=== PATIENT | male | born 1975 | race Caucasian/White ===

== ENCOUNTER → 2020-07-16 09:26 | Outpatient (BNVA) | payer MEDICAID, SELFPAY | PROVIDERS: PCP Internal Medicine; Visit Provider Physician Assistant | DX: K62.5 Hemorrhage of anus and rectum (principal); K59.09 Other constipation; B19.20 Unspecified viral hepatitis C without hepatic coma | CPT/HCPCS: 99212 ==

== ENCOUNTER 2020-07-17 11:42 | Outpatient (REF) | payer MEDICAID, SELFPAY ==
--- NOTE | ~2020-07-17 | XR_ITS ---
EXAMINATION: XR ABDOMEN KUB CLINICAL INDICATION: Abdominal distention COMPARISON: None TECHNIQUE: AP view of the abdomen. FINDINGS: There is stool throughout the colon suggestive of severe constipation. There are no dilated loops of bowel to suggest obstruction. There is no evidence of free air. No calcifications are seen. Bony structures are unremarkable. XR/XR KUB IMPRESSION: Severe constipation.
[2020-07-17 14:05] LABS: MANUAL DIFF FLAG NO
[2020-07-17 14:09] LABS: Basophils Absolute Auto 0.1 X10*3/uL (0.0-0.2); Basophils Percent Auto 0.7 % (0-2); Eosinophils Absolute Auto 0.2 X10*3/uL (0.0-0.4); Eosinophils Percent Auto 2.7 % (0-4); Hematocrit 46.2 % (42-52); Hemoglobin 15.5 g/dl (14.0-18.0); Imm Gran Abs Auto 0.04 X10*3/uL (0.00-0.03); Imm Gran Pct Auto 0.5 % (0.0-0.4); Lymphocytes Absolute Auto 2.4 X10*3/uL (1.2-4.9); Mean Corpuscular HGB Conc 33.5 g/dl (31.0-36.0); Mean Corpuscular Hemoglobin 28.8 pg (27.0-33.0); Mean Corpuscular Volume 85.7 fL (80-98); Mean Platelet Volume 10.1 fL (9.4-12.4); Monocytes Absolute Auto 0.7 X10*3/uL (0.1-1.2); Monocytes Percent Auto 8.8 % (2-11); Neutrophils Absolute Auto 4.8 X10*3/uL (2.0-8.3); Neutrophils Percent Auto 58.3 % (45-73); Platelet Count 276 X10*3/uL (160-400); Red Blood Count 5.39 X10*6/uL (4.60-5.80); Red Cell Distribution Width 13.7 % (11.0-16.0); White Blood Count 8.2 X10*3/uL (4.8-10.8)
[2020-07-17 14:42] LABS: Alanine Aminotransferase 43 U/L (0-40); Albumin Level 4.1 g/dL (3.5-5.0); Alkaline Phosphatase 88 U/L (39-117); Anion Gap 15 (12-20); Aspartate Amino Transferase 35 U/L (5-37); Blood Urea Nitrogen 21 mg/dL (9-16); Calcium 8.8 mg/dL (8.4-10.2); Carbon Dioxide 23 mmol/L (22-29); Chloride 106 mmol/L (96-108); Estimated Glomerular Filt Rate > 60; Glucose Random 81 mg/dL (60-115); Potassium 4.7 mmol/L (3.3-5.1); Sodium 139 mmol/L (135-145); Total Protein 7.9 g/dL (6.5-8.0)
[2020-07-17 15:04] LABS: Thyroid Stimulating Hormone 0.83 uIU/mL (0.32-4.0)
[2020-07-19 08:06] LABS: HCV Log PCR 6.45 Log IU/mL (NOT DETECTED); HepC Viral Load 2800000 IU/mL (NOT DETECTED)
[2020-07-21 21:36] LABS: Hepatitis C Genotype 1a
== END 2020-07-17 11:43 | disposition home or self-care (01) ==
LOC: HO.XRAY 11:42
PROVIDERS: PCP Internal Medicine; Visit Provider Physician Assistant
DX: R10.11 Right upper quadrant pain (principal); R74.01 Elevation of levels of liver transaminase levels; B19.20 Unspecified viral hepatitis C without hepatic coma; K59.09 Other constipation; R14.0 Abdominal distension (gaseous)
CPT/HCPCS: 36415; 74018; 80053; 84443; 85025; 86704; 86706; 86709; 86803; 87340; 87522; 87902

== ENCOUNTER → 2020-08-13 10:52 | Outpatient (BNVA) | payer MEDICAID, SELFPAY | PROVIDERS: PCP Internal Medicine; Visit Provider Physician Assistant | DX: K59.09 Other constipation (principal); B19.20 Unspecified viral hepatitis C without hepatic coma | CPT/HCPCS: 99212 ==

== ENCOUNTER → 2020-09-11 08:39 | Outpatient (BNVA) | payer MEDICAID, SELFPAY | PROVIDERS: PCP Internal Medicine; Referring Provider Internal Medicine; Visit Provider Physician Assistant | DX: B19.20 Unspecified viral hepatitis C without hepatic coma (principal); I10 Essential (primary) hypertension; H53.9 Unspecified visual disturbance | CPT/HCPCS: 99212 ==

== ENCOUNTER 2020-09-11 09:26 | Emergency (ER) | payer MEDICAID, SELFPAY ==
--- NOTE | ~2020-09-11 | CT_ITS ---
EXAMINATION: CT HEAD WITHOUT CONTRAST CLINICAL INFORMATION: Headache with hypertension x1 week COMPARISON: None TECHNIQUE: Contiguous axial imaging was performed from the skull base to vertex without intravenous administration of contrast. This CT examination was performed using dose optimization techniques as appropriate, variously including the following: *Automated exposure control *Adjustment of mA and/or kV according to patient size (this includes techniques or standardized protocols for targeted exams where dose is matched to indication/reason for exam; i.e. extremities or head) *Use of iterative reconstruction technique DLP: Shotty to 6 mGy-cm FINDINGS: There is no evidence of acute intracranial hemorrhage or territorial infarction. No abnormal mass effect or midline shift is seen. Jackson to white matter differentiation is well preserved. No extra-axial fluid collections are identified. The lateral ventricles are symmetrical in size when mildly enlarged. The jackson to white matter differentiation is maintained normal. The osseous structures and soft tissues are normal. The mastoid air cells and visualized portions of the paranasal sinuses are well aerated. CT/CT head/brain wo con IMPRESSION: No acute intracranial process seen.
--- NOTE | ~2020-09-11 | XR_ITS ---
EXAMINATION: XR CHEST CLINICAL INFORMATION: Headache and hypertension COMPARISON: Previous chest x-ray most recent May 2018 TECHNIQUE: Frontal view of the chest was obtained. FINDINGS: The cardiac and mediastinal contours are normal. The lungs are clear. There is no pleural effusion or pneumothorax. Bony structures are normal. XR/XR chest 1V IMPRESSION: Unremarkable examination.
[2020-09-11 09:43] VITALS: BP 158/115; PULSE 77; RESP 16; TEMP 36.9; O2SAT 96; BMI 27.3
[2020-09-11 10:41] VITALS: BP 162/109; PULSE 69; RESP 19; TEMP 36.6; O2SAT 95
--- NOTE | 2020-09-11 10:52 | PC.NURSE ---
Pt alert, oriented, neuros intact, reports heading x1 wk, Sent to ed by GI doctor for elevated BP. Current BP 162/109. Patient resting quietly awaiting ED provider.
[2020-09-11 11:24] LABS: MANUAL DIFF FLAG NO
[2020-09-11 11:25] LABS: Basophils Absolute Auto 0.1 X10*3/uL (0.0-0.2); Basophils Percent Auto 0.9 % (0-2); Eosinophils Absolute Auto 0.3 X10*3/uL (0.0-0.4); Eosinophils Percent Auto 4.7 % (0-4); Hematocrit 47.6 % (42-52); Imm Gran Abs Auto 0.03 X10*3/uL (0.00-0.03); Imm Gran Pct Auto 0.4 % (0.0-0.4); Lymphocytes Percent Auto 28.2 % (20-40); Mean Corpuscular HGB Conc 33.6 g/dl (31.0-36.0); Mean Corpuscular Hemoglobin 29.5 pg (27.0-33.0); Mean Corpuscular Volume 87.7 fL (80-98); Mean Platelet Volume 10.2 fL (9.4-12.4); Monocytes Absolute Auto 0.6 X10*3/uL (0.1-1.2); Monocytes Percent Auto 8.6 % (2-11); Neutrophils Percent Auto 57.2 % (45-73); Platelet Count 243 X10*3/uL (160-400); Red Blood Count 5.43 X10*6/uL (4.60-5.80); Red Cell Distribution Width 15.3 % (11.0-16.0)
[2020-09-11] MEDS: Butalb/Acetamin/Caff 50/325/40 TABLET 2 TAB PO (11:52)
[2020-09-11 11:53] LABS: Anion Gap 13 (12-20); Blood Urea Nitrogen 14 mg/dL (9-16); Calcium 9.4 mg/dL (8.4-10.2); Carbon Dioxide 27 mmol/L (22-29); Chloride 106 mmol/L (96-108); Estimated Glomerular Filt Rate > 60; Glucose Random 84 mg/dL (60-115); Potassium 4.2 mmol/L (3.3-5.1); Sodium 142 mmol/L (135-145)
--- NOTE | 2020-09-11 11:54 | ECG_ITS ---
Test Reason : GENERAL MEDICINE Blood Pressure : / mmHG Vent. Rate : 058 BPM Atrial Rate : 058 BPM P-R Int : 176 ms QRS Dur : 096 ms QT Int : 426 ms P-R-T Axes : 041 015 028 degrees QTc Int : 418 ms Sinus bradycardia Minimal voltage criteria for LVH, may be normal variant Borderline ECG When compared with ECG of 08-AUG-2019 10:40, No significant change was found Referred By: Ani Osei Electronically Signed By:FERNANDA JUSTICE MD
[2020-09-11 12:09] VITALS: BP 178/104; PULSE 73
[2020-09-11] MEDS: lisinopriL 5 MG TABLET PO (12:09)
[2020-09-11 12:51] VITALS: BP 166/99; PULSE 64; RESP 20; O2SAT 97
[2020-09-11 13:22] VITALS: BP 159/95; PULSE 60; RESP 18; O2SAT 98
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
== END 2020-09-11 14:55 | disposition home or self-care (01) ==
PROVIDERS: Emergency Provider Emergency Medicine Emergency Medical Services; PCP Internal Medicine
DX: R51.9 Headache, unspecified (principal); F33.1 Major depressive disorder, recurrent, moderate; I10 Essential (primary) hypertension; H53.8 Other visual disturbances; Z79.899 Other long term (current) drug therapy; Z87.891 Personal history of nicotine dependence
CPT/HCPCS: 36415; 70450; 71045; 80048; 85025; 93005; 99284; 99285

== ENCOUNTER 2020-09-17 13:00 | Emergency (ER) | payer MEDICAID, SELFPAY ==
--- NOTE | ~2020-09-17 | XR_ITS ---
EXAMINATION: XR CHEST CLINICAL INFORMATION: Chest pain COMPARISON: Chest 09/11/2020 TECHNIQUE: Frontal view of the chest was obtained. FINDINGS: The lungs are well-expanded with platelike atelectasis left CP angle. Heart size and pulmonary vascularity is normal. No gross bony abnormality seen. XR/XR chest 1V IMPRESSION: Platelike atelectasis left CP angle. Otherwise unremarkable chest exam.
[2020-09-17 13:22] VITALS: BP 153/108; PULSE 74; RESP 16; TEMP 36.6; O2SAT 97; BMI 26.4
[2020-09-17 13:26] VITALS: BP 153/107; PULSE 68
--- NOTE | 2020-09-17 13:42 | ECG_ITS ---
Test Reason : CHEST PAIN Blood Pressure : / mmHG Vent. Rate : 067 BPM Atrial Rate : 067 BPM P-R Int : 162 ms QRS Dur : 096 ms QT Int : 404 ms P-R-T Axes : 040 013 020 degrees QTc Int : 426 ms Normal sinus rhythm Minimal voltage criteria for LVH, may be normal variant Borderline ECG When compared with ECG of 11-SEP-2020 12:35, No significant change was found Referred By: Noemí Lovett Electronically Signed By:FERMÍN SANTACRUZ
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
[2020-09-17 14:31] VITALS: BP 171/122; PULSE 75
[2020-09-17] MEDS: lisinopriL 20 MG TABLET PO (14:31)
[2020-09-17] MEDS: Ketorolac Tromethamine 60 MG/2 ML VIAL IM (14:32)
[2020-09-17 14:33] LABS: Imm Gran Abs Auto 0.03 X10*3/uL (0.00-0.03); Imm Gran Pct Auto 0.4 % (0.0-0.4); MANUAL DIFF FLAG SCAN; PLT CLUMP 1; Red Blood Count 5.62 X10*6/uL (4.60-5.80); SCAN SMEAR FLAG 1
[2020-09-17 14:35] LABS: Basophils Absolute Auto 0.1 X10*3/uL (0.0-0.2); Eosinophils Absolute Auto 0.2 X10*3/uL (0.0-0.4); Eosinophils Percent Auto 2.2 % (0-4); Hematocrit 49.8 % (42-52); Hemoglobin 16.5 g/dl (14.0-18.0); Lymphocytes Absolute Auto 2.2 X10*3/uL (1.2-4.9); Mean Corpuscular HGB Conc 33.1 g/dl (31.0-36.0); Mean Corpuscular Hemoglobin 29.4 pg (27.0-33.0); Mean Corpuscular Volume 88.6 fL (80-98); Monocytes Absolute Auto 0.6 X10*3/uL (0.1-1.2); Monocytes Percent Auto 7.1 % (2-11); Neutrophils Absolute Auto 5.3 X10*3/uL (2.0-8.3); Neutrophils Percent Auto 63.3 % (45-73); Red Cell Distribution Width 15.2 % (11.0-16.0); White Blood Count 8.3 X10*3/uL (4.8-10.8)
[2020-09-17 14:52] LABS: Anion Gap 16 (12-20); Blood Urea Nitrogen 12 mg/dL (9-16); Calcium 10.1 mg/dL (8.4-10.2); Carbon Dioxide 22 mmol/L (22-29); Chloride 106 mmol/L (96-108); Estimated Glomerular Filt Rate > 60; Glucose Random 84 mg/dL (60-115); Potassium 4.1 mmol/L (3.3-5.1); Sodium 140 mmol/L (135-145)
[2020-09-17 14:57] LABS: SLIDE REVIEW VERIFIED; Troponin-I High Sensitivity 8.6 ng/L (<3.5-35.0)
[2020-09-17 15:55] VITALS: BP 177/112; PULSE 79
[2020-09-17] MEDS: Metoprolol Succinate ER 100 MG TAB.ER.24H PO (15:55)
[2020-09-17 16:09] VITALS: BP 156/99; PULSE 70; RESP 16; O2SAT 96
== END 2020-09-17 16:49 | disposition home or self-care (01) ==
PROVIDERS: Nurse Practitioner Family; Emergency Provider Emergency Medicine; PCP Internal Medicine
DX: I10 Essential (primary) hypertension (principal); R07.9 Chest pain, unspecified; R51.9 Headache, unspecified; B19.20 Unspecified viral hepatitis C without hepatic coma; Z79.899 Other long term (current) drug therapy
CPT/HCPCS: 36415; 71045; 80048; 84484; 85025; 93005; 96372; 96374; 99284; J1885

== ENCOUNTER 2020-09-30 09:39 | Outpatient (REF) | payer MEDICAID, SELFPAY ==
--- NOTE | ~2020-09-30 | US_ITS ---
EXAMINATION: US ABDOMEN LIMITED WITH LIVER ELASTOGRAPHY CLINICAL INFORMATION: Unspecified hepatitis C without hepatic coma, B19.20. COMPARISON: Ultrasound abdomen 11/23/2011. TECHNIQUE: Real-time imaging of the abdominal viscera. Noninvasive ultrasound liver fibrosis assessment is performed using Marci ElastPQ point quantification shear wave elastography (pSWE) with a C5-2 MHz transducer. Multiple elastography samples are obtained. FINDINGS: PANCREAS: The pancreas is obscured by overlying gas. LIVER: The liver demonstrates normal size, contour and echogenicity. No focal lesion or intrahepatic biliary duct dilatation. The right lobe measures 16.1 cm in length. The left lobe measures 10.2 cm in length. Portal flow is hepatopedal. Shear wave liver elastography median stiffness is 1.17 m/s (reference: Normal median stiffness is 1.3 m/s or less). IQR/median stiffness to assess sampling precision is 0.06 (reference: Good quality data set is IQR/median stiffness of 0.15 or less). GALLBLADDER: Normal. The gallbladder is physiologically distended without evidence of stones, sludge, polyps, wall thickening or pericholecystic fluid. COMMON BILE DUCT: Normal in caliber measuring 0.4 cm in diameter. RIGHT KIDNEY: No hydronephrosis. There is an echogenic nonobstructive 0.4 cm calculus without caliectasis. No additional lesions are seen. The kidney measures 10.8 cm in maximum dimension. LEFT KIDNEY: There is no hydronephrosis. There is normal left renal cortex thickness. Kidney measures 11.3 cm in length. No echogenic stones, cysts or hydronephrosis is seen. SPLEEN: Spleen measures 10.7 cm in length and appears unremarkable. FREE FLUID: None. US/US abdomen [place] w elastography IMPRESSION: Normal hepatic echogenicity without focal lesion. Nonobstructive echogenic stone upper pole right kidney. Pancreas is not seen well. LIVER ELASTOGRAPHY: Median stiffness measures 1.17 cm and is normal. REFERENCE: Society of Radiologists in Ultrasound Liver Stiffness Thresholds (2020): LIVER STIFFNESS THRESHOLDS: *Liver Stiffness equal or less than 1.3 m/s: High probability of being normal. *Liver Stiffness less than 1.7 m/s: In the absence of other known clinical signs, rules out compensated advanced chronic liver disease. *Liver Stiffness 1.7-2.1 m/s: Suggestive of compensated advanced chronic liver disease but need further test for confirmation. *Liver Stiffness over 2.1 m/s: Rules in compensated advanced chronic liver disease. *Liver Stiffness over 2.4 m/s: Suggestive of clinically significant portal hypertension. QUALITY OF DATA SET: *IQR/Median value equal or less than 0.15 implies a quality data set. *IQR/Median value over 0.15 implies a poor quality data set. SIGNIFICANT CHANGE FROM PRIOR EXAM: Significant change if liver stiffness measurement is 10% or greater from prior exam. OTHER CONSIDERATIONS: The stage of liver fibrosis may be overestimated in the setting of acute hepatitis, liver inflammation, elevated liver function tests, hepatic vascular congestion, obstructive cholestasis, non-fasting state, and infiltrative diseases such as amyloidosis and lymphoma. In some patients with NAFLD, the liver stiffness thresholds for compensated advanced chronic liver disease may be lower. In causes other than viral hepatitis and NAFLD, liver stiffness thresholds are not well established.
== END 2020-09-30 09:40 | disposition home or self-care (01) ==
LOC: HO.US 09:39
PROVIDERS: Visit Provider Physician Assistant
DX: B19.20 Unspecified viral hepatitis C without hepatic coma (principal)
CPT/HCPCS: 76705; 76981

== ENCOUNTER → 2020-10-21 08:58 | Outpatient (BNVA) | payer MEDICAID, SELFPAY | PROVIDERS: PCP Internal Medicine; Referring Provider Internal Medicine; Visit Provider Physician Assistant | DX: B19.20 Unspecified viral hepatitis C without hepatic coma (principal); K21.9 Gastro-esophageal reflux disease without esophagitis | CPT/HCPCS: 99212 ==

== ENCOUNTER 2020-10-22 10:52 | Outpatient (REF) | payer MEDICAID, SELFPAY ==
[2020-10-23 08:23] LABS: HBS Num1 81.99 mIU/mL (0-7.99); HBc Num1 0.76 S/CO (0.00-0.79); HBsAGNum1 0.29 S/CO (0.00-0.99); Hepatitis A Antibody IgM 0.62 Index (0-0.79); Hepatitis B Core Antibody Nonreactive (Nonreactive); Hepatitis B Surface Antigen Negative (Negative); ~Hepatitis A Antibody IgM Nonreactive (Nonreactive); ~Hepatitis B Surface Antibody REACTIVE (Nonreactive)
[2020-10-23 08:44] LABS: ~HepC Num1 16.92 S/CO (0.00-0.79); ~Hepatitis C Antibody Reactive (Nonreactive)
[2020-10-25 11:31] LABS: HCV Log PCR 6.55 Log IU/mL (NOT DETECTED); HepC Viral Load 3520000 IU/mL (NOT DETECTED)
[2020-10-30 19:28] LABS: FIB-ALT 53 U/L (9-46); FIB-Alpha-2-Macroglobulin 310 mg/dL (106-279); FIB-Apolipoprotein A1 140 mg/dL (94-176); FIB-GGT 45 U/L (3-95); FIB-Haptoglobin 131 mg/dL (43-212); FIB-Total Bilirubin 0.4 mg/dL (0.2-1.2); Liver Fibrosis Stage F1-F2; Nec Inflam Act Grade A1; Nec Inflam Act Score 0.34
== END 2020-10-22 10:53 | disposition home or self-care (01) ==
LOC: HO.LAB 10:52
PROVIDERS: PCP Internal Medicine; Visit Provider Physician Assistant
DX: Z01.84 Encounter for antibody response examination (principal); Z11.59 Encounter for screening for other viral diseases; B19.20 Unspecified viral hepatitis C without hepatic coma; R79.89 Other specified abnormal findings of blood chemistry
CPT/HCPCS: 36415; 81596; 86704; 86706; 86709; 86803; 87340; 87522

== ENCOUNTER 2020-12-03 09:20 | Emergency (ER) | payer MEDICAID, SELFPAY ==
--- NOTE | ~2020-12-03 | US_ITS ---
EXAMINATION: US SCROTUM CLINICAL INFORMATION: Bilateral scrotal pain. COMPARISON: CT scan of same day TECHNIQUE: A sonogram of the scrotum was performed assessing stoner-scale appearance and color Doppler flow. Spectral Doppler analysis of the arterial and venous flow were performed in the testes bilaterally. FINDINGS: RIGHT: Right testicle measures 5.4 x 3.0 x 2.7 cm, volume 2.3 mL. No focal testicular parenchymal lesions are visualized. Spectral Doppler analysis of the arterial and venous flow is normal in the right testis. Right epididymal head is normal in size. No right hydrocele or varicocele is seen. Right epididymal Doppler flow is mildly increased. LEFT: Left testicle measures 5.1 x 2.9 x 3.0 cm, volume 24 mL. No focal testicular parenchymal lesions are visualized. Spectral Doppler analysis of the arterial and venous flow is normal in the left testis. Left epididymal head is normal in size. No left hydrocele or varicocele is seen. Left epididymal Doppler flow is mildly increased US/US scrotum doppler IMPRESSION: Normal testicles bilaterally. Mildly increased vascularity within the epididymal tails bilaterally suggestive of acute epididymitis.
--- NOTE | ~2020-12-03 | CT_ITS ---
EXAMINATION: CT ABDOMEN AND PELVIS WITHOUT CONTRAST CLINICAL INFORMATION: Left flank/abdominal pain. COMPARISON: None TECHNIQUE: Multidetector volumetric imaging was performed from the superior aspect of the liver through the pubic symphysis. Sagittal and coronal reformatted images were obtained on the technologist's workstation. This CT examination was performed using dose optimization techniques as appropriate, variously including the following: *Automated exposure control *Adjustment of mA and/or kV according to patient size (this includes techniques or standardized protocols for targeted exams where dose is matched to indication/reason for exam; i.e. extremities or head) *Use of iterative reconstruction technique DLP: 657 mGy-cm FINDINGS: LUNG BASES: There is a left basilar and lingular atelectasis and/or scarring. LIVER, GALLBLADDER, AND BILIARY TREE: The liver is normal in size, shape, and attenuation. No focal hepatic lesion or biliary ductal dilatation is present. The gallbladder is unremarkable with no evidence of radiopaque gallstones, gallbladder wall thickening, or obvious pericholecystic inflammatory changes. PANCREAS: Unremarkable. SPLEEN: Unremarkable. ADRENAL GLANDS: Unremarkable. KIDNEYS AND URETERS: The kidneys are normal in size, shape, and attenuation. There is a 7 mm nonobstructive radiopaque calculi mid pole calyx right kidney. In addition there are 2 mm radiopaque calculi upper pole, 6 mm mid pole and 2 mm lower pole right kidney calculi without caliectasis. There is nonobstructive 4 mm radiopaque calculi upper, 4 mm lower pole left renal calculi without caliectasis or hydronephrosis. There is no ureteral dilatation. BLADDER: Unremarkable. GASTROINTESTINAL TRACT: There are scattered diverticuli in the sigmoid colon with a residual oral contrast. Scattered stool is seen in the right colon without distention. The small bowel loops are normal caliber. Appendix is not visualized. No inflammatory process seen in the abdomen. There is no free air or free fluid. ABDOMINAL WALL: A small amount of hernia containing fat is present LYMPH NODES: There are small precaval 8 mm and 1 cm lymph nodes on axial image 23/3 and axial image 26/3. The IVC is significantly narrowed in the infrahepatic segment.. VASCULAR: Unremarkable. PELVIC VISCERA: The prostate gland is normal size. The periprostatic gland planes are preserved. No abnormal lymph nodes seen. OSSEOUS STRUCTURES: There are degenerative disc changes with vacuum disc phenomenon and spondylosis L5-S1 disc level. No lytic process. CT/CT abdomen pelvis wo con IMPRESSION: Nonobstructive bilateral radiopaque renal calculi no hydronephrosis. Scattered sigmoid diverticulosis without diverticulitis. Small precaval infrahepatic segment lymph nodes of unknown etiology. Degenerative disc changes with spondylosis L5-S1 disc level.
--- NOTE | ~2020-12-03 | US_ITS ---
EXAMINATION: US SCROTUM CLINICAL INFORMATION: Bilateral scrotal pain. COMPARISON: CT scan of same day TECHNIQUE: A sonogram of the scrotum was performed assessing stoner-scale appearance and color Doppler flow. Spectral Doppler analysis of the arterial and venous flow were performed in the testes bilaterally. FINDINGS: RIGHT: Right testicle measures 5.4 x 3.0 x 2.7 cm, volume 2.3 mL. No focal testicular parenchymal lesions are visualized. Spectral Doppler analysis of the arterial and venous flow is normal in the right testis. Right epididymal head is normal in size. No right hydrocele or varicocele is seen. Right epididymal Doppler flow is mildly increased. LEFT: Left testicle measures 5.1 x 2.9 x 3.0 cm, volume 24 mL. No focal testicular parenchymal lesions are visualized. Spectral Doppler analysis of the arterial and venous flow is normal in the left testis. Left epididymal head is normal in size. No left hydrocele or varicocele is seen. Left epididymal Doppler flow is mildly increased US/US scrotum IMPRESSION: Normal testicles bilaterally. Mildly increased vascularity within the epididymal tails bilaterally suggestive of acute epididymitis.
[2020-12-03 10:56] VITALS: BP 148/104; PULSE 70; RESP 16; TEMP 37.1; O2SAT 95; BMI 27.1
[2020-12-03 11:33] LABS: MANUAL DIFF FLAG NO
[2020-12-03 11:38] LABS: Basophils Absolute Auto 0.1 X10*3/uL (0.0-0.2); Basophils Percent Auto 0.8 % (0-2); Eosinophils Absolute Auto 0.2 X10*3/uL (0.0-0.4); Eosinophils Percent Auto 2.9 % (0-4); Hematocrit 42.8 % (42-52); Hemoglobin 14.3 g/dl (14.0-18.0); Imm Gran Abs Auto 0.02 X10*3/uL (0.00-0.03); Imm Gran Pct Auto 0.3 % (0.0-0.4); Lymphocytes Absolute Auto 1.8 X10*3/uL (1.2-4.9); Lymphocytes Percent Auto 27.4 % (20-40); Mean Corpuscular HGB Conc 33.4 g/dl (31.0-36.0); Mean Corpuscular Hemoglobin 29.7 pg (27.0-33.0); Mean Platelet Volume 9.5 fL (9.4-12.4); Monocytes Absolute Auto 0.5 X10*3/uL (0.1-1.2); Monocytes Percent Auto 7.1 % (2-11); Neutrophils Percent Auto 61.5 % (45-73); Platelet Count 275 X10*3/uL (160-400); Red Blood Count 4.81 X10*6/uL (4.60-5.80); Red Cell Distribution Width 14.4 % (11.0-16.0); White Blood Count 6.5 X10*3/uL (4.8-10.8)
[2020-12-03 12:04] LABS: Alanine Aminotransferase 49 U/L (0-40); Albumin Level 4.3 g/dL (3.5-5.0); Alkaline Phosphatase 73 U/L (39-117); Anion Gap 12 (12-20); Aspartate Amino Transferase 40 U/L (5-37); Bilirubin Total 0.7 mg/dL (0.0-1.0); Blood Urea Nitrogen 19 mg/dL (9-16); Calcium 9.4 mg/dL (8.4-10.2); Carbon Dioxide 23 mmol/L (22-29); Chloride 109 mmol/L (96-108); Estimated Glomerular Filt Rate > 60; Glucose Random 89 mg/dL (60-115); Potassium 4.1 mmol/L (3.3-5.1); Sodium 140 mmol/L (135-145); Total Protein 7.8 g/dL (6.5-8.0)
[2020-12-03] MEDS: Ketorolac Tromethamine 15 MG/ML VIAL 30 MG IM (12:30)
[2020-12-03] MEDS: Morphine Sulfate 4 MG/ML CARTRIDGE IM (12:30)
[2020-12-03] MEDS: Ondansetron ODT 4 MG TAB.RAPDIS TRANSLINGU (12:30)
--- NOTE | 2020-12-03 12:37 | PC.NURSE ---
patient medicated for 10/10 lt abd/back pain per order, urine obtained, will continue to monitor.
[2020-12-03 12:48] LABS: Glucose Urine UA NEG (NEG); Leukocyte Esterase Urine NEG (NEG); Nitrite Urine NEG (NEG); Specific Gravity - Urine <= 1.005 (1.005-1.025); Urine Blood NEG (NEG); Urine Ketones NEG (NEG); Urine Protein NEG (NEG-TRACE)
[2020-12-03 12:50] LABS: Appearance Urine CLEAR; Color Urine YELLOW
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
[2020-12-03 13:15] LABS: Amphetamine Screen Urine Not Detected (Not Detect); Barbiturates, Urine Not Detected (Not Detect); Benzodiazepines Screen Urine Not Detected (Not Detect); Cannabinoid Screen Urine Not Detected (Not Detect); Cocaine Screen Urine Not Detected (Not Detect); Opiate Screen Urine Not Detected (Not Detect); Phencyclidine Screen Urine Not Detected (Not Detect)
--- NOTE | 2020-12-03 13:15 | ED.ABDPAIN ---
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 Tobacco Use of substances other than those prescribed or required for medical reasons: No Advance Directives: Yes Advance Directives Information Provided: Yes Advance Directives on File: No Current occupational status: disabled <DEANA Barnes - Last Filed: 12/03/20 17:19>
[2020-12-03 13:20] VITALS: BP 151/101; PULSE 59; RESP 16; TEMP 36.8; O2SAT 97
[2020-12-03 16:46] VITALS: BP 154/97; PULSE 72; RESP 16; TEMP 36.8; O2SAT 96
[2020-12-03] MEDS: cefTRIAXone sodium 500 MG, Lidocaine HCl 1 % MPF 1 ML IM (17:27)
[2020-12-04 10:16] LABS: CT PCR NOT DETECTED (Not Detect.); NG PCR NOT DETECTED (Not Detect.)
== END 2020-12-03 17:43 | disposition home or self-care (01) ==
PROVIDERS: Physician Assistant Medical; Emergency Provider Emergency Medicine Emergency Medical Services; PCP Internal Medicine
DX: R10.9 Unspecified abdominal pain (principal); N20.0 Calculus of kidney; K57.30 Diverticulosis of large intestine without perforation or abscess without bleeding; N45.1 Epididymitis; R93.5 Abnormal findings on diagnostic imaging of other abdominal regions, including retroperitoneum; F41.9 Anxiety disorder, unspecified; Z79.899 Other long term (current) drug therapy
CPT/HCPCS: 36415; 74176; 76870; 80053; 80307; 81003; 82248; 85025; 87491; 87591; 93975; 96372; 99284; J0696; J1885; J2270

== ENCOUNTER 2020-12-17 13:56 | Emergency (ER) | payer MEDICAID, SELFPAY ==
--- NOTE | ~2020-12-17 | US_ITS ---
EXAMINATION: US SCROTUM US SCROTUM DOPPLER CLINICAL INFORMATION: Testicular pain. Rule out epididymitis. Testicular pain, rule out torsion. COMPARISON: 12/03/2020 TECHNIQUE: A sonogram of the scrotum was performed assessing stoner-scale appearance and color Doppler flow. Spectral Doppler analysis of the arterial and venous flow were performed in the testes bilaterally. FINDINGS: RIGHT: Right testicle measures 5.3 x 2.3 x 3.5 cm, volume 22 mL. No focal testicular parenchymal lesions are visualized. Spectral Doppler analysis of the arterial and venous flow is normal in the right testis. Right epididymal head is normal in size. Trace right hydrocele. No varicocele is seen. Right epididymal Doppler flow is normal. LEFT: Left testicle measures 5.0 x 2.6 x 3.2 cm, volume 22 mL. No focal testicular parenchymal lesions are visualized. Spectral Doppler analysis of the arterial and venous flow is normal in the left testis. Left epididymal head is normal in size. Trace left hydrocele. No varicocele is seen. Left epididymal Doppler flow is normal. US/US scrotum IMPRESSION: Trace bilateral hydroceles. No findings to suggest epididymitis or testicular torsion.
--- NOTE | ~2020-12-17 | US_ITS ---
EXAMINATION: US SCROTUM US SCROTUM DOPPLER CLINICAL INFORMATION: Testicular pain. Rule out epididymitis. Testicular pain, rule out torsion. COMPARISON: 12/03/2020 TECHNIQUE: A sonogram of the scrotum was performed assessing stoner-scale appearance and color Doppler flow. Spectral Doppler analysis of the arterial and venous flow were performed in the testes bilaterally. FINDINGS: RIGHT: Right testicle measures 5.3 x 2.3 x 3.5 cm, volume 22 mL. No focal testicular parenchymal lesions are visualized. Spectral Doppler analysis of the arterial and venous flow is normal in the right testis. Right epididymal head is normal in size. Trace right hydrocele. No varicocele is seen. Right epididymal Doppler flow is normal. LEFT: Left testicle measures 5.0 x 2.6 x 3.2 cm, volume 22 mL. No focal testicular parenchymal lesions are visualized. Spectral Doppler analysis of the arterial and venous flow is normal in the left testis. Left epididymal head is normal in size. Trace left hydrocele. No varicocele is seen. Left epididymal Doppler flow is normal. US/US scrotum doppler IMPRESSION: Trace bilateral hydroceles. No findings to suggest epididymitis or testicular torsion.
[2020-12-17 14:11] VITALS: BP 136/84; PULSE 64; RESP 16; TEMP 36.8; O2SAT 98; BMI 27.1
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
[2020-12-17 16:22] LABS: Glucose Urine UA NEG (NEG); Leukocyte Esterase Urine NEG (NEG); Nitrite Urine NEG (NEG); Specific Gravity - Urine >= 1.030 (1.005-1.025); UACC Culture Trigger NO; Urine Blood TRACE (NEG); Urine Ketones NEG (NEG); Urine Protein NEG (NEG-TRACE)
[2020-12-17 16:23] LABS: Appearance Urine CLEAR; Color Urine YELLOW
[2020-12-17 16:31] LABS: Bacteria Urine 1+ /LPF; WBC Urine 0 /HPF (0-4)
[2020-12-17] MEDS: Ibuprofen 600 MG TABLET PO (18:06)
[2020-12-18 10:33] LABS: CT PCR NOT DETECTED (Not Detect.); NG PCR NOT DETECTED (Not Detect.)
== END 2020-12-17 18:13 | disposition home or self-care (01) ==
PROVIDERS: Physician Assistant Medical; Emergency Provider Emergency Medicine; PCP Internal Medicine
DX: N50.811 Right testicular pain (principal); N43.3 Hydrocele, unspecified; I10 Essential (primary) hypertension; F41.9 Anxiety disorder, unspecified; B19.20 Unspecified viral hepatitis C without hepatic coma; Z79.899 Other long term (current) drug therapy
CPT/HCPCS: 76870; 81001; 87491; 87591; 93975; 99284

== ENCOUNTER → 2020-12-24 07:35 | Outpatient (BNVA) | payer MEDICAID, SELFPAY | PROVIDERS: PCP Internal Medicine; Visit Provider Physician Assistant ==

== ENCOUNTER 2021-01-01 17:35 | Inpatient (IN) | payer MEDICAID, SELFPAY ==
--- NOTE | ~2021-01-01 | CT_ITS ---
EXAMINATION: CT GI BLEED ABDOMEN/PELVIS WITHOUT AND WITH CONTRAST CLINICAL INFORMATION: Blood in stool. Abdominal pain. COMPARISON: Most recent CT abdomen/pelvis dated 12/03/2020. TECHNIQUE: Contiguous axial CT images of the abdomen and pelvis were obtained before and after the administration of 85 mL Omnipaque 350 IV contrast. Sagittal and coronal reformats were provided and reviewed. This CT examination was performed using dose optimization techniques as appropriate, variously including the following: *Automated exposure control. *Adjustment of mA and/or kV according to patient size (this includes techniques or standardized protocols for targeted exams where dose is matched to indication/reason for exam; i.e. extremities or head). *Use of iterative reconstruction technique. DOSE: 1190 mGy-cm FINDINGS: LUNG BASES: Mild bibasilar atelectasis. LIVER, GALLBLADDER, AND BILIARY TREE: The liver is normal in size, shape, and attenuation. No focal hepatic lesion or biliary ductal dilatation is present. The gallbladder is unremarkable with no evidence of radiopaque gallstones, gallbladder wall thickening, or obvious pericholecystic inflammatory changes. PANCREAS: Unremarkable. SPLEEN: Unremarkable. ADRENAL GLANDS: Unremarkable. KIDNEYS AND URETERS: The kidneys are normal in size, shape, and attenuation. Redemonstration of multiple bilateral renal stones measuring up to 0.7 cm and 1153 Hounsfield units on the right as well as 0.3 cm on the left. No ureteral stone. No hydronephrosis or hydroureter. No perinephric stranding. BLADDER: Unremarkable. GASTROINTESTINAL TRACT: Circumferential wall thickening with associated fat stranding throughout the descending colon, consistent with acute colitis. Mild associated wall enhancement. Hyperdensity within the lumen of the colon in this region on postcontrast images, which could represent wall enhancement versus minimal intraluminal hemorrhage. No evidence of perforation or abscess formation. No small or large bowel obstruction. PERITONEAL CAVITY: No intra-abdominal free air or free fluid. No intra-abdominal mass or organized fluid collection/abscess formation. ABDOMINAL WALL: No significant hernia is appreciated. LYMPH NODES: Redemonstration of multiple periportal lymph nodes, not significantly changed. No new or increasing lymphadenopathy. VASCULAR: No abdominal aortic dilatation or dissection. Unremarkable IVC. Retroaortic left renal vein. PELVIC VISCERA: The prostate and seminal vesicles are unremarkable. OSSEOUS STRUCTURES: Unremarkable. CT/CT gi bleed abd pel wo/w con IMPRESSION: 1. Circumferential wall thickening of the descending colon with associated inflammatory change, consistent with acute colitis. Findings could be related to an infectious or inflammatory etiology. An ischemic process is thought less likely. Hyperdensity on postcontrast imaging associated with the lumen in this region, which may be related to post contrast-enhancement. Intraluminal bladder blood products could also be considered. No evidence of perforation or abscess formation. 2. Multiple bilateral renal stones appear similar when compared to the prior examination. No ureteral stone. No hydronephrosis or hydroureter. 3. Redemonstration of prominent periportal lymph nodes, unchanged. No new or increasing lymphadenopathy.
[2021-01-01 18:03] VITALS: BP 141/89; PULSE 75; RESP 18; TEMP 37; O2SAT 97; BMI 22.2
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
[2021-01-01 20:23] VITALS: BP 127/87; PULSE 62; RESP 16; TEMP 37; O2SAT 96
--- NOTE | 2021-01-01 20:53 | ECG_ITS ---
Test Reason : GI BLEED Blood Pressure : / mmHG Vent. Rate : 071 BPM Atrial Rate : 071 BPM P-R Int : 166 ms QRS Dur : 098 ms QT Int : 394 ms P-R-T Axes : 046 029 015 degrees QTc Int : 428 ms Normal sinus rhythm Minimal voltage criteria for LVH, may be normal variant Borderline ECG When compared with ECG of 17-SEP-2020 13:58, No significant change was found Referred By: Marla Valladares Electronically Signed By:DAVID NELSON
[2021-01-01 21:06] LABS: MANUAL DIFF FLAG NO
[2021-01-01 21:08] LABS: Basophils Absolute Auto 0.1 X10*3/uL (0.0-0.2); Basophils Percent Auto 0.6 % (0-2); Eosinophils Absolute Auto 0.2 X10*3/uL (0.0-0.4); Eosinophils Percent Auto 2.2 % (0-4); Hematocrit 43.4 % (42-52); Hemoglobin 14.3 g/dl (14.0-18.0); Imm Gran Abs Auto 0.02 X10*3/uL (0.00-0.03); Imm Gran Pct Auto 0.3 % (0.0-0.4); Lymphocytes Absolute Auto 2.2 X10*3/uL (1.2-4.9); Lymphocytes Percent Auto 28.6 % (20-40); Mean Corpuscular HGB Conc 32.9 g/dl (31.0-36.0); Mean Corpuscular Hemoglobin 29.9 pg (27.0-33.0); Mean Corpuscular Volume 90.8 fL (80-98); Mean Platelet Volume 9.7 fL (9.4-12.4); Monocytes Absolute Auto 0.7 X10*3/uL (0.1-1.2); Monocytes Percent Auto 8.6 % (2-11); Neutrophils Absolute Auto 4.7 X10*3/uL (2.0-8.3); Neutrophils Percent Auto 59.7 % (45-73); Platelet Count 244 X10*3/uL (160-400); Red Blood Count 4.78 X10*6/uL (4.60-5.80); Red Cell Distribution Width 13.6 % (11.0-16.0); White Blood Count 7.8 X10*3/uL (4.8-10.8)
[2021-01-01] MEDS: 0.9 % Sodium Chloride 1,000 ML 999 ML IVCONT (21:08)
[2021-01-01 21:14] LABS: INTERNATIONAL NORM RATIO 1.1 (0.9-1.1); Prothrombin Time 12.9 SEC (9.9-13.0)
[2021-01-01 21:25] LABS: Alanine Aminotransferase 46 U/L (0-40); Albumin Level 4.4 g/dL (3.5-5.0); Alkaline Phosphatase 84 U/L (39-117); Anion Gap 14 (12-20); Aspartate Amino Transferase 36 U/L (5-37); Bilirubin Direct 0.4 mg/dL (0.0-0.5); Bilirubin Total 0.9 mg/dL (0.0-1.0); Blood Urea Nitrogen 20 mg/dL (9-16); Calcium 9.5 mg/dL (8.4-10.2); Carbon Dioxide 26 mmol/L (22-29); Chloride 104 mmol/L (96-108); Creatinine Clr Calc Pharmacy 82.7; Estimated Glomerular Filt Rate > 60; Glucose Random 93 mg/dL (60-115); Lipase 15 U/L (8-78); Potassium 4.2 mmol/L (3.3-5.1); Sodium 140 mmol/L (135-145); Total Protein 7.7 g/dL (6.5-8.0)
[2021-01-01 21:29] LABS: Troponin-I High Sensitivity < 3.5 ng/L (<3.5-35.0)
[2021-01-01] MEDS: iohexoL 350 MG/ML 100 ML INFUS..BTL IV (21:50)
[2021-01-01 22:20] VITALS: BP 132/83; PULSE 63; RESP 16; TEMP 37.4; O2SAT 96
[2021-01-02] VITALS (13 sets, daily range): BP systolic 87–151; BP diastolic 52–104; PULSE 60–84; RESP 15–18; TEMP 36.4–36.8; O2SAT 93–98
[2021-01-02] MEDS: cefTRIAXone sodium 1 GM in 0.9 % Sodium Chloride 50 ML IV ×2 (00:11→23:07)
[2021-01-02] MEDS: metroNIDAZOLE/NS 500 MG/100 ML PIGGYBACK 100 MG IV ×4 (00:11→23:40)
[2021-01-02] MEDS: ondansetron HCL 4 MG/2 ML VIAL IVPUSH ×3 (00:11→13:08)
[2021-01-02 00:12] LABS: COVID-19 Test Negative (Negative); IDNOW Serial# 9DD0AD1C
[2021-01-02 01:08] LABS: Lactic Acid 1.2 mmol/L (0.5-2.0)
[2021-01-02] MEDS: Morphine Sulfate 4 MG/ML CARTRIDGE IVPUSH ×5 (01:13→21:26)
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
[2021-01-02] MEDS: Pantoprazole Sodium 40 MG/10 ML VIAL IVPUSH ×2 (05:59→17:05)
[2021-01-02 07:23] LABS: Basophils Absolute Auto 0.1 X10*3/uL (0.0-0.2); Basophils Percent Auto 0.8 % (0-2); MANUAL DIFF FLAG SCAN; Mean Platelet Volume 10.5 fL (9.4-12.4); PLT CLUMP 1; Red Cell Distribution Width 13.3 % (11.0-16.0); SCAN SMEAR FLAG 1
[2021-01-02 07:24] LABS: Eosinophils Absolute Auto 0.2 X10*3/uL (0.0-0.4); Eosinophils Percent Auto 2.3 % (0-4); Hematocrit 44.1 % (42-52); Hemoglobin 14.7 g/dl (14.0-18.0); Imm Gran Abs Auto 0.04 X10*3/uL (0.00-0.03); Imm Gran Pct Auto 0.5 % (0.0-0.4); Lymphocytes Absolute Auto 1.6 X10*3/uL (1.2-4.9); Lymphocytes Percent Auto 20.4 % (20-40); Mean Corpuscular HGB Conc 33.3 g/dl (31.0-36.0); Mean Corpuscular Hemoglobin 30.1 pg (27.0-33.0); Mean Corpuscular Volume 90.4 fL (80-98); Monocytes Absolute Auto 0.7 X10*3/uL (0.1-1.2); Monocytes Percent Auto 9.2 % (2-11); Neutrophils Absolute Auto 5.2 X10*3/uL (2.0-8.3); Neutrophils Percent Auto 66.8 % (45-73); Platelet Count 174 X10*3/uL (160-400); Red Blood Count 4.88 X10*6/uL (4.60-5.80); White Blood Count 7.8 X10*3/uL (4.8-10.8)
[2021-01-02 07:44] LABS: SLIDE REVIEW VERIFIED
[2021-01-02 07:56] LABS: Anion Gap 16 (12-20); Blood Urea Nitrogen 18 mg/dL (9-16); Carbon Dioxide 20 mmol/L (22-29); Chloride 107 mmol/L (96-108); Creatinine Clr Calc Pharmacy 98.3; Estimated Glomerular Filt Rate > 60; Glucose Random 91 mg/dL (60-115); Potassium 4.7 mmol/L (3.3-5.1); Sodium 138 mmol/L (135-145)
[2021-01-02 08:08] LABS: Calcium 8.8 mg/dL (8.4-10.2)
--- NOTE | 2021-01-02 08:47 | PHA.MEDREC ---
Pharmacy Consult ? Medication Reconciliation Pharmacy has completed the medication reconciliation. Patient unsure of the medication he takes. I was able to contact the nursing company that helps the patient with his medication. They did not have record of Amitiza (lubiprostone) however the medication was recently picked up from [facility] on 12/20/2020. Stacey aPtterson, VincentD
[2021-01-02] MEDS: buPROPion HCl XL 150 MG TAB.ER.24H 450 MG PO (11:00)
[2021-01-02] MEDS: hydroCHLOROthiazide 25 MG TABLET 50 MG PO (11:53)
[2021-01-02] MEDS: lisinopriL 40 MG TABLET PO (11:54)
[2021-01-02] MEDS: amLODIPine Besylate 5 MG TABLET PO (11:54)
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
--- NOTE | 2021-01-02 12:00 | PC.NURSE ---
pharmacy called for naltrexone
[2021-01-02] MEDS: Lactated Ringers 1,000 ML 100 ML IVCONT ×2 (13:15→17:01)
--- NOTE | 2021-01-02 13:18 | PC.NURSE ---
report given to chester PAUL
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
--- NOTE | 2021-01-02 14:12 | P.BOP_ITS ---
Brief Operative Note Date of Service: 01/02/21 Pre-op diagnosis: LLQ pain, diarrhea, rectal bleeding, abnormal CT scan of the colon Post-op diagnosis: other (Left sided colitis, diverticulosis, non-bleeding hemorrhoids) Procedure: FLEXIBLE SIGMOIDOSCOPY PROCEDURE NOTE Consent: Indications for the procedure and potential complications of bleeding, perforation, reaction to medications and missed diagnosis were discussed with the patient and informed consent was obtained. Instrument: Olympus PCF H 190 L variable stiffness pediatric colonoscope Monitoring: Vital signs and clinical assessment, intermittent blood pressure monitoring, continuous EKG monitoring, Pulse oximetry and Carbon Dioxide monitoring were done throughout the procedure. Procedure: The patient was placed in the left lateral decubitis position and pre-procedure medications were administered. After a digital rectal examination of the ano-rectum, the video colonoscope was inserted into the rectum and advanced through the colon to the cecum. The colonoscope was slowly withdrawn in a retrograde panoramic fashion and the colon mucosa was carefully examined including a retroflexed view of the rectum. Findings and interventions are described below. Procedure Difficulty: Without difficulty Findings: Transverse Colon: Normal mucosa in distal TC Descending Colon: Edema, erythema with scattered ulcers in the descending and sigmoid colon from 30 to 55 cms - biopsies were obtained. Sigmoid Colon: Edema, erythema with scattered ulcers in the descending and sigmoid colon from 30 to 55 cms - biopsies were obtained. Moderate diverticulosis Rectum: Normal Ano-rectum: Small non-bleeding internal hemorrhoids Colon preparation: [Excellent] [Good] [Fair] [poor] Impression and Post Procedure Diagnosis: Colonoscopy Findings: Edema, erythema with scattered ulcers in the descending and sigmoid colon from 30 to 55 cms - biopsies were obtained. No active bleeding noted. No polyps were detected Moderate diverticulosis seen in the sigmoid colon Small non-bleeding hemorrhoids on retroflexed exam. Plan: Start on a liquid diet and advance diet as tolerated. Continue IV antibiotics. Pt has an appt in GI clinic on 01/15/21 with DEANA Gay. Full colonoscopy in 4-6 months. Above findings were reviewed with the patient. Surgeon: Santosh Winkler MD Anesthesia: MAC (Fabiola Livingston CRNA) Was an Social Services Technician used for this Procedure?: No Social Services Technician: Vivienne Soriano Estimated blood loss (mL): 0 Pathology: other (A. Left colon ) Condition: stable Disposition: PACU
[2021-01-02] MEDS: Sodium Phosphate,Mono-Dibasic 133 ML ENEMA PR (14:15)
--- NOTE | 2021-01-02 14:50 | P.OP_ITS ---
Operative Note Operative Note Date of Service: 01/02/21 Narrative: Pre-op diagnosis:?LLQ pain, diarrhea, rectal bleeding, abnormal CT scan of the colon Post-op diagnosis:?other (Left sided colitis, diverticulosis, non-bleeding hemorrhoids) Procedure:? FLEXIBLE SIGMOIDOSCOPY TILL DISTAL TRANSVERSE COLON WITH BIOPSIES Consent: Indications for the procedure and potential complications of bleeding, perforation, reaction to medications and missed diagnosis were discussed with the patient and informed consent was obtained. Instrument: Olympus PCF H 190 L variable stiffness pediatric colonoscope Monitoring: Vital signs and clinical assessment, intermittent blood pressure monitoring, continuous EKG monitoring, Pulse oximetry and Carbon Dioxide monitoring were done throughout the procedure. Procedure: The patient was placed in the left lateral decubitis position and pre-procedure medications were administered. After a digital rectal examination of the ano-rectum, the video colonoscope was inserted into the rectum and advanced through the colon to the cecum. The colonoscope was slowly withdrawn in a retrograde panoramic fashion and the colon mucosa was carefully examined including a retroflexed view of the rectum. Findings and interventions are described below. Procedure Difficulty: Without difficulty Findings: Transverse Colon:? Normal mucosa in distal TC Descending Colon:? Edema, erythema with scattered ulcers in the descending and sigmoid colon from 30 to 55 cms - biopsies were obtained. Sigmoid Colon:? Edema, erythema with scattered ulcers in the descending and sigmoid colon from 30 to 55 cms - biopsies were obtained. Moderate diverticulosis Rectum:? Normal Ano-rectum:? Small non-bleeding internal hemorrhoids Colon preparation: [Excellent] [Good] [Fair] [poor] Impression and Post Procedure Diagnosis: Colonoscopy Findings: Edema, erythema with scattered ulcers in the descending and sigmoid colon from 30 to 55 cms (likely infectious versus ischemic colitis) - biopsies were obtained.? No active bleeding noted. No polyps were detected Moderate diverticulosis seen in the sigmoid colon Small non-bleeding hemorrhoids on retroflexed exam. Plan: Start on a liquid diet and advance diet as tolerated. Continue IV antibiotics. Pt has an appt in GI clinic on 01/15/21 with DEANA Gay. Full colonoscopy in 4-6 months. Above findings were reviewed with the patient. Surgeon:?Santosh Winkler MD Anesthesia:?MAC (Fabiola Livingston CRNA) Was an Systems Protection Technician used for this Procedure?:?Yes Systems Protection Technician:?Vivienne Soriano Estimated blood loss (mL):?0 Pathology:?A. left colon biopsies, R/O ischemic colitis Condition:?stable Disposition:?PACU
[2021-01-02] MEDS: Morphine Sulfate 2 MG/ML CARTRIDGE IVPUSH (15:02)
--- NOTE | 2021-01-02 15:59 | PM.EVENT ---
Event Note Date of Service: 01/02/21 Event Note: Patient came with the diarrhea and probable lower GI bleed. Still has left lower quadrant pain. Denies any nausea vomiting Denies any new complaint of chest pain or shortness of breath or fever or chills or nausea or vomiting Denies any cough Denies any weakness or numbness. Physical exam: Cvs: rrr, [id number] , no murmur res: clear to auscultation ,no rhonchii or wheezing abd: no rebound or guarding ,left lower quadrent pain, bs present. ext pulses present , no cyanosis neuro: axo3 , nonfocal. Assessment and plan: Abdominal pain slightly better than before ? Colitis Colonoscopy shows-erythema, scattered ulcer in sigmoid colon, biopsies obtained ,no active bleeding Moderate diverticulosis Small nonbleeding hemorrhoids Continue IV antibiotic including ceftriaxone and Flagyl Stool studies clear liquid diet
[2021-01-02] MEDS: 0.9 % Sodium Chloride Flush 3 ML SYRINGE IVFLUSH (17:01)
[2021-01-02] MEDS: traZODone HCL 50 MG TABLET PO (20:57)
[2021-01-02] MEDS: Melatonin 3 MG TABLET 6 MG PO (20:57)
[2021-01-02] MEDS: Mirtazapine 7.5 MG TABLET PO (20:57)
[2021-01-02] MEDS: QUEtiapine Fumarate 200 MG TABLET PO (20:57)
[2021-01-03] VITALS (7 sets, daily range): BP systolic 100–135; BP diastolic 50–84; PULSE 56–84; RESP 16–20; TEMP 36.1–37; O2SAT 93–97
[2021-01-03] MEDS: Lactated Ringers 1,000 ML 100 ML IVCONT ×2 (03:49→13:57)
[2021-01-03] MEDS: Morphine Sulfate 4 MG/ML CARTRIDGE IVPUSH ×4 (03:56→21:32)
[2021-01-03 05:46] LABS: Hematocrit 39.1 % (42-52); Hemoglobin 13.1 g/dl (14.0-18.0); Mean Corpuscular HGB Conc 33.5 g/dl (31.0-36.0); Mean Corpuscular Hemoglobin 29.9 pg (27.0-33.0); Mean Corpuscular Volume 89.3 fL (80-98); Mean Platelet Volume 9.9 fL (9.4-12.4); Platelet Count 221 X10*3/uL (160-400); Red Blood Count 4.38 X10*6/uL (4.60-5.80); Red Cell Distribution Width 13.1 % (11.0-16.0); White Blood Count 5.1 X10*3/uL (4.8-10.8)
[2021-01-03] MEDS: metroNIDAZOLE/NS 500 MG/100 ML PIGGYBACK 100 MG IV ×2 (06:18→13:57)
[2021-01-03] MEDS: Pantoprazole Sodium 40 MG/10 ML VIAL IVPUSH ×2 (06:18→16:37)
[2021-01-03 06:20] LABS: Anion Gap 12 (12-20); Blood Urea Nitrogen 12 mg/dL (9-16); Calcium 8.8 mg/dL (8.4-10.2); Carbon Dioxide 28 mmol/L (22-29); Chloride 105 mmol/L (96-108); Creatinine Clr Calc Pharmacy 98.3; Estimated Glomerular Filt Rate > 60; Glucose Random 93 mg/dL (60-115); Potassium 3.8 mmol/L (3.3-5.1); Sodium 141 mmol/L (135-145)
[2021-01-03] MEDS: lisinopriL 40 MG TABLET PO (09:06)
[2021-01-03] MEDS: Tamsulosin HCL 0.4 MG CAPSULE PO (09:06)
[2021-01-03] MEDS: Naltrexone HCl 50 MG TABLET PO (09:06)
[2021-01-03] MEDS: amLODIPine Besylate 10 MG TABLET PO (09:06)
[2021-01-03] MEDS: buPROPion HCl XL 150 MG TAB.ER.24H 450 MG PO (09:06)
--- NOTE | 2021-01-03 09:37 | MHC.CM.PN ---
PATIENT LIVES WITH ROOMMATES IN A SOBER LIVING ENVIRONMENT. HE USES NO DME OR VNA SERVICES. HE IS STUDYING [facility], AND WILL NEED A NOTE FROM [facility] [place] OUTLINING THE DATES OF ADMISSION. NO HCP HE IS AWARE THAT CASE MANAGEMENT CAN ASSIST WITH COMPLETION OF DOCUMENT AT ANYTIME DURING HIS STAY FAMILY AND FRIENDS PROVIDE TRANSPORTATION, OR HE WILL OFTEN USE [facility] CASE MANAGEMENT FOLLOWING FOR DC PLANS.
--- NOTE | 2021-01-03 13:43 | HO.POSTANES ---
Post Anesthesia Evaluation Post Anesthesia Evaluation Vital Signs: Vital Signs Temp Pulse Resp BP Pulse Ox 01/03/21 11:34 97.5 F 58 18 110/62 97 01/03/21 07:33 96.9 F 66 18 114/74 93 01/03/21 04:00 97.2 F 56 16 100/50 L 94 Anesthesia: Monitored Mental Status: Awake Pain Control: Satisfactory Nausea/Vomiting: None Hydration: Adequate Anesthesia-Related Issues: No Anes. Related Issues
--- NOTE | 2021-01-03 14:54 | MHC.CM.PN ---
PER HOSPITALIST ROUNDS, PLAN IS FOR PATIENT TO RETURN TO HOME WITH NO SERVICES BY Wednesday01/05/21
--- NOTE | 2021-01-03 17:32 | P.PNIM_ITS ---
Subjective Subjective Date of Service: 01/03/21 Interval History: Follow-up for colitis Review of Systems Still has abdominal pain and nausea Denies any new complaint of chest pain or shortness of breath or fever or chills or vomiting Denies any cough Denies any weakness or numbness. Physical Exam Vital Signs: Vital Signs: Last Vital Signs Temp 98.1 F 01/03/21 15:39 Pulse 80 01/03/21 15:39 Resp 19 01/03/21 15:39 BP 135/84 01/03/21 15:39 Pulse Ox 96 01/03/21 15:39 Body Mass Index 22.2 Appearance: Alert.? Oriented X3. Still in moderate distress.? Eyes: Pupils equal, round and reactive to light.? Sclera nonicteric.? ENT: Pharynx normal.? Moist mucous membranes. Neck: Normal inspection.? Neck supple. CVS: Normal heart rate and rhythm.? Pulses normal. Respiratory: No respiratory distress.? Breath sounds normal. Abdomen: Soft and diffusely tender.? Gross hematochezia with bowel movement. Skin: Skin warm and dry.? Normal skin color.? Normal skin turgor. Extremities: No lower extremity edema.? Gait well balanced well coordinated. Neuro: No motor deficit.? No sensory deficit.? Cranial nerves 2-12 intact.? Objective Data Active Medications Acetaminophen (Acetaminophen 325 Mg Tablet) 650 mg PO Q6H PRN PRN Reason: Pain, Mild (Pain Scale 1-3) Amlodipine Besylate (Amlodipine Besylate 10 Mg Tablet) 10 mg PO DAILY [facility]; Protocol Last Admin: 01/03/21 09:06 Dose: 10 mg Documented by: PRINCE Bupropion HCl (Bupropion Hcl Xl 150 Mg Tab.Er.24h) 450 mg PO DAILY [facility] Last Admin: 01/03/21 09:06 Dose: 450 mg Documented by: PRINCE Hydrochlorothiazide (Hydrochlorothiazide 25 Mg Tablet) 50 mg PO DAILY [facility] Last Admin: 01/02/21 11:53 Dose: 50 mg Documented by: SHAINA Ceftriaxone Sodium 1 gm/ (Sodium Chloride) 50 mls @ 100 mls/hr IV Q24H [facility] Last Infusion: 01/02/21 23:44 Dose: 100 mls/hr Documented by: WHITNEY Metronidazole (Flagyl) 500 mg in 100 mls @ 100 mls/hr IV Q8H [facility] Last Infusion: 01/03/21 15:02 Dose: 0 mls/hr Documented by: PRINCE Lactated Ringer's (Lr) 1,000 mls @ 100 mls/hr IVCONT .Q10H [facility] Last Infusion: 01/03/21 15:02 Dose: 100 mls/hr Documented by: PRINCE Lactated Ringer's (Lr) 1,000 mls @ 50 mls/hr IVCONT .Q20H [facility] Last Admin: 01/03/21 07:34 Dose: Not Given Documented by: PRINCE Non-Admin Reason: Duplicate Order Promethazine HCl 12.5 mg/ (Sodium Chloride) 50.5 mls @ 202 mls/hr IV ONCE PRN PRN Reason: Nausea and Vomiting Lisinopril (Lisinopril 40 Mg Tablet) 40 mg PO DAILY [facility]; Protocol Last Admin: 01/03/21 09:06 Dose: 40 mg Documented by: PRINCE Melatonin (Melatonin 3 Mg Tablet) 6 mg PO BEDTIME [facility] Last Admin: 01/02/21 20:57 Dose: 6 mg Documented by: WHITNEY Mirtazapine (Mirtazapine 7.5 Mg Tablet) 7.5 mg PO BEDTIME [facility] Last Admin: 01/02/21 20:57 Dose: 7.5 mg Documented by: WHITNEY Morphine Sulfate (Morphine Sulfate 4 Mg/Ml Cartridge) 4 mg IVPUSH Q4H PRN; Protocol PRN Reason: Pain, Severe (Pain Scale 7-10) Last Admin: 01/03/21 16:43 Dose: 4 mg Documented by: PRINCE Naltrexone HCl (Naltrexone Hcl 50 Mg Tablet) 50 mg PO DAILY [facility] Last Admin: 01/03/21 09:06 Dose: 50 mg Documented by: PRINCE Ondansetron HCl (Ondansetron Hcl 4 Mg/2 Ml Vial) 4 mg IVPUSH Q8H PRN PRN Reason: Nausea and Vomiting Last Admin: 01/02/21 13:08 Dose: 4 mg Documented by: BIANCA Ondansetron HCl (Ondansetron Hcl 4 Mg/2 Ml Vial) 4 mg IVPUSH ONCE PRN PRN Reason: Nausea and Vomiting Pantoprazole Sodium (Pantoprazole Sodium 40 Mg/10 Ml Vial) 40 mg IVPUSH BID@0630,6212 [facility] Last Admin: 01/03/21 16:37 Dose: 40 mg Documented by: PRINCE Quetiapine Fumarate (Quetiapine Fumarate 200 Mg Tablet) 200 mg PO BEDTIME [facility] Last Admin: 01/02/21 20:57 Dose: 200 mg Documented by: WHITNEY Sodium Biphosphate/Sodium Phosphate (Sodium Phosphate,[place]-Dibasic 133 Ml Enema) 133 ml [place] ONCE PRN PRN Reason: flexible sig prep Last Admin: 01/02/21 14:15 Dose: 133 ml Documented by: TROY Comments: PRE PROCEDURE ORDER VIA DR. GRACIA Sodium Chloride (0.9 % Sodium Chloride Flush 3 Ml Syringe) 3 ml IVFLUSH QSHIFT [facility] Last Admin: 01/03/21 13:58 Dose: Not Given Documented by: PRINCE Non-Admin Reason: IV Running Tamsulosin HCl (Tamsulosin Hcl 0.4 Mg Capsule) 0.4 mg PO DAILY [facility] Last Admin: 01/03/21 09:06 Dose: 0.4 mg Documented by: PRINCE Trazodone HCl (Trazodone Hcl 50 Mg Tablet) 50 mg PO BEDTIME [facility] Last Admin: 01/02/21 20:57 Dose: 50 mg Documented by: WHITNEY Labs CBC & Chem 7: 01/03/21 05:17 01/03/21 05:17 Labs: Laboratory Results - last 24 hr 01/03/21 01/03/21 05:17 05:17 MCV 89.3 MCH 29.9 MCHC 33.5 RDW 13.1 Plt Count 221 D MPV 9.9 Absolute Nucleated RBC 0.000 Nucleated RBC % (auto) 0.0 Anion Gap 12 Estim Creat Clear Calc 98.3 Estimated GFR > 60 Random Glucose 93 Calcium 8.8 Microbiology Microbiology Results: Microbiology 01/01/21 23:52 Blood Culture - Preliminary Blood - Venous No growth after 24 hours. 01/01/21 23:52 Blood Culture - Preliminary Blood - Venous No growth after 24 hours. Assessment and Plan (1) HTN (hypertension): Status: Acute (2) Colitis: Status: Acute (3) Bright red rectal bleeding: Status: Acute Assessment and Plan: 45-year-old male with past medical history of hepatitis-C, as well as hypertension presents to the hospital with bright red blood per rectum as well as diarrhea 1.Colitis/ bright red blood per rectum- most likely secondary to inflammatory versus infectious colitis - CT abdomen showing colitis Stool studies needs to be sent once stool available Colonoscopy shows-erythema, scattered ulcer in sigmoid colon, biopsies obtained ,no active bleeding Moderate diverticulosis Small nonbleeding hemorrhoids - start on IV antibiotic-ceftriaxone and metronidazole, pain control with morphine full liquid diet GI follow-up. 2. colitis: Seems slowly improving still has some stool with blood - most likely infectious - has no history of inflammatory bowel disease - LDH negative - will start him on IV antibiotic Stool studies including C diff need to be sent. 3. HTN-stable - continue home amlodipine, lisinopril 4. mood disorder continue home medications Quality Stroke Does the patient have a stroke diagnosis?: No VTE Prior VTE?: No VTE Risk Level:: Medical - moderate - high VTE Device Contraindication: N/A - Device Ordered VTE Drug Contraindication: Treatment Not Indicated
[2021-01-03] MEDS: 0.9 % Sodium Chloride Flush 3 ML SYRINGE IVFLUSH (21:31)
[2021-01-03] MEDS: Mirtazapine 7.5 MG TABLET PO (21:31)
[2021-01-03] MEDS: QUEtiapine Fumarate 200 MG TABLET PO (21:31)
[2021-01-03] MEDS: traZODone HCL 50 MG TABLET PO (21:31)
[2021-01-03] MEDS: Melatonin 3 MG TABLET 6 MG PO (21:31)
[2021-01-04] MEDS: cefTRIAXone sodium 1 GM in 0.9 % Sodium Chloride 50 ML IV ×2 (00:17→22:23)
[2021-01-04] MEDS: metroNIDAZOLE/NS 500 MG/100 ML PIGGYBACK 100 MG IV ×4 (00:54→23:03)
[2021-01-04 04:00] VITALS: BP 118/67; PULSE 68; RESP 20; TEMP 37; O2SAT 96
[2021-01-04] MEDS: Pantoprazole Sodium 40 MG/10 ML VIAL IVPUSH (06:27)
[2021-01-04] MEDS: Lactated Ringers 1,000 ML 100 ML IVCONT ×2 (06:27→14:29)
[2021-01-04] MEDS: 0.9 % Sodium Chloride Flush 3 ML SYRINGE IVFLUSH ×2 (07:56→16:35)
[2021-01-04] MEDS: Morphine Sulfate 4 MG/ML CARTRIDGE IVPUSH ×3 (07:56→16:45)
[2021-01-04] MEDS: Tamsulosin HCL 0.4 MG CAPSULE PO (07:59)
[2021-01-04] MEDS: amLODIPine Besylate 10 MG TABLET PO (07:59)
[2021-01-04] MEDS: buPROPion HCl XL 150 MG TAB.ER.24H 450 MG PO (07:59)
[2021-01-04 08:07] VITALS: BP 133/60; PULSE 62; RESP 18; TEMP 36.5; O2SAT 94
[2021-01-04] MEDS: Mesalamine 400 MG CAP.DRTAB. 800 MG PO ×3 (11:29→20:28)
[2021-01-04] MEDS: Omeprazole 20 MG CAPSULE.DR PO (11:29)
--- NOTE | 2021-01-04 12:56 | HO.PM.IMPN ---
Subjective Subjective Date of Service: 01/04/21 Interval History: colitis Review of Systems patient still has abdominal pain but seems to be somewhat better than yesterday. Still have nausea, no vomiting though. Denies any new complaint of chest pain or shortness of breath or fever or chills Denies any cough Denies any weakness or numbness. Physical Exam Vital Signs: Vital Signs: Last Vital Signs Temp 97.7 F 01/04/21 08:07 Pulse 62 01/04/21 08:07 Resp 18 01/04/21 08:07 BP 133/60 01/04/21 08:07 Pulse Ox 94 01/04/21 08:07 Body Mass Index 22.2 Appearance: Alert.? Oriented X3.? Still in moderate? distress.? Eyes: Pupils equal, round and reactive to light.? Sclera nonicteric.? ENT: Pharynx normal.? Moist mucous membranes. Neck: Normal inspection.? Neck supple. CVS: Normal heart rate and rhythm.? Pulses normal. Respiratory: No respiratory distress.? Breath sounds normal. Abdomen: Soft and diffusely tender-more on left lower abd ( but seems improving than yesterday), bs present ,soft. No rebound or guarding Skin: Skin warm and dry.? Normal skin color.? Normal skin turgor. Extremities: No lower extremity edema.? Gait well balanced well coordinated. Neuro: No motor deficit.? No sensory deficit.? Cranial nerves 2-12 intact. Objective Data Active Medications Acetaminophen (Acetaminophen 325 Mg Tablet) 650 mg PO Q6H PRN PRN Reason: Pain, Mild (Pain Scale 1-3) Amlodipine Besylate (Amlodipine Besylate 10 Mg Tablet) 10 mg PO DAILY [facility]; Protocol Last Admin: 01/04/21 07:59 Dose: 10 mg Documented by: LORE Bupropion HCl (Bupropion Hcl Xl 150 Mg Tab.Er.24h) 450 mg PO DAILY [facility] Last Admin: 01/04/21 07:59 Dose: 450 mg Documented by: LORE Hydrochlorothiazide (Hydrochlorothiazide 25 Mg Tablet) 50 mg PO DAILY [facility] Last Admin: 01/02/21 11:53 Dose: 50 mg Documented by: SHAINA Ceftriaxone Sodium 1 gm/ (Sodium Chloride) 50 mls @ 100 mls/hr IV Q24H [facility] Last Infusion: 01/04/21 01:07 Dose: 0 mls/hr Documented by: ARINA Metronidazole (Flagyl) 500 mg in 100 mls @ 100 mls/hr IV Q8H [facility] Last Infusion: 01/04/21 07:33 Dose: 0 mls/hr Documented by: ARINA Lactated Ringer's (Lr) 1,000 mls @ 100 mls/hr IVCONT .Q10H [facility] Last Admin: 01/04/21 06:27 Dose: 100 mls/hr Documented by: ARINA Lactated Ringer's (Lr) 1,000 mls @ 50 mls/hr IVCONT .Q20H [facility] Last Admin: 01/04/21 06:30 Dose: Not Given Documented by: ARINA Non-Admin Reason: IV Running Promethazine HCl 12.5 mg/ (Sodium Chloride) 50.5 mls @ 202 mls/hr IV ONCE PRN PRN Reason: Nausea and Vomiting Lisinopril (Lisinopril 40 Mg Tablet) 40 mg PO DAILY [facility]; Protocol Last Admin: 01/03/21 09:06 Dose: 40 mg Documented by: PRINCE Melatonin (Melatonin 3 Mg Tablet) 6 mg PO BEDTIME [facility] Last Admin: 01/03/21 21:31 Dose: 6 mg Documented by: ARINA Mesalamine (Mesalamine 400 Mg Cap.Drtab.) 800 mg PO TID [facility] Last Admin: 01/04/21 11:29 Dose: 800 mg Documented by: LORE Mirtazapine (Mirtazapine 7.5 Mg Tablet) 7.5 mg PO BEDTIME [facility] Last Admin: 01/03/21 21:31 Dose: 7.5 mg Documented by: ARINA Morphine Sulfate (Morphine Sulfate 4 Mg/Ml Cartridge) 4 mg IVPUSH Q3H PRN; Protocol PRN Reason: Pain, Severe (Pain Scale 7-10) Naltrexone HCl (Naltrexone Hcl 50 Mg Tablet) 50 mg PO DAILY [facility] Last Admin: 01/04/21 07:59 Dose: Not Given Documented by: LORE Non-Admin Reason: Patient Refused Omeprazole (Omeprazole 20 Mg Capsule.Dr) 20 mg PO DAILY@0630 [facility] Last Admin: 01/04/21 11:29 Dose: 20 mg Documented by: LORE Ondansetron HCl (Ondansetron Hcl 4 Mg/2 Ml Vial) 4 mg IVPUSH Q8H PRN PRN Reason: Nausea and Vomiting Last Admin: 01/02/21 13:08 Dose: 4 mg Documented by: BIANCA Ondansetron HCl (Ondansetron Hcl 4 Mg/2 Ml Vial) 4 mg IVPUSH ONCE PRN PRN Reason: Nausea and Vomiting Quetiapine Fumarate (Quetiapine Fumarate 200 Mg Tablet) 200 mg PO BEDTIME [facility] Last Admin: 01/03/21 21:31 Dose: 200 mg Documented by: ARINA Sodium Biphosphate/Sodium Phosphate (Sodium Phosphate,[place]-Dibasic 133 Ml Enema) 133 ml NM ONCE PRN PRN Reason: flexible sig prep Last Admin: 01/02/21 14:15 Dose: 133 ml Documented by: TROY Comments: PRE PROCEDURE ORDER VIA DR. GRACIA Sodium Chloride (0.9 % Sodium Chloride Flush 3 Ml Syringe) 3 ml IVFLUSH QSHIFT [facility] Last Admin: 01/04/21 07:56 Dose: 3 ml Documented by: LORE Tamsulosin HCl (Tamsulosin Hcl 0.4 Mg Capsule) 0.4 mg PO DAILY [facility] Last Admin: 01/04/21 07:59 Dose: 0.4 mg Documented by: LORE Trazodone HCl (Trazodone Hcl 50 Mg Tablet) 50 mg PO BEDTIME [facility] Last Admin: 01/03/21 21:31 Dose: 50 mg Documented by: ARINA Labs CBC & Chem 7: 01/03/21 05:17 01/03/21 05:17 Microbiology Microbiology Results: Microbiology 01/01/21 23:52 Blood Culture - Preliminary Blood - Venous No growth after 48 hours. 01/01/21 23:52 Blood Culture - Preliminary Blood - Venous No growth after 48 hours. Assessment and Plan (1) HTN (hypertension): Status: Acute (2) Colitis: Status: Acute Assessment and Plan: 45-year-old male with past medical history of hepatitis-C, as well as hypertension presents to the hospital with bright red blood per rectum as well as diarrhea 1.Colitis/ bright red blood per rectum- most likely secondary to inflammatory versus infectious colitis - CT abdomen showing colitis Stool studies needs to be sent once stool available Colonoscopy shows-erythema, scattered ulcer in sigmoid colon, biopsies obtained ,no active bleeding Moderate diverticulosis Small nonbleeding hemorrhoids still very little pain improvement , but no more bloody diarrhea, has nausea but no vomiting on IV antibiotic and iv fluids-ceftriaxone and metronidazole day3 , adjusted pain control with iv morphine frequency q3hr prn full liquid diet GI follow-up-d/w Dr alfaro -added mesalmine 2. colitis: Seems slowly improving still has some stool with blood - most likely infectious - has no history of inflammatory bowel disease - LDH negative - will start him on IV antibiotic Stool studies including C diff need to be sent. 3. HTN-stable - continue home amlodipine, lisinopril 4. mood disorder continue home medications above management discussed with the patient in detail and including antibiotics, mesalamine, pain management, htn control- total time spent plan coordination 60 minutes Quality Stroke Does the patient have a stroke diagnosis?: No VTE Prior VTE?: No VTE Risk Level:: Medical - moderate - high VTE Device Contraindication: N/A - Device Ordered VTE Drug Contraindication: Treatment Not Indicated
--- NOTE | 2021-01-04 13:03 | PC.NURSE ---
Pt had pain after eating only ice cream after advancement of diet. aware. Instructed pt to eat clears with small amounts of full liquids if tollerated.
[2021-01-04 15:29] VITALS: BP 130/73; PULSE 70; RESP 19; TEMP 37.3; O2SAT 95
[2021-01-04] MEDS: Lactated Ringers 1,000 ML 50 ML IVCONT (16:52)
[2021-01-04 17:08] VITALS: BP 132/81; PULSE 75; RESP 20
--- NOTE | 2021-01-04 17:19 | PC.NURSE ---
P patient refused sequentials I Dr. Dawn notified E encouraged ambulation
[2021-01-04 19:20] VITALS: BP 157/95; PULSE 74; RESP 19; TEMP 36.2; O2SAT 95
[2021-01-04] MEDS: Melatonin 3 MG TABLET 6 MG PO (20:28)
[2021-01-04] MEDS: Mirtazapine 7.5 MG TABLET PO (20:28)
[2021-01-04] MEDS: QUEtiapine Fumarate 200 MG TABLET PO (20:28)
[2021-01-04] MEDS: traZODone HCL 50 MG TABLET PO (20:28)
[2021-01-04 23:41] VITALS: BP 102/59; PULSE 74; RESP 18; TEMP 36.9; O2SAT 95
[2021-01-05 06:19] VITALS: BP 123/75; PULSE 61; RESP 18
[2021-01-05] MEDS: Morphine Sulfate 4 MG/ML CARTRIDGE IVPUSH ×3 (06:26→14:59)
[2021-01-05] MEDS: Omeprazole 20 MG CAPSULE.DR PO (06:27)
[2021-01-05] MEDS: metroNIDAZOLE/NS 500 MG/100 ML PIGGYBACK 100 MG IV ×3 (06:28→23:11)
[2021-01-05 07:56] VITALS: BP 126/58; PULSE 68; RESP 18; TEMP 36.1; O2SAT 96
[2021-01-05] MEDS: amLODIPine Besylate 10 MG TABLET PO (08:27)
[2021-01-05] MEDS: Tamsulosin HCL 0.4 MG CAPSULE PO (08:27)
[2021-01-05] MEDS: hydroCHLOROthiazide 25 MG TABLET 50 MG PO (08:28)
[2021-01-05] MEDS: Naltrexone HCl 50 MG TABLET PO (08:28)
[2021-01-05] MEDS: Mesalamine 400 MG CAP.DRTAB. 800 MG PO ×3 (08:28→21:17)
[2021-01-05] MEDS: buPROPion HCl XL 150 MG TAB.ER.24H 450 MG PO (08:28)
--- NOTE | 2021-01-05 10:04 | HO.PM.IMPN ---
Subjective Subjective Date of Service: 01/05/21 Interval History: abd pain Review of Systems Abdominal pain seems improving slowly but still has significant pain Denies any diarrhea or nausea or vomiting. Today will give trial of food to see how he tolerates. Denies any new complaint of chest pain or shortness of breathn or fever or chills Denies any cough Denies any weakness or numbness. Physical Exam Vital Signs: Vital Signs: Last Vital Signs Temp 96.9 F 01/05/21 07:56 Pulse 68 01/05/21 07:56 Resp 18 01/05/21 07:56 BP 126/58 L 01/05/21 07:56 Pulse Ox 96 01/05/21 07:56 Body Mass Index 22.2 Appearance: Seems somewhat better,? Abdominal pain improving? Eyes: Pupils equal, round and reactive to light.? Sclera nonicteric.? CVS: Normal heart rate and rhythm.? Pulses normal. Respiratory: No respiratory distress.? Breath sounds normal. Abdomen: Soft and diffusely tender-more on left lower abd-which is slowly improving bs present ,soft.? No rebound or guarding Skin: Skin warm and dry.? Normal skin color.? Normal skin turgor. Extremities: No lower extremity edema.? Gait well balanced well coordinated. Neuro: No motor deficit.? No sensory deficit.? Cranial nerves 2-12 intact. Objective Data Active Medications Acetaminophen (Acetaminophen 325 Mg Tablet) 650 mg PO Q6H PRN PRN Reason: Pain, Mild (Pain Scale 1-3) Amlodipine Besylate (Amlodipine Besylate 10 Mg Tablet) 10 mg PO DAILY [facility]; Protocol Last Admin: 01/05/21 08:27 Dose: 10 mg Documented by: RYLIE Bupropion HCl (Bupropion Hcl Xl 150 Mg Tab.Er.24h) 450 mg PO DAILY [facility] Last Admin: 01/05/21 08:28 Dose: 450 mg Documented by: RYLIE Hydrochlorothiazide (Hydrochlorothiazide 25 Mg Tablet) 50 mg PO DAILY [facility] Last Admin: 01/05/21 08:28 Dose: 50 mg Documented by: RYLIE Ceftriaxone Sodium 1 gm/ (Sodium Chloride) 50 mls @ 100 mls/hr IV Q24H [facility] Last Infusion: 01/04/21 23:01 Dose: 0 mls/hr Documented by: HANSA Metronidazole (Flagyl) 500 mg in 100 mls @ 100 mls/hr IV Q8H [facility] Last Infusion: 01/05/21 07:28 Dose: 0 mls/hr Documented by: RYLIE Lactated Ringer's (Lr) 1,000 mls @ 50 mls/hr IVCONT .Q20H [facility] Last Admin: 01/04/21 16:52 Dose: 50 mls/hr Documented by: HANSA Promethazine HCl 12.5 mg/ (Sodium Chloride) 50.5 mls @ 202 mls/hr IV ONCE PRN PRN Reason: Nausea and Vomiting Lisinopril (Lisinopril 40 Mg Tablet) 40 mg PO DAILY [facility]; Protocol Last Admin: 01/03/21 09:06 Dose: 40 mg Documented by: PRINCE Melatonin (Melatonin 3 Mg Tablet) 6 mg PO BEDTIME [facility] Last Admin: 01/04/21 20:28 Dose: 6 mg Documented by: HANSA Mesalamine (Mesalamine 400 Mg Cap.Drtab.) 800 mg PO TID [facility] Last Admin: 01/05/21 08:28 Dose: 800 mg Documented by: RYLIE Mirtazapine (Mirtazapine 7.5 Mg Tablet) 7.5 mg PO BEDTIME [facility] Last Admin: 01/04/21 20:28 Dose: 7.5 mg Documented by: HANSA Morphine Sulfate (Morphine Sulfate 4 Mg/Ml Cartridge) 4 mg IVPUSH Q3H PRN; Protocol PRN Reason: Pain, Severe (Pain Scale 7-10) Last Admin: 01/05/21 06:26 Dose: 4 mg Documented by: FORTINO Naltrexone HCl (Naltrexone Hcl 50 Mg Tablet) 50 mg PO DAILY [facility] Last Admin: 01/05/21 08:28 Dose: 50 mg Documented by: RYLIE Omeprazole (Omeprazole 20 Mg Capsule.Dr) 20 mg PO DAILY@0630 [facility] Last Admin: 01/05/21 06:27 Dose: 20 mg Documented by: FORTINO Ondansetron HCl (Ondansetron Hcl 4 Mg/2 Ml Vial) 4 mg IVPUSH Q8H PRN PRN Reason: Nausea and Vomiting Last Admin: 01/02/21 13:08 Dose: 4 mg Documented by: BIANCA Ondansetron HCl (Ondansetron Hcl 4 Mg/2 Ml Vial) 4 mg IVPUSH ONCE PRN PRN Reason: Nausea and Vomiting Quetiapine Fumarate (Quetiapine Fumarate 200 Mg Tablet) 200 mg PO BEDTIME [facility] Last Admin: 01/04/21 20:28 Dose: 200 mg Documented by: HANSA Sodium Biphosphate/Sodium Phosphate (Sodium Phosphate,[place]-Dibasic 133 Ml Enema) 133 ml LA ONCE PRN PRN Reason: flexible sig prep Last Admin: 01/02/21 14:15 Dose: 133 ml Documented by: TROY Comments: PRE PROCEDURE ORDER VIA DR. GRACIA Sodium Chloride (0.9 % Sodium Chloride Flush 3 Ml Syringe) 3 ml IVFLUSH QSHIFT [facility] Last Admin: 01/05/21 08:24 Dose: Not Given Documented by: RYLIE Non-Admin Reason: IV Running Tamsulosin HCl (Tamsulosin Hcl 0.4 Mg Capsule) 0.4 mg PO DAILY [facility] Last Admin: 01/05/21 08:27 Dose: 0.4 mg Documented by: RYLIE Trazodone HCl (Trazodone Hcl 50 Mg Tablet) 50 mg PO BEDTIME [facility] Last Admin: 01/04/21 20:28 Dose: 50 mg Documented by: HANSA Labs CBC & Chem 7: 01/03/21 05:17 01/03/21 05:17 Assessment and Plan (1) Colitis: Status: Acute Assessment and Plan: 45-year-old male with past medical history of hepatitis-C, as well as hypertension presents to the hospital with bright red blood per rectum as well as diarrhea 1.Colitis/ bright red blood per rectum- most likely secondary to inflammatory versus infectious colitis - CT abdomen showing colitis abd pain seems improving Colonoscopy shows-erythema, scattered ulcer in sigmoid colon, biopsies obtained ,no active bleeding Moderate diverticulosis Small nonbleeding hemorrhoids abd pain imrpoving , still has moderate discomfort ,? but no more bloody diarrhea, has nausea but no vomiting ?on IV antibiotic and iv fluids-ceftriaxone and metronidazole day4 , adjusted pain control with iv morphine frequency q3hr prn full liquid diet GI follow-up-d/w Dr alfaro -added mesalmine d/w Gi -trial of diet if patient improves further and tolerate diet -will plan discharge in am. 2. colitis: Seems slowly improving still has some stool with blood - most likely infectious - has no history of inflammatory bowel disease - LDH negative - will start him on IV antibiotic Stool studies including C diff need to be sent. 3. HTN-stable - continue home amlodipine, lisinopril 4. mood disorder continue home medications Quality Stroke Does the patient have a stroke diagnosis?: No VTE Prior VTE?: No VTE Risk Level:: Medical - moderate - high VTE Device Contraindication: N/A - Device Ordered VTE Drug Contraindication: Treatment Not Indicated
[2021-01-05 11:42] VITALS: BP 132/78; PULSE 73; RESP 18; TEMP 36.5; O2SAT 94
[2021-01-05] MEDS: 0.9 % Sodium Chloride Flush 3 ML SYRINGE IVFLUSH ×2 (14:53→21:18)
[2021-01-05 15:40] VITALS: BP 120/80; PULSE 70; RESP 15; TEMP 37.2; O2SAT 95
[2021-01-05 19:55] VITALS: BP 138/88; PULSE 84; RESP 18; TEMP 37.2; O2SAT 94
[2021-01-05] MEDS: traZODone HCL 50 MG TABLET PO (21:17)
[2021-01-05] MEDS: QUEtiapine Fumarate 200 MG TABLET PO (21:18)
[2021-01-05] MEDS: Mirtazapine 7.5 MG TABLET PO (21:18)
[2021-01-05] MEDS: Melatonin 3 MG TABLET 6 MG PO (21:18)
[2021-01-05] MEDS: cefTRIAXone sodium 1 GM in 0.9 % Sodium Chloride 50 ML IV (22:43)
[2021-01-06] MEDS: metroNIDAZOLE/NS 500 MG/100 ML PIGGYBACK 100 MG IV ×3 (06:32→23:07)
[2021-01-06] MEDS: Omeprazole 20 MG CAPSULE.DR PO (06:32)
[2021-01-06] MEDS: hydroCHLOROthiazide 25 MG TABLET 50 MG PO (07:14)
[2021-01-06] MEDS: 0.9 % Sodium Chloride Flush 3 ML SYRINGE IVFLUSH ×2 (07:14→14:57)
[2021-01-06] MEDS: Mesalamine 400 MG CAP.DRTAB. 800 MG PO ×3 (07:15→21:16)
[2021-01-06] MEDS: amLODIPine Besylate 10 MG TABLET PO (07:15)
[2021-01-06] MEDS: buPROPion HCl XL 150 MG TAB.ER.24H 450 MG PO (07:15)
[2021-01-06] MEDS: Tamsulosin HCL 0.4 MG CAPSULE PO (07:15)
--- NOTE | 2021-01-06 07:16 | PC.NURSE ---
01/05/212029 pt medicated with morphine 4mg iv for 8/10 abd pain.my computer was not working and kicked me out after scanned med but did not save yet.pharmacy notified in am and usure how to back track documentation.supervisor contact and service clerks called and gave me instructions but still unable to document.
[2021-01-06 07:34] VITALS: BP 122/85; PULSE 83; RESP 18; TEMP 36; O2SAT 95
[2021-01-06] MEDS: Docusate Sodium 100 MG CAPSULE PO ×2 (08:06→21:16)
[2021-01-06] MEDS: oxyCODONE HCl Immed Release 5 MG TABLET PO (08:06)
[2021-01-06] MEDS: polyethylene glycoL 3350 17 GM POWD.PACK PO (09:38)
[2021-01-06] MEDS: Morphine Sulfate 2 MG/ML CARTRIDGE IVPUSH ×3 (09:38→21:21)
[2021-01-06 11:54] VITALS: BP 111/74; PULSE 83; RESP 18; TEMP 36; O2SAT 94
--- NOTE | 2021-01-06 13:00 | HO.PM.IMPN ---
Subjective Subjective Date of Service: 01/06/21 Interval History: colitis Review of Systems Patient still has abdominal pain more prominently on the left lower side, he says get aggravated with little liquid food even. Denies any new complaint of chest pain or shortness of breath or fever or chills . Denies any cough Denies any weakness or numbness. Physical Exam Vital Signs: Vital Signs: Last Vital Signs Temp 96.8 F 01/06/21 11:54 Pulse 83 01/06/21 11:54 Resp 18 01/06/21 11:54 BP 111/74 01/06/21 11:54 Pulse Ox 94 01/06/21 11:54 Body Mass Index 22.2 Physical exam:ppearance:? Abdominal pain similar , unable to tolerate p.o. well. Denies any new complaint of chest pain or shortness of breath or abdominal pain or fever or chills or nausea or vomiting Denies any cough Denies any weakness or numbness. CVS: Normal heart rate and rhythm.? Pulses normal. Respiratory: No respiratory distress.? Breath sounds normal. 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 No rebound or guarding Skin: Skin warm and dry.? Normal skin color.? Normal skin turgor. Extremities: No lower extremity edema.? Gait well balanced well coordinated. Neuro: No motor deficit.? No sensory deficit.? Cranial nerves 2-12 intact. Objective Data Active Medications Acetaminophen (Acetaminophen 325 Mg Tablet) 650 mg PO Q6H PRN PRN Reason: Pain, Mild (Pain Scale 1-3) Amlodipine Besylate (Amlodipine Besylate 10 Mg Tablet) 10 mg PO DAILY [facility]; Protocol Last Admin: 01/06/21 07:15 Dose: 10 mg Documented by: GRETEL Bupropion HCl (Bupropion Hcl Xl 150 Mg Tab.Er.24h) 450 mg PO DAILY [facility] Last Admin: 01/06/21 07:15 Dose: 450 mg Documented by: GRETEL Docusate Sodium (Docusate Sodium 100 Mg Capsule) 100 mg PO BEDTIME [facility] Last Admin: 01/05/21 21:19 Dose: Not Given Documented by: JUAN MANUELRISM Non-Admin Reason: Patient Refused Hydrochlorothiazide (Hydrochlorothiazide 25 Mg Tablet) 50 mg PO DAILY [facility] Last Admin: 01/06/21 07:14 Dose: 50 mg Documented by: GRETEL Ceftriaxone Sodium 1 gm/ (Sodium Chloride) 50 mls @ 100 mls/hr IV Q24H [facility] Last Infusion: 01/05/21 23:17 Dose: 0 mls/hr Documented by: ADITHYA Metronidazole (Flagyl) 500 mg in 100 mls @ 100 mls/hr IV Q8H [facility] Last Infusion: 01/06/21 07:57 Dose: 100 mls/hr Documented by: GRETEL Promethazine HCl 12.5 mg/ (Sodium Chloride) 50.5 mls @ 202 mls/hr IV ONCE PRN PRN Reason: Nausea and Vomiting Lisinopril (Lisinopril 40 Mg Tablet) 40 mg PO DAILY [facility]; Protocol Last Admin: 01/03/21 09:06 Dose: 40 mg Documented by: PRINCE Melatonin (Melatonin 3 Mg Tablet) 6 mg PO BEDTIME [facility] Last Admin: 01/05/21 21:18 Dose: 6 mg Documented by: ADITHYA Mesalamine (Mesalamine 400 Mg Cap.Drtab.) 800 mg PO TID [facility] Last Admin: 01/06/21 07:15 Dose: 800 mg Documented by: GRETEL Mirtazapine (Mirtazapine 7.5 Mg Tablet) 7.5 mg PO BEDTIME [facility] Last Admin: 01/05/21 21:18 Dose: 7.5 mg Documented by: ADITHYA Morphine Sulfate (Morphine Sulfate 2 Mg/Ml Cartridge) 2 mg IVPUSH Q3H PRN; Protocol PRN Reason: Pain, Mild (Pain Scale 1-3) Naltrexone HCl (Naltrexone Hcl 50 Mg Tablet) 50 mg PO DAILY [facility] Last Admin: 01/06/21 07:15 Dose: Not Given Documented by: GRETEL Non-Admin Reason: Patient Refused Omeprazole (Omeprazole 20 Mg Capsule.) 20 mg PO DAILY@0630 [facility] Last Admin: 01/06/21 06:32 Dose: 20 mg Documented by: ADITHYA Ondansetron HCl (Ondansetron Hcl 4 Mg/2 Ml Vial) 4 mg IVPUSH Q8H PRN PRN Reason: Nausea and Vomiting Last Admin: 01/02/21 13:08 Dose: 4 mg Documented by: BIANCA Ondansetron HCl (Ondansetron Hcl 4 Mg/2 Ml Vial) 4 mg IVPUSH ONCE PRN PRN Reason: Nausea and Vomiting Oxycodone HCl (Oxycodone Hcl Immed Release 5 Mg Tablet) 5 mg PO Q6H PRN PRN Reason: Pain, Mild (Pain Scale 1-3) Last Admin: 01/06/21 08:06 Dose: 5 mg Documented by: GRETEL Quetiapine Fumarate (Quetiapine Fumarate 200 Mg Tablet) 200 mg PO BEDTIME [facility] Last Admin: 01/05/21 21:18 Dose: 200 mg Documented by: ADITHYA Sodium Biphosphate/Sodium Phosphate (Sodium Phosphate,[place]-Dibasic 133 Ml Enema) 133 ml AL ONCE PRN PRN Reason: flexible sig prep Last Admin: 01/02/21 14:15 Dose: 133 ml Documented by: TROY Comments: PRE PROCEDURE ORDER VIA DR. GRACIA Sodium Chloride (0.9 % Sodium Chloride Flush 3 Ml Syringe) [facility] Last Admin: 01/06/21 07:14 Dose: 3 ml Documented by: GRETEL Tamsulosin HCl (Tamsulosin Hcl 0.4 Mg Capsule) 0.4 mg PO DAILY [facility] Last Admin: 01/06/21 07:15 Dose: 0.4 mg Documented by: GRETEL Trazodone HCl (Trazodone Hcl 50 Mg Tablet) 50 mg PO BEDTIME [facility] Last Admin: 01/05/21 21:17 Dose: 50 mg Documented by: ADITHYA Labs CBC & Chem 7: 01/03/21 05:17 01/03/21 05:17 Assessment and Plan (1) Colitis: Status: Acute Assessment and Plan: 45-year-old male with past medical history of hepatitis-C, as well as hypertension presents to the hospital with bright red blood per rectum as well as diarrhea 1.Colitis/ bright red blood per rectum- most likely secondary to inflammatory versus infectious colitis - CT abdomen showing colitis abd pain seems improving Colonoscopy shows-erythema, scattered ulcer in sigmoid colon, biopsies obtained-show possible ischemic colitis Moderate diverticulosis Small nonbleeding hemorrhoids abd pain simialr , still has moderate discomfort ,? but no more bloody diarrhea ?on IV antibiotic and iv fluids-ceftriaxone and metronidazole day5, pain control with iv morphine switched to clear liquids ? unable to tolerate yet GI follow-up-d/w Dr alfaro -added mesalmine may need come off antibiotics and mesalamine -? pathology seems ischemic colitis-Gi will follow up 2. colitis: Seems slowly improving still has some stool with blood - most likely infectious - has no history of inflammatory bowel disease - LDH negative - will start him on IV antibiotic Stool studies including C diff need to be sent. 3. HTN-stable - continue home amlodipine, lisinopril 4. mood disorder continue home medications Quality Stroke Does the patient have a stroke diagnosis?: No VTE Prior VTE?: No VTE Risk Level:: Medical - moderate - high VTE Device Contraindication: N/A - Device Ordered VTE Drug Contraindication: Treatment Not Indicated
[2021-01-06 15:38] VITALS: BP 116/88; PULSE 91; RESP 20; TEMP 36.9; O2SAT 95
[2021-01-06 19:21] VITALS: BP 133/94; PULSE 83; RESP 18; TEMP 36.6; O2SAT 95
[2021-01-06] MEDS: traZODone HCL 50 MG TABLET PO (21:16)
[2021-01-06] MEDS: QUEtiapine Fumarate 200 MG TABLET PO (21:16)
[2021-01-06] MEDS: Melatonin 3 MG TABLET 6 MG PO (21:16)
[2021-01-06] MEDS: Mirtazapine 7.5 MG TABLET PO (21:16)
[2021-01-06] MEDS: cefTRIAXone sodium 1 GM in 0.9 % Sodium Chloride 50 ML IV (22:28)
[2021-01-06 23:36] VITALS: BP 96/65; PULSE 70; RESP 16; TEMP 36.4; O2SAT 95
[2021-01-07] MEDS: 0.9 % Sodium Chloride Flush 3 ML SYRINGE IVFLUSH ×2 (00:19→08:27)
[2021-01-07 06:03] LABS: Hemoglobin 15.8 g/dl (14.0-18.0); Mean Corpuscular HGB Conc 33.6 g/dl (31.0-36.0); Mean Corpuscular Hemoglobin 29.9 pg (27.0-33.0); Mean Platelet Volume 9.6 fL (9.4-12.4); Platelet Count 309 X10*3/uL (160-400); Red Blood Count 5.28 X10*6/uL (4.60-5.80); Red Cell Distribution Width 12.9 % (11.0-16.0); White Blood Count 6.3 X10*3/uL (4.8-10.8)
[2021-01-07 06:35] LABS: Anion Gap 11 (12-20); Blood Urea Nitrogen 14 mg/dL (9-16); Calcium 10.1 mg/dL (8.4-10.2); Carbon Dioxide 34 mmol/L (22-29); Chloride 99 mmol/L (96-108); Creatinine Clr Calc Pharmacy 64.9; Estimated Glomerular Filt Rate 53; Glucose Random 88 mg/dL (60-115); Potassium 4.2 mmol/L (3.3-5.1); Sodium 140 mmol/L (135-145)
[2021-01-07] MEDS: Omeprazole 20 MG CAPSULE.DR PO (06:47)
[2021-01-07] MEDS: metroNIDAZOLE/NS 500 MG/100 ML PIGGYBACK 100 MG IV ×2 (06:47→15:28)
[2021-01-07 08:00] VITALS: BP 100/69; PULSE 84; RESP 18; TEMP 36.5; O2SAT 94
[2021-01-07] MEDS: Mesalamine 400 MG CAP.DRTAB. 800 MG PO ×3 (08:26→20:26)
[2021-01-07] MEDS: Naltrexone HCl 50 MG TABLET PO (08:26)
[2021-01-07] MEDS: buPROPion HCl XL 150 MG TAB.ER.24H 450 MG PO (08:26)
[2021-01-07] MEDS: Tamsulosin HCL 0.4 MG CAPSULE PO (08:27)
[2021-01-07 08:31] VITALS: BP 113/83; PULSE 74
[2021-01-07] MEDS: amLODIPine Besylate 10 MG TABLET PO (08:31)
[2021-01-07 08:38] VITALS: BP 118/83; PULSE 74; RESP 16; TEMP 36.8; O2SAT 93
[2021-01-07 11:37] VITALS: BP 111/77; PULSE 87; RESP 18; TEMP 36.4; O2SAT 93
--- NOTE | 2021-01-07 11:54 | P.PNIM_ITS ---
Subjective Subjective Date of Service: 01/07/21 Interval History: Seen in f/u for what looks like ischemic colitis pain is much better, no blood in stool Review of Systems no fever abdominal pain is better Physical Exam Vital Signs: Vital Signs: Last Vital Signs Temp 97.6 F 01/07/21 11:37 Pulse 87 01/07/21 11:37 Resp 18 01/07/21 11:37 BP 111/77 01/07/21 11:37 Pulse Ox 93 01/07/21 11:37 Body Mass Index 22.2 General: AO X 3, no acute distress Resp: CTA bilateral CVS: S1,S2,RRR GI: +BS, moderate mid abd tenderness, no guarding, no rebound, no distention Skin: No rash Neuro: motor grossly intact Psych: appropriate affect Objective Data Active Medications Acetaminophen (Acetaminophen 325 Mg Tablet) 650 mg PO Q6H PRN PRN Reason: Pain, Mild (Pain Scale 1-3) Amlodipine Besylate (Amlodipine Besylate 10 Mg Tablet) 10 mg PO DAILY [facility]; Protocol Last Admin: 01/07/21 08:31 Dose: 10 mg Documented by: DERRELL Bupropion HCl (Bupropion Hcl Xl 150 Mg Tab.Er.24h) 450 mg PO DAILY [facility] Last Admin: 01/07/21 08:26 Dose: 450 mg Documented by: DERRELL Docusate Sodium (Docusate Sodium 100 Mg Capsule) 100 mg PO BEDTIME [facility] Last Admin: 01/06/21 21:16 Dose: 100 mg Documented by: NICO Hydrochlorothiazide (Hydrochlorothiazide 25 Mg Tablet) 50 mg PO DAILY [facility] Last Admin: 01/06/21 07:14 Dose: 50 mg Documented by: GRETEL Ceftriaxone Sodium 1 gm/ (Sodium Chloride) 50 mls @ 100 mls/hr IV Q24H [facility] Last Infusion: 01/06/21 23:09 Dose: 0 mls/hr Documented by: NICO Metronidazole (Flagyl) 500 mg in 100 mls @ 100 mls/hr IV Q8H [facility] Last Infusion: 01/07/21 08:27 Dose: 0 mls/hr Documented by: DERRELL Promethazine HCl 12.5 mg/ (Sodium Chloride) 50.5 mls @ 202 mls/hr IV ONCE PRN PRN Reason: Nausea and Vomiting Sodium Chloride (Ns) 1,000 mls @ 150 mls/hr IVCONT .Q6H40M [facility] Stop: 01/08/21 01:19 Lisinopril (Lisinopril 40 Mg Tablet) 40 mg PO DAILY [facility]; Protocol Last Admin: 01/03/21 09:06 Dose: 40 mg Documented by: PRINCE Melatonin (Melatonin 3 Mg Tablet) 6 mg PO BEDTIME [facility] Last Admin: 01/06/21 21:16 Dose: 6 mg Documented by: NICO Mesalamine (Mesalamine 400 Mg Cap.Drtab.) 800 mg PO TID [facility] Last Admin: 01/07/21 08:26 Dose: 800 mg Documented by: DERRELL Mirtazapine (Mirtazapine 7.5 Mg Tablet) 7.5 mg PO BEDTIME [facility] Last Admin: 01/06/21 21:16 Dose: 7.5 mg Documented by: NICO Morphine Sulfate (Morphine Sulfate 2 Mg/Ml Cartridge) 2 mg IVPUSH Q3H PRN; Protocol PRN Reason: Pain, Mild (Pain Scale 1-3) Last Admin: 01/06/21 21:21 Dose: 2 mg Documented by: NICO Naltrexone HCl (Naltrexone Hcl 50 Mg Tablet) 50 mg PO DAILY [facility] Last Admin: 01/07/21 08:26 Dose: 50 mg Documented by: DERRELL Omeprazole (Omeprazole 20 Mg Capsule.Dr) 20 mg PO DAILY@0630 [facility] Last Admin: 01/07/21 06:47 Dose: 20 mg Documented by: SHORTY Ondansetron HCl (Ondansetron Hcl 4 Mg/2 Ml Vial) 4 mg IVPUSH Q8H PRN PRN Reason: Nausea and Vomiting Last Admin: 01/02/21 13:08 Dose: 4 mg Documented by: BIANCA Ondansetron HCl (Ondansetron Hcl 4 Mg/2 Ml Vial) 4 mg IVPUSH ONCE PRN PRN Reason: Nausea and Vomiting Oxycodone HCl (Oxycodone Hcl Immed Release 5 Mg Tablet) 5 mg PO Q6H PRN PRN Reason: Pain, Mild (Pain Scale 1-3) Last Admin: 01/06/21 08:06 Dose: 5 mg Documented by: GRETEL Quetiapine Fumarate (Quetiapine Fumarate 200 Mg Tablet) 200 mg PO BEDTIME [facility] Last Admin: 01/06/21 21:16 Dose: 200 mg Documented by: NICO Sodium Biphosphate/Sodium Phosphate (Sodium Phosphate,[place]-Dibasic 133 Ml Enema) 133 ml NV ONCE PRN PRN Reason: flexible sig prep Last Admin: 01/02/21 14:15 Dose: 133 ml Documented by: TROY Comments: PRE PROCEDURE ORDER VIA DR. GRACIA Sodium Chloride (0.9 % Sodium Chloride Flush 3 Ml Syringe) 3 ml IVFLUSH QSHIFT [facility] Last Admin: 01/07/21 08:27 Dose: 3 ml Documented by: DERRELL Tamsulosin HCl (Tamsulosin Hcl 0.4 Mg Capsule) 0.4 mg PO DAILY [facility] Last Admin: 01/07/21 08:27 Dose: 0.4 mg Documented by: DERRELL Trazodone HCl (Trazodone Hcl 50 Mg Tablet) 50 mg PO BEDTIME [facility] Last Admin: 01/06/21 21:16 Dose: 50 mg Documented by: NICO Labs CBC & Chem 7: 01/07/21 05:23 01/07/21 05:23 Labs: Laboratory Results - last 24 hr 01/01/21 01/02/21 01/03/21 21:00 07:13 05:17 MCV MCH MCHC RDW Plt Count MPV Absolute Nucleated RBC Nucleated RBC % (auto) Anion Gap Creatinine 1.13 0.95 0.95 Estim Creat Clear Calc Estimated GFR Random Glucose Calcium 01/07/21 01/07/21 05:23 05:23 MCV 89.0 MCH 29.9 MCHC 33.6 RDW 12.9 Plt Count 309 D MPV 9.6 Absolute Nucleated RBC 0.000 Nucleated RBC % (auto) 0.0 Anion Gap 11 L Creatinine 1.44 H Estim Creat Clear Calc 64.9 Estimated GFR 53 Random Glucose 88 Calcium 10.1 D Microbiology Microbiology Results: Microbiology 01/01/21 23:52 Blood Culture - Final Blood - Venous No growth after 5 days. 01/01/21 23:52 Blood Culture - Final Blood - Venous No growth after 5 days. Assessment and Plan (1) Colitis: Status: Acute Assessment and Plan: 45-year-old male with past medical history of hepatitis-C, as well as hypertension presents to the hospital with bright red blood per rectum as well. He now has BERNARD BERNARD --likely pre renal vs renal hypOperfusion from low BP, hydrate and repeat tomorrow. 1.Colitis associated with bright red blood per rectum- most likely secondary to inflammatory versus infectious colitis -Improving. -No more blood in stool -Colonoscopy 01/[address] Gracia shows-erythema, scattered ulcer in sigmoid colon, biopsies obtained-show possible ischemic colitis Moderate diverticulosis, Small nonbleeding hemorrhoids abd pain simialr , still has moderate discomfort ,? but no more bloody diarrhea Ceftriaxone and metronidazole day 6--probably sufficient -Advance to low residue diet -change to PO Abx if tolerate diet. -Stop Mesalamine -Pathology report: Active colitis with ischemic changes; negative for features of chronicity, granuloma formation, dysplasia, and carcinoma: Not sure how to interpret this, will discuss with gI 3. HTN-stable - continue home amlodipine, lisinopril 4. mood disorder continue home medications Quality Stroke Does the patient have a stroke diagnosis?: No VTE Prior VTE?: No VTE Risk Level:: Medical - moderate - high VTE Device Contraindication: N/A - Device Ordered VTE Drug Contraindication: Treatment Not Indicated
[2021-01-07] MEDS: 0.9 % Sodium Chloride 1,000 ML 150 ML IVCONT (12:25)
[2021-01-07] MEDS: Morphine Sulfate 2 MG/ML CARTRIDGE IVPUSH (14:06)
[2021-01-07 15:43] VITALS: BP 123/83; PULSE 88; RESP 18; TEMP 36.3; O2SAT 94
[2021-01-07 19:49] VITALS: BP 138/83; PULSE 85; RESP 17; TEMP 36.4; O2SAT 93
[2021-01-07] MEDS: Melatonin 3 MG TABLET 6 MG PO (20:24)
[2021-01-07] MEDS: Docusate Sodium 100 MG CAPSULE PO (20:24)
[2021-01-07] MEDS: QUEtiapine Fumarate 200 MG TABLET PO (20:26)
[2021-01-07] MEDS: Mirtazapine 7.5 MG TABLET PO (20:26)
[2021-01-07] MEDS: traZODone HCL 50 MG TABLET PO (20:26)
[2021-01-08] VITALS: BP 97/73; PULSE 77; RESP 16; TEMP 36.4; O2SAT 94
[2021-01-08] MEDS: cefTRIAXone sodium 1 GM in 0.9 % Sodium Chloride 50 ML IV (00:24)
[2021-01-08] MEDS: Morphine Sulfate 2 MG/ML CARTRIDGE IVPUSH (00:26)
[2021-01-08] MEDS: metroNIDAZOLE/NS 500 MG/100 ML PIGGYBACK 100 MG IV ×2 (00:28→06:49)
[2021-01-08 03:10] VITALS: BP 99/59; PULSE 76; RESP 17; TEMP 36.8; O2SAT 94
[2021-01-08 06:36] LABS: Anion Gap 12 (12-20); Carbon Dioxide 26 mmol/L (22-29); Chloride 104 mmol/L (96-108); Creatinine Clr Calc Pharmacy 88.1; Estimated Glomerular Filt Rate > 60; Glucose Random 94 mg/dL (60-115); Sodium 138 mmol/L (135-145)
[2021-01-08] MEDS: Omeprazole 20 MG CAPSULE.DR PO (06:49)
[2021-01-08 06:51] LABS: Blood Urea Nitrogen 23 mg/dL (9-16); Calcium 8.9 mg/dL (8.4-10.2)
[2021-01-08] MEDS: Mesalamine 400 MG CAP.DRTAB. 800 MG PO (07:52)
[2021-01-08] MEDS: oxyCODONE HCl Immed Release 5 MG TABLET PO ×2 (07:52→12:29)
[2021-01-08] MEDS: buPROPion HCl XL 150 MG TAB.ER.24H 450 MG PO (07:52)
[2021-01-08] MEDS: Tamsulosin HCL 0.4 MG CAPSULE PO (07:53)
[2021-01-08] MEDS: amLODIPine Besylate 10 MG TABLET PO (07:53)
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
--- NOTE | 2021-01-08 08:47 | PM.PNNEP ---
Subjective Subjective Date of Service: 01/08/21 Interval history: Seen in f/u for what looks like ischemic colitis pain is much better, no blood in stool Physical Exam Vital Signs: Vital Signs: Last Vital Signs Temp 98.2 F 01/08/21 03:10 Pulse 76 01/08/21 03:10 Resp 17 01/08/21 03:10 BP 99/59 L 01/08/21 03:10 Pulse Ox 94 01/08/21 03:10 Body Mass Index 22.2 Const: Other: feels better Eyes: Other: no jaundice Resp: Auscultation: clear to auscultation bilaterally Cardio: Rate: regular rate Rhythm: regular rhythm GI: Other: abdomen soft, less tender to palpation, no rebound, midline scar Extrem: Other: no edema Objective Data Labs CBC & Chem 7: 01/07/21 05:23 01/08/21 05:59 Labs: Laboratory Results - last 24 hr 01/08/21 05:59 Sodium 138 Potassium 4.0 Chloride 104 Carbon Dioxide 26 Anion Gap 12 BUN 23 H D Creatinine 1.06 Estim Creat Clear Calc 88.1 Estimated GFR > 60 Random Glucose 94 Calcium 8.9 D Microbiology Microbiology Results: Microbiology 01/01/21 23:52 Blood - Venous Blood Culture - Final No growth after 5 days. 01/01/21 23:52 Blood - Venous Blood Culture - Final No growth after 5 days. Procedures Date of Service Date of Service: 01/08/21 Assessment & Plan Assessment and plan (1) Acute kidney injury: Status: Acute Assessment and Plan: Prerenal BERNARD resolved. Appears euvolemic. Will sign off, call if further renal help needed Time Spent With Patient Time: Total time spent is greater than 50% in coordination of care (as documented) at patient's floor/unit and/or counseling patient: Progress Note: Quality Stroke Does the patient have a stroke diagnosis?: No
--- NOTE | 2021-01-08 09:13 | P.DS_ITS ---
DS: Providers Provider Date of Service: 01/08/21 Date of admission: 01/02/21 00:51 Primary care physician: Clotilde Nguyen MD Consults: 01/02/21 05:04 Consult to Gastroenterology Routine Consulting Provider: Richard Huff Reason for consultation: colitis Has provider been notified: No 01/07/21 10:04 Consult to Nephrology Routine Consulting Provider: Franklin Tinajero Reason for consultation: bernard DS: Diagnosis Discharge Diagnosis (1) Acute kidney injury: Status: Acute DS: Summary Hospital Course Hospital Course: Admission HPI by Dr. Bellamy Chief Complaint: GI bleed This is a 45-year-old male with past medical history of HTN, hepatitis-C, intermittent rectal bleed, documented in his chart, depression anxiety, auditory hallucination, presents to the hospital with complaints of multiple episodes of bloody diarrhea.? Patient reports that his symptoms started yesterday, associated with diffuse abdominal pain, no nausea or vomiting, no fever or chills.? He has had multiple bloody bowel movements today and 1 episode while in the ED.? Patient denies any headache, change in vision, no chest pain, no shortness of breath, no palpitations.? No urinary symptoms and no lower extremity edema. Arrival to the ED? patient is hemodynamically stable with no significant abnormal vitals Labs are unremarkable common COVID-19 negative, Abdomen pelvic CT shows circumferential wall thickening of the descending colon with associated inflammatory change, consistent with acute colitis.? Findings could be related to an infectious or inflammatory etiology.? Ischemic process is thought less likely.? No evidence of perforation or abscess. He has multiple bilateral renal stones but I am not change, and redemonstrated periportal lymph nodes which are not changed.? No new increase lymphadenopathy Patient will be admitted for further management Hospital course: patient was admitted for presumed infiection vs imflamatory colitis asssociated with rectal bleeding as such was treated with IV A antibiitocs (Ceftiraone and Flagyl). He had colonoscopy on 01/[address] Winkler?with findings of-erythema, scattered ulcer in sigmoid colon, biopsies obtained-show possible ischemic colitis Moderate diverticulosis, Small nonbleeding hemorrhoids. He completed 7 days of antibiotics, has no fever, last WBC is normal, has no further rectal bleeding, was started on Mesalamine but stopped it is beleived that he likely suffered ischemic from hypotension as blood pressure have been on lower side and he is on hefty dose of Lisinopril 40 mg daily, chorlthalidone 50 daily and Norvasc 5. Lisinopril and Chrolthalidone are being disocntinued. Of note he also developped BERNARD on 01/07 Creatinine 1.44 and corrected the next day after IVF to 1.06. Diet has been advanced and he is tolerating regular diet. He is comfortable with plan to go home and to follow up with Dr. Winkler (GI) and PCP.. To stop taking Lisinopril and Chlorthalidone. Time Spent with Patient Time attestation: Total time spent providing and/or coordinating discharge services: Discharge coordination time: Greater than 30 minutes Quality: Stroke Does the patient have a stroke diagnosis?: No Physical Exam Vital Signs: Vital Signs: Last Vital Signs Temp 98.2 F 01/08/21 03:10 Pulse 76 01/08/21 03:10 Resp 17 01/08/21 03:10 BP 99/59 L 01/08/21 03:10 Pulse Ox 94 01/08/21 03:10 Body Mass Index 22.2 General: AO X 3, no acute distress Resp: CTA bilateral CVS: S1,S2,RRR GI: +BS, minimal tenderness, no distention, no guarding. Skin: No rash Neuro: motor grossly intact Psych: appropriate affect DS: Data Data Completed and Pending Completed studies during hospitalization [Text1]: Pending at discharge 01/02/21 14:37 Surgical [PTH] Routine Labs on day of discharge: Laboratory Results - last 24 hr 01/08/21 05:59 Sodium 138 Potassium 4.0 Chloride 104 Carbon Dioxide 26 Anion Gap 12 BUN 23 H D Creatinine 1.06 Estim Creat Clear Calc 88.1 Estimated GFR > 60 Random Glucose 94 Calcium 8.9 D Discharge Plan Discharge Anticipated Discharge Date/Time: 01/08/21 09:07 Patient Disposition: Home, Self-Care Discharge Diagnosis: rectal bleeding, colitis Referrals: Clotilde Baca MD [Primary Care Provider] - 1 Week Discharge Medications: Continued acetaminophen [Tylenol Extra Strength] 500 mg tablet 1,000 mg PO QID PRN (Reason: fever or pain) Qty: 14 RF: 0 trazodone 50 mg tablet 50 mg PO BEDTIME RF: 0 naltrexone 50 mg tablet 50 mg PO DAILY RF: 0 quetiapine 200 mg tablet 200 mg PO BEDTIME RF: 0 amlodipine 5 mg tablet 5 mg PO DAILY@1200 RF: 0 tamsulosin 0.4 mg capsule 0.4 mg PO DAILY RF: 0 mirtazapine 7.5 mg tablet 7.5 mg PO BEDTIME RF: 0 lubiprostone [Amitiza] 24 mcg capsule 1 cap PO DAILY RF: 0 quetiapine 50 mg tablet 50 mg PO BID RF: 0 polyethylene glycol 3350 [Miralax] 17 gram Powder In Packet 17 g PO DAILY RF: 0 nicotine (polacrilex) 2 mg Gum 2 mg BUCCAL Q1H RF: 0 ondansetron HCl [Zofran] 4 mg Tablet 4 mg PO Q8H PRN (Reason: Nausea) RF: 0 sennosides-docusate sodium [Senna-S] 8.6-50 mg Tablet 1 tab-cap PO BID RF: 0 docusate sodium [Colace] 100 mg Capsule 100 mg PO BID RF: 0 ammonium lactate 12 % Cream 1 appl TOPICAL BID RF: 0 oxycodone 5 mg Tablet 5 mg PO BID PRN (Reason: Pain) RF: 0 lactulose 10 gram/15 mL Solution 10 g PO DAILY RF: 0 bupropion HCl [Wellbutrin XL] 300 mg tablet extended release 24 hr 450 mg PO QAM RF: 0 Discontinued lisinopril 40 mg tablet 40 mg PO DAILY Qty: 20 RF: 0 chlorthalidone 50 mg tablet 50 mg PO DAILY RF: 0 ibuprofen 600 mg tablet 600 mg PO Q6H PRN (Reason: pain) Qty: 20 RF: 0 Discharge Orders: Discharge Order (Routine); Ordered 01/08/21 Ordered By: Hayden Marie Diet: advance to usual diet Activity on Discharge: As tolerated Stand Alone Forms: Patient Portal Discharge page Care Plan Goals: prevent rehospitalization and further work up into colitis Health Concerns: ischemic colitis Plan of Treatment: Follow up with Dr. Winkler in 1 week, follow up with your PCP Assessment: As above
--- NOTE | 2021-01-08 10:00 | MHC.CM.PN ---
PATIENT IS DISCHARGED HOME - SELF CARE. RN AWARE OF PLAN.
== END 2021-01-08 13:21 | disposition home or self-care (01) | DRG 245 ==
LOC: HO.ED 23:16 → HO.EDOVER 01-02 00:55 → HO.S3 01-02 15:15
PROVIDERS: Internal Medicine; Internal Medicine Gastroenterology; Nurse Practitioner Family; Admitting Provider Internal Medicine; Emergency Provider Internal Medicine; PCP Internal Medicine; Visit Provider Internal Medicine
PROC: 0DJD8ZZ Inspection of Lower Intestinal Tract, Via Natural or Artificial Opening Endoscopic (ICD-10-PCS; CPT 45330; principal; 2021-01-02 14:10)
DX: K51.911 Ulcerative colitis, unspecified with rectal bleeding (principal); N17.9 Acute kidney failure, unspecified; K57.31 Diverticulosis of large intestine without perforation or abscess with bleeding; K64.8 Other hemorrhoids; F41.9 Anxiety disorder, unspecified; F39 Unspecified mood [affective] disorder; K52.9 Noninfective gastroenteritis and colitis, unspecified; I10 Essential (primary) hypertension; K21.9 Gastro-esophageal reflux disease without esophagitis; K59.09 Other constipation; Z20.822 Contact with and (suspected) exposure to COVID-19; Z87.891 Personal history of nicotine dependence; Z79.891 Long term (current) use of opiate analgesic; Z79.899 Other long term (current) drug therapy
CPT/HCPCS: 36415; 74178; 80048; 80076; 83605; 83690; 84484; 85025; 85027; 85610; 87040; 87635; 88305; 93005; 96361; 96365; 96375; 99285; 99291; J0696; J2270; J2370; J2405; Q9967

== ENCOUNTER → 2021-01-15 10:43 | Outpatient (BNVA) | payer MEDICAID, SELFPAY | PROVIDERS: PCP Internal Medicine; Visit Provider Physician Assistant ==

== ENCOUNTER 2021-06-17 12:32 | Outpatient (REF) | payer MEDICAID, SELFPAY ==
[2021-06-18 08:14] LABS: Hepatitis B Surface Antigen Negative (Negative)
[2021-06-18 08:52] LABS: HBS Num1 69.36 mIU/mL (0-7.99); HBc Num1 0.68 S/CO (0.00-0.79); Hepatitis B Core Antibody Nonreactive (Nonreactive); ~Hepatitis B Surface Antibody REACTIVE (Nonreactive)
[2021-06-21 14:19] LABS: FIB-ALT 50 U/L (9-46); FIB-Alpha-2-Macroglobulin 363 mg/dL (106-279); FIB-Apolipoprotein A1 147 mg/dL (94-176); FIB-GGT 43 U/L (3-95); FIB-Haptoglobin 70 mg/dL (43-212); FIB-Total Bilirubin 0.6 mg/dL (0.2-1.2); Liver Fibrosis Score 0.62; Liver Fibrosis Stage F3; Nec Inflam Act Grade A1-A2
[2021-06-22 15:17] LABS: HCV Log PCR 6.85 Log IU/mL (NOT DETECTED); HepC Viral Load 7150000 IU/mL (NOT DETECTED)
== END 2021-06-17 12:33 | disposition home or self-care (01) ==
LOC: HO.LAB 12:32
PROVIDERS: PCP Internal Medicine; Visit Provider Physician Assistant
DX: B19.20 Unspecified viral hepatitis C without hepatic coma (principal); R74.01 Elevation of levels of liver transaminase levels
CPT/HCPCS: 36415; 81596; 86704; 86706; 87340; 87522

== ENCOUNTER 2021-08-04 00:39 | Inpatient (IN) | payer MEDICAID, OTHER, SELFPAY ==
--- NOTE | 2021-08-04 | ECG_ITS ---
Test Reason : MEDICAL CLEARANCE Blood Pressure : / mmHG Vent. Rate : 055 BPM Atrial Rate : 055 BPM P-R Int : 146 ms QRS Dur : 094 ms QT Int : 442 ms P-R-T Axes : -10 008 015 degrees QTc Int : 422 ms Sinus bradycardia Minimal voltage criteria for LVH, may be normal variant ( R in aVL ) Borderline ECG When compared with ECG of 01-JAN-2021 21:06, Nonspecific T wave abnormality now evident in Anterior leads Referred By: Melissa Kraus Electronically Signed By:Alvaro Schulte
[2021-08-04 00:48] VITALS: BP 155/98; PULSE 96; RESP 16; TEMP 36.6; O2SAT 95; BMI 26.4
[2021-08-04 01:22] VITALS: BP 140/87; PULSE 92; RESP 16; TEMP 37.1; O2SAT 93
[2021-08-04 01:23] LABS: Appearance Urine HAZY; Color Urine YELLOW; Glucose Urine UA NEG (NEG); Leukocyte Esterase Urine NEG (NEG); Nitrite Urine NEG (NEG); PH 5.5 (5.0-8.0); Specific Gravity - Urine >= 1.030 (1.005-1.025); Urine Blood 2+ (NEG); Urine Ketones 15 MG/DL (NEG); Urine Protein 1+ MG/DL (NEG-TRACE)
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
[2021-08-04 01:36] LABS: Bacteria Urine 2+ /LPF; Mucus Urine 2+ /LPF; Squamous Epithelial Cell Urine 2+ /LPF
[2021-08-04 01:37] LABS: Amphetamine Screen Urine Not Detected (Not Detect); Barbiturates, Urine Not Detected (Not Detect); Benzodiazepines Screen Urine Not Detected (Not Detect); Cannabinoid Screen Urine Not Detected (Not Detect); Cocaine Screen Urine POSITIVE (Not Detect); Fentanyl, urine POSITIVE (Not Detect); Opiate Screen Urine POSITIVE (Not Detect); Phencyclidine Screen Urine POSITIVE (Not Detect)
[2021-08-04 01:38] LABS: Calcium Oxalate Crystals Urine 2+ /LPF
[2021-08-04 01:42] LABS: COVID-19 Test Negative (Negative)
[2021-08-04 01:58] LABS: MANUAL DIFF FLAG NO
[2021-08-04 01:59] LABS: Basophils Absolute Auto 0.1 X10*3/uL (0.0-0.2); Basophils Percent Auto 0.4 % (0-2); Hemoglobin 15.8 g/dl (14.0-18.0); Imm Gran Abs Auto 0.05 X10*3/uL (0.00-0.03); Imm Gran Pct Auto 0.4 % (0.0-0.4); Lymphocytes Absolute Auto 1.1 X10*3/uL (1.2-4.9); Lymphocytes Percent Auto 8.3 % (20-40); Mean Corpuscular HGB Conc 32.9 g/dl (31.0-36.0); Mean Corpuscular Hemoglobin 29.7 pg (27.0-33.0); Mean Corpuscular Volume 90.2 fL (80.0-98.0); Mean Platelet Volume 9.9 fL (9.4-12.4); Monocytes Absolute Auto 0.8 X10*3/uL (0.1-1.2); Monocytes Percent Auto 6.3 % (2-11); Neutrophils Absolute Auto 10.9 x10*3/uL (2.0-8.3); Neutrophils Percent Auto 84.6 % (45-73); Platelet Count 283 X10*3/uL (160-400); Red Blood Count 5.32 X10*6/uL (4.60-5.80); Red Cell Distribution Width 14.2 % (11.0-16.0); White Blood Count 12.8 X10*3/uL (4.8-10.8)
[2021-08-04 02:15] LABS: Ethanol < 10 mg/dL
[2021-08-04 02:35] LABS: Alanine Aminotransferase 41 U/L (0-40); Albumin Level 4.8 g/dL (3.5-5.0); Alkaline Phosphatase 73 U/L (39-117); Anion Gap 18 (12-20); Aspartate Amino Transferase 61 U/L (5-37); Bilirubin Direct 0.4 mg/dL (0.0-0.5); Blood Urea Nitrogen 38 mg/dL (9-16); Calcium 10.6 mg/dL (8.4-10.2); Carbon Dioxide 27 mmol/L (22-29); Chloride 100 mmol/L (96-108); Creatinine Clr Calc Pharmacy 42.3; Estimated Glomerular Filt Rate 31; Glucose Random 107 mg/dL (60-115); Sodium 140 mmol/L (135-145); Total Protein 8.5 g/dL (6.5-8.0)
--- NOTE | 2021-08-04 05:34 | PC.NURSE ---
Patient is currently in bed watching TV, patient was earlier tearful and reported CAH voices telling him hurt self, provider notified/no new order at this time, BHN referral completed/confirmed pending evaluation in the morning, med rec completed/pending providers' approval, VSS, will continue to monitor.
--- NOTE | 2021-08-04 06:11 | PC.NURSE ---
patient appears to remain asleep at present respirations are even and unlabored patient appears in no distress
[2021-08-04] MEDS: Ibuprofen 600 MG TABLET PO (09:42)
[2021-08-04] MEDS: QUEtiapine Fumarate 50 MG TABLET PO ×2 (09:43→20:40)
--- NOTE | 2021-08-04 11:29 | PC.NURSE ---
2 nurses came over in an attempt to start IV line and patient is becoming disinterested in allowing us to start IV line
--- NOTE | 2021-08-04 13:38 | PC.NURSE ---
This nurse attempted to start an iv for hydration for this patient. Patient refused stating that he was already poked 3 times and did not want poked again. This rn notified PA regarding pt refusal. PA stated to recheck labs later after encouraging fluids. This nurse offered fluids to patient. Barron lu is drinking fluids at bedside. BARRON aware.
[2021-08-04 16:33] LABS: Alanine Aminotransferase 39 U/L (0-40); Albumin Level 4.5 g/dL (3.5-5.0); Alkaline Phosphatase 86 U/L (39-117); Anion Gap 15 (12-20); Aspartate Amino Transferase 69 U/L (5-37); Bilirubin Total 0.7 mg/dL (0.0-1.0); Blood Urea Nitrogen 34 mg/dL (9-16); Calcium 9.9 mg/dL (8.4-10.2); Carbon Dioxide 27 mmol/L (22-29); Chloride 99 mmol/L (96-108); Creatinine Clr Calc Pharmacy 63.3; Estimated Glomerular Filt Rate 49; Glucose Random 74 mg/dL (60-115); Potassium 3.9 mmol/L (3.3-5.1); Sodium 137 mmol/L (135-145); Total Protein 8.1 g/dL (6.5-8.0)
[2021-08-04 16:39] VITALS: BP 101/60; PULSE 54; RESP 15; TEMP 36.6; O2SAT 97
--- NOTE | 2021-08-04 20:08 | PC.NURSE ---
pt states he is hearing voices again and states the seroquel 50 mg po in the am and it helped. provider made aware.
--- NOTE | 2021-08-04 20:26 | PC.NURSE ---
pt is being seen by n at this time.
[2021-08-05 01:00] VITALS: BP 115/79; PULSE 72; RESP 16; O2SAT 97
--- NOTE | 2021-08-05 07:12 | PC.NURSE ---
patient appears to remain asleep at present respirations are even and unlabored patient appears in no distress
[2021-08-05] MEDS: buPROPion HCl XL 300 MG TAB.ER.24H PO (10:50)
[2021-08-05] MEDS: amLODIPine Besylate 5 MG TABLET PO (10:50)
[2021-08-05] MEDS: hydrOXYzine HCL 50 MG TABLET PO ×2 (10:50→22:04)
[2021-08-05] MEDS: Acetaminophen 325 MG TABLET 650 MG PO (12:02)
[2021-08-05] MEDS: QUEtiapine Fumarate 50 MG TABLET PO (13:30)
[2021-08-05 17:05] VITALS: BP 128/76; PULSE 62; RESP 17; TEMP 36.7; O2SAT 98
[2021-08-05] MEDS: Tamsulosin HCL 0.4 MG CAPSULE PO (18:06)
[2021-08-05] MEDS: Mirtazapine 7.5 MG TABLET PO (22:05)
[2021-08-05] MEDS: traZODone HCL 50 MG TABLET PO (22:05)
[2021-08-05] MEDS: QUEtiapine Fumarate 200 MG TABLET PO (22:05)
[2021-08-06 00:39] VITALS: BP 119/73; PULSE 86; RESP 17; TEMP 36.7; O2SAT 94
--- NOTE | 2021-08-06 07:42 | PC.NURSE ---
patient appears to remain asleep presently respirations are even and unlabored patient appears in no distress
[2021-08-06] MEDS: amLODIPine Besylate 5 MG TABLET PO (09:58)
[2021-08-06] MEDS: hydrOXYzine HCL 50 MG TABLET PO ×2 (09:58→20:50)
[2021-08-06] MEDS: buPROPion HCl XL 300 MG TAB.ER.24H PO (09:58)
[2021-08-06] MEDS: QUEtiapine Fumarate 50 MG TABLET PO (11:34)
[2021-08-06] MEDS: Milk of Magnesia 30 ML ORAL.SUSP PO (12:22)
[2021-08-06 17:30] VITALS: BP 118/77; PULSE 67; RESP 18; TEMP 37.1; O2SAT 96
[2021-08-06] MEDS: Tamsulosin HCL 0.4 MG CAPSULE PO (18:01)
[2021-08-06] MEDS: Mirtazapine 7.5 MG TABLET PO (20:50)
[2021-08-06] MEDS: QUEtiapine Fumarate 200 MG TABLET PO (20:50)
[2021-08-06] MEDS: traZODone HCL 50 MG TABLET PO (20:50)
[2021-08-06 23:46] VITALS: BP 131/75; PULSE 86; RESP 16; TEMP 37.1; O2SAT 93
--- NOTE | 2021-08-07 07:36 | PC.NURSE ---
report received from Jamie KYLE. Pt has been sleeping since this RN arrival.
[2021-08-07] MEDS: hydrOXYzine HCL 50 MG TABLET PO ×3 (09:16→21:23)
[2021-08-07] MEDS: amLODIPine Besylate 5 MG TABLET PO (09:16)
[2021-08-07] MEDS: buPROPion HCl XL 300 MG TAB.ER.24H PO (09:16)
[2021-08-07 10:49] VITALS: BP 123/74; PULSE 64; TEMP 37; O2SAT 95
--- NOTE | 2021-08-07 10:51 | PC.NURSE ---
Pt has been sleeping on and off. takes meds w/o difficulty. calm. coherent, denies SI during interaction with RN. is aware of placement on M3.
[2021-08-07 10:52] LABS: COVID-19 Test Negative (Negative); IDNOW Serial# 08D9AD1C
[2021-08-07] MEDS: Lactulose 20 GM/30 ML SOLUTION 30 GM PO (12:04)
--- NOTE | 2021-08-07 14:37 | PC.NURSE ---
RNto RN with Riana on M3.
--- NOTE | 2021-08-07 14:37 | PC.NURSE ---
Pt medicated with seroquel at his request for . States it's a male voice taunting patient, telling him he's a looser, that he relapsed because his mother . Denies SI.
[2021-08-07] MEDS: QUEtiapine Fumarate 50 MG TABLET PO ×2 (14:44→19:25)
--- NOTE | 2021-08-07 14:58 | PC.NURSE ---
Pt proudly reports that he had a large BM.
[2021-08-07 17:03] VITALS: BP 121/78; PULSE 99; RESP 18; TEMP 36.6; O2SAT 96
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
[2021-08-07] MEDS: Tamsulosin HCL 0.4 MG CAPSULE PO (18:11)
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
[2021-08-07 21:15] VITALS: BP 124/75; PULSE 75; RESP 17; TEMP 36.6; O2SAT 95
[2021-08-07] MEDS: QUEtiapine Fumarate 200 MG TABLET PO (21:22)
[2021-08-07] MEDS: Mirtazapine 7.5 MG TABLET PO (21:22)
[2021-08-07] MEDS: traZODone HCL 50 MG TABLET PO (21:22)
[2021-08-08 09:11] LABS: Estimated Average Glucose 105 mg/dL; Hemoglobin A1c % 5.3 %
[2021-08-08 09:39] LABS: Free T4 (Free Thyroxine) 0.96 ng/dL (0.71-1.85); Thyroid Stimulating Hormone 0.53 uIU/mL (0.32-4.0)
[2021-08-08 09:57] LABS: Alanine Aminotransferase 29 U/L (0-40); Albumin Level 3.6 g/dL (3.5-5.0); Alkaline Phosphatase 70 U/L (39-117); Anion Gap 14 (12-20); Aspartate Amino Transferase 27 U/L (5-37); Bilirubin Direct < 0.2 mg/dL (0.0-0.5); Bilirubin Total 0.4 mg/dL (0.0-1.0); Blood Urea Nitrogen 11 mg/dL (9-16); Calcium 9.3 mg/dL (8.4-10.2); Carbon Dioxide 26 mmol/L (22-29); Chloride 105 mmol/L (96-108); Cholesterol 153 mg/dL; Creatinine Clr Calc Pharmacy 121.7; Estimated Glomerular Filt Rate > 60; Folate 5.4 ng/mL (> or = 4.0); Glucose Fasting 92 mg/dL (60-99); HDL Cholesterol 38 mg/dL; LDL Cholesterol Calculated 91 mg/dl; Potassium 4.7 mmol/L (3.3-5.1); Sodium 138 mmol/L (135-145); Total Protein 6.8 g/dL (6.5-8.0); Triglycerides 123 mg/dL; Vitamin B12 423 pg/mL (200-900)
[2021-08-08 10:16] VITALS: BP 126/83; PULSE 73; RESP 17; TEMP 36.3; O2SAT 96
[2021-08-08] MEDS: amLODIPine Besylate 5 MG TABLET PO (10:21)
[2021-08-08] MEDS: hydrOXYzine HCL 50 MG TABLET PO ×3 (10:21→21:18)
[2021-08-08] MEDS: buPROPion HCl XL 300 MG TAB.ER.24H PO (10:21)
[2021-08-08] MEDS: QUEtiapine Fumarate 50 MG TABLET PO (10:48)
[2021-08-08] MEDS: Acetaminophen 325 MG TABLET 650 MG PO ×2 (12:03→21:18)
[2021-08-08] MEDS: QUEtiapine Fumarate 100 MG TABLET PO ×2 (13:02→17:04)
--- NOTE | 2021-08-08 15:42 | P.PNPSI_ITS ---
Subjective Subjective Date of Service: 08/08/21 Reason For Visit: AH/SI Interim History: c/o dep/anx/AH. DFA, MNA. wants meds for all of the abiove. agreeable to increase remeron to 30 mg at HS, seroquel to 300 mg at HS, seroquel PRNs to 100 mg each. per staff, CAH to kill self. +SI. date of mother's passing keeps changing. Hep C +. Mental Status Exam Mental Status Exam Narrative: appropriately dressed and groomed in street clothes. head down, poor eye contact. no PMA/PMR. cooperative. speech nml amount rate loudness, but flattened tone. thoughts linear and logical. affect constricted. mood depressed and anxious. +SI. no HI/AVH expressed. Diagnostics Vital Signs (24Hr): Vital Signs - 24 hr 08/07/21 17:03 08/07/21 21:15 08/08/21 10:16 Temperature 97.9 F 97.9 F 97.4 F Pulse Rate 99 75 73 Respiratory Rate 18 17 17 Blood Pressure 121/78 124/75 126/83 Pulse Oximetry 96 95 96 BMI result Body Mass Index 26.4 Labs Results: 08/04/21 01:54 08/08/21 08:21 Labs: Laboratory Results - last 48 hr 08/07/21 08/08/21 08/08/21 10:29 08:21 08:21 Sodium 138 Potassium 4.7 D Chloride 105 Carbon Dioxide 26 Anion Gap 14 BUN 11 D Creatinine 0.79 Estim Creat Clear Calc 121.7 Estimated GFR > 60 Fasting Glucose 92 Estimat Average Glucose 105 Hemoglobin A1c % 5.3 Calcium 9.3 D Total Bilirubin 0.4 Direct Bilirubin < 0.2 AST 27 D ALT 29 Alkaline Phosphatase 70 Total Protein 6.8 Albumin 3.6 Triglycerides 123 Cholesterol 153 LDL Cholesterol, Calc 91 HDL Cholesterol 38 Vitamin B12 Folate TSH 0.53 Free T4 0.96 COVID-19 ([facility]) Negative COVID-19 Clin Com See Note 08/08/21 08:21 Sodium Potassium Chloride Carbon Dioxide Anion Gap BUN Creatinine Estim Creat Clear Calc Estimated GFR Fasting Glucose Estimat Average Glucose Hemoglobin A1c % Calcium Total Bilirubin Direct Bilirubin AST ALT Alkaline Phosphatase Total Protein Albumin Triglycerides Cholesterol LDL Cholesterol, Calc HDL Cholesterol Vitamin B12 423 Folate 5.4 TSH Free T4 COVID-19 ([facility]) COVID-19 Clin Com Medications Medications Current Medications Acetaminophen (Acetaminophen 325 Mg Tablet) 650 mg PO Q6H PRN PRN Reason: Headache/Pain Mild Scale (1-3) Last Admin: 08/08/21 12:03 Dose: 650 mg Documented by: Al Hydroxide/Mg Hydroxide (Magnesium Hydrox/Alum Hydrox 30 Ml Oral.Susp) 30 ml PO Q6H PRN PRN Reason: Heartburn/Nausea Amlodipine Besylate (Amlodipine Besylate 5 Mg Tablet) 5 mg PO DAILY [facility]; Protocol Last Admin: 08/08/21 10:21 Dose: 5 mg Documented by: Bupropion HCl (Bupropion Hcl Xl 300 Mg Tab.Er.24h) 300 mg PO DAILY [facility] Last Admin: 08/08/21 10:21 Dose: 300 mg Documented by: Hydroxyzine HCl (Hydroxyzine Hcl 50 Mg Tablet) 50 mg PO BID [facility] Last Admin: 08/08/21 10:21 Dose: 50 mg Documented by: Hydroxyzine HCl (Hydroxyzine Hcl 50 Mg Tablet) 50 mg PO BID PRN PRN Reason: Anxiety Last Admin: 08/07/21 19:25 Dose: 50 mg Documented by: Magnesium Hydroxide (Milk Of Magnesia 30 Ml Oral.Susp) 30 ml PO DAILY PRN PRN Reason: Constipation Mirtazapine (Mirtazapine 30 Mg Tablet) 30 mg PO BEDTIME [facility] Nicotine Polacrilex (Nicotine Polacrilex 2 Mg Gum) 4 mg BUCCAL Q2H PRN PRN Reason: Nicotine Cravings Pt Own Med ( Glecaprevir- Pibrentasvir [ Mavyret] 100-40 Mg Tablet) 3 tab PO DAILY [facility] Last Admin: 08/08/21 10:19 Dose: 3 tab Documented by: Quetiapine Fumarate (Quetiapine Fumarate 100 Mg Tablet) 100 mg PO Q4H PRN PRN Reason: Anxiety/agitation Last Admin: 08/08/21 13:02 Dose: 100 mg Documented by: Quetiapine Fumarate (Quetiapine Fumarate 300 Mg Tablet) 300 mg PO BEDTIME [facility] Tamsulosin HCl (Tamsulosin Hcl 0.4 Mg Capsule) 0.4 mg PO DAILY@1730 [facility] Last Admin: 08/07/21 18:11 Dose: 0.4 mg Documented by: Trazodone HCl (Trazodone Hcl 50 Mg Tablet) 50 mg PO BEDTIME [facility] Last Admin: 08/07/21 21:22 Dose: 50 mg Documented by: Trazodone HCl (Trazodone Hcl 100 Mg Tablet) 100 mg PO BEDTIME PRN PRN Reason: Insomnia Allergies Allergies Allergy/AdvReac Type Severity Reaction Status Date / Time No Known Allergies Allergy Verified 01/15/21 10:44 [No Known Allergies*] Assessment & Plan Assessment & Plan (1) Depression: Status: Acute Code(s): F32.9 - Major depressive disorder, single episode, unspecified (2) Anxiety: Status: Acute Code(s): F41.9 - Anxiety disorder, unspecified (3) Auditory hallucinations: Status: Acute Code(s): R44.0 - Auditory hallucinations (4) Suicidal ideation: Status: Acute Code(s): R45.851 - Suicidal ideations Plan increase remeron to 30 mg QHS for sleep and depression and weight loss. increase seroquel to 300 mg QHS for sleep, anxiety, AH, weight loss. increase seroquel PRNs to 100 mg each for AH, anxiety. I spent ___35___ minutes with the patient and/or on the patient floor today, greater than?50% of which was spent counseling/coordinating care. Reason for contiued inpatient stay Substantial Risk for: harm to self, inability to function and rapid decompensation
[2021-08-08] MEDS: Tamsulosin HCL 0.4 MG CAPSULE PO (17:04)
[2021-08-08 20:55] VITALS: BP 124/77; PULSE 81; RESP 18; TEMP 36.6; O2SAT 94
[2021-08-08] MEDS: traZODone HCL 100 MG TABLET PO (21:17)
[2021-08-08] MEDS: QUEtiapine Fumarate 300 MG TABLET PO (21:17)
[2021-08-08] MEDS: Mirtazapine 30 MG TABLET PO (21:18)
[2021-08-08] MEDS: traZODone HCL 50 MG TABLET PO (21:18)
[2021-08-09 08:30] VITALS: BP 126/83; PULSE 86; RESP 16; TEMP 36.7; O2SAT 93
[2021-08-09] MEDS: hydrOXYzine HCL 50 MG TABLET PO ×3 (09:15→21:38)
[2021-08-09] MEDS: QUEtiapine Fumarate 100 MG TABLET PO ×2 (09:15→12:20)
[2021-08-09] MEDS: amLODIPine Besylate 5 MG TABLET PO (09:15)
[2021-08-09] MEDS: buPROPion HCl XL 300 MG TAB.ER.24H PO (09:15)
--- NOTE | 2021-08-09 09:50 | HO.PSYCHPN ---
Subjective Subjective Date of Service: 08/09/21 Reason For Visit: AH/SI Subjective Notes: Conditional Voluntary Healthcare Proxy: No Guardianship: No Medical Problems Affecting Mental Status: No Interim History: Patient was seen and discussed in rounds today. Records and plans were reviewed. He continues to be isolative, having some suicidal ideations but safe on the unit with no plans. No auditory or visual hallucinations. No complaints or side effects. No changes were made today Medication Compliance: Yes Attending Groups: Intermittent Review of Systems Review of Systems Yes all other systems are reviewed and are negative Mental Status Exam Mental Status Exam Narrative: In today's visit he is alert, oriented and pleasant. Speech is normal. Little eye contact. Affect is appropriate and constricted. No auditory or visual hallucinations. Some vague suicidal ideations with no plans. Cognitively he has slow thought processes. And their goal directed. Judgment is intact Diagnostics Vital Signs (24Hr): Vital Signs - 24 hr 08/08/21 10:16 08/08/21 20:55 Temperature 97.4 F 97.9 F Pulse Rate 73 81 Respiratory Rate 17 18 Blood Pressure 126/83 124/77 Pulse Oximetry 96 94 BMI result Body Mass Index 26.4 Labs Results: 08/04/21 01:54 08/08/21 08:21 Labs: Laboratory Results - last 48 hr 08/07/21 08/08/21 08/08/21 10:29 08:21 08:21 Sodium 138 Potassium 4.7 D Chloride 105 Carbon Dioxide 26 Anion Gap 14 BUN 11 D Creatinine 0.79 Estim Creat Clear Calc 121.7 Estimated GFR > 60 Fasting Glucose 92 Estimat Average Glucose 105 Hemoglobin A1c % 5.3 Calcium 9.3 D Total Bilirubin 0.4 Direct Bilirubin < 0.2 AST 27 D ALT 29 Alkaline Phosphatase 70 Total Protein 6.8 Albumin 3.6 Triglycerides 123 Cholesterol 153 LDL Cholesterol, Calc 91 HDL Cholesterol 38 Vitamin B12 Folate TSH 0.53 Free T4 0.96 COVID-19 ([facility]) Negative COVID-19 Clin Com See Note 08/08/21 08:21 Sodium Potassium Chloride Carbon Dioxide Anion Gap BUN Creatinine Estim Creat Clear Calc Estimated GFR Fasting Glucose Estimat Average Glucose Hemoglobin A1c % Calcium Total Bilirubin Direct Bilirubin AST ALT Alkaline Phosphatase Total Protein Albumin Triglycerides Cholesterol LDL Cholesterol, Calc HDL Cholesterol Vitamin B12 423 Folate 5.4 TSH Free T4 COVID-19 ([facility]) COVID-19 Clin Com Medications Medications Current Medications Acetaminophen (Acetaminophen 325 Mg Tablet) 650 mg PO Q6H PRN PRN Reason: Headache/Pain Mild Scale (1-3) Last Admin: 08/08/21 21:18 Dose: 650 mg Documented by: Al Hydroxide/Mg Hydroxide (Magnesium Hydrox/Alum Hydrox 30 Ml Oral.Susp) 30 ml PO Q6H PRN PRN Reason: Heartburn/Nausea Amlodipine Besylate (Amlodipine Besylate 5 Mg Tablet) 5 mg PO DAILY [facility]; Protocol Last Admin: 08/09/21 09:15 Dose: 5 mg Documented by: Bupropion HCl (Bupropion Hcl Xl 300 Mg Tab.Er.24h) 300 mg PO DAILY [facility] Last Admin: 08/09/21 09:15 Dose: 300 mg Documented by: Hydroxyzine HCl (Hydroxyzine Hcl 50 Mg Tablet) 50 mg PO BID [facility] Last Admin: 08/09/21 09:15 Dose: 50 mg Documented by: Hydroxyzine HCl (Hydroxyzine Hcl 50 Mg Tablet) 50 mg PO BID PRN PRN Reason: Anxiety Last Admin: 08/08/21 17:04 Dose: 50 mg Documented by: Magnesium Hydroxide (Milk Of Magnesia 30 Ml Oral.Susp) 30 ml PO DAILY PRN PRN Reason: Constipation Mirtazapine (Mirtazapine 30 Mg Tablet) 30 mg PO BEDTIME [facility] Last Admin: 08/08/21 21:18 Dose: 30 mg Documented by: Nicotine Polacrilex (Nicotine Polacrilex 2 Mg Gum) 4 mg BUCCAL Q2H PRN PRN Reason: Nicotine Cravings Pt Own Med ( Glecaprevir- Pibrentasvir [ Mavyret] 100-40 Mg Tablet) 3 tab PO DAILY [facility] Last Admin: 08/09/21 09:15 Dose: 3 tab Documented by: Quetiapine Fumarate (Quetiapine Fumarate 100 Mg Tablet) 100 mg PO Q4H PRN PRN Reason: Anxiety/agitation Last Admin: 08/09/21 09:15 Dose: 100 mg Documented by: Quetiapine Fumarate (Quetiapine Fumarate 300 Mg Tablet) 300 mg PO BEDTIME [facility] Last Admin: 08/08/21 21:17 Dose: 300 mg Documented by: Tamsulosin HCl (Tamsulosin Hcl 0.4 Mg Capsule) 0.4 mg PO DAILY@1730 [facility] Last Admin: 08/08/21 17:04 Dose: 0.4 mg Documented by: Trazodone HCl (Trazodone Hcl 50 Mg Tablet) 50 mg PO BEDTIME [facility] Last Admin: 08/08/21 21:18 Dose: 50 mg Documented by: Trazodone HCl (Trazodone Hcl 100 Mg Tablet) 100 mg PO BEDTIME PRN PRN Reason: Insomnia Last Admin: 08/08/21 21:17 Dose: 100 mg Documented by: Allergies Allergies Allergy/AdvReac Type Severity Reaction Status Date / Time No Known Allergies Allergy Verified 01/15/21 10:44 [No Known Allergies*] Assessment & Plan Assessment & Plan (1) Post traumatic stress disorder (PTSD): Status: Acute Code(s): F43.10 - Post-traumatic stress disorder, unspecified (2) MDD (major depressive disorder), recurrent, severe, with psychosis: Status: Acute Code(s): F33.3 - Major depressive disorder, recurrent, severe with psychotic symptoms (3) Opioid use disorder, moderate, in sustained remission: Status: Acute Code(s): F11.21 - Opioid dependence, in remission Plan Brian is a 46 y.o. male who carries a dx of PTSD, opioid use disorder. He presented to [facility] on 08/04/21 due to depression and SI. He had been sober x 2 years from opiates, however his mother a month ago and he relapsed. Utox is positive for fentanyl, opiates, PCP, and cocaine. He overdosed on heroin in attempt to kill himself. Endorses AH, hearing command AH telling him he should kill himself. Plan: 08/07: increase trazodone to 100 mg QHS for sleep. Add vistaril 50 mg BID PRN for agitation, anxiety. Pt recently restarted medications, will monitor for benefit. 08/09: Continue current regimen and plans with no changes today I spent minutes with the patient and/or on the patient floor today, greater than?50% of which was spent counseling/coordinating care. Reason for contiued inpatient stay Substantial Risk for: harm to self and med/psych decompensation
[2021-08-09] MEDS: chlorproMAZINE HCl 100 MG TABLET PO (13:10)
[2021-08-09] MEDS: cloNIDine HCL 0.1 MG TABLET PO (14:53)
[2021-08-09] MEDS: Tamsulosin HCL 0.4 MG CAPSULE PO (17:29)
[2021-08-09 18:00] VITALS: BP 129/74; PULSE 73; RESP 16; TEMP 37.7; O2SAT 96
[2021-08-09] MEDS: QUEtiapine Fumarate 300 MG TABLET PO (21:37)
[2021-08-09] MEDS: Mirtazapine 30 MG TABLET PO (21:37)
[2021-08-09] MEDS: traZODone HCL 50 MG TABLET PO (21:38)
[2021-08-09] MEDS: traZODone HCL 100 MG TABLET PO (21:42)
[2021-08-10 09:25] VITALS: BP 137/86; PULSE 62; RESP 16; TEMP 37.1; O2SAT 98
[2021-08-10] MEDS: amLODIPine Besylate 5 MG TABLET PO (10:06)
[2021-08-10] MEDS: hydrOXYzine HCL 50 MG TABLET PO ×3 (10:06→21:37)
[2021-08-10] MEDS: buPROPion HCl XL 300 MG TAB.ER.24H PO (10:06)
[2021-08-10] MEDS: chlorproMAZINE HCl 25 MG TABLET 50 MG PO (10:12)
--- NOTE | 2021-08-10 10:32 | HO.PSYCHPN ---
Subjective Subjective Date of Service: 08/10/21 Reason For Visit: AH/SI Subjective Notes: Conditional Voluntary Interim History: Patient was seen and discussed in rounds today. He had a very difficult morning yesterday because of extreme auditory hallucinations, holding his head with discomfort. The Seroquel was ineffective so I ordered Thorazine p.r.n. which was quite helpful and clonidine p.r.n. for anxiety. He states that the voices are much less and he is more comfortable. He has not been sleeping and I will raise the trazodone to 200 mg q.h.s.. No other complaints or changes. No SI. Review of Systems Review of Systems Hallucinations Yes all other systems are reviewed and are negative Diagnostics Vital Signs (24Hr): Vital Signs - 24 hr 08/09/21 18:00 Temperature 99.8 F Pulse Rate 73 Respiratory Rate 16 Blood Pressure 129/74 Pulse Oximetry 96 BMI result Body Mass Index 26.4 Labs Results: 08/04/21 01:54 08/08/21 08:21 Medications Medications Current Medications Acetaminophen (Acetaminophen 325 Mg Tablet) 650 mg PO Q6H PRN PRN Reason: Headache/Pain Mild Scale (1-3) Last Admin: 08/08/21 21:18 Dose: 650 mg Documented by: Al Hydroxide/Mg Hydroxide (Magnesium Hydrox/Alum Hydrox 30 Ml Oral.Susp) 30 ml PO Q6H PRN PRN Reason: Heartburn/Nausea Amlodipine Besylate (Amlodipine Besylate 5 Mg Tablet) 5 mg PO DAILY [facility]; Protocol Last Admin: 08/10/21 10:06 Dose: 5 mg Documented by: Bupropion HCl (Bupropion Hcl Xl 300 Mg Tab.Er.24h) 300 mg PO DAILY [facility] Last Admin: 08/10/21 10:06 Dose: 300 mg Documented by: Chlorpromazine HCl (Chlorpromazine Hcl 25 Mg Tablet) 50 mg PO Q4H PRN PRN Reason: Psychosis Last Admin: 08/10/21 10:12 Dose: 50 mg Documented by: Clonidine HCl (Clonidine Hcl 0.1 Mg Tablet) 0.1 mg PO BID PRN; Protocol PRN Reason: Anxiety Last Admin: 08/09/21 14:53 Dose: 0.1 mg Documented by: Hydroxyzine HCl (Hydroxyzine Hcl 50 Mg Tablet) 50 mg PO BID [facility] Last Admin: 08/10/21 10:06 Dose: 50 mg Documented by: Hydroxyzine HCl (Hydroxyzine Hcl 50 Mg Tablet) 50 mg PO BID PRN PRN Reason: Anxiety Last Admin: 08/09/21 12:23 Dose: 50 mg Documented by: Magnesium Hydroxide (Milk Of Magnesia 30 Ml Oral.Susp) 30 ml PO DAILY PRN PRN Reason: Constipation Mirtazapine (Mirtazapine 30 Mg Tablet) 30 mg PO BEDTIME [facility] Last Admin: 08/09/21 21:37 Dose: 30 mg Documented by: Nicotine Polacrilex (Nicotine Polacrilex 2 Mg Gum) 4 mg BUCCAL Q2H PRN PRN Reason: Nicotine Cravings Pt Own Med ( Glecaprevir- Pibrentasvir [ Mavyret] 100-40 Mg Tablet) 3 tab PO DAILY [facility] Last Admin: 08/10/21 10:06 Dose: 3 tab Documented by: Quetiapine Fumarate (Quetiapine Fumarate 100 Mg Tablet) 100 mg PO Q4H PRN PRN Reason: Anxiety/agitation Last Admin: 08/09/21 12:20 Dose: 100 mg Documented by: Quetiapine Fumarate (Quetiapine Fumarate 300 Mg Tablet) 300 mg PO BEDTIME [facility] Last Admin: 08/09/21 21:37 Dose: 300 mg Documented by: Tamsulosin HCl (Tamsulosin Hcl 0.4 Mg Capsule) 0.4 mg PO DAILY@1730 [facility] Last Admin: 08/09/21 17:29 Dose: 0.4 mg Documented by: Trazodone HCl (Trazodone Hcl 50 Mg Tablet) 50 mg PO BEDTIME [facility] Last Admin: 08/09/21 21:38 Dose: 50 mg Documented by: Trazodone HCl (Trazodone Hcl 100 Mg Tablet) 100 mg PO BEDTIME PRN PRN Reason: Insomnia Last Admin: 08/09/21 21:42 Dose: 100 mg Documented by: Allergies Allergies Allergy/AdvReac Type Severity Reaction Status Date / Time No Known Allergies Allergy Verified 01/15/21 10:44 [No Known Allergies*] Assessment & Plan Assessment & Plan (1) Post traumatic stress disorder (PTSD): Status: Acute Code(s): F43.10 - Post-traumatic stress disorder, unspecified (2) MDD (major depressive disorder), recurrent, severe, with psychosis: Status: Acute Code(s): F33.3 - Major depressive disorder, recurrent, severe with psychotic symptoms (3) Opioid use disorder, moderate, in sustained remission: Status: Acute Code(s): F11.21 - Opioid dependence, in remission Plan Brian is a 46 y.o. male who carries a dx of PTSD, opioid use disorder. He presented to [facility] ED on 08/04/21 due to depression and SI. He had been sober x 2 years from opiates, however his mother a month ago and he relapsed. Utox is positive for fentanyl, opiates, PCP, and cocaine. He overdosed on heroin in attempt to kill himself. Endorses AH, hearing command AH telling him he should kill himself. Plan: 08/07: increase trazodone to 100 mg QHS for sleep. Add vistaril 50 mg BID PRN for agitation, anxiety. Pt recently restarted medications, will monitor for benefit. 08/09: Continue current regimen and plans with no changes today 08/10: Continue current regimen and plans with increase of trazodone to 200 mg q.h.s. I spent minutes with the patient and/or on the patient floor today, greater than?50% of which was spent counseling/coordinating care. Patient educated on: medication risk/benefits Reason for contiued inpatient stay Substantial Risk for: harm to self and med/psych decompensation
[2021-08-10] MEDS: cloNIDine HCL 0.1 MG TABLET PO ×2 (11:02→18:40)
[2021-08-10] MEDS: QUEtiapine Fumarate 100 MG TABLET PO (11:02)
[2021-08-10] MEDS: chlorproMAZINE HCl 100 MG TABLET PO ×2 (11:50→18:39)
[2021-08-10] MEDS: Tamsulosin HCL 0.4 MG CAPSULE PO (18:39)
[2021-08-10 18:40] VITALS: BP 111/73; PULSE 73; RESP 18; O2SAT 94
[2021-08-10 21:35] VITALS: BP 104/62; PULSE 68; RESP 18; TEMP 36.6; O2SAT 96
[2021-08-10] MEDS: traZODone HCL 100 MG TABLET 200 MG PO (21:37)
[2021-08-10] MEDS: Mirtazapine 30 MG TABLET PO (21:37)
[2021-08-10] MEDS: traZODone HCL 50 MG TABLET PO (21:37)
[2021-08-10] MEDS: QUEtiapine Fumarate 300 MG TABLET PO (21:37)
[2021-08-11 09:40] VITALS: BP 136/78; PULSE 99; RESP 16; TEMP 37; O2SAT 94
[2021-08-11] MEDS: cloNIDine HCL 0.1 MG TABLET PO ×2 (09:40→15:41)
[2021-08-11] MEDS: chlorproMAZINE HCl 100 MG TABLET PO ×3 (09:40→20:50)
[2021-08-11] MEDS: amLODIPine Besylate 5 MG TABLET PO (09:41)
[2021-08-11] MEDS: hydrOXYzine HCL 50 MG TABLET PO ×3 (09:41→20:51)
[2021-08-11] MEDS: Milk of Magnesia 30 ML ORAL.SUSP PO (09:45)
[2021-08-11] MEDS: Acetaminophen 325 MG TABLET 650 MG PO (10:12)
--- NOTE | 2021-08-11 16:38 | HO.PSYCHPN ---
Subjective Subjective Date of Service: 08/11/21 Reason For Visit: AH/SI Interim History: Patient reports that he remains depressed and suicidal. He says that right now on the unit he does not have a plan but if he were to leave today he knows he will hurt himself. Patient shares that he has auditory hallucinations to harm himself and voices that say bad things about myself. Patient shares that his mother suddenly about a month ago; his grief is extra painful since the last time he talked to her before she he made a biting comment. Regarding medications patient says he remains anxious as well as depressed. He said they took off his Wellbutrin worried it was worsening auditory hallucinations and so he hopes that a new medication will be started for depression. He does not think Wellbutrin was that helpful anyway. Thorazine was added for help with AH as a p.r.n. which he says helps a little bit. Senior [employer]oples[employer] Developer reviewed medications; he is recently undergone numerous transitions so will leave medication regimen as is for now and defer to primary team Mental Status Exam Mental Status Exam Narrative: Pt is alert and oriented; behavior is cooperative and calm; patient is not in distress; dressed in casual attire; scruffy facial hair but adequate hygiene; mood is described as depressed and affect congruent, downcast; eye contact appropriate; Speech is a little soft and slowed but normal prosody; psychomotor retardation present; thought process is organized and goal directed; Thought content is grief, guilt and of his mother; also on treatment and dealing with AH; otherwise pertinent to relevant topics; +SI; no HI. AH that say bad things about him. Patients insight and judgment are impaired. Diagnostics Vital Signs (24Hr): Vital Signs - 24 hr 08/10/21 18:40 08/10/21 21:35 08/11/21 09:40 Temperature 97.9 F 98.6 F Pulse Rate 73 68 99 Respiratory Rate 18 18 16 Blood Pressure 111/73 104/62 136/78 Pulse Oximetry 94 96 94 BMI result Body Mass Index 26.4 Labs Results: 08/04/21 01:54 08/08/21 08:21 Medications Medications Current Medications Acetaminophen (Acetaminophen 325 Mg Tablet) 650 mg PO Q6H PRN PRN Reason: Headache/Pain Mild Scale (1-3) Last Admin: 08/11/21 10:12 Dose: 650 mg Documented by: Al Hydroxide/Mg Hydroxide (Magnesium Hydrox/Alum Hydrox 30 Ml Oral.Susp) 30 ml PO Q6H PRN PRN Reason: Heartburn/Nausea Amlodipine Besylate (Amlodipine Besylate 5 Mg Tablet) 5 mg PO DAILY [facility]; Protocol Last Admin: 08/11/21 09:41 Dose: 5 mg Documented by: Chlorpromazine HCl (Chlorpromazine Hcl 100 Mg Tablet) 100 mg PO Q4H PRN PRN Reason: Psychosis Last Admin: 08/11/21 15:41 Dose: 100 mg Documented by: Clonidine HCl (Clonidine Hcl 0.1 Mg Tablet) 0.1 mg PO BID PRN; Protocol PRN Reason: Anxiety Last Admin: 08/11/21 15:41 Dose: 0.1 mg Documented by: Hydroxyzine HCl (Hydroxyzine Hcl 50 Mg Tablet) 50 mg PO BID COUNT INCLUDES [facility] Last Admin: 08/11/21 09:41 Dose: 50 mg Documented by: Hydroxyzine HCl (Hydroxyzine Hcl 50 Mg Tablet) 50 mg PO BID PRN PRN Reason: Anxiety Last Admin: 08/11/21 11:44 Dose: 50 mg Documented by: Magnesium Hydroxide (Milk Of Magnesia 30 Ml Oral.Susp) 30 ml PO DAILY PRN PRN Reason: Constipation Last Admin: 08/11/21 09:45 Dose: 30 ml Documented by: Mirtazapine (Mirtazapine 30 Mg Tablet) 30 mg PO BEDTIME [facility] Last Admin: 08/10/21 21:37 Dose: 30 mg Documented by: Nicotine Polacrilex (Nicotine Polacrilex 2 Mg Gum) 4 mg BUCCAL Q2H PRN PRN Reason: Nicotine Cravings Pt Own Med ( Glecaprevir- Pibrentasvir [ Mavyret] 100-40 Mg Tablet) 3 tab PO DAILY [facility] Last Admin: 08/11/21 09:41 Dose: 3 tab Documented by: Quetiapine Fumarate (Quetiapine Fumarate 300 Mg Tablet) 300 mg PO BEDTIME COUNT [facility]CLUD[facility] Last Admin: 08/10/21 21:37 Dose: 300 mg Documented by: Tamsulosin HCl (Tamsulosin Hcl 0.4 Mg Capsule) 0.4 mg PO DAILY@1730 [facility] Last Admin: 08/10/21 18:39 Dose: 0.4 mg Documented by: Trazodone HCl (Trazodone Hcl 50 Mg Tablet) 50 mg PO BEDTIME [facility] Last Admin: 08/10/21 21:37 Dose: 50 mg Documented by: Trazodone HCl (Trazodone Hcl 100 Mg Tablet) 200 mg PO BEDTIME PRN PRN Reason: Insomnia Last Admin: 08/10/21 21:37 Dose: 200 mg Documented by: Allergies Allergies Allergy/AdvReac Type Severity Reaction Status Date / Time No Known Allergies Allergy Verified 01/15/21 10:44 [No Known Allergies*] Assessment & Plan Assessment & Plan (1) Post traumatic stress disorder (PTSD): Status: Acute Code(s): F43.10 - Post-traumatic stress disorder, unspecified (2) MDD (major depressive disorder), recurrent, severe, with psychosis: Status: Acute Code(s): F33.3 - Major depressive disorder, recurrent, severe with psychotic symptoms (3) Opioid use disorder, moderate, in sustained remission: Status: Acute Code(s): F11.21 - Opioid dependence, in remission Plan Brian is a 46 y.o. male who carries a dx of PTSD, opioid use disorder. He presented to [facility] on 08/04/21 due to depression and SI. He had been sober x 2 years from opiates, however his mother a month ago and he relapsed. Utox is positive for fentanyl, opiates, PCP, and cocaine. He overdosed on heroin in attempt to kill himself. Endorses AH, hearing command AH telling him he should kill himself. Plan: 08/07: increase trazodone to 100 mg QHS for sleep. Add vistaril 50 mg BID PRN for agitation, anxiety. Pt recently restarted medications, will monitor for benefit. 08/09: Continue current regimen and plans with no changes today 08/10: Continue current regimen and plans with increase of trazodone to 200 mg q.h.s. 08/11 continue current regimen for now I spent minutes with the patient and/or on the patient floor today, greater than?50% of which was spent counseling/coordinating care. Patient educated on: diagnosis and medication risk/benefits Informed Consent: understands Reason for contiued inpatient stay Substantial Risk for: harm to self and rapid decompensation
[2021-08-11 18:00] VITALS: BP 124/70; PULSE 69; RESP 16; TEMP 36.7; O2SAT 97
[2021-08-11] MEDS: Tamsulosin HCL 0.4 MG CAPSULE PO (18:35)
[2021-08-11] MEDS: Mirtazapine 30 MG TABLET PO (20:50)
[2021-08-11] MEDS: traZODone HCL 100 MG TABLET 200 MG PO (20:50)
[2021-08-11] MEDS: QUEtiapine Fumarate 300 MG TABLET PO (20:51)
[2021-08-11] MEDS: traZODone HCL 50 MG TABLET PO (20:51)
[2021-08-12 08:49] VITALS: BP 121/76; PULSE 69; TEMP 36.5; O2SAT 96
[2021-08-12] MEDS: hydrOXYzine HCL 50 MG TABLET PO ×2 (10:18→20:36)
[2021-08-12] MEDS: amLODIPine Besylate 5 MG TABLET PO (10:18)
[2021-08-12] MEDS: buPROPion HCl XL 300 MG TAB.ER.24H PO (12:42)
[2021-08-12] MEDS: Tamsulosin HCL 0.4 MG CAPSULE PO (17:15)
[2021-08-12 18:00] VITALS: BP 121/72; PULSE 67; RESP 16; TEMP 36.4; O2SAT 95
--- NOTE | 2021-08-12 18:45 | P.PNPSI_ITS ---
Subjective Subjective Date of Service: 08/12/21 Reason For Visit: AH/SI Interim History: pt found in bed. states no improvement. endorses SI and AH. agreeable to restart wellbutrin, DC thorazine, return to seroquel 100 mg PRN, and start clonidine 0.2 mg QHS for nightmares/insomnia. per staff, depressed. praying to . CAH to harm self. isolative. improved appetite and sleep. Mental Status Exam Mental Status Exam Narrative: appropriately dressed and groomed in street clothes. fair eye contact. no PMA/PMR. cooperative. speech nml amount rate loudness, but flattened tone. thoughts linear and logical. affect constricted. mood depressed and anxious. +SI. no HI/AVH expressed. Diagnostics Vital Signs (24Hr): Vital Signs - 24 hr 08/12/21 08:49 Temperature 97.7 F Pulse Rate 69 Blood Pressure 121/76 Pulse Oximetry 96 BMI result Body Mass Index 26.4 Labs Results: 08/04/21 01:54 08/08/21 08:21 Medications Medications Current Medications Acetaminophen (Acetaminophen 325 Mg Tablet) 650 mg PO Q6H PRN PRN Reason: Headache/Pain Mild Scale (1-3) Last Admin: 08/11/21 10:12 Dose: 650 mg Documented by: Al Hydroxide/Mg Hydroxide (Magnesium Hydrox/Alum Hydrox 30 Ml Oral.Susp) 30 ml PO Q6H PRN PRN Reason: Heartburn/Nausea Amlodipine Besylate (Amlodipine Besylate 5 Mg Tablet) 5 mg PO DAILY [facility]; Keri col Last Admin: 08/12/21 10:18 Dose: 5 mg Documented by: Bupropion HCl (Bupropion Hcl Xl 300 Mg Tab.Er.24h) 300 mg PO DAILY [facility] Last Admin: 08/12/21 12:42 Dose: 300 mg Documented by: Clonidine HCl (Clonidine Hcl 0.1 Mg Tablet) 0.1 mg PO BID PRN; Protocol PRN Reason: Anxiety Last Admin: 08/11/21 15:41 Dose: 0.1 mg Documented by: Clonidine HCl (Clonidine Hcl 0.2 Mg Tablet) 0.2 mg PO BEDTIME [facility]; Protocol Hydroxyzine HCl (Hydroxyzine Hcl 50 Mg Tablet) 50 mg PO BID [facility] Last Admin: 08/12/21 10:18 Dose: 50 mg Documented by: Hydroxyzine HCl (Hydroxyzine Hcl 50 Mg Tablet) 50 mg PO BID PRN PRN Reason: Anxiety Last Admin: 08/11/21 11:44 Dose: 50 mg Documented by: Magnesium Hydroxide (Milk Of Magnesia 30 Ml Oral.Susp) 30 ml PO DAILY PRN PRN Reason: Constipation Last Admin: 08/11/21 09:45 Dose: 30 ml Documented by: Mirtazapine (Mirtazapine 30 Mg Tablet) 30 mg PO BEDTIME [facility] Last Admin: 08/11/21 20:50 Dose: 30 mg Documented by: Nicotine Polacrilex (Nicotine Polacrilex 2 Mg Gum) 4 mg BUCCAL Q2H PRN PRN Reason: Nicotine Cravings Pt Own Med ( Glecaprevir- Pibrentasvir [ Mavyret] 100-40 Mg Tablet) 3 tab PO DAILY [facility] Last Admin: 08/12/21 10:18 Dose: 3 tab Documented by: Quetiapine Fumarate (Quetiapine Fumarate 300 Mg Tablet) 300 mg PO BEDTIME [facility] Last Admin: 08/11/21 20:51 Dose: 300 mg Documented by: Quetiapine Fumarate (Quetiapine Fumarate 100 Mg Tablet) 100 mg PO Q4H PRN PRN Reason: AH Tamsulosin HCl (Tamsulosin Hcl 0.4 Mg Capsule) 0.4 mg PO DAILY@1730 [facility] Last Admin: 08/12/21 17:15 Dose: 0.4 mg Documented by: Trazodone HCl (Trazodone Hcl 50 Mg Tablet) 50 mg PO BEDTIME [facility] Last Admin: 08/11/21 20:51 Dose: 50 mg Documented by: Trazodone HCl (Trazodone Hcl 100 Mg Tablet) 200 mg PO BEDTIME PRN PRN Reason: Insomnia Last Admin: 08/11/21 20:50 Dose: 200 mg Documented by: Allergies Allergies Allergy/AdvReac Type Severity Reaction Status Date / Time No Known Allergies Allergy Verified 01/15/21 10:44 [No Known Allergies*] Assessment & Plan Assessment & Plan (1) Post traumatic stress disorder (PTSD): Status: Acute Code(s): F43.10 - Post-traumatic stress disorder, unspecified (2) MDD (major depressive disorder), recurrent, severe, with psychosis: Status: Acute Code(s): F33.3 - Major depressive disorder, recurrent, severe with psychotic symptoms (3) Opioid use disorder, moderate, in sustained remission: Status: Acute Code(s): F11.21 - Opioid dependence, in remission Plan Brian is a 46 y.o. male who carries a dx of PTSD, opioid use disorder. He presented to [facility] on 08/04/21 due to depression and SI. He had been sober x 2 years from opiates, however his mother a month ago and he relapsed. Utox is positive for fentanyl, opiates, PCP, and cocaine. He overdosed on heroin in attempt to kill himself. Endorses AH, hearing command AH telling him he should kill himself. Plan: 08/07: increase trazodone to 100 mg QHS for sleep. Add vistaril 50 mg BID PRN for agitation, anxiety. Pt recently restarted medications, will monitor for benefit. 08/09: Continue current regimen and plans with no changes today 08/10: Continue current regimen and plans with increase of trazodone to 200 mg q.h.s. 08/11 continue current regimen for now 08/12: restart wellbutrin, DC thorazine, restart seroquel 100 PRN, add clonidine 0.2 mg at HS. I spent __25____ minutes with the patient and/or on the patient floor today, greater than?50% of which was spent counseling/coordinating care. Reason for contiued inpatient stay Substantial Risk for: harm to self
[2021-08-12] MEDS: QUEtiapine Fumarate 100 MG TABLET PO (19:18)
[2021-08-12 20:30] VITALS: BP 100/59; PULSE 69; RESP 18; TEMP 36.6; O2SAT 96
[2021-08-12] MEDS: cloNIDine HCL 0.2 MG TABLET PO (20:36)
[2021-08-12] MEDS: Mirtazapine 30 MG TABLET PO (20:36)
[2021-08-12] MEDS: traZODone HCL 50 MG TABLET PO (20:36)
[2021-08-12] MEDS: QUEtiapine Fumarate 300 MG TABLET PO (20:36)
[2021-08-12] MEDS: Milk of Magnesia 30 ML ORAL.SUSP PO (20:37)
[2021-08-13 09:41] VITALS: BP 130/73; PULSE 80; RESP 17; TEMP 35.7; O2SAT 96
[2021-08-13] MEDS: buPROPion HCl XL 300 MG TAB.ER.24H PO (09:42)
[2021-08-13] MEDS: hydrOXYzine HCL 50 MG TABLET PO ×2 (09:42→21:22)
[2021-08-13] MEDS: amLODIPine Besylate 5 MG TABLET PO (09:42)
[2021-08-13] MEDS: Magnesium Citrate 300 ML SOLUTION PO (12:31)
--- NOTE | 2021-08-13 16:21 | P.PNPSI_ITS ---
Subjective Subjective Date of Service: 08/13/21 Reason For Visit: AH/SI Interim History: pt reporting no change in how he is doing. remains with SI, CAH to kill himself. constipated; PRN ordered. asks to DC seroquel and use thorazine, saying it worked better for him. so done. will reassess tomorrow. per staff, CAH continue. increased anx/dep. sleeping better, though, and with good appetite. Mental Status Exam Mental Status Exam Narrative: appropriately dressed and groomed in street clothes. fair eye contact. no PMA/PMR. cooperative. speech nml amount rate loudness, but flattened tone. thoughts linear and logical. affect constricted. mood depressed and anxious. +SI, +CAH. no HI/VH expressed. Diagnostics Vital Signs (24Hr): Vital Signs - 24 hr 08/12/21 18:00 08/12/21 20:30 08/13/21 09:41 Temperature 97.6 F 97.9 F 96.3 F L Pulse Rate 67 69 80 Respiratory Rate 16 18 17 Blood Pressure 121/72 100/59 L 130/73 Pulse Oximetry 95 96 96 BMI result Body Mass Index 26.4 Labs Results: 08/04/21 01:54 08/08/21 08:21 Medications Medications Current Medications Acetaminophen (Acetaminophen 325 Mg Tablet) 650 mg PO Q6H PRN PRN Reason: Headache/Pain Mild Scale (1-3) Last Admin: 08/11/21 10:12 Dose: 650 mg Documented by: Al Hydroxide/Mg Hydroxide (Magnesium Hydrox/Alum Hydrox 30 Ml Oral.Susp) 30 ml PO Q6H PRN PRN Reason: Heartburn/Nausea Amlodipine Besylate (Amlodipine Besylate 5 Mg Tablet) 5 mg PO DAILY [facility]; Protocol Last Admin: 08/13/21 09:42 Dose: 5 mg Documented by: Bupropion HCl (Bupropion Hcl Xl 300 Mg Tab.Er.24h) 300 mg PO DAILY [facility] Last Admin: 08/13/21 09:42 Dose: 300 mg Documented by: Chlorpromazine HCl (Chlorpromazine Hcl 100 Mg Tablet) 200 mg PO BEDTIME [facility] Chlorpromazine HCl (Chlorpromazine Hcl 100 Mg Tablet) 100 mg PO Q4H PRN PRN Reason: Clonidine HCl (Clonidine Hcl 0.1 Mg Tablet) 0.1 mg PO BID PRN; Protocol PRN Reason: Anxiety Last Admin: 08/11/21 15:41 Dose: 0.1 mg Documented by: Clonidine HCl (Clonidine Hcl 0.2 Mg Tablet) 0.2 mg PO BEDTIME [facility]; Protocol Last Admin: 08/12/21 20:36 Dose: 0.2 mg Documented by: Hydroxyzine HCl (Hydroxyzine Hcl 50 Mg Tablet) 50 mg PO BID [facility] Last Admin: 08/13/21 09:42 Dose: 50 mg Documented by: Hydroxyzine HCl (Hydroxyzine Hcl 50 Mg Tablet) 50 mg PO BID PRN PRN Reason: Anxiety Last Admin: 08/11/21 11:44 Dose: 50 mg Documented by: Magnesium Citrate (Magnesium Citrate 300 Ml Solution) 300 ml PO DAILY PRN PRN Reason: constipation Last Admin: 08/13/21 12:31 Dose: 300 ml Documented by: Magnesium Hydroxide (Milk Of Magnesia 30 Ml Oral.Susp) 30 ml PO DAILY PRN PRN Reason: Constipation Last Admin: 08/12/21 20:37 Dose: 30 ml Documented by: Mirtazapine (Mirtazapine 30 Mg Tablet) 30 mg PO BEDTIME [facility] Last Admin: 08/12/21 20:36 Dose: 30 mg Documented by: Nicotine Polacrilex (Nicotine Polacrilex 2 Mg Gum) 4 mg BUCCAL Q2H PRN PRN Reason: Nicotine Cravings Pt Own Med ( Glecaprevir- Pibrentasvir [ Mavyret] 100-40 Mg Tablet) 3 tab PO DAILY [facility] Last Admin: 08/13/21 09:42 Dose: 3 tab Documented by: Tamsulosin HCl (Tamsulosin Hcl 0.4 Mg Capsule) 0.4 mg PO DAILY@1730 [facility] Last Admin: 08/12/21 17:15 Dose: 0.4 mg Documented by: Trazodone HCl (Trazodone Hcl 50 Mg Tablet) 50 mg PO BEDTIME [facility] Last Admin: 08/12/21 20:36 Dose: 50 mg Documented by: Trazodone HCl (Trazodone Hcl 100 Mg Tablet) 200 mg PO BEDTIME PRN PRN Reason: Insomnia Last Admin: 08/11/21 20:50 Dose: 200 mg Documented by: Allergies Allergies Allergy/AdvReac Type Severity Reaction Status Date / Time No Known Allergies Allergy Verified 01/15/21 10:44 [No Known Allergies*] Assessment & Plan Assessment & Plan (1) Post traumatic stress disorder (PTSD): Status: Acute Code(s): F43.10 - Post-traumatic stress disorder, unspecified (2) MDD (major depressive disorder), recurrent, severe, with psychosis: Status: Acute Code(s): F33.3 - Major depressive disorder, recurrent, severe with psychotic symptoms (3) Opioid use disorder, moderate, in sustained remission: Status: Acute Code(s): F11.21 - Opioid dependence, in remission Plan Brian is a 46 y.o. male who carries a dx of PTSD, opioid use disorder. He presen rosy to [facility] on 08/04/21 due to depression and SI. He had been sober x 2 years from opiates, however his mother a month ago and he relapsed. Utox is positive for fentanyl, opiates, PCP, and cocaine. He overdosed on heroin in attempt to kill himself. Endorses AH, hearing command AH telling him he should kill himself. Plan: 08/07: increase trazodone to 100 mg QHS for sleep. Add vistaril 50 mg BID PRN for agitation, anxiety. Pt recently restarted medications, will monitor for benefit. 08/09: Continue current regimen and plans with no changes today 08/10: Continue current regimen and plans with increase of trazodone to 200 mg q.h.s. 08/11 continue current regimen for now 08/12: restarted wellbutrin, DC thorazine, restarted seroquel 100 PRN, added clonidine 0.2 mg at HS. 08/13: slept better last night. asked to DC seroquel in favor of thorazine, which was done. considering ECT in the event meds don't work out. he reports h/o two prior trials of ECT which were effective. I spent ___20___ minutes with the patient and/or on the patient floor today, greater than?50% of which was spent counseling/coordinating care. Reason for contiued inpatient stay Substantial Risk for: harm to self
[2021-08-13] MEDS: Tamsulosin HCL 0.4 MG CAPSULE PO (16:30)
[2021-08-13] MEDS: chlorproMAZINE HCl 100 MG TABLET PO (16:30)
[2021-08-13] MEDS: cloNIDine HCL 0.1 MG TABLET PO (16:30)
[2021-08-13 20:26] VITALS: BP 127/78; PULSE 100; RESP 17; TEMP 36.7; O2SAT 95
[2021-08-13] MEDS: traZODone HCL 50 MG TABLET PO (21:21)
[2021-08-13] MEDS: Mirtazapine 30 MG TABLET PO (21:21)
[2021-08-13] MEDS: cloNIDine HCL 0.2 MG TABLET PO (21:22)
[2021-08-13] MEDS: chlorproMAZINE HCl 100 MG TABLET 200 MG PO (21:23)
[2021-08-14 09:14] VITALS: BP 125/79; PULSE 73; RESP 16; TEMP 36.6; O2SAT 97
[2021-08-14] MEDS: amLODIPine Besylate 5 MG TABLET PO (10:00)
[2021-08-14] MEDS: hydrOXYzine HCL 50 MG TABLET PO ×2 (10:00→21:14)
[2021-08-14] MEDS: buPROPion HCl XL 300 MG TAB.ER.24H PO (10:00)
[2021-08-14] MEDS: chlorproMAZINE HCl 100 MG TABLET PO ×2 (10:12→18:45)
[2021-08-14] MEDS: cloNIDine HCL 0.1 MG TABLET PO ×2 (11:36→18:50)
--- NOTE | 2021-08-14 14:57 | HO.PSYCHPN ---
Subjective Subjective Date of Service: 08/14/21 Reason For Visit: AH/SI Interim History: pt found seated in the common area. more visible today. states he brushed his teeth and came out of his room. trying to feel better by activating himself - behavioral activation therapy theory reviewed with pt. pt states he wants to be there for his kids, that they are his most protective factor. coping strategies reviewed, including evoking his children when he begins to have SI. pt thanks for suggestions. no med changes made today. per staff, anx/dep 02/02. no HI. CAH to kill himself by overdosing. mag citrate worked yesterday. preoccupied with mother's . Mental Status Exam Mental Status Exam Narrative: appropriately dressed and groomed in street clothes. fair eye contact. general PMR. cooperative. speech nml amount, decr rate and loudness, flattened tone. thoughts linear and logical. affect constricted. mood depressed. +SI, +CAH. no HI/VH expressed. Diagnostics Vital Signs (24Hr): Vital Signs - 24 hr 08/13/21 20:26 08/14/21 09:14 Temperature 98.1 F 97.9 F Pulse Rate 100 73 Respiratory Rate 17 16 Blood Pressure 127/78 125/79 Pulse Oximetry 95 97 BMI result Body Mass Index 26.4 Labs Results: 08/04/21 01:54 08/08/21 08:21 Medications Medications Current Medications Acetaminophen (Acetaminophen 325 Mg Tablet) 650 mg PO Q6H PRN PRN Reason: Headache/Pain Mild Scale (1-3) Last Admin: 08/11/21 10:12 Dose: 650 mg Documented by: Al Hydroxide/Mg Hydroxide (Magnesium Hydrox/Alum Hydrox 30 Ml Oral.Susp) 30 ml PO Q6H PRN PRN Reason: Heartburn/Nausea Amlodipine Besylate (Amlodipine Besylate 5 Mg Tablet) 5 mg PO DAILY [facility]; Protocol Last Admin: 08/14/21 10:00 Dose: 5 mg Documented by: Bupropion HCl (Bupropion Hcl Xl 300 Mg Tab.Er.24h) 300 mg PO DAILY [facility] Last Admin: 08/14/21 10:00 Dose: 300 mg Documented by: Chlorpromazine HCl (Chlorpromazine Hcl 100 Mg Tablet) 200 mg PO BEDTIME [facility] Last Admin: 08/13/21 21:23 Dose: 200 mg Documented by: Chlorpromazine HCl (Chlorpromazine Hcl 100 Mg Tablet) 100 mg PO Q4H PRN PRN Reason: AH Last Admin: 08/14/21 10:12 Dose: 100 mg Documented by: Clonidine HCl (Clonidine Hcl 0.1 Mg Tablet) 0.1 mg PO BID PRN; Protocol PRN Reason: Anxiety Last Admin: 08/14/21 11:36 Dose: 0.1 mg Documented by: Clonidine HCl (Clonidine Hcl 0.2 Mg Tablet) 0.2 mg PO BEDTIME [facility]; Protocol Last Admin: 08/13/21 21:22 Dose: 0.2 mg Documented by: Hydroxyzine HCl (Hydroxyzine Hcl 50 Mg Tablet) 50 mg PO BID [facility] Last Admin: 08/14/21 10:00 Dose: 50 mg Documented by: Hydroxyzine HCl (Hydroxyzine Hcl 50 Mg Tablet) 50 mg PO BID PRN PRN Reason: Anxiety Last Admin: 08/11/21 11:44 Dose: 50 mg Documented by: Magnesium Citrate (Magnesium Citrate 300 Ml Solution) 300 ml PO DAILY PRN PRN Reason: constipation Last Admin: 08/13/21 12:31 Dose: 300 ml Documented by: Magnesium Hydroxide (Milk Of Magnesia 30 Ml Oral.Susp) 30 ml PO DAILY PRN PRN Reason: Constipation Last Admin: 08/12/21 20:37 Dose: 30 ml Documented by: Mirtazapine (Mirtazapine 30 Mg Tablet) 30 mg PO BEDTIME [facility] Last Admin: 08/13/21 21:21 Dose: 30 mg Documented by: Nicotine Polacrilex (Nicotine Polacrilex 2 Mg Gum) 4 mg BUCCAL Q2H PRN PRN Reason: Nicotine Cravings Pt Own Med ( Glecaprevir- Pibrentasvir [ Mavyret] 100-40 Mg Tablet) 3 tab PO DAILY [facility] Last Admin: 08/14/21 10:00 Dose: 3 tab Documented by: Tamsulosin HCl (Tamsulosin Hcl 0.4 Mg Capsule) 0.4 mg PO DAILY@1730 [facility] Last Admin: 08/13/21 16:30 Dose: 0.4 mg Documented by: Trazodone HCl (Trazodone Hcl 50 Mg Tablet) 50 mg PO BEDTIME [facility] Last Admin: 08/13/21 21:21 Dose: 50 mg Documented by: Trazodone HCl (Trazodone Hcl 100 Mg Tablet) 200 mg PO BEDTIME PRN PRN Reason: Insomnia Last Admin: 08/11/21 20:50 Dose: 200 mg Documented by: Allergies Allergies Allergy/AdvReac Type Severity Reaction Status Date / Time No Known Allergies Allergy Verified 01/15/21 10:44 [No Known Allergies*] Assessment & Plan Assessment & Plan (1) Post traumatic stress disorder (PTSD): Status: Acute Code(s): F43.10 - Post-traumatic stress disorder, unspecified (2) MDD (major depressive disorder), recurrent, severe, with psychosis: Status: Acute Code(s): F33.3 - Major depressive disorder, recurrent, severe with psychotic symptoms (3) Opioid use disorder, moderate, in sustained remission: Status: Acute Code(s): F11.21 - Opioid dependence, in remission Plan Brian is a 46 y.o. male who carries a dx of PTSD, opioid use disorder. He presented to [facility] on 08/04/21 due to depression and SI. He had been sober x 2 years from opiates, however his mother a month ago and he relapsed. Utox is positive for fentanyl, opiates, PCP, and cocaine. He overdosed on heroin in attempt to kill himself. Endorses , hearing command telling him he should kill himself. Plan: 08/07: increase trazodone to 100 mg QHS for sleep. Add vistaril 50 mg BID PRN for agitation, anxiety. Pt recently restarted medications, will monitor for benefit. 08/09: Continue current regimen and plans with no changes today 08/10: Continue current regimen and plans with increase of trazodone to 200 mg q.h.s. 08/11 continue current regimen for now 08/12: restarted wellbutrin, DC thorazine, restarted seroquel 100 PRN, added clonidine 0.2 mg at HS. 08/13: slept better last night. asked to DC seroquel in favor of thorazine, which was done. considering ECT in the event meds don't work out. he reports h/o two prior trials of ECT which were effective. I spent ___20___ minutes with the patient and/or on the patient floor today, greater than?50% of which was spent counseling/coordinating care. Patient educated on: therapeutic strategies Reason for contiued inpatient stay Substantial Risk for: harm to self, inability to function and rapid decompensation
[2021-08-14] MEDS: Tamsulosin HCL 0.4 MG CAPSULE PO (16:23)
[2021-08-14 21:12] VITALS: BP 101/55; PULSE 76; RESP 16; TEMP 36.6; O2SAT 96
[2021-08-14] MEDS: traZODone HCL 50 MG TABLET PO (21:14)
[2021-08-14] MEDS: Mirtazapine 30 MG TABLET PO (21:14)
[2021-08-14] MEDS: cloNIDine HCL 0.2 MG TABLET PO (21:14)
[2021-08-14] MEDS: chlorproMAZINE HCl 100 MG TABLET 200 MG PO (21:14)
[2021-08-15 09:08] VITALS: BP 126/38; PULSE 70; RESP 17; TEMP 36.3; O2SAT 96
[2021-08-15] MEDS: buPROPion HCl XL 300 MG TAB.ER.24H PO (10:01)
[2021-08-15] MEDS: amLODIPine Besylate 5 MG TABLET PO (10:01)
[2021-08-15] MEDS: hydrOXYzine HCL 50 MG TABLET PO ×2 (10:01→20:43)
[2021-08-15] MEDS: chlorproMAZINE HCl 100 MG TABLET PO ×2 (10:08→15:24)
--- NOTE | 2021-08-15 15:20 | P.PNPSI_ITS ---
Subjective Subjective Date of Service: 08/15/21 Reason For Visit: AH/SI Interim History: pt seen up and about in the milieu. agreeable to interview, reports he is feeling a bit better. decreased AH yesterday. worse again this morning but responded better to medications. hoping for discharge some time next week. trying his best to perform behavioral activation. c/o insomnia and nightmares, agreeable to increase clonidine at HS to 0.3 mg. per staff, dep/anx 8. passive SI. +CAH to kill self. no change in symptoms since admission. eating OK, slept through the night. Mental Status Exam Mental Status Exam Narrative: appropriately dressed and groomed in street clothes. good eye contact. general PMR. cooperative. speech nml amount, decr rate and loudness, flattened tone. thoughts linear and logical. affect constricted. mood a little better. . +CAH. no SI/HI/VH expressed. Diagnostics Vital Signs (24Hr): Vital Signs - 24 hr 08/14/21 21:12 08/15/21 09:08 Temperature 97.9 F 97.4 F Pulse Rate 76 70 Respiratory Rate 16 17 Blood Pressure 101/55 L 126/38 L Pulse Oximetry 96 96 BMI result Body Mass Index 26.4 Labs Results: 08/04/21 01:54 08/08/21 08:21 Medications Medications Current Medications Acetaminophen (Acetaminophen 325 Mg Tablet) 650 mg PO Q6H PRN PRN Reason: Headache/Pain Mild Scale (1-3) Last Admin: 08/11/21 10:12 Dose: 650 mg Documented by: Al Hydroxide/Mg Hydroxide (Magnesium Hydrox/Alum Hydrox 30 Ml Oral.Susp) 30 ml PO Q6H PRN PRN Reason: Heartburn/Nausea Amlodipine Besylate (Amlodipine Besylate 5 Mg Tablet) 5 mg PO DAILY [facility]; Protocol Last Admin: 08/15/21 10:01 Dose: 5 mg Documented by: Bupropion HCl (Bupropion Hcl Xl 300 Mg Tab.Er.24h) 300 mg PO DAILY [facility] Last Admin: 08/15/21 10:01 Dose: 300 mg Documented by: Chlorpromazine HCl (Chlorpromazine Hcl 100 Mg Tablet) 200 mg PO BEDTIME [facility] Last Admin: 08/14/21 21:14 Dose: 200 mg Documented by: Chlorpromazine HCl (Chlorpromazine Hcl 100 Mg Tablet) 100 mg PO Q4H PRN PRN Reason: AH Last Admin: 08/15/21 10:08 Dose: 100 mg Documented by: Clonidine HCl (Clonidine Hcl 0.1 Mg Tablet) 0.1 mg PO BID PRN; Protocol PRN Reason: Anxiety Last Admin: 08/14/21 18:50 Dose: 0.1 mg Documented by: Clonidine HCl (Clonidine Hcl 0.1 Mg Tablet) 0.3 mg PO BEDTIME [facility]; Protocol Hydroxyzine HCl (Hydroxyzine Hcl 50 Mg Tablet) 50 mg PO BID [facility] Last Admin: 08/15/21 10:01 Dose: 50 mg Documented by: Hydroxyzine HCl (Hydroxyzine Hcl 50 Mg Tablet) 50 mg PO BID PRN PRN Reason: Anxiety Last Admin: 08/11/21 11:44 Dose: 50 mg Documented by: Magnesium Citrate (Magnesium Citrate 300 Ml Solution) 300 ml PO DAILY PRN PRN Reason: constipation Last Admin: 08/13/21 12:31 Dose: 300 ml Documented by: Magnesium Hydroxide (Milk Of Magnesia 30 Ml Oral.Susp) 30 ml PO DAILY PRN PRN Reason: Constipation Last Admin: 08/12/21 20:37 Dose: 30 ml Documented by: Mirtazapine (Mirtazapine 30 Mg Tablet) 30 mg PO BEDTIME [facility] Last Admin: 08/14/21 21:14 Dose: 30 mg Documented by: Nicotine Polacrilex (Nicotine Polacrilex 2 Mg Gum) 4 mg BUCCAL Q2H PRN PRN Reason: Nicotine Cravings Pt Own Med ( Glecaprevir- Pibrentasvir [ Mavyret] 100-40 Mg Tablet) 3 tab PO DAILY [facility] Last Admin: 08/15/21 10:01 Dose: 3 tab Documented by: Tamsulosin HCl (Tamsulosin Hcl 0.4 Mg Capsule) 0.4 mg PO DAILY@1730 [facility] Last Admin: 08/14/21 16:23 Dose: 0.4 mg Documented by: Trazodone HCl (Trazodone Hcl 50 Mg Tablet) 50 mg PO BEDTIME [facility] Last Admin: 08/14/21 21:14 Dose: 50 mg Documented by: Trazodone HCl (Trazodone Hcl 100 Mg Tablet) 200 mg PO BEDTIME PRN PRN Reason: Insomnia Last Admin: 08/11/21 20:50 Dose: 200 mg Documented by: Allergies Allergies Allergy/AdvReac Type Severity Reaction Status Date / Time No Known Allergies Allergy Verified 01/15/21 10:44 [No Known Allergies*] Assessment & Plan Assessment & Plan (1) Post traumatic stress disorder (PTSD): Status: Acute Code(s): F43.10 - Post-traumatic stress disorder, unspecified (2) MDD (major depressive disorder), recurrent, severe, with psychosis: Status: Acute Code(s): F33.3 - Major depressive disorder, recurrent, severe with psychotic symptoms (3) Opioid use disorder, moderate, in sustained remission: Status: Acute Code(s): F11.21 - Opioid dependence, in remission Plan Brian is a 46 y.o. male who carries a dx of PTSD, opioid use disorder. He pre sented to [facility] on 08/04/21 due to depression and SI. He had been sober x 2 years from opiates, however his mother a month ago and he relapsed. Utox is positive for fentanyl, opiates, PCP, and cocaine. He overdosed on heroin in attempt to kill himself. Endorses , hearing command telling him he should kill himself. Plan: 08/07: increase trazodone to 100 mg QHS for sleep. Add vistaril 50 mg BID PRN for agitation, anxiety. Pt recently restarted medications, will monitor for benefit. 08/09: Continue current regimen and plans with no changes today 08/10: Continue current regimen and plans with increase of trazodone to 200 mg q.h.s. 08/11 continue current regimen for now 08/12: restarted wellbutrin, DC thorazine, restarted seroquel 100 PRN, added clonidine 0.2 mg at HS. 08/13: slept better last night. asked to DC seroquel in favor of thorazine, which was done. considering ECT in the event meds don't work out. he reports h/o two prior trials of ECT which were effective. 08/15: clonidine 0.2 mg at HS increased to 0.3 mg. mood slightly improved, as have been AH. I spent __25____ minutes with the patient and/or on the patient floor today, greater than?50% of which was spent counseling/coordinating care. Reason for contiued inpatient stay Substantial Risk for: harm to self, inability to function and rapid decompensation
[2021-08-15] MEDS: chlorproMAZINE HCl 100 MG TABLET 200 MG PO (20:43)
[2021-08-15] MEDS: traZODone HCL 50 MG TABLET PO (20:43)
[2021-08-15] MEDS: Mirtazapine 30 MG TABLET PO (20:43)
[2021-08-15 20:45] VITALS: BP 95/52; PULSE 72; RESP 16; TEMP 36.6; O2SAT 95
[2021-08-15] MEDS: Magnesium Hydrox/Alum Hydrox 30 ML ORAL.SUSP PO (21:53)
[2021-08-16 08:50] VITALS: BP 127/83; PULSE 78; RESP 17; TEMP 36.9; O2SAT 97
[2021-08-16] MEDS: amLODIPine Besylate 5 MG TABLET PO (08:59)
[2021-08-16] MEDS: chlorproMAZINE HCl 100 MG TABLET PO ×2 (08:59→14:47)
[2021-08-16] MEDS: hydrOXYzine HCL 50 MG TABLET PO ×3 (08:59→21:00)
[2021-08-16] MEDS: buPROPion HCl XL 300 MG TAB.ER.24H PO (08:59)
--- NOTE | 2021-08-16 16:42 | HO.PSYCHPN ---
Subjective Subjective Date of Service: 08/16/21 Reason For Visit: AH/SI Subjective Notes: Conditional Voluntary Interim History: 08/15:pt seen up and about in the milieu. agreeable to interview, reports he is feeling a bit better. decreased AH yesterday. worse again this morning but responded better to medications. hoping for discharge some time next week. trying his best to perform behavioral activation. c/o insomnia and nightmares, agreeable to increase clonidine at HS to 0.3 mg. per staff, dep/anx 8. passive SI. +CAH to kill self. no change in symptoms since admission. eating OK, slept through the night. 08/16: Mood better. Pt known to TW from previous admissions. Ct meds. CAH + but better able to cope. 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 good eye contact. general PMR. cooperative. speech nml amount, decr rate and loudness, flattened tone. thoughts linear and logical. affect constricted. mood a little better. . +CAH. no SI/HI/VH expressed. Diagnostics Vital Signs (24Hr): Vital Signs - 24 hr 08/15/21 20:45 08/16/21 08:50 Temperature 97.8 F 98.5 F Pulse Rate 72 78 Respiratory Rate 16 17 Blood Pressure 95/52 L 127/83 Pulse Oximetry 95 97 BMI result Body Mass Index 26.4 Labs Results: 08/04/21 01:54 08/08/21 08:21 Medications Medications Current Medications Acetaminophen (Acetaminophen 325 Mg Tablet) 650 mg PO Q6H PRN PRN Reason: Headache/Pain Mild Scale (1-3) Last Admin: 08/11/21 10:12 Dose: 650 mg Documented by: Al Hydroxide/Mg Hydroxide (Magnesium Hydrox/Alum Hydrox 30 Ml Oral.Susp) 30 ml PO Q6H PRN PRN Reason: Heartburn/Nausea Last Admin: 08/15/21 21:53 Dose: 30 ml Documented by: Amlodipine Besylate (Amlodipine Besylate 5 Mg Tablet) 5 mg PO DAILY [facility]; Protocol Last Admin: 08/16/21 08:59 Dose: 5 mg Documented by: Bupropion HCl (Bupropion Hcl Xl 300 Mg Tab.Er.24h) 300 mg PO DAILY [facility] Last Admin: 08/16/21 08:59 Dose: 300 mg Documented by: Chlorpromazine HCl (Chlorpromazine Hcl 100 Mg Tablet) 200 mg PO BEDTIME [facility] Last Admin: 08/15/21 20:43 Dose: 200 mg Documented by: Chlorpromazine HCl (Chlorpromazine Hcl 100 Mg Tablet) 100 mg PO Q4H PRN PRN Reason: AH Last Admin: 08/16/21 14:47 Dose: 100 mg Documented by: Clonidine HCl (Clonidine Hcl 0.1 Mg Tablet) 0.1 mg PO BID PRN; Protocol PRN Reason: Anxiety Last Admin: 08/14/21 18:50 Dose: 0.1 mg Documented by: Clonidine HCl (Clonidine Hcl 0.1 Mg Tablet) 0.3 mg PO BEDTIME [facility]; Protocol Last Admin: 08/15/21 21:03 Dose: Not Given Documented by: Hydroxyzine HCl (Hydroxyzine Hcl 50 Mg Tablet) 50 mg PO BID [facility] Last Admin: 08/16/21 08:59 Dose: 50 mg Documented by: Hydroxyzine HCl (Hydroxyzine Hcl 50 Mg Tablet) 50 mg PO BID PRN PRN Reason: Anxiety Last Admin: 08/16/21 11:20 Dose: 50 mg Documented by: Magnesium Citrate (Magnesium Citrate 300 Ml Solution) 300 ml PO DAILY PRN PRN Reason: constipation Last Admin: 08/13/21 12:31 Dose: 300 ml Documented by: Magnesium Hydroxide (Milk Of Magnesia 30 Ml Oral.Susp) 30 ml PO DAILY PRN PRN Reason: Constipation Last Admin: 08/12/21 20:37 Dose: 30 ml Documented by: Mirtazapine (Mirtazapine 30 Mg Tablet) 30 mg PO BEDTIME [facility] Last Admin: 08/15/21 20:43 Dose: 30 mg Documented by: Nicotine Polacrilex (Nicotine Polacrilex 2 Mg Gum) 4 mg BUCCAL Q2H PRN PRN Reason: Nicotine Cravings Pt Own Med ( Glecaprevir- Pibrentasvir [ Mavyret] 100-40 Mg Tablet) 3 tab PO DAILY [facility] Last Admin: 08/16/21 08:59 Dose: 3 tab Documented by: Tamsulosin HCl (Tamsulosin Hcl 0.4 Mg Capsule) 0.4 mg PO DAILY@1730 [facility] Last Admin: 08/15/21 18:42 Dose: Not Given Documented by: Trazodone HCl (Trazodone Hcl 50 Mg Tablet) 50 mg PO BEDTIME [facility] Last Admin: 08/15/21 20:43 Dose: 50 mg Documented by: Trazodone HCl (Trazodone Hcl 100 Mg Tablet) 200 mg PO BEDTIME PRN PRN Reason: Insomnia Last Admin: 08/11/21 20:50 Dose: 200 mg Documented by: Allergies Allergies Allergy/AdvReac Type Severity Reaction Status Date / Time No Known Allergies Allergy Verified 01/15/21 10:44 [No Known Allergies*] Assessment & Plan Assessment & Plan (1) Post traumatic stress disorder (PTSD): Status: Acute Code(s): F43.10 - Post-traumatic stress disorder, unspecified (2) MDD (major depressive disorder), recurrent, severe, with psychosis: Status: Acute Code(s): F33.3 - Major depressive disorder, recurrent, severe with psychotic symptoms (3) Opioid use disorder, moderate, in sustained remission: Status: Acute Code(s): F11.21 - Opioid dependence, in remission Plan Brian is a 46 y.o. male who carries a dx of PTSD, opioid use disorder. He presented to [facility] on 08/04/21 due to depression and SI. He had been sober x 2 years from opiates, however his mother a month ago and he relapsed. Utox is positive for fentanyl, opiates, PCP, and cocaine. He overdosed on heroin in attempt to kill himself. Endorses AH, hearing command AH telling him he should kill himself. Plan: 08/07: increase trazodone to 100 mg QHS for sleep. Add vistaril 50 mg BID PRN for agitation, anxiety. Pt recently restarted medications, will monitor for benefit. 08/09: Continue current regimen and plans with no changes today 08/10: Continue current regimen and plans with increase of trazodone to 200 mg q.h.s. 08/11 continue current regimen for now 08/12: restarted wellbutrin, DC thorazine, restarted seroquel 100 PRN, added clonidine 0.2 mg at HS. 08/13: slept better last night. asked to DC seroquel in favor of thorazine, which was done. considering ECT in the event meds don't work out. he reports h/o two prior trials of ECT which were effective. 08/15: clonidine 0.2 mg at HS increased to 0.3 mg. mood slightly improved, as have been AH. 08/16: Ct Rx plan I spent minutes with the patient and/or on the patient floor today, greater than?50% of which was spent counseling/coordinating care. Reason for contiued inpatient stay Substantial Risk for: harm to self
[2021-08-16 20:55] VITALS: BP 106/57; PULSE 81; RESP 16; TEMP 36.6; O2SAT 96
[2021-08-16] MEDS: cloNIDine HCL 0.1 MG TABLET 0.3 MG PO (21:00)
[2021-08-16] MEDS: Mirtazapine 30 MG TABLET PO (21:00)
[2021-08-16] MEDS: chlorproMAZINE HCl 100 MG TABLET 200 MG PO (21:00)
[2021-08-16] MEDS: traZODone HCL 50 MG TABLET PO (21:00)
[2021-08-17] MEDS: chlorproMAZINE HCl 100 MG TABLET PO ×3 (09:45→21:48)
[2021-08-17] MEDS: hydrOXYzine HCL 50 MG TABLET PO ×4 (09:45→21:48)
[2021-08-17] MEDS: buPROPion HCl XL 300 MG TAB.ER.24H PO (09:45)
[2021-08-17] MEDS: cloNIDine HCL 0.1 MG TABLET PO (09:45)
[2021-08-17] MEDS: Acetaminophen 325 MG TABLET 650 MG PO (09:45)
[2021-08-17 09:47] VITALS: BP 109/65; PULSE 114; RESP 17; TEMP 36.8; O2SAT 97
--- NOTE | 2021-08-17 10:49 | P.PNPSI_ITS ---
Subjective Subjective Date of Service: 08/17/21 Reason For Visit: AH/SI Interim History: 08/15:pt seen up and about in the milieu. agreeable to interview, reports he is feeling a bit better. decreased AH yesterday. worse again this morning but responded better to medications. hoping for discharge some time next week. trying his best to perform behavioral activation. c/o insomnia and nightmares, agreeable to increase clonidine at HS to 0.3 mg. per staff, dep/anx 8. passive SI. +CAH to kill self. no change in symptoms since admission. eating OK, slept through the night. 08/16: Mood better. Pt known to TW from previous admissions. Ct meds. CAH + but better able to cope. 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 Wants to return to Trazodone. Increase in AH. He will try Trazodone. CAH w SI but feels safe here Review of Systems Review of Systems Hallucinations Yes all other systems are reviewed and are negative Mental Status Exam Mental Status Exam Narrative: appropriately dressed and groomed in street clothes. good eye contact. general PMR. cooperative. speech nml amount, decr rate and loudness, flattened tone. thoughts linear and logical. affect constricted. mood a little better. . +CAH. no SI/HI/VH expressed. Diagnostics Vital Signs (24Hr): Vital Signs - 24 hr 08/16/21 20:55 08/17/21 09:47 Temperature 97.9 F 98.3 F Pulse Rate 81 114 H Respiratory Rate 16 17 Blood Pressure 106/57 L 109/65 Pulse Oximetry 96 97 BMI result Body Mass Index 26.4 Labs Results: 08/04/21 01:54 08/08/21 08:21 Medications Medications Current Medications Acetaminophen (Acetaminophen 325 Mg Tablet) 650 mg PO Q6H PRN PRN Reason: Headache/Pain Mild Scale (1-3) Last Admin: 08/17/21 09:45 Dose: 650 mg Documented by: Al Hydroxide/Mg Hydroxide (Magnesium Hydrox/Alum Hydrox 30 Ml Oral.Susp) 30 ml PO Q6H PRN PRN Reason: Heartburn/Nausea Last Admin: 08/15/21 21:53 Dose: 30 ml Documented by: Amlodipine Besylate (Amlodipine Besylate 5 Mg Tablet) 5 mg PO DAILY [facility]; Prot ocol Last Admin: 08/17/21 09:47 Dose: Not Given Documented by: Bupropion HCl (Bupropion Hcl Xl 300 Mg Tab.Er.24h) 300 mg PO DAILY [facility] Last Admin: 08/17/21 09:45 Dose: 300 mg Documented by: Chlorpromazine HCl (Chlorpromazine Hcl 100 Mg Tablet) 200 mg PO BEDTIME [facility] Last Admin: 08/16/21 21:00 Dose: 200 mg Documented by: Chlorpromazine HCl (Chlorpromazine Hcl 100 Mg Tablet) 100 mg PO Q4H PRN PRN Reason: AH Last Admin: 08/17/21 09:45 Dose: 100 mg Documented by: Clonidine HCl (Clonidine Hcl 0.1 Mg Tablet) 0.1 mg PO BID PRN; Protocol PRN Reason: Anxiety Last Admin: 08/17/21 09:45 Dose: 0.1 mg Documented by: Clonidine HCl (Clonidine Hcl 0.1 Mg Tablet) 0.3 mg PO BEDTIME [facility]; Protocol Last Admin: 08/16/21 21:00 Dose: 0.3 mg Documented by: Hydroxyzine HCl (Hydroxyzine Hcl 50 Mg Tablet) 50 mg PO BID [facility] Last Admin: 08/17/21 09:45 Dose: 50 mg Documented by: Hydroxyzine HCl (Hydroxyzine Hcl 50 Mg Tablet) 50 mg PO BID PRN PRN Reason: Anxiety Last Admin: 08/16/21 11:20 Dose: 50 mg Documented by: Magnesium Citrate (Magnesium Citrate 300 Ml Solution) 300 ml PO DAILY PRN PRN Reason: constipation Last Admin: 08/13/21 12:31 Dose: 300 ml Documented by: Magnesium Hydroxide (Milk Of Magnesia 30 Ml Oral.Susp) 30 ml PO DAILY PRN PRN Reason: Constipation Last Admin: 08/12/21 20:37 Dose: 30 ml Documented by: Mirtazapine (Mirtazapine 30 Mg Tablet) 30 mg PO BEDTIME [facility] Last Admin: 08/16/21 21:00 Dose: 30 mg Documented by: Nicotine Polacrilex (Nicotine Polacrilex 2 Mg Gum) 4 mg BUCCAL Q2H PRN PRN Reason: Nicotine Cravings Pt Own Med ( Glecaprevir- Pibrentasvir [ Mavyret] 100-40 Mg Tablet) 3 tab PO DAILY [facility] Last Admin: 08/16/21 08:59 Dose: 3 tab Documented by: Tamsulosin HCl (Tamsulosin Hcl 0.4 Mg Capsule) 0.4 mg PO DAILY@1730 [facility] Last Admin: 08/16/21 19:06 Dose: Not Given Documented by: Trazodone HCl (Trazodone Hcl 50 Mg Tablet) 50 mg PO BEDTIME [facility] Last Admin: 08/16/21 21:00 Dose: 50 mg Documented by: Trazodone HCl (Trazodone Hcl 100 Mg Tablet) 200 mg PO BEDTIME PRN PRN Reason: Insomnia Last Admin: 08/11/21 20:50 Dose: 200 mg Documented by: Allergies Allergies Allergy/AdvReac Type Severity Reaction Status Date / Time No Known Allergies Allergy Verified 01/15/21 10:44 [No Known Allergies*] Assessment & Plan Assessment & Plan (1) Post traumatic stress disorder (PTSD): Status: Acute Code(s): F43.10 - Post-traumatic stress disorder, unspecified (2) MDD (major depressive disorder), recurrent, severe, with psychosis: Status: Acute Code(s): F33.3 - Major depressive disorder, recurrent, severe with psychotic symptoms (3) Opioid use disorder, moderate, in sustained remission: Status: Acute Code(s): F11.21 - Opioid dependence, in remission Plan Brian is a 46 y.o. male who carries a dx of PTSD, opioid use disorder. He presented to [facility] on 08/04/21 due to depression and SI. He had been sober x 2 years from opiates, however his mother a month ago and he relapsed. Utox is positive for fentanyl, opiates, PCP, and cocaine. He overdosed on heroin in attempt to kill himself. Endorses AH, hearing command AH telling him he should kill himself. Plan: 08/07: increase trazodone to 100 mg QHS for sleep. Add vistaril 50 mg BID PRN for agitation, anxiety. Pt recently restarted medications, will monitor for benefit. 08/09: Continue current regimen and plans with no changes today 08/10: Continue current regimen and plans with increase of trazodone to 200 mg q.h.s. 08/11 continue current regimen for now 08/12: restarted wellbutrin, DC thorazine, restarted seroquel 100 PRN, added clonidine 0.2 mg at HS. 08/13: slept better last night. asked to DC seroquel in favor of thorazine, which was done. considering ECT in the event meds don't work out. he reports h/o two prior trials of ECT which were effective. 08/15: clonidine 0.2 mg at HS increased to 0.3 mg. mood slightly improved, as have been AH. 08/16: Ct Rx plan 08/17: Ct Rx plan. Review hypnotics use. I spent minutes with the patient and/or on the patient floor today, greater than?50% of which was spent counseling/coordinating care. Reason for contiued inpatient stay Substantial Risk for: harm to self
[2021-08-17 18:00] VITALS: BP 111/65; PULSE 97; RESP 18; TEMP 36.6; O2SAT 98
[2021-08-17] MEDS: cloNIDine HCL 0.1 MG TABLET 0.3 MG PO (21:47)
[2021-08-17] MEDS: traZODone HCL 100 MG TABLET 200 MG PO (21:48)
[2021-08-17] MEDS: Mirtazapine 30 MG TABLET PO (21:48)
[2021-08-17] MEDS: chlorproMAZINE HCl 100 MG TABLET 200 MG PO (21:48)
[2021-08-17] MEDS: traZODone HCL 50 MG TABLET PO (21:48)
[2021-08-18 10:10] VITALS: BP 121/76; PULSE 85; RESP 16; TEMP 36.4; O2SAT 97
[2021-08-18] MEDS: amLODIPine Besylate 5 MG TABLET PO (10:12)
[2021-08-18] MEDS: hydrOXYzine HCL 50 MG TABLET PO ×3 (10:12→21:46)
[2021-08-18] MEDS: buPROPion HCl XL 300 MG TAB.ER.24H PO (10:13)
[2021-08-18] MEDS: chlorproMAZINE HCl 100 MG TABLET PO ×2 (11:46→21:46)
--- NOTE | 2021-08-18 15:45 | P.PNPSI_ITS ---
Subjective Subjective Date of Service: 08/18/21 Reason For Visit: AH/SI Interim History: pt reports he is starting to feel better. thinking maybe DC or wednesday. depressed, continues to have CAH but they are not as strong. per staff, grumpy. sleeping a lot during the day. eating well, isolative. anx/dep. med-compliant. appears to sleep through the night. Mental Status Exam Mental Status Exam Narrative: appropriately dressed and groomed in street clothes. good eye contact. general PMR. cooperative. speech nml amount, decr rate and loudness, flattened tone. thoughts linear and logical. affect full range. mood starting to get better but still depressed. +CAH. no SI/HI/VH expressed. Diagnostics Vital Signs (24Hr): Vital Signs - 24 hr 08/17/21 18:00 08/18/21 10:10 Temperature 97.9 F 97.6 F Pulse Rate 97 85 Respiratory Rate 18 16 Blood Pressure 111/65 121/76 Pulse Oximetry 98 97 BMI result Body Mass Index 26.4 Labs Results: 08/04/21 01:54 08/08/21 08:21 Medications Medications Current Medications Acetaminophen (Acetaminophen 325 Mg Tablet) 650 mg PO Q6H PRN PRN Reason: Headache/Pain Mild Scale (1-3) Last Admin: 08/17/21 09:45 Dose: 650 mg Documented by: Al Hydroxide/Mg Hydroxide (Magnesium Hydrox/Alum Hydrox 30 Ml Oral.Susp) 30 ml PO Q6H PRN PRN Reason: Heartburn/Nausea Last Admin: 08/15/21 21:53 Dose: 30 ml Documented by: Amlodipine Besylate (Amlodipine Besylate 5 Mg Tablet) 5 mg PO DAILY [facility]; Protocol Last Admin: 08/18/21 10:12 Dose: 5 mg Documented by: Bupropion HCl (Bupropion Hcl Xl 300 Mg Tab.Er.24h) 300 mg PO DAILY [facility] Last Admin: 08/18/21 10:13 Dose: 300 mg Documented by: Chlorpromazine HCl (Chlorpromazine Hcl 100 Mg Tablet) 200 mg PO BEDTIME [facility] Last Admin: 08/17/21 21:48 Dose: 200 mg Documented by: Chlorpromazine HCl (Chlorpromazine Hcl 100 Mg Tablet) 100 mg PO Q4H PRN PRN Reason: AH Last Admin: 08/18/21 11:46 Dose: 100 mg Documented by: Clonidine HCl (Clonidine Hcl 0.1 Mg Tablet) 0.1 mg PO BID PRN; Protocol PRN Reason: Anxiety Last Admin: 08/17/21 09:45 Dose: 0.1 mg Documented by: Clonidine HCl (Clonidine Hcl 0.1 Mg Tablet) 0.3 mg PO BEDTIME [facility]; Protocol Last Admin: 08/17/21 21:47 Dose: 0.3 mg Documented by: Hydroxyzine HCl (Hydroxyzine Hcl 50 Mg Tablet) 50 mg PO BID [facility] Last Admin: 08/18/21 10:12 Dose: 50 mg Documented by: Hydroxyzine HCl (Hydroxyzine Hcl 50 Mg Tablet) 50 mg PO BID PRN PRN Reason: Anxiety Last Admin: 08/17/21 21:48 Dose: 50 mg Documented by: Magnesium Citrate (Magnesium Citrate 300 Ml Solution) 300 ml PO DAILY PRN PRN Reason: constipation Last Admin: 08/13/21 12:31 Dose: 300 ml Documented by: Magnesium Hydroxide (Milk Of Magnesia 30 Ml Oral.Susp) 30 ml PO DAILY PRN PRN Reason: Constipation Last Admin: 08/12/21 20:37 Dose: 30 ml Documented by: Mirtazapine (Mirtazapine 30 Mg Tablet) 30 mg PO BEDTIME [facility] Last Admin: 08/17/21 21:48 Dose: 30 mg Documented by: Nicotine Polacrilex (Nicotine Polacrilex 2 Mg Gum) 4 mg BUCCAL Q2H PRN PRN Reason: Nicotine Cravings Pt Own Med ( Glecaprevir- Pibrentasvir [ Mavyret] 100-40 Mg Tablet) 3 tab PO DAILY [facility] Last Admin: 08/18/21 10:28 Dose: 3 tab Documented by: Tamsulosin HCl (Tamsulosin Hcl 0.4 Mg Capsule) 0.4 mg PO DAILY@1730 [facility] Last Admin: 08/17/21 17:26 Dose: Not Given Documented by: Trazodone HCl (Trazodone Hcl 50 Mg Tablet) 50 mg PO BEDTIME [facility] Last Admin: 08/17/21 21:48 Dose: 50 mg Documented by: Trazodone HCl (Trazodone Hcl 100 Mg Tablet) 200 mg PO BEDTIME [facility] Last Admin: 08/17/21 21:48 Dose: 200 mg Documented by: Allergies Allergies Allergy/AdvReac Type Severity Reaction Status Date / Time No Known Allergies Allergy Verified 01/15/21 10:44 [No Known Allergies*] Assessment & Plan Assessment & Plan (1) Post traumatic stress disorder (PTSD): Status: Acute Code(s): F43.10 - Post-traumatic stress disorder, unspecified (2) MDD (major depressive disorder), recurrent, severe, with psychosis: Status: Acute Code(s): F33.3 - Major depressive disorder, recurrent, severe with psychotic symptoms (3) Opioid use disorder, moderate, in sustained remission: Status: Acute Code(s): F11.21 - Opioid dependence, in remission Plan Brian is a 46 y.o. male who carries a dx of PTSD, opioid use disorder. He presented to [facility] on 08/04/21 due to depression and SI. He had been sober x 2 years from opiates, however his mother a month ago and he relapsed. Utox is positive for fentanyl, opiates, PCP, and cocaine. He overdosed on heroin in attempt to kill himself. Endorses , hearing command telling him he should kill himself. Plan: 08/07: increase trazodone to 100 mg QHS for sleep. Add vistaril 50 mg BID PRN for agitation, anxiety. Pt recently restarted medications, will monitor for benefit. 08/09: Continue current regimen and plans with no changes today 08/10: Continue current regimen and plans with increase of trazodone to 200 mg q.h.s. 08/11 continue current regimen for now 08/12: restarted wellbutrin, DC thorazine, restarted seroquel 100 PRN, added clonidine 0.2 mg at HS. 08/13: slept better last night. asked to DC seroquel in favor of thorazine, which was done. considering ECT in the event meds don't work out. he reports h/o two prior trials of ECT which were effective. 08/15: clonidine 0.2 mg at HS increased to 0.3 mg. mood slightly improved, as have been AH. 08/16: Ct Rx plan 08/17: Ct Rx plan. Review hypnotics use. 08/18: continues to improve. full range of affect today. I spent ___25___ minutes with the patient and/or on the patient floor today, greater than?50% of which was spent counseling/coordinating care. Reason for contiued inpatient stay Substantial Risk for: harm to self, inability to function and rapid decompensation
[2021-08-18] MEDS: Tamsulosin HCL 0.4 MG CAPSULE PO (16:33)
[2021-08-18] MEDS: cloNIDine HCL 0.1 MG TABLET PO (16:33)
[2021-08-18 18:00] VITALS: BP 128/80; PULSE 82; RESP 16; TEMP 36.4; O2SAT 98
[2021-08-18] MEDS: Mirtazapine 30 MG TABLET PO (21:44)
[2021-08-18] MEDS: cloNIDine HCL 0.1 MG TABLET 0.3 MG PO (21:44)
[2021-08-18] MEDS: Acetaminophen 325 MG TABLET 650 MG PO (21:45)
[2021-08-18] MEDS: chlorproMAZINE HCl 100 MG TABLET 200 MG PO (21:45)
[2021-08-18] MEDS: traZODone HCL 100 MG TABLET 200 MG PO (21:45)
[2021-08-18] MEDS: traZODone HCL 50 MG TABLET PO (21:46)
[2021-08-19 09:50] VITALS: BP 116/74; PULSE 95; RESP 16; TEMP 36.6; O2SAT 96
[2021-08-19] MEDS: buPROPion HCl XL 300 MG TAB.ER.24H PO (10:03)
[2021-08-19] MEDS: amLODIPine Besylate 5 MG TABLET PO (10:03)
[2021-08-19] MEDS: hydrOXYzine HCL 50 MG TABLET PO ×2 (10:04→20:46)
[2021-08-19] MEDS: cloNIDine HCL 0.1 MG TABLET PO (12:56)
[2021-08-19] MEDS: chlorproMAZINE HCl 100 MG TABLET PO (12:56)
--- NOTE | 2021-08-19 14:16 | HO.PSYCHPN ---
Subjective Subjective Date of Service: 08/19/21 Reason For Visit: AH/SI Interim History: pt as per yesterday. calm, cooperative, future-oriented. sleeping well. MD educated re behavioral activitation. per staff, not attending groups. minimal time in milieu. moderate anxiety. boredom. + CAH. feeling safe, however. looking forward to returning to work. slept well, eating. had thorazine PRN. Mental Status Exam Mental Status Exam Narrative: appropriately dressed and groomed in street clothes. fair eye contact. general PMR. cooperative. speech nml amount, decr rate and loudness, flattened tone. thoughts linear and logical. affect constricted. mood a little better. +CAH. no SI/HI/VH expressed. Diagnostics Vital Signs (24Hr): Vital Signs - 24 hr 08/18/21 18:00 08/19/21 09:50 Temperature 97.6 F 97.8 F Pulse Rate 82 95 Respiratory Rate 16 16 Blood Pressure 128/80 116/74 Pulse Oximetry 98 96 BMI result Body Mass Index 26.4 Labs Results: 08/04/21 01:54 08/08/21 08:21 Medications Medications Current Medications Acetaminophen (Acetaminophen 325 Mg Tablet) 650 mg PO Q6H PRN PRN Reason: Headache/Pain Mild Scale (1-3) Last Admin: 08/18/21 21:45 Dose: 650 mg Documented by: Al Hydroxide/Mg Hydroxide (Magnesium Hydrox/Alum Hydrox 30 Ml Oral.Susp) 30 ml PO Q6H PRN PRN Reason: Heartburn/Nausea Last Admin: 08/15/21 21:53 Dose: 30 ml Documented by: Amlodipine Besylate (Amlodipine Besylate 5 Mg Tablet) 5 mg PO DAILY [facility]; Protocol Last Admin: 08/19/21 10:03 Dose: 5 mg Documented by: Bupropion HCl (Bupropion Hcl Xl 300 Mg Tab.Er.24h) 300 mg PO DAILY [facility] Last Admin: 08/19/21 10:03 Dose: 300 mg Documented by: Chlorpromazine HCl (Chlorpromazine Hcl 100 Mg Tablet) 200 mg PO BEDTIME [facility] Last Admin: 08/18/21 21:45 Dose: 200 mg Documented by: Chlorpromazine HCl (Chlorpromazine Hcl 100 Mg Tablet) 100 mg PO Q4H PRN PRN Reason: AH Last Admin: 08/19/21 12:56 Dose: 100 mg Documented by: Clonidine HCl (Clonidine Hcl 0.1 Mg Tablet) 0.1 mg PO BID PRN; Protocol PRN Reason: Anxiety Last Admin: 08/19/21 12:56 Dose: 0.1 mg Documented by: Clonidine HCl (Clonidine Hcl 0.1 Mg Tablet) 0.3 mg PO BEDTIME [facility]; Protocol Last Admin: 08/18/21 21:44 Dose: 0.3 mg Documented by: Hydroxyzine HCl (Hydroxyzine Hcl 50 Mg Tablet) 50 mg PO BID [facility] Last Admin: 08/19/21 10:04 Dose: 50 mg Documented by: Hydroxyzine HCl (Hydroxyzine Hcl 50 Mg Tablet) 50 mg PO BID PRN PRN Reason: Anxiety Last Admin: 08/18/21 21:46 Dose: 50 mg Documented by: Magnesium Citrate (Magnesium Citrate 300 Ml Solution) 300 ml PO DAILY PRN PRN Reason: constipation Last Admin: 08/13/21 12:31 Dose: 300 ml Documented by: Magnesium Hydroxide (Milk Of Magnesia 30 Ml Oral.Susp) 30 ml PO DAILY PRN PRN Reason: Constipation Last Admin: 08/12/21 20:37 Dose: 30 ml Documented by: Mirtazapine (Mirtazapine 30 Mg Tablet) 30 mg PO BEDTIME [facility] Last Admin: 08/18/21 21:44 Dose: 30 mg Documented by: Nicotine Polacrilex (Nicotine Polacrilex 2 Mg Gum) 4 mg BUCCAL Q2H PRN PRN Reason: Nicotine Cravings Pt Own Med ( Glecaprevir- Pibrentasvir [ Mavyret] 100-40 Mg Tablet) 3 tab PO DAILY [facility] Last Admin: 08/19/21 10:02 Dose: 3 tab Documented by: Tamsulosin HCl (Tamsulosin Hcl 0.4 Mg Capsule) 0.4 mg PO DAILY@1730 [facility] Last Admin: 08/18/21 16:33 Dose: 0.4 mg Documented by: Trazodone HCl (Trazodone Hcl 50 Mg Tablet) 50 mg PO BEDTIME [facility] Last Admin: 08/18/21 21:46 Dose: 50 mg Documented by: Trazodone HCl (Trazodone Hcl 100 Mg Tablet) 200 mg PO BEDTIME [facility] Last Admin: 08/18/21 21:45 Dose: 200 mg Documented by: Allergies Allergies Allergy/AdvReac Type Severity Reaction Status Date / Time No Known Allergies Allergy Verified 01/15/21 10:44 [No Known Allergies*] Assessment & Plan Assessment & Plan (1) Post traumatic stress disorder (PTSD): Status: Acute Code(s): F43.10 - Post-traumatic stress disorder, unspecified (2) MDD (major depressive disorder), recurrent, severe, with psychosis: Status: Acute Code(s): F33.3 - Major depressive disorder, recurrent, severe with psychotic symptoms (3) Opioid use disorder, moderate, in sustained remission: Status: Acute Code(s): F11.21 - Opioid dependence, in remission Plan Brian is a 46 y.o. male who carries a dx of PTSD, opioid use disorder. He presented to [facility] ED on 08/04/21 due to depression and SI. He had been sober x 2 years from opiates, however his mother a month ago and he relapsed. Utox is positive for fentanyl, opiates, PCP, and cocaine. He overdosed on heroin in attempt to kill himself. Endorses AH, hearing command telling him he should kill himself. Plan: 08/07: increase trazodone to 100 mg QHS for sleep. Add vistaril 50 mg BID PRN for agitation, anxiety. Pt recently restarted medications, will monitor for benefit. 08/09: Continue current regimen and plans with no changes today 08/10: Continue current regimen and plans with increase of trazodone to 200 mg q.h.s. 08/11 continue current regimen for now 08/12: restarted wellbutrin, DC thorazine, restarted seroquel 100 PRN, added clonidine 0.2 mg at HS. 08/13: slept better last night. asked to DC seroquel in favor of thorazine, which was done. considering ECT in the event meds don't work out. he reports h/o two prior trials of ECT which were effective. 08/15: clonidine 0.2 mg at HS increased to 0.3 mg. mood slightly improved, as have been AH. 08/16: Ct Rx plan 08/17: Ct Rx plan. Review hypnotics use. 08/18: continues to improve. full range of affect today. I spent ___20___ minutes with the patient and/or on the patient floor today, greater than?50% of which was spent counseling/coordinating care. Patient educated on: therapeutic strategies Reason for contiued inpatient stay Substantial Risk for: harm to self
[2021-08-19] MEDS: cloNIDine HCL 0.1 MG TABLET 0.3 MG PO (20:44)
[2021-08-19 20:45] VITALS: BP 135/74; PULSE 64; RESP 16; TEMP 36.8; O2SAT 95
[2021-08-19] MEDS: traZODone HCL 50 MG TABLET PO (20:45)
[2021-08-19] MEDS: chlorproMAZINE HCl 100 MG TABLET 200 MG PO (20:45)
[2021-08-19] MEDS: Mirtazapine 30 MG TABLET PO (20:46)
[2021-08-19] MEDS: traZODone HCL 100 MG TABLET 200 MG PO (20:46)
[2021-08-20] MEDS: hydrOXYzine HCL 50 MG TABLET PO ×2 (09:57→20:39)
[2021-08-20] MEDS: buPROPion HCl XL 300 MG TAB.ER.24H PO (09:57)
[2021-08-20 10:53] VITALS: BP 134/86; PULSE 71; RESP 17; TEMP 36.3; O2SAT 98
[2021-08-20] MEDS: cloNIDine HCL 0.1 MG TABLET PO (10:55)
[2021-08-20] MEDS: Milk of Magnesia 30 ML ORAL.SUSP PO (11:15)
--- NOTE | 2021-08-20 14:08 | P.PNPSI_ITS ---
Subjective Subjective Date of Service: 08/20/21 Reason For Visit: AH/SI Interim History: pt found in milieu. no substantial change in presentation. feeling ready for discharge. sad news - he was informed that a resident of the sober house at which he had been staying yesterday, someone he had known for 2 years. he states he is doing OK with it. future-oriented, more affectively expressive. per staff, not attending groups. low anx/dep. no SI. eating and sleeping well. discharge wednesday. Mental Status Exam Mental Status Exam Narrative: appropriately dressed and groomed in street clothes. good eye contact. less PMR. cooperative. speech nml amount, rate and loudness; flattened tone. thoughts linear and logical. affect flexible. mood improved. no SI/HI/AVH expressed. Diagnostics Vital Signs (24Hr): Vital Signs - 24 hr 08/19/21 20:45 08/20/21 10:53 Temperature 98.3 F 97.4 F Pulse Rate 64 71 Respiratory Rate 16 17 Blood Pressure 135/74 134/86 Pulse Oximetry 95 98 BMI result Body Mass Index 26.4 Labs Results: 08/04/21 01:54 08/08/21 08:21 Medications Medications Current Medications Acetaminophen (Acetaminophen 325 Mg Tablet) 650 mg PO Q6H PRN PRN Reason: Headache/Pain Mild Scale (1-3) Last Admin: 08/18/21 21:45 Dose: 650 mg Documented by: Al Hydroxide/Mg Hydroxide (Magnesium Hydrox/Alum Hydrox 30 Ml Oral.Susp) 30 ml PO Q6H PRN PRN Reason: Heartburn/Nausea Last Admin: 08/15/21 21:53 Dose: 30 ml Documented by: Amlodipine Besylate (Amlodipine Besylate 5 Mg Tablet) 5 mg PO DAILY [facility]; Protocol Last Admin: 08/20/21 10:06 Dose: Not Given Documented by: Bupropion HCl (Bupropion Hcl Xl 300 Mg Tab.Er.24h) 300 mg PO DAILY [facility] Last Admin: 08/20/21 09:57 Dose: 300 mg Documented by: Chlorpromazine HCl (Chlorpromazine Hcl 100 Mg Tablet) 200 mg PO BEDTIME [facility] Last Admin: 08/19/21 20:45 Dose: 200 mg Documented by: Chlorpromazine HCl (Chlorpromazine Hcl 100 Mg Tablet) 100 mg PO Q4H PRN PRN Reason: AH Last Admin: 08/19/21 12:56 Dose: 100 mg Documented by: Clonidine HCl (Clonidine Hcl 0.1 Mg Tablet) 0.1 mg PO BID PRN; Protocol PRN Reason: Anxiety Last Admin: 08/20/21 10:55 Dose: 0.1 mg Documented by: Clonidine HCl (Clonidine Hcl 0.1 Mg Tablet) 0.3 mg PO BEDTIME [facility]; Protocol Last Admin: 08/19/21 20:44 Dose: 0.3 mg Documented by: Hydroxyzine HCl (Hydroxyzine Hcl 50 Mg Tablet) 50 mg PO BID [facility] Last Admin: 08/20/21 09:57 Dose: 50 mg Documented by: Hydroxyzine HCl (Hydroxyzine Hcl 50 Mg Tablet) 50 mg PO BID PRN PRN Reason: Anxiety Last Admin: 08/18/21 21:46 Dose: 50 mg Documented by: Magnesium Citrate (Magnesium Citrate 300 Ml Solution) 300 ml PO DAILY PRN PRN Reason: constipation Last Admin: 08/13/21 12:31 Dose: 300 ml Documented by: Magnesium Hydroxide (Milk Of Magnesia 30 Ml Oral.Susp) 30 ml PO DAILY PRN PRN Reason: Constipation Last Admin: 08/20/21 11:15 Dose: 30 ml Documented by: Mirtazapine (Mirtazapine 30 Mg Tablet) 30 mg PO BEDTIME [facility] Last Admin: 08/19/21 20:46 Dose: 30 mg Documented by: Nicotine Polacrilex (Nicotine Polacrilex 2 Mg Gum) 4 mg BUCCAL Q2H PRN PRN Reason: Nicotine Cravings Pt Own Med ( Glecaprevir- Pibrentasvir [ Mavyret] 100-40 Mg Tablet) 3 tab PO DAILY [facility] Last Admin: 08/20/21 09:56 Dose: 3 tab Documented by: Tamsulosin HCl (Tamsulosin Hcl 0.4 Mg Capsule) 0.4 mg PO DAILY@1730 [facility] Last Admin: 08/19/21 18:42 Dose: Not Given Documented by: Trazodone HCl (Trazodone Hcl 50 Mg Tablet) 50 mg PO BEDTIME [facility] Last Admin: 08/19/21 20:45 Dose: 50 mg Documented by: Trazodone HCl (Trazodone Hcl 100 Mg Tablet) 200 mg PO BEDTIME [facility] Last Admin: 08/19/21 20:46 Dose: 200 mg Documented by: Allergies Allergies Allergy/AdvReac Type Severity Reaction Status Date / Time No Known Allergies Allergy Verified 01/15/21 10:44 [No Known Allergies*] Assessment & Plan Assessment & Plan (1) Post traumatic stress disorder (PTSD): Status: Acute Code(s): F43.10 - Post-traumatic stress disorder, unspecified (2) MDD (major depressive disorder), recurrent, severe, with psychosis: Status: Acute Code(s): F33.3 - Major depressive disorder, recurrent, severe with psychotic symptoms (3) Opioid use disorder, moderate, in sustained remission: Status: Acute Code(s): F11.21 - Opioid dependence, in remission Plan Brian is a 46 y.o. male who carries a dx of PTSD, opioid use disorder. He presented to [facility] ED on 08/04/21 due to depression and SI. He had been sober x 2 years from opiates, however his mother a month ago and he relapsed. Utox is positive for fentanyl, opiates, PCP, and cocaine. He overdosed on heroin in attempt to kill himself. Endorses , hearing command telling him he should kill himself. Plan: 08/07: increase trazodone to 100 mg QHS for sleep. Add vistaril 50 mg BID PRN for agitation, anxiety. Pt recently restarted medications, will monitor for benefit. 08/09: Continue current regimen and plans with no changes today 08/10: Continue current regimen and plans with increase of trazodone to 200 mg q.h.s. 08/11 continue current regimen for now 08/12: restarted wellbutrin, DC thorazine, restarted seroquel 100 PRN, added clonidine 0.2 mg at HS. 08/13: slept better last night. asked to DC seroquel in favor of thorazine, which was done. considering ECT in the event meds don't work out. he reports h/o two prior trials of ECT which were effective. 08/15: clonidine 0.2 mg at HS increased to 0.3 mg. mood slightly improved, as have been AH. 08/16: Ct Rx plan 08/17: Ct Rx plan. Review hypnotics use. 08/18: continues to improve. full range of affect today. I spent ___25___ minutes with the patient and/or on the patient floor today, greater than?50% of which was spent counseling/coordinating care. Reason for contiued inpatient stay Substantial Risk for: harm to self, inability to function and rapid decompensation
[2021-08-20] MEDS: chlorproMAZINE HCl 100 MG TABLET 200 MG PO (20:37)
[2021-08-20] MEDS: Mirtazapine 30 MG TABLET PO (20:38)
[2021-08-20] MEDS: traZODone HCL 100 MG TABLET 200 MG PO (20:38)
[2021-08-20] MEDS: cloNIDine HCL 0.1 MG TABLET 0.3 MG PO (20:39)
[2021-08-20 20:40] VITALS: BP 101/62; PULSE 67; RESP 18; TEMP 36.6; O2SAT 95
[2021-08-20] MEDS: traZODone HCL 50 MG TABLET PO (20:40)
[2021-08-21] MEDS: buPROPion HCl XL 300 MG TAB.ER.24H PO (09:29)
[2021-08-21] MEDS: hydrOXYzine HCL 50 MG TABLET PO ×2 (09:29→20:58)
[2021-08-21] MEDS: amLODIPine Besylate 5 MG TABLET PO (09:29)
[2021-08-21 09:30] VITALS: BP 101/68; PULSE 79; RESP 17; TEMP 36.6; O2SAT 97
[2021-08-21] MEDS: Milk of Magnesia 30 ML ORAL.SUSP PO (10:06)
[2021-08-21] MEDS: cloNIDine HCL 0.1 MG TABLET PO (13:58)
--- NOTE | 2021-08-21 14:29 | P.PNPSI_ITS ---
Subjective Subjective Date of Service: 08/21/21 Reason For Visit: AH/SI Interim History: in milieu, pleasant. states he is feeling better, more flexible affect. sleeping well. no complaints or concerns. per staff, med-compliant, spent much of day processing the loss of a friend from the sober house. Mental Status Exam Mental Status Exam Narrative: appropriately dressed and groomed in street clothes. good eye contact. less PMR. cooperative. speech nml amount, rate and loudness; flattened tone. thoughts linear and logical. affect flexible and full range. mood improved. no SI/HI/AVH expressed. Diagnostics Vital Signs (24Hr): Vital Signs - 24 hr 08/20/21 20:40 08/21/21 09:30 Temperature 97.8 F 97.9 F Pulse Rate 67 79 Respiratory Rate 18 17 Blood Pressure 101/62 101/68 Pulse Oximetry 95 97 BMI result Body Mass Index 26.4 Labs Results: 08/04/21 01:54 08/08/21 08:21 Medications Medications Current Medications Acetaminophen (Acetaminophen 325 Mg Tablet) 650 mg PO Q6H PRN PRN Reason: Headache/Pain Mild Scale (1-3) Last Admin: 08/18/21 21:45 Dose: 650 mg Documented by: Al Hydroxide/Mg Hydroxide (Magnesium Hydrox/Alum Hydrox 30 Ml Oral.Susp) 30 ml PO Q6H PRN PRN Reason: Heartburn/Nausea Last Admin: 08/15/21 21:53 Dose: 30 ml Documented by: Amlodipine Besylate (Amlodipine Besylate 5 Mg Tablet) 5 mg PO DAILY [facility]; Protocol Last Admin: 08/21/21 09:29 Dose: 5 mg Documented by: Bupropion HCl (Bupropion Hcl Xl 300 Mg Tab.Er.24h) 300 mg PO DAILY [facility] Last Admin: 08/21/21 09:29 Dose: 300 mg Documented by: Chlorpromazine HCl (Chlorpromazine Hcl 100 Mg Tablet) 200 mg PO BEDTIME [facility] Last Admin: 08/20/21 20:37 Dose: 200 mg Documented by: Chlorpromazine HCl (Chlorpromazine Hcl 100 Mg Tablet) 100 mg PO Q4H PRN PRN Reason: AH Last Admin: 08/19/21 12:56 Dose: 100 mg Documented by: Clonidine HCl (Clonidine Hcl 0.1 Mg Tablet) 0.1 mg PO BID PRN; Protocol PRN Reason: Anxiety Last Admin: 08/21/21 13:58 Dose: 0.1 mg Documented by: Clonidine HCl (Clonidine Hcl 0.1 Mg Tablet) 0.3 mg PO BEDTIME [facility]; Protocol Last Admin: 08/20/21 20:39 Dose: 0.3 mg Documented by: Hydroxyzine HCl (Hydroxyzine Hcl 50 Mg Tablet) 50 mg PO BID [facility] Last Admin: 08/21/21 09:29 Dose: 50 mg Documented by: Hydroxyzine HCl (Hydroxyzine Hcl 50 Mg Tablet) 50 mg PO BID PRN PRN Reason: Anxiety Last Admin: 08/18/21 21:46 Dose: 50 mg Documented by: Magnesium Citrate (Magnesium Citrate 300 Ml Solution) 300 ml PO DAILY PRN PRN Reason: constipation Last Admin: 08/13/21 12:31 Dose: 300 ml Documented by: Magnesium Hydroxide (Milk Of Magnesia 30 Ml Oral.Susp) 30 ml PO DAILY PRN PRN Reason: Constipation Last Admin: 08/21/21 10:06 Dose: 30 ml Documented by: Mirtazapine (Mirtazapine 30 Mg Tablet) 30 mg PO BEDTIME [facility] Last Admin: 08/20/21 20:38 Dose: 30 mg Documented by: Nicotine Polacrilex (Nicotine Polacrilex 2 Mg Gum) 4 mg BUCCAL Q2H PRN PRN Reason: Nicotine Cravings Pt Own Med ( Glecaprevir- Pibrentasvir [ Mavyret] 100-40 Mg Tablet) 3 tab PO DAILY [facility] Last Admin: 08/21/21 09:30 Dose: 3 tab Documented by: Tamsulosin HCl (Tamsulosin Hcl 0.4 Mg Capsule) 0.4 mg PO DAILY@1730 [facility] Last Admin: 08/20/21 18:59 Dose: Not Given Documented by: Trazodone HCl (Trazodone Hcl 50 Mg Tablet) 50 mg PO BEDTIME [facility] Last Admin: 08/20/21 20:40 Dose: 50 mg Documented by: Trazodone HCl (Trazodone Hcl 100 Mg Tablet) 200 mg PO BEDTIME [facility] Last Admin: 08/20/21 20:38 Dose: 200 mg Documented by: Allergies Allergies Allergy/AdvReac Type Severity Reaction Status Date / Time No Known Allergies Allergy Verified 01/15/21 10:44 [No Known Allergies*] Assessment & Plan Assessment & Plan (1) Post traumatic stress disorder (PTSD): Status: Acute Code(s): F43.10 - Post-traumatic stress disorder, unspecified (2) MDD (major depressive disorder), recurrent, severe, with psychosis: Status: Acute Code(s): F33.3 - Major depressive disorder, recurrent, severe with psychotic symptoms (3) Opioid use disorder, moderate, in sustained remission: Status: Acute Code(s): F11.21 - Opioid dependence, in remission Plan Brian is a 46 y.o. male who carries a dx of PTSD, opioid use disorder. He presented to [facility] ED on 08/04/21 due to depression and SI. He had been sober x 2 years from opiates, however his mother a month ago and he relapsed. Utox is positive for fentanyl, opiates, PCP, and cocaine. He overdosed on heroin in attempt to kill himself. Endorses AH, hearing command AH telling him he should kill himself. Plan: 08/07: increase trazodone to 100 mg QHS for sleep. Add vistaril 50 mg BID PRN for agitation, anxiety. Pt recently restarted medications, will monitor for benefit. 08/09: Continue current regimen and plans with no changes today 08/10: Continue current regimen and plans with increase of trazodone to 200 mg q.h.s. 08/11 continue current regimen for now 08/12: restarted wellbutrin, DC thorazine, restarted seroquel 100 PRN, added clonidine 0.2 mg at HS. 08/13: slept better last night. asked to DC seroquel in favor of thorazine, which was done. considering ECT in the event meds don't work out. he reports h/o two prior trials of ECT which were effective. 08/15: clonidine 0.2 mg at HS increased to 0.3 mg. mood slightly improved, as have been AH. 08/16: Ct Rx plan 08/17: Ct Rx plan. Review hypnotics use. 08/18: continues to improve. full range of affect today. 08/21: stable, discharge tomorrow. I spent ___20___ minutes with the patient and/or on the patient floor today, greater than?50% of which was spent counseling/coordinating care. Reason for contiued inpatient stay Substantial Risk for: stable for discharge
[2021-08-21 20:55] VITALS: BP 163/87; PULSE 61; RESP 18; TEMP 36.6; O2SAT 96
[2021-08-21] MEDS: chlorproMAZINE HCl 100 MG TABLET 200 MG PO (20:57)
[2021-08-21] MEDS: Mirtazapine 30 MG TABLET PO (20:58)
[2021-08-21] MEDS: cloNIDine HCL 0.1 MG TABLET 0.3 MG PO (20:58)
[2021-08-21] MEDS: traZODone HCL 100 MG TABLET 200 MG PO (20:58)
[2021-08-21] MEDS: traZODone HCL 50 MG TABLET PO (20:58)
[2021-08-21 21:02] VITALS: BP 119/74; PULSE 61
[2021-08-22 08:56] VITALS: BP 114/74; PULSE 73; TEMP 36.6; O2SAT 96
[2021-08-22] MEDS: hydrOXYzine HCL 50 MG TABLET PO (09:37)
[2021-08-22] MEDS: buPROPion HCl XL 300 MG TAB.ER.24H PO (09:37)
[2021-08-22] MEDS: amLODIPine Besylate 5 MG TABLET PO (09:37)
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
== END 2021-08-22 13:05 | disposition home or self-care (01) | DRG 751 ==
LOC: HO.ED 08-07 10:01 → HO.PADLT16 08-07 14:55
PROVIDERS: Physician Assistant; Admitting Provider Psychiatry & Neurology Psychiatry; Emergency Provider Emergency Medicine; PCP Internal Medicine; Visit Provider Psychiatry & Neurology Psychiatry
DX: F33.3 Major depressive disorder, recurrent, severe with psychotic symptoms (principal); R45.851 Suicidal ideations; F43.10 Post-traumatic stress disorder, unspecified; I10 Essential (primary) hypertension; K21.9 Gastro-esophageal reflux disease without esophagitis; F11.20 Opioid dependence, uncomplicated; Z20.822 Contact with and (suspected) exposure to COVID-19; Z62.810 Personal history of physical and sexual abuse in childhood; Z87.891 Personal history of nicotine dependence; Z79.899 Other long term (current) drug therapy
CPT/HCPCS: 36415; 80048; 80053; 80061; 80076; 80307; 81001; 82077; 82607; 82746; 83036; 84439; 84443; 85025; 87635; 93005; 96360; 96361; 99285

== ENCOUNTER 2022-02-11 11:30 | Emergency (ER) | payer MEDICAID, SELFPAY ==
--- NOTE | ~2022-02-11 | CT_ITS ---
EXAMINATION: CT ABDOMEN AND PELVIS WITHOUT CONTRAST CLINICAL INFORMATION: Flank pain, history of kidney stones. COMPARISON: CT scan of the abdomen and pelvis dated 01/01/2021. TECHNIQUE: Multidetector volumetric imaging was performed from the superior aspect of the liver through the pubic symphysis. Sagittal and coronal reformatted images were obtained on the technologist's workstation. Lack of intravenous and oral contrast limits visceral evaluation. This CT examination was performed using dose optimization techniques as appropriate, variously including the following: *Automated exposure control *Adjustment of mA and/or kV according to patient size (this includes techniques or standardized protocols for targeted exams where dose is matched to indication/reason for exam; i.e. extremities or head) *Use of iterative reconstruction technique DLP: 508 mGy-cm FINDINGS: LUNG BASES: Mild bibasilar linear atelectasis/scarring. No pleural or pericardial effusions. LIVER, GALLBLADDER, AND BILIARY TREE: Unremarkable. PANCREAS: Unremarkable. SPLEEN: Unremarkable. ADRENAL GLANDS: Unremarkable. KIDNEYS AND URETERS: Nonobstructing intrarenal calculi are seen bilaterally. A 0.6 cm calculus is seen in the interpolar right kidney (image 59, series 7). No hydroureteronephrosis. BLADDER: Unremarkable. GASTROINTESTINAL TRACT: The stomach, small bowel and appendix are unremarkable. The colon shows mild diverticulosis in the sigmoid colon without surrounding abnormality. Interval improvement in mural thickening in the descending colon. ABDOMINAL WALL: Post surgical changes. No abnormality. LYMPH NODES: No lymphadenopathy. VASCULAR: Unremarkable. PELVIC VISCERA: Unremarkable. OSSEOUS STRUCTURES: L5-S1 severe degenerative disc disease. No suspicious abnormality. CT/CT abdomen pelvis wo IV con IMPRESSION: 1. Nonobstructing intrarenal calculi bilaterally. No hydroureteronephrosis. 2. Mild sigmoid diverticulosis without evidence for acute diverticulitis. Interval improvement in previously seen descending colitis.
--- NOTE | ~2022-02-11 | US_ITS ---
EXAMINATION: US SCROTUM CLINICAL INFORMATION: Right testicular. COMPARISON: None TECHNIQUE: A sonogram of the scrotum was performed assessing stoner-scale appearance and color Doppler flow. Spectral Doppler analysis of the arterial and venous flow were performed in the testes bilaterally. FINDINGS: RIGHT: Right testicle measures 5.2 x 2.6 x 3.2 cm, volume 22.2 mL. No focal testicular parenchymal lesions are visualized. Spectral Doppler analysis of the arterial and venous flow is normal in the right testis. Right epididymal head is normal in size. No right hydrocele or varicocele is seen. Right epididymal Doppler flow is normal. There is a question of a small hernia seen in the right inguinal canal. LEFT: Left testicle measures 5.1 x 2.1 x 3.4 cm, volume 19.6 mL. No focal testicular parenchymal lesions are visualized. Spectral Doppler analysis of the arterial and venous flow is normal in the left testis. Left epididymal head is normal in size. No left hydrocele or varicocele is seen. Left epididymal Doppler flow is normal. US/US scrotum IMPRESSION: Normal-appearing testes. No evidence of testicular torsion. Question of a small right inguinal hernia.
[2022-02-11 15:11] VITALS: BP 125/94; PULSE 63; RESP 18; TEMP 36.6; O2SAT 95; BMI 25.7
[2022-02-11 15:53] LABS: MANUAL DIFF FLAG NO
[2022-02-11 15:55] LABS: Basophils Absolute Auto 0.1 X10*3/uL (0.0-0.2); Basophils Percent Auto 0.9 % (0-2); Eosinophils Absolute Auto 0.2 X10*3/uL (0.0-0.4); Eosinophils Percent Auto 2.9 % (0-4); Hematocrit 47.8 % (42.0-52.0); Hemoglobin 16.4 g/dl (14.0-18.0); Imm Gran Abs Auto 0.02 X10*3/uL (0.00-0.03); Imm Gran Pct Auto 0.3 % (0.0-0.4); Lymphocytes Absolute Auto 2.6 X10*3/uL (1.2-4.9); Lymphocytes Percent Auto 37.4 % (20-40); Mean Corpuscular HGB Conc 34.3 g/dl (31.0-36.0); Mean Corpuscular Volume 84.6 fL (80.0-98.0); Mean Platelet Volume 8.9 fL (9.4-12.4); Monocytes Absolute Auto 0.6 X10*3/uL (0.1-1.2); Monocytes Percent Auto 8.6 % (2-11); Neutrophils Absolute Auto 3.5 x10*3/uL (2.0-8.3); Neutrophils Percent Auto 49.9 % (45-73); Platelet Count 289 X10*3/uL (160-400); Red Blood Count 5.65 X10*6/uL (4.60-5.80); Red Cell Distribution Width 13.2 % (11.0-16.0); White Blood Count 6.9 X10*3/uL (4.8-10.8)
[2022-02-11 19:16] LABS: Appearance Urine Clear; Color Urine Yellow; Glucose Urine UA Negative (Negative); Leukocyte Esterase Urine Negative (Negative); Nitrite Urine Negative (Negative); PH 5.5 (5.0-9.0); Specific Gravity - Urine 1.025 (1.005-1.025); Urine Blood Negative (Negative); Urine Ketones Negative (Negative); Urine Protein Negative (Neg-Trace)
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
[2022-02-11] MEDS: Ketorolac Tromethamine 60 MG/2 ML VIAL IM (22:22)
[2022-02-11 22:24] LABS: Anion Gap 14 (12-20); Blood Urea Nitrogen 20 mg/dL (9-16); Calcium 9.4 mg/dL (8.4-10.2); Carbon Dioxide 25 mmol/L (22-29); Chloride 106 mmol/L (96-108); Creatinine Clr Calc Pharmacy 105.7; Estimated Glomerular Filt Rate > 60; Glucose Random 114 mg/dL (60-115); Potassium 3.9 mmol/L (3.3-5.1); Sodium 141 mmol/L (135-145)
--- NOTE | 2022-02-11 22:25 | PC.NURSE ---
pt a&ox3, pt reporting 10/10 groin/testicular pain, medicated per provider order, u/s at bedside.
[2022-02-11 23:18] VITALS: BP 111/74; PULSE 68; RESP 16; TEMP 36.6; O2SAT 95
[2022-02-12 02:01] LABS: CT PCR NOT DETECTED (Not Detect.); NG PCR NOT DETECTED (Not Detect.)
== END 2022-02-12 00:48 | disposition home or self-care (01) ==
PROVIDERS: Nurse Practitioner Family; Emergency Provider Emergency Medicine; PCP Internal Medicine
DX: N20.0 Calculus of kidney (principal); K40.90 Unilateral inguinal hernia, without obstruction or gangrene, not specified as recurrent; N50.811 Right testicular pain; M54.16 Radiculopathy, lumbar region; I10 Essential (primary) hypertension; Z87.891 Personal history of nicotine dependence; Z79.899 Other long term (current) drug therapy
CPT/HCPCS: 36415; 74176; 76870; 80048; 81003; 85025; 87491; 87591; 96372; 99284; J1885

== ENCOUNTER 2022-05-15 12:25 | Inpatient (IN) | payer OTHER, MEDICAID, SELFPAY ==
--- NOTE | ~2022-05-15 | XR_ITS ---
EXAMINATION: XR ABDOMEN COMPLETE CLINICAL INDICATION: Reason for Exam assess stool volume COMPARISON: KUB 07/17/2020 TECHNIQUE: AP view of the abdomen. FINDINGS: Lines or devices: Right-sided nephroureteral stent overlying the expected region of the right kidney and bladder. Nonobstructive bowel gas pattern. Mild colonic stool burden. No extraluminal subdiaphragmatic air. No abnormal calcifications. XR/XR KUB IMPRESSION: * Nonobstructive bowel gas pattern. Mild colonic stool burden.
--- NOTE | ~2022-05-15 | FL_ITS ---
EXAMINATION: XR FLUOROSCOPY WITH IMAGES CLINICAL INFORMATION: Right-sided stone COMPARISON: CT abdomen pelvis on 05/15/2022 TECHNIQUE: Fluoroscopy Supervised By: Dr. Pastor. Fluoroscopy Time: 39.8 seconds. Cumulative Dose: 10.22 mGy. Images: 4. FINDINGS: Fluoroscopy performed during right-sided retrograde ureteroscopy and ureteral stent placement. FL/FL guidance in OR IMPRESSION: Fluoroscopy provided for the operating room. Please see operative report for additional information.
--- NOTE | ~2022-05-15 | CT_ITS ---
EXAMINATION: CT ABDOMEN AND PELVIS WITHOUT CONTRAST CLINICAL INFORMATION: Right flank pain COMPARISON: 02/11/2022 TECHNIQUE: Multidetector volumetric imaging was performed from the lung bases through the pubic symphysis. Sagittal and coronal reformatted images were obtained on the technologist workstation. This CT examination was performed using dose optimization techniques as appropriate, variously including the following: *Automated exposure control *Adjustment of mA and/or kV according to patient size (this includes techniques or standardized protocols for targeted exams where dose is matched to indication/reason for exam; i.e. extremities or head) *Use of iterative reconstruction technique FINDINGS: The lack of intravenous contrast limits evaluation of the solid visceral organs including the liver, spleen, pancreas, and kidneys. LUNG BASES: Minimal atelectasis at the left lung base. Heart size upper limits of normal. No coronary artery calcification. No pericardial effusion. LIVER, GALLBLADDER, AND BILIARY TREE: Limited non-contrast evaluation is normal. No gross focal hepatic lesion. Normal liver size and contour. No gross biliary ductal dilation. The gallbladder is unremarkable with no evidence of radiopaque gallstones, gallbladder wall thickening, or obvious pericholecystic inflammatory changes. PANCREAS: Limited non-contrast evaluation is normal. No austin-pancreatic fluid. SPLEEN: Limited non-contrast evaluation is normal. ADRENAL GLANDS: Normal; no adrenal mass. KIDNEYS AND URETERS: Bilateral renal calculi or present at most 1-3 mm. There is mild asymmetric right hydroureter with the dilated ureter followed to a 5 mm calculus in the right pelvis, image 69/87. No hydronephrosis. GASTROINTESTINAL TRACT: Stomach and small bowel are nondilated. Normal appendix. ABDOMINAL WALL: No hernia seen. LYMPH NODES: No pathologically enlarged lymph nodes in the abdomen or pelvis. VASCULAR: Normal caliber abdominal aorta. BLADDER: Unremarkable. PELVIC VISCERA: Unremarkable. OSSEOUS STRUCTURES: Degenerative disc disease greatest at L5-S1. No acute or suspicious osseous abnormality. CT/CT abdomen pelvis wo IV con IMPRESSION: 5 mm right distal ureteral calculus results in mild asymmetric right hydroureter but no hydronephrosis. Additional tiny nonobstructing bilateral renal calculi are present.
[2022-05-15 12:35] VITALS: BP 158/102; BP 185/107; PULSE 70; PULSE 86; RESP 18; TEMP 36.8; O2SAT 96; BMI 24.4
[2022-05-15 14:52] LABS: Basophils Absolute Auto 0.1 X10*3/uL (0.0-0.2); Basophils Percent Auto 1.1 % (0-2); Eosinophils Absolute Auto 0.2 X10*3/uL (0.0-0.4); Eosinophils Percent Auto 2.1 % (0-4); Hematocrit 43.4 % (42.0-52.0); Hemoglobin 14.5 g/dl (14.0-18.0); Imm Gran Abs Auto 0.03 X10*3/uL (0.00-0.03); Imm Gran Pct Auto 0.4 % (0.0-0.4); Lymphocytes Absolute Auto 2.1 X10*3/uL (1.2-4.9); Lymphocytes Percent Auto 29.6 % (20-40); MANUAL DIFF FLAG SCAN; Mean Corpuscular HGB Conc 33.4 g/dl (31.0-36.0); Mean Corpuscular Hemoglobin 29.4 pg (27.0-33.0); Monocytes Absolute Auto 0.5 X10*3/uL (0.1-1.2); Monocytes Percent Auto 6.9 % (2-11); Neutrophils Absolute Auto 4.3 x10*3/uL (2.0-8.3); Neutrophils Percent Auto 59.9 % (45-73); PLT CLUMP 1; Red Blood Count 4.93 X10*6/uL (4.60-5.80); SCAN SMEAR FLAG 1
[2022-05-15 15:02] LABS: Alanine Aminotransferase 10 U/L (0-40); Albumin Level 4.7 g/dL (3.5-5.0); Alkaline Phosphatase 69 U/L (39-117); Anion Gap 12 (12-20); Aspartate Amino Transferase 17 U/L (5-37); Bilirubin Direct 0.3 mg/dL (0.0-0.5); Bilirubin Total 0.9 mg/dL (0.0-1.0); Blood Urea Nitrogen 13 mg/dL (9-16); Calcium 9.7 mg/dL (8.4-10.2); Carbon Dioxide 26 mmol/L (22-29); Chloride 108 mmol/L (96-108); Creatinine Clr Calc Pharmacy 105.7; Estimated Glomerular Filt Rate > 60; Glucose Random 90 mg/dL (60-115); Lipase 15 U/L (8-78); Sodium 142 mmol/L (135-145); Total Protein 7.9 g/dL (6.5-8.0)
--- NOTE | 2022-05-15 15:19 | ED.ABDPAIN ---
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 Bupropion HCl 300 mg 05/16/22 09:00 05/25/22 09:32 Bupropion Hcl Xl 300 Mg Tab.Er.24h PO 300 mg DAILY NEIDA Administration Clonidine HCl 0.3 mg 05/16/22 21:00 05/24/22 20:59 Clonidine Hcl 0.1 Mg Tablet PO Not Given BEDTIME NEIDA Protocol Hydroxyzine HCl 100 mg 05/15/22 23:07 05/21/22 20:38 Hydroxyzine Hcl 50 Mg Tablet PO 100 mg BID PRN Administration anxiety Hydroxyzine HCl 25 mg 05/16/22 14:56 05/22/22 01:43 Hydroxyzine Hcl 25 Mg Tablet PO 25 mg Q6H PRN Administration Anxiety Ketorolac Tromethamine 30 mg 05/21/22 23:48 05/21/22 23:55 Ketorolac Tromethamine 30 Mg/Ml Vial IM 30 mg Q6H PRN Administration pain 4-6 Lorazepam 1 mg 05/22/22 12:18 05/25/22 17:52 Lorazepam 1 Mg Tablet PO 1 mg Q4H PRN Administration AH/anxiety Multivitamins/Vitamin C 1 tab 05/18/22 12:10 05/25/22 09:31 Multivitamin Tablet PO 1 tab DAILY NEIDA Administration Nicotine 21 mg 05/16/22 09:00 05/25/22 10:27 Nicotine 21 Mg Patch.Td24 TRANSDERMA 21 mg DAILY NEIDA Administration Ondansetron HCl 8 mg 05/17/22 14:22 05/21/22 08:29 Ondansetron Odt 4 Mg Tab.Rapdis TRANSLINGU 8 mg Q6H PRN Administration nausea Oxybutynin Chloride 5 mg 05/22/22 15:00 05/25/22 14:46 Oxybutynin Chloride Er 5 Mg Tab.Er.24 PO 5 mg TID NEIDA Administration Oxycodone HCl 10 mg 05/22/22 11:54 05/25/22 17:53 Oxycodone Hcl Immed Release 5 Mg Tablet PO 10 mg Q4H PRN Administration Pain, Mild (Pain Scale 7-10) Polyethylene Glycol 17 gm 05/17/22 15:43 05/25/22 09:33 Polyethylene Glycol 3350 17 Gm Powd.Pack PO Not Given BID NEIDA Quetiapine Fumarate 100 mg 05/22/22 21:00 05/24/22 20:57 Quetiapine Fumarate 100 Mg Tablet PO 100 mg BEDTIME NEIDA Administration Quetiapine Fumarate 50 mg 05/22/22 12:19 05/25/22 17:52 Quetiapine Fumarate 50 Mg Tablet PO 50 mg Q4H PRN Administration anxiety/restlessness Tamsulosin HCl 0.4 mg 05/17/22 09:00 05/25/22 09:32 Tamsulosin Hcl 0.4 Mg Capsule PO 0.4 mg DAILY NEIDA Administration Thiamine HCl 100 mg 05/16/22 09:00 05/25/22 09:32 Thiamine Hcl 100 Mg Tablet PO 100 mg DAILY NEIDA Administration Trazodone HCl 200 mg 05/16/22 21:00 05/24/22 20:56 Trazodone Hcl 100 Mg Tablet PO 200 mg BEDTIME NEIDA Administration Discontinued Medications Generic Name Dose Route Start Last Admin Trade Name Freq PRN Reason Stop Dose Admin Hydrocodone Bitart/Acetaminophen 1 tab 05/15/22 17:30 05/15/22 17:41 Hydrocodone Bit/Acetam 5/325 Tablet PO 05/15/22 17:31 1 tab ONCE ONE Administration Buspirone HCl 5 mg 05/17/22 09:00 05/18/22 11:35 Buspirone Hcl 5 Mg Tablet PO 5 mg BID NEIDA Administration Cefazolin Sodium/Dextrose 2 gm in 50 mls @ 100 mls/hr 05/19/22 13:20 05/19/22 19:45 Ancef IV 05/19/22 13:49 Not Given PREOP ONE Ketorolac Tromethamine 30 mg 05/15/22 15:20 05/15/22 15:22 Ketorolac Tromethamine 30 Mg/Ml Vial IVPUSH 05/15/22 15:21 30 mg ONCE ONE Administration Ketorolac Tromethamine 30 mg 05/16/22 19:16 05/20/22 04:39 Ketorolac Tromethamine 30 Mg/Ml Vial IM 05/21/22 19:15 30 mg Q6H PRN Administration Pain, Moderate (Pain Scale 4-6 Morphine Sulfate 4 mg 05/15/22 20:12 05/15/22 20:25 Morphine Sulfate 4 Mg/Ml Cartridge IVPUSH 05/15/22 20:13 4 mg ONCE ONE Administration Protocol Naproxen 500 mg 05/15/22 23:09 05/16/22 12:15 Naproxen 500 Mg Tablet PO 500 mg Q12H PRN Administration Pain, Mild (Pain Scale 1-3) Ondansetron HCl 4 mg 05/15/22 20:12 05/15/22 20:25 Ondansetron Hcl 4 Mg/2 Ml Vial IVPUSH 05/15/22 20:13 4 mg ONCE ONE Administration Ondansetron HCl 4 mg 05/16/22 19:40 05/17/22 09:13 Ondansetron Odt 4 Mg Tab.Rapdis TRANSLINGU 4 mg Q6H PRN Administration nausea Oxybutynin Chloride 5 mg 05/20/22 11:03 05/22/22 10:44 Oxybutynin Chloride Er 5 Mg Tab.Er.24 PO 5 mg TID PRN Administration ureteral spasm Oxybutynin Chloride 5 mg 05/20/22 11:04 05/20/22 13:28 Oxybutynin Chloride Er 5 Mg Tab.Er.24 PO 05/20/22 11:05 5 mg ONCE ONE Administration Oxycodone HCl 5 mg 05/16/22 01:22 05/16/22 13:10 Oxycodone Hcl Immed Release 5 Mg Tablet PO 5 mg Q6H PRN Administration Pain, Moderate (Pain Scale 4-6 Oxycodone HCl 5 mg 05/16/22 15:57 05/16/22 16:59 Oxycodone Hcl Immed Release 5 Mg Tablet PO 5 mg Q4H PRN Administration Pain, Moderate (Pain Scale 4-6 Oxycodone HCl 7.5 mg 05/16/22 18:48 05/21/22 18:10 Oxycodone Hcl Immed Release 5 Mg Tablet PO 7.5 mg Q4H PRN Administration Pain, Moderate (Pain Scale 4-6 Oxycodone HCl 7.5 mg 05/21/22 21:03 05/22/22 10:45 Oxycodone Hcl Immed Release 5 Mg Tablet PO 7.5 mg Q4H PRN Administration Pain, Mild (Pain Scale 7-10) Polyethylene Glycol 17 gm 05/16/22 10:55 05/16/22 11:01 Polyethylene Glycol 3350 17 Gm Powd.Pack PO 05/16/22 10:56 17 gm ONCE ONE Administration Prednisone 40 mg 05/15/22 17:45 05/15/22 17:41 Prednisone 20 Mg Tablet PO 05/15/22 17:46 40 mg ONCE ONE Administration Quetiapine Fumarate 25 mg 05/16/22 14:59 05/22/22 10:44 Quetiapine Fumarate 25 Mg Tablet PO 25 mg Q4H PRN Administration anxiety/restlessness Quetiapine Fumarate 50 mg 05/18/22 21:00 05/21/22 20:36 Quetiapine Fumarate 50 Mg Tablet PO 50 mg BEDTIME NEIDA Administration Quetiapine Fumarate 50 mg 05/18/22 12:07 05/21/22 20:36 Quetiapine Fumarate 50 Mg Tablet PO 50 mg BEDTIME PRN Administration Insomnia Tamsulosin HCl 0.4 mg 05/15/22 17:20 05/15/22 17:41 Tamsulosin Hcl 0.4 Mg Capsule PO 05/15/22 17:21 0.4 mg ONCE ONE Administration Tamsulosin HCl 0.4 mg 05/15/22 22:15 05/21/22 08:48 Tamsulosin Hcl 0.4 Mg Capsule PO 05/22/22 23:55 0.4 mg ONCE NEIDA Administration Tamsulosin HCl 0.4 mg 05/16/22 11:45 05/16/22 12:15 Tamsulosin Hcl 0.4 Mg Capsule PO 05/16/22 11:46 0.4 mg ONCE ONE Administration Trazodone HCl 50 mg 05/15/22 23:07 05/16/22 20:14 Trazodone Hcl 50 Mg Tablet PO 50 mg BEDTIME PRN Administration insomnia Trazodone HCl 50 mg 05/16/22 14:56 05/16/22 22:08 Trazodone Hcl 50 Mg Tablet PO 50 mg BEDTIME PRN Administration Insomnia <DEANA Garza - Last Filed: 05/15/22 17:38> Medications Administered Generic Name Dose Route Start Last Admin Trade Name Herman PRN Reason Stop Dose Admin Acetaminophen 650 mg 05/16/22 14:56 05/23/22 23:00 Acetaminophen 325 Mg Tablet PO 650 mg Q6H PRN Administration Headache/Pain Mild Scale (1-3) Amlodipine Besylate 10 mg 05/16/22 09:00 05/25/22 09:31 Amlodipine Besylate 10 Mg Tablet PO 10 mg DAILY NEIDA Administration Protocol Bisacodyl 10 mg 05/21/22 11:49 05/24/22 14:06 Bisacodyl 10 Mg Supp.Rect TN 10 mg DAILY PRN Administration Constipation Bupropion HCl 300 mg 05/16/22 09:00 05/25/22 09:32 Bupropion Hcl Xl 300 Mg Tab.Er.24h PO 300 mg DAILY NEIDA Administration Clonidine HCl 0.3 mg 05/16/22 21:00 05/24/22 20:59 Clonidine Hcl 0.1 Mg Tablet PO Not Given BEDTIME NEIDA Protocol Hydroxyzine HCl 100 mg 05/15/22 23:07 05/21/22 20:38 Hydroxyzine Hcl 50 Mg Tablet PO 100 mg BID PRN Administration anxiety Hydroxyzine HCl 25 mg 05/16/22 14:56 05/22/22 01:43 Hydroxyzine Hcl 25 Mg Tablet PO 25 mg Q6H PRN Administration Anxiety Ketorolac Tromethamine 30 mg 05/21/22 23:48 05/21/22 23:55 Ketorolac Tromethamine 30 Mg/Ml Vial IM 30 mg Q6H PRN Administration pain 4-6 Lorazepam 1 mg 05/22/22 12:18 05/25/22 17:52 Lorazepam 1 Mg Tablet PO 1 mg Q4H PRN Administration AH/anxiety Multivitamins/Vitamin C 1 tab 05/18/22 12:10 05/25/22 09:31 Multivitamin Tablet PO 1 tab DAILY NEIDA Administration Nicotine 21 mg 05/16/22 09:00 05/25/22 10:27 Nicotine 21 Mg Patch.Td24 TRANSDERMA 21 mg DAILY NEIDA Administration Ondansetron HCl 8 mg 05/17/22 14:22 05/21/22 08:29 Ondansetron Odt 4 Mg Tab.Rapdis TRANSLINGU 8 mg Q6H PRN Administration nausea Oxybutynin Chloride 5 mg 05/22/22 15:00 05/25/22 14:46 Oxybutynin Chloride Er 5 Mg Tab.Er.24 PO 5 mg TID NEIDA Administration Oxycodone HCl 10 mg 05/22/22 11:54 05/25/22 17:53 Oxycodone Hcl Immed Release 5 Mg Tablet PO 10 mg Q4H PRN Administration Pain, Mild (Pain Scale 7-10) Polyethylene Glycol 17 gm 05/17/22 15:43 05/25/22 09:33 Polyethylene Glycol 3350 17 Gm Powd.Pack PO Not Given BID NEIDA Quetiapine Fumarate 100 mg 05/22/22 21:00 05/24/22 20:57 Quetiapine Fumarate 100 Mg Tablet PO 100 mg BEDTIME NEIDA Administration Quetiapine Fumarate 50 mg 05/22/22 12:19 05/25/22 17:52 Quetiapine Fumarate 50 Mg Tablet PO 50 mg Q4H PRN Administration anxiety/restlessness Tamsulosin HCl 0.4 mg 05/17/22 09:00 05/25/22 09:32 Tamsulosin Hcl 0.4 Mg Capsule PO 0.4 mg DAILY NEIDA Administration Thiamine HCl 100 mg 05/16/22 09:00 05/25/22 09:32 Thiamine Hcl 100 Mg Tablet PO 100 mg DAILY NEIDA Administration Trazodone HCl 200 mg 05/16/22 21:00 05/24/22 20:56 Trazodone Hcl 100 Mg Tablet PO 200 mg BEDTIME NEIDA Administration Discontinued Medications Generic Name Dose Route Start Last Admin Trade Name Freq PRN Reason Stop Dose Admin Hydrocodone Bitart/Acetaminophen 1 tab 05/15/22 17:30 05/15/22 17:41 Hydrocodone Bit/Acetam 5/325 Tablet PO 05/15/22 17:31 1 tab ONCE ONE Administration Buspirone HCl 5 mg 05/17/22 09:00 05/18/22 11:35 Buspirone Hcl 5 Mg Tablet PO 5 mg BID NEIDA Administration Cefazolin Sodium/Dextrose 2 gm in 50 mls @ 100 mls/hr 05/19/22 13:20 05/19/22 19:45 Ancef IV 05/19/22 13:49 Not Given PREOP ONE Ketorolac Tromethamine 30 mg 05/15/22 15:20 05/15/22 15:22 Ketorolac Tromethamine 30 Mg/Ml Vial IVPUSH 05/15/22 15:21 30 mg ONCE ONE Administration Ketorolac Tromethamine 30 mg 05/16/22 19:16 05/20/22 04:39 Ketorolac Tromethamine 30 Mg/Ml Vial IM 05/21/22 19:15 30 mg Q6H PRN Administration Pain, Moderate (Pain Scale 4-6 Morphine Sulfate 4 mg 05/15/22 20:12 05/15/22 20:25 Morphine Sulfate 4 Mg/Ml Cartridge IVPUSH 05/15/22 20:13 4 mg ONCE ONE Administration Protocol Naproxen 500 mg 05/15/22 23:09 05/16/22 12:15 Naproxen 500 Mg Tablet PO 500 mg Q12H PRN Administration Pain, Mild (Pain Scale 1-3) Ondansetron HCl 4 mg 05/15/22 20:12 05/15/22 20:25 Ondansetron Hcl 4 Mg/2 Ml Vial IVPUSH 05/15/22 20:13 4 mg ONCE ONE Administration Ondansetron HCl 4 mg 05/16/22 19:40 05/17/22 09:13 Ondansetron Odt 4 Mg Tab.Rapdis TRANSLINGU 4 mg Q6H PRN Administration nausea Oxybutynin Chloride 5 mg 05/20/22 11:03 05/22/22 10:44 Oxybutynin Chloride Er 5 Mg Tab.Er.24 PO 5 mg TID PRN Administration ureteral spasm Oxybutynin Chloride 5 mg 05/20/22 11:04 05/20/22 13:28 Oxybutynin Chloride Er 5 Mg Tab.Er.24 PO 05/20/22 11:05 5 mg ONCE ONE Administration Oxycodone HCl 5 mg 05/16/22 01:22 05/16/22 13:10 Oxycodone Hcl Immed Release 5 Mg Tablet PO 5 mg Q6H PRN Administration Pain, Moderate (Pain Scale 4-6 Oxycodone HCl 5 mg 05/16/22 15:57 05/16/22 16:59 Oxycodone Hcl Immed Release 5 Mg Tablet PO 5 mg Q4H PRN Administration Pain, Moderate (Pain Scale 4-6 Oxycodone HCl 7.5 mg 05/16/22 18:48 05/21/22 18:10 Oxycodone Hcl Immed Release 5 Mg Tablet PO 7.5 mg Q4H PRN Administration Pain, Moderate (Pain Scale 4-6 Oxycodone HCl 7.5 mg 05/21/22 21:03 05/22/22 10:45 Oxycodone Hcl Immed Release 5 Mg Tablet PO 7.5 mg Q4H PRN Administration Pain, Mild (Pain Scale 7-10) Polyethylene Glycol 17 gm 05/16/22 10:55 05/16/22 11:01 Polyethylene Glycol 3350 17 Gm Powd.Pack PO 05/16/22 10:56 17 gm ONCE ONE Administration Prednisone 40 mg 05/15/22 17:45 05/15/22 17:41 Prednisone 20 Mg Tablet PO 05/15/22 17:46 40 mg ONCE ONE Administration Quetiapine Fumarate 25 mg 05/16/22 14:59 05/22/22 10:44 Quetiapine Fumarate 25 Mg Tablet PO 25 mg Q4H PRN Administration anxiety/restlessness Quetiapine Fumarate 50 mg 05/18/22 21:00 05/21/22 20:36 Quetiapine Fumarate 50 Mg Tablet PO 50 mg BEDTIME NEIDA Administration Quetiapine Fumarate 50 mg 05/18/22 12:07 05/21/22 20:36 Quetiapine Fumarate 50 Mg Tablet PO 50 mg BEDTIME PRN Administration Insomnia Tamsulosin HCl 0.4 mg 05/15/22 17:20 05/15/22 17:41 Tamsulosin Hcl 0.4 Mg Capsule PO 05/15/22 17:21 0.4 mg ONCE ONE Administration Tamsulosin HCl 0.4 mg 05/15/22 22:15 05/21/22 08:48 Tamsulosin Hcl 0.4 Mg Capsule PO 05/22/22 23:55 0.4 mg ONCE NEIDA Administration Tamsulosin HCl 0.4 mg 05/16/22 11:45 05/16/22 12:15 Tamsulosin Hcl 0.4 Mg Capsule PO 05/16/22 11:46 0.4 mg ONCE ONE Administration Trazodone HCl 50 mg 05/15/22 23:07 05/16/22 20:14 Trazodone Hcl 50 Mg Tablet PO 50 mg BEDTIME PRN Administration insomnia Trazodone HCl 50 mg 05/16/22 14:56 05/16/22 22:08 Trazodone Hcl 50 Mg Tablet PO 50 mg BEDTIME PRN Administration Insomnia <Yg Domingo MD - Last Filed: 05/16/22 07:14> Medications Administered Generic Name Dose Route Start Last Admin Trade Name Freq PRN Reason Stop Dose Admin Acetaminophen 650 mg 05/16/22 14:56 05/23/22 23:00 Acetaminophen 325 Mg Tablet PO 650 mg Q6H PRN Administration Headache/Pain Mild Scale (1-3) Amlodipine Besylate 10 mg 05/16/22 09:00 05/25/22 09:31 Amlodipine Besylate 10 Mg Tablet PO 10 mg DAILY NEIDA Administration Protocol Bisacodyl 10 mg 05/21/22 11:49 05/24/22 14:06 Bisacodyl 10 Mg Supp.Rect TN 10 mg DAILY PRN Administration Constipation Bupropion HCl 300 mg 05/16/22 09:00 05/25/22 09:32 Bupropion Hcl Xl 300 Mg Tab.Er.24h PO 300 mg DAILY NEIDA Administration Clonidine HCl 0.3 mg 05/16/22 21:00 05/24/22 20:59 Clonidine Hcl 0.1 Mg Tablet PO Not Given BEDTIME NEIDA Protocol Hydroxyzine HCl 100 mg 05/15/22 23:07 05/21/22 20:38 Hydroxyzine Hcl 50 Mg Tablet PO 100 mg BID PRN Administration anxiety Hydroxyzine HCl 25 mg 05/16/22 14:56 05/22/22 01:43 Hydroxyzine Hcl 25 Mg Tablet PO 25 mg Q6H PRN Administration Anxiety Ketorolac Tromethamine 30 mg 05/21/22 23:48 05/21/22 23:55 Ketorolac Tromethamine 30 Mg/Ml Vial IM 30 mg Q6H PRN Administration pain 4-6 Lorazepam 1 mg 05/22/22 12:18 05/25/22 17:52 Lorazepam 1 Mg Tablet PO 1 mg Q4H PRN Administration AH/anxiety Multivitamins/Vitamin C 1 tab 05/18/22 12:10 05/25/22 09:31 Multivitamin Tablet PO 1 tab DAILY NEIDA Administration Nicotine 21 mg 05/16/22 09:00 05/25/22 10:27 Nicotine 21 Mg Patch.Td24 TRANSDERMA 21 mg DAILY NEIDA Administration Ondansetron HCl 8 mg 05/17/22 14:22 05/21/22 08:29 Ondansetron Odt 4 Mg Tab.Rapdis TRANSLINGU 8 mg Q6H PRN Administration nausea Oxybutynin Chloride 5 mg 05/22/22 15:00 05/25/22 14:46 Oxybutynin Chloride Er 5 Mg Tab.Er.24 PO 5 mg TID NEIDA Administration Oxycodone HCl 10 mg 05/22/22 11:54 05/25/22 17:53 Oxycodone Hcl Immed Release 5 Mg Tablet PO 10 mg Q4H PRN Administration Pain, Mild (Pain Scale 7-10) Polyethylene Glycol 17 gm 05/17/22 15:43 05/25/22 09:33 Polyethylene Glycol 3350 17 Gm Powd.Pack PO Not Given BID NEIDA Quetiapine Fumarate 100 mg 05/22/22 21:00 05/24/22 20:57 Quetiapine Fumarate 100 Mg Tablet PO 100 mg BEDTIME NEIDA Administration Quetiapine Fumarate 50 mg 05/22/22 12:19 05/25/22 17:52 Quetiapine Fumarate 50 Mg Tablet PO 50 mg Q4H PRN Administration anxiety/restlessness Tamsulosin HCl 0.4 mg 05/17/22 09:00 05/25/22 09:32 Tamsulosin Hcl 0.4 Mg Capsule PO 0.4 mg DAILY NEIDA Administration Thiamine HCl 100 mg 05/16/22 09:00 05/25/22 09:32 Thiamine Hcl 100 Mg Tablet PO 100 mg DAILY NEIDA Administration Trazodone HCl 200 mg 05/16/22 21:00 05/24/22 20:56 Trazodone Hcl 100 Mg Tablet PO 200 mg BEDTIME NEIDA Administration Discontinued Medications Generic Name Dose Route Start Last Admin Trade Name Freq PRN Reason Stop Dose Admin Hydrocodone Bitart/Acetaminophen 1 tab 05/15/22 17:30 05/15/22 17:41 Hydrocodone Bit/Acetam 5/325 Tablet PO 05/15/22 17:31 1 tab ONCE ONE Administration Buspirone HCl 5 mg 05/17/22 09:00 05/18/22 11:35 Buspirone Hcl 5 Mg Tablet PO 5 mg BID NEIDA Administration Cefazolin Sodium/Dextrose 2 gm in 50 mls @ 100 mls/hr 05/19/22 13:20 05/19/22 19:45 Ancef IV 05/19/22 13:49 Not Given PREOP ONE Ketorolac Tromethamine 30 mg 05/15/22 15:20 05/15/22 15:22 Ketorolac Tromethamine 30 Mg/Ml Vial IVPUSH 05/15/22 15:21 30 mg ONCE ONE Administration Ketorolac Tromethamine 30 mg 05/16/22 19:16 05/20/22 04:39 Ketorolac Tromethamine 30 Mg/Ml Vial IM 05/21/22 19:15 30 mg Q6H PRN Administration Pain, Moderate (Pain Scale 4-6 Morphine Sulfate 4 mg 05/15/22 20:12 05/15/22 20:25 Morphine Sulfate 4 Mg/Ml Cartridge IVPUSH 05/15/22 20:13 4 mg ONCE ONE Administration Protocol Naproxen 500 mg 05/15/22 23:09 05/16/22 12:15 Naproxen 500 Mg Tablet PO 500 mg Q12H PRN Administration Pain, Mild (Pain Scale 1-3) Ondansetron HCl 4 mg 05/15/22 20:12 05/15/22 20:25 Ondansetron Hcl 4 Mg/2 Ml Vial IVPUSH 05/15/22 20:13 4 mg ONCE ONE Administration Ondansetron HCl 4 mg 05/16/22 19:40 05/17/22 09:13 Ondansetron Odt 4 Mg Tab.Rapdis TRANSLINGU 4 mg Q6H PRN Administration nausea Oxybutynin Chloride 5 mg 05/20/22 11:03 05/22/22 10:44 Oxybutynin Chloride Er 5 Mg Tab.Er.24 PO 5 mg TID PRN Administration ureteral spasm Oxybutynin Chloride 5 mg 05/20/22 11:04 05/20/22 13:28 Oxybutynin Chloride Er 5 Mg Tab.Er.24 PO 05/20/22 11:05 5 mg ONCE ONE Administration Oxycodone HCl 5 mg 05/16/22 01:22 05/16/22 13:10 Oxycodone Hcl Immed Release 5 Mg Tablet PO 5 mg Q6H PRN Administration Pain, Moderate (Pain Scale 4-6 Oxycodone HCl 5 mg 05/16/22 15:57 05/16/22 16:59 Oxycodone Hcl Immed Release 5 Mg Tablet PO 5 mg Q4H PRN Administration Pain, Moderate (Pain Scale 4-6 Oxycodone HCl 7.5 mg 05/16/22 18:48 05/21/22 18:10 Oxycodone Hcl Immed Release 5 Mg Tablet PO 7.5 mg Q4H PRN Administration Pain, Moderate (Pain Scale 4-6 Oxycodone HCl 7.5 mg 05/21/22 21:03 05/22/22 10:45 Oxycodone Hcl Immed Release 5 Mg Tablet PO 7.5 mg Q4H PRN Administration Pain, Mild (Pain Scale 7-10) Polyethylene Glycol 17 gm 05/16/22 10:55 05/16/22 11:01 Polyethylene Glycol 3350 17 Gm Powd.Pack PO 05/16/22 10:56 17 gm ONCE ONE Administration Prednisone 40 mg 05/15/22 17:45 05/15/22 17:41 Prednisone 20 Mg Tablet PO 05/15/22 17:46 40 mg ONCE ONE Administration Quetiapine Fumarate 25 mg 05/16/22 14:59 05/22/22 10:44 Quetiapine Fumarate 25 Mg Tablet PO 25 mg Q4H PRN Administration anxiety/restlessness Quetiapine Fumarate 50 mg 05/18/22 21:00 05/21/22 20:36 Quetiapine Fumarate 50 Mg Tablet PO 50 mg BEDTIME NEIDA Administration Quetiapine Fumarate 50 mg 05/18/22 12:07 05/21/22 20:36 Quetiapine Fumarate 50 Mg Tablet PO 50 mg BEDTIME PRN Administration Insomnia Tamsulosin HCl 0.4 mg 05/15/22 17:20 05/15/22 17:41 Tamsulosin Hcl 0.4 Mg Capsule PO 05/15/22 17:21 0.4 mg ONCE ONE Administration Tamsulosin HCl 0.4 mg 05/15/22 22:15 05/21/22 08:48 Tamsulosin Hcl 0.4 Mg Capsule PO 05/22/22 23:55 0.4 mg ONCE NEIDA Administration Tamsulosin HCl 0.4 mg 05/16/22 11:45 05/16/22 12:15 Tamsulosin Hcl 0.4 Mg Capsule PO 05/16/22 11:46 0.4 mg ONCE ONE Administration Trazodone HCl 50 mg 05/15/22 23:07 05/16/22 20:14 Trazodone Hcl 50 Mg Tablet PO 50 mg BEDTIME PRN Administration insomnia Trazodone HCl 50 mg 05/16/22 14:56 05/16/22 22:08 Trazodone Hcl 50 Mg Tablet PO 50 mg BEDTIME PRN Administration Insomnia <Drake Lazcano MD - Last Filed: 05/25/22 18:43> Discharge Plan Discharge Clinical Impression: Right ureteral stone, Depression <DEANA Garza - Last Filed: 05/15/22 17:38> Patient Disposition: Still a Patient <DEANA Garza - Last Filed: 05/15/22 17:38> Interventions: Admission Worksheet (ED) Last Done: 05/16/22 15:18 <DEANA Garza - Last Filed: 05/15/22 17:38> Discharge Date/Time: 05/16/22 15:19 <DEANA Garza - Last Filed: 05/15/22 17:38>
[2022-05-15] MEDS: Ketorolac Tromethamine 30 MG/ML VIAL IVPUSH (15:22)
[2022-05-15 15:35] LABS: Platelet Count 236 X10*3/uL (160-400); White Blood Count 7.1 X10*3/uL (4.8-10.8)
[2022-05-15 15:36] LABS: SLIDE REVIEW VERIFIED
[2022-05-15 15:45] LABS: Appearance Urine Cloudy; Color Urine Dark Yellow; Glucose Urine UA Negative (Negative); Leukocyte Esterase Urine Trace (Negative); Nitrite Urine Negative (Negative); Specific Gravity - Urine 1.025 (1.005-1.025); UMIC TRIGGER UACC YES; Urine Blood Large (3+) (Negative); Urine Ketones 15 mg/dL (Negative); Urine Protein 100 (2+) mg/dL (Neg-Trace)
[2022-05-15 15:48] LABS: Bacteria Urine None Seen (None Seen); Hyaline Casts Urine 0-2 /LPF (0-2); RBC Urine >20 /HPF (0-2); Squamous Epithelial Cell Urine 0-2 /HPF (0-2); WBC Urine 0-5 /HPF (0-5)
[2022-05-15] MEDS: predniSONE 20 MG TABLET 40 MG PO (17:41)
[2022-05-15] MEDS: HYDROcodone Bit/Acetam 5/325 TABLET 1 TAB PO (17:41)
[2022-05-15] MEDS: Tamsulosin HCL 0.4 MG CAPSULE PO (17:41)
[2022-05-15 18:08] LABS: Amphetamine Screen Urine Not Detected (Not Detect); Barbiturates, Urine Not Detected (Not Detect); Benzodiazepines Screen Urine Not Detected (Not Detect); Cannabinoid Screen Urine POSITIVE (Not Detect); Cocaine Screen Urine Not Detected (Not Detect); Fentanyl, urine POSITIVE (Not Detect); Opiate Screen Urine Not Detected (Not Detect); Phencyclidine Screen Urine Not Detected (Not Detect)
[2022-05-15 18:11] LABS: COVID-19 Test Negative (Negative); IDNOW Serial# 16C4AD1C
[2022-05-15 18:33] LABS: Ethanol < 10 mg/dL
[2022-05-15 19:49] VITALS: BP 147/90; PULSE 55; O2SAT 95
[2022-05-15 20:25] VITALS: RESP 16
[2022-05-15] MEDS: Morphine Sulfate 4 MG/ML CARTRIDGE IVPUSH (20:25)
[2022-05-15] MEDS: ondansetron HCL 4 MG/2 ML VIAL IVPUSH (20:25)
--- NOTE | 2022-05-15 20:40 | PC.NURSE ---
This magnetic tape typewriter operator assumed care of this PT at 1900. PT A&Ox4, reports 10/10 R flank pain radiating to the RLQ area with nausea. Provider notified. Meds given as documented. PT changed over done with technical lead. PT denies SI/ HI, calm and cooperative.
[2022-05-15] MEDS: traZODone HCL 50 MG TABLET PO (23:32)
[2022-05-15] MEDS: hydrOXYzine HCL 50 MG TABLET 100 MG PO (23:32)
[2022-05-15] MEDS: NaPROXEN 500 MG TABLET PO (23:32)
[2022-05-16] MEDS: oxyCODONE HCl Immed Release 5 MG TABLET PO ×4 (01:34→16:59)
--- NOTE | 2022-05-16 05:49 | PC.NURSE ---
Patient slept intermittently, currently sleeping, patient reports pain secondary to kidney stone, Oxycodone 5 mg administered at 0134 with + effect, medication compliant, disposition per care team is section 12 inpatient bed search, behavior non concerning, VSS, will continue to monitor.
[2022-05-16 06:23] VITALS: BP 114/66; PULSE 58; RESP 10; TEMP 36.3; O2SAT 96
[2022-05-16] MEDS: amLODIPine Besylate 10 MG TABLET PO (09:39)
[2022-05-16] MEDS: Nicotine 21 MG PATCH.TD24 TRANSDERMA (09:39)
[2022-05-16] MEDS: buPROPion HCl XL 300 MG TAB.ER.24H PO (09:39)
[2022-05-16] MEDS: Thiamine HCL 100 MG TABLET PO (09:39)
[2022-05-16 09:50] VITALS: BP 146/81; PULSE 55; RESP 16; TEMP 36.8; O2SAT 96
--- NOTE | 2022-05-16 10:24 | PC.NURSE ---
Pt medicated per mar with oxy, pt appears to be more comfortable at this time, no longer walking hunched over. States the med has been helpful, pain down from 10 to 8. Plan for admit today to [facility].
[2022-05-16] MEDS: polyethylene glycoL 3350 17 GM POWD.PACK PO (11:01)
[2022-05-16] MEDS: NaPROXEN 500 MG TABLET PO (12:15)
[2022-05-16] MEDS: Tamsulosin HCL 0.4 MG CAPSULE PO (12:15)
--- NOTE | 2022-05-16 13:12 | PC.NURSE ---
Pt medicated with PRN pain med. Pt provided with multiple cartons of juice and encouraged to increase his PO fluid intake to help flush the stone through. Pt verbalized understanding.
[2022-05-16 15:29] VITALS: BP 147/83; PULSE 57; RESP 18; TEMP 36.6; O2SAT 96
[2022-05-16 15:30] VITALS: BMI 23.6
--- NOTE | 2022-05-16 16:30 | PC.NURSE ---
Brian was admitted to M3 at 1515 from [facility] on CV for treatment of depression with suicidal ideation. He signed a three day notice upon arrival stating, I have to move out of my apartment this week. I can't live there and sleep in the same bed my just in Precipitants of admission include of his 05/06/22 and deaths of his mother and son also within the past year. Patient states he feels 'like the grim reaper , is very depressed and has SI with no plan. Although he has had CAH in the past he denies them at present. Brian is alert, fully oriented, pleasant and cooperative with admission assessment. Mood is depressed. Affect is sad and anxious. Thought Process linear and organized. He denies Ideation, plan or intent to harm self or others at present Appetite is poor. He has lost > 20 lbs in the last 4 weeks. Ensure orderd with each meal. Sleep is poor. Focus is notably good. Brian has had substance issues in the past with heroin but denies use x the last 3 years. I recovered with the help of vivitrol He has been using marijuana to help with sleep. Medical Issues?include current acute (3) bilateral non obstructive renal calculi. Patient reports 10/10 pain on current pain mgmt regimen. Dr Aranda informed Pt's only physical complaint is 10/10 right flank pain radiating to back and groin prsumably from the renal calculi. Brian is placed on q 15 minute Safety Checks
[2022-05-16] MEDS: Acetaminophen 325 MG TABLET 650 MG PO (17:00)
[2022-05-16] MEDS: Ketorolac Tromethamine 30 MG/ML VIAL IM (19:42)
--- NOTE | 2022-05-16 19:46 | P.EN_ITS ---
Event Note Date of Service: 05/16/22 Event Note: This is a 47-year-old male with but in history of mood disorder, essential hypertension, opiate use disorder who presented to the emergency department for evaluation of worsening depression and intermittent right-sided flank pain. Patient states he does have a history of kidney stone in the pain feels similar to it. It radiates down to his right groin. Patient was admitted to psych for worsening depression and hospitalist team contracted foot evaluation of right flank pain. Patient states he is able to tolerate po intake and is without any episodes of emesis. Does have mild intermittent nausea. No CVA tenderness on abdominal examination. No guarding, no rigidity, no rebound tenderness. Patient is hemodynamically stable. Reviewed patient's CT scan on admission, 5 mm stone without hydronephrosis. Dr. Headley chart-reviewed the patient and increased o xycodone dosage and consulted Urology, prior to my evaluation. Agree with both. Initiating ketorolac p.r.n. and Zofran p.r.n.. Maintain adequte po intake. Also on flomax. Time Spent With Patient Time: Total time managing care of this patient today ____ minutes.
[2022-05-16 19:48] VITALS: BP 147/80; PULSE 80; RESP 16; TEMP 37.1; O2SAT 97
[2022-05-16] MEDS: traZODone HCL 100 MG TABLET 200 MG PO (20:02)
[2022-05-16] MEDS: hydrOXYzine HCL 50 MG TABLET 100 MG PO (20:02)
[2022-05-16] MEDS: cloNIDine HCL 0.1 MG TABLET 0.3 MG PO (20:03)
[2022-05-16] MEDS: oxyCODONE HCl Immed Release 5 MG TABLET 7.5 MG PO (20:03)
[2022-05-16] MEDS: traZODone HCL 50 MG TABLET PO ×2 (20:14→22:08)
[2022-05-16] MEDS: QUEtiapine Fumarate 25 MG TABLET PO (22:08)
[2022-05-16] MEDS: Ondansetron ODT 4 MG TAB.RAPDIS TRANSLINGU (22:08)
[2022-05-17] MEDS: oxyCODONE HCl Immed Release 5 MG TABLET 7.5 MG PO ×6 (00:07→23:19)
[2022-05-17] MEDS: Ondansetron ODT 4 MG TAB.RAPDIS TRANSLINGU ×2 (03:41→09:13)
[2022-05-17] MEDS: QUEtiapine Fumarate 25 MG TABLET PO (05:30)
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
[2022-05-17 08:38] LABS: MANUAL DIFF FLAG NO
[2022-05-17 08:41] LABS: Basophils Absolute Auto 0.1 X10*3/uL (0.0-0.2); Eosinophils Absolute Auto 0.1 X10*3/uL (0.0-0.4); Hematocrit 39.7 % (42.0-52.0); Hemoglobin 13.2 g/dl (14.0-18.0); Imm Gran Abs Auto 0.01 X10*3/uL (0.00-0.03); Imm Gran Pct Auto 0.1 % (0.0-0.4); Lymphocytes Absolute Auto 3.8 X10*3/uL (1.2-4.9); Lymphocytes Percent Auto 54.9 % (20-40); Mean Corpuscular HGB Conc 33.2 g/dl (31.0-36.0); Mean Corpuscular Hemoglobin 29.5 pg (27.0-33.0); Mean Corpuscular Volume 88.8 fL (80.0-98.0); Mean Platelet Volume 10.6 fL (9.4-12.4); Monocytes Absolute Auto 0.5 X10*3/uL (0.1-1.2); Monocytes Percent Auto 7.8 % (2-11); Neutrophils Absolute Auto 2.4 x10*3/uL (2.0-8.3); Neutrophils Percent Auto 34.2 % (45-73); Platelet Count 234 X10*3/uL (160-400); Red Blood Count 4.47 X10*6/uL (4.60-5.80); Red Cell Distribution Width 15.3 % (11.0-16.0); White Blood Count 6.9 X10*3/uL (4.8-10.8)
[2022-05-17 09:00] VITALS: BP 106/63; PULSE 52; RESP 16; TEMP 36.6; O2SAT 97
[2022-05-17] MEDS: busPIRone HCl 5 MG TABLET PO ×2 (09:13→21:30)
[2022-05-17] MEDS: Thiamine HCL 100 MG TABLET PO (09:14)
[2022-05-17 09:37] LABS: Alanine Aminotransferase 9 U/L (0-40); Alkaline Phosphatase 54 U/L (39-117); Anion Gap 13 (12-20); Aspartate Amino Transferase 16 U/L (5-37); Bilirubin Total 0.5 mg/dL (0.0-1.0); Blood Urea Nitrogen 21 mg/dL (9-16); Calcium 9.3 mg/dL (8.4-10.2); Carbon Dioxide 27 mmol/L (22-29); Chloride 105 mmol/L (96-108); Cholesterol 162 mg/dL; Estimated Glomerular Filt Rate 58; Glucose Fasting 90 mg/dL (60-99); HDL Cholesterol 32 mg/dL; LDL Cholesterol Calculated 108 mg/dl; Potassium 5.1 mmol/L (3.3-5.1); Sodium 140 mmol/L (135-145); Thyroid Stimulating Hormone 1.35 uIU/mL (0.32-4.0); Total Protein 6.7 g/dL (6.5-8.0); Triglycerides 114 mg/dL
[2022-05-17] MEDS: buPROPion HCl XL 300 MG TAB.ER.24H PO (09:42)
[2022-05-17] MEDS: Tamsulosin HCL 0.4 MG CAPSULE PO (09:43)
[2022-05-17] MEDS: Nicotine 21 MG PATCH.TD24 TRANSDERMA (09:44)
[2022-05-17] MEDS: Ketorolac Tromethamine 30 MG/ML VIAL IM ×2 (10:49→19:45)
[2022-05-17 12:57] VITALS: BP 88/52; PULSE 55; O2SAT 96
[2022-05-17] MEDS: polyethylene glycoL 3350 17 GM POWD.PACK PO (15:51)
[2022-05-17 21:20] VITALS: BP 113/66; PULSE 52; RESP 16; TEMP 36.6; O2SAT 96
[2022-05-17] MEDS: traZODone HCL 100 MG TABLET 200 MG PO (21:30)
[2022-05-17] MEDS: cloNIDine HCL 0.1 MG TABLET 0.3 MG PO (21:31)
--- NOTE | 2022-05-17 21:33 | PC.NURSE ---
Patient's BP was 113/66 with a HR of 52, Dr. Aranda told this nurse to give pt only 0.1 mg clonidine instead of scheduled 0.3mg clonidine.
[2022-05-17] MEDS: Acetaminophen 325 MG TABLET 650 MG PO (23:18)
[2022-05-17] MEDS: hydrOXYzine HCL 50 MG TABLET 100 MG PO (23:18)
[2022-05-18] MEDS: oxyCODONE HCl Immed Release 5 MG TABLET 7.5 MG PO ×4 (03:38→20:24)
[2022-05-18] MEDS: QUEtiapine Fumarate 25 MG TABLET PO (03:39)
[2022-05-18] MEDS: Acetaminophen 325 MG TABLET 650 MG PO ×2 (05:43→20:24)
[2022-05-18 11:00] VITALS: BP 128/76; PULSE 53; TEMP 36.7; O2SAT 95
[2022-05-18] MEDS: Tamsulosin HCL 0.4 MG CAPSULE PO (11:34)
[2022-05-18] MEDS: buPROPion HCl XL 300 MG TAB.ER.24H PO (11:34)
[2022-05-18] MEDS: busPIRone HCl 5 MG TABLET PO (11:35)
[2022-05-18] MEDS: Thiamine HCL 100 MG TABLET PO (11:35)
[2022-05-18] MEDS: Nicotine 21 MG PATCH.TD24 TRANSDERMA (11:36)
[2022-05-18] MEDS: polyethylene glycoL 3350 17 GM POWD.PACK PO (11:37)
[2022-05-18] MEDS: Ketorolac Tromethamine 30 MG/ML VIAL IM (12:15)
[2022-05-18] MEDS: Multivitamin TABLET 1 TAB PO (12:26)
--- NOTE | 2022-05-18 14:00 | PC.NURSE ---
Spoke with Jovan from Urology, she stated if pt does not pass stone by tonight he will have surgery in the AM. Orders placed for pt to be NPO after midnight, pt is aware. RN placed hat in pt's bathroom to use for urination & to determine if stones are in urine.
[2022-05-18] MEDS: Ondansetron ODT 4 MG TAB.RAPDIS 8 MG TRANSLINGU (16:05)
--- NOTE | 2022-05-18 17:07 | HO.PSYCHPN ---
Subjective Subjective Date of Service: 05/18/22 Reason For Visit: depression Interim History: pt limping appearing to be in pain. states he presented for kidney stones but screened positive for depression. he lo0st his a couple weeks ago. son last summer. states he has had zero appetite the pas 1.5 months or so, ever since his became symptomatic from her cancer. c/o insomnia as well, seroquel 50 started at HS. urology consulted, plan is currently for surgery tomorrow to address kidney stone definitively. per staff, anx/dep 10. denies SI/HI/AVH however. taking oxycodone PRN kidney stone pain. Mental Status Exam Mental Status Exam Narrative: pt is alert, oriented and pleasant. Normal speech. Moderate eye contact. Affect is appropriate and subdued, tearful when discussing his . Moderate anxiety present. No signs of psychosis. no SI/HI/AVH expressed. Cognitively is intact. Judgment is intact Diagnostics Vital Signs (24Hr): Vital Signs - 24 hr 05/17/22 21:20 05/18/22 11:00 Temperature 97.9 F 98.1 F Pulse Rate 52 53 Respiratory Rate 16 Blood Pressure 113/66 128/76 Pulse Oximetry 96 95 Oxygen Delivery Method Room Air BMI result Body Mass Index 23.6 Labs 05/17/22 07:53 05/17/22 07:53 Labs: Laboratory Results - last 48 hr 05/17/22 05/17/22 07:53 07:53 WBC 6.9 RBC 4.47 L Hgb 13.2 L Hct 39.7 L MCV 88.8 MCH 29.5 MCHC 33.2 RDW 15.3 Plt Count 234 MPV 10.6 Immature Gran % (Auto) 0.1 Neut % (Auto) 34.2 L Lymph % (Auto) 54.9 H [place] % (Auto) 7.8 Eos % (Auto) 2.0 Baso % (Auto) 1.0 Lymph # (Auto) 3.8 [place] # (Auto) 0.5 Eos # (Auto) 0.1 Baso # (Auto) 0.1 Abs Immat Gran (auto) 0.01 Absolute Neuts (auto) 2.4 Absolute Nucleated RBC 0.000 Nucleated RBC % (auto) 0.0 Sodium 140 Potassium 5.1 D Chloride 105 Carbon Dioxide 27 Anion Gap 13 BUN 21 H Creatinine 1.32 Estim Creat Clear Calc 72.0 Estimated GFR 58 Fasting Glucose 90 Calcium 9.3 Total Bilirubin 0.5 AST 16 ALT 9 Alkaline Phosphatase 54 Total Protein 6.7 Albumin 4.0 Triglycerides 114 Cholesterol 162 LDL Cholesterol, Calc 108 HDL Cholesterol 32 TSH 1.35 Imaging Radiology Impressions: ITS Impressions Abdomen/Pelvis CT 05/15/22 16:23 IMPRESSION: 5 mm right distal ureteral calculus results in mild asymmetric right hydroureter but no hydronephrosis. Additional tiny nonobstructing bilateral renal calculi are present. Medications Medications Current Medications Acetaminophen (Acetaminophen 325 Mg Tablet) 650 mg PO Q6H PRN PRN Reason: Headache/Pain Mild Scale (1-3) Last Admin: 05/18/22 05:43 Dose: 650 mg Al Hydroxide/Mg Hydroxide (Magnesium Hydrox/Alum Hydrox 30 Ml Oral.Susp) 30 ml PO Q6H PRN PRN Reason: Heartburn/Nausea Amlodipine Besylate (Amlodipine Besylate 10 Mg Tablet) 10 mg PO DAILY [facility]; Protocol Last Admin: 05/18/22 11:32 Dose: Not Given Bupropion HCl (Bupropion Hcl Xl 300 Mg Tab.Er.24h) 300 mg PO DAILY [facility] Last Admin: 05/18/22 11:34 Dose: 300 mg Clonidine HCl (Clonidine Hcl 0.1 Mg Tablet) 0.1 mg PO BID PRN; Protocol PRN Reason: Anxiety Clonidine HCl (Clonidine Hcl 0.1 Mg Tablet) 0.3 mg PO BEDTIME [facility]; Protocol Last Admin: 05/17/22 21:31 Dose: 0.1 mg Hydroxyzine HCl (Hydroxyzine Hcl 50 Mg Tablet) 100 mg PO BID PRN PRN Reason: anxiety Last Admin: 05/17/22 23:18 Dose: 100 mg Hydroxyzine HCl (Hydroxyzine Hcl 25 Mg Tablet) 25 mg PO Q6H PRN PRN Reason: Anxiety Ketorolac Tromethamine (Ketorolac Tromethamine 30 Mg/Ml Vial) 30 mg IM Q6H PRN PRN Reason: Pain, Moderate (Pain Scale 4-6 Stop: 05/21/22 19:15 Last Admin: 05/18/22 12:15 Dose: 30 mg Magnesium Hydroxide (Milk Of Magnesia 30 Ml Oral.Susp) 30 ml PO DAILY PRN PRN Reason: Constipation Multivitamins/Vitamin C (Multivitamin Tablet) 1 tab PO DAILY [facility] Last Admin: 05/18/22 12:26 Dose: 1 tab Nicotine (Nicotine 21 Mg Patch.Td24) 21 mg TRANSDERMA DAILY [facility] Last Admin: 05/18/22 11:36 Dose: 21 mg Ondansetron HCl (Ondansetron Odt 4 Mg Tab.Rapdis) 8 mg TRANSLINGU Q6H PRN PRN Reason: nausea Last Admin: 05/18/22 16:05 Dose: 8 mg Oxycodone HCl (Oxycodone Hcl Immed Release 5 Mg Tablet) 7.5 mg PO Q4H PRN PRN Reason: Pain, Moderate (Pain Scale 4-6 Last Admin: 05/18/22 14:47 Dose: 7.5 mg Polyethylene Glycol (Polyethylene Glycol 3350 17 Gm Powd.Pack) 17 gm PO BID [facility] Last Admin: 05/18/22 11:37 Dose: 17 gm Prednisone (Prednisone 20 Mg Tablet) 20 mg PO ONCE [facility] Stop: 05/20/22 23:55 Quetiapine Fumarate (Quetiapine Fumarate 25 Mg Tablet) 25 mg PO Q4H PRN PRN Reason: anxiety/restlessness Last Admin: 05/18/22 03:39 Dose: 25 mg Quetiapine Fumarate (Quetiapine Fumarate 50 Mg Tablet) 50 mg PO BEDTIME NEIDA Quetiapine Fumarate (Quetiapine Fumarate 50 Mg Tablet) 50 mg PO BEDTIME PRN PRN Reason: Insomnia Tamsulosin HCl (Tamsulosin Hcl 0.4 Mg Capsule) 0.4 mg PO ONCE [facility] Stop: 05/22/22 23:55 Tamsulosin HCl (Tamsulosin Hcl 0.4 Mg Capsule) 0.4 mg PO DAILY [facility] Last Admin: 05/18/22 11:34 Dose: 0.4 mg Thiamine HCl (Thiamine Hcl 100 Mg Tablet) 100 mg PO DAILY [facility] Last Admin: 05/18/22 11:35 Dose: 100 mg Trazodone HCl (Trazodone Hcl 100 Mg Tablet) 200 mg PO BEDTIME [facility] Last Admin: 05/17/22 21:30 Dose: 200 mg Allergies Allergies Allergy/AdvReac Type Severity Reaction Status Date / Time No Known Allergies Allergy Verified 05/15/22 12:41 [No Known Allergies*] Assessment & Plan Assessment & Plan (1) Major depression, recurrent: Status: Acute Code(s): F33.9 - Major depressive disorder, recurrent, unspecified Plan 05/17: Brian was admitted for safety and stabilization. He meets criteria for inpatient level of care. Current medications including Wellbutrin, Seroquel and hydroxyzine were continued. I added BuSpar 5 mg b.i.d. to be increased over the next several days. Side effects with regards to dizziness discussed. Outpatient referrals to be made. He will meet with his treatment team on 05/18/202205/18: buspar DCed, seroquel 50 at HS added. pt will take seroquel 25 PRNs during the day for anxiety. urological procedure tomorrow to address renal calculus; NPO after MN tonight. Patient educated on: diagnosis and medication risk/benefits Reason for contiued inpatient stay Substantial Risk for: harm to self and rapid decompensation Time Spent With Patient Time: Total time managing care of this patient today __35__ minutes.
[2022-05-18 20:20] VITALS: BP 117/67; PULSE 54; RESP 16; TEMP 36.6; O2SAT 96
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
[2022-05-18] MEDS: cloNIDine HCL 0.1 MG TABLET 0.3 MG PO (21:44)
[2022-05-18] MEDS: traZODone HCL 100 MG TABLET 200 MG PO (21:44)
[2022-05-18] MEDS: QUEtiapine Fumarate 50 MG TABLET PO (21:44)
[2022-05-18] MEDS: hydrOXYzine HCL 50 MG TABLET 100 MG PO (21:46)
[2022-05-19] MEDS: oxyCODONE HCl Immed Release 5 MG TABLET 7.5 MG PO ×4 (00:43→22:01)
[2022-05-19] MEDS: Acetaminophen 325 MG TABLET 650 MG PO ×2 (04:48→22:03)
[2022-05-19 08:35] VITALS: BP 130/72; PULSE 74; RESP 18; TEMP 36.4; O2SAT 97
[2022-05-19] MEDS: amLODIPine Besylate 10 MG TABLET PO (09:41)
--- NOTE | 2022-05-19 12:47 | PC.NURSE ---
this RN @ 12:30 went to pickup pt, informed that pt was already picked up by security & nurse.
--- NOTE | 2022-05-19 13:20 | MHC.SHP ---
Pre-Procedural Eval Section A Date of Service: 05/19/22 Section B Chief Complaint: right uretera stone Allergies: Allergies Allergy/AdvReac Type Severity Reaction Status Date / Time No Known Allergies Allergy Verified 05/19/22 12:53 [No Known Allergies*] Plan Diagnosis/Plan: Unchanged I have reviewed the history and physical and performed a pertinent physical examination on my patient. No changes have occurred unless specified. Plan for Cystoscopy, right ureteroscopy, possible laser lithotripsy, possible ureteral stent. Risks discussed included but not limited to, possible need to repeat procedure if stone is not completely fragmented, Irritative voiding symptoms, bladder spasms, urgency, blood in urine. Time Spent With Patient Time: Total time managing care of this patient today ____ minutes.
--- NOTE | 2022-05-19 15:17 | P.PNPSI_ITS ---
Subjective Subjective Date of Service: 05/19/22 Reason For Visit: right uretera stone Interim History: calm, cooperative. limping in pain. tearful, somewhat labile. procedure today discussed, pt reports he has been NPO since MN. agree to see how he feels post- procedure and make a plan accordingly in the next day or two. per staff, 3-day up tomorrow; rescinded 3-day notice. denies SI/HI. c/o pain. surgery 1 p.m. Mental Status Exam Mental Status Exam Narrative: pt is alert, oriented and pleasant. Normal speech. Moderate eye contact. Affect is appropriate and subdued, tearful when discussing his . Moderate anxiety and depression present. No signs of psychosis. no SI/HI/AVH expressed. Cognitively is intact. Judgment is intact Diagnostics Vital Signs (24Hr): Vital Signs - 24 hr 05/18/22 20:20 05/19/22 08:35 Temperature 97.9 F 97.6 F Pulse Rate 54 74 Respiratory Rate 16 18 Blood Pressure 117/67 130/72 Pulse Oximetry 96 97 Oxygen Delivery Method Room Air Room Air BMI result Body Mass Index 23.6 Labs 05/17/22 07:53 05/17/22 07:53 Imaging Radiology Impressions: ITS Impressions Abdomen/Pelvis CT 05/15/22 16:23 IMPRESSION: 5 mm right distal ureteral calculus results in mild asymmetric right hydroureter but no hydronephrosis. Additional tiny nonobstructing bilateral renal calculi are present. Medications Medications Current Medications Acetaminophen (Acetaminophen 325 Mg Tablet) 650 mg PO Q6H PRN PRN Reason: Headache/Pain Mild Scale (1-3) Last Admin: 05/19/22 04:48 Dose: 650 mg Al Hydroxide/Mg Hydroxide (Magnesium Hydrox/Alum Hydrox 30 Ml Oral.Susp) 30 ml PO Q6H PRN PRN Reason: Heartburn/Nausea Amlodipine Besylate (Amlodipine Besylate 10 Mg Tablet) 10 mg PO DAILY [facility]; Protocol Last Admin: 05/19/22 09:41 Dose: 10 mg Bupropion HCl (Bupropion Hcl Xl 300 Mg Tab.Er.24h) 300 mg PO DAILY [facility] Last Admin: 05/19/22 14:30 Dose: Not Given Clonidine HCl (Clonidine Hcl 0.1 Mg Tablet) 0.1 mg PO BID PRN; Protocol PRN Reason: Anxiety Clonidine HCl (Clonidine Hcl 0.1 Mg Tablet) 0.3 mg PO BEDTIME [facility]; Protocol Last Admin: 05/18/22 21:44 Dose: 0.3 mg Hydroxyzine HCl (Hydroxyzine Hcl 50 Mg Tablet) 100 mg PO BID PRN PRN Reason: anxiety Last Admin: 05/18/22 21:46 Dose: 100 mg Hydroxyzine HCl (Hydroxyzine Hcl 25 Mg Tablet) 25 mg PO Q6H PRN PRN Reason: Anxiety Ketorolac Tromethamine (Ketorolac Tromethamine 30 Mg/Ml Vial) 30 mg IM Q6H PRN PRN Reason: Pain, Moderate (Pain Scale 4-6 Stop: 05/21/22 19:15 Last Admin: 05/18/22 12:15 Dose: 30 mg Magnesium Hydroxide (Milk Of Magnesia 30 Ml Oral.Susp) 30 ml PO DAILY PRN PRN Reason: Constipation Multivitamins/Vitamin C (Multivitamin Tablet) 1 tab PO DAILY [facility] Last Admin: 05/19/22 14:31 Dose: Not Given Nicotine (Nicotine 21 Mg Patch.Td24) 21 mg TRANSDERMA DAILY [facility] Last Admin: 05/19/22 14:31 Dose: Not Given Ondansetron HCl (Ondansetron Odt 4 Mg Tab.Rapdis) 8 mg TRANSLINGU Q6H PRN PRN Reason: nausea Last Admin: 05/18/22 16:05 Dose: 8 mg Oxycodone HCl (Oxycodone Hcl Immed Release 5 Mg Tablet) 7.5 mg PO Q4H PRN PRN Reason: Pain, Moderate (Pain Scale 4-6 Last Admin: 05/19/22 09:42 Dose: 7.5 mg Polyethylene Glycol (Polyethylene Glycol 3350 17 Gm Powd.Pack) 17 gm PO BID [facility] Last Admin: 05/19/22 14:32 Dose: Not Given Prednisone (Prednisone 20 Mg Tablet) 20 mg PO ONCE [facility] Stop: 05/20/22 23:55 Quetiapine Fumarate (Quetiapine Fumarate 25 Mg Tablet) 25 mg PO Q4H PRN PRN Reason: anxiety/restlessness Last Admin: 05/18/22 03:39 Dose: 25 mg Quetiapine Fumarate (Quetiapine Fumarate 50 Mg Tablet) 50 mg PO BEDTIME [facility] Last Admin: 05/18/22 21:44 Dose: 50 mg Quetiapine Fumarate (Quetiapine Fumarate 50 Mg Tablet) 50 mg PO BEDTIME PRN PRN Reason: Insomnia Tamsulosin HCl (Tamsulosin Hcl 0.4 Mg Capsule) 0.4 mg PO ONCE [facility] Stop: 05/22/22 23:55 Tamsulosin HCl (Tamsulosin Hcl 0.4 Mg Capsule) 0.4 mg PO DAILY [facility] Last Admin: 05/19/22 14:32 Dose: Not Given Thiamine HCl (Thiamine Hcl 100 Mg Tablet) 100 mg PO DAILY [facility] Last Admin: 05/19/22 14:33 Dose: Not Given Trazodone HCl (Trazodone Hcl 100 Mg Tablet) 200 mg PO BEDTIME [facility] Last Admin: 05/18/22 21:44 Dose: 200 mg Allergies Allergies Allergy/AdvReac Type Severity Reaction Status Date / Time No Known Allergies Allergy Verified 05/19/22 12:53 [No Known Allergies*] Assessment & Plan Assessment & Plan (1) Right ureteral stone: Status: Acute Code(s): N20.1 - Calculus of ureter Assessment and Plan: per 05/18 urology note: Imaging reviewed BUN-21 CREAT- 1.32 Continue Flomax Continue PRN oxycodone for pain Discussed importance of increasing/maintaining adequate PO intake Discussed with nursing to strain urine and or have patient utilize urinal to further assess if stone has passed If patient continues with pain and has not been noted to pass stone plan for OR tomorrow for Cystoscopy, ureteroscopy, retrograde, basketing and possible stent placement on the right side with Dr. Murcia. Case discussed. NPO after midnight. (2) Flank pain: Status: Acute Code(s): R10.9 - Unspecified abdominal pain (3) Major depression, recurrent: Status: Acute Code(s): F33.9 - Major depressive disorder, recurrent, unspecified Plan 05/17:? Brian was admitted for safety and stabilization.? He meets criteria for inpatient level of care.? Current medications including Wellbutrin, Seroquel and hydroxyzine were continued.? I added BuSpar 5 mg b.i.d. to be increased over the next several days.? Side effects with regards to dizziness discussed.? Outpatient referrals to be made.? He will meet with his treatment team on 05/18/202205/18:? buspar DCed, seroquel 50 at HS added.? pt will take seroquel 25 PRNs during the day for anxiety.? urological procedure tomorrow to address renal calculus; NPO after MN tonight. 05/19: no changes to medications regimen. procedure 1 pm for definitive Tx of kidney stone. Reason for contiued inpatient stay Substantial Risk for: harm to self, inability to function and rapid decompensation Time Spent With Patient Time: Total time managing care of this patient today __25__ minutes.
--- NOTE | 2022-05-19 17:32 | PC.NURSE ---
Pt transferred back to M3 from PACU (renal calculi was lasered and a stent was placed). Per [employer] ASSISTANT, bloody urine is normal. If pt experiences increased bleeding, clots, or inability to urinate, RN will need to reach out to MD. PACU extension is [phone].
--- NOTE | 2022-05-19 18:17 | PC.NURSE ---
Patient visible in milieu, alert, oriented. Napped upon return from PACU. Reports pain as #10, states he was medicated following procedure. VSS, 139/77, 53,97.9,94RA 18RR. Reports blood tinged urine upon voiding. Reports very small clots noticed. Informed to save next urine for nurse to view, patient reported understanding. Reports eating 1/2 grilled cheese and drank juice for dinner.
[2022-05-19] MEDS: QUEtiapine Fumarate 50 MG TABLET PO ×2 (22:05→23:24)
[2022-05-19 22:09] VITALS: BP 137/70; PULSE 50; TEMP 36.7; O2SAT 93
[2022-05-19] MEDS: hydrOXYzine HCL 50 MG TABLET 100 MG PO (23:23)
[2022-05-20] MEDS: oxyCODONE HCl Immed Release 5 MG TABLET 7.5 MG PO ×5 (02:01→22:06)
[2022-05-20] MEDS: Ketorolac Tromethamine 30 MG/ML VIAL IM (04:39)
[2022-05-20] MEDS: Acetaminophen 325 MG TABLET 650 MG PO (04:39)
[2022-05-20] MEDS: Nicotine 21 MG PATCH.TD24 TRANSDERMA (09:13)
[2022-05-20 09:20] VITALS: BP 126/83; PULSE 52; RESP 18; TEMP 36.3; O2SAT 95
[2022-05-20] MEDS: buPROPion HCl XL 300 MG TAB.ER.24H PO (10:22)
[2022-05-20] MEDS: amLODIPine Besylate 10 MG TABLET PO (10:23)
[2022-05-20] MEDS: Multivitamin TABLET 1 TAB PO (10:23)
[2022-05-20] MEDS: Tamsulosin HCL 0.4 MG CAPSULE PO (10:23)
[2022-05-20] MEDS: Thiamine HCL 100 MG TABLET PO (10:23)
--- NOTE | 2022-05-20 14:37 | HO.PSYCHPN ---
Subjective Subjective Date of Service: 05/20/22 Reason For Visit: right uretera stone Interim History: pt seen in his room as well as up and about the unit. still favoring his side, limping, appearing in pain. c/o pain, hematuria. reports anx/dep, no appetite. per staff, completed lithotripsy yesterday. pleasant after procedure. up several times overnight 2/2 pain. c/o dysuria, hematuria, passing a clot. per discussion with urology PA, pt will have pain and hematuria as long as the stent remains in place. he will need to return in one week to have the stent removed. PA recommended ditropan for spasm for now. Mental Status Exam Mental Status Exam Narrative: pt is alert, oriented and pleasant. Normal speech. Moderate eye contact. Affect is appropriate and subdued. Moderate anxiety and depression present. No signs of psychosis. no SI/HI/AVH expressed. Cognitively is intact. Judgment is intact Diagnostics Vital Signs (24Hr): Vital Signs - 24 hr 05/19/22 22:09 05/20/22 09:20 Temperature 98.1 F 97.3 F Pulse Rate 50 52 Respiratory Rate 18 Blood Pressure 137/70 126/83 Pulse Oximetry 93 95 Oxygen Delivery Method Room Air Room Air BMI result Body Mass Index 23.6 Labs 05/17/22 07:53 05/17/22 07:53 Imaging Radiology Impressions: ITS Impressions Abdomen/Pelvis CT 05/15/22 16:23 IMPRESSION: 5 mm right distal ureteral calculus results in mild asymmetric right hydroureter but no hydronephrosis. Additional tiny nonobstructing bilateral renal calculi are present. Guidance Fluoroscopy 05/19/22 14:52 IMPRESSION: Fluoroscopy provided for the operating room. Please see operative report for additional information. Medications Medications Current Medications Acetaminophen (Acetaminophen 325 Mg Tablet) 650 mg PO Q6H PRN PRN Reason: Headache/Pain Mild Scale (1-3) Last Admin: 05/20/22 04:39 Dose: 650 mg Al Hydroxide/Mg Hydroxide (Magnesium Hydrox/Alum Hydrox 30 Ml Oral.Susp) 30 ml PO Q6H PRN PRN Reason: Heartburn/Nausea Amlodipine Besylate (Amlodipine Besylate 10 Mg Tablet) 10 mg PO DAILY [facility]; Protocol Last Admin: 05/20/22 10:23 Dose: 10 mg Bupropion HCl (Bupropion Hcl Xl 300 Mg Tab.Er.24h) 300 mg PO DAILY [facility] Last Admin: 05/20/22 10:22 Dose: 300 mg Clonidine HCl (Clonidine Hcl 0.1 Mg Tablet) 0.1 mg PO BID PRN; Protocol PRN Reason: Anxiety Clonidine HCl (Clonidine Hcl 0.1 Mg Tablet) 0.3 mg PO BEDTIME [facility]; Protocol Last Admin: 05/19/22 22:06 Dose: Not Given Hydroxyzine HCl (Hydroxyzine Hcl 50 Mg Tablet) 100 mg PO BID PRN PRN Reason: anxiety Last Admin: 05/19/22 23:23 Dose: 100 mg Hydroxyzine HCl (Hydroxyzine Hcl 25 Mg Tablet) 25 mg PO Q6H PRN PRN Reason: Anxiety Ketorolac Tromethamine (Ketorolac Tromethamine 30 Mg/Ml Vial) 30 mg IM Q6H PRN PRN Reason: Pain, Moderate (Pain Scale 4-6 Stop: 05/21/22 19:15 Last Admin: 05/20/22 04:39 Dose: 30 mg Magnesium Hydroxide (Milk Of Magnesia 30 Ml Oral.Susp) 30 ml PO DAILY PRN PRN Reason: Constipation Multivitamins/Vitamin C (Multivitamin Tablet) 1 tab PO DAILY [facility] Last Admin: 05/20/22 10:23 Dose: 1 tab Nicotine (Nicotine 21 Mg Patch.Td24) 21 mg TRANSDERMA DAILY [facility] Last Admin: 05/20/22 09:13 Dose: 21 mg Ondansetron HCl (Ondansetron Odt 4 Mg Tab.Rapdis) 8 mg TRANSLINGU Q6H PRN PRN Reason: nausea Last Admin: 05/18/22 16:05 Dose: 8 mg Oxybutynin Chloride (Oxybutynin Chloride Er 5 Mg Tab.Er.24) 5 mg PO TID PRN PRN Reason: ureteral spasm Oxycodone HCl (Oxycodone Hcl Immed Release 5 Mg Tablet) 7.5 mg PO Q4H PRN PRN Reason: Pain, Moderate (Pain Scale 4-6 Last Admin: 05/20/22 13:28 Dose: 7.5 mg Polyethylene Glycol (Polyethylene Glycol 3350 17 Gm Powd.Pack) 17 gm PO BID [facility] Last Admin: 05/20/22 10:23 Dose: Not Given Prednisone (Prednisone 20 Mg Tablet) 20 mg PO ONCE [facility] Stop: 05/20/22 23:55 Quetiapine Fumarate (Quetiapine Fumarate 25 Mg Tablet) 25 mg PO Q4H PRN PRN Reason: anxiety/restlessness Last Admin: 05/18/22 03:39 Dose: 25 mg Quetiapine Fumarate (Quetiapine Fumarate 50 Mg Tablet) 50 mg PO BEDTIME [facility] Last Admin: 05/19/22 22:05 Dose: 50 mg Quetiapine Fumarate (Quetiapine Fumarate 50 Mg Tablet) 50 mg PO BEDTIME PRN PRN Reason: Insomnia Last Admin: 05/19/22 23:24 Dose: 50 mg Tamsulosin HCl (Tamsulosin Hcl 0.4 Mg Capsule) 0.4 mg PO ONCE [facility] Stop: 05/22/22 23:55 Tamsulosin HCl (Tamsulosin Hcl 0.4 Mg Capsule) 0.4 mg PO DAILY [facility] Last Admin: 05/20/22 10:23 Dose: 0.4 mg Thiamine HCl (Thiamine Hcl 100 Mg Tablet) 100 mg PO DAILY [facility] Last Admin: 05/20/22 10:23 Dose: 100 mg Trazodone HCl (Trazodone Hcl 100 Mg Tablet) 200 mg PO BEDTIME [facility] Last Admin: 05/19/22 22:03 Dose: Not Given Allergies Allergies Allergy/AdvReac Type Severity Reaction Status Date / Time No Known Allergies Allergy Verified 05/19/22 12:53 [No Known Allergies*] Assessment & Plan Assessment & Plan (1) Right ureteral stone: Status: Acute Code(s): N20.1 - Calculus of ureter Assessment and Plan: per 05/18 urology note: Imaging reviewed BUN-21 CREAT- 1.32 Continue Flomax Continue PRN oxycodone for pain Discussed importance of increasing/maintaining adequate PO intake Discussed with nursing to strain urine and or have patient utilize urinal to further assess if stone has passed If patient continues with pain and has not been noted to pass stone plan for OR tomorrow for Cystoscopy, ureteroscopy, retrograde, basketing and possible stent placement on the right side with Dr. Murcia. Case discussed. NPO after midnight. (2) Flank pain: Status: Acute Code(s): R10.9 - Unspecified abdominal pain (3) Major depression, recurrent: Status: Acute Code(s): F33.9 - Major depressive disorder, recurrent, unspecified Plan 05/17:? Brian was admitted for safety and stabilization.? He meets criteria for inpatient level of care.? Current medications including Wellbutrin, Seroquel and hydroxyzine were continued.? I added BuSpar 5 mg b.i.d. to be increased over the next several days.? Side effects with regards to dizziness discussed.? Outpatient referrals to be made.? He will meet with his treatment team on 05/18/202205/18:? buspar DCed, seroquel 50 at HS added.? pt will take seroquel 25 PRNs during the day for anxiety.? urological procedure tomorrow to address renal calculus; NPO after MN tonight. 05/19: no changes to medications regimen. procedure 1 pm for definitive Tx of kidney stone. 05/20: ureter stented and stone passed, apparently. remains in pain with dys- and hematuria. per urology PA will need to have stent removed in a week and can expect pain and bleeding until then; they are making an appointment for him. observe for today without making any changes. pt reports his depression and anxiety have not changed since admission. Patient educated on: medical condition Reason for contiued inpatient stay Substantial Risk for: harm to self, inability to function and rapid decompensation Time Spent With Patient Time: Total time managing care of this patient today _25___ minutes.
[2022-05-20] MEDS: cloNIDine HCL 0.1 MG TABLET 0.3 MG PO (20:46)
[2022-05-20 20:47] VITALS: BP 120/75; PULSE 81; RESP 18; TEMP 36.4; O2SAT 93
[2022-05-20] MEDS: QUEtiapine Fumarate 50 MG TABLET PO (20:47)
[2022-05-20] MEDS: traZODone HCL 100 MG TABLET 200 MG PO (20:47)
[2022-05-21] MEDS: Acetaminophen 325 MG TABLET 650 MG PO ×2 (02:14→20:36)
[2022-05-21] MEDS: oxyCODONE HCl Immed Release 5 MG TABLET 7.5 MG PO ×5 (02:14→21:33)
[2022-05-21 07:00] VITALS: BMI 23.5
[2022-05-21 08:25] VITALS: BP 110/70; PULSE 58; RESP 20; TEMP 36.4; O2SAT 96
[2022-05-21] MEDS: Ondansetron ODT 4 MG TAB.RAPDIS 8 MG TRANSLINGU (08:29)
[2022-05-21] MEDS: polyethylene glycoL 3350 17 GM POWD.PACK PO ×2 (08:47→20:35)
[2022-05-21] MEDS: buPROPion HCl XL 300 MG TAB.ER.24H PO (08:47)
[2022-05-21] MEDS: Tamsulosin HCL 0.4 MG CAPSULE PO (08:48)
[2022-05-21] MEDS: Nicotine 21 MG PATCH.TD24 TRANSDERMA (08:49)
--- NOTE | 2022-05-21 09:39 | PC.NURSE ---
On arrival, affect depressed, patient reports he is 'grumpy' because he continues to be in 10/10 right groin/flank pain. Patient also reported nausea, no BM x1 week. Voided approx 100 cc in urinal dark red, no clots. Amlodipine held secondary to p<60. Patient reports he feels the anxiety/depression are not being addressed. Dr. Abdul aware. Offered seroquel, patient declined at this time, stating that he would request it when he felt able to tolerate.
[2022-05-21] MEDS: QUEtiapine Fumarate 25 MG TABLET PO ×2 (11:06→18:11)
--- NOTE | 2022-05-21 14:54 | HO.PSYCHPN ---
Subjective Subjective Date of Service: 05/21/22 Reason For Visit: right uretera stone Interim History: calm and cooperative, but appearing a bit angry and demoralized. upset at his perception his mental health is being unaddressed at the moment. summarizes interaction with urology PA - he can expect pain and blood until stent removed next week. discuss mental health regimen, he c/o AH start. agrees to increase seroquel at HS to 100 mg and to use seroquel 25 mg PRNs throughout the day. per staff, increase anx/dep. no SI/HI/AVH. anx/dep 02/02. pain 02/02. up x2 overnight. slept ok. stent removal for 05/27/22 at 2:45. Mental Status Exam Mental Status Exam Narrative: pt is alert, oriented and pleasant. Normal speech. Moderate eye contact. Affect is appropriate and subdued. Moderate anxiety and depression present. No signs of psychosis. no SI/HI/AVH expressed. Cognitively is intact. Judgment is intact Diagnostics Vital Signs (24Hr): Vital Signs - 24 hr 05/20/22 20:47 05/21/22 08:25 Temperature 97.5 F 97.6 F Pulse Rate 81 58 Respiratory Rate 18 20 Blood Pressure 120/75 110/70 Pulse Oximetry 93 96 Oxygen Delivery Method Room Air Room Air BMI result Body Mass Index 23.5 Labs 05/17/22 07:53 05/17/22 07:53 Imaging Radiology Impressions: ITS Impressions Abdomen/Pelvis CT 05/15/22 16:23 IMPRESSION: 5 mm right distal ureteral calculus results in mild asymmetric right hydroureter but no hydronephrosis. Additional tiny nonobstructing bilateral renal calculi are present. Guidance Fluoroscopy 05/19/22 14:52 IMPRESSION: Fluoroscopy provided for the operating room. Please see operative report for additional information. Medications Medications Current Medications Acetaminophen (Acetaminophen 325 Mg Tablet) 650 mg PO Q6H PRN PRN Reason: Headache/Pain Mild Scale (1-3) Last Admin: 05/21/22 02:14 Dose: 650 mg Al Hydroxide/Mg Hydroxide (Magnesium Hydrox/Alum Hydrox 30 Ml Oral.Susp) 30 ml PO Q6H PRN PRN Reason: Heartburn/Nausea Amlodipine Besylate (Amlodipine Besylate 10 Mg Tablet) 10 mg PO DAILY [facility]; Protocol Last Admin: 05/21/22 09:34 Dose: Not Given Bisacodyl (Bisacodyl 10 Mg Supp.Rect) 10 mg NC DAILY PRN PRN Reason: Constipation Bupropion HCl (Bupropion Hcl Xl 300 Mg Tab.Er.24h) 300 mg PO DAILY [facility] [place] Last Admin: 05/21/22 08:47 Dose: 300 mg Clonidine HCl (Clonidine Hcl 0.1 Mg Tablet) 0.1 mg PO BID PRN; Protocol PRN Reason: Anxiety Clonidine HCl (Clonidine Hcl 0.1 Mg Tablet) 0.3 mg PO BEDTIME [facility] [place]; Protocol Last Admin: 05/20/22 20:46 Dose: 0.3 mg Hydroxyzine HCl (Hydroxyzine Hcl 50 Mg Tablet) 100 mg PO BID PRN PRN Reason: anxiety Last Admin: 05/19/22 23:23 Dose: 100 mg Hydroxyzine HCl (Hydroxyzine Hcl 25 Mg Tablet) 25 mg PO Q6H PRN PRN Reason: Anxiety Ketorolac Tromethamine (Ketorolac Tromethamine 30 Mg/Ml Vial) 30 mg IM Q6H PRN PRN Reason: Pain, Moderate (Pain Scale 4-6 Stop: 05/21/22 19:15 Last Admin: 05/20/22 04:39 Dose: 30 mg Magnesium Hydroxide (Milk Of Magnesia 30 Ml Oral.Susp) 30 ml PO DAILY PRN PRN Reason: Constipation Multivitamins/Vitamin C (Multivitamin Tablet) 1 tab PO DAILY [facility] [place] Last Admin: 05/21/22 09:34 Dose: Not Given Nicotine (Nicotine 21 Mg Patch.Td24) 21 mg TRANSDERMA DAILY [facility] [place] Last Admin: 05/21/22 08:49 Dose: 21 mg Ondansetron HCl (Ondansetron Odt 4 Mg Tab.Rapdis) 8 mg TRANSLINGU Q6H PRN PRN Reason: nausea Last Admin: 05/21/22 08:29 Dose: 8 mg Oxybutynin Chloride (Oxybutynin Chloride Er 5 Mg Tab.Er.24) 5 mg PO TID PRN PRN Reason: ureteral spasm Last Admin: 05/21/22 08:47 Dose: 5 mg Oxycodone HCl (Oxycodone Hcl Immed Release 5 Mg Tablet) 7.5 mg PO Q4H PRN PRN Reason: Pain, Moderate (Pain Scale 4-6 Last Admin: 01/26/23 11:36 Dose: 7.5 mg Polyethylene Glycol (Polyethylene Glycol 3350 17 Gm Powd.Pack) 17 gm PO BID [facility] [place] Last Admin: 05/21/22 08:47 Dose: 17 gm Quetiapine Fumarate (Quetiapine Fumarate 25 Mg Tablet) 25 mg PO Q4H PRN PRN Reason: anxiety/restlessness Last Admin: 05/21/22 11:06 Dose: 25 mg Quetiapine Fumarate (Quetiapine Fumarate 50 Mg Tablet) 50 mg PO BEDTIME [facility] [place] Last Admin: 05/20/22 20:47 Dose: 50 mg Quetiapine Fumarate (Quetiapine Fumarate 50 Mg Tablet) 50 mg PO BEDTIME PRN PRN Reason: Insomnia Last Admin: 05/19/22 23:24 Dose: 50 mg Tamsulosin HCl (Tamsulosin Hcl 0.4 Mg Capsule) 0.4 mg PO ONCE [facility] [place] Stop: 05/22/22 23:55 Last Admin: 05/21/22 08:48 Dose: 0.4 mg Tamsulosin HCl (Tamsulosin Hcl 0.4 Mg Capsule) 0.4 mg PO DAILY [facility] Last Admin: 05/21/22 09:35 Dose: Not Given Thiamine HCl (Thiamine Hcl 100 Mg Tablet) 100 mg PO DAILY [facility] Last Admin: 05/21/22 09:35 Dose: Not Given Trazodone HCl (Trazodone Hcl 100 Mg Tablet) 200 mg PO BEDTIME [facility] Last Admin: 05/20/22 20:47 Dose: 200 mg Allergies Allergies Allergy/AdvReac Type Severity Reaction Status Date / Time No Known Allergies Allergy Verified 05/19/22 12:53 [No Known Allergies*] Assessment & Plan Assessment & Plan (1) Right ureteral stone: Status: Acute Code(s): N20.1 - Calculus of ureter Assessment and Plan: per 05/18 urology note: Imaging reviewed BUN-21 CREAT- 1.32 Continue Flomax Continue PRN oxycodone for pain Discussed importance of increasing/maintaining adequate PO intake Discussed with nursing to strain urine and or have patient utilize urinal to further assess if stone has passed If patient continues with pain and has not been noted to pass stone plan for OR tomorrow for Cystoscopy, ureteroscopy, retrograde, basketing and possible stent placement on the right side with Dr. Murcia. Case discussed. NPO after midnight. (2) Flank pain: Status: Acute Code(s): R10.9 - Unspecified abdominal pain (3) Major depression, recurrent: Status: Acute Code(s): F33.9 - Major depressive disorder, recurrent, unspecified Plan 05/17:? Brian was admitted for safety and stabilization.? He meets criteria for inpatient level of care.? Current medications including Wellbutrin, Seroquel and hydroxyzine were continued.? I added BuSpar 5 mg b.i.d. to be increased over the next several days.? Side effects with regards to dizziness discussed.? Outpatient referrals to be made.? He will meet with his treatment team on 05/18/202205/18:? buspar DCed, seroquel 50 at HS added.? pt will take seroquel 25 PRNs during the day for anxiety.? urological procedure tomorrow to address renal calculus; NPO after MN tonight. 05/19: no changes to medications regimen. procedure 1 pm for definitive Tx of kidney stone. 05/20: ureter stented and stone passed, apparently. remains in pain with dys- and hematuria. per urology PA will need to have stent removed in a week and can expect pain and bleeding until then; they are making an appointment for him. observe for today without making any changes. pt reports his depression and anxiety have not changed since admission. 05/21: c/o ongoing depression without relief, anxiety. now starting. agrees to increase HS seroquel to 100 mg, make use of seroquel 25 mg PRNs. stent removal scheduled for 05/27 at 2:45. ongoing pain and bleeding expected to continue through removal of stent. Patient educated on: diagnosis, medication risk/benefits and medical condition Reason for contiued inpatient stay Substantial Risk for: harm to self, inability to function and rapid decompensation Time Spent With Patient Time: Total time managing care of this patient today __25__ minutes.
[2022-05-21 20:22] VITALS: BP 112/62; PULSE 53; RESP 18; TEMP 36.7; O2SAT 94
[2022-05-21] MEDS: QUEtiapine Fumarate 50 MG TABLET PO ×2 (20:36)
[2022-05-21] MEDS: cloNIDine HCL 0.1 MG TABLET 0.3 MG PO (20:37)
[2022-05-21] MEDS: bisacodyL 10 MG SUPP.RECT PR (20:38)
[2022-05-21] MEDS: hydrOXYzine HCL 50 MG TABLET 100 MG PO (20:38)
[2022-05-21] MEDS: traZODone HCL 100 MG TABLET 200 MG PO (20:38)
[2022-05-21] MEDS: Ketorolac Tromethamine 30 MG/ML VIAL IM (23:55)
[2022-05-22] MEDS: oxyCODONE HCl Immed Release 5 MG TABLET 7.5 MG PO ×3 (01:43→10:45)
[2022-05-22] MEDS: hydrOXYzine HCL 25 MG TABLET PO (01:43)
[2022-05-22] MEDS: QUEtiapine Fumarate 25 MG TABLET PO ×2 (01:43→10:44)
[2022-05-22 08:25] VITALS: BP 102/58; PULSE 56; RESP 18; TEMP 36.7; O2SAT 97
[2022-05-22] MEDS: buPROPion HCl XL 300 MG TAB.ER.24H PO (08:28)
[2022-05-22] MEDS: Multivitamin TABLET 1 TAB PO (08:28)
[2022-05-22] MEDS: Thiamine HCL 100 MG TABLET PO (08:28)
[2022-05-22] MEDS: Tamsulosin HCL 0.4 MG CAPSULE PO (08:29)
[2022-05-22] MEDS: Nicotine 21 MG PATCH.TD24 TRANSDERMA (08:29)
[2022-05-22] MEDS: polyethylene glycoL 3350 17 GM POWD.PACK PO ×2 (08:30→20:40)
[2022-05-22] MEDS: LORazepam 1 MG TABLET PO (12:39)
--- NOTE | 2022-05-22 14:59 | P.PNPSI_ITS ---
Subjective Subjective Date of Service: 05/22/22 Reason For Visit: right uretera stone Interim History: initially refusing to speak with MD, accusing MD of not adjusting his medications for depression and anxiety. later apologetic, saying he is just in pain, both physical and mental, and so has been acting not himself. states he has been having worsened AH and ongoing thoughts of SI. MD discusses changes which have been made, such as increasing oxycodone dosing, scheduling ditropan, increasing seroquel at HS and PRN. pt in agreement, will try this regimen for the weekend. per staff, having difficulty concentrating. bloody urination. eating poorly. constipated. pain 10/10. up all NOC aside from 1 hour. +SI, plan to overdose. Mental Status Exam Mental Status Exam Narrative: pt is alert, oriented. Normal speech. Moderate eye contact. Affect is appropriate and subdued. Moderate anxiety and depression present. No signs of psychosis. +SI with plan to overdose. no HI/AVH expressed. Cognitively is intact. Judgment is intact Diagnostics Vital Signs (24Hr): Vital Signs - 24 hr 05/21/22 20:22 05/22/22 08:25 Temperature 98.0 F 98.0 F Pulse Rate 53 56 Respiratory Rate 18 18 Blood Pressure 112/62 102/58 L Pulse Oximetry 94 97 Oxygen Delivery Method Room Air Room Air BMI result Body Mass Index 23.5 Labs 05/17/22 07:53 05/17/22 07:53 Imaging Radiology Impressions: ITS Impressions Abdomen/Pelvis CT 05/15/22 16:23 IMPRESSION: 5 mm right distal ureteral calculus results in mild asymmetric right hydroureter but no hydronephrosis. Additional tiny nonobstructing bilateral renal calculi are present. Guidance Fluoroscopy 05/19/22 14:52 IMPRESSION: Fluoroscopy provided for the operating room. Please see operative report for additional information. Medications Medications Current Medications Acetaminophen (Acetaminophen 325 Mg Tablet) 650 mg PO Q6H PRN PRN Reason: Headache/Pain Mild Scale (1-3) Last Admin: 05/21/22 20:36 Dose: 650 mg Al Hydroxide/Mg Hydroxide (Magnesium Hydrox/Alum Hydrox 30 Ml Oral.Susp) 30 ml PO Q6H PRN PRN Reason: Heartburn/Nausea Amlodipine Besylate (Amlodipine Besylate 10 Mg Tablet) 10 mg PO DAILY [facility]; Protocol Last Admin: 05/22/22 08:30 Dose: Not Given Bisacodyl (Bisacodyl 10 Mg Supp.Rect) 10 mg [place] DAILY PRN PRN Reason: Constipation Last Admin: 05/21/22 20:38 Dose: 10 mg Bupropion HCl (Bupropion Hcl Xl 300 Mg Tab.Er.24h) 300 mg PO DAILY [facility] Last Admin: 05/22/22 08:28 Dose: 300 mg Clonidine HCl (Clonidine Hcl 0.1 Mg Tablet) 0.1 mg PO BID PRN; Protocol PRN Reason: Anxiety Clonidine HCl (Clonidine Hcl 0.1 Mg Tablet) 0.3 mg PO BEDTIME [facility]; Protocol Last Admin: 05/21/22 20:37 Dose: 0.3 mg Hydroxyzine HCl (Hydroxyzine Hcl 50 Mg Tablet) 100 mg PO BID PRN PRN Reason: anxiety Last Admin: 05/21/22 20:38 Dose: 100 mg Hydroxyzine HCl (Hydroxyzine Hcl 25 Mg Tablet) 25 mg PO Q6H PRN PRN Reason: Anxiety Last Admin: 05/22/22 01:43 Dose: 25 mg Ketorolac Tromethamine (Ketorolac Tromethamine 30 Mg/Ml Vial) 30 mg IM Q6H PRN PRN Reason: pain 4-6 Last Admin: 05/21/22 23:55 Dose: 30 mg Lorazepam (Lorazepam 1 Mg Tablet) 1 mg PO Q4H PRN PRN Reason: AH/anxiety Last Admin: 05/22/22 12:39 Dose: 1 mg Magnesium Hydroxide (Milk Of Magnesia 30 Ml Oral.Susp) 30 ml PO DAILY PRN PRN Reason: Constipation Multivitamins/Vitamin C (Multivitamin Tablet) 1 tab PO DAILY [facility] Last Admin: 05/22/22 08:28 Dose: 1 tab Nicotine (Nicotine 21 Mg Patch.Td24) 21 mg TRANSDERMA DAILY [facility] Last Admin: 05/22/22 08:29 Dose: 21 mg Ondansetron HCl (Ondansetron Odt 4 Mg Tab.Rapdis) 8 mg TRANSLINGU Q6H PRN PRN Reason: nausea Last Admin: 05/21/22 08:29 Dose: 8 mg Oxybutynin Chloride (Oxybutynin Chloride Er 5 Mg Tab.Er.24) 5 mg PO TID [facility] Oxycodone HCl (Oxycodone Hcl Immed Release 5 Mg Tablet) 10 mg PO Q4H PRN PRN Reason: Pain, Mild (Pain Scale 7-10) Polyethylene Glycol (Polyethylene Glycol 3350 17 Gm Powd.Pack) 17 gm PO BID [facility] Last Admin: 05/22/22 08:30 Dose: 17 gm Quetiapine Fumarate (Quetiapine Fumarate 100 Mg Tablet) 100 mg PO BEDTIME [facility] Quetiapine Fumarate (Quetiapine Fumarate 100 Mg Tablet) 100 mg PO BEDTIME PRN PRN Reason: Insomnia Quetiapine Fumarate (Quetiapine Fumarate 50 Mg Tablet) 50 mg PO Q4H PRN PRN Reason: anxiety/restlessness Tamsulosin HCl (Tamsulosin Hcl 0.4 Mg Capsule) 0.4 mg PO ONCE [facility] Stop: 05/22/22 23:55 Last Admin: 05/21/22 08:48 Dose: 0.4 mg Tamsulosin HCl (Tamsulosin Hcl 0.4 Mg Capsule) 0.4 mg PO DAILY [facility] Last Admin: 05/22/22 08:29 Dose: 0.4 mg Thiamine HCl (Thiamine Hcl 100 Mg Tablet) 100 mg PO DAILY [facility] Last Admin: 05/22/22 08:28 Dose: 100 mg Trazodone HCl (Trazodone Hcl 100 Mg Tablet) 200 mg PO BEDTIME [facility] Last Admin: 05/21/22 20:38 Dose: 200 mg Allergies Allergies Allergy/AdvReac Type Severity Reaction Status Date / Time No Known Allergies Allergy Verified 05/19/22 12:53 [No Known Allergies*] Assessment & Plan Assessment & Plan (1) Right ureteral stone: Status: Acute Code(s): N20.1 - Calculus of ureter Assessment and Plan: per 05/18 urology note: Imaging reviewed BUN-21 CREAT- 1.32 Continue Flomax Continue PRN oxycodone for pain Discussed importance of increasing/maintaining adequate PO intake Discussed with nursing to strain urine and or have patient utilize urinal to further assess if stone has passed If patient continues with pain and has not been noted to pass stone plan for OR tomorrow for Cystoscopy, ureteroscopy, retrograde, basketing and possible stent placement on the right side with Dr. Murcia. Case discussed. NPO after midnight. (2) Flank pain: Status: Acute Code(s): R10.9 - Unspecified abdominal pain (3) Major depression, recurrent: Status: Acute Code(s): F33.9 - Major depressive disorder, recurrent, unspecified Plan 05/17:? Brian was admitted for safety and stabilization.? He meets criteria for inpatient level of care.? Current medications including Wellbutrin, Seroquel and hydroxyzine were continued.? I added BuSpar 5 mg b.i.d. to be increased over the next several days.? Side effects with regards to dizziness discussed.? Outpatien t referrals to be made.? He will meet with his treatment team on 05/18/202205/18:? buspar DCed, seroquel 50 at HS added.? pt will take seroquel 25 PRNs during the day for anxiety.? urological procedure tomorrow to address renal calculus; NPO after MN tonight. 05/19: no changes to medications regimen. procedure 1 pm for definitive Tx of kidney stone. 05/20: ureter stented and stone passed, apparently. remains in pain with dys- and hematuria. per urology PA will need to have stent removed in a week and can expect pain and bleeding until then; they are making an appointment for him. observe for today without making any changes. pt reports his depression and anxiety have not changed since admission. 05/21: c/o ongoing depression without relief, anxiety. now AH starting. agrees to increase HS seroquel to 100 mg, make use of seroquel 25 mg PRNs. stent removal scheduled for 05/27 at 2:45. ongoing pain and bleeding expected to continue through removal of stent. 05/22: more irritable. +SI. weary. increased oxycodone dosing from 7.5 mg to 10 mg each. scheduled oxybutynin 5 TID. increased seroquel PRNs to 50 mg each. increased HS seroquel to 100 mg MR x 1. Reason for contiued inpatient stay Substantial Risk for: harm to self, inability to function and rapid decompensation Time Spent With Patient Time: Total time managing care of this patient today __35__ minutes.
[2022-05-22] MEDS: oxyCODONE HCl Immed Release 5 MG TABLET 10 MG PO ×2 (15:44→20:42)
[2022-05-22] MEDS: QUEtiapine Fumarate 50 MG TABLET PO (15:46)
--- NOTE | 2022-05-22 18:21 | PC.NURSE ---
Patient appears more relaxed, reports some reduction in pain, though continued somewhat milder AH.
[2022-05-22] MEDS: traZODone HCL 100 MG TABLET 200 MG PO (20:41)
[2022-05-22] MEDS: QUEtiapine Fumarate 100 MG TABLET PO (20:43)
[2022-05-22 20:45] VITALS: BP 99/59; PULSE 73; RESP 16; TEMP 36.7; O2SAT 95
[2022-05-23] MEDS: oxyCODONE HCl Immed Release 5 MG TABLET 10 MG PO ×5 (04:23→23:00)
[2022-05-23] MEDS: Acetaminophen 325 MG TABLET 650 MG PO ×2 (04:23→23:00)
[2022-05-23] MEDS: LORazepam 1 MG TABLET PO (04:24)
[2022-05-23 09:42] VITALS: BP 133/77; PULSE 97; RESP 18; TEMP 36.5; O2SAT 97
[2022-05-23] MEDS: Thiamine HCL 100 MG TABLET PO (09:47)
[2022-05-23] MEDS: amLODIPine Besylate 10 MG TABLET PO (09:47)
[2022-05-23] MEDS: Tamsulosin HCL 0.4 MG CAPSULE PO (09:47)
[2022-05-23] MEDS: Multivitamin TABLET 1 TAB PO (09:47)
[2022-05-23] MEDS: buPROPion HCl XL 300 MG TAB.ER.24H PO (09:47)
[2022-05-23] MEDS: Nicotine 21 MG PATCH.TD24 TRANSDERMA (09:48)
--- NOTE | 2022-05-23 13:00 | P.PNPSI_ITS ---
Subjective Subjective Date of Service: 05/23/22 Reason For Visit: right uretera stone Interim History: Patient seen and discussed. Reports he is still anxious and depressed. He understands that med changes are recent and that they may need some time to exert effect. He reports he still has some abdominal and flank pain but it's improving. He says he still has hematuria but it's less than before and is able to void. He was encouraged to stay well hydrated and he smiles and points to the pitcher of water next to his bed indicating he has been doing just that. He reports ongoing AH and SI but says he wouldn't hurt himself on the unit. Review of Systems Review of Systems Flank pain from kidney stones Yes all other systems are reviewed and are negative Constitutional: Reports as per HPI Eyes: Reports no additional eye complaints Cardiovascular: Reports no additional cardiovascular complaints Respiratory: Reports no additional respiratory complaints Gastrointestinal: Reports as per HPI Genitourinary: Reports as per HPI Musculoskeletal: Reports no additional musculoskeletal complaints Reports system reviewed and no additional complaints, except as documented Psychiatric: Reports as per HPI Endocrine: Reports no additional endocrine complaints Mental Status Exam Mental Status Exam Narrative: pt is alert, oriented. Normal speech. Moderate eye contact. Affect is appropriate and subdued. Moderate anxiety and depression present. No signs of psychosis. +SI with plan to overdose. no HI/AVH expressed. Cognitively is intact. Judgment is intact Diagnostics Vital Signs (24Hr): Vital Signs - 24 hr 05/23/22 09:42 Temperature 97.7 F Pulse Rate 97 Respiratory Rate 18 Blood Pressure 133/77 Pulse Oximetry 97 Oxygen Delivery Method Room Air BMI result Body Mass Index 23.5 Labs 05/17/22 07:53 05/17/22 07:53 Imaging Radiology Impressions: ITS Impressions Abdomen/Pelvis CT 05/15/22 16:23 IMPRESSION: 5 mm right distal ureteral calculus results in mild asymmetric right hydroureter but no hydronephrosis. Additional tiny nonobstructing bilateral renal calculi are present. Guidance Fluoroscopy 05/19/22 14:52 IMPRESSION: Fluoroscopy provided for the operating room. Please see operative report for additional information. Medications Medications Current Medications Acetaminophen (Acetaminophen 325 Mg Tablet) 650 mg PO Q6H PRN PRN Reason: Headache/Pain Mild Scale (1-3) Last Admin: 05/23/22 04:23 Dose: 650 mg Al Hydroxide/Mg Hydroxide (Magnesium Hydrox/Alum Hydrox 30 Ml Oral.Susp) 30 ml PO Q6H PRN PRN Reason: Heartburn/Nausea Amlodipine Besylate (Amlodipine Besylate 10 Mg Tablet) 10 mg PO DAILY [facility]; Protocol Last Admin: 05/23/22 09:47 Dose: 10 mg Bisacodyl (Bisacodyl 10 Mg Supp.Rect) 10 mg [place] DAILY PRN PRN Reason: Constipation Last Admin: 05/21/22 20:38 Dose: 10 mg Bupropion HCl (Bupropion Hcl Xl 300 Mg Tab.Er.24h) 300 mg PO DAILY [facility] Last Admin: 05/23/22 09:47 Dose: 300 mg Clonidine HCl (Clonidine Hcl 0.1 Mg Tablet) 0.1 mg PO BID PRN; Protocol PRN Reason: Anxiety Clonidine HCl (Clonidine Hcl 0.1 Mg Tablet) 0.3 mg PO BEDTIME [facility]; Protocol Last Admin: 05/22/22 20:57 Dose: Not Given Hydroxyzine HCl (Hydroxyzine Hcl 50 Mg Tablet) 100 mg PO BID PRN PRN Reason: anxiety Last Admin: 05/21/22 20:38 Dose: 100 mg Hydroxyzine HCl (Hydroxyzine Hcl 25 Mg Tablet) 25 mg PO Q6H PRN PRN Reason: Anxiety Last Admin: 05/22/22 01:43 Dose: 25 mg Ketorolac Tromethamine (Ketorolac Tromethamine 30 Mg/Ml Vial) 30 mg IM Q6H PRN PRN Reason: pain 4-6 Last Admin: 05/21/22 23:55 Dose: 30 mg Lorazepam (Lorazepam 1 Mg Tablet) 1 mg PO Q4H PRN PRN Reason: AH/anxiety Last Admin: 05/23/22 04:24 Dose: 1 mg Magnesium Hydroxide (Milk Of Magnesia 30 Ml Oral.Susp) 30 ml PO DAILY PRN PRN Reason: Constipation Multivitamins/Vitamin C (Multivitamin Tablet) 1 tab PO DAILY [facility] Last Admin: 05/23/22 09:47 Dose: 1 tab Nicotine (Nicotine 21 Mg Patch.Td24) 21 mg TRANSDERMA DAILY [facility] Last Admin: 05/23/22 09:48 Dose: 21 mg Ondansetron HCl (Ondansetron Odt 4 Mg Tab.Rapdis) 8 mg TRANSLINGU Q6H PRN PRN Reason: nausea Last Admin: 05/21/22 08:29 Dose: 8 mg Oxybutynin Chloride (Oxybutynin Chloride Er 5 Mg Tab.Er.24) 5 mg PO TID [facility] Last Admin: 05/23/22 14:29 Dose: 5 mg Oxycodone HCl (Oxycodone Hcl Immed Release 5 Mg Tablet) 10 mg PO Q4H PRN PRN Reason: Pain, Mild (Pain Scale 7-10) Last Admin: 05/23/22 18:52 Dose: 10 mg Polyethylene Glycol (Polyethylene Glycol 3350 17 Gm Powd.Pack) 17 gm PO BID [facility] Last Admin: 05/23/22 10:01 Dose: Not Given Quetiapine Fumarate (Quetiapine Fumarate 100 Mg Tablet) 100 mg PO BEDTIME [facility] Last Admin: 05/22/22 20:43 Dose: 100 mg Quetiapine Fumarate (Quetiapine Fumarate 100 Mg Tablet) 100 mg PO BEDTIME PRN PRN Reason: Insomnia Quetiapine Fumarate (Quetiapine Fumarate 50 Mg Tablet) 50 mg PO Q4H PRN PRN Reason: anxiety/restlessness Last Admin: 05/22/22 15:46 Dose: 50 mg Tamsulosin HCl (Tamsulosin Hcl 0.4 Mg Capsule) 0.4 mg PO DAILY [facility] Last Admin: 05/23/22 09:47 Dose: 0.4 mg Thiamine HCl (Thiamine Hcl 100 Mg Tablet) 100 mg PO DAILY [facility] Last Admin: 05/23/22 09:47 Dose: 100 mg Trazodone HCl (Trazodone Hcl 100 Mg Tablet) 200 mg PO BEDTIME [facility] Last Admin: 05/22/22 20:41 Dose: 200 mg Allergies Allergies Allergy/AdvReac Type Severity Reaction Status Date / Time No Known Allergies Allergy Verified 05/19/22 12:53 [No Known Allergies*] Assessment & Plan Assessment & Plan (1) Right ureteral stone: Status: Acute Code(s): N20.1 - Calculus of ureter Assessment and Plan: per 05/18 urology note: Imaging reviewed BUN-21 CREAT- 1.32 Continue Flomax Continue PRN oxycodone for pain Discussed importance of increasing/maintaining adequate PO intake Discussed with nursing to strain urine and or have patient utilize urinal to further assess if stone has passed If patient continues with pain and has not been noted to pass stone plan for OR tomorrow for Cystoscopy, ureteroscopy, retrograde, basketing and possible stent placement on the right side with Dr. Murcia. Case discussed. NPO after midnight. (2) Flank pain: Status: Acute Code(s): R10.9 - Unspecified abdominal pain (3) Major depression, recurrent: Status: Acute Code(s): F33.9 - Major depressive disorder, recurrent, unspecified Plan 05/17:? Brian was admitted for safety and stabilization.? He meets criteria for inpatient level of care.? Current medications including Wellbutrin, Seroquel and hydroxyzine were continued.? I added BuSpar 5 mg b.i.d. to be increased over the next several days.? Side effects with regards to dizziness discussed.? Outpatient referrals to be made.? He will meet with his treatment team on 05/18/202205/18:? buspar DCed, seroquel 50 at HS added.? pt will take seroquel 25 PRNs during the day for anxiety.? urological procedure tomorrow to address renal calculus; NPO after MN tonight. 05/19: no changes to medications regimen. procedure 1 pm for definitive Tx of kidney stone. 05/20: ureter stented and stone passed, apparently. remains in pain with dys- and hematuria. per urology PA will need to have stent removed in a week and can expect pain and bleeding until then; they are making an appointment for him. observe for today without making any changes. pt reports his depression and anxiety have not changed since admission. 05/21: c/o ongoing depression without relief, anxiety. now AH starting. agrees to increase HS seroquel to 100 mg, make use of seroquel 25 mg PRNs. stent removal scheduled for 05/27 at 2:45. ongoing pain and bleeding expected to continue through removal of stent. 05/22: more irritable. +SI. weary. increased oxycodone dosing from 7.5 mg to 10 mg each. scheduled oxybutynin 5 TID. increased seroquel PRNs to 50 mg each. increased HS seroquel to 100 mg MR x 1. 05/23: Continue current treatment plan. Reason for contiued inpatient stay Substantial Risk for: harm to self Time Spent With Patient Time: Total time managing care of this patient today ____ minutes.
[2022-05-23 22:47] VITALS: BP 111/69; PULSE 58; RESP 16; TEMP 36.6; O2SAT 94
[2022-05-23] MEDS: QUEtiapine Fumarate 100 MG TABLET PO (22:59)
[2022-05-23] MEDS: traZODone HCL 100 MG TABLET 200 MG PO (22:59)
[2022-05-23] MEDS: cloNIDine HCL 0.1 MG TABLET 0.3 MG PO (22:59)
[2022-05-24] MEDS: LORazepam 1 MG TABLET PO ×2 (03:06→17:53)
[2022-05-24] MEDS: oxyCODONE HCl Immed Release 5 MG TABLET 10 MG PO ×4 (03:06→17:53)
--- NOTE | 2022-05-24 05:00 | PC.NURSE ---
Brian reports the blood in his urine has reduced over the past 2 days and there is only a small amount. Continues to report pain 8-9/10 and is utilizing prn medications. Patient continues to report SI, with no plan and AH (intermittently).
[2022-05-24 09:05] VITALS: BP 105/53; PULSE 52; RESP 18; TEMP 36.2; O2SAT 95
[2022-05-24] MEDS: Tamsulosin HCL 0.4 MG CAPSULE PO (09:17)
[2022-05-24] MEDS: Thiamine HCL 100 MG TABLET PO (09:18)
[2022-05-24] MEDS: buPROPion HCl XL 300 MG TAB.ER.24H PO (09:18)
[2022-05-24] MEDS: amLODIPine Besylate 10 MG TABLET PO (09:18)
[2022-05-24] MEDS: Multivitamin TABLET 1 TAB PO (09:19)
--- NOTE | 2022-05-24 11:30 | HO.PSYCHPN ---
Subjective Subjective Date of Service: 05/24/22 Reason For Visit: right uretera stone Interim History: Patient seen and discussed. Reports he is still anxious and depressed.He sarcastically says I am fantastic. He is referring to still being in pain from the lithotripsy.He has been able to void, no increase in pain, no fevers. He says he still has hematuria but it's less than before and is able to void. He reports some AH and SI but says he wouldn't hurt himself on the unit. Review of Systems Review of Systems Flank pain from kidney stones Yes all other systems are reviewed and are negative Constitutional: Reports as per HPI Eyes: Reports no additional eye complaints Cardiovascular: Reports no additional cardiovascular complaints Respiratory: Reports no additional respiratory complaints Gastrointestinal: Reports as per HPI Genitourinary: Reports as per HPI Musculoskeletal: Reports no additional musculoskeletal complaints Reports system reviewed and no additional complaints, except as documented Psychiatric: Reports as per HPI Endocrine: Reports no additional endocrine complaints Mental Status Exam Mental Status Exam Narrative: pt is alert, oriented. Normal speech. Moderate eye contact. Affect is appropriate and subdued. Moderate anxiety and depression present. No signs of psychosis. +SI with plan to overdose. no HI/AVH expressed. Cognitively is intact. Judgment is intact Diagnostics Vital Signs (24Hr): Vital Signs - 24 hr 05/23/22 22:47 05/24/22 09:05 05/24/22 18:00 Temperature 98 F 97.2 F 97.7 F Pulse Rate 58 52 52 Respiratory Rate 16 18 18 Blood Pressure 111/69 105/53 L 107/74 Pulse Oximetry 94 95 93 Oxygen Delivery Method Room Air Room Air Room Air BMI result Body Mass Index 23.5 Labs 05/17/22 07:53 05/17/22 07:53 Imaging Radiology Impressions: ITS Impressions Abdomen/Pelvis CT 05/15/22 16:23 IMPRESSION: 5 mm right distal ureteral calculus results in mild asymmetric right hydroureter but no hydronephrosis. Additional tiny nonobstructing bilateral renal calculi are present. Guidance Fluoroscopy 05/19/22 14:52 IMPRESSION: Fluoroscopy provided for the operating room. Please see operative report for additional information. Medications Medications Current Medications Acetaminophen (Acetaminophen 325 Mg Tablet) 650 mg PO Q6H PRN PRN Reason: Headache/Pain Mild Scale (1-3) Last Admin: 05/23/22 23:00 Dose: 650 mg Al Hydroxide/Mg Hydroxide (Magnesium Hydrox/Alum Hydrox 30 Ml Oral.Susp) 30 ml PO Q6H PRN PRN Reason: Heartburn/Nausea Amlodipine Besylate (Amlodipine Besylate 10 Mg Tablet) 10 mg PO DAILY [facility]; Protocol Last Admin: 05/24/22 09:18 Dose: 10 mg Bisacodyl (Bisacodyl 10 Mg Supp.Rect) 10 mg [place] DAILY PRN PRN Reason: Constipation Last Admin: 05/24/22 14:06 Dose: 10 mg Bupropion HCl (Bupropion Hcl Xl 300 Mg Tab.Er.24h) 300 mg PO DAILY [facility] Last Admin: 05/24/22 09:18 Dose: 300 mg Clonidine HCl (Clonidine Hcl 0.1 Mg Tablet) 0.1 mg PO BID PRN; Protocol PRN Reason: Anxiety Clonidine HCl (Clonidine Hcl 0.1 Mg Tablet) 0.3 mg PO BEDTIME [facility]; Protocol Last Admin: 05/24/22 20:59 Dose: Not Given Hydroxyzine HCl (Hydroxyzine Hcl 50 Mg Tablet) 100 mg PO BID PRN PRN Reason: anxiety Last Admin: 05/21/22 20:38 Dose: 100 mg Hydroxyzine HCl (Hydroxyzine Hcl 25 Mg Tablet) 25 mg PO Q6H PRN PRN Reason: Anxiety Last Admin: 05/22/22 01:43 Dose: 25 mg Ketorolac Tromethamine (Ketorolac Tromethamine 30 Mg/Ml Vial) 30 mg IM Q6H PRN PRN Reason: pain 4-6 Last Admin: 05/21/22 23:55 Dose: 30 mg Lorazepam (Lorazepam 1 Mg Tablet) 1 mg PO Q4H PRN PRN Reason: AH/anxiety Last Admin: 05/24/22 17:53 Dose: 1 mg Magnesium Hydroxide (Milk Of Magnesia 30 Ml Oral.Susp) 30 ml PO DAILY PRN PRN Reason: Constipation Multivitamins/Vitamin C (Multivitamin Tablet) 1 tab PO DAILY [facility] Last Admin: 05/24/22 09:19 Dose: 1 tab Nicotine (Nicotine 21 Mg Patch.Td24) 21 mg TRANSDERMA DAILY [facility] Last Admin: 05/24/22 11:05 Dose: Not Given Ondansetron HCl (Ondansetron Odt 4 Mg Tab.Rapdis) 8 mg TRANSLINGU Q6H PRN PRN Reason: nausea Last Admin: 05/21/22 08:29 Dose: 8 mg Oxybutynin Chloride (Oxybutynin Chloride Er 5 Mg Tab.Er.24) 5 mg PO TID [facility] Last Admin: 05/24/22 14:04 Dose: 5 mg Oxycodone HCl (Oxycodone Hcl Immed Release 5 Mg Tablet) 10 mg PO Q4H PRN PRN Reason: Pain, Mild (Pain Scale 7-10) Last Admin: 05/24/22 17:53 Dose: 10 mg Polyethylene Glycol (Polyethylene Glycol 3350 17 Gm Powd.Pack) 17 gm PO BID [facility] Last Admin: 05/24/22 20:59 Dose: Not Given Quetiapine Fumarate (Quetiapine Fumarate 100 Mg Tablet) 100 mg PO BEDTIME [facility] Last Admin: 05/24/22 20:57 Dose: 100 mg Quetiapine Fumarate (Quetiapine Fumarate 100 Mg Tablet) 100 mg PO BEDTIME PRN PRN Reason: Insomnia Quetiapine Fumarate (Quetiapine Fumarate 50 Mg Tablet) 50 mg PO Q4H PRN PRN Reason: anxiety/restlessness Last Admin: 05/24/22 17:53 Dose: 50 mg Tamsulosin HCl (Tamsulosin Hcl 0.4 Mg Capsule) 0.4 mg PO DAILY [facility] Last Admin: 05/24/22 09:17 Dose: 0.4 mg Thiamine HCl (Thiamine Hcl 100 Mg Tablet) 100 mg PO DAILY [facility] Last Admin: 05/24/22 09:18 Dose: 100 mg Trazodone HCl (Trazodone Hcl 100 Mg Tablet) 200 mg PO BEDTIME [facility] Last Admin: 05/24/22 20:56 Dose: 200 mg Allergies Allergies Allergy/AdvReac Type Severity Reaction Status Date / Time No Known Allergies Allergy Verified 05/19/22 12:53 [No Known Allergies*] Assessment & Plan Assessment & Plan (1) Right ureteral stone: Status: Acute Code(s): N20.1 - Calculus of ureter Assessment and Plan: per 05/18 urology note: Imaging reviewed BUN-21 CREAT- 1.32 Continue Flomax Continue PRN oxycodone for pain Discussed importance of increasing/maintaining adequate PO intake Discussed with nursing to strain urine and or have patient utilize urinal to further assess if stone has passed If patient continues with pain and has not been noted to pass stone plan for OR tomorrow for Cystoscopy, ureteroscopy, retrograde, basketing and possible stent placement on the right side with Dr. Murcia. Case discussed. NPO after midnight. (2) Flank pain: Status: Acute Code(s): R10.9 - Unspecified abdominal pain (3) Major depression, recurrent: Status: Acute Code(s): F33.9 - Major depressive disorder, recurrent, unspecified Plan 05/17:? Brian was admitted for safety and stabilization.? He meets criteria for inpatient level of care.? Current medications including Wellbutrin, Seroquel and hydroxyzine were continued.? I added BuSpar 5 mg b.i.d. to be increased over the next several days.? Side effects with regards to dizziness discussed.? Outpatient referrals to be made.? He will meet with his treatment team on 05/18/202205/18:? buspar DCed, seroquel 50 at HS added.? pt will take seroquel 25 PRNs during the day for anxiety.? urological procedure tomorrow to address renal calculus; NPO after MN tonight. 05/19: no changes to medications regimen. procedure 1 pm for definitive Tx of kidney stone. 05/20: ureter stented and stone passed, apparently. remains in pain with dys- and hematuria. per urology PA will need to have stent removed in a week and can expect pain and bleeding until then; they are making an appointment for him. observe for today without making any changes. pt reports his depression and anxiety have not changed since admission. 05/21: c/o ongoing depression without relief, anxiety. now AH starting. agrees to increase HS seroquel to 100 mg, make use of seroquel 25 mg PRNs. stent removal scheduled for 05/27 at 2:45. ongoing pain and bleeding expected to continue through removal of stent. 05/22: more irritable. +SI. weary. increased oxycodone dosing from 7.5 mg to 10 mg each. scheduled oxybutynin 5 TID. increased seroquel PRNs to 50 mg each. increased HS seroquel to 100 mg MR x 1. 05/23: Continue current treatment plan. 05/24: Continue current treatment plan. Reason for contiued inpatient stay Substantial Risk for: harm to self and rapid decompensation Time Spent With Patient Time: Total time managing care of this patient today ____ minutes.
[2022-05-24] MEDS: bisacodyL 10 MG SUPP.RECT PR (14:06)
[2022-05-24] MEDS: QUEtiapine Fumarate 50 MG TABLET PO (17:53)
[2022-05-24 18:00] VITALS: BP 107/74; PULSE 52; RESP 18; TEMP 36.5; O2SAT 93
[2022-05-24] MEDS: traZODone HCL 100 MG TABLET 200 MG PO (20:56)
[2022-05-24] MEDS: QUEtiapine Fumarate 100 MG TABLET PO (20:57)
[2022-05-25 09:20] VITALS: BP 115/76; PULSE 63; RESP 18; TEMP 36.7; O2SAT 97
[2022-05-25] MEDS: oxyCODONE HCl Immed Release 5 MG TABLET 10 MG PO ×3 (09:30→22:29)
[2022-05-25] MEDS: Multivitamin TABLET 1 TAB PO (09:31)
[2022-05-25] MEDS: amLODIPine Besylate 10 MG TABLET PO (09:31)
[2022-05-25] MEDS: buPROPion HCl XL 300 MG TAB.ER.24H PO (09:32)
[2022-05-25] MEDS: Thiamine HCL 100 MG TABLET PO (09:32)
[2022-05-25] MEDS: Tamsulosin HCL 0.4 MG CAPSULE PO (09:32)
[2022-05-25] MEDS: Nicotine 21 MG PATCH.TD24 TRANSDERMA (10:27)
--- NOTE | 2022-05-25 14:55 | HO.PSYCHPN ---
Subjective Subjective Date of Service: 05/25/22 Reason For Visit: right uretera stone Interim History: calm, cooperative. c/o pain, but improved from last week. tearful and labile regarding the loss of his . speaks to his [id number] daily. c/o constipation, asking for dulcolax. reports SI with craving to overdose on heroin. states he gets a fat check tomorrow, and it is at the forefront of his thinking (buying heroin to overdose). AH also continue, but he feels he is able to manage them a bit better than before - they are less powerful. per staff, dep 8, anx 8. +AH. constipated. in pain, improved. appears to sleep at NOC. Mental Status Exam Mental Status Exam Narrative: pt is alert, oriented. Normal speech. Moderate eye contact. Affect is appropriate and subdued, periods of lability with crying. anxiety and depression present. No signs of psychosis. +SI with plan to overdose. no HI/AVH expressed. Cognitively is intact. Judgment is intact Diagnostics Vital Signs (24Hr): Vital Signs - 24 hr 05/24/22 18:00 05/25/22 09:20 Temperature 97.7 F 98.0 F Pulse Rate 52 63 Respiratory Rate 18 18 Blood Pressure 107/74 115/76 Pulse Oximetry 93 97 Oxygen Delivery Method Room Air Room Air BMI result Body Mass Index 23.5 Labs 05/17/22 07:53 05/17/22 07:53 Imaging Radiology Impressions: ITS Impressions Abdomen/Pelvis CT 05/15/22 16:23 IMPRESSION: 5 mm right distal ureteral calculus results in mild asymmetric right hydroureter but no hydronephrosis. Additional tiny nonobstructing bilateral renal calculi are present. Guidance Fluoroscopy 05/19/22 14:52 IMPRESSION: Fluoroscopy provided for the operating room. Please see operative report for additional information. Medications Medications Current Medications Acetaminophen (Acetaminophen 325 Mg Tablet) 650 mg PO Q6H PRN PRN Reason: Headache/Pain Mild Scale (1-3) Last Admin: 05/23/22 23:00 Dose: 650 mg Al Hydroxide/Mg Hydroxide (Magnesium Hydrox/Alum Hydrox 30 Ml Oral.Susp) 30 ml PO Q6H PRN PRN Reason: Heartburn/Nausea Amlodipine Besylate (Amlodipine Besylate 10 Mg Tablet) 10 mg PO DAILY [facility]; Protocol Last Admin: 05/25/22 09:31 Dose: 10 mg Bisacodyl (Bisacodyl 10 Mg Supp.Rect) 10 mg [place] DAILY PRN PRN Reason: Constipation Last Admin: 05/24/22 14:06 Dose: 10 mg Bupropion HCl (Bupropion Hcl Xl 300 Mg Tab.Er.24h) 300 mg PO DAILY [facility] Last Admin: 05/25/22 09:32 Dose: 300 mg Clonidine HCl (Clonidine Hcl 0.1 Mg Tablet) 0.1 mg PO BID PRN; Protocol PRN Reason: Anxiety Clonidine HCl (Clonidine Hcl 0.1 Mg Tablet) 0.3 mg PO BEDTIME [facility]; Protocol Last Admin: 05/24/22 20:59 Dose: Not Given Hydroxyzine HCl (Hydroxyzine Hcl 50 Mg Tablet) 100 mg PO BID PRN PRN Reason: anxiety Last Admin: 05/21/22 20:38 Dose: 100 mg Hydroxyzine HCl (Hydroxyzine Hcl 25 Mg Tablet) 25 mg PO Q6H PRN PRN Reason: Anxiety Last Admin: 05/22/22 01:43 Dose: 25 mg Ketorolac Tromethamine (Ketorolac Tromethamine 30 Mg/Ml Vial) 30 mg IM Q6H PRN PRN Reason: pain 4-6 Last Admin: 05/21/22 23:55 Dose: 30 mg Lorazepam (Lorazepam 1 Mg Tablet) 1 mg PO Q4H PRN PRN Reason: AH/anxiety Last Admin: 05/24/22 17:53 Dose: 1 mg Magnesium Hydroxide (Milk Of Magnesia 30 Ml Oral.Susp) 30 ml PO DAILY PRN PRN Reason: Constipation Multivitamins/Vitamin C (Multivitamin Tablet) 1 tab PO DAILY [facility] Last Admin: 05/25/22 09:31 Dose: 1 tab Nicotine (Nicotine 21 Mg Patch.Td24) 21 mg TRANSDERMA DAILY [facility] Last Admin: 05/25/22 10:27 Dose: 21 mg Ondansetron HCl (Ondansetron Odt 4 Mg Tab.Rapdis) 8 mg TRANSLINGU Q6H PRN PRN Reason: nausea Last Admin: 05/21/22 08:29 Dose: 8 mg Oxybutynin Chloride (Oxybutynin Chloride Er 5 Mg Tab.Er.24) 5 mg PO TID [facility] Last Admin: 05/25/22 14:46 Dose: 5 mg Oxycodone HCl (Oxycodone Hcl Immed Release 5 Mg Tablet) 10 mg PO Q4H PRN PRN Reason: Pain, Mild (Pain Scale 7-10) Last Admin: 05/25/22 09:30 Dose: 10 mg Polyethylene Glycol (Polyethylene Glycol 3350 17 Gm Powd.Pack) 17 gm PO BID [facility] Last Admin: 05/25/22 09:33 Dose: Not Given Quetiapine Fumarate (Quetiapine Fumarate 100 Mg Tablet) 100 mg PO BEDTIME [facility] Last Admin: 05/24/22 20:57 Dose: 100 mg Quetiapine Fumarate (Quetiapine Fumarate 100 Mg Tablet) 100 mg PO BEDTIME PRN PRN Reason: Insomnia Quetiapine Fumarate (Quetiapine Fumarate 50 Mg Tablet) 50 mg PO Q4H PRN PRN Reason: anxiety/restlessness Last Admin: 05/24/22 17:53 Dose: 50 mg Tamsulosin HCl (Tamsulosin Hcl 0.4 Mg Capsule) 0.4 mg PO DAILY [facility] Last Admin: 05/25/22 09:32 Dose: 0.4 mg Thiamine HCl (Thiamine Hcl 100 Mg Tablet) 100 mg PO DAILY [facility] Last Admin: 05/25/22 09:32 Dose: 100 mg Trazodone HCl (Trazodone Hcl 100 Mg Tablet) 200 mg PO BEDTIME [facility] Last Admin: 05/24/22 20:56 Dose: 200 mg Allergies Allergies Allergy/AdvReac Type Severity Reaction Status Date / Time No Known Allergies Allergy Verified 05/19/22 12:53 [No Known Allergies*] Assessment & Plan Assessment & Plan (1) Right ureteral stone: Status: Acute Code(s): N20.1 - Calculus of ureter Assessment and Plan: per 05/18 urology note: Imaging reviewed BUN-21 CREAT- 1.32 Continue Flomax Continue PRN oxycodone for pain Discussed importance of increasing/maintaining adequate PO intake Discussed with nursing to strain urine and or have patient utilize urinal to further assess if stone has passed If patient continues with pain and has not been noted to pass stone plan for OR tomorrow for Cystoscopy, ureteroscopy, retrograde, basketing and possible stent placement on the right side with Dr. Murcia. Case discussed. NPO after midnight. (2) Flank pain: Status: Acute Code(s): R10.9 - Unspecified abdominal pain (3) Major depression, recurrent: Status: Acute Code(s): F33.9 - Major depressive disorder, recurrent, unspecified Plan 05/17:? Brian was admitted for safety and stabilization.? He meets criteria for inpatient level of care.? Current medications including Wellbutrin, Seroquel and hydroxyzine were continued.? I added BuSpar 5 mg b.i.d. to be increased over the next several days.? Side effects with regards to dizziness discussed.? Outpatient referrals to be made.? He will meet with his treatment team on 05/18/202205/18:? buspar DCed, seroquel 50 at HS added.? pt will take seroquel 25 PRNs during the day for anxiety.? urological procedure tomorrow to address renal calculus; NPO after MN tonight. 05/19: no changes to medications regimen. procedure 1 pm for definitive Tx of kidney stone. 05/20: ureter stented and stone passed, apparently. remains in pain with dys- and hematuria. per urology PA will need to have stent removed in a week and can expect pain and bleeding until then; they are making an appointment for him. observe for today without making any changes. pt reports his depression and anxiety have not changed since admission. 05/21: c/o ongoing depression without relief, anxiety. now AH starting. agrees to increase HS seroquel to 100 mg, make use of seroquel 25 mg PRNs. stent removal scheduled for 05/27 at 2:45. ongoing pain and bleeding expected to continue through removal of stent. 05/22: more irritable. +SI. weary. increased oxycodone dosing from 7.5 mg to 10 mg each. scheduled oxybutynin 5 TID. increased seroquel PRNs to 50 mg each. increased HS seroquel to 100 mg MR x 1. 05/23: Continue current treatment plan. 05/24: Continue current treatment plan. 05/25: continue current mgmt. add laxatives as pt requests/tolerates. stent revision weds. Reason for contiued inpatient stay Substantial Risk for: harm to self, inability to function and rapid decompensation Time Spent With Patient Time: Total time managing care of this patient today __25__ minutes.
[2022-05-25] MEDS: LORazepam 1 MG TABLET PO (17:52)
[2022-05-25] MEDS: QUEtiapine Fumarate 50 MG TABLET PO (17:52)
[2022-05-25 22:14] VITALS: BP 126/78; PULSE 90; RESP 20; TEMP 36.8; O2SAT 93
[2022-05-25] MEDS: traZODone HCL 100 MG TABLET 200 MG PO (22:29)
[2022-05-25] MEDS: QUEtiapine Fumarate 100 MG TABLET PO (22:29)
[2022-05-25] MEDS: cloNIDine HCL 0.1 MG TABLET 0.3 MG PO (22:29)
[2022-05-26 10:38] VITALS: RESP 16
--- NOTE | 2022-05-26 10:42 | PC.NURSE ---
Patient resting in room, declined vital signs, medications, meal x2. Unwilling to engage in conversation saying I'm alright' several times. Patient placed on 5 minute checks, Dr. Abdul aware.
[2022-05-26 12:25] VITALS: BP 115/85; PULSE 93; RESP 18; TEMP 36.6; O2SAT 95
[2022-05-26] MEDS: Nicotine 21 MG PATCH.TD24 TRANSDERMA (12:32)
[2022-05-26] MEDS: polyethylene glycoL 3350 17 GM POWD.PACK PO (12:32)
[2022-05-26] MEDS: oxyCODONE HCl Immed Release 5 MG TABLET 10 MG PO ×2 (12:34→18:56)
[2022-05-26] MEDS: LORazepam 1 MG TABLET PO (12:34)
[2022-05-26] MEDS: Tamsulosin HCL 0.4 MG CAPSULE PO (12:35)
[2022-05-26] MEDS: buPROPion HCl XL 300 MG TAB.ER.24H PO (12:36)
[2022-05-26] MEDS: amLODIPine Besylate 10 MG TABLET PO (12:36)
[2022-05-26] MEDS: Thiamine HCL 100 MG TABLET PO (12:37)
[2022-05-26] MEDS: Multivitamin TABLET 1 TAB PO (12:37)
--- NOTE | 2022-05-26 12:47 | PC.NURSE ---
Patient out of room, requesting AM medications due to anxiety and pain. Reviewed w/ Dr. Abdul- patient may receive AM medications now.
--- NOTE | 2022-05-26 14:42 | P.PNPSI_ITS ---
Subjective Subjective Date of Service: 05/26/22 Reason For Visit: right uretera stone Interim History: pt seen in his room, sleeping but rousable. groans, says he wants to sleep, declines interview. per staff, pain has improved from an 11 last week to a 10 this week. safe on unit. anx/dep 9. refused oxybutynin last NOC. appears more depressed than prior. refused bfast, meds, VS this morning. Mental Status Exam Mental Status Exam Narrative: under covers, declines to rouse himself for interview. linear and logical i nbrief interaction. Diagnostics Vital Signs (24Hr): Vital Signs - 24 hr 05/25/22 22:14 05/26/22 10:38 05/26/22 12:25 Temperature 98.3 F 97.8 F Pulse Rate 90 93 Respiratory Rate 20 16 18 Blood Pressure 126/78 115/85 Pulse Oximetry 93 95 Oxygen Delivery Method Room Air Room Air BMI result Body Mass Index 23.5 Labs 05/17/22 07:53 05/17/22 07:53 Imaging Radiology Impressions: ITS Impressions Abdomen/Pelvis CT 05/15/22 16:23 IMPRESSION: 5 mm right distal ureteral calculus results in mild asymmetric right hydroureter but no hydronephrosis. Additional tiny nonobstructing bilateral renal calculi are present. Guidance Fluoroscopy 05/19/22 14:52 IMPRESSION: Fluoroscopy provided for the operating room. Please see operative report for additional information. Medications Medications Current Medications Acetaminophen (Acetaminophen 325 Mg Tablet) 650 mg PO Q6H PRN PRN Reason: Headache/Pain Mild Scale (1-3) Last Admin: 05/23/22 23:00 Dose: 650 mg Al Hydroxide/Mg Hydroxide (Magnesium Hydrox/Alum Hydrox 30 Ml Oral.Susp) 30 ml PO Q6H PRN PRN Reason: Heartburn/Nausea Amlodipine Besylate (Amlodipine Besylate 10 Mg Tablet) 10 mg PO DAILY [facility]; Protocol Last Admin: 05/26/22 12:36 Dose: 10 mg Bisacodyl (Bisacodyl 10 Mg Supp.Rect) 10 mg [place] DAILY PRN PRN Reason: Constipation Last Admin: 05/24/22 14:06 Dose: 10 mg Bupropion HCl (Bupropion Hcl Xl 300 Mg Tab.Er.24h) 300 mg PO DAILY [facility] Last Admin: 05/26/22 12:36 Dose: 300 mg Clonidine HCl (Clonidine Hcl 0.1 Mg Tablet) 0.1 mg PO BID PRN; Protocol PRN Reason: Anxiety Clonidine HCl (Clonidine Hcl 0.1 Mg Tablet) 0.3 mg PO BEDTIME [facility]; Protocol Last Admin: 05/25/22 22:29 Dose: 0.3 mg Hydroxyzine HCl (Hydroxyzine Hcl 50 Mg Tablet) 100 mg PO BID PRN PRN Reason: anxiety Last Admin: 05/21/22 20:38 Dose: 100 mg Hydroxyzine HCl (Hydroxyzine Hcl 25 Mg Tablet) 25 mg PO Q6H PRN PRN Reason: Anxiety Last Admin: 05/22/22 01:43 Dose: 25 mg Ketorolac Tromethamine (Ketorolac Tromethamine 30 Mg/Ml Vial) 30 mg IM Q6H PRN PRN Reason: pain 4-6 Last Admin: 05/21/22 23:55 Dose: 30 mg Lorazepam (Lorazepam 1 Mg Tablet) 1 mg PO Q4H PRN PRN Reason: AH/anxiety Last Admin: 05/26/22 12:34 Dose: 1 mg Magnesium Hydroxide (Milk Of Magnesia 30 Ml Oral.Susp) 30 ml PO DAILY PRN PRN Reason: Constipation Multivitamins/Vitamin C (Multivitamin Tablet) 1 tab PO DAILY [facility] Last Admin: 05/26/22 12:37 Dose: 1 tab Nicotine (Nicotine 21 Mg Patch.Td24) 21 mg TRANSDERMA DAILY [facility] Last Admin: 05/26/22 12:32 Dose: 21 mg Ondansetron HCl (Ondansetron Odt 4 Mg Tab.Rapdis) 8 mg TRANSLINGU Q6H PRN PRN Reason: nausea Last Admin: 05/21/22 08:29 Dose: 8 mg Oxybutynin Chloride (Oxybutynin Chloride Er 5 Mg Tab.Er.24) 5 mg PO TID [facility] Last Admin: 05/26/22 12:35 Dose: 5 mg Oxycodone HCl (Oxycodone Hcl Immed Release 5 Mg Tablet) 10 mg PO Q4H PRN PRN Reason: Pain, Mild (Pain Scale 7-10) Last Admin: 05/26/22 12:34 Dose: 10 mg Polyethylene Glycol (Polyethylene Glycol 3350 17 Gm Powd.Pack) 17 gm PO BID [facility] Last Admin: 01/31/23 12:32 Dose: 17 gm Quetiapine Fumarate (Quetiapine Fumarate 100 Mg Tablet) 100 mg PO BEDTIME [facility] Last Admin: 05/25/22 22:29 Dose: 100 mg Quetiapine Fumarate (Quetiapine Fumarate 100 Mg Tablet) 100 mg PO BEDTIME PRN PRN Reason: Insomnia Quetiapine Fumarate (Quetiapine Fumarate 50 Mg Tablet) 50 mg PO Q4H PRN PRN Reason: anxiety/restlessness Last Admin: 05/25/22 17:52 Dose: 50 mg Tamsulosin HCl (Tamsulosin Hcl 0.4 Mg Capsule) 0.4 mg PO DAILY [facility] Last Admin: 05/26/22 12:35 Dose: 0.4 mg Thiamine HCl (Thiamine Hcl 100 Mg Tablet) 100 mg PO DAILY [facility] Last Admin: 05/26/22 12:37 Dose: 100 mg Trazodone HCl (Trazodone Hcl 100 Mg Tablet) 200 mg PO BEDTIME [facility] Last Admin: 05/25/22 22:29 Dose: 200 mg Allergies Allergies Allergy/AdvReac Type Severity Reaction Status Date / Time No Known Allergies Allergy Verified 05/19/22 12:53 [No Known Allergies*] Assessment & Plan Assessment & Plan (1) Right ureteral stone: Status: Acute Code(s): N20.1 - Calculus of ureter Assessment and Plan: per 05/18 urology note: Imaging reviewed BUN-21 CREAT- 1.32 Continue Flomax Continue PRN oxycodone for pain Discussed importance of increasing/maintaining adequate PO intake Discussed with nursing to strain urine and or have patient utilize urinal to further assess if stone has passed If patient continues with pain and has not been noted to pass stone plan for OR tomorrow for Cystoscopy, ureteroscopy, retrograde, basketing and possible stent placement on the right side with Dr. Murcia. Case discussed. NPO after midnight. (2) Flank pain: Status: Acute Code(s): R10.9 - Unspecified abdominal pain (3) Major depression, recurrent: Status: Acute Code(s): F33.9 - Major depressive disorder, recurrent, unspecified Plan 05/17:? Brian was admitted for safety and stabilization.? He meets criteria for inpatient level of care.? Current medications including Wellbutrin, Seroquel and hydroxyzine were continued.? I added BuSpar 5 mg b.i.d. to be increased over the next several days.? Side effects with regards to dizziness discussed.? Outpatient referrals to be made.? He will meet with his treatment team on 05/18/202205/18:? sofia Mai, seroquel 50 at HS added.? pt will take seroquel 25 PRNs during the day for anxiety.? urological procedure tomorrow to address renal calculus; NPO after MN tonight. 05/19: no changes to medications regimen. procedure 1 pm for definitive Tx of kidney stone. 05/20: ureter stented and stone passed, apparently. remains in pain with dys- and hematuria. per urology PA will need to have stent removed in a week and can expect pain and bleeding until then; they are making an appointment for him. observe for today without making any changes. pt reports his depression and anxiety have not changed since admission. 05/21: c/o ongoing depression without relief, anxiety. now AH starting. agrees to increase HS seroquel to 100 mg, make use of seroquel 25 mg PRNs. stent removal scheduled for 05/27 at 2:45. ongoing pain and bleeding expected to continue through removal of stent. 05/22: more irritable. +SI. weary. increased oxycodone dosing from 7.5 mg to 10 mg each. scheduled oxybutynin 5 TID. increased seroquel PRNs to 50 mg each. increased HS seroquel to 100 mg MR x 1. 05/23: Continue current treatment plan. 05/24: Continue current treatment plan. 05/25: continue current mgmt. add laxatives as pt requests/tolerates. stent revision wed. 05/26: NPO past MN tonight for procedure tomorrow afternoon. declines interview, appears more depressed and withdrawn per staff. Reason for contiued inpatient stay Substantial Risk for: harm to self, inability to function and rapid decompensation Time Spent With Patient Time: Total time managing care of this patient today _20___ minutes.
[2022-05-26] MEDS: bisacodyL 10 MG SUPP.RECT PR (18:57)
[2022-05-26 20:15] VITALS: BP 117/76; PULSE 75; RESP 16; TEMP 36.1; O2SAT 97
[2022-05-26] MEDS: traZODone HCL 100 MG TABLET 200 MG PO (21:09)
[2022-05-26] MEDS: cloNIDine HCL 0.1 MG TABLET 0.3 MG PO (21:09)
[2022-05-26] MEDS: QUEtiapine Fumarate 100 MG TABLET PO (21:10)
[2022-05-27 06:00] VITALS: BP 121/82; PULSE 61; RESP 16; TEMP 36.8; O2SAT 97
[2022-05-27] MEDS: Acetaminophen 325 MG TABLET 650 MG PO (09:25)
[2022-05-27] MEDS: oxyCODONE HCl Immed Release 5 MG TABLET 10 MG PO ×4 (09:25→22:25)
[2022-05-27] MEDS: amLODIPine Besylate 10 MG TABLET PO (09:26)
[2022-05-27] MEDS: buPROPion HCl XL 300 MG TAB.ER.24H PO (09:26)
[2022-05-27] MEDS: Multivitamin TABLET 1 TAB PO (09:26)
[2022-05-27] MEDS: Tamsulosin HCL 0.4 MG CAPSULE PO (09:26)
[2022-05-27] MEDS: Thiamine HCL 100 MG TABLET PO (09:26)
--- NOTE | 2022-05-27 14:16 | P.PNPSI_ITS ---
Subjective Subjective Date of Service: 05/27/22 Reason For Visit: right uretera stone Interim History: calm, cooperative. soft speech, subdued. anxious about procedure today. c/o ongoing constipation, but also reports he has not been eating much to speak of. states he has been having gas. talked to sponsor yesterday and was able to reframe, feeling much less troubled about his addiction, not craving anymore. does say he continues to have SI and AH a little bit. per staff, pleasant. depressed, in pain. denies SI/HI/AVH. eating, sleeping OK. c/o constipation. Mental Status Exam Mental Status Exam Narrative: pt is alert, oriented. Normal speech. Moderate eye contact. Affect is appropriate and subdued, periods of lability with crying. anxiety and depression present. No signs of psychosis. +SI and +AH a little bit. no HI/VH expressed. Cognitively is intact. Judgment is intact Diagnostics Vital Signs (24Hr): Vital Signs - 24 hr 05/26/22 20:15 05/27/22 06:00 Temperature 96.9 F 98.2 F Pulse Rate 75 61 Respiratory Rate 16 16 Blood Pressure 117/76 121/82 Pulse Oximetry 97 97 Oxygen Delivery Method Room Air Room Air BMI result Body Mass Index 23.5 Labs 05/17/22 07:53 05/17/22 07:53 Imaging Radiology Impressions: ITS Impressions Abdomen/Pelvis CT 05/15/22 16:23 IMPRESSION: 5 mm right distal ureteral calculus results in mild asymmetric right hydroureter but no hydronephrosis. Additional tiny nonobstructing bilateral renal calculi are present. Guidance Fluoroscopy 05/19/22 14:52 IMPRESSION: Fluoroscopy provided for the operating room. Please see operative report for additional information. Medications Medications Current Medications Acetaminophen (Acetaminophen 325 Mg Tablet) 650 mg PO Q6H PRN PRN Reason: Headache/Pain Mild Scale (1-3) Last Admin: 05/27/22 09:25 Dose: 650 mg Al Hydroxide/Mg Hydroxide (Magnesium Hydrox/Alum Hydrox 30 Ml Oral.Susp) 30 ml PO Q6H PRN PRN Reason: Heartburn/Nausea Amlodipine Besylate (Amlodipine Besylate 10 Mg Tablet) 10 mg PO DAILY [facility]; Protocol Last Admin: 05/27/22 09:26 Dose: 10 mg Bisacodyl (Bisacodyl 10 Mg Supp.Rect) 10 mg [place] DAILY PRN PRN Reason: Constipation Last Admin: 05/26/22 18:57 Dose: 10 mg Bupropion HCl (Bupropion Hcl Xl 300 Mg Tab.Er.24h) 300 mg PO DAILY [facility] Last Admin: 05/27/22 09:26 Dose: 300 mg Clonidine HCl (Clonidine Hcl 0.1 Mg Tablet) 0.1 mg PO BID PRN; Protocol PRN Reason: Anxiety Clonidine HCl (Clonidine Hcl 0.1 Mg Tablet) 0.3 mg PO BEDTIME [facility] [place]; Protocol Last Admin: 05/26/22 21:09 Dose: 0.3 mg Hydroxyzine HCl (Hydroxyzine Hcl 50 Mg Tablet) 100 mg PO BID PRN PRN Reason: anxiety Last Admin: 05/21/22 20:38 Dose: 100 mg Hydroxyzine HCl (Hydroxyzine Hcl 25 Mg Tablet) 25 mg PO Q6H PRN PRN Reason: Anxiety Last Admin: 05/22/22 01:43 Dose: 25 mg Magnesium Hydroxide (Milk Of Magnesia 30 Ml Oral.Susp) 30 ml PO DAILY PRN PRN Reason: Constipation Multivitamins/Vitamin C (Multivitamin Tablet) 1 tab PO DAILY [facility] [place] Last Admin: 05/27/22 09:26 Dose: 1 tab Nicotine (Nicotine 21 Mg Patch.Td24) 21 mg TRANSDERMA DAILY [facility] [place] Last Admin: 05/27/22 09:26 Dose: Not Given Ondansetron HCl (Ondansetron Odt 4 Mg Tab.Rapdis) 8 mg TRANSLINGU Q6H PRN PRN Reason: nausea Last Admin: 05/21/22 08:29 Dose: 8 mg Oxybutynin Chloride (Oxybutynin Chloride Er 5 Mg Tab.Er.24) 5 mg PO TID [facility] [place] Last Admin: 05/27/22 09:25 Dose: 5 mg Oxycodone HCl (Oxycodone Hcl Immed Release 5 Mg Tablet) 10 mg PO Q4H PRN PRN Reason: Pain, Mild (Pain Scale 7-10) Last Admin: 05/27/22 09:25 Dose: 10 mg Polyethylene Glycol (Polyethylene Glycol 3350 17 Gm Powd.Pack) 17 gm PO BID [facility] [place] Last Admin: 05/27/22 09:26 Dose: Not Given Quetiapine Fumarate (Quetiapine Fumarate 100 Mg Tablet) 100 mg PO BEDTIME [facility] [place] Last Admin: 05/26/22 21:10 Dose: 100 mg Quetiapine Fumarate (Quetiapine Fumarate 100 Mg Tablet) 100 mg PO BEDTIME PRN PRN Reason: Insomnia Quetiapine Fumarate (Quetiapine Fumarate 50 Mg Tablet) 50 mg PO Q4H PRN PRN Reason: anxiety/restlessness Last Admin: 05/25/22 17:52 Dose: 50 mg Tamsulosin HCl (Tamsulosin Hcl 0.4 Mg Capsule) 0.4 mg PO DAILY [facility] [place] Last Admin: 05/27/22 09:26 Dose: 0.4 mg Thiamine HCl (Thiamine Hcl 100 Mg Tablet) 100 mg PO DAILY [facility] [place] Last Admin: 05/27/22 09:26 Dose: 100 mg Trazodone HCl (Trazodone Hcl 100 Mg Tablet) 200 mg PO BEDTIME [facility] [place] Last Admin: 05/26/22 21:09 Dose: 200 mg Allergies Allergies Allergy/AdvReac Type Severity Reaction Status Date / Time No Known Allergies Allergy Verified 05/19/22 12:53 [No Known Allergies*] Assessment & Plan Assessment & Plan (1) Right ureteral stone: Status: Acute Code(s): N20.1 - Calculus of ureter Assessment and Plan: per 05/18 urology note: Imaging reviewed BUN-21 CREAT- 1.32 Continue Flomax Continue PRN oxycodone for pain Discussed importance of increasing/maintaining adequate PO intake Discussed with nursing to strain urine and or have patient utilize urinal to further assess if stone has passed If patient continues with pain and has not been noted to pass stone plan for OR tomorrow for Cystoscopy, ureteroscopy, retrograde, basketing and possible stent placement on the right side with Dr. Murcia. Case discussed. NPO after midnight. (2) Flank pain: Status: Acute Code(s): R10.9 - Unspecified abdominal pain (3) Major depression, recurrent: Status: Acute Code(s): F33.9 - Major depressive disorder, recurrent, unspecified Plan 05/17:? Brian was admitted for safety and stabilization.? He meets criteria for inpatient level of care.? Current medications including Wellbutrin, Seroquel and hydroxyzine were continued.? I added BuSpar 5 mg b.i.d. to be increased over the next several days.? Side effects with regards to dizziness discussed.? Outpat ient referrals to be made.? He will meet with his treatment team on 05/18/202205/18:? buspar DCed, seroquel 50 at HS added.? pt will take seroquel 25 PRNs during the day for anxiety.? urological procedure tomorrow to address renal calculus; NPO after MN tonight. 05/19: no changes to medications regimen. procedure 1 pm for definitive Tx of kidney stone. 05/20: ureter stented and stone passed, apparently. remains in pain with dys- and hematuria. per urology PA will need to have stent removed in a week and can expect pain and bleeding until then; they are making an appointment for him. observe for today without making any changes. pt reports his depression and anxiety have not changed since admission. 05/21: c/o ongoing depression without relief, anxiety. now AH starting. agrees to increase HS seroquel to 100 mg, make use of seroquel 25 mg PRNs. stent removal scheduled for 05/27 at 2:45. ongoing pain and bleeding expected to continue through removal of stent. 05/22: more irritable. +SI. weary. increased oxycodone dosing from 7.5 mg to 10 mg each. scheduled oxybutynin 5 TID. increased seroquel PRNs to 50 mg each. increased HS seroquel to 100 mg MR x 1. 05/23: Continue current treatment plan. 05/24: Continue current treatment plan. 05/25: continue current mgmt. add laxatives as pt requests/tolerates. stent revision weds. 05/26: NPO past MN tonight for procedure tomorrow afternoon. declines interview, appears more depressed and withdrawn per staff. 05/27: anxious re stent removal today. spoke with sponsor and reframed addiction, no longer craving. SI and AH a little bit. Reason for contiued inpatient stay Substantial Risk for: harm to self, inability to function and rapid decompensation Time Spent With Patient Time: Total time managing care of this patient today _25___ minutes.
[2022-05-27 20:55] VITALS: BP 122/77; PULSE 80; RESP 16; TEMP 36.8; O2SAT 96
[2022-05-27] MEDS: polyethylene glycoL 3350 17 GM POWD.PACK PO (21:06)
[2022-05-27] MEDS: cloNIDine HCL 0.1 MG TABLET 0.3 MG PO (21:06)
[2022-05-27] MEDS: traZODone HCL 100 MG TABLET 200 MG PO (21:07)
[2022-05-27] MEDS: QUEtiapine Fumarate 100 MG TABLET PO (21:08)
[2022-05-28] MEDS: oxyCODONE HCl Immed Release 5 MG TABLET 10 MG PO ×4 (06:44→20:35)
[2022-05-28 09:00] VITALS: BP 127/84; PULSE 84; RESP 16; TEMP 36.4; O2SAT 97
[2022-05-28] MEDS: hydrOXYzine HCL 50 MG TABLET 100 MG PO (09:27)
[2022-05-28 11:00] VITALS: BP 126/83; PULSE 83; RESP 16; TEMP 36.8; O2SAT 98
[2022-05-28] MEDS: Nicotine 21 MG PATCH.TD24 TRANSDERMA (11:00)
[2022-05-28] MEDS: amLODIPine Besylate 10 MG TABLET PO (11:13)
[2022-05-28] MEDS: polyethylene glycoL 3350 17 GM POWD.PACK PO (11:14)
[2022-05-28] MEDS: Tamsulosin HCL 0.4 MG CAPSULE PO (11:14)
[2022-05-28] MEDS: Thiamine HCL 100 MG TABLET PO (11:14)
[2022-05-28] MEDS: Multivitamin TABLET 1 TAB PO (11:14)
[2022-05-28] MEDS: buPROPion HCl XL 300 MG TAB.ER.24H PO (11:14)
--- NOTE | 2022-05-28 14:55 | P.PNPSI_ITS ---
Subjective Subjective Date of Service: 05/28/22 Reason For Visit: right uretera stone Interim History: due to scheduling snafu, pt did not have his stents removed yesterday. he has been rescheduled for tomorrow, to be NPO after midnight. despite this setback, he appears better today than earlier in the week. c/o ongoing pain and anxiety, but affect is a bit brighter and more flexible. sleeping better. no appetite, however, and not passing stool, only flatus. will check KUB. per staff, isolative, withdrawn. poor PO intake. safe. pleasant eves, slept poorly. anx/dep 3/10. Mental Status Exam Mental Status Exam Narrative: pt is alert, oriented. Normal speech. Moderate eye contact. Affect is appropriate and subdued, non-labile, normo-intense. anxiety present. No signs of psychosis. no SI/HI/AVH expressed. Cognitively is intact. Judgment is intact Diagnostics Vital Signs (24Hr): Vital Signs - 24 hr 05/27/22 20:55 05/28/22 09:00 05/28/22 11:00 Temperature 98.3 F 97.6 F 98.2 F Pulse Rate 80 84 83 Respiratory Rate 16 16 16 Blood Pressure 122/77 127/84 126/83 Pulse Oximetry 96 97 98 Oxygen Delivery Method Room Air Room Air Room Air BMI result Body Mass Index 23.5 Labs 05/17/22 07:53 05/17/22 07:53 Imaging Radiology Impressions: ITS Impressions Abdomen/Pelvis CT 05/15/22 16:23 IMPRESSION: 5 mm right distal ureteral calculus results in mild asymmetric right hydroureter but no hydronephrosis. Additional tiny nonobstructing bilateral renal calculi are present. Guidance Fluoroscopy 05/19/22 14:52 IMPRESSION: Fluoroscopy provided for the operating room. Please see operative report for additional information. Medications Medications Current Medications Acetaminophen (Acetaminophen 325 Mg Tablet) 650 mg PO Q6H PRN PRN Reason: Headache/Pain Mild Scale (1-3) Last Admin: 05/27/22 09:25 Dose: 650 mg Al Hydroxide/Mg Hydroxide (Magnesium Hydrox/Alum Hydrox 30 Ml Oral.Susp) 30 ml PO Q6H PRN PRN Reason: Heartburn/Nausea Amlodipine Besylate (Amlodipine Besylate 10 Mg Tablet) 10 mg PO DAILY [facility]; Protocol Last Admin: 05/28/22 11:13 Dose: 10 mg Bisacodyl (Bisacodyl 10 Mg Supp.Rect) 10 mg [place] DAILY PRN PRN Reason: Constipation Last Admin: 05/26/22 18:57 Dose: 10 mg Bupropion HCl (Bupropion Hcl Xl 300 Mg Tab.Er.24h) 300 mg PO DAILY [facility] Last Admin: 05/28/22 11:14 Dose: 300 mg Clonidine HCl (Clonidine Hcl 0.1 Mg Tablet) 0.1 mg PO BID PRN; Protocol PRN Reason: Anxiety Clonidine HCl (Clonidine Hcl 0.1 Mg Tablet) 0.3 mg PO BEDTIME [facility]; Protocol Last Admin: 05/27/22 21:06 Dose: 0.3 mg Hydroxyzine HCl (Hydroxyzine Hcl 50 Mg Tablet) 100 mg PO BID PRN PRN Reason: anxiety Last Admin: 05/28/22 09:27 Dose: 100 mg Hydroxyzine HCl (Hydroxyzine Hcl 25 Mg Tablet) 25 mg PO Q6H PRN PRN Reason: Anxiety Last Admin: 05/22/22 01:43 Dose: 25 mg Magnesium Hydroxide (Milk Of Magnesia 30 Ml Oral.Susp) 30 ml PO DAILY PRN PRN Reason: Constipation Multivitamins/Vitamin C (Multivitamin Tablet) 1 tab PO DAILY [facility] Last Admin: 05/28/22 11:14 Dose: 1 tab Nicotine (Nicotine 21 Mg Patch.Td24) 21 mg TRANSDERMA DAILY [facility] Last Admin: 05/28/22 11:18 Dose: Not Given Ondansetron HCl (Ondansetron Odt 4 Mg Tab.Rapdis) 8 mg TRANSLINGU Q6H PRN PRN Reason: nausea Last Admin: 05/21/22 08:29 Dose: 8 mg Oxybutynin Chloride (Oxybutynin Chloride Er 5 Mg Tab.Er.24) 5 mg PO TID [facility] Last Admin: 05/28/22 11:14 Dose: 5 mg Oxycodone HCl (Oxycodone Hcl Immed Release 5 Mg Tablet) 10 mg PO Q4H PRN PRN Reason: Pain, Mild (Pain Scale 7-10) Last Admin: 05/28/22 11:13 Dose: 10 mg Polyethylene Glycol (Polyethylene Glycol 3350 17 Gm Powd.Pack) 17 gm PO BID [facility] Last Admin: 05/28/22 11:14 Dose: 17 gm Quetiapine Fumarate (Quetiapine Fumarate 100 Mg Tablet) 100 mg PO BEDTIME [facility] Last Admin: 05/27/22 21:08 Dose: 100 mg Quetiapine Fumarate (Quetiapine Fumarate 100 Mg Tablet) 100 mg PO BEDTIME PRN PRN Reason: Insomnia Quetiapine Fumarate (Quetiapine Fumarate 50 Mg Tablet) 50 mg PO Q4H PRN PRN Reason: anxiety/restlessness Last Admin: 05/25/22 17:52 Dose: 50 mg Tamsulosin HCl (Tamsulosin Hcl 0.4 Mg Capsule) 0.4 mg PO DAILY [facility] Last Admin: 05/28/22 11:14 Dose: 0.4 mg Thiamine HCl (Thiamine Hcl 100 Mg Tablet) 100 mg PO DAILY [facility] Last Admin: 05/28/22 11:14 Dose: 100 mg Trazodone HCl (Trazodone Hcl 100 Mg Tablet) 200 mg PO BEDTIME [facility] Last Admin: 05/27/22 21:07 Dose: 200 mg Allergies Allergies Allergy/AdvReac Type Severity Reaction Status Date / Time No Known Allergies Allergy Verified 05/28/22 10:13 [No Known Allergies*] Assessment & Plan Assessment & Plan (1) Right ureteral stone: Status: Acute Code(s): N20.1 - Calculus of ureter Assessment and Plan: per 05/18 urology note: Imaging reviewed BUN-21 CREAT- 1.32 Continue Flomax Continue PRN oxycodone for pain Discussed importance of increasing/maintaining adequate PO intake Discussed with nursing to strain urine and or have patient utilize urinal to further assess if stone has passed If patient continues with pain and has not been noted to pass stone plan for OR tomorrow for Cystoscopy, ureteroscopy, retrograde, basketing and possible stent placement on the right side with Dr. Murcia. Case discussed. NPO after midnight. (2) Flank pain: Status: Acute Code(s): R10.9 - Unspecified abdominal pain (3) Major depression, recurrent: Status: Acute Code(s): F33.9 - Major depressive disorder, recurrent, unspecified Plan 05/17:? Brian was admitted for safety and stabilization.? He meets criteria for inpatient level of care.? Current medications including Wellbutrin, Seroquel and hydroxyzine were continued.? I added BuSpar 5 mg b.i.d. to be increased over the next several days.? Side effects with regards to dizziness discussed.? Outpatient referrals to be made.? He will meet with his treatment team on 05/18/202205/18:? busfarhad Gallegosd, seroquel 50 at HS added.? pt will take seroquel 25 PRNs during the day for anxiety.? urological procedure tomorrow to address renal calculus; NPO after MN tonight. 05/19: no changes to medications regimen. procedure 1 pm for definitive Tx of kidney stone. 05/20: ureter stented and stone passed, apparently. remains in pain with dys- and hematuria. per urology PA will need to have stent removed in a week and can expect pain and bleeding until then; they are making an appointment for him. observe for today without making any changes. pt reports his depression and anxiety have not changed since admission. 05/21: c/o ongoing depression without relief, anxiety. now AH starting. agrees to increase HS seroquel to 100 mg, make use of seroquel 25 mg PRNs. stent removal scheduled for 05/27 at 2:45. ongoing pain and bleeding expected to continue through removal of stent. 05/22: more irritable. +SI. weary. increased oxycodone dosing from 7.5 mg to 10 mg each. scheduled oxybutynin 5 TID. increased seroquel PRNs to 50 mg each. increased HS seroquel to 100 mg MR x 1. 05/23: Continue current treatment plan. 05/24: Continue current treatment plan. 05/25: continue current mgmt. add laxatives as pt requests/tolerates. stent revision weds. 05/26: NPO past MN tonight for procedure tomorrow afternoon. declines interview, appears more depressed and withdrawn per staff. 05/27: anxious re stent removal today. spoke with sponsor and reframed addiction, no longer craving. SI and AH a little bit. 05/28: procedure rescheduled for tomorrow in OR. more flexible and slightly brighter affect. Reason for contiued inpatient stay Substantial Risk for: harm to self, inability to function and rapid decompensation Time Spent With Patient Time: Total time managing care of this patient today __25__ minutes.
[2022-05-28] MEDS: QUEtiapine Fumarate 50 MG TABLET PO (16:16)
[2022-05-28 19:24] VITALS: BP 136/88; PULSE 84; RESP 20; TEMP 37; O2SAT 95
[2022-05-28 20:27] VITALS: BP 121/78; PULSE 74; TEMP 36.7; O2SAT 95
[2022-05-28] MEDS: QUEtiapine Fumarate 100 MG TABLET PO ×2 (20:35→22:24)
[2022-05-28] MEDS: cloNIDine HCL 0.1 MG TABLET 0.3 MG PO (20:35)
[2022-05-28] MEDS: traZODone HCL 100 MG TABLET 200 MG PO (20:35)
[2022-05-28] MEDS: Acetaminophen 325 MG TABLET 650 MG PO (22:23)
[2022-05-29] MEDS: oxyCODONE HCl Immed Release 5 MG TABLET 10 MG PO ×3 (06:33→20:07)
--- NOTE | 2022-05-29 06:38 | PC.NURSE ---
NPO--has remained NPO for procedure with the exception OF 15 CC of water when administered pain medication @ [id number]
[2022-05-29 08:00] VITALS: BP 92/54; PULSE 50; TEMP 36.2; O2SAT 97
[2022-05-29] MEDS: Tamsulosin HCL 0.4 MG CAPSULE PO (09:09)
[2022-05-29] MEDS: buPROPion HCl XL 300 MG TAB.ER.24H PO (09:10)
[2022-05-29] MEDS: Thiamine HCL 100 MG TABLET PO (09:11)
[2022-05-29] MEDS: Multivitamin TABLET 1 TAB PO (09:11)
[2022-05-29 10:25] VITALS: BP 108/67; PULSE 60; RESP 18; TEMP 36.6; O2SAT 98
[2022-05-29 13:40] VITALS: BP 109/67; PULSE 60; RESP 18; TEMP 36.5; O2SAT 98
[2022-05-29] MEDS: Nicotine 21 MG PATCH.TD24 TRANSDERMA (14:05)
--- NOTE | 2022-05-29 14:06 | PC.NURSE ---
Received Pt from PACU alert and oriented x4. Pt in wheelchair back to M-3. VSS He rates his pain 8/10, pain med given n PACU prior to transfer to our floor. Pt given hat to urinate in , will notify staff once voided.
--- NOTE | 2022-05-29 15:17 | HO.PSYCHPN ---
Subjective Subjective Date of Service: 05/29/22 Reason For Visit: right uretera stone Interim History: pt seen both in the morning and in the afternoon. in morning appeared hopeful of getting stent out today. just feeling in pain and anxious about the procedure. seen in the afternoon, post-procedure, states the pain has started to come down already, a bit. will check in tomorrow for next steps. per staff, surgery today at noon. pleasant. mod anx/dep. no SI/HI/AVH. not attending groups. safe. poor sleep 2/2 pain. appears to sleep per staff observation, however. Mental Status Exam Mental Status Exam Narrative: pt is alert, oriented. Normal speech. Moderate eye contact. Affect is appropriate and subdued, non-labile, normo-intense. anxiety present. No signs of psychosis. no SI/HI/AVH expressed. Cognitively is intact. Judgment is intact Diagnostics Vital Signs (24Hr): Vital Signs - 24 hr 05/28/22 19:24 05/28/22 20:27 05/29/22 08:00 Temperature 98.6 F 98.1 F 97.2 F Pulse Rate 84 74 50 Respiratory Rate 20 Blood Pressure 136/88 121/78 92/54 L Pulse Oximetry 95 95 97 Oxygen Delivery Method Room Air Room Air Room Air 05/29/22 10:25 05/29/22 13:40 Temperature 97.8 F 97.7 F Pulse Rate 60 60 Respiratory Rate 18 18 Blood Pressure 108/67 109/67 Pulse Oximetry 98 98 Oxygen Delivery Method Room Air Room Air BMI result Body Mass Index 23.5 Labs 05/17/22 07:53 05/17/22 07:53 Imaging Radiology Impressions: ITS Impressions Abdomen/Pelvis CT 05/15/22 16:23 IMPRESSION: 5 mm right distal ureteral calculus results in mild asymmetric right hydroureter but no hydronephrosis. Additional tiny nonobstructing bilateral renal calculi are present. Guidance Fluoroscopy 05/19/22 14:52 IMPRESSION: Fluoroscopy provided for the operating room. Please see operative report for additional information. KUB X-Ray 05/28/22 13:03 IMPRESSION: * Nonobstructive bowel gas pattern. Mild colonic stool burden. Medications Medications Current Medications Acetaminophen (Acetaminophen 325 Mg Tablet) 650 mg PO Q6H PRN PRN Reason: Headache/Pain Mild Scale (1-3) Last Admin: 05/28/22 22:23 Dose: 650 mg Al Hydroxide/Mg Hydroxide (Magnesium Hydrox/Alum Hydrox 30 Ml Oral.Susp) 30 ml PO Q6H PRN PRN Reason: Heartburn/Nausea Amlodipine Besylate (Amlodipine Besylate 10 Mg Tablet) 10 mg PO DAILY [facility]; Protocol Last Admin: 05/29/22 09:18 Dose: Not Given Bisacodyl (Bisacodyl 10 Mg Supp.Rect) 10 mg [place] DAILY PRN PRN Reason: Constipation Last Admin: 05/26/22 18:57 Dose: 10 mg Bupropion HCl (Bupropion Hcl Xl 300 Mg Tab.Er.24h) 300 mg PO DAILY [facility] Last Admin: 05/29/22 09:10 Dose: 300 mg Clonidine HCl (Clonidine Hcl 0.1 Mg Tablet) 0.1 mg PO BID PRN; Protocol PRN Reason: Anxiety Clonidine HCl (Clonidine Hcl 0.1 Mg Tablet) 0.3 mg PO BEDTIME [facility]; Protocol Last Admin: 05/28/22 20:35 Dose: 0.3 mg Hydroxyzine HCl (Hydroxyzine Hcl 50 Mg Tablet) 100 mg PO BID PRN PRN Reason: anxiety Last Admin: 05/28/22 09:27 Dose: 100 mg Hydroxyzine HCl (Hydroxyzine Hcl 25 Mg Tablet) 25 mg PO Q6H PRN PRN Reason: Anxiety Last Admin: 05/22/22 01:43 Dose: 25 mg Magnesium Hydroxide (Milk Of Magnesia 30 Ml Oral.Susp) 30 ml PO DAILY PRN PRN Reason: Constipation Multivitamins/Vitamin C (Multivitamin Tablet) 1 tab PO DAILY [facility] Last Admin: 05/29/22 09:11 Dose: 1 tab Nicotine (Nicotine 21 Mg Patch.Td24) 21 mg TRANSDERMA DAILY [facility] Last Admin: 05/29/22 14:05 Dose: 21 mg Ondansetron HCl (Ondansetron Odt 4 Mg Tab.Rapdis) 8 mg TRANSLINGU Q6H PRN PRN Reason: nausea Last Admin: 05/21/22 08:29 Dose: 8 mg Oxybutynin Chloride (Oxybutynin Chloride Er 5 Mg Tab.Er.24) 5 mg PO TID [facility] Last Admin: 05/29/22 14:32 Dose: 5 mg Oxycodone HCl (Oxycodone Hcl Immed Release 5 Mg Tablet) 10 mg PO Q4H PRN PRN Reason: Pain, Mild (Pain Scale 7-10) Last Admin: 05/29/22 06:33 Dose: 10 mg Polyethylene Glycol (Polyethylene Glycol 3350 17 Gm Powd.Pack) 17 gm PO BID [facility] Last Admin: 05/29/22 10:06 Dose: Not Given Quetiapine Fumarate (Quetiapine Fumarate 100 Mg Tablet) 100 mg PO BEDTIME [facility] Last Admin: 05/28/22 20:35 Dose: 100 mg Quetiapine Fumarate (Quetiapine Fumarate 100 Mg Tablet) 100 mg PO BEDTIME PRN PRN Reason: Insomnia Last Admin: 05/28/22 22:24 Dose: 100 mg Quetiapine Fumarate (Quetiapine Fumarate 50 Mg Tablet) 50 mg PO Q4H PRN PRN Reason: anxiety/restlessness Last Admin: 05/28/22 16:16 Dose: 50 mg Tamsulosin HCl (Tamsulosin Hcl 0.4 Mg Capsule) 0.4 mg PO DAILY [facility] Last Admin: 05/29/22 09:09 Dose: 0.4 mg Thiamine HCl (Thiamine Hcl 100 Mg Tablet) 100 mg PO DAILY [facility] Last Admin: 05/29/22 09:11 Dose: 100 mg Trazodone HCl (Trazodone Hcl 100 Mg Tablet) 200 mg PO BEDTIME [facility] Last Admin: 05/28/22 20:35 Dose: 200 mg Allergies Allergies Allergy/AdvReac Type Severity Reaction Status Date / Time haloperidol [From Haldol] AdvReac see note Verified 05/29/22 11:52 Assessment & Plan Assessment & Plan (1) Right ureteral stone: Status: Acute Code(s): N20.1 - Calculus of ureter Assessment and Plan: per 05/18 urology note: Imaging reviewed BUN-21 CREAT- 1.32 Continue Flomax Continue PRN oxycodone for pain Discussed importance of increasing/maintaining adequate PO intake Discussed with nursing to strain urine and or have patient utilize urinal to further assess if stone has passed If patient continues with pain and has not been noted to pass stone plan for OR tomorrow for Cystoscopy, ureteroscopy, retrograde, basketing and possible stent placement on the right side with Dr. Murcia. Case discussed. NPO after midnight. (2) Flank pain: Status: Acute Code(s): R10.9 - Unspecified abdominal pain (3) Major depression, recurrent: Status: Acute Code(s): F33.9 - Major depressive disorder, recurrent, unspecified Plan 05/17:? Brian was admitted for safety and stabilization.? He meets criteria for inpatient level of care.? Current medications including Wellbutrin, Seroquel and hydroxyzine were continued.? I added BuSpar 5 mg b.i.d. to be increased over the next several days.? Side effects with regards to dizziness discussed.? Outpatient referrals to be made.? He will meet with his treatment team on 05/18/202205/18:? buspar DCed, seroquel 50 at HS added.? pt will take seroquel 25 PRNs during the day for anxiety.? urological procedure tomorrow to address renal calculus; NPO after MN tonight. 05/19: no changes to medications regimen. procedure 1 pm for definitive Tx of kidney stone. 05/20: ureter stented and stone passed, apparently. remains in pain with dys- and hematuria. per urology PA will need to have stent removed in a week and can expect pain and bleeding until then; they are making an appointment for him. observe for today without making any changes. pt reports his depression and anxiety have not changed since admission. 05/21: c/o ongoing depression without relief, anxiety. now AH starting. agrees to increase HS seroquel to 100 mg, make use of seroquel 25 mg PRNs. stent removal scheduled for 05/27 at 2:45. ongoing pain and bleeding expected to continue through removal of stent. 05/22: more irritable. +SI. weary. increased oxycodone dosing from 7.5 mg to 10 mg each. scheduled oxybutynin 5 TID. increased seroquel PRNs to 50 mg each. increased HS seroquel to 100 mg MR x 1. 05/23: Continue current treatment plan. 05/24: Continue current treatment plan. 05/25: continue current mgmt. add laxatives as pt requests/tolerates. stent revision weds. 05/26: NPO past MN tonight for procedure tomorrow afternoon. declines interview, appears more depressed and withdrawn per staff. 05/27: anxious re stent removal today. spoke with sponsor and reframed addiction, no longer craving. SI and AH a little bit. 2/2: procedure rescheduled for tomorrow in OR. more flexible and slightly brighter affect. 2/3: procedure completed, pain beginning to subside. will check in again tomorrow re psych med changes. Reason for contiued inpatient stay Substantial Risk for: harm to self, inability to function and rapid decompensation Time Spent With Patient Time: Total time managing care of this patient today __25__ minutes.
--- NOTE | 2022-05-29 16:18 | PC.NURSE ---
Pt voided 100cc dark yellow urine , and what appeared to be 3 dark calcifications. Pt retrieved them out of urine hat and placed them in toilet paper i want to keep them
[2022-05-29 22:23] VITALS: BP 135/83; PULSE 70; RESP 18; TEMP 37; O2SAT 97
[2022-05-29] MEDS: polyethylene glycoL 3350 17 GM POWD.PACK PO (22:25)
[2022-05-29] MEDS: cloNIDine HCL 0.1 MG TABLET 0.3 MG PO (22:26)
[2022-05-29] MEDS: QUEtiapine Fumarate 100 MG TABLET PO ×2 (22:26)
[2022-05-29] MEDS: traZODone HCL 100 MG TABLET 200 MG PO (22:26)
[2022-05-29] MEDS: hydrOXYzine HCL 50 MG TABLET 100 MG PO (22:28)
[2022-05-30] MEDS: oxyCODONE HCl Immed Release 5 MG TABLET 10 MG PO ×2 (03:10→09:25)
[2022-05-30 06:00] VITALS: BP 136/79; PULSE 61; RESP 16; TEMP 36.8; O2SAT 97
[2022-05-30] MEDS: Tamsulosin HCL 0.4 MG CAPSULE PO (09:25)
[2022-05-30] MEDS: Multivitamin TABLET 1 TAB PO (09:25)
[2022-05-30] MEDS: Thiamine HCL 100 MG TABLET PO (09:25)
[2022-05-30] MEDS: Acetaminophen 325 MG TABLET 650 MG PO (09:25)
[2022-05-30] MEDS: buPROPion HCl XL 300 MG TAB.ER.24H PO (09:25)
[2022-05-30] MEDS: amLODIPine Besylate 10 MG TABLET PO (09:25)
[2022-05-30] MEDS: Nicotine 21 MG PATCH.TD24 TRANSDERMA (09:25)
[2022-05-30] MEDS: polyethylene glycoL 3350 17 GM POWD.PACK PO (09:26)
--- NOTE | 2022-05-30 13:52 | HO.PSYCHPN ---
Subjective Subjective Date of Service: 05/30/22 Reason For Visit: right uretera stone Interim History: sleeping midday, rousable to voice. calm, cooperative. reports having passed several stones since the stent was removed. pain continues but lessened slightly. burning with urination. agreeable to decrease oxycodone PRNs from 10 mg each to 7.5 mg each. agreeable to discharge wednesday. mood still anxious and depressed, but beter than it had been. denies SI. Mental Status Exam Mental Status Exam Narrative: pt is alert, oriented. Normal speech. Moderate eye contact. Affect is appropriate and subdued, non-labile, normo-intense. anxiety and depression present. No signs of psychosis. no SI. no HI/AVH expressed. Cognitively is intact. Judgment is intact Diagnostics Vital Signs (24Hr): Vital Signs - 24 hr 05/29/22 22:23 05/30/22 06:00 Temperature 98.6 F 98.2 F Pulse Rate 70 61 Respiratory Rate 18 16 Blood Pressure 135/83 136/79 Pulse Oximetry 97 97 Oxygen Delivery Method Room Air Room Air BMI result Body Mass Index 23.5 Labs 05/17/22 07:53 05/17/22 07:53 Imaging Radiology Impressions: ITS Impressions Abdomen/Pelvis CT 05/15/22 16:23 IMPRESSION: 5 mm right distal ureteral calculus results in mild asymmetric right hydroureter but no hydronephrosis. Additional tiny nonobstructing bilateral renal calculi are present. Guidance Fluoroscopy 05/19/22 14:52 IMPRESSION: Fluoroscopy provided for the operating room. Please see operative report for additional information. KUB X-Ray 05/28/22 13:03 IMPRESSION: * Nonobstructive bowel gas pattern. Mild colonic stool burden. Medications Medications Current Medications Acetaminophen (Acetaminophen 325 Mg Tablet) 975 mg PO QID [facility] Al Hydroxide/Mg Hydroxide (Magnesium Hydrox/Alum Hydrox 30 Ml Oral.Susp) 30 ml PO Q6H PRN PRN Reason: Heartburn/Nausea Amlodipine Besylate (Amlodipine Besylate 10 Mg Tablet) 10 mg PO DAILY [facility]; Protocol Last Admin: 05/30/22 09:25 Dose: 10 mg Bisacodyl (Bisacodyl 10 Mg Supp.Rect) 10 mg [place] DAILY PRN PRN Reason: Constipation Last Admin: 05/26/22 18:57 Dose: 10 mg Bupropion HCl (Bupropion Hcl Xl 300 Mg Tab.Er.24h) 300 mg PO DAILY [facility] Last Admin: 05/30/22 09:25 Dose: 300 mg Clonidine HCl (Clonidine Hcl 0.1 Mg Tablet) 0.1 mg PO BID PRN; Protocol PRN Reason: Anxiety Clonidine HCl (Clonidine Hcl 0.1 Mg Tablet) 0.3 mg PO BEDTIME [facility]; Protocol Last Admin: 05/29/22 22:26 Dose: 0.3 mg Hydroxyzine HCl (Hydroxyzine Hcl 50 Mg Tablet) 100 mg PO BID PRN PRN Reason: anxiety Last Admin: 05/29/22 22:28 Dose: 100 mg Hydroxyzine HCl (Hydroxyzine Hcl 25 Mg Tablet) 25 mg PO Q6H PRN PRN Reason: Anxiety Last Admin: 05/22/22 01:43 Dose: 25 mg Magnesium Hydroxide (Milk Of Magnesia 30 Ml Oral.Susp) 30 ml PO DAILY PRN PRN Reason: Constipation Multivitamins/Vitamin C (Multivitamin Tablet) 1 tab PO DAILY [facility] Last Admin: 05/30/22 09:25 Dose: 1 tab Nicotine (Nicotine 21 Mg Patch.Td24) 21 mg TRANSDERMA DAILY [facility] Last Admin: 05/30/22 09:25 Dose: 21 mg Ondansetron HCl (Ondansetron Odt 4 Mg Tab.Rapdis) 8 mg TRANSLINGU Q6H PRN PRN Reason: nausea Last Admin: 05/21/22 08:29 Dose: 8 mg Oxybutynin Chloride (Oxybutynin Chloride Er 5 Mg Tab.Er.24) 5 mg PO TID [facility] Last Admin: 05/30/22 09:26 Dose: 5 mg Oxycodone HCl (Oxycodone Hcl Immed Release 5 Mg Tablet) 7.5 mg PO Q4H PRN PRN Reason: Pain, Mild (Pain Scale 7-10) Polyethylene Glycol (Polyethylene Glycol 3350 17 Gm Powd.Pack) 17 gm PO BID [facility] Last Admin: 05/30/22 09:26 Dose: 17 gm Quetiapine Fumarate (Quetiapine Fumarate 100 Mg Tablet) 100 mg PO BEDTIME [facility] Last Admin: 05/29/22 22:26 Dose: 100 mg Quetiapine Fumarate (Quetiapine Fumarate 100 Mg Tablet) 100 mg PO BEDTIME PRN PRN Reason: Insomnia Last Admin: 05/29/22 22:26 Dose: 100 mg Quetiapine Fumarate (Quetiapine Fumarate 50 Mg Tablet) 50 mg PO Q4H PRN PRN Reason: anxiety/restlessness Last Admin: 05/28/22 16:16 Dose: 50 mg Tamsulosin HCl (Tamsulosin Hcl 0.4 Mg Capsule) 0.4 mg PO DAILY [facility] Last Admin: 05/30/22 09:25 Dose: 0.4 mg Thiamine HCl (Thiamine Hcl 100 Mg Tablet) 100 mg PO DAILY [facility] Last Admin: 05/30/22 09:25 Dose: 100 mg Trazodone HCl (Trazodone Hcl 100 Mg Tablet) 200 mg PO BEDTIME [facility] Last Admin: 05/29/22 22:26 Dose: 200 mg Allergies Allergies Allergy/AdvReac Type Severity Reaction Status Date / Time haloperidol [From Haldol] AdvReac see note Verified 05/29/22 11:52 Assessment & Plan Assessment & Plan (1) Right ureteral stone: Status: Acute Code(s): N20.1 - Calculus of ureter Assessment and Plan: per 05/18 urology note: Imaging reviewed BUN-21 CREAT- 1.32 Continue Flomax Continue PRN oxycodone for pain Discussed importance of increasing/maintaining adequate PO intake Discussed with nursing to strain urine and or have patient utilize urinal to further assess if stone has passed If patient continues with pain and has not been noted to pass stone plan for OR tomorrow for Cystoscopy, ureteroscopy, retrograde, basketing and possible stent placement on the right side with Dr. Murcia. Case discussed. NPO after midnight. (2) Flank pain: Status: Acute Code(s): R10.9 - Unspecified abdominal pain (3) Major depression, recurrent: Status: Acute Code(s): F33.9 - Major depressive disorder, recurrent, unspecified Plan 05/17:? Brian was admitted for safety and stabilization.? He meets criteria for inpatient level of care.? Current medications including Wellbutrin, Seroquel and hydroxyzine were continued.? I added BuSpar 5 mg b.i.d. to be increased over the next several days.? Side effects with regards to dizziness discussed.? Outpatient referrals to be made.? He will meet with his treatment team on 05/18/202205/18:? buspar DCed, seroquel 50 at HS added.? pt will take seroquel 25 PRNs during the day for anxiety.? urological procedure tomorrow to address renal calculus; NPO after MN tonight. 05/19: no changes to medications regimen. procedure 1 pm for definitive Tx of kidney stone. 05/20: ureter stented and stone passed, apparently. remains in pain with dys- and hematuria. per urology PA will need to have stent removed in a week and can expect pain and bleeding until then; they are making an appointment for him. observe for today without making any changes. pt reports his depression and anxiety have not changed since admission. 05/21: c/o ongoing depression without relief, anxiety. now AH starting. agrees to increase HS seroquel to 100 mg, make use of seroquel 25 mg PRNs. stent removal scheduled for 05/27 at 2:45. ongoing pain and bleeding expected to continue through removal of stent. 05/22: more irritable. +SI. weary. increased oxycodone dosing from 7.5 mg to 10 mg each. scheduled oxybutynin 5 TID. increased seroquel PRNs to 50 mg each. increased HS seroquel to 100 mg MR x 1. 05/23: Continue current treatment plan. 05/24: Continue current treatment plan. 05/25: continue current mgmt. add laxatives as pt requests/tolerates. stent revision wed. 05/26: NPO past MN tonight for procedure tomorrow afternoon. declines interview, appears more depressed and withdrawn per staff. 05/27: anxious re stent removal today. spoke with sponsor and reframed addiction, no longer craving. SI and AH a little bit. 05/28: procedure rescheduled for tomorrow in OR. more flexible and slightly brighter affect. 2: procedure completed, pain beginning to subside. will check in again tomorrow re psych med changes. 05/30: no change in pain from yesterday. decrease oxycodone PRNs to 7.5 mg each. schedule tylenol 975 QID for now. planning for wednesday discharge. Reason for contiued inpatient stay Substantial Risk for: harm to self, inability to function and rapid decompensation Time Spent With Patient Time: Total time managing care of this patient today ____ minutes.
[2022-05-30] MEDS: Acetaminophen 325 MG TABLET 975 MG PO ×3 (14:09→22:55)
[2022-05-30] MEDS: oxyCODONE HCl Immed Release 5 MG TABLET 7.5 MG PO ×3 (14:09→22:55)
[2022-05-30] MEDS: QUEtiapine Fumarate 50 MG TABLET PO (18:14)
[2022-05-30] MEDS: hydrOXYzine HCL 25 MG TABLET PO (18:14)
[2022-05-30 22:40] VITALS: BP 116/66; PULSE 56; RESP 16; TEMP 36.4; O2SAT 97
[2022-05-30] MEDS: hydrOXYzine HCL 50 MG TABLET 100 MG PO (22:53)
[2022-05-30] MEDS: traZODone HCL 100 MG TABLET 200 MG PO (22:54)
[2022-05-30] MEDS: QUEtiapine Fumarate 100 MG TABLET PO (22:54)
[2022-05-31 06:00] VITALS: BP 128/78; PULSE 63; RESP 16; TEMP 36.6; O2SAT 98
[2022-05-31] MEDS: oxyCODONE HCl Immed Release 5 MG TABLET 7.5 MG PO (10:46)
[2022-05-31] MEDS: Tamsulosin HCL 0.4 MG CAPSULE PO (10:47)
[2022-05-31] MEDS: amLODIPine Besylate 10 MG TABLET PO (10:47)
[2022-05-31] MEDS: Thiamine HCL 100 MG TABLET PO (10:48)
[2022-05-31] MEDS: Multivitamin TABLET 1 TAB PO (10:49)
[2022-05-31] MEDS: buPROPion HCl XL 300 MG TAB.ER.24H PO (10:49)
[2022-05-31] MEDS: Nicotine 21 MG PATCH.TD24 TRANSDERMA (10:50)
[2022-05-31] MEDS: oxyCODONE HCl Immed Release 5 MG TABLET PO ×2 (14:13→20:31)
[2022-05-31] MEDS: QUEtiapine Fumarate 50 MG TABLET PO (14:13)
[2022-05-31] MEDS: Acetaminophen 325 MG TABLET 975 MG PO ×2 (14:13→20:31)
[2022-05-31] MEDS: hydrOXYzine HCL 25 MG TABLET PO (14:13)
--- NOTE | 2022-05-31 16:09 | HO.PSYCHPN ---
Subjective Subjective Date of Service: 05/31/22 Reason For Visit: right uretera stone Interim History: tells MD he has been lying to MD. states if he is discharged from hospital he will go to [facility] for admission as he is not feeling safe. he has been thinking a lot about getting heroin and intentionally overdosing. not craving, but to kill himself. experiencing lots of anxiety and depression. he does report starting to sleep a bit better. ruminating on , becomes labile and tearful, near wailing again today when broaching the matter. eating very little losing lots of weight. 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 he is interested in ECT once again due to his dire circumstance. asking for increase in seroquel at for sleep and anxiety, also during day. instructed to complete [facility] for [facility] to access ECT records. per staff, no SI/HI/AVH. occasional AH. eating better today. clonidine held last NOC due to bradycardia. slept from midnight on. Mental Status Exam Mental Status Exam Narrative: pt is alert, oriented. Normal speech. Moderate eye contact. Affect is appropriate, labile, hyper-intense. anxiety and depression present. No signs of psychosis. +SI. no HI/AVH expressed. Cognitively is intact. Judgment is intact Diagnostics Vital Signs (24Hr): Vital Signs - 24 hr 05/30/22 22:40 05/31/22 06:00 Temperature 97.6 F 97.8 F Pulse Rate 56 63 Respiratory Rate 16 16 Blood Pressure 116/66 128/78 Pulse Oximetry 97 98 Oxygen Delivery Method Room Air Room Air BMI result Body Mass Index 23.5 Labs 05/17/22 07:53 05/17/22 07:53 Imaging Radiology Impressions: ITS Impressions Abdomen/Pelvis CT 05/15/22 16:23 IMPRESSION: 5 mm right distal ureteral calculus results in mild asymmetric right hydroureter but no hydronephrosis. Additional tiny nonobstructing bilateral renal calculi are present. Guidance Fluoroscopy 05/19/22 14:52 IMPRESSION: Fluoroscopy provided for the operating room. Please see operative report for additional information. KUB X-Ray 05/28/22 13:03 IMPRESSION: * Nonobstructive bowel gas pattern. Mild colonic stool burden. Medications Medications Current Medications Acetaminophen (Acetaminophen 325 Mg Tablet) 975 mg PO QID [facility] Last Admin: 05/31/22 14:13 Dose: 975 mg Al Hydroxide/Mg Hydroxide (Magnesium Hydrox/Alum Hydrox 30 Ml Oral.Susp) 30 ml PO Q6H PRN PRN Reason: Heartburn/Nausea Amlodipine Besylate (Amlodipine Besylate 10 Mg Tablet) 10 mg PO DAILY [facility]; Protocol Last Admin: 05/31/22 10:47 Dose: 10 mg Bisacodyl (Bisacodyl 10 Mg Supp.Rect) 10 mg NC DAILY PRN PRN Reason: Constipation Last Admin: 05/26/22 18:57 Dose: 10 mg Bupropion HCl (Bupropion Hcl Xl 150 Mg Tab.Er.24h) 450 mg PO DAILY [facility] Clonidine HCl (Clonidine Hcl 0.1 Mg Tablet) 0.1 mg PO BID PRN; Protocol PRN Reason: Anxiety Clonidine HCl (Clonidine Hcl 0.1 Mg Tablet) 0.3 mg PO BEDTIME [facility]; Protocol Last Admin: 05/30/22 22:56 Dose: Not Given Hydroxyzine HCl (Hydroxyzine Hcl 50 Mg Tablet) 100 mg PO BID PRN PRN Reason: anxiety Last Admin: 05/30/22 22:53 Dose: 100 mg Hydroxyzine HCl (Hydroxyzine Hcl 25 Mg Tablet) 25 mg PO Q6H PRN PRN Reason: Anxiety Last Admin: 05/31/22 14:13 Dose: 25 mg Magnesium Hydroxide (Milk Of Magnesia 30 Ml Oral.Susp) 30 ml PO DAILY PRN PRN Reason: Constipation Multivitamins/Vitamin C (Multivitamin Tablet) 1 tab PO DAILY [facility] Last Admin: 05/31/22 10:49 Dose: 1 tab Nicotine (Nicotine 21 Mg Patch.Td24) 21 mg TRANSDERMA DAILY [facility] Last Admin: 05/31/22 10:50 Dose: 21 mg Ondansetron HCl (Ondansetron Odt 4 Mg Tab.Rapdis) 8 mg TRANSLINGU Q6H PRN PRN Reason: nausea Last Admin: 05/21/22 08:29 Dose: 8 mg Oxybutynin Chloride (Oxybutynin Chloride Er 5 Mg Tab.Er.24) 5 mg PO TID PRN PRN Reason: ureter spasm Oxycodone HCl (Oxycodone Hcl Immed Release 5 Mg Tablet) 5 mg PO Q4H PRN PRN Reason: Pain, Mild (Pain Scale 7-10) Last Admin: 05/31/22 14:13 Dose: 5 mg Polyethylene Glycol (Polyethylene Glycol 3350 17 Gm Powd.Pack) 17 gm PO BID [facility] Last Admin: 05/31/22 10:49 Dose: Not Given Quetiapine Fumarate (Quetiapine Fumarate 100 Mg Tablet) 100 mg PO BEDTIME PRN PRN Reason: Insomnia Last Admin: 05/29/22 22:26 Dose: 100 mg Quetiapine Fumarate (Quetiapine Fumarate 50 Mg Tablet) 50 mg PO Q4H PRN PRN Reason: anxiety/restlessness Last Admin: 05/31/22 14:13 Dose: 50 mg Quetiapine Fumarate (Quetiapine Fumarate 100 Mg Tablet) 100 mg PO BID [facility] Tamsulosin HCl (Tamsulosin Hcl 0.4 Mg Capsule) 0.4 mg PO DAILY [facility] Last Admin: 05/31/22 10:47 Dose: 0.4 mg Thiamine HCl (Thiamine Hcl 100 Mg Tablet) 100 mg PO DAILY [facility] Last Admin: 05/31/22 10:48 Dose: 100 mg Trazodone HCl (Trazodone Hcl 100 Mg Tablet) 200 mg PO BEDTIME [facility] Last Admin: 05/30/22 22:54 Dose: 200 mg Allergies Allergies Allergy/AdvReac Type Severity Reaction Status Date / Time haloperidol [From Haldol] AdvReac see note Verified 05/29/22 11:52 Assessment & Plan Assessment & Plan (1) Right ureteral stone: Status: Acute Code(s): N20.1 - Calculus of ureter Assessment and Plan: per 05/18 urology note: Imaging reviewed BUN-21 CREAT- 1.32 Continue Flomax Continue PRN oxycodone for pain Discussed importance of increasing/maintaining adequate PO intake Discussed with nursing to strain urine and or have patient utilize urinal to further assess if stone has passed If patient continues with pain and has not been noted to pass stone plan for OR tomorrow for Cystoscopy, ureteroscopy, retrograde, basketing and possible stent placement on the right side with Dr. Murcia. Case discussed. NPO after midnight. (2) Flank pain: Status: Acute Code(s): R10.9 - Unspecified abdominal pain (3) Major depression, recurrent: Status: Acute Code(s): F33.9 - Major depressive disorder, recurrent, unspecified Plan 05/17:? Brian was admitted for safety and stabilization.? He meets criteria for inpatient level of care.? Current medications including Wellbutrin, Seroquel and hydroxyzine were continued.? I added BuSpar 5 mg b.i.d. to be increased over the next several days.? Side effects with regards to dizziness discussed.? Outpatient referrals to be made.? He will meet with his treatment team on 05/18/202205/18:? buspar DCed, seroquel 50 at HS added.? pt will take seroquel 25 PRNs during the day for anxiety.? urological procedure tomorrow to address renal calculus; NPO after MN tonight. 05/19: no changes to medications regimen. procedure 1 pm for definitive Tx of kidney stone. 05/20: ureter stented and stone passed, apparently. remains in pain with dys- and hematuria. per urology PA will need to have stent removed in a week and can expect pain and bleeding until then; they are making an appointment for him. observe for today without making any changes. pt reports his depression and anxiety have not changed since admission. 05/21: c/o ongoing depression without relief, anxiety. now AH starting. agrees to increase HS seroquel to 100 mg, make use of seroquel 25 mg PRNs. stent removal scheduled for 05/27 at 2:45. ongoing pain and bleeding expected to continue through removal of stent. 05/22: more irritable. +SI. weary. increased oxycodone dosing from 7.5 mg to 10 mg each. scheduled oxybutynin 5 TID. increased seroquel PRNs to 50 mg each. increased HS seroquel to 100 mg MR x 1. 05/23: Continue current treatment plan. 05/24: Continue current treatment plan. 05/25: continue current mgmt. add laxatives as pt requests/tolerates. stent revision weds. 05/26: NPO past MN tonight for procedure tomorrow afternoon. declines interview, appears more depressed and withdrawn per staff. 05/27: anxious re stent removal today. spoke with sponsor and reframed addiction, no longer craving. SI and AH a little bit. 05/28: procedure rescheduled for tomorrow in OR. more flexible and slightly brighter affect. 05/29: procedure completed, pain beginning to subside. will check in again tomorrow re psych med changes. 05/30: no change in pain from yesterday. decrease oxycodone PRNs to 7.5 mg each. schedule tylenol 975 QID for now. planning for wednesday discharge. 05/31: decrease oxy PRNs from 7.5 each to 5 each. increase seroquel dosing to 100 BID. instructed to make use of seroquel PRNs during day. interested in ECT, may be suitable due to weight loss and severity of risk for suicide due to number and chronicity of interpersonal losses. had been planning for wednesday discharge, but pt appearing increasingly unstable. Reason for contiued inpatient stay Substantial Risk for: harm to self, inability to function and rapid decompensation Time Spent With Patient Time: Total time managing care of this patient today ____ minutes.
[2022-05-31] MEDS: traZODone HCL 100 MG TABLET 200 MG PO (20:31)
[2022-05-31] MEDS: cloNIDine HCL 0.1 MG TABLET 0.3 MG PO (20:31)
[2022-05-31] MEDS: QUEtiapine Fumarate 100 MG TABLET PO (20:31)
[2022-05-31 20:44] VITALS: BP 122/79; PULSE 66; RESP 16; TEMP 36.9; O2SAT 98
--- NOTE | 2022-06-01 | ECG_ITS ---
Test Reason : ECT CLEARENCE Blood Pressure : / mmHG Vent. Rate : 054 BPM Atrial Rate : 054 BPM P-R Int : 178 ms QRS Dur : 098 ms QT Int : 430 ms P-R-T Axes : 029 -04 006 degrees QTc Int : 407 ms Sinus bradycardia Moderate voltage criteria for LVH, may be normal variant ( R in aVL , Alpine product ) Early repolarization Borderline ECG When compared with ECG of 04-AUG-2021 13:48, No significant change was found Referred By: Pablo Abdul Electronically Signed By:FERNANDA JUSTICE MD
[2022-06-01 08:40] VITALS: BP 108/70; PULSE 56; RESP 18; TEMP 36.6; O2SAT 98
[2022-06-01] MEDS: Thiamine HCL 100 MG TABLET PO (08:54)
[2022-06-01] MEDS: oxyCODONE HCl Immed Release 5 MG TABLET PO ×2 (08:54→12:55)
[2022-06-01] MEDS: Tamsulosin HCL 0.4 MG CAPSULE PO (08:54)
[2022-06-01] MEDS: buPROPion HCl XL 150 MG TAB.ER.24H 450 MG PO (08:56)
[2022-06-01] MEDS: Multivitamin TABLET 1 TAB PO (08:57)
[2022-06-01] MEDS: Acetaminophen 325 MG TABLET 975 MG PO ×3 (08:57→20:39)
[2022-06-01] MEDS: QUEtiapine Fumarate 100 MG TABLET PO ×2 (08:57→16:22)
[2022-06-01] MEDS: Nicotine 21 MG PATCH.TD24 TRANSDERMA (08:58)
[2022-06-01] MEDS: hydrOXYzine HCL 25 MG TABLET PO (12:49)
[2022-06-01] MEDS: polyethylene glycoL 3350 17 GM POWD.PACK PO (12:51)
--- NOTE | 2022-06-01 14:43 | P.PNPSI_ITS ---
Subjective Subjective Date of Service: 06/01/22 Reason For Visit: right uretera stone Interim History: calm, cooperative. asking for an update. informed we will not discharge, will negotiate with insurance provider as needed. informs pt will let bill know about ECT request today as well. pain improving, wants to DC opioids, yes says NSAIDs still inadequate. agrees to tramadol for near term. also c/o ongoing AH and insomnia, agrees to further increases in seroquel dosing at HS and throughout the day. PRNs streamlined to just seroquel; atarax and clonidine DCed. oxybutynin also DCed. reports no change in mood status. per staff, excessive daytime sleepiness. eating poorly. losing weight. some pain still. crying while talking about AH from his girl. isolative, napping. records requested from [facility]. Mental Status Exam Mental Status Exam Narrative: pt is alert, oriented. Normal speech. Moderate eye contact. Affect is appropriate, non-labile, normo-intense. anxiety and depression. No signs of psychosis. +SI, AH. no HI/VH expressed. Cognitively is intact. Judgment is intact Diagnostics Vital Signs (24Hr): Vital Signs - 24 hr 05/31/22 20:44 06/01/22 08:40 Temperature 98.4 F 97.8 F Pulse Rate 66 56 Respiratory Rate 16 18 Blood Pressure 122/79 108/70 Pulse Oximetry 98 98 Oxygen Delivery Method Room Air Room Air BMI result Body Mass Index 23.5 Labs 05/17/22 07:53 05/17/22 07:53 Imaging Radiology Impressions: ITS Impressions Abdomen/Pelvis CT 05/15/22 16:23 IMPRESSION: 5 mm right distal ureteral calculus results in mild asymmetric right hydroureter but no hydronephrosis. Additional tiny nonobstructing bilateral renal calculi are present. Guidance Fluoroscopy 05/19/22 14:52 IMPRESSION: Fluoroscopy provided for the operating room. Please see operative report for additional information. KUB X-Ray 05/28/22 13:03 IMPRESSION: * Nonobstructive bowel gas pattern. Mild colonic stool burden. Medications Medications Current Medications Acetaminophen (Acetaminophen 325 Mg Tablet) 975 mg PO QID NEIDA Last Admin: 06/01/22 12:50 Dose: 975 mg Al Hydroxide/Mg Hydroxide (Magnesium Hydrox/Alum Hydrox 30 Ml Oral.Susp) 30 ml PO Q6H PRN PRN Reason: Heartburn/Nausea Amlodipine Besylate (Amlodipine Besylate 10 Mg Tablet) 10 mg PO DAILY [facility]; Protocol Last Admin: 06/01/22 08:59 Dose: Not Given Bisacodyl (Bisacodyl 10 Mg Supp.Rect) 10 mg NV DAILY PRN PRN Reason: Constipation Last Admin: 05/26/22 18:57 Dose: 10 mg Bupropion HCl (Bupropion Hcl Xl 150 Mg Tab.Er.24h) 450 mg PO DAILY [facility] Last Admin: 06/01/22 08:56 Dose: 450 mg Clonidine HCl (Clonidine Hcl 0.1 Mg Tablet) 0.3 mg PO BEDTIME [facility]; Protocol Last Admin: 05/31/22 20:31 Dose: 0.3 mg Magnesium Hydroxide (Milk Of Magnesia 30 Ml Oral.Susp) 30 ml PO DAILY PRN PRN Reason: Constipation Multivitamins/Vitamin C (Multivitamin Tablet) 1 tab PO DAILY [facility] Last Admin: 06/01/22 08:57 Dose: 1 tab Nicotine (Nicotine 21 Mg Patch.Td24) 21 mg TRANSDERMA DAILY [facility] Last Admin: 06/01/22 08:58 Dose: 21 mg Ondansetron HCl (Ondansetron Odt 4 Mg Tab.Rapdis) 8 mg TRANSLINGU Q6H PRN PRN Reason: nausea Last Admin: 05/21/22 08:29 Dose: 8 mg Polyethylene Glycol (Polyethylene Glycol 3350 17 Gm Powd.Pack) 17 gm PO BID [facility] Last Admin: 06/01/22 12:51 Dose: 17 gm Quetiapine Fumarate (Quetiapine Fumarate 100 Mg Tablet) 100 mg PO BEDTIME PRN PRN Reason: Insomnia Last Admin: 05/29/22 22:26 Dose: 100 mg Quetiapine Fumarate (Quetiapine Fumarate 100 Mg Tablet) 100 mg PO Q4H PRN PRN Reason: anxiety/restlessness Quetiapine Fumarate (Quetiapine Fumarate 100 Mg Tablet) 100 mg PO DAILY [facility] Quetiapine Fumarate (Quetiapine Fumarate 200 Mg Tablet) 200 mg PO BEDTIME [facility] Tamsulosin HCl (Tamsulosin Hcl 0.4 Mg Capsule) 0.4 mg PO DAILY [facility] Last Admin: 06/01/22 08:54 Dose: 0.4 mg Thiamine HCl (Thiamine Hcl 100 Mg Tablet) 100 mg PO DAILY [facility] Last Admin: 06/01/22 08:54 Dose: 100 mg Tramadol HCl (Tramadol Hcl 50 Mg Tablet) 50 mg PO Q4H PRN PRN Reason: moderate to severe pain Trazodone HCl (Trazodone Hcl 100 Mg Tablet) 200 mg PO BEDTIME NEIDA Last Admin: 05/31/22 20:31 Dose: 200 mg Allergies Allergies Allergy/AdvReac Type Severity Reaction Status Date / Time haloperidol [From Haldol] AdvReac see note Verified 05/29/22 11:52 Assessment & Plan Assessment & Plan (1) Right ureteral stone: Status: Acute Code(s): N20.1 - Calculus of ureter Assessment and Plan: per 05/18 urology note: Imaging reviewed BUN-21 CREAT- 1.32 Continue Flomax Continue PRN oxycodone for pain Discussed importance of increasing/maintaining adequate PO intake Discussed with nursing to strain urine and or have patient utilize urinal to further assess if stone has passed If patient continues with pain and has not been noted to pass stone plan for OR tomorrow for Cystoscopy, ureteroscopy, retrograde, basketing and possible stent placement on the right side with Dr. Murcia. Case discussed. NPO after midnight. (2) Flank pain: Status: Acute Code(s): R10.9 - Unspecified abdominal pain (3) Major depression, recurrent: Status: Acute Code(s): F33.9 - Major depressive disorder, recurrent, unspecified Plan 05/17:? Brian was admitted for safety and stabilization.? He meets criteria for inpatient level of care.? Current medications including Wellbutrin, Seroquel and hydroxyzine were continued.? I added BuSpar 5 mg b.i.d. to be increased over the next several days.? Side effects with regards to dizziness discussed.? Outpatient referrals to be made.? He will meet with his treatment team on 05/18/202205/18:? buspar DCed, seroquel 50 at HS added.? pt will take seroquel 25 PRNs during the day for anxiety.? urological procedure tomorrow to address renal calculus; NPO after MN tonight. 05/19: no changes to medications regimen. procedure 1 pm for definitive Tx of kidney stone. 05/20: ureter stented and stone passed, apparently. remains in pain with dys- and hematuria. per urology PA will need to have stent removed in a week and can expect pain and bleeding until then; they are making an appointment for him. observe for today without making any changes. pt reports his depression and anxiety have not changed since admission. 05/21: c/o ongoing depression without relief, anxiety. now AH starting. agrees to increase HS seroquel to 100 mg, make use of seroquel 25 mg PRNs. stent removal scheduled for 05/27 at 2:45. ongoing pain and bleeding expected to continue through removal of stent. 05/22: more irritable. +SI. weary. increased oxycodone dosing from 7.5 mg to 10 mg each. scheduled oxybutynin 5 TID. increased seroquel PRNs to 50 mg each. increased HS seroquel to 100 mg MR x 1. 05/23: Continue current treatment plan. 05/24: Continue current treatment plan. 05/25: continue current mgmt. add laxatives as pt requests/tolerates. stent revision . 05/26: NPO past MN tonight for procedure tomorrow afternoon. declines interview, appears more depressed and withdrawn per staff. 05/27: anxious re stent removal today. spoke with sponsor and reframed addiction, no longer craving. SI and AH a little bit. 05/28: procedure rescheduled for tomorrow in OR. more flexible and slightly brighter affect. 2: procedure completed, pain beginning to subside. will check in again tomorrow re psych med changes. 05/30: no change in pain from yesterday. decrease oxycodone PRNs to 7.5 mg each. schedule tylenol 975 QID for now. planning for wednesday discharge. 05/31: decrease oxy PRNs from 7.5 each to 5 each. increase seroquel dosing to 100 BID. instructed to make use of seroquel PRNs during day. interested in ECT, may be suitable due to weight loss and severity of risk for suicide due to number and chronicity of interpersonal losses. had been planning for wednesday discharge, but pt appearing increasingly unstable. 06/01: increase seroquel scheduled and PRN. DC oxycodone, start tramadol for pain. DC PRNs for anxiety aside from seroquel. c/o depression and anxiety with ongoing SI and AH. Reason for contiued inpatient stay Substantial Risk for: harm to self, inability to function and rapid decompensation Time Spent With Patient Time: Total time managing care of this patient today __25__ minutes.
[2022-06-01] MEDS: traMADoL HCL 50 MG TABLET PO ×2 (16:22→20:39)
--- NOTE | 2022-06-01 17:46 | PM.EVENT ---
Event Note Date of Service: 06/01/22 Event Note: Patient with history of nephrolithiasis, opiate use disorder, hypertension, hepatitis-C, history of IV drug abuse admitted to Psychiatry for management of depression with consult placed to Medicine for ECT evaluation. The patient has no history of cardiovascular disease or congestive heart failure. He is able to a center flight of stairs and walk for prolonged distance without any shortness of breath or chest pain. He has had ECT in the past without adverse effect. At this time, I find no medical contraindication to pace in undergoing ECT. Time Spent With Patient Time: Total time managing care of this patient today ____ minutes.
[2022-06-01 20:30] VITALS: BP 126/76; PULSE 60; RESP 16; TEMP 36.6; O2SAT 98
[2022-06-01] MEDS: cloNIDine HCL 0.1 MG TABLET 0.3 MG PO (20:38)
[2022-06-01] MEDS: QUEtiapine Fumarate 200 MG TABLET PO (20:39)
[2022-06-01] MEDS: traZODone HCL 100 MG TABLET 200 MG PO (20:39)
[2022-06-02 09:26] VITALS: BP 119/72; PULSE 50; RESP 18; TEMP 36.6; O2SAT 97
[2022-06-02] MEDS: Thiamine HCL 100 MG TABLET PO (09:28)
[2022-06-02] MEDS: QUEtiapine Fumarate 100 MG TABLET PO ×3 (09:28→18:19)
[2022-06-02] MEDS: buPROPion HCl XL 150 MG TAB.ER.24H 450 MG PO (09:28)
[2022-06-02] MEDS: Tamsulosin HCL 0.4 MG CAPSULE PO (09:29)
[2022-06-02] MEDS: Nicotine 21 MG PATCH.TD24 TRANSDERMA (09:29)
[2022-06-02] MEDS: amLODIPine Besylate 10 MG TABLET PO (09:29)
[2022-06-02] MEDS: Acetaminophen 325 MG TABLET 975 MG PO ×2 (09:29→20:50)
[2022-06-02] MEDS: Multivitamin TABLET 1 TAB PO (09:30)
[2022-06-02] MEDS: traMADoL HCL 50 MG TABLET PO ×2 (09:30→18:19)
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
--- NOTE | 2022-06-02 19:10 | ECG_ITS ---
Test Reason : check rhythm Blood Pressure : / mmHG Vent. Rate : 067 BPM Atrial Rate : 067 BPM P-R Int : 178 ms QRS Dur : 098 ms QT Int : 394 ms P-R-T Axes : 051 005 022 degrees QTc Int : 416 ms Normal sinus rhythm Possible Left atrial enlargement Minimal voltage criteria for LVH, may be normal variant ( Sotero product ) Borderline ECG When compared with ECG of 01-JUN-2022 15:48, No significant change was found Referred By: Pablo Abdul Electronically Signed By:FERNANDA JUSTICE MD
--- NOTE | 2022-06-02 19:27 | P.PNPSI_ITS ---
Subjective Subjective Date of Service: 06/02/22 Reason For Visit: right uretera stone Interim History: calm, cooperative. no change in mood state. feels tramadol is working well and wants to continue at present dosing. feeling weak, not eating. per staff, c/o pain. happy with tramadol. dep/anx/AH. safe. eves isolative. taking meds and meals. slept overnight. ECT tomorrow. Mental Status Exam Mental Status Exam Narrative: pt is alert, oriented. Normal speech. Moderate eye contact. Affect is appropriate, non-labile, normo-intense. anxiety and depression. No signs of psychosis. +SI, AH. no HI/VH expressed. Cognitively is intact. Judgment is intact Diagnostics Vital Signs (24Hr): Vital Signs - 24 hr 06/01/22 20:30 06/02/22 09:26 Temperature 97.8 F 97.8 F Pulse Rate 60 50 Respiratory Rate 16 18 Blood Pressure 126/76 119/72 Pulse Oximetry 98 97 Oxygen Delivery Method Room Air Room Air BMI result Body Mass Index 23.5 Labs 05/17/22 07:53 05/17/22 07:53 Imaging Radiology Impressions: ITS Impressions Abdomen/Pelvis CT 05/15/22 16:23 IMPRESSION: 5 mm right distal ureteral calculus results in mild asymmetric right hydroureter but no hydronephrosis. Additional tiny nonobstructing bilateral renal calculi are present. Guidance Fluoroscopy 05/19/22 14:52 IMPRESSION: Fluoroscopy provided for the operating room. Please see operative report for additional information. KUB X-Ray 05/28/22 13:03 IMPRESSION: * Nonobstructive bowel gas pattern. Mild colonic stool burden. Medications Medications Current Medications Acetaminophen (Acetaminophen 325 Mg Tablet) 975 mg PO QID [facility] Last Admin: 06/02/22 17:28 Dose: Not Given Al Hydroxide/Mg Hydroxide (Magnesium Hydrox/Alum Hydrox 30 Ml Oral.Susp) 30 ml PO Q6H PRN PRN Reason: Heartburn/Nausea Amlodipine Besylate (Amlodipine Besylate 10 Mg Tablet) 10 mg PO DAILY [facility]; Protocol Last Admin: 06/02/22 09:29 Dose: 10 mg Bisacodyl (Bisacodyl 10 Mg Supp.Rect) 10 mg [place] DAILY PRN PRN Reason: Constipation Last Admin: 05/26/22 18:57 Dose: 10 mg Bupropion HCl (Bupropion Hcl Xl 150 Mg Tab.Er.24h) 450 mg PO DAILY [facility] Last Admin: 06/02/22 09:28 Dose: 450 mg Clonidine HCl (Clonidine Hcl 0.1 Mg Tablet) 0.3 mg PO BEDTIME [facility]; Protocol Last Admin: 06/01/22 20:38 Dose: 0.3 mg Magnesium Hydroxide (Milk Of Magnesia 30 Ml Oral.Susp) 30 ml PO DAILY PRN PRN Reason: Constipation Multivitamins/Vitamin C (Multivitamin Tablet) 1 tab PO DAILY [facility] Last Admin: 06/02/22 09:30 Dose: 1 tab Nicotine (Nicotine 21 Mg Patch.Td24) 21 mg TRANSDERMA DAILY [facility] Last Admin: 06/02/22 09:29 Dose: 21 mg Ondansetron HCl (Ondansetron Odt 4 Mg Tab.Rapdis) 8 mg TRANSLINGU Q6H PRN PRN Reason: nausea Last Admin: 05/21/22 08:29 Dose: 8 mg Polyethylene Glycol (Polyethylene Glycol 3350 17 Gm Powd.Pack) 17 gm PO BID [facility] Last Admin: 06/02/22 09:33 Dose: Not Given Quetiapine Fumarate (Quetiapine Fumarate 100 Mg Tablet) 100 mg PO BEDTIME PRN PRN Reason: Insomnia Last Admin: 05/29/22 22:26 Dose: 100 mg Quetiapine Fumarate (Quetiapine Fumarate 100 Mg Tablet) 100 mg PO Q4H PRN PRN Reason: anxiety/restlessness Last Admin: 06/02/22 18:19 Dose: 100 mg Quetiapine Fumarate (Quetiapine Fumarate 100 Mg Tablet) 100 mg PO DAILY [facility] Last Admin: 06/02/22 09:28 Dose: 100 mg Quetiapine Fumarate (Quetiapine Fumarate 200 Mg Tablet) 200 mg PO BEDTIME [facility] Last Admin: 06/01/22 20:39 Dose: 200 mg Tamsulosin HCl (Tamsulosin Hcl 0.4 Mg Capsule) 0.4 mg PO DAILY [facility] Last Admin: 06/02/22 09:29 Dose: 0.4 mg Thiamine HCl (Thiamine Hcl 100 Mg Tablet) 100 mg PO DAILY [facility] Last Admin: 06/02/22 09:28 Dose: 100 mg Tramadol HCl (Tramadol Hcl 50 Mg Tablet) 50 mg PO Q4H PRN PRN Reason: moderate to severe pain Last Admin: 06/02/22 18:19 Dose: 50 mg Trazodone HCl (Trazodone Hcl 100 Mg Tablet) 200 mg PO BEDTIME [facility] Last Admin: 06/01/22 20:39 Dose: 200 mg Allergies Allergies Allergy/AdvReac Type Severity Reaction Status Date / Time haloperidol [From Haldol] AdvReac see note Verified 05/29/22 11:52 Assessment & Plan Assessment & Plan (1) Right ureteral stone: Status: Acute Code(s): N20.1 - Calculus of ureter Assessment and Plan: per 05/18 urology note: Imaging reviewed BUN-21 CREAT- 1.32 Continue Flomax Continue PRN oxycodone for pain Discussed importance of increasing/maintaining adequate PO intake Discussed with nursing to strain urine and or have patient utilize urinal to further assess if stone has passed If patient continues with pain and has not been noted to pass stone plan for OR tomorrow for Cystoscopy, ureteroscopy, retrograde, basketing and possible stent placement on the right side with Dr. Murcia. Case discussed. NPO after midnight. (2) Flank pain: Status: Acute Code(s): R10.9 - Unspecified abdominal pain (3) Major depression, recurrent: Status: Acute Code(s): F33.9 - Major depressive disorder, recurrent, unspecified Plan 05/17:? Brian was admitted for safety and stabilization.? He meets criteria for inpatient level of care.? Current medications including Wellbutrin, Seroquel and hydroxyzine were continued.? I added BuSpar 5 mg b.i.d. to be increased over the next several days.? Side effects with regards to dizziness discussed.? Outpatient referrals to be made.? He will meet with his treatment team on 05/18/202205/18:? buspar DCed, seroquel 50 at HS added.? pt will take seroquel 25 PRNs during the day for anxiety.? urological procedure tomorrow to address renal calculus; NPO after MN tonight. 05/19: no changes to medications regimen. procedure 1 pm for definitive Tx of kidney stone. 05/20: ureter stented and stone passed, apparently. remains in pain with dys- and hematuria. per urology PA will need to have stent removed in a week and can expect pain and bleeding until then; they are making an appointment for him. observe for today without making any changes. pt reports his depression and anxiety have not changed since admission. 05/21: c/o ongoing depression without relief, anxiety. now AH starting. agrees to increase HS seroquel to 100 mg, make use of seroquel 25 mg PRNs. stent removal scheduled for 05/27 at 2:45. ongoing pain and bleeding expected to continue through removal of stent. 05/22: more irritable. +SI. weary. increased oxycodone dosing from 7.5 mg to 10 mg each. scheduled oxybutynin 5 TID. increased seroquel PRNs to 50 mg each. increased HS seroquel to 100 mg MR x 1. 05/23: Continue current treatment plan. 05/24: Continue current treatment plan. 05/25: continue current mgmt. add laxatives as pt requests/tolerates. stent revision . 05/26: NPO past MN tonight for procedure tomorrow afternoon. declines interview, appears more depressed and withdrawn per staff. 05/27: anxious re stent removal today. spoke with sponsor and reframed addiction, no longer craving. SI and AH a little bit. 05/28: procedure rescheduled for tomorrow in OR. more flexible and slightly zaria ghter affect. 05/29: procedure completed, pain beginning to subside. will check in again tomorrow re psych med changes. 05/30: no change in pain from yesterday. decrease oxycodone PRNs to 7.5 mg each. schedule tylenol 975 QID for now. planning for wednesday discharge. 05/31: decrease oxy PRNs from 7.5 each to 5 each. increase seroquel dosing to 100 BID. instructed to make use of seroquel PRNs during day. interested in ECT, may be suitable due to weight loss and severity of risk for suicide due to number and chronicity of interpersonal losses. had been planning for wednesday discharge, but pt appearing increasingly unstable. 06/01: increase seroquel scheduled and PRN. DC oxycodone, start tramadol for pain. DC PRNs for anxiety aside from seroquel. c/o depression and anxiety with ongoing SI and AH. 06/02: stable presentation. seen by Christina and scheduled for ECT for tomorrow. Reason for contiued inpatient stay Substantial Risk for: harm to self, inability to function and rapid decompensation Time Spent With Patient Time: Total time managing care of this patient today __20__ minutes.
[2022-06-02 19:55] VITALS: BP 127/70; PULSE 81; RESP 18; TEMP 37; O2SAT 96
[2022-06-02] MEDS: QUEtiapine Fumarate 200 MG TABLET PO (20:50)
[2022-06-02] MEDS: cloNIDine HCL 0.1 MG TABLET 0.3 MG PO (20:50)
[2022-06-02] MEDS: traZODone HCL 100 MG TABLET 200 MG PO (20:50)
[2022-06-03] VITALS (9 sets, daily range): BP systolic 98–160; BP diastolic 59–93; PULSE 49–80; RESP 16–20; TEMP 36.4–36.8; O2SAT 95–97
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
--- NOTE | 2022-06-03 07:29 | P.HPSUR_ITS ---
Pre-Procedural Eval Section A Date of Service: 06/03/22 Changes since office visit: Yes New Medical Problems, Yes Changes in Medication and Yes Patient answered all questions; No Cold of Flu in the past 2 weeks The History & Physical has been completed within 30 days and I have reviewed it .: Yes Section B Chief Complaint: right uretera stone severe depression Details of Present Illness: recurrent psychotic depression Relevant Social History: Other (specify) (past opiate marijuana ) Present Medications: see Short Stay Collaborative assessment Medical History: Significant History (renal stones htn) History of Previous Operations: No relevant previous surgery (ect) Allergies: Allergies Allergy/AdvReac Type Severity Reaction Status Date / Time haloperidol [From Haldol] AdvReac see note Verified 05/29/22 11:52 Review of Systems Sugical H&P ROS: Negative: Cardiovascular, Respiratory and Neurological and Yes, Specify: Psychiatric (depression hallucinations ) and Genitourinary (back ? stone pain) Exam Surgical H&P Exam: Normal: Heart (no murmur ), Normal: Lungs (clear) and Normal: Neurological Plan Diagnosis/Plan: Unchanged I have reviewed the history and physical and performed a pertinent physical examination on my patient. No changes have occurred unless specified. Time Spent With Patient Time: Total time managing care of this patient today ____ minutes.
--- NOTE | 2022-06-03 08:04 | HO.ECTPROC ---
ECT Procedure Note Diagnosis/Treatment Date of Service: 06/03/22 Diagnosis: Major Depressive Disorder Current Treatment Number: 1 Treatment: Series Interval Clinical Notes: Patient depressed anxious withdrawn. Somewhat nervous about getting ECT given he had adverse effect at [facility] with anesthesia but prior to that treatment had done well both at [facility] and here with ECT . Patient wishing to go forward feels it has been quite helpful in the past last ECT course here was in 2019 that was reviewed PACU staff and anesthesia feels the patient needs and access if he is going to have ongoing treatment Time: Total time managing care of this patient today ____ minutes. ECT Settings Device: THYMATRON DGx Electrode Placement: Right Unilateral Program/Pulse Width: 0.50 Energy Percent: 100 Seizure Duration By EEG (in seconds): 49 Medications Administration General Anesthetic: Etomidate (18) Muscle Relaxant: Succinylcholine (100) Ancillary Medications Analgesics: Torodol - Pre ECT (15) Anti-emetics: Zofran - Pre ECT Cardiovascular Medications: Glycopyrrolate (.2 post for bradycardia) Miscillaneous Medications: Midazolam (2 mg) Airway Management Airway Management: Bag Mask Ventilation Treatment Recommendations Notes: Consider giving Robinul pretreatment etomidate did cause some burning has had Brevital the past Midline ordered Pt Tolerated Procedure w/o Issue: Yes
[2022-06-03] MEDS: traMADoL HCL 50 MG TABLET PO ×2 (10:03→16:09)
[2022-06-03] MEDS: Nicotine 21 MG PATCH.TD24 TRANSDERMA (10:14)
[2022-06-03] MEDS: buPROPion HCl XL 150 MG TAB.ER.24H 450 MG PO (10:17)
[2022-06-03] MEDS: Acetaminophen 325 MG TABLET 975 MG PO ×3 (10:17→18:49)
[2022-06-03] MEDS: QUEtiapine Fumarate 100 MG TABLET PO ×2 (10:18→15:07)
[2022-06-03] MEDS: Multivitamin TABLET 1 TAB PO (10:18)
[2022-06-03] MEDS: Thiamine HCL 100 MG TABLET PO (10:18)
[2022-06-03] MEDS: Tamsulosin HCL 0.4 MG CAPSULE PO (10:18)
[2022-06-03] MEDS: amLODIPine Besylate 10 MG TABLET PO (10:18)
--- NOTE | 2022-06-03 10:24 | PC.NURSE ---
Pt toleratd ECT this am without any difficulties. When offered am medications pt refused Miralax. Patient educated on the medication and the importance. Pt refused stating he had a bowel movement yesterday and some loose stool.
--- NOTE | 2022-06-03 16:28 | HO.PSYCHPN ---
Subjective Subjective Date of Service: 06/03/22 Reason For Visit: right uretera stone severe depression Interim History: calm, restin post-ECT. states he is tired. no change in mood right now. pain continues to improve, but tramadol is not adequate still, does not want to reduce dosing. no complaints or requests. per staff, some pain. dep/anx 9. pleasant, polite. poor sleep. med-compliant. +AH. no SI/HI. slept well, but restlessly. had ECT today. Mental Status Exam Mental Status Exam Narrative: pt is alert, oriented. Normal speech. Moderate eye contact. Affect is appropriate, non-labile, normo-intense. anxiety and depression. No signs of psychosis. no SI/HI/AVH expressed. Cognitively is intact. Judgment is intact Diagnostics Vital Signs (24Hr): Vital Signs - 24 hr 06/02/22 19:55 06/03/22 06:00 06/03/22 06:28 Temperature 98.6 F 97.7 F 97.9 F Pulse Rate 81 80 49 L Respiratory Rate 18 16 18 Blood Pressure 127/70 98/59 L 120/78 Pulse Oximetry 96 97 97 Oxygen Delivery Method Room Air Room Air Oxygen Flow Rate 06/03/22 07:59 06/03/22 08:04 06/03/22 08:09 Temperature 98.2 F Pulse Rate 68 74 74 Respiratory Rate 16 16 16 Blood Pressure 160/93 H 124/86 128/86 Pulse Oximetry 97 97 96 Oxygen Delivery Method Nasal Cannula Room Air Room Air Oxygen Flow Rate 2 06/03/22 08:14 06/03/22 08:29 06/03/22 09:43 Temperature 97.5 F 97.8 F Pulse Rate 72 74 72 Respiratory Rate 16 16 20 Blood Pressure 131/91 H 150/86 H 120/85 Pulse Oximetry 95 96 Oxygen Delivery Method Room Air Room Air Oxygen Flow Rate BMI result Body Mass Index 23.5 Labs 05/17/22 07:53 05/17/22 07:53 Imaging Radiology Impressions: ITS Impressions Abdomen/Pelvis CT 05/15/22 16:23 IMPRESSION: 5 mm right distal ureteral calculus results in mild asymmetric right hydroureter but no hydronephrosis. Additional tiny nonobstructing bilateral renal calculi are present. Guidance Fluoroscopy 05/19/22 14:52 IMPRESSION: Fluoroscopy provided for the operating room. Please see operative report for additional information. KUB X-Ray 05/28/22 13:03 IMPRESSION: * Nonobstructive bowel gas pattern. Mild colonic stool burden. Medications Medications Current Medications Acetaminophen (Acetaminophen 325 Mg Tablet) 975 mg PO QID [facility] Last Admin: 06/03/22 13:51 Dose: 975 mg Al Hydroxide/Mg Hydroxide (Magnesium Hydrox/Alum Hydrox 30 Ml Oral.Susp) 30 ml PO Q6H PRN PRN Reason: Heartburn/Nausea Amlodipine Besylate (Amlodipine Besylate 10 Mg Tablet) 10 mg PO DAILY [facility]; Protocol Last Admin: 06/03/22 10:18 Dose: 10 mg Bisacodyl (Bisacodyl 10 Mg Supp.Rect) 10 mg IA DAILY PRN PRN Reason: Constipation Last Admin: 05/26/22 18:57 Dose: 10 mg Bupropion HCl (Bupropion Hcl Xl 150 Mg Tab.Er.24h) 450 mg PO DAILY [facility] Last Admin: 06/03/22 10:17 Dose: 450 mg Clonidine HCl (Clonidine Hcl 0.1 Mg Tablet) 0.3 mg PO BEDTIME [facility]; Protocol Last Admin: 06/02/22 20:50 Dose: 0.3 mg Magnesium Hydroxide (Milk Of Magnesia 30 Ml Oral.Susp) 30 ml PO DAILY PRN PRN Reason: Constipation Multivitamins/Vitamin C (Multivitamin Tablet) 1 tab PO DAILY [facility] Last Admin: 06/03/22 10:18 Dose: 1 tab Nicotine (Nicotine 21 Mg Patch.Td24) 21 mg TRANSDERMA DAILY [facility] Last Admin: 06/03/22 10:14 Dose: 21 mg Ondansetron HCl (Ondansetron Odt 4 Mg Tab.Rapdis) 8 mg TRANSLINGU Q6H PRN PRN Reason: nausea Last Admin: 05/21/22 08:29 Dose: 8 mg Polyethylene Glycol (Polyethylene Glycol 3350 17 Gm Powd.Pack) 17 gm PO BID [facility] Last Admin: 06/02/22 20:52 Dose: Not Given Quetiapine Fumarate (Quetiapine Fumarate 100 Mg Tablet) 100 mg PO BEDTIME PRN PRN Reason: Insomnia Last Admin: 05/29/22 22:26 Dose: 100 mg Quetiapine Fumarate (Quetiapine Fumarate 100 Mg Tablet) 100 mg PO Q4H PRN PRN Reason: anxiety/restlessness Last Admin: 06/03/22 15:07 Dose: 100 mg Quetiapine Fumarate (Quetiapine Fumarate 200 Mg Tablet) 200 mg PO BEDTIME [facility] Last Admin: 06/02/22 20:50 Dose: 200 mg Quetiapine Fumarate (Quetiapine Fumarate 100 Mg Tablet) 100 mg PO DAILY [facility] Last Admin: 06/03/22 10:18 Dose: 100 mg Tamsulosin HCl (Tamsulosin Hcl 0.4 Mg Capsule) 0.4 mg PO DAILY [facility] Last Admin: 06/03/22 10:18 Dose: 0.4 mg Thiamine HCl (Thiamine Hcl 100 Mg Tablet) 100 mg PO DAILY [facility] Last Admin: 06/03/22 10:18 Dose: 100 mg Tramadol HCl (Tramadol Hcl 50 Mg Tablet) 50 mg PO Q4H PRN PRN Reason: moderate to severe pain Last Admin: 06/03/22 16:09 Dose: 50 mg Trazodone HCl (Trazodone Hcl 100 Mg Tablet) 200 mg PO BEDTIME [facility] Last Admin: 06/02/22 20:50 Dose: 200 mg Allergies Allergies Allergy/AdvReac Type Severity Reaction Status Date / Time haloperidol [From Haldol] AdvReac see note Verified 05/29/22 11:52 Assessment & Plan Assessment & Plan (1) MDD (major depressive disorder), recurrent, severe, with psychosis: Status: Acute Code(s): F33.3 - Major depressive disorder, recurrent, severe with psychotic symptoms Assessment and Plan: per bill note: Patient has a history of treatment resistant depression with psychosis. Multiple psychosocial stressors limited resources. Patient did benefit on 2-3 occasions at [facility] with a course of ECT under similar circumstances. He did have a central line at [facility] when he last had ECT because of difficulty with IV access this will need to be looked at. Patient able to give informed consent wishes to proceed with ECT aware of risks benefits potential side effect (2) Post traumatic stress disorder (PTSD): Status: Acute Code(s): F43.10 - Post-traumatic stress disorder, unspecified (3) Right ureteral stone: Status: Acute Code(s): N20.1 - Calculus of ureter (4) Hypertension: Status: Acute Code(s): I10 - Essential (primary) hypertension Plan Plan 05/17:? Brian was admitted for safety and stabilization.? He meets criteria for inpatient level of care.? Current medications including Wellbutrin, Seroquel and hydroxyzine were continued.? I added BuSpar 5 mg b.i.d. to be increased over the next several days.? Side effects with regards to dizziness discussed.? Outpatient referrals to be made.? He will meet with his treatment team on 05/18/202205/18:? buspar DCed, seroquel 50 at HS added.? pt will take seroquel 25 PRNs during the day for anxiety.? urological procedure tomorrow to address renal calculus; NPO after MN tonight. 05/19:? no changes to medications regimen.? procedure 1 pm for definitive Tx of kidney stone. 05/20:? ureter stented and stone passed, apparently.? remains in pain with dys- and hematuria.? per urology PA will need to have stent removed in a week and can expect pain and bleeding until then; they are making an appointment for him.? observe for today without making any changes.? pt reports his depression and anxiety have not changed since admission. 05/21:? c/o ongoing depression without relief, anxiety.? now AH starting.? agrees to increase HS seroquel to 100 mg, make use of seroquel 25 mg PRNs.? stent removal scheduled for 05/27 at 2:45.? ongoing pain and bleeding expected to continue through removal of stent. 05/22:? more irritable.? +SI.? weary. ? increased oxycodone dosing from 7.5 mg to 10 mg each.? scheduled oxybutynin 5 TID.? increased seroquel PRNs to 50 mg each.? increased HS seroquel to 100 mg MR x 1. 05/23: Continue current treatment plan. 05/24: Continue current treatment plan.? 05/25: continue current mgmt.? add laxatives as pt requests/tolerates.? stent revision weds. 05/26: NPO past MN tonight for procedure tomorrow afternoon.? declines interview, appears more depressed and withdrawn per staff. 05/27: anxious re stent removal today.? spoke with sponsor and reframed addiction, no longer craving.? SI and AH a little bit. 05/28: procedure rescheduled for tomorrow in [place].? more flexible and slightly brighter affect. 05/29: procedure completed, pain beginning to subside.? will check in again tomorrow re psych med changes. 05/30: no change in pain from yesterday.? decrease oxycodone PRNs to 7.5 mg each.? schedule tylenol 975 QID for now.? planning for wednesday discharge. 05/31: decrease oxy PRNs from 7.5 each to 5 each.? increase seroquel dosing to 100 BID.? instructed to make use of seroquel PRNs during day.? interested in ECT, may be suitable due to weight loss and severity of risk for suicide due to number and chronicity of interpersonal losses.? had been planning for wednesday discharge, but pt appearing increasingly unstable. 06/01: increase seroquel scheduled and PRN.? DC oxycodone, start tramadol for pain.? DC PRNs for anxiety aside from seroquel.? c/o depression and anxiety with ongoing SI and AH. 06/02: stable presentation.? seen by Bill and scheduled for ECT for tomorrow. 06/03: ECT #1 completed. no other developments. continue current mgmt. Reason for contiued inpatient stay Substantial Risk for: harm to self, inability to function and rapid decompensation Time Spent With Patient Time: Total time managing care of this patient today __20__ minutes.
[2022-06-03] MEDS: cloNIDine HCL 0.1 MG TABLET 0.3 MG PO (20:36)
[2022-06-03] MEDS: traZODone HCL 100 MG TABLET 200 MG PO (20:36)
[2022-06-03] MEDS: QUEtiapine Fumarate 200 MG TABLET PO (20:43)
[2022-06-04 07:00] VITALS: BMI 22.8
[2022-06-04] MEDS: Nicotine 21 MG PATCH.TD24 TRANSDERMA (09:32)
[2022-06-04] MEDS: Acetaminophen 325 MG TABLET 975 MG PO ×3 (09:33→21:53)
[2022-06-04] MEDS: buPROPion HCl XL 150 MG TAB.ER.24H 450 MG PO (09:33)
[2022-06-04] MEDS: amLODIPine Besylate 10 MG TABLET PO (09:34)
[2022-06-04] MEDS: Thiamine HCL 100 MG TABLET PO (09:34)
[2022-06-04] MEDS: Multivitamin TABLET 1 TAB PO (09:34)
[2022-06-04] MEDS: QUEtiapine Fumarate 100 MG TABLET PO ×2 (09:34→21:59)
[2022-06-04] MEDS: Tamsulosin HCL 0.4 MG CAPSULE PO (09:34)
[2022-06-04 09:40] VITALS: BP 113/70; PULSE 56; RESP 16; TEMP 37; O2SAT 98
--- NOTE | 2022-06-04 12:29 | HO.MIDLINE ---
Midline Insertion MIDLINE INSERTION Diagnosis: IV access Indication: ECT Treatments Pertinent Labs: reviewed Technique: Using sterile technique including cap and mask, glove and drape, the right arm was prepped and draped in the usual sterile fashion of full barrier technique with [facility]. Using ultrasound guidance, right brachial vein access was obtained by this RN in second attempt. A 20 guage 8 cm Non-PASV midline was positioned. The procedure was performed in S272. Ultrasound was used to document vein patency and for needle entry. A formal ultrasound picture was recorded. [employer]ist has released the line for use and it is currently dressed with a StatLock, Tegaderm, and CHG disc. Verification has been performed for blood return and line patency. Arm Circumference: 28 cm Equipment: Bard 20 guage 8 cm Non-PASV Midline Catheter Type: 20 guage 8 cm Non- PASV Midline Lot #: [id number]
--- NOTE | 2022-06-04 12:58 | HO.PSYCHPN ---
Subjective Subjective Date of Service: 06/04/22 Reason For Visit: right uretera stone severe depression Interim History: calm, cooperative. found in his room sleeping in bed. easily rousable. states he remains depressed and anxious. discuss expectations for ECT, that he will continue to face severe psychosocial stressors even after the ECT is complete. discuss using tramadol only on ECT days for post-ECT PAGE, with which pt is in agreement. some pain continues fro urinary tract, but it is improving day by day. per staff, slept well. ate lunch. increased anx/dep. visible, pleasant. no groups. poor PO intake. some AH. passive SI. getting midline today, ECT tomorrow. Mental Status Exam Mental Status Exam Narrative: pt is alert, oriented. Normal speech. Moderate eye contact. Affect is appropriate, non-labile, normo-intense. anxiety and depression. No signs of psychosis. no SI/HI/VH expressed. some AH. Cognitively is intact. Judgment is intact Diagnostics Vital Signs (24Hr): Vital Signs - 24 hr 06/03/22 20:22 06/04/22 09:40 Temperature 97.9 F 98.6 F Pulse Rate 72 56 Respiratory Rate 16 16 Blood Pressure 109/61 113/70 Pulse Oximetry 95 98 Oxygen Delivery Method Room Air Room Air BMI result Body Mass Index 23.5 Labs 05/17/22 07:53 05/17/22 07:53 Imaging Radiology Impressions: ITS Impressions Abdomen/Pelvis CT 05/15/22 16:23 IMPRESSION: 5 mm right distal ureteral calculus results in mild asymmetric right hydroureter but no hydronephrosis. Additional tiny nonobstructing bilateral renal calculi are present. Guidance Fluoroscopy 05/19/22 14:52 IMPRESSION: Fluoroscopy provided for the operating room. Please see operative report for additional information. KUB X-Ray 05/28/22 13:03 IMPRESSION: * Nonobstructive bowel gas pattern. Mild colonic stool burden. Medications Medications Current Medications Acetaminophen (Acetaminophen 325 Mg Tablet) 975 mg PO TID [facility] Last Admin: 06/04/22 09:33 Dose: 975 mg Al Hydroxide/Mg Hydroxide (Magnesium Hydrox/Alum Hydrox 30 Ml Oral.Susp) 30 ml PO Q6H PRN PRN Reason: Heartburn/Nausea Amlodipine Besylate (Amlodipine Besylate 10 Mg Tablet) 10 mg PO DAILY [facility]; Protocol Last Admin: 06/04/22 09:34 Dose: 10 mg Bisacodyl (Bisacodyl 10 Mg Supp.Rect) 10 mg NC DAILY PRN PRN Reason: Constipation Last Admin: 05/26/22 18:57 Dose: 10 mg Bupropion HCl (Bupropion Hcl Xl 150 Mg Tab.Er.24h) 450 mg PO DAILY [facility] Last Admin: 06/04/22 09:33 Dose: 450 mg Clonidine HCl (Clonidine Hcl 0.1 Mg Tablet) 0.3 mg PO BEDTIME [facility]; Protocol Last Admin: 06/03/22 20:36 Dose: 0.3 mg Magnesium Hydroxide (Milk Of Magnesia 30 Ml Oral.Susp) 30 ml PO DAILY PRN PRN Reason: Constipation Multivitamins/Vitamin C (Multivitamin Tablet) 1 tab PO DAILY [facility] Last Admin: 06/04/22 09:34 Dose: 1 tab Nicotine (Nicotine 21 Mg Patch.Td24) 21 mg TRANSDERMA DAILY [facility] Last Admin: 06/04/22 09:32 Dose: 21 mg Ondansetron HCl (Ondansetron Odt 4 Mg Tab.Rapdis) 8 mg TRANSLINGU Q6H PRN PRN Reason: nausea Last Admin: 05/21/22 08:29 Dose: 8 mg Polyethylene Glycol (Polyethylene Glycol 3350 17 Gm Powd.Pack) 17 gm PO BID [facility] Last Admin: 06/04/22 09:35 Dose: Not Given Quetiapine Fumarate (Quetiapine Fumarate 100 Mg Tablet) 100 mg PO BEDTIME PRN PRN Reason: Insomnia Last Admin: 05/29/22 22:26 Dose: 100 mg Quetiapine Fumarate (Quetiapine Fumarate 100 Mg Tablet) 100 mg PO Q4H PRN PRN Reason: anxiety/restlessness Last Admin: 06/03/22 15:07 Dose: 100 mg Quetiapine Fumarate (Quetiapine Fumarate 200 Mg Tablet) 200 mg PO BEDTIME [facility] Last Admin: 06/03/22 20:43 Dose: 200 mg Quetiapine Fumarate (Quetiapine Fumarate 100 Mg Tablet) 100 mg PO DAILY [facility] Last Admin: 06/04/22 09:34 Dose: 100 mg Tamsulosin HCl (Tamsulosin Hcl 0.4 Mg Capsule) 0.4 mg PO DAILY [facility] Last Admin: 06/04/22 09:34 Dose: 0.4 mg Thiamine HCl (Thiamine Hcl 100 Mg Tablet) 100 mg PO DAILY [facility] Last Admin: 06/04/22 09:34 Dose: 100 mg Tramadol HCl (Tramadol Hcl 50 Mg Tablet) 50 mg PO Q4H PRN PRN Reason: moderate to severe pain Last Admin: 06/03/22 16:09 Dose: 50 mg Trazodone HCl (Trazodone Hcl 100 Mg Tablet) 200 mg PO BEDTIME [facility] Last Admin: 06/03/22 20:36 Dose: 200 mg Allergies Allergies Allergy/AdvReac Type Severity Reaction Status Date / Time haloperidol [From Haldol] AdvReac see note Verified 05/29/22 11:52 Assessment & Plan Assessment & Plan (1) MDD (major depressive disorder), recurrent, severe, with psychosis: Status: Acute Code(s): F33.3 - Major depressive disorder, recurrent, severe with psychotic symptoms Assessment and Plan: per bill note: Patient has a history of treatment resistant depression with psychosis. Multiple psychosocial stressors limited resources. Patient did benefit on 2-3 occasions at [facility] with a course of ECT under similar circumstances. He did have a central line at [facility] when he last had ECT because of difficulty with IV access this will need to be looked at. Patient able to give informed consent wishes to proceed with ECT aware of risks benefits potential side effect (2) Post traumatic stress disorder (PTSD): Status: Acute Code(s): F43.10 - Post-traumatic stress disorder, unspecified (3) Right ureteral stone: Status: Acute Code(s): N20.1 - Calculus of ureter (4) Hypertension: Status: Acute Code(s): I10 - Essential (primary) hypertension Plan Plan 05/17:? Brian was admitted for safety and stabilization.? He meets criteria for inpatient level of care.? Current medications including Wellbutrin, Seroquel and hydroxyzine were continued.? I added BuSpar 5 mg b.i.d. to be increased over the next several days.? Side effects with regards to dizziness discussed.? Outpatient referrals to be made.? He will meet with his treatment team on 05/18/202205/18:? buspar DCed, seroquel 50 at HS added.? pt will take seroquel 25 PRNs during the day for anxiety.? urological procedure tomorrow to address renal calculus; NPO after MN tonight. 05/19:? no changes to medications regimen.? procedure 1 pm for definitive Tx of kidney stone. 05/20:? ureter stented and stone passed, apparently.? remains in pain with dys- and hematuria.? per urology PA will need to have stent removed in a week and can expect pain and bleeding until then; they are making an appointment for him.? observe for today without making any changes.? pt reports his depression and anxiety have not changed since admission. 05/21:? c/o ongoing depression without relief, anxiety.? now AH starting.? agrees to increase HS seroquel to 100 mg, make use of seroquel 25 mg PRNs.? stent removal scheduled for 05/27 at 2:45.? ongoing pain and bleeding expected to continue through removal of stent. 05/22:? more irritable.? +SI.? weary. ? increased oxycodone dosing from 7.5 mg to 10 mg each.? scheduled oxybutynin 5 TID.? increased seroquel PRNs to 50 mg each.? increased HS seroquel to 100 mg MR x 1. 05/23: Continue current treatment plan. 05/24: Continue current treatment plan.? 05/25: continue current mgmt.? add laxatives as pt requests/tolerates.? stent revision . 05/26: NPO past MN tonight for procedure tomorrow afternoon.? declines interview, appears more depressed and withdrawn per staff. 05/27: anxious re stent removal today.? spoke with sponsor and reframed addiction, no longer craving.? SI and AH a little bit. 05/28: procedure rescheduled for tomorrow in [place].? more flexible and slightly brighter affect. 05/29: procedure completed, pain beginning to subside.? will check in again tomorrow re psych med changes. 05/30: no change in pain from yesterday.? decrease oxycodone PRNs to 7.5 mg each.? schedule tylenol 975 QID for now.? planning for wednesday discharge. 05/31: decrease oxy PRNs from 7.5 each to 5 each.? increase seroquel dosing to 100 BID.? instructed to make use of seroquel PRNs during day.? interested in ECT, may be suitable due to weight loss and severity of risk for suicide due to number and chronicity of interpersonal losses.? had been planning for wednesday discharge, but pt appearing increasingly unstable. 06/01: increase seroquel scheduled and PRN.? DC oxycodone, start tramadol for pain.? DC PRNs for anxiety aside from seroquel.? c/o depression and anxiety with ongoing SI and AH. 06/02: stable presentation.? seen by Bill and scheduled for ECT for tomorrow. 06/03: ECT #1 completed. no other developments. continue current mgmt. 06/04: stably depressed and anxious. passive SI, some AH. ECT scheduled for tomorrow. Reason for contiued inpatient stay Substantial Risk for: harm to self, inability to function and rapid decompensation Time Spent With Patient Time: Total time managing care of this patient today _25___ minutes.
[2022-06-04 21:40] VITALS: BP 122/72; PULSE 78; RESP 18; TEMP 36.2; O2SAT 95
[2022-06-04] MEDS: QUEtiapine Fumarate 200 MG TABLET PO (21:52)
[2022-06-04] MEDS: traZODone HCL 100 MG TABLET 200 MG PO (21:52)
[2022-06-04] MEDS: cloNIDine HCL 0.1 MG TABLET 0.3 MG PO (21:52)
[2022-06-04] MEDS: 0.9 % Sodium Chloride Flush 10 ML SYRINGE 5 ML IVFLUSH (22:56)
[2022-06-05] VITALS (11 sets, daily range): BP systolic 109–149; BP diastolic 67–97; PULSE 47–86; RESP 14–21; TEMP 36.2–37; O2SAT 93–100
[2022-06-05] MEDS: 0.9 % Sodium Chloride Flush 10 ML SYRINGE 5 ML IVFLUSH ×3 (05:48→22:14)
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
--- NOTE | 2022-06-05 07:45 | MHC.SHP ---
Pre-Procedural Eval Section A Date of Service: 06/05/22 The patient is an INPATIENT: Yes Changes since office visit: Yes Patient answered all questions; No Cold of Flu in the past 2 weeks, No New Medical Problems and No Changes in Medication The History & Physical has been completed within 30 days and I have reviewed it.: Yes Section B Chief Complaint: right uretera stone severe depression Allergies: Allergies Allergy/AdvReac Type Severity Reaction Status Date / Time haloperidol [From Haldol] AdvReac see note Verified 05/29/22 11:52 Plan I have reviewed the history and physical and performed a pertinent physical examination on my patient. No changes have occurred unless specified. Time Spent With Patient Time: Total time managing care of this patient today ____ minutes.
--- NOTE | 2022-06-05 08:12 | HO.ECTPROC ---
ECT Procedure Note Diagnosis/Treatment Date of Service: 06/05/22 Diagnosis: Major Depressive Disorder Previous ECT Date: 06/03/22 Current Treatment Number: 2 Treatment: Series Interval Clinical Notes: Midline has been placed for access for patient remains depressed denies active self-harm Time: Total time managing care of this patient today ____ minutes. ECT Settings Device: THYMATRON DGx Electrode Placement: Right Unilateral Program/Pulse Width: 0.50 Energy Percent: 100 Seizure Duration By EEG (in seconds): 54 Medications Administration General Anesthetic: Etomidate (18) Muscle Relaxant: Succinylcholine (100) Ancillary Medications Analgesics: Torodol - Pre ECT Anti-emetics: Zofran - Pre ECT Cardiovascular Medications: Glycopyrrolate (0.2) Miscillaneous Medications: Midazolam (2 mg post) Airway Management Airway Management: Bag Mask Ventilation Treatment Recommendations No Changes Recommended: No change Pt Tolerated Procedure w/o Issue: Yes
[2022-06-05] MEDS: Nicotine 21 MG PATCH.TD24 TRANSDERMA (09:11)
[2022-06-05] MEDS: Acetaminophen 325 MG TABLET 975 MG PO (09:11)
[2022-06-05] MEDS: Multivitamin TABLET 1 TAB PO (09:12)
[2022-06-05] MEDS: QUEtiapine Fumarate 100 MG TABLET PO ×2 (09:12→19:36)
[2022-06-05] MEDS: amLODIPine Besylate 10 MG TABLET PO (09:12)
[2022-06-05] MEDS: buPROPion HCl XL 150 MG TAB.ER.24H 450 MG PO (09:12)
[2022-06-05] MEDS: Thiamine HCL 100 MG TABLET PO (09:12)
[2022-06-05] MEDS: Tamsulosin HCL 0.4 MG CAPSULE PO (09:12)
[2022-06-05] MEDS: traMADoL HCL 50 MG TABLET PO (11:09)
--- NOTE | 2022-06-05 19:49 | HO.PSYCHPN ---
Subjective Subjective Date of Service: 06/05/22 Reason For Visit: right uretera stone severe depression Subjective Notes: Conditional Voluntary Healthcare Proxy: No Interim History: See ECT note patient remains anxious dysphoric future oriented still hopeful regarding ECT has been helpful in the past Medication Compliance: Yes Attending Groups: Intermittent Mental Status Exam Mental Status Exam Patient Appearance: Appropriate Patient Orientation: Person, Place, Time and Situation Level of Consciousness: Awake and Appropriate Patient Behavior: Appropriate Mood Description: Depressed and Blunted Affect Description: Appropriate and Constricted Patient Cognition Impaired: No Ability to Follow Directions: Good Speech Pattern: Clear Memory Description: Intact Hallucinations: None Delusions: Not Present Thought Process: Intact and Goal Oriented Thought Content: positive for Goal Oriented, positive for Preoccupation, negative for Suicidal Ideation or negative for Homicidal Ideation Depressive Symptoms: Increased Anxiety, Increased Irritability, Hopelessness, Increased Fatigue, Loss of Energy and Difficulty Concentrating Judgement: Good Diagnostics Vital Signs (24Hr): Vital Signs - 24 hr 06/06/22 21:45 06/07/22 08:44 Temperature 97.9 F 98.5 F Pulse Rate 75 62 Respiratory Rate 16 18 Blood Pressure 113/74 111/66 Pulse Oximetry 96 91 L Oxygen Delivery Method Room Air Room Air BMI result Body Mass Index 22.8 Labs 05/17/22 07:53 05/17/22 07:53 Imaging Radiology Impressions: ITS Impressions Abdomen/Pelvis CT 05/15/22 16:23 IMPRESSION: 5 mm right distal ureteral calculus results in mild asymmetric right hydroureter but no hydronephrosis. Additional tiny nonobstructing bilateral renal calculi are present. Guidance Fluoroscopy 05/19/22 14:52 IMPRESSION: Fluoroscopy provided for the operating room. Please see operative report for additional information. KUB X-Ray 05/28/22 13:03 IMPRESSION: * Nonobstructive bowel gas pattern. Mild colonic stool burden. Medications Medications Current Medications Acetaminophen (Acetaminophen 325 Mg Tablet) 650 mg PO Q6H PRN PRN Reason: moderate pain Al Hydroxide/Mg Hydroxide (Magnesium Hydrox/Alum Hydrox 30 Ml Oral.Susp) 30 ml PO Q6H PRN PRN Reason: Heartburn/Nausea Amlodipine Besylate (Amlodipine Besylate 10 Mg Tablet) 10 mg PO DAILY [facility]; Protocol Last Admin: 06/07/22 09:51 Dose: 10 mg Bisacodyl (Bisacodyl 10 Mg Supp.Rect) 10 mg [place] DAILY PRN PRN Reason: Constipation Last Admin: 05/26/22 18:57 Dose: 10 mg Bupropion HCl (Bupropion Hcl Xl 150 Mg Tab.Er.24h) 450 mg PO DAILY [facility] Last Admin: 06/07/22 09:51 Dose: 450 mg Clonidine HCl (Clonidine Hcl 0.1 Mg Tablet) 0.3 mg PO BEDTIME [facility]; Protocol Last Admin: 06/06/22 21:48 Dose: 0.3 mg Ibuprofen (Ibuprofen 600 Mg Tablet) 600 mg PO Q6H PRN PRN Reason: moderate pain Last Admin: 06/07/22 11:30 Dose: 600 mg Magnesium Hydroxide (Milk Of Magnesia 30 Ml Oral.Susp) 30 ml PO DAILY PRN PRN Reason: Constipation Last Admin: 06/07/22 09:54 Dose: 30 ml Multivitamins/Vitamin C (Multivitamin Tablet) 1 tab PO DAILY [facility] Last Admin: 06/07/22 09:51 Dose: 1 tab Nicotine (Nicotine 21 Mg Patch.Td24) 21 mg TRANSDERMA DAILY [facility] Last Admin: 06/07/22 09:51 Dose: 21 mg Ondansetron HCl (Ondansetron Odt 4 Mg Tab.Rapdis) 8 mg TRANSLINGU Q6H PRN PRN Reason: nausea Last Admin: 05/21/22 08:29 Dose: 8 mg Polyethylene Glycol (Polyethylene Glycol 3350 17 Gm Powd.Pack) 17 gm PO BID [facility] Last Admin: 06/07/22 09:57 Dose: Not Given Quetiapine Fumarate (Quetiapine Fumarate 100 Mg Tablet) 100 mg PO BEDTIME PRN PRN Reason: Insomnia Last Admin: 06/04/22 21:59 Dose: 100 mg Quetiapine Fumarate (Quetiapine Fumarate 100 Mg Tablet) 100 mg PO Q4H PRN PRN Reason: anxiety/restlessness Last Admin: 06/05/22 19:36 Dose: 100 mg Quetiapine Fumarate (Quetiapine Fumarate 200 Mg Tablet) 200 mg PO BEDTIME [facility] Last Admin: 06/06/22 21:48 Dose: 200 mg Quetiapine Fumarate (Quetiapine Fumarate 100 Mg Tablet) 100 mg PO DAILY [facility] Last Admin: 06/07/22 09:51 Dose: 100 mg Sodium Chloride (0.9 % Sodium Chloride Flush 10 Ml Syringe) 5 ml IVFLUSH Q8H [facility] Last Admin: 06/07/22 15:04 Dose: 5 ml Tamsulosin HCl (Tamsulosin Hcl 0.4 Mg Capsule) 0.4 mg PO DAILY [facility] Last Admin: 06/07/22 09:51 Dose: 0.4 mg Thiamine HCl (Thiamine Hcl 100 Mg Tablet) 100 mg PO DAILY [facility] Last Admin: 06/07/22 09:51 Dose: 100 mg Tramadol HCl (Tramadol Hcl 50 Mg Tablet) 50 mg PO Q4H PRN PRN Reason: moderate to severe pain Last Admin: 06/05/22 11:09 Dose: 50 mg Trazodone HCl (Trazodone Hcl 100 Mg Tablet) 200 mg PO BEDTIME [facility] Last Admin: 06/06/22 21:48 Dose: 200 mg Allergies Allergies Allergy/AdvReac Type Severity Reaction Status Date / Time haloperidol [From Haldol] AdvReac see note Verified 05/29/22 11:52 Assessment & Plan Assessment & Plan (1) MDD (major depressive disorder), recurrent, severe, with psychosis: Status: Acute Code(s): F33.3 - Major depressive disorder, recurrent, severe with psychotic symptoms Assessment and Plan: per bill note: Patient has a history of treatment resistant depression with psychosis. Multiple psychosocial stressors limited resources. Patient did benefit on 2-3 occasions at [facility] with a course of ECT under similar circumstances. He did have a central line at [facility] when he last had ECT because of difficulty with IV access this will need to be looked at. Patient able to give informed consent wishes to proceed with ECT aware of risks benefits potential side effect (2) Post traumatic stress disorder (PTSD): Status: Acute Code(s): F43.10 - Post-traumatic stress disorder, unspecified (3) Right ureteral stone: Status: Acute Code(s): N20.1 - Calculus of ureter (4) Hypertension: Status: Acute Code(s): I10 - Essential (primary) hypertension Plan Plan 05/17:? Brian was admitted for safety and stabilization.? He meets criteria for inpatient level of care.? Current medications including Wellbutrin, Seroquel and hydroxyzine were continued.? I added BuSpar 5 mg b.i.d. to be increased over the next several days.? Side effects with regards to dizziness discussed.? Outpatient referrals to be made.? He will meet with his treatment team on 05/18/202205/18:? buspar DCed, seroquel 50 at HS added.? pt will take seroquel 25 PRNs during the day for anxiety.? urological procedure tomorrow to address renal calculus; NPO after MN tonight. 05/19:? no changes to medications regimen.? procedure 1 pm for definitive Tx of kidney stone. 05/20:? ureter stented and stone passed, apparently.? remains in pain with dys- and hematuria.? per urology PA will need to have stent removed in a week and can expect pain and bleeding until then; they are making an appointment for him.? observe for today without making any changes.? pt reports his depression and anxiety have not changed since admission. 05/21:? c/o ongoing depression without relief, anxiety.? now AH starting.? agrees to increase HS seroquel to 100 mg, make use of seroquel 25 mg PRNs.? stent removal scheduled for 05/27 at 2:45.? ongoing pain and bleeding expected to continue through removal of stent. 05/22:? more irritable.? +SI.? weary. ? increased oxycodone dosing from 7.5 mg to 10 mg each.? scheduled oxybutynin 5 TID.? increased seroquel PRNs to 50 mg each.? increased HS seroquel to 100 mg MR x 1. 05/23: Continue current treatment plan. 05/24: Continue current treatment plan.? 05/25: continue current mgmt.? add laxatives as pt requests/tolerates.? stent revision . 05/26: NPO past MN tonight for procedure tomorrow afternoon.? declines interview, appears more depressed and withdrawn per staff. 05/27: anxious re stent removal today.? spoke with sponsor and reframed addiction, no longer craving.? SI and AH a little bit. 05/28: procedure rescheduled for tomorrow in [place].? more flexible and slightly brighter affect. 05/29: procedure completed, pain beginning to subside.? will check in again tomorrow re psych med changes. 05/30: no change in pain from yesterday.? decrease oxycodone PRNs to 7.5 mg each.? schedule tylenol 975 QID for now.? planning for wednesday discharge. 05/31: decrease oxy PRNs from 7.5 each to 5 each.? increase seroquel dosing to 100 BID.? instructed to make use of seroquel PRNs during day.? interested in ECT, may be suitable due to weight loss and severity of risk for suicide due to number and chronicity of interpersonal losses.? had been planning for wednesday discharge, but pt appearing increasingly unstable. 06/01: increase seroquel scheduled and PRN.? DC oxycodone, start tramadol for pain.? DC PRNs for anxiety aside from seroquel.? c/o depression and anxiety with ongoing SI and AH. 06/02: stable presentation.? seen by Bill and scheduled for ECT for tomorrow. 06/03: ECT #1 completed. no other developments. continue current mgmt. 06/04: stably depressed and anxious. passive SI, some AH. ECT scheduled for tomorrow. 06/05/2022 Continue ECT no side effects noted beyond headache at present Patient educated on: medication risk/benefits and ECT Reason for contiued inpatient stay Substantial Risk for: harm to self and rapid decompensation Time Spent With Patient Time: Total time managing care of this patient today ____ minutes.
[2022-06-05] MEDS: traZODone HCL 100 MG TABLET 200 MG PO (22:12)
[2022-06-05] MEDS: QUEtiapine Fumarate 200 MG TABLET PO (22:12)
[2022-06-05] MEDS: cloNIDine HCL 0.1 MG TABLET 0.3 MG PO (22:12)
[2022-06-06] MEDS: 0.9 % Sodium Chloride Flush 10 ML SYRINGE 5 ML IVFLUSH ×3 (06:32→21:48)
[2022-06-06 08:58] VITALS: BP 114/75; PULSE 56; RESP 16; TEMP 36.8; O2SAT 97
[2022-06-06] MEDS: buPROPion HCl XL 150 MG TAB.ER.24H 450 MG PO (10:46)
[2022-06-06] MEDS: amLODIPine Besylate 10 MG TABLET PO (10:46)
[2022-06-06] MEDS: Acetaminophen 325 MG TABLET 975 MG PO (10:47)
[2022-06-06] MEDS: QUEtiapine Fumarate 100 MG TABLET PO (10:47)
[2022-06-06] MEDS: Tamsulosin HCL 0.4 MG CAPSULE PO (10:47)
[2022-06-06] MEDS: Multivitamin TABLET 1 TAB PO (10:47)
[2022-06-06] MEDS: Nicotine 21 MG PATCH.TD24 TRANSDERMA (10:47)
[2022-06-06] MEDS: Thiamine HCL 100 MG TABLET PO (10:47)
--- NOTE | 2022-06-06 12:59 | HO.PSYCHPN ---
Subjective Subjective Date of Service: 06/06/22 Reason For Visit: right uretera stone severe depression Interim History: calm, cooperative. found in his room sleeping in bed. easily engaged. states he is still depressed and anxious. some pain continues fro urinary tract, but it is improving. slept well. ate lunch. visible, pleasant. no groups. poor PO intake. some AH. passive SI. Medication Compliance: Yes Side effects from medications: No Attending Groups: No Review of Systems Acute medical concerns: No Medical Review of Systems: unchanged Review of Systems Review of Systems Flank pain from kidney stones midline port for ECT Yes all other systems are reviewed and are negative Constitutional: Reports as per HPI Eyes: Reports no additional eye complaints Cardiovascular: Reports no additional cardiovascular complaints Respiratory: Reports no additional respiratory complaints Gastrointestinal: Reports as per HPI Genitourinary: Reports as per HPI Musculoskeletal: Reports no additional musculoskeletal complaints Reports system reviewed and no additional complaints, except as documented Psychiatric: Reports as per HPI Endocrine: Reports no additional endocrine complaints Mental Status Exam Mental Status Exam Narrative: pt is alert, oriented. Normal speech. Moderate eye contact. Affect is appropriate, non-labile, normo-intense. anxiety and depression. No signs of psychosis. no SI/HI/VH expressed. some AH. Cognitively is intact. Judgment is intact Patient Appearance: Fatigued and Disheveled Patient Orientation: Person, Place, Time and Situation Level of Consciousness: Awake Patient Behavior: Appropriate Mood Description: Depressed, Anxious and Blunted Affect Description: Depressed, Anxious and Apprehensive Patient Cognition Impaired: No Ability to Follow Directions: Good Speech Pattern: Clear Memory Description: Intact Diagnostics Vital Signs (24Hr): Vital Signs - 24 hr 06/05/22 21:10 06/06/22 08:58 Temperature 98.6 F 98.3 F Pulse Rate 78 56 Respiratory Rate 16 16 Blood Pressure 120/74 114/75 Pulse Oximetry 95 97 Oxygen Delivery Method Room Air Room Air BMI result Body Mass Index 22.8 Labs 05/17/22 07:53 05/17/22 07:53 Imaging Radiology Impressions: ITS Impressions Abdomen/Pelvis CT 05/15/22 16:23 IMPRESSION: 5 mm right distal ureteral calculus results in mild asymmetric right hydroureter but no hydronephrosis. Additional tiny nonobstructing bilateral renal calculi are present. Guidance Fluoroscopy 05/19/22 14:52 IMPRESSION: Fluoroscopy provided for the operating room. Please see operative report for additional information. KUB X-Ray 05/28/22 13:03 IMPRESSION: * Nonobstructive bowel gas pattern. Mild colonic stool burden. Medications Medications Current Medications Acetaminophen (Acetaminophen 325 Mg Tablet) 975 mg PO TID [facility] Last Admin: 06/06/22 10:47 Dose: 975 mg Al Hydroxide/Mg Hydroxide (Magnesium Hydrox/Alum Hydrox 30 Ml Oral.Susp) 30 ml PO Q6H PRN PRN Reason: Heartburn/Nausea Amlodipine Besylate (Amlodipine Besylate 10 Mg Tablet) 10 mg PO DAILY [facility]; Protocol Last Admin: 06/06/22 10:46 Dose: 10 mg Bisacodyl (Bisacodyl 10 Mg Supp.Rect) 10 mg [place] DAILY PRN PRN Reason: Constipation Last Admin: 05/26/22 18:57 Dose: 10 mg Bupropion HCl (Bupropion Hcl Xl 150 Mg Tab.Er.24h) 450 mg PO DAILY [facility] Last Admin: 06/06/22 10:46 Dose: 450 mg Clonidine HCl (Clonidine Hcl 0.1 Mg Tablet) 0.3 mg PO BEDTIME [facility]; Protocol Last Admin: 06/05/22 22:12 Dose: 0.3 mg Lactated Ringer's (Lr) 1,000 mls @ 50 mls/hr IVCONT .Q20H [facility] Last Admin: 06/06/22 04:10 Dose: Not Given Ibuprofen (Ibuprofen 600 Mg Tablet) 600 mg PO Q6H PRN PRN Reason: moderate pain Magnesium Hydroxide (Milk Of Magnesia 30 Ml Oral.Susp) 30 ml PO DAILY PRN PRN Reason: Constipation Multivitamins/Vitamin C (Multivitamin Tablet) 1 tab PO DAILY [facility] Last Admin: 06/06/22 10:47 Dose: 1 tab Nicotine (Nicotine 21 Mg Patch.Td24) 21 mg TRANSDERMA DAILY [facility] Last Admin: 06/06/22 10:47 Dose: 21 mg Ondansetron HCl (Ondansetron Odt 4 Mg Tab.Rapdis) 8 mg TRANSLINGU Q6H PRN PRN Reason: nausea Last Admin: 05/21/22 08:29 Dose: 8 mg Polyethylene Glycol (Polyethylene Glycol 3350 17 Gm Powd.Pack) 17 gm PO BID [facility] Last Admin: 06/06/22 10:48 Dose: Not Given Quetiapine Fumarate (Quetiapine Fumarate 100 Mg Tablet) 100 mg PO BEDTIME PRN PRN Reason: Insomnia Last Admin: 06/04/22 21:59 Dose: 100 mg Quetiapine Fumarate (Quetiapine Fumarate 100 Mg Tablet) 100 mg PO Q4H PRN PRN Reason: anxiety/restlessness Last Admin: 06/05/22 19:36 Dose: 100 mg Quetiapine Fumarate (Quetiapine Fumarate 200 Mg Tablet) 200 mg PO BEDTIME [facility] Last Admin: 06/05/22 22:12 Dose: 200 mg Quetiapine Fumarate (Quetiapine Fumarate 100 Mg Tablet) 100 mg PO DAILY [facility] Last Admin: 06/06/22 10:47 Dose: 100 mg Sodium Chloride (0.9 % Sodium Chloride Flush 10 Ml Syringe) 5 ml IVFLUSH Q8H [facility] Last Admin: 06/06/22 06:32 Dose: 5 ml Tamsulosin HCl (Tamsulosin Hcl 0.4 Mg Capsule) 0.4 mg PO DAILY [facility] Last Admin: 06/06/22 10:47 Dose: 0.4 mg Thiamine HCl (Thiamine Hcl 100 Mg Tablet) 100 mg PO DAILY [facility] Last Admin: 06/06/22 10:47 Dose: 100 mg Tramadol HCl (Tramadol Hcl 50 Mg Tablet) 50 mg PO Q4H PRN PRN Reason: moderate to severe pain Last Admin: 06/05/22 11:09 Dose: 50 mg Trazodone HCl (Trazodone Hcl 100 Mg Tablet) 200 mg PO BEDTIME [facility] Last Admin: 06/05/22 22:12 Dose: 200 mg Allergies Allergies Allergy/AdvReac Type Severity Reaction Status Date / Time haloperidol [From Haldol] AdvReac see note Verified 05/29/22 11:52 Assessment & Plan Assessment & Plan (1) MDD (major depressive disorder), recurrent, severe, with psychosis: Status: Acute Code(s): F33.3 - Major depressive disorder, recurrent, severe with psychotic symptoms Assessment and Plan: per bill note: Patient has a history of treatment resistant depression with psychosis. Multiple psychosocial stressors limited resources. Patient did benefit on 2-3 occasions at [facility] with a course of ECT under similar circumstances. He did have a central line at [facility] when he last had ECT because of difficulty with IV access this will need to be looked at. Patient able to give informed consent wishes to proceed with ECT aware of risks benefits potential side effect (2) Post traumatic stress disorder (PTSD): Status: Acute Code(s): F43.10 - Post-traumatic stress disorder, unspecified (3) Right ureteral stone: Status: Acute Code(s): N20.1 - Calculus of ureter (4) Hypertension: Status: Acute Code(s): I10 - Essential (primary) hypertension Plan Plan 05/17:? Brian was admitted for safety and stabilization.? He meets criteria for inpatient level of care.? Current medications including Wellbutrin, Seroquel and hydroxyzine were continued.? I added BuSpar 5 mg b.i.d. to be increased over the next several days.? Side effects with regards to dizziness discussed.? Outpatient referrals to be made.? He will meet with his treatment team on 05/18/202205/18:? buspar DCed, seroquel 50 at HS added.? pt will take seroquel 25 PRNs during the day for anxiety.? urological procedure tomorrow to address renal calculus; NPO after MN tonight. 05/19:? no changes to medications regimen.? procedure 1 pm for definitive Tx of kidney stone. 05/20:? ureter stented and stone passed, apparently.? remains in pain with dys- and hematuria.? per urology PA will need to have stent removed in a week and can expect pain and bleeding until then; they are making an appointment for him.? observe for today without making any changes.? pt reports his depression and anxiety have not changed since admission. 05/21:? c/o ongoing depression without relief, anxiety.? now AH starting.? agrees to increase HS seroquel to 100 mg, make use of seroquel 25 mg PRNs.? stent removal scheduled for 05/27 at 2:45.? ongoing pain and bleeding expected to continue through removal of stent. 05/22:? more irritable.? +SI.? weary. ? increased oxycodone dosing from 7.5 mg to 10 mg each.? scheduled oxybutynin 5 TID.? increased seroquel PRNs to 50 mg each.? increased HS seroquel to 100 mg MR x 1. 05/23: Continue current treatment plan. 05/24: Continue current treatment plan.? 05/25: continue current mgmt.? add laxatives as pt requests/tolerates.? stent revision . 05/26: NPO past MN tonight for procedure tomorrow afternoon.? declines interview, appears more depressed and withdrawn per staff. 05/27: anxious re stent removal today.? spoke with sponsor and reframed addiction, no longer craving.? SI and AH a little bit. 05/28: procedure rescheduled for tomorrow in [place].? more flexible and slightly brighter affect. 05/29: procedure completed, pain beginning to subside.? will check in again tomorrow re psych med changes. 05/30: no change in pain from yesterday.? decrease oxycodone PRNs to 7.5 mg each.? schedule tylenol 975 QID for now.? planning for wednesday discharge. 05/31: decrease oxy PRNs from 7.5 each to 5 each.? increase seroquel dosing to 100 BID.? instructed to make use of seroquel PRNs during day.? interested in ECT, may be suitable due to weight loss and severity of risk for suicide due to number and chronicity of interpersonal losses.? had been planning for wednesday discharge, but pt appearing increasingly unstable. 06/01: increase seroquel scheduled and PRN.? DC oxycodone, start tramadol for pain.? DC PRNs for anxiety aside from seroquel.? c/o depression and anxiety with ongoing SI and AH. 06/02: stable presentation.? seen by Bill and scheduled for ECT for tomorrow. 06/03: ECT #1 completed. no other developments. continue current mgmt. 06/04: stably depressed and anxious. passive SI, some AH. ECT scheduled for tomorrow. 06/06 continue current treatment plan; tylenol dose lowered to 625 mg q 6 hrs prn due to less pain Reason for contiued inpatient stay Substantial Risk for: harm to self, inability to function, rapid decompensation and med/psych decompensation Time Spent With Patient Time: Total time managing care of this patient today ____ minutes.
--- NOTE | 2022-06-06 14:33 | PC.NURSE ---
Patients Mid-Line flushed with 5ml of NS as ordered. Line flushed without any resistance or signs of infiltration. Pt denies discomfort. Dsg is intact, no drainage, redness or signs of infection at the site. Dressing to be changed on 06/07 as ordered.
[2022-06-06 21:45] VITALS: BP 113/74; PULSE 75; RESP 16; TEMP 36.6; O2SAT 96
[2022-06-06] MEDS: QUEtiapine Fumarate 200 MG TABLET PO (21:48)
[2022-06-06] MEDS: traZODone HCL 100 MG TABLET 200 MG PO (21:48)
[2022-06-06] MEDS: cloNIDine HCL 0.1 MG TABLET 0.3 MG PO (21:48)
[2022-06-07] MEDS: 0.9 % Sodium Chloride Flush 10 ML SYRINGE 5 ML IVFLUSH ×3 (06:00→21:15)
[2022-06-07 08:44] VITALS: BP 111/66; PULSE 62; RESP 18; TEMP 36.9; O2SAT 91
[2022-06-07] MEDS: Tamsulosin HCL 0.4 MG CAPSULE PO (09:51)
[2022-06-07] MEDS: Thiamine HCL 100 MG TABLET PO (09:51)
[2022-06-07] MEDS: Nicotine 21 MG PATCH.TD24 TRANSDERMA (09:51)
[2022-06-07] MEDS: amLODIPine Besylate 10 MG TABLET PO (09:51)
[2022-06-07] MEDS: QUEtiapine Fumarate 100 MG TABLET PO ×2 (09:51→20:34)
[2022-06-07] MEDS: buPROPion HCl XL 150 MG TAB.ER.24H 450 MG PO (09:51)
[2022-06-07] MEDS: Multivitamin TABLET 1 TAB PO (09:51)
[2022-06-07] MEDS: Milk of Magnesia 30 ML ORAL.SUSP PO (09:54)
--- NOTE | 2022-06-07 10:14 | P.PNPSI_ITS ---
Subjective Subjective Date of Service: 06/07/22 Reason For Visit: right uretera stone severe depression Subjective Notes: Conditional Voluntary Interim History: calm, cooperative. found in his room sleeping in bed. easily engaged. states he is still depressed and anxious but feels the ECT might be helping a little. denies pain today. slept well. ate lunch. visible, pleasant. no groups. some AH. passive SI. Medication Compliance: Yes Side effects from medications: No Attending Groups: No Review of Systems Acute medical concerns: No Review of Systems Review of Systems Flank pain from kidney stones midline port for ECT Yes all other systems are reviewed and are negative Constitutional: Reports as per HPI Eyes: Reports no additional eye complaints Cardiovascular: Reports no additional cardiovascular complaints Respiratory: Reports no additional respiratory complaints Gastrointestinal: Reports as per HPI Genitourinary: Reports as per HPI Musculoskeletal: Reports no additional musculoskeletal complaints Reports system reviewed and no additional complaints, except as documented Psychiatric: Reports as per HPI Endocrine: Reports no additional endocrine complaints Mental Status Exam Mental Status Exam Narrative: pt is alert, oriented. Normal speech. Moderate eye contact. Affect is appropriate, non-labile, anxiety and depression. No signs of psychosis. no SI/HI/VH expressed. some AH. Cognitively is intact. Judgment is intact Patient Appearance: Fatigued and Disheveled Patient Orientation: Person, Place, Time and Situation Level of Consciousness: Awake Patient Behavior: Appropriate Mood Description: Depressed, Anxious and Blunted Affect Description: Depressed, Anxious and Apprehensive Patient Cognition Impaired: No Ability to Follow Directions: Good Speech Pattern: Clear Memory Description: Intact Diagnostics Vital Signs (24Hr): Vital Signs - 24 hr 06/06/22 21:45 06/07/22 08:44 Temperature 97.9 F 98.5 F Pulse Rate 75 62 Respiratory Rate 16 18 Blood Pressure 113/74 111/66 Pulse Oximetry 96 91 L Oxygen Delivery Method Room Air Room Air BMI result Body Mass Index 22.8 Labs 05/17/22 07:53 05/17/22 07:53 Imaging Radiology Impressions: ITS Impressions Abdomen/Pelvis CT 05/15/22 16:23 IMPRESSION: 5 mm right distal ureteral calculus results in mild asymmetric right hydroureter but no hydronephrosis. Additional tiny nonobstructing bilateral renal calculi are present. Guidance Fluoroscopy 05/19/22 14:52 IMPRESSION: Fluoroscopy provided for the operating room. Please see operative report for additional information. KUB X-Ray 05/28/22 13:03 IMPRESSION: * Nonobstructive bowel gas pattern. Mild colonic stool burden. Medications Medications Current Medications Acetaminophen (Acetaminophen 325 Mg Tablet) 650 mg PO Q6H PRN PRN Reason: moderate pain Al Hydroxide/Mg Hydroxide (Magnesium Hydrox/Alum Hydrox 30 Ml Oral.Susp) 30 ml PO Q6H PRN PRN Reason: Heartburn/Nausea Amlodipine Besylate (Amlodipine Besylate 10 Mg Tablet) 10 mg PO DAILY [facility]; Protocol Last Admin: 06/07/22 09:51 Dose: 10 mg Bisacodyl (Bisacodyl 10 Mg Supp.Rect) 10 mg [place] DAILY PRN PRN Reason: Constipation Last Admin: 05/26/22 18:57 Dose: 10 mg Bupropion HCl (Bupropion Hcl Xl 150 Mg Tab.Er.24h) 450 mg PO DAILY [facility] Last Admin: 06/07/22 09:51 Dose: 450 mg Clonidine HCl (Clonidine Hcl 0.1 Mg Tablet) 0.3 mg PO BEDTIME [facility]; Protocol Last Admin: 06/06/22 21:48 Dose: 0.3 mg Ibuprofen (Ibuprofen 600 Mg Tablet) 600 mg PO Q6H PRN PRN Reason: moderate pain Magnesium Hydroxide (Milk Of Magnesia 30 Ml Oral.Susp) 30 ml PO DAILY PRN PRN Reason: Constipation Last Admin: 06/07/22 09:54 Dose: 30 ml Multivitamins/Vitamin C (Multivitamin Tablet) 1 tab PO DAILY [facility] Last Admin: 06/07/22 09:51 Dose: 1 tab Nicotine (Nicotine 21 Mg Patch.Td24) 21 mg TRANSDERMA DAILY [facility] Last Admin: 06/07/22 09:51 Dose: 21 mg Ondansetron HCl (Ondansetron Odt 4 Mg Tab.Rapdis) 8 mg TRANSLINGU Q6H PRN PRN Reason: nausea Last Admin: 05/21/22 08:29 Dose: 8 mg Polyethylene Glycol (Polyethylene Glycol 3350 17 Gm Powd.Pack) 17 gm PO BID [facility] Last Admin: 06/07/22 09:57 Dose: Not Given Quetiapine Fumarate (Quetiapine Fumarate 100 Mg Tablet) 100 mg PO BEDTIME PRN PRN Reason: Insomnia Last Admin: 06/04/22 21:59 Dose: 100 mg Quetiapine Fumarate (Quetiapine Fumarate 100 Mg Tablet) 100 mg PO Q4H PRN PRN Reason: anxiety/restlessness Last Admin: 06/05/22 19:36 Dose: 100 mg Quetiapine Fumarate (Quetiapine Fumarate 200 Mg Tablet) 200 mg PO BEDTIME [facility] Last Admin: 06/06/22 21:48 Dose: 200 mg Quetiapine Fumarate (Quetiapine Fumarate 100 Mg Tablet) 100 mg PO DAILY [facility] Last Admin: 06/07/22 09:51 Dose: 100 mg Sodium Chloride (0.9 % Sodium Chloride Flush 10 Ml Syringe) 5 ml IVFLUSH Q8H [facility] Last Admin: 06/07/22 06:00 Dose: 5 ml Tamsulosin HCl (Tamsulosin Hcl 0.4 Mg Capsule) 0.4 mg PO DAILY [facility] Last Admin: 06/07/22 09:51 Dose: 0.4 mg Thiamine HCl (Thiamine Hcl 100 Mg Tablet) 100 mg PO DAILY [facility] Last Admin: 06/07/22 09:51 Dose: 100 mg Tramadol HCl (Tramadol Hcl 50 Mg Tablet) 50 mg PO Q4H PRN PRN Reason: moderate to severe pain Last Admin: 06/05/22 11:09 Dose: 50 mg Trazodone HCl (Trazodone Hcl 100 Mg Tablet) 200 mg PO BEDTIME [facility] Last Admin: 06/06/22 21:48 Dose: 200 mg Allergies Allergies Allergy/AdvReac Type Severity Reaction Status Date / Time haloperidol [From Haldol] AdvReac see note Verified 05/29/22 11:52 Assessment & Plan Assessment & Plan (1) MDD (major depressive disorder), recurrent, severe, with psychosis: Status: Acute Code(s): F33.3 - Major depressive disorder, recurrent, severe with psychotic symptoms Assessment and Plan: per bill note: Patient has a history of treatment resistant depression with psychosis. Multiple psychosocial stressors limited resources. Patient did benefit on 2-3 occasions at [facility] with a course of ECT under similar circumstances. He did have a central line at [facility] when he last had ECT because of difficulty with IV access this will need to be looked at. Patient able to give informed consent wishes to proceed with ECT aware of risks benefits potential side effect (2) Post traumatic stress disorder (PTSD): Status: Acute Code(s): F43.10 - Post-traumatic stress disorder, unspecified (3) Right ureteral stone: Status: Acute Code(s): N20.1 - Calculus of ureter (4) Hypertension: Status: Acute Code(s): I10 - Essential (primary) hypertension Plan Plan 05/17:? Brian was admitted for safety and stabilization.? He meets criteria for inpatient level of care.? Current medications including Wellbutrin, Seroquel and hydroxyzine were continued.? I added BuSpar 5 mg b.i.d. to be increased over the next several days.? Side effects with regards to dizziness discussed.? Outpatient referrals to be made.? He will meet with his treatment team on 05/18/202205/18:? buspar DCed, seroquel 50 at HS added.? pt will take seroquel 25 PRNs during the day for anxiety.? urological procedure tomorrow to address renal calculus; NPO after MN tonight. 05/19:? no changes to medications regimen.? procedure 1 pm for definitive Tx of kidney stone. 05/20:? ureter stented and stone passed, apparently.? remains in pain with dys- and hematuria.? per urology PA will need to have stent removed in a week and can expect pain and bleeding until then; they are making an appointment for him.? observe for today without making any changes.? pt reports his depression and anxiety have not changed since admission. 05/21:? c/o ongoing depression without relief, anxiety.? now AH starting.? agrees to increase HS seroquel to 100 mg, make use of seroquel 25 mg PRNs.? stent removal scheduled for 05/27 at 2:45.? ongoing pain and bleeding expected to continue through removal of stent. 05/22:? more irritable.? +SI.? weary. ? increased oxycodone dosing from 7.5 mg to 10 mg each.? scheduled oxybutynin 5 TID.? increased seroquel PRNs to 50 mg each.? increased HS seroquel to 100 mg MR x 1. 05/23: Continue current treatment plan. 05/24: Continue current treatment plan.? 05/25: continue current mgmt.? add laxatives as pt requests/tolerates.? stent revision weds. 05/26: NPO past MN tonight for procedure tomorrow afternoon.? declines interview, appears more depressed and withdrawn per staff. 05/27: anxious re stent removal today.? spoke with sponsor and reframed addiction, no longer craving.? SI and AH a little bit. 05/28: procedure rescheduled for tomorrow in [place].? more flexible and slightly brighter affect. 05/29: procedure completed, pain beginning to subside.? will check in again tomorrow re psych med changes. 05/30: no change in pain from yesterday.? decrease oxycodone PRNs to 7.5 mg each.? schedule tylenol 975 QID for now.? planning for wednesday discharge. 05/31: decrease oxy PRNs from 7.5 each to 5 each.? increase seroquel dosing to 100 BID.? instructed to make use of seroquel PRNs during day.? interested in ECT, may be suitable due to weight loss and severity of risk for suicide due to number and chronicity of interpersonal losses.? had been planning for wednesday discharge, but pt appearing increasingly unstable. 06/01: increase seroquel scheduled and PRN.? DC oxycodone, start tramadol for pain.? DC PRNs for anxiety aside from seroquel.? c/o depression and anxiety with ongoing SI and AH. 06/02: stable presentation.? seen by Bill and scheduled for ECT for tomorrow. 06/03: ECT #1 completed. no other developments. continue current mgmt. 06/04: stably depressed and anxious. passive SI, some AH. ECT scheduled for tomorrow. 06/06 continue current treatment plan; tylenol dose lowered to 625 mg q 6 hrs prn due to less pain 06/07/ continue current treatment plan Reason for contiued inpatient stay Substantial Risk for: harm to self, inability to function and med/psych decompensation Time Spent With Patient Time: Total time managing care of this patient today ____ minutes.
[2022-06-07] MEDS: Ibuprofen 600 MG TABLET PO (11:30)
[2022-06-07 20:30] VITALS: BP 127/77; PULSE 112; RESP 18; TEMP 36.6; O2SAT 97
[2022-06-07] MEDS: traZODone HCL 100 MG TABLET 200 MG PO (20:34)
[2022-06-07] MEDS: cloNIDine HCL 0.1 MG TABLET 0.3 MG PO (20:34)
[2022-06-07] MEDS: QUEtiapine Fumarate 200 MG TABLET PO (20:34)
[2022-06-08] VITALS (12 sets, daily range): BP systolic 100–135; BP diastolic 57–88; PULSE 56–85; RESP 13–18; TEMP 36.1–36.9; O2SAT 94–98
[2022-06-08] MEDS: 0.9 % Sodium Chloride Flush 10 ML SYRINGE 5 ML IVFLUSH ×3 (05:47→22:45)
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
--- NOTE | 2022-06-08 07:02 | MHC.SHP ---
Pre-Procedural Eval Section A Date of Service: 06/08/22 The patient is an INPATIENT: Yes Changes since office visit: No Cold of Flu in the past 2 weeks, No New Medical Problems, No Changes in Medication and No Patient answered all questions The History & Physical has been completed within 30 days and I have reviewed it.: Yes Section B Chief Complaint: right uretera stone severe depression Allergies: Allergies Allergy/AdvReac Type Severity Reaction Status Date / Time haloperidol [From Haldol] AdvReac see note Verified 05/29/22 11:52 Plan I have reviewed the history and physical and performed a pertinent physical examination on my patient. No changes have occurred unless specified. Time Spent With Patient Time: Total time managing care of this patient today ____ minutes.
--- NOTE | 2022-06-08 07:21 | HO.ECTPROC ---
ECT Procedure Note Diagnosis/Treatment Date of Service: 06/08/22 Diagnosis: Major Depressive Disorder Previous ECT Date: 06/05/22 Current Treatment Number: 3 Treatment: Series Interval Clinical Notes: The patient reports improvement of dysphoria, still symptomatic but feeling much better. No headaches with the previous ECT. Time: Total time managing care of this patient today _30___ minutes. ECT Settings Device: THYMATRON DGx Electrode Placement: Right Unilateral Program/Pulse Width: 0.50 Energy Percent: 100 Seizure Duration By EEG (in seconds): 50 By Motor Observation (in seconds): 35 Medications Administration General Anesthetic: Etomidate (18) Muscle Relaxant: Succinylcholine (100) Ancillary Medications Analgesics: Torodol - Pre ECT Anti-emetics: Zofran - Pre ECT Cardiovascular Medications: Glycopyrrolate Miscillaneous Medications: Propofol and Midazolam Airway Management Airway Management: Bag Mask Ventilation Treatment Recommendations No Changes Recommended: No change Pt Tolerated Procedure w/o Issue: Yes
[2022-06-08] MEDS: buPROPion HCl XL 150 MG TAB.ER.24H 450 MG PO (09:26)
[2022-06-08] MEDS: Multivitamin TABLET 1 TAB PO (09:27)
[2022-06-08] MEDS: Thiamine HCL 100 MG TABLET PO (09:28)
[2022-06-08] MEDS: Tamsulosin HCL 0.4 MG CAPSULE PO (09:28)
[2022-06-08] MEDS: QUEtiapine Fumarate 100 MG TABLET PO ×3 (09:28→23:16)
[2022-06-08] MEDS: traMADoL HCL 50 MG TABLET PO ×2 (09:29→15:20)
[2022-06-08] MEDS: Nicotine 21 MG PATCH.TD24 TRANSDERMA (09:29)
--- NOTE | 2022-06-08 14:01 | PC.NURSE ---
Patient is visible on unit, conversing w/ peer. Patient, on assessment, reports that he has a headache 10/10, some mild dizziness, and memory loss. Dr Vasquez notified, patient encouraged to drink fluids. Patient declined acetaminophen, requested Tramadol but order no longer valid. Dr. Vasquez aware..
--- NOTE | 2022-06-08 15:14 | HO.PSYCHPN ---
Subjective Subjective Date of Service: 06/08/22 Reason For Visit: right uretera stone severe depression Subjective Notes: Conditional Voluntary Healthcare Proxy: No Interim History: See ECT note patient remains anxious dysphoric future oriented still hopeful regarding ECT has been helpful in the past ruminating hopeless helpless at times Intermittantly agitated c/o Harrell post ect has had number 3 today Medication Compliance: Yes Attending Groups: Intermittent Mental Status Exam Mental Status Exam Patient Appearance: Appropriate Patient Orientation: Person, Place, Time and Situation Level of Consciousness: Awake and Appropriate Patient Behavior: Appropriate Mood Description: Depressed, Blunted and Apprehensive Affect Description: Appropriate and Constricted Patient Cognition Impaired: No Ability to Follow Directions: Good Speech Pattern: Clear Memory Description: Recent Impaired Hallucinations: None and Auditory Delusions: Not Present Thought Process: Intact and Goal Oriented Thought Content: positive for Goal Oriented, positive for Preoccupation, negative for Suicidal Ideation or negative for Homicidal Ideation Depressive Symptoms: Increased Anxiety, Increased Irritability, Hopelessness, Increased Fatigue, Loss of Energy and Difficulty Concentrating Judgement: Good Diagnostics Vital Signs (24Hr): Vital Signs - 24 hr 06/08/22 05:49 06/07/22 20:30 06/08/22 05:50 Temperature 97.6 F 97.9 F 97.6 F Pulse Rate 58 112 H 58 Respiratory Rate 16 18 16 Blood Pressure 104/66 127/77 104/66 Pulse Oximetry 97 97 97 Oxygen Delivery Method Room Air Room Air Oxygen Flow Rate 06/08/22 06:35 06/08/22 07:43 06/08/22 07:48 Temperature 97 F 98.4 F Pulse Rate 56 72 77 Respiratory Rate 16 16 13 Blood Pressure 124/77 133/88 126/83 Pulse Oximetry 98 97 97 Oxygen Delivery Method Room Air Nasal Cannula Nasal Cannula Oxygen Flow Rate 2 2 06/08/22 07:53 06/08/22 07:58 06/08/22 08:13 Temperature Pulse Rate 85 81 74 Respiratory Rate 14 14 16 Blood Pressure 104/57 L 114/79 121/81 Pulse Oximetry 95 94 94 Oxygen Delivery Method Room Air Room Air Room Air Oxygen Flow Rate 06/08/22 08:28 06/08/22 08:00 06/08/22 08:00 Temperature 97.8 F 97.6 F 97.6 F Pulse Rate 72 81 81 Respiratory Rate 18 18 18 Blood Pressure 116/79 100/70 100/70 Pulse Oximetry 94 97 97 Oxygen Delivery Method Room Air Room Air Oxygen Flow Rate 06/08/22 13:53 Temperature 97.9 F Pulse Rate 65 Respiratory Rate 18 Blood Pressure 135/78 Pulse Oximetry 95 Oxygen Delivery Method Room Air Oxygen Flow Rate BMI result Body Mass Index 22.8 Labs 05/17/22 07:53 05/17/22 07:53 Imaging Radiology Impressions: ITS Impressions Abdomen/Pelvis CT 05/15/22 16:23 IMPRESSION: 5 mm right distal ureteral calculus results in mild asymmetric right hydroureter but no hydronephrosis. Additional tiny nonobstructing bilateral renal calculi are present. Guidance Fluoroscopy 05/19/22 14:52 IMPRESSION: Fluoroscopy provided for the operating room. Please see operative report for additional information. KUB X-Ray 05/28/22 13:03 IMPRESSION: * Nonobstructive bowel gas pattern. Mild colonic stool burden. Medications Medications Current Medications Acetaminophen (Acetaminophen 325 Mg Tablet) 650 mg PO Q6H PRN PRN Reason: moderate pain Al Hydroxide/Mg Hydroxide (Magnesium Hydrox/Alum Hydrox 30 Ml Oral.Susp) 30 ml PO Q6H PRN PRN Reason: Heartburn/Nausea Amlodipine Besylate (Amlodipine Besylate 10 Mg Tablet) 10 mg PO DAILY [facility]; Protocol Last Admin: 06/08/22 09:30 Dose: Not Given Bisacodyl (Bisacodyl 10 Mg Supp.Rect) 10 mg [place] DAILY PRN PRN Reason: Constipation Last Admin: 05/26/22 18:57 Dose: 10 mg Bupropion HCl (Bupropion Hcl Xl 150 Mg Tab.Er.24h) 450 mg PO DAILY [facility] Last Admin: 06/08/22 09:26 Dose: 450 mg Clonidine HCl (Clonidine Hcl 0.1 Mg Tablet) 0.3 mg PO BEDTIME [facility]; Protocol Last Admin: 06/07/22 20:34 Dose: 0.3 mg Ibuprofen (Ibuprofen 600 Mg Tablet) 600 mg PO Q6H PRN PRN Reason: moderate pain Last Admin: 06/07/22 11:30 Dose: 600 mg Magnesium Hydroxide (Milk Of Magnesia 30 Ml Oral.Susp) 30 ml PO DAILY PRN PRN Reason: Constipation Last Admin: 06/07/22 09:54 Dose: 30 ml Multivitamins/Vitamin C (Multivitamin Tablet) 1 tab PO DAILY [facility] Last Admin: 06/08/22 09:27 Dose: 1 tab Nicotine (Nicotine 21 Mg Patch.Td24) 21 mg TRANSDERMA DAILY [facility] Last Admin: 06/08/22 09:29 Dose: 21 mg Ondansetron HCl (Ondansetron Odt 4 Mg Tab.Rapdis) 8 mg TRANSLINGU Q6H PRN PRN Reason: nausea Last Admin: 05/21/22 08:29 Dose: 8 mg Polyethylene Glycol (Polyethylene Glycol 3350 17 Gm Powd.Pack) 17 gm PO BID [facility] Last Admin: 06/08/22 09:32 Dose: Not Given Quetiapine Fumarate (Quetiapine Fumarate 100 Mg Tablet) 100 mg PO BEDTIME PRN PRN Reason: Insomnia Last Admin: 06/07/22 20:34 Dose: 100 mg Quetiapine Fumarate (Quetiapine Fumarate 100 Mg Tablet) 100 mg PO Q4H PRN PRN Reason: anxiety/restlessness Last Admin: 06/05/22 19:36 Dose: 100 mg Quetiapine Fumarate (Quetiapine Fumarate 200 Mg Tablet) 200 mg PO BEDTIME [facility] Last Admin: 06/07/22 20:34 Dose: 200 mg Quetiapine Fumarate (Quetiapine Fumarate 100 Mg Tablet) 100 mg PO DAILY [facility] Last Admin: 06/08/22 09:28 Dose: 100 mg Sodium Chloride (0.9 % Sodium Chloride Flush 10 Ml Syringe) 5 ml IVFLUSH Q8H [facility] Last Admin: 06/08/22 13:59 Dose: 5 ml Tamsulosin HCl (Tamsulosin Hcl 0.4 Mg Capsule) 0.4 mg PO DAILY [facility] Last Admin: 06/08/22 09:28 Dose: 0.4 mg Thiamine HCl (Thiamine Hcl 100 Mg Tablet) 100 mg PO DAILY [facility] Last Admin: 06/08/22 09:28 Dose: 100 mg Trazodone HCl (Trazodone Hcl 100 Mg Tablet) 200 mg PO BEDTIME [facility] Last Admin: 06/07/22 20:34 Dose: 200 mg Allergies Allergies Allergy/AdvReac Type Severity Reaction Status Date / Time haloperidol [From Haldol] AdvReac see note Verified 05/29/22 11:52 Assessment & Plan Assessment & Plan (1) MDD (major depressive disorder), recurrent, severe, with psychosis: Status: Acute Code(s): F33.3 - Major depressive disorder, recurrent, severe with psychotic symptoms Assessment and Plan: per christina note: Patient has a history of treatment resistant depression with psychosis. Multiple psychosocial stressors limited resources. Patient did benefit on 2-3 occasions at [facility] with a course of ECT under similar circumstances. He did have a central line at [facility] when he last had ECT because of difficulty with IV access this will need to be looked at. Patient able to give informed consent wishes to proceed with ECT aware of risks benefits potential side effect (2) Post traumatic stress disorder (PTSD): Status: Acute Code(s): F43.10 - Post-traumatic stress disorder, unspecified (3) Right ureteral stone: Status: Acute Code(s): N20.1 - Calculus of ureter (4) Hypertension: Status: Acute Code(s): I10 - Essential (primary) hypertension Plan Plan 05/17:? Brian was admitted for safety and stabilization.? He meets criteria for inpatient level of care.? Current medications including Wellbutrin, Seroquel and hydroxyzine were continued.? I added BuSpar 5 mg b.i.d. to be increased over the next several days.? Side effects with regards to dizziness discussed.? Outpatient referrals to be made.? He will meet with his treatment team on 05/18/202205/18:? buspar DCed, seroquel 50 at HS added.? pt will take seroquel 25 PRNs during the day for anxiety.? urological procedure tomorrow to address renal calculus; NPO after MN tonight. 05/19:? no changes to medications regimen.? procedure 1 pm for definitive Tx of kidney stone. 05/20:? ureter stented and stone passed, apparently.? remains in pain with dys- and hematuria.? per urology PA will need to have stent removed in a week and can expect pain and bleeding until then; they are making an appointment for him.? observe for today without making any changes.? pt reports his depression and anxiety have not changed since admission. 05/21:? c/o ongoing depression without relief, anxiety.? now AH starting.? agrees to increase HS seroquel to 100 mg, make use of seroquel 25 mg PRNs.? stent removal scheduled for 05/27 at 2:45.? ongoing pain and bleeding expected to continue through removal of stent. 05/22:? more irritable.? +SI.? weary. ? increased oxycodone dosing from 7.5 mg to 10 mg each.? scheduled oxybutynin 5 TID.? increased seroquel PRNs to 50 mg each.? increased HS seroquel to 100 mg MR x 1. 05/23: Continue current treatment plan. 05/24: Continue current treatment plan.? 05/25: continue current mgmt.? add laxatives as pt requests/tolerates.? stent revision . 05/26: NPO past MN tonight for procedure tomorrow afternoon.? declines interview, appears more depressed and withdrawn per staff. 05/27: anxious re stent removal today.? spoke with sponsor and reframed addiction, no longer craving.? SI and AH a little bit. 05/28: procedure rescheduled for tomorrow in [place].? more flexible and slightly brighter affect. 05/29: procedure completed, pain beginning to subside.? will check in again tomorrow re psych med changes. 05/30: no change in pain from yesterday.? decrease oxycodone PRNs to 7.5 mg each.? schedule tylenol 975 QID for now.? planning for wednesday discharge. 05/31: decrease oxy PRNs from 7.5 each to 5 each.? increase seroquel dosing to 100 BID.? instructed to make use of seroquel PRNs during day.? interested in ECT, may be suitable due to weight loss and severity of risk for suicide due to number and chronicity of interpersonal losses.? had been planning for wednesday discharge, but pt appearing increasingly unstable. 06/01: increase seroquel scheduled and PRN.? DC oxycodone, start tramadol for pain.? DC PRNs for anxiety aside from seroquel.? c/o depression and anxiety with ongoing SI and AH. 06/02: stable presentation.? seen by Christina and scheduled for ECT for tomorrow. 06/03: ECT #1 completed. no other developments. continue current mgmt. 06/04: stably depressed and anxious. passive SI, some AH. ECT scheduled for tomorrow. 06/05/2022 Continue ECT no side effects noted beyond headache at present 06/08/21 Cont ect series seyanet has no way to cont outpt ect cont agitated depressed ? some improvement usually minimum 5-6 tx cont d/c planning Patient educated on: ECT and therapeutic strategies Reason for contiued inpatient stay Substantial Risk for: harm to self and rapid decompensation Time Spent With Patient Time: Total time managing care of this patient today _20___ minutes.
[2022-06-08] MEDS: Ibuprofen 600 MG TABLET PO (19:16)
[2022-06-08] MEDS: QUEtiapine Fumarate 200 MG TABLET PO (23:16)
[2022-06-08] MEDS: traZODone HCL 100 MG TABLET 200 MG PO (23:16)
[2022-06-08] MEDS: cloNIDine HCL 0.1 MG TABLET 0.3 MG PO (23:16)
[2022-06-09 10:12] VITALS: BP 91/64; PULSE 72; RESP 18; TEMP 36.8; O2SAT 96
[2022-06-09] MEDS: Tamsulosin HCL 0.4 MG CAPSULE PO (10:14)
[2022-06-09] MEDS: buPROPion HCl XL 150 MG TAB.ER.24H 450 MG PO (10:14)
[2022-06-09] MEDS: Thiamine HCL 100 MG TABLET PO (10:14)
[2022-06-09] MEDS: QUEtiapine Fumarate 100 MG TABLET PO (10:14)
[2022-06-09] MEDS: Multivitamin TABLET 1 TAB PO (10:15)
[2022-06-09] MEDS: Nicotine 21 MG PATCH.TD24 TRANSDERMA (10:15)
[2022-06-09] MEDS: 0.9 % Sodium Chloride Flush 10 ML SYRINGE 5 ML IVFLUSH ×3 (10:25→22:51)
--- NOTE | 2022-06-09 18:29 | PC.NURSE ---
Patient had midline dressing changed today. Sterile field was maintained during procedure. No signs/ symptoms of infection. Patient tolerated dressing changed well.
--- NOTE | 2022-06-09 21:29 | P.PNPSI_ITS ---
Subjective Subjective Date of Service: 06/09/22 Reason For Visit: severe depression Subjective Notes: Conditional Voluntary Healthcare Proxy: No Guardianship: No Medical Problems Affecting Mental Status: No Interim History: pt with anxiety rumination less depressed some st memory difficulty Medication Compliance: Yes Mental Status Exam Mental Status Exam Patient Appearance: Appropriate Patient Orientation: Person, Place, Time and Situation Level of Consciousness: Awake and Appropriate Patient Behavior: Appropriate Mood Description: Depressed, Blunted and Apprehensive Affect Description: Appropriate and Constricted Patient Cognition Impaired: No Ability to Follow Directions: Good Speech Pattern: Clear Memory Description: Recent Impaired Hallucinations: None and Auditory Delusions: Not Present Thought Process: Intact and Goal Oriented Thought Content: positive for Goal Oriented, positive for Preoccupation, negative for Suicidal Ideation or negative for Homicidal Ideation Depressive Symptoms: Increased Anxiety, Increased Irritability, Hopelessness, Increased Fatigue, Loss of Energy and Difficulty Concentrating Judgement: Good Diagnostics Vital Signs (24Hr): Vital Signs - 24 hr 06/08/22 23:07 06/09/22 10:12 Temperature 98.2 F 98.3 F Pulse Rate 77 72 Respiratory Rate 18 18 Blood Pressure 119/81 91/64 Pulse Oximetry 95 96 Oxygen Delivery Method Room Air Room Air BMI result Body Mass Index 22.8 Labs 05/17/22 07:53 05/17/22 07:53 Imaging Radiology Impressions: ITS Impressions Abdomen/Pelvis CT 05/15/22 16:23 IMPRESSION: 5 mm right distal ureteral calculus results in mild asymmetric right hydroureter but no hydronephrosis. Additional tiny nonobstructing bilateral renal calculi are present. Guidance Fluoroscopy 05/19/22 14:52 IMPRESSION: Fluoroscopy provided for the operating room. Please see operative report for additional information. KUB X-Ray 05/28/22 13:03 IMPRESSION: * Nonobstructive bowel gas pattern. Mild colonic stool burden. Medications Medications Current Medications Acetaminophen (Acetaminophen 325 Mg Tablet) 650 mg PO Q6H PRN PRN Reason: moderate pain Al Hydroxide/Mg Hydroxide (Magnesium Hydrox/Alum Hydrox 30 Ml Oral.Susp) 30 ml PO Q6H PRN PRN Reason: Heartburn/Nausea Amlodipine Besylate (Amlodipine Besylate 10 Mg Tablet) 10 mg PO DAILY [facility]; Protocol Last Admin: 06/09/22 10:17 Dose: Not Given Bisacodyl (Bisacodyl 10 Mg Supp.Rect) 10 mg ID DAILY PRN PRN Reason: Constipation Last Admin: 05/26/22 18:57 Dose: 10 mg Bupropion HCl (Bupropion Hcl Xl 150 Mg Tab.Er.24h) 450 mg PO DAILY [facility] Last Admin: 06/09/22 10:14 Dose: 450 mg Clonidine HCl (Clonidine Hcl 0.1 Mg Tablet) 0.3 mg PO BEDTIME [facility]; Protocol Last Admin: 06/08/22 23:16 Dose: 0.3 mg Ibuprofen (Ibuprofen 600 Mg Tablet) 600 mg PO Q6H PRN PRN Reason: moderate pain Last Admin: 06/08/22 19:16 Dose: 600 mg Magnesium Hydroxide (Milk Of Magnesia 30 Ml Oral.Susp) 30 ml PO DAILY PRN PRN Reason: Constipation Last Admin: 06/07/22 09:54 Dose: 30 ml Multivitamins/Vitamin C (Multivitamin Tablet) 1 tab PO DAILY [facility] Last Admin: 06/09/22 10:15 Dose: 1 tab Nicotine (Nicotine 21 Mg Patch.Td24) 21 mg TRANSDERMA DAILY [facility] Last Admin: 06/09/22 10:15 Dose: 21 mg Ondansetron HCl (Ondansetron Odt 4 Mg Tab.Rapdis) 8 mg TRANSLINGU Q6H PRN PRN Reason: nausea Last Admin: 05/21/22 08:29 Dose: 8 mg Polyethylene Glycol (Polyethylene Glycol 3350 17 Gm Powd.Pack) 17 gm PO BID [facility] Last Admin: 06/09/22 10:17 Dose: Not Given Quetiapine Fumarate (Quetiapine Fumarate 100 Mg Tablet) 100 mg PO BEDTIME PRN PRN Reason: Insomnia Last Admin: 06/08/22 23:16 Dose: 100 mg Quetiapine Fumarate (Quetiapine Fumarate 100 Mg Tablet) 100 mg PO Q4H PRN PRN Reason: anxiety/restlessness Last Admin: 06/08/22 15:21 Dose: 100 mg Quetiapine Fumarate (Quetiapine Fumarate 200 Mg Tablet) 200 mg PO BEDTIME [facility] Last Admin: 06/08/22 23:16 Dose: 200 mg Quetiapine Fumarate (Quetiapine Fumarate 100 Mg Tablet) 100 mg PO DAILY [facility] Last Admin: 06/09/22 10:14 Dose: 100 mg Sodium Chloride (0.9 % Sodium Chloride Flush 10 Ml Syringe) 5 ml IVFLUSH Q8H [facility] Last Admin: 06/09/22 17:44 Dose: 5 ml Tamsulosin HCl (Tamsulosin Hcl 0.4 Mg Capsule) 0.4 mg PO DAILY [facility] Last Admin: 06/09/22 10:14 Dose: 0.4 mg Thiamine HCl (Thiamine Hcl 100 Mg Tablet) 100 mg PO DAILY [facility] Last Admin: 06/09/22 10:14 Dose: 100 mg Trazodone HCl (Trazodone Hcl 100 Mg Tablet) 200 mg PO BEDTIME [facility] Last Admin: 06/08/22 23:16 Dose: 200 mg Allergies Allergies Allergy/AdvReac Type Severity Reaction Status Date / Time haloperidol [From Haldol] AdvReac see note Verified 05/29/22 11:52 Assessment & Plan Assessment & Plan (1) MDD (major depressive disorder), recurrent, severe, with psychosis: Status: Acute Code(s): F33.3 - Major depressive disorder, recurrent, severe with psychotic symptoms Assessment and Plan: per bill note: Patient has a history of treatment resistant depression with psychosis. Multiple psychosocial stressors limited resources. Patient did benefit on 2-3 occasions at [facility] with a course of ECT under similar circumstances. He did have a central line at [facility] when he last had ECT because of difficulty with IV access this will need to be looked at. Patient able to give informed consent wishes to proceed with ECT aware of risks benefits potential side effect (2) Post traumatic stress disorder (PTSD): Status: Acute Code(s): F43.10 - Post-traumatic stress disorder, unspecified (3) Right ureteral stone: Status: Acute Code(s): N20.1 - Calculus of ureter (4) Hypertension: Status: Acute Code(s): I10 - Essential (primary) hypertension Plan Plan 05/17:? Brian was admitted for safety and stabilization.? He meets criteria for inpatient level of care.? Current medications including Wellbutrin, Seroquel and hydroxyzine were continued.? I added BuSpar 5 mg b.i.d. to be increased over the next several days.? Side effects with regards to dizziness discussed.? Outpatient referrals to be made.? He will meet with his treatment team on 05/18/202205/18:? buspar DCed, seroquel 50 at HS added.? pt will take seroquel 25 PRNs d uring the day for anxiety.? urological procedure tomorrow to address renal calculus; NPO after MN tonight. 05/19:? no changes to medications regimen.? procedure 1 pm for definitive Tx of kidney stone. 05/20:? ureter stented and stone passed, apparently.? remains in pain with dys- and hematuria.? per urology PA will need to have stent removed in a week and can expect pain and bleeding until then; they are making an appointment for him.? observe for today without making any changes.? pt reports his depression and anxiety have not changed since admission. 05/21:? c/o ongoing depression without relief, anxiety.? now AH starting.? agrees to increase HS seroquel to 100 mg, make use of seroquel 25 mg PRNs.? stent removal scheduled for 05/27 at 2:45.? ongoing pain and bleeding expected to continue through removal of stent. 05/22:? more irritable.? +SI.? weary. ? increased oxycodone dosing from 7.5 mg to 10 mg each.? scheduled oxybutynin 5 TID.? increased seroquel PRNs to 50 mg each.? increased HS seroquel to 100 mg MR x 1. 05/23: Continue current treatment plan. 05/24: Continue current treatment plan.? 05/25: continue current mgmt.? add laxatives as pt requests/tolerates.? stent revision weds. 05/26: NPO past MN tonight for procedure tomorrow afternoon.? declines interview, appears more depressed and withdrawn per staff. 05/27: anxious re stent removal today.? spoke with sponsor and reframed addiction, no longer craving.? SI and AH a little bit. 05/28: procedure rescheduled for tomorrow in OR.? more flexible and slightly brighter affect. 05/29: procedure completed, pain beginning to subside.? will check in again tomorrow re psych med changes. 05/30: no change in pain from yesterday.? decrease oxycodone PRNs to 7.5 mg each.? schedule tylenol 975 QID for now.? planning for wednesday discharge. 05/31: decrease oxy PRNs from 7.5 each to 5 each.? increase seroquel dosing to 100 BID.? instructed to make use of seroquel PRNs during day.? interested in ECT, may be suitable due to weight loss and severity of risk for suicide due to number and chronicity of interpersonal losses.? had been planning for wednesday discharge, but pt appearing increasingly unstable. 06/01: increase seroquel scheduled and PRN.? DC oxycodone, start tramadol for pain.? DC PRNs for anxiety aside from seroquel.? c/o depression and anxiety with ongoing SI and AH. 06/02: stable presentation.? seen by Bill and scheduled for ECT for tomorrow. 06/03: ECT #1 completed. no other developments. continue current mgmt. 06/04: stably depressed and anxious. passive SI, some AH. ECT scheduled for tomorrow. 06/05/2022 Continue ECT no side effects noted beyond headache at present 06/08/21 Cont ect series seoquel has no way to cont outpt ect cont agitated depressed ? some improvement usually minimum 5-6 tx cont d/c planning 06/09/22 Pcont ect will not be able to do outpt ect Patient educated on: medication risk/benefits and ECT Reason for contiued inpatient stay Substantial Risk for: harm to self and rapid decompensation Time Spent With Patient Time: Total time managing care of this patient today 30____ minutes.
[2022-06-09 21:36] VITALS: BP 122/81; PULSE 76; RESP 18; TEMP 36.7; O2SAT 93
[2022-06-09] MEDS: traZODone HCL 100 MG TABLET 200 MG PO (21:36)
[2022-06-09] MEDS: QUEtiapine Fumarate 200 MG TABLET PO (21:37)
[2022-06-09] MEDS: cloNIDine HCL 0.1 MG TABLET 0.3 MG PO (21:37)
[2022-06-10] VITALS (10 sets, daily range): BP systolic 116–165; BP diastolic 60–104; PULSE 54–92; RESP 13–18; TEMP 35.8–36.7; O2SAT 94–97
[2022-06-10] MEDS: 0.9 % Sodium Chloride Flush 10 ML SYRINGE 5 ML IVFLUSH ×3 (05:49→22:00)
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
--- NOTE | 2022-06-10 07:10 | MHC.SHP ---
Pre-Procedural Eval Section A Date of Service: 06/10/22 The patient is an INPATIENT: Yes Changes since office visit: Yes Patient answered all questions; No Cold of Flu in the past 2 weeks, No New Medical Problems and No Changes in Medication The History & Physical has been completed within 30 days and I have reviewed it.: Yes Section B Chief Complaint: right uretera stone severe depression Allergies: Allergies Allergy/AdvReac Type Severity Reaction Status Date / Time haloperidol [From Haldol] AdvReac see note Verified 05/29/22 11:52 Plan I have reviewed the history and physical and performed a pertinent physical examination on my patient. No changes have occurred unless specified. Time Spent With Patient Time: Total time managing care of this patient today ____ minutes.
--- NOTE | 2022-06-10 07:32 | HO.ECTPROC ---
ECT Procedure Note Diagnosis/Treatment Date of Service: 06/10/22 Diagnosis: Major Depressive Disorder Previous ECT Date: 06/08/22 Current Treatment Number: 4 Treatment: Series Interval Clinical Notes: The patient reports improvement of dysphoria, has anxiety regarding procedure minimal st memory difficulty Time: Total time managing care of this patient today ____ minutes. ECT Settings Device: THYMATRON DGx Electrode Placement: Right Unilateral Program/Pulse Width: 0.50 Energy Percent: 100 Seizure Duration By EEG (in seconds): 50 By Motor Observation (in seconds): 31 Medications Administration General Anesthetic: Etomidate (18) Muscle Relaxant: Succinylcholine (100) Ancillary Medications Analgesics: Torodol - Pre ECT Anti-emetics: Zofran - Pre ECT Cardiovascular Medications: Glycopyrrolate Miscillaneous Medications: Midazolam Airway Management Airway Management: Bag Mask Ventilation Treatment Recommendations No Changes Recommended: No change Notes: ultram 50 mg immediately post tx Pt Tolerated Procedure w/o Issue: Yes
--- NOTE | 2022-06-10 07:45 | HO.PSYCHPN ---
Subjective Subjective Date of Service: 06/10/22 Reason For Visit: severe depression Subjective Notes: Conditional Voluntary Interim History: pt feeling better no self harm does not like ect side effects Medication Compliance: Yes Mental Status Exam Mental Status Exam Patient Appearance: Appropriate Patient Orientation: Person, Place, Time and Situation Level of Consciousness: Awake and Appropriate Patient Behavior: Appropriate Mood Description: Depressed, Blunted and Apprehensive Affect Description: Appropriate and Constricted Patient Cognition Impaired: No Ability to Follow Directions: Good Speech Pattern: Clear Memory Description: Recent Impaired Hallucinations: None and Auditory Delusions: Not Present Thought Process: Intact and Goal Oriented Thought Content: positive for Goal Oriented, positive for Preoccupation, negative for Suicidal Ideation or negative for Homicidal Ideation Depressive Symptoms: Increased Anxiety, Increased Irritability, Hopelessness, Increased Fatigue, Loss of Energy and Difficulty Concentrating Judgement: Good Diagnostics Vital Signs (24Hr): Vital Signs - 24 hr 06/09/22 10:12 06/09/22 21:36 06/10/22 05:52 Temperature 98.3 F 98.0 F 97.9 F Pulse Rate 72 76 63 Respiratory Rate 18 18 16 Blood Pressure 91/64 122/81 116/60 Pulse Oximetry 96 93 97 Oxygen Delivery Method Room Air Room Air Oxygen Flow Rate 06/10/22 05:52 06/10/22 06:21 06/10/22 07:39 Temperature 97.9 F 96.5 F L 97.9 F Pulse Rate 63 54 82 Respiratory Rate 16 16 14 Blood Pressure 116/60 126/86 162/97 H Pulse Oximetry 97 97 95 Oxygen Delivery Method Room Air Room Air Nasal Cannula Oxygen Flow Rate 2 BMI result Body Mass Index 22.8 Labs 05/17/22 07:53 05/17/22 07:53 Imaging Radiology Impressions: ITS Impressions Abdomen/Pelvis CT 05/15/22 16:23 IMPRESSION: 5 mm right distal ureteral calculus results in mild asymmetric right hydroureter but no hydronephrosis. Additional tiny nonobstructing bilateral renal calculi are present. Guidance Fluoroscopy 05/19/22 14:52 IMPRESSION: Fluoroscopy provided for the operating room. Please see operative report for additional information. KUB X-Ray 05/28/22 13:03 IMPRESSION: * Nonobstructive bowel gas pattern. Mild colonic stool burden. Medications Medications Current Medications Acetaminophen (Acetaminophen 325 Mg Tablet) 650 mg PO Q6H PRN PRN Reason: moderate pain Al Hydroxide/Mg Hydroxide (Magnesium Hydrox/Alum Hydrox 30 Ml Oral.Susp) 30 ml PO Q6H PRN PRN Reason: Heartburn/Nausea Amlodipine Besylate (Amlodipine Besylate 10 Mg Tablet) 10 mg PO DAILY [facility]; Protocol Last Admin: 06/09/22 10:17 Dose: Not Given Bisacodyl (Bisacodyl 10 Mg Supp.Rect) 10 mg [place] DAILY PRN PRN Reason: Constipation Last Admin: 05/26/22 18:57 Dose: 10 mg Bupropion HCl (Bupropion Hcl Xl 150 Mg Tab.Er.24h) 450 mg PO DAILY [facility] Last Admin: 06/09/22 10:14 Dose: 450 mg Clonidine HCl (Clonidine Hcl 0.1 Mg Tablet) 0.3 mg PO BEDTIME [facility]; Protocol Last Admin: 06/09/22 21:37 Dose: 0.3 mg Lactated Ringer's (Lr) 1,000 mls @ 50 mls/hr IVCONT .Q20H [facility] Ibuprofen (Ibuprofen 600 Mg Tablet) 600 mg PO Q6H PRN PRN Reason: moderate pain Last Admin: 06/08/22 19:16 Dose: 600 mg Magnesium Hydroxide (Milk Of Magnesia 30 Ml Oral.Susp) 30 ml PO DAILY PRN PRN Reason: Constipation Last Admin: 06/07/22 09:54 Dose: 30 ml Multivitamins/Vitamin C (Multivitamin Tablet) 1 tab PO DAILY [facility] Last Admin: 06/09/22 10:15 Dose: 1 tab Nicotine (Nicotine 21 Mg Patch.Td24) 21 mg TRANSDERMA DAILY [facility] Last Admin: 06/09/22 10:15 Dose: 21 mg Ondansetron HCl (Ondansetron Odt 4 Mg Tab.Rapdis) 8 mg TRANSLINGU Q6H PRN PRN Reason: nausea Last Admin: 05/21/22 08:29 Dose: 8 mg Polyethylene Glycol (Polyethylene Glycol 3350 17 Gm Powd.Pack) 17 gm PO BID [facility] Last Admin: 06/09/22 22:12 Dose: Not Given Quetiapine Fumarate (Quetiapine Fumarate 100 Mg Tablet) 100 mg PO BEDTIME PRN PRN Reason: Insomnia Last Admin: 06/08/22 23:16 Dose: 100 mg Quetiapine Fumarate (Quetiapine Fumarate 100 Mg Tablet) 100 mg PO Q4H PRN PRN Reason: anxiety/restlessness Last Admin: 06/08/22 15:21 Dose: 100 mg Quetiapine Fumarate (Quetiapine Fumarate 200 Mg Tablet) 200 mg PO BEDTIME [facility] Last Admin: 06/09/22 21:37 Dose: 200 mg Quetiapine Fumarate (Quetiapine Fumarate 100 Mg Tablet) 100 mg PO DAILY [facility] Last Admin: 06/09/22 10:14 Dose: 100 mg Quetiapine Fumarate (Quetiapine Fumarate 25 Mg Tablet) 25 mg PO ONCE ONE Stop: 06/10/22 07:39 Sodium Chloride (0.9 % Sodium Chloride Flush 10 Ml Syringe) 5 ml IVFLUSH Q8H [facility] Last Admin: 06/10/22 05:49 Dose: 5 ml Tamsulosin HCl (Tamsulosin Hcl 0.4 Mg Capsule) 0.4 mg PO DAILY [facility] Last Admin: 06/09/22 10:14 Dose: 0.4 mg Thiamine HCl (Thiamine Hcl 100 Mg Tablet) 100 mg PO DAILY [facility] Last Admin: 06/09/22 10:14 Dose: 100 mg Tramadol HCl (Tramadol Hcl 50 Mg Tablet) 50 mg PO ONCE ONE Stop: 06/10/22 07:35 Trazodone HCl (Trazodone Hcl 100 Mg Tablet) 200 mg PO BEDTIME [facility] Last Admin: 06/09/22 21:36 Dose: 200 mg Allergies Allergies Allergy/AdvReac Type Severity Reaction Status Date / Time haloperidol [From Haldol] AdvReac see note Verified 05/29/22 11:52 Assessment & Plan Assessment & Plan (1) MDD (major depressive disorder), recurrent, severe, with psychosis: Status: Acute Code(s): F33.3 - Major depressive disorder, recurrent, severe with psychotic symptoms Assessment and Plan: per bill note: Patient has a history of treatment resistant depression with psychosis. Multiple psychosocial stressors limited resources. Patient did benefit on 2-3 occasions at [facility] with a course of ECT under similar circumstances. He did have a central line at [facility] when he last had ECT because of difficulty with IV access this will need to be looked at. Patient able to give informed consent wishes to proceed with ECT aware of risks benefits potential side effect (2) Post traumatic stress disorder (PTSD): Status: Acute Code(s): F43.10 - Post-traumatic stress disorder, unspecified (3) Right ureteral stone: Status: Acute Code(s): N20.1 - Calculus of ureter (4) Hypertension: Status: Acute Code(s): I10 - Essential (primary) hypertension Plan Plan 05/17:? Brian was admitted for safety and stabilization.? He meets criteria for inpatient level of care.? Current medications including Wellbutrin, Seroquel and hydroxyzine were continued.? I added BuSpar 5 mg b.i.d. to be increased over the next several days.? Side effects with regards to dizziness discussed.? Outpatient referrals to be made.? He will meet with his treatment team on 05/18/202205/18:? buspar DCed, seroquel 50 at HS added.? pt will take seroquel 25 PRNs during the day for anxiety.? urological procedure tomorrow to address renal calculus; NPO after MN tonight. 05/19:? no changes to medications regimen.? procedure 1 pm for definitive Tx of kidney stone. 05/20:? ureter stented and stone passed, apparently.? remains in pain with dys- and hematuria.? per urology PA will need to have stent removed in a week and can expect pain and bleeding until then; they are making an appointment for him.? observe for today without making any changes.? pt reports his depression and anxiety have not changed since admission. 05/21:? c/o ongoing depression without relief, anxiety.? now AH starting.? agrees to increase HS seroquel to 100 mg, make use of seroquel 25 mg PRNs.? stent removal scheduled for 05/27 at 2:45.? ongoing pain and bleeding expected to continue through removal of stent. 05/22:? more irritable.? +SI.? weary. ? increased oxycodone dosing from 7.5 mg to 10 mg each.? scheduled oxybutynin 5 TID.? increased seroquel PRNs to 50 mg each.? increased HS seroquel to 100 mg MR x 1. 05/23: Continue current treatment plan. 05/24: Continue current treatment plan.? 05/25: continue current mgmt.? add laxatives as pt requests/tolerates.? stent revision weds. 05/26: NPO past MN tonight for procedure tomorrow afternoon.? declines interview, appears more depressed and withdrawn per staff. 05/27: anxious re stent removal today.? spoke with sponsor and reframed addiction, no longer craving.? SI and AH a little bit. 05/28: procedure rescheduled for tomorrow in [place].? more flexible and slightly brighter affect. 05/29: procedure completed, pain beginning to subside.? will check in again tomorrow re psych med changes. 05/30: no change in pain from yesterday.? decrease oxycodone PRNs to 7.5 mg each.? schedule tylenol 975 QID for now.? planning for wednesday discharge. 05/31: decrease oxy PRNs from 7.5 each to 5 each.? increase seroquel dosing to 100 BID.? instructed to make use of seroquel PRNs during day.? interested in ECT, may be suitable due to weight loss and severity of risk for suicide due to number and chronicity of interpersonal losses.? had been planning for wednesday discharge, but pt appearing increasingly unstable. 06/01: increase seroquel scheduled and PRN.? DC oxycodone, start tramadol for pain.? DC PRNs for anxiety aside from seroquel.? c/o depression and anxiety with ongoing SI and AH. 06/02: stable presentation.? seen by Bill and scheduled for ECT for tomorrow. 06/03: ECT #1 completed. no other developments. continue current mgmt. 06/04: stably depressed and anxious. passive SI, some AH. ECT scheduled for tomorrow. 06/05/2022 Continue ECT no side effects noted beyond headache at present 06/08/21 Cont ect series bird has no way to cont outpt ect cont agitated depressed ? some improvement usually minimum 5-6 tx cont d/c planning 06/09/22 Pcont ect will not be able to do outpt ect 06/10/22 Cont ect transition to outpt tx Reason for contiued inpatient stay Substantial Risk for: inability to function and rapid decompensation Time Spent With Patient Time: Total time managing care of this patient today ____ minutes.
[2022-06-10] MEDS: traMADoL HCL 50 MG TABLET PO ×2 (07:52→11:45)
[2022-06-10] MEDS: Nicotine 21 MG PATCH.TD24 TRANSDERMA (09:15)
[2022-06-10] MEDS: buPROPion HCl XL 150 MG TAB.ER.24H 450 MG PO (09:16)
[2022-06-10] MEDS: Tamsulosin HCL 0.4 MG CAPSULE PO (09:17)
[2022-06-10] MEDS: Multivitamin TABLET 1 TAB PO (09:17)
[2022-06-10] MEDS: Ibuprofen 600 MG TABLET PO (09:17)
[2022-06-10] MEDS: Thiamine HCL 100 MG TABLET PO (09:17)
[2022-06-10] MEDS: QUEtiapine Fumarate 100 MG TABLET PO (09:18)
[2022-06-10] MEDS: amLODIPine Besylate 10 MG TABLET PO (09:18)
[2022-06-10] MEDS: QUEtiapine Fumarate 200 MG TABLET PO (21:59)
[2022-06-10] MEDS: cloNIDine HCL 0.1 MG TABLET 0.3 MG PO (21:59)
[2022-06-10] MEDS: traZODone HCL 100 MG TABLET 200 MG PO (21:59)
--- NOTE | 2022-06-10 22:23 | PC.NURSE ---
Patient reported that he would like to cancel ECT on Wednesday and would like discharge on Wednesday.
--- NOTE | 2022-06-11 06:17 | PC.NURSE ---
Brian refused to allow the nurse to flush his IV site. Patient stated nope, not now, I want to sleep. Nurse will leave task open so that it can be done once the patient is awake.
[2022-06-11 08:00] VITALS: BP 119/69; PULSE 64; RESP 16; TEMP 36.7; O2SAT 96
[2022-06-11] MEDS: Nicotine 21 MG PATCH.TD24 TRANSDERMA (09:35)
[2022-06-11] MEDS: polyethylene glycoL 3350 17 GM POWD.PACK PO (09:36)
[2022-06-11] MEDS: QUEtiapine Fumarate 100 MG TABLET PO ×3 (09:36→21:52)
[2022-06-11] MEDS: amLODIPine Besylate 10 MG TABLET PO (09:36)
[2022-06-11] MEDS: Tamsulosin HCL 0.4 MG CAPSULE PO (09:36)
[2022-06-11] MEDS: buPROPion HCl XL 150 MG TAB.ER.24H 450 MG PO (09:36)
[2022-06-11] MEDS: Multivitamin TABLET 1 TAB PO (09:36)
[2022-06-11] MEDS: Thiamine HCL 100 MG TABLET PO (09:36)
[2022-06-11 13:31] VITALS: BMI 22.4
--- NOTE | 2022-06-11 16:32 | PC.NURSE ---
Pt had Mid-Line removed by Nursing [employer] Teacher Jemima Muñiz Line removed without any resistance, line intact. Pt tolerated procedure without any difficulty. Site has no signs of infection. Pressure applied with a non-permeable gauze applied to site with a 2x2 gauze secured with an opsite bandage. No bleeding noted when reassessed 10 minutes following.
[2022-06-11] MEDS: Acetaminophen 325 MG TABLET 650 MG PO (18:00)
--- NOTE | 2022-06-11 21:42 | P.PNPSI_ITS ---
Subjective Subjective Date of Service: 06/11/22 Reason For Visit: severe depression Subjective Notes: Conditional Voluntary Healthcare Proxy: No Guardianship: No Interim History: pt does not wish to continue ect c/o side effects no si discussed tms tx outpt as option Medication Compliance: Yes Mental Status Exam Mental Status Exam Patient Appearance: Appropriate Patient Orientation: Person, Place, Time and Situation Level of Consciousness: Awake and Appropriate Patient Behavior: Appropriate Mood Description: Depressed, Blunted and Apprehensive Affect Description: Appropriate and Constricted Patient Cognition Impaired: No Ability to Follow Directions: Good Speech Pattern: Clear Memory Description: Recent Impaired Hallucinations: None Delusions: Not Present Thought Process: Intact and Goal Oriented Thought Content: positive for Goal Oriented, positive for Preoccupation, negative for Suicidal Ideation or negative for Homicidal Ideation Depressive Symptoms: Increased Anxiety, Increased Fatigue, Loss of Energy and Difficulty Concentrating Judgement: Good Diagnostics Vital Signs (24Hr): Vital Signs - 24 hr 06/10/22 21:50 06/11/22 08:00 Temperature 98.1 F 98.1 F Pulse Rate 92 64 Respiratory Rate 16 16 Blood Pressure 119/75 119/69 Pulse Oximetry 94 96 Oxygen Delivery Method Room Air Room Air BMI result Body Mass Index 22.4 Labs 05/17/22 07:53 05/17/22 07:53 Imaging Radiology Impressions: ITS Impressions Abdomen/Pelvis CT 05/15/22 16:23 IMPRESSION: 5 mm right distal ureteral calculus results in mild asymmetric right hydroureter but no hydronephrosis. Additional tiny nonobstructing bilateral renal calculi are present. Guidance Fluoroscopy 05/19/22 14:52 IMPRESSION: Fluoroscopy provided for the operating room. Please see operative report for additional information. KUB X-Ray 05/28/22 13:03 IMPRESSION: * Nonobstructive bowel gas pattern. Mild colonic stool burden. Medications Medications Current Medications Acetaminophen (Acetaminophen 325 Mg Tablet) 650 mg PO Q6H PRN PRN Reason: moderate pain Last Admin: 06/11/22 18:00 Dose: 650 mg Al Hydroxide/Mg Hydroxide (Magnesium Hydrox/Alum Hydrox 30 Ml Oral.Susp) 30 ml PO Q6H PRN PRN Reason: Heartburn/Nausea Amlodipine Besylate (Amlodipine Besylate 10 Mg Tablet) 10 mg PO DAILY [facility]; Protocol Last Admin: 06/11/22 09:36 Dose: 10 mg Bisacodyl (Bisacodyl 10 Mg Supp.Rect) 10 mg [place] DAILY PRN PRN Reason: Constipation Last Admin: 05/26/22 18:57 Dose: 10 mg Bupropion HCl (Bupropion Hcl Xl 150 Mg Tab.Er.24h) 450 mg PO DAILY [facility] Last Admin: 06/11/22 09:36 Dose: 450 mg Clonidine HCl (Clonidine Hcl 0.1 Mg Tablet) 0.3 mg PO BEDTIME [facility]; Protocol Last Admin: 06/10/22 21:59 Dose: 0.3 mg Ibuprofen (Ibuprofen 600 Mg Tablet) 600 mg PO Q6H PRN PRN Reason: moderate pain Last Admin: 06/10/22 09:17 Dose: 600 mg Magnesium Hydroxide (Milk Of Magnesia 30 Ml Oral.Susp) 30 ml PO DAILY PRN PRN Reason: Constipation Last Admin: 06/07/22 09:54 Dose: 30 ml Multivitamins/Vitamin C (Multivitamin Tablet) 1 tab PO DAILY [facility] Last Admin: 06/11/22 09:36 Dose: 1 tab Nicotine (Nicotine 21 Mg Patch.Td24) 21 mg TRANSDERMA DAILY [facility] Last Admin: 06/11/22 09:35 Dose: 21 mg Ondansetron HCl (Ondansetron Odt 4 Mg Tab.Rapdis) 8 mg TRANSLINGU Q6H PRN PRN Reason: nausea Last Admin: 05/21/22 08:29 Dose: 8 mg Polyethylene Glycol (Polyethylene Glycol 3350 17 Gm Powd.Pack) 17 gm PO BID [facility] Last Admin: 06/11/22 09:36 Dose: 17 gm Quetiapine Fumarate (Quetiapine Fumarate 100 Mg Tablet) 100 mg PO BEDTIME PRN PRN Reason: Insomnia Last Admin: 06/08/22 23:16 Dose: 100 mg Quetiapine Fumarate (Quetiapine Fumarate 100 Mg Tablet) 100 mg PO Q4H PRN PRN Reason: anxiety/restlessness Last Admin: 06/11/22 18:01 Dose: 100 mg Quetiapine Fumarate (Quetiapine Fumarate 200 Mg Tablet) 200 mg PO BEDTIME [facility] Last Admin: 06/10/22 21:59 Dose: 200 mg Quetiapine Fumarate (Quetiapine Fumarate 100 Mg Tablet) 100 mg PO DAILY [facility] Last Admin: 06/11/22 09:36 Dose: 100 mg Tamsulosin HCl (Tamsulosin Hcl 0.4 Mg Capsule) 0.4 mg PO DAILY [facility] Last Admin: 06/11/22 09:36 Dose: 0.4 mg Thiamine HCl (Thiamine Hcl 100 Mg Tablet) 100 mg PO DAILY [facility] Last Admin: 06/11/22 09:36 Dose: 100 mg Trazodone HCl (Trazodone Hcl 100 Mg Tablet) 200 mg PO BEDTIME [facility] Last Admin: 06/10/22 21:59 Dose: 200 mg Allergies Allergies Allergy/AdvReac Type Severity Reaction Status Date / Time haloperidol [From Haldol] AdvReac see note Verified 05/29/22 11:52 Assessment & Plan Assessment & Plan (1) MDD (major depressive disorder), recurrent, severe, with psychosis: Status: Acute Code(s): F33.3 - Major depressive disorder, recurrent, severe with psychotic symptoms Assessment and Plan: per bill note: Patient has a history of treatment resistant depression with psychosis. Multiple psychosocial stressors limited resources. Patient did benefit on 2-3 occasions at [facility] with a course of ECT under similar circumstances. He did have a central line at [facility] when he last had ECT because of difficulty with IV access this will need to be looked at. Patient able to give informed consent wishes to proceed with ECT aware of risks benefits potential side effect (2) Post traumatic stress disorder (PTSD): Status: Acute Code(s): F43.10 - Post-traumatic stress disorder, unspecified (3) Right ureteral stone: Status: Acute Code(s): N20.1 - Calculus of ureter (4) Hypertension: Status: Acute Code(s): I10 - Essential (primary) hypertension Plan Plan 05/17:? Brian was admitted for safety and stabilization.? He meets criteria for inpatient level of care.? Current medications including Wellbutrin, Seroquel and hydroxyzine were continued.? I added BuSpar 5 mg b.i.d. to be increased over the next several days.? Side effects with regards to dizziness discussed.? Outpatient referrals to be made.? He will meet with his treatment team on 05/18/202205/18:? buspar DCed, seroquel 50 at HS added.? pt will take seroquel 25 PRNs during the day for anxiety.? urological procedure tomorrow to address renal calculus; NPO after MN tonight. 05/19:? no changes to medications regimen.? procedure 1 pm for definitive Tx of kidney stone. 05/20:? ureter stented and stone passed, apparently.? remains in pain with dys- and hematuria.? per urology PA will need to have stent removed in a week and can expect pain and bleeding until then; they are making an appointment for him.? observe for today without making any changes.? pt reports his depression and anxiety have not changed since admission. 05/21:? c/o ongoing depression without relief, anxiety.? now AH starting.? agrees to increase HS seroquel to 100 mg, make use of seroquel 25 mg PRNs.? stent removal scheduled for 05/27 at 2:45.? ongoing pain and bleeding expected to continue through removal of stent. 05/22:? more irritable.? +SI.? weary. ? increased oxycodone dosing from 7.5 mg to 10 mg each.? scheduled oxybutynin 5 TID.? increased seroquel PRNs to 50 mg each.? increased HS seroquel to 100 mg MR x 1. 05/23: Continue current treatment plan. 05/24: Continue current treatment plan.? 05/25: continue current mgmt.? add laxatives as pt requests/tolerates.? stent revision weds. 05/26: NPO past MN tonight for procedure tomorrow afternoon.? declines interview, appears more depressed and withdrawn per staff. 05/27: anxious re stent removal today.? spoke with sponsor and reframed addiction, no longer craving.? SI and AH a little bit. 05/28: procedure rescheduled for tomorrow in [place].? more flexible and slightly brighter affect. 05/29: procedure completed, pain beginning to subside.? will check in again tomorrow re psych med changes. 05/30: no change in pain from yesterday.? decrease oxycodone PRNs to 7.5 mg each.? schedule tylenol 975 QID for now.? planning for wednesday discharge. 05/31: decrease oxy PRNs from 7.5 each to 5 each.? increase seroquel dosing to 100 BID.? instructed to make use of seroquel PRNs during day.? interested in ECT, may be suitable due to weight loss and severity of risk for suicide due to number and chronicity of interpersonal losses.? had been planning for wednesday discharge, but pt appearing increasingly unstable. 06/01: increase seroquel scheduled and PRN.? DC oxycodone, start tramadol for pain.? DC PRNs for anxiety aside from seroquel.? c/o depression and anxiety with ongoing SI and AH. 06/02: stable presentation.? seen by Bill and scheduled for ECT for tomorrow. 06/03: ECT #1 completed. no other developments. continue current mgmt. 06/04: stably depressed and anxious. passive SI, some AH. ECT scheduled for tomorrow. 06/05/2022 Continue ECT no side effects noted beyond headache at present 06/08/21 Cont ect series seoquel has no way to cont outpt ect cont agitated depressed ? some improvement usually minimum 5-6 tx cont d/c planning 06/09/22 Pcont ect will not be able to do outpt ect 06/10/22 Cont ect transition to outpt tx 06/11/22 Pt states safe for d/c does not wish to cont ect discussed option of tms Reason for contiued inpatient stay Substantial Risk for: rapid decompensation Time Spent With Patient Time: Total time managing care of this patient today ____ minutes.
[2022-06-11] MEDS: cloNIDine HCL 0.1 MG TABLET 0.3 MG PO (21:52)
[2022-06-11] MEDS: traZODone HCL 100 MG TABLET 200 MG PO (21:52)
[2022-06-11] MEDS: QUEtiapine Fumarate 200 MG TABLET PO (21:53)
[2022-06-11 21:55] VITALS: BP 135/80; PULSE 101; TEMP 36.6; O2SAT 95
[2022-06-12] MEDS: buPROPion HCl XL 150 MG TAB.ER.24H 450 MG PO (09:05)
[2022-06-12] MEDS: Nicotine 21 MG PATCH.TD24 TRANSDERMA (09:05)
[2022-06-12] MEDS: amLODIPine Besylate 10 MG TABLET PO (09:06)
[2022-06-12] MEDS: Multivitamin TABLET 1 TAB PO (09:06)
[2022-06-12] MEDS: QUEtiapine Fumarate 100 MG TABLET PO ×2 (09:07→12:24)
[2022-06-12] MEDS: Thiamine HCL 100 MG TABLET PO (09:07)
[2022-06-12] MEDS: Tamsulosin HCL 0.4 MG CAPSULE PO (09:07)
[2022-06-12 09:12] VITALS: BP 132/80; PULSE 91; RESP 18; TEMP 36.9; O2SAT 96
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
== END 2022-06-12 13:15 | disposition home or self-care (01) | DRG 751 ==
LOC: HO.ED 20:57 → HO.PADLT16 05-16 14:58
PROVIDERS: Physician Assistant; Psychiatry & Neurology Psychiatry; Admitting Provider Psychiatry & Neurology Psychiatry; Emergency Provider Emergency Medicine; PCP Internal Medicine; Visit Provider Psychiatry & Neurology Psychiatry
PROC: GZB4ZZZ Other Electroconvulsive Therapy (ICD-10-PCS; CPT 90870; principal; 2022-06-03 07:30)
PROC: (CPT 90870; principal; 2022-06-08 07:30)
DX: F33.3 Major depressive disorder, recurrent, severe with psychotic symptoms (principal); N20.1 Calculus of ureter; F11.11 Opioid abuse, in remission; F17.210 Nicotine dependence, cigarettes, uncomplicated; Z71.6 Tobacco abuse counseling; F43.10 Post-traumatic stress disorder, unspecified; I10 Essential (primary) hypertension; F14.11 Cocaine abuse, in remission; Z20.822 Contact with and (suspected) exposure to COVID-19; Z88.8 Allergy status to other drugs, medicaments and biological substances; Z79.899 Other long term (current) drug therapy
CPT/HCPCS: 36410; 36415; 74018; 74176; 80053; 80061; 80307; 81001; 82077; 82248; 83690; 84443; 85025; 87635; 90870; 92950; 93005; 99285; C1894; J0330; J0690; J1885; J2250; J2270; J2405; J3010; Q9967; S9485

== ENCOUNTER → 2022-05-19 12:39 | Outpatient (BNVA) | payer OTHER, MEDICAID, SELFPAY | PROVIDERS: PCP Internal Medicine; Visit Provider Nurse Practitioner Family | DX: Z13.89 Encounter for screening for other disorder (principal) ==

== ENCOUNTER → 2022-05-19 15:48 | Day surgery (SDC) | payer MEDICAID, SELFPAY ==
[2022-05-19 13:39] VITALS: BMI 24.8
[2022-05-19 13:45] VITALS: BP 106/46; PULSE 47; RESP 18; TEMP 36.7; O2SAT 95
[2022-05-19 15:09] VITALS: BP 140/81; PULSE 54; RESP 20; TEMP 36.3; O2SAT 95
[2022-05-19 15:15] VITALS: BP 136/72; PULSE 48; RESP 16; O2SAT 97
--- NOTE | 2022-05-19 15:18 | P.OP_ITS ---
Operative Note Operative Note Date of Service: 05/19/22 Narrative: PreOperative Diagnosis:?? right ureteral stone Post Operative Diagnosis:??right ureteral stone Procedure: - cystoscopy, right retrograde, ureteroscopy laser lithotripsy stent insertion, 6 Mexican by multi-length cm Surgeon:?Dr Mauricio Pastor Anesthesia:? General Indications for procedure: 47 y/o with right flank pain, CT abd/pelvis, 5 mm right distal stone with hydroureter Findings: Approximately 5 x 6 mm, stone, hydroureter, right Procedure: After informed consent was verified the patient was brought to the operating placed on the OR table in supine position.? General Anesthesia was administered per protocol.? The patient was placed in lithotomy position, prepped and draped in the usual sterile fashion.? Safety pause time-out and side of surgery confirmed.? Antibiotics confirmed. 2% lidocaine jelly 10 mL was pas sed transurethrally. A 22 Mexican cystoscope was inserted transurethrally, the bulbous urethra was within normal limits. The prostatic urethra was nonobstructive. The bladder was visualized.? Both ureteric orifices were in normal position. An open-ended ureteral catheter was passed into the right ureteral orifice and a retrograde examination was performed. There was a filling defect in the ureter and dilatation of the proximal ureter and renal pelvis and calices. A guidewire was passed through the ureteral catheter into the kidney. The balloon dilator size 15 fr was passed over the guide -wire the balloon was inflated to 6 mmHg and the intramural ureter was dilated for 45 seconds. The balloon was deflated and removed. After removing the balloon dilator a 2nd guidewire was then passed into the kidney to use as a safety. The cystoscope was removed, leaving both guidewires in place. One guidewire was used as the safety and was attached to the draping. The semi rigid ureteroscope was passed over one of the guidewires to the level of the stone in the ureter. One guidewire was then removed. Laser lithotripsy of the stone was done using the 365 fiber with a settings 0.8 joules by 6 hertz. There was good fragmentation of the stone. The 0 degree basket was passed through the ureteroscope, stone fragments were removed to send for analysis. The ureteroscope was removed. The cystoscope was passed over the safety guidewire. A? 6 Mexican by multi-length cm stent was placed into the ureter and renal pelvis under a combination of fluoroscopy and direct visualization. The bladder was emptied.? The rigid cystoscope was removed. ? The patient tolerated the procedure well and was brought to the recovery room in stable condition. Complications: None Drains: Ureteral stent as dictated above
[2022-05-19 15:20] VITALS: BP 123/84; PULSE 48; RESP 16; O2SAT 98
[2022-05-19 15:25] VITALS: BP 139/75; PULSE 50; RESP 16; O2SAT 97
[2022-05-19] MEDS: oxyCODONE HCl Immed Release 5 MG TABLET 10 MG PO (15:35)
[2022-05-19] MEDS: Acetaminophen 325 MG TABLET 650 MG PO (15:35)
[2022-05-19 15:40] VITALS: BP 146/96; PULSE 45; RESP 16; TEMP 36.5; O2SAT 98
[2022-05-25 20:53] LABS: Stone Source URETERAL STONE
== END ==
PROVIDERS: PCP Internal Medicine; Visit Provider Urology
PROC: (CPT 52356; principal; 2022-05-19 13:50)
DX: N20.1 Calculus of ureter (principal); N13.4 Hydroureter; Z87.442 Personal history of urinary calculi; F32.A Depression, unspecified; K21.9 Gastro-esophageal reflux disease without esophagitis; F41.1 Generalized anxiety disorder; I10 Essential (primary) hypertension; Z79.899 Other long term (current) drug therapy; F17.210 Nicotine dependence, cigarettes, uncomplicated; F12.90 Cannabis use, unspecified, uncomplicated
CPT/HCPCS: 52356; 82365; 88300; C1726; C1758; C1769; C2617

== ENCOUNTER → 2022-05-28 10:00 | Outpatient (BNVA) | payer MEDICAID, SELFPAY | PROVIDERS: PCP Internal Medicine; Visit Provider Urology | DX: N20.1 Calculus of ureter (principal) | CPT/HCPCS: 99212 ==

== ENCOUNTER → 2022-05-29 10:59 | Day surgery (SDC) | payer MEDICAID, SELFPAY ==
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
[2022-05-29 11:13] VITALS: BP 117/77; PULSE 47; RESP 18; TEMP 36.6; O2SAT 97
[2022-05-29 11:14] VITALS: BMI 23.7
[2022-05-29] MEDS: Lactated Ringers 1,000 ML 50 ML IVCONT (11:37)
--- NOTE | 2022-05-29 12:37 | MHC.SHP ---
Pre-Procedural Eval Section A Date of Service: 05/29/22 The patient is an INPATIENT: Yes Changes since office visit: No Cold of Flu in the past 2 weeks, No New Medical Problems, No Changes in Medication and No Patient answered all questions The History & Physical has been completed within 30 days and I have reviewed it.: Yes Section B Chief Complaint: Calculus of kidney Details of Present Illness: here for removal of right sided stent Relevant Family History (Specify if Yes): No Relevant Social History: None Present Medications: see Short Stay Collaborative assessment Medical History: Significant History History of Previous Operations: No relevant previous surgery Allergies: Allergies Allergy/AdvReac Type Severity Reaction Status Date / Time haloperidol [From Haldol] AdvReac see note Verified 05/29/22 11:52 Review of Systems Sugical H&P ROS: Negative: Constitution, Cardiovascular, Respiratory, Neurological, Psychiatric, Hem-Onc, Allergic/Immunologic, Gastrointestinal, Genitourinary, Musculoskeletal, Integumentary, Endocrine and Eyes/Ears/Nose/Throat Exam Surgical H&P Exam: Normal: HEENT, Normal: Heart, Normal: Lungs, Normal: Extremities, Normal: Abdomen, Normal: Skin and Normal: Neurological Plan Diagnosis/Plan: Unchanged (cysto with right stent removal) I have reviewed the history and physical and performed a pertinent physical examination on my patient. No changes have occurred unless specified. Time Spent With Patient Time: Total time managing care of this patient today ____ minutes.
[2022-05-29 12:58] VITALS: BP 100/67; PULSE 63; RESP 16; TEMP 36.3; O2SAT 94
--- NOTE | 2022-05-29 12:58 | P.OP_ITS ---
Operative Note Operative Note Date of Service: 05/29/22 Narrative: PreOperative Diagnosis: right indwelling stent Post Operative Diagnosis: above Procedure: cysto stent removal Surgeon: Dr Guille Asif Anesthesia: sedation Procedure: After informed consent was verified the patient was brought to the operating room and placed in a supine position. Anesthesia was administered per protocol. The patient was placed in modified dorsal lithotomy position and prepped and draped in a sterile fashion. A safety pause time-out was performed. Laterality of procedure and antibiotics were confirmed, appropriate imaging was available A 22 Persian cystoscope was introduced per urethra. No abnormality was noted of urethra or bladder. Both ureteric orifices were seen in a normal position. stent emerging from right Greasped and removed The patient tolerated the procedure well and was transferred in a stable condition to the recovery area. Pathology: Drains:
[2022-05-29 13:13] VITALS: BP 107/72; PULSE 64; RESP 16; TEMP 36.3; O2SAT 97
[2022-05-29] MEDS: oxyCODONE HCl Immed Release 5 MG TABLET PO (13:17)
[2022-05-29 13:26] VITALS: BP 107/72; PULSE 64; RESP 16; TEMP 36.3; O2SAT 97
== END ==
PROVIDERS: PCP Internal Medicine; Visit Provider Urology
PROC: (CPT 52310; principal; 2022-05-29 12:00)
DX: Z46.6 Encounter for fitting and adjustment of urinary device (principal); N20.0 Calculus of kidney; I10 Essential (primary) hypertension; Z79.899 Other long term (current) drug therapy; Z88.8 Allergy status to other drugs, medicaments and biological substances; F17.210 Nicotine dependence, cigarettes, uncomplicated; F12.90 Cannabis use, unspecified, uncomplicated
CPT/HCPCS: 52310

== ENCOUNTER 2022-07-20 12:31 | Emergency (ER) | payer OTHER, SELFPAY ==
--- NOTE | ~2022-07-20 | CT_ITS ---
EXAMINATION: CT ABDOMEN AND PELVIS WITHOUT CONTRAST CLINICAL INFORMATION: Left-sided flank pain. COMPARISON: Multiple prior studies. Most recent KUB 05/28/2022, CT abdomen pelvis 05/15/2022 TECHNIQUE: Multidetector volumetric imaging was performed from the superior aspect of the liver through the pubic symphysis. Sagittal and coronal reformatted images were obtained on the technologist's workstation. This CT examination was performed using dose optimization techniques as appropriate, variously including the following: *Automated exposure control *Adjustment of mA and/or kV according to patient size (this includes techniques or standardized protocols for targeted exams where dose is matched to indication/reason for exam; i.e. extremities or head) *Use of iterative reconstruction technique DLP: 462 mGy-cm FINDINGS: LUNG BASES: The visualized lung bases are unremarkable. LIVER, GALLBLADDER, AND BILIARY TREE: The liver is normal in size, shape, and attenuation. No focal hepatic lesion or biliary ductal dilatation is present. The gallbladder is unremarkable with no evidence of radiopaque gallstones, gallbladder wall thickening, or obvious pericholecystic inflammatory changes. PANCREAS: Unremarkable. SPLEEN: Unremarkable. ADRENAL GLANDS: Unremarkable. KIDNEYS AND URETERS: Numerous small, 4 mm and less in size, bilateral renal kidney stones. The overall size and number of the kidney stones is similar to the CAT scan of 05/15/2022. There is no hydronephrosis. There are no ureteral calculi. Kidneys are normal in size and contour. No edema in the perinephric space. BLADDER: Unremarkable. GASTROINTESTINAL TRACT: The small and large bowel are unremarkable. The appendix is unremarkable. ABDOMINAL WALL: No significant hernia is appreciated. LYMPH NODES: Normal. VASCULAR: Unremarkable. PELVIC VISCERA: Unremarkable. OSSEOUS STRUCTURES: Degenerative disc height narrowing with small endplate spurs at L5-S1 CT/CT abdomen pelvis wo IV con IMPRESSION: Numerous small bilateral renal stones. No ureteral calculi or hydronephrosis. Fleischner guidelines were followed.
[2022-07-20 12:36] VITALS: BP 142/88; PULSE 88; O2SAT 98
[2022-07-20 12:38] VITALS: BP 135/72; PULSE 70; RESP 16; TEMP 36.8; O2SAT 96; BMI 24.0
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
[2022-07-20 13:24] LABS: MANUAL DIFF FLAG NO
[2022-07-20 13:27] LABS: Basophils Absolute Auto 0.1 X10*3/uL (0.0-0.2); Basophils Percent Auto 0.9 % (0-2); Eosinophils Absolute Auto 0.1 X10*3/uL (0.0-0.4); Eosinophils Percent Auto 0.9 % (0-4); Hematocrit 43.3 % (42.0-52.0); Hemoglobin 14.6 g/dl (14.0-18.0); Imm Gran Abs Auto 0.02 X10*3/uL (0.00-0.03); Imm Gran Pct Auto 0.3 % (0.0-0.4); Lymphocytes Absolute Auto 1.4 X10*3/uL (1.2-4.9); Lymphocytes Percent Auto 21.2 % (20-40); Mean Corpuscular HGB Conc 33.7 g/dl (31.0-36.0); Mean Corpuscular Hemoglobin 30.2 pg (27.0-33.0); Mean Corpuscular Volume 89.6 fL (80.0-98.0); Mean Platelet Volume 9.7 fL (9.4-12.4); Monocytes Absolute Auto 0.4 X10*3/uL (0.1-1.2); Monocytes Percent Auto 6.8 % (2-11); Neutrophils Absolute Auto 4.4 x10*3/uL (2.0-8.3); Neutrophils Percent Auto 69.9 % (45-73); Platelet Count 284 X10*3/uL (160-400); Red Blood Count 4.83 X10*6/uL (4.60-5.80); Red Cell Distribution Width 15.2 % (11.0-16.0); White Blood Count 6.4 X10*3/uL (4.8-10.8)
[2022-07-20 13:45] LABS: Alanine Aminotransferase 11 U/L (0-40); Albumin Level 4.1 g/dL (3.5-5.0); Alkaline Phosphatase 60 U/L (39-117); Anion Gap 9 (12-20); Aspartate Amino Transferase 16 U/L (5-37); Bilirubin Direct 0.2 mg/dL (0.0-0.5); Bilirubin Total 0.9 mg/dL (0.0-1.0); Blood Urea Nitrogen 13 mg/dL (9-16); Calcium 9.4 mg/dL (8.4-10.2); Carbon Dioxide 27 mmol/L (22-29); Chloride 107 mmol/L (96-108); Creatinine Clr Calc Pharmacy 117.4; Estimated Glomerular Filt Rate > 60; Glucose Random 100 mg/dL (60-115); Magnesium 2.1 mg/dL (1.6-2.6); Potassium 4.1 mmol/L (3.3-5.1); Sodium 139 mmol/L (135-145); Total Protein 6.7 g/dL (6.5-8.0)
[2022-07-20 15:16] VITALS: BP 138/96; PULSE 67; RESP 16; TEMP 36.1; O2SAT 97
--- NOTE | 2022-07-20 15:17 | PC.NURSE ---
PT STATES INCREASED RIGHT FLANK PAIN R/T KIDNEY STONE HE IS ALSO SPEAKING ABOUT HIS DEPRESSION AND HOSPITALIZATIONS FOR IT
[2022-07-20 16:01] LABS: Appearance Urine Clear; Color Urine Yellow; Glucose Urine UA Negative (Negative); Leukocyte Esterase Urine Negative (Negative); Nitrite Urine Negative (Negative); PH 8.5 (5.0-9.0); Specific Gravity - Urine 1.015 (1.005-1.025); Urine Blood Negative (Negative); Urine Ketones Trace mg/dL (Negative); Urine Protein Negative (Neg-Trace)
[2022-07-20 16:48] LABS: Amphetamine Screen Urine Not Detected (Not Detect); Barbiturates, Urine Not Detected (Not Detect); Benzodiazepines Screen Urine Not Detected (Not Detect); Cannabinoid Screen Urine POSITIVE (Not Detect); Cocaine Screen Urine Not Detected (Not Detect); Fentanyl, urine POSITIVE (Not Detect); Opiate Screen Urine Not Detected (Not Detect); Phencyclidine Screen Urine Not Detected (Not Detect)
[2022-07-20 17:02] VITALS: BP 138/93; PULSE 61; RESP 18; TEMP 36.7; O2SAT 96
--- NOTE | 2022-07-20 17:23 | PC.NURSE ---
PT AWAITING CARE TEAM CONSULT FOR DEPRESSION, HE CONTINUES TO REPORT FLANK AND GROIN PAIN
[2022-07-20 18:00] LABS: Ethanol < 10 mg/dL
[2022-07-20 21:13] VITALS: BP 136/76; PULSE 61; RESP 18; TEMP 36.6; O2SAT 95
--- NOTE | 2022-07-20 22:49 | PC.NURSE ---
Pt not at the bedside. Pt eloped.
== END 2022-07-20 22:51 | disposition left against medical advice (07) ==
PROVIDERS: Physician Assistant; Emergency Provider Student in an Organized Health Care Education/Training Program
DX: N23 Unspecified renal colic (principal); F33.1 Major depressive disorder, recurrent, moderate; R11.0 Nausea; F11.90 Opioid use, unspecified, uncomplicated; F12.90 Cannabis use, unspecified, uncomplicated; F17.210 Nicotine dependence, cigarettes, uncomplicated; Z71.6 Tobacco abuse counseling; Z79.899 Other long term (current) drug therapy
CPT/HCPCS: 36415; 74176; 80048; 80076; 80307; 81003; 82077; 83735; 85025; 99284; S9485

== ENCOUNTER 2022-08-09 20:25 | Inpatient (IN) | payer OTHER, MEDICAID, SELFPAY ==
--- NOTE | ~2022-08-09 | XR_ITS ---
EXAMINATION: XR CHEST CLINICAL INFORMATION: Chest pain. COMPARISON: Chest x-ray 09/17/2020 TECHNIQUE: 2 views of the chest were obtained. FINDINGS: No significant abnormality is noted involving the heart, lungs, mediastinum, bony thorax or soft tissues. XR/XR chest 2V IMPRESSION: Unremarkable examination.
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
--- NOTE | ~2022-08-09 | XR_ITS ---
EXAMINATION: XR CHEST CLINICAL INFORMATION: Line placement COMPARISON: 08/09/2022 TECHNIQUE: Frontal view of the chest was obtained. FINDINGS: Right IJ central line tip lies in the region of the cavoatrial junction. Lung volumes are symmetric. No focal consolidation is seen. No evidence of pneumothorax, pleural effusion, or pulmonary edema. The cardiomediastinal contour is unremarkable. No acute osseous findings are seen. XR/XR chest 1V IMPRESSION: Right IJ central line tip in the region of the cavoatrial junction.
--- NOTE | ~2022-08-09 | CT_ITS ---
EXAMINATION: CT ABDOMEN AND PELVIS WITHOUT CONTRAST CLINICAL INFORMATION: Abdominal pain with diarrhea COMPARISON: CT abdomen pelvis 08/10/2022 TECHNIQUE: Multidetector volumetric imaging was performed from the superior aspect of the liver through the pubic symphysis. Sagittal and coronal reformatted images were obtained on the technologist's workstation. This CT examination was performed using dose optimization techniques as appropriate, variously including the following: *Automated exposure control *Adjustment of mA and/or kV according to patient size (this includes techniques or standardized protocols for targeted exams where dose is matched to indication/reason for exam; i.e. extremities or head) *Use of iterative reconstruction technique DLP: 502 mGy-cm FINDINGS: LUNG BASES: New small bilateral pleural effusions. Bibasilar airspace opacities new from prior favoring atelectasis with superimposed aspiration or infection difficult to exclude. Partially imaged central venous catheter terminates in the right atrium. ABDOMINAL AND PELVIC WALL: Partially imaged asymmetric right gynecomastia, recommend correlation with clinical exam. Tiny fat-containing umbilical hernia. LIVER AND BILIARY TREE: Unremarkable. GALLBLADDER: Unremarkable. PANCREAS: Unremarkable. SPLEEN: Unremarkable. ADRENAL GLANDS: Unremarkable. KIDNEYS AND URETERS: Bilateral nonobstructing renal stones measuring up to 3 mm in the left upper pole. GASTROINTESTINAL TRACT: Circumferential thickening of the distal esophagus recommend correlation with symptoms of reflux or esophagitis. Colonic wall thickening and extending from the transverse colon to the sigmoid colon with infiltration of the pericolonic fat and trace fluid similar to possibly minimally progressed from prior with wall thickening and perienteric fat stranding involving the distal ileum possibly slightly improved from prior. Fluid is noted throughout the colon compatible with a diarrheal state. VASCULAR: Retroaortic left renal vein. LYMPH NODES/PERITONEUM: No lymphadenopathy. FREE FLUID: None. BLADDER: Ortiz catheter decompresses the bladder with air within the bladder which may be related to Ortiz catheter placement. PELVIC VISCERA: Unremarkable. OSSEOUS STRUCTURES: Degenerative disc disease at L5-S1. CT/CT abdomen pelvis wo IV con IMPRESSION: 1. Colonic wall thickening and extending from the transverse colon to the sigmoid colon with infiltration of the pericolonic fat and trace fluid similar to possibly minimally progressed from prior with wall thickening and perienteric fat stranding involving the distal ileum possibly slightly improved from prior. Constellation of findings is suggestive of an enterocolitis, which may be infectious or inflammatory. Fluid is noted throughout the colon compatible with a diarrheal state. 2. New small bilateral pleural effusions. Bibasilar airspace opacities new from prior favoring atelectasis with superimposed aspiration or infection difficult to exclude. 3. Circumferential thickening of the distal esophagus recommend correlation with symptoms of reflux or esophagitis. 4. Bilateral nonobstructing renal stones measuring up to 3 mm in the left upper pole. 5. Partially imaged asymmetric right gynecomastia, recommend correlation with clinical exam.
[2022-08-09 20:38] VITALS: BP 171/103; BP 181/77; PULSE 75; PULSE 76; RESP 16; TEMP 36.6; O2SAT 94; O2SAT 99; BMI 17.7
--- NOTE | 2022-08-09 21:30 | ECG_ITS ---
Test Reason : pain Blood Pressure : / mmHG Vent. Rate : 073 BPM Atrial Rate : 073 BPM P-R Int : 144 ms QRS Dur : 092 ms QT Int : 384 ms P-R-T Axes : 018 -17 032 degrees QTc Int : 423 ms Normal sinus rhythm Minimal voltage criteria for LVH, may be normal variant ( Sotero product ) Borderline ECG When compared with ECG of 02-JUN-2022 19:14, No significant change was found Referred By: Elmer Chaparro Electronically Signed By:FERMÍN SANTACRUZ
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
--- NOTE | 2022-08-09 22:42 | PC.NURSE ---
Went in to put in IV and draw labs. Asked patient what happened to him. he told me, I went on a binge for 4 days [place]. He hadn't eaten or drunk anything for 4 days when he gets out of here he is going to kill himself. Elmer Chaparro and charge notified. Patient changed and personal items are locked up. Will be moved to ed 17H.
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
[2022-08-10] VITALS (25 sets, daily range): BP systolic 125–178; BP diastolic 60–101; PULSE 74–94; RESP 16–24; TEMP 36.5–37.3; O2SAT 92–98; BMI 24.9
--- NOTE | 2022-08-10 | MHC.EDTECH ---
0000 rounding done ,vitals sign taken ,rn aware of pt high bp ,blood drawn and sent to lab .
--- NOTE | 2022-08-10 00:05 | PC.NURSE ---
Pt difficult blood draw, multiple attempts done for IV access, provider Sean Lemus at bedside attempting an ultrasound guided IV. Lab work obtained and sent to lab.
--- NOTE | 2022-08-10 00:15 | PC.NURSE ---
Pt calm and cooperative, A&Ox4. Reports all over body pain. Provider Dr. Horta at bedside with ultrasound. 20g EJ placed to left side, Pt tolerated well. Fluids given as documented.
[2022-08-10 00:22] LABS: Hematocrit 43.5 % (42.0-52.0); Hemoglobin 15.9 g/dl (14.0-18.0); Mean Corpuscular HGB Conc 36.6 g/dl (31.0-36.0); Mean Corpuscular Hemoglobin 29.4 pg (27.0-33.0); Mean Corpuscular Volume 80.6 fL (80.0-98.0); Mean Platelet Volume 10.3 fL (9.4-12.4); Platelet Count 276 X10*3/uL (160-400); Red Cell Distribution Width 13.6 % (11.0-16.0); WBC ABN SCTR FOR CBC 1; White Blood Count 27.7 X10*3/uL (4.8-10.8)
[2022-08-10 00:28] LABS: INTERNATIONAL NORM RATIO 1.2 (0.9-1.1)
[2022-08-10 00:31] LABS: Partial Thromboplastin Time 25.7 SEC (26.0-36.4)
[2022-08-10 00:37] LABS: Troponin-I High Sensitivity 21.8 ng/L (<3.5-35.0)
[2022-08-10] MEDS: 0.9 % Sodium Chloride 1,000 ML 999 ML IV (00:40)
[2022-08-10 00:41] LABS: Band Neutrophils Percent 9 % (3-5); Lymphocytes Absolute Manual 1.1 X10*3/uL (1.2-4.9); Lymphocytes Percent Manual 4 % (20-40); Monocytes Absolute Manual 1.9 X10*3/uL (0.1-1.2); Monocytes Percent Manual 7 % (2-11); Neutrophils Absolute Manual 24.7 X10*3/uL (2.0-8.3); Neutrophils Percent Manual 80 % (45-73)
[2022-08-10 00:43] LABS: Dohle Bodies PRESENT; Platelet Estimate NORMAL (NORMAL); Platelet Morphology Comment NORMAL; RBC Morphology NORMAL; Toxic Granulation PRESENT; Toxic Vacuolation PRESENT
[2022-08-10 01:06] LABS: Alanine Aminotransferase 85 U/L (0-40); Albumin Level 3.4 g/dL (3.5-5.0); Alkaline Phosphatase 104 U/L (39-117); Anion Gap 39 (12-20); Aspartate Amino Transferase 83 U/L (5-37); Calcium 7.2 mg/dL (8.4-10.2); Carbon Dioxide 19 mmol/L (22-29); Chloride 76 mmol/L (96-108); Creatinine Clr Calc Pharmacy 6.1; Estimated Glomerular Filt Rate 5; Ethanol < 10 mg/dL; Glucose Random 104 mg/dL (60-115); Lipase 167 U/L (8-78); Potassium 6.2 mmol/L (3.3-5.1); Sodium 128 mmol/L (135-145); Total Protein 6.6 g/dL (6.5-8.0)
[2022-08-10 01:10] LABS: Blood Urea Nitrogen 214 mg/dL (9-16)
[2022-08-10 01:21] LABS: Salicylate < 5.0 mg/dL (15-30)
[2022-08-10 01:22] LABS: Acetaminophen LAB < 17 mcg/mL (<30)
[2022-08-10 01:24] LABS: Lactic Acid 0.9 mmol/L (0.5-2.0)
[2022-08-10] MEDS: Dextrose 10 % 250 ML 750 ML IV ×2 (01:33→05:30)
[2022-08-10] MEDS: Insulin Regular, Human 100 UNIT/ML 3 ML VIAL IVPUSH (01:37)
[2022-08-10] MEDS: Sodium Zirconium Cyclosilicate 10 GM POWD.PACK PO (01:39)
[2022-08-10 01:44] LABS: Glucose, Whole Blood 130 mg/dL (60-115)
[2022-08-10] MEDS: cefTRIAXone sodium 1 GM in 0.9 % Sodium Chloride 50 ML IV (01:48)
[2022-08-10] MEDS: Calcium Chloride 1 GM/10 ML SYRINGE 2 GM IVPUSH (01:59)
[2022-08-10 02:04] LABS: COVID-19 Test Negative (Negative); IDNOW Serial# BCCEAD1C
[2022-08-10 02:10] LABS: ABG Base Excess -1.6 mmol/L; ABG HCO3 21 mmol/L (22-26); ABG pCO2 31 mmHg (32-45); ABG pH 7.43 (7.35-7.45); ABG pO2 68 mmHg (83-108)
--- OUTSIDE RECORDS SUMMARY | 2022-08-10 02:13 | XMS_ITS | Continuity of Care Document ---
Author Name Unknown Organization [facility] ter Address [address] [place] [phone]- Care Team Providers Care Merchandising Coordinator Name Role Phone Alexy Nguyen MD, Clotilde Lopez Primary Care Physici an [place] [facility] [place] - 04/20/[address] [address]- Discharge Disposition: A-D/C Walkout Attending Physician: Not on Staff, Attending MD Admitting Physician: Not on Staff, Admitting MD Referring Physician: Not on Staff, Referring MD Allergies, Adverse Reactions, Alerts Substance Reaction Severity Status NKA Active Immunizations Not Given Vaccine Date Status Refusal Reason pneumococcal 23-valent vaccine 05/01/20 Not Given Patient Refuses pneumococcal 23-valent vaccine 10/04/19 Not Given Patient Refuses influenza virus vaccine, inactivated 05/01/20 Not Given Patient Refuses Medications ammonium lactate 12% topical cream See Instructions, apply to affected area ( feet ) twice daily after applying Clotrimazole cream, # 140 Gm, 1 Refills, Maintenance, 03/12/20 9:26:00 EST, Cream, [id number], partial fill upon patient request, apply to affected area ( feet ) twic... Start Date: 03/12/20 Status: Ordered buPROPion 450 mg/24 hours (XL) oral tablet, extended release 1 tablet = 450 mg, By Mouth, Daily, for mood/anxiety, # 30 tablet, 0 Refills, Maintenance, 218:10:00 EST, ER Tablet, [id number], Partial fill upon patient request, 180, cm, 05/14/20 23:58:00 EST, Height, 86.4, kg, 05/01/20 16:21:00 EST,... Start Date: 05/15/20 Status: Ordered hydrOXYzine hydrochloride 50 mg oral tablet See Instructions, take 1 tablet up to 2 times daily as needed for anxiety, # 60 tablet, 0 Refills, Maintenance, 05/15/20 8:10:00 EST, Tablet, [facility]/pharmacy #[id number], Partial fill upon patient request, 180, cm, 05/14/20 23:58:00 EST, Height, 86.4, kg, ... Start Date: 05/15/20 Status: Ordered lisinopril 20 mg oral tablet 20 mg, 1, tablet, By Mouth, Daily, # 30 tablet, Refills 0, Tot. Refills 0, Maintenance, 09/16/20 11:18:00 EDT, Route to Pharmacy Electronically, [facility]/pharmacy #[id number], Partial fill upon patient request if the prescription is for a schedule II opioid drug... Start Date: 09/16/20 Status: Ordered melatonin 3 mg oral tablet 2 tablet = 6 mg, By Mouth, Daily at bedtime, for sleep, # 60 tablet, 1 Refills, Maintenance, 05/15/20 8:11:00 EST, Tablet, [facility]/pharmacy #[id number], Partial fill upon patient request, 180, cm, 05/14/20 23:58:00 EST, Height, 86.4, kg, 05/01/20 16:21:00 EST,... Start Date: 05/15/20 Status: Ordered morphine 15 mg oral tablet, immediate release 1 tablet = 15 mg, By Mouth, Every 4 hours, PRN for pain, # 12 tablet, 0 Refills, Acute 04/28/21 13:08:00 EST, 04/17/21 13:07:00 EST, Tablet, [facility]/pharmacy #[id number], Partial fill upon patient request if the prescription is for a schedule II opioid drug., 1... Start Date: 04/17/21 Stop Date: 04/28/21 Status: Ordered naltrexone 50 mg oral tablet 1 tablet = 50 mg, By Mouth, Daily, for opiate dependence, # 30 tablet, 1 Refills, Maintenance, 03/12/20 9:34:00 EST, Tablet, [facility]/pharmacy #[id number], 180, cm, 03/12/20 9:29:00 EST, Height, 84.2, kg, 03/12/20 9:29:00 EST, Dry Weight Start Date: 03/12/20 Status: Ordered prazosin 1 mg oral capsule 3 mg, 3, capsule, By Mouth, Daily in AM, Total daily dose of 7 mg, 3 mg in AM and 4 mg in PM, # 90 capsule, Refills 0, Tot. Refills 0, Maintenance, 05/15/20 8:11:00 EST, Route to Pharmacy Electronically, [facility]/pharmacy #[id number], Partial fill upon patient r... Start Date: 05/15/20 Stop Date: 06/14/20 Status: Ordered prazosin 2 mg oral capsule 2 capsule = 4 mg, By Mouth, Daily at bedtime, take 2 capsule (=4 mg ) daily at bedtime for nightmares, # 60 capsule, 1 Refills, Maintenance, 03/12/20 9:29:00 EST, Capsule, [facility]/pharmacy #[id number], Partialfill upon patient request, 180, cm, 03/12/20 9:29:0... Start Date: 03/12/20 Status: Ordered prazosin 2 mg oral capsule 1 capsule = 2 mg, By Mouth, Daily at bedtime, # 30 capsule, 0 Refills, Maintenance, 05/16/20 9:14:00 EST, Capsule, [facility]/pharmacy #[id number], Total daily dose of 7 mg with 3 mg AM dose, 180, cm, 05/15/20 9:33:00 EST, Height, 86.4, kg, 05/01/20 16:21:00 EST,... Start Date: 05/16/20 Stop Date: 06/15/20 Status: Ordered selenium sulfide 2.25% topical shampoo See Instructions, Topically Every 72 hours, # 180 mL, 0 Refills, Maintenance, 05/15/20 8:17:00 EST,Shampoo, [facility]/pharmacy #[id number], Partial fill upon patient request if the prescription is for a schedule II opioid drug., Topically Every 72 hours, 180, cm... Start Date: 05/15/20 Status: Ordered SEROquel 200 mg oral tablet 500 mg, 2.5, tablet, By Mouth, Daily at bedtime, # 75 tablet, Refills 0, Tot. Refills 0, Maintenance, 05/15/20 8:13:00 EST, Route to Pharmacy Electronically, [facility]/pharmacy #[id number], Partial fill upon patient request if the prescription is for a schedule I... Start Date: 05/15/20 Stop Date: 06/14/20 Status: Ordered SEROquel 25 mg oral tablet 50 mg, 2, tablet, By Mouth, 2 times a day, PRN, severe anxiety, insomnia, # 120 tablet, Refills 0, Tot. Refills 0, Maintenance, Other, 05/15/20 8:13:00 EST, Route to Pharmacy Electronically, [id number], Partial fill upon patient request if the... Start Date: 05/15/20 Stop Date: 06/14/20 Status: Ordered tamsulosin 0.4 mg oral capsule 0.4 mg, 1, capsule, By Mouth, Daily, # 14 capsule, Refills 0, Tot. Refills 0, Maintenance, 12/21/2117:04:00 EDT, Route to Pharmacy Electronically, [id number], Partial fill upon patient request if the prescription is for a schedule II opioid d... Start Date: 12/21/20 Status: Ordered tamsulosin 0.4 mg oral capsule 0.4 mg, 1, capsule, By Mouth, Daily, # 30 capsule, Refills 0, Tot. Refills 0, Maintenance, 11/26/2114:31:00 EDT, Route to Pharmacy Electronically, [id number], Partial fill upon patient request if the prescription is for a schedule II opioid d... Start Date: 11/26/20 Status: Ordered tamsulosin 0.4 mg oral capsule 0.4 mg, 1, capsule, By Mouth, Daily, # 7 capsule, Refills 0, Tot. Refills 0, Maintenance, 04/17/21 12:54:00 EST, Route to Pharmacy Electronically, [id number], Partial fill upon patient request if the prescription is for a schedule II opioid dr... Start Date: 04/17/21 Status: Ordered tamsulosin 0.4 mg oral capsule 0.4 mg, 1, capsule, By Mouth, Daily, # 7 capsule, Refills 0, Tot. Refills 0, Maintenance, 04/17/21 13:07:00 EST, Route to Pharmacy Electronically, [id number], Partial fill upon patient request if the prescription is for a schedule II opioid dr... Start Date: 04/17/21 Status: Ordered traZODone 100 mg oral tablet 200 mg, 2, tablet, By Mouth, Daily at bedtime, # 60 tablet, Refills 0, Tot. Refills 0, Maintenance,05/15/20 8:15:00 EST, Route to Pharmacy Electronically, [facility]/pharmacy #[id number], Partial fill upon patient request if the prescription is for a schedule II... Start Date: 05/15/20 Stop Date: 06/14/20 Status: Ordered Zofran 4 mg oral tablet 1 tablet = 4 mg, By Mouth, Every 8 hours, PRN as needed for nausea/vomiting, # 12 tablet, 0 Refills, Maintenance, 12/21/20 18:04:00 EDT, Tablet, [facility]/pharmacy #[id number], Partial fill upon patient request if the prescription is for a schedule II opioid drug... Start Date: 12/21/20 Status: Ordered Zofran 4 mg oral tablet 1 tablet = 4 mg, By Mouth, Every 8 hours, PRN as needed for nausea/vomiting, # 10 tablet, 0 Refills, Maintenance, 11/26/20 15:31:00 EDT, Tablet, [facility]/pharmacy #[id number], Partial fill upon patient request if the prescription is for a schedule II opioid drug... Start Date: 11/26/20 Status: Ordered Vital Signs Most recent to oldest [Reference Range]: 1 Oxygen Saturation [94-100 %] 97 % (04/20/21 3:27 PM) Pulse Rate [55-90 bpm] 82 bpm (04/20/21 3:27 PM) Mode of Delivery (Oxygen) Room air (04/20/21 3:27 PM) Social History Social History Type Response Smoking Status Former smoker, quit more than 30 days ago; Other: Reports no current use. Previously reported 1/2 to 1 ppd.; entered on: 04/30/20 Sex
--- OUTSIDE RECORDS SUMMARY | 2022-08-10 02:13 | XMS_ITS | Continuity of Care Document ---
Author Name Unknown Organization [facility] ter Address [address] [place] [address]- Care Team Providers Care Associate Professor Of Communication Name Role Phone Not on Staff, PCP Primary Care Physician Unavail able Encounter [facility] [place] Date(s): 09/26/21 - 09/26/[address] [address]- Encounter Diagnosis Heroin overdose(Final) - 09/26/21 Discharge Disposition: A-D/C AMA Attending Physician: David Muñiz MD Admitting Physician: Dvaid Muñiz MD Referring Physician: Not on Staff, Referring MD Allergies, Adverse Reactions, Alerts No Known Allergies Immunizations Not Given Vaccine Date Status Refusal Reason influenza virus vaccine, inactivated 07/06/21 Not Given Patient Refuses influenza virus vaccine, inactivated 05/01/20 Not Given Patient Refuses pneumococcal 23-valent vaccine 05/01/20 Not Given Patient Refuses pneumococcal 23-valent vaccine 10/04/19 Not Given Patient Refuses Medications amLODIPine 5 mg oral tablet 5 mg, 1, tablet, By Mouth, Daily, # 30 tablet, Refills 0, Tot. Refills 0, Maintenance, 07/10/21 8:57:00 EDT, Route to Pharmacy Electronically, [facility]/pharmacy #[id number], Partial fill upon patient request ifthe prescription is for a schedule II opioid drug.,... Start Date: 07/10/21 Status: Ordered buPROPion 450 mg/24 hours (XL) oral tablet, extended release 1 tablet = 450 mg, By Mouth, Daily, for mood/anxiety, # 30 tablet, 0 Refills, Maintenance, 228:56:00 EDT, ER Tablet, [id number], Partial fill upon patient request, 180, cm, 07/09/21 19:52:00 EDT, Height, 79.5, kg, 07/04/21 19:32:00 EST,... Start Date: 07/10/21 Status: Ordered hydrOXYzine hydrochloride 50 mg oral tablet See Instructions, take 1 tablet up to 2 times daily as needed for anxiety, # 60 tablet, 0 Refills, Maintenance, 07/10/21 8:58:00 EDT, Tablet, [id number], Partial fill upon patient request, 180, cm, 07/09/21 19:52:00 EDT, Height, 79.5, kg, 06/24... Start Date: 07/10/21 Status: Ordered Remeron 15 mg oral tablet 0.5 tablet = 7.5 mg, By Mouth, Daily at bedtime, # 15 tablet, 0 Refills, Maintenance, 07/10/21 10:44:00 EDT, Tablet, [id number], Partial fill upon patient request if the prescription is for aschedule II opioid drug., 180, cm, 07/10/21 10:37:0... Start Date: 07/10/21 Status: Ordered SEROquel 200 mg oral tablet 200 mg, 1, tablet, By Mouth, Daily at bedtime, # 30 tablet, Refills 0, Tot. Refills 0, Maintenance,07/10/21 8:57:00 EDT, Route to Pharmacy Electronically, [id number], Partial fill upon patient request if the prescription is for a schedule II... Start Date: 07/10/21 Status: Ordered tamsulosin 0.4 mg oral capsule 0.4 mg, 1, capsule, By Mouth, Daily, # 30 capsule, Refills 0, Tot. Refills 0, Maintenance, :57:00 EDT, Route to Pharmacy Electronically, [id number], Partial fill upon patient request if the prescription is for a schedule II opioid dr... Start Date: 07/10/21 Status: Ordered traZODone 50 mg oral tablet 50 mg, 1, tablet, By Mouth, Daily at bedtime, # 30 tablet, Refills 0, Tot. Refills 0, Maintenance, 07/10/21 9:01:00 EDT, Route to Pharmacy Electronically, [id number], Partial fill upon patient request if the prescription is for a schedule II o... Start Date: 07/10/21 Status: Ordered Vital Signs Most recent to oldest [Reference Range]: 1 Oxygen Saturation [94-100 %] 95 % (09/26/21 10:12 PM) Pulse Rate [55-90 bpm] 92 bpm *H* (09/26/21 10:12 PM) Blood Pressure [90-138/55-84 mm Hg] 120/ 82mm Hg (09/26/21 10:12 PM) Respiratory Rate [16-30 br/min] 16 br/mi n (09/26/21 10:12 PM) Temperature [96.8-100.4 DegF] 98.2 DegF (09/26/21 10:12 PM) Mode of Delivery (Oxygen) Room air (09/26/21 10:12 PM) Blood pressure sites Arm, left (09/26/21 10:12 PM) Temperature Route Oral (09/26/21 10:12 PM) Social History Social History Type Response Smoking Status Former smoker, quit more than 30 days ago; Other: Reports no current use. Previously reported 1/2 to 1 ppd.; entered on: 04/30/20 Sex
--- OUTSIDE RECORDS SUMMARY | 2022-08-10 02:13 | XMS_ITS | Continuity of Care Document ---
Author Name Unknown Organization [facility] ter Address [address] [place] [address]- Care Team Providers Care Socket Puller Name Role Phone Alexy Nguyen MD, Clotilde Lopez Primary Care Physici an [place] [facility] [place] - 10/07/[address] [address]- Encounter Diagnosis Suicidal ideology, toxic ingestion(Final) - 10/06/21 Discharge Disposition: Discharge to Hospice Med. Facility (Resp Attending Physician: Jacquie Baltazar MD Admitting Physician: Jacquie Baltazar MD Referring Physician: Not on Staff, Referring [...] amLODIPine 5 mg oral tablet 5 mg, Tablet, By Mouth, 10/07/21 9:00:00 EDT Start Date: 10/07/21 Stop Date: 10/07/21 Status: Completed amLODIPine 5 mg oral tablet 5 mg, 1, tablet, By Mouth, Daily, # 30 tablet, Refills 0, Tot. Refills 0, Maintenance, 07/10/21 8:57:00 EDT, Route to Pharmacy Electronically, [facility]/pharmacy #[id number], Partial fill upon patient request ifthe prescription is for a schedule II opioid drug.,... Start Date: 07/10/21 Status: Ordered buPROPion 450 mg/24 hours (XL) oral tablet, extended release 1 tablet = 450 mg, By Mouth, Daily, for mood/anxiety, # 30 tablet, 0 Refills, Maintenance, 03/17/228:56:00 EDT, ER Tablet, [facility]/pharmacy #[id number], Partial fill upon patient request, 180, [...] 0 Refills, Maintenance, 07/10/21 10:44:00 EDT, Tablet, [facility]/pharmacy #[id number], Partial fill upon patient request if the prescription is for aschedule II opioid drug., 180, cm, 07/10/21 10:37:0... Start Date: 07/10/21 Status: Ordered SEROquel 200 mg oral tablet 200 mg, 1, tablet, By Mouth, Daily at bedtime, # 30 tablet, Refills 0, Tot. Refills 0, Maintenance,07/10/21 8:57:00 EDT, Route to Pharmacy Electronically, [facility]/pharmacy #[id number], Partial fill upon patient request if the prescription is for a schedule II... Start Date: 07/10/21 Status: Ordered tamsulosin 0.4 mg oral capsule 0.4 mg, 1, capsule, By Mouth, Daily, # 30 capsule, Refills 0, Tot. Refills 0, Maintenance, :57:00 EDT, Route to Pharmacy Electronically, [facility]/pharmacy #[id number], Partial fill upon patient request if the prescription is for a schedule II opioid dr... Start Date: 07/10/21 Status: Ordered traZODone 50 mg oral tablet 50 mg, 1, tablet, By Mouth, Daily at bedtime, # 30 tablet, Refills 0, Tot. Refills 0, Maintenance, 07/10/21 9:01:00 EDT, Route to Pharmacy Electronically, [facility]/pharmacy #[id number], Partial fill upon patient request if the prescription is for a schedule II o... Start Date: 07/10/21 Status: Ordered Problem List Condition Effective Dates Status Health Status Inform ant BPH without obstruction/lowe r urinary tract symptoms(Confirmed) Active Hypertension(Confirmed) Active Major depression(Confirmed) Active Polysubstance abuse(Confirmed) Active Hepatitis C(Confirmed) Active Vital Signs Most recent to oldest [Reference Range]: 1 2 3 Oxygen Saturation [94-100 %] 99 % (10/07/21 9:19 AM) 99 % (10/07/21 5:29 AM) 99 % (10/06/21 9:23 PM) Pulse Rate [55-90 bpm] 83 bpm (10/07/21 9:19 AM) 63 bpm (10/07/21 5:29 AM) 65 bpm (10/06/21 9:23 PM) Blood Pressure [90-138/55-84 mm Hg] 124/88mm Hg (10/07/21 9:19 AM) 116/82mm Hg (10/07/21 5:29 AM) 123/81mm Hg (10/06/21 9:23 PM) Respiratory Rate [16-30 br/min] 16 br/min (10/07/21 9:19 AM) 18 br/min (10/07/21 5:29 AM) 18 br/min (10/06/21 9:23 PM) Temperature [96.8-100.4 DegF] 98.2 DegF (10/07/21 5:29 AM) 98.3 DegF (10/06/21 9:23 PM) 98.0 DegF (10/06/21 1:21 PM) Mode of Delivery (Oxygen) Room air (10/07/21 9:19 AM) Room air (10/07/21 5:29 AM) Room air (10/06/21 9:23 PM) Blood pressure sites Arm, right (10/07/21 9:19 AM) Arm, left (10/07/21 5:29 AM) Leg, right (10/06/21 9:23 PM) Temperature Route Oral (10/07/21 5:29 AM) Oral (10/06/21 9:23 PM) Oral (10/06/21 1:21 PM) Social History Social History Type Response Smoking Status Former smoker, quit more than 30 days ago; Other: Reports no current use. Previously reported 1/2 to 1 ppd.; entered on: 04/30/20 Sex
--- OUTSIDE RECORDS SUMMARY | 2022-08-10 02:13 | XMS_ITS | Continuity of Care Document ---
Author Name Unknown Organization [facility] ter Address [address] [place] [phone]- Care Team Providers Care Institute Director Name Role Phone Alexy Nguyen MD, Clotilde Lopez Primary Care Physici an Encounter [facility] [place] Date(s): 12/21/20 - 12/21/[address] [address]- Encounter Diagnosis Flank pain(Final) - 12/21/20 Discharge Disposition: A-D/C Home Attending Physician: Valentin Donato MD Admitting Physician: Valentin Donato MD Referring Physician: Not on Staff, Referring [...] 0 Refills, Maintenance, 05/15/20 8:10:00 EST, Tablet, [facility]/pharmacy #[id number], Partial fill upon patient request, 180, cm, 05/14/20 23:58:00 EST, Height, 86.4, kg, ... Start Date: 05/15/20 Status: Ordered lisinopril 20 mg oral tablet 20 mg, 1, tablet, By Mouth, Daily, # 30 tablet, Refills 0, Tot. Refills 0, Maintenance, 09/16/20 11:18:00 EDT, Route to Pharmacy Electronically, [facility]/pharmacy #[id number], Partial fill upon patient request if the prescription is for a schedule II opioid drug... Start Date: 09/16/20 Status: Ordered melatonin 3 mg oral tablet 2 tablet = 6 mg, By Mouth, Daily at bedtime, for sleep, # 60 tablet, 1 Refills, Maintenance, 05/15/20 8:11:00 EST, Tablet, [facility]/pharmacy #[id number], Partial fill upon patient request, 180, cm, 05/14/20 23:58:00 EST, Height, 86.4, kg, 05/01/20 16:21:00 EST,... Start Date: 05/15/20 Status: Ordered naltrexone 50 mg oral tablet 1 tablet = 50 mg, By Mouth, Daily, for opiate dependence, # 30 tablet, 1 Refills, Maintenance, 03/12/20 9:34:00 EST, Tablet, [facility]/pharmacy #[id number], 180, cm, 03/12/20 9:29:00 EST, Height, 84.2, kg, 03/12/20 9:29:00 EST, Dry Weight Start Date: 03/12/20 Status: Ordered OxyCODONE IR Tablet 5 mg, Tablet, By Mouth, Once, STAT, 12/21/20 16:33:00 EDT, Stop date 12/21/20 16:33:00 EDT Start Date: 12/21/20 Stop Date: 12/21/20 Status: Completed prazosin 1 mg oral capsule 3 mg, 3, capsule, By Mouth, Daily in AM, Total daily dose of 7 mg, 3 mg in AM and 4 mg in PM, # 90 capsule, Refills 0, Tot. Refills 0, Maintenance, 05/15/20 8:11:00 EST, Route to Pharmacy Electronically, [facility]/pharmacy #[id number], Partial fill upon patient r... Start Date: 05/15/20 Stop Date: 06/14/20 Status: Ordered prazosin 2 mg oral capsule 2 capsule = 4 mg, By Mouth, Daily at bedtime, take 2 capsule (=4 mg ) daily at bedtime for nightmares, # 60 capsule, 1 Refills, Maintenance, 03/12/20 9:29:00 EST, Capsule, [facility]/pharmacy #[id number], Partialfill upon patient request, 180, cm, 03/12/20 9:29:0... Start Date: 03/12/20 Status: Ordered prazosin 2 mg oral capsule 1 capsule = 2 mg, By Mouth, Daily at bedtime, # 30 capsule, 0 Refills, Maintenance, 05/16/20 9:14:00 EST, Capsule, [facility]/pharmacy #[id number], Total daily dose of 7 mg with 3 mg AM dose, 180, cm, 05/15/20 9:33:00 EST, Height, 86.4, kg, 05/01/20 16:21:00 EST,... Start Date: 05/16/20 Stop Date: 06/15/20 Status: Ordered selenium sulfide 2.25% topical shampoo See Instructions, Topically Every 72 hours, # 180 mL, 0 Refills, Maintenance, 05/15/20 8:17:00 EST,Shampoo, [facility]/pharmacy #[id number], Partial fill upon patient request if the prescription is for a schedule II opioid drug., Topically Every 72 hours, 180, cm... Start Date: 05/15/20 Status: Ordered SEROquel 200 mg oral tablet 500 mg, 2.5, tablet, By Mouth, Daily at bedtime, # 75 tablet, Refills 0, Tot. Refills 0, Maintenance, 05/15/20 8:13:00 EST, Route to Pharmacy Electronically, [facility]/pharmacy #[id number], Partial fill upon patient request [...] opioid d... Start Date: 11/26/20 Status: Ordered traZODone 100 mg oral tablet 200 mg, 2, tablet, By Mouth, Daily at bedtime, # 60 tablet, Refills 0, Tot. Refills 0, Maintenance,05/15/20 8:15:00 EST, Route to Pharmacy Electronically, [id number], Partial fill upon patient request if the prescription is for a schedule II... Start Date: 05/15/20 Stop Date: 06/14/20 Status: Ordered Zofran 4 mg oral tablet 1 tablet = 4 mg, By Mouth, Every 8 hours, PRN as needed for nausea/vomiting, # 12 tablet, 0 Refills, Maintenance, 12/21/20 18:04:00 EDT, Tablet, [id number], Partial fill upon patient request if the prescription is for a schedule II opioid drug... Start Date: 12/21/20 Status: Ordered Zofran 4 mg oral tablet 1 tablet = 4 mg, By Mouth, Every 8 hours, PRN as needed for nausea/vomiting, # 10 tablet, 0 Refills, Maintenance, 11/26/20 15:31:00 EDT, Tablet, [id number], Partial fill upon patient request if the prescription is for a schedule II opioid drug... Start Date: 11/26/20 Status: Ordered Vital Signs Most recent to oldest [Reference Range]: 1 2 3 Oxygen Saturation [94-100 %] 98 % (12/21/20 7:01 PM) 98 % (12/21/20 11:31 AM) Pulse Rate [55-90 bpm] 84 bpm (12/21/20 7:01 PM) 66 bpm (12/21/20 11:31 AM) Blood Pressure [90-138/55-84 mm Hg] 138/78mm Hg (12/21/20 7:01 PM) 135/94mm Hg (12/21/20 11:31 AM) Respiratory Rate [16-30 br/min] 16 br/min (12/21/20 7:01 PM) 16 br/min (12/21/20 5:56 PM) 16 br/min (12/21/20 4:56 PM) Temperature [96.8-100.4 DegF] 98.5 DegF (12/21/20 7:01 PM) 98.2 DegF (12/21/20 11:31 AM) Mode of Delivery (Oxygen) Room air (12/21/20 7:01 PM) Room air (12/21/20 11:31 AM) Blood pressure sites Arm, right (12/21/20 11:31 AM) Temperature Route Oral (12/21/20 7:01 PM) Oral (12/21/20 11:31 AM) Social History Social History Type Response Smoking Status Former smoker, quit more than 30 days ago; Other: Reports no current use. Previously reported 1/2 to 1 ppd.; entered on: 04/30/20 Sex
--- OUTSIDE RECORDS SUMMARY | 2022-08-10 02:13 | XMS_ITS | Continuity of Care Document ---
Author Name Unknown Organization [facility] ter Address [address] [place] [id number]- Care Team Providers Care Adult Specialist Name Role Phone Alexy Nguyen MD, Clotilde Lopez Primary Care Physici an [place] [facility] [place] Date(s): 04/10/21 - 04/10/[address] [address]- Encounter Diagnosis Hydrocele in adult(Final) - 04/10/21 Discharge Disposition: A-D/C Home Attending Physician: Zuri Smith MD Admitting Physician: Zuri Smith MD Referring Physician: Not on Staff, Referring [...] 0 Refills, Maintenance, 05/15/20 8:10:00 EST, Tablet, [facility]/pharmacy #[id number], Partial fill upon patient request, 180, cm, 05/14/20 23:58:00 EST, Height, 86.4, kg, ... Start Date: 05/15/20 Status: Ordered lisinopril 20 mg oral tablet 20 mg, 1, tablet, By Mouth, Daily, # 30 tablet, Refills 0, Tot. Refills 0, Maintenance, 09/16/20 11:18:00 EDT, Route to Pharmacy Electronically, [facility]/pharmacy #[id number], Partial fill upon patient request if the prescription is for a schedule II opioid drug... Start Date: 09/16/20 Status: Ordered melatonin 3 mg oral tablet 2 tablet = 6 mg, By Mouth, Daily at bedtime, for sleep, # 60 tablet, 1 Refills, Maintenance, 05/15/20 8:11:00 EST, Tablet, [facility]/pharmacy #[id number], Partial fill upon patient request, 180, cm, 05/14/20 23:58:00 EST, Height, 86.4, kg, 05/01/20 16:21:00 EST,... Start Date: 05/15/20 Status: Ordered naltrexone 50 mg oral tablet 1 tablet = 50 mg, By Mouth, Daily, for opiate dependence, # 30 tablet, 1 Refills, Maintenance, 03/12/20 9:34:00 EST, Tablet, [facility]/pharmacy #[id number], 180, cm, 03/12/20 9:29:00 EST, [...] 05/15/20 8:11:00 EST, Route to Pharmacy Electronically, [facility]/pharmacy #[id number], Partial fill upon patient r... Start Date: 05/15/20 Stop Date: 06/14/20 Status: Ordered prazosin 2 mg oral capsule 2 capsule = 4 mg, By Mouth, Daily at bedtime, take 2 capsule (=4 mg ) daily at bedtime for nightmares, # 60 capsule, 1 Refills, Maintenance, 03/12/20 9:29:00 EST, Capsule, [facility]/pharmacy #[id number], Partialfill upon patient request, 180, cm, 03/12/20 9:29:0... Start Date: 03/12/20 Status: Ordered prazosin 2 mg oral capsule 1 capsule = 2 mg, By Mouth, Daily at bedtime, # 30 capsule, 0 Refills, Maintenance, 05/16/20 9:14:00 EST, Capsule, [facility]/pharmacy #[id number], Total daily dose of 7 mg with 3 mg AM dose, 180, cm, 05/15/20 9:33:00 EST, Height, 86.4, kg, 05/01/20 16:21:00 EST,... Start Date: 05/16/20 Stop Date: 06/15/20 Status: Ordered selenium sulfide 2.25% topical shampoo See Instructions, Topically Every 72 hours, # 180 mL, 0 Refills, Maintenance, 05/15/20 8:17:00 EST,Shampoo, [facility]/pharmacy #[id number], Partial fill upon patient request if the prescription is for a schedule II opioid drug., Topically Every 72 hours, 180, cm... Start Date: 05/15/20 Status: Ordered SEROquel 200 mg oral tablet 500 mg, 2.5, tablet, By Mouth, Daily at bedtime, # 75 tablet, Refills 0, Tot. Refills 0, Maintenance, 05/15/20 8:13:00 EST, Route to Pharmacy Electronically, [facility]/pharmacy #[id number], Partial fill upon patient request [...] Refills, Maintenance, 11/26/20 15:31:00 EDT, Tablet, [facility]/pharmacy #[id number], Partial fill upon patient request if the prescription is for a schedule II opioid drug... Start Date: 11/26/20 Status: Ordered Vital Signs Most recent to oldest [Reference Range]: 1 2 Oxygen Saturation [94-100 %] 98 % (04/10/21 7:32 PM) 97 % (04/10/21 3:45 PM) Pulse Rate [55-90 bpm] 68 bpm (04/10/21 7:32 PM) 75 bpm (04/10/21 3:45 PM) Blood Pressure [90-138/55-84 mm Hg] 148/ 96mm Hg *H* (04/10/21 7:32 PM) 140/105mm Hg *H* (04/10/21 3:45 PM) Respiratory Rate [16-30 br/min] 18 br/mi n (04/10/21 7:32 PM) 18 br/min (04/10/21 3:45 PM) Temperature [96.8-100.4 DegF] 97.9 DegF (04/10/21 7:32 PM) 98.3 DegF (04/10/21 3:45 PM) Mode of Delivery (Oxygen) Room air (04/10/21 7:32 PM) Room air (04/10/21 3:45 PM) Blood pressure sites Arm, left (04/10/21 7:32 PM) Arm, right (04/10/21 3:45 PM) Temperature Route Oral (04/10/21 7:32 PM) Oral (04/10/21 3:45 PM) Social History Social History Type Response Smoking Status Former smoker, quit more than 30 days ago; Other: Reports no current use. Previously reported 1/2 to 1 ppd.; entered on: 04/30/20 Sex
--- OUTSIDE RECORDS SUMMARY | 2022-08-10 02:13 | XMS_ITS | Continuity of Care Document ---
Author Name Unknown Organization [facility] ter Address [address] [place] [id number]- Care Team Providers Care Die Filer Name Role Phone Alexy Nguyen MD, Clotilde Lopez Primary Care Physici an [place] [facility] [place] - 04/17/[address] [address]- Encounter Diagnosis Renal colic on right side(Final) - 04/17/21 Discharge Disposition: A-D/C Home Attending Physician: Nadege Swan MD Admitting Physician: Nadege Swan MD Referring Physician: Not on Staff, Referring [...] 0 Refills, Maintenance, 05/15/20 8:10:00 EST, Tablet, [facility]/pharmacy #[id number], Partial fill upon patient request, 180, cm, 05/14/20 23:58:00 EST, Height, 86.4, kg, ... Start Date: 05/15/20 Status: Ordered lisinopril 20 mg oral tablet 20 mg, 1, tablet, By Mouth, Daily, # 30 tablet, Refills 0, Tot. Refills 0, Maintenance, 09/16/20 11:18:00 EDT, Route to Pharmacy Electronically, [facility]/pharmacy #[id number], Partial fill upon patient request if the prescription is for a schedule II opioid drug... Start Date: 09/16/20 Status: Ordered melatonin 3 mg oral tablet 2 tablet = 6 mg, By Mouth, Daily at bedtime, for sleep, # 60 tablet, 1 Refills, Maintenance, 05/15/20 8:11:00 EST, Tablet, [facility]/pharmacy #[id number], Partial fill upon patient request, 180, cm, 05/14/20 23:58:00 EST, Height, 86.4, kg, 05/01/20 16:21:00 EST,... Start Date: 05/15/20 Status: Ordered morphine 15 mg oral tablet, immediate release 1 tablet = 15 mg, By Mouth, Every 4 hours, PRN for pain, # 12 tablet, 0 Refills, Acute 04/28/21 13:08:00 EST, 04/17/21 13:07:00 EST, Tablet, [facility]/pharmacy #[id number], Partial fill upon patient request if the prescription is for a schedule II opioid drug., 1... Start Date: 04/17/21 Stop Date: 04/28/21 Status: Ordered MorPHINE Inj 2 mg, Injection, IV Push Slowly, Every 5 minutes for 6 doses/times, PRN for Pain , Moderate, and SBP greater than 100, Routine, 04/17/21 11:03:00 EST, Stop date Limited # of times Start Date: 04/17/21 Stop Date: 04/17/21 Status: Discontinued naltrexone 50 mg oral tablet 1 tablet = 50 mg, By Mouth, Daily, for opiate dependence, # 30 tablet, 1 Refills, Maintenance, 03/12/20 9:34:00 EST, Tablet, [facility]/pharmacy #[id number], 180, cm, 03/12/20 9:29:00 EST, [...] 05/15/20 8:11:00 EST, Route to Pharmacy Electronically, [facility]/pharmacy #[id number], Partial fill upon patient r... Start Date: 05/15/20 Stop Date: 06/14/20 Status: Ordered prazosin 2 mg oral capsule 2 capsule = 4 mg, By Mouth, Daily at bedtime, take 2 capsule (=4 mg ) daily at bedtime for nightmares, # 60 capsule, 1 Refills, Maintenance, 03/12/20 9:29:00 EST, Capsule, [facility]/pharmacy #[id number], Partialfill upon patient request, 180, cm, 03/12/20 9:29:0... Start Date: 03/12/20 Status: Ordered prazosin 2 mg oral capsule 1 capsule = 2 mg, By Mouth, Daily at bedtime, # 30 capsule, 0 Refills, Maintenance, 05/16/20 9:14:00 EST, Capsule, [facility]/pharmacy #[id number], Total daily dose of 7 mg with 3 mg AM dose, 180, cm, 05/15/20 9:33:00 EST, Height, 86.4, kg, 05/01/20 16:21:00 EST,... Start Date: 05/16/20 Stop Date: 06/15/20 Status: Ordered selenium sulfide 2.25% topical shampoo See Instructions, Topically Every 72 hours, # 180 mL, 0 Refills, Maintenance, 05/15/20 8:17:00 EST,Shampoo, [facility]/pharmacy #[id number], Partial fill upon patient request [...] 04/17/21 13:07:00 EST, Route to Pharmacy Electronically, [facility]/pharmacy #[id number], Partial fill upon patient request [...] 3 Oxygen Saturation [94-100 %] 98 % (04/17/21 12:27 PM) 93 % *L* (04/17/21 10:29 AM) 97 % (04/17/21 9:36 AM) Pulse Rate [55-90 bpm] 68 bpm (04/17/21 12:27 PM) 65 bpm (04/17/21 10:29 AM) 64 bpm (04/17/21 9:36 AM) Blood Pressure [90-138/55-84 mm Hg] 158/96mm Hg *H* (04/17/21 12:27 PM) 178/97mm Hg *H* (04/17/21 10:29 AM) 167/114mm Hg *H* (04/17/21 9:36 AM) Respiratory Rate [16-30 br/min] 18 br/min (04/17/21 1:07 PM) 18 br/min (04/17/21 12:27 PM) 18 br/min (04/17/21 12:18 PM) Temperature [96.8-100.4 DegF] 98.2 DegF (04/17/21 9:19 AM) Mode of Delivery (Oxygen) Room air (04/17/21 12:27 PM) Room air (04/17/21 9:36 AM) Room air (04/17/21 9:19 AM) Blood pressure sites Arm, right (04/17/21 12:27 PM) Arm, left (04/17/21 9:36 AM) Arm, right (04/17/21 9:19 AM) Temperature Route Oral (04/17/21 9:36 AM) Oral (04/17/21 9:19 AM) Social History Social History Type Response Smoking Status Former smoker, quit more than 30 days ago; Other: Reports no current use. Previously reported 1/2 to 1 ppd.; entered on: 04/30/20 Sex
--- OUTSIDE RECORDS SUMMARY | 2022-08-10 02:13 | XMS_ITS | Continuity of Care Document ---
Author Name Unknown Organization [facility] ter Address [address] [place] [id number]- Care Team Providers Care [employer] Name Role Phone Alexy Nguyen MD, Clotilde Lopez Primary Care Physici an Encounter [facility] [place] Date(s): 01/01/21 - 01/01/[address] [address]- Discharge Disposition: A-D/C Walkout Attending Physician: Not [...] 0 Refills, Maintenance, 05/15/20 8:10:00 EST, Tablet, [facility]/pharmacy #[id number], Partial fill upon patient request, 180, cm, 05/14/20 23:58:00 EST, Height, 86.4, kg, ... Start Date: 05/15/20 Status: Ordered lisinopril 20 mg oral tablet 20 mg, 1, tablet, By Mouth, Daily, # 30 tablet, Refills 0, Tot. Refills 0, Maintenance, 09/16/20 11:18:00 EDT, Route to Pharmacy Electronically, [facility]/pharmacy #[id number], Partial fill upon patient request if the prescription is for a schedule II opioid drug... Start Date: 09/16/20 Status: Ordered melatonin 3 mg oral tablet 2 tablet = 6 mg, By Mouth, Daily at bedtime, for sleep, # 60 tablet, 1 Refills, Maintenance, 05/15/20 8:11:00 EST, Tablet, [facility]/pharmacy #[id number], Partial fill upon patient request, 180, cm, 05/14/20 23:58:00 EST, Height, 86.4, kg, 05/01/20 16:21:00 EST,... Start Date: 05/15/20 Status: Ordered naltrexone 50 mg oral tablet 1 tablet = 50 mg, By Mouth, Daily, for opiate dependence, # 30 tablet, 1 Refills, Maintenance, 03/12/20 9:34:00 EST, Tablet, [facility]/pharmacy #[id number], 180, cm, 03/12/20 9:29:00 EST, Height, [...] 05/15/20 8:11:00 EST, Route to Pharmacy Electronically, [facility]/pharmacy #[id number], Partial fill upon patient r... Start Date: 05/15/20 Stop Date: 06/14/20 Status: Ordered prazosin 2 mg oral capsule 2 capsule = 4 mg, By Mouth, Daily at bedtime, take 2 capsule (=4 mg ) daily at bedtime for nightmares, # 60 capsule, 1 Refills, Maintenance, 03/12/20 9:29:00 EST, Capsule, [facility]/pharmacy #[id number], Partialfill upon patient request, 180, cm, 03/12/20 9:29:0... Start Date: 03/12/20 Status: Ordered prazosin 2 mg oral capsule 1 capsule = 2 mg, By Mouth, Daily at bedtime, # 30 capsule, 0 Refills, Maintenance, 05/16/20 9:14:00 EST, Capsule, [facility]/pharmacy #[id number], Total daily dose of 7 mg with 3 mg AM dose, 180, cm, 05/15/20 9:33:00 EST, Height, 86.4, kg, 05/01/20 16:21:00 EST,... Start Date: 05/16/20 Stop Date: 06/15/20 Status: Ordered selenium sulfide 2.25% topical shampoo See Instructions, Topically Every 72 hours, # 180 mL, 0 Refills, Maintenance, 05/15/20 8:17:00 EST,Shampoo, [facility]/pharmacy #[id number], Partial fill upon patient request if the prescription is for a schedule II opioid drug., Topically Every 72 hours, 180, cm... Start Date: 05/15/20 Status: Ordered SEROquel 200 mg oral tablet 500 mg, 2.5, tablet, By Mouth, Daily at bedtime, # 75 tablet, Refills 0, Tot. Refills 0, Maintenance, 05/15/20 8:13:00 EST, Route to Pharmacy Electronically, [facility]/pharmacy #[id number], Partial fill upon patient request if the prescription is for a schedule I... Start Date: 05/15/20 Stop Date: 06/14/20 Status: Ordered SEROquel 25 mg oral tablet 50 mg, 2, tablet, By Mouth, 2 times a day, PRN, severe anxiety, insomnia, # 120 tablet, Refills 0, Tot. Refills 0, Maintenance, Other, 05/15/20 8:13:00 EST, Route to Pharmacy Electronically, [facility]/pharmacy #[id number], Partial fill upon patient request if [...] Range]: 1 2 Oxygen Saturation [94-100 %] 100 % (01/01/21 12:37 PM) 98 % (01/01/21 11:49 AM) Pulse Rate [55-90 bpm] 75 bpm (01/01/21 12:37 PM) 92 bpm *H* (01/01/21 11:49 AM) Blood Pressure [90-138/55-84 mm Hg] 110/ 76mm Hg (01/01/21 12:37 PM) Respiratory Rate [16-30 br/min] 18 br/mi n (01/01/21 12:37 PM) Temperature [96.8-100.4 DegF] 98.8 DegF (01/01/21 12:37 PM) Mode of Delivery (Oxygen) Room air (01/01/21 12:37 PM) Room air (01/01/21 11:49 AM) Temperature Route Oral (01/01/21 12:37 PM) Social History Social History Type Response Smoking Status Former smoker, quit more than 30 days ago; Other: Reports no current use. Previously reported 1/2 to 1 ppd.; entered on: 04/30/20 Sex
--- OUTSIDE RECORDS SUMMARY | 2022-08-10 02:13 | XMS_ITS | Continuity of Care Document ---
Author Name Unknown Organization [facility] ter Address [address] [place] [id number]- Care Team Providers Care Quarter Lining Smoother Name Role Phone Not on Staff, PCP Primary Care Physician Unavail able Encounter [facility] Date(s): 07/21/22 - 07/21/[address] [address]- Encounter Diagnosis Depression(Final) - 07/21/22 Discharge Disposition: Transfer to [facility] Facility Attending Physician: Elmer Kemp MD Admitting Physician: Elmer Kemp MD Referring Physician: Not on Staff, Referring MD Allergies, Adverse Reactions, Alerts Substance Reaction Severity Status Haldol 1 stiffness Unknown Active 1pt reports this is not an allergy and never was Immunizations Not Given Vaccine Date Status Refusal Reason influenza virus vaccine, inactivated 07/06/21 Not Given Patient Refuses influenza virus vaccine, inactivated 05/01/20 Not Given Patient Refuses pneumococcal 23-valent vaccine 05/01/20 Not Given Patient Refuses pneumococcal 23-valent vaccine 10/04/19 Not Given Patient Refuses Medications acetaminophen 325 mg oral tablet 975 mg, 3, tablet, By Mouth, Every 6 hours, PRN, # 360 tablet, Refills 1, Tot. Refills 1, Maintenance, Pain , Mild, 01/16/22 15:54:00 EDT, Route to Pharmacy Electronically, [facility]/pharmacy #[id number], Partial fill upon patient request if the prescription is f... Start Date: 01/16/22 Status: Ordered Ambien 5 mg oral tablet 2 tablet = 10 mg, By Mouth, Daily at bedtime, # 60 tablet, 1 Refills, Maintenance, 01/16/22 15:59:00 EDT, Tablet, [facility]/pharmacy #[id number], Partial fill upon patient request if the prescription is for a schedule II opioid drug., 178.5, cm, 01/16/22 11:40:00... Start Date: 01/16/22 Status: Ordered amLODIPine 10 mg oral tablet 1 tablet = 10 mg, By Mouth, Daily, # 30 tablet, 1 Refills, Maintenance, 01/16/22 15:54:00 EDT, Tablet, [facility]/pharmacy #[id number], Partial fill upon patient request if the prescription is for a schedule II opioid drug., 178.5, cm, 01/16/22 11:40:00 EDT, Heigh... Start Date: 01/16/22 Status: Ordered baclofen 10 mg oral tablet 10 mg, 1, tablet, By Mouth, 3 times a day, # 90 tablet, Refills 1, Tot. Refills 1, Maintenance, 01/16/22 15:55:00 EDT, Route to Pharmacy Electronically, [id number], Partial fill upon patient request if the prescription is for a schedule II opi... Start Date: 01/16/22 Status: Ordered bisacodyl 5 mg oral delayed release tablet = 10 mg, By Mouth, Daily, # 30 tablet, 1 Refills, Maintenance, 01/16/22 15:55:00 EDT, EC Tablet, [id number], Partial fill upon patient request if the prescription is for a schedule II opioid drug., 178.5, cm, 01/16/22 11:40:00 EDT, Height, 79.... Start Date: 01/16/22 Status: Ordered buPROPion 300 mg/24 hours (XL) oral tablet, extended release 1 tablet = 300 mg, By Mouth, Daily in AM, # 30 tablet, 1 Refills, Maintenance, 01/16/22 15:55:00 EDT, XL Tablet, [id number], Partial fill upon patient request if the prescription is for a schedule II opioid drug., 178.5, cm, 01/16/22 11:40:00... Start Date: 01/16/22 Status: Ordered busPIRone 10 mg oral tablet 20 mg, 2, tablet, By Mouth, 2 times a day, # 120 tablet, Refills 1, Tot. Refills 1, Maintenance, 01/16/22 15:55:00 EDT, Route to Pharmacy Electronically, [id number], Partial fill upon patientrequest if the prescription is for a schedule II op... Start Date: 01/16/22 Status: Ordered diclofenac 1% topical gel = 2 Gm, Topically, 4 times a day, PRN Pain , Mild, # 240 Gm, 1 Refills, Maintenance, 01/16/22 15:55:00 EDT, Gel, [facility]/pharmacy #[id number], Partial fill upon patient request if the prescription is for a schedule II opioid drug., 178.5, cm, 01/16/22 11:40:00... Start Date: 01/16/22 Status: Ordered famotidine 20 mg oral tablet 20 mg, 1, tablet, By Mouth, Daily at bedtime, # 30 tablet, Refills 1, Tot. Refills 1, Maintenance, 01/16/22 15:56:00 EDT, Route to Pharmacy Electronically, [facility]/pharmacy #[id number], Partial fill upon patient request if the prescription is for a schedule II... Start Date: 01/16/22 Status: Ordered hydrOXYzine pamoate 100 mg oral capsule = 100 mg, By Mouth, 2 times a day, PRN Anxiety, # 60 tablet, 1 Refills, Maintenance, 01/16/22 15:56:00 EDT, Capsule, [facility]/pharmacy #[id number], Partial fill upon patient request if the prescription is for aschedule II opioid drug., 178.5, cm, 01/16/22 11:40... Start Date: 01/16/22 Status: Ordered ibuprofen 600 mg oral tablet 600 mg, 1, tablet, By Mouth, 3 times a day, PRN, # 90 tablet, Refills 1, Tot. Refills 1, Maintenance, Pain , Mild, 01/16/22 15:56:00 EDT, Route to Pharmacy Electronically, [facility]/pharmacy #[id number], Partialfill upon patient request if the prescription is fo... Start Date: 01/16/22 Status: Ordered lidocaine 5% topical film 1 applicator, Topically, Daily, PRN Pain , Mild, # 30 patch, 1 Refills, Maintenance, 01/16/22 15:56:00 EDT, Patch, [facility]/pharmacy #[id number], Partial fill upon patient request if the prescription is for a schedule II opioid drug., 1 applicator Topically Rashmi... Start Date: 01/16/22 Status: Ordered methylphenidate 54 mg oral tablet, extended release 1 tablet = 54 mg, By Mouth, Daily in AM, # 30 tablet, 0 Refills, Maintenance, 01/16/22 15:57:00 EDT, ER Tablet, [facility]/pharmacy #[id number], Partial fill upon patient request if the prescription is for a schedule II opioid drug., 178.5, cm, 01/16/22 11:40:00 E... Start Date: 01/16/22 Status: Ordered mirtazapine 15 mg oral tablet 3 tablet = 45 mg, By Mouth, Daily at bedtime, # 90 tablet, 1 Refills, Maintenance, 01/16/22 15:57:00 EDT, Tablet, [facility]/pharmacy #[id number], Partial fill upon patient request if the prescription is for a schedule II opioid drug., 178.5, cm, 01/16/22 11:40:00... Start Date: 01/16/22 Status: Ordered naltrexone 50 mg oral tablet 1 tablet = 50 mg, By Mouth, Daily in AM, # 30 tablet, 1 Refills, Maintenance, 01/16/22 15:57:00 EDT, Tablet, [facility]/pharmacy #[id number], Partial fill upon patient request if the prescription is for a schedule II opioid drug., 178.5, cm, 01/16/22 11:40:00 EDT,... Start Date: 01/16/22 Status: Ordered nicotine 2 mg oral transmucosal gum = 2 mg, Chew, Every 3 hours, PRN Other, cigarette craving, # 160 each, 1 Refills, Maintenance, 01/16/22 15:57:00 EDT, Gum, [facility]/pharmacy #[id number], Partial fill upon patient request if the prescription isfor a schedule II opioid drug., 178.5, cm, 01/16/22... Start Date: 01/16/22 Status: Ordered Nicotine 7 mg/24 hour patch 1 patch, Topically, Daily, # 30 patch, 1 Refills, Maintenance, 01/16/22 15:57:00 EDT, Patch, [facility]/pharmacy #[id number], Partial fill upon patient request if the prescription is for a schedule II opioid drug., 1 patch Topically Daily, 178.5 cm, 01/16/22 11:4... Start Date: 01/16/22 Status: Ordered oxyCODONE 5 mg oral tablet 2.5 mg, Tablet, By Mouth, Every 6 hours, PRN for Pain , Moderate, Routine, 07/21/22 18:21:00 EDT Start Date: 07/21/22 Stop Date: 07/28/22 Status: Ordered prazosin 1 mg oral capsule 3 mg, 3, capsule, By Mouth, Daily at bedtime, # 90 capsule, Refills 1, Tot. Refills 1, Maintenance,01/16/22 15:58:00 EDT, Route to Pharmacy Electronically, [id number], Partial fill upon patient request if the prescription is for a schedule II... Start Date: 01/16/22 Status: Ordered selenium sulfide 2.25% topical shampoo See Instructions, Topically Every 72 hours, # 180 mL, 1 Refills, Maintenance, 01/16/22 15:59:00 EDT, Shampoo, [id number], Partial fill upon patient request if the prescription is for a schedule II opioid drug., Topically Every 72 hours, 178.5,... Start Date: 01/16/22 Status: Ordered Senna 8.6 mg oral tablet 17.2 mg, 2, tablet, By Mouth, 2 times a day, # 120 tablet, Refills 1, Tot. Refills 1, Maintenance, 01/16/22 15:59:00 EDT, Route to Pharmacy Electronically, [id number] Tablet, Partial fill upon patient request if the prescription is for a sched... Start Date: 01/16/22 Status: Ordered SEROquel 200 mg oral tablet 200 mg, 1, tablet, By Mouth, 2 times a day, PRN, # 60 tablet, Refills 1, Tot. Refills 1, Maintenance, Anxiety, 01/16/22 15:58:00 EDT, Route to Pharmacy Electronically, [id number], Partial fill upon patient request if the prescription is for a... Start Date: 01/16/22 Status: Ordered tamsulosin 0.4 mg oral capsule 0.4 mg, 1, capsule, By Mouth, Daily, # 30 capsule, Refills 1, Tot. Refills 1, Maintenance, 01/16/2215:59:00 EDT, Route to Pharmacy Electronically, [id number], Partial fill upon patient request if the prescription is for a schedule II opioid d... Start Date: 01/16/22 Status: Ordered thiamine 100 mg oral tablet 100 mg, 1, tablet, By Mouth, Daily, # 30 tablet, Refills 1, Tot. Refills 1, Maintenance, 01/16/22 15:59:00 EDT, Route to Pharmacy Electronically, [facility]/pharmacy #[id number], Partial fill upon patient requestif the prescription is for a schedule II opioid cecilia... Start Date: 01/16/22 Status: Ordered traZODone 50 mg oral tablet 100 mg, 2, tablet, By Mouth, Daily at bedtime, # 60 tablet, Refills 1, Tot. Refills 1, Maintenance,01/16/22 15:59:00 EDT, Route to Pharmacy Electronically, [facility]/pharmacy #[id number], Partial fill upon patient request if the prescription is for a schedule II... Start Date: 01/16/22 Status: Ordered Problem List Condition Confirmation Course Effective Dates Status H ealth Status Informant BPH without obstruction/lower urinary tract symptoms Confirmed Active Hypertension Confirmed Active Major depression Confirmed Active Polysubstance abuse Confirmed Active Major depressive disorder, recurrent episode, severe, with psychotic behavior Confirmed Active Hepatitis C Confirmed Active Results Radiology Reports * Exam Date Time Procedure Performing Provider Status 07/21/22 4:[address] Abd/Pelvis W/ IV Contrast Only Anila Cantu; Simba (Verified) Notes: (CT Abd/Pelvis W/ IV Contrast Only) Reason For Exam: RLQ abdominal pain;Other: RESULT: CT Abd/Pelvis W/ IV Contrast Only CT Abd/Pelvis W/ IV Contrast Only INDICATION: RLQ abdominal pain; Clinical Question(s): Appendicitis TECHNIQUE: Spiral CT through the abdomen and pelvis with IV contrast formatted in 3 planes. 75 cc of Omnipaque 300 was administered intravenously. This study was performed without oral contrast. Weight-based protocol using automatic tube modulation was used to optimize exposure parameters. CTDIvol Body: 13.30 mGy, DLP Body: 727 mGy*cm. COMPARISON: 01/02/2022 FINDINGS: Char Conveyor Tender Cellar View Findings, Lines and Tubes: None. Visualized Chest: Lung bases are clear. No pleural effusion. The heart is normal in size. No pericardial effusion. Diaphragm: Normal. Liver: Normal. Gallbladder: No CT evidence of gallbladder pathology. Bile ducts: No biliary ductal dilation. Spleen: Normal. Pancreas: Normal. Adrenal glands: Normal. Kidneys and ureters: Small bilateral nonobstructing renal calculi. No hydronephrosis. No suspiciousmass. No ureteral calculi. Bladder: Normal. Reproductive organs: Unremarkable. Stomach, small bowel, and large bowel: There is mild colonic diverticulosis without evidence of acute diverticulitis. Appendix: Normal. Peritoneum and retroperitoneum: No ascites or pneumoperitoneum. No omental or mesenteric lesions. Lymph nodes: No enlarged lymph nodes. Blood vessels: Normal. No aneurysm. No evidence of venous thrombosis. Abdominal and pelvic wall: Unremarkable. Bones: No acute abnormality. Disc space narrowing at L5-S1. Mild right hip osteoarthritis. IMPRESSION: 1. No evidence of acute appendicitis or other acute abnormality. 2. Small nonobstructing bilateral renal calculi. 3. Mild colonic diverticulosis. No evidence of acute diverticulitis. WSN: [id number] Ordering Physician: Alexandrea Almonte Dictated By: Alejandro George MD Dictated Date/Time: 07/21/22 4:58 pm Reviewed By: Alejandro George MD Signed By: Alejandro George MD Signed Date/Time: 07/21/22 4:58 pm Transcribed By: JOSHUA Transcribed Date/Time: 07/21/22 4:55 pm Vital Signs Most recent to oldest [Reference Range]: 1 2 3 Oxygen Saturation [94-100 %] 98 % (07/21/22 10:22 PM) 97 % (07/21/22 6:47 PM) 99 % (07/21/22 4:53 PM) Pulse Rate [55-90 bpm] 60 bpm (07/21/22 10:22 PM) 65 bpm (07/21/22 6:47 PM) 69 bpm (07/21/22 4:53 PM) Blood Pressure [90-138/55-84 mm Hg] 149/97mm Hg *H* (07/21/22 10:22 PM) 148/91mm Hg *H* (07/21/22 6:47 PM) 162/99mm Hg *H* (07/21/22 4:53 PM) Respiratory Rate [16-30 br/min] 18 br/min (07/21/22 10:22 PM) 20 br/min (07/21/22 10:08 PM) 15 br/min *L* (07/21/22 6:47 PM) Temperature [96.8-100.4 DegF] 98.5 DegF (07/21/22 10:22 PM) 98.6 DegF (07/21/22 1:32 PM) Mode of Delivery (Oxygen) Room air (07/21/22 10:22 PM) Room air (07/21/22 6:47 PM) Room air (07/21/22 4:53 PM) Temperature Route Oral (07/21/22 10:22 PM) Oral (07/21/22 1:32 PM) Social History Social History Type Response Smoking Status 10 or more cigarette s (1/2 pack or more)/day in last 30 days; Interested in cessation: Yes; Patient wants NRT during admission Yes entered on: 10/28/[address] Abdomen and Pelvis W contrast IV * [facility] , CIS S: TRANSCRIBE Ariel GALVEZ, Alejandro S: VERIFY Event Display: Result: Authored Date: [id number] CT Abd/Pelvis W/ IV Contrast Only INDICATION: RLQ abdominal pain; Clinical Question(s): Appendicitis TECHNIQUE: Spiral CT through the abdomen and pelvis with IV contrast formatted in 3 planes. 75 cc of Omnipaque 300 was administered intravenously. This study was performed without oral contrast. Weight-based protocol using automatic tube modulation was used to optimize exposure parameters. CTDIvol Body: 13.30 mGy, DLP Body: 727 mGy*cm. COMPARISON: 01/02/2022 FINDINGS: Char Conveyor Tender Cellar View Findings, Lines and Tubes: None. Visualized Chest: Lung bases are clear. No pleural effusion. The heart is normal in size. No pericardial effusion. Diaphragm: Normal. Liver: Normal. Gallbladder: No CT evidence of gallbladder pathology. Bile ducts: No biliary ductal dilation. Spleen: Normal. Pancreas: Normal. Adrenal glands: Normal. Kidneys and ureters: Small bilateral nonobstructing renal calculi. No hydronephrosis. No suspiciousmass. No ureteral calculi. Bladder: Normal. Reproductive organs: Unremarkable. Stomach, small bowel, and large bowel: There is mild colonic diverticulosis without evidence of acute diverticulitis. Appendix: Normal. Peritoneum and retroperitoneum: No ascites or pneumoperitoneum. No omental or mesenteric lesions. Lymph nodes: No enlarged lymph nodes. Blood vessels: Normal. No aneurysm. No evidence of venous thrombosis. Abdominal and pelvic wall: Unremarkable. Bones: No acute abnormality. Disc space narrowing at L5-S1. Mild right hip osteoarthritis. IMPRESSION: 1. No evidence of acute appendicitis or other acute abnormality. 2. Small nonobstructing bilateral renal calculi. 3. Mild colonic diverticulosis. No evidence of acute diverticulitis. WSN: [id number] Ordering Physician: Alexandrea Almonte Dictated By: Alejandro George MD Dictated Date/Time: 07/21/22 4:58 pm Reviewed By: Alejandro George MD Signed By: Alejandro Goerge MD Signed Date/Time: 07/21/22 4:58 pm Transcribed By: JOSHUA Transcribed Date/Time: 07/21/22 4:55 pm Patient Care team information Care Team Personnel Name: Marques Mullen RN Position: [facility] RN Member Role: Primary Care Nurse Name: Sylvia Culver RN Position: [facility] RN Supv Member Role: Primary Care Nurse Name: Elie Garner Position: [facility] RN Supv Member Role: Primary Care Nurse Name: Maria Esther Fair RN Position: [facility] SN RN Member Role: Primary Care Nurse Name: Deonte Morfin RN Position: [facility] RN Member Role: Primary Care Nurse Name: Carline Quintana RN Position: [facility] RN Member Role: Primary Care Nurse Name: Marilyn Manuel RN Position: [facility] RN Member Role: Primary Care Nurse Name: Jyoti Doss RN Position: [facility] RN Member Role: Primary Care Nurse Name: Nadege Boykin RN Position: [facility] RN Member Role: Primary Care Nurse Name: Sara Gonzalez RN Position: [facility] RN Member Role: Primary Care Nurse Name: Edgardo Nolasco RN Position: [facility] RN Member Role: Primary Care Nurse Name: Katina Francisco RN Position: [facility] SN RN Member Role: Primary Care Nurse Name: Ana Traore RN Position: [facility] RN Member Role: Primary Care Nurse Name: Brandy Bronson RN Position: [facility] RN Member Role: Primary Care Nurse Name: Cornelia Marquez RN Position: [facility] RN Member Role: Primary Care Nurse Name: Raleigh Jackson RN Position: [facility] RN Member Role: Primary Care Nurse Name: Suzie Mullins RN Position: [facility] RN Member Role: Primary Care Nurse Name: Radha Beverly RN Position: [facility] ED RN W/OE and Tasks Member Role: Primary Care Nurse Name: Not on Staff, PCP Position: [facility] Physician (General Medicine) Member Role: PCP Name: Maria Esther Quintero RN Position: [facility] RN Member Role: Primary Care Nurse Name: Kathie Bennett RN Position: [facility] RN Member Role: Primary Care Nurse Name: Ani Malhotra RN Position: [facility] RN Member Role: Primary Care Nurse Name: Мария Pascual RN Position: [facility] Hospital [place] Floor Service Worker Member Role: Primary Care Nurse Name: Yandel Beatty RN Position: [facility] RN Member Role: Primary Care Nurse Name: Falguni Allen RN Position: [facility] RN Supv Member Role: Primary Care Nurse Name: Kusum Villa RN Position: [facility] SN RN Member Role: Primary Care Nurse Name: Sharif Umana RN Position: [facility] ED RN W/OE and Tasks Member Role: Primary Care Nurse Name: Zena Awan RN Position: [facility] RN Member Role: Primary Care Nurse Name: Elvira Mendoza RN Position: [facility] RN Member Role: Primary Care Nurse Name: Elmer Kemp MD Position: [facility] Resident Member Role: Admitting Physician Address: Address: [address] [place] [address] Name: Mary Peña Position: [facility] ED [facility] Member Role: Transporter Radiology Name: Whit Christian MD Position: [facility] Resident Member Role: ED Resident Address: Address: [address] [place] [address] Name: Adrián Quintero Position: [facility] ED RN W/OE and Tasks Member Role: Patient Care Provider Care Team Related Persons Name: PARISH ALEMAN Address: [place] [address]
[2022-08-10] MEDS: Sodium Bicarbonate 8.4% 150 MEQ in Dextrose 5 % 850 ML 100 MEQ IV (02:21)
[2022-08-10] MEDS: Lidocaine HCl 2 % Urojet 10 ML JEL.PF.APP TOPICAL (02:29)
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
[2022-08-10 02:56] LABS: Appearance Urine Cloudy; Color Urine Yellow; Glucose Urine UA 250 mg/dL (Negative); Leukocyte Esterase Urine Trace (Negative); Nitrite Urine Negative (Negative); Specific Gravity - Urine 1.015 (1.005-1.025); UMIC TRIGGER UACC YES; Urine Blood Small (1+) (Negative); Urine Ketones Negative (Negative); Urine Protein 100 (2+) mg/dL (Neg-Trace)
[2022-08-10 02:59] LABS: ABG Refer to POC result
--- NOTE | 2022-08-10 03:01 | PC.NURSE ---
16F, temp sensing Ortiz cath placed, 150mL of dark yellow urine draining. Pt tolerated well.
[2022-08-10 03:05] LABS: Bacteria Urine None Seen (None Seen); Epith (RTE) Cast Present; Hyaline Casts Urine 0-2 /LPF (0-2); Other Crystals Urine Present; Squamous Epithelial Cell Urine 0-2 /HPF (0-2); WBC Urine 0-5 /HPF (0-5)
[2022-08-10 03:07] LABS: Amphetamine Screen Urine Not Detected (Not Detect); Barbiturates, Urine Not Detected (Not Detect); Benzodiazepines Screen Urine Not Detected (Not Detect); Cannabinoid Screen Urine Not Detected (Not Detect); Cocaine Screen Urine POSITIVE (Not Detect); Fentanyl, urine POSITIVE (Not Detect); Opiate Screen Urine POSITIVE (Not Detect); Phencyclidine Screen Urine Not Detected (Not Detect)
--- NOTE | 2022-08-10 03:13 | PC.NURSE ---
Pt brought to room 254, bedside report given to Candy KYLE. Pt able to ambulate to bed.
[2022-08-10] MEDS: Dextrose 5 % and 0.45 % NaCl 1,000 ML 125 ML IVCONT ×2 (04:05→07:12)
--- NOTE | 2022-08-10 04:07 | W.PM.CCHP ---
Procedures Date of Service Date of Service: 08/10/22 Central Line Placement Right IJ: Central Line Comments: Verbal consent from the patient was obtained after explaining risks and benefits of the procedures, patient agreed. A quick time-out was made for clarification and proper patient identification, patient was positioned, landmarks were identified, US used to locate a? large compressible IJ.? The right neck was widely prepped and draped in a full sterile fashion.? Ultrasound was used to locate again the right IJ, the vein was cannulated on the 1st pass with an 18 gauge thin needle, dark nonpulsatile blood return was obtained.? The wire was threaded, a small incision was made at its base and dilator inserted.? A triple-lumen 16 cm central venous catheter was advanced into the vein up to the hub without problems, wired was removed. Ports had? good blood return and flushed x3.? The catheter was secured with 3 sutures at 3 sites, a Biopatch and dry sterile dressing were applied. Post procedure chest x-ray showed the line to be in good position without pneumothorax.? No bleeding or complications noted.
[2022-08-10 04:25] LABS: VBG HCO3 23 mmol/L (22-26); VBG pCO2 33 mmHg; VBG pH 7.45 (7.32-7.43); VBG pO2 59 mmHg
[2022-08-10 04:32] LABS: Hematocrit 37.9 % (42.0-52.0); Mean Corpuscular Volume 80.5 fL (80.0-98.0); Mean Platelet Volume 10.6 fL (9.4-12.4); Platelet Count 273 X10*3/uL (160-400); Red Blood Count 4.71 X10*6/uL (4.60-5.80); Red Cell Distribution Width 13.3 % (11.0-16.0); WBC ABN SCTR FOR CBC 1
[2022-08-10] MEDS: hydrALAZINE HCl 20 MG/ML VIAL 5 MG IVPUSH (04:32)
[2022-08-10] MEDS: Piperacillin Sodium/Tazobactam 2.25 GM in 0.9 % Sodium Chloride 50 ML IV ×4 (04:32→20:41)
[2022-08-10 04:41] LABS: Hemoglobin 12.7 g/dl (14.0-18.0); Mean Corpuscular HGB Conc 33.6 g/dl (31.0-36.0); White Blood Count 28.5 X10*3/uL (4.8-10.8)
[2022-08-10 04:55] LABS: Band Neutrophils Percent 11 % (3-5); Lymphocytes Absolute Manual 0.9 X10*3/uL (1.2-4.9); Lymphocytes Percent Manual 3 % (20-40); Monocytes Absolute Manual 4.6 X10*3/uL (0.1-1.2); Monocytes Percent Manual 16 % (2-11); Neutrophils Absolute Manual 23.1 X10*3/uL (2.0-8.3); Neutrophils Percent Manual 70 % (45-73)
[2022-08-10 04:57] LABS: Dohle Bodies PRESENT; Platelet Estimate NORMAL (NORMAL); Platelet Morphology Comment NORMAL; RBC Morphology NORMAL; Toxic Granulation PRESENT
[2022-08-10 04:59] LABS: Alanine Aminotransferase 75 U/L (0-40); Alkaline Phosphatase 96 U/L (39-117); Anion Gap 33 (12-20); Aspartate Amino Transferase 77 U/L (5-37); C Reactive Protein 25.65 mg/dL (< or = 0.50); Calcium 8.8 mg/dL (8.4-10.2); Carbon Dioxide 24 mmol/L (22-29); Chloride 78 mmol/L (96-108); Creatinine Clr Calc Pharmacy 6.3; Estimated Glomerular Filt Rate 5; Glucose Random 87 mg/dL (60-115); Lipase 167 U/L (8-78); Magnesium 2.7 mg/dL (1.6-2.6); Phosphorus 7.7 mg/dL (2.7-4.5); Potassium 5.5 mmol/L (3.3-5.1); Sodium 129 mmol/L (135-145); Total Protein 5.7 g/dL (6.5-8.0)
[2022-08-10 05:12] LABS: Blood Urea Nitrogen 207 mg/dL (9-16)
[2022-08-10] MEDS: Insulin Regular, Human 100 UNIT/ML 3 ML VIAL 10 UNIT IVPUSH (05:31)
[2022-08-10] MEDS: Pantoprazole Sodium 40 MG/10 ML VIAL IVPUSH (06:03)
[2022-08-10] MEDS: Albuterol Sulfate (0.083%) 2.5 MG/3 ML VIAL.NEB 10 MG INHALE (06:21)
--- NOTE | 2022-08-10 07:00 | CA_ITS ---
Transthoracic Echocardiogram Patient (Last, First, Middle): Brian Lu, Gender: Male Date of : 1975 Age: 47 Procedure Date: 08/10/2022 Procedure Type: Transthoracic Echocardiogram Location: ICU Height: 175.26 cm Weight: 54.43 kg BSA: 1.66 m2 Heart Rate: bpm BP: 151 / 81 mmHg Telephone Operator: Referring MD: Jacobo LEBLANC Symptoms: wbc IVDA ? jagdish francisco Study Quality: Good ECG Rhythm: Sinus Conclusions: - The left ventricular systolic function is hyperdynamic. The visually estimated ejection fraction is >70%. - No obvious valvular pathology seen on this study. - Mild pulmonary hypertension is present. Findings Left Ventricle Normal left ventricular cavity size. There is mildly increased left ventricular wall thickness. The left ventricular systolic function is hyperdynamic. The visually estimated ejection fraction is >70%. There is no evidence of regional wall motion abnormalities. Diastolic function is normal for age. Right Ventricle Normal right ventricular cavity size and systolic function. Atria Both atria are normal in size. Possibly central line catheter noted in right atrium. Aortic Valve There is a normal trileaflet aortic valve. There is no aortic valve stenosis. There is no aortic valve regurgitation. Mitral Valve The mitral valve appears normal. There is trace mitral valve regurgitation. There is no mitral valve stenosis. Pulmonic Valve The pulmonic valve is likely normal. Tricuspid Valve There is trace tricuspid valve regurgitation. Mild pulmonary hypertension is present. Great Vessels The asc aorta is normal in size. Venous The inferior vena cava is normal in size and collapses greater than 50% with inspiration. Pericardium/Pleural There is no evidence of pericardial effusion. Prior Study Comparison No significant change compared to prior study dated: 11/22/2018. Recommendations, Care & Conclusions No obvious valvular pathology seen on this study. Measurements 2D Linear Measurements IVSd: 1.30 0.6-0.9/0.6-1.0 cm LVIDd: 4.63 3.9-5.3/4.2-5.9 cm LVIDd Index: 2.79 2.4-3.2/2.2-3.1 cm/m2 LVIDs: 2.67 2.0-3.6 cm LVPWd: 1.30 0.7-1.1 cm Ao Root: 3.50 2.1-3.5 cm LA Diam: 3.90 2.7-3.8/3.0-4.0 cm LAIDs Index: 2.35 1.5-2.3 cm/m2 LV Mass: 289.83 67-162/88-224 g LV Mass Index: 174.59 43-95/49-115 g/m2 LVOT Diam: 2.40 3.0+(-)1.3 cm 2D Systolic Function EF 4C: 64.00 >55% EF 2C: 81.90 >55% EF BiP: 74.70 >55% Mitral Valve MV Pk E: 0.66 MV PK A: 0.87 MV Decel Time: 291.00 E/A: 0.80 E'Lateral: 6.42 E'Medial: 7.07 E/E' Med: 9.30 E/E' Lat: 10.20 PHT: 85.00 MVA PHT: 2.59 Decel [place]: 2.25 Aortic Valve AoV Pk Cristiano: 2.32 AoV Mn Cristiano: 1.59 AoV VTI: 0.38 AoV Pk Grad: 22.00 Aov Mn Grad: 12.00 BRITTON Cont.VTI: 3.00 LVOT LVOT Pk Cristiano: 1.45 LVOT Mn Cristiano: 0.86 LVOT VTI: 0.25 LVOT Pk Grad: 8.00 LVOT Mn Grad: 4.00 LVOT Diam: 2.40 LVOT Area: 4.52 Diastolic Function MV Pk E: 0.66 MV Pk A: 0.87 E/A: 0.80 E'Medial: 7.07 E/E' Med: 9.30 E' Laterial: 6.42 E/E' Lat: 10.20 Right Ventricle TAPSE (mm): 27.00 TVS' Cristiano: 24.00 Tricuspid Valve TR Pk Cristiano: 2.93 TR Pk Grad: 34.00 RA Press: 3.00 RVSP: 38.00 Great Vessels Aorta Ao Root-2D: 3.50 2.0-3.7 cm Ao Asc: 3.20 2.1-3.4 cm Pulmonary Valve PV Pk Cristiano: 1.74 Peak PV Grad: 12.00 Updated in Other Vendor System with Status of Final Umair Redding MD electronically signed on 08/10/2022 11:47:22 AM with status of Final
[2022-08-10] MEDS: vancomycin HCL 1,000 MG in 0.9 % Sodium Chloride 250 ML 270 MG IV (07:13)
[2022-08-10 08:01] LABS: Potassium Urine Random 56.1 mmol/L
[2022-08-10 08:21] LABS: Osmolality, Serum 335 mosm/kg (281-305)
[2022-08-10] MEDS: Lactated Ringers 1,000 ML 100 ML IVCONT ×3 (08:42→23:40)
[2022-08-10] MEDS: amLODIPine Besylate 10 MG TABLET PO (08:42)
[2022-08-10] MEDS: Heparin Sodium,Porcine 5,000 UNIT/ML VIAL 5000 UNIT SUBCUT ×2 (08:42→20:42)
--- NOTE | 2022-08-10 09:05 | PC.NURSE ---
Pt awake, alert, eating breakfast. Medication administered per EMAR. Patient reporting 8/10 generalized pain. Patient refusing commercial account officer stating just leave me alone . Pt educated on importance of physical and subjective assessment. Patient not responding at this time. MD aware.
[2022-08-10 09:09] LABS: Acetone NONE DETECTED (NONE DETECTED); Analysis performed on: WHOLE BLOOD; Ethyl Alcohol g/dL (%) NONE DETECTED g/dL(%) (NONE DETECTED); Ethyl Alcohol mg/dL NONE DETECTED (NONE DETECTED); Isopropanol NONE DETECTED (NONE DETECTED)
[2022-08-10] MEDS: Nicotine 14 MG PATCH.TD24 TRANSDERMA (10:18)
[2022-08-10 10:23] LABS: Ethylene Glycol NONE DETECTED (NONE DETECTED)
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
[2022-08-10] MEDS: fentaNYL citrate/PF 100 MCG/2 ML VIAL 50 MCG IVPUSH ×4 (12:36→21:49)
[2022-08-10] MEDS: ondansetron HCL 4 MG/2 ML VIAL IVPUSH ×2 (12:37→21:49)
[2022-08-10 14:29] LABS: Anion Gap 28 (12-20); Calcium 7.2 mg/dL (8.4-10.2); Carbon Dioxide 21 mmol/L (22-29); Chloride 83 mmol/L (96-108); Creatinine Clr Calc Pharmacy 8.5; Estimated Glomerular Filt Rate 5; Glucose Random 130 mg/dL (60-115); Potassium 5.1 mmol/L (3.3-5.1); Sodium 127 mmol/L (135-145)
[2022-08-10 14:40] LABS: Blood Urea Nitrogen 201 mg/dL (9-16)
[2022-08-10] MEDS: Midazolam HCl/PF 2 MG/2 ML VIAL 1 MG IVPUSH ×2 (16:16→20:42)
[2022-08-10 21:37] LABS: Anion Gap 28 (12-20); Calcium 7.2 mg/dL (8.4-10.2); Carbon Dioxide 19 mmol/L (22-29); Chloride 85 mmol/L (96-108); Creatinine Clr Calc Pharmacy 8.6; Estimated Glomerular Filt Rate 5; Glucose Random 115 mg/dL (60-115); Potassium 5.1 mmol/L (3.3-5.1); Sodium 127 mmol/L (135-145)
[2022-08-10 21:59] LABS: Blood Urea Nitrogen 201 mg/dL (9-16)
[2022-08-11] VITALS (14 sets, daily range): BP systolic 128–164; BP diastolic 69–93; PULSE 70–89; RESP 18–21; TEMP 36.3–37.3; O2SAT 94–98; BMI 25.7
[2022-08-11] MEDS: fentaNYL citrate/PF 100 MCG/2 ML VIAL 50 MCG IVPUSH (01:14)
[2022-08-11] MEDS: Piperacillin Sodium/Tazobactam 2.25 GM in 0.9 % Sodium Chloride 50 ML IV ×4 (02:25→22:55)
[2022-08-11] MEDS: Midazolam HCl/PF 2 MG/2 ML VIAL 1 MG IVPUSH (02:27)
[2022-08-11 05:05] LABS: VBG Base Excess 0.4 mmol/L; VBG HCO3 23 mmol/L (22-26); VBG pCO2 34 mmHg; VBG pH 7.44 (7.32-7.43); VBG pO2 56 mmHg
[2022-08-11 05:08] LABS: Venous Blood Gas Refer to POC result
[2022-08-11 05:19] LABS: Hematocrit 35.6 % (42.0-52.0); Hemoglobin 13.2 g/dl (14.0-18.0); Mean Corpuscular HGB Conc 37.1 g/dl (31.0-36.0); Mean Corpuscular Hemoglobin 29.9 pg (27.0-33.0); Mean Corpuscular Volume 80.7 fL (80.0-98.0); Platelet Count 241 X10*3/uL (160-400); Red Blood Count 4.41 X10*6/uL (4.60-5.80); Red Cell Distribution Width 13.5 % (11.0-16.0); WBC ABN SCTR FOR CBC 1
[2022-08-11 05:20] LABS: White Blood Count 29.2 X10*3/uL (4.8-10.8)
[2022-08-11 05:26] LABS: Venous Blood Gas Refer to POC result
[2022-08-11 05:52] LABS: Alanine Aminotransferase 63 U/L (0-40); Albumin Level 2.6 g/dL (3.5-5.0); Alkaline Phosphatase 90 U/L (39-117); Anion Gap 26 (12-20); Aspartate Amino Transferase 58 U/L (5-37); Bilirubin Total 0.8 mg/dL (0.0-1.0); Calcium 7.3 mg/dL (8.4-10.2); Carbon Dioxide 23 mmol/L (22-29); Chloride 85 mmol/L (96-108); Glucose Random 108 mg/dL (60-115); Magnesium 2.4 mg/dL (1.6-2.6); Phosphorus 6.3 mg/dL (2.7-4.5); Sodium 129 mmol/L (135-145)
[2022-08-11] MEDS: Pantoprazole Sodium 40 MG/10 ML VIAL IVPUSH (05:56)
[2022-08-11 06:04] LABS: Blood Urea Nitrogen 194 mg/dL (9-16); Creatinine Clr Calc Pharmacy 8.4; Estimated Glomerular Filt Rate 5
[2022-08-11 06:09] LABS: Band Neutrophils Percent 4 % (3-5); Lymphocytes Absolute Manual 0.9 X10*3/uL (1.2-4.9); Lymphocytes Percent Manual 3 % (20-40); Monocytes Absolute Manual 0.6 X10*3/uL (0.1-1.2); Monocytes Percent Manual 2 % (2-11); Neutrophils Absolute Manual 27.7 X10*3/uL (2.0-8.3); Neutrophils Percent Manual 91 % (45-73)
[2022-08-11 06:10] LABS: Platelet Estimate NORMAL (NORMAL); Platelet Morphology Comment NORMAL; RBC Morphology NORMAL; Toxic Granulation PRESENT
--- NOTE | 2022-08-11 07:52 | PHA.MEDREC ---
Pharmacy Consult ? Medication Reconciliation Pharmacy has completed the medication reconciliation.
[2022-08-11] MEDS: Heparin Sodium,Porcine 5,000 UNIT/ML VIAL 5000 UNIT SUBCUT ×2 (08:45→20:31)
[2022-08-11] MEDS: Albumin Human 25 % 100 ML IV ×2 (08:45→09:49)
[2022-08-11] MEDS: amLODIPine Besylate 10 MG TABLET PO ×2 (08:46→20:30)
[2022-08-11] MEDS: Nicotine 14 MG PATCH.TD24 TRANSDERMA (08:46)
[2022-08-11] MEDS: Lactated Ringers 1,000 ML 100 ML IVCONT (09:50)
--- NOTE | 2022-08-11 10:41 | MHC.CM.PN ---
This senior medical writer attempted to meet with patient for CM assessment. He was partially cooperative with interview. Verified PCP is [facility]. Verified primary contact. When asked where patient is living he did not answer question. He did state during assessment that he @ one time lived with a significant other before she in April. Patient made statement- I just want to kill my self . 1:1 sitter @ bedside. CM will continue to follow patient for d/c planning purposes.
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
[2022-08-11] MEDS: Morphine Sulfate 2 MG/ML CARTRIDGE IVPUSH ×3 (12:39→20:28)
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
[2022-08-11 13:59] LABS: Vancomycin Random 14.5 mcg/mL (15-20)
--- NOTE | 2022-08-11 16:46 | HO.ADDICT_ITS ---
History of Present Illness Date of Service: 08/11/2022 Chief Complaint: BERNARD, Rhabdo Reason for Consult: opioid use ? withdrawal HPI Narrative: Patient is a 47 year old male currently medically admitted with acute renal failure. UDS + for opiates and fentanyl. Patient seen in room 478. 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 Eyes closed during most of interview--stating several times that he wants to take his life. Initially reporting that he had been in recovery for 3 years until April 2022 when his , then later stating he used substances for the first time in years last week. Reports using up to 10 bags of heroin daily--mainly [place] due to difficulty with IV access. Requesting methadone--states suboxone makes him nauseous. He reports being on methadone when he lived in [place]. Patient has numerous scratches on his head, arms and face. He states he went under a bridge to and this is how he got them. When asked if he was experiencing any withdrawal sx, he replied that he was unsure because his entire body hurts. Denies nausea, chills, restlessness. Chart reviewed, lengthy psychiatric admission here at [facility] from April to May 2022. Past Psychiatric History: -Hx of crisis evals since 2016, last seen on 07/04 due to SI, depression. Dispo was for IPLOC at [facility]. Hx of CCS 09/2020. -Hx of presenting with command AH to end his life and SI. In 03/2020 he was found by crisis in the basement with a rope and multiple knives that he intended to end his life with. Dispo was I[facility] at [facility]. -Hx of [facility], [facility], and [facility] admissions. -Hx of residential services through [facility]. Hx of VNA services from [facility]. Review of Systems Constitutional: Reports as per HPI, Reports fatigue, Reports malaise and Reports weakness Reports weakness Endocrine: Reports fatigue Diagnostics Vital Signs (24Hr): Vital Signs - 24 hr 08/10/22 17:00 08/10/22 18:00 08/10/22 19:00 Temperature Pulse Rate 80 77 75 Respiratory Rate 20 19 19 Blood Pressure 125/66 155/92 H 160/91 H Pulse Oximetry 94 95 97 Oxygen Delivery Method Room Air Room Air Room Air 08/10/22 20:00 08/10/22 21:00 08/10/22 22:00 Temperature 97.9 F 98.8 F 98.8 F Pulse Rate 74 87 79 Respiratory Rate 19 21 H 20 Blood Pressure 157/89 H 147/95 H 145/89 H Pulse Oximetry 96 97 94 Oxygen Delivery Method Room Air Room Air Room Air 08/10/22 23:00 08/11/22 00:00 08/11/22 01:00 Temperature 98.8 F 99.0 F 99.1 F Pulse Rate 79 87 89 Respiratory Rate 20 19 19 Blood Pressure 151/88 H 150/88 H 137/77 Pulse Oximetry 92 97 96 Oxygen Delivery Method Room Air Room Air Room Air 08/11/22 02:00 08/11/22 03:00 08/11/22 04:00 Temperature 98.6 F 98.3 F Pulse Rate 76 75 76 Respiratory Rate 18 21 H 20 Blood Pressure 149/89 H 135/70 142/80 H Pulse Oximetry 96 97 95 Oxygen Delivery Method Room Air Room Air Room Air 08/11/22 05:00 08/11/22 06:00 08/11/22 07:00 Temperature 98.6 F Pulse Rate 76 85 77 Respiratory Rate 20 20 18 Blood Pressure 128/69 132/75 141/93 H Pulse Oximetry 94 96 94 Oxygen Delivery Method Room Air Room Air Room Air 08/11/22 08:00 08/11/22 09:00 08/11/22 10:00 Temperature 98.2 F 98.1 F 98.1 F Pulse Rate 89 70 73 Respiratory Rate 19 18 19 Blood Pressure 150/88 H 147/86 H 140/79 H Pulse Oximetry 96 96 96 Oxygen Delivery Method Room Air Room Air Room Air 08/11/22 11:36 08/11/22 15:19 Temperature 97.4 F 98.0 F Pulse Rate 75 77 Respiratory Rate 20 20 Blood Pressure 145/70 H 149/80 H Pulse Oximetry 98 96 Oxygen Delivery Method Room Air Room Air BMI result Body Mass Index 25.7 Labs 08/11/22 04:57 08/11/22 04:57 Labs: Laboratory Results - last 48 hr 08/10/22 08/10/22 08/10/22 00:08 00:08 00:08 WBC RBC Hgb Hct MCV MCH MCHC RDW Plt Count MPV Immature Gran % (Auto) Neut % (Auto) Lymph % (Auto) Baxter % (Auto) Eos % (Auto) Baso % (Auto) Lymph # (Auto) Baxter # (Auto) Eos # (Auto) Baso # (Auto) Abs Immat Gran (auto) Absolute Neuts (auto) Absolute Nucleated RBC Nucleated RBC % (auto) Neutrophils % (Manual) Band Neutrophils % Lymphocytes % (Manual) Monocytes % (Manual) Abs Neuts (Manual) Lymphocytes # (Manual) Monocytes # (Manual) Toxic Granulation Toxic Vacuolation Dohle Bodies Platelet Estimate Plt Morphology Comment RBC Morphology PT INR APTT O2 Saturation ABG pH at Pt Temp ABG pCO2 at Pt Temp ABG pO2 at Pt Temp ABG HCO3 ABG Base Excess (Actual) VBG pH VBG pCO2 VBG pO2 VBG HCO3 VBG O2 Saturation VBG Base Excess Sodium 128 L Potassium 6.2 H* D Chloride 76 L D Carbon Dioxide 19 L Anion Gap 39 H BUN 214 H Creatinine 11.17 H* Estim Creat Clear Calc 6.1 Estimated GFR 5 POC Glucose Random Glucose 104 Osmolality Lactic Acid Calcium 7.2 L D Phosphorus Magnesium Total Bilirubin 1.0 AST 83 H ALT 85 H Alkaline Phosphatase 104 Total Creatine Kinase 2542 H Troponin I High Sens 21.8 C-Reactive Protein Total Protein 6.6 Albumin 3.4 L Lipase 167 H Urine Color Urine Appearance Urine pH Ur Specific [place] Urine Protein Urine Glucose (UA) Urine Ketones Urine Blood Urine Nitrite Ur Leukocyte Esterase Urine RBC Urine WBC Ur Squamous Epith Cells Other Crystals Urine Bacteria Epithelial Casts Hyaline Casts Ur Random Sodium Ur Random Potassium Ur Random Chloride Random Vancomycin Salicylates < 5.0 L Urine Opiates Screen Urine Fentanyl Screen Acetaminophen < 17 Ur Barbiturates Screen Ur Phencyclidine Scrn Ur Amphetamines Screen U Benzodiazepines Scrn Urine Cocaine Screen U Marijuana (THC) Screen Ethylene Glycol Volat Analys Perform On Ethyl Alcohol < 10 Cancelled Ethyl Alcohol mg/dL Ethyl Alcohol g/dL Isopropyl Alc, Quant Acetone Level COVID-19 ([place]) COVID-19 Clin Com 08/10/22 08/10/22 08/10/22 00:14 00:14 01:08 WBC 27.7 H RBC 5.40 Hgb 15.9 Hct 43.5 MCV 80.6 MCH 29.4 MCHC 36.6 H RDW 13.6 Plt Count 276 MPV 10.3 Immature Gran % (Auto) Cancelled Neut % (Auto) Cancelled Lymph % (Auto) Cancelled Baxter % (Auto) Cancelled Eos % (Auto) Cancelled Baso % (Auto) Cancelled Lymph # (Auto) Cancelled Baxter # (Auto) Cancelled Eos # (Auto) Cancelled Baso # (Auto) Cancelled Abs Immat Gran (auto) Cancelled Absolute Neuts (auto) Cancelled Absolute Nucleated RBC 0.000 Nucleated RBC % (auto) 0.0 Neutrophils % (Manual) 80 H Band Neutrophils % 9 H Lymphocytes % (Manual) 4 L Monocytes % (Manual) 7 Abs Neuts (Manual) 24.7 H Lymphocytes # (Manual) 1.1 L Monocytes # (Manual) 1.9 H Toxic Granulation PRESENT Toxic Vacuolation PRESENT Dohle Bodies PRESENT Platelet Estimate NORMAL Plt Morphology Comment NORMAL RBC Morphology NORMAL PT 14.0 H INR 1.2 H APTT 25.7 L O2 Saturation ABG pH at Pt Temp ABG pCO2 at Pt Temp ABG pO2 at Pt Temp ABG HCO3 ABG Base Excess (Actual) VBG pH VBG pCO2 VBG pO2 VBG HCO3 VBG O2 Saturation VBG Base Excess Sodium Potassium Chloride Carbon Dioxide Anion Gap BUN Creatinine Estim Creat Clear Calc Estimated GFR POC Glucose Random Glucose Osmolality Lactic Acid 0.9 Calcium Phosphorus Magnesium Total Bilirubin AST ALT Alkaline Phosphatase Total Creatine Kinase Troponin I High Sens C-Reactive Protein Total Protein Albumin Lipase Urine Color Urine Appearance Urine pH Ur Specific [place] Urine Protein Urine Glucose (UA) Urine Ketones Urine Blood Urine Nitrite Ur Leukocyte Esterase Urine RBC Urine WBC Ur Squamous Epith Cells Other Crystals Urine Bacteria Epithelial Casts Hyaline Casts Ur Random Sodium Ur Random Potassium Ur Random Chloride Random Vancomycin Salicylates Urine Opiates Screen Urine Fentanyl Screen Acetaminophen Ur Barbiturates Screen Ur Phencyclidine Scrn Ur Amphetamines Screen U Benzodiazepines Scrn Urine Cocaine Screen U Marijuana (THC) Screen Ethylene Glycol Volat Analys Perform On Ethyl Alcohol Ethyl Alcohol mg/dL Ethyl Alcohol g/dL Isopropyl Alc, Quant Acetone Level COVID-19 ([place]) COVID-19 Clin Com 08/10/22 08/10/22 08/10/22 01:33 01:36 02:02 WBC RBC Hgb Hct MCV MCH MCHC RDW Plt Count MPV Immature Gran % (Auto) Neut % (Auto) Lymph % (Auto) [place] % (Auto) Eos % (Auto) Baso % (Auto) Lymph # (Auto) Baxter # (Auto) Eos # (Auto) Baso # (Auto) Abs Immat Gran (auto) Absolute Neuts (auto) Absolute Nucleated RBC Nucleated RBC % (auto) Neutrophils % (Manual) Band Neutrophils % Lymphocytes % (Manual) Monocytes % (Manual) Abs Neuts (Manual) Lymphocytes # (Manual) Monocytes # (Manual) Toxic Granulation Toxic Vacuolation Dohle Bodies Platelet Estimate Plt Morphology Comment RBC Morphology PT INR APTT O2 Saturation 89.0 ABG pH at Pt Temp 7.43 ABG pCO2 at Pt Temp 31 L ABG pO2 at Pt Temp 68 L ABG HCO3 21 L ABG Base Excess (Actual) -1.6 VBG pH VBG pCO2 VBG pO2 VBG HCO3 VBG O2 Saturation VBG Base Excess Sodium Potassium Chloride Carbon Dioxide Anion Gap BUN Creatinine Estim Creat Clear Calc Estimated GFR POC Glucose 130 H Random Glucose Osmolality Lactic Acid Calcium Phosphorus Magnesium Total Bilirubin AST ALT Alkaline Phosphatase Total Creatine Kinase Troponin I High Sens C-Reactive Protein Total Protein Albumin Lipase Urine Color Urine Appearance Urine pH Ur Specific [place] Urine Protein Urine Glucose (UA) Urine Ketones Urine Blood Urine Nitrite Ur Leukocyte Esterase Urine RBC Urine WBC Ur Squamous Epith Cells Other Crystals Urine Bacteria Epithelial Casts Hyaline Casts Ur Random Sodium Ur Random Potassium Ur Random Chloride Random Vancomycin Salicylates Urine Opiates Screen Urine Fentanyl Screen Acetaminophen Ur Barbiturates Screen Ur Phencyclidine Scrn Ur Amphetamines Screen U Benzodiazepines Scrn Urine Cocaine Screen U Marijuana (THC) Screen Ethylene Glycol Volat Analys Perform On Ethyl Alcohol Ethyl Alcohol mg/dL Ethyl Alcohol g/dL Isopropyl Alc, Quant Acetone Level COVID-19 ([place]) Negative COVID-19 Clin Com See Note 08/10/22 08/10/22 08/10/22 02:48 02:48 04:08 WBC RBC Hgb Hct MCV MCH MCHC RDW Plt Count MPV Immature Gran % (Auto) Neut % (Auto) Lymph % (Auto) [place] % (Auto) Eos % (Auto) Baso % (Auto) Lymph # (Auto) Baxter # (Auto) Eos # (Auto) Baso # (Auto) Abs Immat Gran (auto) Absolute Neuts (auto) Absolute Nucleated RBC Nucleated RBC % (auto) Neutrophils % (Manual) Band Neutrophils % Lymphocytes % (Manual) Monocytes % (Manual) Abs Neuts (Manual) Lymphocytes # (Manual) Monocytes # (Manual) Toxic Granulation Toxic Vacuolation Dohle Bodies Platelet Estimate Plt Morphology Comment RBC Morphology PT INR APTT O2 Saturation ABG pH at Pt Temp ABG pCO2 at Pt Temp ABG pO2 at Pt Temp ABG HCO3 ABG Base Excess (Actual) VBG pH VBG pCO2 VBG pO2 VBG HCO3 VBG O2 Saturation VBG Base Excess Sodium Potassium Chloride Carbon Dioxide Anion Gap BUN Creatinine Estim Creat Clear Calc Estimated GFR POC Glucose Random Glucose Osmolality Lactic Acid Calcium Phosphorus Magnesium Total Bilirubin AST ALT Alkaline Phosphatase Total Creatine Kinase Troponin I High Sens C-Reactive Protein Total Protein Albumin Lipase Urine Color Yellow Urine Appearance Cloudy Urine pH 5.0 Ur Specific [place] 1.015 Urine Protein 100 (2+) H Urine Glucose (UA) 250 H Urine Ketones Negative Urine Blood Small (1+) H Urine Nitrite Negative Ur Leukocyte Esterase Trace H Urine RBC 3-5 H Urine WBC 0-5 Ur Squamous Epith Cells 0-2 Other Crystals Present Urine Bacteria None Seen Epithelial Casts Present Hyaline Casts 0-2 Ur Random Sodium Ur Random Potassium Ur Random Chloride Random Vancomycin Salicylates Urine Opiates Screen POSITIVE H Urine Fentanyl Screen POSITIVE H Acetaminophen Ur Barbiturates Screen Not Detected Ur Phencyclidine Scrn Not Detected Ur Amphetamines Screen Not Detected U Benzodiazepines Scrn Not Detected Urine Cocaine Screen POSITIVE H U Marijuana (THC) Screen Not Detected Ethylene Glycol Volat Analys Perform On WHOLE BLOOD Ethyl Alcohol Ethyl Alcohol mg/dL NONE DETECTED Ethyl Alcohol g/dL NONE DETECTED Isopropyl Alc, Quant NONE DETECTED Acetone Level NONE DETECTED COVID-19 ([place]) COVID-19 Clin Com 08/10/22 08/10/22 08/10/22 04:08 04:08 04:08 WBC 28.5 H RBC 4.71 Hgb 12.7 L D Hct 37.9 L MCV 80.5 MCH 27.0 MCHC 33.6 RDW 13.3 Plt Count 273 MPV 10.6 Immature Gran % (Auto) Cancelled Neut % (Auto) Cancelled Lymph % (Auto) Cancelled [place] % (Auto) Cancelled Eos % (Auto) Cancelled Baso % (Auto) Cancelled Lymph # (Auto) Cancelled Baxter # (Auto) Cancelled Eos # (Auto) Cancelled Baso # (Auto) Cancelled Abs Immat Gran (auto) Cancelled Absolute Neuts (auto) Cancelled Absolute Nucleated RBC 0.000 Nucleated RBC % (auto) 0.0 Neutrophils % (Manual) 70 Band Neutrophils % 11 H Lymphocytes % (Manual) 3 L Monocytes % (Manual) 16 H Abs Neuts (Manual) 23.1 H Lymphocytes # (Manual) 0.9 L Monocytes # (Manual) 4.6 H Toxic Granulation PRESENT Toxic Vacuolation Dohle Bodies PRESENT Platelet Estimate NORMAL Plt Morphology Comment NORMAL RBC Morphology NORMAL PT INR APTT O2 Saturation ABG pH at Pt Temp ABG pCO2 at Pt Temp ABG pO2 at Pt Temp ABG HCO3 ABG Base Excess (Actual) VBG pH VBG pCO2 VBG pO2 VBG HCO3 VBG O2 Saturation VBG Base Excess Sodium 129 L Potassium 5.5 H Chloride 78 L Carbon Dioxide 24 Anion Gap 33 H BUN 207 H Creatinine 10.91 H* Estim Creat Clear Calc 6.3 Estimated GFR 5 POC Glucose Random Glucose 87 Osmolality Lactic Acid Calcium 8.8 D Phosphorus 7.7 H Magnesium 2.7 H Total Bilirubin 1.0 AST 77 H ALT 75 H Alkaline Phosphatase 96 Total Creatine Kinase 2194 H Troponin I High Sens C-Reactive Protein 25.65 H Total Protein 5.7 L Albumin 3.0 L Lipase 167 H Urine Color Urine Appearance Urine pH Ur Specific [place] Urine Protein Urine Glucose (UA) Urine Ketones Urine Blood Urine Nitrite Ur Leukocyte Esterase Urine RBC Urine WBC Ur Squamous Epith Cells Other Crystals Urine Bacteria Epithelial Casts Hyaline Casts Ur Random Sodium Ur Random Potassium Ur Random Chloride Random Vancomycin Salicylates Urine Opiates Screen Urine Fentanyl Screen Acetaminophen Ur Barbiturates Screen Ur Phencyclidine Scrn Ur Amphetamines Screen U Benzodiazepines Scrn Urine Cocaine Screen U Marijuana (THC) Screen Ethylene Glycol NONE DETECTED Volat Analys Perform On Ethyl Alcohol Ethyl Alcohol mg/dL Ethyl Alcohol g/dL Isopropyl Alc, Quant Acetone Level COVID-19 ([place]) COVID-19 Clin Com 08/10/22 08/10/22 08/10/22 04:08 04:17 07:20 WBC RBC Hgb Hct MCV MCH MCHC RDW Plt Count MPV Immature Gran % (Auto) Neut % (Auto) Lymph % (Auto) [place] % (Auto) Eos % (Auto) Baso % (Auto) Lymph # (Auto) [place] # (Auto) Eos # (Auto) Baso # (Auto) Abs Immat Gran (auto) Absolute Neuts (auto) Absolute Nucleated RBC Nucleated RBC % (auto) Neutrophils % (Manual) Band Neutrophils % Lymphocytes % (Manual) Monocytes % (Manual) Abs Neuts (Manual) Lymphocytes # (Manual) Monocytes # (Manual) Toxic Granulation Toxic Vacuolation Dohle Bodies Platelet Estimate Plt Morphology Comment RBC Morphology PT INR APTT O2 Saturation ABG pH at Pt Temp ABG pCO2 at Pt Temp ABG pO2 at Pt Temp ABG HCO3 ABG Base Excess (Actual) VBG pH 7.45 H VBG pCO2 33 VBG pO2 59 VBG HCO3 23 VBG O2 Saturation 84.0 VBG Base Excess 0.0 Sodium Potassium Chloride Carbon Dioxide Anion Gap BUN Creatinine Estim Creat Clear Calc Estimated GFR POC Glucose Random Glucose Osmolality Lactic Acid Calcium Phosphorus Cancelled Magnesium Cancelled Total Bilirubin AST ALT Alkaline Phosphatase Total Creatine Kinase Cancelled Troponin I High Sens C-Reactive Protein Total Protein Albumin Lipase Cancelled Urine Color Urine Appearance Urine pH Ur Specific [place] Urine Protein Urine Glucose (UA) Urine Ketones Urine Blood Urine Nitrite Ur Leukocyte Esterase Urine RBC Urine WBC Ur Squamous Epith Cells Other Crystals Urine Bacteria Epithelial Casts Hyaline Casts Ur Random Sodium 25.0 Ur Random Potassium Ur Random Chloride Random Vancomycin Salicylates Urine Opiates Screen Urine Fentanyl Screen Acetaminophen Ur Barbiturates Screen Ur Phencyclidine Scrn Ur Amphetamines Screen U Benzodiazepines Scrn Urine Cocaine Screen U Marijuana (THC) Screen Ethylene Glycol Volat Analys Perform On Ethyl Alcohol Ethyl Alcohol mg/dL Ethyl Alcohol g/dL Isopropyl Alc, Quant Acetone Level COVID-19 ([place]) COVID-19 Clin Com 08/10/22 08/10/22 08/10/22 07:20 07:20 07:30 WBC RBC Hgb Hct MCV MCH MCHC RDW Plt Count MPV Immature Gran % (Auto) Neut % (Auto) Lymph % (Auto) [place] % (Auto) Eos % (Auto) Baso % (Auto) Lymph # (Auto) [place] # (Auto) Eos # (Auto) Baso # (Auto) Abs Immat Gran (auto) Absolute Neuts (auto) Absolute Nucleated RBC Nucleated RBC % (auto) Neutrophils % (Manual) Band Neutrophils % Lymphocytes % (Manual) Monocytes % (Manual) Abs Neuts (Manual) Lymphocytes # (Manual) Monocytes # (Manual) Toxic Granulation Toxic Vacuolation Dohle Bodies Platelet Estimate Plt Morphology Comment RBC Morphology PT INR APTT O2 Saturation ABG pH at Pt Temp ABG pCO2 at Pt Temp ABG pO2 at Pt Temp ABG HCO3 ABG Base Excess (Actual) VBG pH VBG pCO2 VBG pO2 VBG HCO3 VBG O2 Saturation VBG Base Excess Sodium Potassium Chloride Carbon Dioxide Anion Gap BUN Creatinine Estim Creat Clear Calc Estimated GFR POC Glucose Random Glucose Osmolality 335 H Lactic Acid Calcium Phosphorus Magnesium Total Bilirubin AST ALT Alkaline Phosphatase Total Creatine Kinase Troponin I High Sens C-Reactive Protein Total Protein Albumin Lipase Urine Color Urine Appearance Urine pH Ur Specific [place] Urine Protein Urine Glucose (UA) Urine Ketones Urine Blood Urine Nitrite Ur Leukocyte Esterase Urine RBC Urine WBC Ur Squamous Epith Cells Other Crystals Urine Bacteria Epithelial Casts Hyaline Casts Ur Random Sodium Ur Random Potassium 56.1 Ur Random Chloride 21.0 Random Vancomycin Salicylates Urine Opiates Screen Urine Fentanyl Screen Acetaminophen Ur Barbiturates Screen Ur Phencyclidine Scrn Ur Amphetamines Screen U Benzodiazepines Scrn Urine Cocaine Screen U Marijuana (THC) Screen Ethylene Glycol Volat Analys Perform On Ethyl Alcohol Ethyl Alcohol mg/dL Ethyl Alcohol g/dL Isopropyl Alc, Quant Acetone Level COVID-19 ([place]) COVID-19 Clin Com 08/10/22 08/10/22 08/11/22 13:56 20:53 04:57 WBC 29.2 H RBC 4.41 L Hgb 13.2 L Hct 35.6 L MCV 80.7 MCH 29.9 MCHC 37.1 H RDW 13.5 Plt Count 241 MPV 10.0 Immature Gran % (Auto) Cancelled Neut % (Auto) Cancelled Lymph % (Auto) Cancelled [place] % (Auto) Cancelled Eos % (Auto) Cancelled Baso % (Auto) Cancelled Lymph # (Auto) Cancelled [place] # (Auto) Cancelled Eos # (Auto) Cancelled Baso # (Auto) Cancelled Abs Immat Gran (auto) Cancelled Absolute Neuts (auto) Cancelled Absolute Nucleated RBC 0.000 Nucleated RBC % (auto) 0.0 Neutrophils % (Manual) 91 H Band Neutrophils % 4 Lymphocytes % (Manual) 3 L Monocytes % (Manual) 2 Abs Neuts (Manual) 27.7 H Lymphocytes # (Manual) 0.9 L Monocytes # (Manual) 0.6 Toxic Granulation PRESENT Toxic Vacuolation Dohle Bodies Platelet Estimate NORMAL Plt Morphology Comment NORMAL RBC Morphology NORMAL PT INR APTT O2 Saturation ABG pH at Pt Temp ABG pCO2 at Pt Temp ABG pO2 at Pt Temp ABG HCO3 ABG Base Excess (Actual) VBG pH VBG pCO2 VBG pO2 VBG HCO3 VBG O2 Saturation VBG Base Excess Sodium 127 L 127 L Potassium 5.1 5.1 Chloride 83 L 85 L Carbon Dioxide 21 L 19 L Anion Gap 28 H 28 H BUN 201 H 201 H Creatinine 10.45 H* 10.36 H* Estim Creat Clear Calc 8.5 8.6 Estimated GFR 5 5 POC Glucose Random Glucose 130 H 115 Osmolality Lactic Acid Calcium 7.2 L D 7.2 L Phosphorus Magnesium Total Bilirubin AST ALT Alkaline Phosphatase Total Creatine Kinase Troponin I High Sens C-Reactive Protein Total Protein Albumin Lipase Urine Color Urine Appearance Urine pH Ur Specific [place] Urine Protein Urine Glucose (UA) Urine Ketones Urine Blood Urine Nitrite Ur Leukocyte Esterase Urine RBC Urine WBC Ur Squamous Epith Cells Other Crystals Urine Bacteria Epithelial Casts Hyaline Casts Ur Random Sodium Ur Random Potassium Ur Random Chloride Random Vancomycin Salicylates Urine Opiates Screen Urine Fentanyl Screen Acetaminophen Ur Barbiturates Screen Ur Phencyclidine Scrn Ur Amphetamines Screen U Benzodiazepines Scrn Urine Cocaine Screen U Marijuana (THC) Screen Ethylene Glycol Volat Analys Perform On Ethyl Alcohol Ethyl Alcohol mg/dL Ethyl Alcohol g/dL Isopropyl Alc, Quant Acetone Level COVID-19 ([place]) COVID-19 Clin Com 08/11/22 08/11/22 08/11/22 04:57 04:57 13:26 WBC RBC Hgb Hct MCV MCH MCHC RDW Plt Count MPV Immature Gran % (Auto) Neut % (Auto) Lymph % (Auto) [place] % (Auto) Eos % (Auto) Baso % (Auto) Lymph # (Auto) [place] # (Auto) Eos # (Auto) Baso # (Auto) Abs Immat Gran (auto) Absolute Neuts (auto) Absolute Nucleated RBC Nucleated RBC % (auto) Neutrophils % (Manual) Band Neutrophils % Lymphocytes % (Manual) Monocytes % (Manual) Abs Neuts (Manual) Lymphocytes # (Manual) Monocytes # (Manual) Toxic Granulation Toxic Vacuolation Dohle Bodies Platelet Estimate Plt Morphology Comment RBC Morphology PT INR APTT O2 Saturation ABG pH at Pt Temp ABG pCO2 at Pt Temp ABG pO2 at Pt Temp ABG HCO3 ABG Base Excess (Actual) VBG pH 7.44 H VBG pCO2 34 VBG pO2 56 VBG HCO3 23 VBG O2 Saturation 81.0 VBG Base Excess 0.4 Sodium 129 L Potassium 5.0 Chloride 85 L Carbon Dioxide 23 Anion Gap 26 H BUN 194 H Creatinine 10.61 H* Estim Creat Clear Calc 8.4 Estimated GFR 5 POC Glucose Random Glucose 108 Osmolality Lactic Acid Calcium 7.3 L Phosphorus 6.3 H Magnesium 2.4 Total Bilirubin 0.8 AST 58 H ALT 63 H Alkaline Phosphatase 90 Total Creatine Kinase Troponin I High Sens C-Reactive Protein Total Protein 5.0 L Albumin 2.6 L Lipase Urine Color Urine Appearance Urine pH Ur Specific [place] Urine Protein Urine Glucose (UA) Urine Ketones Urine Blood Urine Nitrite Ur Leukocyte Esterase Urine RBC Urine WBC Ur Squamous Epith Cells Other Crystals Urine Bacteria Epithelial Casts Hyaline Casts Ur Random Sodium Ur Random Potassium Ur Random Chloride Random Vancomycin 14.5 L Salicylates Urine Opiates Screen Urine Fentanyl Screen Acetaminophen Ur Barbiturates Screen Ur Phencyclidine Scrn Ur Amphetamines Screen U Benzodiazepines Scrn Urine Cocaine Screen U Marijuana (THC) Screen Ethylene Glycol Volat Analys Perform On Ethyl Alcohol Ethyl Alcohol mg/dL Ethyl Alcohol g/dL Isopropyl Alc, Quant Acetone Level COVID-19 ([place]) COVID-19 Clin Com Imaging Radiology Impressions: ITS Impressions Chest X-Ray 08/09/22 22:07 IMPRESSION: Unremarkable examination. Cervical Spine CT 08/09/22 23:40 IMPRESSION: 1. No acute findings identified in the head, facial bones, or cervical spine. 2. Multiple dental caries and periapical lucencies. Face CT 08/09/22 23:40 IMPRESSION: 1. No acute findings identified in the head, facial bones, or cervical spine. 2. Multiple dental caries and periapical lucencies. Head CT 08/09/22 23:40 IMPRESSION: 1. No acute findings identified in the head, facial bones, or cervical spine. 2. Multiple dental caries and periapical lucencies. Abdomen/Pelvis CT 08/10/22 01:32 IMPRESSION: 1. Thick-walled segment of distal small bowel in the right lower quadrant, as well as wall thickening of the descending colon. Appearance may reflect a combination of infectious/inflammatory enteritis and colitis, though in the setting of reported trauma mural hematoma and associated mesenteric injury would be difficult to exclude. 2. Trace free fluid in the pelvis such as a simple fluid appearance. 3. Bilateral renal calculi without hydronephrosis. 4. Partially visualized density in the left inguinal canal may reflect fluid versus retractile testicle. Chest X-Ray 08/10/22 04:05 IMPRESSION: Right IJ central line tip in the region of the cavoatrial junction. Mental Status Exam Mental Status Exam Patient Appearance: Unkempt Level of Consciousness: Awake Patient Behavior: Cooperative and Passive Mood Description: Anxious Affect Description: Flat Medications Medications Current Medications Amlodipine Besylate (Amlodipine Besylate 10 Mg Tablet) 10 mg PO DAILY [facility]; Protocol Last Admin: 08/11/22 08:46 Dose: 10 mg Heparin Sodium (Porcine) (Heparin Sodium,Porcine 5,000 Unit/Ml Vial) 5,000 unit SUBCUT Q12H [facility] Last Admin: 08/11/22 08:45 Dose: 5,000 unit Lactated Ringer's (Lr) 1,000 mls @ 100 mls/hr IVCONT .Q10H [facility] Last Admin: 08/11/22 09:50 Dose: 100 mls/hr Piperacillin Sod/Tazobactam (Sod 2.25 gm/ Sodium Chloride) 50 mls @ 100 mls/hr IV Q6H [facility] Last Infusion: 08/11/22 09:49 Dose: Infused Vancomycin HCl 500 mg/ Sodium (Chloride) 110 mls @ 110 mls/hr IV Q48H [facility] Midazolam HCl (Midazolam Hcl/Pf 2 Mg/2 Ml Vial) 1 mg IVPUSH Q3H PRN PRN Reason: anxiety Last Admin: 08/11/22 02:27 Dose: 1 mg Morphine Sulfate (Morphine Sulfate 2 Mg/Ml Cartridge) 2 mg IVPUSH Q4H PRN; Protocol PRN Reason: Pain, Severe (Pain Scale 7-10) Last Admin: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
[2022-08-11] MEDS: QUEtiapine Fumarate 200 MG TABLET PO (20:29)
[2022-08-11] MEDS: Thiamine HCL 100 MG TABLET PO (20:29)
[2022-08-11] MEDS: traZODone HCL 50 MG TABLET 150 MG PO (20:29)
[2022-08-12] VITALS (7 sets, daily range): BP systolic 116–151; BP diastolic 56–85; PULSE 87–108; RESP 14–22; TEMP 36.1–38.2; O2SAT 94–97
[2022-08-12] MEDS: Lactated Ringers 1,000 ML 100 ML IVCONT
[2022-08-12] MEDS: Piperacillin Sodium/Tazobactam 2.25 GM in 0.9 % Sodium Chloride 50 ML IV ×3 (05:03→17:42)
[2022-08-12] MEDS: Pantoprazole Sodium 40 MG/10 ML VIAL IVPUSH (05:43)
[2022-08-12] MEDS: Heparin Sodium,Porcine 5,000 UNIT/ML VIAL 5000 UNIT SUBCUT ×2 (08:52→20:29)
[2022-08-12] MEDS: Nicotine 14 MG PATCH.TD24 TRANSDERMA (08:53)
[2022-08-12] MEDS: buPROPion HCL 100 MG TABLET PO (08:53)
[2022-08-12] MEDS: Thiamine HCL 100 MG TABLET PO (08:53)
[2022-08-12] MEDS: Multivitamin TABLET 1 TAB PO (08:53)
[2022-08-12] MEDS: amLODIPine Besylate 10 MG TABLET PO (08:53)
[2022-08-12] MEDS: 0.9 % Sodium Chloride 1,000 ML 100 ML IVCONT ×2 (08:54→20:39)
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
[2022-08-12 09:20] LABS: MANUAL DIFF FLAG NO
[2022-08-12 09:27] LABS: Basophils Absolute Auto 0.1 X10*3/uL (0.0-0.2); Basophils Percent Auto 0.6 % (0-2); Eosinophils Percent Auto 0.2 % (0-4); Hematocrit 32.2 % (42.0-52.0); Hemoglobin 11.9 g/dl (14.0-18.0); Imm Gran Abs Auto 0.82 X10*3/uL (0.00-0.03); Imm Gran Pct Auto 3.9 % (0.0-0.4); Lymphocytes Absolute Auto 0.5 X10*3/uL (1.2-4.9); Lymphocytes Percent Auto 2.4 % (20-40); Mean Corpuscular Hemoglobin 29.9 pg (27.0-33.0); Mean Corpuscular Volume 80.9 fL (80.0-98.0); Mean Platelet Volume 9.4 fL (9.4-12.4); Monocytes Absolute Auto 0.7 X10*3/uL (0.1-1.2); Monocytes Percent Auto 3.5 % (2-11); Neutrophils Absolute Auto 18.7 x10*3/uL (2.0-8.3); Neutrophils Percent Auto 89.4 % (45-73); Platelet Count 217 X10*3/uL (160-400); Red Blood Count 3.98 X10*6/uL (4.60-5.80); Red Cell Distribution Width 13.4 % (11.0-16.0)
[2022-08-12 09:43] LABS: Alanine Aminotransferase 48 U/L (0-40); Albumin Level 2.9 g/dL (3.5-5.0); Alkaline Phosphatase 73 U/L (39-117); Anion Gap 23 (12-20); Aspartate Amino Transferase 37 U/L (5-37); Bilirubin Direct 0.4 mg/dL (0.0-0.5); Calcium 7.1 mg/dL (8.4-10.2); Carbon Dioxide 22 mmol/L (22-29); Chloride 92 mmol/L (96-108); Creatinine Clr Calc Pharmacy 8.3; Estimated Glomerular Filt Rate 5; Glucose Random 132 mg/dL (60-115); Magnesium 2.2 mg/dL (1.6-2.6); Phosphorus 5.1 mg/dL (2.7-4.5); Potassium 4.4 mmol/L (3.3-5.1); Sodium 133 mmol/L (135-145); Total Protein 5.1 g/dL (6.5-8.0)
[2022-08-12 10:17] LABS: Blood Urea Nitrogen 192 mg/dL (9-16)
--- NOTE | 2022-08-12 11:48 | MHC.RECOVRN ---
Attempted to meet with pt to assess withdrawal. Pt sleeping comfortably. Sitter reports pt has been c/o pain and has not eaten, only able to drink marlene johnny. Clotilde Pan APRN, aware.
--- NOTE | 2022-08-12 13:18 | HO.PM.IMPN ---
Subjective Subjective Date of Service: 08/13/22 Interval History: Seen and evaluated Complaining of generalized weakness and overall pain Cr trending down still having low grade fevers No other overnight events Review of Systems Review of Systems: Yes all other systems are reviewed and are negative Physical Exam Vital Signs: Vital Signs: Last Vital Signs Temp 99.0 F 08/12/22 11:41 Pulse 100 08/12/22 11:41 Resp 18 08/12/22 11:41 BP 119/70 08/12/22 11:41 Pulse Ox 96 08/12/22 11:41 O2 Del Method Room Air 08/12/22 11:41 BMI result Body Mass Index 25.7 Const: Other: Constitutional : Awake, not in distress Neck : Normal inspection, Supple Cardiovascular : RRR, no JVP, no lower extremity edema Respiratory : good bilateral air entry, no crackles, wheezes or rhonchi Gastrointestinal: soft, lax, Normal bowel sounds, Non tender Skin : Warm, Dry, multiple skin abrasions and scratch markings Neurological : Alert & oriented x3, No focal deficit Objective Data Active Medications Acetaminophen (Acetaminophen 325 Mg Tablet) 975 mg PO Q6H PRN PRN Reason: Fever Amlodipine Besylate (Amlodipine Besylate 10 Mg Tablet) 10 mg PO DAILY [facility]; Protocol Last Admin: 08/12/22 08:53 Dose: 10 mg Documented By: LEWIS Bupropion HCl (Bupropion Hcl 100 Mg Tablet) 100 mg PO BID [facility] Last Admin: 08/12/22 08:53 Dose: 100 mg Documented By: LEWIS Heparin Sodium (Porcine) (Heparin Sodium,Porcine 5,000 Unit/Ml Vial) 5,000 unit SUBCUT Q12H [facility] Last Admin: 08/12/22 08:52 Dose: 5,000 unit Documented By: LEWIS Hydroxyzine HCl (Hydroxyzine Hcl 50 Mg Tablet) 50 mg PO Q6H PRN PRN Reason: anxiety Piperacillin Sod/Tazobactam (Sod 2.25 gm/ Sodium Chloride) 50 mls @ 100 mls/hr IV Q6H [facility] Last Infusion: 08/12/22 12:47 Dose: 0 mls/hr Documented By: LEWIS Sodium Chloride (Ns) 1,000 mls @ 100 mls/hr IVCONT .Q10H [facility] Last Admin: 08/12/22 08:54 Dose: 100 mls/hr Documented By: LEWIS Daptomycin 635 mg/ Sodium (Chloride) 62.7 mls @ 100 mls/hr IV Q48H [facility] Methadone HCl (Methadone Hcl 20 Mg/2 Ml Oral.Conc) 10 mg PO Q4H PRN PRN Reason: Opiate Withdrawal Midazolam HCl (Midazolam Hcl/Pf 2 Mg/2 Ml Vial) 1 mg IVPUSH Q3H PRN PRN Reason: anxiety Last Admin: 08/11/22 02:27 Dose: 1 mg Documented By: ROJAS Morphine Sulfate (Morphine Sulfate 2 Mg/Ml Cartridge) 2 mg IVPUSH Q4H PRN; Protocol PRN Reason: Pain, Severe (Pain Scale 7-10) Last Admin: 08/11/22 20:28 Dose: 2 mg Documented By: NANDO Multivitamins/Vitamin C (Multivitamin Tablet) 1 tab PO DAILY [facility] Last Admin: 08/12/22 08:53 Dose: 1 tab Documented By: LEWIS Nicotine (Nicotine 14 Mg Patch.Td24) 14 mg TRANSDERMA DAILY [facility] Last Admin: 08/12/22 08:53 Dose: 14 mg Documented By: LEWIS Omeprazole (Omeprazole 40 Mg Capsule.Dr) 40 mg PO DAILY@0630 [facility] Ondansetron HCl (Ondansetron Hcl 4 Mg/2 Ml Vial) 4 mg IVPUSH Q4H PRN PRN Reason: Nausea Last Admin: 08/10/22 21:49 Dose: 4 mg Documented By: MARIA ALEJANDRA Quetiapine Fumarate (Quetiapine Fumarate 200 Mg Tablet) 200 mg PO BEDTIME [facility] Last Admin: 08/11/22 20:29 Dose: 200 mg Documented By: NANDO Thiamine HCl (Thiamine Hcl 100 Mg Tablet) 100 mg PO DAILY [facility] Last Admin: 08/12/22 08:53 Dose: 100 mg Documented By: LEWIS Trazodone HCl (Trazodone Hcl 50 Mg Tablet) 150 mg PO BEDTIME [facility] Last Admin: 08/11/22 20:29 Dose: 150 mg Documented By: NANDO Labs 08/12/22 09:10 08/12/22 09:11 Labs: Laboratory Results - last 24 hr 08/11/22 08/12/22 08/12/22 13:26 09:10 09:10 MCV 80.9 MCH 29.9 MCHC 37.0 H RDW 13.4 Plt Count 217 MPV 9.4 Immature Gran % (Auto) 3.9 H Neut % (Auto) 89.4 H Lymph % (Auto) 2.4 L Hand % (Auto) 3.5 Eos % (Auto) 0.2 Baso % (Auto) 0.6 Lymph # (Auto) 0.5 L Hand # (Auto) 0.7 Eos # (Auto) 0.0 Baso # (Auto) 0.1 Abs Immat Gran (auto) 0.82 H Absolute Neuts (auto) 18.7 H Absolute Nucleated RBC 0.000 Nucleated RBC % (auto) 0.0 Anion Gap Cancelled Estim Creat Clear Calc Cancelled Estimated GFR Cancelled Random Glucose Cancelled Calcium Cancelled Phosphorus Magnesium Total Bilirubin Direct Bilirubin AST ALT Alkaline Phosphatase Total Protein Albumin Random Vancomycin 14.5 L 08/12/22 09:11 MCV MCH MCHC RDW Plt Count MPV Immature Gran % (Auto) Neut % (Auto) Lymph % (Auto) Hand % (Auto) Eos % (Auto) Baso % (Auto) Lymph # (Auto) Hand # (Auto) Eos # (Auto) Baso # (Auto) Abs Immat Gran (auto) Absolute Neuts (auto) Absolute Nucleated RBC Nucleated RBC % (auto) Anion Gap 23 H Estim Creat Clear Calc 8.3 Estimated GFR 5 Random Glucose 132 H Calcium 7.1 L Phosphorus 5.1 H Magnesium 2.2 Total Bilirubin 1.0 Direct Bilirubin 0.4 AST 37 ALT 48 H Alkaline Phosphatase 73 Total Protein 5.1 L Albumin 2.9 L Random Vancomycin Microbiology Microbiology Results: Microbiology 08/11/22 12:23 Blood Culture - Final Blood - Venous 08/10/22 01:08 Blood Culture - Preliminary Blood - Venous Staphylococcus species 08/10/22 01:08 Blood Culture - Preliminary Blood - Venous Staphylococcus species Assessment and Plan (1) Opioid use disorder: Status: Acute (2) Polysubstance abuse: Status: Acute (3) Hyponatremia: Status: Acute (4) Acute hyperkalemia: Status: Acute (5) Acute renal failure: Status: Acute Plan Staph Epidermis Bacteremia leukocytosis trending down Negative Echo repeated cultures still negative On Daptomycin Pending ID eval BERNARD 2/2 Hypoperfusion, Drugs, ATN Cr of 9.7 today, trending down CPK less than 3000, unlikely No obstruction on images Continue hydration Keep Ortiz in Avoid nephrotoxins nephrology following, pending immune blood work Drug abuse seen by recovery team, Methadone PRN for now Hyponatremia due to BERNARD monitor BMP Hyperkalemia Lokelma as needed follow levels Hyperphosphatemia 2/2 BERNARD Add Sevelamer DVT PPx Heparin PAtient will need overnight hospital stay for treatment of BERNARD and bacteremia pending ID eval Time Spent With Patient Time: Total time managing care of this patient today ____ minutes. Quality Stroke Does the patient have a stroke diagnosis?: No VTE Prior VTE?: No VTE Risk Level:: Medical - moderate - high VTE Device Contraindication: N/A - Device Ordered VTE Drug Contraindication: N/A - Med Ordered
[2022-08-12 13:33] LABS: Creatinine Urine 42.68 mg/dL; Total Protein Urine Random 17 mg/dL (<12)
[2022-08-12] MEDS: Morphine Sulfate 2 MG/ML CARTRIDGE IVPUSH (20:45)
[2022-08-13] MEDS: Piperacillin Sodium/Tazobactam 2.25 GM in 0.9 % Sodium Chloride 50 ML IV ×4 (00:08→17:03)
[2022-08-13 03:08] VITALS: BP 126/63; PULSE 95; RESP 18; TEMP 37.3; O2SAT 98
[2022-08-13] MEDS: Omeprazole 40 MG CAPSULE.DR PO (05:58)
[2022-08-13] MEDS: Morphine Sulfate 2 MG/ML CARTRIDGE IVPUSH ×4 (06:04→20:58)
[2022-08-13 07:13] LABS: Hematocrit 31.7 % (42.0-52.0); Hemoglobin 11.5 g/dl (14.0-18.0); Mean Corpuscular HGB Conc 36.3 g/dl (31.0-36.0); Mean Corpuscular Hemoglobin 29.9 pg (27.0-33.0); Mean Corpuscular Volume 82.6 fL (80.0-98.0); Mean Platelet Volume 9.7 fL (9.4-12.4); Platelet Count 259 X10*3/uL (160-400); Red Blood Count 3.84 X10*6/uL (4.60-5.80); Red Cell Distribution Width 13.5 % (11.0-16.0); White Blood Count 20.8 X10*3/uL (4.8-10.8)
[2022-08-13 07:30] VITALS: BP 150/83; PULSE 92; RESP 16; TEMP 37.1; O2SAT 96
[2022-08-13 08:01] LABS: Anion Gap 24 (12-20); Calcium 6.8 mg/dL (8.4-10.2); Carbon Dioxide 20 mmol/L (22-29); Chloride 94 mmol/L (96-108); Creatinine Clr Calc Pharmacy 9.1; Estimated Glomerular Filt Rate 6; Glucose Random 156 mg/dL (60-115); Potassium 3.8 mmol/L (3.3-5.1); Sodium 134 mmol/L (135-145)
[2022-08-13 08:19] LABS: Blood Urea Nitrogen 168 mg/dL (9-16)
[2022-08-13] MEDS: 0.9 % Sodium Chloride 1,000 ML 100 ML IVCONT ×2 (08:39→17:04)
[2022-08-13] MEDS: Thiamine HCL 100 MG TABLET PO (08:41)
[2022-08-13] MEDS: Heparin Sodium,Porcine 5,000 UNIT/ML VIAL 5000 UNIT SUBCUT ×2 (08:41→21:00)
[2022-08-13] MEDS: buPROPion HCL 100 MG TABLET PO ×2 (08:41→20:58)
[2022-08-13] MEDS: Nicotine 14 MG PATCH.TD24 TRANSDERMA (08:41)
[2022-08-13] MEDS: amLODIPine Besylate 10 MG TABLET PO (08:42)
[2022-08-13] MEDS: Multivitamin TABLET 1 TAB PO (08:42)
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
[2022-08-13 11:28] VITALS: BP 140/69; PULSE 93; RESP 16; TEMP 36.4; O2SAT 95
--- NOTE | 2022-08-13 12:22 | HO.PM.IMPN ---
Subjective Subjective Date of Service: 08/13/22 Interval History: Seen and evaluated Complaining of generalized weakness and overall pain Cr trending down still having low grade fevers No other overnight events Physical Exam Vital Signs: Vital Signs: Last Vital Signs Temp 97.6 F 08/13/22 11:28 Pulse 93 08/13/22 11:28 Resp 16 08/13/22 11:28 BP 140/69 H 08/13/22 11:28 Pulse Ox 95 08/13/22 11:28 O2 Del Method Room Air 08/13/22 11:28 BMI result Body Mass Index 25.7 Const: Other: Constitutional : Awake, not in distress Neck : Normal inspection, Supple Cardiovascular : RRR, no JVP, no lower extremity edema Respiratory : good bilateral air entry, no crackles, wheezes or rhonchi Gastrointestinal: soft, lax, Normal bowel sounds, Non tender Skin : Warm, Dry, multiple skin abrasions and scratch markings Neurological : Alert & oriented x3, No focal deficit Objective Data Active Medications Acetaminophen (Acetaminophen 325 Mg Tablet) 975 mg PO Q6H PRN PRN Reason: Fever Amlodipine Besylate (Amlodipine Besylate 10 Mg Tablet) 10 mg PO DAILY [facility]; Protocol Last Admin: 08/13/22 08:42 Dose: 10 mg Documented By: LEWIS Bupropion HCl (Bupropion Hcl 100 Mg Tablet) 100 mg PO BID [facility] Last Admin: 08/13/22 08:41 Dose: 100 mg Documented By: LEWIS Docusate Sodium (Docusate Sodium 100 Mg Capsule) 100 mg PO BID [facility] Heparin Sodium (Porcine) (Heparin Sodium,Porcine 5,000 Unit/Ml Vial) 5,000 unit SUBCUT Q12H [facility] Last Admin: 08/13/22 08:41 Dose: 5,000 unit Documented By: LEWIS Hydroxyzine HCl (Hydroxyzine Hcl 50 Mg Tablet) 50 mg PO Q6H PRN PRN Reason: anxiety Piperacillin Sod/Tazobactam (Sod 2.25 gm/ Sodium Chloride) 50 mls @ 100 mls/hr IV Q6H [facility] Last Admin: 08/13/22 11:50 Dose: 100 mls/hr Documented By: LEWIS Sodium Chloride (Ns) 1,000 mls @ 100 mls/hr IVCONT .Q10H [facility] Last Admin: 08/13/22 08:39 Dose: 100 mls/hr Documented By: LEWIS Daptomycin 635 mg/ Sodium (Chloride) 62.7 mls @ 100 mls/hr IV Q48H [facility] Last Infusion: 08/12/22 14:48 Dose: 0 mls/hr Documented By: LEWIS Lactulose (Lactulose 20 Gm/30 Ml Solution) 20 gm PO TID [facility] Methadone HCl (Methadone Hcl 20 Mg/2 Ml Oral.Conc) 10 mg PO Q4H PRN PRN Reason: Opiate Withdrawal Midazolam HCl (Midazolam Hcl/Pf 2 Mg/2 Ml Vial) 1 mg IVPUSH Q3H PRN PRN Reason: anxiety Last Admin: 08/11/22 02:27 Dose: 1 mg Documented By: ROJAS Morphine Sulfate (Morphine Sulfate 2 Mg/Ml Cartridge) 2 mg IVPUSH Q4H PRN; Protocol PRN Reason: Pain, Severe (Pain Scale 7-10) Last Admin: 08/13/22 11:56 Dose: 2 mg Documented By: LEWIS Multivitamins/Vitamin C (Multivitamin Tablet) 1 tab PO DAILY [facility] Last Admin: 08/13/22 08:42 Dose: 1 tab Documented By: LEWIS Nicotine (Nicotine 14 Mg Patch.Td24) 14 mg TRANSDERMA DAILY [facility] Last Admin: 08/13/22 08:41 Dose: 14 mg Documented By: LEWIS Omeprazole (Omeprazole 40 Mg Capsule.Dr) 40 mg PO DAILY@0630 [facility] Last Admin: 08/13/22 05:58 Dose: 40 mg Documented By: NANDO Ondansetron HCl (Ondansetron Hcl 4 Mg/2 Ml Vial) 4 mg IVPUSH Q4H PRN PRN Reason: Nausea Last Admin: 08/10/22 21:49 Dose: 4 mg Documented By: MARIA ALEJANDRA Quetiapine Fumarate (Quetiapine Fumarate 200 Mg Tablet) 200 mg PO BEDTIME [facility] Last Admin: 08/12/22 20:41 Dose: Not Given Documented By: NANDO Non-Admin Reason: Patient Refused Sevelamer Carbonate (Sevelamer Carbonate Tablet 800 Mg Tablet) 800 mg PO TIDWM [facility] Thiamine HCl (Thiamine Hcl 100 Mg Tablet) 100 mg PO DAILY [facility] Last Admin: 08/13/22 08:41 Dose: 100 mg Documented By: LEWIS Trazodone HCl (Trazodone Hcl 50 Mg Tablet) 150 mg PO BEDTIME [facility] Last Admin: 08/12/22 20:41 Dose: Not Given Documented By: NANDO Non-Admin Reason: Patient Refused Labs 08/13/22 06:42 08/13/22 06:42 Labs: Laboratory Results - last 24 hr 08/12/22 08/13/22 08/13/22 12:40 06:42 06:42 MCV 82.6 MCH 29.9 MCHC 36.3 H RDW 13.5 Plt Count 259 MPV 9.7 Absolute Nucleated RBC 0.000 Nucleated RBC % (auto) 0.0 Anion Gap Estim Creat Clear Calc Cancelled Estimated GFR Cancelled Random Glucose Calcium U Random Total Protein 17 H Urine Creatinine 42.68 08/13/22 06:42 MCV MCH MCHC RDW Plt Count MPV Absolute Nucleated RBC Nucleated RBC % (auto) Anion Gap 24 H Estim Creat Clear Calc 9.1 Estimated GFR 6 Random Glucose 156 H Calcium 6.8 L U Random Total Protein Urine Creatinine Microbiology Microbiology Results: Microbiology 08/10/22 01:08 Blood Culture - Final Blood - Venous Staphylococcus epidermidis 08/10/22 01:08 Blood Culture - Final Blood - Venous Staphylococcus epidermidis 08/11/22 13:26 Blood Culture - Preliminary Blood - Venous No growth after 24 hours. 08/11/22 12:23 Blood Culture - Final Blood - Venous Assessment and Plan (1) Opioid use disorder: Status: Acute (2) Polysubstance abuse: Status: Acute (3) Hyponatremia: Status: Acute (4) Acute hyperkalemia: Status: Acute (5) Acute renal failure: Status: Acute Plan Staph Epidermis Bacteremia leukocytosis trending down Negative Echo repeated cultures still negative On Daptomycin Pending ID eval BERNARD 2/2 Hypoperfusion, Drugs, ATN Cr of 9.7 today, trending down CPK less than 3000, unlikely No obstruction on images Continue hydration Keep Ortiz in Avoid nephrotoxins nephrology following, pending immune blood work Drug abuse seen by recovery team, Methadone PRN for now Hyponatremia due to BERNARD monitor BMP Hyperkalemia Lokelma as needed follow levels Hyperphosphatemia 2/2 BERNARD Add Sevelamer DVT PPx Heparin PAtient will need overnight hospital stay for treatment of BERNARD and bacteremia pending ID eval Time Spent With Patient Time: Total time managing care of this patient today ____ minutes. Quality Stroke Does the patient have a stroke diagnosis?: No VTE Prior VTE?: No VTE Risk Level:: Medical - moderate - high VTE Device Contraindication: N/A - Device Ordered VTE Drug Contraindication: N/A - Med Ordered
[2022-08-13] MEDS: Lactulose 20 GM/30 ML SOLUTION PO (13:23)
[2022-08-13] MEDS: Sevelamer Carbonate Tablet 800 MG TABLET PO ×2 (13:23→17:03)
[2022-08-13 15:36] VITALS: BP 127/79; PULSE 97; RESP 15; TEMP 36.2; O2SAT 96
[2022-08-13 19:05] VITALS: BP 134/81; PULSE 91; RESP 13; TEMP 36.4; O2SAT 96
[2022-08-13] MEDS: Acetaminophen 325 MG TABLET 975 MG PO (20:58)
[2022-08-13] MEDS: Doxycycline Monohydrate 100 MG CAPSULE PO (20:58)
[2022-08-13 21:33] VITALS: RESP 18
[2022-08-14] VITALS (7 sets, daily range): BP systolic 137–146; BP diastolic 62–84; PULSE 67–96; RESP 14–20; TEMP 36.3–36.6; O2SAT 95–99
[2022-08-14] MEDS: Morphine Sulfate 2 MG/ML CARTRIDGE IVPUSH ×5 (02:03→21:35)
[2022-08-14] MEDS: Omeprazole 40 MG CAPSULE.DR PO (05:58)
[2022-08-14 07:04] LABS: Hematocrit 31.5 % (42.0-52.0); Hemoglobin 11.4 g/dl (14.0-18.0); Mean Corpuscular HGB Conc 36.2 g/dl (31.0-36.0); Mean Corpuscular Volume 82.9 fL (80.0-98.0); Platelet Count 285 X10*3/uL (160-400); White Blood Count 15.2 X10*3/uL (4.8-10.8)
[2022-08-14 07:32] LABS: Anion Gap 20 (12-20); Carbon Dioxide 19 mmol/L (22-29); Chloride 99 mmol/L (96-108); Glucose Random 148 mg/dL (60-115); Potassium 3.5 mmol/L (3.3-5.1); Sodium 134 mmol/L (135-145)
[2022-08-14 07:33] LABS: Calcium 6.7 mg/dL (8.4-10.2)
[2022-08-14 07:34] LABS: Creatinine Clr Calc Pharmacy 10.3; Estimated Glomerular Filt Rate 7
[2022-08-14 07:40] LABS: Blood Urea Nitrogen 145 mg/dL (9-16)
[2022-08-14] MEDS: amLODIPine Besylate 10 MG TABLET PO (07:40)
[2022-08-14] MEDS: Multivitamin TABLET 1 TAB PO (07:40)
[2022-08-14] MEDS: Nicotine 14 MG PATCH.TD24 TRANSDERMA (07:41)
[2022-08-14] MEDS: Heparin Sodium,Porcine 5,000 UNIT/ML VIAL 5000 UNIT SUBCUT ×2 (07:42→21:20)
[2022-08-14] MEDS: Thiamine HCL 100 MG TABLET PO (07:52)
[2022-08-14 08:23] LABS: Methyl Alcohol NONE DETECTED
[2022-08-14] MEDS: 0.9 % Sodium Chloride 1,000 ML 100 ML IVCONT ×2 (08:53→17:48)
--- NOTE | 2022-08-14 10:22 | P.PNIM_ITS ---
Subjective Subjective Date of Service: 08/14/22 Interval History: Seen in f/u for BERNARD, bacteremia interval history: c/o indigestion and refusing to take meds Physical Exam Vital Signs: Vital Signs: Last Vital Signs Temp 97.7 F 08/14/22 07:47 Pulse 92 08/14/22 07:47 Resp 20 08/14/22 07:47 BP 141/82 H 08/14/22 07:47 Pulse Ox 95 08/14/22 07:47 O2 Del Method Room Air 08/14/22 07:47 BMI result Body Mass Index 25.7 Const: Other: General: AO X 3, no acute distress Resp: CTA bilateral CVS: S1,S2,RRR GI: +BS, NT, no distention Skin: No rash Neuro: motor grossly intact Psych: appropriate affect Objective Data Active Medications Acetaminophen (Acetaminophen 325 Mg Tablet) 975 mg PO Q6H PRN PRN Reason: Fever Last Admin: 08/13/22 20:58 Dose: 975 mg Documented By: OPAL Amlodipine Besylate (Amlodipine Besylate 10 Mg Tablet) 10 mg PO DAILY [facility]; Protocol Last Admin: 08/14/22 07:40 Dose: 10 mg Documented By: UCHE Bupropion HCl (Bupropion Hcl 100 Mg Tablet) 100 mg PO BID [facility] Last Admin: 08/14/22 09:02 Dose: Not Given Documented By: UCHE Non-Admin Reason: Patient Refused Docusate Sodium (Docusate Sodium 100 Mg Capsule) 100 mg PO BID [facility] Last Admin: 08/14/22 09:02 Dose: Not Given Documented By: UCHE Non-Admin Reason: Patient Refused Doxycycline Monohydrate (Doxycycline Monohydrate 100 Mg Capsule) 100 mg PO BID [facility] Last Admin: 08/14/22 09:02 Dose: Not Given Documented By: UCHE Non-Admin Reason: Patient Refused Heparin Sodium (Porcine) (Heparin Sodium,Porcine 5,000 Unit/Ml Vial) 5,000 unit SUBCUT Q12H [facility] Last Admin: 08/14/22 07:42 Dose: 5,000 unit Documented By: UCHE Hydroxyzine HCl (Hydroxyzine Hcl 50 Mg Tablet) 50 mg PO Q6H PRN PRN Reason: anxiety Sodium Chloride (Ns) 1,000 mls @ 100 mls/hr IVCONT .Q10H [facility] Last Admin: 08/14/22 08:53 Dose: 100 mls/hr Documented By: UCHE Daptomycin 635 mg/ Sodium (Chloride) 62.7 mls @ 100 mls/hr IV Q48H [facility] Lactulose (Lactulose 20 Gm/30 Ml Solution) 20 gm PO TID [facility] Last Admin: 08/14/22 08:02 Dose: Not Given Documented By: UCHE Non-Admin Reason: Patient Refused Methadone HCl (Methadone Hcl 20 Mg/2 Ml Oral.Conc) 10 mg PO Q4H PRN PRN Reason: Opiate Withdrawal Midazolam HCl (Midazolam Hcl/Pf 2 Mg/2 Ml Vial) 1 mg IVPUSH Q3H PRN PRN Reason: anxiety Last Admin: 08/11/22 02:27 Dose: 1 mg Documented By: ROJAS Morphine Sulfate (Morphine Sulfate 2 Mg/Ml Cartridge) 2 mg IVPUSH Q4H PRN; Protocol PRN Reason: Pain, Severe (Pain Scale 7-10) Last Admin: 08/14/22 07:42 Dose: 2 mg Documented By: UCHE Multivitamins/Vitamin C (Multivitamin Tablet) 1 tab PO DAILY [facility] Last Admin: 08/14/22 07:40 Dose: 1 tab Documented By: UCHE Nicotine (Nicotine 14 Mg Patch.Td24) 14 mg TRANSDERMA DAILY [facility] Last Admin: 08/14/22 07:41 Dose: 14 mg Documented By: UCHE Omeprazole (Omeprazole 40 Mg Capsule.Dr) 40 mg PO DAILY@0630 [facility] Last Admin: 08/14/22 05:58 Dose: 40 mg Documented By: OPAL Ondansetron HCl (Ondansetron Hcl 4 Mg/2 Ml Vial) 4 mg IVPUSH Q4H PRN PRN Reason: Nausea Last Admin: 08/10/22 21:49 Dose: 4 mg Documented By: MARIA ALEJANDRA Quetiapine Fumarate (Quetiapine Fumarate 200 Mg Tablet) 200 mg PO BEDTIME [facility] Last Admin: 08/13/22 20:59 Dose: Not Given Documented By: OPAL Non-Admin Reason: Patient Refused Sevelamer Carbonate (Sevelamer Carbonate Tablet 800 Mg Tablet) 800 mg PO TIDWM [facility] Last Admin: 08/14/22 09:01 Dose: Not Given Documented By: UCHE Non-Admin Reason: Patient Refused Thiamine HCl (Thiamine Hcl 100 Mg Tablet) 100 mg PO DAILY [facility] Last Admin: 08/14/22 07:52 Dose: 100 mg Documented By: UCHE Trazodone HCl (Trazodone Hcl 50 Mg Tablet) 150 mg PO BEDTIME [facility] Last Admin: 08/13/22 20:58 Dose: Not Given Documented By: OPAL Non-Admin Reason: Patient Refused Labs 08/14/22 06:55 08/14/22 06:55 Labs: Laboratory Results - last 24 hr 08/10/22 08/14/22 08/14/22 04:08 06:55 06:55 MCV 82.9 MCH 30.0 MCHC 36.2 H RDW 14.0 Plt Count 285 MPV 9.0 L Absolute Nucleated RBC 0.000 Nucleated RBC % (auto) 0.0 Anion Gap 20 Estim Creat Clear Calc 10.3 Estimated GFR 7 Random Glucose 148 H Calcium 6.7 L Methyl Alcohol Level NONE DETECTED Microbiology Microbiology Results: Microbiology 08/11/22 13:26 Blood Culture - Preliminary Blood - Venous No growth after 48 hours. 08/10/22 01:08 Blood Culture - Final Blood - Venous Staphylococcus epidermidis 08/10/22 01:08 Blood Culture - Final Blood - Venous Staphylococcus epidermidis Assessment and Plan (1) Opioid use disorder: Status: Acute (2) Polysubstance abuse: Status: Acute (3) Hyponatremia: Status: Acute (4) Acute hyperkalemia: Status: Acute (5) Acute renal failure: Status: Acute Plan 49/m with Staph Epidermis Bacteremia leukocytosis trending down Negative Echo repeated cultures still negative On Daptomycin Pending ID eval BERNARD 2/2 Hypoperfusion, Drugs, ATN Cr of 8.6 today, trending down CPK less than 3000, unlikely No obstruction on images Continue hydration Keep Ortiz in Avoid nephrotoxins nephrology following, pending immune blood work, he may need Bx Drug abuse seen by recovery team, Methadone PRN for now Hyponatremia--improving Hyperkalemia Lokelma as needed follow levels Hyperphosphatemia 2/2 BERNARD Add Sevelamer DVT PPx Heparin Need for inpatientr treatment of BERNARD and bacteremia pending ID eval , at this point his condition cannot be managed at home Time Spent With Patient Time: Total time managing care of this patient today ____ minutes. Quality Stroke Does the patient have a stroke diagnosis?: No VTE Prior VTE?: No VTE Risk Level:: Medical - moderate - high VTE Device Contraindication: N/A - Device Ordered VTE Drug Contraindication: N/A - Med Ordered
[2022-08-14 13:38] LABS: Anti Glomerular Basement Memb <1.0 AI; Myeloperoxidase Antibody <1.0 AI; Proteinase 3 PR3 Antibodies <1.0 AI
--- NOTE | 2022-08-14 14:31 | PM.PNNEP ---
Subjective Subjective Date of Service: 08/14/22 Interval history: Has been refusing to take medications. All recent data reviewed Physical Exam Vital Signs: Vital Signs: Last Vital Signs Temp 97.5 F 08/14/22 12:00 Pulse 67 08/14/22 12:00 Resp 20 08/14/22 12:00 BP 139/62 08/14/22 12:00 Pulse Ox 99 08/14/22 12:00 O2 Del Method Room Air 08/14/22 12:00 BMI result Body Mass Index 25.7 Const: General: no acute distress Orientation/consciousness: patient oriented x3 Eyes: EOM: EOMs intact bilaterally Resp: Auscultation: diminished lung sounds Cardio: Rate: regular rate GI: Palpation (GI): Soft to palpation Neuro: General: patient oriented x3 Objective Data Labs 08/14/22 06:55 08/14/22 06:55 Labs: Laboratory Results - last 24 hr 08/10/22 08/12/22 08/14/22 04:08 09:10 06:55 WBC 15.2 H RBC 3.80 L Hgb 11.4 L Hct 31.5 L MCV 82.9 MCH 30.0 MCHC 36.2 H RDW 14.0 Plt Count 285 MPV 9.0 L Absolute Nucleated RBC 0.000 Nucleated RBC % (auto) 0.0 Sodium Potassium Chloride Carbon Dioxide Anion Gap BUN Creatinine Estim Creat Clear Calc Estimated GFR Random Glucose Calcium Methyl Alcohol Level NONE DETECTED Proteinase 3 (PR3) Ab <1.0 Myeloperoxidase Ab <1.0 Glomerular Base Memb Ab <1.0 08/14/22 06:55 WBC RBC Hgb Hct MCV MCH MCHC RDW Plt Count MPV Absolute Nucleated RBC Nucleated RBC % (auto) Sodium 134 L Potassium 3.5 Chloride 99 Carbon Dioxide 19 L Anion Gap 20 BUN 145 H Creatinine 8.62 H* Estim Creat Clear Calc 10.3 Estimated GFR 7 Random Glucose 148 H Calcium 6.7 L Methyl Alcohol Level Proteinase 3 (PR3) Ab Myeloperoxidase Ab Glomerular Base Memb Ab Microbiology Microbiology Results: Microbiology 08/11/22 13:26 Blood - Venous Blood Culture - Preliminary No growth after 48 hours. 08/10/22 01:08 Blood - Venous Blood Culture - Final Staphylococcus epidermidis 08/10/22 01:08 Blood - Venous Blood Culture - Final Staphylococcus epidermidis 08/11/22 12:23 Blood - Venous Blood Culture - Final Procedures Date of Service Date of Service: 08/14/22 Assessment & Plan Assessment and plan (1) Acute renal failure: Status: Acute Assessment and Plan: BERNARD due to tubular injury Has rhabdomyolysis H/O IV heroin use and Hep C positive? Renal functions better; Continue ? with supportive care No indication for kidney biopsy/ dialysis now; Labs AM Progress Note: Quality Stroke Does the patient have a stroke diagnosis?: No
--- NOTE | 2022-08-14 14:58 | MHC.CM.PN ---
Addendum entered by Myla Rodriguez 08/14/22 15:01: CM WILL CONTINUE TO FOLLOW FOR PLAN Original Note: CM ATTEMPTED TO MEET WITH PT REGARDING FURTHER INTAKE ASSESSMENT BUT PT DECLINED TO ANSWER QUESTIONS. PER MD ROUNDS PT NOT MEDICALLY CLEARED FOR DC(BERNARD, 1:1 SITTER)
[2022-08-14] MEDS: Sevelamer Carbonate Tablet 800 MG TABLET PO (15:27)
[2022-08-14 15:39] LABS: Complement C3 104 mg/dL (82-185)
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
--- NOTE | 2022-08-14 16:09 | PM.EVENT ---
Event Note Date of Service: 08/14/22 Event Note: stop iv Daptomycin Time Spent With Patient Time: Total time managing care of this patient today ____ minutes.
[2022-08-14] MEDS: QUEtiapine Fumarate 200 MG TABLET PO (21:17)
[2022-08-14] MEDS: traZODone HCL 50 MG TABLET 150 MG PO (21:19)
[2022-08-14] MEDS: Doxycycline Monohydrate 100 MG CAPSULE PO (21:20)
[2022-08-14] MEDS: buPROPion HCL 100 MG TABLET PO (21:20)
[2022-08-14] MEDS: Docusate Sodium 100 MG CAPSULE PO (21:20)
[2022-08-14 22:28] LABS: Prot Elec - Albumin 2.7 g/dL (3.8-4.8); Prot Elec - Alpha1 0.6 g/dL (0.2-0.3); Prot Elec - Alpha2 0.8 g/dL (0.5-0.9); Prot Elec - Beta 1 0.3 g/dL (0.4-0.6); Prot Elec - Beta 2 0.3 g/dL (0.2-0.5); Prot Elec - Gamma 0.7 g/dL (0.8-1.7); Prot Elec - Total Protein 5.4 g/dL (6.1-8.1)
[2022-08-15] VITALS (9 sets, daily range): BP systolic 128–153; BP diastolic 72–90; PULSE 83–104; RESP 18–22; TEMP 36.7–37.3; O2SAT 95–98
[2022-08-15] MEDS: Morphine Sulfate 2 MG/ML CARTRIDGE IVPUSH ×5 (03:21→21:42)
[2022-08-15] MEDS: Omeprazole 40 MG CAPSULE.DR PO (06:33)
[2022-08-15] MEDS: 0.9 % Sodium Chloride 1,000 ML 100 ML IVCONT (06:35)
--- NOTE | 2022-08-15 07:29 | P.PNIM_ITS ---
Subjective Subjective Date of Service: 08/15/22 Interval History: Seen in f/u for BERNARD, bacteremia interval history: c/o adominal pain, indigestion Physical Exam Vital Signs: Vital Signs: Last Vital Signs Temp 98.8 F 08/15/22 04:00 Pulse 100 08/15/22 04:00 Resp 18 08/15/22 04:00 BP 141/72 H 08/15/22 04:00 Pulse Ox 96 08/15/22 04:00 O2 Del Method Room Air 08/15/22 04:00 BMI result Body Mass Index 25.7 Const: Other: General: AO X 3, no acute distress Resp: CTA bilateral CVS: S1,S2,RRR GI: +BS, NT, no distention Skin: No rash Neuro: motor grossly intact Psych: appropriate affect Objective Data Active Medications Acetaminophen (Acetaminophen 325 Mg Tablet) 975 mg PO Q6H PRN PRN Reason: Fever Last Admin: 08/13/22 20:58 Dose: 975 mg Documented By: OPAL Al Hydroxide/Mg Hydroxide (Magnesium Hydrox/Alum Hydrox 30 Ml Oral.Susp) 30 ml PO Q6H PRN PRN Reason: GI Upset Amlodipine Besylate (Amlodipine Besylate 10 Mg Tablet) 10 mg PO DAILY [facility]; Protocol Last Admin: 08/14/22 07:40 Dose: 10 mg Documented By: UCHE Bupropion HCl (Bupropion Hcl 100 Mg Tablet) 100 mg PO BID [facility] Last Admin: 08/14/22 21:20 Dose: 100 mg Documented By: DEQUAN Docusate Sodium (Docusate Sodium 100 Mg Capsule) 100 mg PO BID [facility] Last Admin: 08/14/22 21:20 Dose: 100 mg Documented By: DEQUAN Doxycycline Monohydrate (Doxycycline Monohydrate 100 Mg Capsule) 100 mg PO BID [facility] Last Admin: 08/14/22 21:20 Dose: 100 mg Documented By: DEQUAN Heparin Sodium (Porcine) (Heparin Sodium,Porcine 5,000 Unit/Ml Vial) 5,000 unit SUBCUT Q12H [facility] Last Admin: 08/14/22 21:20 Dose: 5,000 unit Documented By: DEQUAN Hydroxyzine HCl (Hydroxyzine Hcl 50 Mg Tablet) 50 mg PO Q6H PRN PRN Reason: anxiety Sodium Chloride (Ns) 1,000 mls @ 100 mls/hr IVCONT .Q10H [facility] Last Admin: 08/15/22 06:35 Dose: 100 mls/hr Documented By: DEQUAN Lactulose (Lactulose 20 Gm/30 Ml Solution) 20 gm PO TID [facility] Last Admin: 08/14/22 21:21 Dose: Not Given Documented By: DEQUAN Non-Admin Reason: Patient Refused Methadone HCl (Methadone Hcl 20 Mg/2 Ml Oral.Conc) 10 mg PO Q4H PRN PRN Reason: Opiate Withdrawal Midazolam HCl (Midazolam Hcl/Pf 2 Mg/2 Ml Vial) 1 mg IVPUSH Q3H PRN PRN Reason: anxiety Last Admin: 08/11/22 02:27 Dose: 1 mg Documented By: ROJAS Morphine Sulfate (Morphine Sulfate 2 Mg/Ml Cartridge) 2 mg IVPUSH Q4H PRN; Protocol PRN Reason: Pain, Severe (Pain Scale 7-10) Last Admin: 08/15/22 03:21 Dose: 2 mg Documented By: DEQUAN Multivitamins/Vitamin C (Multivitamin Tablet) 1 tab PO DAILY [facility] Last Admin: 08/14/22 07:40 Dose: 1 tab Documented By: UCHE Nicotine (Nicotine 14 Mg Patch.Td24) 14 mg TRANSDERMA DAILY [facility] Last Admin: 08/14/22 07:41 Dose: 14 mg Documented By: UCHE Omeprazole (Omeprazole 40 Mg Capsule.Dr) 40 mg PO DAILY@0630 [facility] Last Admin: 08/15/22 06:33 Dose: 40 mg Documented By: DEQUAN Ondansetron HCl (Ondansetron Hcl 4 Mg/2 Ml Vial) 4 mg IVPUSH Q4H PRN PRN Reason: Nausea Last Admin: 08/10/22 21:49 Dose: 4 mg Documented By: MARIA ALEJANDRA Quetiapine Fumarate (Quetiapine Fumarate 200 Mg Tablet) 200 mg PO BEDTIME [facility] Last Admin: 08/14/22 21:17 Dose: 100 mg Documented By: DEQUAN Comments: per pt request Sevelamer Carbonate (Sevelamer Carbonate Tablet 800 Mg Tablet) 800 mg PO TIDWM [facility] Last Admin: 08/14/22 15:27 Dose: 800 mg Documented By: CARMENCITA Thiamine HCl (Thiamine Hcl 100 Mg Tablet) 100 mg PO DAILY [facility] Last Admin: 08/14/22 07:52 Dose: 100 mg Documented By: UCHE Trazodone HCl (Trazodone Hcl 50 Mg Tablet) 150 mg PO BEDTIME [facility] Last Admin: 08/14/22 21:19 Dose: 100 mg Documented By: DEQUAN Comments: per pt request Labs 08/14/22 06:55 08/14/22 06:55 Labs: Laboratory Results - last 24 hr 08/10/22 08/12/22 08/14/22 04:08 09:10 06:55 Anion Gap 20 Estim Creat Clear Calc 10.3 Estimated GFR 7 Random Glucose 148 H Calcium 6.7 L Total Protein (PEP) 5.4 L Albumin (PEP) 2.7 L Hjaqx-3-Iimyofncd 0.6 H Usgek-2-Qzrxmqkvm 0.8 Dler-5-Gnrbkerg 0.3 L Hwvf-2-Fqvngnbr 0.3 Gamma Globulins 0.7 L PEP Interpretation SEE NOTE Methyl Alcohol Level NONE DETECTED Proteinase 3 (PR3) Ab <1.0 Myeloperoxidase Ab <1.0 Glomerular Base Memb Ab <1.0 Complement C3 104 Complement C4 19 Assessment and Plan (1) Opioid use disorder: Status: Acute (2) Polysubstance abuse: Status: Acute (3) Hyponatremia: Status: Acute (4) Acute hyperkalemia: Status: Acute (5) Acute renal failure: Status: Acute Plan 47/m with Staph Epidermis Bacteremia leukocytosis trending down Negative Echo repeated negative was on Vanco, then Dapto--both stopped by ID for likely contamination and now on PO Doxy BERNARD 2/2 Hypoperfusion, Drugs, ATN Cr of 6.8 today, trending down CPK less than 3000, unlikely No obstruction on images Continue hydration Keep Ortiz in Avoid nephrotoxins nephrology following, pending immune blood work, he may need Bx but for now no need for dialysis Drug abuse seen by recovery team, Methadone PRN for now abdominal pian indigestion not new mailox, morphine for pain Hyponatremia--improving Hyperkalemia Lokelma as needed follow levels Hyperphosphatemia 2/2 BERNARD Add Sevelamer DVT PPx Heparin Need for inpatientr treatment of BERNARD and bacteremia pending ID eval , at this point his condition cannot be managed at home Time Spent With Patient Time: Total time managing care of this patient today ____ minutes. Quality Stroke Does the patient have a stroke diagnosis?: No VTE Prior VTE?: No VTE Risk Level:: Medical - moderate - high VTE Device Contraindication: N/A - Device Ordered VTE Drug Contraindication: N/A - Med Ordered
[2022-08-15 08:21] LABS: Anion Gap 16 (12-20); Blood Urea Nitrogen 113 mg/dL (9-16); Calcium 6.4 mg/dL (8.4-10.2); Carbon Dioxide 20 mmol/L (22-29); Chloride 104 mmol/L (96-108); Estimated Glomerular Filt Rate 9; Glucose Random 147 mg/dL (60-115); Potassium 3.9 mmol/L (3.3-5.1); Sodium 136 mmol/L (135-145)
[2022-08-15] MEDS: Heparin Sodium,Porcine 5,000 UNIT/ML VIAL 5000 UNIT SUBCUT ×2 (09:26→21:42)
[2022-08-15] MEDS: Nicotine 14 MG PATCH.TD24 TRANSDERMA (09:26)
[2022-08-15] MEDS: ondansetron HCL 4 MG/2 ML VIAL IVPUSH ×2 (12:13→21:42)
--- NOTE | 2022-08-15 14:06 | PM.PNNEP ---
Subjective Subjective Date of Service: 08/15/22 Interval history: Events noted. All recent data reviewed Physical Exam Vital Signs: Vital Signs: Last Vital Signs Temp 98.0 F 08/15/22 12:00 Pulse 97 08/15/22 12:00 Resp 18 08/15/22 13:35 BP 153/90 H 08/15/22 12:00 Pulse Ox 97 08/15/22 12:00 O2 Del Method Room Air 08/15/22 12:00 BMI result Body Mass Index 25.7 Const: General: no acute distress Orientation/consciousness: patient oriented x3 Eyes: EOM: EOMs intact bilaterally Neck: Neck: Yes supple Resp: Auscultation: diminished lung sounds Cardio: Rate: regular rate GI: Palpation (GI): Soft to palpation Neuro: General: patient oriented x3 Objective Data Labs 08/14/22 06:55 08/15/22 07:43 Labs: Laboratory Results - last 24 hr 08/12/22 08/15/22 09:10 07:43 Sodium 136 Potassium 3.9 Chloride 104 Carbon Dioxide 20 L Anion Gap 16 BUN 113 H Creatinine 6.83 H* Estim Creat Clear Calc 13.0 Estimated GFR 9 Random Glucose 147 H Calcium 6.4 L Total Protein (PEP) 5.4 L Albumin (PEP) 2.7 L Tinsh-3-Yfrqpdpma 0.6 H Lfali-8-Ygklrktkg 0.8 Xtey-5-Dofkynfi 0.3 L Jujn-8-Mdxqupik 0.3 Gamma Globulins 0.7 L PEP Interpretation SEE NOTE Complement C3 104 Complement C4 19 Microbiology Microbiology Results: Microbiology 08/11/22 13:26 Blood - Venous Blood Culture - Preliminary No growth after 48 hours. 08/10/22 01:08 Blood - Venous Blood Culture - Final Staphylococcus epidermidis 08/10/22 01:08 Blood - Venous Blood Culture - Final Staphylococcus epidermidis 08/11/22 12:23 Blood - Venous Blood Culture - Final Procedures Date of Service Date of Service: 08/15/22 Assessment & Plan Assessment and plan (1) Acute renal failure: Status: Acute Assessment and Plan: BERNARD due to tubular injury Has rhabdomyolysis H/O IV heroin use and Hep C positive? Renal functions better; Continue ? with supportive care No indication for? kidney biopsy/ dialysis now; Labs AM Progress Note: Quality Stroke Does the patient have a stroke diagnosis?: No
[2022-08-15] MEDS: Sevelamer Carbonate Tablet 800 MG TABLET PO (16:19)
[2022-08-15] MEDS: traZODone HCL 50 MG TABLET 150 MG PO (21:48)
[2022-08-15] MEDS: Doxycycline Monohydrate 100 MG CAPSULE PO (21:49)
[2022-08-16] MEDS: Omeprazole 40 MG CAPSULE.DR PO (06:25)
[2022-08-16] MEDS: Morphine Sulfate 2 MG/ML CARTRIDGE IVPUSH ×5 (06:25→21:36)
[2022-08-16 07:45] VITALS: BP 137/67; PULSE 82; RESP 20; TEMP 37.1; O2SAT 97
--- NOTE | 2022-08-16 11:00 | P.PNIM_ITS ---
Subjective Subjective Date of Service: 08/16/22 Interval History: Seen and evaluated Complaining of abdominal pain and diarrhea Cr trending down no more fever No other overnight events Review of Systems Review of Systems: Yes all other systems are reviewed and are negative Physical Exam Vital Signs: Vital Signs: Last Vital Signs Temp 98.8 F 08/16/22 07:45 Pulse 82 08/16/22 07:45 Resp 20 08/16/22 07:45 BP 137/67 08/16/22 07:45 Pulse Ox 97 08/16/22 07:45 O2 Del Method Room Air 08/16/22 07:45 BMI result Body Mass Index 25.7 Const: Other: Constitutional : Awake, not in distress Neck : Normal inspection, Supple Cardiovascular : RRR, no JVP, no lower extremity edema Respiratory : good bilateral air entry, no crackles, wheezes or rhonchi Gastrointestinal: soft, lax, Normal bowel sounds, generalized tenderness with no clear surgical signs Skin : Warm, Dry, multiple skin abrasions and scratch markings Neurological : Alert & oriented x3, No focal deficit Objective Data Active Medications Acetaminophen (Acetaminophen 325 Mg Tablet) 975 mg PO Q6H PRN PRN Reason: Fever Last Admin: 08/13/22 20:58 Dose: 975 mg Documented By: OPAL Al Hydroxide/Mg Hydroxide (Magnesium Hydrox/Alum Hydrox 30 Ml Oral.Susp) 30 ml PO Q6H PRN PRN Reason: GI Upset Amlodipine Besylate (Amlodipine Besylate 10 Mg Tablet) 10 mg PO DAILY [facility]; Protocol Last Admin: 08/16/22 09:28 Dose: Not Given Documented By: STACEY Non-Admin Reason: Patient Refused Bupropion HCl (Bupropion Hcl 100 Mg Tablet) 100 mg PO BID [facility] Last Admin: 08/16/22 09:28 Dose: Not Given Documented By: STACEY Non-Admin Reason: Patient Refused Calcium Carbonate (Calcium Carbonate 500 Mg Tablet) 500 mg PO BID [facility] Last Admin: 08/16/22 09:28 Dose: Not Given Documented By: STACEY Non-Admin Reason: Patient Refused Cyclobenzaprine HCl (Cyclobenzaprine Hcl 5 Mg Tablet) 5 mg PO TID [facility] Docusate Sodium (Docusate Sodium 100 Mg Capsule) 100 mg PO BID [facility] Last Admin: 08/16/22 09:28 Dose: Not Given Documented By: STACEY Non-Admin Reason: Patient Refused Doxycycline Monohydrate (Doxycycline Monohydrate 100 Mg Capsule) 100 mg PO BID [facility] Last Admin: 08/16/22 09:28 Dose: Not Given Documented By: STACEY Non-Admin Reason: Patient Refused Heparin Sodium (Porcine) (Heparin Sodium,Porcine 5,000 Unit/Ml Vial) 5,000 unit SUBCUT Q12H [facility] Last Admin: 08/16/22 09:28 Dose: Not Given Documented By: STACEY Non-Admin Reason: Patient Refused Hydroxyzine HCl (Hydroxyzine Hcl 50 Mg Tablet) 50 mg PO Q6H PRN PRN Reason: anxiety Lactulose (Lactulose 20 Gm/30 Ml Solution) 20 gm PO TID [facility] Last Admin: 08/16/22 09:29 Dose: Not Given Documented By: STACEY Non-Admin Reason: Patient Refused Methadone HCl (Methadone Hcl 20 Mg/2 Ml Oral.Conc) 10 mg PO Q4H PRN PRN Reason: Opiate Withdrawal Morphine Sulfate (Morphine Sulfate 2 Mg/Ml Cartridge) 2 mg IVPUSH Q4H PRN; Protocol PRN Reason: Pain, Severe (Pain Scale 7-10) Last Admin: 08/16/22 06:25 Dose: 2 mg Documented By: DEQUAN Multivitamins/Vitamin C (Multivitamin Tablet) 1 tab PO DAILY [facility] Last Admin: 08/16/22 09:29 Dose: Not Given Documented By: STACEY Non-Admin Reason: Patient Refused Nicotine (Nicotine 14 Mg Patch.Td24) 14 mg TRANSDERMA DAILY [facility] Last Admin: 08/15/22 09:26 Dose: 14 mg Documented By: STACEY Omeprazole (Omeprazole 40 Mg Capsule.Dr) 40 mg PO DAILY@0630 [facility] Last Admin: 08/16/22 06:25 Dose: 40 mg Documented By: DEQUAN Ondansetron HCl (Ondansetron Hcl 4 Mg/2 Ml Vial) 4 mg IVPUSH Q4H PRN PRN Reason: Nausea Last Admin: 08/15/22 21:42 Dose: 4 mg Documented By: DEQUAN Quetiapine Fumarate (Quetiapine Fumarate 200 Mg Tablet) 200 mg PO BEDTIME [facility] Last Admin: 08/15/22 21:50 Dose: Not Given Documented By: DEQUAN Non-Admin Reason: Patient Refused Sevelamer Carbonate (Sevelamer Carbonate Tablet 800 Mg Tablet) 800 mg PO TIDWM [facility] Last Admin: 08/16/22 09:28 Dose: Not Given Documented By: STACEY Non-Admin Reason: Patient Refused Thiamine HCl (Thiamine Hcl 100 Mg Tablet) 100 mg PO DAILY [facility] Last Admin: 08/16/22 09:29 Dose: Not Given Documented By: STACEY Non-Admin Reason: Patient Refused Trazodone HCl (Trazodone Hcl 50 Mg Tablet) 150 mg PO BEDTIME [facility] Last Admin: 08/15/22 21:48 Dose: 150 mg Documented By: DEQUAN Labs 08/14/22 06:55 08/15/22 07:43 Assessment and Plan (1) Staphylococcus epidermidis bacteremia: Status: Acute (2) Hyponatremia: Status: Acute (3) Acute hyperkalemia: Status: Acute (4) Acute renal failure: Status: Acute Plan 47/m with Hx HTN, substance abuse, Hep C, PTSD among others who was admitted for AMS, SI and significantly elevated Cr and acidemia requiring ICU stay. Staph Epidermis Bacteremia leukocytosis trending down Negative Echo repeated negative was on Vanco, then Dapto--both stopped by ID for likely contamination and now on PO Doxy for 1 week. BERNARD 2/2 Hypoperfusion, Drugs, ATN Cr trending down CPK less than 3000, unlikely No obstruction on images Continue hydration Keep Ortiz in Avoid nephrotoxins nephrology following, pending immune blood work, he may need Bx but for now no need for dialysis Drug abuse seen by recovery team, Methadone PRN for now abdominal pain with diarrhea Abnormal images on admissions with possible colitis repeat CT scan Stool studies get GI eval Pain management Hyponatremia resolved Hyperkalemia Lokelma as needed follow levels Hyperphosphatemia 2/2 BERNARD continue Sevelamer DVT PPx Heparin Need for inpatient treatment of BERNARD and bacteremia with further eval of abd pain , at this point his condition cannot be managed at home Time Spent With Patient Time: Total time managing care of this patient today ____ minutes. Quality Stroke Does the patient have a stroke diagnosis?: No VTE Prior VTE?: No VTE Risk Level:: Medical - moderate - high VTE Device Contraindication: N/A - Device Ordered VTE Drug Contraindication: N/A - Med Ordered
[2022-08-16] MEDS: Sevelamer Carbonate Tablet 800 MG TABLET PO ×2 (11:06→17:32)
[2022-08-16] MEDS: Cyclobenzaprine HCl 5 MG TABLET PO ×3 (11:06→19:51)
[2022-08-16] MEDS: ondansetron HCL 4 MG/2 ML VIAL IVPUSH (11:09)
[2022-08-16 11:39] LABS: Hematocrit 30.7 % (42.0-52.0); Hemoglobin 10.8 g/dl (14.0-18.0); Mean Corpuscular HGB Conc 35.2 g/dl (31.0-36.0); Mean Corpuscular Hemoglobin 29.9 pg (27.0-33.0); Mean Platelet Volume 8.8 fL (9.4-12.4); Platelet Count 387 X10*3/uL (160-400); Red Blood Count 3.61 X10*6/uL (4.60-5.80); Red Cell Distribution Width 14.2 % (11.0-16.0); White Blood Count 8.4 X10*3/uL (4.8-10.8)
[2022-08-16 11:41] VITALS: BP 158/83; PULSE 81; RESP 20; TEMP 36.6; O2SAT 99
--- NOTE | 2022-08-16 11:48 | PM.EVENT ---
Event Note Date of Service: 08/16/22 Event Note: GI consult dictated CT and clinical presentation c/w colitis, infectious or ischemic likely Stool testing pending, if neg can consider flex sig. Time Spent With Patient Time: Total time managing care of this patient today ____ minutes.
[2022-08-16 12:06] LABS: Alanine Aminotransferase 25 U/L (0-40); Albumin Level 2.4 g/dL (3.5-5.0); Alkaline Phosphatase 67 U/L (39-117); Anion Gap 14 (12-20); Aspartate Amino Transferase 14 U/L (5-37); Bilirubin Total 0.5 mg/dL (0.0-1.0); Blood Urea Nitrogen 76 mg/dL (9-16); C Reactive Protein 10.65 mg/dL (< or = 0.50); Calcium 6.6 mg/dL (8.4-10.2); Carbon Dioxide 20 mmol/L (22-29); Chloride 103 mmol/L (96-108); Creatinine Clr Calc Pharmacy 17.3; Estimated Glomerular Filt Rate 12; Glucose Random 118 mg/dL (60-115); Potassium 3.7 mmol/L (3.3-5.1); Sodium 133 mmol/L (135-145); Total Protein 4.8 g/dL (6.5-8.0)
[2022-08-16 12:14] LABS: Erythrocyte Sedimentation Rate 59 MM/HR (0-15)
[2022-08-16 15:25] VITALS: BP 149/80; PULSE 77; RESP 20; TEMP 37; O2SAT 99
--- NOTE | 2022-08-16 15:43 | PM.PNNEP ---
Subjective Subjective Date of Service: 08/16/22 Interval history: No other overnight events . All recent data reviewed Physical Exam Vital Signs: Vital Signs: Last Vital Signs Temp 98.6 F 08/16/22 15:25 Pulse 77 08/16/22 15:25 Resp 20 08/16/22 15:25 BP 149/80 H 08/16/22 15:25 Pulse Ox 99 08/16/22 15:25 O2 Del Method Room Air 08/16/22 15:25 BMI result Body Mass Index 25.7 Const: General: no acute distress Orientation/consciousness: patient oriented x3 Eyes: EOM: EOMs intact bilaterally Neck: Neck: Yes supple Resp: Auscultation: diminished lung sounds Cardio: Rate: regular rate GI: Palpation (GI): Soft to palpation Neuro: General: patient oriented x3 and moves all extremities Objective Data Labs 08/16/22 11:31 08/16/22 11:31 Labs: Laboratory Results - last 24 hr 08/16/22 08/16/22 08/16/22 11:31 11:31 11:31 WBC 8.4 RBC 3.61 L Hgb 10.8 L Hct 30.7 L MCV 85.0 MCH 29.9 MCHC 35.2 RDW 14.2 Plt Count 387 D MPV 8.8 L Absolute Nucleated RBC 0.000 Nucleated RBC % (auto) 0.0 ESR 59 H Sodium Cancelled Potassium Cancelled Chloride Cancelled Carbon Dioxide Cancelled Anion Gap Cancelled BUN Cancelled Creatinine Cancelled Estim Creat Clear Calc Cancelled Estimated GFR Cancelled Random Glucose Cancelled Calcium Cancelled Total Bilirubin AST ALT Alkaline Phosphatase C-Reactive Protein Total Protein Albumin 08/16/22 11:31 WBC RBC Hgb Hct MCV MCH MCHC RDW Plt Count MPV Absolute Nucleated RBC Nucleated RBC % (auto) ESR Sodium 133 L Potassium 3.7 Chloride 103 Carbon Dioxide 20 L Anion Gap 14 BUN 76 H Creatinine 5.15 H* Estim Creat Clear Calc 17.3 Estimated GFR 12 Random Glucose 118 H Calcium 6.6 L Total Bilirubin 0.5 AST 14 ALT 25 Alkaline Phosphatase 67 C-Reactive Protein 10.65 H Total Protein 4.8 L Albumin 2.4 L Microbiology Microbiology Results: Microbiology 08/11/22 13:26 Blood - Venous Blood Culture - Final No growth after 5 days. 08/10/22 01:08 Blood - Venous Blood Culture - Final Staphylococcus epidermidis 08/10/22 01:08 Blood - Venous Blood Culture - Final Staphylococcus epidermidis 08/11/22 12:23 Blood - Venous Blood Culture - Final Procedures Date of Service Date of Service: 08/16/22 Assessment & Plan Assessment and plan (1) Acute renal failure: Status: Acute Assessment and Plan: BERNARD due to tubular injury H/O IV heroin use and Hep C positive? Renal functions better; Continue ? with supportive care No indication for? kidney biopsy/ dialysis now; Labs AM Progress Note: Quality Stroke Does the patient have a stroke diagnosis?: No
[2022-08-16 16:21] LABS: CDiff Gene PCR NEGATIVE (Negative)
[2022-08-16 16:45] LABS: Leukocytes Stool Qualitative NEGATIVE (NEGATIVE)
[2022-08-16] MEDS: Acetaminophen 325 MG TABLET 975 MG PO (17:32)
[2022-08-16 19:08] VITALS: BP 135/82; PULSE 77; RESP 21; TEMP 36.4; O2SAT 98
[2022-08-16] MEDS: methADONE HCl 20 MG/2 ML ORAL.CONC 10 MG PO (19:52)
[2022-08-16] MEDS: QUEtiapine Fumarate 200 MG TABLET PO (21:36)
[2022-08-16] MEDS: Heparin Sodium,Porcine 5,000 UNIT/ML VIAL 5000 UNIT SUBCUT (21:36)
[2022-08-16] MEDS: Doxycycline Monohydrate 100 MG CAPSULE PO (21:36)
[2022-08-16] MEDS: traZODone HCL 50 MG TABLET 150 MG PO (21:36)
[2022-08-17 04:00] VITALS: BP 132/72; PULSE 92; RESP 15; TEMP 37.1; O2SAT 96
[2022-08-17] MEDS: Morphine Sulfate 2 MG/ML CARTRIDGE IVPUSH ×3 (04:41→20:59)
[2022-08-17] MEDS: Acetaminophen 325 MG TABLET 975 MG PO (04:41)
[2022-08-17] MEDS: Loperamide HCl 2 MG CAPSULE PO (06:36)
[2022-08-17] MEDS: Omeprazole 40 MG CAPSULE.DR PO (06:36)
[2022-08-17 07:17] VITALS: BP 126/65; PULSE 89; RESP 20; TEMP 36.4; O2SAT 97
[2022-08-17 08:17] LABS: Anion Gap 16 (12-20); Blood Urea Nitrogen 57 mg/dL (9-16); Calcium 6.7 mg/dL (8.4-10.2); Carbon Dioxide 21 mmol/L (22-29); Chloride 105 mmol/L (96-108); Creatinine Clr Calc Pharmacy 21.5; Estimated Glomerular Filt Rate 15; Glucose Random 111 mg/dL (60-115); Potassium 4.1 mmol/L (3.3-5.1); Sodium 138 mmol/L (135-145)
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
[2022-08-17] MEDS: Heparin Sodium,Porcine 5,000 UNIT/ML VIAL 5000 UNIT SUBCUT (09:42)
[2022-08-17] MEDS: buPROPion HCL 100 MG TABLET PO (09:43)
[2022-08-17] MEDS: amLODIPine Besylate 10 MG TABLET PO (09:43)
[2022-08-17] MEDS: Cyclobenzaprine HCl 5 MG TABLET PO ×3 (09:43→20:58)
[2022-08-17] MEDS: Multivitamin TABLET 1 TAB PO (09:43)
[2022-08-17] MEDS: Thiamine HCL 100 MG TABLET PO (09:43)
[2022-08-17] MEDS: Doxycycline Monohydrate 100 MG CAPSULE PO (09:44)
[2022-08-17] MEDS: Sevelamer Carbonate Tablet 800 MG TABLET PO ×3 (09:44→16:27)
[2022-08-17] MEDS: Nicotine 14 MG PATCH.TD24 TRANSDERMA (09:45)
--- NOTE | 2022-08-17 11:07 | MHC.RECOVRN ---
Met with pt in 478 to follow up and assess for withdrawal. Pt laying in bed, eyes closed, easily wakes to voice, somewhat difficult to engage. Pt reports using heroin, 30 bags daily. Has been on methadone in the past, unable to state when or where, however, reports dose was 75 mg. Pt received 10 mg methadone yesterday around 8PM, reports this was too little. Pt reports body aches, diaphoresis, anxiety. Pt requesting methadone initiation with once daily dosing. Discussed with Clotilde Pan APRN.
--- NOTE | 2022-08-17 11:10 | P.PNIM_ITS ---
Subjective Subjective Date of Service: 08/17/22 Interval History: Seen and evaluated Still complaining of abdominal pain and diarrhea Cr trending down still reporting suicidal thoughts No other overnight events Review of Systems Review of Systems: Yes all other systems are reviewed and are negative Physical Exam Vital Signs: Vital Signs: Last Vital Signs Temp 97.5 F 08/17/22 07:17 Pulse 89 08/17/22 07:17 Resp 20 08/17/22 07:17 BP 126/65 08/17/22 07:17 Pulse Ox 97 08/17/22 07:17 O2 Del Method Room Air 08/17/22 07:17 BMI result Body Mass Index 25.7 Const: Other: Constitutional : Awake, not in distress Neck : Normal inspection, Supple Cardiovascular : RRR, no JVP, no lower extremity edema Respiratory : good bilateral air entry, no crackles, wheezes or rhonchi Gastrointestinal: soft, lax, Normal bowel sounds, generalized tenderness with no clear surgical signs Skin : Warm, Dry, multiple skin abrasions and scratch markings Neurological : Alert & oriented x3, No focal deficit Objective Data Active Medications Acetaminophen (Acetaminophen 325 Mg Tablet) 975 mg PO Q6H PRN PRN Reason: Fever Last Admin: 08/17/22 04:41 Dose: 975 mg Documented By: MICHELLE Al Hydroxide/Mg Hydroxide (Magnesium Hydrox/Alum Hydrox 30 Ml Oral.Susp) 30 ml PO Q6H PRN PRN Reason: GI Upset Amlodipine Besylate (Amlodipine Besylate 10 Mg Tablet) 10 mg PO DAILY [facility]; Protocol Last Admin: 08/17/22 09:43 Dose: 10 mg Documented By: LEWIS Bupropion HCl (Bupropion Hcl 100 Mg Tablet) 100 mg PO BID [facility] Last Admin: 08/17/22 09:43 Dose: 100 mg Documented By: LEWIS Calcium Carbonate (Calcium Carbonate 500 Mg Tablet) 500 mg PO BID [facility] Last Admin: 08/17/22 09:43 Dose: 500 mg Documented By: LEWIS Cyclobenzaprine HCl (Cyclobenzaprine Hcl 5 Mg Tablet) 5 mg PO TID [facility] Last Admin: 08/17/22 09:43 Dose: 5 mg Documented By: LEWIS Docusate Sodium (Docusate Sodium 100 Mg Capsule) 100 mg PO BID [facility] Last Admin: 08/17/22 09:45 Dose: Not Given Documented By: LEWIS Non-Admin Reason: pt having diarrhea Doxycycline Monohydrate (Doxycycline Monohydrate 100 Mg Capsule) 100 mg PO BID [facility] Last Admin: 08/17/22 09:44 Dose: 100 mg Documented By: LEWIS Heparin Sodium (Porcine) (Heparin Sodium,Porcine 5,000 Unit/Ml Vial) 5,000 unit SUBCUT Q12H [facility] Last Admin: 08/17/22 09:42 Dose: 5,000 unit Documented By: LEWIS Hydroxyzine HCl (Hydroxyzine Hcl 50 Mg Tablet) 50 mg PO Q6H PRN PRN Reason: anxiety Lactulose (Lactulose 20 Gm/30 Ml Solution) 20 gm PO TID [facility] Last Admin: 08/17/22 09:45 Dose: Not Given Documented By: LEWIS Non-Admin Reason: pt having diarrhea Loperamide HCl (Loperamide Hcl 2 Mg Capsule) 2 mg PO Q4H PRN PRN Reason: diarrhea Last Admin: 08/17/22 06:36 Dose: 2 mg Documented By: MICHELLE Methadone HCl (Methadone Hcl 20 Mg/2 Ml Oral.Conc) 10 mg PO Q4H PRN PRN Reason: Opiate Withdrawal Last Admin: 08/16/22 19:52 Dose: 10 mg Documented By: MICHELLE Morphine Sulfate (Morphine Sulfate 2 Mg/Ml Cartridge) 2 mg IVPUSH Q3H PRN; Protocol PRN Reason: Pain, Severe (Pain Scale 7-10) Last Admin: 08/17/22 04:41 Dose: 2 mg Documented By: MICHELLE Multivitamins/Vitamin C (Multivitamin Tablet) 1 tab PO DAILY [facility] Last Admin: 08/17/22 09:43 Dose: 1 tab Documented By: LEWIS Nicotine (Nicotine 14 Mg Patch.Td24) 14 mg TRANSDERMA DAILY [facility] Last Admin: 08/17/22 09:45 Dose: 14 mg Documented By: LEWIS Omeprazole (Omeprazole 40 Mg Capsule.Dr) 40 mg PO DAILY@0630 [facility] Last Admin: 08/17/22 06:36 Dose: 40 mg Documented By: MICHELLE Ondansetron HCl (Ondansetron Hcl 4 Mg/2 Ml Vial) 4 mg IVPUSH Q4H PRN PRN Reason: Nausea Last Admin: 08/16/22 11:09 Dose: 4 mg Documented By: STACEY Quetiapine Fumarate (Quetiapine Fumarate 200 Mg Tablet) 200 mg PO BEDTIME [facility] Last Admin: 08/16/22 21:36 Dose: 200 mg Documented By: MICHELLE Sevelamer Carbonate (Sevelamer Carbonate Tablet 800 Mg Tablet) 800 mg PO TIDWM [facility] Last Admin: 08/17/22 09:44 Dose: 800 mg Documented By: CTORRJong Thiamine HCl (Thiamine Hcl 100 Mg Tablet) 100 mg PO DAILY [facility] Last Admin: 08/17/22 09:43 Dose: 100 mg Documented By: CTORRJong Trazodone HCl (Trazodone Hcl 50 Mg Tablet) 150 mg PO BEDTIME [facility] Last Admin: 08/16/22 21:36 Dose: 150 mg Documented By: MICHELLE Labs 08/16/22 11:31 08/17/22 07:21 Labs: Laboratory Results - last 24 hr 08/16/22 08/16/22 08/16/22 11:31 11:31 11:31 MCV 85.0 MCH 29.9 MCHC 35.2 RDW 14.2 Plt Count 387 D MPV 8.8 L Absolute Nucleated RBC 0.000 Nucleated RBC % (auto) 0.0 ESR 59 H Anion Gap Cancelled Estim Creat Clear Calc Cancelled Estimated GFR Cancelled Random Glucose Cancelled Calcium Cancelled Total Bilirubin AST ALT Alkaline Phosphatase C-Reactive Protein Total Protein Albumin Stool Leukocytes, Qual C. difficile Tox B Gene 08/16/22 08/16/22 08/16/22 11:31 15:00 15:00 MCV MCH MCHC RDW Plt Count MPV Absolute Nucleated RBC Nucleated RBC % (auto) ESR Anion Gap 14 Estim Creat Clear Calc 17.3 Estimated GFR 12 Random Glucose 118 H Calcium 6.6 L Total Bilirubin 0.5 AST 14 ALT 25 Alkaline Phosphatase 67 C-Reactive Protein 10.65 H Total Protein 4.8 L Albumin 2.4 L Stool Leukocytes, Qual NEGATIVE C. difficile Tox B Gene NEGATIVE 08/17/22 07:21 MCV MCH MCHC RDW Plt Count MPV Absolute Nucleated RBC Nucleated RBC % (auto) ESR Anion Gap 16 Estim Creat Clear Calc 21.5 Estimated GFR 15 Random Glucose 111 Calcium 6.7 L Total Bilirubin AST ALT Alkaline Phosphatase C-Reactive Protein Total Protein Albumin Stool Leukocytes, Qual C. difficile Tox B Gene Microbiology Microbiology Results: Microbiology 08/11/22 13:26 Blood Culture - Final Blood - Venous No growth after 5 days. Assessment and Plan (1) Staphylococcus epidermidis bacteremia: Status: Acute (2) Polysubstance abuse: Status: Acute (3) Hyponatremia: Status: Acute (4) Acute renal failure: Status: Acute Plan 47/m with Hx HTN, substance abuse, Hep C, PTSD among others who was admitted for AMS, SI and significantly elevated Cr and acidemia requiring ICU stay. Staph Epidermis Bacteremia leukocytosis trending down Negative Echo repeated negative was on Vanco, then Dapto--both stopped by ID for likely contamination and now on PO Doxy for 1 week. 08/20 BERNARD 2/2 Hypoperfusion, Drugs, ATN, Hep C Cr trending down DC Ortiz Avoid nephrotoxins nephrology following, pending immune blood work, no need for dialysis Drug abuse seen by recovery team, Methadone PRN for now abdominal pain with diarrhea Abnormal images on admissions with possible colitis repeat CT scan Stool studies GI eval Pain management Hyponatremia resolved Hyperkalemia Lokelma as needed follow levels Hyperphosphatemia 2/2 BERNARD continue Sevelamer DVT PPx Heparin Need for inpatient treatment of BERNARD and bacteremia, SI with further eval of abd pain , at this point his condition cannot be managed at home Time Spent With Patient Time: Total time managing care of this patient today ____ minutes. Quality Stroke Does the patient have a stroke diagnosis?: No VTE Prior VTE?: No VTE Risk Level:: Medical - moderate - high VTE Device Contraindication: N/A - Device Ordered VTE Drug Contraindication: N/A - Med Ordered
--- NOTE | 2022-08-17 11:16 | MHC.CM.PN ---
EMR REVIEWED, PER HOSPITALIST PT IMPROVING MEDICALLY HOWEVER WILL NEED CARE TEAM TO CLEAR D/T +SI, CM WILL CONT TO FOLLOW D/C NEEDS.
--- NOTE | 2022-08-17 11:23 | PM.PNNEP ---
Subjective Subjective Date of Service: 08/17/22 Interval history: No other overnight events . All recent data reviewed Physical Exam Vital Signs: Vital Signs: Last Vital Signs Temp 97.5 F 08/17/22 07:17 Pulse 89 08/17/22 07:17 Resp 20 08/17/22 07:17 BP 126/65 08/17/22 07:17 Pulse Ox 97 08/17/22 07:17 O2 Del Method Room Air 08/17/22 07:17 BMI result Body Mass Index 25.7 Const: General: comfortable Orientation/consciousness: patient oriented x3 Eyes: EOM: EOMs intact bilaterally Neck: Neck: Yes supple Resp: Auscultation: diminished lung sounds Cardio: Rate: regular rate GI: Palpation (GI): Soft to palpation Neuro: General: patient oriented x3 and moves all extremities Objective Data Labs 08/16/22 11:31 08/17/22 07:21 Labs: Laboratory Results - last 24 hr 08/16/22 08/16/22 08/16/22 11:31 11:31 11:31 WBC 8.4 RBC 3.61 L Hgb 10.8 L Hct 30.7 L MCV 85.0 MCH 29.9 MCHC 35.2 RDW 14.2 Plt Count 387 D MPV 8.8 L Absolute Nucleated RBC 0.000 Nucleated RBC % (auto) 0.0 ESR 59 H Sodium Cancelled Potassium Cancelled Chloride Cancelled Carbon Dioxide Cancelled Anion Gap Cancelled BUN Cancelled Creatinine Cancelled Estim Creat Clear Calc Cancelled Estimated GFR Cancelled Random Glucose Cancelled Calcium Cancelled Total Bilirubin AST ALT Alkaline Phosphatase C-Reactive Protein Total Protein Albumin Stool Leukocytes, Qual C. difficile Tox B Gene 08/16/22 08/16/22 08/16/22 11:31 15:00 15:00 WBC RBC Hgb Hct MCV MCH MCHC RDW Plt Count MPV Absolute Nucleated RBC Nucleated RBC % (auto) ESR Sodium 133 L Potassium 3.7 Chloride 103 Carbon Dioxide 20 L Anion Gap 14 BUN 76 H Creatinine 5.15 H* Estim Creat Clear Calc 17.3 Estimated GFR 12 Random Glucose 118 H Calcium 6.6 L Total Bilirubin 0.5 AST 14 ALT 25 Alkaline Phosphatase 67 C-Reactive Protein 10.65 H Total Protein 4.8 L Albumin 2.4 L Stool Leukocytes, Qual NEGATIVE C. difficile Tox B Gene NEGATIVE 08/17/22 07:21 WBC RBC Hgb Hct MCV MCH MCHC RDW Plt Count MPV Absolute Nucleated RBC Nucleated RBC % (auto) ESR Sodium 138 Potassium 4.1 Chloride 105 Carbon Dioxide 21 L Anion Gap 16 BUN 57 H Creatinine 4.14 H* Estim Creat Clear Calc 21.5 Estimated GFR 15 Random Glucose 111 Calcium 6.7 L Total Bilirubin AST ALT Alkaline Phosphatase C-Reactive Protein Total Protein Albumin Stool Leukocytes, Qual C. difficile Tox B Gene Microbiology Microbiology Results: Microbiology 08/11/22 13:26 Blood - Venous Blood Culture - Final No growth after 5 days. 08/10/22 01:08 Blood - Venous Blood Culture - Final Staphylococcus epidermidis 08/10/22 01:08 Blood - Venous Blood Culture - Final Staphylococcus epidermidis 08/11/22 12:23 Blood - Venous Blood Culture - Final Procedures Date of Service Date of Service: 08/17/22 Assessment & Plan Assessment and plan (1) Acute renal failure: Status: Acute Assessment and Plan: BERNARD due to tubular injury- improving H/O IV heroin use and Hep C positive? Renal functions better; Continue ? with supportive care No indication for dialysis now; Labs AM Progress Note: Quality Stroke Does the patient have a stroke diagnosis?: No
[2022-08-17 11:48] VITALS: BP 130/70; PULSE 83; RESP 20; TEMP 36.8; O2SAT 96
[2022-08-17] MEDS: methADONE HCl 20 MG/2 ML ORAL.CONC PO (12:55)
--- NOTE | 2022-08-17 15:20 | HO.ADDICTPRO ---
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 Saw patient shortly after dose administration--patient stating he does not wish to continue methadone that tastes disgusting Appearing very comfortable, laying in bed. No signs of withdrawal or discomfort noted. Denied any pain when asked Still has morphine IV ordered Review of Systems Constitutional: Reports as per HPI Mental Status Exam Mental Status Exam Level of Consciousness: Awake and Appropriate Affect Description: Blunted Diagnostics Vital Signs (24Hr): Vital Signs - 24 hr 08/16/22 15:25 08/16/22 19:08 08/17/22 04:00 Temperature 98.6 F 97.6 F 98.8 F Pulse Rate 77 77 92 Respiratory Rate 20 21 H 15 Blood Pressure 149/80 H 135/82 132/72 Pulse Oximetry 99 98 96 Oxygen Delivery Method Room Air Room Air Room Air 08/17/22 07:17 08/17/22 11:48 Temperature 97.5 F 98.3 F Pulse Rate 89 83 Respiratory Rate 20 20 Blood Pressure 126/65 130/70 Pulse Oximetry 97 96 Oxygen Delivery Method Room Air Room Air BMI result Body Mass Index 25.7 Labs 08/16/22 11:31 08/17/22 07:21 Labs: Laboratory Results - last 48 hr 08/16/22 08/16/22 08/16/22 11:31 11:31 11:31 WBC 8.4 RBC 3.61 L Hgb 10.8 L Hct 30.7 L MCV 85.0 MCH 29.9 MCHC 35.2 RDW 14.2 Plt Count 387 D MPV 8.8 L Absolute Nucleated RBC 0.000 Nucleated RBC % (auto) 0.0 ESR 59 H Sodium Cancelled Potassium Cancelled Chloride Cancelled Carbon Dioxide Cancelled Anion Gap Cancelled BUN Cancelled Creatinine Cancelled Estim Creat Clear Calc Cancelled Estimated GFR Cancelled Random Glucose Cancelled Calcium Cancelled Total Bilirubin AST ALT Alkaline Phosphatase C-Reactive Protein Total Protein Albumin Stool Leukocytes, Qual C. difficile Tox B Gene 08/16/22 08/16/22 08/16/22 11:31 15:00 15:00 WBC RBC Hgb Hct MCV MCH MCHC RDW Plt Count MPV Absolute Nucleated RBC Nucleated RBC % (auto) ESR Sodium 133 L Potassium 3.7 Chloride 103 Carbon Dioxide 20 L Anion Gap 14 BUN 76 H Creatinine 5.15 H* Estim Creat Clear Calc 17.3 Estimated GFR 12 Random Glucose 118 H Calcium 6.6 L Total Bilirubin 0.5 AST 14 ALT 25 Alkaline Phosphatase 67 C-Reactive Protein 10.65 H Total Protein 4.8 L Albumin 2.4 L Stool Leukocytes, Qual NEGATIVE C. difficile Tox B Gene NEGATIVE 08/17/22 07:21 WBC RBC Hgb Hct MCV MCH MCHC RDW Plt Count MPV Absolute Nucleated RBC Nucleated RBC % (auto) ESR Sodium 138 Potassium 4.1 Chloride 105 Carbon Dioxide 21 L Anion Gap 16 BUN 57 H Creatinine 4.14 H* Estim Creat Clear Calc 21.5 Estimated GFR 15 Random Glucose 111 Calcium 6.7 L Total Bilirubin AST ALT Alkaline Phosphatase C-Reactive Protein Total Protein Albumin Stool Leukocytes, Qual C. difficile Tox B Gene Imaging Radiology Impressions: ITS Impressions Chest X-Ray 08/09/22 22:07 IMPRESSION: Unremarkable examination. Cervical Spine CT 08/09/22 23:40 IMPRESSION: 1. No acute findings identified in the head, facial bones, or cervical spine. 2. Multiple dental caries and periapical lucencies. Face CT 08/09/22 23:40 IMPRESSION: 1. No acute findings identified in the head, facial bones, or cervical spine. 2. Multiple dental caries and periapical lucencies. Head CT 08/09/22 23:40 IMPRESSION: 1. No acute findings identified in the head, facial bones, or cervical spine. 2. Multiple dental caries and periapical lucencies. Abdomen/Pelvis CT 08/10/22 01:32 IMPRESSION: 1. Thick-walled segment of distal small bowel in the right lower quadrant, as well as wall thickening of the descending colon. Appearance may reflect a combination of infectious/inflammatory enteritis and colitis, though in the setting of reported trauma mural hematoma and associated mesenteric injury would be difficult to exclude. 2. Trace free fluid in the pelvis such as a simple fluid appearance. 3. Bilateral renal calculi without hydronephrosis. 4. Partially visualized density in the left inguinal canal may reflect fluid versus retractile testicle. Chest X-Ray 08/10/22 04:05 IMPRESSION: Right IJ central line tip in the region of the cavoatrial junction. Abdomen/Pelvis CT 08/16/22 10:45 IMPRESSION: 1. Colonic wall thickening and extending from the transverse colon to the sigmoid colon with infiltration of the pericolonic fat and trace fluid similar to possibly minimally progressed from prior with wall thickening and perienteric fat stranding involving the distal ileum possibly slightly improved from prior. Constellation of findings is suggestive of an enterocolitis, which may be infectious or inflammatory. Fluid is noted throughout the colon compatible with a diarrheal state. 2. New small bilateral pleural effusions. Bibasilar airspace opacities new from prior favoring atelectasis with superimposed aspiration or infection difficult to exclude. 3. Circumferential thickening of the distal esophagus recommend correlation with symptoms of reflux or esophagitis. 4. Bilateral nonobstructing renal stones measuring up to 3 mm in the left upper pole. 5. Partially imaged asymmetric right gynecomastia, recommend correlation with clinical exam. Medications Medications Current Medications Acetaminophen (Acetaminophen 325 Mg Tablet) 975 mg PO Q6H PRN PRN Reason: Fever Last Admin: 08/17/22 04:41 Dose: 975 mg Al Hydroxide/Mg Hydroxide (Magnesium Hydrox/Alum Hydrox 30 Ml Oral.Susp) 30 ml PO Q6H PRN PRN Reason: GI Upset Amlodipine Besylate (Amlodipine Besylate 10 Mg Tablet) 10 mg PO DAILY [facility]; Protocol Last Admin: 08/17/22 09:43 Dose: 10 mg Bupropion HCl (Bupropion Hcl 100 Mg Tablet) 100 mg PO BID [facility] Last Admin: 08/17/22 09:43 Dose: 100 mg Calcium Carbonate (Calcium Carbonate 500 Mg Tablet) 500 mg PO BID [facility] Last Admin: 08/17/22 09:43 Dose: 500 mg Cyclobenzaprine HCl (Cyclobenzaprine Hcl 5 Mg Tablet) 5 mg PO TID [facility] Last Admin: 08/17/22 09:43 Dose: 5 mg Docusate Sodium (Docusate Sodium 100 Mg Capsule) 100 mg PO BID [facility] Last Admin: 08/17/22 09:45 Dose: Not Given Doxycycline Monohydrate (Doxycycline Monohydrate 100 Mg Capsule) 100 mg PO BID [facility] Stop: 08/20/22 23:59 Last Admin: 08/17/22 09:44 Dose: 100 mg Heparin Sodium (Porcine) (Heparin Sodium,Porcine 5,000 Unit/Ml Vial) 5,000 unit SUBCUT Q12H [facility] Last Admin: 08/17/22 09:42 Dose: 5,000 unit Hydroxyzine HCl (Hydroxyzine Hcl 50 Mg Tablet) 50 mg PO Q6H PRN PRN Reason: anxiety Lactulose (Lactulose 20 Gm/30 Ml Solution) 20 gm PO TID [facility] Last Admin: 08/17/22 09:45 Dose: Not Given Loperamide HCl (Loperamide Hcl 2 Mg Capsule) 2 mg PO Q4H PRN PRN Reason: diarrhea Last Admin: 08/17/22 06:36 Dose: 2 mg Morphine Sulfate (Morphine Sulfate 2 Mg/Ml Cartridge) 2 mg IVPUSH Q3H PRN; Protocol PRN Reason: Pain, Severe (Pain Scale 7-10) Last Admin: 08/17/22 04:41 Dose: 2 mg Multivitamins/Vitamin C (Multivitamin Tablet) 1 tab PO DAILY [facility] Last Admin: 08/17/22 09:43 Dose: 1 tab Nicotine (Nicotine 14 Mg Patch.Td24) 14 mg TRANSDERMA DAILY [facility] Last Admin: 08/17/22 09:45 Dose: 14 mg Omeprazole (Omeprazole 40 Mg Capsule.Dr) 40 mg PO DAILY@0630 [facility] Last Admin: 08/17/22 06:36 Dose: 40 mg Ondansetron HCl (Ondansetron Hcl 4 Mg/2 Ml Vial) 4 mg IVPUSH Q4H PRN PRN Reason: Nausea Last Admin: 08/16/22 11:09 Dose: 4 mg Quetiapine Fumarate (Quetiapine Fumarate 200 Mg Tablet) 200 mg PO BEDTIME [facility] Last Admin: 08/16/22 21:36 Dose: 200 mg Sevelamer Carbonate (Sevelamer Carbonate Tablet 800 Mg Tablet) 800 mg PO TIDWM [facility] Last Admin: 08/17/22 12:56 Dose: 800 mg Thiamine HCl (Thiamine Hcl 100 Mg Tablet) 100 mg PO DAILY [facility] Last Admin: 08/17/22 09:43 Dose: 100 mg Trazodone HCl (Trazodone Hcl 50 Mg Tablet) 150 mg PO BEDTIME [facility] Last Admin: 08/16/22 21:36 Dose: 150 mg Allergies Allergies Allergy/AdvReac Type Severity Reaction Status Date / Time haloperidol [From Haldol] AdvReac see note Verified 08/09/22 20:44 Assessment & Plan Assessment & Plan (1) Opioid use disorder: Status: Acute Code(s): F11.90 - Opioid use, unspecified, uncomplicated Assessment and Plan: declined methadone at this time unclear if patient still requires pain medication, however consider tapering IV morphine and/or transitioning to PO pain medications if possible please reconsult if patient is open to OUD treatment while here Total time managing care of this patient today __25__ minutes.
[2022-08-17 15:41] VITALS: BP 130/77; PULSE 89; RESP 18; TEMP 36.7; O2SAT 98
[2022-08-17 17:09] LABS: Adenovirus F 40/41 Not Detected (Not Detect.); Astrovirus Not Detected (Not Detect.); Campylobacter Not Detected (Not Detect.); Cryptosporidium Not Detected (Not Detect.); Cyclospora cayetanensis Not Detected (Not Detect.); E. coli EAEC Not Detected (Not Detect.); E. coli EPEC Not Detected (Not Detect.); E. coli ETEC Not Detected (Not Detect.); E. coli STEC Not Detected (Not Detect.); Entamoeba histolytica Not Detected (Not Detect.); Giardia lamblia Not Detected (Not Detect.); Norovirus GI/GII Not Detected (Not Detect.); Plesiomonas shigelloides Not Detected (Not Detect.); Rotavirus A Not Detected (Not Detect.); Salmonella Not Detected (Not Detect.); Sapovirus Not Detected (Not Detect.); Shigella sp./EIEC Not Detected (Not Detect.); Vibrio Not Detected (Not Detect.); Vibrio Cholerae Not Detected (Not Detect.); Yersinia enterocolitica Not Detected (Not Detect.)
--- NOTE | 2022-08-17 18:15 | PC.NURSE ---
Patient refused to get a peripheral IV in order to removed the triple lumen. Ortiz removed today at 18:15. voiding trial ends 08/18 at 12:00am
[2022-08-17] MEDS: traZODone HCL 50 MG TABLET 150 MG PO (20:57)
[2022-08-18] MEDS: Morphine Sulfate 2 MG/ML CARTRIDGE IVPUSH ×2 (02:06→09:12)
[2022-08-18] MEDS: Omeprazole 40 MG CAPSULE.DR PO (05:30)
[2022-08-18 07:51] LABS: Hemoglobin 10.4 g/dl (14.0-18.0); Mean Corpuscular HGB Conc 34.7 g/dl (31.0-36.0); Mean Corpuscular Hemoglobin 30.2 pg (27.0-33.0); Mean Corpuscular Volume 87.2 fL (80.0-98.0); Mean Platelet Volume 8.9 fL (9.4-12.4); Platelet Count 592 X10*3/uL (160-400); Red Blood Count 3.44 X10*6/uL (4.60-5.80); Red Cell Distribution Width 14.3 % (11.0-16.0)
[2022-08-18 08:00] VITALS: BP 140/84; PULSE 86; RESP 20; TEMP 37.2; O2SAT 100
[2022-08-18 08:21] LABS: Anion Gap 14 (12-20); Blood Urea Nitrogen 35 mg/dL (9-16); Carbon Dioxide 26 mmol/L (22-29); Chloride 104 mmol/L (96-108); Creatinine Clr Calc Pharmacy 30.8; Estimated Glomerular Filt Rate 23; Glucose Random 92 mg/dL (60-115); Sodium 139 mmol/L (135-145)
[2022-08-18] MEDS: Cyclobenzaprine HCl 5 MG TABLET PO ×3 (09:10→20:43)
[2022-08-18] MEDS: Multivitamin TABLET 1 TAB PO (09:11)
[2022-08-18] MEDS: Thiamine HCL 100 MG TABLET PO (09:11)
[2022-08-18] MEDS: amLODIPine Besylate 10 MG TABLET PO (09:11)
[2022-08-18] MEDS: Heparin Sodium,Porcine 5,000 UNIT/ML VIAL 5000 UNIT SUBCUT (09:11)
[2022-08-18] MEDS: buPROPion HCL 100 MG TABLET PO (09:11)
[2022-08-18] MEDS: Doxycycline Monohydrate 100 MG CAPSULE PO ×2 (09:11→20:43)
[2022-08-18] MEDS: Sevelamer Carbonate Tablet 800 MG TABLET PO ×3 (09:14→17:13)
[2022-08-18] MEDS: Nicotine 14 MG PATCH.TD24 TRANSDERMA (09:14)
[2022-08-18] MEDS: Gabapentin 100 MG CAPSULE PO ×2 (09:36→20:43)
[2022-08-18 11:09] VITALS: BP 115/69; PULSE 90; RESP 20; TEMP 36.9; O2SAT 96
--- NOTE | 2022-08-18 11:41 | PM.PNNEP ---
Subjective Subjective Date of Service: 08/18/22 Interval history: Events noted. All recent data reviewed; Renal function improving Physical Exam Vital Signs: Vital Signs: Last Vital Signs Temp 98.5 F 08/18/22 11:09 Pulse 90 08/18/22 11:09 Resp 20 08/18/22 11:09 BP 115/69 08/18/22 11:09 Pulse Ox 96 08/18/22 11:09 O2 Del Method Room Air 08/18/22 11:09 BMI result Body Mass Index 25.7 Const: General: no acute distress Orientation/consciousness: patient oriented x3 Eyes: EOM: EOMs intact bilaterally Neck: Neck: Yes supple Resp: Auscultation: diminished lung sounds Cardio: Rate: regular rate GI: Palpation (GI): Soft to palpation Neuro: General: patient oriented x3 and moves all extremities Objective Data Labs 08/18/22 06:36 08/18/22 06:36 Labs: Laboratory Results - last 24 hr 08/16/22 08/18/22 08/18/22 15:00 06:36 06:36 WBC 8.0 RBC 3.44 L Hgb 10.4 L Hct 30.0 L MCV 87.2 MCH 30.2 MCHC 34.7 RDW 14.3 Plt Count 592 H D MPV 8.9 L Absolute Nucleated RBC 0.000 Nucleated RBC % (auto) 0.0 Sodium 139 Potassium 5.0 D Chloride 104 Carbon Dioxide 26 Anion Gap 14 BUN 35 H Creatinine 2.90 H Estim Creat Clear Calc 30.8 Estimated GFR 23 Random Glucose 92 Calcium 7.0 L Stl C. cayetanensis PCR Not Detected Stool Rotavirus A PCR Not Detected Stl Adenov F 40/41 PCR Not Detected Stool Astrovirus (PCR) Not Detected Stool Campylobacter PCR Not Detected Stool Cryptosporidium PCR Not Detected Stl Sh Tox Pr E STEC PCR Not Detected Stool E coli O157 PCR Not applicable Stl Enterotoxigenic E PCR Not Detected Stool EPEC (PCR) Not Detected Stool EAEC (PCR) Not Detected Stl E. histolytica PCR Not Detected Stool Giardia Lamblia PCR Not Detected Stl P. shigelloides PCR Not Detected Stool Salmonella PCR Not Detected Stool Sapovirus (PCR) Not Detected Stl Shigella/EIEC PCR Not Detected St Y.enterocolitica PCR Not Detected Stool Vibrio (PCR) Not Detected Stl Vibrio cholerae PCR Not Detected Stl Norovirus GI/GII PCR Not Detected Microbiology Microbiology Results: Microbiology 08/11/22 13:26 Blood - Venous Blood Culture - Final No growth after 5 days. 08/10/22 01:08 Blood - Venous Blood Culture - Final Staphylococcus epidermidis 08/10/22 01:08 Blood - Venous Blood Culture - Final Staphylococcus epidermidis 08/11/22 12:23 Blood - Venous Blood Culture - Final Procedures Date of Service Date of Service: 08/18/22 Assessment & Plan Assessment and plan (1) Acute renal failure: Status: Acute Assessment and Plan: BERNARD due to tubular injury- improving H/O IV heroin use and Hep C positive? Renal functions better; Continue ? with supportive care Shall arrange close office F/U when D/Shantanu Progress Note: Quality Stroke Does the patient have a stroke diagnosis?: No
--- NOTE | 2022-08-18 12:20 | P.PNIM_ITS ---
Subjective Subjective Date of Service: 08/18/22 Interval History: Seen and evaluated improved abdominal pain and diarrhea Cr trending down still reporting suicidal thoughts No other overnight events Review of Systems Review of Systems: Yes all other systems are reviewed and are negative Physical Exam Vital Signs: Vital Signs: Last Vital Signs Temp 98.5 F 08/18/22 11:09 Pulse 90 08/18/22 11:09 Resp 20 08/18/22 11:09 BP 115/69 08/18/22 11:09 Pulse Ox 96 08/18/22 11:09 O2 Del Method Room Air 08/18/22 11:09 BMI result Body Mass Index 25.7 Const: Other: Constitutional : Awake, not in distress Neck : Normal inspection, Supple Cardiovascular : RRR, no JVP, no lower extremity edema Respiratory : good bilateral air entry, no crackles, wheezes or rhonchi Gastrointestinal: soft, lax, Normal bowel sounds, generalized tenderness with no clear surgical signs Skin : Warm, Dry, multiple skin abrasions and scratch markings Neurological : Alert & oriented x3, No focal deficit Objective Data Active Medications Acetaminophen (Acetaminophen 325 Mg Tablet) 975 mg PO Q6H PRN PRN Reason: Fever Last Admin: 08/17/22 04:41 Dose: 975 mg Documented By: MICHELLE Al Hydroxide/Mg Hydroxide (Magnesium Hydrox/Alum Hydrox 30 Ml Oral.Susp) 30 ml PO Q6H PRN PRN Reason: GI Upset Amlodipine Besylate (Amlodipine Besylate 10 Mg Tablet) 10 mg PO DAILY [facility]; Protocol Last Admin: 08/18/22 09:11 Dose: 10 mg Documented By: LEWIS Bupropion HCl (Bupropion Hcl 100 Mg Tablet) 100 mg PO BID [facility] Last Admin: 08/18/22 09:11 Dose: 100 mg Documented By: LEWIS Calcium Carbonate (Calcium Carbonate 500 Mg Tablet) 500 mg PO BID [facility] Last Admin: 08/18/22 09:11 Dose: 500 mg Documented By: LEWIS Cyclobenzaprine HCl (Cyclobenzaprine Hcl 5 Mg Tablet) 5 mg PO TID [facility] Last Admin: 08/18/22 09:10 Dose: 5 mg Documented By: LEWIS Docusate Sodium (Docusate Sodium 100 Mg Capsule) 100 mg PO BID [facility] Last Admin: 08/18/22 09:11 Dose: Not Given Documented By: LEWIS Non-Admin Reason: Patient Refused Doxycycline Monohydrate (Doxycycline Monohydrate 100 Mg Capsule) 100 mg PO BID [facility] Stop: 08/20/22 23:59 Last Admin: 08/18/22 09:11 Dose: 100 mg Documented By: CTORRJong Gabapentin (Gabapentin 100 Mg Capsule) 100 mg PO BID [facility] Last Admin: 08/18/22 09:36 Dose: 100 mg Documented By: CTORRJong Heparin Sodium (Porcine) (Heparin Sodium,Porcine 5,000 Unit/Ml Vial) 5,000 unit SUBCUT Q12H [facility] Last Admin: 08/18/22 09:11 Dose: 5,000 unit Documented By: CTORRJong Hydroxyzine HCl (Hydroxyzine Hcl 50 Mg Tablet) 50 mg PO Q6H PRN PRN Reason: anxiety Lactulose (Lactulose 20 Gm/30 Ml Solution) 20 gm PO TID [facility] Last Admin: 08/18/22 09:12 Dose: Not Given Documented By: LEWIS Non-Admin Reason: Patient Refused Loperamide HCl (Loperamide Hcl 2 Mg Capsule) 2 mg PO Q4H PRN PRN Reason: diarrhea Last Admin: 08/17/22 06:36 Dose: 2 mg Documented By: MICHELLE Multivitamins/Vitamin C (Multivitamin Tablet) 1 tab PO DAILY [facility] Last Admin: 08/18/22 09:11 Dose: 1 tab Documented By: CTORRJong Nicotine (Nicotine 14 Mg Patch.Td24) 14 mg TRANSDERMA DAILY [facility] Last Admin: 08/18/22 09:14 Dose: 14 mg Documented By: CTORRJong Omeprazole (Omeprazole 40 Mg Capsule.Dr) 40 mg PO DAILY@0630 [facility] Last Admin: 08/18/22 05:30 Dose: 40 mg Documented By: WHITNEY Ondansetron HCl (Ondansetron Hcl 4 Mg/2 Ml Vial) 4 mg IVPUSH Q4H PRN PRN Reason: Nausea Last Admin: 08/16/22 11:09 Dose: 4 mg Documented By: FOGARTB Oxycodone HCl (Oxycodone Hcl Immed Release 5 Mg Tablet) 5 mg PO Q4H PRN PRN Reason: Pain, Severe (Pain Scale 7-10) Quetiapine Fumarate (Quetiapine Fumarate 200 Mg Tablet) 200 mg PO BEDTIME [facility] Last Admin: 08/17/22 21:02 Dose: Not Given Documented By: HANNY Non-Admin Reason: Patient Refused Sevelamer Carbonate (Sevelamer Carbonate Tablet 800 Mg Tablet) 800 mg PO TIDWM [facility] Last Admin: 08/18/22 09:14 Dose: 800 mg Documented By: CTORRJong Thiamine HCl (Thiamine Hcl 100 Mg Tablet) 100 mg PO DAILY [facility] Last Admin: 08/18/22 09:11 Dose: 100 mg Documented By: CTORRJong Trazodone HCl (Trazodone Hcl 50 Mg Tablet) 150 mg PO BEDTIME [facility] Last Admin: 08/17/22 20:57 Dose: 150 mg Documented By: HANNY Labs 08/18/22 06:36 08/18/22 06:36 Labs: Laboratory Results - last 24 hr 08/12/22 08/16/22 08/18/22 09:10 15:00 06:36 MCV 87.2 MCH 30.2 MCHC 34.7 RDW 14.3 Plt Count 592 H D MPV 8.9 L Absolute Nucleated RBC 0.000 Nucleated RBC % (auto) 0.0 Anion Gap Estim Creat Clear Calc Estimated GFR Random Glucose Calcium Abnorm Protein Band 1 TNP Abnorm Protein Band 2 TNP Abnorm Protein Band 3 TNP Stl C. cayetanensis PCR Not Detected Stool Rotavirus A PCR Not Detected Stl Adenov F 40/41 PCR Not Detected Stool Astrovirus (PCR) Not Detected Stool Campylobacter PCR Not Detected Stool Cryptosporidium PCR Not Detected Stl Sh Tox Pr E STEC PCR Not Detected Stool E coli O157 PCR Not applicable Stl Enterotoxigenic E PCR Not Detected Stool EPEC (PCR) Not Detected Stool EAEC (PCR) Not Detected Stl E. histolytica PCR Not Detected Stool Giardia Lamblia PCR Not Detected Stl P. shigelloides PCR Not Detected Stool Salmonella PCR Not Detected Stool Sapovirus (PCR) Not Detected Stl Shigella/EIEC PCR Not Detected St Y.enterocolitica PCR Not Detected Stool Vibrio (PCR) Not Detected Stl Vibrio cholerae PCR Not Detected Stl Norovirus GI/GII PCR Not Detected 08/18/22 06:36 MCV MCH MCHC RDW Plt Count MPV Absolute Nucleated RBC Nucleated RBC % (auto) Anion Gap 14 Estim Creat Clear Calc 30.8 Estimated GFR 23 Random Glucose 92 Calcium 7.0 L Abnorm Protein Band 1 Abnorm Protein Band 2 Abnorm Protein Band 3 Stl C. cayetanensis PCR Stool Rotavirus A PCR Stl Adenov F 40/41 PCR Stool Astrovirus (PCR) Stool Campylobacter PCR Stool Cryptosporidium PCR Stl Sh Tox Pr E STEC PCR Stool E coli O157 PCR Stl Enterotoxigenic E PCR Stool EPEC (PCR) Stool EAEC (PCR) Stl E. histolytica PCR Stool Giardia Lamblia PCR Stl P. shigelloides PCR Stool Salmonella PCR Stool Sapovirus (PCR) Stl Shigella/EIEC PCR St Y.enterocolitica PCR Stool Vibrio (PCR) Stl Vibrio cholerae PCR Stl Norovirus GI/GII PCR Assessment and Plan (1) Staphylococcus epidermidis bacteremia: Status: Acute (2) Opioid use disorder: Status: Acute (3) Polysubstance abuse: Status: Acute (4) Hyponatremia: Status: Acute (5) Acute hyperkalemia: Status: Acute (6) Acute renal failure: Status: Acute Plan 47/m with Hx HTN, substance abuse, Hep C, PTSD among others who was admitted for AMS, SI and significantly elevated Cr and acidemia requiring ICU stay. Suicidal ideation patient still reporting suicidal thoughts Sitter in room Care team to eval as patient is medically clear Staph Epidermis Bacteremia leukocytosis trending down Negative Echo repeated negative was on Vanco, then Dapto--both stopped by ID for likely contamination and now on PO Doxy for 1 week. 08/20 BERNARD 2/2 Hypoperfusion, Drugs, ATN, Hep C Cr trending down DC Ortiz Avoid nephrotoxins nephrology following, to follow as OP Drug abuse seen by recovery team, Methadone PRN for now abdominal pain with diarrhea Abnormal images on admissions with possible colitis repeated CT scan showing colitis picture, ischemic vs infx Stool studies negative GI eval, no need for intervention, likely ischemic in origin and resolving, OP follow up Pain management Hyponatremia resolved Hyperkalemia Lokelma as needed follow levels Hyperphosphatemia 2/2 BERNARD continue Sevelamer DVT PPx Heparin Need for inpatient treatment of BERNARD and bacteremia, SI with further eval of abd pain , at this point his condition cannot be managed at home Time Spent With Patient Time: Total time managing care of this patient today ____ minutes. Quality Stroke Does the patient have a stroke diagnosis?: No VTE Prior VTE?: No VTE Risk Level:: Medical - moderate - high VTE Device Contraindication: N/A - Device Ordered VTE Drug Contraindication: N/A - Med Ordered
[2022-08-18] MEDS: oxyCODONE HCl Immed Release 5 MG TABLET PO ×2 (14:41→23:00)
[2022-08-18 15:55] VITALS: TEMP 37.1
[2022-08-18] MEDS: methADONE HCl 20 MG/2 ML ORAL.CONC 30 MG PO (17:14)
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
--- NOTE | 2022-08-18 18:27 | PC.NURSE ---
Right side triple lumen central line removed without complications. Patient refused to have a peripheral IV access. MD zelaya
--- NOTE | 2022-08-18 19:18 | PM.GIPN ---
Subjective Subjective Date of Service: 08/18/22 Interval History: Patient reports reduction in diarrhea and more formed stools no blood no abdominal pain appetite fair Gi stool and C diff neg does admit to bad reflux (thickening GEJ on CT) Critical Care Time (minutes): 0 Physical Exam Vital Signs: Vital Signs: Last Vital Signs Temp 98.8 F 08/18/22 15:55 Pulse 90 08/18/22 11:09 Resp 20 08/18/22 11:09 BP 115/69 08/18/22 11:09 Pulse Ox 96 08/18/22 11:09 O2 Del Method Room Air 08/18/22 11:09 BMI result Body Mass Index 25.7 EXAM: GENERAL: The patient is weak, and frail VITAL SIGNS:see workflow HEENT: Nonicteric sclerae, PERRLA, EOMI. Oropharynx clear. Moist mucous membranes. Conjunctivae appear well perfused. No thyroid mass. CHEST: Chest wall is nontender. HEART: Regular rate and rhythm without murmurs. LUNGS: Clear to auscultation bilaterally. ABDOMEN: Soft, positive bowel sounds, nontender, no organomegaly.no flank tenderness SKIN: dry skin NEUROLOGIC: Cranial nerves II-XII intact without motor/sensory deficit Psych: Appearance: disheveled Objective Data Labs 08/18/22 06:36 08/18/22 06:36 Labs: Laboratory Results - last 24 hr 08/12/22 08/12/22 08/18/22 09:10 09:10 06:36 WBC 8.0 RBC 3.44 L Hgb 10.4 L Hct 30.0 L MCV 87.2 MCH 30.2 MCHC 34.7 RDW 14.3 Plt Count 592 H D MPV 8.9 L Absolute Nucleated RBC 0.000 Nucleated RBC % (auto) 0.0 Sodium Potassium Chloride Carbon Dioxide Anion Gap BUN Creatinine Estim Creat Clear Calc Estimated GFR Random Glucose Calcium Abnorm Protein Band 1 TNP Abnorm Protein Band 2 TNP Abnorm Protein Band 3 TNP Cryoglobulin Comment 08/18/22 06:36 WBC RBC Hgb Hct MCV MCH MCHC RDW Plt Count MPV Absolute Nucleated RBC Nucleated RBC % (auto) Sodium 139 Potassium 5.0 D Chloride 104 Carbon Dioxide 26 Anion Gap 14 BUN 35 H Creatinine 2.90 H Estim Creat Clear Calc 30.8 Estimated GFR 23 Random Glucose 92 Calcium 7.0 L Abnorm Protein Band 1 Abnorm Protein Band 2 Abnorm Protein Band 3 Cryoglobulin Microbiology Microbiology Results: Microbiology 08/11/22 13:26 Blood - Venous Blood Culture - Final No growth after 5 days. 08/10/22 01:08 Blood - Venous Blood Culture - Final Staphylococcus epidermidis 08/10/22 01:08 Blood - Venous Blood Culture - Final Staphylococcus epidermidis 08/11/22 12:23 Blood - Venous Blood Culture - Final Procedures Date of Service Date of Service: 08/18/22 Progress Note: A&P Assessment and plan (1) Ischemic colitis: Status: Acute Plan 1/ Colitis, most likely ischemic with background of cocaine use (pos u tox) and dehydration with renal failure, slowly improving. 2/ Reflux sx with thickening of GEJ Plan: 1/ Cont with hydration, avoid over aggressive BP control 2/ cont with ABx and complete 7 d 3/ can f/u as o/p for colonoscopy in 6-8 weeks 4/ ok to give low dose PPI, o/p EGD same time as colonoscopy Time Spent With Patient Time: Total time managing care of this patient today ____ minutes. Quality Stroke Does the patient have a stroke diagnosis?: No VTE Prior VTE?: No VTE Risk Level:: Medical - moderate - high VTE Device Contraindication: N/A - Device Ordered VTE Drug Contraindication: N/A - Med Ordered
[2022-08-18 19:49] VITALS: RESP 18
[2022-08-18] MEDS: QUEtiapine Fumarate 200 MG TABLET PO (20:43)
[2022-08-18] MEDS: traZODone HCL 50 MG TABLET 150 MG PO (20:43)
[2022-08-18] MEDS: Loperamide HCl 2 MG CAPSULE PO (20:43)
[2022-08-18] MEDS: Acetaminophen 325 MG TABLET 975 MG PO (20:44)
[2022-08-18 23:02] VITALS: BP 145/89; PULSE 96; RESP 18; TEMP 37.1; O2SAT 97
[2022-08-19] MEDS: oxyCODONE HCl Immed Release 5 MG TABLET PO ×3 (03:04→13:35)
[2022-08-19] MEDS: Omeprazole 40 MG CAPSULE.DR PO (06:43)
[2022-08-19 07:54] VITALS: BP 138/81; PULSE 106; RESP 20; TEMP 36.6; O2SAT 98
[2022-08-19] MEDS: methADONE HCl 20 MG/2 ML ORAL.CONC 30 MG PO (08:39)
[2022-08-19] MEDS: Loperamide HCl 2 MG CAPSULE PO ×2 (08:39→13:35)
[2022-08-19] MEDS: amLODIPine Besylate 10 MG TABLET PO (08:39)
[2022-08-19] MEDS: Gabapentin 100 MG CAPSULE PO (08:40)
[2022-08-19] MEDS: Sevelamer Carbonate Tablet 800 MG TABLET PO (08:40)
[2022-08-19] MEDS: buPROPion HCL 100 MG TABLET PO (08:40)
[2022-08-19] MEDS: Cyclobenzaprine HCl 5 MG TABLET PO ×2 (08:40→15:37)
[2022-08-19] MEDS: Doxycycline Monohydrate 100 MG CAPSULE PO (08:40)
--- NOTE | 2022-08-19 10:44 | MHC.RECOVRN ---
Met with pt in 478 to folllow up regarding methadone initiation. Pt sitting on edge of bed, flat affect. Pt reports desire to continue methadone titration, reports anxiety, feeling hot/cold, diarrhea, inability to sleep. Denies other concerns. Discussed with Clotilde Pan APRN.
--- NOTE | 2022-08-19 11:11 | MHC.CM.PN ---
EMR REVIEWED, PER NURSING PT ACCEPTED TO INPT PSYCH AND AWAITING CALL FOR NURSE TO NURSE, UNCERTAIN OF TIME, RECOVERY NURSE NOTIFIED VIA TIGER.
[2022-08-19 11:33] VITALS: BP 128/82; PULSE 99; RESP 20; TEMP 36.8; O2SAT 99
--- NOTE | 2022-08-19 11:38 | PM.PNNEP ---
Subjective Subjective Date of Service: 08/19/22 Interval history: Events noted. All recent data reviewed Physical Exam Vital Signs: Vital Signs: Last Vital Signs Temp 98.2 F 08/19/22 11:33 Pulse 99 08/19/22 11:33 Resp 20 08/19/22 11:33 BP 128/82 08/19/22 11:33 Pulse Ox 99 08/19/22 11:33 O2 Del Method Room Air 08/19/22 11:33 BMI result Body Mass Index 25.7 Const: General: no acute distress Eyes: EOM: EOMs intact bilaterally Resp: Auscultation: diminished lung sounds Cardio: Rate: regular rate GI: Palpation (GI): Soft to palpation Neuro: General: moves all extremities Objective Data Labs 08/18/22 06:36 08/18/22 06:36 Labs: Laboratory Results - last 24 hr 08/12/22 08/12/22 09:10 09:10 Abnorm Protein Band 1 TNP Abnorm Protein Band 2 TNP Abnorm Protein Band 3 TNP Cryoglobulin Comment Cryoglobulin Cryocrit TNP Microbiology Microbiology Results: Microbiology 08/11/22 13:26 Blood - Venous Blood Culture - Final No growth after 5 days. 08/10/22 01:08 Blood - Venous Blood Culture - Final Staphylococcus epidermidis 08/10/22 01:08 Blood - Venous Blood Culture - Final Staphylococcus epidermidis 08/11/22 12:23 Blood - Venous Blood Culture - Final Procedures Date of Service Date of Service: 08/19/22 Assessment & Plan Assessment and plan (1) Acute renal failure: Status: Acute Assessment and Plan: BERNARD due to tubular injury- improved H/O IV heroin use and Hep C positive? Renal functions better; Continue ? with supportive care Discontinue Josefina Shall arrange close office F/U when D/Shantanu Progress Note: Quality Stroke Does the patient have a stroke diagnosis?: No
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
[2022-08-22 20:29] LABS: Calprotectin, Fecal 3660 mcg/g
[2022-08-22 23:49] LABS: Lactoferrin, Fecal, Quant. 516.12 mcg/mL (<7.25)
== END 2022-08-19 15:41 | disposition other institution (70) | DRG 351 ==
LOC: HO.ED 22:46 → HO.ICU 08-10 02:11 → HO.IMC 08-11 10:09
PROVIDERS: Internal Medicine; Internal Medicine Cardiovascular Disease; Internal Medicine Gastroenterology; Internal Medicine Hypertension Specialist; Internal Medicine Pulmonary Disease; Nurse Practitioner Family; Physician Assistant; Student in an Organized Health Care Education/Training Program; Admitting Provider Physician Assistant Medical; Emergency Provider Emergency Medicine Emergency Medical Services; PCP Internal Medicine; Visit Provider Internal Medicine
DX: M62.82 Rhabdomyolysis (principal); N17.0 Acute kidney failure with tubular necrosis; K55.9 Vascular disorder of intestine, unspecified; F33.2 Major depressive disorder, recurrent severe without psychotic features; E87.5 Hyperkalemia; E86.0 Dehydration; E83.51 Hypocalcemia; E88.09 Other disorders of plasma-protein metabolism, not elsewhere classified; E87.1 Hypo-osmolality and hyponatremia; F19.10 Other psychoactive substance abuse, uncomplicated; B19.20 Unspecified viral hepatitis C without hepatic coma; R45.851 Suicidal ideations; K21.9 Gastro-esophageal reflux disease without esophagitis; F17.210 Nicotine dependence, cigarettes, uncomplicated; F11.20 Opioid dependence, uncomplicated; E83.39 Other disorders of phosphorus metabolism; Z20.822 Contact with and (suspected) exposure to COVID-19; Z71.6 Tobacco abuse counseling; Z88.8 Allergy status to other drugs, medicaments and biological substances; Z79.899 Other long term (current) drug therapy
CPT/HCPCS: 36415; 70450; 70486; 71045; 71046; 72125; 74176; 80048; 80053; 80143; 80179; 80202; 80307; 80320; 81001; 82077; 82248; 82436; 82550; 82595; 82693; 82803; 82947; 83520; 83605; 83631; 83690; 83735; 83930; 83993; 84100; 84133; 84156; 84165; 84300; 84484; 85007; 85025; 85027; 85610; 85652; 85730; 86021; 86140; 86160; 87040; 87077; 87177; 87186; 87205; 87209; 87493; 87507; 87635; 89055; 93005; 93306; 94640; 97162; 97530; 99285; C1758; J0696; J0878; J1643; J2250; J2270; J2405; J2543; J3010; J3370; P9047; S9485

== ENCOUNTER 2022-08-19 15:54 | Inpatient (IN) | payer OTHER, SELFPAY ==
--- NOTE | ~2022-08-19 | XR_ITS ---
EXAMINATION: XR ABDOMEN KUB CLINICAL INDICATION: Abdominal pain with nausea and vomiting. COMPARISON: CT of 08/16/2022. TECHNIQUE: AP view of the abdomen. FINDINGS: The stomach is mildly prominent but air is seen distally. No dilated loops of small bowel. Large amount of stool in the right colon. Redundant sigmoid colon. XR/XR KUB IMPRESSION: No evidence of bowel obstruction. Large amount of stool in the right colon..
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
[2022-08-19 19:53] VITALS: BP 111/67; PULSE 101; RESP 16; TEMP 37.2; O2SAT 94
[2022-08-19] MEDS: Doxycycline Monohydrate 100 MG CAPSULE PO (21:00)
[2022-08-19] MEDS: traZODone HCL 50 MG TABLET 150 MG PO (21:00)
[2022-08-19] MEDS: Gabapentin 100 MG CAPSULE PO (21:01)
[2022-08-19] MEDS: Cyclobenzaprine HCl 5 MG TABLET PO (21:01)
[2022-08-19] MEDS: QUEtiapine Fumarate 200 MG TABLET PO (21:03)
[2022-08-20] MEDS: Nicotine 14 MG PATCH.TD24 TRANSDERMA (08:32)
[2022-08-20] MEDS: amLODIPine Besylate 10 MG TABLET PO (08:33)
[2022-08-20] MEDS: Thiamine HCL 100 MG TABLET PO (08:33)
[2022-08-20] MEDS: Doxycycline Monohydrate 100 MG CAPSULE PO ×2 (08:33→21:59)
[2022-08-20] MEDS: Omeprazole 40 MG CAPSULE.DR PO (08:33)
[2022-08-20] MEDS: Sevelamer Carbonate Tablet 800 MG TABLET PO ×2 (08:33→14:34)
[2022-08-20] MEDS: Cyclobenzaprine HCl 5 MG TABLET PO ×3 (08:33→21:58)
[2022-08-20] MEDS: buPROPion HCL 100 MG TABLET PO (08:34)
[2022-08-20] MEDS: methADONE HCl 20 MG/2 ML ORAL.CONC 40 MG PO (08:34)
[2022-08-20] MEDS: Gabapentin 100 MG CAPSULE PO ×2 (08:34→21:58)
[2022-08-20 09:47] VITALS: BP 131/89; PULSE 121; RESP 18; TEMP 37.6; O2SAT 98
--- NOTE | 2022-08-20 11:36 | MHC.RECOVRN ---
This proposal manager writer met w/ patient, patient sitting in rec room, awake, alert. T/W reviewed patient received 40mg MTD this a.m. Patient reports has pain all over, diarrhea and cold/hot sweats . This proposal manager writer checked in with floor RN, floor RN reports patient consistently reporting abdominal pain/cramping due to colitis.
[2022-08-20] MEDS: Magnesium Hydrox/Alum Hydrox 30 ML ORAL.SUSP PO (13:00)
[2022-08-20] MEDS: Loperamide HCl 2 MG CAPSULE PO ×2 (14:03→18:29)
[2022-08-20] MEDS: oxyCODONE HCl Immed Release 5 MG TABLET PO ×3 (14:24→22:06)
[2022-08-20] MEDS: cloNIDine HCL 0.1 MG TABLET PO ×2 (14:35→21:58)
[2022-08-20] MEDS: QUEtiapine Fumarate 50 MG TABLET PO ×2 (14:35→23:25)
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
[2022-08-20 20:30] VITALS: BP 124/77; PULSE 106; RESP 16; TEMP 36.6; O2SAT 94
[2022-08-20] MEDS: QUEtiapine Fumarate 200 MG TABLET PO (21:57)
[2022-08-20] MEDS: traZODone HCL 50 MG TABLET 150 MG PO (21:57)
[2022-08-20] MEDS: traZODone HCL 50 MG TABLET PO (23:25)
[2022-08-21 08:00] VITALS: BP 135/78; PULSE 87; RESP 18; TEMP 36.6; O2SAT 98
[2022-08-21] MEDS: Nicotine 14 MG PATCH.TD24 TRANSDERMA (08:46)
[2022-08-21] MEDS: Omeprazole 40 MG CAPSULE.DR PO (08:47)
[2022-08-21] MEDS: Thiamine HCL 100 MG TABLET PO (08:48)
[2022-08-21] MEDS: oxyCODONE HCl Immed Release 5 MG TABLET PO (08:48)
[2022-08-21] MEDS: Sevelamer Carbonate Tablet 800 MG TABLET PO ×2 (08:48→14:35)
[2022-08-21] MEDS: buPROPion HCL 100 MG TABLET PO (08:48)
[2022-08-21] MEDS: amLODIPine Besylate 10 MG TABLET PO (08:48)
[2022-08-21] MEDS: QUEtiapine Fumarate 100 MG TABLET PO (08:48)
[2022-08-21] MEDS: Cyclobenzaprine HCl 5 MG TABLET PO ×3 (08:48→22:47)
[2022-08-21] MEDS: methADONE HCl 20 MG/2 ML ORAL.CONC 40 MG PO (08:49)
[2022-08-21] MEDS: cloNIDine HCL 0.1 MG TABLET PO (08:49)
[2022-08-21] MEDS: Gabapentin 100 MG CAPSULE PO ×2 (08:49→22:47)
[2022-08-21] MEDS: Famotidine 20 MG TABLET PO ×2 (13:29→22:47)
--- NOTE | 2022-08-21 13:57 | HO.PSYCHPN ---
Subjective Subjective Date of Service: 08/21/22 Reason For Visit: SI Interim History: calm, cooperative. states nothing has changed. same AH, same anxiety. c/o abd pain for past 8-9 days. on omep 40 mg daily, agrees to add famotidine 20 mg daily. c/o dizziness, orthos checked. per RN, pt is orthostatic. clonidine DCed for now, pt will be instructed to drink fluids. per staff, dep/anx 02/02. c/o abd pain. poor PO intake. insomnia. poor concentration. +AH. taking meds. alert on eves, isolative. loose stools, imodium helpful. Mental Status Exam Mental Status Exam Narrative: pt is alert, oriented and pleasant. speech incr in rate, decr amount, nml loudness. decr latency. Moderate eye contact. Affect is normo-intense, non-labile. mood depressed and anxious. +SI, AH. no HI, VH. Cognitively is intact. Judgment is impaired Diagnostics Vital Signs (24Hr): Vital Signs - 24 hr 08/20/22 20:30 08/21/22 08:00 Temperature 97.8 F 98 F Pulse Rate 106 H 87 Respiratory Rate 16 18 Blood Pressure 124/77 135/78 Pulse Oximetry 94 98 Oxygen Delivery Method Room Air Room Air Medications Medications Current Medications Acetaminophen (Acetaminophen 325 Mg Tablet) 650 mg PO Q6H PRN PRN Reason: Headache/Pain Mild Scale (1-3) Al Hydroxide/Mg Hydroxide (Magnesium Hydrox/Alum Hydrox 30 Ml Oral.Susp) 30 ml PO Q6H PRN PRN Reason: Heartburn/Nausea Last Admin: 08/20/22 13:00 Dose: 30 ml Amlodipine Besylate (Amlodipine Besylate 10 Mg Tablet) 10 mg PO DAILY [facility]; Protocol Last Admin: 08/21/22 08:48 Dose: 10 mg Bupropion HCl (Bupropion Hcl Xl 150 Mg Tab.Er.24h) 150 mg PO DAILY [facility] Calcium Carbonate (Calcium Carbonate 500 Mg Tablet) 500 mg PO BID [facility] Last Admin: 08/21/22 08:49 Dose: 500 mg Cyclobenzaprine HCl (Cyclobenzaprine Hcl 5 Mg Tablet) 5 mg PO TID [facility] Last Admin: 08/21/22 08:48 Dose: 5 mg Docusate Sodium (Docusate Sodium 100 Mg Capsule) 100 mg PO BID [facility] Last Admin: 08/21/22 08:49 Dose: Not Given Famotidine (Famotidine 20 Mg Tablet) 20 mg PO BEDTIME [facility] Last Admin: 08/21/22 13:29 Dose: 20 mg Gabapentin (Gabapentin 100 Mg Capsule) 100 mg PO BID [facility] Last Admin: 08/21/22 08:49 Dose: 100 mg Hydroxyzine HCl (Hydroxyzine Hcl 50 Mg Tablet) 50 mg PO Q6H PRN PRN Reason: anxiety Loperamide HCl (Loperamide Hcl 2 Mg Capsule) 2 mg PO Q4H PRN PRN Reason: diarrhea Last Admin: 08/20/22 18:29 Dose: 2 mg Magnesium Hydroxide (Milk Of Magnesia 30 Ml Oral.Susp) 30 ml PO DAILY PRN PRN Reason: Constipation Methadone HCl (Methadone Hcl 20 Mg/2 Ml Oral.Conc) 40 mg PO DAILY [facility] Last Admin: 08/21/22 08:49 Dose: 40 mg Nicotine (Nicotine 14 Mg Patch.Td24) 14 mg TRANSDERMA DAILY [facility] Last Admin: 08/21/22 08:46 Dose: 14 mg Nicotine Polacrilex (Nicotine Polacrilex 2 Mg Gum) 4 mg BUCCAL Q2H PRN PRN Reason: Nicotine Cravings Omeprazole (Omeprazole 40 Mg Capsule.Dr) 40 mg PO DAILY@0630 [facility] Last Admin: 08/21/22 08:47 Dose: 40 mg Oxycodone HCl (Oxycodone Hcl Immed Release 5 Mg Tablet) 5 mg PO Q4H PRN PRN Reason: Pain (Scale Score 7-10) Last Admin: 08/21/22 08:48 Dose: 5 mg Quetiapine Fumarate (Quetiapine Fumarate 200 Mg Tablet) 200 mg PO BEDTIME [facility] Last Admin: 08/20/22 21:57 Dose: 200 mg Quetiapine Fumarate (Quetiapine Fumarate 50 Mg Tablet) 50 mg PO Q4H PRN PRN Reason: AH/agitation Last Admin: 08/20/22 23:25 Dose: 50 mg Quetiapine Fumarate (Quetiapine Fumarate 100 Mg Tablet) 100 mg PO DAILY [facility] Last Admin: 08/21/22 08:48 Dose: 100 mg Sevelamer Carbonate (Sevelamer Carbonate Tablet 800 Mg Tablet) 800 mg PO TID [facility] Last Admin: 08/21/22 08:48 Dose: 800 mg Thiamine HCl (Thiamine Hcl 100 Mg Tablet) 100 mg PO DAILY [facility] Last Admin: 08/21/22 08:48 Dose: 100 mg Trazodone HCl (Trazodone Hcl 50 Mg Tablet) 50 mg PO BEDTIME MRX1 PRN PRN Reason: Insomnia Last Admin: 08/20/22 23:25 Dose: 50 mg Trazodone HCl (Trazodone Hcl 50 Mg Tablet) 150 mg PO BEDTIME [facility] Last Admin: 08/20/22 21:57 Dose: 150 mg Allergies Allergies Allergy/AdvReac Type Severity Reaction Status Date / Time haloperidol [From Haldol] AdvReac see note Verified 08/09/22 20:44 Assessment & Plan Assessment & Plan (1) Polysubstance abuse: Status: Acute Code(s): F19.10 - Other psychoactive substance abuse, uncomplicated (2) Post traumatic stress disorder (PTSD): Status: Acute Code(s): F43.10 - Post-traumatic stress disorder, unspecified (3) Major depression, recurrent: Status: Acute Code(s): F33.9 - Major depressive disorder, recurrent, unspecified Plan continue meds from medicine admission. add seroquel 100 mg QAM, 50 mg Q4H PRN AH/psychosis. add clonidine 0.1 mg TID. T/C sec 35. 08/21: dizzy, + orthostatic hypotension. push fluids. DC clonidine for now. abd pain for past 8-9 days, already on omep 40. adding famotidine 20 daily as well. Reason for continued inpatient stay Substantial Risk for: harm to self, inability to function and rapid decompensation Time Spent With Patient Time: Total time managing care of this patient today __25__ minutes.
[2022-08-21 22:40] VITALS: BP 114/66; PULSE 107; RESP 16; TEMP 36.1; O2SAT 99
[2022-08-21] MEDS: traZODone HCL 50 MG TABLET 150 MG PO (22:47)
[2022-08-21] MEDS: QUEtiapine Fumarate 200 MG TABLET PO (22:47)
[2022-08-22 08:45] VITALS: BP 110/57; PULSE 97; RESP 18; TEMP 36.8; O2SAT 98
[2022-08-22] MEDS: Nicotine 14 MG PATCH.TD24 TRANSDERMA (09:12)
[2022-08-22] MEDS: methADONE HCl 20 MG/2 ML ORAL.CONC 40 MG PO (09:56)
[2022-08-22] MEDS: Ondansetron ODT 4 MG TAB.RAPDIS TRANSLINGU (10:17)
--- NOTE | 2022-08-22 10:20 | PC.NURSE ---
Late entry: 0900 Patient up, attempted to take PO medications and then immediately vomited. Dr. Abdul notified, may re-attempt medications if patient agrees, At this time, patient has accepted Zofran, and methadone, and has tolerated but is declining other medications.
[2022-08-22] MEDS: Omeprazole 40 MG CAPSULE.DR PO (10:26)
[2022-08-22] MEDS: oxyCODONE HCl Immed Release 5 MG TABLET PO ×3 (10:43→22:24)
--- NOTE | 2022-08-22 12:33 | PC.NURSE ---
Late entry: Patient reported increasing abdominal pain. Given omeprazole as prescribed patient reported continued pain. Reviewed w/ MD, pt given oxycodone PRN as ordered. Patient appeared less irritable after receiving, stated he was feeling better.
[2022-08-22] MEDS: methADONE HCl 20 MG/2 ML ORAL.CONC 5 MG PO (14:06)
--- NOTE | 2022-08-22 16:41 | HO.PSYCHPN ---
Subjective Subjective Date of Service: 08/22/22 Reason For Visit: SI Interim History: calm, cooperative. c/o stomach pain, dizziness, poor PO intake, vomiting. no change in stomach pain with eating. no substantial withdrawal Sx endorsed, but does agree to increase methadone to 45 mg daily. per staff, sleepy on days yesterday. appears depressed and fatigued. vomited up meds this morning immediately after having taken them. c/o cramping with food. Mental Status Exam Mental Status Exam Narrative: pt is alert, oriented and pleasant. speech incr in rate, decr amount, nml loudness. decr latency. Moderate eye contact. Affect is normo-intense, non-labile. mood depressed and anxious. +SI, AH. no HI, VH. Cognitively is intact. Judgment is impaired Diagnostics Vital Signs (24Hr): Vital Signs - 24 hr 08/21/22 22:40 08/22/22 08:45 Temperature 97.0 F 98.3 F Pulse Rate 107 H 97 Respiratory Rate 16 18 Blood Pressure 114/66 110/57 L Pulse Oximetry 99 98 Oxygen Delivery Method Room Air Room Air Medications Medications Current Medications Acetaminophen (Acetaminophen 325 Mg Tablet) 650 mg PO Q6H PRN PRN Reason: Headache/Pain Mild Scale (1-3) Al Hydroxide/Mg Hydroxide (Magnesium Hydrox/Alum Hydrox 30 Ml Oral.Susp) 30 ml PO Q6H PRN PRN Reason: Heartburn/Nausea Last Admin: 08/20/22 13:00 Dose: 30 ml Amlodipine Besylate (Amlodipine Besylate 10 Mg Tablet) 10 mg PO DAILY [facility]; Protocol Last Admin: 08/22/22 10:45 Dose: Not Given Bupropion HCl (Bupropion Hcl Xl 150 Mg Tab.Er.24h) 150 mg PO DAILY [facility] Last Admin: 08/22/22 10:46 Dose: Not Given Calcium Carbonate (Calcium Carbonate 500 Mg Tablet) 500 mg PO BID [facility] Last Admin: 08/22/22 10:46 Dose: Not Given Cyclobenzaprine HCl (Cyclobenzaprine Hcl 5 Mg Tablet) 5 mg PO TID [facility] Last Admin: 08/22/22 14:09 Dose: Not Given Docusate Sodium (Docusate Sodium 100 Mg Capsule) 100 mg PO BID [facility] Last Admin: 08/22/22 10:46 Dose: Not Given Famotidine (Famotidine 20 Mg Tablet) 20 mg PO BEDTIME [facility] Last Admin: 08/21/22 22:47 Dose: 20 mg Gabapentin (Gabapentin 100 Mg Capsule) 100 mg PO BID [facility] Last Admin: 08/22/22 10:46 Dose: Not Given Hydroxyzine HCl (Hydroxyzine Hcl 50 Mg Tablet) 50 mg PO Q6H PRN PRN Reason: anxiety Loperamide HCl (Loperamide Hcl 2 Mg Capsule) 2 mg PO Q4H PRN PRN Reason: diarrhea Last Admin: 08/20/22 18:29 Dose: 2 mg Magnesium Hydroxide (Milk Of Magnesia 30 Ml Oral.Susp) 30 ml PO DAILY PRN PRN Reason: Constipation Methadone HCl (Methadone Hcl 20 Mg/2 Ml Oral.Conc) 45 mg PO DAILY [facility] Nicotine (Nicotine 14 Mg Patch.Td24) 14 mg TRANSDERMA DAILY [facility] Last Admin: 08/22/22 09:12 Dose: 14 mg Nicotine Polacrilex (Nicotine Polacrilex 2 Mg Gum) 4 mg BUCCAL Q2H PRN PRN Reason: Nicotine Cravings Omeprazole (Omeprazole 40 Mg Capsule.Dr) 40 mg PO DAILY@0630 [facility] Last Admin: 08/22/22 10:26 Dose: 40 mg Oxycodone HCl (Oxycodone Hcl Immed Release 5 Mg Tablet) 5 mg PO Q4H PRN PRN Reason: Pain (Scale Score 7-10) Last Admin: 08/22/22 16:13 Dose: 5 mg Quetiapine Fumarate (Quetiapine Fumarate 200 Mg Tablet) 200 mg PO BEDTIME [facility] Last Admin: 08/21/22 22:47 Dose: 200 mg Quetiapine Fumarate (Quetiapine Fumarate 50 Mg Tablet) 50 mg PO Q4H PRN PRN Reason: AH/agitation Last Admin: 08/20/22 23:25 Dose: 50 mg Quetiapine Fumarate (Quetiapine Fumarate 100 Mg Tablet) 100 mg PO DAILY [facility] Last Admin: 08/22/22 10:46 Dose: Not Given Thiamine HCl (Thiamine Hcl 100 Mg Tablet) 100 mg PO DAILY [facility] Last Admin: 08/22/22 10:47 Dose: Not Given Trazodone HCl (Trazodone Hcl 50 Mg Tablet) 50 mg PO BEDTIME MRX1 PRN PRN Reason: Insomnia Last Admin: 08/20/22 23:25 Dose: 50 mg Trazodone HCl (Trazodone Hcl 50 Mg Tablet) 150 mg PO BEDTIME [facility] Last Admin: 08/21/22 22:47 Dose: 150 mg Allergies Allergies Allergy/AdvReac Type Severity Reaction Status Date / Time haloperidol [From Haldol] AdvReac see note Verified 08/09/22 20:44 Assessment & Plan Assessment & Plan (1) Polysubstance abuse: Status: Acute Code(s): F19.10 - Other psychoactive substance abuse, uncomplicated (2) Post traumatic stress disorder (PTSD): Status: Acute Code(s): F43.10 - Post-traumatic stress disorder, unspecified (3) Major depression, recurrent: Status: Acute Code(s): F33.9 - Major depressive disorder, recurrent, unspecified Plan continue meds from medicine admission. add seroquel 100 mg QAM, 50 mg Q4H PRN AH/psychosis. add clonidine 0.1 mg TID. T/C sec 35. 08/21: dizzy, + orthostatic hypotension. push fluids. DC clonidine for now. abd pain for past 8-9 days, already on omep 40. adding famotidine 20 daily as well. 08/22: c/o stomach pain, intermittently severe. also dizziness, intermittent nausea, poor PO intake 2/2 pain, vomiting. increase methadone to 45. Reason for continued inpatient stay Substantial Risk for: harm to self, inability to function and rapid decompensation Time Spent With Patient Time: Total time managing care of this patient today __25__ minutes.
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
--- NOTE | 2022-08-22 18:03 | PC.NURSE ---
Patient seen by hospitalist, labs drawn, and is now in xray for a KUB.
[2022-08-22 18:14] LABS: Hematocrit 32.7 % (42.0-52.0); Hemoglobin 10.7 g/dl (14.0-18.0); Mean Corpuscular HGB Conc 32.7 g/dl (31.0-36.0); Mean Corpuscular Hemoglobin 29.6 pg (27.0-33.0); Mean Corpuscular Volume 90.6 fL (80.0-98.0); Mean Platelet Volume 8.7 fL (9.4-12.4); NRBC Pct Auto 0.3 /100WBC (0.0-0.2); Platelet Count 453 X10*3/uL (160-400); Red Blood Count 3.61 X10*6/uL (4.60-5.80)
[2022-08-22 18:15] LABS: WBC ABN SCTR FOR CBC 1
[2022-08-22 18:17] LABS: White Blood Count 6.6 X10*3/uL (4.8-10.8)
[2022-08-22 18:24] LABS: Lactic Acid 1.3 mmol/L (0.5-2.0)
[2022-08-22 18:29] LABS: Alanine Aminotransferase 23 U/L (0-40); Albumin Level 2.6 g/dL (3.5-5.0); Alkaline Phosphatase 119 U/L (39-117); Anion Gap 15 (12-20); Aspartate Amino Transferase 31 U/L (5-37); Bilirubin Total 0.3 mg/dL (0.0-1.0); Blood Urea Nitrogen 27 mg/dL (9-16); C Reactive Protein 24.89 mg/dL (< or = 0.50); Calcium 8.4 mg/dL (8.4-10.2); Carbon Dioxide 26 mmol/L (22-29); Chloride 98 mmol/L (96-108); Estimated Glomerular Filt Rate 38; Glucose Random 93 mg/dL (60-115); Magnesium 1.7 mg/dL (1.6-2.6); Potassium 4.8 mmol/L (3.3-5.1); Sodium 134 mmol/L (135-145)
[2022-08-22 18:43] LABS: Band Neutrophils Percent 18 % (3-5); Basophils Abs Manual 0.1 X10*3/uL (0.0-0.2); Basophils Percent Manual 1 % (0-2); Eosinophils Absolute Manual 0.1 X10*3/uL (0.0-0.4); Eosinophils Percent Manual 1 % (0-4); Hypochromasia 1+ (5-14) /OIF; Lymphocytes Absolute Manual 1.8 X10*3/uL (1.2-4.9); Lymphocytes Percent Manual 28 % (20-40); Metamyelocytes Absolute 0.1 X10*3/uL; Metamyelocytes Percent 1 %; Monocytes Percent Manual 15 % (2-11); Myelocytes Absolute 0.1 X10*/uL; Myelocytes Percent 1 %; Neutrophils Absolute Manual 3.5 X10*3/uL (2.0-8.3); Neutrophils Percent Manual 35 % (45-73); RBC Morphology NOTED
[2022-08-22 18:44] LABS: Erythrocyte Sedimentation Rate 95 MM/HR (0-15); Platelet Estimate SLIGHTLY INCREASED (NORMAL); Platelet Morphology Comment NORMAL; Toxic Vacuolation PRESENT
[2022-08-22 22:20] VITALS: BP 115/67; PULSE 92; RESP 18; TEMP 36.4; O2SAT 97
[2022-08-22] MEDS: traZODone HCL 50 MG TABLET 150 MG PO (22:23)
[2022-08-22] MEDS: Dicyclomine HCl 10 MG CAPSULE PO (22:23)
[2022-08-22] MEDS: Gabapentin 100 MG CAPSULE PO (22:23)
[2022-08-22] MEDS: Famotidine 20 MG TABLET PO (22:24)
[2022-08-22] MEDS: QUEtiapine Fumarate 200 MG TABLET PO (22:24)
[2022-08-22] MEDS: Cyclobenzaprine HCl 5 MG TABLET PO (22:24)
[2022-08-23 09:15] VITALS: BP 111/61; PULSE 89; RESP 18; TEMP 36.6; O2SAT 93
[2022-08-23] MEDS: QUEtiapine Fumarate 100 MG TABLET PO (09:25)
[2022-08-23] MEDS: Omeprazole 40 MG CAPSULE.DR PO (09:26)
[2022-08-23] MEDS: Dicyclomine HCl 10 MG CAPSULE PO ×4 (09:26→20:26)
[2022-08-23] MEDS: Gabapentin 100 MG CAPSULE PO ×2 (09:26→20:26)
[2022-08-23] MEDS: buPROPion HCl XL 150 MG TAB.ER.24H PO (09:26)
[2022-08-23] MEDS: Cyclobenzaprine HCl 5 MG TABLET PO ×2 (09:26→20:25)
--- NOTE | 2022-08-23 09:47 | PC.NURSE ---
MD contacted re: BP- Amlodipine held as discussed.
[2022-08-23] MEDS: Nicotine 14 MG PATCH.TD24 TRANSDERMA (09:49)
--- NOTE | 2022-08-23 09:50 | PC.NURSE ---
Patient requesting to delay receiving Methadone at this time. Ate small amount of breakfast, drinking ensure.
[2022-08-23] MEDS: methADONE HCl 20 MG/2 ML ORAL.CONC 45 MG PO (10:04)
--- NOTE | 2022-08-23 12:32 | PM.EVENT ---
Event Note Date of Service: 08/23/22 Event Note: Spoke with pt's nurse and she reported pt feeling better than yesterday. No reported vomiting or diarrhea this morning, patient was able to take all of his medications without incident. Patient still not eating much, but was able to have a few bites from breakfast. Abdominal pain improved, patient has not requested any oxycodone today. Attempted to see patient, the patient was sleeping comfortably in bed at the time. Will attempt to see patient again tomorrow, but please let us know if there are any acute events or questions in the meantime. Time Spent With Patient Time: Total time managing care of this patient today ____ minutes.
--- NOTE | 2022-08-23 16:32 | HO.PSYCHPN ---
Subjective Subjective Date of Service: 08/23/22 Reason For Visit: SI Interim History: calm, cooperative. reports his stomach pain is unchanged. eating very slowly, but eating some. c/o poor sleep, asks that both trazodone and seroquel at HS be increased. review hospitalist note with pt. hospitalist started bentyl, considering IBS. per staff, c/o abd pain. labs and KUB done, reassuring. seen by medicine. held amlodipine for hypotension today. not vomiting in past 24H. irritable. up frequently throughout the night to use bathroom. Mental Status Exam Mental Status Exam Narrative: pt is alert, oriented and pleasant. speech incr in rate, decr amount, nml loudness, nml latency. poor eye contact. Affect is normo-intense, non-labile. mood depressed and anxious. +SI, AH. no HI, VH. Cognitively is intact. Judgment is impaired Diagnostics Vital Signs (24Hr): Vital Signs - 24 hr 08/22/22 22:20 08/23/22 09:15 Temperature 97.6 F 97.9 F Pulse Rate 92 89 Respiratory Rate 18 18 Blood Pressure 115/67 111/61 Pulse Oximetry 97 93 Oxygen Delivery Method Room Air Room Air Labs 08/22/22 17:59 08/22/22 17:59 Labs: Laboratory Results - last 48 hr 08/22/22 08/22/22 08/22/22 17:58 17:59 17:59 WBC 6.6 RBC 3.61 L Hgb 10.7 L Hct 32.7 L MCV 90.6 MCH 29.6 MCHC 32.7 RDW 14.0 Plt Count 453 H MPV 8.7 L Immature Gran % (Auto) Cancelled Neut % (Auto) Cancelled Lymph % (Auto) Cancelled Bartholomew % (Auto) Cancelled Eos % (Auto) Cancelled Baso % (Auto) Cancelled Lymph # (Auto) Cancelled Bartholomew # (Auto) Cancelled Eos # (Auto) Cancelled Baso # (Auto) Cancelled Abs Immat Gran (auto) Cancelled Absolute Neuts (auto) Cancelled Absolute Nucleated RBC 0.020 H Nucleated RBC % (auto) 0.3 H Neutrophils % (Manual) 35 L Band Neutrophils % 18 H Lymphocytes % (Manual) 28 Monocytes % (Manual) 15 H Eosinophils % (Manual) 1 Basophils % (Manual) 1 Metamyelocytes % 1 Myelocytes % 1 Abs Neuts (Manual) 3.5 Lymphocytes # (Manual) 1.8 Monocytes # (Manual) 1.0 Eosinophils # (Manual) 0.1 Basophils # (Manual) 0.1 Metamyelocytes # 0.1 Myelocytes # 0.1 Toxic Vacuolation PRESENT Platelet Estimate SLIGHTLY INCREASED Plt Morphology Comment NORMAL RBC Morphology NOTED Hypochromasia 1+ (5-14) ESR 95 H Sodium Potassium Chloride Carbon Dioxide Anion Gap BUN Creatinine Estim Creat Clear Calc Estimated GFR Random Glucose Lactic Acid 1.3 Calcium Magnesium Total Bilirubin AST ALT Alkaline Phosphatase C-Reactive Protein Total Protein Albumin 08/22/22 17:59 WBC RBC Hgb Hct MCV MCH MCHC RDW Plt Count MPV Immature Gran % (Auto) Neut % (Auto) Lymph % (Auto) Bartholomew % (Auto) Eos % (Auto) Baso % (Auto) Lymph # (Auto) Bartholomew # (Auto) Eos # (Auto) Baso # (Auto) Abs Immat Gran (auto) Absolute Neuts (auto) Absolute Nucleated RBC Nucleated RBC % (auto) Neutrophils % (Manual) Band Neutrophils % Lymphocytes % (Manual) Monocytes % (Manual) Eosinophils % (Manual) Basophils % (Manual) Metamyelocytes % Myelocytes % Abs Neuts (Manual) Lymphocytes # (Manual) Monocytes # (Manual) Eosinophils # (Manual) Basophils # (Manual) Metamyelocytes # Myelocytes # Toxic Vacuolation Platelet Estimate Plt Morphology Comment RBC Morphology Hypochromasia ESR Sodium 134 L Potassium 4.8 Chloride 98 Carbon Dioxide 26 Anion Gap 15 BUN 27 H Creatinine 1.91 H Estim Creat Clear Calc TNP Estimated GFR 38 Random Glucose 93 Lactic Acid Calcium 8.4 D Magnesium 1.7 Total Bilirubin 0.3 AST 31 ALT 23 Alkaline Phosphatase 119 H C-Reactive Protein 24.89 H Total Protein 6.0 L Albumin 2.6 L Imaging Radiology Impressions: ITS Impressions KUB X-Ray 08/22/22 18:16 IMPRESSION: No evidence of bowel obstruction. Large amount of stool in the right colon.. Medications Medications Current Medications Acetaminophen (Acetaminophen 325 Mg Tablet) 650 mg PO Q6H PRN PRN Reason: Headache/Pain Mild Scale (1-3) Al Hydroxide/Mg Hydroxide (Magnesium Hydrox/Alum Hydrox 30 Ml Oral.Susp) 30 ml PO Q6H PRN PRN Reason: Heartburn/Nausea Last Admin: 08/20/22 13:00 Dose: 30 ml Amlodipine Besylate (Amlodipine Besylate 10 Mg Tablet) 10 mg PO DAILY [facility]; Protocol Last Admin: 08/23/22 09:40 Dose: Not Given Bupropion HCl (Bupropion Hcl Xl 150 Mg Tab.Er.24h) 150 mg PO DAILY [facility] Last Admin: 08/23/22 09:26 Dose: 150 mg Calcium Carbonate (Calcium Carbonate 500 Mg Tablet) 500 mg PO BID [facility] Last Admin: 08/23/22 09:25 Dose: 500 mg Cyclobenzaprine HCl (Cyclobenzaprine Hcl 5 Mg Tablet) 5 mg PO TID [facility] Last Admin: 08/23/22 14:35 Dose: Not Given Dicyclomine HCl (Dicyclomine Hcl 10 Mg Capsule) 10 mg PO QIDACHS [facility] Last Admin: 08/23/22 13:09 Dose: 10 mg Docusate Sodium (Docusate Sodium 100 Mg Capsule) 100 mg PO BID [facility] Last Admin: 08/23/22 09:33 Dose: Not Given Famotidine (Famotidine 20 Mg Tablet) 20 mg PO BEDTIME [facility] Last Admin: 08/22/22 22:24 Dose: 20 mg Gabapentin (Gabapentin 100 Mg Capsule) 100 mg PO BID [facility] Last Admin: 08/23/22 09:26 Dose: 100 mg Hydroxyzine HCl (Hydroxyzine Hcl 50 Mg Tablet) 50 mg PO Q6H PRN PRN Reason: anxiety Loperamide HCl (Loperamide Hcl 2 Mg Capsule) 2 mg PO Q4H PRN PRN Reason: diarrhea Last Admin: 08/20/22 18:29 Dose: 2 mg Magnesium Hydroxide (Milk Of Magnesia 30 Ml Oral.Susp) 30 ml PO DAILY PRN PRN Reason: Constipation Methadone HCl (Methadone Hcl 20 Mg/2 Ml Oral.Conc) 45 mg PO DAILY [facility] Last Admin: 08/23/22 10:04 Dose: 45 mg Nicotine (Nicotine 14 Mg Patch.Td24) 14 mg TRANSDERMA DAILY [facility] Last Admin: 08/23/22 09:49 Dose: 14 mg Nicotine Polacrilex (Nicotine Polacrilex 2 Mg Gum) 4 mg BUCCAL Q2H PRN PRN Reason: Nicotine Cravings Omeprazole (Omeprazole 40 Mg Capsule.Dr) 40 mg PO DAILY@0630 [facility] Last Admin: 08/23/22 09:26 Dose: 40 mg Ondansetron HCl (Ondansetron Odt 4 Mg Tab.Rapdis) 4 mg TRANSLINGU Q6H PRN PRN Reason: Nausea Oxycodone HCl (Oxycodone Hcl Immed Release 5 Mg Tablet) 5 mg PO Q4H PRN PRN Reason: Pain (Scale Score 7-10) Last Admin: 08/22/22 22:24 Dose: 5 mg Quetiapine Fumarate (Quetiapine Fumarate 50 Mg Tablet) 50 mg PO Q4H PRN PRN Reason: AH/agitation Last Admin: 08/20/22 23:25 Dose: 50 mg Quetiapine Fumarate (Quetiapine Fumarate 100 Mg Tablet) 100 mg PO DAILY [facility] Last Admin: 08/23/22 09:25 Dose: 100 mg Quetiapine Fumarate (Quetiapine Fumarate 50 Mg Tablet) 250 mg PO BEDTIME [facility] Thiamine HCl (Thiamine Hcl 100 Mg Tablet) 100 mg PO DAILY [facility] Last Admin: 08/23/22 09:36 Dose: Not Given Trazodone HCl (Trazodone Hcl 50 Mg Tablet) 50 mg PO BEDTIME MRX1 PRN PRN Reason: Insomnia Last Admin: 08/20/22 23:25 Dose: 50 mg Trazodone HCl (Trazodone Hcl 100 Mg Tablet) 200 mg PO BEDTIME [facility] Allergies Allergies Allergy/AdvReac Type Severity Reaction Status Date / Time haloperidol [From Haldol] AdvReac see note Verified 08/09/22 20:44 Assessment & Plan Assessment & Plan (1) Abdominal pain: Status: Acute Code(s): R10.9 - Unspecified abdominal pain Assessment and Plan: 47-year-old male with history IV drug abuse, hypertension, major depressive disorder with psychosis, cocaine abuse admitted to Psychiatry with consult placed to hospital service for management of severe abdominal pain with nausea and vomiting. Symptoms of nausea/vomiting/diarrhea improved since admission 2 weeks ago. Increased left sided abdominal pain today. KUB is reassuring. Creat trending down since medical admission. No leukocytosis. CRP/ESR is elevated likely related to inflammation in the colon, ?IBD vs ?IBS. Given colicky nature of pain seems more consistent with IBS. Would recommend antispasmotic treatment with bentyl. Weight loss and anorexia likely related to grief, drug use, abd pain. Recommend ensures and bland diet as tolerated. Continue encouraging PO fluids (water specifically- drinking alot of juice). Ondansetron and famotidine ok prn for nausea. If symptoms not improving, consider GI consult. Recommend avoiding further abd CT unless symptoms not improving or worsen as patient has had 9 CT's this year alone. We will continue following. (2) Post traumatic stress disorder (PTSD): Status: Acute Code(s): F43.10 - Post-traumatic stress disorder, unspecified (3) Major depression, recurrent: Status: Acute Code(s): F33.9 - Major depressive disorder, recurrent, unspecified (4) Polysubstance abuse: Status: Acute Code(s): F19.10 - Other psychoactive substance abuse, uncomplicated Plan continue meds from medicine admission. add seroquel 100 mg QAM, 50 mg Q4H PRN AH/psychosis. add clonidine 0.1 mg TID. T/C sec 35. 08/21:? dizzy, + orthostatic hypotension.? push fluids.? DC clonidine for now.? abd pain for past 8-9 days, already on omep 40.? adding famotidine 20 daily as well. 08/22:? c/o stomach pain, intermittently severe.? also dizziness, intermittent nausea, poor PO intake 2/2 pain, vomiting.? increase methadone to 45. 08/23: bentyl added last night, scheduled. eating better, no vomiting, but pt says pain is the same. increase trazodone to 200 and seroquel to 250 at HS for insomnia. appears weak and medically ill. Reason for continued inpatient stay Substantial Risk for: harm to self, inability to function and rapid decompensation Time Spent With Patient Time: Total time managing care of this patient today ____ minutes.
[2022-08-23 18:00] VITALS: BP 98/58; PULSE 108; RESP 16; TEMP 36.6; O2SAT 93
[2022-08-23] MEDS: QUEtiapine Fumarate 50 MG TABLET 250 MG PO (20:23)
[2022-08-23] MEDS: traZODone HCL 100 MG TABLET 200 MG PO (20:24)
[2022-08-23] MEDS: oxyCODONE HCl Immed Release 5 MG TABLET PO (20:25)
[2022-08-23] MEDS: Famotidine 20 MG TABLET PO (20:25)
[2022-08-23] MEDS: Docusate Sodium 100 MG CAPSULE PO (20:25)
[2022-08-24 10:10] VITALS: BP 116/65; PULSE 97; TEMP 36.6; O2SAT 95
[2022-08-24] MEDS: methADONE HCl 20 MG/2 ML ORAL.CONC 45 MG PO (10:32)
[2022-08-24] MEDS: buPROPion HCl XL 150 MG TAB.ER.24H PO (10:36)
[2022-08-24] MEDS: Docusate Sodium 100 MG CAPSULE PO ×2 (10:37→20:52)
[2022-08-24] MEDS: Omeprazole 40 MG CAPSULE.DR PO (10:37)
[2022-08-24] MEDS: Gabapentin 100 MG CAPSULE PO ×2 (10:37→20:52)
[2022-08-24] MEDS: Cyclobenzaprine HCl 5 MG TABLET PO ×3 (10:38→20:49)
[2022-08-24] MEDS: Dicyclomine HCl 10 MG CAPSULE PO ×4 (10:38→20:52)
[2022-08-24] MEDS: Nicotine 14 MG PATCH.TD24 TRANSDERMA (10:40)
--- NOTE | 2022-08-24 14:18 | HO.PSYCHPN ---
Subjective Subjective Date of Service: 08/24/22 Reason For Visit: SI Interim History: calm, cooperative. appears less ill than in recent days. states he slept well. AH seem more krishna to trauma-driven memories than psychotic experiences. denies somtach pain, n/v. sad. amenable to hold norvasc, as he has been hypotensive. per staff, napping a lot. +AH. dep/anx 02/02. poor sleep. not attending groups. did not eat dinner. withdrawn. +SI. had oxycodone PRN. Mental Status Exam Mental Status Exam Narrative: pt is alert, oriented and pleasant. speech nml rate, amount, loudness, latency. fair eye contact. Affect is normo-intense, mod-labile. mood depressed and anxious. +SI, AH. no HI, VH expressed. Cognitively is intact. Judgment is impaired Diagnostics Vital Signs (24Hr): Vital Signs - 24 hr 08/23/22 18:00 08/24/22 10:10 Temperature 97.8 F 97.8 F Pulse Rate 108 H 97 Respiratory Rate 16 Blood Pressure 98/58 L 116/65 Pulse Oximetry 93 95 Oxygen Delivery Method Room Air Labs 08/22/22 17:59 08/22/22 17:59 Labs: Laboratory Results - last 48 hr 08/22/22 08/22/22 08/22/22 17:58 17:59 17:59 WBC 6.6 RBC 3.61 L Hgb 10.7 L Hct 32.7 L MCV 90.6 MCH 29.6 MCHC 32.7 RDW 14.0 Plt Count 453 H MPV 8.7 L Immature Gran % (Auto) Cancelled Neut % (Auto) Cancelled Lymph % (Auto) Cancelled Pine % (Auto) Cancelled Eos % (Auto) Cancelled Baso % (Auto) Cancelled Lymph # (Auto) Cancelled Pine # (Auto) Cancelled Eos # (Auto) Cancelled Baso # (Auto) Cancelled Abs Immat Gran (auto) Cancelled Absolute Neuts (auto) Cancelled Absolute Nucleated RBC 0.020 H Nucleated RBC % (auto) 0.3 H Neutrophils % (Manual) 35 L Band Neutrophils % 18 H Lymphocytes % (Manual) 28 Monocytes % (Manual) 15 H Eosinophils % (Manual) 1 Basophils % (Manual) 1 Metamyelocytes % 1 Myelocytes % 1 Abs Neuts (Manual) 3.5 Lymphocytes # (Manual) 1.8 Monocytes # (Manual) 1.0 Eosinophils # (Manual) 0.1 Basophils # (Manual) 0.1 Metamyelocytes # 0.1 Myelocytes # 0.1 Toxic Vacuolation PRESENT Platelet Estimate SLIGHTLY INCREASED Plt Morphology Comment NORMAL RBC Morphology NOTED Hypochromasia 1+ (5-14) ESR 95 H Sodium Potassium Chloride Carbon Dioxide Anion Gap BUN Creatinine Estim Creat Clear Calc Estimated GFR Random Glucose Lactic Acid 1.3 Calcium Magnesium Total Bilirubin AST ALT Alkaline Phosphatase C-Reactive Protein Total Protein Albumin 08/22/22 17:59 WBC RBC Hgb Hct MCV MCH MCHC RDW Plt Count MPV Immature Gran % (Auto) Neut % (Auto) Lymph % (Auto) Pine % (Auto) Eos % (Auto) Baso % (Auto) Lymph # (Auto) Pine # (Auto) Eos # (Auto) Baso # (Auto) Abs Immat Gran (auto) Absolute Neuts (auto) Absolute Nucleated RBC Nucleated RBC % (auto) Neutrophils % (Manual) Band Neutrophils % Lymphocytes % (Manual) Monocytes % (Manual) Eosinophils % (Manual) Basophils % (Manual) Metamyelocytes % Myelocytes % Abs Neuts (Manual) Lymphocytes # (Manual) Monocytes # (Manual) Eosinophils # (Manual) Basophils # (Manual) Metamyelocytes # Myelocytes # Toxic Vacuolation Platelet Estimate Plt Morphology Comment RBC Morphology Hypochromasia ESR Sodium 134 L Potassium 4.8 Chloride 98 Carbon Dioxide 26 Anion Gap 15 BUN 27 H Creatinine 1.91 H Estim Creat Clear Calc TNP Estimated GFR 38 Random Glucose 93 Lactic Acid Calcium 8.4 D Magnesium 1.7 Total Bilirubin 0.3 AST 31 ALT 23 Alkaline Phosphatase 119 H C-Reactive Protein 24.89 H Total Protein 6.0 L Albumin 2.6 L Imaging Radiology Impressions: ITS Impressions KUB X-Ray 08/22/22 18:16 IMPRESSION: No evidence of bowel obstruction. Large amount of stool in the right colon.. Medications Medications Current Medications Acetaminophen (Acetaminophen 325 Mg Tablet) 650 mg PO Q6H PRN PRN Reason: Headache/Pain Mild Scale (1-3) Al Hydroxide/Mg Hydroxide (Magnesium Hydrox/Alum Hydrox 30 Ml Oral.Susp) 30 ml PO Q6H PRN PRN Reason: Heartburn/Nausea Last Admin: 08/20/22 13:00 Dose: 30 ml Amlodipine Besylate (Amlodipine Besylate 10 Mg Tablet) 10 mg PO DAILY [facility]; Protocol Last Admin: 08/24/22 10:40 Dose: Not Given Bupropion HCl (Bupropion Hcl Xl 150 Mg Tab.Er.24h) 150 mg PO DAILY [facility] Last Admin: 08/24/22 10:36 Dose: 150 mg Calcium Carbonate (Calcium Carbonate 500 Mg Tablet) 500 mg PO BID [facility] Last Admin: 08/24/22 10:39 Dose: Not Given Cyclobenzaprine HCl (Cyclobenzaprine Hcl 5 Mg Tablet) 5 mg PO TID [facility] Last Admin: 08/24/22 10:38 Dose: 5 mg Dicyclomine HCl (Dicyclomine Hcl 10 Mg Capsule) 10 mg PO QIDACHS [facility] Last Admin: 08/24/22 10:38 Dose: 10 mg Docusate Sodium (Docusate Sodium 100 Mg Capsule) 100 mg PO BID [facility] Last Admin: 08/24/22 10:37 Dose: 100 mg Famotidine (Famotidine 20 Mg Tablet) 20 mg PO BEDTIME [facility] Last Admin: 08/23/22 20:25 Dose: 20 mg Gabapentin (Gabapentin 100 Mg Capsule) 100 mg PO BID [facility] Last Admin: 08/24/22 10:37 Dose: 100 mg Hydroxyzine HCl (Hydroxyzine Hcl 50 Mg Tablet) 50 mg PO Q6H PRN PRN Reason: anxiety Loperamide HCl (Loperamide Hcl 2 Mg Capsule) 2 mg PO Q4H PRN PRN Reason: diarrhea Last Admin: 08/20/22 18:29 Dose: 2 mg Magnesium Hydroxide (Milk Of Magnesia 30 Ml Oral.Susp) 30 ml PO DAILY PRN PRN Reason: Constipation Methadone HCl (Methadone Hcl 20 Mg/2 Ml Oral.Conc) 45 mg PO DAILY [facility] Last Admin: 08/24/22 10:32 Dose: 45 mg Nicotine (Nicotine 14 Mg Patch.Td24) 14 mg TRANSDERMA DAILY [facility] Last Admin: 08/24/22 10:40 Dose: 14 mg Nicotine Polacrilex (Nicotine Polacrilex 2 Mg Gum) 4 mg BUCCAL Q2H PRN PRN Reason: Nicotine Cravings Omeprazole (Omeprazole 40 Mg Capsule.Dr) 40 mg PO DAILY@0630 [facility] Last Admin: 08/24/22 10:37 Dose: 40 mg Ondansetron HCl (Ondansetron Odt 4 Mg Tab.Rapdis) 4 mg TRANSLINGU Q6H PRN PRN Reason: Nausea Oxycodone HCl (Oxycodone Hcl Immed Release 5 Mg Tablet) 5 mg PO Q4H PRN PRN Reason: Pain (Scale Score 7-10) Last Admin: 08/23/22 20:25 Dose: 5 mg Quetiapine Fumarate (Quetiapine Fumarate 50 Mg Tablet) 50 mg PO Q4H PRN PRN Reason: AH/agitation Last Admin: 08/20/22 23:25 Dose: 50 mg Quetiapine Fumarate (Quetiapine Fumarate 100 Mg Tablet) 100 mg PO DAILY [facility] Last Admin: 08/24/22 10:41 Dose: Not Given Quetiapine Fumarate (Quetiapine Fumarate 50 Mg Tablet) 250 mg PO BEDTIME [facility] Last Admin: 08/23/22 20:23 Dose: 250 mg Thiamine HCl (Thiamine Hcl 100 Mg Tablet) 100 mg PO DAILY [facility] Last Admin: 08/24/22 10:41 Dose: Not Given Trazodone HCl (Trazodone Hcl 50 Mg Tablet) 50 mg PO BEDTIME MRX1 PRN PRN Reason: Insomnia Last Admin: 08/20/22 23:25 Dose: 50 mg Trazodone HCl (Trazodone Hcl 100 Mg Tablet) 200 mg PO BEDTIME [facility] Last Admin: 08/23/22 20:24 Dose: 200 mg Allergies Allergies Allergy/AdvReac Type Severity Reaction Status Date / Time haloperidol [From Haldol] AdvReac see note Verified 08/09/22 20:44 Assessment & Plan Assessment & Plan (1) Abdominal pain: Status: Acute Code(s): R10.9 - Unspecified abdominal pain Assessment and Plan: 47-year-old male with history IV drug abuse, hypertension, major depressive disorder with psychosis, cocaine abuse admitted to Psychiatry with consult placed to hospital service for management of severe abdominal pain with nausea and vomiting. Symptoms of nausea/vomiting/diarrhea improved since admission 2 weeks ago. Increased left sided abdominal pain today. KUB is reassuring. Creat trending down since medical admission. No leukocytosis. CRP/ESR is elevated likely related to inflammation in the colon, ?IBD vs ?IBS. Given colicky nature of pain seems more consistent with IBS. Would recommend antispasmotic treatment with bentyl. Weight loss and anorexia likely related to grief, drug use, abd pain. Recommend ensures and bland diet as tolerated. Continue encouraging PO fluids (water specifically- drinking alot of juice). Ondansetron and famotidine ok prn for nausea. If symptoms not improving, consider GI consult. Recommend avoiding further abd CT unless symptoms not improving or worsen as patient has had 9 CT's this year alone. We will continue following. (2) Post traumatic stress disorder (PTSD): Status: Acute Code(s): F43.10 - Post-traumatic stress disorder, unspecified (3) Major depression, recurrent: Status: Acute Code(s): F33.9 - Major depressive disorder, recurrent, unspecified (4) Polysubstance abuse: Status: Acute Code(s): F19.10 - Other psychoactive substance abuse, uncomplicated Plan continue meds from medicine admission. add seroquel 100 mg QAM, 50 mg Q4H PRN AH/psychosis. add clonidine 0.1 mg TID. T/C sec 35. 08/21:? dizzy, + orthostatic hypotension.? push fluids.? DC clonidine for now.? abd pain for past 8-9 days, already on omep 40.? adding famotidine 20 daily as well. 08/22:? c/o stomach pain, intermittently severe.? also dizziness, intermittent nausea, poor PO intake 2/2 pain, vomiting.? increase methadone to 45. 08/23: bentyl added last night, scheduled. eating better, no vomiting, but pt says pain is the same. increase trazodone to 200 and seroquel to 250 at HS for insomnia. appears weak and medically ill. 08/24: appears less ill today, more expressive. denies stomach pain/n/v. HOLD norvasc due to hypotension. otherwise continue current mgmt. plan to DC oxycodone soon unless strong rationale to continue can be found. Reason for continued inpatient stay Substantial Risk for: harm to self, inability to function and rapid decompensation Time Spent With Patient Time: Total time managing care of this patient today ____ minutes.
[2022-08-24] MEDS: Magnesium Hydrox/Alum Hydrox 30 ML ORAL.SUSP PO (17:50)
[2022-08-24] MEDS: Acetaminophen 325 MG TABLET 650 MG PO (19:17)
[2022-08-24] MEDS: QUEtiapine Fumarate 50 MG TABLET 250 MG PO (20:49)
[2022-08-24] MEDS: oxyCODONE HCl Immed Release 5 MG TABLET PO (20:51)
[2022-08-24] MEDS: Famotidine 20 MG TABLET PO (20:51)
[2022-08-24] MEDS: traZODone HCL 100 MG TABLET 200 MG PO (20:52)
[2022-08-24 21:00] VITALS: BP 134/85; PULSE 98; RESP 16; TEMP 36.6; O2SAT 96
[2022-08-25 06:00] VITALS: BP 116/72; PULSE 91; RESP 18; TEMP 36.8; O2SAT 99
[2022-08-25] MEDS: methADONE HCl 20 MG/2 ML ORAL.CONC 45 MG PO (10:38)
[2022-08-25] MEDS: buPROPion HCl XL 150 MG TAB.ER.24H PO (10:40)
[2022-08-25] MEDS: Omeprazole 40 MG CAPSULE.DR PO (10:40)
[2022-08-25] MEDS: Dicyclomine HCl 10 MG CAPSULE PO ×4 (10:40→20:56)
[2022-08-25] MEDS: Cyclobenzaprine HCl 5 MG TABLET PO ×3 (10:40→20:57)
[2022-08-25] MEDS: Nicotine 14 MG PATCH.TD24 TRANSDERMA (10:40)
[2022-08-25] MEDS: QUEtiapine Fumarate 100 MG TABLET PO ×2 (10:40→14:10)
[2022-08-25] MEDS: Gabapentin 100 MG CAPSULE PO ×2 (10:40→20:57)
[2022-08-25] MEDS: Loperamide HCl 2 MG CAPSULE PO (10:48)
[2022-08-25] MEDS: methADONE HCl 20 MG/2 ML ORAL.CONC 5 MG PO (12:30)
--- NOTE | 2022-08-25 15:24 | P.PNPSI_ITS ---
Subjective Subjective Date of Service: 08/25/22 Reason For Visit: SI Interim History: c/o abd pain again, diarrhea. eating worsens pain. still anxious, still AH. interested in increasing seroquel, methadone. per staff, quiet, withdrawn. AH bad. partially compliant. poor appetite. +AVH. irritable, guarded. c/o abd pain. Mental Status Exam Mental Status Exam Narrative: pt is alert, oriented and pleasant. speech nml rate, amount, loudness, latency. fair eye contact. Affect is normo-intense, mod-labile. mood depressed and anxious. +SI, AH. no HI, VH expressed. Cognitively is intact. Judgment is impaired Diagnostics Vital Signs (24Hr): Vital Signs - 24 hr 08/24/22 21:00 08/25/22 06:00 Temperature 98 F 98.3 F Pulse Rate 98 91 Respiratory Rate 16 18 Blood Pressure 134/85 116/72 Pulse Oximetry 96 99 Oxygen Delivery Method Room Air Room Air Labs 08/22/22 17:59 08/22/22 17:59 Imaging Radiology Impressions: ITS Impressions KUB X-Ray 08/22/22 18:16 IMPRESSION: No evidence of bowel obstruction. Large amount of stool in the right colon.. Medications Medications Current Medications Acetaminophen (Acetaminophen 325 Mg Tablet) 650 mg PO Q6H PRN PRN Reason: Headache/Pain Mild Scale (1-3) Last Admin: 08/24/22 19:17 Dose: 650 mg Al Hydroxide/Mg Hydroxide (Magnesium Hydrox/Alum Hydrox 30 Ml Oral.Susp) 30 ml PO Q6H PRN PRN Reason: Heartburn/Nausea Last Admin: 08/24/22 17:50 Dose: 30 ml Amlodipine Besylate (Amlodipine Besylate 10 Mg Tablet) 10 mg PO DAILY [facility]; Protocol Last Admin: 08/24/22 10:40 Dose: Not Given Bupropion HCl (Bupropion Hcl Xl 150 Mg Tab.Er.24h) 150 mg PO DAILY [facility] Last Admin: 08/25/22 10:40 Dose: 150 mg Calcium Carbonate (Calcium Carbonate 500 Mg Tablet) 500 mg PO BID [facility] Last Admin: 08/25/22 10:41 Dose: Not Given Cyclobenzaprine HCl (Cyclobenzaprine Hcl 5 Mg Tablet) 5 mg PO TID [facility] Last Admin: 08/25/22 14:09 Dose: 5 mg Dicyclomine HCl (Dicyclomine Hcl 10 Mg Capsule) 10 mg PO QIDACHS [facility] Last Admin: 08/25/22 12:30 Dose: 10 mg Docusate Sodium (Docusate Sodium 100 Mg Capsule) 100 mg PO BID [facility] Last Admin: 08/25/22 10:41 Dose: Not Given Famotidine (Famotidine 20 Mg Tablet) 20 mg PO BEDTIME [facility] Last Admin: 08/24/22 20:51 Dose: 20 mg Gabapentin (Gabapentin 100 Mg Capsule) 100 mg PO BID [facility] Last Admin: 08/25/22 10:40 Dose: 100 mg Hydroxyzine HCl (Hydroxyzine Hcl 50 Mg Tablet) 50 mg PO Q6H PRN PRN Reason: anxiety Loperamide HCl (Loperamide Hcl 2 Mg Capsule) 2 mg PO Q4H PRN PRN Reason: diarrhea Last Admin: 08/25/22 10:48 Dose: 2 mg Magnesium Hydroxide (Milk Of Magnesia 30 Ml Oral.Susp) 30 ml PO DAILY PRN PRN Reason: Constipation Methadone HCl (Methadone Hcl 20 Mg/2 Ml Oral.Conc) 50 mg PO DAILY [facility] Nicotine (Nicotine 14 Mg Patch.Td24) 14 mg TRANSDERMA DAILY [facility] Last Admin: 08/25/22 10:40 Dose: 14 mg Nicotine Polacrilex (Nicotine Polacrilex 2 Mg Gum) 4 mg BUCCAL Q2H PRN PRN Reason: Nicotine Cravings Omeprazole (Omeprazole 40 Mg Capsule.Dr) 40 mg PO DAILY@0630 [facility] Last Admin: 08/25/22 10:40 Dose: 40 mg Ondansetron HCl (Ondansetron Odt 4 Mg Tab.Rapdis) 4 mg TRANSLINGU Q6H PRN PRN Reason: Nausea Oxycodone HCl (Oxycodone Hcl Immed Release 5 Mg Tablet) 5 mg PO Q6H PRN PRN Reason: Pain, Severe (Pain Scale 8-10) Last Admin: 08/24/22 20:51 Dose: 5 mg Quetiapine Fumarate (Quetiapine Fumarate 50 Mg Tablet) 50 mg PO Q4H PRN PRN Reason: AH/agitation Last Admin: 08/20/22 23:25 Dose: 50 mg Quetiapine Fumarate (Quetiapine Fumarate 50 Mg Tablet) 250 mg PO BEDTIME [facility] Last Admin: 08/24/22 20:49 Dose: 250 mg Quetiapine Fumarate (Quetiapine Fumarate 100 Mg Tablet) 100 mg PO BID@0900,1500 [facility] Last Admin: 08/25/22 14:10 Dose: 100 mg Thiamine HCl (Thiamine Hcl 100 Mg Tablet) 100 mg PO DAILY [facility] Last Admin: 08/25/22 10:41 Dose: Not Given Trazodone HCl (Trazodone Hcl 50 Mg Tablet) 50 mg PO BEDTIME MRX1 PRN PRN Reason: Insomnia Last Admin: 08/20/22 23:25 Dose: 50 mg Trazodone HCl (Trazodone Hcl 100 Mg Tablet) 200 mg PO BEDTIME [facility] Last Admin: 08/24/22 20:52 Dose: 200 mg Allergies Allergies Allergy/AdvReac Type Severity Reaction Status Date / Time haloperidol [From Haldol] AdvReac see note Verified 08/09/22 20:44 Assessment & Plan Assessment & Plan (1) Abdominal pain: Status: Acute Code(s): R10.9 - Unspecified abdominal pain Assessment and Plan: 47-year-old male with history IV drug abuse, hypertension, major depressive disorder with psychosis, cocaine abuse admitted to Psychiatry with consult placed to hospital service for management of severe abdominal pain with nausea and vomiting. Symptoms of nausea/vomiting/diarrhea improved since admission 2 weeks ago. Increased left sided abdominal pain today. KUB is reassuring. Creat trending down since medical admission. No leukocytosis. CRP/ESR is elevated likely related to inflammation in the colon, ?IBD vs ?IBS. Given colicky nature of pain seems more consistent with IBS. Would recommend antispasmotic treatment with bentyl. Weight loss and anorexia likely related to grief, drug use, abd pain. Recommend ensures and bland diet as tolerated. Continue encouraging PO fluids (water specifically- drinking alot of juice). Ondansetron and famotidine ok prn for nausea. If symptoms not improving, consider GI consult. Recommend avoiding further abd CT unless symptoms not improving or worsen as patient has had 9 CT's this year alone. We will continue following. (2) Post traumatic stress disorder (PTSD): Status: Acute Code(s): F43.10 - Post-traumatic stress disorder, unspecified (3) Major depression, recurrent: Status: Acute Code(s): F33.9 - Major depressive disorder, recurrent, unspecified (4) Polysubstance abuse: Status: Acute Code(s): F19.10 - Other psychoactive substance abuse, uncomplicated Plan continue meds from medicine admission. add seroquel 100 mg QAM, 50 mg Q4H PRN AH/psychosis. add clonidine 0.1 mg TID. T/C sec 35. 08/21:? dizzy, + orthostatic hypotension.? push fluids.? DC clonidine for now.? abd pain for past 8-9 days, already on omep 40.? adding famotidine 20 daily as well. 08/22:? c/o stomach pain, intermittently severe.? also dizziness, intermittent n ausea, poor PO intake 2/2 pain, vomiting.? increase methadone to 45. 08/23: bentyl added last night, scheduled. eating better, no vomiting, but pt says pain is the same. increase trazodone to 200 and seroquel to 250 at HS for insomnia. appears weak and medically ill. 08/24: appears less ill today, more expressive. denies stomach pain/n/v. HOLD norvasc due to hypotension. otherwise continue current mgmt. plan to DC oxycodone soon unless strong rationale to continue can be found. 08/25: c/o stomach pain again, diarrhea. agrees to increase methadone to 50 mg daily, increase seroquel to 100/100/250. Reason for continued inpatient stay Substantial Risk for: harm to self, inability to function and rapid decompensation Time Spent With Patient Time: Total time managing care of this patient today _25___ minutes.
[2022-08-25] MEDS: oxyCODONE HCl Immed Release 5 MG TABLET PO (18:00)
[2022-08-25 20:10] VITALS: BP 130/78; PULSE 103; RESP 16; TEMP 36.6; O2SAT 97
[2022-08-25] MEDS: traZODone HCL 100 MG TABLET 200 MG PO (20:56)
[2022-08-25] MEDS: QUEtiapine Fumarate 50 MG TABLET 250 MG PO (20:56)
[2022-08-25] MEDS: Famotidine 20 MG TABLET PO (20:57)
[2022-08-26] MEDS: Nicotine 14 MG PATCH.TD24 TRANSDERMA (09:04)
[2022-08-26] MEDS: Omeprazole 40 MG CAPSULE.DR PO (09:05)
[2022-08-26] MEDS: Dicyclomine HCl 10 MG CAPSULE PO ×4 (09:19→20:56)
[2022-08-26] MEDS: buPROPion HCl XL 150 MG TAB.ER.24H PO (09:19)
[2022-08-26] MEDS: Cyclobenzaprine HCl 5 MG TABLET PO ×3 (09:19→20:57)
[2022-08-26] MEDS: QUEtiapine Fumarate 100 MG TABLET PO ×2 (09:21→14:26)
[2022-08-26] MEDS: Gabapentin 100 MG CAPSULE PO (09:25)
[2022-08-26 10:16] VITALS: BP 109/69; PULSE 88; RESP 18; TEMP 36.9; O2SAT 96
[2022-08-26] MEDS: methADONE HCl 20 MG/2 ML ORAL.CONC 50 MG PO (11:37)
--- NOTE | 2022-08-26 14:21 | P.PNPSI_ITS ---
Subjective Subjective Date of Service: 08/26/22 Reason For Visit: SI Interim History: seen in his room. quiet, cooperative. c/o stomach pain. c/o anxiety/depression. c/o voices, moving shadows. agreeable to increase gabapentin and wellbutrin to address anxiety and depression, respectively. reports DFA, but once asleep sleeps well. per staff, c/o abd pain. CAH to damage himself. slept OK, but with nightmares. not attending grops. isolative. social with select peers. c/o 02/02 abd pain. Mental Status Exam Mental Status Exam Narrative: pt is alert, oriented and pleasant. speech nml rate, amount, loudness, latency. fair eye contact. Affect is normo-intense, non-labile. mood depressed and anxious. + AH. no SI/HI, VH expressed. Cognitively is intact. Judgment is impaired Diagnostics Vital Signs (24Hr): Vital Signs - 24 hr 08/25/22 20:10 08/26/22 10:16 Temperature 97.8 F 98.4 F Pulse Rate 103 H 88 Respiratory Rate 16 18 Blood Pressure 130/78 109/69 Pulse Oximetry 97 96 Oxygen Delivery Method Room Air Room Air Labs 08/22/22 17:59 08/22/22 17:59 Imaging Radiology Impressions: ITS Impressions KUB X-Ray 08/22/22 18:16 IMPRESSION: No evidence of bowel obstruction. Large amount of stool in the right colon.. Medications Medications Current Medications Acetaminophen (Acetaminophen 325 Mg Tablet) 650 mg PO Q6H PRN PRN Reason: Headache/Pain Mild Scale (1-3) Last Admin: 08/24/22 19:17 Dose: 650 mg Al Hydroxide/Mg Hydroxide (Magnesium Hydrox/Alum Hydrox 30 Ml Oral.Susp) 30 ml PO Q6H PRN PRN Reason: Heartburn/Nausea Last Admin: 08/24/22 17:50 Dose: 30 ml Amlodipine Besylate (Amlodipine Besylate 10 Mg Tablet) 10 mg PO DAILY [facility]; Protocol Last Admin: 08/24/22 10:40 Dose: Not Given Bupropion HCl (Bupropion Hcl Xl 300 Mg Tab.Er.24h) 300 mg PO DAILY [facility] Calcium Carbonate (Calcium Carbonate 500 Mg Tablet) 500 mg PO BID [facility] Last Admin: 08/26/22 09:25 Dose: Not Given Cyclobenzaprine HCl (Cyclobenzaprine Hcl 5 Mg Tablet) 5 mg PO TID [facility] Last Admin: 08/26/22 09:19 Dose: 5 mg Dicyclomine HCl (Dicyclomine Hcl 10 Mg Capsule) 10 mg PO QIDACHS [facility] Last Admin: 08/26/22 11:37 Dose: 10 mg Docusate Sodium (Docusate Sodium 100 Mg Capsule) 100 mg PO BID [facility] Last Admin: 08/26/22 09:25 Dose: Not Given Famotidine (Famotidine 20 Mg Tablet) 20 mg PO BEDTIME [facility] Last Admin: 08/25/22 20:57 Dose: 20 mg Gabapentin (Gabapentin 300 Mg Capsule) 300 mg PO TID [facility] Last Admin: 08/26/22 12:51 Dose: Not Given Hydroxyzine HCl (Hydroxyzine Hcl 50 Mg Tablet) 50 mg PO Q6H PRN PRN Reason: anxiety Loperamide HCl (Loperamide Hcl 2 Mg Capsule) 2 mg PO Q4H PRN PRN Reason: diarrhea Last Admin: 08/25/22 10:48 Dose: 2 mg Magnesium Hydroxide (Milk Of Magnesia 30 Ml Oral.Susp) 30 ml PO DAILY PRN PRN Reason: Constipation Methadone HCl (Methadone Hcl 20 Mg/2 Ml Oral.Conc) 50 mg PO DAILY [facility] Last Admin: 08/26/22 11:37 Dose: 50 mg Nicotine (Nicotine 14 Mg Patch.Td24) 14 mg TRANSDERMA DAILY [facility] Last Admin: 08/26/22 09:04 Dose: 14 mg Nicotine Polacrilex (Nicotine Polacrilex 2 Mg Gum) 4 mg BUCCAL Q2H PRN PRN Reason: Nicotine Cravings Omeprazole (Omeprazole 40 Mg Capsule.Dr) 40 mg PO DAILY@0630 [facility] Last Admin: 08/26/22 09:05 Dose: 40 mg Ondansetron HCl (Ondansetron Odt 4 Mg Tab.Rapdis) 4 mg TRANSLINGU Q6H PRN PRN Reason: Nausea Oxycodone HCl (Oxycodone Hcl Immed Release 5 Mg Tablet) 5 mg PO Q6H PRN PRN Reason: Pain, Severe (Pain Scale 7-10) Last Admin: 08/25/22 18:00 Dose: 5 mg Quetiapine Fumarate (Quetiapine Fumarate 50 Mg Tablet) 50 mg PO Q4H PRN PRN Reason: AH/agitation Last Admin: 08/20/22 23:25 Dose: 50 mg Quetiapine Fumarate (Quetiapine Fumarate 50 Mg Tablet) 250 mg PO BEDTIME [facility] Last Admin: 08/25/22 20:56 Dose: 250 mg Quetiapine Fumarate (Quetiapine Fumarate 100 Mg Tablet) 100 mg PO BID@0900,1500 [facility] Last Admin: 08/26/22 09:21 Dose: 100 mg Thiamine HCl (Thiamine Hcl 100 Mg Tablet) 100 mg PO DAILY [facility] Last Admin: 08/26/22 09:21 Dose: Not Given Trazodone HCl (Trazodone Hcl 50 Mg Tablet) 50 mg PO BEDTIME MRX1 PRN PRN Reason: Insomnia Last Admin: 08/20/22 23:25 Dose: 50 mg Trazodone HCl (Trazodone Hcl 100 Mg Tablet) 200 mg PO BEDTIME [facility] Last Admin: 08/25/22 20:56 Dose: 200 mg Allergies Allergies Allergy/AdvReac Type Severity Reaction Status Date / Time haloperidol [From Haldol] AdvReac see note Verified 08/09/22 20:44 Assessment & Plan Assessment & Plan (1) Abdominal pain: Status: Acute Code(s): R10.9 - Unspecified abdominal pain Assessment and Plan: 47-year-old male with history IV drug abuse, hypertension, major depressive disorder with psychosis, cocaine abuse admitted to Psychiatry with consult placed to hospital service for management of severe abdominal pain with nausea and vomiting. Symptoms of nausea/vomiting/diarrhea improved since admission 2 weeks ago. Increased left sided abdominal pain today. KUB is reassuring. Creat trending down since medical admission. No leukocytosis. CRP/ESR is elevated likely related to inflammation in the colon, ?IBD vs ?IBS. Given colicky nature of pain seems more consistent with IBS. Would recommend antispasmotic treatment with bentyl. Weight loss and anorexia likely related to grief, drug use, abd pain. Recommend ensures and bland diet as tolerated. Continue encouraging PO fluids (water specifically- drinking alot of juice). Ondansetron and famotidine ok prn for nausea. If symptoms not improving, consider GI consult. Recommend avoiding further abd CT unless symptoms not improving or worsen as patient has had 9 CT's this year alone. We will continue following. (2) Post traumatic stress disorder (PTSD): Status: Acute Code(s): F43.10 - Post-traumatic stress disorder, unspecified (3) Major depression, recurrent: Status: Acute Code(s): F33.9 - Major depressive disorder, recurrent, unspecified (4) Polysubstance abuse: Status: Acute Code(s): F19.10 - Other psychoactive substance abuse, uncomplicated Plan continue meds from medicine admission. add seroquel 100 mg QAM, 50 mg Q4H PRN AH/psychosis. add clonidine 0.1 mg TID. T/C sec 35. 08/21:? dizzy, + orthostatic hypotension.? push fluids.? DC clonidine for now.? abd pain for past 8-9 days, already on omep 40.? adding famotidine 20 daily as well. 08/22:? c/o stomach pain, intermittently severe.? also dizziness, intermittent nausea, poor PO intake 2/2 pain, vomiting.? increase methadone to 45. 08/23: bentyl added last night, scheduled. eating better, no vomiting, but pt says pain is the same. increase trazodone to 200 and seroquel to 250 at HS for insomnia. appears weak and medically ill. 08/24: appears less ill today, more expressive. denies stomach pain/n/v. HOLD norvasc due to hypotension. otherwise continue current mgmt. plan to DC oxycodone soon unless strong rationale to continue can be found. 08/25: c/o stomach pain again, diarrhea. agrees to increase methadone to 50 mg daily, increase seroquel to 100/100/250. 08/26: c/o stomach pain. agrees to increase gabapentin from 100 BID to 300 TID. also to increase wellbutrin from 150 daily to 300 daily. depressed, +AH. Reason for continued inpatient stay Substantial Risk for: harm to self, inability to function and rapid decompensation Time Spent With Patient Time: Total time managing care of this patient today __25__ minutes.
[2022-08-26] MEDS: Gabapentin 300 MG CAPSULE PO ×2 (14:26→20:56)
[2022-08-26] MEDS: oxyCODONE HCl Immed Release 5 MG TABLET PO (15:42)
[2022-08-26 16:28] VITALS: BP 117/69; PULSE 87; RESP 18; TEMP 36.3; O2SAT 98
[2022-08-26 20:00] VITALS: BP 113/64; PULSE 89; RESP 16; TEMP 36.6; O2SAT 96
[2022-08-26] MEDS: QUEtiapine Fumarate 50 MG TABLET 250 MG PO (20:56)
[2022-08-26] MEDS: Famotidine 20 MG TABLET PO (20:56)
[2022-08-26] MEDS: traZODone HCL 100 MG TABLET 200 MG PO (20:57)
--- NOTE | 2022-08-26 22:42 | PM.EVENT ---
Documented by User: [email or web address] Irving 08/26/22 22:48 Event Note Date of Service: 08/26/22 Event Note: Patient's abdominal pain has returned the past few days. States always has pain postprandial, and at other times pain comes and goes. Pain primarily located on left side and sometimes radiating to the back. Patient also complains of nausea with no vomiting, has 2-3 episodes of nonbloody diarrhea each day. Has chills, but no fever. Patient was recently started on Bentyl with no noticeable improvement of symptoms. Etiology of patient's symptoms unclear, but ischemic colitis high in the differential. Will defer CT scan of abdomen and pelvis for now given the patient's many previous scans in the past few months. Will consult with GI for further evaluation and management input. Time Spent With Patient Time: Total time managing care of this patient today ____ minutes. Documented by User: Moses Mishra MD 08/27/22 08:18 Event Note Date of Service: 08/27/22
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
[2022-08-27] MEDS: Nicotine 14 MG PATCH.TD24 TRANSDERMA (10:26)
[2022-08-27] MEDS: buPROPion HCl XL 300 MG TAB.ER.24H PO (10:28)
[2022-08-27] MEDS: Dicyclomine HCl 10 MG CAPSULE PO ×4 (10:29→22:04)
[2022-08-27] MEDS: Cyclobenzaprine HCl 5 MG TABLET PO ×3 (10:29→22:00)
[2022-08-27] MEDS: methADONE HCl 20 MG/2 ML ORAL.CONC 50 MG PO (10:29)
[2022-08-27] MEDS: QUEtiapine Fumarate 100 MG TABLET PO ×2 (10:29→15:38)
[2022-08-27] MEDS: oxyCODONE HCl Immed Release 5 MG TABLET PO ×2 (10:29→22:01)
[2022-08-27] MEDS: Omeprazole 40 MG CAPSULE.DR PO (10:29)
[2022-08-27] MEDS: Gabapentin 300 MG CAPSULE PO ×3 (10:29→22:00)
[2022-08-27 11:09] VITALS: BP 122/76; PULSE 88; RESP 18; TEMP 36.4; O2SAT 95
[2022-08-27] MEDS: hydrOXYzine HCL 50 MG TABLET PO (11:45)
[2022-08-27] MEDS: Loperamide HCl 2 MG CAPSULE PO (13:25)
[2022-08-27] MEDS: Ondansetron ODT 4 MG TAB.RAPDIS TRANSLINGU (15:41)
--- NOTE | 2022-08-27 19:36 | PC.NURSE ---
Pt seen by Dr. Winkler for his continued GI pain and diarrhea. Pt will be scheduled for colonoscopy and endoscopy possibly on 08/28/22. (See consult). Pt aware and educated on the procedures and the purpose.
[2022-08-27 21:55] VITALS: BP 118/73; PULSE 103; RESP 18; TEMP 36.4; O2SAT 97
[2022-08-27] MEDS: QUEtiapine Fumarate 50 MG TABLET 250 MG PO (21:59)
[2022-08-27] MEDS: Famotidine 20 MG TABLET PO (22:00)
[2022-08-27] MEDS: traZODone HCL 100 MG TABLET 200 MG PO (22:00)
[2022-08-28] MEDS: Acetaminophen 325 MG TABLET 650 MG PO ×2 (00:29→14:15)
[2022-08-28 06:00] VITALS: BP 125/82; PULSE 101; RESP 18; TEMP 36.7; O2SAT 98
--- NOTE | 2022-08-28 07:11 | HO.PSYCHPN ---
Subjective Subjective Date of Service: 08/27/22 Reason For Visit: SI Subjective Notes: Conditional Voluntary Interim History: This procedure writer explained that I was covering for Dr. Abdul, pt reports I hear voices, I an severely depressed, I am in pain and I am just waiting to go! When asked, about intention of leaving hospital, pt states so I can kill myself! Pt reports he does not think psychiatric treatment will help him and eventually he will kill himself. He then stated I have nothing else to say, thank you turned around and declined to talk with this procedure writer any further. Medication Compliance: Yes Review of Systems Review of Systems General: No fevers, malaise, unintentional weight loss HEENT: No blurred vision, diplopia. No sore throat, nasal congestion, rhinorrhea, sinus pain, ear pain Cardiovascular: No chest pain, palpitations, or leg edema Respiratory: No shortness of breath, wheezing, cough GI: +abd pain, n/v/d. No constipation, melena, hematochezia : No dysuria, hematuria, increased urinary frequency, decreased urinary output MSK: No myalgia, back pain Neuro: No headaches, weakness, paresthesias Skin: No rashes or lesions Mental Status Exam Mental Status Exam Narrative: pt is alert, oriented and pleasant. speech nml rate, amount, loudness, latency. fair eye contact. Affect is normo-intense, non-labile. mood depressed and anxious. + AH. no SI/HI, VH expressed. Cognitively is intact. Judgment is impaired Diagnostics Vital Signs (24Hr): Vital Signs - 24 hr 08/27/22 11:09 08/27/22 21:55 Temperature 97.6 F 97.6 F Pulse Rate 88 103 H Respiratory Rate 18 18 Blood Pressure 122/76 118/73 Pulse Oximetry 95 97 Oxygen Delivery Method Room Air Room Air Labs 08/22/22 17:59 08/22/22 17:59 Imaging Radiology Impressions: ITS Impressions KUB X-Ray 08/22/22 18:16 IMPRESSION: No evidence of bowel obstruction. Large amount of stool in the right colon.. Medications Medications Current Medications Acetaminophen (Acetaminophen 325 Mg Tablet) 650 mg PO Q6H PRN PRN Reason: Headache/Pain Mild Scale (1-3) Last Admin: 08/28/22 00:29 Dose: 650 mg Al Hydroxide/Mg Hydroxide (Magnesium Hydrox/Alum Hydrox 30 Ml Oral.Susp) 30 ml PO Q6H PRN PRN Reason: Heartburn/Nausea Last Admin: 08/24/22 17:50 Dose: 30 ml Amlodipine Besylate (Amlodipine Besylate 10 Mg Tablet) 10 mg PO DAILY [facility]; Protocol Last Admin: 08/24/22 10:40 Dose: Not Given Bupropion HCl (Bupropion Hcl Xl 300 Mg Tab.Er.24h) 300 mg PO DAILY [facility] Last Admin: 08/27/22 10:28 Dose: 300 mg Calcium Carbonate (Calcium Carbonate 500 Mg Tablet) 500 mg PO BID [facility] Last Admin: 08/27/22 22:09 Dose: Not Given Cyclobenzaprine HCl (Cyclobenzaprine Hcl 5 Mg Tablet) 5 mg PO TID [facility] Last Admin: 08/27/22 22:00 Dose: 5 mg Dicyclomine HCl (Dicyclomine Hcl 10 Mg Capsule) 10 mg PO QIDACHS [facility] Last Admin: 08/27/22 22:04 Dose: 10 mg Docusate Sodium (Docusate Sodium 100 Mg Capsule) 100 mg PO BID [facility] Last Admin: 08/27/22 22:09 Dose: Not Given Famotidine (Famotidine 20 Mg Tablet) 20 mg PO BEDTIME [facility] Last Admin: 08/27/22 22:00 Dose: 20 mg Gabapentin (Gabapentin 300 Mg Capsule) 300 mg PO TID [facility] Last Admin: 08/27/22 22:00 Dose: 300 mg Hydroxyzine HCl (Hydroxyzine Hcl 50 Mg Tablet) 50 mg PO Q6H PRN PRN Reason: anxiety Last Admin: 08/27/22 11:45 Dose: 50 mg Loperamide HCl (Loperamide Hcl 2 Mg Capsule) 2 mg PO Q4H PRN PRN Reason: diarrhea Last Admin: 08/27/22 13:25 Dose: 2 mg Magnesium Hydroxide (Milk Of Magnesia 30 Ml Oral.Susp) 30 ml PO DAILY PRN PRN Reason: Constipation Methadone HCl (Methadone Hcl 20 Mg/2 Ml Oral.Conc) 50 mg PO DAILY [facility] Last Admin: 08/27/22 10:29 Dose: 50 mg Nicotine (Nicotine 14 Mg Patch.Td24) 14 mg TRANSDERMA DAILY [facility] Last Admin: 08/27/22 10:26 Dose: 14 mg Nicotine Polacrilex (Nicotine Polacrilex 2 Mg Gum) 4 mg BUCCAL Q2H PRN PRN Reason: Nicotine Cravings Omeprazole (Omeprazole 40 Mg Capsule.Dr) 40 mg PO DAILY@0630 [facility] Last Admin: 08/27/22 10:29 Dose: 40 mg Ondansetron HCl (Ondansetron Odt 4 Mg Tab.Rapdis) 4 mg TRANSLINGU Q6H PRN PRN Reason: Nausea Last Admin: 08/27/22 15:41 Dose: 4 mg Oxycodone HCl (Oxycodone Hcl Immed Release 5 Mg Tablet) 5 mg PO Q6H PRN PRN Reason: Pain, Severe (Pain Scale 7-10) Last Admin: 08/27/22 22:01 Dose: 5 mg Quetiapine Fumarate (Quetiapine Fumarate 50 Mg Tablet) 50 mg PO Q4H PRN PRN Reason: AH/agitation Last Admin: 08/20/22 23:25 Dose: 50 mg Quetiapine Fumarate (Quetiapine Fumarate 50 Mg Tablet) 250 mg PO BEDTIME [facility] Last Admin: 08/27/22 21:59 Dose: 250 mg Quetiapine Fumarate (Quetiapine Fumarate 100 Mg Tablet) 100 mg PO BID@0900,1500 [facility] Last Admin: 08/27/22 15:38 Dose: 100 mg Thiamine HCl (Thiamine Hcl 100 Mg Tablet) 100 mg PO DAILY [facility] Last Admin: 08/27/22 10:33 Dose: Not Given Trazodone HCl (Trazodone Hcl 50 Mg Tablet) 50 mg PO BEDTIME MRX1 PRN PRN Reason: Insomnia Last Admin: 08/20/22 23:25 Dose: 50 mg Trazodone HCl (Trazodone Hcl 100 Mg Tablet) 200 mg PO BEDTIME [facility] Last Admin: 08/27/22 22:00 Dose: 200 mg Allergies Allergies Allergy/AdvReac Type Severity Reaction Status Date / Time haloperidol [From Haldol] AdvReac see note Verified 08/09/22 20:44 Assessment & Plan Assessment & Plan (1) MDD (major depressive disorder), recurrent episode, moderate: Status: Acute Code(s): F33.1 - Major depressive disorder, recurrent, moderate (2) Abdominal pain: Status: Acute Code(s): R10.9 - Unspecified abdominal pain (3) Ischemic colitis: Status: Acute Code(s): K55.9 - Vascular disorder of intestine, unspecified Plan 08/27 continue tx. Reason for continued inpatient stay Substantial Risk for: harm to self Time Spent With Patient Time: Total time managing care of this patient today ____ minutes.
[2022-08-28] MEDS: buPROPion HCl XL 300 MG TAB.ER.24H PO (10:32)
[2022-08-28] MEDS: Loperamide HCl 2 MG CAPSULE PO (10:32)
[2022-08-28] MEDS: Ondansetron ODT 4 MG TAB.RAPDIS TRANSLINGU (10:32)
[2022-08-28] MEDS: Dicyclomine HCl 10 MG CAPSULE PO ×3 (10:32→21:01)
[2022-08-28] MEDS: Omeprazole 40 MG CAPSULE.DR PO (10:32)
[2022-08-28] MEDS: Cyclobenzaprine HCl 5 MG TABLET PO ×3 (10:33→21:00)
[2022-08-28] MEDS: methADONE HCl 20 MG/2 ML ORAL.CONC 50 MG PO (10:33)
[2022-08-28] MEDS: Nicotine 14 MG PATCH.TD24 TRANSDERMA (10:33)
[2022-08-28] MEDS: Gabapentin 300 MG CAPSULE PO ×3 (10:33→21:00)
[2022-08-28] MEDS: QUEtiapine Fumarate 100 MG TABLET PO ×2 (10:33→14:15)
[2022-08-28] MEDS: oxyCODONE HCl Immed Release 5 MG TABLET PO ×2 (10:33→17:58)
--- NOTE | 2022-08-28 12:45 | P.PNPSI_ITS ---
Subjective Subjective Date of Service: 08/28/22 Reason For Visit: SI Interim History: seen in his room, lying in bed. states he continues to have abd pain and nausea. planning to have endoscopy next week (seen by GI yesterday, who developed that plan). c/o derogatory voice, which he describes as in my brain, as well as unremitting anxiety. educated re difference btwn anxiety D/O and psychotic D/O and expectations re effectiveness of meds versus therapy for his condition reset. reports some cravings. agrees to increase methadone to 55 mg. also agrees to retrial of clonidine. per staff, seen by GI. declined endoscopy yesterday. quiet, depressed. poor PO intake. Mental Status Exam Mental Status Exam Narrative: pt is alert, oriented and pleasant. speech nml rate, amount, loudness, latency. fair eye contact. Affect is normo-intense, non-labile. mood depressed and anxious. + AH. + SI. no HI, VH expressed. Cognitively is intact. Judgment is impaired Diagnostics Vital Signs (24Hr): Vital Signs - 24 hr 08/27/22 21:55 08/28/22 06:00 Temperature 97.6 F 98.0 F Pulse Rate 103 H 101 H Respiratory Rate 18 18 Blood Pressure 118/73 125/82 Pulse Oximetry 97 98 Oxygen Delivery Method Room Air Room Air Labs 08/22/22 17:59 08/22/22 17:59 Imaging Radiology Impressions: ITS Impressions K[facility] X-Ray 08/22/22 18:16 IMPRESSION: No evidence of bowel obstruction. Large amount of stool in the right colon.. Medications Medications Current Medications Acetaminophen (Acetaminophen 325 Mg Tablet) 650 mg PO Q6H PRN PRN Reason: Headache/Pain Mild Scale (1-3) Last Admin: 08/28/22 00:29 Dose: 650 mg Al Hydroxide/Mg Hydroxide (Magnesium Hydrox/Alum Hydrox 30 Ml Oral.Susp) 30 ml PO Q6H PRN PRN Reason: Heartburn/Nausea Last Admin: 08/24/22 17:50 Dose: 30 ml Bupropion HCl (Bupropion Hcl Xl 300 Mg Tab.Er.24h) 300 mg PO DAILY [facility] Last Admin: 08/28/22 10:32 Dose: 300 mg Calcium Carbonate (Calcium Carbonate 500 Mg Tablet) 500 mg PO BID [facility] Last Admin: 05/05/23 10:33 Dose: Not Given Clonidine HCl (Clonidine Hcl 0.1 Mg Tablet) 0.05 mg PO TID [facility]; Protocol Cyclobenzaprine HCl (Cyclobenzaprine Hcl 5 Mg Tablet) 5 mg PO TID [facility] Last Admin: 08/28/22 10:33 Dose: 5 mg Dicyclomine HCl (Dicyclomine Hcl 10 Mg Capsule) 10 mg PO QIDACHS [facility] Last Admin: 08/28/22 10:32 Dose: 10 mg Docusate Sodium (Docusate Sodium 100 Mg Capsule) 100 mg PO BID [facility] Last Admin: 08/28/22 10:33 Dose: Not Given Famotidine (Famotidine 20 Mg Tablet) 20 mg PO BEDTIME [facility] Last Admin: 08/27/22 22:00 Dose: 20 mg Gabapentin (Gabapentin 300 Mg Capsule) 300 mg PO TID [facility] Last Admin: 08/28/22 10:33 Dose: 300 mg Hydroxyzine HCl (Hydroxyzine Hcl 50 Mg Tablet) 50 mg PO Q6H PRN PRN Reason: anxiety Last Admin: 08/27/22 11:45 Dose: 50 mg Loperamide HCl (Loperamide Hcl 2 Mg Capsule) 2 mg PO Q4H PRN PRN Reason: diarrhea Last Admin: 08/28/22 10:32 Dose: 2 mg Magnesium Hydroxide (Milk Of Magnesia 30 Ml Oral.Susp) 30 ml PO DAILY PRN PRN Reason: Constipation Methadone HCl (Methadone Hcl 20 Mg/2 Ml Oral.Conc) 55 mg PO DAILY [facility] Nicotine (Nicotine 14 Mg Patch.Td24) 14 mg TRANSDERMA DAILY [facility] Last Admin: 08/28/22 10:33 Dose: 14 mg Nicotine Polacrilex (Nicotine Polacrilex 2 Mg Gum) 4 mg BUCCAL Q2H PRN PRN Reason: Nicotine Cravings Omeprazole (Omeprazole 40 Mg Capsule.Dr) 40 mg PO DAILY@0630 [facility] Last Admin: 08/28/22 10:32 Dose: 40 mg Ondansetron HCl (Ondansetron Odt 4 Mg Tab.Rapdis) 4 mg TRANSLINGU Q6H PRN PRN Reason: Nausea Last Admin: 08/28/22 10:32 Dose: 4 mg Oxycodone HCl (Oxycodone Hcl Immed Release 5 Mg Tablet) 5 mg PO Q6H PRN PRN Reason: Pain, Severe (Pain Scale 7-10) Last Admin: 08/28/22 10:33 Dose: 5 mg Quetiapine Fumarate (Quetiapine Fumarate 50 Mg Tablet) 50 mg PO Q4H PRN PRN Reason: AH/agitation Last Admin: 08/20/22 23:25 Dose: 50 mg Quetiapine Fumarate (Quetiapine Fumarate 50 Mg Tablet) 250 mg PO BEDTIME [facility] Last Admin: 08/27/22 21:59 Dose: 250 mg Quetiapine Fumarate (Quetiapine Fumarate 100 Mg Tablet) 100 mg PO BID@0900,1500 [facility] Last Admin: 08/28/22 10:33 Dose: 100 mg Thiamine HCl (Thiamine Hcl 100 Mg Tablet) 100 mg PO DAILY [facility] Last Admin: 08/28/22 10:34 Dose: Not Given Trazodone HCl (Trazodone Hcl 50 Mg Tablet) 50 mg PO BEDTIME MRX1 PRN PRN Reason: Insomnia Last Admin: 08/20/22 23:25 Dose: 50 mg Trazodone HCl (Trazodone Hcl 100 Mg Tablet) 200 mg PO BEDTIME [facility] Last Admin: 08/27/22 22:00 Dose: 200 mg Allergies Allergies Allergy/AdvReac Type Severity Reaction Status Date / Time haloperidol [From Haldol] AdvReac see note Verified 08/09/22 20:44 Assessment & Plan Assessment & Plan (1) MDD (major depressive disorder), recurrent episode, moderate: Status: Acute Code(s): F33.1 - Major depressive disorder, recurrent, moderate (2) Abdominal pain: Status: Acute Code(s): R10.9 - Unspecified abdominal pain Assessment and Plan: 47-year-old male with history IV drug abuse, hypertension, major depressive di sorder with psychosis, cocaine abuse admitted to Psychiatry with consult placed to hospital service for management of severe abdominal pain with nausea and vomiting. Symptoms of nausea/vomiting/diarrhea improved since admission 2 weeks ago. Increased left sided abdominal pain today. KUB is reassuring. Creat trending down since medical admission. No leukocytosis. CRP/ESR is elevated likely related to inflammation in the colon, ?IBD vs ?IBS. Given colicky nature of pain seems more consistent with IBS. Would recommend antispasmotic treatment with bentyl. Weight loss and anorexia likely related to grief, drug use, abd pain. Recommend ensures and bland diet as tolerated. Continue encouraging PO fluids (water specifically- drinking alot of juice). Ondansetron and famotidine ok prn for nausea. If symptoms not improving, consider GI consult. Recommend avoiding further abd CT unless symptoms not improving or worsen as patient has had 9 CT's this year alone. (3) Ischemic colitis: Status: Acute Code(s): K55.9 - Vascular disorder of intestine, unspecified Assessment and Plan: 47 YM with history IV drug abuse, hypertension, major depressive disorder with psychosis, cocaine abuse [place] [facility] [place] a suicidal attempt Patient was eventually downgraded to medical floor.? Course was then complicated by acute colitis.? Stool PCR was negative for C diff and other pathogens, was treated with Imodium.? Also noted to have coagulase-negative Staph aureus in 2/2 blood cultures.? Unlikely pathogen, treated empirically with p.o. doxycycline.? GI consulted for severe abdominal pain with nausea and vomiting and diarrhea.? 08/16/22 stool test was negative for C diff and CRP and fecal calprotectin was elevated Abd CT scan showed wall thickening of the left colon RECOMMENDATIONS: 1.? Agree with continuing Omeprazole and Dicyclomine for abdominal pain. 2.? Pt was advised further evaluation with EGD and Colonoscopy - tentatively scheduled for 08/28/22. Pt would like to have some time to mentally prepare for the procedure and would like to schedule next week. Plan continue meds from medicine admission. add seroquel 100 mg QAM, 50 mg Q4H PRN AH/psychosis. add clonidine 0.1 mg TID. T/C sec 35. 08/21:? dizzy, + orthostatic hypotension.? push fluids.? DC clonidine for now.? abd pain for past 8-9 days, already on omep 40.? adding famotidine 20 daily as well. 08/22:? c/o stomach pain, intermittently severe.? also dizziness, intermittent nausea, poor PO intake 2/2 pain, vomiting.? increase methadone to 45. 08/23:? bentyl added last night, scheduled.? eating better, no vomiting, but pt says pain is the same.? increase trazodone to 200 and seroquel to 250 at HS for insomnia.? appears weak and medically ill. 08/24:? appears less ill today, more expressive.? denies stomach pain/n/v.? HOLD norvasc due to hypotension.? otherwise continue current mgmt.? plan to DC oxycodone soon unless strong rationale to continue can be found. 08/25:? c/o stomach pain again, diarrhea.? agrees to increase methadone to 50 mg daily, increase seroquel to 100/100/250. 08/26:? c/o stomach pain.? agrees to increase gabapentin from 100 BID to 300 TID.? also to increase wellbutrin from 150 daily to 300 daily.? depressed, +AH. 08/27 continue tx. 08/28: per GI, will do endoscopy next week. and/dep continue. non-psychotic AH, +SI. cravings - increase methadone to 55 mg as of tomorrow. retrial clonidine, starting at 0.05 mg TID today. Patient educated on: diagnosis, medication risk/benefits, substance abuse, therapeutic strategies and medical condition Reason for continued inpatient stay Substantial Risk for: harm to self, inability to function and rapid decompensation Time Spent With Patient Time: Total time managing care of this patient today __25__ minutes.
[2022-08-28 14:13] VITALS: BP 110/70
[2022-08-28] MEDS: cloNIDine HCL 0.1 MG TABLET 0.05 MG PO ×2 (14:15→21:02)
[2022-08-28 19:35] VITALS: BP 111/69; PULSE 88; RESP 16; TEMP 36.7; O2SAT 95
[2022-08-28] MEDS: QUEtiapine Fumarate 50 MG TABLET 250 MG PO (21:01)
[2022-08-28] MEDS: traZODone HCL 100 MG TABLET 200 MG PO (21:01)
[2022-08-28] MEDS: Famotidine 20 MG TABLET PO (21:02)
--- NOTE | 2022-08-28 23:45 | PC.NURSE ---
Brian is admitted to [facility] for safety, observation and medication management, diagnosis MDD with psychotic features. This evening he has been isolating in his room, noted to be ambulating in the hallway for brief period, gait steady, receptive to 1:1 contact, continues to verbalize passive SI/AH, pain in abdomen is constant 10/10 with minimum relief reported by Brian post analgesic. Scheduled for colonoscopy on Wednesday, reports he is familiar with procedure as he had one in the past, continues to report loose stool, not witnessed. BP 111/69, reports feeling dizzy at times, educated to change position gradually, water intake poor but he does drink juice/marlene johnny. Med adherent except calcium carbonate, Colace held DT current GI symptoms. No behavior issues, feels safe on the unit. POC as outlined, 15 min unit safety observation.
[2022-08-29] MEDS: Magnesium Hydrox/Alum Hydrox 30 ML ORAL.SUSP PO (02:14)
[2022-08-29 09:16] VITALS: BP 124/75; PULSE 101; RESP 16; TEMP 36.4; O2SAT 97
[2022-08-29] MEDS: QUEtiapine Fumarate 100 MG TABLET PO ×2 (09:25→14:37)
[2022-08-29] MEDS: Nicotine 14 MG PATCH.TD24 TRANSDERMA (09:25)
[2022-08-29] MEDS: Gabapentin 300 MG CAPSULE PO ×3 (09:26→20:50)
[2022-08-29] MEDS: Omeprazole 40 MG CAPSULE.DR PO (09:26)
[2022-08-29] MEDS: oxyCODONE HCl Immed Release 5 MG TABLET PO ×2 (09:26→16:55)
[2022-08-29] MEDS: Cyclobenzaprine HCl 5 MG TABLET PO ×3 (09:26→20:51)
[2022-08-29] MEDS: cloNIDine HCL 0.1 MG TABLET 0.05 MG PO ×3 (09:27→20:51)
[2022-08-29] MEDS: buPROPion HCl XL 300 MG TAB.ER.24H PO (09:27)
[2022-08-29] MEDS: Acetaminophen 325 MG TABLET 650 MG PO ×2 (09:27→16:54)
[2022-08-29] MEDS: Dicyclomine HCl 10 MG CAPSULE PO ×4 (09:27→20:50)
[2022-08-29] MEDS: methADONE HCl 20 MG/2 ML ORAL.CONC 55 MG PO (09:28)
--- NOTE | 2022-08-29 19:58 | HO.PSYCHPN ---
Subjective Subjective Date of Service: 08/29/22 Reason For Visit: SI Interim History: Pt reports anxiety ref colonoscopy Wednesday. Has done prep before so aware of process. Reports AH bothersome, non command. Abdo discomfort. Intermittent SI, no plans. Sleep poor. Feeling supported. Agreed to higher dose of hs seroquel Medication Compliance: Yes Side effects from medications: No Attending Groups: Intermittent Review of Systems Acute medical concerns: No Review of Systems Review of Systems abdo pain- colonoscopy pending Mental Status Exam Mental Status Exam Narrative: pt is alert, oriented and pleasant. speech nml rate, amount, loudness, latency. fair eye contact. Affect is normo-intense, non-labile. mood depressed and anxious. + AH. + SI. no HI, VH expressed. Cognitively is intact. Judgment is impaired Diagnostics Vital Signs (24Hr): Vital Signs - 24 hr 08/29/22 09:16 Temperature 97.6 F Pulse Rate 101 H Respiratory Rate 16 Blood Pressure 124/75 Pulse Oximetry 97 Oxygen Delivery Method Room Air Labs 08/22/22 17:59 08/22/22 17:59 Imaging Radiology Impressions: ITS Impressions KUB X-Ray 08/22/22 18:16 IMPRESSION: No evidence of bowel obstruction. Large amount of stool in the right colon.. Medications Medications Current Medications Acetaminophen (Acetaminophen 325 Mg Tablet) 650 mg PO Q6H PRN PRN Reason: Headache/Pain Mild Scale (1-3) Last Admin: 08/29/22 16:54 Dose: 650 mg Al Hydroxide/Mg Hydroxide (Magnesium Hydrox/Alum Hydrox 30 Ml Oral.Susp) 30 ml PO Q6H PRN PRN Reason: Heartburn/Nausea Last Admin: 08/29/22 02:14 Dose: 30 ml Bisacodyl (Bisacodyl 5 Mg Tablet.Dr) 10 mg PO ONCE ONE Stop: 08/30/22 13:01 Bupropion HCl (Bupropion Hcl Xl 300 Mg Tab.Er.24h) 300 mg PO DAILY [facility] Last Admin: 08/29/22 09:27 Dose: 300 mg Calcium Carbonate (Calcium Carbonate 500 Mg Tablet) 500 mg PO BID [facility] Last Admin: 08/29/22 09:36 Dose: Not Given Clonidine HCl (Clonidine Hcl 0.1 Mg Tablet) 0.05 mg PO TID [facility]; Protocol Last Admin: 08/29/22 14:37 Dose: 0.05 mg Cyclobenzaprine HCl (Cyclobenzaprine Hcl 5 Mg Tablet) 5 mg PO TID [facility] Last Admin: 08/29/22 14:37 Dose: 5 mg Dicyclomine HCl (Dicyclomine Hcl 10 Mg Capsule) 10 mg PO QIDACHS [facility] Last Admin: 08/29/22 16:54 Dose: 10 mg Docusate Sodium (Docusate Sodium 100 Mg Capsule) 100 mg PO BID [facility] Last Admin: 08/29/22 09:37 Dose: Not Given Famotidine (Famotidine 20 Mg Tablet) 20 mg PO BEDTIME [facility] Last Admin: 08/28/22 21:02 Dose: 20 mg Gabapentin (Gabapentin 300 Mg Capsule) 300 mg PO TID [facility] Last Admin: 08/29/22 14:37 Dose: 300 mg Hydroxyzine HCl (Hydroxyzine Hcl 50 Mg Tablet) 50 mg PO Q6H PRN PRN Reason: anxiety Last Admin: 08/27/22 11:45 Dose: 50 mg Loperamide HCl (Loperamide Hcl 2 Mg Capsule) 2 mg PO Q4H PRN PRN Reason: diarrhea Last Admin: 08/28/22 10:32 Dose: 2 mg Magnesium Hydroxide (Milk Of Magnesia 30 Ml Oral.Susp) 30 ml PO DAILY PRN PRN Reason: Constipation Methadone HCl (Methadone Hcl 20 Mg/2 Ml Oral.Conc) 55 mg PO DAILY [facility] Last Admin: 08/29/22 09:28 Dose: 55 mg Nicotine (Nicotine 14 Mg Patch.Td24) 14 mg TRANSDERMA DAILY [facility] Last Admin: 08/29/22 09:25 Dose: 14 mg Nicotine Polacrilex (Nicotine Polacrilex 2 Mg Gum) 4 mg BUCCAL Q2H PRN PRN Reason: Nicotine Cravings Omeprazole (Omeprazole 40 Mg Capsule.Dr) 40 mg PO DAILY@0630 [facility] Last Admin: 08/29/22 09:26 Dose: 40 mg Ondansetron HCl (Ondansetron Odt 4 Mg Tab.Rapdis) 4 mg TRANSLINGU Q6H PRN PRN Reason: Nausea Last Admin: 08/28/22 10:32 Dose: 4 mg Polyethylene Glycol/Electrolytes (Peg 3350/Na Sulf,Bicarb,Cl/Kcl 4,000 Ml Soln.Recon) 240 ml PO Q10M [facility] Stop: 08/30/22 16:41 Quetiapine Fumarate (Quetiapine Fumarate 50 Mg Tablet) 50 mg PO Q4H PRN PRN Reason: AH/agitation Last Admin: 08/20/22 23:25 Dose: 50 mg Quetiapine Fumarate (Quetiapine Fumarate 100 Mg Tablet) 100 mg PO BID@0900,1500 [facility] Last Admin: 08/29/22 14:37 Dose: 100 mg Quetiapine Fumarate (Quetiapine Fumarate 300 Mg Tablet) 300 mg PO BEDTIME [facility] Thiamine HCl (Thiamine Hcl 100 Mg Tablet) 100 mg PO DAILY [facility] Last Admin: 08/29/22 09:36 Dose: Not Given Trazodone HCl (Trazodone Hcl 50 Mg Tablet) 50 mg PO BEDTIME MRX1 PRN PRN Reason: Insomnia Last Admin: 08/20/22 23:25 Dose: 50 mg Trazodone HCl (Trazodone Hcl 100 Mg Tablet) 200 mg PO BEDTIME [facility] Last Admin: 08/28/22 21:01 Dose: 200 mg Allergies Allergies Allergy/AdvReac Type Severity Reaction Status Date / Time haloperidol [From Haldol] AdvReac see note Verified 08/09/22 20:44 Assessment & Plan Assessment & Plan (1) Abdominal pain: Status: Acute Code(s): R10.9 - Unspecified abdominal pain (2) Ischemic colitis: Status: Acute Code(s): K55.9 - Vascular disorder of intestine, unspecified (3) MDD (major depressive disorder), recurrent episode, moderate: Status: Acute Code(s): F33.1 - Major depressive disorder, recurrent, moderate Assessment and Plan: 08/29: increase hs seroquel to 300mg for mood AH and sleep. Total daily dose 500mg Plan 47 YM with history IV drug abuse, hypertension, major depressive disorder with psychosis, cocaine abuse admitted to the ICU at [facility] [place] on 08/10/22 after a suicidal attempt Patient was eventually downgraded to medical floor.? Course was then complicated by acute colitis.? Stool PCR was negative for C diff and other pathogens, was treated with Imodium.? Also noted to have coagulase-negative Staph aureus in 2/2 blood cultures.? Unlikely pathogen, treated empirically with p.o. doxycycline.? GI consulted for severe abdominal pain with nausea and vomiting and diarrhea.? 08/16/22 stool test was negative for C diff and CRP and fecal calprotectin was elevated Abd CT scan showed wall thickening of the left colon likely due to ischemic colitis and less likely IBD RECOMMENDATIONS: 1. Agree with continuing Omeprazole and Dicyclomine for abdominal pain. 2. Pt was advised further evaluation with EGD and Colonoscopy - tentatively scheduled for 08/28/22. Pt would like to have some time to mentally prepare for the procedure and would like to schedule next week. EGD and colonoscopy scheduled on08/31/22 at 1 pm. Pt to start a clear liquid diet on 08/30/22 at 11 am, take 2 tablets of Dulcolax at 1 pm, followed by GoLYTELY prep starting at 2 pm. Orders placed for above. Reason for continued inpatient stay Substantial Risk for: harm to self Time Spent With Patient Time: Total time managing care of this patient today ____ minutes.
[2022-08-29 20:05] VITALS: BP 112/72; PULSE 84; RESP 16; TEMP 36.6; O2SAT 98
[2022-08-29] MEDS: Famotidine 20 MG TABLET PO (20:49)
[2022-08-29] MEDS: traZODone HCL 100 MG TABLET 200 MG PO (20:50)
[2022-08-29] MEDS: QUEtiapine Fumarate 300 MG TABLET PO (20:59)
[2022-08-30 06:00] VITALS: BP 98/60; PULSE 90; RESP 16; TEMP 36.7; O2SAT 98
[2022-08-30] MEDS: Ondansetron ODT 4 MG TAB.RAPDIS TRANSLINGU ×2 (08:57→17:55)
[2022-08-30] MEDS: methADONE HCl 20 MG/2 ML ORAL.CONC 55 MG PO (09:24)
[2022-08-30] MEDS: Dicyclomine HCl 10 MG CAPSULE PO ×4 (10:11→21:48)
[2022-08-30] MEDS: Nicotine 14 MG PATCH.TD24 TRANSDERMA (10:11)
[2022-08-30] MEDS: cloNIDine HCL 0.1 MG TABLET 0.05 MG PO ×2 (10:11→21:47)
[2022-08-30] MEDS: Gabapentin 300 MG CAPSULE PO ×3 (10:12→21:48)
[2022-08-30] MEDS: buPROPion HCl XL 300 MG TAB.ER.24H PO (10:12)
[2022-08-30] MEDS: Cyclobenzaprine HCl 5 MG TABLET PO ×3 (10:12→21:49)
[2022-08-30] MEDS: Omeprazole 40 MG CAPSULE.DR PO (10:12)
[2022-08-30] MEDS: QUEtiapine Fumarate 100 MG TABLET PO ×2 (10:12→16:00)
[2022-08-30] MEDS: oxyCODONE HCl Immed Release 5 MG TABLET PO ×3 (10:26→21:49)
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
[2022-08-30] MEDS: PEG 3350/Na Sulf,Bicarb,Cl/KCL 4,000 ML SOLN.RECON 240 ML PO ×17 (14:10→17:14)
[2022-08-30 21:45] VITALS: BP 111/69; PULSE 90; RESP 16; TEMP 36.6; O2SAT 95
[2022-08-30] MEDS: Famotidine 20 MG TABLET PO (21:48)
[2022-08-30] MEDS: QUEtiapine Fumarate 300 MG TABLET PO (21:48)
[2022-08-30] MEDS: traZODone HCL 100 MG TABLET 200 MG PO (21:49)
--- NOTE | 2022-08-31 05:36 | PC.NURSE ---
Pt declined to finish bottle of go-lytely, stated that he has drank most of it and could not drink anymore.
[2022-08-31 06:50] VITALS: BP 105/73; PULSE 87; RESP 16; TEMP 37.1; O2SAT 95
--- NOTE | 2022-08-31 09:56 | PC.NURSE ---
Morning Meds not given due to the patient being off unit in surgery.
[2022-08-31 10:31] VITALS: BP 135/89; PULSE 97; RESP 18; TEMP 36.5; O2SAT 96
--- NOTE | 2022-08-31 10:34 | PC.NURSE ---
Addendum entered by Radha Jorge RN 08/31/22 10:36: IV in place in left foot. Pt reminded that IV is in foot. No s/s of infiltration. Clinical coordinator aware. Original Note: Patient back from PACU ay 10:20. Vitals were stable. Patient steady on feet, denied headache, nausea, vomiting. Reported pain as 10/10 in abdomen. MD mcdonnell aware.
[2022-08-31] MEDS: oxyCODONE HCl Immed Release 5 MG TABLET PO ×3 (10:57→22:04)
[2022-08-31] MEDS: methADONE HCl 20 MG/2 ML ORAL.CONC 55 MG PO (11:13)
[2022-08-31] MEDS: QUEtiapine Fumarate 100 MG TABLET PO ×2 (11:40→16:02)
[2022-08-31] MEDS: Cyclobenzaprine HCl 5 MG TABLET PO ×3 (11:40→23:37)
[2022-08-31] MEDS: Gabapentin 300 MG CAPSULE PO ×3 (11:40→21:16)
[2022-08-31] MEDS: Dicyclomine HCl 10 MG CAPSULE PO ×3 (11:40→21:16)
[2022-08-31] MEDS: buPROPion HCl XL 300 MG TAB.ER.24H PO (11:41)
[2022-08-31] MEDS: cloNIDine HCL 0.1 MG TABLET 0.05 MG PO (11:44)
[2022-08-31] MEDS: Nicotine 14 MG PATCH.TD24 TRANSDERMA (11:44)
[2022-08-31 11:52] VITALS: BP 123/79; PULSE 114
--- NOTE | 2022-08-31 11:52 | PC.NURSE ---
AM Meds given unscheduled per pharmacy, MD Franko Garcia
[2022-08-31] MEDS: methADONE HCl 20 MG/2 ML ORAL.CONC 5 MG PO (13:22)
--- NOTE | 2022-08-31 13:42 | HO.PSYCHPN ---
Subjective Subjective Date of Service: 08/31/22 Reason For Visit: SI Interim History: EGD and colonoscopy today. c/o worsened abd pain since return. reporting withdrawal Sx, agrees to increase methadone to 60 mg daily. also asking for more anxiety medication, agrees to increase clonidine to 0.1 TID from 0.05 TID. discuss strategies to handle derogatory AH. per staff, no HI. meds and meals. c/o abd pain. no issues, slept overnight. Mental Status Exam Mental Status Exam Narrative: pt is alert, oriented and pleasant. speech nml rate, amount, loudness, latency. fair eye contact. Affect is normo-intense, non-labile. mood depressed and anxious. + AH. + SI. no HI, VH expressed. Cognitively is intact. Judgment is impaired Diagnostics Vital Signs (24Hr): Vital Signs - 24 hr 08/30/22 21:45 08/31/22 06:50 08/31/22 10:31 Temperature 97.9 F 98.7 F 97.7 F Pulse Rate 90 87 97 Respiratory Rate 16 16 18 Blood Pressure 111/69 105/73 135/89 Pulse Oximetry 95 95 96 Oxygen Delivery Method Room Air Room Air Room Air 08/31/22 11:52 Temperature Pulse Rate 114 H Respiratory Rate Blood Pressure 123/79 Pulse Oximetry Oxygen Delivery Method Labs 08/22/22 17:59 08/22/22 17:59 Imaging Radiology Impressions: ITS Impressions KUB X-Ray 08/22/22 18:16 IMPRESSION: No evidence of bowel obstruction. Large amount of stool in the right colon.. Medications Medications Current Medications Acetaminophen (Acetaminophen 325 Mg Tablet) 650 mg PO Q6H PRN PRN Reason: Headache/Pain Mild Scale (1-3) Last Admin: 08/29/22 16:54 Dose: 650 mg Al Hydroxide/Mg Hydroxide (Magnesium Hydrox/Alum Hydrox 30 Ml Oral.Susp) 30 ml PO Q6H PRN PRN Reason: Heartburn/Nausea Last Admin: 08/29/22 02:14 Dose: 30 ml Bupropion HCl (Bupropion Hcl Xl 300 Mg Tab.Er.24h) 300 mg PO DAILY [facility] Last Admin: 08/31/22 11:41 Dose: 300 mg Calcium Carbonate (Calcium Carbonate 500 Mg Tablet) 500 mg PO BID [facility] Last Admin: 08/31/22 10:07 Dose: Not Given Clonidine HCl (Clonidine Hcl 0.1 Mg Tablet) 0.1 mg PO TID [facility]; Protocol Cyclobenzaprine HCl (Cyclobenzaprine Hcl 5 Mg Tablet) 5 mg PO TID [facility] Last Admin: 08/31/22 11:40 Dose: 5 mg Dicyclomine HCl (Dicyclomine Hcl 10 Mg Capsule) 10 mg PO QIDACHS [facility] Last Admin: 08/31/22 11:40 Dose: 10 mg Docusate Sodium (Docusate Sodium 100 Mg Capsule) 100 mg PO BID [facility] Last Admin: 08/31/22 10:07 Dose: Not Given Famotidine (Famotidine 20 Mg Tablet) 20 mg PO BEDTIME [facility] Last Admin: 08/30/22 21:48 Dose: 20 mg Gabapentin (Gabapentin 300 Mg Capsule) 300 mg PO TID [facility] Last Admin: 08/31/22 11:40 Dose: 300 mg Hydroxyzine HCl (Hydroxyzine Hcl 50 Mg Tablet) 50 mg PO Q6H PRN PRN Reason: anxiety Last Admin: 08/27/22 11:45 Dose: 50 mg Loperamide HCl (Loperamide Hcl 2 Mg Capsule) 2 mg PO Q4H PRN PRN Reason: diarrhea Last Admin: 08/28/22 10:32 Dose: 2 mg Magnesium Hydroxide (Milk Of Magnesia 30 Ml Oral.Susp) 30 ml PO DAILY PRN PRN Reason: Constipation Methadone HCl (Methadone Hcl 20 Mg/2 Ml Oral.Conc) 60 mg PO DAILY [facility] Nicotine (Nicotine 14 Mg Patch.Td24) 14 mg TRANSDERMA DAILY [facility] Last Admin: 08/31/22 11:44 Dose: 14 mg Nicotine Polacrilex (Nicotine Polacrilex 2 Mg Gum) 4 mg BUCCAL Q2H PRN PRN Reason: Nicotine Cravings Omeprazole (Omeprazole 40 Mg Capsule.Dr) 40 mg PO DAILY@0630 [facility] Last Admin: 08/31/22 10:06 Dose: Not Given Ondansetron HCl (Ondansetron Odt 4 Mg Tab.Rapdis) 4 mg TRANSLINGU Q6H PRN PRN Reason: Nausea Last Admin: 08/30/22 17:55 Dose: 4 mg Oxycodone HCl (Oxycodone Hcl Immed Release 5 Mg Tablet) 5 mg PO Q6H PRN PRN Reason: severe pain Last Admin: 08/31/22 10:57 Dose: 5 mg Quetiapine Fumarate (Quetiapine Fumarate 50 Mg Tablet) 50 mg PO Q4H PRN PRN Reason: AH/agitation Last Admin: 08/20/22 23:25 Dose: 50 mg Quetiapine Fumarate (Quetiapine Fumarate 100 Mg Tablet) 100 mg PO BID@0900,1500 [facility] Last Admin: 08/31/22 11:40 Dose: 100 mg Quetiapine Fumarate (Quetiapine Fumarate 300 Mg Tablet) 300 mg PO BEDTIME [facility] Last Admin: 08/30/22 21:48 Dose: 300 mg Thiamine HCl (Thiamine Hcl 100 Mg Tablet) 100 mg PO DAILY [facility] Last Admin: 08/31/22 10:08 Dose: Not Given Trazodone HCl (Trazodone Hcl 50 Mg Tablet) 50 mg PO BEDTIME MRX1 PRN PRN Reason: Insomnia Last Admin: 08/20/22 23:25 Dose: 50 mg Trazodone HCl (Trazodone Hcl 100 Mg Tablet) 200 mg PO BEDTIME [facility] Last Admin: 08/30/22 21:49 Dose: 200 mg Allergies Allergies Allergy/AdvReac Type Severity Reaction Status Date / Time haloperidol [From Haldol] AdvReac see note Verified 08/09/22 20:44 Assessment & Plan Assessment & Plan (1) Abdominal pain: Status: Acute Code(s): R10.9 - Unspecified abdominal pain (2) Ischemic colitis: Status: Acute Code(s): K55.9 - Vascular disorder of intestine, unspecified Assessment and Plan: 47 YM with history IV drug abuse, hypertension, major depressive disorder with psychosis, cocaine abuse admitted to the ICU at [facility] on 08/10/22 after a suicidal attempt Patient was eventually downgraded to medical floor.? Course was then complicated by acute colitis.? Stool PCR was negative for C diff and other pathogens, was treated with Imodium.? Also noted to have coagulase-negative Staph aureus in 2/2 blood cultures.? Unlikely pathogen, treated empirically with p.o. doxycycline.? GI consulted for severe abdominal pain with nausea and vomiting and diarrhea.? 08/16/22 stool test was negative for C diff and CRP and fecal calprotectin was elevated Abd CT scan showed wall thickening of the left colon likely due to ischemic colitis and less likely IBD RECOMMENDATIONS: 1. Agree with continuing Omeprazole and Dicyclomine for abdominal pain. 2. Pt was advised further evaluation with EGD and Colonoscopy - tentatively scheduled for 08/28/22. Pt would like to have some time to mentally prepare for the procedure and would like to schedule next week. EGD and colonoscopy scheduled on08/31/22 at 1 pm. Pt to start a clear liquid diet on 08/30/22 at 11 am, take 2 tablets of Dulcolax at 1 pm, followed by GoLYTELY prep starting at 2 pm. Orders placed for above. (3) MDD (major depressive disorder), recurrent episode, moderate: Status: Acute Code(s): F33.1 - Major depressive disorder, recurrent, moderate Plan 08/20: continue meds from medicine admission. add seroquel 100 mg QAM, 50 mg Q4H PRN AH/psychosis. add clonidine 0.1 mg TID. T/C sec 35. 08/21:? dizzy, + orthostatic hypotension.? push fluids.? DC clonidine for now.? abd pain for past 8-9 days, already on omep 40.? adding famotidine 20 daily as well. 08/22:? c/o stomach pain, intermittently severe.? also dizziness, intermittent nausea, poor PO intake 2/2 pain, vomiting.? increase methadone to 45. 08/23:? bentyl added last night, scheduled.? eating better, no vomiting, but pt says pain is the same.? increase trazodone to 200 and seroquel to 250 at HS for insomnia.? appears weak and medically ill. 08/24:? appears less ill today, more expressive.? denies stomach pain/n/v.? HOLD norvasc due to hypotension.? otherwise continue current mgmt.? plan to DC oxycodone soon unless strong rationale to continue can be found. 08/25:? c/o stomach pain again, diarrhea.? agrees to increase methadone to 50 mg daily, increase seroquel to 100/100/250. 08/26:? c/o stomach pain.? agrees to increase gabapentin from 100 BID to 300 TID.? also to increase wellbutrin from 150 daily to 300 daily.? depressed, +AH. 08/27 continue tx. 08/28:? per GI, will do endoscopy next week.? and/dep continue.? non-psychotic AH, +SI.? cravings - increase methadone to 55 mg as of tomorrow.? retrial clonidine, starting at 0.05 mg TID today. 08/29: increase hs seroquel to 300mg for mood AH and sleep. Total daily dose 500mg 08/30: no change 08/31: colonoscopy completed this morning. abd pain increased. c/o withdrawal - incr methadone to 60 mg daily. c/o anxiety - incr clonidine to 0.1 TID. Reason for continued inpatient stay Substantial Risk for: harm to self, inability to function and rapid decompensation Time Spent With Patient Time: Total time managing care of this patient today _35___ minutes.
[2022-08-31 15:19] LABS: Hemoglobin 10.4 g/dl (14.0-18.0); Mean Corpuscular HGB Conc 32.5 g/dl (31.0-36.0); Mean Corpuscular Volume 92.2 fL (80.0-98.0); Mean Platelet Volume 8.7 fL (9.4-12.4); Platelet Count 683 X10*3/uL (160-400); Red Blood Count 3.47 X10*6/uL (4.60-5.80); White Blood Count 13.6 X10*3/uL (4.8-10.8)
[2022-08-31 15:45] LABS: C Reactive Protein 9.53 mg/dL (< or = 0.50); Iron 16 mcg/dL (45-160); Percent Iron Saturation 15 % (15-50); Total Iron Binding Capacity 106 mcg/dL (228-428); Unsaturated Iron Binding 90 ug/dL
[2022-08-31 15:57] VITALS: BP 110/68
[2022-08-31] MEDS: cloNIDine HCL 0.1 MG TABLET PO ×2 (16:03→21:13)
[2022-08-31 16:08] LABS: Ferritin 441 ng/mL (20-250); Folate 7.9 ng/mL (> or = 4.0); Vitamin B12 945 pg/mL (200-900)
[2022-08-31] MEDS: traZODone HCL 100 MG TABLET 200 MG PO (21:13)
[2022-08-31] MEDS: Famotidine 20 MG TABLET PO (21:16)
[2022-08-31] MEDS: QUEtiapine Fumarate 300 MG TABLET PO (21:16)
[2022-08-31] MEDS: 0.9 % Sodium Chloride Flush 10 ML SYRINGE 5 ML IVFLUSH (21:17)
[2022-08-31 21:28] VITALS: BP 115/73; PULSE 94; RESP 18; TEMP 36.5; O2SAT 96
[2022-08-31] MEDS: hydrOXYzine HCL 50 MG TABLET PO (23:37)
[2022-08-31] MEDS: Acetaminophen 325 MG TABLET 650 MG PO (23:37)
[2022-08-31] MEDS: traZODone HCL 50 MG TABLET PO (23:38)
[2022-09-01 10:00] VITALS: BP 130/80; PULSE 106; TEMP 36.4; O2SAT 96
[2022-09-01] MEDS: methADONE HCl 20 MG/2 ML ORAL.CONC 60 MG PO (10:42)
[2022-09-01] MEDS: 0.9 % Sodium Chloride Flush 10 ML SYRINGE 5 ML IVFLUSH (10:45)
[2022-09-01] MEDS: buPROPion HCl XL 300 MG TAB.ER.24H PO (11:12)
[2022-09-01] MEDS: Dicyclomine HCl 10 MG CAPSULE PO (11:13)
[2022-09-01] MEDS: Gabapentin 300 MG CAPSULE PO ×2 (11:13→14:46)
[2022-09-01] MEDS: cloNIDine HCL 0.1 MG TABLET PO ×2 (11:13→14:46)
[2022-09-01] MEDS: QUEtiapine Fumarate 100 MG TABLET PO ×2 (11:13→14:46)
[2022-09-01] MEDS: Cyclobenzaprine HCl 5 MG TABLET PO ×2 (11:14→14:45)
[2022-09-01] MEDS: Nicotine 14 MG PATCH.TD24 TRANSDERMA (11:15)
[2022-09-01] MEDS: oxyCODONE HCl Immed Release 5 MG TABLET PO (13:47)
[2022-09-01] MEDS: Acetaminophen 325 MG TABLET 650 MG PO ×2 (14:46→20:48)
--- NOTE | 2022-09-01 15:23 | HO.PSYCHPN ---
Subjective Subjective Date of Service: 09/01/22 Reason For Visit: SI Interim History: calm, cooperative. c/o stomach pain, anxiety, SI. reviewed findings from endoscopy yesterday. awaiting word from GI re biopsy results. per staff, asking for section 35. up at ID with bowel pain, got meds, slept after. Mental Status Exam Mental Status Exam Narrative: pt is alert, oriented and pleasant. speech nml rate, amount, loudness, latency. fair eye contact. Affect is normo-intense, non-labile. mood depressed and anxious. + AH. + SI. no HI, VH expressed. Cognitively is intact. Judgment is impaired Diagnostics Vital Signs (24Hr): Vital Signs - 24 hr 08/31/22 15:57 08/31/22 21:28 09/01/22 10:00 Temperature 97.7 F 97.6 F Pulse Rate 94 106 H Respiratory Rate 18 Blood Pressure 110/68 115/73 130/80 Pulse Oximetry 96 96 Oxygen Delivery Method Room Air Room Air Labs 08/31/22 15:10 08/22/22 17:59 Labs: Laboratory Results - last 48 hr 08/31/22 08/31/22 15:10 15:10 WBC 13.6 H RBC 3.47 L Hgb 10.4 L Hct 32.0 L MCV 92.2 MCH 30.0 MCHC 32.5 RDW 14.0 Plt Count 683 H D MPV 8.7 L Absolute Nucleated RBC 0.000 Nucleated RBC % (auto) 0.0 Iron 16 L TIBC 106 L % Saturation 15 Unsat Iron Binding 90 Ferritin 441 H C-Reactive Protein 9.53 H Carcinoembryonic Ag 4.70 Vitamin B12 945 H Folate 7.9 Imaging Radiology Impressions: ITS Impressions KUB X-Ray 08/22/22 18:16 IMPRESSION: No evidence of bowel obstruction. Large amount of stool in the right colon.. Medications Medications Current Medications Acetaminophen (Acetaminophen 325 Mg Tablet) 650 mg PO Q6H PRN PRN Reason: Headache/Pain Mild Scale (1-3) Last Admin: 09/01/22 14:46 Dose: 650 mg Al Hydroxide/Mg Hydroxide (Magnesium Hydrox/Alum Hydrox 30 Ml Oral.Susp) 30 ml PO Q6H PRN PRN Reason: Heartburn/Nausea Last Admin: 08/29/22 02:14 Dose: 30 ml Bupropion HCl (Bupropion Hcl Xl 300 Mg Tab.Er.24h) 300 mg PO DAILY [facility] Last Admin: 09/01/22 11:12 Dose: 300 mg Calcium Carbonate (Calcium Carbonate 500 Mg Tablet) 500 mg PO BID [facility] Last Admin: 09/01/22 11:14 Dose: Not Given Clonidine HCl (Clonidine Hcl 0.1 Mg Tablet) 0.1 mg PO TID [facility]; Protocol Last Admin: 09/01/22 14:46 Dose: 0.1 mg Cyclobenzaprine HCl (Cyclobenzaprine Hcl 5 Mg Tablet) 5 mg PO TID [facility] Last Admin: 09/01/22 14:45 Dose: 5 mg Dicyclomine HCl (Dicyclomine Hcl 10 Mg Capsule) 10 mg PO QIDACHS [facility] Last Admin: 09/01/22 11:47 Dose: Not Given Docusate Sodium (Docusate Sodium 100 Mg Capsule) 100 mg PO BID [facility] Last Admin: 09/01/22 11:14 Dose: Not Given Famotidine (Famotidine 20 Mg Tablet) 20 mg PO BEDTIME [facility] Last Admin: 08/31/22 21:16 Dose: 20 mg Gabapentin (Gabapentin 300 Mg Capsule) 300 mg PO TID [facility] Last Admin: 09/01/22 14:46 Dose: 300 mg Hydroxyzine HCl (Hydroxyzine Hcl 50 Mg Tablet) 50 mg PO Q6H PRN PRN Reason: anxiety Last Admin: 08/31/22 23:37 Dose: 50 mg Loperamide HCl (Loperamide Hcl 2 Mg Capsule) 2 mg PO Q4H PRN PRN Reason: diarrhea Last Admin: 08/28/22 10:32 Dose: 2 mg Magnesium Hydroxide (Milk Of Magnesia 30 Ml Oral.Susp) 30 ml PO DAILY PRN PRN Reason: Constipation Methadone HCl (Methadone Hcl 20 Mg/2 Ml Oral.Conc) 60 mg PO DAILY [facility] Last Admin: 09/01/22 10:42 Dose: 60 mg Nicotine (Nicotine 14 Mg Patch.Td24) 14 mg TRANSDERMA DAILY [facility] Last Admin: 09/01/22 11:15 Dose: 14 mg Nicotine Polacrilex (Nicotine Polacrilex 2 Mg Gum) 4 mg BUCCAL Q2H PRN PRN Reason: Nicotine Cravings Omeprazole (Omeprazole 40 Mg Capsule.Dr) 40 mg PO DAILY@0630 [facility] Last Admin: 09/01/22 11:14 Dose: Not Given Ondansetron HCl (Ondansetron Odt 4 Mg Tab.Rapdis) 4 mg TRANSLINGU Q6H PRN PRN Reason: Nausea Last Admin: 08/30/22 17:55 Dose: 4 mg Oxycodone HCl (Oxycodone Hcl Immed Release 5 Mg Tablet) 5 mg PO Q6H PRN PRN Reason: severe pain Last Admin: 09/01/22 13:47 Dose: 5 mg Quetiapine Fumarate (Quetiapine Fumarate 50 Mg Tablet) 50 mg PO Q4H PRN PRN Reason: AH/agitation Last Admin: 08/20/22 23:25 Dose: 50 mg Quetiapine Fumarate (Quetiapine Fumarate 100 Mg Tablet) 100 mg PO BID@0900,1500 [facility] Last Admin: 09/01/22 14:46 Dose: 100 mg Quetiapine Fumarate (Quetiapine Fumarate 300 Mg Tablet) 300 mg PO BEDTIME [facility] Last Admin: 08/31/22 21:16 Dose: 300 mg Sodium Chloride (0.9 % Sodium Chloride Flush 10 Ml Syringe) 5 ml IVFLUSH QSHIFT [facility] Last Admin: 09/01/22 10:45 Dose: 5 ml Thiamine HCl (Thiamine Hcl 100 Mg Tablet) 100 mg PO DAILY [facility] Last Admin: 09/01/22 11:21 Dose: Not Given Trazodone HCl (Trazodone Hcl 50 Mg Tablet) 50 mg PO BEDTIME MRX1 PRN PRN Reason: Insomnia Last Admin: 08/31/22 23:38 Dose: 50 mg Trazodone HCl (Trazodone Hcl 100 Mg Tablet) 200 mg PO BEDTIME [facility] Last Admin: 08/31/22 21:13 Dose: 200 mg Allergies Allergies Allergy/AdvReac Type Severity Reaction Status Date / Time haloperidol [From Haldol] AdvReac see note Verified 08/09/22 20:44 Assessment & Plan Assessment & Plan (1) Abdominal pain: Status: Acute Code(s): R10.9 - Unspecified abdominal pain (2) Ischemic colitis: Status: Acute Code(s): K55.9 - Vascular disorder of intestine, unspecified Assessment and Plan: 47 YM with history IV drug abuse, hypertension, major depressive disorder with psychosis, cocaine abuse [place] [facility] [place] a suicidal attempt Patient was eventually downgraded to medical floor.? Course was then complicated by acute colitis.? Stool PCR was negative for C diff and other pathogens, was treated with Imodium.? Also noted to have coagulase-negative Staph aureus in 2/2 blood cultures.? Unlikely pathogen, treated empirically with p.o. doxycycline.? GI consulted for severe abdominal pain with nausea and vomiting and diarrhea.? 08/16/22 stool test was negative for C diff and CRP and fecal calprotectin was elevated Abd CT scan showed wall thickening of the left colon likely due to ischemic colitis and less likely IBD RECOMMENDATIONS: 1. Agree with continuing Omeprazole and Dicyclomine for abdominal pain. 2. Pt was advised further evaluation with EGD and Colonoscopy - tentatively scheduled for 08/28/22. Pt would like to have some time to mentally prepare for the procedure and would like to schedule next week. EGD and colonoscopy scheduled on08/31/22 at 1 pm. Pt to start a clear liquid diet on 08/30/22 at 11 am, take 2 tablets of Dulcolax at 1 pm, followed by GoLYTELY prep starting at 2 pm. Orders placed for above. (3) MDD (major depressive disorder), recurrent episode, moderate: Status: Acute Code(s): F33.1 - Major depressive disorder, recurrent, moderate Plan 08/20: continue meds from medicine admission. add seroquel 100 mg QAM, 50 mg Q4H PRN AH/psychosis. add clonidine 0.1 mg TID. T/C sec 35. 08/21:? dizzy, + orthostatic hypotension.? push fluids.? DC clonidine for now.? abd pain for past 8-9 days, already on omep 40.? adding famotidine 20 daily as well. 08/22:? c/o stomach pain, intermittently severe.? also dizziness, intermittent nausea, poor PO intake 2/2 pain, vomiting.? increase methadone to 45. 08/23:? bentyl added last night, scheduled.? eating better, no vomiting, but pt says pain is the same.? increase trazodone to 200 and seroquel to 250 at HS for insomnia.? appears weak and medically ill. 08/24:? appears less ill today, more expressive.? denies stomach pain/n/v.? HOLD norvasc due to hypotension.? otherwise continue current mgmt.? plan to DC oxycodone soon unless strong rationale to continue can be found. 08/25:? c/o stomach pain again, diarrhea.? agrees to increase methadone to 50 mg daily, increase seroquel to 100/100/250. 08/26:? c/o stomach pain.? agrees to increase gabapentin from 100 BID to 300 TID.? also to increase wellbutrin from 150 daily to 300 daily.? depressed, +AH. 08/27 continue tx. 08/28:? per GI, will do endoscopy next week.? and/dep continue.? non-psychotic AH, +SI.? cravings - increase methadone to 55 mg as of tomorrow.? retrial clonidine, starting at 0.05 mg TID today. 08/29: increase hs seroquel to 300mg for mood AH and sleep. Total daily dose 500mg 08/30: no change 08/31: colonoscopy completed this morning. abd pain increased. c/o withdrawal - incr methadone to 60 mg daily. c/o anxiety - incr clonidine to 0.1 TID. 09/01: continues medically unwell, +SI/anxiety. awaiting pathology report. continue current mgmt for now. Reason for continued inpatient stay Substantial Risk for: harm to self, inability to function and rapid decompensation Time Spent With Patient Time: Total time managing care of this patient today __35__ minutes.
[2022-09-01 20:35] VITALS: BP 92/55; PULSE 86; TEMP 36.1; O2SAT 97
[2022-09-01] MEDS: traZODone HCL 100 MG TABLET 200 MG PO (20:48)
[2022-09-01] MEDS: QUEtiapine Fumarate 300 MG TABLET PO (20:49)
[2022-09-02] MEDS: Acetaminophen 325 MG TABLET 650 MG PO (03:34)
[2022-09-02] MEDS: oxyCODONE HCl Immed Release 5 MG TABLET PO ×3 (03:34→18:52)
[2022-09-02 08:30] VITALS: BP 117/69; PULSE 82; RESP 18; TEMP 36.3; O2SAT 97
[2022-09-02] MEDS: methADONE HCl 20 MG/2 ML ORAL.CONC 60 MG PO (09:22)
[2022-09-02] MEDS: Omeprazole 40 MG CAPSULE.DR PO (10:34)
[2022-09-02] MEDS: Cyclobenzaprine HCl 5 MG TABLET PO ×3 (10:34→20:23)
[2022-09-02] MEDS: buPROPion HCl XL 300 MG TAB.ER.24H PO (10:34)
[2022-09-02] MEDS: Dicyclomine HCl 10 MG CAPSULE PO ×3 (10:34→20:23)
[2022-09-02] MEDS: Thiamine HCL 100 MG TABLET PO (10:34)
[2022-09-02] MEDS: cloNIDine HCL 0.1 MG TABLET PO ×3 (10:35→20:23)
[2022-09-02] MEDS: Gabapentin 300 MG CAPSULE PO ×3 (10:35→20:22)
[2022-09-02] MEDS: QUEtiapine Fumarate 100 MG TABLET PO ×2 (10:35→16:17)
[2022-09-02] MEDS: Nicotine 14 MG PATCH.TD24 TRANSDERMA (10:36)
--- NOTE | 2022-09-02 14:53 | P.PNPSI_ITS ---
Subjective Subjective Date of Service: 09/02/22 Reason For Visit: SI Interim History: appears thin, frail. continues to endorse SI, AH. asking about pathology results, wants to have Dr. Winkler review them with him. per staff, pleasant. dep/anx. +SI. appetite slightly improved. stomach pain. got oxy at 0350. poor sleep 2/2 pain. Mental Status Exam Mental Status Exam Narrative: pt is alert, oriented and pleasant. speech nml rate, amount, loudness, latency. fair eye contact. Affect is normo-intense, non-labile. mood depressed and anxious. + AH. + SI. no HI, VH expressed. Cognitively is intact. Judgment is impaired Diagnostics Vital Signs (24Hr): Vital Signs - 24 hr 09/01/22 20:35 09/02/22 08:30 Temperature 97 F 97.4 F Pulse Rate 86 82 Respiratory Rate 18 Blood Pressure 92/55 L 117/69 Pulse Oximetry 97 97 Oxygen Delivery Method Room Air Room Air Labs 08/31/22 15:10 08/22/22 17:59 Labs: Laboratory Results - last 48 hr 08/31/22 08/31/22 15:10 15:10 WBC 13.6 H RBC 3.47 L Hgb 10.4 L Hct 32.0 L MCV 92.2 MCH 30.0 MCHC 32.5 RDW 14.0 Plt Count 683 H D MPV 8.7 L Absolute Nucleated RBC 0.000 Nucleated RBC % (auto) 0.0 Iron 16 L TIBC 106 L % Saturation 15 Unsat Iron Binding 90 Ferritin 441 H C-Reactive Protein 9.53 H Carcinoembryonic Ag 4.70 Vitamin B12 945 H Folate 7.9 Imaging Radiology Impressions: ITS Impressions [facility]UB X-Ray 08/22/22 18:16 IMPRESSION: No evidence of bowel obstruction. Large amount of stool in the right colon.. Medications Medications Current Medications Acetaminophen (Acetaminophen 325 Mg Tablet) 650 mg PO Q6H PRN PRN Reason: Headache/Pain Mild Scale (1-3) Last Admin: 09/02/22 03:34 Dose: 650 mg Al Hydroxide/Mg Hydroxide (Magnesium Hydrox/Alum Hydrox 30 Ml Oral.Susp) 30 ml PO Q6H PRN PRN Reason: Heartburn/Nausea Last Admin: 08/29/22 02:14 Dose: 30 ml Bupropion HCl (Bupropion Hcl Xl 300 Mg Tab.Er.24h) 300 mg PO DAILY [facility] Last Admin: 09/02/22 10:34 Dose: 300 mg Calcium Carbonate (Calcium Carbonate 500 Mg Tablet) 500 mg PO BID [facility] Last Admin: 09/02/22 10:41 Dose: Not Given Clonidine HCl (Clonidine Hcl 0.1 Mg Tablet) 0.1 mg PO TID [facility]; Protocol Last Admin: 09/02/22 10:35 Dose: 0.1 mg Cyclobenzaprine HCl (Cyclobenzaprine Hcl 5 Mg Tablet) 5 mg PO TID [facility] Last Admin: 09/02/22 10:34 Dose: 5 mg Dicyclomine HCl (Dicyclomine Hcl 10 Mg Capsule) 10 mg PO QIDACHS [facility] Last Admin: 09/02/22 10:34 Dose: 10 mg Docusate Sodium (Docusate Sodium 100 Mg Capsule) 100 mg PO BID [facility] Last Admin: 09/02/22 10:41 Dose: Not Given Famotidine (Famotidine 20 Mg Tablet) 20 mg PO BEDTIME [facility] Last Admin: 09/01/22 20:52 Dose: Not Given Gabapentin (Gabapentin 300 Mg Capsule) 300 mg PO TID [facility] Last Admin: 09/02/22 10:35 Dose: 300 mg Hydroxyzine HCl (Hydroxyzine Hcl 50 Mg Tablet) 50 mg PO Q6H PRN PRN Reason: anxiety Last Admin: 08/31/22 23:37 Dose: 50 mg Loperamide HCl (Loperamide Hcl 2 Mg Capsule) 2 mg PO Q4H PRN PRN Reason: diarrhea Last Admin: 08/28/22 10:32 Dose: 2 mg Magnesium Hydroxide (Milk Of Magnesia 30 Ml Oral.Susp) 30 ml PO DAILY PRN PRN Reason: Constipation Methadone HCl (Methadone Hcl 20 Mg/2 Ml Oral.Conc) 60 mg PO DAILY [facility] Last Admin: 09/02/22 09:22 Dose: 60 mg Nicotine (Nicotine 14 Mg Patch.Td24) 14 mg TRANSDERMA DAILY [facility] Last Admin: 09/02/22 10:36 Dose: 14 mg Nicotine Polacrilex (Nicotine Polacrilex 2 Mg Gum) 4 mg BUCCAL Q2H PRN PRN Reason: Nicotine Cravings Omeprazole (Omeprazole 40 Mg Capsule.Dr) 40 mg PO DAILY@0630 [facility] Last Admin: 09/02/22 10:34 Dose: 40 mg Ondansetron HCl (Ondansetron Odt 4 Mg Tab.Rapdis) 4 mg TRANSLINGU Q6H PRN PRN Reason: Nausea Last Admin: 08/30/22 17:55 Dose: 4 mg Oxycodone HCl (Oxycodone Hcl Immed Release 5 Mg Tablet) 5 mg PO Q6H PRN PRN Reason: severe pain Last Admin: 09/02/22 11:08 Dose: 5 mg Quetiapine Fumarate (Quetiapine Fumarate 50 Mg Tablet) 50 mg PO Q4H PRN PRN Reason: AH/agitation Last Admin: 08/20/22 23:25 Dose: 50 mg Quetiapine Fumarate (Quetiapine Fumarate 100 Mg Tablet) 100 mg PO BID@0900,1500 [facility] Last Admin: 09/02/22 10:35 Dose: 100 mg Quetiapine Fumarate (Quetiapine Fumarate 300 Mg Tablet) 300 mg PO BEDTIME [facility] Last Admin: 09/01/22 20:49 Dose: 300 mg Sodium Chloride (0.9 % Sodium Chloride Flush 10 Ml Syringe) 5 ml IVFLUSH QSHIFT [facility] Last Admin: 09/02/22 10:43 Dose: Not Given Thiamine HCl (Thiamine Hcl 100 Mg Tablet) 100 mg PO DAILY [facility] Last Admin: 09/02/22 10:34 Dose: 100 mg Trazodone HCl (Trazodone Hcl 50 Mg Tablet) 50 mg PO BEDTIME MRX1 PRN PRN Reason: Insomnia Last Admin: 08/31/22 23:38 Dose: 50 mg Trazodone HCl (Trazodone Hcl 100 Mg Tablet) 200 mg PO BEDTIME [facility] Last Admin: 09/01/22 20:48 Dose: 200 mg Allergies Allergies Allergy/AdvReac Type Severity Reaction Status Date / Time haloperidol [From Haldol] AdvReac see note Verified 08/09/22 20:44 Assessment & Plan Assessment & Plan (1) Abdominal pain: Status: Acute Code(s): R10.9 - Unspecified abdominal pain (2) Ischemic colitis: Status: Acute Code(s): K55.9 - Vascular disorder of intestine, unspecified Assessment and Plan: 47 YM with history IV drug abuse, hypertension, major depressive disorder with psychosis, cocaine abuse [place] [facility] [place] a suicidal attempt Patient was eventually downgraded to medical floor.? Course was then complicated by acute colitis.? Stool PCR was negative for C diff and other pathogens, was treated with Imodium.? Also noted to have coagulase-negative Staph aureus in 2/2 blood cultures.? Unlikely pathogen, treated empirically with p.o. doxycycline.? GI consulted for severe abdominal pain with nausea and vomiting and diarrhea.? 08/16/22 stool test was negative for C diff and CRP and fecal calprotectin was elevated Abd CT scan showed wall thickening of the left colon likely due to ischemic colitis and less likely IBD RECOMMENDATIONS: 1. Agree with continuing Omeprazole and Dicyclomine for abdominal pain. 2. Pt was advised further evaluation with EGD and Colonoscopy - tentatively scheduled for 08/28/22. Pt would like to have some time to mentally prepare for the procedure and would like to schedule next week. EGD and colonoscopy scheduled on08/31/22 at 1 pm. Pt to start a clear liquid diet on 08/30/22 at 11 am, take 2 tablets of Dulcolax at 1 pm, followed by GoLYTELY prep starting at 2 pm. Orders placed for above. (3) MDD (major depressive disorder), recurrent episode, moderate: Status: Acute Code(s): F33.1 - Major depressive disorder, recurrent, moderate Plan 08/20: continue meds from medicine admission. add seroquel 100 mg QAM, 50 mg Q4H PRN AH/psychosis. add clonidine 0.1 mg TID. T/C sec 35. 08/21:? dizzy, + orthostatic hypotension.? push fluids.? DC clonidine for now.? abd pain for past 8-9 days, already on omep 40.? adding famotidine 20 daily as well. 08/22:? c/o stomach pain, intermittently severe.? also dizziness, intermittent nausea, poor PO intake 2/2 pain, vomiting.? increase methadone to 45. 08/23:? bentyl added last night, scheduled.? eating better, no vomiting, but pt says pain is the same.? increase trazodone to 200 and seroquel to 250 at HS for insomnia.? appears weak and medically ill. 08/24:? appears less ill today, more expressive.? denies stomach pain/n/v.? HOLD norvasc due to hypotension.? otherwise continue current mgmt.? plan to DC oxycodone soon unless strong rationale to continue can be found. 08/25:? c/o stomach pain again, diarrhea.? agrees to increase methadone to 50 mg daily, increase seroquel to 100/100/250. 08/26:? c/o stomach pain.? agrees to increase gabapentin from 100 BID to 300 TID.? also to increase wellbutrin from 150 daily to 300 daily.? depressed, +AH. 08/27 continue tx. 08/28:? per GI, will do endoscopy next week.? and/dep continue.? non-psychotic AH, +SI.? cravings - increase methadone to 55 mg as of tomorrow.? retrial clonidine, starting at 0.05 mg TID today. 08/29: increase hs seroquel to 300mg for mood AH and sleep. Total daily dose 500mg 08/30: no change 08/31: colonoscopy completed this morning. abd pain increased. c/o withdrawal - incr methadone to 60 mg daily. c/o anxiety - incr clonidine to 0.1 TID. 09/01: continues medically unwell, +SI/anxiety. awaiting pathology report. continue current mgmt for now. 09/02: continues medically unwell, +SI/anxiety. awaiting pathology report. continue current mgmt for now. remove IV access per Dr. Winkler. Reason for continued inpatient stay Substantial Risk for: harm to self, inability to function and rapid decompensation Time Spent With Patient Time: Total time managing care of this patient today _35___ minutes.
[2022-09-02 16:11] VITALS: BP 113/71; PULSE 88; RESP 16; TEMP 36.1; O2SAT 97
[2022-09-02 20:10] VITALS: BP 132/86; PULSE 81; RESP 16; TEMP 36.6; O2SAT 99
[2022-09-02] MEDS: traZODone HCL 100 MG TABLET 200 MG PO (20:22)
[2022-09-02] MEDS: Famotidine 20 MG TABLET PO (20:23)
[2022-09-02] MEDS: QUEtiapine Fumarate 300 MG TABLET PO (20:23)
[2022-09-03 07:00] VITALS: BMI 20.2
[2022-09-03] MEDS: methADONE HCl 20 MG/2 ML ORAL.CONC 60 MG PO (09:01)
[2022-09-03 09:11] VITALS: BP 110/62; PULSE 87; RESP 16; TEMP 36.8; O2SAT 96
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
[2022-09-03] MEDS: Nicotine 14 MG PATCH.TD24 TRANSDERMA (10:32)
[2022-09-03] MEDS: Dicyclomine HCl 10 MG CAPSULE PO ×2 (10:33→16:25)
[2022-09-03] MEDS: QUEtiapine Fumarate 100 MG TABLET PO ×2 (10:33→16:25)
[2022-09-03] MEDS: oxyCODONE HCl Immed Release 5 MG TABLET PO ×2 (10:33→18:09)
[2022-09-03] MEDS: Gabapentin 300 MG CAPSULE PO ×3 (10:33→21:04)
[2022-09-03] MEDS: buPROPion HCl XL 300 MG TAB.ER.24H PO (10:33)
[2022-09-03] MEDS: Cyclobenzaprine HCl 5 MG TABLET PO ×3 (10:34→21:04)
[2022-09-03] MEDS: cloNIDine HCL 0.1 MG TABLET PO ×2 (10:34→21:05)
[2022-09-03] MEDS: Thiamine HCL 100 MG TABLET PO (10:34)
[2022-09-03] MEDS: clonazePAM 0.5 MG TABLET PO ×2 (12:39→21:04)
--- NOTE | 2022-09-03 14:29 | HO.PSYCHPN ---
Subjective Subjective Date of Service: 09/03/22 Reason For Visit: SI Interim History: calm, cooperative. reports ongoing AH, SI, anxiety, depression. seen by Peterson Carvajal as well as surgeon to discuss options for mgmt. discuss use of benzos, make plans for time-limited use of klonopin to allow his racing thoughts to subside enough for him to make a reasonable decision regarding balloon dilation of intestinal stricture. pt had declined to go ahead with procedure this afternoon thinking if he were just going to discharge and kill himself, what's the point? per staff, isolative. not attending groups. high anx/dep. voices. racing thoughts. Mental Status Exam Mental Status Exam Narrative: pt is alert, oriented and pleasant. speech nml rate, amount, loudness, latency. fair eye contact. Affect is normo-intense, non-labile. mood depressed and anxious. + AH. + SI. no HI, VH expressed. Cognitively is intact. Judgment is impaired Diagnostics Vital Signs (24Hr): Vital Signs - 24 hr 09/02/22 16:11 09/02/22 20:10 09/03/22 09:11 Temperature 97.0 F 97.9 F 98.2 F Pulse Rate 88 81 87 Respiratory Rate 16 16 16 Blood Pressure 113/71 132/86 110/62 Pulse Oximetry 97 99 96 Oxygen Delivery Method Room Air Room Air Room Air BMI result Body Mass Index 20.2 Labs 08/31/22 15:10 08/22/22 17:59 Imaging Radiology Impressions: ITS Impressions [facility] X-Ray 08/22/22 18:16 IMPRESSION: No evidence of bowel obstruction. Large amount of stool in the right colon.. Medications Medications Current Medications Acetaminophen (Acetaminophen 325 Mg Tablet) 650 mg PO Q6H PRN PRN Reason: Headache/Pain Mild Scale (1-3) Last Admin: 09/02/22 03:34 Dose: 650 mg Al Hydroxide/Mg Hydroxide (Magnesium Hydrox/Alum Hydrox 30 Ml Oral.Susp) 30 ml PO Q6H PRN PRN Reason: Heartburn/Nausea Last Admin: 08/29/22 02:14 Dose: 30 ml Bupropion HCl (Bupropion Hcl Xl 300 Mg Tab.Er.24h) 300 mg PO DAILY [facility] Last Admin: 09/03/22 10:33 Dose: 300 mg Calcium Carbonate (Calcium Carbonate 500 Mg Tablet) 500 mg PO BID [facility] Last Admin: 09/03/22 10:37 Dose: Not Given Clonazepam (Clonazepam 0.5 Mg Tablet) 0.5 mg PO BID [facility] Last Admin: 09/03/22 12:39 Dose: 0.5 mg Clonidine HCl (Clonidine Hcl 0.1 Mg Tablet) 0.1 mg PO TID [facility]; Protocol Last Admin: 09/03/22 10:34 Dose: 0.1 mg Cyclobenzaprine HCl (Cyclobenzaprine Hcl 5 Mg Tablet) 5 mg PO TID [facility] Last Admin: 09/03/22 10:34 Dose: 5 mg Dicyclomine HCl (Dicyclomine Hcl 10 Mg Capsule) 10 mg PO QIDACHS [facility] Last Admin: 09/03/22 10:33 Dose: 10 mg Docusate Sodium (Docusate Sodium 100 Mg Capsule) 100 mg PO BID [facility] Last Admin: 09/03/22 10:38 Dose: Not Given Famotidine (Famotidine 20 Mg Tablet) 20 mg PO BEDTIME [facility] Last Admin: 09/02/22 20:23 Dose: 20 mg Gabapentin (Gabapentin 300 Mg Capsule) 300 mg PO TID [facility] Last Admin: 09/03/22 10:33 Dose: 300 mg Hydroxyzine HCl (Hydroxyzine Hcl 50 Mg Tablet) 50 mg PO Q6H PRN PRN Reason: anxiety Last Admin: 08/31/22 23:37 Dose: 50 mg Loperamide HCl (Loperamide Hcl 2 Mg Capsule) 2 mg PO Q4H PRN PRN Reason: diarrhea Last Admin: 08/28/22 10:32 Dose: 2 mg Magnesium Hydroxide (Milk Of Magnesia 30 Ml Oral.Susp) 30 ml PO DAILY PRN PRN Reason: Constipation Methadone HCl (Methadone Hcl 20 Mg/2 Ml Oral.Conc) 60 mg PO DAILY [facility] Last Admin: 09/03/22 09:01 Dose: 60 mg Nicotine (Nicotine 14 Mg Patch.Td24) 14 mg TRANSDERMA DAILY [facility] Last Admin: 09/03/22 10:32 Dose: 14 mg Nicotine Polacrilex (Nicotine Polacrilex 2 Mg Gum) 4 mg BUCCAL Q2H PRN PRN Reason: Nicotine Cravings Omeprazole (Omeprazole 40 Mg Capsule.Dr) 40 mg PO DAILY@0630 [facility] Last Admin: 09/03/22 09:31 Dose: Not Given Ondansetron HCl (Ondansetron Odt 4 Mg Tab.Rapdis) 4 mg TRANSLINGU Q6H PRN PRN Reason: Nausea Last Admin: 08/30/22 17:55 Dose: 4 mg Oxycodone HCl (Oxycodone Hcl Immed Release 5 Mg Tablet) 5 mg PO Q6H PRN PRN Reason: severe pain Last Admin: 09/03/22 10:33 Dose: 5 mg Quetiapine Fumarate (Quetiapine Fumarate 50 Mg Tablet) 50 mg PO Q4H PRN PRN Reason: AH/agitation Last Admin: 08/20/22 23:25 Dose: 50 mg Quetiapine Fumarate (Quetiapine Fumarate 100 Mg Tablet) 100 mg PO BID@0900,1500 [facility] Last Admin: 09/03/22 10:33 Dose: 100 mg Quetiapine Fumarate (Quetiapine Fumarate 300 Mg Tablet) 300 mg PO BEDTIME [facility] Last Admin: 09/02/22 20:23 Dose: 300 mg Thiamine HCl (Thiamine Hcl 100 Mg Tablet) 100 mg PO DAILY [facility] Last Admin: 09/03/22 10:34 Dose: 100 mg Trazodone HCl (Trazodone Hcl 50 Mg Tablet) 50 mg PO BEDTIME MRX1 PRN PRN Reason: Insomnia Last Admin: 08/31/22 23:38 Dose: 50 mg Trazodone HCl (Trazodone Hcl 100 Mg Tablet) 200 mg PO BEDTIME [facility] Last Admin: 09/02/22 20:22 Dose: 200 mg Allergies Allergies Allergy/AdvReac Type Severity Reaction Status Date / Time haloperidol [From Haldol] AdvReac see note Verified 08/09/22 20:44 Assessment & Plan Assessment & Plan (1) Sigmoid stricture: Status: Acute Code(s): K56.699 - Other intestinal obstruction unspecified as to partial versus complete obstruction Assessment and Plan: history reviewed pt has hx of left sided abdl pain clinical course previously c/w colitis CT scan suggestive of enterocolitis; colonoscopy last August 31 showing narrowing in sigmoid path pending CEA WNL will follow abd soft and benign seen and examined independently - agree with DEANA Cruz 47 year old male with left sided abdominal pain and diarrhea treated for colitis who had colonoscopy demonstrating sigmoid stricture at 50cm. Biopsies were taken and the pathology is taken. CEA was ordered and is within normal range for a smoker. Await biopsy results. If benign, first appropriate step would be repeat colonoscopy with balloon dilation of sigmoid colon stricture. If this is unable to performed or if he has persistent symptoms following or pathology is cancerous, sigmoid resection would be necessary sooner rather than later is he appears to be partially obstructing due to stricture given his symptoms. Will continue to follow. Case discussed with Dr. Winslow. (2) MDD (major depressive disorder), recurrent episode, moderate: Status: Acute Code(s): F33.1 - Major depressive disorder, recurrent, moderate (3) Post traumatic stress disorder (PTSD): Status: Acute Code(s): F43.10 - Post-traumatic stress disorder, unspecified (4) Opioid use disorder: Status: Acute Code(s): F11.90 - Opioid use, unspecified, uncomplicated Plan 08/20:? continue meds from medicine admission.? add seroquel 100 mg QAM, 50 mg Q4H PRN AH/psychosis.? add clonidine 0.1 mg TID.? T/C sec 35. 08/21:? dizzy, + orthostatic hypotension.? push fluids.? DC clonidine for now.? abd pain for past 8-9 days, already on omep 40.? adding famotidine 20 daily as well. 08/22:? c/o stomach pain, intermittently severe.? also dizziness, intermittent nausea, poor PO intake 2/2 pain, vomiting.? increase methadone to 45. 08/23:? bentyl added last night, scheduled.? eating better, no vomiting, but pt says pain is the same.? increase trazodone to 200 and seroquel to 250 at HS for insomnia.? appears weak and medically ill. 08/24:? appears less ill today, more expressive.? denies stomach pain/n/v.? HOLD norvasc due to hypotension.? otherwise continue current mgmt.? plan to DC oxycodone soon unless strong rationale to continue can be found. 08/25:? c/o stomach pain again, diarrhea.? agrees to increase methadone to 50 mg daily, increase seroquel to 100/100/250. 08/26:? c/o stomach pain.? agrees to increase gabapentin from 100 BID to 300 TID.? also to increase wellbutrin from 150 daily to 300 daily.? depressed, +AH. 08/27 continue tx. 08/28:? per GI, will do endoscopy next week.? and/dep continue.? non-psychotic AH, +SI.? cravings - increase methadone to 55 mg as of tomorrow.? retrial clonidine, starting at 0.05 mg TID today. 08/29: increase hs seroquel??to 300mg for mood AH and sleep. Total daily dose 500mg 08/30: no change 08/31: colonoscopy completed this morning.? abd pain increased.? c/o withdrawal - incr methadone to 60 mg daily.? c/o anxiety - incr clonidine to 0.1 TID. 09/01: continues medically unwell, +SI/anxiety.? awaiting pathology report.? continue current mgmt for now. 09/02: continues medically unwell, +SI/anxiety.? awaiting pathology report.? continue current mgmt for now.? remove IV access per Dr. Winkler. 09/03: prelim read on Bx is no malignancy. psych Sx unchanged, or perhaps worse 2/2 increased anxiety re medical condition. second sigmoidoscopy was recommended, pt declined for today. klonopin 0.5 BID started 09/03, for use in hospital only, in this time of heightened anxiety and uncertainty. Reason for continued inpatient stay Substantial Risk for: harm to self, inability to function and rapid decompensation Time Spent With Patient Time: Total time managing care of this patient today __35__ minutes.
--- NOTE | 2022-09-03 15:24 | PM.EVENT ---
Event Note Date of Service: 09/03/22 Event Note: Pt continues to have abdominal pain (worse after eating) and diarrhea. 08/31/22 Colonoscopy showed edematous folds with a tight stricture with possible mass (inflammatory versus neoplastic) at 50 cms Preliminary bx results per pathology - No malignancy detected. Final report is pending Biopsy results reviewed with the patient. He was advised to schedule flex sig with balloon dilation of sigmoid colon stricture. Pt refused to have repeat sigmoidoscopy for balloon dilation Pt likely has chronic colon ischemia due to recurrent ischemic colitis associated with regular cocaine use (Cocaine can cause vasoconstriction, hypercoagulation or direct endothelial injury) complicated by sigmoid colon stricture. Strictures may resolve spontaneously in 12-24 months without specific therapy. Crohn's disease is less likely. RECOMMENDATIONS: 1. Oxycodone 5 mg PO 30 min before meals for control of post prandial pain. 2. Dicyclomine dose can be increased to 20 mg 3 times daily 3. Surgery consult placed and pt discussed with Dr Winslow. Time Spent With Patient Time: Total time managing care of this patient today ____ minutes.
[2022-09-03] MEDS: Dicyclomine HCl 10 MG CAPSULE 20 MG PO (18:09)
[2022-09-03 20:15] VITALS: BP 107/64; PULSE 87; RESP 18; TEMP 36.4; O2SAT 98
[2022-09-03] MEDS: QUEtiapine Fumarate 300 MG TABLET PO (21:05)
[2022-09-03] MEDS: traZODone HCL 100 MG TABLET 200 MG PO (21:05)
[2022-09-03] MEDS: Docusate Sodium 100 MG CAPSULE PO (21:05)
[2022-09-03] MEDS: Famotidine 20 MG TABLET PO (21:05)
[2022-09-04 08:00] VITALS: BP 94/63; PULSE 98; RESP 18; TEMP 36.6; O2SAT 99
[2022-09-04] MEDS: methADONE HCl 20 MG/2 ML ORAL.CONC 60 MG PO (09:55)
[2022-09-04] MEDS: oxyCODONE HCl Immed Release 5 MG TABLET PO ×3 (09:58→17:30)
[2022-09-04] MEDS: Dicyclomine HCl 10 MG CAPSULE 20 MG PO ×3 (10:31→16:43)
[2022-09-04] MEDS: cloNIDine HCL 0.1 MG TABLET PO (10:31)
[2022-09-04] MEDS: QUEtiapine Fumarate 100 MG TABLET PO ×2 (10:32→15:02)
[2022-09-04] MEDS: Cyclobenzaprine HCl 5 MG TABLET PO ×3 (10:32→22:13)
[2022-09-04] MEDS: clonazePAM 0.5 MG TABLET PO ×3 (10:32→22:14)
[2022-09-04] MEDS: buPROPion HCl XL 300 MG TAB.ER.24H PO (10:33)
[2022-09-04] MEDS: Gabapentin 300 MG CAPSULE PO ×3 (10:33→22:14)
[2022-09-04] MEDS: Omeprazole 40 MG CAPSULE.DR PO (10:33)
[2022-09-04] MEDS: Nicotine 14 MG PATCH.TD24 TRANSDERMA (10:34)
[2022-09-04] MEDS: Acetaminophen 325 MG TABLET 650 MG PO (12:07)
[2022-09-04] MEDS: QUEtiapine Fumarate 50 MG TABLET PO ×2 (12:07→17:31)
[2022-09-04 14:55] VITALS: BP 90/61; PULSE 71; RESP 18; O2SAT 97
[2022-09-04 15:00] VITALS: BP 100/60; O2SAT 97
--- NOTE | 2022-09-04 15:29 | HO.PSYCHPN ---
Subjective Subjective Date of Service: 09/04/22 Reason For Visit: SI Interim History: pt seen with MARILU sanchez for the most part. histrionic, somewhat labile. continues to c/o anxiety, AH , stomach pain. discuss Bx results - no malignancy. connect with Peterson Carvajal, who will do balloon dilation on wednesday. agrees to increase klonopin from 0.5 BID to 0.5 TID. also c/o nightmares and agrees to redistribute clonidine from 0.1 TID to 0.05/0.05/0.2. per staff, anxious re maybe having cancer. stating he has no desire to live. med-compliant. ambivalent about surgery. stomach pain. slept about 7 hours. Mental Status Exam Mental Status Exam Narrative: pt is alert, oriented and pleasant. speech nml rate, amount, loudness, latency. fair eye contact. Affect is normo-intense, non-labile. mood depressed and anxious. + AH. + SI. no HI, VH expressed. Cognitively is intact. Judgment is impaired Diagnostics Vital Signs (24Hr): Vital Signs - 24 hr 09/03/22 20:15 09/04/22 08:00 09/04/22 14:55 Temperature 97.6 F 97.9 F Pulse Rate 87 98 71 Respiratory Rate 18 18 18 Blood Pressure 107/64 94/63 90/61 Pulse Oximetry 98 99 97 Oxygen Delivery Method Room Air Room Air Room Air 09/04/22 15:00 Temperature Pulse Rate Respiratory Rate Blood Pressure 100/60 Pulse Oximetry 97 Oxygen Delivery Method Room Air BMI result Body Mass Index 20.2 Labs 08/31/22 15:10 08/22/22 17:59 Imaging Radiology Impressions: ITS Impressions KUB X-Ray 08/22/22 18:16 IMPRESSION: No evidence of bowel obstruction. Large amount of stool in the right colon.. Medications Medications Current Medications Acetaminophen (Acetaminophen 325 Mg Tablet) 650 mg PO Q6H PRN PRN Reason: Headache/Pain Mild Scale (1-3) Last Admin: 09/04/22 12:07 Dose: 650 mg Al Hydroxide/Mg Hydroxide (Magnesium Hydrox/Alum Hydrox 30 Ml Oral.Susp) 30 ml PO Q6H PRN PRN Reason: Heartburn/Nausea Last Admin: 08/29/22 02:14 Dose: 30 ml Bupropion HCl (Bupropion Hcl Xl 300 Mg Tab.Er.24h) 300 mg PO DAILY [facility] Last Admin: 09/04/22 10:33 Dose: 300 mg Calcium Carbonate (Calcium Carbonate 500 Mg Tablet) 500 mg PO BID [facility] Last Admin: 09/04/22 10:33 Dose: Not Given Clonazepam (Clonazepam 0.5 Mg Tablet) 0.5 mg PO TID [facility] Last Admin: 09/04/22 15:02 Dose: 0.5 mg Clonidine HCl (Clonidine Hcl 0.2 Mg Tablet) 0.2 mg PO BEDTIME [facility]; Protocol Clonidine HCl (Clonidine Hcl 0.1 Mg Tablet) 0.05 mg PO BID@0900,1500 [facility]; Protocol Last Admin: 09/04/22 15:03 Dose: Not Given Cyclobenzaprine HCl (Cyclobenzaprine Hcl 5 Mg Tablet) 5 mg PO TID [facility] Last Admin: 09/04/22 15:02 Dose: 5 mg Dicyclomine HCl (Dicyclomine Hcl 10 Mg Capsule) 20 mg PO TIDAC [facility] Last Admin: 09/04/22 13:16 Dose: 20 mg Docusate Sodium (Docusate Sodium 100 Mg Capsule) 100 mg PO BID [facility] Last Admin: 09/04/22 10:30 Dose: Not Given Famotidine (Famotidine 20 Mg Tablet) 20 mg PO BEDTIME [facility] Last Admin: 09/03/22 21:05 Dose: 20 mg Gabapentin (Gabapentin 300 Mg Capsule) 300 mg PO TID [facility] Last Admin: 09/04/22 15:02 Dose: 300 mg Hydroxyzine HCl (Hydroxyzine Hcl 50 Mg Tablet) 50 mg PO Q6H PRN PRN Reason: anxiety Last Admin: 08/31/22 23:37 Dose: 50 mg Loperamide HCl (Loperamide Hcl 2 Mg Capsule) 2 mg PO Q4H PRN PRN Reason: diarrhea Last Admin: 08/28/22 10:32 Dose: 2 mg Magnesium Hydroxide (Milk Of Magnesia 30 Ml Oral.Susp) 30 ml PO DAILY PRN PRN Reason: Constipation Methadone HCl (Methadone Hcl 20 Mg/2 Ml Oral.Conc) 60 mg PO DAILY [facility] Last Admin: 09/04/22 09:55 Dose: 60 mg Nicotine (Nicotine 14 Mg Patch.Td24) 14 mg TRANSDERMA DAILY [facility] Last Admin: 09/04/22 10:34 Dose: 14 mg Nicotine Polacrilex (Nicotine Polacrilex 2 Mg Gum) 4 mg BUCCAL Q2H PRN PRN Reason: Nicotine Cravings Omeprazole (Omeprazole 40 Mg Capsule.Dr) 40 mg PO DAILY@0630 [facility] Last Admin: 09/04/22 10:33 Dose: 40 mg Ondansetron HCl (Ondansetron Odt 4 Mg Tab.Rapdis) 4 mg TRANSLINGU Q6H PRN PRN Reason: Nausea Last Admin: 08/30/22 17:55 Dose: 4 mg Oxycodone HCl (Oxycodone Hcl Immed Release 5 Mg Tablet) 5 mg PO TID@0900,1300,1800 [facility] Last Admin: 09/04/22 13:16 Dose: 5 mg Oxycodone HCl (Oxycodone Hcl Immed Release 5 Mg Tablet) 5 mg PO Q12H PRN PRN Reason: Pain, Severe (Pain Scale 7-10) Stop: 09/04/22 18:00 Quetiapine Fumarate (Quetiapine Fumarate 50 Mg Tablet) 50 mg PO Q4H PRN PRN Reason: AH/agitation Last Admin: 09/04/22 12:07 Dose: 50 mg Quetiapine Fumarate (Quetiapine Fumarate 100 Mg Tablet) 100 mg PO BID@0900,1500 [facility] Last Admin: 09/04/22 15:02 Dose: 100 mg Quetiapine Fumarate (Quetiapine Fumarate 300 Mg Tablet) 300 mg PO BEDTIME [facility] Last Admin: 09/03/22 21:05 Dose: 300 mg Thiamine HCl (Thiamine Hcl 100 Mg Tablet) 100 mg PO DAILY [facility] Last Admin: 09/04/22 10:30 Dose: Not Given Trazodone HCl (Trazodone Hcl 50 Mg Tablet) 50 mg PO BEDTIME MRX1 PRN PRN Reason: Insomnia Last Admin: 08/31/22 23:38 Dose: 50 mg Trazodone HCl (Trazodone Hcl 100 Mg Tablet) 200 mg PO BEDTIME [facility] Last Admin: 09/03/22 21:05 Dose: 200 mg Allergies Allergies Allergy/AdvReac Type Severity Reaction Status Date / Time haloperidol [From Haldol] AdvReac see note Verified 08/09/22 20:44 Assessment & Plan Assessment & Plan (1) Sigmoid stricture: Status: Acute Code(s): K56.699 - Other intestinal obstruction unspecified as to partial versus complete obstruction Assessment and Plan: history reviewed pt has hx of left sided abdl pain clinical course previously c/w colitis CT scan suggestive of enterocolitis; colonoscopy last August 31 showing narrowing in sigmoid path pending CEA WNL will follow abd soft and benign seen and examined independently - agree with DEANA Cruz 47 year old male with left sided abdominal pain and diarrhea treated for colitis who had colonoscopy demonstrating sigmoid stricture at 50cm. Biopsies were taken and the pathology is taken. CEA was ordered and is within normal range for a smoker. Await biopsy results. If benign, first appropriate step would be repeat colonoscopy with balloon dilation of sigmoid colon stricture. If this is unable to performed or if he has persistent symptoms following or pathology is cancerous, sigmoid resection would be necessary sooner rather than later is he appears to be partially obstructing due to stricture given his symptoms. Will continue to follow. Case discussed with Dr. Winslow. (2) MDD (major depressive disorder), recurrent episode, moderate: Status: Acute Code(s): F33.1 - Major depressive disorder, recurrent, moderate (3) Post traumatic stress disorder (PTSD): Status: Acute Code(s): F43.10 - Post-traumatic stress disorder, unspecified (4) Opioid use disorder: Status: Acute Code(s): F11.90 - Opioid use, unspecified, uncomplicated Plan 08/20:? continue meds from medicine admission.? add seroquel 100 mg QAM, 50 mg Q4H PRN AH/psychosis.? add clonidine 0.1 mg TID.? T/C sec 35. 08/21:? dizzy, + orthostatic hypotension.? push fluids.? DC clonidine for now.? abd pain for past 8-9 days, already on omep 40.? adding famotidine 20 daily as well. 08/22:? c/o stomach pain, intermittently severe.? also dizziness, intermittent nausea, poor PO intake 2/2 pain, vomiting.? increase methadone to 45. 08/23:? bentyl added last night, scheduled.? eating better, no vomiting, but pt says pain is the same.? increase trazodone to 200 and seroquel to 250 at HS for insomnia.? appears weak and medically ill. 08/24:? appears less ill today, more expressive.? denies stomach pain/n/v.? HOLD norvasc due to hypotension.? otherwise continue current mgmt.? plan to DC oxycodone soon unless strong rationale to continue can be found. 08/25:? c/o stomach pain again, diarrhea.? agrees to increase methadone to 50 mg daily, increase seroquel to 100/100/250. 08/26:? c/o stomach pain.? agrees to increase gabapentin from 100 BID to 300 TID.? also to increase wellbutrin from 150 daily to 300 daily.? depressed, +AH. 08/27 continue tx. 08/28:? per GI, will do endoscopy next week.? and/dep continue.? non-psychotic AH, +SI.? cravings - increase methadone to 55 mg as of tomorrow.? retrial clonidine, starting at 0.05 mg TID today. 08/29: increase hs seroquel??to 300mg for mood AH and sleep. Total daily dose 500mg 08/30: no change 08/31: colonoscopy completed this morning.? abd pain increased.? c/o withdrawal - incr methadone to 60 mg daily.? c/o anxiety - incr clonidine to 0.1 TID. 09/01: continues medically unwell, +SI/anxiety.? awaiting pathology report.? continue current mgmt for now. 09/02: continues medically unwell, +SI/anxiety.? awaiting pathology report.? continue current mgmt for now.? remove IV access per Dr. Winkler. 09/03: prelim read on Bx is no malignancy. psych Sx unchanged, or perhaps worse 2/2 increased anxiety re medical condition. second sigmoidoscopy was recommended, pt declined for today. klonopin 0.5 BID started 09/03, for use in hospital only, in this time of heightened anxiety and uncertainty. 09/04: increase klonopin to 0.5 TID. change clonidine to 0.05/0.05/0.2. willing to have procedure done, will be done wednesday per Dr. Winkler. Bx results NEG for malignancy. Patient educated on: medication risk/benefits and medical condition Reason for continued inpatient stay Substantial Risk for: harm to self, inability to function, rapid decompensation and med/psych decompensation Time Spent With Patient Time: Total time managing care of this patient today __35__ minutes.
[2022-09-04 20:45] VITALS: BP 117/80; PULSE 104; RESP 18; TEMP 36.4; O2SAT 98
[2022-09-04] MEDS: Famotidine 20 MG TABLET PO (22:13)
[2022-09-04] MEDS: cloNIDine HCL 0.2 MG TABLET PO (22:14)
[2022-09-04] MEDS: QUEtiapine Fumarate 300 MG TABLET PO (22:15)
[2022-09-04] MEDS: Docusate Sodium 100 MG CAPSULE PO (22:15)
[2022-09-04] MEDS: traZODone HCL 100 MG TABLET 200 MG PO (22:15)
[2022-09-05] MEDS: oxyCODONE HCl Immed Release 5 MG TABLET PO ×4 (01:30→17:52)
[2022-09-05] MEDS: buPROPion HCl XL 300 MG TAB.ER.24H PO (08:42)
[2022-09-05] MEDS: Cyclobenzaprine HCl 5 MG TABLET PO ×3 (08:42→21:35)
[2022-09-05] MEDS: Omeprazole 40 MG CAPSULE.DR PO (08:43)
[2022-09-05] MEDS: Gabapentin 300 MG CAPSULE PO ×3 (08:43→21:34)
[2022-09-05] MEDS: Dicyclomine HCl 10 MG CAPSULE 20 MG PO ×3 (08:43→17:53)
[2022-09-05] MEDS: clonazePAM 0.5 MG TABLET PO ×2 (08:43→14:45)
[2022-09-05] MEDS: QUEtiapine Fumarate 100 MG TABLET PO ×2 (08:44→14:45)
[2022-09-05 08:45] VITALS: BP 104/64; PULSE 85; RESP 18; TEMP 36.7; O2SAT 96
[2022-09-05] MEDS: cloNIDine HCL 0.1 MG TABLET 0.05 MG PO ×2 (08:45→14:45)
[2022-09-05] MEDS: methADONE HCl 20 MG/2 ML ORAL.CONC 60 MG PO (08:47)
[2022-09-05] MEDS: Nicotine 14 MG PATCH.TD24 TRANSDERMA (08:52)
--- NOTE | 2022-09-05 10:14 | HO.PSYCHPN ---
Subjective Subjective Date of Service: 09/05/22 Reason For Visit: SI Healthcare Proxy: No Guardianship: No Medical Problems Affecting Mental Status: Yes Interim History: Pt with recently dx abdominal mass, fatigued and sleeping alot- confused on awakening- tried to drink from a pen- used br and then sat in kitchen we rechecked labs and are getting a urine culture- He denies dep/si, sleeping ok, energy low, apt ok - denies trouble urinating or bms but was incontinent last pm also on combo of methadone and oxy? Medication Compliance: Yes Side effects from medications: Yes (?) Attending Groups: No Review of Systems Acute medical concerns: Yes confusion, abdomina/colon mass, pending sigmoidoscopy last CT a month ago showed no changes Medical Review of Systems: changed Review of Systems: confusion, incontinence Mental Status Exam Mental Status Exam Patient Appearance: Unkempt, Bizarre and Malodorous Patient Orientation: Person and Situation Level of Consciousness: Drowsy, Sedated and Disoriented Patient Behavior: Passive and Confused Mood Description: Blunted Patient Cognition Impaired: Yes Ability to Follow Directions: Fair Speech Pattern: Impoverished Thought Process: Disoriented and Slowed Thinking Thought Content: positive for Slowed Thinking Depressive Symptoms: Diff. Making Decisions and Sleeping More Than Usual Abnormal Motor Activity Signs and Symptoms: Psychomotor Retardation Judgement: Poor Diagnostics Vital Signs (24Hr): Vital Signs - 24 hr 09/04/22 14:55 09/04/22 15:00 09/04/22 20:45 Temperature 97.6 F Pulse Rate 71 104 H Respiratory Rate 18 18 Blood Pressure 90/61 100/60 117/80 Pulse Oximetry 97 97 98 Oxygen Delivery Method Room Air Room Air Room Air BMI result Body Mass Index 20.2 Labs 08/31/22 15:10 08/22/22 17:59 Labs: rechecked these today - his wbc only 9 , and bun/cr are better, sodium also wnl pending ammonia and urine cx, text in to dr mcdonnell about why pt on methadone and oxy, number of things could be causing confusion at this point Imaging Radiology Impressions: ITS Impressions [facility] X-Ray 08/22/22 18:16 IMPRESSION: No evidence of bowel obstruction. Large amount of stool in the right colon.. Medications Medications Current Medications Acetaminophen (Acetaminophen 325 Mg Tablet) 650 mg PO Q6H PRN PRN Reason: Headache/Pain Mild Scale (1-3) Last Admin: 09/04/22 12:07 Dose: 650 mg Al Hydroxide/Mg Hydroxide (Magnesium Hydrox/Alum Hydrox 30 Ml Oral.Susp) 30 ml PO Q6H PRN PRN Reason: Heartburn/Nausea Last Admin: 08/29/22 02:14 Dose: 30 ml Bupropion HCl (Bupropion Hcl Xl 300 Mg Tab.Er.24h) 300 mg PO DAILY [facility] Last Admin: 09/05/22 08:42 Dose: 300 mg Calcium Carbonate (Calcium Carbonate 500 Mg Tablet) 500 mg PO BID [facility] Last Admin: 09/05/22 08:53 Dose: Not Given Clonazepam (Clonazepam 0.5 Mg Tablet) 0.5 mg PO TID [facility] Last Admin: 09/05/22 08:43 Dose: 0.5 mg Clonidine HCl (Clonidine Hcl 0.2 Mg Tablet) 0.2 mg PO BEDTIME [facility]; Protocol Last Admin: 09/04/22 22:14 Dose: 0.2 mg Clonidine HCl (Clonidine Hcl 0.1 Mg Tablet) 0.05 mg PO BID@0900,1500 [facility]; Protocol Last Admin: 09/05/22 08:45 Dose: 0.05 mg Cyclobenzaprine HCl (Cyclobenzaprine Hcl 5 Mg Tablet) 5 mg PO TID [facility] Last Admin: 09/05/22 08:42 Dose: 5 mg Dicyclomine HCl (Dicyclomine Hcl 10 Mg Capsule) 20 mg PO TIDAC [facility] Last Admin: 09/05/22 08:43 Dose: 20 mg Docusate Sodium (Docusate Sodium 100 Mg Capsule) 100 mg PO BID [facility] Last Admin: 09/05/22 09:47 Dose: Not Given Famotidine (Famotidine 20 Mg Tablet) 20 mg PO BEDTIME [facility] Last Admin: 09/04/22 22:13 Dose: 20 mg Gabapentin (Gabapentin 300 Mg Capsule) 300 mg PO TID [facility] Last Admin: 09/05/22 08:43 Dose: 300 mg Hydroxyzine HCl (Hydroxyzine Hcl 50 Mg Tablet) 50 mg PO Q6H PRN PRN Reason: anxiety Last Admin: 08/31/22 23:37 Dose: 50 mg Loperamide HCl (Loperamide Hcl 2 Mg Capsule) 2 mg PO Q4H PRN PRN Reason: diarrhea Last Admin: 08/28/22 10:32 Dose: 2 mg Magnesium Hydroxide (Milk Of Magnesia 30 Ml Oral.Susp) 30 ml PO DAILY PRN PRN Reason: Constipation Methadone HCl (Methadone Hcl 20 Mg/2 Ml Oral.Conc) 60 mg PO DAILY [facility] Last Admin: 09/05/22 08:47 Dose: 60 mg Nicotine (Nicotine 14 Mg Patch.Td24) 14 mg TRANSDERMA DAILY [facility] Last Admin: 09/05/22 08:52 Dose: 14 mg Nicotine Polacrilex (Nicotine Polacrilex 2 Mg Gum) 4 mg BUCCAL Q2H PRN PRN Reason: Nicotine Cravings Omeprazole (Omeprazole 40 Mg Capsule.Dr) 40 mg PO DAILY@0630 [facility] Last Admin: 09/05/22 08:43 Dose: 40 mg Ondansetron HCl (Ondansetron Odt 4 Mg Tab.Rapdis) 4 mg TRANSLINGU Q6H PRN PRN Reason: Nausea Last Admin: 08/30/22 17:55 Dose: 4 mg Oxycodone HCl (Oxycodone Hcl Immed Release 5 Mg Tablet) 5 mg PO TID@0900,1300,1800 [facility] Last Admin: 09/05/22 08:42 Dose: 5 mg Quetiapine Fumarate (Quetiapine Fumarate 50 Mg Tablet) 50 mg PO Q4H PRN PRN Reason: AH/agitation Last Admin: 09/04/22 17:31 Dose: 50 mg Quetiapine Fumarate (Quetiapine Fumarate 100 Mg Tablet) 100 mg PO BID@0900,1500 [facility] Last Admin: 09/05/22 08:44 Dose: 100 mg Quetiapine Fumarate (Quetiapine Fumarate 300 Mg Tablet) 300 mg PO BEDTIME [facility] Last Admin: 09/04/22 22:15 Dose: 300 mg Thiamine HCl (Thiamine Hcl 100 Mg Tablet) 100 mg PO DAILY [facility] Last Admin: 09/05/22 08:53 Dose: Not Given Trazodone HCl (Trazodone Hcl 50 Mg Tablet) 50 mg PO BEDTIME MRX1 PRN PRN Reason: Insomnia Last Admin: 08/31/22 23:38 Dose: 50 mg Trazodone HCl (Trazodone Hcl 100 Mg Tablet) 200 mg PO BEDTIME [facility] Last Admin: 09/04/22 22:15 Dose: 200 mg Allergies Allergies Allergy/AdvReac Type Severity Reaction Status Date / Time haloperidol [From Haldol] AdvReac see note Verified 08/09/22 20:44 Assessment & Plan Assessment & Plan (1) Sigmoid stricture: Status: Acute Code(s): K56.699 - Other intestinal obstruction unspecified as to partial versus complete obstruction Assessment and Plan: history reviewed pt has hx of left sided abdl pain clinical course previously c/w colitis CT scan suggestive of enterocolitis; colonoscopy last August 31 showing narrowing in sigmoid path pending CEA WNL will follow abd soft and benign seen and examined independently - agree with DEANA Cruz 47 year old male with left sided abdominal pain and diarrhea treated for colitis who had colonoscopy demonstrating sigmoid stricture at 50cm. Biopsies were taken and the pathology is taken. CEA was ordered and is within normal range for a smoker. Await biopsy results. If benign, first appropriate step would be repeat colonoscopy with balloon dilation of sigmoid colon stricture. If this is unable to performed or if he has persistent symptoms following or pathology is cancerous, sigmoid resection would be necessary sooner rather than later is he appears to be partially obstructing due to stricture given his symptoms. Will continue to follow. Case discussed with Dr. Winslow. (2) MDD (major depressive disorder), recurrent episode, moderate: Status: Acute Code(s): F33.1 - Major depressive disorder, recurrent, moderate (3) Post traumatic stress disorder (PTSD): Status: Acute Code(s): F43.10 - Post-traumatic stress disorder, unspecified (4) Opioid use disorder: Status: Acute Code(s): F11.90 - Opioid use, unspecified, uncomplicated Assessment and Plan: on methadone dr mcdonnell reports oxy was for ischemic bowel pain Plan 08/20:? continue meds from medicine admission.? add seroquel 100 mg QAM, 50 mg Q4H PRN AH/psychosis.? add clonidine 0.1 mg TID.? T/C sec 35. 08/21:? dizzy, + orthostatic hypotension.? push fluids.? DC clonidine for now.? abd pain for past 8-9 days, already on omep 40.? adding famotidine 20 daily as well. 08/22:? c/o stomach pain, intermittently severe.? also dizziness, intermittent nausea, poor PO intake 2/2 pain, vomiting.? increase methadone to 45. 08/23:? bentyl added last night, scheduled.? eating better, no vomiting, but pt says pain is the same.? increase trazodone to 200 and seroquel to 250 at HS for insomnia.? appears weak and medically ill. 08/24:? appears less ill today, more expressive.? denies stomach pain/n/v.? HOLD norvasc due to hypotension.? otherwise continue current mgmt.? plan to DC oxycodone soon unless strong rationale to continue can be found. 08/25:? c/o stomach pain again, diarrhea.? agrees to increase methadone to 50 mg daily, increase seroquel to 100/100/250. 08/26:? c/o stomach pain.? agrees to increase gabapentin from 100 BID to 300 TID.? also to increase wellbutrin from 150 daily to 300 daily.? depressed, +AH. 08/27 continue tx. 08/28:? per GI, will do endoscopy next week.? and/dep continue.? non-psychotic AH, +SI.? cravings - increase methadone to 55 mg as of tomorrow.? retrial clonidine, starting at 0.05 mg TID today. 08/29: increase hs seroquel??to 300mg for mood AH and sleep. Total daily dose 500mg 08/30: no change 08/31: colonoscopy completed this morning.? abd pain increased.? c/o withdrawal - incr methadone to 60 mg daily.? c/o anxiety - incr clonidine to 0.1 TID. 09/01: continues medically unwell, +SI/anxiety.? awaiting pathology report.? continue current mgmt for now. 09/02: continues medically unwell, +SI/anxiety.? awaiting pathology report.? continue current mgmt for now.? remove IV access per Dr. Winkler. 09/03: prelim read on Bx is no malignancy. psych Sx unchanged, or perhaps worse 2/2 increased anxiety re medical condition. second sigmoidoscopy was recommended, pt declined for today. klonopin 0.5 BID started 09/03, for use in hospital only, in this time of heightened anxiety and uncertainty. 09/04: increase klonopin to 0.5 TID. change clonidine to 0.05/0.05/0.2. willing to have procedure done, will be done wednesday per Dr. Winkler. Bx results NEG for malignancy. 09/05 pt confused today- sedated, lowered clonazepam repeated labs contacted hospitalist- dr mcdonnell contacted says unusual for him so lowered clonazepam, sent urine- Patient educated on: medical condition Informed Consent: does not understand and further education needed Reason for continued inpatient stay Substantial Risk for: rapid decompensation and med/psych decompensation Time Spent With Patient Time: Total time managing care of this patient today ____ minutes.
[2022-09-05 12:00] VITALS: BP 100/61; PULSE 95; RESP 16; TEMP 36.7; O2SAT 97
[2022-09-05 15:01] LABS: Basophils Absolute Auto 0.1 X10*3/uL (0.0-0.2); Basophils Percent Auto 0.9 % (0-2); Eosinophils Absolute Auto 0.1 X10*3/uL (0.0-0.4); Eosinophils Percent Auto 0.7 % (0-4); Hematocrit 32.9 % (42.0-52.0); Hemoglobin 10.6 g/dl (14.0-18.0); Imm Gran Abs Auto 0.22 X10*3/uL (0.00-0.03); Imm Gran Pct Auto 2.4 % (0.0-0.4); Lymphocytes Absolute Auto 1.9 X10*3/uL (1.2-4.9); Lymphocytes Percent Auto 20.9 % (20-40); MANUAL DIFF FLAG NO; Mean Corpuscular HGB Conc 32.2 g/dl (31.0-36.0); Mean Corpuscular Hemoglobin 29.6 pg (27.0-33.0); Mean Corpuscular Volume 91.9 fL (80.0-98.0); Mean Platelet Volume 7.9 fL (9.4-12.4); Monocytes Absolute Auto 1.1 X10*3/uL (0.1-1.2); Monocytes Percent Auto 12.2 % (2-11); Neutrophils Absolute Auto 5.8 x10*3/uL (2.0-8.3); Neutrophils Percent Auto 62.9 % (45-73); Platelet Count 706 X10*3/uL (160-400); Red Blood Count 3.58 X10*6/uL (4.60-5.80); Red Cell Distribution Width 14.1 % (11.0-16.0); White Blood Count 9.2 X10*3/uL (4.8-10.8)
[2022-09-05 15:11] LABS: Ammonia 22 umol/L (13-55)
[2022-09-05 15:21] LABS: Alanine Aminotransferase 15 U/L (0-40); Albumin Level 2.6 g/dL (3.5-5.0); Alkaline Phosphatase 94 U/L (39-117); Anion Gap 15 (12-20); Aspartate Amino Transferase 27 U/L (5-37); Bilirubin Total 0.4 mg/dL (0.0-1.0); Blood Urea Nitrogen 21 mg/dL (9-16); Calcium 8.6 mg/dL (8.4-10.2); Carbon Dioxide 29 mmol/L (22-29); Chloride 100 mmol/L (96-108); Creatinine Clr Calc Pharmacy 70.5; Estimated Glomerular Filt Rate > 60; Glucose Random 79 mg/dL (60-115); Potassium 5.1 mmol/L (3.3-5.1); Sodium 139 mmol/L (135-145); Total Protein 6.2 g/dL (6.5-8.0)
--- NOTE | 2022-09-05 16:55 | P.EN_ITS ---
Event Note Date of Service: 09/05/22 Event Note: Follow-up for 47-year-old male patient with a history IV drug abuse, cocaine abuse, HTN, and MDD with psychosis who has been experiencing constant left-sided abdominal pain worse with eating and chronic diarrhea. Patient has been seen by GI and underwent colonoscopy on 08/31/2022 showed edematous folds with a tight stricture and a possible mass that was biopsied. Preliminary pathology showing no malignancy but final results still pending. GI suggested repeat si gmoidoscopy with balloon dilation of sigmoid colon stricture. GI believed patient's symptoms resulted from chronic colon ischemia due to recurrent ischemic colitis status likely secondary to cocaine use, hypercoagulation, or direct endothelial injury complicated by sigmoid colon stricture. Crohn's disease is less likely. Patient was also seen by General surgery who suggested a sigmoid resection sooner rather than later if patient has persistent symptoms following balloon dilation or if pathology is malignant. Nursing reports pt has been occasionally confused lately Patient is set to undergo a sigmoidoscopy for balloon dilation on Wednesday. Time Spent With Patient Time: Total time managing care of this patient today ____ minutes.
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
[2022-09-05] MEDS: Docusate Sodium 100 MG CAPSULE PO (21:34)
[2022-09-05] MEDS: traZODone HCL 100 MG TABLET 200 MG PO (21:34)
[2022-09-05] MEDS: QUEtiapine Fumarate 300 MG TABLET PO (21:34)
[2022-09-05] MEDS: cloNIDine HCL 0.2 MG TABLET PO (21:35)
[2022-09-05] MEDS: clonazePAM 0.5 MG TABLET 0.25 MG PO (21:35)
[2022-09-05] MEDS: Famotidine 20 MG TABLET PO (21:35)
[2022-09-05] MEDS: Acetaminophen 325 MG TABLET 650 MG PO (22:13)
[2022-09-06 08:30] VITALS: BP 109/77; PULSE 86; RESP 16; TEMP 37; O2SAT 96
[2022-09-06] MEDS: methADONE HCl 20 MG/2 ML ORAL.CONC 60 MG PO (08:40)
[2022-09-06] MEDS: clonazePAM 0.5 MG TABLET 0.25 MG PO (08:41)
[2022-09-06] MEDS: oxyCODONE HCl Immed Release 5 MG TABLET PO ×2 (08:41→20:39)
[2022-09-06] MEDS: Dicyclomine HCl 10 MG CAPSULE 20 MG PO ×3 (08:41→17:07)
[2022-09-06] MEDS: Gabapentin 300 MG CAPSULE PO ×2 (08:42→15:11)
[2022-09-06] MEDS: Cyclobenzaprine HCl 5 MG TABLET PO ×2 (08:42→15:11)
[2022-09-06] MEDS: Omeprazole 40 MG CAPSULE.DR PO (08:42)
[2022-09-06] MEDS: buPROPion HCl XL 300 MG TAB.ER.24H PO (08:42)
[2022-09-06] MEDS: QUEtiapine Fumarate 100 MG TABLET PO ×2 (08:42→15:10)
[2022-09-06] MEDS: cloNIDine HCL 0.1 MG TABLET 0.05 MG PO ×2 (08:43→15:11)
[2022-09-06] MEDS: Nicotine 14 MG PATCH.TD24 TRANSDERMA (08:52)
--- NOTE | 2022-09-06 10:23 | P.PNPSI_ITS ---
Subjective Subjective Date of Service: 09/06/22 Reason For Visit: SI Subjective Notes: Conditional Voluntary Healthcare Proxy: No Guardianship: No Medical Problems Affecting Mental Status: Yes (confusional episodes seem related to 30min -1 hr after med dosing ) Interim History: Pt sat confused at his breakfast after dosing of oxy prior to meal - sat around with his breakfast for 3 hrs, and tried to eat a banana peal I changed clonazepam to only prn clearly hold for sedation or confusion and dc standing oxy and change to prn (not before meals) Medication Compliance: Yes Side effects from medications: Yes (confusion) Attending Groups: No Review of Systems Acute medical concerns: Yes ongoing work up of gi issues, ischemic bowel Review of Systems: as described above Mental Status Exam Mental Status Exam Patient Appearance: Fatigued, Disheveled and Unkempt Patient Orientation: Person Level of Consciousness: Drowsy and Disoriented Patient Behavior: Passive and Poor Eye Contact Mood Description: Anxious Affect Description: Blunted Patient Cognition Impaired: Yes Ability to Follow Directions: Poor Speech Pattern: Mumbled and Poor Articulation Thought Process: Confusion Depressive Symptoms: Sleeping More Than Usual and Difficulty Concentrating Judgement: Poor Diagnostics Vital Signs (24Hr): Vital Signs - 24 hr 09/05/22 12:00 Temperature 98.1 F Pulse Rate 95 Respiratory Rate 16 Blood Pressure 100/61 Pulse Oximetry 97 Oxygen Delivery Method Room Air BMI result Body Mass Index 20.2 Labs 09/05/22 14:53 09/05/22 14:53 Labs: Laboratory Results - last 48 hr 09/05/22 09/05/22 09/05/22 14:53 14:53 14:53 WBC 9.2 RBC 3.58 L Hgb 10.6 L Hct 32.9 L MCV 91.9 MCH 29.6 MCHC 32.2 RDW 14.1 Plt Count 706 H MPV 7.9 L Immature Gran % (Auto) 2.4 H Neut % (Auto) 62.9 Lymph % (Auto) 20.9 [place] % (Auto) 12.2 H Eos % (Auto) 0.7 Baso % (Auto) 0.9 Lymph # (Auto) 1.9 [place] # (Auto) 1.1 Eos # (Auto) 0.1 Baso # (Auto) 0.1 Abs Immat Gran (auto) 0.22 H Absolute Neuts (auto) 5.8 Absolute Nucleated RBC 0.000 Nucleated RBC % (auto) 0.0 Sodium 139 Potassium 5.1 Chloride 100 Carbon Dioxide 29 Anion Gap 15 BUN 21 H Creatinine 1.18 Estim Creat Clear Calc 70.5 Estimated GFR > 60 Random Glucose 79 Calcium 8.6 Total Bilirubin 0.4 AST 27 ALT 15 Alkaline Phosphatase 94 Ammonia 22 Total Protein 6.2 L Albumin 2.6 L Imaging Radiology Impressions: ITS Impressions [facility] X-Ray 08/22/22 18:16 IMPRESSION: No evidence of bowel obstruction. Large amount of stool in the right colon.. Medications Medications Current Medications Acetaminophen (Acetaminophen 325 Mg Tablet) 650 mg PO Q6H PRN PRN Reason: Headache/Pain Mild Scale (1-3) Last Admin: 09/05/22 22:13 Dose: 650 mg Al Hydroxide/Mg Hydroxide (Magnesium Hydrox/Alum Hydrox 30 Ml Oral.Susp) 30 ml PO Q6H PRN PRN Reason: Heartburn/Nausea Last Admin: 08/29/22 02:14 Dose: 30 ml Bupropion HCl (Bupropion Hcl Xl 300 Mg Tab.Er.24h) 300 mg PO DAILY [facility] Last Admin: 09/06/22 08:42 Dose: 300 mg Calcium Carbonate (Calcium Carbonate 500 Mg Tablet) 500 mg PO BID [facility] Last Admin: 09/06/22 09:36 Dose: Not Given Clonazepam (Clonazepam 0.5 Mg Tablet) 0.25 mg PO TID [facility] Last Admin: 09/06/22 08:41 Dose: 0.25 mg Clonidine HCl (Clonidine Hcl 0.2 Mg Tablet) 0.2 mg PO BEDTIME [facility]; Protocol Last Admin: 09/05/22 21:35 Dose: 0.2 mg Clonidine HCl (Clonidine Hcl 0.1 Mg Tablet) 0.05 mg PO BID@0900,1500 [facility]; Protocol Last Admin: 09/06/22 08:43 Dose: 0.05 mg Cyclobenzaprine HCl (Cyclobenzaprine Hcl 5 Mg Tablet) 5 mg PO TID [facility] Last Admin: 09/06/22 08:42 Dose: 5 mg Dicyclomine HCl (Dicyclomine Hcl 10 Mg Capsule) 20 mg PO TIDAC [facility] Last Admin: 09/06/22 08:41 Dose: 20 mg Docusate Sodium (Docusate Sodium 100 Mg Capsule) 100 mg PO BID [facility] Last Admin: 09/06/22 09:36 Dose: Not Given Famotidine (Famotidine 20 Mg Tablet) 20 mg PO BEDTIME [facility] Last Admin: 09/05/22 21:35 Dose: 20 mg Gabapentin (Gabapentin 300 Mg Capsule) 300 mg PO TID [facility] Last Admin: 09/06/22 08:42 Dose: 300 mg Hydroxyzine HCl (Hydroxyzine Hcl 50 Mg Tablet) 50 mg PO Q6H PRN PRN Reason: anxiety Last Admin: 08/31/22 23:37 Dose: 50 mg Loperamide HCl (Loperamide Hcl 2 Mg Capsule) 2 mg PO Q4H PRN PRN Reason: diarrhea Last Admin: 08/28/22 10:32 Dose: 2 mg Magnesium Hydroxide (Milk Of Magnesia 30 Ml Oral.Susp) 30 ml PO DAILY PRN PRN Reason: Constipation Methadone HCl (Methadone Hcl 20 Mg/2 Ml Oral.Conc) 60 mg PO DAILY [facility] Last Admin: 09/06/22 08:40 Dose: 60 mg Nicotine (Nicotine 14 Mg Patch.Td24) 14 mg TRANSDERMA DAILY [facility] Last Admin: 09/06/22 08:52 Dose: 14 mg Nicotine Polacrilex (Nicotine Polacrilex 2 Mg Gum) 4 mg BUCCAL Q2H PRN PRN Reason: Nicotine Cravings Omeprazole (Omeprazole 40 Mg Capsule.Dr) 40 mg PO DAILY@0630 [facility] Last Admin: 09/06/22 08:42 Dose: 40 mg Ondansetron HCl (Ondansetron Odt 4 Mg Tab.Rapdis) 4 mg TRANSLINGU Q6H PRN PRN Reason: Nausea Last Admin: 08/30/22 17:55 Dose: 4 mg Oxycodone HCl (Oxycodone Hcl Immed Release 5 Mg Tablet) 5 mg PO TID@0900,1300,1800 [facility] Last Admin: 09/06/22 08:41 Dose: 5 mg Quetiapine Fumarate (Quetiapine Fumarate 50 Mg Tablet) 50 mg PO Q4H PRN PRN Reason: AH/agitation Last Admin: 09/04/22 17:31 Dose: 50 mg Quetiapine Fumarate (Quetiapine Fumarate 100 Mg Tablet) 100 mg PO BID@0900,1500 [facility] Last Admin: 09/06/22 08:42 Dose: 100 mg Quetiapine Fumarate (Quetiapine Fumarate 300 Mg Tablet) 300 mg PO BEDTIME [facility] Last Admin: 09/05/22 21:34 Dose: 300 mg Thiamine HCl (Thiamine Hcl 100 Mg Tablet) 100 mg PO DAILY [facility] Last Admin: 09/06/22 09:37 Dose: Not Given Trazodone HCl (Trazodone Hcl 50 Mg Tablet) 50 mg PO BEDTIME MRX1 PRN PRN Reason: Insomnia Last Admin: 08/31/22 23:38 Dose: 50 mg Trazodone HCl (Trazodone Hcl 100 Mg Tablet) 200 mg PO BEDTIME [facility] Last Admin: 09/05/22 21:34 Dose: 200 mg Allergies Allergies Allergy/AdvReac Type Severity Reaction Status Date / Time haloperidol [From Haldol] AdvReac see note Verified 08/09/22 20:44 Assessment & Plan Assessment & Plan (1) Confusion: Status: Acute Code(s): R41.0 - Disorientation, unspecified Assessment and Plan: might be due to medications combo (2) MDD (major depressive disorder), recurrent episode, moderate: Status: Acute Code(s): F33.1 - Major depressive disorder, recurrent, moderate (3) Post traumatic stress disorder (PTSD): Status: Acute Code(s): F43.10 - Post-traumatic stress disorder, unspecified (4) Opioid use disorder, moderate, in sustained remission: Status: Acute Code(s): F11.21 - Opioid dependence, in remission Assessment and Plan: 09/06methadone with oxy- leading to confusion and prn clonazepam tapered back and changed to prn with staff observing for change ms Plan Follow-up for 47-year-old male patient with a history IV drug abuse, cocaine abuse, HTN, and MDD with psychosis who has been experiencing constant left-sided abdominal pain worse with eating and chronic diarrhea and recent confusion. Confusion Unclear etiology: Patient afebrile, labs unremarkable: no leukocytosis, ammonia WNL ?UTI vs polypharmacy Check UA Monitor mentation Consider reduction in patient's medications if appropriate and UA negative Sigmoid colon stricture Patient will undergo a sigmoidoscopy with balloon dilation on Wednesday09/07/2022 Thank you for allowing us to participate in the care of this patient. Will continue to follow. Please let us know if there are any acute complaints or questions. Patient educated on: medication risk/benefits Informed Consent: further education needed Reason for continued inpatient stay Substantial Risk for: med/psych decompensation Time Spent With Patient Time: Total time managing care of this patient today ____ minutes.
[2022-09-06 14:15] VITALS: BP 114/67; PULSE 90; TEMP 36.8; O2SAT 96
[2022-09-06 15:34] LABS: Appearance Urine Clear; Color Urine Yellow; Glucose Urine UA Negative (Negative); Leukocyte Esterase Urine Trace (Negative); Nitrite Urine Negative (Negative); PH 5.5 (5.0-9.0); UMIC TRIGGER UA YES; Urine Blood Negative (Negative); Urine Ketones Trace mg/dL (Negative); Urine Protein Trace mg/dL (Neg-Trace)
[2022-09-06 15:37] LABS: Bacteria Urine None Seen (None Seen); Hyaline Casts Urine 0-2 /LPF (0-2); RBC Urine 0-2 /HPF (0-2); Squamous Epithelial Cell Urine 0-2 /HPF (0-2); WBC Urine 0-5 /HPF (0-5)
--- NOTE | 2022-09-06 16:40 | PM.EVENT ---
Event Note Date of Service: 09/06/22 Event Note: Encephalopathy work up negative. Etiology of patient's acute confusion remains unclear. UA negative, initial UC negative thus far. Do not suspect UTI. Consider polypharmacy, adjust medications as appropriate. Patient has thombocytosis and iron deficiency anemia likely in the setting of inflammation, colitis. He will undergo sigmoidoscopy tomorrow with Dr. Winkler, prep initiated. Time Spent With Patient Time: Total time managing care of this patient today ____ minutes.
[2022-09-06] MEDS: PEG 3350/Na Sulf,Bicarb,Cl/KCL 4,000 ML SOLN.RECON 4000 ML PO (17:07)
[2022-09-06 20:05] VITALS: BP 126/73; PULSE 88; RESP 18; TEMP 37.1; O2SAT 96
[2022-09-06] MEDS: traZODone HCL 100 MG TABLET 200 MG PO (21:44)
[2022-09-06] MEDS: QUEtiapine Fumarate 300 MG TABLET PO (21:44)
--- NOTE | 2022-09-07 04:27 | PC.NURSE ---
Brian is noted to have been isolating in his room throughout the evening. He continues on the colon prep for his procedure on 09/07 however, after receiving the prep at 1999 he stated that's it no more my stomach hurts and it's all fucked up patient also declined all of his HS medications except the trazodone and the seroquel, software configuration engineer provider made aware. patient requested and received oxycodone at approximately 2030 for c/o abdominal pain 02/02. this signwriter confirmed with the provider that his oxycodone is now PRN, TID and to be given with no specific regards to meal time. Brian is oriented X'4 but is flat and irritable. he denies auditory/visual hallucination, depression/anxiety, and homicidal ideation however, Brian continues to endorse suicidal ideation. what's the point I'm just going to kill myself when I leave this hospital I'm just going to go kill myself. I have a plan I know where I'm gonna go and what I'm gonna do . monitor for safety, patient encouraged multiple times to continue taking his bowel prep. continue Plan of Care
[2022-09-07 08:30] VITALS: BP 101/60; PULSE 92; RESP 18; TEMP 36.9; O2SAT 95
[2022-09-07] MEDS: Sodium Phosphate,Mono-Dibasic 133 ML ENEMA PR (10:51)
--- NOTE | 2022-09-07 13:06 | PC.NURSE ---
1155 Paper Sample Clerk transported Brian to Short Stay surgery via Wheelchair. Pt tha be transported later back to us via stretcher after procedure.
--- NOTE | 2022-09-07 14:57 | HO.PSYCHPN ---
Subjective Subjective Date of Service: 09/07/22 Reason For Visit: SI Interim History: pt seen early afternoon, back from colonoscopy. demoralized, initially saying he does not want to drink anymore and so won't do CT this afternoon. eventually comes around and agrees. states he is feeling so tired he feels his brain is not working right, can't comment on his emotional state. discussed recent over-prescription of oxycodone and klonopin and that he was delirious over the w/e. per staff, NPO yesterday. isolative, withdrawn, quiet. less confused wednesday than wednesday. Mental Status Exam Mental Status Exam Narrative: pt is alert, oriented and pleasant. speech nml rate, amount, loudness, latency. fair eye contact. Affect is normo-intense, mod-labile. mood depressed and anxious. Diagnostics Vital Signs (24Hr): Vital Signs - 24 hr 09/06/22 20:05 09/07/22 08:30 Temperature 98.7 F 98.5 F Pulse Rate 88 92 Respiratory Rate 18 18 Blood Pressure 126/73 101/60 Pulse Oximetry 96 95 Oxygen Delivery Method Room Air Room Air BMI result Body Mass Index 20.2 Labs 09/05/22 14:53 09/05/22 14:53 Labs: Laboratory Results - last 48 hr 09/05/22 09/05/22 09/05/22 14:53 14:53 14:53 WBC 9.2 RBC 3.58 L Hgb 10.6 L Hct 32.9 L MCV 91.9 MCH 29.6 MCHC 32.2 RDW 14.1 Plt Count 706 H MPV 7.9 L Immature Gran % (Auto) 2.4 H Neut % (Auto) 62.9 Lymph % (Auto) 20.9 Meigs % (Auto) 12.2 H Eos % (Auto) 0.7 Baso % (Auto) 0.9 Lymph # (Auto) 1.9 Meigs # (Auto) 1.1 Eos # (Auto) 0.1 Baso # (Auto) 0.1 Abs Immat Gran (auto) 0.22 H Absolute Neuts (auto) 5.8 Absolute Nucleated RBC 0.000 Nucleated RBC % (auto) 0.0 Sodium 139 Potassium 5.1 Chloride 100 Carbon Dioxide 29 Anion Gap 15 BUN 21 H Creatinine 1.18 Estim Creat Clear Calc 70.5 Estimated GFR > 60 Random Glucose 79 Calcium 8.6 Total Bilirubin 0.4 AST 27 ALT 15 Alkaline Phosphatase 94 Ammonia 22 Total Protein 6.2 L Albumin 2.6 L Urine Color Urine Appearance Urine pH Ur Specific Leedey Urine Protein Urine Glucose (UA) Urine Ketones Urine Blood Urine Nitrite Ur Leukocyte Esterase Urine RBC Urine WBC Ur Squamous Epith Cells Urine Bacteria Hyaline Casts 09/06/22 15:20 WBC RBC Hgb Hct MCV MCH MCHC RDW Plt Count MPV Immature Gran % (Auto) Neut % (Auto) Lymph % (Auto) Meigs % (Auto) Eos % (Auto) Baso % (Auto) Lymph # (Auto) Meigs # (Auto) Eos # (Auto) Baso # (Auto) Abs Immat Gran (auto) Absolute Neuts (auto) Absolute Nucleated RBC Nucleated RBC % (auto) Sodium Potassium Chloride Carbon Dioxide Anion Gap BUN Creatinine Estim Creat Clear Calc Estimated GFR Random Glucose Calcium Total Bilirubin AST ALT Alkaline Phosphatase Ammonia Total Protein Albumin Urine Color Yellow Urine Appearance Clear Urine pH 5.5 Ur Specific Leedey 1.020 Urine Protein Trace Urine Glucose (UA) Negative Urine Ketones Trace Urine Blood Negative Urine Nitrite Negative Ur Leukocyte Esterase Trace H Urine RBC 0-2 Urine WBC 0-5 Ur Squamous Epith Cells 0-2 Urine Bacteria None Seen Hyaline Casts 0-2 Imaging Radiology Impressions: ITS Impressions KUB X-Ray 08/22/22 18:16 IMPRESSION: No evidence of bowel obstruction. Large amount of stool in the right colon.. Medications Medications Current Medications Acetaminophen (Acetaminophen 325 Mg Tablet) 650 mg PO Q6H PRN PRN Reason: Headache/Pain Mild Scale (1-3) Last Admin: 09/05/22 22:13 Dose: 650 mg Al Hydroxide/Mg Hydroxide (Magnesium Hydrox/Alum Hydrox 30 Ml Oral.Susp) 30 ml PO Q6H PRN PRN Reason: Heartburn/Nausea Last Admin: 08/29/22 02:14 Dose: 30 ml Bupropion HCl (Bupropion Hcl Xl 300 Mg Tab.Er.24h) 300 mg PO DAILY [facility] Last Admin: 09/06/22 08:42 Dose: 300 mg Calcium Carbonate (Calcium Carbonate 500 Mg Tablet) 500 mg PO BID [facility] Last Admin: 09/06/22 21:00 Dose: Not Given Clonazepam (Clonazepam 0.5 Mg Tablet) 0.25 mg PO TID PRN PRN Reason: anxiety Clonidine HCl (Clonidine Hcl 0.2 Mg Tablet) 0.2 mg PO BEDTIME [facility]; Protocol Last Admin: 09/06/22 21:00 Dose: Not Given Clonidine HCl (Clonidine Hcl 0.1 Mg Tablet) 0.05 mg PO BID@0900,1500 [facility]; Protocol Last Admin: 09/06/22 15:11 Dose: 0.05 mg Cyclobenzaprine HCl (Cyclobenzaprine Hcl 5 Mg Tablet) 5 mg PO TID [facility] Last Admin: 09/06/22 21:00 Dose: Not Given Dicyclomine HCl (Dicyclomine Hcl 10 Mg Capsule) 20 mg PO TIDAC [facility] Last Admin: 09/06/22 17:07 Dose: 20 mg Docusate Sodium (Docusate Sodium 100 Mg Capsule) 100 mg PO BID [facility] Last Admin: 09/06/22 21:00 Dose: Not Given Famotidine (Famotidine 20 Mg Tablet) 20 mg PO BEDTIME [facility] Last Admin: 09/06/22 21:00 Dose: Not Given Gabapentin (Gabapentin 300 Mg Capsule) 300 mg PO TID [facility] Last Admin: 09/06/22 21:00 Dose: Not Given Hydroxyzine HCl (Hydroxyzine Hcl 25 Mg Tablet) 25 mg PO Q6H PRN PRN Reason: anxiety Loperamide HCl (Loperamide Hcl 2 Mg Capsule) 2 mg PO Q4H PRN PRN Reason: diarrhea Last Admin: 08/28/22 10:32 Dose: 2 mg Magnesium Hydroxide (Milk Of Magnesia 30 Ml Oral.Susp) 30 ml PO DAILY PRN PRN Reason: Constipation Methadone HCl (Methadone Hcl 20 Mg/2 Ml Oral.Conc) 60 mg PO DAILY [facility] Last Admin: 09/06/22 08:40 Dose: 60 mg Nicotine (Nicotine 14 Mg Patch.Td24) 14 mg TRANSDERMA DAILY [facility] Last Admin: 09/06/22 08:52 Dose: 14 mg Nicotine Polacrilex (Nicotine Polacrilex 2 Mg Gum) 4 mg BUCCAL Q2H PRN PRN Reason: Nicotine Cravings Omeprazole (Omeprazole 40 Mg Capsule.Dr) 40 mg PO DAILY@0630 [facility] Last Admin: 09/06/22 08:42 Dose: 40 mg Ondansetron HCl (Ondansetron Odt 4 Mg Tab.Rapdis) 4 mg TRANSLINGU Q6H PRN PRN Reason: Nausea Last Admin: 08/30/22 17:55 Dose: 4 mg Oxycodone HCl (Oxycodone Hcl Immed Release 5 Mg Tablet) 5 mg PO TID@0900,1300,1800 PRN PRN Reason: severe pain Last Admin: 09/06/22 20:39 Dose: 5 mg Quetiapine Fumarate (Quetiapine Fumarate 50 Mg Tablet) 50 mg PO Q4H PRN PRN Reason: AH/agitation Last Admin: 09/04/22 17:31 Dose: 50 mg Quetiapine Fumarate (Quetiapine Fumarate 100 Mg Tablet) 100 mg PO BID@0900,1500 [facility] Last Admin: 09/06/22 15:10 Dose: 100 mg Quetiapine Fumarate (Quetiapine Fumarate 300 Mg Tablet) 300 mg PO BEDTIME [facility] Last Admin: 09/06/22 21:44 Dose: 300 mg Sodium Biphosphate/Sodium Phosphate (Sodium Phosphate,Meigs-Dibasic 133 Ml Enema) 133 ml ME ONCE PRN PRN Reason: Poor Colonoscopy Prep Results Last Admin: 09/07/22 10:51 Dose: 133 ml Thiamine HCl (Thiamine Hcl 100 Mg Tablet) 100 mg PO DAILY [facility] Last Admin: 09/06/22 09:37 Dose: Not Given Trazodone HCl (Trazodone Hcl 50 Mg Tablet) 50 mg PO BEDTIME MRX1 PRN PRN Reason: Insomnia Last Admin: 08/31/22 23:38 Dose: 50 mg Trazodone HCl (Trazodone Hcl 100 Mg Tablet) 200 mg PO BEDTIME [facility] Last Admin: 09/06/22 21:44 Dose: 200 mg Allergies Allergies Allergy/AdvReac Type Severity Reaction Status Date / Time haloperidol [From Haldol] AdvReac see note Verified 08/09/22 20:44 Assessment & Plan Assessment & Plan (1) MDD (major depressive disorder), recurrent episode, moderate: Status: Acute Code(s): F33.1 - Major depressive disorder, recurrent, moderate (2) Post traumatic stress disorder (PTSD): Status: Acute Code(s): F43.10 - Post-traumatic stress disorder, unspecified (3) Opioid use disorder, moderate, in sustained remission: Status: Acute Code(s): F11.21 - Opioid dependence, in remission Plan 08/20:? continue meds from medicine admission.? add seroquel 100 mg QAM, 50 mg Q4H PRN AH/psychosis.? add clonidine 0.1 mg TID.? T/C sec 35. 08/21:? dizzy, + orthostatic hypotension.? push fluids.? DC clonidine for now.? abd pain for past 8-9 days, already on omep 40.? adding famotidine 20 daily as well. 08/22:? c/o stomach pain, intermittently severe.? also dizziness, intermittent nausea, poor PO intake 2/2 pain, vomiting.? increase methadone to 45. 08/23:? bentyl added last night, scheduled.? eating better, no vomiting, but pt says pain is the same.? increase trazodone to 200 and seroquel to 250 at HS for insomnia.? appears weak and medically ill. 08/24:? appears less ill today, more expressive.? denies stomach pain/n/v.? HOLD norvasc due to hypotension.? otherwise continue current mgmt.? plan to DC oxycodone soon unless strong rationale to continue can be found. 08/25:? c/o stomach pain again, diarrhea.? agrees to increase methadone to 50 mg daily, increase seroquel to 100/100/250. 08/26:? c/o stomach pain.? agrees to increase gabapentin from 100 BID to 300 TID.? also to increase wellbutrin from 150 daily to 300 daily.? depressed, +AH. 08/27 continue tx. 08/28:? per GI, will do endoscopy next week.? and/dep continue.? non-psychotic AH, +SI.? cravings - increase methadone to 55 mg as of tomorrow.? retrial clonidine, starting at 0.05 mg TID today. 08/29: increase hs seroquel??to 300mg for mood AH and sleep. Total daily dose 500mg 08/30: no change 08/31: colonoscopy completed this morning.? abd pain increased.? c/o withdrawal - incr methadone to 60 mg daily.? c/o anxiety - incr clonidine to 0.1 TID. 09/01: continues medically unwell, +SI/anxiety.? awaiting pathology report.? continue current mgmt for now. 09/02: continues medically unwell, +SI/anxiety.? awaiting pathology report.? continue current mgmt for now.? remove IV access per Dr. Winkler. 09/03:? prelim read on Bx is no malignancy.? psych Sx unchanged, or perhaps worse 2/2 increased anxiety re medical condition.? second sigmoidoscopy was recommended, pt declined for today.? klonopin 0.5 BID started 09/03, for use in hospital only, in this time of heightened anxiety and uncertainty. 09/04:? increase klonopin to 0.5 TID.? change clonidine to 0.05/0.05/0.2.? willing to have procedure done, will be done wednesday per Dr. Winkler.? Bx results NEG for malignancy. 09/05 pt confused today- sedated, lowered clonazepam repeated labs contacted hospitalist- dr mcdonnell contacted says unusual for him so lowered clonazepam, sent urine- 09/06methadone with oxy- leading to confusion and prn clonazepam tapered back and changed to prn with staff observing for change ms. 09/07: pt much clearer, delirium due to polypharmacy. unable to pass balloon through stricture today, so contrast/noncontrast CTs ordered. may require bowel resection. Patient educated on: diagnosis, medication risk/benefits and medical condition Reason for continued inpatient stay Substantial Risk for: harm to self, inability to function and rapid decompensation Time Spent With Patient Time: Total time managing care of this patient today __25__ minutes.
--- NOTE | 2022-09-07 15:51 | PC.NURSE ---
Pt consumed all of required contrast liquid, for impending scan, @ 1700.
[2022-09-07] MEDS: Dicyclomine HCl 10 MG CAPSULE 20 MG PO (18:21)
[2022-09-07] MEDS: oxyCODONE HCl Immed Release 5 MG TABLET PO (18:21)
[2022-09-07] MEDS: Gabapentin 300 MG CAPSULE PO (18:22)
[2022-09-07 18:32] VITALS: BP 110/76; PULSE 107; RESP 16; TEMP 36.8; O2SAT 96
--- NOTE | 2022-09-07 18:35 | PC.NURSE ---
PT taken to CT scan @ 16:50 returned at 17:15. Right foot IV used, flushed well, remains intact.
--- NOTE | 2022-09-07 18:38 | PC.NURSE ---
PT experiencing 10/10 abdominal pain, VS stable, oxycodone 5mg, gabapentin 300mg, and bentyl 20mg given PO. PT also experiencing severe w/d sx due to not receiving Methadone dose d/t NPO status. call or contact centre coach made aware, no new orders @ this time.
--- NOTE | 2022-09-07 19:15 | PC.NURSE ---
Methadone 60mg ordered, pt refused, concerned that we will hold his dose tomorrow, pt reassured that will not happen however still refusing.
--- NOTE | 2022-09-07 21:52 | PC.NURSE ---
PT refused all evening meds and care.
[2022-09-08 08:15] VITALS: BP 142/91; PULSE 94; RESP 18; TEMP 36.6; O2SAT 97
[2022-09-08] MEDS: Ondansetron ODT 4 MG TAB.RAPDIS TRANSLINGU (09:37)
[2022-09-08] MEDS: oxyCODONE HCl Immed Release 5 MG TABLET PO ×3 (09:38→13:37)
[2022-09-08] MEDS: Loperamide HCl 2 MG CAPSULE PO (09:38)
[2022-09-08] MEDS: methADONE HCl 20 MG/2 ML ORAL.CONC 60 MG PO (09:40)
[2022-09-08] MEDS: cloNIDine HCL 0.1 MG TABLET 0.05 MG PO ×2 (09:41→15:22)
[2022-09-08] MEDS: buPROPion HCl XL 300 MG TAB.ER.24H PO (09:45)
[2022-09-08] MEDS: Gabapentin 300 MG CAPSULE PO ×2 (09:47→15:21)
[2022-09-08] MEDS: QUEtiapine Fumarate 100 MG TABLET PO ×2 (09:47→15:21)
[2022-09-08] MEDS: Cyclobenzaprine HCl 5 MG TABLET PO ×2 (09:48→15:24)
[2022-09-08 10:43] VITALS: BP 122/87; PULSE 103; RESP 18; TEMP 36.6; O2SAT 98
[2022-09-08] MEDS: Dicyclomine HCl 10 MG CAPSULE 20 MG PO (11:03)
[2022-09-08] MEDS: 0.9 % Sodium Chloride Flush 3 ML SYRINGE IVFLUSH (11:44)
--- NOTE | 2022-09-08 13:24 | P.PNGS_ITS ---
Subjective Subjective Date of Service: 09/08/22 Interval history: says he still has abdominal pain especially with eating although better than last week BMs still loose no fever overall, he says he is better than last week Physical Exam Vital Signs: Vital Signs: Last Vital Signs Temp 97.9 F 09/08/22 10:43 Pulse 103 H 09/08/22 10:43 Resp 18 09/08/22 10:43 BP 122/87 09/08/22 10:43 Pulse Ox 98 09/08/22 10:43 O2 Del Method Room Air 09/08/22 10:43 BMI result Body Mass Index 20.2 Const: General: comfortable and no acute distress Resp: Effort & Inspection: normal respiratory effort GI: Inspection: No distended Palpation (GI): Soft to palpation, not firm, Tenderness to palpation present (GI) (minimal tenderness, left more than right) and no guarding Objective Data Active Medications Acetaminophen (Acetaminophen 325 Mg Tablet) 650 mg PO Q6H PRN PRN Reason: Headache/Pain Mild Scale (1-3) Last Admin: 09/05/22 22:13 Dose: 650 mg Documented By: VASYL Al Hydroxide/Mg Hydroxide (Magnesium Hydrox/Alum Hydrox 30 Ml Oral.Susp) 30 ml PO Q6H PRN PRN Reason: Heartburn/Nausea Last Admin: 08/29/22 02:14 Dose: 30 ml Documented By: RAVIN Bupropion HCl (Bupropion Hcl Xl 300 Mg Tab.Er.24h) 300 mg PO DAILY [facility] Last Admin: 09/08/22 09:45 Dose: 300 mg Documented By: JOHNNIE Calcium Carbonate (Calcium Carbonate 500 Mg Tablet) 500 mg PO BID [facility] Last Admin: 09/08/22 09:48 Dose: Not Given Documented By: JOHNNIE Non-Admin Reason: Patient Refused Clonazepam (Clonazepam 0.5 Mg Tablet) 0.25 mg PO TID PRN PRN Reason: anxiety Clonidine HCl (Clonidine Hcl 0.2 Mg Tablet) 0.2 mg PO BEDTIME [facility]; Protocol Last Admin: 09/07/22 21:44 Dose: Not Given Documented By: CATHY Non-Admin Reason: Patient Refused Clonidine HCl (Clonidine Hcl 0.1 Mg Tablet) 0.05 mg PO BID@0900,1500 [facility]; Protocol Last Admin: 09/08/22 09:41 Dose: 0.05 mg Documented By: JOHNNIE Cyclobenzaprine HCl (Cyclobenzaprine Hcl 5 Mg Tablet) 5 mg PO TID [facility] Last Admin: 09/08/22 09:48 Dose: 5 mg Documented By: JOHNNIE Dicyclomine HCl (Dicyclomine Hcl 10 Mg Capsule) 20 mg PO TIDAC [facility] Last Admin: 09/08/22 11:03 Dose: 20 mg Documented By: JOHNNIE Docusate Sodium (Docusate Sodium 100 Mg Capsule) 100 mg PO BID [facility] Last Admin: 09/08/22 09:44 Dose: Not Given Documented By: JOHNNIE Non-Admin Reason: Patient Refused Famotidine (Famotidine 20 Mg Tablet) 20 mg PO BEDTIME [facility] Last Admin: 09/07/22 21:44 Dose: Not Given Documented By: CATHY Non-Admin Reason: Patient Refused Gabapentin (Gabapentin 300 Mg Capsule) 300 mg PO TID [facility] Last Admin: 09/08/22 09:47 Dose: 300 mg Documented By: JOHNNIE Hydroxyzine HCl (Hydroxyzine Hcl 25 Mg Tablet) 25 mg PO Q6H PRN PRN Reason: anxiety Sodium Chloride (Ns) 1,000 mls @ 250 mls/hr IV .Q4H [facility] Stop: 09/08/22 15:35 Loperamide HCl (Loperamide Hcl 2 Mg Capsule) 2 mg PO Q4H PRN PRN Reason: diarrhea Last Admin: 09/08/22 09:38 Dose: 2 mg Documented By: JOHNNIE Magnesium Hydroxide (Milk Of Magnesia 30 Ml Oral.Susp) 30 ml PO DAILY PRN PRN Reason: Constipation Methadone HCl (Methadone Hcl 20 Mg/2 Ml Oral.Conc) 60 mg PO DAILY [facility] Last Admin: 09/08/22 09:40 Dose: 60 mg Documented By: JOHNNIE Nicotine (Nicotine 14 Mg Patch.Td24) 14 mg TRANSDERMA DAILY [facility] Last Admin: 09/08/22 09:39 Dose: Not Given Documented By: JOHNNIE Non-Admin Reason: Patient Refused Nicotine Polacrilex (Nicotine Polacrilex 2 Mg Gum) 4 mg BUCCAL Q2H PRN PRN Reason: Nicotine Cravings Omeprazole (Omeprazole 40 Mg Capsule.Dr) 40 mg PO DAILY@0630 [facility] Last Admin: 09/08/22 05:44 Dose: Not Given Documented By: ED Non-Admin Reason: Patient Refused Ondansetron HCl (Ondansetron Odt 4 Mg Tab.Rapdis) 4 mg TRANSLINGU Q6H PRN PRN Reason: Nausea Last Admin: 09/08/22 09:37 Dose: 4 mg Documented By: JOHNNIE Oxycodone HCl (Oxycodone Hcl Immed Release 5 Mg Tablet) 5 mg PO TID@0900,1300,1800 PRN PRN Reason: severe pain Last Admin: 09/08/22 09:38 Dose: 5 mg Documented By: JOHNNIE Quetiapine Fumarate (Quetiapine Fumarate 50 Mg Tablet) 50 mg PO Q4H PRN PRN Reason: AH/agitation Last Admin: 09/04/22 17:31 Dose: 50 mg Documented By: CARLIE Quetiapine Fumarate (Quetiapine Fumarate 100 Mg Tablet) 100 mg PO BID@0900,1500 [facility] Last Admin: 09/08/22 09:47 Dose: 100 mg Documented By: JOHNNIE Quetiapine Fumarate (Quetiapine Fumarate 300 Mg Tablet) 300 mg PO BEDTIME [facility] Last Admin: 09/07/22 21:45 Dose: Not Given Documented By: CATHY Non-Admin Reason: Patient Refused Sodium Biphosphate/Sodium Phosphate (Sodium Phosphate,Rincon-Dibasic 133 Ml Enema) 133 ml CA ONCE PRN PRN Reason: Poor Colonoscopy Prep Results Last Admin: 09/07/22 10:51 Dose: 133 ml Documented By: JOHNNIE Sodium Chloride (0.9 % Sodium Chloride Flush 3 Ml Syringe) 3 ml IVFLUSH QSHIFT [facility] Last Admin: 09/08/22 11:44 Dose: 3 ml Documented By: JOHNNIE Thiamine HCl (Thiamine Hcl 100 Mg Tablet) 100 mg PO DAILY [facility] Last Admin: 09/08/22 09:45 Dose: Not Given Documented By: JOHNNIE Non-Admin Reason: Patient Refused Trazodone HCl (Trazodone Hcl 50 Mg Tablet) 50 mg PO BEDTIME MRX1 PRN PRN Reason: Insomnia Last Admin: 08/31/22 23:38 Dose: 50 mg Documented By: VASYL Trazodone HCl (Trazodone Hcl 100 Mg Tablet) 200 mg PO BEDTIME [facility] Last Admin: 09/07/22 21:45 Dose: Not Given Documented By: CATHY Non-Admin Reason: Patient Refused Labs 09/05/22 14:53 09/05/22 14:53 Procedures Date of Service Date of Service: 09/08/22 Progress Note: A&P Assessment and plan (1) Abdominal pain: Status: Acute Assessment and Plan: flex sig attempted by Dr. Winkler yesterday - narrowing in sigmoid, unable to traverse CT was therefore ordered - c/w colitis of the transverse colon, distally as well as enteritis of distal ileum not obstructed exam remains benign as per pt, he feels better compared to last weel some interval improvement of colon and SB thickening on CT compared to previous will continue to follow closely - hopeful that colitis/ enteritis may improve Time Spent With Patient Time: Total time managing care of this patient today ____ minutes. Quality Stroke Does the patient have a stroke diagnosis?: No VTE Prior VTE?: No VTE Risk Level:: Medical - low VTE Device Contraindication: Treatment Not Indicated VTE Drug Contraindication: Treatment Not Indicated
[2022-09-08] MEDS: 0.9 % Sodium Chloride 1,000 ML 250 ML IV (13:44)
[2022-09-08 13:47] LABS: MANUAL DIFF FLAG NO
[2022-09-08 13:49] LABS: Basophils Absolute Auto 0.1 X10*3/uL (0.0-0.2); Basophils Percent Auto 0.8 % (0-2); Eosinophils Absolute Auto 0.1 X10*3/uL (0.0-0.4); Hematocrit 30.5 % (42.0-52.0); Hemoglobin 10.2 g/dl (14.0-18.0); Imm Gran Abs Auto 0.16 X10*3/uL (0.00-0.03); Imm Gran Pct Auto 2.7 % (0.0-0.4); Lymphocytes Percent Auto 34.5 % (20-40); Mean Corpuscular HGB Conc 33.4 g/dl (31.0-36.0); Mean Corpuscular Hemoglobin 29.3 pg (27.0-33.0); Mean Corpuscular Volume 87.6 fL (80.0-98.0); Mean Platelet Volume 8.2 fL (9.4-12.4); Monocytes Absolute Auto 1.2 X10*3/uL (0.1-1.2); Monocytes Percent Auto 19.9 % (2-11); Neutrophils Absolute Auto 2.4 x10*3/uL (2.0-8.3); Neutrophils Percent Auto 41.1 % (45-73); Platelet Count 659 X10*3/uL (160-400); Red Blood Count 3.48 X10*6/uL (4.60-5.80); Red Cell Distribution Width 13.8 % (11.0-16.0); White Blood Count 5.9 X10*3/uL (4.8-10.8)
[2022-09-08 13:55] LABS: INTERNATIONAL NORM RATIO 1.2 (0.9-1.1); Prothrombin Time 13.3 SEC (10.0-13.1)
[2022-09-08 13:57] LABS: Partial Thromboplastin Time 30.3 SEC (26.0-36.4)
[2022-09-08 13:59] LABS: Ammonia 29 umol/L (13-55)
--- NOTE | 2022-09-08 14:00 | CA_ITS ---
Transthoracic Echocardiogram Patient (Last, First, Middle): Brian Lu, Gender: Male Date of : 1975 Age: 47 Procedure Date: 09/08/2022 Procedure Type: Transthoracic Echocardiogram Location: M3 Height: 180.34 cm Weight: 65.77 kg BSA: 1.84 m2 Heart Rate: bpm BP: 122 / 87 mmHg [employer]: ALAYNA Referring MD: Suellen LEBLANC Symptoms: elevated right heart pressures Study Quality: Adequate ECG Rhythm: Sinus Conclusions: - Normal left ventricular size and systolic function. The visually estimated ejection fraction is between 55-60%. - The basal inferior segment is akinetic. - The right ventricular systolic pressure is 32 mmHg. Normal right atrial pressure. There is no evidence of pulmonary hypertension. Findings Left Ventricle Normal left ventricular size and systolic function. The visually estimated ejection fraction is between 55-60%. There is evidence of regional wall motion abnormalities. Wall Motion Rest Echo Findings The basal inferior segment is akinetic. Right Ventricle Normal right ventricular cavity size and systolic function. Aortic Valve There is a normal trileaflet aortic valve. Tricuspid Valve Normal tricuspid valve structure and function. There is trace tricuspid valve regurgitation. The right ventricular systolic pressure is 32 mmHg. Normal right atrial pressure. There is no evidence of pulmonary hypertension. Venous The inferior vena cava is normal in size and collapses greater than 50% with inspiration. Pericardium/Pleural There is no evidence of pericardial effusion. Prior Study Comparison Changes noted compared to prior study dated: 08/10/2022. PA pressures improved. LV function is not hyperdynamic anymore. Basal inferior wall is akinetic. Measurements Right Ventricle TAPSE (mm): 20.00 TVS' Cristiano: 13.40 Tricuspid Valve TR Pk Cristiano: 2.43 TR Pk Grad: 24.00 RA Press: 8.00 RVSP: 32.00 Updated in Other Vendor System with Status of Final Alvaro Schulte MD electronically signed on 09/09/2022 12:48:12 PM with status of Final
[2022-09-08 14:07] LABS: Alanine Aminotransferase 11 U/L (0-40); Albumin Level 2.4 g/dL (3.5-5.0); Alkaline Phosphatase 82 U/L (39-117); Anion Gap 8 (12-20); Aspartate Amino Transferase 17 U/L (5-37); Bilirubin Total 0.3 mg/dL (0.0-1.0); Blood Urea Nitrogen 9 mg/dL (9-16); C Reactive Protein 8.29 mg/dL (< or = 0.50); Calcium 8.2 mg/dL (8.4-10.2); Carbon Dioxide 29 mmol/L (22-29); Chloride 98 mmol/L (96-108); Creatinine Clr Calc Pharmacy 102.7; Estimated Glomerular Filt Rate > 60; Glucose Random 105 mg/dL (60-115); Potassium 4.3 mmol/L (3.3-5.1); Sodium 131 mmol/L (135-145); Total Protein 5.8 g/dL (6.5-8.0)
[2022-09-08 14:26] LABS: Erythrocyte Sedimentation Rate 88 MM/HR (0-15)
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
[2022-09-08 15:17] VITALS: BP 120/85; PULSE 106; RESP 18; TEMP 36.6; O2SAT 98
[2022-09-08] MEDS: clonazePAM 0.5 MG TABLET 0.25 MG PO (15:25)
[2022-09-08 16:06] LABS: Lipase 8 U/L (8-78)
--- NOTE | 2022-09-08 16:10 | PC.NURSE ---
1605 pt transferred to medial floor 471 pt is aware.
[2022-09-08 16:30] LABS: Vitamin B12 1173 pg/mL (200-900)
== END 2022-09-08 16:07 | disposition short-term general hospital (02) | DRG 751 ==
PROVIDERS: Internal Medicine Gastroenterology; Physician Assistant; Psychiatry & Neurology Psychiatry; Student in an Organized Health Care Education/Training Program; Admitting Provider Psychiatry & Neurology Psychiatry; Visit Provider Psychiatry & Neurology Psychiatry
DX: F33.1 Major depressive disorder, recurrent, moderate (principal); G93.40 Encephalopathy, unspecified; K55.9 Vascular disorder of intestine, unspecified; K56.699 Other intestinal obstruction unspecified as to partial versus complete obstruction; R45.851 Suicidal ideations; F19.10 Other psychoactive substance abuse, uncomplicated; F11.20 Opioid dependence, uncomplicated; F43.10 Post-traumatic stress disorder, unspecified; I10 Essential (primary) hypertension; K21.9 Gastro-esophageal reflux disease without esophagitis; K59.00 Constipation, unspecified; Z91.51 Personal history of suicidal behavior; Z87.891 Personal history of nicotine dependence; Z79.899 Other long term (current) drug therapy; Z59.02 Unsheltered homelessness
CPT/HCPCS: 36415; 74018; 80053; 81001; 82140; 82378; 82607; 82728; 82746; 83540; 83605; 83690; 83735; 85007; 85025; 85027; 85610; 85652; 85730; 86140; 87086; 93308

== ENCOUNTER → 2022-08-31 | Day surgery (SDC) | payer MEDICAID, SELFPAY ==
[2022-08-31 07:52] VITALS: BP 125/86; PULSE 85; RESP 16; TEMP 36.9; O2SAT 95; BMI 20.9
--- NOTE | 2022-08-31 08:20 | MHC.SHP ---
Pre-Procedural Eval Section A Date of Service: 08/31/22 The patient is an INPATIENT: Yes Changes since office visit: Yes New Medical Problems, Yes Changes in Medication and Yes Patient answered all questions; No Cold of Flu in the past 2 weeks The History & Physical has been completed within 30 days and I have reviewed it.: Yes Section B Chief Complaint: abdominal pain,abnormal CT findings Allergies: Allergies Allergy/AdvReac Type Severity Reaction Status Date / Time haloperidol [From Haldol] AdvReac see note Verified 08/09/22 20:44 Plan I have reviewed the history and physical and performed a pertinent physical examination on my patient. No changes have occurred unless specified. Time Spent With Patient Time: Total time managing care of this patient today ____ minutes.
--- NOTE | 2022-08-31 08:33 | W.PM.OPN ---
Operative Note Operative Note Date of Service: 08/31/22 Narrative: FLEXIBLE TRANSORAL UPPER GASTROINTESTINAL ENDOSCOPY WITH BIOPSIES AND COLONOSCOPY TILL CECUM WITH BIOPSIES Pre-op diagnosis: Abdominal pain, diarrhea, abnormal CT scan of the colon Post-op diagnosis: Esophageal ulcer, gastritis, stricture sigmoid colon? Endoscopist:? Santosh Winkler MD Anesthesia:?MAC UPPER ENDOSCOPY Consent: Indications for the procedure and potential complications of bleeding, perforation, reaction to medications and missed diagnosis were discussed with the patient and informed consent was obtained. Instrument: Olympus GIF H 190 mid size upper endoscope Monitoring: Vital signs and clinical assessment, continuous EKG monitoring, Pulse oximetry, Carbon Dioxide monitoring and blood pressure monitoring were done throughout the procedure. Procedure: The patient was placed in the left lateral decubitis position and pre-procedure medications were administered and a bite block was placed. The endoscope was inserted into the mouth and advanced under direct vision to the third part of duodenum. A careful inspection was made as the upper endoscope was withdrawn including a retroflexed examination of the proximal stomach; Findings and interventions are described below. Findings: Larynx: Normal Esophagus: GE junction at 40 cms. A large 2 cms long ulcer from 36 to 38 cms covering 50% of the esophageal circumference - biopsies obtained. Stomach: Mild gastric erythema. Biopsies were obtained. Grade 2 flap valve on retroflexed examination of the cardia. Duodenum: Normal bulb and descending duodenum. Biopsies were obtained from 3rd part of the duodenum Intervention: Biopsies as noted above LEFT SIDED COLONOSCOPY PROCEDURE NOTE Consent: Indications for the procedure and potential complications of bleeding, perforation, reaction to medications and missed diagnosis were discussed with the patient and informed consent was obtained. Instrument: Olympus PCF H 190 L variable stiffness pediatric colonoscope Monitoring: Vital signs and clinical assessment, intermittent blood pressure monitoring, continuous EKG monitoring, Pulse oximetry and Carbon Dioxide monitoring were done throughout the procedure. Procedure: The patient was placed in the left lateral decubitis position and pre-procedure medications were administered. After a digital rectal examination of the ano-rectum, the video colonoscope was inserted into the rectum and advanced through the colon to 50 cms. It was not possible to advance further due to edematous folds with a tight stricture at 50 cms. The colonoscope was slowly withdrawn in a retrograde panoramic fashion and the colon mucosa was carefully examined including a retroflexed view of the rectum. Findings and interventions are described below. Procedure Difficulty: Incomplete colonoscopy due to a tight stricture at 50 cms and sub-optimal prep Findings: Terminal Ileum: Not evaluated Cecum: Not evaluated Ascending Colon: Not evaluated Transverse Colon: Not evaluated Descending Colon: Not evaluated Sigmoid Colon: Edematous folds with a tight stricture with possible mass at 50 cms and unable to advance the pediatric colonoscope through the stricture - multiple biopsies were obtained. Proximal end of the stricture was marked with ebony ink. Rectum: Normal Ano-rectum: Moderate internal hemorrhoids Colon preparation: Fair to poor despite copious irrigation Impression and Post Procedure Diagnosis: Endoscopy Findings: ESOPHAGUS: Large ulcer distal esophagus - ? GERD versus pill esophagitis STOMACH: Gastritis with small amount of residual food (indicating pt likely not followed a clear liquid diet) DUODENUM: Normal - biopsies were obtained from 3rd part of the duodenum to check for celiac sprue Colonoscopy Findings: No polyps were detected. Edematous folds with a tight stricture with possible mass (inflammatory versus neoplastic) at 50 cms Unable to advance the pediatric colonoscope through the stricture - multiple biopsies were obtained. Random biopsies were obtained from the left colon to check for ischemic colitis. Moderate hemorrhoids on retroflexed exam. Plan: Await pathology results. If colon biopsies are benign, pt can be scheduled for repeat colonoscopy with balloon dilation of sigmoid colon stricture. Check CEA to rule out colon malignancy - CEA was normal. Continue Omeprazole 40 mg and Famotidine 20 mg at bedtime for esophageal ulcer. Above findings were reviewed with the patient. BIOPSIES SHOWED: A.? Small bowel, biopsy:? Duodenal mucosa within normal limits. B.? Stomach, antrum, biopsy:? Antral-type and oxyntic mucosa with mild chronic inactive inflammation; no Helicobacter organisms seen. C.? Esophagus, ulcer, biopsy:? Ulcerated squamous mucosa; no atypia or fungi identified. D.? Colon, sigmoid mass at 50 cm, biopsy:? Hyperplastic colonic mucosa with granulation tissue and ulcer bed; negative for malignancy. E.? Colon, left, biopsy:? Colonic mucosa within normal limits.
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
[2022-08-31 09:35] VITALS: BP 129/68; PULSE 96; RESP 16; TEMP 36.8; O2SAT 97
[2022-08-31 09:50] VITALS: BP 132/87; PULSE 95; RESP 16; TEMP 37.2; O2SAT 98
[2022-08-31 10:05] VITALS: BP 132/84; PULSE 86; RESP 15; O2SAT 95
--- NOTE | 2022-08-31 10:23 | PC.NURSE ---
as discussed with md. Antoine patient was a difficult iv stick and took multiple tries. see iv in left foot and as instructed confirmed with Radha Jasso who received clearance from her clinical instructor who ok'd the iv to stay in. discussion to speak with covering teamfor orders to flush iv as per orders from covering md. for patient. patient signed discharge paperwork and received post procedure instruction with understanding as per patient
== END | disposition home or self-care (01) ==
PROVIDERS: Visit Provider Internal Medicine Gastroenterology
PROC: (CPT 45330; principal; 2022-08-31 13:00)
DX: R10.9 Unspecified abdominal pain (principal); K56.699 Other intestinal obstruction unspecified as to partial versus complete obstruction; K64.8 Other hemorrhoids; R19.7 Diarrhea, unspecified; K55.9 Vascular disorder of intestine, unspecified; K29.50 Unspecified chronic gastritis without bleeding; K22.10 Ulcer of esophagus without bleeding; I10 Essential (primary) hypertension; B19.20 Unspecified viral hepatitis C without hepatic coma; F33.1 Major depressive disorder, recurrent, moderate; F43.10 Post-traumatic stress disorder, unspecified; F11.10 Opioid abuse, uncomplicated; F14.10 Cocaine abuse, uncomplicated; N17.9 Acute kidney failure, unspecified; E87.1 Hypo-osmolality and hyponatremia; E87.5 Hyperkalemia; B95.8 Unspecified staphylococcus as the cause of diseases classified elsewhere; Z79.899 Other long term (current) drug therapy; Z88.8 Allergy status to other drugs, medicaments and biological substances; F17.210 Nicotine dependence, cigarettes, uncomplicated
CPT/HCPCS: 45330; 43239; 88305; 88312; 88342

== ENCOUNTER → 2022-09-07 11:47 | Day surgery (SDC) | payer MEDICAID, SELFPAY ==
--- NOTE | ~2022-09-07 | CT_ITS ---
EXAMINATION: CT ABDOMEN AND PELVIS WITH CONTRAST CLINICAL INFORMATION: Sigmoid colon stricture. Follow-up colitis COMPARISON: CT abdomen pelvis 08/16/2022 TECHNIQUE: Multidetector volumetric images were obtained from the superior aspect of the liver through the pubic symphysis following administration 85 mL of Omnipaque 350 intravenous contrast. Sagittal and coronal reformatted images were obtained on the technologist's workstation. Oral contrast: No This CT examination was performed using dose optimization techniques as appropriate, variously including the following: *Automated exposure control *Adjustment of mA and/or kV according to patient size (this includes techniques or standardized protocols for targeted exams where dose is matched to indication/reason for exam; i.e. extremities or head) *Use of iterative reconstruction technique DLP: 411 mGy-cm FINDINGS: LUNG BASES: The visualized lung bases are unremarkable. Tiny round atelectasis is present in the right middle lobe as well as the left lower lobe. There is marked reflux of contrast from the right atria down the entire length of the IVC into the iliofemoral system on the right which may be secondary to elevated right-sided heart pressure. LIVER, GALLBLADDER, AND BILIARY TREE: The liver is normal in size, shape, and attenuation. No focal hepatic lesion or biliary ductal dilatation is present. The gallbladder is unremarkable with no evidence of radiopaque gallstones, gallbladder wall thickening, or obvious pericholecystic inflammatory changes. PANCREAS: Unremarkable. SPLEEN: Unremarkable. ADRENAL GLANDS: Unremarkable. KIDNEYS AND URETERS: The kidneys are normal in size, shape, and attenuation. No hydronephrosis, hydroureter, or calculi seen. No perinephric stranding. BLADDER: Unremarkable. GASTROINTESTINAL TRACT: Again seen is mucosal thickening and inflammatory change in the distal transverse colon, descending colon and proximal sigmoid. Appearances are minimally improved when compared to the 08/16/2022 study. There is an abnormal loop of distal aorta with mucosal thickening and inflammatory change consistent with enteritis which also appears essentially unchanged to minimally worse. The small and large bowel are otherwise unremarkable. The appendix is unremarkable. ABDOMINAL WALL: No significant hernia is appreciated. There is been probable prior hernia repair in the epigastrium. LYMPH NODES: No retroperitoneal lymphadenopathy. VASCULAR: Unremarkable. PELVIC VISCERA: The prostate and seminal vesicles are unremarkable. OSSEOUS STRUCTURES: Degenerative changes are present at L5-S1. No bony destructive lesions seen CT/CT abdomen pelvis w IV con IMPRESSION: 1. Findings of colitis involving the distal transverse colon along with enteritis involving a segment of distal ileum. Findings may be minimally improved when compared to the 08/16/2022 study. 2. Other incidental findings as described above including marked reflux of contrast from the right atria down the IVC into the iliofemoral system which may be secondary to elevated right-sided heart pressure. Fleischner guidelines were followed.
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
[2022-09-07 12:02] VITALS: BMI 20.9
[2022-09-07 12:08] VITALS: BP 128/87; PULSE 89; RESP 18; TEMP 36.6; O2SAT 98
--- NOTE | 2022-09-07 12:28 | MHC.SHP ---
Pre-Procedural Eval Section A Date of Service: 09/07/22 The patient is an INPATIENT: Yes Changes since office visit: Yes New Medical Problems, Yes Changes in Medication and Yes Patient answered all questions; No Cold of Flu in the past 2 weeks The History & Physical has been completed within 30 days and I have reviewed it.: Yes Section B Chief Complaint: abdominal pain,focal ischemia, Allergies: Allergies Allergy/AdvReac Type Severity Reaction Status Date / Time haloperidol [From Haldol] AdvReac see note Verified 08/09/22 20:44 Plan I have reviewed the history and physical and performed a pertinent physical examination on my patient. No changes have occurred unless specified. Time Spent With Patient Time: Total time managing care of this patient today ____ minutes.
[2022-09-07] MEDS: Lactated Ringers 500 ML 20 ML IVCONT (12:45)
--- NOTE | 2022-09-07 13:16 | W.PM.OPN ---
Operative Note Operative Note Date of Service: 09/07/22 Narrative: LEFT SIDED COLONOSCOPY TILL 60 CMS WITH BIOPSIES Pre-op diagnosis: colon stricture Post-op diagnosis:?same Endoscopist:? Santosh Winkler MD Anesthesia:?MAC Consent: Indications for the procedure and potential complications of bleeding, perforation, reaction to medications and missed diagnosis were discussed with the patient and informed consent was obtained. Instrument: Olympus PCF H 190 L variable stiffness pediatric colonoscope Monitoring: Vital signs and clinical assessment, intermittent blood pressure monitoring, continuous EKG monitoring, Pulse oximetry and Carbon Dioxide monitoring were done throughout the procedure. Please see anesthesia flowsheet. Procedure: The patient was placed in the left lateral decubitis position and pre-procedure medications were administered. After a digital rectal examination of the ano-rectum, the video colonoscope was inserted into the rectum and advanced through the colon to ?to 55 cms.? It was not possible to advance further due to edematous folds with ulcerations and a tight stricture at 55 cms. The? colonoscope was slowly withdrawn in a retrograde panoramic fashion and the colon mucosa was carefully examined. Findings and interventions are described below. Procedure Difficulty:?Incomplete colonoscopy due to a tight stricture at 55 cms. Findings: Terminal Ileum: Not evaluated Cecum:? Not evaluated Ascending Colon:?Not evaluated Transverse Colon:??Not evaluated Descending Colon:? Not evaluated Sigmoid Colon:??Edematous folds with a tight stricture and focal circumferential ulcerations at 55 cms and unable to advance the pediatric colonoscope through the stricture - multiple biopsies were obtained. Attempted to pass a CRE colonic balloon through the stricture for balloon dilation. Unable to pass the balloon safely across the stricture due to tortuousity. Rectum:??Normal Ano-rectum:??Moderate internal hemorrhoids Colon preparation: ? Good Impression and Post Procedure Diagnosis: Colonoscopy Findings: No polyps were detected. Moderate diverticulosis seen in the sigmoid colon Moderate hemorrhoids. Plan: Abdominal and Pelvic CT scan with IV and oral contrast. Above findings were reviewed with the patient. ABD CT SCAN SHOWED: 1.? Findings of colitis involving the distal transverse colon along with enteritis involving a segment of distal ileum. Findings may be minimally improved when compared to the 08/16/2022 study. 2.? Other incidental findings as described above including marked reflux of contrast from the right atria down the IVC into the iliofemoral system which may be secondary to elevated right-sided heart pressure.
[2022-09-07 13:22] VITALS: BP 107/64; PULSE 85; RESP 16; TEMP 36.3; O2SAT 98
[2022-09-07 13:37] VITALS: BP 121/71; PULSE 80; RESP 16; TEMP 37.2; O2SAT 100
--- NOTE | 2022-09-07 13:46 | PC.NURSE ---
Addendum entered by Dean Jane RN 09/07/22 13:55: patient discharged from pacu to m3 report provided to nurse Original Note: spoke with md. Winkler/ct/psych [facility] and confirmed that patient ok to return to psych and maintain iv for ct scan planned today.
[2022-09-07] MEDS: Diatrizoate Meglumine, Sodium 30 ML SOLUTION PO (17:06)
[2022-09-07] MEDS: iohexoL 350 MG/ML 100 ML INFUS..BTL IV (17:06)
== END | disposition home or self-care (01) ==
PROVIDERS: Visit Provider Internal Medicine Gastroenterology
PROC: 0DJD8ZZ Inspection of Lower Intestinal Tract, Via Natural or Artificial Opening Endoscopic (ICD-10-PCS; CPT 45330; principal; 2022-09-07 13:10)
DX: K56.699 Other intestinal obstruction unspecified as to partial versus complete obstruction (principal); K55.031 Focal (segmental) acute (reversible) ischemia of large intestine; K63.89 Other specified diseases of intestine; K59.09 Other constipation; K21.9 Gastro-esophageal reflux disease without esophagitis; I10 Essential (primary) hypertension; G93.41 Metabolic encephalopathy; F33.3 Major depressive disorder, recurrent, severe with psychotic symptoms; E83.39 Other disorders of phosphorus metabolism; F19.21 Other psychoactive substance dependence, in remission; Z79.899 Other long term (current) drug therapy; Z88.8 Allergy status to other drugs, medicaments and biological substances; Z87.828 Personal history of other (healed) physical injury and trauma; Z87.891 Personal history of nicotine dependence
CPT/HCPCS: 45340; 45331; 74177; 88305; C1726

== ENCOUNTER 2022-09-08 16:10 | Inpatient (IN) | payer OTHER, MEDICAID, SELFPAY ==
--- NOTE | ~2022-09-08 | CT_ITS ---
EXAMINATION: CT ABDOMEN AND PELVIS WITHOUT CONTRAST CLINICAL INFORMATION: Follow-up abdominal pain; inflammatory bowel disease exacerbation. COMPARISON: CT abdomen and pelvis dated 09/07/2022. TECHNIQUE: Multidetector volumetric imaging was performed from the superior aspect of the liver through the pubic symphysis. Sagittal and coronal reformatted images were obtained on the technologist's workstation. This CT examination was performed using dose optimization techniques as appropriate, variously including the following: *Automated exposure control *Adjustment of mA and/or kV according to patient size (this includes techniques or standardized protocols for targeted exams where dose is matched to indication/reason for exam; i.e. extremities or head) *Use of iterative reconstruction technique DLP: 386 mGy-cm FINDINGS: LUNG BASES: There is mild linear scar/subsegmental atelectasis seen within the medial segment of the right middle lobe, the lingula and at the posterolateral left base. LIVER, GALLBLADDER, AND BILIARY TREE: The liver is normal in size, shape, and attenuation. No focal hepatic lesion or biliary ductal dilatation is present. The gallbladder is unremarkable with no evidence of radiopaque gallstones, gallbladder wall thickening, or obvious pericholecystic inflammatory changes. PANCREAS: Unremarkable. SPLEEN: Unremarkable. ADRENAL GLANDS: Unremarkable. KIDNEYS AND URETERS: The kidneys are normal in size, shape, and attenuation. Multiple bilateral renal calculi are seen, the largest on the right situated at the mid aspect posteriorly measuring 3 mm, and on the left at the upper pole measuring 4 mm (3:29 and 24). No perinephric stranding. BLADDER: Unremarkable. GASTROINTESTINAL TRACT: There is mild wall thickening of the descending and proximal sigmoid colon segments, with mild adjacent mesenteric fat stranding. The descending colon appears somewhat featureless, with a lead pipe appearance (5:39). No significant diverticulosis is seen. There is a large colonic stool burden, suggesting possible obstruction. The appendix is normal. ABDOMINAL WALL: No significant hernia is appreciated. LYMPH NODES: Normal. VASCULAR: Unremarkable. PELVIC VISCERA: The prostate and seminal vesicles are unremarkable. OSSEOUS STRUCTURES: There is marked degenerative disc disease at L5-S1. No acute or aggressive osseous abnormality is seen. CT/CT abdomen pelvis wo IV con IMPRESSION: 1. There is wall thickening of the descending and proximal sigmoid colon segments. The descending colon appears somewhat featureless. There is adjacent mesenteric fat stranding. These findings are consistent with the provided history of inflammatory bowel disease. This appearance is somewhat improved from 09/07/2022. There is constipation. No obstruction, free intraperitoneal air or abscess is seen. 2. Multiple nonobstructing bilateral renal calculi are seen. 3. There is marked degenerative disc disease at L5-S1. Fleischner guidelines were followed.
--- NOTE | ~2022-09-08 | CT_ITS ---
EXAMINATION: CT HEAD WITHOUT CONTRAST CLINICAL INFORMATION: Encephalopathy. COMPARISON: Head CT dated 08/09/2022. TECHNIQUE: Contiguous axial imaging was performed from the skullbase to vertex without intravenous administration of contrast. This CT examination was performed using dose optimization techniques as appropriate, variously including the following: *Automated exposure control *Adjustment of mA and/or kV according to patient size (this includes techniques or standardized protocols for targeted exams where dose is matched to indication/reason for exam; i.e. extremities or head) *Use of iterative reconstruction technique DLP: 772 mGy-cm. FINDINGS: There is no evidence of acute intracranial hemorrhage or territorial infarction. No abnormal mass effect or midline shift is seen. No extra-axial fluid collections are identified. Generalized parenchymal volume loss again noted for patient age with ex vacuo dilatation of the ventricles. No evidence of hydrocephalus. Nonspecific mild scattered white matter low-density changes again noted. The osseous structures and soft tissues are normal. The mastoid air cells and visualized portions of the paranasal sinuses are well aerated. CT/CT head/brain wo IV con IMPRESSION: No acute intracranial hemorrhage or territorial infarction.
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
[2022-09-08 16:00] VITALS: BP 132/79; PULSE 89; RESP 18; TEMP 36.5; O2SAT 100
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
--- NOTE | 2022-09-08 17:59 | HE.PHANOTE ---
Pt transferred from M3; meds carried over per consult; methadone verified
[2022-09-08] MEDS: oxyCODONE HCl Immed Release 5 MG TABLET PO (18:35)
[2022-09-08] MEDS: methylPREDNISolone Sod Succ 40 MG/ML VIAL 20 MG IVPUSH ×2 (18:45→21:49)
[2022-09-08 18:47] LABS: VBG Base Excess -2.8 mmol/L; VBG HCO3 20 mmol/L (22-26); VBG pCO2 27 mmHg; VBG pH 7.47 (7.32-7.43); VBG pO2 190 mmHg
[2022-09-08 18:48] LABS: Venous Blood Gas Refer to POC result
[2022-09-08] MEDS: 0.9 % Sodium Chloride 1,000 ML 100 ML IVCONT (18:49)
[2022-09-08] MEDS: Enoxaparin Sodium 40 MG/0.4 ML SYRINGE SUBCUT (18:50)
[2022-09-08 19:18] VITALS: BP 118/75; PULSE 85; RESP 15; TEMP 36.6; O2SAT 94
[2022-09-08] MEDS: Famotidine 20 MG TABLET PO (21:28)
[2022-09-08] MEDS: Morphine Sulfate 4 MG/ML CARTRIDGE 2 MG IVPUSH (21:29)
[2022-09-08] MEDS: traZODone HCL 50 MG TABLET PO (21:35)
[2022-09-08 23:23] VITALS: BP 119/74; PULSE 85; RESP 14; TEMP 36.9; O2SAT 94
[2022-09-09 03:14] VITALS: BP 145/90; PULSE 79; RESP 15; TEMP 36.7; O2SAT 95
[2022-09-09] MEDS: oxyCODONE HCl Immed Release 5 MG TABLET PO ×3 (03:28→16:42)
[2022-09-09] MEDS: 0.9 % Sodium Chloride 1,000 ML 100 ML IVCONT ×2 (03:28→16:37)
[2022-09-09] MEDS: Morphine Sulfate 4 MG/ML CARTRIDGE 2 MG IVPUSH ×4 (06:10→19:49)
[2022-09-09] MEDS: Omeprazole 40 MG CAPSULE.DR PO (06:11)
[2022-09-09 06:50] LABS: MANUAL DIFF FLAG NO
[2022-09-09 06:54] LABS: Basophils Absolute Auto 0.1 X10*3/uL (0.0-0.2); Basophils Percent Auto 1.1 % (0-2); Eosinophils Percent Auto 0.5 % (0-4); Hematocrit 27.6 % (42.0-52.0); Hemoglobin 8.9 g/dl (14.0-18.0); Imm Gran Pct Auto 1.8 % (0.0-0.4); Lymphocytes Absolute Auto 1.7 X10*3/uL (1.2-4.9); Lymphocytes Percent Auto 29.6 % (20-40); Mean Corpuscular HGB Conc 32.2 g/dl (31.0-36.0); Mean Corpuscular Volume 89.9 fL (80.0-98.0); Mean Platelet Volume 8.2 fL (9.4-12.4); Monocytes Percent Auto 18.2 % (2-11); Neutrophils Absolute Auto 2.8 x10*3/uL (2.0-8.3); Neutrophils Percent Auto 48.8 % (45-73); Platelet Count 510 X10*3/uL (160-400); Red Blood Count 3.07 X10*6/uL (4.60-5.80); Red Cell Distribution Width 13.8 % (11.0-16.0); White Blood Count 5.7 X10*3/uL (4.8-10.8)
[2022-09-09 07:14] LABS: Anion Gap 10 (12-20); Blood Urea Nitrogen 10 mg/dL (9-16); Calcium 7.8 mg/dL (8.4-10.2); Carbon Dioxide 28 mmol/L (22-29); Chloride 104 mmol/L (96-108); Estimated Glomerular Filt Rate > 60; Glucose Random 104 mg/dL (60-115); Potassium 4.4 mmol/L (3.3-5.1); Sodium 138 mmol/L (135-145)
[2022-09-09 07:53] VITALS: BP 135/81; PULSE 76; RESP 20; TEMP 37.7; O2SAT 97
[2022-09-09] MEDS: methylPREDNISolone Sod Succ 40 MG/ML VIAL 20 MG IVPUSH ×2 (08:43→16:41)
[2022-09-09] MEDS: methADONE HCl 20 MG/2 ML ORAL.CONC 60 MG PO (08:44)
[2022-09-09] MEDS: Dicyclomine HCl 10 MG CAPSULE 20 MG PO ×3 (08:46→16:41)
[2022-09-09] MEDS: buPROPion HCl XL 300 MG TAB.ER.24H PO (08:46)
--- NOTE | 2022-09-09 09:25 | MHC.CM.PN ---
Pt admitted with intractable abdominal pain/crohns. Pt was living with a friend, self-care. Pts friend, will transport. No HCP on file, declined at this time. PCP: Clotilde Tracey
[2022-09-09] MEDS: ondansetron HCL 4 MG/2 ML VIAL IVPUSH (11:00)
[2022-09-09 11:13] VITALS: BP 140/95; PULSE 86; RESP 20; TEMP 37.3; O2SAT 94
[2022-09-09 11:21] VITALS: BMI 20.9
--- NOTE | 2022-09-09 11:29 | MHC.CLN ---
RE: CONSULT PT IS MODERATELY MALNOURISHED PT WITH MILDLY DEPLETED BODY FAT WITH 21% SIGNIFICANT WT LOSS X 1 YEAR AND CHRONIC POOR PO INTAKE R/T INCREASE IN DEPRESSION R/T PASSING AND ABDOMINAL PAIN R/T COLITIS PT REPORTS HE IS CURRENTLY ONLY DRINKING ENSURE X2 PER DAY DIET RX: REGULAR-APPROPRIATE SPOKE WITH PT AND ENCOURAGED INCREASE IN PO INTAKE TO MAINTAIN WT PT RECEPTIVE TO DRINKING ONLY 2 ENSURE SUPPLEMENTS PER DAY. ENSURE PROVIDES 700KCALS (35% EST KCALS NEEDS), 40G PROTEIN (49% EST PROTEIN NEEDS) PT REPORTED HE LIKES ICE CREAM, JELLO, BROTH, CRACKERS, TEA, TOAST PT C/O ABD PAIN WITH EATING GSR/KITCHEN AWARE OF FOOD PREFERENCES IF NO IMPROVEMENT IN PO INTAKE X2 DAYS; RECOMMEND PPN FOR NUTRITION SUPPORT WEEKLY WEIGHTS FOLLOWING WITH TEAM SEE ALSO FULL CLINICAL NUTRITION ASSESSMENT
--- NOTE | 2022-09-09 13:51 | P.PNGS_ITS ---
Subjective Subjective Date of Service: 09/09/22 Interval history: He says he was moved to the med surg unit last night Has episodes of left-sided abdominal pain Currently says he is okay Tolerating liquids Ensure He states that his diarrhea has improved - still watery but only 1 BM today Passing flatus No vomiting Physical Exam Vital Signs: Vital Signs: Last Vital Signs Temp 99.2 F 09/09/22 11:13 Pulse 86 09/09/22 11:13 Resp 20 09/09/22 11:13 BP 140/95 H 09/09/22 11:13 Pulse Ox 94 09/09/22 11:13 O2 Del Method Room Air 09/09/22 11:13 BMI result Body Mass Index 20.9 Const: General: comfortable and no acute distress Resp: Effort & Inspection: normal respiratory effort Cardio: Rate: regular rate GI: Other: Nondistended, some tenderness on left side Palpation (GI): Soft to palpation, not firm and no guarding Objective Data Active Medications Acetaminophen (Acetaminophen 325 Mg Tablet) 650 mg PO Q6H PRN PRN Reason: Pain, Mild (Pain Scale 1-3) Al Hydroxide/Mg Hydroxide (Magnesium Hydrox/Alum Hydrox 30 Ml Oral.Susp) 30 ml PO Q6H PRN PRN Reason: Heartburn/Nausea Bupropion HCl (Bupropion Hcl Xl 300 Mg Tab.Er.24h) 300 mg PO DAILY [facility] Last Admin: 09/09/22 08:46 Dose: 300 mg Documented By: NATANAEL Calcium Carbonate (Calcium Carbonate 500 Mg Tablet) 500 mg PO BID [facility] Last Admin: 09/09/22 08:51 Dose: Not Given Documented By: NATANAEL Non-Admin Reason: Patient Refused Dicyclomine HCl (Dicyclomine Hcl 10 Mg Capsule) 20 mg PO TIDAC [facility] Last Admin: 09/09/22 13:11 Dose: 20 mg Documented By: DOBROB Docusate Sodium (Docusate Sodium 100 Mg Capsule) 100 mg PO DAILY PRN PRN Reason: Constipation Enoxaparin Sodium (Enoxaparin Sodium 40 Mg/0.4 Ml Syringe) 40 mg SUBCUT Q24H [facility] Last Admin: 09/08/22 18:50 Dose: 40 mg Documented By: MARVA Famotidine (Famotidine 20 Mg Tablet) 20 mg PO BEDTIME [facility] Last Admin: 09/08/22 21:28 Dose: 20 mg Documented By: SERG Sodium Chloride (Ns) 1,000 mls @ 100 mls/hr IVCONT .Q10H [facility] Last Admin: 09/09/22 03:28 Dose: 100 mls/hr Documented By: SERG Loperamide HCl (Loperamide Hcl 2 Mg Capsule) 2 mg PO Q4H PRN PRN Reason: diarrhea Methadone HCl (Methadone Hcl 20 Mg/2 Ml Oral.Conc) 60 mg PO DAILY [facility] Last Admin: 09/09/22 08:44 Dose: 60 mg Documented By: NATANAEL Methylprednisolone Sodium Succinate (Methylprednisolone Sod Succ 40 Mg/Ml Vial) 20 mg IVPUSH Q8H [facility] Last Admin: 09/09/22 08:43 Dose: 20 mg Documented By: NATANAEL Morphine Sulfate (Morphine Sulfate 4 Mg/Ml Cartridge) 2 mg IVPUSH Q4H PRN; Protocol PRN Reason: Pain, Severe (Pain Scale 7-10) Last Admin: 09/09/22 10:28 Dose: 2 mg Documented By: REBECCA Nicotine (Nicotine 14 Mg Patch.Td24) 14 mg TRANSDERMA DAILY [facility] Last Admin: 09/09/22 08:50 Dose: Not Given Documented By: NATANAEL Non-Admin Reason: Patient Refused Nicotine Polacrilex (Nicotine Polacrilex 2 Mg Gum) 4 mg BUCCAL Q2H PRN PRN Reason: Nicotine Cravings Omeprazole (Omeprazole 40 Mg Capsule.Dr) 40 mg PO DAILY@0630 [facility] Last Admin: 09/09/22 06:11 Dose: 40 mg Documented By: SERG Ondansetron HCl (Ondansetron Hcl 4 Mg/2 Ml Vial) 4 mg IVPUSH Q8H PRN PRN Reason: Nausea and Vomiting Oxycodone HCl (Oxycodone Hcl Immed Release 5 Mg Tablet) 5 mg PO Q6H PRN PRN Reason: Pain, Moderate(Pain Scale 4-6) Last Admin: 09/09/22 10:29 Dose: 5 mg Documented By: REBECCA Pharmacy Consult (Consult Rx Perform Med Rec) 1 each MISCELLANE ONCE PRN PRN Reason: Consult order Thiamine HCl (Thiamine Hcl 100 Mg Tablet) 100 mg PO DAILY [facility] Last Admin: 09/09/22 08:49 Dose: Not Given Documented By: NATANAEL Non-Admin Reason: Patient Refused Trazodone HCl (Trazodone Hcl 50 Mg Tablet) 50 mg PO BEDTIME MRX1 PRN PRN Reason: Insomnia Last Admin: 09/08/22 21:35 Dose: 50 mg Documented By: SERG Labs 09/09/22 06:31 09/09/22 06:31 Labs: Laboratory Results - last 24 hr 09/08/22 09/09/22 09/09/22 18:31 06:31 06:31 MCV 89.9 MCH 29.0 MCHC 32.2 RDW 13.8 Plt Count 510 H MPV 8.2 L Immature Gran % (Auto) 1.8 H Neut % (Auto) 48.8 Lymph % (Auto) 29.6 [place] % (Auto) 18.2 H Eos % (Auto) 0.5 Baso % (Auto) 1.1 Lymph # (Auto) 1.7 [place] # (Auto) 1.0 Eos # (Auto) 0.0 Baso # (Auto) 0.1 Abs Immat Gran (auto) 0.10 H Absolute Neuts (auto) 2.8 Absolute Nucleated RBC 0.000 Nucleated RBC % (auto) 0.0 VBG pH 7.47 H VBG pCO2 27 VBG pO2 190 VBG HCO3 20 L VBG O2 Saturation 99.0 VBG Base Excess -2.8 Anion Gap 10 L Estim Creat Clear Calc TNP Estimated GFR > 60 Random Glucose 104 Calcium 7.8 L Procedures Date of Service Date of Service: 09/09/22 Progress Note: A&P Assessment and plan (1) Colitis: Status: Acute Assessment and Plan: CT scan showing being of distal transverse colon and terminal ileum No evidence of any obstruction Flex sig showed question of a narrowing in the sigmoid Passing flatus, has diarrhea but this is better Exam benign Patient looks well, not toxic looking GI following - consider salicylates? Will follow Time Spent With Patient Time: Total time managing care of this patient today ____ minutes. Quality Stroke Does the patient have a stroke diagnosis?: No VTE Prior VTE?: No VTE Risk Level:: Medical - moderate - high VTE Device Contraindication: Treatment Not Indicated VTE Drug Contraindication: N/A - Med Ordered
--- NOTE | 2022-09-09 14:06 | P.PNIM_ITS ---
Subjective Subjective Date of Service: 09/09/22 Interval History: Seen and evaluated this morning still complaining of abd pain and SI reporting diarrhea No fever or chills No other overnight events Review of Systems Review of Systems: Yes all other systems are reviewed and are negative Physical Exam Vital Signs: Vital Signs: Last Vital Signs Temp 99.2 F 09/09/22 11:13 Pulse 86 09/09/22 11:13 Resp 20 09/09/22 11:13 BP 140/95 H 09/09/22 11:13 Pulse Ox 94 09/09/22 11:13 O2 Del Method Room Air 09/09/22 11:13 BMI result Body Mass Index 20.9 Const: Other: Constitutional : Awake, interactive, not in distress Neck : Normal inspection, Supple Cardiovascular : RRR, no JVP, no lower extremity edema Respiratory : good bilateral air entry, no crackles, wheezes or rhonchi Gastrointestinal: soft, lax, Normal bowel sounds, generalized tenderness with palpation, no surgical signs Skin : Warm, Dry Neurological : Alert & oriented x3, No focal deficit Objective Data Active Medications Acetaminophen (Acetaminophen 325 Mg Tablet) 650 mg PO Q6H PRN PRN Reason: Pain, Mild (Pain Scale 1-3) Al Hydroxide/Mg Hydroxide (Magnesium Hydrox/Alum Hydrox 30 Ml Oral.Susp) 30 ml PO Q6H PRN PRN Reason: Heartburn/Nausea Bupropion HCl (Bupropion Hcl Xl 300 Mg Tab.Er.24h) 300 mg PO DAILY [facility] Last Admin: 09/09/22 08:46 Dose: 300 mg Documented By: NATANAEL Calcium Carbonate (Calcium Carbonate 500 Mg Tablet) 500 mg PO BID [facility] Last Admin: 09/09/22 08:51 Dose: Not Given Documented By: NATANAEL Non-Admin Reason: Patient Refused Dicyclomine HCl (Dicyclomine Hcl 10 Mg Capsule) 20 mg PO TIDAC [facility] Last Admin: 09/09/22 13:11 Dose: 20 mg Documented By: DOBROB Docusate Sodium (Docusate Sodium 100 Mg Capsule) 100 mg PO DAILY PRN PRN Reason: Constipation Enoxaparin Sodium (Enoxaparin Sodium 40 Mg/0.4 Ml Syringe) 40 mg SUBCUT Q24H [facility] Last Admin: 09/08/22 18:50 Dose: 40 mg Documented By: MARVA Famotidine (Famotidine 20 Mg Tablet) 20 mg PO BEDTIME [facility] Last Admin: 09/08/22 21:28 Dose: 20 mg Documented By: SERG Sodium Chloride (Ns) 1,000 mls @ 100 mls/hr IVCONT .Q10H [facility] Last Admin: 09/09/22 03:28 Dose: 100 mls/hr Documented By: SERG Loperamide HCl (Loperamide Hcl 2 Mg Capsule) 2 mg PO Q4H PRN PRN Reason: diarrhea Methadone HCl (Methadone Hcl 20 Mg/2 Ml Oral.Conc) 60 mg PO DAILY [facility] Last Admin: 09/09/22 08:44 Dose: 60 mg Documented By: NATANAEL Methylprednisolone Sodium Succinate (Methylprednisolone Sod Succ 40 Mg/Ml Vial) 20 mg IVPUSH Q8H [facility] Last Admin: 09/09/22 08:43 Dose: 20 mg Documented By: NATANAEL Morphine Sulfate (Morphine Sulfate 4 Mg/Ml Cartridge) 2 mg IVPUSH Q4H PRN; Protocol PRN Reason: Pain, Severe (Pain Scale 7-10) Last Admin: 09/09/22 10:28 Dose: 2 mg Documented By: REBECCA Nicotine (Nicotine 14 Mg Patch.Td24) 14 mg TRANSDERMA DAILY [facility] Last Admin: 09/09/22 08:50 Dose: Not Given Documented By: NATANAEL Non-Admin Reason: Patient Refused Nicotine Polacrilex (Nicotine Polacrilex 2 Mg Gum) 4 mg BUCCAL Q2H PRN PRN Reason: Nicotine Cravings Omeprazole (Omeprazole 40 Mg Capsule.Dr) 40 mg PO DAILY@0630 [facility] Last Admin: 09/09/22 06:11 Dose: 40 mg Documented By: SERG Ondansetron HCl (Ondansetron Hcl 4 Mg/2 Ml Vial) 4 mg IVPUSH Q8H PRN PRN Reason: Nausea and Vomiting Oxycodone HCl (Oxycodone Hcl Immed Release 5 Mg Tablet) 5 mg PO Q6H PRN PRN Reason: Pain, Moderate(Pain Scale 4-6) Last Admin: 09/09/22 10:29 Dose: 5 mg Documented By: REBECCA Pharmacy Consult (Consult Rx Perform Med Rec) 1 each MISCELLANE ONCE PRN PRN Reason: Consult order Thiamine HCl (Thiamine Hcl 100 Mg Tablet) 100 mg PO DAILY [facility] Last Admin: 09/09/22 08:49 Dose: Not Given Documented By: NATANAEL Non-Admin Reason: Patient Refused Trazodone HCl (Trazodone Hcl 50 Mg Tablet) 50 mg PO BEDTIME MRX1 PRN PRN Reason: Insomnia Last Admin: 09/08/22 21:35 Dose: 50 mg Documented By: ESRG Labs 09/09/22 06:31 09/09/22 06:31 Labs: Laboratory Results - last 24 hr 09/08/22 09/09/22 09/09/22 18:31 06:31 06:31 MCV 89.9 MCH 29.0 MCHC 32.2 RDW 13.8 Plt Count 510 H MPV 8.2 L Immature Gran % (Auto) 1.8 H Neut % (Auto) 48.8 Lymph % (Auto) 29.6 [place] % (Auto) 18.2 H Eos % (Auto) 0.5 Baso % (Auto) 1.1 Lymph # (Auto) 1.7 [place] # (Auto) 1.0 Eos # (Auto) 0.0 Baso # (Auto) 0.1 Abs Immat Gran (auto) 0.10 H Absolute Neuts (auto) 2.8 Absolute Nucleated RBC 0.000 Nucleated RBC % (auto) 0.0 VBG pH 7.47 H VBG pCO2 27 VBG pO2 190 VBG HCO3 20 L VBG O2 Saturation 99.0 VBG Base Excess -2.8 Anion Gap 10 L Estim Creat Clear Calc TNP Estimated GFR > 60 Random Glucose 104 Calcium 7.8 L Assessment and Plan (1) Colitis: Status: Acute (2) Intractable abdominal pain: Status: Acute Plan 47-year-old patient with underlying history of hypertension, IV drug abuse, cocaine abuser, hepatitis-C, depression, PTSD, depression with SI and suicidal attempt, anxiety, acid reflux admitted to medicine from adult psychiatry for further management of intractable abdominal pain with poor p.o. intake. #Intractable abdominal pain likely related to IBD vs ischemic colitis CT abdomen/pelvis with IV contrast showing colitis of the distal transverse colo n along with enteritis involving a segment of the distal ileum minimally improved compared to prior studies Stricture noted on colonoscopy not noted on CT. No surgery indicated per GI repeat GI panel and CDiff PCR IV methylprednisolone 20 mg t.i.d. per GI pain management using pain scale Regular diet with Ensure, encourage PO intake as tolerated Continue IVF No leukocytosis, VSS. No sepsis. GI input appreciated surgery input appreciated, no surgery needed #Acute encephalopathy toxic metabolic suspect medication induced/polypharmacy improved Negative head ct Psychiatry consult Hold sedating medications- seroquel, clonazepam, cyclobenzaprine, gabapentin, hydroxyzine, clonidine (monitor for rebound htn). restart as tolerated. Continue methadone and pain medications as above #Anorexia due to above mild dehydration Regular diet as tolerated as above #Moderate malnutrition with protein deficiency 50 pound weight loss since passing of in may Albumin 2.4 Add ensure Nutrition consult # Elevated right heart pressure noted on abd CT Echocardiogram showing normal EF w inf segment akinetic #MDD with passive SI Hold sedating medications as above. Can continue trazodone prn bedtime Sitter given SI Psychiatry consult Care team consult once medically cleared #Polysubstance abuse with opiate dependence continue methadone #Cigarette smoker patches and gum prn for nrt cessation counseling DVT prophylaxis- lovenox Full code Patient requires inpatient stay overnight for management of intractable abdominal pain with poor p.o. intake and acute encephalopathy requiring expert consultation, IV steroids, and pain management Time Spent With Patient Time: Total time managing care of this patient today ____ minutes. Quality Stroke Does the patient have a stroke diagnosis?: No VTE Prior VTE?: No VTE Risk Level:: Medical - moderate - high VTE Device Contraindication: Treatment Not Indicated VTE Drug Contraindication: N/A - Med Ordered
[2022-09-09 15:29] VITALS: BP 150/80; PULSE 83; RESP 20; TEMP 36.8; O2SAT 94
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
[2022-09-09] MEDS: Enoxaparin Sodium 40 MG/0.4 ML SYRINGE SUBCUT (16:43)
--- NOTE | 2022-09-09 18:06 | PC.NURSE ---
Patient continues to have abdominal pain medicated with prn oxycodone and IV morphine with good effect. c/o nausea in afternoon prn zofran given with effect. Accepts fluids although not able to tolerate solid foods well. Loose stool once earlier this am no further episode during shift. OOB with supervision to bathroom voiding without difficulty. IV fluids infusing per order. 1:1 sitter at bedside during shift. Will continue to monitor and report changes
[2022-09-09 19:26] VITALS: BP 180/80; PULSE 77; RESP 20; TEMP 36.6; O2SAT 99
[2022-09-09] MEDS: traZODone HCL 100 MG TABLET 200 MG PO (20:04)
[2022-09-09] MEDS: Famotidine 20 MG TABLET PO (20:04)
[2022-09-09] MEDS: Gabapentin 100 MG CAPSULE PO (20:04)
[2022-09-09] MEDS: QUEtiapine Fumarate 50 MG TABLET PO (20:04)
[2022-09-10] MEDS: methylPREDNISolone Sod Succ 40 MG/ML VIAL 20 MG IVPUSH ×3 (00:43→16:15)
[2022-09-10] MEDS: 0.9 % Sodium Chloride 1,000 ML 100 ML IVCONT (00:43)
[2022-09-10 04:00] VITALS: BP 162/76; PULSE 88; RESP 18; TEMP 36.6; O2SAT 97
[2022-09-10] MEDS: Omeprazole 40 MG CAPSULE.DR PO (06:08)
[2022-09-10] MEDS: Morphine Sulfate 4 MG/ML CARTRIDGE 2 MG IVPUSH ×3 (06:14→14:36)
[2022-09-10 07:48] VITALS: BP 138/94; PULSE 84; RESP 20; TEMP 36.8; O2SAT 96
[2022-09-10] MEDS: oxyCODONE HCl Immed Release 5 MG TABLET PO ×2 (07:53→21:41)
[2022-09-10] MEDS: Dicyclomine HCl 10 MG CAPSULE 20 MG PO ×3 (07:54→16:15)
[2022-09-10] MEDS: Gabapentin 100 MG CAPSULE PO ×2 (07:54→21:42)
[2022-09-10] MEDS: buPROPion HCl XL 300 MG TAB.ER.24H PO (07:55)
--- NOTE | 2022-09-10 08:15 | P.PNGS_ITS ---
Subjective Subjective Date of Service: 09/13/22 Interval history: As per nurse, no events overnight Diarrhea seems better Physical Exam Vital Signs: Vital Signs: Last Vital Signs Temp 98.3 F 09/10/22 07:48 Pulse 84 09/10/22 07:48 Resp 20 09/10/22 07:48 BP 138/94 H 09/10/22 07:48 Pulse Ox 96 09/10/22 07:48 O2 Del Method Room Air 09/10/22 07:48 BMI result Body Mass Index 20.9 Const: General: comfortable and no acute distress GI: Palpation (GI): Soft to palpation, not firm and Tenderness to palpation present (GI) (Mild tenderness left side) Objective Data Active Medications Acetaminophen (Acetaminophen 325 Mg Tablet) 650 mg PO Q6H PRN PRN Reason: Pain, Mild (Pain Scale 1-3) Al Hydroxide/Mg Hydroxide (Magnesium Hydrox/Alum Hydrox 30 Ml Oral.Susp) 30 ml PO Q6H PRN PRN Reason: Heartburn/Nausea Bupropion HCl (Bupropion Hcl Xl 300 Mg Tab.Er.24h) 300 mg PO DAILY [facility] Last Admin: 09/10/22 07:55 Dose: 300 mg Documented By: DAMIEN Calcium Carbonate (Calcium Carbonate 500 Mg Tablet) 500 mg PO BID [facility] Last Admin: 09/10/22 08:03 Dose: Not Given Documented By: DAMIEN Non-Admin Reason: Patient Refused Dicyclomine HCl (Dicyclomine Hcl 10 Mg Capsule) 20 mg PO TIDAC [facility] Last Admin: 09/10/22 07:54 Dose: 20 mg Documented By: DAMIEN Docusate Sodium (Docusate Sodium 100 Mg Capsule) 100 mg PO DAILY PRN PRN Reason: Constipation Enoxaparin Sodium (Enoxaparin Sodium 40 Mg/0.4 Ml Syringe) 40 mg SUBCUT Q24H [facility] Last Admin: 09/09/22 16:43 Dose: 40 mg Documented By: NATANAEL Famotidine (Famotidine 20 Mg Tablet) 20 mg PO BEDTIME [facility] Last Admin: 09/09/22 20:04 Dose: 20 mg Documented By: DOBROB Gabapentin (Gabapentin 100 Mg Capsule) 100 mg PO BID [facility] Last Admin: 09/10/22 07:54 Dose: 100 mg Documented By: DAMIEN Sodium Chloride (Ns) 1,000 mls @ 100 mls/hr IVCONT .Q10H [facility] Last Admin: 09/10/22 00:43 Dose: 100 mls/hr Documented By: ROJAS Loperamide HCl (Loperamide Hcl 2 Mg Capsule) 2 mg PO Q4H PRN PRN Reason: diarrhea Methadone HCl (Methadone Hcl 20 Mg/2 Ml Oral.Conc) 60 mg PO DAILY [facility] Last Admin: 09/09/22 08:44 Dose: 60 mg Documented By: NATANAEL Methylprednisolone Sodium Succinate (Methylprednisolone Sod Succ 40 Mg/Ml Vial) 20 mg IVPUSH Q8H [facility] Last Admin: 09/10/22 07:54 Dose: 20 mg Documented By: DAMIEN Morphine Sulfate (Morphine Sulfate 4 Mg/Ml Cartridge) 2 mg IVPUSH Q4H PRN; Protocol PRN Reason: Pain, Severe (Pain Scale 7-10) Last Admin: 09/10/22 06:14 Dose: 2 mg Documented By: ROJAS Nicotine (Nicotine 14 Mg Patch.Td24) 14 mg TRANSDERMA DAILY [facility] Last Admin: 09/10/22 08:03 Dose: Not Given Documented By: DAMIEN Non-Admin Reason: Patient Refused Nicotine Polacrilex (Nicotine Polacrilex 2 Mg Gum) 4 mg BUCCAL Q2H PRN PRN Reason: Nicotine Cravings Omeprazole (Omeprazole 40 Mg Capsule.Dr) 40 mg PO DAILY@0630 [facility] Last Admin: 09/10/22 06:08 Dose: 40 mg Documented By: ROJAS Ondansetron HCl (Ondansetron Hcl 4 Mg/2 Ml Vial) 4 mg IVPUSH Q8H PRN PRN Reason: Nausea and Vomiting Last Admin: 09/09/22 11:00 Dose: 4 mg Documented By: REBECCA Oxycodone HCl (Oxycodone Hcl Immed Release 5 Mg Tablet) 5 mg PO Q6H PRN PRN Reason: Pain, Moderate(Pain Scale 4-6) Last Admin: 09/10/22 07:53 Dose: 5 mg Documented By: DAMIEN Pharmacy Consult (Consult Rx Perform Med Rec) 1 each MISCELLANE ONCE PRN PRN Reason: Consult order Quetiapine Fumarate (Quetiapine Fumarate 50 Mg Tablet) 50 mg PO Q4H PRN PRN Reason: AH/agitation Last Admin: 09/09/22 20:04 Dose: 50 mg Documented By: REBECCA Thiamine HCl (Thiamine Hcl 100 Mg Tablet) 100 mg PO DAILY [facility] Last Admin: 09/10/22 08:04 Dose: Not Given Documented By: DAMIEN Non-Admin Reason: Patient Refused Trazodone HCl (Trazodone Hcl 50 Mg Tablet) 50 mg PO BEDTIME MRX1 PRN PRN Reason: Insomnia Last Admin: 09/08/22 21:35 Dose: 50 mg Documented By: SERG Trazodone HCl (Trazodone Hcl 100 Mg Tablet) 200 mg PO BEDTIME [facility] Last Admin: 09/09/22 20:04 Dose: 200 mg Documented By: REBECCA Labs 09/09/22 06:31 09/09/22 06:31 Microbiology Microbiology Results: Microbiology 09/08/22 18:28 Blood Culture - Preliminary Blood - Venous No growth after 24 hours. 09/08/22 18:28 Blood Culture - Preliminary Blood - Venous No growth after 24 hours. Procedures Date of Service Date of Service: 09/13/22 Progress Note: A&P Assessment and plan (1) Colitis: Status: Acute Assessment and Plan: Etiology unknown Clinical obstructed Exam benign Diet as tolerated GI follow-up -consider salicylates? Time Spent With Patient Time: Total time managing care of this patient today ____ minutes. Quality Stroke Does the patient have a stroke diagnosis?: No VTE Prior VTE?: No VTE Risk Level:: Medical - moderate - high VTE Device Contraindication: Treatment Not Indicated VTE Drug Contraindication: N/A - Med Ordered
[2022-09-10] MEDS: methADONE HCl 20 MG/2 ML ORAL.CONC 60 MG PO (09:08)
[2022-09-10 10:35] LABS: Hematocrit 29.1 % (42.0-52.0); Hemoglobin 9.5 g/dl (14.0-18.0); Mean Corpuscular HGB Conc 32.6 g/dl (31.0-36.0); Mean Corpuscular Hemoglobin 29.4 pg (27.0-33.0); Mean Corpuscular Volume 90.1 fL (80.0-98.0); Mean Platelet Volume 8.3 fL (9.4-12.4); Platelet Count 568 X10*3/uL (160-400); Red Blood Count 3.23 X10*6/uL (4.60-5.80); Red Cell Distribution Width 13.8 % (11.0-16.0); White Blood Count 7.1 X10*3/uL (4.8-10.8)
[2022-09-10 10:45] LABS: Anion Gap 11 (12-20); Blood Urea Nitrogen 8 mg/dL (9-16); Calcium 8.2 mg/dL (8.4-10.2); Carbon Dioxide 26 mmol/L (22-29); Chloride 103 mmol/L (96-108); Creatinine Clr Calc Pharmacy 114.5; Estimated Glomerular Filt Rate > 60; Glucose Random 117 mg/dL (60-115); Potassium 4.7 mmol/L (3.3-5.1); Sodium 135 mmol/L (135-145)
[2022-09-10 11:29] VITALS: BP 158/95; PULSE 82; RESP 20; TEMP 36.8; O2SAT 96
--- NOTE | 2022-09-10 12:29 | P.PNIM_ITS ---
Subjective Subjective Date of Service: 09/10/22 Interval History: Seen and evaluated this morning still complaining of abd pain and SI reporting depression and low mood No fever or chills No other overnight events Review of Systems Review of Systems: Yes all other systems are reviewed and are negative Physical Exam Vital Signs: Vital Signs: Last Vital Signs Temp 98.2 F 09/10/22 11:29 Pulse 82 09/10/22 11:29 Resp 20 09/10/22 11:29 BP 158/95 H 09/10/22 11:29 Pulse Ox 96 09/10/22 11:29 O2 Del Method Room Air 09/10/22 11:29 BMI result Body Mass Index 20.9 Const: Other: Constitutional : Awake, interactive, not in distress Neck : Normal inspection, Supple Cardiovascular : RRR, no JVP, no lower extremity edema Respiratory : good bilateral air entry, no crackles, wheezes or rhonchi Gastrointestinal: soft, lax, Normal bowel sounds, generalized tenderness with palpation, no surgical signs Skin : Warm, Dry Neurological : Alert & oriented x3, No focal deficit Objective Data Active Medications Acetaminophen (Acetaminophen 325 Mg Tablet) 650 mg PO Q6H PRN PRN Reason: Pain, Mild (Pain Scale 1-3) Al Hydroxide/Mg Hydroxide (Magnesium Hydrox/Alum Hydrox 30 Ml Oral.Susp) 30 ml PO Q6H PRN PRN Reason: Heartburn/Nausea Bupropion HCl (Bupropion Hcl Xl 300 Mg Tab.Er.24h) 300 mg PO DAILY [facility] Last Admin: 09/10/22 07:55 Dose: 300 mg Documented By: DAMIEN Calcium Carbonate (Calcium Carbonate 500 Mg Tablet) 500 mg PO BID [facility] Last Admin: 09/10/22 08:03 Dose: Not Given Documented By: DAMIEN Non-Admin Reason: Patient Refused Dicyclomine HCl (Dicyclomine Hcl 10 Mg Capsule) 20 mg PO TIDAC [facility] Last Admin: 09/10/22 07:54 Dose: 20 mg Documented By: DAMIEN Docusate Sodium (Docusate Sodium 100 Mg Capsule) 100 mg PO DAILY PRN PRN Reason: Constipation Enoxaparin Sodium (Enoxaparin Sodium 40 Mg/0.4 Ml Syringe) 40 mg SUBCUT Q24H [facility] Last Admin: 09/09/22 16:43 Dose: 40 mg Documented By: NATANAEL Famotidine (Famotidine 20 Mg Tablet) 20 mg PO BEDTIME [facility] Last Admin: 09/09/22 20:04 Dose: 20 mg Documented By: REBECCA Gabapentin (Gabapentin 100 Mg Capsule) 100 mg PO BID [facility] Last Admin: 09/10/22 07:54 Dose: 100 mg Documented By: DAMIEN Sodium Chloride (Ns) 1,000 mls @ 100 mls/hr IVCONT .Q10H [facility] Last Infusion: 09/10/22 10:43 Dose: 0 mls/hr Documented By: DAMIEN Loperamide HCl (Loperamide Hcl 2 Mg Capsule) 2 mg PO Q4H PRN PRN Reason: diarrhea Methadone HCl (Methadone Hcl 20 Mg/2 Ml Oral.Conc) 60 mg PO DAILY [facility] Last Admin: 09/10/22 09:08 Dose: 60 mg Documented By: DAMIEN Methylprednisolone Sodium Succinate (Methylprednisolone Sod Succ 40 Mg/Ml Vial) 20 mg IVPUSH Q8H [facility] Last Admin: 09/10/22 07:54 Dose: 20 mg Documented By: DAMIEN Morphine Sulfate (Morphine Sulfate 4 Mg/Ml Cartridge) 2 mg IVPUSH Q4H PRN; Protocol PRN Reason: Pain, Severe (Pain Scale 7-10) Last Admin: 09/10/22 10:49 Dose: 2 mg Documented By: DAMIEN Nicotine (Nicotine 14 Mg Patch.Td24) 14 mg TRANSDERMA DAILY [facility] Last Admin: 09/10/22 08:03 Dose: Not Given Documented By: DAMIEN Non-Admin Reason: Patient Refused Nicotine Polacrilex (Nicotine Polacrilex 2 Mg Gum) 4 mg BUCCAL Q2H PRN PRN Reason: Nicotine Cravings Omeprazole (Omeprazole 40 Mg Capsule.Dr) 40 mg PO DAILY@0630 [facility] Last Admin: 09/10/22 06:08 Dose: 40 mg Documented By: ROJAS Ondansetron HCl (Ondansetron Hcl 4 Mg/2 Ml Vial) 4 mg IVPUSH Q8H PRN PRN Reason: Nausea and Vomiting Last Admin: 09/09/22 11:00 Dose: 4 mg Documented By: REBECCA Oxycodone HCl (Oxycodone Hcl Immed Release 5 Mg Tablet) 5 mg PO Q6H PRN PRN Reason: Pain, Moderate(Pain Scale 4-6) Last Admin: 09/10/22 07:53 Dose: 5 mg Documented By: DAMIEN Pharmacy Consult (Consult Rx Perform Med Rec) 1 each MISCELLANE ONCE PRN PRN Reason: Consult order Quetiapine Fumarate (Quetiapine Fumarate 50 Mg Tablet) 50 mg PO Q4H PRN PRN Reason: AH/agitation Last Admin: 09/09/22 20:04 Dose: 50 mg Documented By: REBECCA Thiamine HCl (Thiamine Hcl 100 Mg Tablet) 100 mg PO DAILY [facility] Last Admin: 09/10/22 08:04 Dose: Not Given Documented By: DAMIEN Non-Admin Reason: Patient Refused Trazodone HCl (Trazodone Hcl 50 Mg Tablet) 50 mg PO BEDTIME MRX1 PRN PRN Reason: Insomnia Last Admin: 09/08/22 21:35 Dose: 50 mg Documented By: SERG Trazodone HCl (Trazodone Hcl 100 Mg Tablet) 200 mg PO BEDTIME [facility] Last Admin: 09/09/22 20:04 Dose: 200 mg Documented By: REBECCA Labs 09/10/22 10:09 09/10/22 10:09 Labs: Laboratory Results - last 24 hr 09/10/22 09/10/22 10:09 10:09 MCV 90.1 MCH 29.4 MCHC 32.6 RDW 13.8 Plt Count 568 H MPV 8.3 L Absolute Nucleated RBC 0.000 Nucleated RBC % (auto) 0.0 Anion Gap 11 L Estim Creat Clear Calc 114.5 Estimated GFR > 60 Random Glucose 117 H Calcium 8.2 L Microbiology Microbiology Results: Microbiology 09/08/22 18:28 Blood Culture - Preliminary Blood - Venous No growth after 24 hours. 09/08/22 18:28 Blood Culture - Preliminary Blood - Venous No growth after 24 hours. Assessment and Plan (1) Colitis: Status: Acute (2) Intractable abdominal pain: Status: Acute (3) Acute encephalopathy: Status: Acute Plan 47-year-old patient with underlying history of hypertension, IV drug abuse, cocaine abuser, hepatitis-C, depression, PTSD, depression with SI and suicidal attempt, anxiety, acid reflux admitted to medicine from adult psychiatry for further management of intractable abdominal pain with poor p.o. intake. #Intractable abdominal pain likely related to IBD vs ischemic colitis CT abdomen/pelvis with IV contrast showing colitis of the distal transverse colon along with enteritis involving a segment of the distal ileum minimally improved compared to prior studies Stricture noted on colonoscopy not noted on CT. No surgery indicated per GI repeat GI panel and CDiff PCR IV methylprednisolone 20 mg t.i.d. per GI pain management using pain scale Regular diet with Ensure, encourage PO intake as tolerated Continue IVF No leukocytosis, VSS. No sepsis. GI input appreciated surgery input appreciated, no surgery needed #Acute encephalopathy toxic metabolic suspect medication induced/polypharmacy improved back to baseline Negative head ct Psychiatry consult appreciated, increase Trazodone PRN Seroquel, low dose Gabapentin Hold sedating medications- seroquel, clonazepam, cyclobenzaprine, gabapentin, hydroxyzine, clonidine (monitor for rebound htn). restart as tolerated. Continue methadone and pain medications as above #Anorexia due to above mild dehydration Regular diet as tolerated as above #Moderate malnutrition with protein deficiency 50 pound weight loss since passing of in may Albumin 2.4 Add ensure Nutrition consult # Elevated right heart pressure noted on abd CT Echocardiogram showing normal EF w inf segment akinetic #MDD with passive SI Hold sedating medications as above. Can continue trazodone prn bedtime Sitter given SI Psychiatry consult Care team consult once medically cleared #Polysubstance abuse with opiate dependence continue methadone #Cigarette smoker patches and gum prn for nrt cessation counseling DVT prophylaxis- lovenox Full code Patient requires inpatient stay overnight for management of intractable abdominal pain with poor p.o. intake and acute encephalopathy requiring expert consultation, IV steroids, and pain management Time Spent With Patient Time: Total time managing care of this patient today ____ minutes. Quality Stroke Does the patient have a stroke diagnosis?: No VTE Prior VTE?: No VTE Risk Level:: Medical - moderate - high VTE Device Contraindication: Treatment Not Indicated VTE Drug Contraindication: N/A - Med Ordered
[2022-09-10 15:20] VITALS: BP 151/93; PULSE 91; RESP 18; TEMP 37; O2SAT 97
[2022-09-10 20:00] VITALS: BP 157/93; PULSE 83; RESP 18; TEMP 36.8; O2SAT 95
[2022-09-10] MEDS: traZODone HCL 100 MG TABLET 200 MG PO (21:42)
[2022-09-10] MEDS: Famotidine 20 MG TABLET PO (21:42)
[2022-09-10 23:46] VITALS: BP 157/99; PULSE 75; RESP 19; TEMP 36.3; O2SAT 96
[2022-09-11] MEDS: methylPREDNISolone Sod Succ 40 MG/ML VIAL 20 MG IVPUSH ×2 (00:19→07:57)
[2022-09-11] MEDS: Morphine Sulfate 4 MG/ML CARTRIDGE 2 MG IVPUSH ×2 (00:23→07:59)
[2022-09-11 04:00] VITALS: RESP 18
[2022-09-11] MEDS: Omeprazole 40 MG CAPSULE.DR PO (05:39)
[2022-09-11 07:40] VITALS: BP 156/96; PULSE 81; RESP 20; TEMP 37.1; O2SAT 96
[2022-09-11] MEDS: Gabapentin 100 MG CAPSULE PO ×2 (07:58→22:13)
[2022-09-11] MEDS: buPROPion HCl XL 300 MG TAB.ER.24H PO (07:58)
[2022-09-11] MEDS: Dicyclomine HCl 10 MG CAPSULE 20 MG PO ×3 (07:58→16:12)
--- NOTE | 2022-09-11 08:27 | PM.PNGS ---
Subjective Subjective Date of Service: 09/11/22 Interval history: say he feels better oral intake much improved abdl pain also much better diarrhea resolved Physical Exam Vital Signs: Vital Signs: Last Vital Signs Temp 98.7 F 09/11/22 07:40 Pulse 81 09/11/22 07:40 Resp 20 09/11/22 07:40 BP 156/96 H 09/11/22 07:40 Pulse Ox 96 09/11/22 07:40 O2 Del Method Room Air 09/11/22 07:40 BMI result Body Mass Index 20.9 Const: Other: looks well General: comfortable and no acute distress Resp: Effort & Inspection: normal respiratory effort Cardio: Rate: regular rate GI: Palpation (GI): Soft to palpation, not firm, nontender and no guarding Objective Data Active Medications Acetaminophen (Acetaminophen 325 Mg Tablet) 650 mg PO Q6H PRN PRN Reason: Pain, Mild (Pain Scale 1-3) Al Hydroxide/Mg Hydroxide (Magnesium Hydrox/Alum Hydrox 30 Ml Oral.Susp) 30 ml PO Q6H PRN PRN Reason: Heartburn/Nausea Bupropion HCl (Bupropion Hcl Xl 300 Mg Tab.Er.24h) 300 mg PO DAILY [facility] Last Admin: 09/11/22 07:58 Dose: 300 mg Documented By: DAMIEN Calcium Carbonate (Calcium Carbonate 500 Mg Tablet) 500 mg PO BID [facility] Last Admin: 09/10/22 21:45 Dose: Not Given Documented By: RAÚL Non-Admin Reason: Patient Refused Dicyclomine HCl (Dicyclomine Hcl 10 Mg Capsule) 20 mg PO TIDAC [facility] Last Admin: 09/11/22 07:58 Dose: 20 mg Documented By: DAMIEN Docusate Sodium (Docusate Sodium 100 Mg Capsule) 100 mg PO DAILY PRN PRN Reason: Constipation Enoxaparin Sodium (Enoxaparin Sodium 40 Mg/0.4 Ml Syringe) 40 mg SUBCUT Q24H [facility] Last Admin: 09/10/22 16:19 Dose: Not Given Documented By: DAMIEN Non-Admin Reason: pt refused Famotidine (Famotidine 20 Mg Tablet) 20 mg PO BEDTIME [facility] Last Admin: 09/10/22 21:42 Dose: 20 mg Documented By: RAÚL Gabapentin (Gabapentin 100 Mg Capsule) 100 mg PO BID [facility] Last Admin: 09/11/22 07:58 Dose: 100 mg Documented By: DAMIEN Loperamide HCl (Loperamide Hcl 2 Mg Capsule) 2 mg PO Q4H PRN PRN Reason: diarrhea Methadone HCl (Methadone Hcl 20 Mg/2 Ml Oral.Conc) 60 mg PO DAILY [facility] Last Admin: 09/10/22 09:08 Dose: 60 mg Documented By: DAMIEN Morphine Sulfate (Morphine Sulfate 4 Mg/Ml Cartridge) 2 mg IVPUSH Q4H PRN; Protocol PRN Reason: Pain, Severe (Pain Scale 7-10) Last Admin: 09/11/22 07:59 Dose: 2 mg Documented By: DAMIEN Nicotine (Nicotine 14 Mg Patch.Td24) 14 mg TRANSDERMA DAILY [facility] Last Admin: 09/10/22 08:03 Dose: Not Given Documented By: DAMIEN Non-Admin Reason: Patient Refused Nicotine Polacrilex (Nicotine Polacrilex 2 Mg Gum) 4 mg BUCCAL Q2H PRN PRN Reason: Nicotine Cravings Omeprazole (Omeprazole 40 Mg Capsule.Dr) 40 mg PO DAILY@0630 [facility] Last Admin: 09/11/22 05:39 Dose: 40 mg Documented By: RAÚL Ondansetron HCl (Ondansetron Hcl 4 Mg/2 Ml Vial) 4 mg IVPUSH Q8H PRN PRN Reason: Nausea and Vomiting Last Admin: 09/09/22 11:00 Dose: 4 mg Documented By: REBECCA Oxycodone HCl (Oxycodone Hcl Immed Release 5 Mg Tablet) 5 mg PO Q6H PRN PRN Reason: Pain, Moderate(Pain Scale 4-6) Last Admin: 09/10/22 21:41 Dose: 5 mg Documented By: RAÚL Pharmacy Consult (Consult Rx Perform Med Rec) 1 each MISCELLANE ONCE PRN PRN Reason: Consult order Prednisone (Prednisone 20 Mg Tablet) 40 mg PO DAILY [facility] Quetiapine Fumarate (Quetiapine Fumarate 50 Mg Tablet) 50 mg PO Q4H PRN PRN Reason: AH/agitation Last Admin: 09/09/22 20:04 Dose: 50 mg Documented By: REBECCA Thiamine HCl (Thiamine Hcl 100 Mg Tablet) 100 mg PO DAILY [facility] Last Admin: 09/10/22 08:04 Dose: Not Given Documented By: HO.LINGH Non-Admin Reason: Patient Refused Trazodone HCl (Trazodone Hcl 50 Mg Tablet) 50 mg PO BEDTIME MRX1 PRN PRN Reason: Insomnia Last Admin: 09/08/22 21:35 Dose: 50 mg Documented By: SERG Trazodone HCl (Trazodone Hcl 100 Mg Tablet) 200 mg PO BEDTIME [facility] Last Admin: 09/10/22 21:42 Dose: 200 mg Documented By: RAÚL Labs 09/10/22 10:09 09/10/22 10:09 Labs: Laboratory Results - last 24 hr 09/10/22 09/10/22 10:09 10:09 MCV 90.1 MCH 29.4 MCHC 32.6 RDW 13.8 Plt Count 568 H MPV 8.3 L Absolute Nucleated RBC 0.000 Nucleated RBC % (auto) 0.0 Anion Gap 11 L Estim Creat Clear Calc 114.5 Estimated GFR > 60 Random Glucose 117 H Calcium 8.2 L Microbiology Microbiology Results: Microbiology 09/08/22 18:28 Blood Culture - Preliminary Blood - Venous No growth after 48 hours. 09/08/22 18:28 Blood Culture - Preliminary Blood - Venous No growth after 48 hours. Procedures Date of Service Date of Service: 09/11/22 Progress Note: A&P Assessment and plan (1) Colitis: Status: Acute Assessment and Plan: clinically much improved much less abdl pain as per patient diarrhea resolved abd remains soft and benign no signs of obstruction passing flatus well continue current care diet a tolerated Time Spent With Patient Time: Total time managing care of this patient today ____ minutes. Quality Stroke Does the patient have a stroke diagnosis?: No VTE Prior VTE?: No VTE Risk Level:: Medical - moderate - high VTE Device Contraindication: Treatment Not Indicated VTE Drug Contraindication: N/A - Med Ordered
[2022-09-11] MEDS: methADONE HCl 20 MG/2 ML ORAL.CONC 60 MG PO (09:18)
--- NOTE | 2022-09-11 10:16 | MHC.CARE ---
patient seen by CARE team for LOC assessment, patient appears to continue to require inpt psych LOC and is pending placement
--- NOTE | 2022-09-11 10:24 | MHC.CM.PN ---
PT MEDICALLY CLEARED FOR D/C, PER HOSPITALIST RAQUEL TXFR TO INPT PSYCH, CARE TEAM TO COORDINATE.
--- NOTE | 2022-09-11 10:59 | MHC.CLN ---
F/U PT IS MODERATELY MALNOURISHED PT WITH MILDLY DEPLETED BODY FAT WITH 21% SIGNIFICANT WT LOSS X 1 YEAR AND CHRONIC POOR PO INTAKE R/T INCREASE IN DEPRESSION R/T PASSING AND ABDOMINAL PAIN R/T COLITIS SEE FULL CLINICAL NUTRITION ASSESSMENT DATED 09/09/22 PT STATES HIS APPETITE IS IMPROVED HOWEVER NO PO INTAKE RECORDED DIET RX: REGULAR-APPROPRIATE SPOKE WITH PT AND CONTINUE TO ENCOURAGE INCREASE IN PO INTAKE TO MAINTAIN WT PT REPORTS HE IS CURRENTLY ONLY DRINKING ENSURE X2 PER DAY ENSURE PROVIDES 700KCALS (35% EST KCALS NEEDS), 40G PROTEIN (49% EST PROTEIN NEEDS) PT REPORTED HE LIKES ICE CREAM, JELLO, BROTH, CRACKERS, TEA, TOAST GSR/KITCHEN AWARE OF FOOD PREFERENCES WILL ADD THRIVE ICE CREAM TO MEAL TRAYS TO PROVIDE 810KCALS, 27G PROTEIN IF PPN NEEDED; RECOMMEND D10AA4.25 AT 40ML/HR TO PROVIDE 490KCALS, 41G PROTEIN WEEKLY WEIGHTS STRICT PO INTAKE
[2022-09-11] MEDS: oxyCODONE HCl Immed Release 5 MG TABLET PO ×3 (11:26→22:12)
[2022-09-11 11:36] VITALS: BP 160/94; PULSE 73; RESP 20; TEMP 36.5; O2SAT 96
[2022-09-11] MEDS: Acetaminophen 325 MG TABLET 650 MG PO ×3 (12:29→22:14)
--- NOTE | 2022-09-11 13:32 | HO.PM.IMPN ---
Subjective Subjective Date of Service: 09/11/22 Interval History: Seen and evaluated this morning still complaining of abd pain and SI reporting depression and low mood No fever or chills No other overnight events Physical Exam Vital Signs: Vital Signs: Last Vital Signs Temp 97.7 F 09/11/22 11:36 Pulse 73 09/11/22 11:36 Resp 20 09/11/22 11:36 BP 160/94 H 09/11/22 11:36 Pulse Ox 96 09/11/22 11:36 O2 Del Method Room Air 09/11/22 11:36 BMI result Body Mass Index 20.9 Const: Other: Constitutional : Awake, interactive, not in distress Neck : Normal inspection, Supple Cardiovascular : RRR, no JVP, no lower extremity edema Respiratory : good bilateral air entry, no crackles, wheezes or rhonchi Gastrointestinal: soft, lax, Normal bowel sounds, mild generalized tenderness with palpation, no surgical signs Skin : Warm, Dry Neurological : Alert & oriented x3, No focal deficit Objective Data Active Medications Acetaminophen (Acetaminophen 325 Mg Tablet) 650 mg PO TID [facility] Last Admin: 09/11/22 12:29 Dose: 650 mg Documented By: DAMIEN Al Hydroxide/Mg Hydroxide (Magnesium Hydrox/Alum Hydrox 30 Ml Oral.Susp) 30 ml PO Q6H PRN PRN Reason: Heartburn/Nausea Bupropion HCl (Bupropion Hcl Xl 300 Mg Tab.Er.24h) 300 mg PO DAILY [facility] Last Admin: 09/11/22 07:58 Dose: 300 mg Documented By: DAMIEN Calcium Carbonate (Calcium Carbonate 500 Mg Tablet) 500 mg PO BID [facility] Last Admin: 09/11/22 09:09 Dose: Not Given Documented By: DAMIEN Non-Admin Reason: Patient Refused Dicyclomine HCl (Dicyclomine Hcl 10 Mg Capsule) 20 mg PO TIDAC [facility] Last Admin: 09/11/22 11:26 Dose: 20 mg Documented By: DAMIEN Docusate Sodium (Docusate Sodium 100 Mg Capsule) 100 mg PO DAILY PRN PRN Reason: Constipation Enoxaparin Sodium (Enoxaparin Sodium 40 Mg/0.4 Ml Syringe) 40 mg SUBCUT Q24H [facility] Last Admin: 09/10/22 16:19 Dose: Not Given Documented By: DAMIEN Non-Admin Reason: pt refused Famotidine (Famotidine 20 Mg Tablet) 20 mg PO BEDTIME [facility] Last Admin: 09/10/22 21:42 Dose: 20 mg Documented By: RAÚL Gabapentin (Gabapentin 100 Mg Capsule) 100 mg PO BID [facility] Last Admin: 09/11/22 07:58 Dose: 100 mg Documented By: DAMIEN Loperamide HCl (Loperamide Hcl 2 Mg Capsule) 2 mg PO Q4H PRN PRN Reason: diarrhea Methadone HCl (Methadone Hcl 20 Mg/2 Ml Oral.Conc) 60 mg PO DAILY [facility] Last Admin: 09/11/22 09:18 Dose: 60 mg Documented By: DAMIEN Morphine Sulfate (Morphine Sulfate 4 Mg/Ml Cartridge) 2 mg IVPUSH Q4H PRN; Protocol PRN Reason: Pain, Severe (Pain Scale 7-10) Last Admin: 09/11/22 07:59 Dose: 2 mg Documented By: DAMIEN Nicotine (Nicotine 14 Mg Patch.Td24) 14 mg TRANSDERMA DAILY [facility] Last Admin: 09/11/22 09:09 Dose: Not Given Documented By: DAMIEN Non-Admin Reason: Patient Refused Nicotine Polacrilex (Nicotine Polacrilex 2 Mg Gum) 4 mg BUCCAL Q2H PRN PRN Reason: Nicotine Cravings Omeprazole (Omeprazole 40 Mg Capsule.Dr) 40 mg PO DAILY@0630 [facility] Last Admin: 09/11/22 05:39 Dose: 40 mg Documented By: RAÚL Ondansetron HCl (Ondansetron Hcl 4 Mg/2 Ml Vial) 4 mg IVPUSH Q8H PRN PRN Reason: Nausea and Vomiting Last Admin: 09/09/22 11:00 Dose: 4 mg Documented By: REBECCA Oxycodone HCl (Oxycodone Hcl Immed Release 5 Mg Tablet) 5 mg PO Q4H PRN PRN Reason: Pain, Moderate(Pain Scale 4-6) Pharmacy Consult (Consult Rx Perform Med Rec) 1 each MISCELLANE ONCE PRN PRN Reason: Consult order Prednisone (Prednisone 20 Mg Tablet) 40 mg PO DAILY [facility] Last Admin: 09/11/22 09:22 Dose: Not Given Documented By: DAMIEN Non-Admin Reason: Physician Held Med Quetiapine Fumarate (Quetiapine Fumarate 50 Mg Tablet) 50 mg PO Q4H PRN PRN Reason: AH/agitation Last Admin: 09/09/22 20:04 Dose: 50 mg Documented By: BRODonald Thiamine HCl (Thiamine Hcl 100 Mg Tablet) 100 mg PO DAILY [facility] Last Admin: 09/11/22 09:09 Dose: Not Given Documented By: DAMIEN Non-Admin Reason: Patient Refused Trazodone HCl (Trazodone Hcl 50 Mg Tablet) 50 mg PO BEDTIME MRX1 PRN PRN Reason: Insomnia Last Admin: 09/08/22 21:35 Dose: 50 mg Documented By: SERG Trazodone HCl (Trazodone Hcl 100 Mg Tablet) 200 mg PO BEDTIME [facility] Last Admin: 09/10/22 21:42 Dose: 200 mg Documented By: COOK Labs 09/10/22 10:09 09/10/22 10:09 Microbiology Microbiology Results: Microbiology 09/08/22 18:28 Blood Culture - Preliminary Blood - Venous No growth after 48 hours. 09/08/22 18:28 Blood Culture - Preliminary Blood - Venous No growth after 48 hours. Assessment and Plan (1) Colitis: Status: Acute (2) Intractable abdominal pain: Status: Acute (3) Acute encephalopathy: Status: Acute Plan 47-year-old patient with underlying history of hypertension, IV drug abuse, cocaine abuser, hepatitis-C, depression, PTSD, depression with SI and suicidal attempt, anxiety, acid reflux admitted to medicine from adult psychiatry for further management of intractable abdominal pain with poor p.o. intake. #Intractable abdominal pain likely related to IBD vs ischemic colitis CT abdomen/pelvis with IV contrast showing colitis of the distal transverse colon along with enteritis involving a segment of the distal ileum minimally improved compared to prior studies Stricture noted on colonoscopy not noted on CT. No surgery indicated per GI repeat GI panel and CDiff PCR pain management Regular diet with Ensure, encourage PO intake as tolerated GI input appreciated, Prednisone long taper dose, start with 40mg daily 09/11 and start Pentasa 1 gm QID surgery input appreciated, no intervention needed #Acute encephalopathy toxic metabolic 2/2 medication induced/polypharmacy, resolved improved back to baseline Negative head ct Psychiatry consult appreciated, increase Trazodone PRN Seroquel, low dose Gabapentin Hold sedating medications- seroquel, clonazepam, cyclobenzaprine, gabapentin, hydroxyzine, clonidine (monitor for rebound htn). restart as tolerated. Continue methadone and pain medications as above # HTN add Amlodipine as Clonidine dcd #Anorexia due to above mild dehydration Regular diet as tolerated as above #Moderate malnutrition with protein deficiency 50 pound weight loss since passing of in may Albumin 2.4 Add ensure Nutrition consult # Elevated right heart pressure noted on abd CT Echocardiogram showing normal EF w inf segment akinetic #MDD with passive SI Hold sedating medications as above. Can continue trazodone prn bedtime Sitter given SI Psychiatry consult Care team consult trying to arrange for psych floor admission #Polysubstance abuse with opiate dependence continue methadone #Cigarette smoker patches and gum prn for nrt cessation counseling DVT prophylaxis- lovenox Full code Patient requires inpatient stay overnight for management of intractable abdominal pain with poor p.o. intake and acute encephalopathy requiring expert consultation, steroids, and pain management Time Spent With Patient Time: Total time managing care of this patient today ____ minutes. Quality Stroke Does the patient have a stroke diagnosis?: No VTE Prior VTE?: No VTE Risk Level:: Medical - moderate - high VTE Device Contraindication: Treatment Not Indicated VTE Drug Contraindication: N/A - Med Ordered
[2022-09-11] MEDS: amLODIPine Besylate 5 MG TABLET PO (13:56)
[2022-09-11] MEDS: Mesalamine 250 MG CAPSULE.ER 1000 MG PO ×3 (13:56→22:13)
[2022-09-11 15:34] VITALS: BP 180/80; PULSE 67; RESP 20; TEMP 36.3; O2SAT 96
[2022-09-11 15:44] VITALS: BP 168/92
--- NOTE | 2022-09-11 18:44 | P.PNGI_ITS ---
Subjective Subjective Date of Service: 09/11/22 Interval History: Pt notes improvement in abdominal pain. Has been able to take 50% of his meals (has been eating slowly) Continues to drink Ensure. States diarrhea has resolved. Critical Care Time (minutes): 15 Physical Exam Vital Signs: Vital Signs: Last Vital Signs Temp 97.4 F 09/11/22 15:34 Pulse 67 09/11/22 15:34 Resp 20 09/11/22 15:34 BP 168/92 H 09/11/22 15:44 Pulse Ox 96 09/11/22 15:34 O2 Del Method Room Air 09/11/22 15:34 BMI result Body Mass Index 20.9 Objective Data Labs 09/10/22 10:09 09/10/22 10:09 Microbiology Microbiology Results: Microbiology 09/08/22 18:28 Blood - Venous Blood Culture - Preliminary No growth after 48 hours. 09/08/22 18:28 Blood - Venous Blood Culture - Preliminary No growth after 48 hours. Procedures Date of Service Date of Service: 09/11/22 Progress Note: A&P Assessment and plan (1) Colitis: Status: Acute (2) Intractable abdominal pain: Status: Acute (3) Sigmoid stricture: Status: Acute Plan 47 YM with history IV drug abuse, hypertension, major depressive disorder with psychosis, cocaine abuse admitted to the ICU at [facility] on 08/10/22 after a suicidal attempt Patient was eventually downgraded to medical floor.? Course was then complicated by acute colitis.? Stool PCR was negative for C diff and other pathogens, was treated with Imodium.? GI consulted for severe abdominal pain with nausea and vomiting and diarrhea.? 08/16/22 stool test was negative for C diff and CRP and fecal calprotectin was elevated Persistent changes on abd CT scan with minimal improvement raised concerns about possible Crohn's disease (Of note Abd CT scan in 06/2022 revealed normal small bowel and colon) His symptoms are improving on Prednisone RECOMMENDATIONS: 1.? Continue PO prednisone at 40 mg daily and taper by 10 mg every week over 4 weeks 2. Start Pentasa 1 gram PO four times a day for suspected IBD. Time Spent With Patient Time: Total time managing care of this patient today ____ minutes. Quality Stroke Does the patient have a stroke diagnosis?: No VTE Prior VTE?: No VTE Risk Level:: Medical - moderate - high VTE Device Contraindication: Treatment Not Indicated VTE Drug Contraindication: N/A - Med Ordered
[2022-09-11 19:37] VITALS: BP 147/95; PULSE 78; RESP 20; TEMP 36.3; O2SAT 95
[2022-09-11] MEDS: Famotidine 20 MG TABLET PO (22:13)
[2022-09-11] MEDS: traZODone HCL 100 MG TABLET 200 MG PO (22:13)
[2022-09-12 04:00] VITALS: BP 135/92; PULSE 84; RESP 16; TEMP 37.2; O2SAT 96
[2022-09-12 07:30] VITALS: BP 126/86; PULSE 76; RESP 20; TEMP 36.1; O2SAT 95
[2022-09-12] MEDS: Dicyclomine HCl 10 MG CAPSULE 20 MG PO ×3 (08:47→16:09)
[2022-09-12] MEDS: amLODIPine Besylate 5 MG TABLET PO (08:47)
[2022-09-12] MEDS: oxyCODONE HCl Immed Release 5 MG TABLET PO ×2 (08:47→13:34)
[2022-09-12] MEDS: predniSONE 20 MG TABLET 40 MG PO (08:47)
[2022-09-12] MEDS: buPROPion HCl XL 300 MG TAB.ER.24H PO (08:47)
[2022-09-12] MEDS: Acetaminophen 325 MG TABLET 650 MG PO ×3 (08:48→21:43)
[2022-09-12] MEDS: Gabapentin 100 MG CAPSULE PO ×2 (08:48→21:45)
[2022-09-12] MEDS: Mesalamine 250 MG CAPSULE.ER 1000 MG PO ×4 (08:49→21:45)
[2022-09-12] MEDS: methADONE HCl 20 MG/2 ML ORAL.CONC 60 MG PO (08:49)
--- NOTE | 2022-09-12 11:08 | P.PNIM_ITS ---
Subjective Subjective Date of Service: 09/12/22 Interval History: Seen and evaluated this morning still complaining of abd pain and SI reporting diarrhea tolerating diet No fever or chills No other overnight events Review of Systems Review of Systems: Yes all other systems are reviewed and are negative Physical Exam Vital Signs: Vital Signs: Last Vital Signs Temp 97.0 F 09/12/22 07:30 Pulse 76 09/12/22 07:30 Resp 20 09/12/22 07:30 BP 126/86 09/12/22 07:30 Pulse Ox 95 09/12/22 07:30 O2 Del Method Room Air 09/12/22 07:30 BMI result Body Mass Index 20.9 Const: Other: Constitutional : Awake, interactive, not in distress Neck : Normal inspection, Supple Cardiovascular : RRR, no JVP, no lower extremity edema Respiratory : good bilateral air entry, no crackles, wheezes or rhonchi Gastrointestinal: soft, lax, Normal bowel sounds, mild generalized tenderness with palpation, no surgical signs Skin : Warm, Dry Neurological : Alert & oriented x3, No focal deficit Objective Data Active Medications Acetaminophen (Acetaminophen 325 Mg Tablet) 650 mg PO TID [facility] Last Admin: 09/12/22 08:48 Dose: 650 mg Documented By: JAZMYNE Al Hydroxide/Mg Hydroxide (Magnesium Hydrox/Alum Hydrox 30 Ml Oral.Susp) 30 ml PO Q6H PRN PRN Reason: Heartburn/Nausea Amlodipine Besylate (Amlodipine Besylate 5 Mg Tablet) 5 mg PO DAILY [facility]; Protocol Last Admin: 09/12/22 08:47 Dose: 5 mg Documented By: JAZMYNE Bupropion HCl (Bupropion Hcl Xl 300 Mg Tab.Er.24h) 300 mg PO DAILY [facility] Last Admin: 09/12/22 08:47 Dose: 300 mg Documented By: JAZMYNE Calcium Carbonate (Calcium Carbonate 500 Mg Tablet) 500 mg PO BID [facility] Last Admin: 09/12/22 08:49 Dose: Not Given Documented By: JAZMYNE Non-Admin Reason: Patient Refused Dicyclomine HCl (Dicyclomine Hcl 10 Mg Capsule) 20 mg PO TIDAC [facility] Last Admin: 09/12/22 08:47 Dose: 20 mg Documented By: JAZMYNE Docusate Sodium (Docusate Sodium 100 Mg Capsule) 100 mg PO DAILY PRN PRN Reason: Constipation Enoxaparin Sodium (Enoxaparin Sodium 40 Mg/0.4 Ml Syringe) 40 mg SUBCUT Q24H [facility] Last Admin: 09/11/22 16:13 Dose: Not Given Documented By: BRENDA Non-Admin Reason: Patient Refused Famotidine (Famotidine 20 Mg Tablet) 20 mg PO BEDTIME [facility] Last Admin: 09/11/22 22:13 Dose: 20 mg Documented By: SERG Gabapentin (Gabapentin 100 Mg Capsule) 100 mg PO BID [facility] Last Admin: 09/12/22 08:48 Dose: 100 mg Documented By: JAZMYNE Loperamide HCl (Loperamide Hcl 2 Mg Capsule) 2 mg PO Q4H PRN PRN Reason: diarrhea Mesalamine (Mesalamine 250 Mg Capsule.Er) 1,000 mg PO QID [facility] Last Admin: 09/12/22 08:49 Dose: 1,000 mg Documented By: JAZMYNE Methadone HCl (Methadone Hcl 20 Mg/2 Ml Oral.Conc) 60 mg PO DAILY [facility] Last Admin: 09/12/22 08:49 Dose: 60 mg Documented By: JAZMYNE Morphine Sulfate (Morphine Sulfate 4 Mg/Ml Cartridge) 2 mg IVPUSH Q4H PRN; Protocol PRN Reason: Pain, Severe (Pain Scale 7-10) Last Admin: 09/11/22 07:59 Dose: 2 mg Documented By: DAMIEN Nicotine (Nicotine 14 Mg Patch.Td24) 14 mg TRANSDERMA DAILY [facility] Last Admin: 09/12/22 08:49 Dose: Not Given Documented By: JAZMYNE Non-Admin Reason: Patient Refused Nicotine Polacrilex (Nicotine Polacrilex 2 Mg Gum) 4 mg BUCCAL Q2H PRN PRN Reason: Nicotine Cravings Omeprazole (Omeprazole 40 Mg Capsule.Dr) 40 mg PO DAILY@0630 [facility] Last Admin: 09/12/22 05:37 Dose: Not Given Documented By: SERG Non-Admin Reason: Patient Refused Ondansetron HCl (Ondansetron Hcl 4 Mg/2 Ml Vial) 4 mg IVPUSH Q8H PRN PRN Reason: Nausea and Vomiting Last Admin: 09/09/22 11:00 Dose: 4 mg Documented By: REBECCA Oxycodone HCl (Oxycodone Hcl Immed Release 5 Mg Tablet) 5 mg PO Q4H PRN PRN Reason: Pain, Moderate(Pain Scale 4-6) Last Admin: 09/12/22 08:47 Dose: 5 mg Documented By: JAZMYNE Pharmacy Consult (Consult Rx Perform Med Rec) 1 each MISCELLANE ONCE PRN PRN Reason: Consult order Prednisone (Prednisone 20 Mg Tablet) 40 mg PO DAILY [facility] Last Admin: 09/12/22 08:47 Dose: 40 mg Documented By: JAZMYNE Quetiapine Fumarate (Quetiapine Fumarate 50 Mg Tablet) 50 mg PO Q4H PRN PRN Reason: AH/agitation Last Admin: 09/09/22 20:04 Dose: 50 mg Documented By: DOBRODonald Thiamine HCl (Thiamine Hcl 100 Mg Tablet) 100 mg PO DAILY [facility] Last Admin: 09/12/22 08:50 Dose: Not Given Documented By: JAZMYNE Non-Admin Reason: Patient Refused Trazodone HCl (Trazodone Hcl 50 Mg Tablet) 50 mg PO BEDTIME MRX1 PRN PRN Reason: Insomnia Last Admin: 09/08/22 21:35 Dose: 50 mg Documented By: SERG Trazodone HCl (Trazodone Hcl 100 Mg Tablet) 200 mg PO BEDTIME [facility] Last Admin: 09/11/22 22:13 Dose: 200 mg Documented By: SERG Labs 09/10/22 10:09 09/10/22 10:09 Assessment and Plan (1) Colitis: Status: Acute (2) Intractable abdominal pain: Status: Acute (3) Acute encephalopathy: Status: Acute Plan 47-year-old patient with underlying history of hypertension, IV drug abuse, cocaine abuser, hepatitis-C, depression, PTSD, depression with SI and suicidal attempt, anxiety, acid reflux admitted to medicine from adult psychiatry for further management of intractable abdominal pain with poor p.o. intake. #Intractable abdominal pain likely related to IBD vs ischemic colitis CT abdomen/pelvis with IV contrast showing colitis of the distal transverse colon along with enteritis involving a segment of the distal ileum minimally improved compared to prior studies Stricture noted on colonoscopy not noted on CT. No surgery indicated per GI pain management Regular diet with Ensure, encourage PO intake as tolerated GI input appreciated, Prednisone long taper dose, start with 40mg daily 09/11 and start Pentasa 1 gm QID surgery input appreciated, no intervention needed #Acute encephalopathy toxic metabolic 2/2 medication induced/polypharmacy, resolved improved back to baseline Negative head ct Psychiatry consult appreciated, increase Trazodone PRN Seroquel, low dose Gabapentin Hold sedating medications- seroquel, clonazepam, cyclobenzaprine, gabapentin, hydroxyzine, clonidine (monitor for rebound htn). restart as tolerated. Continue methadone and pain medications as above # Diarrhea check CDiff and stool panel # HTN add Amlodipine as Clonidine dcd #Anorexia due to above mild dehydration Regular diet as tolerated as above #Moderate malnutrition with protein deficiency 50 pound weight loss since passing of in May Albumin 2.4 Add ensure Nutrition consult # Elevated right heart pressure noted on abd CT Echocardiogram showing normal EF w inf segment akinetic #MDD with passive SI Hold sedating medications as above. Can continue trazodone prn bedtime Sitter given SI Psychiatry consult Care team consult trying to arrange for psych floor admission #Polysubstance abuse with opiate dependence continue methadone #Cigarette smoker patches and gum prn for nrt cessation counseling DVT prophylaxis- lovenox Full code Patient requires inpatient stay overnight for management of intractable abdominal pain with poor p.o. intake and acute encephalopathy requiring expert consultation, steroids, and pain management pending safe discharge plan to psych floor Time Spent With Patient Time: Total time managing care of this patient today ____ minutes. Quality Stroke Does the patient have a stroke diagnosis?: No VTE Prior VTE?: No VTE Risk Level:: Medical - moderate - high VTE Device Contraindication: Treatment Not Indicated VTE Drug Contraindication: N/A - Med Ordered
--- NOTE | 2022-09-12 11:15 | P.PNGS_ITS ---
Subjective Subjective Date of Service: 09/12/22 Interval history: he says his diarrhea has recurred some pain on the left side states that he felt well yesterday no nausea or vomiting Physical Exam Vital Signs: Vital Signs: Last Vital Signs Temp 97.0 F 09/12/22 07:30 Pulse 76 09/12/22 07:30 Resp 20 09/12/22 07:30 BP 126/86 09/12/22 07:30 Pulse Ox 95 09/12/22 07:30 O2 Del Method Room Air 09/12/22 07:30 BMI result Body Mass Index 20.9 Const: General: comfortable and no acute distress Cardio: Rate: regular rate GI: Other: mild tenderness left abdomen Palpation (GI): Soft to palpation, not firm, no guarding and not rigid Objective Data Active Medications Acetaminophen (Acetaminophen 325 Mg Tablet) 650 mg PO TID [facility] Last Admin: 09/12/22 08:48 Dose: 650 mg Documented By: JAZMYNE Al Hydroxide/Mg Hydroxide (Magnesium Hydrox/Alum Hydrox 30 Ml Oral.Susp) 30 ml PO Q6H PRN PRN Reason: Heartburn/Nausea Amlodipine Besylate (Amlodipine Besylate 5 Mg Tablet) 5 mg PO DAILY [facility]; Protocol Last Admin: 09/12/22 08:47 Dose: 5 mg Documented By: JAZMYNE Bupropion HCl (Bupropion Hcl Xl 300 Mg Tab.Er.24h) 300 mg PO DAILY [facility] Last Admin: 09/12/22 08:47 Dose: 300 mg Documented By: JAZMYNE Calcium Carbonate (Calcium Carbonate 500 Mg Tablet) 500 mg PO BID [facility] Last Admin: 09/12/22 08:49 Dose: Not Given Documented By: JAZMYNE Non-Admin Reason: Patient Refused Dicyclomine HCl (Dicyclomine Hcl 10 Mg Capsule) 20 mg PO TIDAC [facility] Last Admin: 09/12/22 08:47 Dose: 20 mg Documented By: JAZMYNE Docusate Sodium (Docusate Sodium 100 Mg Capsule) 100 mg PO DAILY PRN PRN Reason: Constipation Enoxaparin Sodium (Enoxaparin Sodium 40 Mg/0.4 Ml Syringe) 40 mg SUBCUT Q24H [facility] Last Admin: 09/11/22 16:13 Dose: Not Given Documented By: BRENDA Non-Admin Reason: Patient Refused Famotidine (Famotidine 20 Mg Tablet) 20 mg PO BEDTIME [facility] Last Admin: 09/11/22 22:13 Dose: 20 mg Documented By: SERG Gabapentin (Gabapentin 100 Mg Capsule) 100 mg PO BID [facility] Last Admin: 09/12/22 08:48 Dose: 100 mg Documented By: JAZMYNE Loperamide HCl (Loperamide Hcl 2 Mg Capsule) 2 mg PO Q4H PRN PRN Reason: diarrhea Mesalamine (Mesalamine 250 Mg Capsule.Er) 1,000 mg PO QID [facility] Last Admin: 09/12/22 08:49 Dose: 1,000 mg Documented By: JAZMYNE Methadone HCl (Methadone Hcl 20 Mg/2 Ml Oral.Conc) 60 mg PO DAILY [facility] Last Admin: 09/12/22 08:49 Dose: 60 mg Documented By: JAZMYNE Morphine Sulfate (Morphine Sulfate 4 Mg/Ml Cartridge) 2 mg IVPUSH Q4H PRN; Protocol PRN Reason: Pain, Severe (Pain Scale 7-10) Last Admin: 09/11/22 07:59 Dose: 2 mg Documented By: DAMIEN Nicotine (Nicotine 14 Mg Patch.Td24) 14 mg TRANSDERMA DAILY [facility] Last Admin: 09/12/22 08:49 Dose: Not Given Documented By: JAZMYNE Non-Admin Reason: Patient Refused Nicotine Polacrilex (Nicotine Polacrilex 2 Mg Gum) 4 mg BUCCAL Q2H PRN PRN Reason: Nicotine Cravings Omeprazole (Omeprazole 40 Mg Capsule.Dr) 40 mg PO DAILY@0630 [facility] Last Admin: 09/12/22 05:37 Dose: Not Given Documented By: SERG Non-Admin Reason: Patient Refused Ondansetron HCl (Ondansetron Hcl 4 Mg/2 Ml Vial) 4 mg IVPUSH Q8H PRN PRN Reason: Nausea and Vomiting Last Admin: 09/09/22 11:00 Dose: 4 mg Documented By: REBECCA Oxycodone HCl (Oxycodone Hcl Immed Release 5 Mg Tablet) 5 mg PO Q4H PRN PRN Reason: Pain, Moderate(Pain Scale 4-6) Last Admin: 09/12/22 08:47 Dose: 5 mg Documented By: JAZMYNE Pharmacy Consult (Consult Rx Perform Med Rec) 1 each MISCELLANE ONCE PRN PRN Reason: Consult order Prednisone (Prednisone 20 Mg Tablet) 40 mg PO DAILY [facility] Last Admin: 09/12/22 08:47 Dose: 40 mg Documented By: JAZMYNE Quetiapine Fumarate (Quetiapine Fumarate 50 Mg Tablet) 50 mg PO Q4H PRN PRN Reason: AH/agitation Last Admin: 09/09/22 20:04 Dose: 50 mg Documented By: BRODonald Thiamine HCl (Thiamine Hcl 100 Mg Tablet) 100 mg PO DAILY [facility] Last Admin: 09/12/22 08:50 Dose: Not Given Documented By: JAZMYNE Non-Admin Reason: Patient Refused Trazodone HCl (Trazodone Hcl 50 Mg Tablet) 50 mg PO BEDTIME MRX1 PRN PRN Reason: Insomnia Last Admin: 09/08/22 21:35 Dose: 50 mg Documented By: SERG Trazodone HCl (Trazodone Hcl 100 Mg Tablet) 200 mg PO BEDTIME [facility] Last Admin: 09/11/22 22:13 Dose: 200 mg Documented By: SERG Labs 09/10/22 10:09 09/10/22 10:09 Procedures Date of Service Date of Service: 09/12/22 Progress Note: A&P Assessment and plan (1) Colitis: Status: Acute Assessment and Plan: etiology uncertain GI following clinically not obstructed would limit diet to liquids if with diarrhea and pain he looks well otherwise exam remains benign Time Spent With Patient Time: Total time managing care of this patient today ____ minutes. Quality Stroke Does the patient have a stroke diagnosis?: No VTE Prior VTE?: No VTE Risk Level:: Medical - moderate - high VTE Device Contraindication: Treatment Not Indicated VTE Drug Contraindication: N/A - Med Ordered
[2022-09-12 11:21] VITALS: BP 116/76; PULSE 80; RESP 18; TEMP 36.4; O2SAT 100
[2022-09-12 15:48] VITALS: BP 143/83; PULSE 88; RESP 18; TEMP 37.1; O2SAT 97
[2022-09-12] MEDS: oxyCODONE HCl Immed Release 5 MG TABLET 7.5 MG PO ×2 (16:10→21:42)
[2022-09-12 16:22] LABS: CDiff Gene PCR NEGATIVE (Negative)
[2022-09-12 19:44] VITALS: BP 122/79; PULSE 89; RESP 18; TEMP 37.1; O2SAT 97
[2022-09-12] MEDS: Famotidine 20 MG TABLET PO (21:44)
[2022-09-12] MEDS: traZODone HCL 100 MG TABLET 200 MG PO (21:45)
[2022-09-13] MEDS: oxyCODONE HCl Immed Release 5 MG TABLET 7.5 MG PO ×5 (04:15→20:41)
[2022-09-13] MEDS: Omeprazole 40 MG CAPSULE.DR PO (06:38)
[2022-09-13] MEDS: Dicyclomine HCl 10 MG CAPSULE 20 MG PO ×3 (06:38→16:26)
[2022-09-13 07:29] VITALS: BP 115/76; PULSE 88; RESP 20; TEMP 36.8; O2SAT 96
[2022-09-13] MEDS: buPROPion HCl XL 300 MG TAB.ER.24H PO (08:54)
[2022-09-13] MEDS: Acetaminophen 325 MG TABLET 650 MG PO ×3 (08:55→20:40)
[2022-09-13] MEDS: predniSONE 20 MG TABLET 40 MG PO (08:55)
[2022-09-13] MEDS: Mesalamine 250 MG CAPSULE.ER 1000 MG PO ×4 (08:56→20:39)
[2022-09-13] MEDS: amLODIPine Besylate 5 MG TABLET PO (08:57)
[2022-09-13] MEDS: Gabapentin 100 MG CAPSULE PO ×2 (08:57→20:43)
--- NOTE | 2022-09-13 10:13 | PM.PNGS ---
Subjective Subjective Date of Service: 09/18/22 Interval history: says he had of left-sided abdominal pain earlier no nausea or vomiting no diarrhea Physical Exam Vital Signs: Vital Signs: Last Vital Signs Temp 98.3 F 09/13/22 07:29 Pulse 88 09/13/22 07:29 Resp 20 09/13/22 07:29 BP 115/76 09/13/22 07:29 Pulse Ox 96 09/13/22 07:29 O2 Del Method Room Air 09/13/22 07:29 BMI result Body Mass Index 20.9 Const: Other: looks well, comfortable General: comfortable and no acute distress Resp: Effort & Inspection: normal respiratory effort Cardio: Rate: regular rate GI: Other: mild tenderness on left abdomen, no guarding rebound Palpation (GI): Soft to palpation, not firm and no guarding Objective Data Active Medications Acetaminophen (Acetaminophen 325 Mg Tablet) 650 mg PO TID [facility] Last Admin: 09/13/22 08:55 Dose: 650 mg Documented By: JAZMYNE Al Hydroxide/Mg Hydroxide (Magnesium Hydrox/Alum Hydrox 30 Ml Oral.Susp) 30 ml PO Q6H PRN PRN Reason: Heartburn/Nausea Amlodipine Besylate (Amlodipine Besylate 5 Mg Tablet) 5 mg PO DAILY [facility]; Protocol Last Admin: 09/13/22 08:57 Dose: 5 mg Documented By: JAZMYNE Bupropion HCl (Bupropion Hcl Xl 300 Mg Tab.Er.24h) 300 mg PO DAILY [facility] Last Admin: 09/13/22 08:54 Dose: 300 mg Documented By: JAZMYNE Calcium Carbonate (Calcium Carbonate 500 Mg Tablet) 500 mg PO BID [facility] Last Admin: 09/13/22 08:57 Dose: 500 mg Documented By: JAZMYNE Dicyclomine HCl (Dicyclomine Hcl 10 Mg Capsule) 20 mg PO TIDAC [facility] Last Admin: 09/13/22 06:38 Dose: 20 mg Documented By: STEVEN Docusate Sodium (Docusate Sodium 100 Mg Capsule) 100 mg PO DAILY PRN PRN Reason: Constipation Enoxaparin Sodium (Enoxaparin Sodium 40 Mg/0.4 Ml Syringe) 40 mg SUBCUT Q24H [facility] Last Admin: 09/12/22 16:11 Dose: Not Given Documented By: JAZMYNE Non-Admin Reason: Patient Refused Comments: education provided Famotidine (Famotidine 20 Mg Tablet) 20 mg PO BEDTIME [facility] Last Admin: 09/12/22 21:44 Dose: 20 mg Documented By: STEVEN Gabapentin (Gabapentin 100 Mg Capsule) 100 mg PO BID [facility] Last Admin: 09/13/22 08:57 Dose: 100 mg Documented By: JAZMYNE Loperamide HCl (Loperamide Hcl 2 Mg Capsule) 2 mg PO Q4H PRN PRN Reason: diarrhea Mesalamine (Mesalamine 250 Mg Capsule.Er) 1,000 mg PO QID [facility] Last Admin: 09/13/22 08:56 Dose: 1,000 mg Documented By: JAZMYNE Methadone HCl (Methadone Hcl 20 Mg/2 Ml Oral.Conc) 60 mg PO DAILY [facility] Last Admin: 09/12/22 08:49 Dose: 60 mg Documented By: JAZMYNE Nicotine (Nicotine 14 Mg Patch.Td24) 14 mg TRANSDERMA DAILY [facility] Last Admin: 09/13/22 09:08 Dose: Not Given Documented By: JAZMYNE Non-Admin Reason: Patient Refused Nicotine Polacrilex (Nicotine Polacrilex 2 Mg Gum) 4 mg BUCCAL Q2H PRN PRN Reason: Nicotine Cravings Omeprazole (Omeprazole 40 Mg Capsule.Dr) 40 mg PO DAILY@0630 [facility] Last Admin: 09/13/22 06:38 Dose: 40 mg Documented By: STEVEN Ondansetron HCl (Ondansetron Hcl 4 Mg/2 Ml Vial) 4 mg IVPUSH Q8H PRN PRN Reason: Nausea and Vomiting Last Admin: 09/09/22 11:00 Dose: 4 mg Documented By: REBECCA Oxycodone HCl (Oxycodone Hcl Immed Release 5 Mg Tablet) 7.5 mg PO Q4H PRN PRN Reason: Pain, Moderate(Pain Scale 4-6) Last Admin: 09/13/22 08:56 Dose: 7.5 mg Documented By: JAZMYNE Pharmacy Consult (Consult Rx Perform Med Rec) 1 each MISCELLANE ONCE PRN PRN Reason: Consult order Prednisone (Prednisone 20 Mg Tablet) 40 mg PO DAILY [facility] Last Admin: 09/13/22 08:55 Dose: 40 mg Documented By: JAZMYNE Quetiapine Fumarate (Quetiapine Fumarate 50 Mg Tablet) 50 mg PO Q4H PRN PRN Reason: AH/agitation Last Admin: 09/09/22 20:04 Dose: 50 mg Documented By: REBECCA Thiamine HCl (Thiamine Hcl 100 Mg Tablet) 100 mg PO DAILY [facility] Last Admin: 09/13/22 09:08 Dose: Not Given Documented By: JAZMYNE Non-Admin Reason: Patient Refused Trazodone HCl (Trazodone Hcl 50 Mg Tablet) 50 mg PO BEDTIME MRX1 PRN PRN Reason: Insomnia Last Admin: 09/08/22 21:35 Dose: 50 mg Documented By: SERG Trazodone HCl (Trazodone Hcl 100 Mg Tablet) 200 mg PO BEDTIME [facility] Last Admin: 09/12/22 21:45 Dose: 200 mg Documented By: STEVEN Labs 09/10/22 10:09 09/10/22 10:09 Labs: Laboratory Results - last 24 hr 09/12/22 09/12/22 14:35 14:35 Stl C. cayetanensis PCR Cancelled Stool Rotavirus A PCR Cancelled Stl Adenov F 40/41 PCR Cancelled Stool Astrovirus (PCR) Cancelled Stool Campylobacter PCR Cancelled Stool Cryptosporidium PCR Cancelled Stl Sh Tox Pr E STEC PCR Cancelled Stool E coli O157 PCR Cancelled Stl Enterotoxigenic E PCR Cancelled Stool EPEC (PCR) Cancelled Stool EAEC (PCR) Cancelled Stl E. histolytica PCR Cancelled Stool Giardia Lamblia PCR Cancelled Stl P. shigelloides PCR Cancelled Stool Salmonella PCR Cancelled Stool Sapovirus (PCR) Cancelled Stl Shigella/EIEC PCR Cancelled St Y.enterocolitica PCR Cancelled Stool Vibrio (PCR) Cancelled Stl Vibrio cholerae PCR Cancelled Stl Norovirus GI/GII PCR Cancelled C. difficile Tox B Gene NEGATIVE Procedures Date of Service Date of Service: 09/18/22 Progress Note: A&P Assessment and plan (1) Colitis: Status: Acute Assessment and Plan: clinically not obstructed abdomen remained soft and benign CT scan showing colitis and enteritis diet as tolerated GI follow-up exam remains benign Time Spent With Patient Time: Total time managing care of this patient today ____ minutes. Quality Stroke Does the patient have a stroke diagnosis?: No VTE Prior VTE?: No VTE Risk Level:: Medical - moderate - high VTE Device Contraindication: Treatment Not Indicated VTE Drug Contraindication: N/A - Med Ordered
[2022-09-13] MEDS: methADONE HCl 20 MG/2 ML ORAL.CONC 60 MG PO (10:38)
--- NOTE | 2022-09-13 11:08 | HO.PM.IMPN ---
Subjective Subjective Date of Service: 09/13/22 Interval History: Seen and evaluated this morning fairly controlled abd pain and SI tolerating diet No fever or chills No other overnight events Review of Systems Review of Systems: Yes all other systems are reviewed and are negative Physical Exam Vital Signs: Vital Signs: Last Vital Signs Temp 98.3 F 09/13/22 07:29 Pulse 88 09/13/22 07:29 Resp 20 09/13/22 07:29 BP 115/76 09/13/22 07:29 Pulse Ox 96 09/13/22 07:29 O2 Del Method Room Air 09/13/22 07:29 BMI result Body Mass Index 20.9 Const: Other: Constitutional : Awake, interactive, not in distress Neck : Normal inspection, Supple Cardiovascular : RRR, no JVP, no lower extremity edema Respiratory : good bilateral air entry, no crackles, wheezes or rhonchi Gastrointestinal: soft, lax, Normal bowel sounds, mild generalized tenderness with palpation, no surgical signs Skin : Warm, Dry Neurological : Alert & oriented x3, No focal deficit Objective Data Active Medications Acetaminophen (Acetaminophen 325 Mg Tablet) 650 mg PO TID [facility] Last Admin: 09/13/22 08:55 Dose: 650 mg Documented By: JAZMYNE Al Hydroxide/Mg Hydroxide (Magnesium Hydrox/Alum Hydrox 30 Ml Oral.Susp) 30 ml PO Q6H PRN PRN Reason: Heartburn/Nausea Amlodipine Besylate (Amlodipine Besylate 5 Mg Tablet) 5 mg PO DAILY [facility]; Protocol Last Admin: 09/13/22 08:57 Dose: 5 mg Documented By: JAZMYNE Bupropion HCl (Bupropion Hcl Xl 300 Mg Tab.Er.24h) 300 mg PO DAILY [facility] Last Admin: 09/13/22 08:54 Dose: 300 mg Documented By: JAZMYNE Calcium Carbonate (Calcium Carbonate 500 Mg Tablet) 500 mg PO BID [facility] Last Admin: 09/13/22 08:57 Dose: 500 mg Documented By: JAZMYNE Dicyclomine HCl (Dicyclomine Hcl 10 Mg Capsule) 20 mg PO TIDAC [facility] Last Admin: 09/13/22 06:38 Dose: 20 mg Documented By: SONTRRoberto Docusate Sodium (Docusate Sodium 100 Mg Capsule) 100 mg PO DAILY PRN PRN Reason: Constipation Enoxaparin Sodium (Enoxaparin Sodium 40 Mg/0.4 Ml Syringe) 40 mg SUBCUT Q24H [facility] Last Admin: 09/12/22 16:11 Dose: Not Given Documented By: JAZMYNE Non-Admin Reason: Patient Refused Comments: education provided Famotidine (Famotidine 20 Mg Tablet) 20 mg PO BEDTIME [facility] Last Admin: 09/12/22 21:44 Dose: 20 mg Documented By: STEVEN Gabapentin (Gabapentin 100 Mg Capsule) 100 mg PO BID [facility] Last Admin: 09/13/22 08:57 Dose: 100 mg Documented By: JAZMYNE Loperamide HCl (Loperamide Hcl 2 Mg Capsule) 2 mg PO Q4H PRN PRN Reason: diarrhea Mesalamine (Mesalamine 250 Mg Capsule.Er) 1,000 mg PO QID [facility] Last Admin: 09/13/22 08:56 Dose: 1,000 mg Documented By: JAZMYNE Methadone HCl (Methadone Hcl 20 Mg/2 Ml Oral.Conc) 60 mg PO DAILY [facility] Last Admin: 09/13/22 10:38 Dose: 60 mg Documented By: JAZMYNE Nicotine (Nicotine 14 Mg Patch.Td24) 14 mg TRANSDERMA DAILY [facility] Last Admin: 09/13/22 09:08 Dose: Not Given Documented By: JAZMYNE Non-Admin Reason: Patient Refused Nicotine Polacrilex (Nicotine Polacrilex 2 Mg Gum) 4 mg BUCCAL Q2H PRN PRN Reason: Nicotine Cravings Omeprazole (Omeprazole 40 Mg Capsule.Dr) 40 mg PO DAILY@0630 [facility] Last Admin: 09/13/22 06:38 Dose: 40 mg Documented By: STEVEN Ondansetron HCl (Ondansetron Hcl 4 Mg/2 Ml Vial) 4 mg IVPUSH Q8H PRN PRN Reason: Nausea and Vomiting Last Admin: 09/09/22 11:00 Dose: 4 mg Documented By: REBECCA Oxycodone HCl (Oxycodone Hcl Immed Release 5 Mg Tablet) 7.5 mg PO Q4H PRN PRN Reason: Pain, Moderate(Pain Scale 4-6) Last Admin: 09/13/22 08:56 Dose: 7.5 mg Documented By: JAZMYNE Pharmacy Consult (Consult Rx Perform Med Rec) 1 each MISCELLANE ONCE PRN PRN Reason: Consult order Prednisone (Prednisone 20 Mg Tablet) 40 mg PO DAILY [facility] Last Admin: 09/13/22 08:55 Dose: 40 mg Documented By: JAZMYNE Quetiapine Fumarate (Quetiapine Fumarate 50 Mg Tablet) 50 mg PO Q4H PRN PRN Reason: AH/agitation Last Admin: 09/09/22 20:04 Dose: 50 mg Documented By: DOBRODonald Thiamine HCl (Thiamine Hcl 100 Mg Tablet) 100 mg PO DAILY [facility] Last Admin: 09/13/22 09:08 Dose: Not Given Documented By: JAZMYNE Non-Admin Reason: Patient Refused Trazodone HCl (Trazodone Hcl 50 Mg Tablet) 50 mg PO BEDTIME MRX1 PRN PRN Reason: Insomnia Last Admin: 09/08/22 21:35 Dose: 50 mg Documented By: SERG Trazodone HCl (Trazodone Hcl 100 Mg Tablet) 200 mg PO BEDTIME [facility] Last Admin: 09/12/22 21:45 Dose: 200 mg Documented By: STEVEN Labs 09/10/22 10:09 09/10/22 10:09 Labs: Laboratory Results - last 24 hr 09/12/22 09/12/22 14:35 14:35 Stl C. cayetanensis PCR Cancelled Stool Rotavirus A PCR Cancelled Stl Adenov F 40/41 PCR Cancelled Stool Astrovirus (PCR) Cancelled Stool Campylobacter PCR Cancelled Stool Cryptosporidium PCR Cancelled Stl Sh Tox Pr E STEC PCR Cancelled Stool E coli O157 PCR Cancelled Stl Enterotoxigenic E PCR Cancelled Stool EPEC (PCR) Cancelled Stool EAEC (PCR) Cancelled Stl E. histolytica PCR Cancelled Stool Giardia Lamblia PCR Cancelled Stl P. shigelloides PCR Cancelled Stool Salmonella PCR Cancelled Stool Sapovirus (PCR) Cancelled Stl Shigella/EIEC PCR Cancelled St Y.enterocolitica PCR Cancelled Stool Vibrio (PCR) Cancelled Stl Vibrio cholerae PCR Cancelled Stl Norovirus GI/GII PCR Cancelled C. difficile Tox B Gene NEGATIVE Assessment and Plan (1) Colitis: Status: Acute (2) Suicidal ideation: Status: Resolved Plan 47-year-old patient with underlying history of hypertension, IV drug abuse, cocaine abuser, hepatitis-C, depression, PTSD, depression with SI and suicidal attempt, anxiety, acid reflux admitted to medicine from adult psychiatry for further management of intractable abdominal pain with poor p.o. intake. #Intractable abdominal pain likely related to IBD vs ischemic colitis CT abdomen/pelvis with IV contrast showing colitis of the distal transverse colon along with enteritis involving a segment of the distal ileum minimally improved compared to prior studies Stricture noted on colonoscopy not noted on CT. No surgery indicated per GI pain management Regular diet with Ensure, encourage PO intake as tolerated GI input appreciated, Prednisone long taper dose, start with 40mg daily 09/11 and start Pentasa 1 gm QID surgery input appreciated, no intervention needed #Acute encephalopathy toxic metabolic 2/2 medication induced/polypharmacy, resolved improved back to baseline Negative head ct Psychiatry consult appreciated, increase Trazodone PRN Seroquel, low dose Gabapentin Hold sedating medications- seroquel, clonazepam, cyclobenzaprine, gabapentin, hydroxyzine, clonidine (monitor for rebound htn). restart as tolerated. Continue methadone and pain medications as above # Diarrhea check CDiff and stool panel # HTN add Amlodipine as Clonidine dcd #Anorexia due to above mild dehydration Regular diet as tolerated as above #Moderate malnutrition with protein deficiency 50 pound weight loss since passing of in May Albumin 2.4 Add ensure Nutrition consult # Elevated right heart pressure noted on abd CT Echocardiogram showing normal EF w inf segment akinetic #MDD with passive SI Hold sedating medications as above. Can continue trazodone prn bedtime Sitter given SI Psychiatry consult Care team consult trying to arrange for psych floor admission #Polysubstance abuse with opiate dependence continue methadone #Cigarette smoker patches and gum prn for nrt cessation counseling DVT prophylaxis- lovenox Full code Patient requires inpatient stay overnight pending safe discharge plan to psych floor Time Spent With Patient Time: Total time managing care of this patient today ____ minutes. Quality Stroke Does the patient have a stroke diagnosis?: No VTE Prior VTE?: No VTE Risk Level:: Medical - moderate - high VTE Device Contraindication: Treatment Not Indicated VTE Drug Contraindication: N/A - Med Ordered
[2022-09-13 11:16] VITALS: BP 110/70; PULSE 88; RESP 20; TEMP 36.7; O2SAT 96
[2022-09-13 15:00] LABS: Hematocrit 32.8 % (42.0-52.0); Hemoglobin 10.9 g/dl (14.0-18.0); Mean Corpuscular HGB Conc 33.2 g/dl (31.0-36.0); Mean Corpuscular Hemoglobin 30.3 pg (27.0-33.0); Mean Corpuscular Volume 91.1 fL (80.0-98.0); Mean Platelet Volume 8.2 fL (9.4-12.4); Platelet Count 577 X10*3/uL (160-400); Red Cell Distribution Width 14.9 % (11.0-16.0); White Blood Count 8.9 X10*3/uL (4.8-10.8)
[2022-09-13 15:53] VITALS: BP 157/70; PULSE 97; RESP 18; TEMP 37; O2SAT 95
--- NOTE | 2022-09-13 18:38 | PC.NURSE ---
Patient is alert an oriented to place, self, time , and event. Patient states he is still having on going left abdominal pain prn oxycodone given through out day to help alleviate pain. See MAR. Patient expressed suicidal ideation at dinner time, patient anxious, but refused medication. [address] in [address].
[2022-09-13 19:51] VITALS: BP 111/69; PULSE 81; RESP 18; TEMP 37.1; O2SAT 98
[2022-09-13] MEDS: traZODone HCL 100 MG TABLET 200 MG PO (20:40)
[2022-09-13] MEDS: Famotidine 20 MG TABLET PO (20:40)
[2022-09-14] MEDS: oxyCODONE HCl Immed Release 5 MG TABLET 7.5 MG PO ×2 (00:44→08:09)
[2022-09-14 07:34] LABS: Prometheus IBD SGI SEE COMMENTS
[2022-09-14] MEDS: predniSONE 20 MG TABLET 40 MG PO (08:09)
[2022-09-14] MEDS: buPROPion HCl XL 300 MG TAB.ER.24H PO (08:09)
[2022-09-14] MEDS: Mesalamine 250 MG CAPSULE.ER 1000 MG PO ×4 (08:09→21:01)
[2022-09-14] MEDS: Acetaminophen 325 MG TABLET 650 MG PO ×2 (08:10→14:35)
[2022-09-14] MEDS: Gabapentin 100 MG CAPSULE PO ×2 (08:10→21:00)
[2022-09-14] MEDS: Dicyclomine HCl 10 MG CAPSULE 20 MG PO ×3 (08:10→16:30)
[2022-09-14] MEDS: amLODIPine Besylate 5 MG TABLET PO (08:10)
[2022-09-14] MEDS: methADONE HCl 20 MG/2 ML ORAL.CONC 60 MG PO (09:55)
[2022-09-14] MEDS: Simethicone 80 MG TAB.CHEW PO (09:58)
--- NOTE | 2022-09-14 10:21 | MHC.CLN ---
F/U PT IS MODERATELY MALNOURISHED SEE FULL CLINICAL NUTRITION ASSESSMENT DATED 09/09/22 PO INTAKE VARIABLE DIET RX: REGULAR-APPROPRIATE PT RECEIVING ENSURE TID TO PROVIDE 1050KCALS, 60G PROTEIN WITH 100% ACCEPTANCE IN ADDITION, THRIVE ICE CREAM TO [employer] PROVIDES 810KCALS, 27G PROTEIN WEEKLY WEIGHTS CONTINUE STRICT PO INTAKE
[2022-09-14] MEDS: oxyCODONE HCl Immed Release 5 MG TABLET 10 MG PO ×3 (10:53→18:37)
--- NOTE | 2022-09-14 11:31 | MHC.CM.PN ---
EMR reviewed and per MD rounds, pt awaiting transfer to psychiatric unit, pending an available male bed. CM will continue to follow.
[2022-09-14 11:51] VITALS: BP 124/85; PULSE 93; RESP 20; TEMP 36.5; O2SAT 96
--- NOTE | 2022-09-14 12:34 | P.PNIM_ITS ---
Subjective Subjective Date of Service: 09/14/22 Interval History: Seen and evaluated this morning still reporting abdominal pain and decrease PO intake requiring more pain meds No fever or chills No other overnight events Review of Systems Review of Systems: Yes all other systems are reviewed and are negative Physical Exam Vital Signs: Vital Signs: Last Vital Signs Temp 97.7 F 09/14/22 11:51 Pulse 93 09/14/22 11:51 Resp 20 09/14/22 11:51 BP 124/85 09/14/22 11:51 Pulse Ox 96 09/14/22 11:51 O2 Del Method Room Air 09/14/22 11:51 BMI result Body Mass Index 20.9 Const: Other: Constitutional : Awake, interactive, not in distress Neck : Normal inspection, Supple Cardiovascular : RRR, no JVP, no lower extremity edema Respiratory : good bilateral air entry, no crackles, wheezes or rhonchi Gastrointestinal: soft, lax, Normal bowel sounds, mild generalized tenderness with palpation, no surgical signs Skin : Warm, Dry Neurological : Alert & oriented x3, No focal deficit Objective Data Active Medications Acetaminophen (Acetaminophen 325 Mg Tablet) 650 mg PO TID [facility] Last Admin: 09/14/22 08:10 Dose: 650 mg Documented By: DAPHNE Al Hydroxide/Mg Hydroxide (Magnesium Hydrox/Alum Hydrox 30 Ml Oral.Susp) 30 ml PO Q6H PRN PRN Reason: Heartburn/Nausea Amlodipine Besylate (Amlodipine Besylate 5 Mg Tablet) 5 mg PO DAILY [facility]; Protocol Last Admin: 09/14/22 08:10 Dose: 5 mg Documented By: DAPHNE Bupropion HCl (Bupropion Hcl Xl 300 Mg Tab.Er.24h) 300 mg PO DAILY [facility] Last Admin: 09/14/22 08:09 Dose: 300 mg Documented By: DAPHNE Calcium Carbonate (Calcium Carbonate 500 Mg Tablet) 500 mg PO BID [facility] Last Admin: 09/14/22 08:18 Dose: Not Given Documented By: DAPHNE Non-Admin Reason: Patient Refused Dicyclomine HCl (Dicyclomine Hcl 10 Mg Capsule) 20 mg PO TIDAC [facility] Last Admin: 09/14/22 12:22 Dose: 20 mg Documented By: DAPHNE Docusate Sodium (Docusate Sodium 100 Mg Capsule) 100 mg PO DAILY PRN PRN Reason: Constipation Enoxaparin Sodium (Enoxaparin Sodium 40 Mg/0.4 Ml Syringe) 40 mg SUBCUT Q24H [facility] Last Admin: 09/14/22 12:25 Dose: Not Given Documented By: DAPHNE Non-Admin Reason: Patient Refused Famotidine (Famotidine 20 Mg Tablet) 20 mg PO BEDTIME [facility] Last Admin: 09/13/22 20:40 Dose: 20 mg Documented By: ARISTEO Gabapentin (Gabapentin 100 Mg Capsule) 100 mg PO BID [facility] Last Admin: 09/14/22 08:10 Dose: 100 mg Documented By: DAPHNE Loperamide HCl (Loperamide Hcl 2 Mg Capsule) 2 mg PO Q4H PRN PRN Reason: diarrhea Mesalamine (Mesalamine 250 Mg Capsule.Er) 1,000 mg PO QID [facility] Last Admin: 09/14/22 12:22 Dose: 1,000 mg Documented By: DAPHNE Methadone HCl (Methadone Hcl 20 Mg/2 Ml Oral.Conc) 65 mg PO DAILY [facility] Nicotine (Nicotine 14 Mg Patch.Td24) 14 mg TRANSDERMA DAILY [facility] Last Admin: 09/14/22 08:19 Dose: Not Given Documented By: DAPHNE Non-Admin Reason: Patient Refused Nicotine Polacrilex (Nicotine Polacrilex 2 Mg Gum) 4 mg BUCCAL Q2H PRN PRN Reason: Nicotine Cravings Omeprazole (Omeprazole 40 Mg Capsule.Dr) 40 mg PO DAILY@0630 [facility] Last Admin: 09/14/22 03:47 Dose: Not Given Documented By: ARISTEO Non-Admin Reason: Patient Refused Ondansetron HCl (Ondansetron Hcl 4 Mg/2 Ml Vial) 4 mg IVPUSH Q8H PRN PRN Reason: Nausea and Vomiting Last Admin: 09/09/22 11:00 Dose: 4 mg Documented By: DOBROB Oxycodone HCl (Oxycodone Hcl Immed Release 5 Mg Tablet) 10 mg PO Q4H PRN PRN Reason: Pain, Moderate(Pain Scale 4-6) Last Admin: 09/14/22 10:53 Dose: 10 mg Documented By: DAPHNE Pharmacy Consult (Consult Rx Perform Med Rec) 1 each MISCELLANE ONCE PRN PRN Reason: Consult order Prednisone (Prednisone 20 Mg Tablet) 40 mg PO DAILY [facility] Last Admin: 09/14/22 08:09 Dose: 40 mg Documented By: DAPHNE Quetiapine Fumarate (Quetiapine Fumarate 50 Mg Tablet) 50 mg PO Q4H PRN PRN Reason: AH/agitation Last Admin: 09/09/22 20:04 Dose: 50 mg Documented By: DOBROB Simethicone (Simethicone 80 Mg Tab.Chew) 80 mg PO QIDWMHS [facility] Last Admin: 09/14/22 12:24 Dose: Not Given Documented By: DAPHNE Non-Admin Reason: refused Thiamine HCl (Thiamine Hcl 100 Mg Tablet) 100 mg PO DAILY [facility] Last Admin: 09/14/22 08:18 Dose: Not Given Documented By: DAPHNE Non-Admin Reason: Patient Refused Trazodone HCl (Trazodone Hcl 50 Mg Tablet) 50 mg PO BEDTIME MRX1 PRN PRN Reason: Insomnia Last Admin: 09/08/22 21:35 Dose: 50 mg Documented By: SERG Trazodone HCl (Trazodone Hcl 100 Mg Tablet) 200 mg PO BEDTIME [facility] Last Admin: 09/13/22 20:40 Dose: 200 mg Documented By: RAINAS Labs 09/13/22 14:47 09/10/22 10:09 Labs: Laboratory Results - last 24 hr 09/09/22 09/13/22 06:31 14:47 MCV 91.1 MCH 30.3 MCHC 33.2 RDW 14.9 Plt Count 577 H MPV 8.2 L Absolute Nucleated RBC 0.000 Nucleated RBC % (auto) 0.0 IBD SGI Markers SEE COMMENTS Microbiology Microbiology Results: Microbiology 09/08/22 18:28 Blood Culture - Final Blood - Venous No growth after 5 days. 09/08/22 18:28 Blood Culture - Final Blood - Venous No growth after 5 days. Assessment and Plan (1) Intractable abdominal pain: Status: Acute (2) Colitis: Status: Acute Plan 47-year-old patient with underlying history of hypertension, IV drug abuse, cocaine abuser, hepatitis-C, depression, PTSD, depression with SI and suicidal attempt, anxiety, acid reflux admitted to medicine from adult psychiatry for further management of intractable abdominal pain with poor p.o. intake. #Intractable abdominal pain likely related to IBD with positive markers Regular diet with Ensure Increase OXycodone dose repeat CT scan with contrast GI input appreciated, Prednisone long taper dose, start with 40mg daily 09/11 Pentasa 1 gm QID surgery input appreciated, no intervention needed #Acute encephalopathy toxic metabolic 2/2 medication induced/polypharmacy, resolved Psychiatry consult appreciated, increase Trazodone PRN Seroquel, low dose Gabapentin Hold sedating medications- seroquel, clonazepam, cyclobenzaprine, gabapentin, hydroxyzine, clonidine (monitor for rebound htn). restart as tolerated. Continue methadone and pain medications as above # Diarrhea -ve CDiff and stool panel # HTN better with Amlodipine as Clonidine dcd #Anorexia due to above mild dehydration Regular diet as tolerated as above #Moderate malnutrition with protein deficiency 50 pound weight loss since passing of in May Albumin 2.4 Add ensure Nutrition consult # Elevated right heart pressure noted on abd CT Echocardiogram showing normal EF w inf segment akinetic #MDD with passive SI Hold sedating medications as above. Can continue trazodone prn bedtime Sitter given SI Psychiatry consult Care team consult trying to arrange for psych floor admission #Polysubstance abuse with opiate dependence continue methadone #Cigarette smoker patches and gum prn for nrt cessation counseling DVT prophylaxis- lovenox Full code Patient requires inpatient stay overnight pending safe discharge plan to psych floor Time Spent With Patient Time: Total time managing care of this patient today ____ minutes. Quality Stroke Does the patient have a stroke diagnosis?: No VTE Prior VTE?: No VTE Risk Level:: Medical - moderate - high VTE Device Contraindication: Treatment Not Indicated VTE Drug Contraindication: N/A - Med Ordered
[2022-09-14 15:17] VITALS: BP 110/71; PULSE 79; RESP 18; TEMP 36.7; O2SAT 98
[2022-09-14] MEDS: Famotidine 20 MG TABLET PO (21:01)
[2022-09-14] MEDS: traZODone HCL 100 MG TABLET 200 MG PO (21:01)
[2022-09-15] MEDS: oxyCODONE HCl Immed Release 5 MG TABLET 10 MG PO ×5 (01:04→21:45)
[2022-09-15 07:33] VITALS: BP 109/70; PULSE 100; RESP 20; TEMP 37.6; O2SAT 94
[2022-09-15] MEDS: Docusate Sodium 100 MG CAPSULE PO (09:16)
[2022-09-15] MEDS: predniSONE 20 MG TABLET 40 MG PO (09:16)
[2022-09-15] MEDS: buPROPion HCl XL 300 MG TAB.ER.24H PO (09:16)
[2022-09-15] MEDS: Gabapentin 100 MG CAPSULE PO ×2 (09:16→21:38)
[2022-09-15] MEDS: amLODIPine Besylate 5 MG TABLET PO (09:16)
[2022-09-15] MEDS: Mesalamine 250 MG CAPSULE.ER 1000 MG PO ×4 (09:16→21:38)
[2022-09-15] MEDS: Lactulose 20 GM/30 ML SOLUTION PO ×2 (09:24→21:36)
[2022-09-15] MEDS: Dicyclomine HCl 10 MG CAPSULE 20 MG PO ×3 (09:24→16:23)
[2022-09-15] MEDS: methADONE HCl 20 MG/2 ML ORAL.CONC 65 MG PO (09:27)
[2022-09-15] MEDS: Acetaminophen 325 MG TABLET 650 MG PO ×3 (10:48→21:36)
[2022-09-15 11:19] VITALS: BP 121/66; PULSE 85; RESP 20; TEMP 36.7; O2SAT 96
--- NOTE | 2022-09-15 12:55 | P.PNIM_ITS ---
Subjective Subjective Date of Service: 09/15/22 Interval History: Seen and evaluated this morning reporting abdominal pain , requiring pain meds CT scan showing improvement since last study No fever or chills No other overnight events Review of Systems Review of Systems: Yes all other systems are reviewed and are negative Physical Exam Vital Signs: Vital Signs: Last Vital Signs Temp 98.0 F 09/15/22 11:19 Pulse 85 09/15/22 11:19 Resp 20 09/15/22 11:19 BP 121/66 09/15/22 11:19 Pulse Ox 96 09/15/22 11:19 O2 Del Method Room Air 09/15/22 11:19 BMI result Body Mass Index 20.9 Const: Other: Constitutional : Awake, interactive, not in distress Neck : Normal inspection, Supple Cardiovascular : RRR, no JVP, no lower extremity edema Respiratory : good bilateral air entry, no crackles, wheezes or rhonchi Gastrointestinal: soft, lax, Normal bowel sounds, mild generalized tenderness with palpation, no surgical signs Skin : Warm, Dry Neurological : Alert & oriented x3, No focal deficit Objective Data Active Medications Acetaminophen (Acetaminophen 325 Mg Tablet) 650 mg PO TID [facility] Last Admin: 09/15/22 10:48 Dose: 650 mg Documented By: NATANAEL Al Hydroxide/Mg Hydroxide (Magnesium Hydrox/Alum Hydrox 30 Ml Oral.Susp) 30 ml PO Q6H PRN PRN Reason: Heartburn/Nausea Amlodipine Besylate (Amlodipine Besylate 5 Mg Tablet) 5 mg PO DAILY [facility]; Protocol Last Admin: 09/15/22 09:16 Dose: 5 mg Documented By: NATANAEL Bupropion HCl (Bupropion Hcl Xl 300 Mg Tab.Er.24h) 300 mg PO DAILY [facility] Last Admin: 09/15/22 09:16 Dose: 300 mg Documented By: NATANAEL Calcium Carbonate (Calcium Carbonate 500 Mg Tablet) 500 mg PO BID [facility] Last Admin: 09/15/22 09:19 Dose: Not Given Documented By: NATANAEL Non-Admin Reason: Patient Refused Dicyclomine HCl (Dicyclomine Hcl 10 Mg Capsule) 20 mg PO TIDAC [facility] Last Admin: 09/15/22 12:37 Dose: 20 mg Documented By: DOBROB Docusate Sodium (Docusate Sodium 100 Mg Capsule) 100 mg PO DAILY [facility] Last Admin: 09/15/22 09:16 Dose: 100 mg Documented By: NATANAEL Enoxaparin Sodium (Enoxaparin Sodium 40 Mg/0.4 Ml Syringe) 40 mg SUBCUT Q24H [facility] Last Admin: 09/14/22 12:25 Dose: Not Given Documented By: DAPHNE Non-Admin Reason: Patient Refused Famotidine (Famotidine 20 Mg Tablet) 20 mg PO BEDTIME [facility] Last Admin: 09/14/22 21:01 Dose: 20 mg Documented By: ARGENTINA Gabapentin (Gabapentin 100 Mg Capsule) 100 mg PO BID [facility] Last Admin: 09/15/22 09:16 Dose: 100 mg Documented By: NATANAEL Lactulose (Lactulose 20 Gm/30 Ml Solution) 20 gm PO BID [facility] Last Admin: 09/15/22 09:24 Dose: 20 gm Documented By: NATANAEL Loperamide HCl (Loperamide Hcl 2 Mg Capsule) 2 mg PO Q4H PRN PRN Reason: diarrhea Mesalamine (Mesalamine 250 Mg Capsule.Er) 1,000 mg PO QID [facility] Last Admin: 09/15/22 12:38 Dose: 1,000 mg Documented By: REBECCA Methadone HCl (Methadone Hcl 20 Mg/2 Ml Oral.Conc) 65 mg PO DAILY [facility] Last Admin: 09/15/22 09:27 Dose: 65 mg Documented By: NATANAEL Nicotine (Nicotine 14 Mg Patch.Td24) 14 mg TRANSDERMA DAILY [facility] Last Admin: 09/15/22 09:20 Dose: Not Given Documented By: NATANAEL Non-Admin Reason: Patient Refused Nicotine Polacrilex (Nicotine Polacrilex 2 Mg Gum) 4 mg BUCCAL Q2H PRN PRN Reason: Nicotine Cravings Omeprazole (Omeprazole 40 Mg Capsule.Dr) 40 mg PO DAILY@0630 [facility] Last Admin: 09/15/22 05:33 Dose: Not Given Documented By: CADE Non-Admin Reason: Patient Refused Ondansetron HCl (Ondansetron Hcl 4 Mg/2 Ml Vial) 4 mg IVPUSH Q8H PRN PRN Reason: Nausea and Vomiting Last Admin: 09/09/22 11:00 Dose: 4 mg Documented By: REBECCA Oxycodone HCl (Oxycodone Hcl Immed Release 5 Mg Tablet) 10 mg PO Q4H PRN PRN Reason: Pain, Moderate(Pain Scale 4-6) Last Admin: 09/15/22 10:47 Dose: 10 mg Documented By: NATANAEL Pharmacy Consult (Consult Rx Perform Med Rec) 1 each MISCELLANE ONCE PRN PRN Reason: Consult order Prednisone (Prednisone 20 Mg Tablet) 40 mg PO DAILY [facility] Last Admin: 09/15/22 09:16 Dose: 40 mg Documented By: NATANAEL Quetiapine Fumarate (Quetiapine Fumarate 50 Mg Tablet) 50 mg PO Q4H PRN PRN Reason: AH/agitation Last Admin: 09/09/22 20:04 Dose: 50 mg Documented By: BRODonald Simethicone (Simethicone 80 Mg Tab.Chew) 80 mg PO QIDWMHS [facility] Last Admin: 09/15/22 12:39 Dose: Not Given Documented By: REBECCA Non-Admin Reason: Patient Refused Thiamine HCl (Thiamine Hcl 100 Mg Tablet) 100 mg PO DAILY [facility] Last Admin: 09/15/22 09:20 Dose: Not Given Documented By: NATANAEL Non-Admin Reason: Patient Refused Trazodone HCl (Trazodone Hcl 50 Mg Tablet) 50 mg PO BEDTIME MRX1 PRN PRN Reason: Insomnia Last Admin: 09/08/22 21:35 Dose: 50 mg Documented By: SERG Trazodone HCl (Trazodone Hcl 100 Mg Tablet) 200 mg PO BEDTIME [facility] Last Admin: 09/14/22 21:01 Dose: 200 mg Documented By: ARGENTINA Labs 09/13/22 14:47 09/10/22 10:09 Assessment and Plan (1) Colitis: Status: Acute (2) Intractable abdominal pain: Status: Acute (3) Acute encephalopathy: Status: Acute Plan 47-year-old patient with underlying history of hypertension, IV drug abuse, cocaine abuser, hepatitis-C, depression, PTSD, depression with SI and suicidal attempt, anxiety, acid reflux admitted to medicine from adult psychiatry for further management of intractable abdominal pain with poor p.o. intake. #Intractable abdominal pain likely related to IBD with positive markers Regular diet with Ensure Increase OXycodone dose repeated CT scan showing interval improvement in bowel inflammation. constip ation. GI input appreciated, Prednisone long taper dose, started on 40mg daily 09/11 Pentasa 1 gm QID surgery input appreciated, no intervention needed #Acute encephalopathy toxic metabolic 2/2 medication induced/polypharmacy, resolved Psychiatry consult appreciated, increase Trazodone PRN Seroquel, low dose Gabapentin Hold sedating medications- seroquel, clonazepam, cyclobenzaprine, gabapentin, hydroxyzine, clonidine (monitor for rebound htn). restart as tolerated. Continue methadone and pain medications as above # Diarrhea -ve CDiff and stool panel # HTN better with Amlodipine as Clonidine dcd #Anorexia due to above mild dehydration Regular diet as tolerated as above #Moderate malnutrition with protein deficiency 50 pound weight loss since passing of in May Albumin 2.4 Add ensure Nutrition consult # Elevated right heart pressure noted on abd CT Echocardiogram showing normal EF w inf segment akinetic #MDD with passive SI Hold sedating medications as above. Can continue trazodone prn bedtime Sitter given SI Psychiatry consult Care team consult trying to arrange for psych floor admission #Polysubstance abuse with opiate dependence continue methadone #Cigarette smoker patches and gum prn for nrt cessation counseling DVT prophylaxis- lovenox Full code Patient requires inpatient stay overnight pending safe discharge plan to psych floor Time Spent With Patient Time: Total time managing care of this patient today ____ minutes. Quality Stroke Does the patient have a stroke diagnosis?: No VTE Prior VTE?: No VTE Risk Level:: Medical - moderate - high VTE Device Contraindication: Treatment Not Indicated VTE Drug Contraindication: N/A - Med Ordered
[2022-09-15 15:47] VITALS: BP 116/73; PULSE 69; RESP 14; TEMP 36.3; O2SAT 97
[2022-09-15] MEDS: clonazePAM 0.5 MG TABLET 0.25 MG PO (16:22)
[2022-09-15 19:28] VITALS: BP 112/69; PULSE 76; RESP 14; TEMP 36.4; O2SAT 96
[2022-09-15] MEDS: Famotidine 20 MG TABLET PO (21:38)
[2022-09-15] MEDS: Simethicone 80 MG TAB.CHEW PO (21:39)
[2022-09-15] MEDS: traZODone HCL 100 MG TABLET 200 MG PO (21:39)
[2022-09-16] VITALS: RESP 15
[2022-09-16] MEDS: oxyCODONE HCl Immed Release 5 MG TABLET 10 MG PO ×5 (01:56→18:01)
[2022-09-16 04:00] VITALS: RESP 16
[2022-09-16] MEDS: Omeprazole 40 MG CAPSULE.DR PO (06:00)
[2022-09-16] MEDS: Mesalamine 250 MG CAPSULE.ER 1000 MG PO ×2 (09:08→18:01)
[2022-09-16] MEDS: Dicyclomine HCl 10 MG CAPSULE 20 MG PO ×2 (09:08→15:47)
[2022-09-16] MEDS: predniSONE 20 MG TABLET 40 MG PO (09:08)
[2022-09-16] MEDS: buPROPion HCl XL 300 MG TAB.ER.24H PO (09:08)
[2022-09-16] MEDS: Gabapentin 100 MG CAPSULE PO (09:08)
[2022-09-16] MEDS: methADONE HCl 20 MG/2 ML ORAL.CONC 65 MG PO (09:09)
[2022-09-16] MEDS: Docusate Sodium 100 MG CAPSULE PO (09:09)
[2022-09-16] MEDS: clonazePAM 0.5 MG TABLET 0.25 MG PO ×2 (10:02→16:25)
[2022-09-16] MEDS: Acetaminophen 325 MG TABLET 650 MG PO ×2 (10:02→14:08)
--- NOTE | 2022-09-16 10:59 | P.PNIM_ITS ---
Subjective Subjective Date of Service: 09/16/22 Interval History: abd pain the same Physical Exam Vital Signs: Vital Signs: Last Vital Signs Temp 97.6 F 09/15/22 19:28 Pulse 76 09/15/22 19:28 Resp 16 09/16/22 04:00 BP 112/69 09/15/22 19:28 Pulse Ox 96 09/15/22 19:28 O2 Del Method Room Air 09/15/22 19:28 BMI result Body Mass Index 20.9 Const: Other: Constitutional : Awake, interactive, not in distress Neck : Normal inspection, Supple Cardiovascular : RRR, no JVP, no lower extremity edema Respiratory : good bilateral air entry, no crackles, wheezes or rhonchi Gastrointestinal: soft, lax, Normal bowel sounds, mild generalized tenderness with palpation, no surgical signs Skin : Warm, Dry Neurological : Alert & oriented x3, No focal deficit Objective Data Active Medications Acetaminophen (Acetaminophen 325 Mg Tablet) 650 mg PO TID [facility] Last Admin: 09/16/22 10:02 Dose: 650 mg Documented By: REBECCA Al Hydroxide/Mg Hydroxide (Magnesium Hydrox/Alum Hydrox 30 Ml Oral.Susp) 30 ml PO Q6H PRN PRN Reason: Heartburn/Nausea Amlodipine Besylate (Amlodipine Besylate 5 Mg Tablet) 5 mg PO DAILY [facility]; Protocol Last Admin: 09/16/22 09:04 Dose: Not Given Documented By: REBECCA Non-Admin Reason: Patient Refused Bupropion HCl (Bupropion Hcl Xl 300 Mg Tab.Er.24h) 300 mg PO DAILY [facility] Last Admin: 09/16/22 09:08 Dose: 300 mg Documented By: REBECCA Calcium Carbonate (Calcium Carbonate 500 Mg Tablet) 500 mg PO BID [facility] Last Admin: 09/16/22 08:57 Dose: Not Given Documented By: REBECCA Non-Admin Reason: Patient Refused Clonazepam (Clonazepam 0.5 Mg Tablet) 0.25 mg PO TID PRN PRN Reason: anxiety Last Admin: 09/16/22 10:02 Dose: 0.25 mg Documented By: REBECCA Dicyclomine HCl (Dicyclomine Hcl 10 Mg Capsule) 20 mg PO TIDAC [facility] Last Admin: 09/16/22 09:08 Dose: 20 mg Documented By: REBECCA Docusate Sodium (Docusate Sodium 100 Mg Capsule) 100 mg PO DAILY [facility] Last Admin: 09/16/22 09:09 Dose: 100 mg Documented By: REBECCA Enoxaparin Sodium (Enoxaparin Sodium 40 Mg/0.4 Ml Syringe) 40 mg SUBCUT Q24H [facility] Last Admin: 09/15/22 14:21 Dose: Not Given Documented By: REBECCA Non-Admin Reason: Patient Refused Famotidine (Famotidine 20 Mg Tablet) 20 mg PO BEDTIME [facility] Last Admin: 09/15/22 21:38 Dose: 20 mg Documented By: STEVEN Gabapentin (Gabapentin 100 Mg Capsule) 100 mg PO BID [facility] Last Admin: 09/16/22 09:08 Dose: 100 mg Documented By: REBECCA Lactulose (Lactulose 20 Gm/30 Ml Solution) 20 gm PO BID [facility] Last Admin: 09/16/22 09:15 Dose: Not Given Documented By: REBECCA Non-Admin Reason: Patient Refused Loperamide HCl (Loperamide Hcl 2 Mg Capsule) 2 mg PO Q4H PRN PRN Reason: diarrhea Mesalamine (Mesalamine 250 Mg Capsule.Er) 1,000 mg PO QID [facility] Last Admin: 09/16/22 09:08 Dose: 1,000 mg Documented By: REBECCA Methadone HCl (Methadone Hcl 20 Mg/2 Ml Oral.Conc) 65 mg PO DAILY [facility] Last Admin: 09/16/22 09:09 Dose: 65 mg Documented By: REBECCA Nicotine (Nicotine 14 Mg Patch.Td24) 14 mg TRANSDERMA DAILY [facility] Last Admin: 09/16/22 08:58 Dose: Not Given Documented By: REBECCA Non-Admin Reason: Patient Refused Nicotine Polacrilex (Nicotine Polacrilex 2 Mg Gum) 4 mg BUCCAL Q2H PRN PRN Reason: Nicotine Cravings Omeprazole (Omeprazole 40 Mg Capsule.Dr) 40 mg PO DAILY@0630 [facility] Last Admin: 09/16/22 06:00 Dose: 40 mg Documented By: STEVEN Ondansetron HCl (Ondansetron Hcl 4 Mg/2 Ml Vial) 4 mg IVPUSH Q8H PRN PRN Reason: Nausea and Vomiting Last Admin: 09/09/22 11:00 Dose: 4 mg Documented By: REBECCA Oxycodone HCl (Oxycodone Hcl Immed Release 5 Mg Tablet) 10 mg PO Q4H PRN PRN Reason: Pain, Moderate(Pain Scale 4-6) Last Admin: 09/16/22 09:59 Dose: 10 mg Documented By: REBECCA Pharmacy Consult (Consult Rx Perform Med Rec) 1 each MISCELLANE ONCE PRN PRN Reason: Consult order Prednisone (Prednisone 20 Mg Tablet) 40 mg PO DAILY [facility] Last Admin: 09/16/22 09:08 Dose: 40 mg Documented By: REBECCA Quetiapine Fumarate (Quetiapine Fumarate 50 Mg Tablet) 50 mg PO Q4H PRN PRN Reason: AH/agitation Last Admin: 09/09/22 20:04 Dose: 50 mg Documented By: REBECCA Simethicone (Simethicone 80 Mg Tab.Chew) 80 mg PO QIDWMHS [facility] Last Admin: 09/16/22 08:57 Dose: Not Given Documented By: REBECCA Non-Admin Reason: Patient Refused Thiamine HCl (Thiamine Hcl 100 Mg Tablet) 100 mg PO DAILY [facility] Last Admin: 09/16/22 08:59 Dose: Not Given Documented By: REBECCA Non-Admin Reason: Patient Refused Trazodone HCl (Trazodone Hcl 50 Mg Tablet) 50 mg PO BEDTIME MRX1 PRN PRN Reason: Insomnia Last Admin: 09/08/22 21:35 Dose: 50 mg Documented By: SERG Trazodone HCl (Trazodone Hcl 100 Mg Tablet) 200 mg PO BEDTIME [facility] Last Admin: 09/15/22 21:39 Dose: 200 mg Documented By: STEVEN Labs 09/13/22 14:47 09/10/22 10:09 Assessment and Plan (1) Colitis: Status: Acute (2) Intractable abdominal pain: Status: Acute (3) Acute encephalopathy: Status: Acute Plan 47M PMH hypertension, IV drug abuse, cocaine abuser, hepatitis-C, PTSD, depression with SI and suicidal attempt, anxiety, acid reflux admitted to medicine from adult psychiatry for further management of intractable abdominal pain with poor p.o. intake. Intractable abdominal pain likely related to IBD Regular diet with Ensure repeated CT scan showing interval improvement in bowel inflammation. constipation. GI input appreciated, Prednisone long taper dose, started on 40mg daily 09/11 Pentasa 1 gm QID surgery input appreciated, no intervention needed Acute encephalopathy toxic metabolic 2/2 medication induced/polypharmacy, resolved Psychiatry consult appreciated, increase Trazodone PRN Seroquel, low dose Gabapentin Holding sedating medications- seroquel, clonazepam, cyclobenzaprine, gabapentin, hydroxyzine, clonidine Continue methadone and pain medications as above Diarrhea -ve CDiff and stool panel HTN amlodipine Anorexia, moderate protein calorie malnutrition related to IBD and depression 50 pound weight loss since passing of in May ensure basal inferior akinesis on echo outpaitent stress test with cardiology MDD with passive SI Hold sedating medications as above. Can continue trazodone prn bedtime Sitter given SI pending psych placement Polysubstance abuse with opiate dependence continue methadone Cigarette smoker patches and gum prn for nrt cessation counseling DVT prophylaxis- lovenox Full code Patient requires inpatient stay overnight pending safe discharge plan to psych floor Time Spent With Patient Time: Total time managing care of this patient today ____ minutes. Quality Stroke Does the patient have a stroke diagnosis?: No VTE Prior VTE?: No VTE Risk Level:: Medical - moderate - high VTE Device Contraindication: Treatment Not Indicated VTE Drug Contraindication: N/A - Med Ordered
[2022-09-16 11:52] VITALS: BP 118/69; PULSE 87; RESP 20; TEMP 36.4; O2SAT 97
--- NOTE | 2022-09-16 12:08 | MHC.CLN ---
F/U PT IS MODERATELY MALNOURISHED SEE FULL CLINICAL NUTRITION ASSESSMENT DATED 09/09/22 PO INTAKE CONTINUES TO BE VARIABLE RANGING FROM 0-100% DIET RX: REGULAR-APPROPRIATE PT RECEIVING ENSURE TID TO PROVIDE 1050KCALS, 60G PROTEIN WITH 100% ACCEPTANCE IN ADDITION, THRIVE ICE CREAM TO MEAL TRAYS PROVIDES 810KCALS, 27G PROTEIN PT CONTINUES TO C/O OF ABDOMINAL PAIN AND REFUSES TO TAKE NUTRITION SUPPLEMENTS PT REFUSED ALL OTHER SUPPLEMENTS OFFERED PT WITH POOR PO R/T ABDOMINAL PAIN SINCE 08/31 CONSIDER PPN OR ALTERNATIVE NUTRITION; RECOMMEND D10AA4.25 AT 40ML/HR TO PROVIDE 490KCLAS, 41G PROTEIN WEEKLY WEIGHTS CONTINUE STRICT PO INTAKE AWAITING TRANSFER BACK TO ADULT PSYCH-PLEASE CONSULT RD IF NEEDED
--- NOTE | 2022-09-16 12:22 | MHC.CARE ---
Patient seen by CARE team for level of care assessment, continues to report he is not good, minimally engaged throughout assessment though appears to continue to seek inpatient psych for stabilization.
--- NOTE | 2022-09-16 14:56 | MHC.CM.PN ---
EMR reviewed and per MD rounds, pt still awaiting transfer to psychiatric unit, pending an available male bed. CM will continue to follow.
--- NOTE | 2022-09-16 16:22 | PM.DS ---
DS: Providers Provider Date of Service: 09/16/22 Date of admission: 09/08/22 16:10 Primary care physician: Clotilde Nguyen MD Consults: 09/08/22 15:48 Consult for Sitter Routine Reason for consultation: SI 09/08/22 15:50 Consult to Gastroenterology Routine Consulting Provider: Santosh Winkler Reason for consultation: crohns flare, intractable abd pain 09/08/22 17:36 Consult to Psychiatry Routine Consulting Provider: Psych Covering Reason for consultation: SI, confusion- suspect polypharmacy induced, medical w/up negative thus far 09/09/22 13:51 Consult to General Surgery Routine Consulting Provider: [facility] [place] [facility] Reason for consultation: for your kind eval and rec, abd pain 09/11/22 07:56 Consult to Care Team Routine Comment: Reason for consultation: medically clear for SI evaluation and placement 09/16/22 10:48 Consult to Care Team Routine Comment: Reason for consultation: SI DS: Diagnosis Discharge Diagnosis (1) Colitis: Status: Acute (2) Intractable abdominal pain: Status: Acute (3) Acute encephalopathy: Status: Acute DS: Summary Hospital Course Hospital Course: from initial hpi: Chief Complaint: intractable abd pain 47-year-old patient with underlying history of hypertension, IV drug abuse, cocaine abuser, hepatitis-C, depression, PTSD, depression with SI and suicidal attempt, anxiety, acid reflux admitted to medicine from adult psychiatry for management of intractable abdominal pain, poor PO intake, and encephalopathy. The patient was recently admitted to ICU and stepped down to hospitalist service from 08/10- for acute metabolic encephalopathy, rhabdomyolysis and BERNARD complicated by hyperkalemia, hyponatremia, hyperphosphatemia.? Hospital stay was been complicated by acute ischemic colitis.? Stool PCR was negative for C diff and other pathogens though he was empirically treated with oral doxycycline. Stool calprotectin and stool lactoferrin levels also elevated. He had also expressed worsening depression since the passing of his several months ago with SI and was admitted to M3.? He has noted weight loss of nearly 50 lb since this time. While on M3, has continued with severe lower abdominal pain and 3-4 episodes of watery diarrhea. Initially nausea/vomiting but this has resolved. Stool studies were repeated and were again negative. GI was consulted for further evaluation and colonoscopy was recommended. Colonoscopy performed 08/31 showing edematous folds with a tight stricture with possible mass-inflammatory versus neoplastic.? Subsequent biopsy was negative for malignancy.? Repeat colonoscopy was performed 09/07 and attempts were made at balloon dilatation of the sigmoid colon stricture but was unsuccessful.? CT abdomen pelvis with IV contrast was performed with findings of colitis involving the distal transverse colon along with enteritis involving a segment of the distal ileum minimally improved when compared to prior studies.? There is also noted to be reflux contrast from the right atria down to the IVC into the iliofemoral system possibly secondary to elevated right heart pressures.? Patient has only been able to tolerate minimal amounts of food and liquid.? On exam this morning, patient noted to be very pale and encephalopathic.? Still with abdominal distension and abd pain with guarding noted in lower quadrants. He has been slightly confused with poor short-term memory and recall that has been ongoing for several days.? Encephalopathy workup completed without evidence of infection.? Electrolyte levels normal.? Ammonia level normal.? Urinalysis unremarkable.? Head CT was not performed as patient has had a significant number of CT scans and there were no other focal neuro deficits.? There is a question if the encephalopathy is medication related and medication adjustments were recommended if appropriate per Psychiatry. Given persistent intractable abdominal pain with suspicion for inflammatory bowel disease and poor p.o. intake, patient will be admitted for further evaluation and management. hospital course: patient was admitted for intractable abdominal pain due to acute flare of suspected inflammatory bowel disease. Patient was seen by Gastroenterology who recommended prolonged prednisone taper. He was started on prednisone 40 mg daily on 09/11 and will be decreased by 10 mg daily every week. He was also started on mesalamine 1 g q.i.d.. He had significant improvement in abdominal pain and p.o. intake. Patient also presented with acute metabolic and toxic encephalopathy. His antipsychotics per de-escalated and patient had significant improvement. For his hypertension he was continued on amlodipine. For anorexia and moderate protein calorie malnutrition related to inflammatory bowel disease and depression he was continued on ensure. Patient had an echocardiogram which showed basal inferior akinesis. Plan is to follow up with Cardiology as outpatient for stress test. For major depression with passive suicidal ideation he was seen by psychiatric team recommended inpatient placement. For polysubstance abuse with opiate dependency discontinue methadone. Patient will be discharged to inpatient psychiatry. Time Spent with Patient Time attestation: Total time managing care of this patient today ____ minutes. Discharge coordination time: Greater than 30 minutes Quality: Safe Use of Opioids Does Pt have an Active Cancer Diagnosis on the Problem List?: No Quality: Stroke Does the patient have a stroke diagnosis?: No Physical Exam Vital Signs: Vital Signs: Last Vital Signs Temp 97.6 F 09/16/22 11:52 Pulse 87 09/16/22 11:52 Resp 20 09/16/22 11:52 BP 118/69 09/16/22 11:52 Pulse Ox 97 09/16/22 11:52 O2 Del Method Room Air 09/16/22 11:52 BMI result Body Mass Index 20.9 Const: Other: Constitutional : Awake, interactive, not in distress Neck : Normal inspection, Supple Cardiovascular : RRR, no JVP, no lower extremity edema Respiratory : good bilateral air entry, no crackles, wheezes or rhonchi Gastrointestinal: soft, lax, Normal bowel sounds, mild generalized tenderness with palpation, no surgical signs Skin : Warm, Dry Neurological : Alert & oriented x3, No focal deficit DS: Data Data Completed and Pending Completed studies during hospitalization [Text1]: Procedures Excision of Descending Colon, Via Natural or Artificial Opening Endoscopic, Diagnostic (01/02/21) Excision of Sigmoid Colon, Via Natural or Artificial Opening Endoscopic, Diagnostic (01/02/21) Insertion of Infusion Device into Right Brachial Vein, Percutaneous Approach (05/16/22) Insertion of Infusion Device into Superior Vena Cava, Percutaneous Approach (08/10/22) Other Electroconvulsive Therapy (05/16/22) Ultrasonography of Superior Vena Cava, Guidance (08/10/22) Discharge Plan Discharge Anticipated Discharge Date/Time: 09/16/22 16:18 Patient Disposition: Xfer Other Discharge Diagnosis: ibd flare Referrals: Clotilde Baca MD [Primary Care Provider] - 1 Week Discharge Medications: Continued clonidine HCl 0.1 mg Tablet 0.05 mg PO BID@0900,1500 Qty: 0 0RF Protocol: Hold for SBP< HOLD for SBP < : 90 acetaminophen 325 mg Tablet 650 mg PO Q6H PRN (Reason: Headache/Pain Mild Scale (1-3)) Qty: 0 0RF nicotine 14 mg/24 hr Patch 24 Hour 14 mg transdermal DAILY Qty: 0 0RF quetiapine 300 mg Tablet 300 mg PO BEDTIME Qty: 0 0RF trazodone 50 mg Tablet 50 mg PO BEDTIME MRX1 PRN (Reason: Insomnia) Qty: 0 0RF nicotine (polacrilex) 2 mg Gum 4 mg buccal Q2H PRN (Reason: Nicotine Cravings) Qty: 0 0RF clonazepam 0.5 mg Tablet 0.25 mg PO TID PRN (Reason: anxiety) Qty: 0 0RF quetiapine 100 mg Tablet 100 mg PO BID@0900,1500 Qty: 0 0RF clonidine HCl 0.2 mg Tablet 0.2 mg PO BEDTIME Qty: 0 0RF Protocol: Hold for SBP< HOLD for SBP < : 90 calcium carbonate [Oyster Shell Calcium 500] 500 mg calcium (1,250 mg) Tablet 500 mg PO BID Qty: 0 0RF trazodone 100 mg Tablet 200 mg PO BEDTIME Qty: 0 0RF gabapentin 300 mg Capsule 300 mg PO TID Qty: 0 0RF hydroxyzine HCl 25 mg Tablet 25 mg PO Q6H PRN (Reason: anxiety) Qty: 0 0RF methadone [Methadose] 10 mg/mL Concentrate 60 mg PO DAILY Qty: 0 0RF Rx Instructions: Partial Fill upon patient request. dicyclomine 10 mg Capsule 20 mg PO TIDAC Qty: 0 0RF oxycodone 5 mg Tablet 5 mg PO TID@0900,1300,1800 PRN (Reason: severe pain) Qty: 0 0RF Rx Instructions: Partial Fill upon patient request. cyclobenzaprine 5 mg Tablet 5 mg PO TID Qty: 0 0RF bupropion HCl 300 mg Tablet Extended Release 24 Hr 300 mg PO DAILY Qty: 0 0RF quetiapine 50 mg Tablet 50 mg PO Q4H PRN (Reason: AH/agitation) Qty: 0 0RF loperamide 2 mg Capsule 2 mg PO Q4H PRN (Reason: diarrhea) Qty: 0 0RF omeprazole 40 mg Capsule,Delayed Release(Dr/Ec) 40 mg PO DAILY@0630 Qty: 0 0RF famotidine 20 mg Tablet 20 mg PO BEDTIME Qty: 0 0RF magnesium hydroxide [Milk of Magnesia] 400 mg/5 mL Suspension 30 ml PO DAILY PRN (Reason: Constipation) Qty: 0 0RF docusate sodium 100 mg Capsule 100 mg PO BID Qty: 0 0RF ondansetron 4 mg Tablet,Disintegrating 4 mg translingual Q6H PRN (Reason: Nausea) Qty: 0 0RF MAG-AL 200-200 mg/5 mL Suspension 30 ml PO Q6H PRN (Reason: Heartburn/Nausea) Qty: 0 0RF thiamine mononitrate (vit B1) 100 mg Tablet 100 mg PO DAILY Qty: 0 0RF Discharge Orders: Discharge Order (Routine); Ordered 09/16/22 Ordered By: Lucas Marcos Diet: Advance to usual diet Activity on Discharge: As tolerated Stand Alone Forms: Patient Portal Discharge page Care Plan Goals: recovery Health Concerns: ibd, akinesis Plan of Treatment: outpatient cardiology follow up for stress test, prednisone taper Assessment: see above
[2022-09-16] MEDS: Simethicone 80 MG TAB.CHEW PO (18:01)
[2022-09-16 19:35] VITALS: BP 122/79; PULSE 78; RESP 14; TEMP 36.6; O2SAT 95
== END 2022-09-16 20:20 | disposition other institution (70) | DRG 254 ==
PROVIDERS: Internal Medicine Gastroenterology; Student in an Organized Health Care Education/Training Program; Admitting Provider Physician Assistant; PCP Internal Medicine; Visit Provider Internal Medicine
DX: K58.0 Irritable bowel syndrome with diarrhea (principal); G92.8 Other toxic encephalopathy; E44.0 Moderate protein-calorie malnutrition; R45.851 Suicidal ideations; I11.9 Hypertensive heart disease without heart failure; F17.210 Nicotine dependence, cigarettes, uncomplicated; Z71.6 Tobacco abuse counseling; R63.0 Anorexia; F33.1 Major depressive disorder, recurrent, moderate; F43.10 Post-traumatic stress disorder, unspecified; F11.20 Opioid dependence, uncomplicated; F19.10 Other psychoactive substance abuse, uncomplicated; E86.0 Dehydration; Z68.20 Body mass index [BMI] 20.0-20.9, adult; Z91.51 Personal history of suicidal behavior; Z79.899 Other long term (current) drug therapy
CPT/HCPCS: 36415; 70450; 74176; 80048; 81479; 82397; 82803; 83520; 85025; 85027; 86140; 87040; 87493; 87507; 88346; 88350; J1650; J2270; J2405; J2920; S9485

== ENCOUNTER 2022-09-16 20:27 | Inpatient (IN) | payer OTHER, SELFPAY ==
--- NOTE | ~2022-09-16 | CT_ITS ---
EXAMINATION: CT ABDOMEN AND PELVIS WITH CONTRAST CLINICAL INFORMATION: Colitis. Colon stricture. COMPARISON: Previous CT scans most recent 09/14/2022 TECHNIQUE: Multidetector volumetric images were obtained from the superior aspect of the liver through the pubic symphysis following administration 85 mL of Omnipaque 350 intravenous contrast. Sagittal and coronal reformatted images were obtained on the technologist's workstation. Oral contrast: Yes This CT examination was performed using dose optimization techniques as appropriate, variously including the following: *Automated exposure control *Adjustment of mA and/or kV according to patient size (this includes techniques or standardized protocols for targeted exams where dose is matched to indication/reason for exam; i.e. extremities or head) *Use of iterative reconstruction technique DLP: 301 mGy-cm FINDINGS: LUNG BASES: Subsegmental atelectasis at the lung bases. LIVER, GALLBLADDER, AND BILIARY TREE: Fatty liver. No focal hepatic lesion or biliary ductal dilatation is present. The gallbladder is unremarkable with no evidence of radiopaque gallstones, gallbladder wall thickening, or obvious pericholecystic inflammatory changes. PANCREAS: Unremarkable. SPLEEN: Unremarkable. ADRENAL GLANDS: Unremarkable. KIDNEYS AND URETERS: Small bilateral renal stones. BLADDER: Not optimally distended. GASTROINTESTINAL TRACT: There is a haustral appearance of the left colon. There is mild wall thickening of the distal left colon and proximal sigmoid colon. There is stranding of the surrounding fat. There is prominent vascularity or vasa recta. Appearance is suggestive of inflammatory colitis. There is a short segment of the proximal sigmoid colon with more significant wall thickening and apical core appearance for example axial image 77 series 3. This is likely site of stricture. This does not appear appreciably changed from recent exams however is new from older exams for example April 2022. This probably represents an inflammatory stricture however neoplastic process cannot be completely excluded and correlation with colonoscopy results recommended. The more proximal colon is very dilated and filled with stool suggestive of secondary obstruction. This is similar to most recent CT 09/14/2022. The distal small bowel is slightly dilated and fluid-filled. The appendix is normal. ABDOMINAL WALL: No significant hernia is appreciated. LYMPH NODES: Small mesenteric lymph nodes. Small retroperitoneal lymph nodes. No enlarged lymph nodes.. VASCULAR: Unremarkable. PELVIC VISCERA: Unremarkable. OSSEOUS STRUCTURES: Degenerative changes at L5-S1 and both hip joints, right greater than left. CT/CT abdomen pelvis w IV con IMPRESSION: Inflammatory colitis of the left colon and proximal sigmoid colon. Short segment segment area of more focal severe wall thickening of the proximal sigmoid colon probable site of a stricture causing large bowel obstruction. Neoplastic process cannot be completely excluded and correlation with colonoscopy results recommended. Bilateral renal stones. Fatty liver. Fleischner guidelines were followed. 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
[2022-09-16 20:45] VITALS: BP 127/88; PULSE 103; TEMP 36.2; O2SAT 94
[2022-09-16 21:44] LABS: Creatinine Clr Calc Pharmacy 103.9; Estimated Glomerular Filt Rate > 60
[2022-09-16] MEDS: Famotidine 20 MG TABLET PO (22:17)
[2022-09-16] MEDS: Docusate Sodium 100 MG CAPSULE PO (22:17)
[2022-09-16] MEDS: Gabapentin 300 MG CAPSULE PO (22:17)
[2022-09-16] MEDS: traZODone HCL 100 MG TABLET 200 MG PO (22:18)
[2022-09-16] MEDS: clonazePAM 0.5 MG TABLET 0.25 MG PO (22:18)
[2022-09-16] MEDS: Cyclobenzaprine HCl 5 MG TABLET PO (22:19)
[2022-09-16] MEDS: oxyCODONE HCl Immed Release 5 MG TABLET PO (22:19)
[2022-09-17 04:00] VITALS: O2SAT 96
--- NOTE | 2022-09-17 05:58 | PC.ADMIT ---
admitted 09/16/22 to M3 after signing a CV. s/p treatment of acute ischemic colitis. also with medical history of hep. C, reflux, HTN. biopsy had been performed on mass in GI tract that was negative for malignancy. patient is pale. patient continues to endorse abdominal pain and continues to report episodes of constipation and diarrhea. behavioral health dx: major depressive d/o. patient reports + AH. continues to report ''the thought of dying is still in the back of my head'' ''I am depressed and I'm in pain'' slow to respond, thoughtful and appeared fatigued. was cooperative to admission process. patient reports that hospitalist stated they would follow him on M3 for his medical issues. per hospitalist note patient is to be on prednisone and pentasa but is currently on hold per power generation technician provider with request to have medications assessed in AM. patient also has lovenox in place but is displaying steady gait and willing to be in milieu as well as walking on unit. is oriented to unit. safety tool and treatment plan initiated.
[2022-09-17 09:55] VITALS: BP 177/95; PULSE 106; RESP 18; TEMP 36.6; O2SAT 96
[2022-09-17] MEDS: cloNIDine HCL 0.1 MG TABLET 0.05 MG PO ×2 (10:02→21:24)
[2022-09-17] MEDS: Gabapentin 300 MG CAPSULE PO ×3 (10:02→21:22)
[2022-09-17] MEDS: Dicyclomine HCl 10 MG CAPSULE 20 MG PO ×3 (10:03→17:20)
[2022-09-17] MEDS: Omeprazole 40 MG CAPSULE.DR PO (10:03)
[2022-09-17] MEDS: Docusate Sodium 100 MG CAPSULE PO ×2 (10:03→21:23)
[2022-09-17] MEDS: methADONE HCl 20 MG/2 ML ORAL.CONC 65 MG PO (10:06)
[2022-09-17] MEDS: predniSONE 20 MG TABLET 40 MG PO (10:25)
[2022-09-17] MEDS: oxyCODONE HCl Immed Release 5 MG TABLET 10 MG PO ×4 (10:26→22:28)
[2022-09-17] MEDS: Mesalamine 250 MG CAPSULE.ER 1000 MG PO ×4 (10:26→21:22)
--- NOTE | 2022-09-17 10:57 | MHC.CLN ---
RE: CONSULT PT IS MODERATELY MALNOURISHED SEE FULL CLINICAL NUTRITION ASSESSMENT DATED 09/09/22 PO INTAKE CONTINUES TO BE VARIABLE RANGING FROM 0-100% DIET RX: REGULAR-APPROPRIATE PT RECEIVING ENSURE TID TO PROVIDE 1050KCALS, 60G PROTEIN WITH 100% ACCEPTANCE IN ADDITION, THRIVE ICE CREAM TO MEAL TRAYS PROVIDES 810KCALS, 27G PROTEIN PT CONTINUES TO C/O OF ABDOMINAL PAIN AND REFUSES TO TAKE NUTRITION SUPPLEMENTS PT REFUSED ALL OTHER SUPPLEMENTS OFFERED PT WITH POOR PO R/T ABDOMINAL PAIN SINCE 08/31 CONSIDER PPN OR ALTERNATIVE NUTRITION; RECOMMEND D10AA4.25 AT 40ML/HR TO PROVIDE 490KCLAS, 41G PROTEIN DISCUSSED WITH PROVIDER KARTIK FIGUEROA AND DR JADIEL LOPEZ VIA [employer] CONTINUE STRICT PO INTAKE FOLLOWING WITH TEAM
[2022-09-17] MEDS: Milk of Magnesia 30 ML ORAL.SUSP PO (11:21)
[2022-09-17] MEDS: QUEtiapine Fumarate 50 MG TABLET PO ×2 (13:51→20:20)
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
[2022-09-17] MEDS: Simethicone 80 MG TAB.CHEW PO (17:21)
[2022-09-17] MEDS: clonazePAM 0.5 MG TABLET 0.25 MG PO (18:44)
[2022-09-17 19:40] VITALS: BP 108/67; PULSE 70; RESP 16; TEMP 36.6; O2SAT 97
[2022-09-17] MEDS: cloNIDine HCL 0.2 MG TABLET PO (21:22)
[2022-09-17] MEDS: traZODone HCL 100 MG TABLET 200 MG PO (21:23)
[2022-09-17] MEDS: Famotidine 20 MG TABLET PO (21:23)
--- NOTE | 2022-09-18 | ECG_ITS ---
Test Reason : ECT CLEARENCE Blood Pressure : / mmHG Vent. Rate : 066 BPM Atrial Rate : 066 BPM P-R Int : 144 ms QRS Dur : 096 ms QT Int : 394 ms P-R-T Axes : 047 007 019 degrees QTc Int : 413 ms Normal sinus rhythm Moderate voltage criteria for LVH, may be normal variant ( R in aVL , Sotero product ) Borderline ECG When compared with ECG of 09-AUG-2022 21:46, No significant changes seen Referred By: Pablo bAdul Electronically Signed By:FERMÍN SANTACRUZ
[2022-09-18] MEDS: oxyCODONE HCl Immed Release 5 MG TABLET 10 MG PO ×3 (03:33→17:59)
[2022-09-18 06:00] VITALS: BP 110/60; PULSE 70; RESP 16; TEMP 36.3; O2SAT 97
[2022-09-18] MEDS: Omeprazole 40 MG CAPSULE.DR PO (08:16)
[2022-09-18] MEDS: Cyclobenzaprine HCl 5 MG TABLET PO (08:16)
[2022-09-18] MEDS: Dicyclomine HCl 10 MG CAPSULE 20 MG PO ×2 (08:16→12:51)
[2022-09-18] MEDS: Simethicone 80 MG TAB.CHEW PO ×2 (08:16→12:51)
[2022-09-18] MEDS: methADONE HCl 20 MG/2 ML ORAL.CONC 65 MG PO (09:22)
[2022-09-18] MEDS: Gabapentin 300 MG CAPSULE PO ×2 (09:22→21:07)
[2022-09-18] MEDS: Mesalamine 250 MG CAPSULE.ER 1000 MG PO ×4 (09:22→21:06)
[2022-09-18] MEDS: cloNIDine HCL 0.1 MG TABLET 0.05 MG PO (09:23)
[2022-09-18] MEDS: buPROPion HCl XL 300 MG TAB.ER.24H PO (09:23)
[2022-09-18] MEDS: clonazePAM 0.5 MG TABLET 0.25 MG PO (09:23)
[2022-09-18] MEDS: Docusate Sodium 100 MG CAPSULE PO ×2 (09:23→21:08)
[2022-09-18] MEDS: Thiamine HCL 100 MG TABLET PO (09:23)
[2022-09-18] MEDS: QUEtiapine Fumarate 100 MG TABLET PO (09:24)
--- NOTE | 2022-09-18 12:05 | MHC.CLN ---
F/U VISITED WITH PATIENT ON UNIT. RUBBING ABDOMEN AND REPORTS PAIN. STATED THAT HE WILL DRINK ENSURE SUPPLEMENT AND THAT IT DOES NOT CAUSE PAIN. DIET=REGULAR WITH ENSURE TID. SUPPLEMENT PROVIDES 1050 KCALS, 60 G PROTEIN. DISCUSSED WITH NURSE. THIS FINISHER PLATE DELIVERED 2 CASES OF ENSURE (VANILLA AND STRAWBERRY). NURSING TO KEEP IN SECURE ROOM, LABELED WITH PATIENT'S NAME AND PROVIDE DESIRED TO PATIENT. GSR AWARE OF FLAVOR PREFERENCES FOR ENSURE.
--- NOTE | 2022-09-18 14:26 | PM.GIPN ---
Subjective Subjective Date of Service: 09/18/22 Interval History: Pt with new dx of crohns disease. Seen by Dr Winkler for consultation on 09/08. Incomplete colo x2 due to significant narrowing at 55cm, unable to pass CRE balloon due to tortuous colon. s/p IV steroids and now on PO taper. Also on mesalamine 4g/day. GI called back for abd pain and change in BMs. Pt evaluated in exam room. Reports worsening abd discomfort x 2-3 days a/w scant liquidy BMs followed by hard BMs requiring significant straining. No blood in stool reported. No change in appetite. Critical Care Time (minutes): 0 Physical Exam Vital Signs: Vital Signs: Last Vital Signs Temp 97.2 F 09/18/22 21:00 Pulse 97 09/18/22 21:00 Resp 18 09/18/22 21:00 BP 111/69 09/18/22 21:00 Pulse Ox 96 09/18/22 21:00 O2 Del Method Room Air 09/18/22 21:00 BMI result Body Mass Index 20.0 Pale appearing, undernourished Abd soft, mildly distended No peripheral edema Objective Data Labs 09/16/22 21:17 Procedures Date of Service Date of Service: 09/19/22 Progress Note: A&P Assessment and plan (1) Colitis: Status: Acute (2) Sigmoid stricture: Status: Acute (3) Abdominal pain: Status: Acute Plan #Stricturing CD of small and large bowel Suspect current c/o of alternating loose and hard BMs is likely 2/2 overflow incontinence possibly due to some degree of stool obstruction prox to the colon stricture duglas given findings on most recent CT. Pt quite reluctant to have repeat imaging at this time. Recommend: - Low residue diet - Miralax BID x2-3 days or until pt having liquidy stools and then once daily - HOLD imodium - Avoid lactulose as likely causing more abd distention and cramping - Check CRP and fecal calpro, if rising, would recommend repeat contrasted CT and switching back to IV steroids - If imaging shows worsening obstruction, low threshold to proceed with flex sig to attempt to pass CRE under fluoro guidance - Would also request surgery consultation in that case - Pt also appears very pale on exam today, repeat CBC, iron studies and vit D ordered - Pls also consider VTE prophylaxis - Hep Recommendations discussed with RN Time Spent With Patient Time: Total time managing care of this patient today ____ minutes. Quality Stroke Does the patient have a stroke diagnosis?: No VTE Prior VTE?: No VTE Risk Level:: Medical - moderate - high VTE Device Contraindication: Treatment Not Indicated VTE Drug Contraindication: Treatment Not Indicated
--- NOTE | 2022-09-18 15:44 | PM.EVENT ---
Event Note Date of Service: 09/18/22 Event Note: no contraindications to ECT at this time, benefits appear to outweigh risks Time Spent With Patient Time: Total time managing care of this patient today ____ minutes.
[2022-09-18 21:00] VITALS: BP 111/69; PULSE 97; RESP 18; TEMP 36.2; O2SAT 96
[2022-09-18] MEDS: polyethylene glycoL 3350 17 GM POWD.PACK PO (21:05)
[2022-09-18] MEDS: cloNIDine HCL 0.2 MG TABLET PO (21:06)
[2022-09-18] MEDS: Famotidine 20 MG TABLET PO (21:08)
[2022-09-18] MEDS: QUEtiapine Fumarate 300 MG TABLET PO (21:08)
[2022-09-18] MEDS: traZODone HCL 100 MG TABLET 200 MG PO (21:08)
[2022-09-19 10:30] VITALS: BP 108/58; PULSE 104; RESP 16; TEMP 36.6; O2SAT 96
[2022-09-19] MEDS: oxyCODONE HCl Immed Release 5 MG TABLET 10 MG PO ×3 (10:36→17:44)
[2022-09-19] MEDS: Gabapentin 300 MG CAPSULE PO ×3 (10:37→20:47)
[2022-09-19] MEDS: Mesalamine 250 MG CAPSULE.ER 1000 MG PO ×4 (10:37→20:47)
[2022-09-19] MEDS: Docusate Sodium 100 MG CAPSULE PO ×2 (10:37→20:46)
[2022-09-19] MEDS: Dicyclomine HCl 10 MG CAPSULE 20 MG PO ×3 (10:38→15:52)
[2022-09-19] MEDS: cloNIDine HCL 0.1 MG TABLET 0.05 MG PO ×2 (10:38→15:53)
[2022-09-19] MEDS: Omeprazole 40 MG CAPSULE.DR PO (10:38)
[2022-09-19] MEDS: predniSONE 20 MG TABLET 30 MG PO (10:38)
[2022-09-19] MEDS: methADONE HCl 20 MG/2 ML ORAL.CONC 65 MG PO (10:43)
--- NOTE | 2022-09-19 13:20 | HO.PSYCHPN ---
Subjective Subjective Date of Service: 09/19/22 Reason For Visit: depression, polysubstance use d/o Interim History: pt asleep. rousable, moaning in pain with attempt to roll toward MD. after a couple attempts to roll, then states he does not wish to meet and turns back toward the wall to sleep. per staff, c/o worsened abd pain. endorsing AH. intermittent talk of suicide after discharge. Mental Status Exam Mental Status Exam Narrative: lying in bed, minimally verbal, wincing with pain, declining interview. Diagnostics Vital Signs (24Hr): Vital Signs - 24 hr 09/18/22 21:00 Temperature 97.2 F Pulse Rate 97 Respiratory Rate 18 Blood Pressure 111/69 Pulse Oximetry 96 Oxygen Delivery Method Room Air BMI result Body Mass Index 20.0 Labs 09/16/22 21:17 Medications Medications Current Medications Acetaminophen (Acetaminophen 325 Mg Tablet) 650 mg PO Q6H PRN PRN Reason: Pain, Mild (Pain Scale 1-3) Al Hydroxide/Mg Hydroxide (Magnesium Hydrox/Alum Hydrox 30 Ml Oral.Susp) 30 ml PO Q6H PRN PRN Reason: Heartburn/Nausea Bupropion HCl (Bupropion Hcl Xl 300 Mg Tab.Er.24h) 300 mg PO DAILY [facility] Last Admin: 09/19/22 10:37 Dose: Not Given Calcium Carbonate (Calcium Carbonate 500 Mg Tablet) 500 mg PO BID [facility] Last Admin: 09/19/22 11:06 Dose: Not Given Clonazepam (Clonazepam 0.5 Mg Tablet) 0.25 mg PO TID PRN PRN Reason: anxiety Last Admin: 09/18/22 09:23 Dose: 0.25 mg Clonidine HCl (Clonidine Hcl 0.2 Mg Tablet) 0.2 mg PO BEDTIME [facility]; Protocol Last Admin: 09/18/22 21:06 Dose: 0.2 mg Clonidine HCl (Clonidine Hcl 0.1 Mg Tablet) 0.05 mg PO BID@0900,1500 [facility]; Protocol Last Admin: 09/19/22 10:38 Dose: 0.05 mg Cyclobenzaprine HCl (Cyclobenzaprine Hcl 5 Mg Tablet) 5 mg PO TID PRN PRN Reason: spasm Last Admin: 09/18/22 08:16 Dose: 5 mg Dicyclomine HCl (Dicyclomine Hcl 10 Mg Capsule) 20 mg PO TIDAC [facility] Last Admin: 09/19/22 13:01 Dose: 20 mg Docusate Sodium (Docusate Sodium 100 Mg Capsule) 100 mg PO BID [facility] Last Admin: 09/19/22 10:37 Dose: 100 mg Famotidine (Famotidine 20 Mg Tablet) 20 mg PO BEDTIME [facility] Last Admin: 09/18/22 21:08 Dose: 20 mg Gabapentin (Gabapentin 300 Mg Capsule) 300 mg PO TID [facility] Last Admin: 09/19/22 10:37 Dose: 300 mg Magnesium Hydroxide (Milk Of Magnesia 30 Ml Oral.Susp) 30 ml PO DAILY PRN PRN Reason: Constipation Last Admin: 09/17/22 11:21 Dose: 30 ml Mesalamine (Mesalamine 250 Mg Capsule.Er) 1,000 mg PO QID [facility] Last Admin: 09/19/22 10:37 Dose: 1,000 mg Methadone HCl (Methadone Hcl 20 Mg/2 Ml Oral.Conc) 65 mg PO DAILY [facility] Last Admin: 09/19/22 10:43 Dose: 65 mg Nicotine (Nicotine 14 Mg Patch.Td24) 14 mg TRANSDERMA DAILY [facility] Last Admin: 09/19/22 11:07 Dose: Not Given Nicotine Polacrilex (Nicotine Polacrilex 2 Mg Gum) 4 mg BUCCAL Q2H PRN PRN Reason: Nicotine Cravings Omeprazole (Omeprazole 40 Mg Capsule.Dr) 40 mg PO DAILY@0630 [facility] Last Admin: 09/19/22 10:38 Dose: 40 mg Ondansetron HCl (Ondansetron Hcl 4 Mg/2 Ml Vial) 4 mg IVPUSH Q6H PRN PRN Reason: Nausea and Vomiting Oxycodone HCl (Oxycodone Hcl Immed Release 5 Mg Tablet) 10 mg PO Q4H PRN PRN Reason: Pain, Severe (Pain Scale 7-10) Last Admin: 09/19/22 13:02 Dose: 10 mg Polyethylene Glycol (Polyethylene Glycol 3350 17 Gm Powd.Pack) 17 gm PO BID [facility] Stop: 09/21/22 20:59 Last Admin: 09/19/22 11:07 Dose: Not Given Prednisone (Prednisone 20 Mg Tablet) 30 mg PO DAILY [facility]; Taper Stop: 10/09/22 08:59 Last Admin: 09/19/22 10:38 Dose: 30 mg Quetiapine Fumarate (Quetiapine Fumarate 50 Mg Tablet) 50 mg PO Q4H PRN PRN Reason: AH/agitation Last Admin: 09/17/22 20:20 Dose: 50 mg Quetiapine Fumarate (Quetiapine Fumarate 300 Mg Tablet) 300 mg PO BEDTIME [facility] Last Admin: 09/18/22 21:08 Dose: 300 mg Quetiapine Fumarate (Quetiapine Fumarate 100 Mg Tablet) 100 mg PO BID@0900,1500 [facility] Last Admin: 09/19/22 11:07 Dose: Not Given Simethicone (Simethicone 80 Mg Tab.Chew) 80 mg PO QIDWMHS [facility] Last Admin: 09/19/22 11:06 Dose: Not Given Thiamine HCl (Thiamine Hcl 100 Mg Tablet) 100 mg PO DAILY [facility] Last Admin: 09/19/22 11:07 Dose: Not Given Trazodone HCl (Trazodone Hcl 100 Mg Tablet) 200 mg PO BEDTIME [facility] Last Admin: 09/18/22 21:08 Dose: 200 mg Trazodone HCl (Trazodone Hcl 50 Mg Tablet) 50 mg PO BEDTIME [facility] PRN PRN Reason: Insomnia Allergies Allergies Allergy/AdvReac Type Severity Reaction Status Date / Time haloperidol [From Haldol] AdvReac see note Verified 08/09/22 20:44 Assessment & Plan Assessment & Plan (1) Colitis: Status: Acute Code(s): K52.9 - Noninfective gastroenteritis and colitis, unspecified (2) Sigmoid stricture: Status: Acute Code(s): K56.699 - Other intestinal obstruction unspecified as to partial versus complete obstruction Assessment and Plan: #Stricturing CD of small and large bowel Suspect current c/o of alternating loose and hard BMs is likely 2/2 overflow incontinence possibly due to some degree of stool obstruction prox to the colon stricture duglas given findings on most recent CT. Pt quite reluctant to have repeat imaging at this time. Recommend: - Low residue diet - Miralax BID x2-3 days or until pt having liquidy stools and then once daily - HOLD imodium - Avoid lactulose as likely causing more abd distention and cramping - Check CRP and fecal calpro, if rising, would recommend repeat contrasted CT and switching back to IV steroids - If imaging shows worsening obstruction, low threshold to proceed with flex sig to attempt to pass CRE under fluoro guidance - Would also request surgery consultation in that case - Pt also appears very pale on exam today, repeat CBC, iron studies and vit D ordered - Pls also consider VTE prophylaxis - Hep Recommendations discussed with RN (3) Abdominal pain: Status: Acute Code(s): R10.9 - Unspecified abdominal pain (4) MDD (major depressive disorder), recurrent episode, moderate: Status: Acute Code(s): F33.1 - Major depressive disorder, recurrent, moderate (5) Post traumatic stress disorder (PTSD): Status: Acute Code(s): F43.10 - Post-traumatic stress disorder, unspecified (6) Polysubstance abuse: Status: Acute Code(s): F19.10 - Other psychoactive substance abuse, uncomplicated Plan 09/18: continue mgmt as was done on medicine service. 09/19: GI consult recs noted, implemented. pt appears to be experiencing worsened abd pain Sx. labs pending. Reason for continued inpatient stay Substantial Risk for: harm to self, inability to function and rapid decompensation Time Spent With Patient Time: Total time managing care of this patient today ____ minutes.
[2022-09-19] MEDS: QUEtiapine Fumarate 50 MG TABLET PO (13:51)
[2022-09-19] MEDS: QUEtiapine Fumarate 100 MG TABLET PO (15:53)
[2022-09-19 20:20] VITALS: BP 112/80; PULSE 87; RESP 18; TEMP 36.2; O2SAT 97
[2022-09-19] MEDS: traZODone HCL 100 MG TABLET 200 MG PO (20:46)
[2022-09-19] MEDS: polyethylene glycoL 3350 17 GM POWD.PACK PO (20:46)
[2022-09-19] MEDS: cloNIDine HCL 0.2 MG TABLET PO (20:47)
[2022-09-19] MEDS: Famotidine 20 MG TABLET PO (20:47)
[2022-09-19] MEDS: QUEtiapine Fumarate 300 MG TABLET PO (20:47)
[2022-09-20] MEDS: oxyCODONE HCl Immed Release 5 MG TABLET 10 MG PO ×4 (02:48→20:31)
--- NOTE | 2022-09-20 06:21 | PC.NURSE ---
Addendum entered by Brianna Liao RN 09/20/22 06:44: This staff writer has documented patients I&O incorrectly writing for 8oz instead of 240ml on 09/19 evening I&0 sheet Original Note: Brian was noted to be isolative throughout the evening. at 0250 patient c/o abdominal pain 10/10 and received oxycodone with apparent positive effect. AEB no further c/o pain patient appeared to fall back to sleep
[2022-09-20 10:00] VITALS: BP 128/84; PULSE 93; RESP 18; TEMP 36.7; O2SAT 98
[2022-09-20] MEDS: methADONE HCl 20 MG/2 ML ORAL.CONC 65 MG PO (10:04)
[2022-09-20] MEDS: Mesalamine 250 MG CAPSULE.ER 1000 MG PO ×4 (10:07→20:32)
[2022-09-20] MEDS: QUEtiapine Fumarate 100 MG TABLET PO ×2 (10:07→16:29)
[2022-09-20] MEDS: Gabapentin 300 MG CAPSULE PO ×3 (10:08→20:33)
[2022-09-20] MEDS: predniSONE 20 MG TABLET 30 MG PO (10:09)
[2022-09-20] MEDS: buPROPion HCl XL 300 MG TAB.ER.24H PO (10:09)
[2022-09-20] MEDS: Docusate Sodium 100 MG CAPSULE PO ×2 (10:11→21:00)
[2022-09-20] MEDS: Dicyclomine HCl 10 MG CAPSULE 20 MG PO ×3 (10:11→16:29)
[2022-09-20] MEDS: cloNIDine HCL 0.1 MG TABLET 0.05 MG PO ×2 (10:21→16:30)
[2022-09-20] MEDS: Omeprazole 40 MG CAPSULE.DR PO (10:22)
[2022-09-20] MEDS: polyethylene glycoL 3350 17 GM POWD.PACK PO ×2 (13:06→21:00)
--- NOTE | 2022-09-20 15:04 | HO.PSYCHPN ---
Subjective Subjective Date of Service: 09/20/22 Reason For Visit: depression, polysubstance use d/o Interim History: appears in much less pain today. able to sit up and clear off his chair so MD can sit down. expresses frustration at his continuing to feel terrible while people are telling him he is getting better. feels he cannot wait any longer. refused labs bcse he was getting poked too many times. per staff, c/o 02/02 abd pain. just taking ensure PO. had miralax last NOC. +SI. Mental Status Exam Mental Status Exam Narrative: pt is alert, oriented. speech nml rate, amount, loudness, latency. fair eye contact. Affect is constricted, normo-intense, non-labile. mood depressed and anxious. +SI. Diagnostics Vital Signs (24Hr): Vital Signs - 24 hr 09/19/22 20:20 09/20/22 10:00 Temperature 97.2 F 98.1 F Pulse Rate 87 93 Respiratory Rate 18 18 Blood Pressure 112/80 128/84 Pulse Oximetry 97 98 Oxygen Delivery Method Room Air Room Air BMI result Body Mass Index 20.0 Labs 09/16/22 21:17 Medications Medications Current Medications Acetaminophen (Acetaminophen 325 Mg Tablet) 650 mg PO Q6H PRN PRN Reason: Pain, Mild (Pain Scale 1-3) Al Hydroxide/Mg Hydroxide (Magnesium Hydrox/Alum Hydrox 30 Ml Oral.Susp) 30 ml PO Q6H PRN PRN Reason: Heartburn/Nausea Bupropion HCl (Bupropion Hcl Xl 300 Mg Tab.Er.24h) 300 mg PO DAILY [facility] Last Admin: 09/20/22 10:09 Dose: 300 mg Calcium Carbonate (Calcium Carbonate 500 Mg Tablet) 500 mg PO BID [facility] Last Admin: 09/20/22 10:12 Dose: Not Given Clonazepam (Clonazepam 0.5 Mg Tablet) 0.25 mg PO TID PRN PRN Reason: anxiety Last Admin: 09/18/22 09:23 Dose: 0.25 mg Clonidine HCl (Clonidine Hcl 0.2 Mg Tablet) 0.2 mg PO BEDTIME [facility]; Protocol Last Admin: 09/19/22 20:47 Dose: 0.2 mg Clonidine HCl (Clonidine Hcl 0.1 Mg Tablet) 0.05 mg PO BID@0900,1500 [facility]; Protocol Last Admin: 09/20/22 10:21 Dose: 0.05 mg Cyclobenzaprine HCl (Cyclobenzaprine Hcl 5 Mg Tablet) 5 mg PO TID PRN PRN Reason: spasm Last Admin: 09/18/22 08:16 Dose: 5 mg Dicyclomine HCl (Dicyclomine Hcl 10 Mg Capsule) 20 mg PO TIDAC [facility] Last Admin: 09/20/22 13:01 Dose: 20 mg Docusate Sodium (Docusate Sodium 100 Mg Capsule) 100 mg PO BID [facility] Last Admin: 09/20/22 10:11 Dose: 100 mg Famotidine (Famotidine 20 Mg Tablet) 20 mg PO BEDTIME [facility] Last Admin: 09/19/22 20:47 Dose: 20 mg Gabapentin (Gabapentin 300 Mg Capsule) 300 mg PO TID [facility] Last Admin: 09/20/22 10:08 Dose: 300 mg Magnesium Hydroxide (Milk Of Magnesia 30 Ml Oral.Susp) 30 ml PO DAILY PRN PRN Reason: Constipation Last Admin: 09/17/22 11:21 Dose: 30 ml Mesalamine (Mesalamine 250 Mg Capsule.Er) 1,000 mg PO QID [facility] Last Admin: 09/20/22 13:02 Dose: 1,000 mg Methadone HCl (Methadone Hcl 20 Mg/2 Ml Oral.Conc) 65 mg PO DAILY [facility] Last Admin: 09/20/22 10:04 Dose: 65 mg Nicotine (Nicotine 14 Mg Patch.Td24) 14 mg TRANSDERMA DAILY [facility] Last Admin: 09/20/22 10:12 Dose: Not Given Nicotine Polacrilex (Nicotine Polacrilex 2 Mg Gum) 4 mg BUCCAL Q2H PRN PRN Reason: Nicotine Cravings Omeprazole (Omeprazole 40 Mg Capsule.Dr) 40 mg PO DAILY@0630 [facility] Last Admin: 09/20/22 10:22 Dose: 40 mg Ondansetron HCl (Ondansetron Hcl 4 Mg/2 Ml Vial) 4 mg IVPUSH Q6H PRN PRN Reason: Nausea and Vomiting Oxycodone HCl (Oxycodone Hcl Immed Release 5 Mg Tablet) 10 mg PO Q4H PRN PRN Reason: Pain, Severe (Pain Scale 7-10) Last Admin: 09/20/22 07:55 Dose: 10 mg Polyethylene Glycol (Polyethylene Glycol 3350 17 Gm Powd.Pack) 17 gm PO BID [facility] Stop: 09/21/22 20:59 Last Admin: 09/20/22 13:06 Dose: 17 gm Prednisone (Prednisone 20 Mg Tablet) 30 mg PO DAILY [facility]; Taper Stop: 10/09/22 08:59 Last Admin: 09/20/22 10:09 Dose: 30 mg Quetiapine Fumarate (Quetiapine Fumarate 50 Mg Tablet) 50 mg PO Q4H PRN PRN Reason: AH/agitation Last Admin: 09/19/22 13:51 Dose: 50 mg Quetiapine Fumarate (Quetiapine Fumarate 300 Mg Tablet) 300 mg PO BEDTIME [facility] Last Admin: 09/19/22 20:47 Dose: 300 mg Quetiapine Fumarate (Quetiapine Fumarate 100 Mg Tablet) 100 mg PO BID@0900,1500 [facility] Last Admin: 09/20/22 10:07 Dose: 100 mg Simethicone (Simethicone 80 Mg Tab.Chew) 80 mg PO QIDWMHS [facility] Last Admin: 09/20/22 13:06 Dose: Not Given Thiamine HCl (Thiamine Hcl 100 Mg Tablet) 100 mg PO DAILY [facility] Last Admin: 09/20/22 10:12 Dose: Not Given Trazodone HCl (Trazodone Hcl 100 Mg Tablet) 200 mg PO BEDTIME [facility] Last Admin: 09/19/22 20:46 Dose: 200 mg Trazodone HCl (Trazodone Hcl 50 Mg Tablet) 50 mg PO BEDTIME MRX1 PRN PRN Reason: Insomnia Allergies Allergies Allergy/AdvReac Type Severity Reaction Status Date / Time haloperidol [From Haldol] AdvReac see note Verified 08/09/22 20:44 Assessment & Plan Assessment & Plan (1) Colitis: Status: Acute Code(s): K52.9 - Noninfective gastroenteritis and colitis, unspecified (2) Sigmoid stricture: Status: Acute Code(s): K56.699 - Other intestinal obstruction unspecified as to partial versus complete obstruction Assessment and Plan: #Stricturing CD of small and large bowel Suspect current c/o of alternating loose and hard BMs is likely 2/2 overflow incontinence possibly due to some degree of stool obstruction prox to the colon stricture duglas given findings on most recent CT. Pt quite reluctant to have repeat imaging at this time. Recommend: - Low residue diet - Miralax BID x2-3 days or until pt having liquidy stools and then once daily - HOLD imodium - Avoid lactulose as likely causing more abd distention and cramping - Check CRP and fecal calpro, if rising, would recommend repeat contrasted CT and switching back to IV steroids - If imaging shows worsening obstruction, low threshold to proceed with flex sig to attempt to pass CRE under fluoro guidance - Would also request surgery consultation in that case - Pt also appears very pale on exam today, repeat CBC, iron studies and vit D ordered - Pls also consider VTE prophylaxis - Hep Recommendations discussed with RN (3) Abdominal pain: Status: Acute Code(s): R10.9 - Unspecified abdominal pain (4) MDD (major depressive disorder), recurrent episode, moderate: Status: Acute Code(s): F33.1 - Major depressive disorder, recurrent, moderate (5) Post traumatic stress disorder (PTSD): Status: Acute Code(s): F43.10 - Post-traumatic stress disorder, unspecified (6) Polysubstance abuse: Status: Acute Code(s): F19.10 - Other psychoactive substance abuse, uncomplicated Plan 09/18: continue mgmt as was done on medicine service. 09/19: GI consult recs noted, implemented. pt appears to be experiencing worsened abd pain Sx. labs pending. 09/20: pain a bit better today. refused labs bcse he is a difficult stick, will approach him again about labs today. feeling very frustrated at lack of improvement. Reason for continued inpatient stay Substantial Risk for: harm to self, inability to function and rapid decompensation Time Spent With Patient Time: Total time managing care of this patient today _35___ minutes.
[2022-09-20] MEDS: Ondansetron ODT 4 MG TAB.RAPDIS TRANSLINGU (17:03)
[2022-09-20] MEDS: Cyclobenzaprine HCl 5 MG TABLET PO (20:31)
[2022-09-20] MEDS: traZODone HCL 100 MG TABLET 200 MG PO (20:59)
[2022-09-20] MEDS: cloNIDine HCL 0.2 MG TABLET PO (21:00)
[2022-09-20] MEDS: QUEtiapine Fumarate 300 MG TABLET PO (21:00)
[2022-09-20] MEDS: Famotidine 20 MG TABLET PO (21:00)
[2022-09-20 21:03] VITALS: BP 117/81; PULSE 95; TEMP 36.3; O2SAT 100
[2022-09-21 06:00] VITALS: BP 120/76; PULSE 96; RESP 18; TEMP 36.6; O2SAT 95
[2022-09-21] MEDS: Omeprazole 40 MG CAPSULE.DR PO (06:59)
[2022-09-21] MEDS: oxyCODONE HCl Immed Release 5 MG TABLET 10 MG PO ×4 (06:59→21:29)
[2022-09-21] MEDS: Cyclobenzaprine HCl 5 MG TABLET PO (06:59)
[2022-09-21] MEDS: methADONE HCl 20 MG/2 ML ORAL.CONC 65 MG PO (09:11)
[2022-09-21] MEDS: Mesalamine 250 MG CAPSULE.ER 1000 MG PO ×4 (09:15→21:31)
[2022-09-21] MEDS: QUEtiapine Fumarate 100 MG TABLET PO ×2 (09:15→15:33)
[2022-09-21] MEDS: buPROPion HCl XL 300 MG TAB.ER.24H PO (09:15)
[2022-09-21] MEDS: cloNIDine HCL 0.1 MG TABLET 0.05 MG PO ×2 (09:15→15:33)
[2022-09-21] MEDS: predniSONE 20 MG TABLET 30 MG PO (09:16)
[2022-09-21] MEDS: polyethylene glycoL 3350 17 GM POWD.PACK PO (09:16)
[2022-09-21] MEDS: Docusate Sodium 100 MG CAPSULE PO ×2 (09:16→21:33)
[2022-09-21] MEDS: Dicyclomine HCl 10 MG CAPSULE 20 MG PO ×3 (09:17→16:46)
[2022-09-21] MEDS: Gabapentin 300 MG CAPSULE PO ×3 (09:17→21:33)
[2022-09-21 12:58] VITALS: BMI 20.2
[2022-09-21] MEDS: clonazePAM 0.5 MG TABLET 0.25 MG PO (13:53)
--- NOTE | 2022-09-21 14:56 | HO.PSYCHPN ---
Subjective Subjective Date of Service: 09/21/22 Reason For Visit: depression, polysubstance use d/o Interim History: up and about the unit. cooperative. periods of severe abd pain after taking PO. will try labs again tomorrow with scooter, or other if she is not working. had large BM, pain went from 10 to 8 after that. per staff, up and about more. roommate scared him with slamming doors, etc. talking on phone. large BM today. refused labs again today. Mental Status Exam Mental Status Exam Narrative: pt is alert, oriented. speech nml rate, amount, loudness, latency. fair eye contact. Affect is constricted, normo-intense, non-labile. mood depressed and anxious. no SI/HI/VH expressed. +AH. Diagnostics Vital Signs (24Hr): Vital Signs - 24 hr 09/20/22 21:03 09/21/22 06:00 Temperature 97.4 F 97.9 F Pulse Rate 95 96 Respiratory Rate 18 Blood Pressure 117/81 120/76 Pulse Oximetry 100 95 Oxygen Delivery Method Room Air Room Air BMI result Body Mass Index 20.2 Labs 09/16/22 21:17 Medications Medications Current Medications Acetaminophen (Acetaminophen 325 Mg Tablet) 650 mg PO Q6H PRN PRN Reason: Pain, Mild (Pain Scale 1-3) Al Hydroxide/Mg Hydroxide (Magnesium Hydrox/Alum Hydrox 30 Ml Oral.Susp) 30 ml PO Q6H PRN PRN Reason: Heartburn/Nausea Bupropion HCl (Bupropion Hcl Xl 300 Mg Tab.Er.24h) 300 mg PO DAILY [facility] Last Admin: 09/21/22 09:15 Dose: 300 mg Calcium Carbonate (Calcium Carbonate 500 Mg Tablet) 500 mg PO BID [facility] Last Admin: 09/21/22 09:23 Dose: Not Given Clonazepam (Clonazepam 0.5 Mg Tablet) 0.25 mg PO TID PRN PRN Reason: anxiety Last Admin: 09/21/22 13:53 Dose: 0.25 mg Clonidine HCl (Clonidine Hcl 0.2 Mg Tablet) 0.2 mg PO BEDTIME [facility]; Protocol Last Admin: 09/20/22 21:00 Dose: 0.2 mg Clonidine HCl (Clonidine Hcl 0.1 Mg Tablet) 0.05 mg PO BID@0900,1500 [facility]; Protocol Last Admin: 09/21/22 09:15 Dose: 0.05 mg Cyclobenzaprine HCl (Cyclobenzaprine Hcl 5 Mg Tablet) 5 mg PO TID PRN PRN Reason: spasm Last Admin: 09/21/22 06:59 Dose: 5 mg Dicyclomine HCl (Dicyclomine Hcl 10 Mg Capsule) 20 mg PO TIDAC [facility] Last Admin: 09/21/22 12:53 Dose: 20 mg Docusate Sodium (Docusate Sodium 100 Mg Capsule) 100 mg PO BID [facility] Last Admin: 09/21/22 09:16 Dose: 100 mg Famotidine (Famotidine 20 Mg Tablet) 20 mg PO BEDTIME [facility] Last Admin: 09/20/22 21:00 Dose: 20 mg Gabapentin (Gabapentin 300 Mg Capsule) 300 mg PO TID [facility] Last Admin: 09/21/22 09:17 Dose: 300 mg Magnesium Hydroxide (Milk Of Magnesia 30 Ml Oral.Susp) 30 ml PO DAILY PRN PRN Reason: Constipation Last Admin: 09/17/22 11:21 Dose: 30 ml Mesalamine (Mesalamine 250 Mg Capsule.Er) 1,000 mg PO QID [facility] Last Admin: 09/21/22 12:53 Dose: 1,000 mg Methadone HCl (Methadone Hcl 20 Mg/2 Ml Oral.Conc) 65 mg PO DAILY [facility] Last Admin: 09/21/22 09:11 Dose: 65 mg Nicotine (Nicotine 14 Mg Patch.Td24) 14 mg TRANSDERMA DAILY [facility] Last Admin: 09/21/22 09:23 Dose: Not Given Nicotine Polacrilex (Nicotine Polacrilex 2 Mg Gum) 4 mg BUCCAL Q2H PRN PRN Reason: Nicotine Cravings Omeprazole (Omeprazole 40 Mg Capsule.Dr) 40 mg PO DAILY@0630 [facility] Last Admin: 09/21/22 06:59 Dose: 40 mg Ondansetron HCl (Ondansetron Odt 4 Mg Tab.Rapdis) 4 mg TRANSLINGU Q6H PRN PRN Reason: Nausea Last Admin: 09/20/22 17:03 Dose: 4 mg Oxycodone HCl (Oxycodone Hcl Immed Release 5 Mg Tablet) 10 mg PO Q4H PRN PRN Reason: Pain, Severe (Pain Scale 7-10) Last Admin: 09/21/22 12:53 Dose: 10 mg Polyethylene Glycol (Polyethylene Glycol 3350 17 Gm Powd.Pack) 17 gm PO BID [facility] Stop: 09/21/22 20:59 Last Admin: 09/21/22 09:16 Dose: 17 gm Prednisone (Prednisone 20 Mg Tablet) 30 mg PO DAILY [facility]; Taper Stop: 10/09/22 08:59 Last Admin: 09/21/22 09:16 Dose: 30 mg Quetiapine Fumarate (Quetiapine Fumarate 50 Mg Tablet) 50 mg PO Q4H PRN PRN Reason: AH/agitation Last Admin: 09/19/22 13:51 Dose: 50 mg Quetiapine Fumarate (Quetiapine Fumarate 300 Mg Tablet) 300 mg PO BEDTIME [facility] Last Admin: 09/20/22 21:00 Dose: 300 mg Quetiapine Fumarate (Quetiapine Fumarate 100 Mg Tablet) 100 mg PO BID@0900,1500 [facility] Last Admin: 09/21/22 09:15 Dose: 100 mg Simethicone (Simethicone 80 Mg Tab.Chew) 80 mg PO QIDWMHS [facility] Last Admin: 09/21/22 12:55 Dose: Not Given Thiamine HCl (Thiamine Hcl 100 Mg Tablet) 100 mg PO DAILY [facility] Last Admin: 09/21/22 09:23 Dose: Not Given Trazodone HCl (Trazodone Hcl 100 Mg Tablet) 200 mg PO BEDTIME [facility] Last Admin: 09/20/22 20:59 Dose: 200 mg Trazodone HCl (Trazodone Hcl 50 Mg Tablet) 50 mg PO BEDTIME MRX1 PRN PRN Reason: Insomnia Allergies Allergies Allergy/AdvReac Type Severity Reaction Status Date / Time haloperidol [From Haldol] AdvReac see note Verified 08/09/22 20:44 Assessment & Plan Assessment & Plan (1) Colitis: Status: Acute Code(s): K52.9 - Noninfective gastroenteritis and colitis, unspecified (2) Sigmoid stricture: Status: Acute Code(s): K56.699 - Other intestinal obstruction unspecified as to partial versus complete obstruction Assessment and Plan: #Stricturing CD of small and large bowel Suspect current c/o of alternating loose and hard BMs is likely 2/2 overflow incontinence possibly due to some degree of stool obstruction prox to the colon stricture duglas given findings on most recent CT. Pt quite reluctant to have repeat imaging at this time. Recommend: - Low residue diet - Miralax BID x2-3 days or until pt having liquidy stools and then once daily - HOLD imodium - Avoid lactulose as likely causing more abd distention and cramping - Check CRP and fecal calpro, if rising, would recommend repeat contrasted CT and switching back to IV steroids - If imaging shows worsening obstruction, low threshold to proceed with flex sig to attempt to pass CRE under fluoro guidance - Would also request surgery consultation in that case - Pt also appears very pale on exam today, repeat CBC, iron studies and vit D ordered - Pls also consider VTE prophylaxis - Hep Recommendations discussed with RN (3) Abdominal pain: Status: Acute Code(s): R10.9 - Unspecified abdominal pain (4) MDD (major depressive disorder), recurrent episode, moderate: Status: Acute Code(s): F33.1 - Major depressive disorder, recurrent, moderate (5) Post traumatic stress disorder (PTSD): Status: Acute Code(s): F43.10 - Post-traumatic stress disorder, unspecified (6) Polysubstance abuse: Status: Acute Code(s): F19.10 - Other psychoactive substance abuse, uncomplicated Plan 09/18: continue mgmt as was done on medicine service. 09/19: GI consult recs noted, implemented. pt appears to be experiencing worsened abd pain Sx. labs pending. 09/20: pain a bit better today. refused labs bcse he is a difficult stick, will approach him again about labs today. feeling very frustrated at lack of improvement. 09/21: refused labs again today. large BM with abd going from 10 to 8. still severe pain after taking PO. remains anxious and depressed and c/o AH. agreeable to ECT. Reason for continued inpatient stay Substantial Risk for: harm to self, inability to function and rapid decompensation Time Spent With Patient Time: Total time managing care of this patient today _25___ minutes.
[2022-09-21 15:32] VITALS: BP 132/93; PULSE 104; RESP 18; TEMP 36.8; O2SAT 97
--- NOTE | 2022-09-21 16:04 | PC.NURSE ---
Patient had a large bowel movement - consistency was hard and soft chunks in thick liquid. Pt reports rizwana blood when he wiped. No blood noted in stool sample. Sample sent to lab per order. Pt reported slight pain relief following bm. Dr Abdul informed. Suellen LEBLANC informed.
[2022-09-21 21:25] VITALS: BP 128/87; PULSE 102; RESP 16; TEMP 36.6; O2SAT 97
[2022-09-21] MEDS: QUEtiapine Fumarate 300 MG TABLET PO (21:31)
[2022-09-21] MEDS: traZODone HCL 100 MG TABLET 200 MG PO (21:31)
[2022-09-21] MEDS: Famotidine 20 MG TABLET PO (21:33)
[2022-09-21] MEDS: cloNIDine HCL 0.2 MG TABLET PO (21:34)
[2022-09-22] MEDS: oxyCODONE HCl Immed Release 5 MG TABLET 10 MG PO ×4 (01:18→20:47)
[2022-09-22] MEDS: traZODone HCL 50 MG TABLET PO (01:19)
[2022-09-22] MEDS: Cyclobenzaprine HCl 5 MG TABLET PO ×2 (01:19→06:07)
--- NOTE | 2022-09-22 01:22 | PC.NURSE ---
patients having VH. ''I see a cat'' ''a mouse running in the room''
[2022-09-22] MEDS: Omeprazole 40 MG CAPSULE.DR PO (06:07)
[2022-09-22] MEDS: QUEtiapine Fumarate 50 MG TABLET PO (06:11)
[2022-09-22 08:15] VITALS: BP 118/71; PULSE 87; RESP 18; TEMP 36.7; O2SAT 95
[2022-09-22 08:44] LABS: MANUAL DIFF FLAG NO
[2022-09-22] MEDS: QUEtiapine Fumarate 100 MG TABLET PO ×2 (08:50→15:13)
[2022-09-22] MEDS: predniSONE 20 MG TABLET 30 MG PO (08:50)
[2022-09-22] MEDS: Gabapentin 300 MG CAPSULE PO ×3 (08:53→20:40)
[2022-09-22] MEDS: buPROPion HCl XL 300 MG TAB.ER.24H PO (08:53)
[2022-09-22] MEDS: cloNIDine HCL 0.1 MG TABLET 0.05 MG PO ×2 (08:54→15:15)
[2022-09-22] MEDS: Docusate Sodium 100 MG CAPSULE PO ×2 (08:54→20:42)
[2022-09-22] MEDS: methADONE HCl 20 MG/2 ML ORAL.CONC 65 MG PO (08:56)
[2022-09-22 09:18] LABS: Basophils Absolute Auto 0.1 X10*3/uL (0.0-0.2); Basophils Percent Auto 0.8 % (0-2); Eosinophils Absolute Auto 0.2 X10*3/uL (0.0-0.4); Eosinophils Percent Auto 2.6 % (0-4); Hemoglobin 11.6 g/dl (14.0-18.0); Imm Gran Abs Auto 0.09 X10*3/uL (0.00-0.03); Imm Gran Pct Auto 1.2 % (0.0-0.4); Lymphocytes Absolute Auto 2.5 X10*3/uL (1.2-4.9); Lymphocytes Percent Auto 32.2 % (20-40); Mean Corpuscular HGB Conc 31.4 g/dl (31.0-36.0); Mean Corpuscular Hemoglobin 29.4 pg (27.0-33.0); Mean Corpuscular Volume 93.9 fL (80.0-98.0); Mean Platelet Volume 8.3 fL (9.4-12.4); Monocytes Percent Auto 12.7 % (2-11); Neutrophils Absolute Auto 3.9 x10*3/uL (2.0-8.3); Neutrophils Percent Auto 50.5 % (45-73); Platelet Count 407 X10*3/uL (160-400); Red Blood Count 3.94 X10*6/uL (4.60-5.80); Red Cell Distribution Width 16.1 % (11.0-16.0); White Blood Count 7.7 X10*3/uL (4.8-10.8)
[2022-09-22 09:53] LABS: Alanine Aminotransferase 25 U/L (0-40); Albumin Level 2.7 g/dL (3.5-5.0); Alkaline Phosphatase 65 U/L (39-117); Anion Gap 12 (12-20); Aspartate Amino Transferase 15 U/L (5-37); Bilirubin Total 0.3 mg/dL (0.0-1.0); Blood Urea Nitrogen 21 mg/dL (9-16); C Reactive Protein 8.54 mg/dL (< or = 0.50); Calcium 8.8 mg/dL (8.4-10.2); Carbon Dioxide 33 mmol/L (22-29); Chloride 98 mmol/L (96-108); Creatinine Clr Calc Pharmacy 107.9; Estimated Glomerular Filt Rate > 60; Glucose Random 85 mg/dL (60-115); Potassium 5.1 mmol/L (3.3-5.1); Sodium 138 mmol/L (135-145); Total Protein 5.2 g/dL (6.5-8.0)
[2022-09-22 10:02] LABS: Ferritin 191 ng/mL (20-250); Vitamin D 25-OH Total 23.4 ng/mL (>30)
[2022-09-22] MEDS: Dicyclomine HCl 10 MG CAPSULE 20 MG PO ×2 (10:52→16:11)
[2022-09-22] MEDS: Mesalamine 250 MG CAPSULE.ER 1000 MG PO ×4 (10:53→20:40)
--- NOTE | 2022-09-22 12:11 | P.PNPSI_ITS ---
Subjective Subjective Date of Service: 09/22/22 Reason For Visit: depression, polysubstance use d/o Interim History: calm, cooperative. up at his desk. appears in less pain and more animated than over w/e. informed Dr. Vasquez will be prompted re ECT and GI re recent labs and clinical developments. c/o VH of mice and cats, asking MD to explain to him what is happening, as he has never seen such things before. MD suggests pt's medical illness and malnutrition are causing his brain to play tricks on him. per staff, anx/dep. abd pain. slept well. +VH of cats and mice. Mental Status Exam Mental Status Exam Narrative: pt is alert, oriented. speech nml rate, amount, loudness, latency. fair eye contact. Affect is constricted, normo-intense, non-labile. mood depressed and anxious. no SI/HI/AH expressed. +VH of cats and mice. Diagnostics Vital Signs (24Hr): Vital Signs - 24 hr 09/21/22 15:32 09/21/22 21:25 Temperature 98.2 F 97.8 F Pulse Rate 104 H 102 H Respiratory Rate 18 16 Blood Pressure 132/93 H 128/87 Pulse Oximetry 97 97 Oxygen Delivery Method Room Air Room Air BMI result Body Mass Index 20.2 Labs 09/22/22 08:14 09/22/22 08:14 Labs: Laboratory Results - last 48 hr 09/22/22 09/22/22 08:14 08:14 WBC 7.7 RBC 3.94 L Hgb 11.6 L Hct 37.0 L MCV 93.9 MCH 29.4 MCHC 31.4 RDW 16.1 H Plt Count 407 H D MPV 8.3 L Immature Gran % (Auto) 1.2 H Neut % (Auto) 50.5 Lymph % (Auto) 32.2 Arthur % (Auto) 12.7 H Eos % (Auto) 2.6 Baso % (Auto) 0.8 Lymph # (Auto) 2.5 Arthur # (Auto) 1.0 Eos # (Auto) 0.2 Baso # (Auto) 0.1 Abs Immat Gran (auto) 0.09 H Absolute Neuts (auto) 3.9 Absolute Nucleated RBC 0.000 Nucleated RBC % (auto) 0.0 Sodium 138 Potassium 5.1 Chloride 98 Carbon Dioxide 33 H Anion Gap 12 BUN 21 H Creatinine 0.77 Estim Creat Clear Calc 107.9 Estimated GFR > 60 Random Glucose 85 Calcium 8.8 D Ferritin 191 Total Bilirubin 0.3 AST 15 ALT 25 Alkaline Phosphatase 65 C-Reactive Protein 8.54 H Total Protein 5.2 L Albumin 2.7 L 25-OH Vitamin D Total 23.4 Medications Medications Current Medications Acetaminophen (Acetaminophen 325 Mg Tablet) 650 mg PO Q6H PRN PRN Reason: Pain, Mild (Pain Scale 1-3) Al Hydroxide/Mg Hydroxide (Magnesium Hydrox/Alum Hydrox 30 Ml Oral.Susp) 30 ml PO Q6H PRN PRN Reason: Heartburn/Nausea Bupropion HCl (Bupropion Hcl Xl 300 Mg Tab.Er.24h) 300 mg PO DAILY [facility] Last Admin: 09/22/22 08:53 Dose: 300 mg Calcium Carbonate (Calcium Carbonate 500 Mg Tablet) 500 mg PO BID [facility] Last Admin: 09/22/22 08:55 Dose: Not Given Clonidine HCl (Clonidine Hcl 0.2 Mg Tablet) 0.2 mg PO BEDTIME [facility]; Protocol Last Admin: 09/21/22 21:34 Dose: 0.2 mg Clonidine HCl (Clonidine Hcl 0.1 Mg Tablet) 0.05 mg PO BID@0900,1500 [facility]; Protocol Last Admin: 09/22/22 08:54 Dose: 0.05 mg Cyclobenzaprine HCl (Cyclobenzaprine Hcl 5 Mg Tablet) 5 mg PO TID PRN PRN Reason: spasm Last Admin: 09/22/22 06:07 Dose: 5 mg Dicyclomine HCl (Dicyclomine Hcl 10 Mg Capsule) 20 mg PO TIDAC [facility] Last Admin: 09/22/22 10:52 Dose: 20 mg Docusate Sodium (Docusate Sodium 100 Mg Capsule) 100 mg PO BID [facility] Last Admin: 09/22/22 08:54 Dose: 100 mg Famotidine (Famotidine 20 Mg Tablet) 20 mg PO BEDTIME [facility] Last Admin: 09/21/22 21:33 Dose: 20 mg Gabapentin (Gabapentin 300 Mg Capsule) 300 mg PO TID [facility] Last Admin: 09/22/22 08:53 Dose: 300 mg Magnesium Hydroxide (Milk Of Magnesia 30 Ml Oral.Susp) 30 ml PO DAILY PRN PRN Reason: Constipation Last Admin: 09/17/22 11:21 Dose: 30 ml Mesalamine (Mesalamine 250 Mg Capsule.Er) 1,000 mg PO QID [facility] Last Admin: 09/22/22 10:53 Dose: 1,000 mg Methadone HCl (Methadone Hcl 20 Mg/2 Ml Oral.Conc) 65 mg PO DAILY [facility] Last Admin: 09/22/22 08:56 Dose: 65 mg Nicotine (Nicotine 14 Mg Patch.Td24) 14 mg TRANSDERMA DAILY [facility] Last Admin: 09/22/22 09:00 Dose: Not Given Nicotine Polacrilex (Nicotine Polacrilex 2 Mg Gum) 4 mg BUCCAL Q2H PRN PRN Reason: Nicotine Cravings Omeprazole (Omeprazole 40 Mg Capsule.Dr) 40 mg PO DAILY@0630 [facility] Last Admin: 09/22/22 06:07 Dose: 40 mg Ondansetron HCl (Ondansetron Odt 4 Mg Tab.Rapdis) 4 mg TRANSLINGU Q6H PRN PRN Reason: Nausea Last Admin: 09/20/22 17:03 Dose: 4 mg Oxycodone HCl (Oxycodone Hcl Immed Release 5 Mg Tablet) 10 mg PO Q4H PRN PRN Reason: Pain, Severe (Pain Scale 7-10) Last Admin: 09/22/22 06:07 Dose: 10 mg Prednisone (Prednisone 20 Mg Tablet) 30 mg PO DAILY [facility]; Taper Stop: 10/09/22 08:59 Last Admin: 09/22/22 08:50 Dose: 30 mg Quetiapine Fumarate (Quetiapine Fumarate 50 Mg Tablet) 50 mg PO Q4H PRN PRN Reason: AH/agitation Last Admin: 09/22/22 06:11 Dose: 50 mg Quetiapine Fumarate (Quetiapine Fumarate 300 Mg Tablet) 300 mg PO BEDTIME [facility] Last Admin: 09/21/22 21:31 Dose: 300 mg Quetiapine Fumarate (Quetiapine Fumarate 100 Mg Tablet) 100 mg PO BID@0900,1500 [facility] Last Admin: 09/22/22 08:50 Dose: 100 mg Simethicone (Simethicone 80 Mg Tab.Chew) 80 mg PO QIDWMHS [facility] Last Admin: 09/22/22 08:53 Dose: Not Given Thiamine HCl (Thiamine Hcl 100 Mg Tablet) 100 mg PO DAILY [facility] Last Admin: 09/22/22 08:52 Dose: Not Given Trazodone HCl (Trazodone Hcl 100 Mg Tablet) 200 mg PO BEDTIME [facility] Last Admin: 09/21/22 21:31 Dose: 200 mg Trazodone HCl (Trazodone Hcl 50 Mg Tablet) 50 mg PO BEDTIME MRX1 PRN PRN Reason: Insomnia Last Admin: 09/22/22 01:19 Dose: 50 mg Allergies Allergies Allergy/AdvReac Type Severity Reaction Status Date / Time haloperidol [From Haldol] AdvReac see note Verified 08/09/22 20:44 Assessment & Plan Assessment & Plan (1) Colitis: Status: Acute Code(s): K52.9 - Noninfective gastroenteritis and colitis, unspecified (2) Sigmoid stricture: Status: Acute Code(s): K56.699 - Other intestinal obstruction unspecified as to partial versus complete obstruction Assessment and Plan: #Stricturing CD of small and large bowel Suspect current c/o of alternating loose and hard BMs is likely 2/2 overflow incontinence possibly due to some degree of stool obstruction prox to the colon stricture duglas given findings on most recent CT. Pt quite reluctant to have repeat imaging at this time. Recommend: - Low residue diet - Miralax BID x2-3 days or until pt having liquidy stools and then once daily - HOLD imodium - Avoid lactulose as likely causing more abd distention and cramping - Check CRP and fecal calpro, if rising, would recommend repeat contrasted CT and switching back to IV steroids - If imaging shows worsening obstruction, low threshold to proceed with flex sig to attempt to pass CRE under fluoro guidance - Would also request surgery consultation in that case - Pt also appears very pale on exam today, repeat CBC, iron studies and vit D ordered - Pls also consider VTE prophylaxis - Hep Recommendations discussed with RN (3) Abdominal pain: Status: Acute Code(s): R10.9 - Unspecified abdominal pain (4) MDD (major depressive disorder), recurrent episode, moderate: Status: Acute Code(s): F33.1 - Major depressive disorder, recurrent, moderate (5) Post traumatic stress disorder (PTSD): Status: Acute Code(s): F43.10 - Post-traumatic stress disorder, unspecified (6) Polysubstance abuse: Status: Acute Code(s): F19.10 - Other psychoactive substance abuse, uncomplicated Plan 09/18: continue mgmt as was done on medicine service. 09/19: GI consult recs noted, implemented. pt appears to be experiencing worsened abd pain Sx. labs pending. 09/20: pain a bit better today. refused labs bcse he is a difficult stick, will approach him again about labs today. feeling very frustrated at lack of improvement. 09/21: refused labs again today. large BM with abd going from 10 to 8. still severe pain after taking PO. remains anxious and depressed and c/o AH. agreeable to ECT. 09/22: labs drawn, referred to GI for interpretation. Christina informed of ECT consult. pt was cleared for ECT last week. c/o VH today of cats and mice, pt does not have any Hx or signs of psychosis. this complaint is interpreted as someone with limited emotional and expressive resources attempting to communicate his high level of psychic distress. provided with reassurance. continue current mgmt aide from above. Reason for continued inpatient stay Substantial Risk for: harm to self, inability to function and rapid decompensation Time Spent With Patient Time: Total time managing care of this patient today __35__ minutes.
--- NOTE | 2022-09-22 13:22 | PC.NURSE ---
[address] Scan with iv contrast @1415. Pt is aware that he is NPO prior to scan.
--- NOTE | 2022-09-22 14:47 | PC.NURSE ---
Approx 1415 pt was wheeled down to CT Scan by staff.
[2022-09-22] MEDS: Ondansetron ODT 4 MG TAB.RAPDIS TRANSLINGU (15:16)
[2022-09-22 15:19] VITALS: BP 127/72; O2SAT 95
--- NOTE | 2022-09-22 17:05 | PM.EVENT ---
Event Note Date of Service: 09/23/22 Event Note: Pt remained hesitant over the long weekend to get any blood work or imaging done. Blood work done this morning shows persistently elevated CRP. CT Abd/pel with IV contrast ordered and read pending. To personal review, appears worsening obstruction with fecal loading. Recommend clear liquids and cont Miralax BID (order timed out yest) Briefly discussed with bedside RN and Dr Abdul Time Spent With Patient Time: Total time managing care of this patient today ____ minutes.
--- NOTE | 2022-09-22 17:05 | PM.GIPN ---
Physical Exam Vital Signs: Vital Signs: Last Vital Signs Temp 98.1 F 09/22/22 19:55 Pulse 84 09/22/22 19:55 Resp 16 09/22/22 19:55 BP 110/66 09/22/22 19:55 Pulse Ox 95 09/22/22 19:55 O2 Del Method Room Air 09/22/22 19:55 BMI result Body Mass Index 20.2 Objective Data Labs 09/22/22 08:14 09/22/22 08:14 Labs: Laboratory Results - last 24 hr 09/22/22 09/22/22 09/22/22 08:14 08:14 20:00 Sodium 138 Potassium 5.1 Chloride 98 Carbon Dioxide 33 H Anion Gap 12 BUN 21 H Creatinine 0.77 Estim Creat Clear Calc 107.9 Estimated GFR > 60 Random Glucose 85 Calcium 8.8 D Ferritin 191 Total Bilirubin 0.3 AST 15 ALT 25 Alkaline Phosphatase 65 C-Reactive Protein 8.54 H Total Protein 5.2 L Albumin 2.7 L 25-OH Vitamin D Total 23.4 TSH 2.64 Hep Bs Antigen Negative Hep Bs Antibody REACTIVE Hep B Core Total Ab Nonreactive HIV 1&2 Ab/P24 Ag 4thGn Nonreactive Procedures Date of Service Date of Service: 09/23/22 Progress Note: A&P Time Spent With Patient Time: Total time managing care of this patient today ____ minutes. Quality Stroke Does the patient have a stroke diagnosis?: No VTE Prior VTE?: No VTE Risk Level:: Medical - moderate - high VTE Device Contraindication: Treatment Not Indicated VTE Drug Contraindication: Treatment Not Indicated
[2022-09-22 18:00] VITALS: BP 127/72; PULSE 89; RESP 15; TEMP 36.4; O2SAT 95
[2022-09-22 19:55] VITALS: BP 110/66; PULSE 84; RESP 16; TEMP 36.7; O2SAT 95
[2022-09-22 20:33] LABS: TSH reflex Free T4 2.64 uIU/mL (0.32-4.0)
[2022-09-22] MEDS: Simethicone 80 MG TAB.CHEW PO (20:40)
[2022-09-22] MEDS: QUEtiapine Fumarate 300 MG TABLET PO (20:43)
[2022-09-22] MEDS: cloNIDine HCL 0.2 MG TABLET PO (20:43)
[2022-09-22] MEDS: traZODone HCL 100 MG TABLET 200 MG PO (20:43)
[2022-09-22] MEDS: Famotidine 20 MG TABLET PO (20:43)
[2022-09-22] MEDS: Acetaminophen 325 MG TABLET 650 MG PO (20:48)
[2022-09-23] MEDS: oxyCODONE HCl Immed Release 5 MG TABLET 10 MG PO ×3 (02:07→12:15)
[2022-09-23] MEDS: Omeprazole 40 MG CAPSULE.DR PO (06:25)
[2022-09-23 07:40] LABS: HBS Num1 74.43 mIU/mL (0-7.99); HBc Num1 0.32 S/CO (0.00-0.79); HBsAGNum1 0.26 S/CO (0.00-0.99); HIV AB/AG Nonreactive (Nonreactive); HIV Num 1 0.06 S/CO (0.00-0.99); Hepatitis B Core Antibody Nonreactive (Nonreactive); Hepatitis B Surface Antigen Negative (Negative); ~Hepatitis B Surface Antibody REACTIVE (Nonreactive)
[2022-09-23 08:00] VITALS: BP 106/62; PULSE 83; RESP 18; TEMP 36.8; O2SAT 97
[2022-09-23] MEDS: buPROPion HCl XL 300 MG TAB.ER.24H PO (08:46)
[2022-09-23] MEDS: Mesalamine 250 MG CAPSULE.ER 1000 MG PO (08:49)
[2022-09-23] MEDS: Dicyclomine HCl 10 MG CAPSULE 20 MG PO (08:49)
[2022-09-23] MEDS: cloNIDine HCL 0.1 MG TABLET 0.05 MG PO (08:50)
[2022-09-23] MEDS: Gabapentin 300 MG CAPSULE PO (08:51)
[2022-09-23] MEDS: predniSONE 20 MG TABLET 30 MG PO (08:51)
[2022-09-23] MEDS: QUEtiapine Fumarate 100 MG TABLET PO (08:51)
[2022-09-23] MEDS: Simethicone 80 MG TAB.CHEW PO (08:52)
[2022-09-23] MEDS: Docusate Sodium 100 MG CAPSULE PO (08:53)
[2022-09-23] MEDS: methADONE HCl 20 MG/2 ML ORAL.CONC 65 MG PO (08:54)
--- NOTE | 2022-09-23 09:36 | PM.GIPN ---
Subjective Subjective Date of Service: 09/23/22 Interval History: Pt with new dx of crohns disease. Seen by Dr Winkler for consultation on 09/08. Incomplete colo x2 due to significant narrowing at 55cm, unable to pass CRE balloon due to tortuous colon. s/p IV steroids and now on PO taper. Also on mesalamine 4g/day. GI was called back on 09/18 for abd pain and change in BMs. Patient had been reluctant to undergo work up over the weekend. Blood work and CT completed yesterday 09/22. CT personally reviewed as well - shows significant fecal loading with partial LBO. Air present downstream. On eval pt appears comfortable and walking around without significant difficulty. Reports abd discomfort and distention but has been passing gas, last BM yest evening. Was tolerating regular diet without any N/V. Critical Care Time (minutes): 0 Physical Exam Vital Signs: Vital Signs: Last Vital Signs Temp 98.1 F 09/22/22 19:55 Pulse 84 09/22/22 19:55 Resp 16 09/22/22 19:55 BP 110/66 09/22/22 19:55 Pulse Ox 95 09/22/22 19:55 O2 Del Method Room Air 09/22/22 19:55 BMI result Body Mass Index 20.2 Non toxic appearing, undernourished Abd soft, mildly distended No peripheral edema Objective Data Labs 09/22/22 08:14 09/22/22 08:14 Labs: Laboratory Results - last 24 hr 09/22/22 09/22/22 09/22/22 08:14 08:14 20:00 Sodium 138 Potassium 5.1 Chloride 98 Carbon Dioxide 33 H Anion Gap 12 BUN 21 H Creatinine 0.77 Estim Creat Clear Calc 107.9 Estimated GFR > 60 Random Glucose 85 Calcium 8.8 D Ferritin 191 Total Bilirubin 0.3 AST 15 ALT 25 Alkaline Phosphatase 65 C-Reactive Protein 8.54 H Total Protein 5.2 L Albumin 2.7 L 25-OH Vitamin D Total 23.4 TSH 2.64 Hep Bs Antigen Negative Hep Bs Antibody REACTIVE Hep B Core Total Ab Nonreactive HIV 1&2 Ab/P24 Ag 4thGn Nonreactive Imaging CT scan - abdomen: Radiologist's impression: Inflammatory colitis of the left colon and proximal sigmoid colon. Short segment segment area of more focal severe wall thickening of the proximal sigmoid colon probable site of a stricture causing large bowel obstruction. Neoplastic process cannot be completely excluded and correlation with colonoscopy results recommended. Bilateral renal stones. Fatty liver. Procedures Date of Service Date of Service: 09/23/22 Progress Note: A&P Assessment and plan (1) Colitis: Status: Acute (2) Sigmoid stricture: Status: Acute (3) Abdominal pain: Status: Acute Plan #High suspicion of CD of small and large bowel - path nondiagnostic, but imaging and prometheus panel highly suggestive Progression of LBO on most recent CT due to short but high grade sigmoid stricture. This could not be traversed x 2 attempts 08/31 and 09/07. Clinically not completely obstructed. - Case reviewed with surgery colleagues - will likely need to be diverted. - NPO orders placed until seen by surgery Offered to call family member or friend to update them on this development and upcoming surgery, but pt declined. Time Spent With Patient Time: Total time managing care of this patient today ____ minutes. Quality Stroke Does the patient have a stroke diagnosis?: No VTE Prior VTE?: No VTE Risk Level:: Medical - moderate - high VTE Device Contraindication: Treatment Not Indicated VTE Drug Contraindication: Treatment Not Indicated
[2022-09-23] MEDS: LORazepam 1 MG TABLET 2 MG PO (12:14)
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
[2022-09-23 16:00] VITALS: BP 114/84; PULSE 98; RESP 18; TEMP 36.3; O2SAT 97
[2022-09-24 08:23] LABS: HCV Log PCR <1.18 NOT DETECTED Log IU/mL (NOT DETECTED); HepC Viral Load <15 NOT DETECTED IU/mL (NOT DETECTED)
[2022-09-24 17:18] LABS: TS Negative Control Passed; TS Panel A 1; TS Panel B 2; TS Positive Control Passed; TSpotTB Negative (Negative)
[2022-09-26 19:23] LABS: Calprotectin, Fecal 1700 mcg/g
== END 2022-09-23 15:41 | disposition short-term general hospital (02) | DRG 751 ==
PROVIDERS: Physician Assistant; Admitting Provider Psychiatry & Neurology Psychiatry; PCP Clinical Nurse Specialist Psychiatric/Mental Health, Adult; Visit Provider Psychiatry & Neurology Psychiatry
DX: F33.1 Major depressive disorder, recurrent, moderate (principal); K50.812 Crohn's disease of both small and large intestine with intestinal obstruction; F43.10 Post-traumatic stress disorder, unspecified; F19.10 Other psychoactive substance abuse, uncomplicated; F11.20 Opioid dependence, uncomplicated; Z87.891 Personal history of nicotine dependence; Z88.8 Allergy status to other drugs, medicaments and biological substances; Z79.52 Long term (current) use of systemic steroids; Z79.899 Other long term (current) drug therapy
CPT/HCPCS: 36415; 74177; 80053; 82306; 82565; 82728; 83993; 84443; 85025; 86140; 86481; 86704; 86706; 87340; 87389; 87522; 93005

== ENCOUNTER 2022-09-23 14:34 | Inpatient (IN) | payer OTHER, SELFPAY ==
--- NOTE | ~2022-09-23 | XR_ITS ---
EXAMINATION: XR CHEST CLINICAL INFORMATION: Right subclavian central line. COMPARISON: 08/10/2022 chest radiograph. TECHNIQUE: Frontal view of the chest was obtained. FINDINGS: Support devices: Interval placement of right central venous catheter with tip terminating at the cavoatrial junction. No significant abnormality is noted involving the heart, lungs, mediastinum, bony thorax or soft tissues. XR/XR chest 1V IMPRESSION: 1. Right central venous catheter with tip terminating at the cavoatrial junction. 2. No acute cardiopulmonary process.
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
[2022-09-23 16:00] VITALS: BP 129/60; PULSE 105; RESP 18; TEMP 36.6; O2SAT 95
--- NOTE | 2022-09-23 16:16 | PHA.MEDREC ---
Pharmacy Consult ? Medication Reconciliation Pharmacy has completed the medication reconciliation. Patient transferred from psych unit
[2022-09-23] MEDS: Lactated Ringers 500 ML 80 ML IV (17:25)
[2022-09-23 17:55] VITALS: BMI 20.5
[2022-09-23] MEDS: Lactated Ringers 1,000 ML 80 ML IVCONT (17:57)
--- NOTE | 2022-09-23 18:17 | PC.NURSE ---
Patient transferred from at 1600, still suicidal , 1:1 sitter placed. Alert and oriented, cooperative, denies pain at this time. IV access obtained #20 in left hand, IV fluids started LR at 80 ml/hr. Patient oriented to room, educated about diet and meds. Clear liquids at present and NPO after midnight. New belonging list filled out, patient has glasses, clothes, shoes. Found slip for money for safety deposit, stapled together with new belonging list, found only yellow copy of looks like original/ initial belonging list from ED. All placed together in patients chart.
[2022-09-23 18:47] LABS: Hematocrit 30.5 % (42.0-52.0); Mean Corpuscular HGB Conc 32.8 g/dl (31.0-36.0); Mean Corpuscular Hemoglobin 29.9 pg (27.0-33.0); PLT CLUMP 1; Red Blood Count 3.35 X10*6/uL (4.60-5.80); Red Cell Distribution Width 15.8 % (11.0-16.0)
[2022-09-23 19:04] LABS: Anion Gap 13 (12-20); Blood Urea Nitrogen 19 mg/dL (9-16); Calcium 8.6 mg/dL (8.4-10.2); Carbon Dioxide 28 mmol/L (22-29); Chloride 98 mmol/L (96-108); Creatinine Clr Calc Pharmacy 120.2; Estimated Glomerular Filt Rate > 60; Glucose Random 118 mg/dL (60-115); Potassium 5.2 mmol/L (3.3-5.1); Sodium 134 mmol/L (135-145)
[2022-09-23] MEDS: oxyCODONE HCl Immed Release 5 MG TABLET 10 MG PO (19:11)
[2022-09-23 19:12] VITALS: BP 134/77; PULSE 100; RESP 18; TEMP 36.6; O2SAT 98
[2022-09-23 19:13] LABS: White Blood Count 6.7 X10*3/uL (4.8-10.8)
[2022-09-23] MEDS: cloNIDine HCL 0.2 MG TABLET PO (20:42)
[2022-09-23] MEDS: QUEtiapine Fumarate 300 MG TABLET PO (20:42)
[2022-09-23] MEDS: Famotidine 20 MG TABLET PO (20:42)
[2022-09-23] MEDS: traZODone HCL 100 MG TABLET 200 MG PO (20:42)
[2022-09-23] MEDS: Gabapentin 300 MG CAPSULE PO (20:42)
[2022-09-24] VITALS (13 sets, daily range): BP systolic 86–160; BP diastolic 54–104; PULSE 53–102; RESP 16–20; TEMP 36.1–37.2; O2SAT 92–100; BMI 20.5
[2022-09-24] MEDS: Lactated Ringers 1,000 ML 80 ML IVCONT (05:41)
[2022-09-24] MEDS: Omeprazole 40 MG CAPSULE.DR PO (05:46)
[2022-09-24] MEDS: oxyCODONE HCl Immed Release 5 MG TABLET 10 MG PO ×2 (05:46→20:59)
[2022-09-24] MEDS: QUEtiapine Fumarate 50 MG TABLET PO (06:24)
[2022-09-24] MEDS: methADONE HCl 20 MG/2 ML ORAL.CONC 65 MG PO (07:59)
[2022-09-24] MEDS: QUEtiapine Fumarate 100 MG TABLET PO (08:02)
[2022-09-24] MEDS: Gabapentin 300 MG CAPSULE PO ×2 (08:02→21:00)
[2022-09-24] MEDS: predniSONE 10 MG TABLET 30 MG PO (08:02)
[2022-09-24] MEDS: cloNIDine HCL 0.1 MG TABLET 0.05 MG PO (08:03)
[2022-09-24] MEDS: buPROPion HCl XL 300 MG TAB.ER.24H PO (08:03)
[2022-09-24] MEDS: Sodium Chloride 0.45 % 1,000 ML 80 ML IVCONT (08:46)
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
--- NOTE | 2022-09-24 09:48 | PM.PNGS ---
Subjective Subjective Date of Service: 09/25/22 Interval history: States he has some pain on the left abdomen Passing good flatus No BMs overnight No nausea or vomiting Physical Exam Vital Signs: Vital Signs: Last Vital Signs Temp 97.8 F 09/24/22 08:00 Pulse 84 09/24/22 08:00 Resp 18 09/24/22 08:00 BP 109/65 09/24/22 08:00 Pulse Ox 93 09/24/22 08:00 O2 Del Method Room Air 09/24/22 08:00 BMI result Body Mass Index 20.5 Const: General: comfortable and no acute distress Resp: Effort & Inspection: normal respiratory effort Cardio: Rate: regular rate GI: Other: Soft, mildly distended, some tenderness to the left side no guarding rebound Objective Data Active Medications Acetaminophen (Acetaminophen 325 Mg Tablet) 650 mg PO Q6H PRN PRN Reason: Pain, Mild (Pain Scale 1-3) Bupropion HCl (Bupropion Hcl Xl 300 Mg Tab.Er.24h) 300 mg PO DAILY [facility] Last Admin: 09/24/22 08:03 Dose: 300 mg Documented By: TWIN Clonazepam (Clonazepam 0.5 Mg Tablet) 0.25 mg PO TID PRN PRN Reason: anxiety Clonidine HCl (Clonidine Hcl 0.1 Mg Tablet) 0.05 mg PO BID@0900,1500 [facility]; Protocol Last Admin: 09/24/22 08:03 Dose: 0.05 mg Documented By: TWIN Clonidine HCl (Clonidine Hcl 0.2 Mg Tablet) 0.2 mg PO BEDTIME [facility]; Protocol Last Admin: 09/23/22 20:42 Dose: 0.2 mg Documented By: PRINCE Famotidine (Famotidine 20 Mg Tablet) 20 mg PO BEDTIME [facility] Last Admin: 09/23/22 20:42 Dose: 20 mg Documented By: PRINCE Gabapentin (Gabapentin 300 Mg Capsule) 300 mg PO TID [facility] Last Admin: 09/24/22 08:02 Dose: 300 mg Documented By: TWIN Heparin Sodium (Porcine) (Heparin Sodium,Porcine 5,000 Unit/Ml Vial) 5,000 unit SUBCUT Q8H [facility] Sodium Chloride (Sodium Chloride 0.45 %) 1,000 mls @ 80 mls/hr IVCONT .[id number] [facility] Last Admin: 09/24/22 08:46 Dose: 80 mls/hr Documented By: TWIN Methadone HCl (Methadone Hcl 20 Mg/2 Ml Oral.Conc) 65 mg PO DAILY [facility] Last Admin: 09/24/22 07:59 Dose: 65 mg Documented By: TWIN Nicotine (Nicotine 14 Mg Patch.Td24) 14 mg TRANSDERMA DAILY [facility] Last Admin: 09/24/22 08:07 Dose: Not Given Documented By: TWIN Non-Admin Reason: Patient Refused Nicotine Polacrilex (Nicotine Polacrilex 2 Mg Gum) 4 mg BUCCAL Q2H PRN PRN Reason: Nicotine Cravings Omeprazole (Omeprazole 40 Mg Capsule.Dr) 40 mg PO DAILY@0630 [facility] Last Admin: 09/24/22 05:46 Dose: 40 mg Documented By: WESTLEY Ondansetron HCl (Ondansetron Odt 4 Mg Tab.Rapdis) 4 mg TRANSLINGU Q6H PRN PRN Reason: Nausea Oxycodone HCl (Oxycodone Hcl Immed Release 5 Mg Tablet) 10 mg PO Q4H PRN PRN Reason: severe pain Last Admin: 09/24/22 05:46 Dose: 10 mg Documented By: WESTLEY Prednisone (Prednisone 10 Mg Tablet) 30 mg PO DAILY [facility]; Taper Stop: 10/15/22 08:59 Last Admin: 09/24/22 08:02 Dose: 30 mg Documented By: TWIN Quetiapine Fumarate (Quetiapine Fumarate 50 Mg Tablet) 50 mg PO Q4H PRN PRN Reason: AH/agitation Last Admin: 09/24/22 06:24 Dose: 50 mg Documented By: WESTLEY Quetiapine Fumarate (Quetiapine Fumarate 300 Mg Tablet) 300 mg PO BEDTIME [facility] Last Admin: 09/23/22 20:42 Dose: 300 mg Documented By: PRINCE Quetiapine Fumarate (Quetiapine Fumarate 100 Mg Tablet) 100 mg PO BID@0900,1500 [facility] Last Admin: 09/24/22 08:02 Dose: 100 mg Documented By: TWIN Sodium Chloride (0.9 % Sodium Chloride Flush 3 Ml Syringe) 3 ml IVFLUSH QSHIFT [facility] Last Admin: 09/24/22 07:50 Dose: Not Given Documented By: TWIN Non-Admin Reason: IV Running Sodium Chloride (0.9 % Sodium Chloride Flush 3 Ml Syringe) 3 ml IVFLUSH QSHIFT [facility] Last Admin: 09/24/22 07:51 Dose: Not Given Documented By: TWIN Non-Admin Reason: IV Running Thiamine HCl (Thiamine Hcl 100 Mg Tablet) 100 mg PO DAILY [facility] Last Admin: 09/24/22 07:51 Dose: Not Given Documented By: TWIN Non-Admin Reason: NPO Trazodone HCl (Trazodone Hcl 50 Mg Tablet) 50 mg PO BEDTIME MRX1 PRN PRN Reason: Insomnia Trazodone HCl (Trazodone Hcl 100 Mg Tablet) 200 mg PO BEDTIME [facility] Last Admin: 09/23/22 20:42 Dose: 200 mg Documented By: LYSJong Labs 09/23/22 18:39 09/23/22 18:39 Labs: Laboratory Results - last 24 hr 09/23/22 09/23/22 09/23/22 18:39 18:39 21:19 MCV 91.0 MCH 29.9 MCHC 32.8 RDW 15.8 Plt Count TNP MPV 10.0 Absolute Nucleated RBC 0.000 Nucleated RBC % (auto) 0.0 Anion Gap 13 Estim Creat Clear Calc 120.2 Estimated GFR > 60 Random Glucose 118 H Calcium 8.6 Blood Type O Positive Antibody Screen NEGATIVE Procedures Date of Service Date of Service: 09/25/22 Progress Note: A&P Assessment and plan (1) Sigmoid stricture: Status: Acute Assessment and Plan: Now with partial obstruction He had been on steroids without resolution Plan to proceed with hand assisted laparoscopic sigmoid resection, colostomy, possible open He understands the technique of the planned procedure He is aware of the risks, benefits, and alternatives I have discussed the plan with the hospitalist service and the psych service yesterday He appears to be competent despite his psych history Time Spent With Patient Time: Total time managing care of this patient today ____ minutes. Quality Stroke Does the patient have a stroke diagnosis?: No VTE Prior VTE?: No VTE Risk Level:: Medical - moderate - high VTE Device Contraindication: N/A - Device Ordered VTE Drug Contraindication: N/A - Med Ordered
--- NOTE | 2022-09-24 09:51 | MHC.CM.PN ---
Patient transfered from with [facility] He reports that he is homeless. He is independent with all functional mobility. He declined offer to document a HCP. He has been covid vaxxed. DP to be determined by [facility] once medically cleared.
[2022-09-24 10:56] LABS: Anion Gap 13 (12-20); Blood Urea Nitrogen 15 mg/dL (9-16); Calcium 8.3 mg/dL (8.4-10.2); Carbon Dioxide 29 mmol/L (22-29); Chloride 99 mmol/L (96-108); Creatinine Clr Calc Pharmacy 123.7; Estimated Glomerular Filt Rate > 60; Glucose Fasting 92 mg/dL (60-99); Potassium 4.5 mmol/L (3.3-5.1); Sodium 136 mmol/L (135-145)
--- NOTE | 2022-09-24 13:19 | MHC.CLN ---
PT IS MODERATELY MALNOURISHED PT WITH MILDLY DEPLETED SUBCUTANEOUS FAT AND MUSCLE MASS WITH 21% SIGNIFICANT WT LOSS X 1 YEAR AND CHRONIC POOR PO INTAKE R/T INCREASE IN DEPRESSION R/T PASSING AND C/O ABD PAIN WITH EATING X 1 MONTH CURRENT WT 66.6KG (09/23/22) PREVIOUS WT 83.9KG (02/11/2022) FAMILIAR WITH PT WITH PREVIOUS ASSESSMENT COMPLETED 09/09/22 MULTIPLE ADMISSIONS FROM ADULT PSYCH AND MEDICAL FLOOR PT IS CURRENTLY NPO AND SCHEDULED FOR SX PROCEDURE TODAY IF DIET TO ADVANCE; RECOMMEND ADDING NUTRITION SUPPLEMENTS PT IS RECEPTIVE TO DRINKING ENSURE FROM PREVIOUS ADMISSION ON MEDICAL FLOOR IF NPO EXPECTED X3DAYS; RECOMMEND PPN FOR NUTRITION SUPPORT D10AA4.25 AT 40ML/HR TO PROVIDE 490KCALS, 41G PROTEIN FOLLOWING WITH TEAM SEE FULL CLINICAL NUTRITION ASSESSMENTS DATED 09/24/22 AND 09/09/22
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
--- NOTE | 2022-09-24 16:37 | PM.EVENT ---
Event Note Date of Service: 09/24/22 Event Note: seen postop appears to have good pain control stable VS stoma viable abd soft good UO CXR - central line in place, no pneumo (not officially read yet) pain mgt incentive spirometry dw GI - Dr. Rayo will follow for IBD management Time Spent With Patient Time: Total time managing care of this patient today ____ minutes.
[2022-09-24] MEDS: Acetaminophen 1,000 MG/100 ML PIGGYBACK 400 MG IV ×2 (17:59→23:28)
--- NOTE | 2022-09-24 18:23 | PC.NURSE ---
pt arrived to unit from pacu at 1720, pt complains of pain at incision site , iv Tylenol ordered and given, Ortiz cath intact . Iv fluids running threw TLC with no difficulties . Midline incision c/d/i . Colostomy bag to left side slight blood drainage noted .
[2022-09-24] MEDS: Morphine Sulfate 4 MG/ML CARTRIDGE IVPUSH ×2 (19:52→23:28)
[2022-09-24] MEDS: traZODone HCL 100 MG TABLET 200 MG PO (21:00)
[2022-09-24] MEDS: Famotidine 20 MG TABLET PO (21:00)
[2022-09-24] MEDS: cloNIDine HCL 0.2 MG TABLET PO (21:00)
[2022-09-24] MEDS: QUEtiapine Fumarate 300 MG TABLET PO (21:00)
[2022-09-24] MEDS: clonazePAM 0.5 MG TABLET 0.25 MG PO (21:05)
[2022-09-24] MEDS: 0.9 % Sodium Chloride Flush 3 ML SYRINGE IVFLUSH (23:47)
[2022-09-24] MEDS: traZODone HCL 50 MG TABLET PO (23:51)
[2022-09-25] VITALS (8 sets, daily range): BP systolic 119–158; BP diastolic 71–94; PULSE 72–117; RESP 16–19; TEMP 36.1–37.2; O2SAT 94–97; BMI 20.5
[2022-09-25] MEDS: oxyCODONE HCl Immed Release 5 MG TABLET 10 MG PO ×2 (01:45→18:47)
[2022-09-25] MEDS: Morphine Sulfate 4 MG/ML CARTRIDGE 5 MG IVPUSH (05:12)
[2022-09-25] MEDS: Sodium Chloride 0.45 % 1,000 ML 80 ML IVCONT ×2 (05:13→15:55)
[2022-09-25] MEDS: Acetaminophen 1,000 MG/100 ML PIGGYBACK 400 MG IV ×3 (05:13→22:43)
[2022-09-25] MEDS: Omeprazole 40 MG CAPSULE.DR PO (05:14)
[2022-09-25 07:30] LABS: Hematocrit 30.5 % (42.0-52.0); Hemoglobin 9.6 g/dl (14.0-18.0); Mean Corpuscular HGB Conc 31.5 g/dl (31.0-36.0); Mean Corpuscular Hemoglobin 28.8 pg (27.0-33.0); Mean Corpuscular Volume 91.6 fL (80.0-98.0); Mean Platelet Volume 8.3 fL (9.4-12.4); Platelet Count 367 X10*3/uL (160-400); Red Blood Count 3.33 X10*6/uL (4.60-5.80); Red Cell Distribution Width 15.9 % (11.0-16.0); White Blood Count 8.3 X10*3/uL (4.8-10.8)
[2022-09-25 07:50] LABS: Anion Gap 15 (12-20); Blood Urea Nitrogen 14 mg/dL (9-16); Calcium 8.5 mg/dL (8.4-10.2); Carbon Dioxide 29 mmol/L (22-29); Chloride 95 mmol/L (96-108); Creatinine Clr Calc Pharmacy 115.3; Estimated Glomerular Filt Rate > 60; Glucose Random 84 mg/dL (60-115); Potassium 4.5 mmol/L (3.3-5.1); Sodium 134 mmol/L (135-145)
--- NOTE | 2022-09-25 08:10 | PM.PNGS ---
Subjective Subjective Date of Service: 09/25/22 <Jody Lu PA-C - Last Filed: 09/25/22 08:22> 09/25/22 <Tay Winslow MD - Last Filed: 09/25/22 11:38> Interval history: Refused to get OOB last night due to pain. Analgesics had to be increased overnight and received 1x dose of IV morphine 4mg in addition. Feels ok this morning- reports pain is so,so . Denies nausea. <Jody Lu PA-C - Last Filed: 09/25/22 08:22> Physical Exam Vital Signs: Vital Signs: Last Vital Signs Temp 98 F 09/25/22 07:48 Pulse 109 H 09/25/22 07:48 Resp 16 09/25/22 07:48 BP 150/90 H 09/25/22 07:48 Pulse Ox 97 09/25/22 07:48 O2 Del Method Nasal Cannula 09/25/22 07:48 O2 Flow Rate 1 09/25/22 07:48 BMI result Body Mass Index 20.5 <Jody Lu PA-C - Last Filed: 09/25/22 08:22> Const: General: comfortable, no acute distress and alert <CAROL Parekh Last Filed: 09/25/22 08:22> Orientation/consciousness: patient oriented x3 <CAROL Parekh Last Filed: 09/25/22 08:22> Resp: Effort & Inspection: normal respiratory effort <CAROL Parekh Last Filed: 09/25/22 08:22> GI: Other: ostomy slightly dusky, gas and small amount of liquid stool in appliance <Jody Lu PA-C - Last Filed: 09/25/22 08:22> Inspection: No distended and Yes incision (dressing clean) <CAROL Parekh Last Filed: 09/25/22 08:22> Palpation (GI): Soft to palpation, Tenderness to palpation present (GI) (incisional), no guarding and not rigid <CAROL Parekh Last Filed: 09/25/22 08:22> Percussion: Yes normal to percussion <Jody Lu PA-C - Last Filed: 09/25/22 08:22> Skin: General skin exam: no rashes or lesions noted <Jody Lu PA-C - Last Filed: 09/25/22 08:22> Neuro: General: patient oriented x3 and moves all extremities <Jody Lu PA-C - Last Filed: 09/25/22 08:22> Objective Data Active Medications Bupropion HCl (Bupropion Hcl Xl 300 Mg Tab.Er.24h) 300 mg PO DAILY [facility] Last Admin: 09/24/22 08:03 Dose: 300 mg Documented By: TWIN Clonazepam (Clonazepam 0.5 Mg Tablet) 0.25 mg PO TID PRN PRN Reason: anxiety Last Admin: 09/24/22 21:05 Dose: 0.25 mg Documented By: MICHELLE Clonidine HCl (Clonidine Hcl 0.1 Mg Tablet) 0.05 mg PO BID@0900,1500 [facility]; Protocol Last Admin: 09/24/22 15:05 Dose: Not Given Documented By: TWIN Non-Admin Reason: Off Unit: Surgery Clonidine HCl (Clonidine Hcl 0.2 Mg Tablet) 0.2 mg PO BEDTIME [facility]; Protocol Last Admin: 09/24/22 21:00 Dose: 0.2 mg Documented By: MICHELLE Famotidine (Famotidine 20 Mg Tablet) 20 mg PO BEDTIME [facility] Last Admin: 09/24/22 21:00 Dose: 20 mg Documented By: MICHELLE Gabapentin (Gabapentin 300 Mg Capsule) 300 mg PO TID [facility] Last Admin: 09/24/22 21:00 Dose: 300 mg Documented By: MICHELLE Heparin Sodium (Porcine) (Heparin Sodium,Porcine 5,000 Unit/Ml Vial) 5,000 unit SUBCUT Q8H [facility] Hydromorphone HCl (Hydromorphone Hcl 0.5 Mg/0.5 Ml Syringe) 0.5 mg IVPUSH Q3H PRN; Protocol PRN Reason: Pain, Severe (Pain Scale 7-10) Sodium Chloride (Sodium Chloride 0.45 %) 1,000 mls @ 80 mls/hr IVCONT .[id number] [facility] Last Admin: 09/25/22 07:15 Dose: Not Given Documented By: COTEMA Non-Admin Reason: IV Running Acetaminophen (Ofirmev) 1,000 mg in 100 mls @ 400 mls/hr IV Q6H [facility] Last Infusion: 09/25/22 05:32 Dose: 0 mls/hr Documented By: MICHELLE Methadone HCl (Methadone Hcl 20 Mg/2 Ml Oral.Conc) 65 mg PO DAILY [facility] Last Admin: 09/24/22 07:59 Dose: 65 mg Documented By: TWIN Nicotine (Nicotine 14 Mg Patch.Td24) 14 mg TRANSDERMA DAILY [facility] Last Admin: 09/24/22 08:07 Dose: Not Given Documented By: TWIN Non-Admin Reason: Patient Refused Nicotine Polacrilex (Nicotine Polacrilex 2 Mg Gum) 4 mg BUCCAL Q2H PRN PRN Reason: Nicotine Cravings Omeprazole (Omeprazole 40 Mg Capsule.Dr) 40 mg PO DAILY@0630 [facility] Last Admin: 09/25/22 05:14 Dose: 40 mg Documented By: MICHELLE Ondansetron HCl (Ondansetron Odt 4 Mg Tab.Rapdis) 4 mg TRANSLINGU Q6H PRN PRN Reason: Nausea Oxycodone HCl (Oxycodone Hcl Immed Release 5 Mg Tablet) 10 mg PO Q4H PRN PRN Reason: severe pain Last Admin: 09/25/22 01:45 Dose: 10 mg Documented By: MICHELLE Prednisone (Prednisone 10 Mg Tablet) 30 mg PO DAILY [facility]; Taper Stop: 10/15/22 08:59 Last Admin: 09/24/22 08:02 Dose: 30 mg Documented By: TWIN Quetiapine Fumarate (Quetiapine Fumarate 50 Mg Tablet) 50 mg PO Q4H PRN PRN Reason: AH/agitation Last Admin: 09/24/22 06:24 Dose: 50 mg Documented By: WESTLEY Quetiapine Fumarate (Quetiapine Fumarate 300 Mg Tablet) 300 mg PO BEDTIME [facility] Last Admin: 09/24/22 21:00 Dose: 300 mg Documented By: MICHELLE Quetiapine Fumarate (Quetiapine Fumarate 100 Mg Tablet) 100 mg PO BID@0900,1500 [facility] Last Admin: 09/24/22 15:05 Dose: Not Given Documented By: TWIN Non-Admin Reason: Off Unit: Surgery Sodium Chloride (0.9 % Sodium Chloride Flush 3 Ml Syringe) 3 ml IVFLUSH QSHIFT [facility] Last Admin: 09/25/22 07:06 Dose: Not Given Documented By: ONEIDA Non-Admin Reason: IV Running Sodium Chloride (0.9 % Sodium Chloride Flush 3 Ml Syringe) 3 ml IVFLUSH QSHIFT [facility] Last Admin: 09/25/22 07:06 Dose: Not Given Documented By: ONEIDA Non-Admin Reason: IV Running Thiamine HCl (Thiamine Hcl 100 Mg Tablet) 100 mg PO DAILY [facility] Last Admin: 09/24/22 07:51 Dose: Not Given Documented By: CHRISTIANEA Non-Admin Reason: NPO Trazodone HCl (Trazodone Hcl 50 Mg Tablet) 50 mg PO BEDTIME MRX1 PRN PRN Reason: Insomnia Last Admin: 09/24/22 23:51 Dose: 50 mg Documented By: MICHELLE Trazodone HCl (Trazodone Hcl 100 Mg Tablet) 200 mg PO BEDTIME [facility] Last Admin: 09/24/22 21:00 Dose: 200 mg Documented By: MICHELLE <oJdy Lu PA-C - Last Filed: 09/25/22 08:22> Labs CBC & Chem 7: 09/25/22 06:18 09/25/22 06:18 <Jody Lu PA-C - Last Filed: 09/25/22 08:22> Labs: Laboratory Results - last 24 hr 09/24/22 09/25/22 09/25/22 10:07 06:18 06:18 MCV 91.6 MCH 28.8 MCHC 31.5 RDW 15.9 Plt Count 367 MPV 8.3 L Absolute Nucleated RBC 0.000 Nucleated RBC % (auto) 0.0 Anion Gap 13 15 Estim Creat Clear Calc 123.7 115.3 Estimated GFR > 60 > 60 Random Glucose 84 Fasting Glucose 92 Calcium 8.3 L 8.5 <Jody Lu PA-C - Last Filed: 09/25/22 08:22> Procedures Date of Service Date of Service: 09/25/22 <Jody Lu PA-C - Last Filed: 09/25/22 08:22> 09/25/22 <Tay Winslow MD - Last Filed: 09/25/22 11:38> Progress Note: A&P Assessment and plan (1) Colitis: Status: Acute <Jody Lu PA-C - Last Filed: 09/25/22 08:22> (2) Status post Maya procedure: Status: Acute <Jody Lu PA-C - Last Filed: 09/25/22 08:22> Assessment and Plan: c/o incisional pain looks comfortable otherwise abd soft stoma erythematous, dusky but viable anticipate challenging pain control due to methadone use OOB TPN GI asked toffup in view of likely Crohn's ds - should be on steroids seen and examined independently - agree with DEANA Lu pt has no family <Tay Winslow MD - Last Filed: 09/25/22 11:38> Assessment and Plan: 47 year old made initially admitted because of depression, polysubstance abuse, who developed left sided abd pain, he subsequently underwent colonoscopy showing a stricture at level 55 cm.? He was started on steroids, mesalamine as initial impression was IBD type disease however he did not improve with time.?Repeat CT scan 2 days prior showed dilatation of the entire colon all the way to the level of the stricture, with note of persistent edema as well of the entire colon and distal small bowel suggestive of Crohn's disease.?Given the failure to improve with steroids, it was recommended to proceed with resection of the diseased segment. He is now POD #1 s/p hand assisted laparoscopic sigmoid resection, and colostomy, extensive lysis of adhesions. He was found to have a stricture at the sigmoid, extensive adhesions, edematous colon from the rectosigmoid all the way to the cecum, with fat creeping consistent with Crohn's disease. He is doing fairly well post op but having difficulty with pain. VS- tachycardic this morning. Abd- soft, dressing clean, ostomy slightly dusky appearing but with some stool output. Will change morphine to dilaudid, continue ofirmev. Pain management will be difficult in view of methadone, IVDA. Given poor oral intake for weeks, will begin TPN. Continue clear liquids for now. Strongly encouraged OOB/ambulation of halls at least 4x today and IS use. Discontinue lino. Appreciate hospitalist input, GI input regarding Crohns treatment. <Jody Lu PA-C - Last Filed: 09/25/22 08:22> Time Spent With Patient Time: Total time managing care of this patient today ____ minutes. <Jody Lu PA-C - Last Filed: 09/25/22 08:22> Quality Stroke Does the patient have a stroke diagnosis?: No <Jody Lu PA-C - Last Filed: 09/25/22 08:22> VTE Prior VTE?: No <Jody Lu PA-C - Last Filed: 09/25/22 08:22> VTE Risk Level:: Medical - moderate - high <CAROL Parekh Last Filed: 09/25/22 08:22> VTE Device Contraindication: N/A - Device Ordered <Jody Lu PA-C - Last Filed: 09/25/22 08:22> VTE Drug Contraindication: N/A - Med Ordered <Jody Lu PA-C - Last Filed: 09/25/22 08:22>
[2022-09-25] MEDS: HYDROmorphone HCl 0.5 MG/0.5 ML SYRINGE IVPUSH ×4 (08:51→22:38)
--- NOTE | 2022-09-25 09:49 | P.PNIM_ITS ---
Subjective Subjective Date of Service: 09/25/22 Interval History: Seen and evaluated this morning complaining of pain in abdomen POD 1 Colostomy with stool in bag No fever, chills, hypoxia overnight Review of Systems anxious and depressed Denies fever or chills Physical Exam Vital Signs: Vital Signs: Last Vital Signs Temp 98 F 09/25/22 07:48 Pulse 109 H 09/25/22 07:48 Resp 19 09/25/22 08:51 BP 150/90 H 09/25/22 07:48 Pulse Ox 97 09/25/22 07:48 O2 Del Method Nasal Cannula 09/25/22 07:48 O2 Flow Rate 1 09/25/22 07:48 BMI result Body Mass Index 20.5 Const: Other: Constitutional : Awake, interactive, not in distress Neck : Normal inspection, Supple Cardiovascular : RRR, no JVP, no lower extremity edema Respiratory : good bilateral air entry, no crackles, wheezes or rhonchi Gastrointestinal: soft, lax, decreased bowel sounds, generalized tenderness, Colostomy in place with small amount of stool in bag Skin : Warm, Dry Neurological : Alert & oriented x3, No focal deficit Objective Data Active Medications Bupropion HCl (Bupropion Hcl Xl 300 Mg Tab.Er.24h) 300 mg PO DAILY [facility] Last Admin: 09/25/22 08:46 Dose: Not Given Documented By: ONEIDA Non-Admin Reason: Patient Refused Clonazepam (Clonazepam 0.5 Mg Tablet) 0.25 mg PO TID PRN PRN Reason: anxiety Last Admin: 09/24/22 21:05 Dose: 0.25 mg Documented By: MICHELLE Clonidine HCl (Clonidine Hcl 0.1 Mg Tablet) 0.05 mg PO BID@0900,1500 [facility]; Protocol Last Admin: 09/25/22 08:46 Dose: Not Given Documented By: ONEIDA Non-Admin Reason: Patient Refused Clonidine HCl (Clonidine Hcl 0.2 Mg Tablet) 0.2 mg PO BEDTIME [facility]; Protocol Last Admin: 09/24/22 21:00 Dose: 0.2 mg Documented By: MICHELLE Famotidine (Famotidine 20 Mg Tablet) 20 mg PO BEDTIME [facility] Last Admin: 09/24/22 21:00 Dose: 20 mg Documented By: MICHELLE Gabapentin (Gabapentin 300 Mg Capsule) 300 mg PO TID [facility] Last Admin: 09/25/22 08:46 Dose: Not Given Documented By: COTATIYA Non-Admin Reason: Patient Refused Heparin Sodium (Porcine) (Heparin Sodium,Porcine 5,000 Unit/Ml Vial) 5,000 unit SUBCUT Q8H [facility] Hydromorphone HCl (Hydromorphone Hcl 0.5 Mg/0.5 Ml Syringe) 0.5 mg IVPUSH Q3H PRN; Protocol PRN Reason: Pain, Severe (Pain Scale 7-10) Last Admin: 09/25/22 08:51 Dose: 0.5 mg Documented By: COTATIYA Sodium Chloride (Sodium Chloride 0.45 %) 1,000 mls @ 80 mls/hr IVCONT .[id number] [facility] Last Admin: 09/25/22 07:15 Dose: Not Given Documented By: COTATIYA Non-Admin Reason: IV Running Acetaminophen (Ofirmev) 1,000 mg in 100 mls @ 400 mls/hr IV Q6H [facility] Last Infusion: 09/25/22 05:32 Dose: 0 mls/hr Documented By: MICHELLE Methadone HCl (Methadone Hcl 20 Mg/2 Ml Oral.Conc) 65 mg PO DAILY [facility] Last Admin: 09/25/22 08:46 Dose: Not Given Documented By: COTATIYA Non-Admin Reason: Patient Refused Nicotine (Nicotine 14 Mg Patch.Td24) 14 mg TRANSDERMA DAILY [facility] Last Admin: 09/25/22 08:44 Dose: Not Given Documented By: COTATIYA Non-Admin Reason: Patient Refused Nicotine Polacrilex (Nicotine Polacrilex 2 Mg Gum) 4 mg BUCCAL Q2H PRN PRN Reason: Nicotine Cravings Omeprazole (Omeprazole 40 Mg Capsule.Dr) 40 mg PO DAILY@0630 [facility] Last Admin: 09/25/22 05:14 Dose: 40 mg Documented By: MICHELLE Ondansetron HCl (Ondansetron Odt 4 Mg Tab.Rapdis) 4 mg TRANSLINGU Q6H PRN PRN Reason: Nausea Oxycodone HCl (Oxycodone Hcl Immed Release 5 Mg Tablet) 10 mg PO Q4H PRN PRN Reason: severe pain Last Admin: 09/25/22 01:45 Dose: 10 mg Documented By: MICHELLE Prednisone (Prednisone 10 Mg Tablet) 30 mg PO DAILY [facility]; Taper Stop: 10/15/22 08:59 Last Admin: 09/25/22 08:46 Dose: Not Given Documented By: ONEIDA Non-Admin Reason: Patient Refused Quetiapine Fumarate (Quetiapine Fumarate 50 Mg Tablet) 50 mg PO Q4H PRN PRN Reason: AH/agitation Last Admin: 09/24/22 06:24 Dose: 50 mg Documented By: WESTLEY Quetiapine Fumarate (Quetiapine Fumarate 300 Mg Tablet) 300 mg PO BEDTIME [facility] Last Admin: 09/24/22 21:00 Dose: 300 mg Documented By: MICHELLE Quetiapine Fumarate (Quetiapine Fumarate 100 Mg Tablet) 100 mg PO BID@0900,1500 [facility] Last Admin: 09/25/22 08:46 Dose: Not Given Documented By: ONEIDA Non-Admin Reason: Patient Refused Sodium Chloride (0.9 % Sodium Chloride Flush 3 Ml Syringe) [facility] Last Admin: 09/25/22 07:06 Dose: Not Given Documented By: ONEIDA Non-Admin Reason: IV Running Sodium Chloride (0.9 % Sodium Chloride Flush 3 Ml Syringe) 3 ml IVFLUSH QSLAFT [facility] Last Admin: 09/25/22 07:06 Dose: Not Given Documented By: ONEIDA Non-Admin Reason: IV Running Thiamine HCl (Thiamine Hcl 100 Mg Tablet) 100 mg PO DAILY [facility] Last Admin: 09/25/22 08:46 Dose: Not Given Documented By: ONEIDA Non-Admin Reason: Patient Refused Trazodone HCl (Trazodone Hcl 50 Mg Tablet) 50 mg PO BEDTIME MRX1 PRN PRN Reason: Insomnia Last Admin: 09/24/22 23:51 Dose: 50 mg Documented By: MICHELLE Trazodone HCl (Trazodone Hcl 100 Mg Tablet) 200 mg PO BEDTIME [facility] Last Admin: 09/24/22 21:00 Dose: 200 mg Documented By: MICHELLE Labs 09/25/22 06:18 09/25/22 06:18 Labs: Laboratory Results - last 24 hr 09/24/22 09/25/22 09/25/22 10:07 06:18 06:18 MCV 91.6 MCH 28.8 MCHC 31.5 RDW 15.9 Plt Count 367 MPV 8.3 L Absolute Nucleated RBC 0.000 Nucleated RBC % (auto) 0.0 Anion Gap 13 15 Estim Creat Clear Calc 123.7 115.3 Estimated GFR > 60 > 60 Random Glucose 84 Fasting Glucose 92 Calcium 8.3 L 8.5 Assessment and Plan (1) Colitis: Status: Acute (2) Sigmoid stricture: Status: Acute Plan 47-year-old patient with PMH of hypertension, IV drug abuse, cocaine abuser, hepatitis-C, depression, PTSD, depression with SI and suicidal attempt, anxiety and Crohns disease on steroids admitted to surgery team from adult psychiatry for management of intractable abdominal pain, poor PO intake as CT scan showing worsening stricture of colon. # Colon stricture POD 1, post Maya procedure change morphine to dilaudid surgical team following Start TPN advance diet as tolerated # Crohns disease w exacerbation Continue tappering dose of steroids 30 mg start 09/18 Continue [facility] following #Polysubstance abuse with opiate dependence continue methadone # MDD resume psych meds as prescribed No SI thoughts to get Care team eval prior to DC # HTN Clonidine Continue rest of home meds Thank you for the consult will continue to monitor the patient with you as needed Time Spent With Patient Time: Total time managing care of this patient today ____ minutes. Quality Stroke Does the patient have a stroke diagnosis?: No VTE Prior VTE?: No VTE Risk Level:: Medical - moderate - high VTE Device Contraindication: N/A - Device Ordered VTE Drug Contraindication: N/A - Med Ordered
--- NOTE | 2022-09-25 11:19 | MHC.CLN ---
NUTRITION CONSULT FOR TPN. DIET=CLEAR LIQUIDS. RECOMMEND DAY 1 TPN D15AA5 AT 41.67ML PER HOUR. PROVIDES 710 KCALS, 50 G PROTEIN, 150 G DEXTROSE. REPLETE LYTES NEEDED. CHECK LABS FOR REFEEDING: MAGNESIUM, PHOSPHORUS, POTASSIUM. CHECK TRIGLYCERIDES. CONTINUE SAME RATE FOR DAY 2: D15AA5 AT 41.67 ML PER HOUR. REPLETE LYTES NEEDED. MONITOR LABS. DAY 3 ADVANCE TO MAX GOAL RATE: D15AA5 AT 70 ML PER HOUR. ADD 35 ML PER HOUR OF 20% LIPIDS. PROVIDES 2033 KCALS (30.5 KCALS/KG), 84 G PROTEIN (1.26 G/KG). REPLETE LYTES NEEDED. MONITOR FOR PO TOLERANCE AND DIET ADVANCEMENT. FOLLOW FOR TPN AND LABS.
--- NOTE | 2022-09-25 11:31 | HO.POSTANES ---
Post Anesthesia Evaluation Post Anesthesia Evaluation Date of Service: 09/25/22 Vital Signs: Vital Signs Temp Pulse Resp BP Pulse Ox O2 Del Method O2 Flow Rate 09/25/22 08:51 19 09/25/22 11:26 97.6 F 109 H 18 143/90 H 94 Nasal Cannula 1 09/25/22 07:48 98 F 109 H 16 150/90 H 97 Nasal Cannula 1 09/25/22 11:27 97 F 72 09/25/22 04:00 98.4 F 107 H 18 158/94 H 95 Nasal Cannula 1 Anesthesia: General Endotracheal-GETA Mental Status: Awake Pain Control: Satisfactory Nausea/Vomiting: None Hydration: Adequate Anesthesia-Related Issues: No Anes. Related Issues
[2022-09-25 12:48] LABS: Albumin Level 2.3 g/dL (3.5-5.0); Magnesium 1.7 mg/dL (1.6-2.6)
--- NOTE | 2022-09-25 13:04 | PM.GIPN ---
Subjective Subjective Date of Service: 09/25/22 Interval History: Pt with new dx of possible crohns disease. Adm to hospital after S.I however course complicated by sigmoid stricture which has not been steroid responsive, leading to progressive LBO s/p hand assisted lap sigmoidectomy with colostomy formation and JAYLYN ( - Dr Winslow). Seen at bedside today. In significant pain still which goes away only when he lays still but able to tolerate PO fluids. Vital signs with tachycardia. Critical Care Time (minutes): 0 Physical Exam Vital Signs: Vital Signs: Last Vital Signs Temp 97 F 09/25/22 11:27 Pulse 72 09/25/22 11:27 Resp 18 09/25/22 11:26 BP 143/90 H 09/25/22 11:26 Pulse Ox 94 09/25/22 11:26 O2 Del Method Nasal Cannula 09/25/22 11:26 O2 Flow Rate 1 09/25/22 11:26 BMI result Body Mass Index 20.5 Gen appear: pale and ill appearing Abd: unable to palpate due to significant pain, ostomy with brown semi formed stool Objective Data Labs 09/25/22 06:18 09/25/22 06:18 Labs: Laboratory Results - last 24 hr 09/25/22 09/25/22 09/25/22 06:18 06:18 12:23 WBC 8.3 RBC 3.33 L Hgb 9.6 L Hct 30.5 L MCV 91.6 MCH 28.8 MCHC 31.5 RDW 15.9 Plt Count 367 MPV 8.3 L Absolute Nucleated RBC 0.000 Nucleated RBC % (auto) 0.0 Sodium 134 L Potassium 4.5 Chloride 95 L Carbon Dioxide 29 Anion Gap 15 BUN 14 Creatinine 0.73 Estim Creat Clear Calc 115.3 Estimated GFR > 60 Random Glucose 84 Calcium 8.5 Phosphorus 4.0 Magnesium 1.7 Albumin 2.3 L Procedures Date of Service Date of Service: 09/25/22 Progress Note: A&P Assessment and plan (1) Colitis: Status: Acute (2) Sigmoid stricture: Status: Acute (3) Abdominal pain: Status: Deleted Plan #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 Pain level quite significant on my exam despite oxy and dilaudid on board. TOlerating PO fluids though and movign bowels. Recommendations: - As this was steroid refractory, limited benefit of cont PO steroids post-op. Can taper off by 10mg every 3 days. - Will likely need anti-TNF tx, path awaited for definite diagnosis (HBV, HIV and TSPOT neg) - In the meantime, start Flagyl 250mg TID - TPMT ordered as will likely benefit from combination therapy Time Spent With Patient Time: Total time managing care of this patient today ____ minutes. Quality Stroke Does the patient have a stroke diagnosis?: No VTE Prior VTE?: No VTE Risk Level:: Medical - moderate - high VTE Device Contraindication: N/A - Device Ordered VTE Drug Contraindication: N/A - Med Ordered
--- NOTE | 2022-09-25 15:16 | PM.EVENT ---
Event Note Date of Service: 09/25/22 Event Note: seen on PM rounds appears to have adequate pain control getting pain meds regularly tender on abdomen stable vs continue pain mgt - on narcotics, Ofirmev keep on clear liquids TPN ordered labs in AM dw GI - re active IBD Time Spent With Patient Time: Total time managing care of this patient today ____ minutes.
--- NOTE | 2022-09-25 16:11 | MHC.CM.PN ---
No dc today per MD rounds. Patient from [facility], will need Care Team assessment once medically cleared.
--- NOTE | 2022-09-25 17:42 | PC.NURSE ---
order to remove lino catheter. Patient refusing at this time. Educated on risk for infection with prolonged catheter in place. Patient states, I want it in until the morning . PA notified of patient's refusal. Patient encouraged to get OOB to chair, refusing at this time. Refusing PO medications. Patient stating, I just want the pain medications, I am good . Dressings to abdomen C/D/I. VSS. afebrile. Sitter at bedside for safety.
[2022-09-25] MEDS: metroNIDAZOLE 250 MG TABLET PO ×2 (18:45→19:43)
[2022-09-25] MEDS: traZODone HCL 100 MG TABLET 200 MG PO (19:42)
[2022-09-25] MEDS: cloNIDine HCL 0.2 MG TABLET PO (19:43)
[2022-09-25] MEDS: Gabapentin 100 MG CAPSULE PO (19:43)
[2022-09-25] MEDS: QUEtiapine Fumarate 100 MG TABLET PO (19:44)
[2022-09-25] MEDS: Famotidine 20 MG TABLET PO (19:44)
[2022-09-25] MEDS: 0.9 % Sodium Chloride Flush 3 ML SYRINGE IVFLUSH (19:45)
[2022-09-25] MEDS: Heparin Sodium,Porcine 5,000 UNIT/ML VIAL 5000 UNIT SUBCUT (22:43)
[2022-09-26] VITALS (7 sets, daily range): BP systolic 120–133; BP diastolic 75–87; PULSE 77–95; RESP 16–19; TEMP 36.1–36.4; O2SAT 95–97
[2022-09-26] MEDS: Sodium Chloride 0.45 % 1,000 ML 80 ML IVCONT (03:37)
[2022-09-26] MEDS: HYDROmorphone HCl 0.5 MG/0.5 ML SYRINGE IVPUSH ×6 (05:16→22:09)
[2022-09-26] MEDS: Acetaminophen 1,000 MG/100 ML PIGGYBACK 400 MG IV ×4 (05:18→22:08)
[2022-09-26] MEDS: Heparin Sodium,Porcine 5,000 UNIT/ML VIAL 5000 UNIT SUBCUT ×3 (05:20→22:08)
[2022-09-26] MEDS: Omeprazole 40 MG CAPSULE.DR PO (05:20)
[2022-09-26] MEDS: predniSONE 10 MG TABLET PO (09:01)
[2022-09-26] MEDS: Gabapentin 100 MG CAPSULE PO ×3 (09:02→20:01)
[2022-09-26] MEDS: methADONE HCl 20 MG/2 ML ORAL.CONC 65 MG PO (09:02)
[2022-09-26] MEDS: cloNIDine HCL 0.1 MG TABLET 0.05 MG PO ×2 (09:02→15:02)
[2022-09-26] MEDS: metroNIDAZOLE 250 MG TABLET PO ×3 (09:02→20:00)
[2022-09-26] MEDS: Thiamine HCL 100 MG TABLET PO (09:02)
[2022-09-26] MEDS: buPROPion HCl XL 300 MG TAB.ER.24H PO (09:02)
--- NOTE | 2022-09-26 09:25 | PM.PNGS ---
Subjective Subjective Date of Service: 09/26/22 Patient reports: still having pain, flatus and bowel movement Interval history: The patient is seen in coverage for Dr. Winslow Patient reports continued incisional pain and is tolerating some liquids but appears withdrawn. He reports pain. He is not interested in advancing his diet but denies any chest pain, difficulty breathing or shortness of breath. He denies any other new symptoms such as localizing weakness or visual disturbances. Physical Exam Vital Signs: Vital Signs: Last Vital Signs Temp 97.0 F 09/26/22 08:00 Pulse 95 09/26/22 08:00 Resp 19 09/26/22 09:00 BP 133/87 09/26/22 08:00 Pulse Ox 95 09/26/22 08:00 O2 Del Method Room Air 09/26/22 08:00 O2 Flow Rate 1 09/25/22 11:26 BMI result Body Mass Index 20.5 On exam he is nontoxic He is in no acute respiratory distress At his dressings are clean and intact and his ostomy pink and viable with both gas and stool present Abdomen is soft with no rigidity. Expected incisional tenderness is present Objective Data Active Medications Bupropion HCl (Bupropion Hcl Xl 300 Mg Tab.Er.24h) 300 mg PO DAILY COUNT [facility]CLUDES [facility] Last Admin: 09/26/22 09:02 Dose: 300 mg Documented By: ONEIDA Clonazepam (Clonazepam 0.5 Mg Tablet) 0.25 mg PO TID PRN PRN Reason: anxiety Last Admin: 09/24/22 21:05 Dose: 0.25 mg Documented By: MICHELLE Clonidine HCl (Clonidine Hcl 0.1 Mg Tablet) 0.05 mg PO BID@0900,1500 COUNT [facility]CLUDES [facility]; Protocol Last Admin: 09/26/22 09:02 Dose: 0.05 mg Documented By: ONEIDA Clonidine HCl (Clonidine Hcl 0.2 Mg Tablet) 0.2 mg PO BEDTIME COUNT [facility]CLUDES [facility]; Protocol Last Admin: 09/25/22 19:43 Dose: 0.2 mg Documented By: ARIEL Famotidine (Famotidine 20 Mg Tablet) 20 mg PO BEDTIME COUNT [facility]CLUDES [facility] Last Admin: 09/25/22 19:44 Dose: 20 mg Documented By: ARIEL Gabapentin (Gabapentin 100 Mg Capsule) 100 mg PO TID COUNT [facility]CLUDES [facility] Last Admin: 09/26/22 09:02 Dose: 100 mg Documented By: MARCO ANTONIOEMA Heparin Sodium (Porcine) (Heparin Sodium,Porcine 5,000 Unit/Ml Vial) 5,000 unit SUBCUT Q8H COUNT [facility]CLUDES THE [facility] Last Admin: 09/26/22 05:20 Dose: 5,000 unit Documented By: ARIEL Hydromorphone HCl (Hydromorphone Hcl 0.5 Mg/0.5 Ml Syringe) 0.5 mg IVPUSH Q3H PRN; Protocol PRN Reason: Pain, Severe (Pain Scale 7-10) Last Admin: 09/26/22 09:00 Dose: 0.5 mg Documented By: COTEMA Acetaminophen (Ofirmev) 1,000 mg in 100 mls @ 400 mls/hr IV Q6H COUNT [facility]CLUDES [facility] Last Infusion: 09/26/22 05:35 Dose: 0 mls/hr Documented By: ARIEL Multivitamins 10 ml/ Trace Metals 1 ml/ Amino Acids/Electrolytes 1,000.08 mls @ 41.67 mls/hr IV DAILY@1800 COUNT [facility]CLUDES THE [facility] Stop: 09/26/22 17:59 Last Admin: 09/25/22 20:18 Dose: 41.67 mls/hr Documented By: ARIEL Methadone HCl (Methadone Hcl 20 Mg/2 Ml Oral.Conc) 65 mg PO DAILY COUNT [facility]CLUDES [facility] Last Admin: 09/26/22 09:02 Dose: 65 mg Documented By: COTEMA Metronidazole (Metronidazole 250 Mg Tablet) 250 mg PO TID COUNT [facility]CLUDES [facility] Last Admin: 09/26/22 09:02 Dose: 250 mg Documented By: COTEMA Nicotine (Nicotine 14 Mg Patch.Td24) 14 mg TRANSDERMA DAILY COUNT [facility]CLUDES [facility] Last Admin: 09/26/22 08:54 Dose: Not Given Documented By: COTEMA Non-Admin Reason: Patient Refused Nicotine Polacrilex (Nicotine Polacrilex 2 Mg Gum) 4 mg BUCCAL Q2H PRN PRN Reason: Nicotine Cravings Omeprazole (Omeprazole 40 Mg Capsule.Dr) 40 mg PO DAILY@0630 COUNT [facility]CLUDES [facility] Last Admin: 09/26/22 05:20 Dose: 40 mg Documented By: ARIEL Ondansetron HCl (Ondansetron Odt 4 Mg Tab.Rapdis) 4 mg TRANSLINGU Q6H PRN PRN Reason: Nausea Oxycodone HCl (Oxycodone Hcl Immed Release 5 Mg Tablet) 10 mg PO Q4H PRN PRN Reason: severe pain Last Admin: 09/25/22 18:47 Dose: 10 mg Documented By: DAPHNE Prednisone (Prednisone 10 Mg Tablet) 20 mg PO DAILY COUNT [facility]CLUDES [facility]; Taper Stop: 10/02/22 08:59 Last Admin: 09/26/22 09:01 Dose: 20 mg Documented By: ONEIDA Quetiapine Fumarate (Quetiapine Fumarate 50 Mg Tablet) 50 mg PO Q4H PRN PRN Reason: AH/agitation Last Admin: 09/24/22 06:24 Dose: 50 mg Documented By: WESTLEY Quetiapine Fumarate (Quetiapine Fumarate 100 Mg Tablet) 100 mg PO BID@0900,1500 COUNT [facility]CLUDES [facility] Last Admin: 09/25/22 08:46 Dose: Not Given Documented By: ONEIDA Non-Admin Reason: Patient Refused Quetiapine Fumarate (Quetiapine Fumarate 100 Mg Tablet) 100 mg PO BEDTIME COUNT INCLUDES [facility] Last Admin: 09/25/22 19:44 Dose: 100 mg Documented By: ARIEL Sodium Chloride (0.9 % Sodium Chloride Flush 3 Ml Syringe) [facility] Last Admin: 09/26/22 07:05 Dose: Not Given Documented By: ONEIDA Non-Admin Reason: IV Running Sodium Chloride (0.9 % Sodium Chloride Flush 3 Ml Syringe) 3 ml IVFLUSH [facility] Last Admin: 09/26/22 07:05 Dose: Not Given Documented By: ONEIDA Non-Admin Reason: IV Running Thiamine HCl (Thiamine Hcl 100 Mg Tablet) 100 mg PO DAILY COUNT [facility]CLUDES [facility] Last Admin: 09/26/22 09:02 Dose: 100 mg Documented By: ONEIDA Trazodone HCl (Trazodone Hcl 50 Mg Tablet) 50 mg PO BEDTIME MRX1 PRN PRN Reason: Insomnia Last Admin: 09/24/22 23:51 Dose: 50 mg Documented By: MICHELLE Trazodone HCl (Trazodone Hcl 100 Mg Tablet) 200 mg PO BEDTIME COUNT [facility]CLUDES [facility] Last Admin: 09/25/22 19:42 Dose: 200 mg Documented By: ARIEL Labs 09/25/22 06:18 09/25/22 06:18 Labs: Laboratory Results - last 24 hr 09/25/22 12:23 Phosphorus 4.0 Magnesium 1.7 Albumin 2.3 L Procedures Date of Service Date of Service: 09/26/22 Progress Note: A&P Assessment and plan (1) Status post Maya procedure: Status: Acute (2) Colitis: Status: Acute (3) Intractable abdominal pain: Status: Acute (4) MDD (major depressive disorder), recurrent episode, moderate: Status: Acute Plan The patient has bowel function and I will advance him to a full liquid diet. He declined any interested in having his diet advanced. Explained to the patient the balance of narcotics and decreased bowel function and since he does not have any active tachycardia to mandate increasing his narcotics, I would recommend we continue to treat as previously ordered. Surgically, the patient's diet can be advanced since he has bowel function, but he notes no interest in food. Time Spent With Patient Time: Total time managing care of this patient today ____ minutes. Quality Stroke Does the patient have a stroke diagnosis?: No VTE Prior VTE?: No VTE Risk Level:: Medical - moderate - high VTE Device Contraindication: N/A - Device Ordered VTE Drug Contraindication: N/A - Med Ordered
[2022-09-26 09:56] LABS: Anion Gap 10 (12-20); Blood Urea Nitrogen 14 mg/dL (9-16); Carbon Dioxide 31 mmol/L (22-29); Chloride 99 mmol/L (96-108); Creatinine Clr Calc Pharmacy 121.9; Estimated Glomerular Filt Rate > 60; Glucose Fasting 120 mg/dL (60-99); Magnesium 1.9 mg/dL (1.6-2.6); Phosphorus 2.7 mg/dL (2.7-4.5); Potassium 3.7 mmol/L (3.3-5.1); Sodium 136 mmol/L (135-145); Total Protein 4.4 g/dL (6.5-8.0)
[2022-09-26 09:57] LABS: Triglycerides 112 mg/dL
[2022-09-26] MEDS: oxyCODONE HCl Immed Release 5 MG TABLET 10 MG PO ×3 (10:23→20:00)
[2022-09-26] MEDS: Potassium Phosphate/NS 15 MMOL/250 ML PLAST..BAG 62.5 MMOL IV (12:14)
[2022-09-26] MEDS: 0.9 % Sodium Chloride Flush 3 ML SYRINGE IVFLUSH ×2 (15:02)
[2022-09-26] MEDS: cloNIDine HCL 0.2 MG TABLET PO (20:00)
[2022-09-26] MEDS: Famotidine 20 MG TABLET PO (20:01)
[2022-09-26] MEDS: QUEtiapine Fumarate 100 MG TABLET PO (20:01)
[2022-09-26] MEDS: traZODone HCL 100 MG TABLET 200 MG PO (20:02)
[2022-09-27] MEDS: HYDROmorphone HCl 0.5 MG/0.5 ML SYRINGE IVPUSH ×6 (04:37→21:00)
[2022-09-27] MEDS: Acetaminophen 1,000 MG/100 ML PIGGYBACK 400 MG IV ×3 (04:46→17:25)
[2022-09-27] MEDS: Omeprazole 40 MG CAPSULE.DR PO (04:50)
[2022-09-27] MEDS: Heparin Sodium,Porcine 5,000 UNIT/ML VIAL 5000 UNIT SUBCUT ×2 (06:23→14:21)
[2022-09-27 08:00] VITALS: BP 112/76; PULSE 72; RESP 16; TEMP 36.1; O2SAT 97
[2022-09-27] MEDS: buPROPion HCl XL 300 MG TAB.ER.24H PO (08:30)
[2022-09-27] MEDS: Gabapentin 100 MG CAPSULE PO ×3 (08:30→20:57)
[2022-09-27] MEDS: metroNIDAZOLE 250 MG TABLET PO ×3 (08:30→20:59)
[2022-09-27] MEDS: Thiamine HCL 100 MG TABLET PO (08:30)
[2022-09-27] MEDS: predniSONE 10 MG TABLET PO (08:30)
[2022-09-27] MEDS: methADONE HCl 20 MG/2 ML ORAL.CONC 65 MG PO (08:31)
[2022-09-27] MEDS: 0.9 % Sodium Chloride Flush 3 ML SYRINGE IVFLUSH (08:36)
[2022-09-27] MEDS: cloNIDine HCL 0.1 MG TABLET 0.05 MG PO ×2 (08:38→14:19)
[2022-09-27 08:58] LABS: Anion Gap 11 (12-20); Blood Urea Nitrogen 13 mg/dL (9-16); Calcium 8.1 mg/dL (8.4-10.2); Carbon Dioxide 29 mmol/L (22-29); Chloride 102 mmol/L (96-108); Creatinine Clr Calc Pharmacy 142.6; Estimated Glomerular Filt Rate > 60; Glucose Random 89 mg/dL (60-115); Phosphorus 3.1 mg/dL (2.7-4.5); Sodium 138 mmol/L (135-145)
--- NOTE | 2022-09-27 09:35 | PM.PNGS ---
Subjective Subjective Date of Service: 09/27/22 Patient reports: feels better, tolerating liquids well, flatus and bowel movement Interval history: The patient is seen in coverage for Dr. Winslow Patient reports continued incisional pain and is tolerating some liquids but appears withdrawn. He reports less pain today and assured me he would get out of bed to walk after his Ortiz catheter is removed. He is interested in advancing his diet but notes that he does not eat any poultry including turkey or check in, only beef and pork. He otherwise denies any chest pain, difficulty breathing or shortness of breath. He denies any other new symptoms such as localizing weakness or visual disturbances. Physical Exam Vital Signs: Vital Signs: Last Vital Signs Temp 96.9 F 09/27/22 08:00 Pulse 72 09/27/22 08:00 Resp 16 09/27/22 08:00 BP 112/76 09/27/22 08:00 Pulse Ox 97 09/27/22 08:00 O2 Del Method Room Air 09/27/22 08:00 O2 Flow Rate 1 09/25/22 11:26 BMI result Body Mass Index 20.5 On exam he is in better spirits today His sclera remain anicteric PERRLA, EOMI He is in no acute respiratory distress Ostomy is pink and viable with gas and stool expressed Abdominal pain is appropriate Ortiz catheter is in place with clear yellow urine with no blood. Patient understands this will be removed today. Objective Data Active Medications Bupropion HCl (Bupropion Hcl Xl 300 Mg Tab.Er.24h) 300 mg PO DAILY [facility] Last Admin: 09/27/22 08:30 Dose: 300 mg Documented By: UCHE Clonazepam (Clonazepam 0.5 Mg Tablet) 0.25 mg PO TID PRN PRN Reason: anxiety Last Admin: 09/24/22 21:05 Dose: 0.25 mg Documented By: MICHELLE Clonidine HCl (Clonidine Hcl 0.1 Mg Tablet) 0.05 mg PO BID@0900,1500 [facility]; Protocol Last Admin: 09/27/22 08:38 Dose: 0.05 mg Documented By: UCHE Clonidine HCl (Clonidine Hcl 0.2 Mg Tablet) 0.2 mg PO BEDTIME [facility]; Protocol Last Admin: 09/26/22 20:00 Dose: 0.2 mg Documented By: ARIEL Famotidine (Famotidine 20 Mg Tablet) 20 mg PO BEDTIME [facility] Last Admin: 09/26/22 20:01 Dose: 20 mg Documented By: ARIEL Gabapentin (Gabapentin 100 Mg Capsule) 100 mg PO TID [facility] Last Admin: 09/27/22 08:30 Dose: 100 mg Documented By: UCHE Heparin Sodium (Porcine) (Heparin Sodium,Porcine 5,000 Unit/Ml Vial) 5,000 unit SUBCUT Q8H [facility] Last Admin: 09/27/22 06:23 Dose: 5,000 unit Documented By: ARIEL Hydromorphone HCl (Hydromorphone Hcl 0.5 Mg/0.5 Ml Syringe) 0.5 mg IVPUSH Q3H PRN; Protocol PRN Reason: Pain, Severe (Pain Scale 7-10) Last Admin: 09/27/22 08:27 Dose: 0.5 mg Documented By: UCHE Acetaminophen (Ofirmev) 1,000 mg in 100 mls @ 400 mls/hr IV Q6H [facility] Last Infusion: 09/27/22 05:04 Dose: 0 mls/hr Documented By: ARIEL Amino Acids/Electrolytes (Clinimix E 5%-15%) 1,000 mls @ 41.67 mls/hr IV DAILY@1800 [facility] Stop: 09/27/22 17:59 Last Admin: 09/26/22 17:38 Dose: 41.67 mls/hr Documented By: COTEMA Methadone HCl (Methadone Hcl 20 Mg/2 Ml Oral.Conc) 65 mg PO DAILY [facility] Last Admin: 09/27/22 08:31 Dose: 65 mg Documented By: UCHE Metronidazole (Metronidazole 250 Mg Tablet) 250 mg PO TID [facility] Last Admin: 09/27/22 08:30 Dose: 250 mg Documented By: UCHE Nicotine (Nicotine 14 Mg Patch.Td24) 14 mg TRANSDERMA DAILY [facility] Last Admin: 09/27/22 08:31 Dose: Not Given Documented By: UCHE Non-Admin Reason: Patient Refused Nicotine Polacrilex (Nicotine Polacrilex 2 Mg Gum) 4 mg BUCCAL Q2H PRN PRN Reason: Nicotine Cravings Omeprazole (Omeprazole 40 Mg Capsule.Dr) 40 mg PO DAILY@0630 [facility] Last Admin: 09/27/22 04:50 Dose: 40 mg Documented By: ARIEL Ondansetron HCl (Ondansetron Odt 4 Mg Tab.Rapdis) 4 mg TRANSLINGU Q6H PRN PRN Reason: Nausea Oxycodone HCl (Oxycodone Hcl Immed Release 5 Mg Tablet) 10 mg PO Q4H PRN PRN Reason: severe pain Last Admin: 09/26/22 20:00 Dose: 10 mg Documented By: ARIEL Prednisone (Prednisone 10 Mg Tablet) 20 mg PO DAILY [facility]; Taper Stop: 10/02/22 08:59 Last Admin: 09/27/22 08:30 Dose: 20 mg Documented By: UCHE Quetiapine Fumarate (Quetiapine Fumarate 50 Mg Tablet) 50 mg PO Q4H PRN PRN Reason: AH/agitation Last Admin: 09/24/22 06:24 Dose: 50 mg Documented By: WESTLEY Quetiapine Fumarate (Quetiapine Fumarate 100 Mg Tablet) 100 mg PO BID@0900,1500 [facility] Last Admin: 09/25/22 08:46 Dose: Not Given Documented By: ONEIDA Non-Admin Reason: Patient Refused Quetiapine Fumarate (Quetiapine Fumarate 100 Mg Tablet) 100 mg PO BEDTIME [facility] Last Admin: 09/26/22 20:01 Dose: 100 mg Documented By: ARIEL Sodium Chloride (0.9 % Sodium Chloride Flush 3 Ml Syringe) 3 ml IVFLUSH [facility] Last Admin: 09/27/22 08:36 Dose: 3 ml Documented By: UCHE Sodium Chloride (0.9 % Sodium Chloride Flush 3 Ml Syringe) [facility] Last Admin: 09/26/22 22:11 Dose: Not Given Documented By: ARIEL Non-Admin Reason: triple flushed w/ 5ml Thiamine HCl (Thiamine Hcl 100 Mg Tablet) 100 mg PO DAILY [facility] Last Admin: 09/27/22 08:30 Dose: 100 mg Documented By: UCHE Trazodone HCl (Trazodone Hcl 50 Mg Tablet) 50 mg PO BEDTIME [facility]1 PRN PRN Reason: Insomnia Last Admin: 09/24/22 23:51 Dose: 50 mg Documented By: MICHELLE Trazodone HCl (Trazodone Hcl 100 Mg Tablet) 200 mg PO BEDTIME [facility] Last Admin: 09/26/22 20:02 Dose: 200 mg Documented By: ARIEL Labs 09/25/22 06:18 09/27/22 08:24 Labs: Laboratory Results - last 24 hr 09/26/22 09/26/22 09/26/22 09:32 09:32 09:32 Anion Gap 10 L Cancelled Estim Creat Clear Calc 121.9 Cancelled Estimated GFR > 60 Cancelled Random Glucose Cancelled Fasting Glucose 120 H Calcium 8.0 L Cancelled Phosphorus 2.7 Magnesium 1.9 Total Protein 4.4 L Triglycerides 112 09/27/22 08:24 Anion Gap 11 L Estim Creat Clear Calc 142.6 Estimated GFR > 60 Random Glucose 89 Fasting Glucose Calcium 8.1 L Phosphorus 3.1 Magnesium 2.0 Total Protein Triglycerides Procedures Date of Service Date of Service: 09/27/22 Progress Note: A&P Assessment and plan (1) Status post Maya procedure: Status: Acute (2) Colitis: Status: Acute (3) Intractable abdominal pain: Status: Acute Plan Advanced to regular diet Encourage out of bed/ambulation Ortiz to be removed today The importance of eating protein 1st since the patient is recovering from surgery was discussed. Again, he notes that he only eats meat and will not eat poultry or fish. Additional protein supplements were ordered. Dr. Winslow to resume care tomorrow Time Spent With Patient Time: Total time managing care of this patient today ____ minutes. Quality Stroke Does the patient have a stroke diagnosis?: No VTE Prior VTE?: No VTE Risk Level:: Medical - moderate - high VTE Device Contraindication: N/A - Device Ordered VTE Drug Contraindication: N/A - Med Ordered
--- NOTE | 2022-09-27 10:46 | HO.PM.IMPN ---
Subjective Subjective Date of Service: 09/27/22 Interval History: Seen and evaluated this morning complaining of pain in abdomen but overall better tolerating PO POD 3 Colostomy with small amount of stool in bag No fever, chills, hypoxia overnight Review of Systems less anxious and depressed Denies fever or chills Physical Exam Vital Signs: Vital Signs: Last Vital Signs Temp 96.9 F 09/27/22 08:00 Pulse 72 09/27/22 08:00 Resp 16 09/27/22 08:00 BP 112/76 09/27/22 08:00 Pulse Ox 97 09/27/22 08:00 O2 Del Method Room Air 09/27/22 08:00 O2 Flow Rate 1 09/25/22 11:26 BMI result Body Mass Index 20.5 Const: Other: Constitutional : Awake, interactive, not in distress Neck : Normal inspection, Supple Cardiovascular : RRR, no JVP, no lower extremity edema Respiratory : good bilateral air entry, no crackles, wheezes or rhonchi Gastrointestinal: soft, lax, decreased bowel sounds, generalized tenderness, surgical wound covered with dressing, Colostomy in place with small amount of stool in bag Skin : Warm, Dry Neurological : Alert & oriented x3, No focal deficit Objective Data Active Medications Bupropion HCl (Bupropion Hcl Xl 300 Mg Tab.Er.24h) 300 mg PO DAILY [facility] Last Admin: 09/27/22 08:30 Dose: 300 mg Documented By: UCHE Clonazepam (Clonazepam 0.5 Mg Tablet) 0.25 mg PO TID PRN PRN Reason: anxiety Last Admin: 09/24/22 21:05 Dose: 0.25 mg Documented By: MICHELLE Clonidine HCl (Clonidine Hcl 0.1 Mg Tablet) 0.05 mg PO BID@0900,1500 [facility]; Protocol Last Admin: 09/27/22 08:38 Dose: 0.05 mg Documented By: UCHE Clonidine HCl (Clonidine Hcl 0.2 Mg Tablet) 0.2 mg PO BEDTIME [facility]; Protocol Last Admin: 09/26/22 20:00 Dose: 0.2 mg Documented By: ARIEL Famotidine (Famotidine 20 Mg Tablet) 20 mg PO BEDTIME [facility] Last Admin: 09/26/22 20:01 Dose: 20 mg Documented By: ARIEL Gabapentin (Gabapentin 100 Mg Capsule) 100 mg PO TID [facility] Last Admin: 09/27/22 08:30 Dose: 100 mg Documented By: UCHE Heparin Sodium (Porcine) (Heparin Sodium,Porcine 5,000 Unit/Ml Vial) 5,000 unit SUBCUT Q8H [facility] Last Admin: 09/27/22 06:23 Dose: 5,000 unit Documented By: ARIEL Hydromorphone HCl (Hydromorphone Hcl 0.5 Mg/0.5 Ml Syringe) 0.5 mg IVPUSH Q3H PRN; Protocol PRN Reason: Pain, Severe (Pain Scale 7-10) Last Admin: 09/27/22 08:27 Dose: 0.5 mg Documented By: UCHE Acetaminophen (Ofirmev) 1,000 mg in 100 mls @ 400 mls/hr IV Q6H [facility] Last Infusion: 09/27/22 05:04 Dose: 0 mls/hr Documented By: ARIEL Amino Acids/Electrolytes (Clinimix E 5%-15%) 1,000 mls @ 41.67 mls/hr IV DAILY@1800 [facility] Stop: 09/27/22 17:59 Last Admin: 09/26/22 17:38 Dose: 41.67 mls/hr Documented By: COTEMA Amino Acids/Electrolytes (Clinimix E 5%-15%) 1,680 mls @ 70 mls/hr IV DAILY@1800 [facility] Stop: 09/28/22 17:59 Fat Emulsion Intravenous (Intralipid) 210 mls @ 35 mls/hr IV DAILY@0000,1800 [facility] Stop: 09/28/22 05:59 Methadone HCl (Methadone Hcl 20 Mg/2 Ml Oral.Conc) 65 mg PO DAILY [facility] Last Admin: 09/27/22 08:31 Dose: 65 mg Documented By: UCHE Metronidazole (Metronidazole 250 Mg Tablet) 250 mg PO TID [facility] Last Admin: 09/27/22 08:30 Dose: 250 mg Documented By: UCHE Nicotine (Nicotine 14 Mg Patch.Td24) 14 mg TRANSDERMA DAILY [facility] Last Admin: 09/27/22 08:31 Dose: Not Given Documented By: UCHE Non-Admin Reason: Patient Refused Nicotine Polacrilex (Nicotine Polacrilex 2 Mg Gum) 4 mg BUCCAL Q2H PRN PRN Reason: Nicotine Cravings Omeprazole (Omeprazole 40 Mg Capsule.Dr) 40 mg PO DAILY@0630 [facility] Last Admin: 09/27/22 04:50 Dose: 40 mg Documented By: ARIEL Ondansetron HCl (Ondansetron Odt 4 Mg Tab.Rapdis) 4 mg TRANSLINGU Q6H PRN PRN Reason: Nausea Oxycodone HCl (Oxycodone Hcl Immed Release 5 Mg Tablet) 10 mg PO Q4H PRN PRN Reason: severe pain Last Admin: 09/26/22 20:00 Dose: 10 mg Documented By: ARIEL Prednisone (Prednisone 10 Mg Tablet) 20 mg PO DAILY [facility]; Taper Stop: 10/02/22 08:59 Last Admin: 09/27/22 08:30 Dose: 20 mg Documented By: UCHE Quetiapine Fumarate (Quetiapine Fumarate 50 Mg Tablet) 50 mg PO Q4H PRN PRN Reason: AH/agitation Last Admin: 09/24/22 06:24 Dose: 50 mg Documented By: WESTLEY Quetiapine Fumarate (Quetiapine Fumarate 100 Mg Tablet) 100 mg PO BID@0900,1500 [facility] Last Admin: 09/25/22 08:46 Dose: Not Given Documented By: ONEIDA Non-Admin Reason: Patient Refused Quetiapine Fumarate (Quetiapine Fumarate 100 Mg Tablet) 100 mg PO BEDTIME [facility] Last Admin: 09/26/22 20:01 Dose: 100 mg Documented By: ARIEL Sodium Chloride (0.9 % Sodium Chloride Flush 3 Ml Syringe) 3 ml IVFLUSH [facility] Last Admin: 09/27/22 08:36 Dose: 3 ml Documented By: UCHE Sodium Chloride (0.9 % Sodium Chloride Flush 3 Ml Syringe) [facility] Last Admin: 09/26/22 22:11 Dose: Not Given Documented By: ARIEL Non-Admin Reason: triple flushed w/ 5ml Thiamine HCl (Thiamine Hcl 100 Mg Tablet) 100 mg PO DAILY [facility] Last Admin: 09/27/22 08:30 Dose: 100 mg Documented By: UCHE Trazodone HCl (Trazodone Hcl 50 Mg Tablet) 50 mg PO BEDTIME MRX1 PRN PRN Reason: Insomnia Last Admin: 09/24/22 23:51 Dose: 50 mg Documented By: MICHELLE Trazodone HCl (Trazodone Hcl 100 Mg Tablet) 200 mg PO BEDTIME [facility] Last Admin: 09/26/22 20:02 Dose: 200 mg Documented By: ARIEL Labs 09/25/22 06:18 09/27/22 08:24 Labs: Laboratory Results - last 24 hr 09/27/22 08:24 Anion Gap 11 L Estim Creat Clear Calc 142.6 Estimated GFR > 60 Random Glucose 89 Calcium 8.1 L Phosphorus 3.1 Magnesium 2.0 Assessment and Plan (1) Status post Maya procedure: Status: Acute (2) Colitis: Status: Acute Plan 47-year-old patient with PMH of hypertension, IV drug abuse, cocaine abuser, hepatitis-C, depression, PTSD, depression with SI and suicidal attempt, anxiety and Crohns disease on steroids admitted to surgery team from adult psychiatry for management of intractable abdominal pain, poor PO intake as CT scan showing worsening stricture of colon. # Colon stricture POD 3, post Maya procedure PRN IV dilaudid surgical team following Start TPN advance diet as tolerated # Crohns disease w exacerbation Continue tappering dose of steroids 20 mg between 09/25-9 Continue [facility] following #Polysubstance abuse with opiate dependence continue methadone # MDD resume psych meds as prescribed No SI thoughts to get Care team eval prior to DC # HTN Clonidine Continue rest of home meds Thank you for the consult will continue to monitor the patient with you as needed Time Spent With Patient Time: Total time managing care of this patient today ____ minutes. Quality Stroke Does the patient have a stroke diagnosis?: No VTE Prior VTE?: No VTE Risk Level:: Medical - moderate - high VTE Device Contraindication: N/A - Device Ordered VTE Drug Contraindication: N/A - Med Ordered
[2022-09-27] MEDS: oxyCODONE HCl Immed Release 5 MG TABLET 10 MG PO ×2 (10:47→23:20)
--- NOTE | 2022-09-27 10:52 | PM.GIPN ---
Subjective Subjective Date of Service: 09/27/22 Interval History: Pt with new dx of possible crohns disease. Adm to hospital after S.I however course complicated by sigmoid stricture which was not been steroid responsive, leading to progressive LBO s/p hand assisted lap sigmoidectomy with colostomy formation and JAYLYN ( - Dr Winslow). Seen at bedside today. Doing significantly better than Wednesday. Has been up and about, appetite has improved as well. Pain level better. He in fact tells me that the pain is much different in intensity and character and seems to be localized just around the ostomy site, as opposed to diffuse abd pain and cramping previously. SIgmoid path pending. Critical Care Time (minutes): 0 Physical Exam Vital Signs: Vital Signs: Last Vital Signs Temp 96.9 F 09/27/22 08:00 Pulse 72 09/27/22 08:00 Resp 16 09/27/22 08:00 BP 112/76 09/27/22 08:00 Pulse Ox 97 09/27/22 08:00 O2 Del Method Room Air 09/27/22 08:00 O2 Flow Rate 1 09/25/22 11:26 BMI result Body Mass Index 20.5 Gen appear: NAD, nontoxic appearing Abd: soft, nondistended, ostomy output liquidy brown Objective Data Labs 09/25/22 06:18 09/27/22 08:24 Labs: Laboratory Results - last 24 hr 09/27/22 08:24 Sodium 138 Potassium 4.0 Chloride 102 Carbon Dioxide 29 Anion Gap 11 L BUN 13 Creatinine 0.59 Estim Creat Clear Calc 142.6 Estimated GFR > 60 Random Glucose 89 Calcium 8.1 L Phosphorus 3.1 Magnesium 2.0 Procedures Date of Service Date of Service: 09/27/22 Progress Note: A&P Assessment and plan (1) Colitis: Status: Acute (2) Sigmoid stricture: Status: Acute (3) Abdominal pain: Status: Deleted Plan #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 Pt doing much better today. Ambulating and looking forward to have a regular diet. Recommendations: - Cont pred taper as scheduled. - Cont Flagyl 250mg TID - TPMT sent out and pending - Will likely need anti-TNF tx, path awaited for definite diagnosis (HBV, HIV and TSPOT neg) Time Spent With Patient Time: Total time managing care of this patient today ____ minutes. Quality Stroke Does the patient have a stroke diagnosis?: No VTE Prior VTE?: No VTE Risk Level:: Medical - moderate - high VTE Device Contraindication: N/A - Device Ordered VTE Drug Contraindication: N/A - Med Ordered
[2022-09-27 15:46] VITALS: BP 136/89; PULSE 80; RESP 18; TEMP 35.9; O2SAT 97
[2022-09-27] MEDS: Fat Emulsions 20% 250 ML 35 ML IV (18:10)
[2022-09-27 19:42] VITALS: BP 133/87; PULSE 81; RESP 16; TEMP 35.9; O2SAT 97
[2022-09-27] MEDS: traZODone HCL 100 MG TABLET 200 MG PO (20:58)
[2022-09-27] MEDS: QUEtiapine Fumarate 100 MG TABLET PO (20:58)
[2022-09-27] MEDS: cloNIDine HCL 0.2 MG TABLET PO (20:59)
[2022-09-27] MEDS: Famotidine 20 MG TABLET PO (20:59)
[2022-09-27] MEDS: clonazePAM 0.5 MG TABLET 0.25 MG PO (20:59)
[2022-09-28] MEDS: HYDROmorphone HCl 0.5 MG/0.5 ML SYRINGE IVPUSH ×5 (00:39→22:56)
[2022-09-28] MEDS: Fat Emulsions 20% 250 ML 35 ML IV (00:39)
[2022-09-28] MEDS: Omeprazole 40 MG CAPSULE.DR PO (05:00)
[2022-09-28 07:41] VITALS: BP 113/75; PULSE 87; RESP 18; TEMP 36.3; O2SAT 96
[2022-09-28] MEDS: Gabapentin 100 MG CAPSULE PO ×3 (07:47→19:53)
[2022-09-28] MEDS: oxyCODONE HCl Immed Release 5 MG TABLET 10 MG PO ×2 (07:47→13:55)
[2022-09-28] MEDS: cloNIDine HCL 0.1 MG TABLET 0.05 MG PO ×2 (07:47→13:56)
[2022-09-28] MEDS: metroNIDAZOLE 250 MG TABLET PO ×3 (07:48→19:53)
[2022-09-28] MEDS: Thiamine HCL 100 MG TABLET PO (07:48)
[2022-09-28] MEDS: buPROPion HCl XL 300 MG TAB.ER.24H PO (07:48)
[2022-09-28] MEDS: predniSONE 10 MG TABLET PO (07:49)
--- NOTE | 2022-09-28 07:59 | P.PNGS_ITS ---
Subjective Subjective Date of Service: 09/28/22 <Jody Crocker PA-C - Last Filed: 09/28/22 08:04> 09/28/22 <Tay Winslow MD - Last Filed: 09/28/22 10:27> Interval history: Does not think his pain is better but has not required IV dilaudid since yesterday morning. Tolerating solid diet. OOB and ambulating. <Jody Crocker PA-C - Last Filed: 09/28/22 08:04> Physical Exam Vital Signs: Vital Signs: Last Vital Signs Temp 97.4 F 09/28/22 07:41 Pulse 87 09/28/22 07:41 Resp 18 09/28/22 07:41 BP 113/75 09/28/22 07:41 Pulse Ox 96 09/28/22 07:41 O2 Del Method Room Air 09/28/22 07:41 O2 Flow Rate 1 09/25/22 11:26 BMI result Body Mass Index 20.5 <Jody Crocker PA-C - Last Filed: 09/28/22 08:04> Const: General: comfortable, no acute distress and alert <Jody Crocker PA-C - Last Filed: 09/28/22 08:04> Orientation/consciousness: patient oriented x3 <CAROL Parekh Last Filed: 09/28/22 08:04> Resp: Effort & Inspection: normal respiratory effort <Jody Crocker PA-C - Last Filed: 09/28/22 08:04> GI: Other: stoma with flatus, small amt of stool in appliance <Jody Crocker PA-C - Last Filed: 09/28/22 08:04> Inspection: Yes incision (clean) <CAROL Parekh Last Filed: 09/28/22 08:04> Palpation (GI): Soft to palpation, Tenderness to palpation present (GI), no guarding and not rigid <CAROL Parekh Last Filed: 09/28/22 08:04> Skin: General skin exam: no rashes or lesions noted <CAROL Parekh Last Filed: 09/28/22 08:04> Neuro: General: patient oriented x3 and moves all extremities <Jody Crocker PA-C - Last Filed: 09/28/22 08:04> Objective Data Active Medications Bupropion HCl (Bupropion Hcl Xl 300 Mg Tab.Er.24h) 300 mg PO DAILY [facility] Last Admin: 09/28/22 07:48 Dose: 300 mg Documented By: ARGENTINA Clonazepam (Clonazepam 0.5 Mg Tablet) 0.25 mg PO TID PRN PRN Reason: anxiety Last Admin: 09/27/22 20:59 Dose: 0.25 mg Documented By: KAITLIN Clonidine HCl (Clonidine Hcl 0.1 Mg Tablet) 0.05 mg PO BID@0900,1500 [facility]; Protocol Last Admin: 09/28/22 07:47 Dose: 0.05 mg Documented By: ARGENTINA Clonidine HCl (Clonidine Hcl 0.2 Mg Tablet) 0.2 mg PO BEDTIME [facility]; Protocol Last Admin: 09/27/22 20:59 Dose: 0.2 mg Documented By: KAITLIN Famotidine (Famotidine 20 Mg Tablet) 20 mg PO BEDTIME [facility] Last Admin: 09/27/22 20:59 Dose: 20 mg Documented By: KAITLIN Gabapentin (Gabapentin 100 Mg Capsule) 100 mg PO TID [facility] Last Admin: 09/28/22 07:47 Dose: 100 mg Documented By: ARGENTINA Heparin Sodium (Porcine) (Heparin Sodium,Porcine 5,000 Unit/Ml Vial) 5,000 unit SUBCUT Q8H [facility] Last Admin: 09/28/22 06:45 Dose: Not Given Documented By: KAITLIN Non-Admin Reason: Patient Refused Hydromorphone HCl (Hydromorphone Hcl 0.5 Mg/0.5 Ml Syringe) 0.5 mg IVPUSH Q3H PRN; Protocol PRN Reason: Pain, Severe (Pain Scale 7-10) Last Admin: 09/28/22 04:57 Dose: 0.5 mg Documented By: KAITLIN Amino Acids/Electrolytes (Clinimix E 5%-15%) 1,680 mls @ 70 mls/hr IV DAILY@1800 NEIDA Stop: 09/28/22 17:59 Last Admin: 09/27/22 18:10 Dose: 70 mls/hr Documented By: JAZMYNE Methadone HCl (Methadone Hcl 20 Mg/2 Ml Oral.Conc) 65 mg PO DAILY [facility] Last Admin: 09/27/22 08:31 Dose: 65 mg Documented By: UCHE Metronidazole (Metronidazole 250 Mg Tablet) 250 mg PO TID [facility] Last Admin: 09/28/22 07:48 Dose: 250 mg Documented By: ARGENTINA Nicotine (Nicotine 14 Mg Patch.Td24) 14 mg TRANSDERMA DAILY [facility] Last Admin: 09/28/22 07:49 Dose: Not Given Documented By: ARGENTINA Non-Admin Reason: Patient Refused Nicotine Polacrilex (Nicotine Polacrilex 2 Mg Gum) 4 mg BUCCAL Q2H PRN PRN Reason: Nicotine Cravings Omeprazole (Omeprazole 40 Mg Capsule.Dr) 40 mg PO DAILY@0630 [facility] Last Admin: 09/28/22 05:00 Dose: 40 mg Documented By: KAITLIN Ondansetron HCl (Ondansetron Odt 4 Mg Tab.Rapdis) 4 mg TRANSLINGU Q6H PRN PRN Reason: Nausea Oxycodone HCl (Oxycodone Hcl Immed Release 5 Mg Tablet) 10 mg PO Q4H PRN PRN Reason: severe pain Last Admin: 09/28/22 07:47 Dose: 10 mg Documented By: ARGENTINA Prednisone (Prednisone 10 Mg Tablet) 20 mg PO DAILY [facility]; Taper Stop: 10/02/22 08:59 Last Admin: 09/28/22 07:49 Dose: 20 mg Documented By: ARGENTINA Quetiapine Fumarate (Quetiapine Fumarate 50 Mg Tablet) 50 mg PO Q4H PRN PRN Reason: AH/agitation Last Admin: 09/24/22 06:24 Dose: 50 mg Documented By: WESTLEY Quetiapine Fumarate (Quetiapine Fumarate 100 Mg Tablet) 100 mg PO BID@0900,1500 [facility] Last Admin: 09/25/22 08:46 Dose: Not Given Documented By: COTEMA Non-Admin Reason: Patient Refused Quetiapine Fumarate (Quetiapine Fumarate 100 Mg Tablet) 100 mg PO BEDTIME [facility] Last Admin: 09/27/22 20:58 Dose: 100 mg Documented By: KAITLIN Sodium Chloride (0.9 % Sodium Chloride Flush 3 Ml Syringe) 3 ml IVFLUSH QSHIFT [facility] Last Admin: 09/28/22 07:29 Dose: Not Given Documented By: ARGENTINA Non-Admin Reason: IV Running Sodium Chloride (0.9 % Sodium Chloride Flush 3 Ml Syringe) 3 [facility] Last Admin: 09/28/22 07:29 Dose: Not Given Documented By: ARGENTINA Non-Admin Reason: Duplicate Order Thiamine HCl (Thiamine Hcl 100 Mg Tablet) 100 mg PO DAILY [facility] Last Admin: 09/28/22 07:48 Dose: 100 mg Documented By: ARGENTINA Trazodone HCl (Trazodone Hcl 50 Mg Tablet) 50 mg PO BEDTIME MRX1 PRN PRN Reason: Insomnia Last Admin: 09/24/22 23:51 Dose: 50 mg Documented By: MICHELLE Trazodone HCl (Trazodone Hcl 100 Mg Tablet) 200 mg PO BEDTIME [facility] Last Admin: 09/27/22 20:58 Dose: 200 mg Documented By: KAITLIN <Jody Crocker PA-C - Last Filed: 09/28/22 08:04> Labs CBC & Chem 7: 09/25/22 06:18 09/27/22 08:24 <Jody Crocker PA-C - Last Filed: 09/28/22 08:04> Labs: Laboratory Results - last 24 hr 09/27/22 08:24 Anion Gap 11 L Estim Creat Clear Calc 142.6 Estimated GFR > 60 Random Glucose 89 Calcium 8.1 L Phosphorus 3.1 Magnesium 2.0 <Jody Crocker PA-C - Last Filed: 09/28/22 08:04> Procedures Date of Service Date of Service: 09/28/22 <Jody Crocker PA-C - Last Filed: 09/28/22 08:04> 09/28/22 <Tay Winslow MD - Last Filed: 09/28/22 10:27> Progress Note: A&P Assessment and plan (1) Status post Maya procedure: Status: Acute <Jody Crocker PA-C - Last Filed: 09/28/22 08:04> Assessment and Plan: Still sore on incision Still asking for pain meds Tolerating regular diet Stoma functioning well, with good stools Abdomen soft and benign Incision healing well Okay to DC TPN GI follow-up Improving well Seen and examined independently <Tay Winslow MD - Last Filed: 09/28/22 10:27> Assessment and Plan: 47 year old made initially admitted because of depression, polysubstance abuse, who developed left sided abd pain, he subsequently underwent colonoscopy showing a stricture at level 55 cm. He was started on steroids, mesalamine as initial impression was IBD type disease however he did not improve with time. Repeat CT scan 2 days prior showed dilatation of the entire colon all the way to the level of the stricture, with note of persistent edema as well of the entire colon and distal small bowel suggestive of Crohn's disease. Given the failure to improve with steroids, it was recommended to proceed with resection of the diseased segment. He is now POD #4 s/p hand assisted laparoscopic sigmoid resection, and colostomy, extensive lysis of adhesions. He was found to have a stricture at the sigmoid, extensive adhesions, edematous colon from the rectosigmoid all the way to the cecum, with fat creeping consistent with Crohn's disease. Continues to do well post op. Pain control improved. Tolerating diet and stoma beginning to function. VSS. Abd exam is benign- soft, incision clean, stoma with output. Will dc TPN. Encouraged PO analgesics. OOB/ambulation. Await pathology. Psych eval- will be ready for discharge soon. <Jody Crocker PA-C - Last Filed: 09/28/22 08:04> Time Spent With Patient Time: Total time managing care of this patient today ____ minutes. <Jody Crocker PA-C - Last Filed: 09/28/22 08:04> Quality Stroke Does the patient have a stroke diagnosis?: No <Jody Crocker PA-C - Last Filed: 09/28/22 08:04> VTE Prior VTE?: No <Jody Crocker PA-C - Last Filed: 09/28/22 08:04> VTE Risk Level:: Medical - moderate - high <CAROL Parekh Last Filed: 09/28/22 08:04> VTE Device Contraindication: N/A - Device Ordered <CAROL Parekh Last Filed: 09/28/22 08:04> VTE Drug Contraindication: N/A - Med Ordered <Jody Crocker PA-C - Last Filed: 09/28/22 08:04>
[2022-09-28] MEDS: methADONE HCl 20 MG/2 ML ORAL.CONC 65 MG PO (08:41)
[2022-09-28] MEDS: Ondansetron ODT 4 MG TAB.RAPDIS TRANSLINGU (10:15)
--- NOTE | 2022-09-28 10:55 | MHC.CLN ---
F/U TPN ADVANCED 09/27 TO MAX GOAL RATE: [id number] AT 70 ML PER HOUR. ADD 35 ML PER HOUR OF 20% LIPIDS. PROVIDES 2033 KCALS (30.5 KCALS/KG), 84 G PROTEIN (1.26 G/KG). ON 09/27 DIET ADVANCED TO REGULAR WITH ENSURE MAX TID (450 KCALS, 90 G PROTEIN). PO PER DOC 25-75%. TPN DISCONTINUED. MONITOR FOR PO TOLERANCE AND INTAKE.
--- NOTE | 2022-09-28 13:45 | MHC.CM.PN ---
PER MD ROUNDS, PT NOT READY TO DC TODAY DCP REMAINS HOME WITH NO SERVICES VIA PRIVATE TRANSPORT
[2022-09-28] MEDS: clonazePAM 0.5 MG TABLET 0.25 MG PO (13:55)
[2022-09-28 15:30] VITALS: BP 119/77; PULSE 86; RESP 18; TEMP 36.6; O2SAT 95
[2022-09-28 19:28] VITALS: BP 117/77; PULSE 83; RESP 18; TEMP 36.5; O2SAT 95
[2022-09-28] MEDS: QUEtiapine Fumarate 100 MG TABLET PO (19:52)
[2022-09-28] MEDS: traZODone HCL 100 MG TABLET 200 MG PO (19:52)
[2022-09-28] MEDS: cloNIDine HCL 0.2 MG TABLET PO (19:53)
[2022-09-28] MEDS: Famotidine 20 MG TABLET PO (19:53)
[2022-09-28] MEDS: 0.9 % Sodium Chloride Flush 3 ML SYRINGE IVFLUSH (19:53)
[2022-09-29] MEDS: Omeprazole 40 MG CAPSULE.DR PO (06:10)
[2022-09-29] MEDS: HYDROmorphone HCl 0.5 MG/0.5 ML SYRINGE IVPUSH (06:13)
[2022-09-29 06:17] VITALS: BP 117/71; PULSE 79; RESP 18; TEMP 36.6; O2SAT 94
[2022-09-29 07:37] VITALS: BP 119/64; PULSE 81; RESP 20; TEMP 36.6; O2SAT 96
[2022-09-29] MEDS: methADONE HCl 20 MG/2 ML ORAL.CONC 65 MG PO (09:01)
--- NOTE | 2022-09-29 09:01 | P.PNGS_ITS ---
Subjective Subjective Date of Service: 09/29/22 <Jody Crocker PA-C - Last Filed: 09/29/22 09:05> 09/29/22 <Tay Winslow MD - Last Filed: 09/29/22 09:37> Interval history: Tired this morning, c/o pain. States no one has told him whats wrong and going on with him. <Jody Crocker PA-C - Last Filed: 09/29/22 09:05> Physical Exam Vital Signs: Vital Signs: Last Vital Signs Temp 97.8 F 09/29/22 07:37 Pulse 81 09/29/22 07:37 Resp 20 09/29/22 07:37 BP 119/64 09/29/22 07:37 Pulse Ox 96 09/29/22 07:37 O2 Del Method Room Air 09/29/22 07:37 O2 Flow Rate 1 09/25/22 11:26 BMI result Body Mass Index 20.5 <CAROL Parekh Last Filed: 09/29/22 09:05> Const: General: comfortable, no acute distress and alert <Jody Crocker PA-C - Last Filed: 09/29/22 09:05> Orientation/consciousness: patient oriented x3 <CAROL Parekh Last Filed: 09/29/22 09:05> Resp: Effort & Inspection: normal respiratory effort <Jody Crocker PA-C - Last Filed: 09/29/22 09:05> GI: Other: ostomy viable appearing with soft brown stool in appliance <CAROL Parekh Last Filed: 09/29/22 09:05> Inspection: No distended and Yes incision (clean) <CAROL Parekh Last Filed: 09/29/22 09:05> Palpation (GI): Soft to palpation, Tenderness to palpation present (GI) (mild incisional), no guarding and not rigid <CAROL Parekh Last Filed: 09/29/22 09:05> Percussion: Yes normal to percussion <CAROL Parekh Last Filed: 09/29/22 09:05> Skin: General skin exam: no rashes or lesions noted <Jody Crocker PA-C - Last Filed: 09/29/22 09:05> Neuro: General: patient oriented x3 and moves all extremities <Jody Crocker PA-C - Last Filed: 09/29/22 09:05> Objective Data Active Medications Bupropion HCl (Bupropion Hcl Xl 300 Mg Tab.Er.24h) 300 mg PO DAILY [facility] Last Admin: 09/28/22 07:48 Dose: 300 mg Documented By: ARGENTINA Clonidine HCl (Clonidine Hcl 0.1 Mg Tablet) 0.05 mg PO BID@0900,1500 [facility]; Protocol Last Admin: 09/28/22 13:56 Dose: 0.05 mg Documented By: ARGENTINA Clonidine HCl (Clonidine Hcl 0.2 Mg Tablet) 0.2 mg PO BEDTIME [facility]; Protocol Last Admin: 09/28/22 19:53 Dose: 0.2 mg Documented By: CHRISTOPHER Comments: 117/77 Famotidine (Famotidine 20 Mg Tablet) 20 mg PO BEDTIME [facility] Last Admin: 09/28/22 19:53 Dose: 20 mg Documented By: CHRISTOPHER Gabapentin (Gabapentin 100 Mg Capsule) 100 mg PO TID [facility] Last Admin: 09/28/22 19:53 Dose: 100 mg Documented By: CHRISTOPHER Heparin Sodium (Porcine) (Heparin Sodium,Porcine 5,000 Unit/Ml Vial) 5,000 unit SUBCUT Q8H [facility] Last Admin: 09/29/22 06:45 Dose: Not Given Documented By: CHRISTOPHER Non-Admin Reason: Patient Refused Hydromorphone HCl (Hydromorphone Hcl 0.5 Mg/0.5 Ml Syringe) 0.5 mg IVPUSH Q3H PRN; Protocol PRN Reason: Pain, Severe (Pain Scale 7-10) Last Admin: 09/29/22 06:13 Dose: 0.5 mg Documented By: CHRISTOPHER Methadone HCl (Methadone Hcl 20 Mg/2 Ml Oral.Conc) 65 mg PO DAILY [facility] Last Admin: 09/28/22 08:41 Dose: 65 mg Documented By: ARGENTINA Metronidazole (Metronidazole 250 Mg Tablet) 250 mg PO TID [facility] Last Admin: 09/28/22 19:53 Dose: 250 mg Documented By: CHRISTOPHER Nicotine (Nicotine 14 Mg Patch.Td24) 14 mg TRANSDERMA DAILY [facility] Last Admin: 09/28/22 07:49 Dose: Not Given Documented By: ARGENTINA Non-Admin Reason: Patient Refused Nicotine Polacrilex (Nicotine Polacrilex 2 Mg Gum) 4 mg BUCCAL Q2H PRN PRN Reason: Nicotine Cravings Omeprazole (Omeprazole 40 Mg Capsule.Dr) 40 mg PO DAILY@0630 [facility] Last Admin: 09/29/22 06:10 Dose: 40 mg Documented By: CHRISTOPHER Ondansetron HCl (Ondansetron Odt 4 Mg Tab.Rapdis) 4 mg TRANSLINGU Q6H PRN PRN Reason: Nausea Last Admin: 09/28/22 10:15 Dose: 4 mg Documented By: ARGENTINA Oxycodone HCl (Oxycodone Hcl Immed Release 5 Mg Tablet) 10 mg PO Q6H PRN PRN Reason: Pain, Severe (Pain Scale 7-10) Prednisone (Prednisone 10 Mg Tablet) 10 mg PO DAILY [facility]; Taper Stop: 10/02/22 08:59 Last Admin: 09/28/22 07:49 Dose: 20 mg Documented By: ARGENTINA Quetiapine Fumarate (Quetiapine Fumarate 50 Mg Tablet) 50 mg PO Q4H PRN PRN Reason: AH/agitation Last Admin: 09/24/22 06:24 Dose: 50 mg Documented By: WESTLEY Quetiapine Fumarate (Quetiapine Fumarate 100 Mg Tablet) 100 mg PO BID@0900,1500 [facility] Last Admin: 09/25/22 08:46 Dose: Not Given Documented By: ONEIDA Non-Admin Reason: Patient Refused Quetiapine Fumarate (Quetiapine Fumarate 100 Mg Tablet) 100 mg PO BEDTIME [facility] Last Admin: 09/28/22 19:52 Dose: 100 mg Documented By: CHRISTOPHER Sodium Chloride (0.9 % Sodium Chloride Flush 3 Ml Syringe) 3 ml IVFLUSH [facility] Last Admin: 09/29/22 07:09 Dose: Not Given Documented By: WILLIAMS Non-Admin Reason: Duplicate Order Sodium Chloride (0.9 % Sodium Chloride Flush 3 Ml Syringe) [facility] Last Admin: 09/29/22 07:18 Dose: Not Given Documented By: WILLIAMS Non-Admin Reason: IV Running Thiamine HCl (Thiamine Hcl 100 Mg Tablet) 100 mg PO DAILY [facility] Last Admin: 09/28/22 07:48 Dose: 100 mg Documented By: ARGENTINA Trazodone HCl (Trazodone Hcl 50 Mg Tablet) 50 mg PO BEDTIME MRX1 PRN PRN Reason: Insomnia Last Admin: 09/24/22 23:51 Dose: 50 mg Documented By: MICHELLE Trazodone HCl (Trazodone Hcl 100 Mg Tablet) 200 mg PO BEDTIME [facility] Last Admin: 09/28/22 19:52 Dose: 200 mg Documented By: CHRISTOPHER <Jody Crocker PA-C - Last Filed: 09/29/22 09:05> Labs CBC & Chem 7: 09/25/22 06:18 09/27/22 08:24 <Jody Crocker PA-C - Last Filed: 09/29/22 09:05> Procedures Date of Service Date of Service: 09/29/22 <Jody Crocker PA-C - Last Filed: 09/29/22 09:05> 09/29/22 <Tay Winslow MD - Last Filed: 09/29/22 09:37> Progress Note: A&P Assessment and plan (1) Status post Maya procedure: Status: Acute <Jody Crocker PA-C - Last Filed: 09/29/22 09:05> Assessment and Plan: Sore on incisions Otherwise seems to have good pain control Good oral intake Stoma functioning well Abdomen soft Incision clean and dry Looks well clinically He does have active colitis based on CT scan as well as on intraop findings Will need good follow-up with GI Seen and examined independently <Tay Winslow MD - Last Filed: 09/29/22 09:37> (2) Colitis: Status: Acute <Jody Crocker PA-C - Last Filed: 09/29/22 09:05> Assessment and Plan: 47 year old made initially admitted because of depression, polysubstance abuse, who developed left sided abd pain, he subsequently underwent colonoscopy showing a stricture at level 55 cm. He was started on steroids, mesalamine as initial impression was IBD type disease however he did not improve with time. Repeat CT scan 2 days prior showed dilatation of the entire colon all the way to the level of the stricture, with note of persistent edema as well of the entire colon and distal small bowel suggestive of Crohn's disease. Given the failure to improve with steroids, it was recommended to proceed with resection of the diseased segment. He is now POD #5 s/p hand assisted laparoscopic sigmoid resection, and colostomy, extensive lysis of adhesions. He was found to have a stricture at the sigmoid, extensive adhesions, edematous colon from the rectosigmoid all the way to the cecum, with fat creeping consistent with Crohn's disease. Continues to do well post op. Pain control improved. VSS. Abd exam is benign- soft, incision clean, stoma with output. Encouraged PO analgesics. OOB/ambulation. Colostomy education- patient encouraged to participate in colostomy care. Psych eval- will be ready for discharge within the next couple of days. Pathology pending. <CAROL Parekh Last Filed: 09/29/22 09:05> Time Spent With Patient Time: Total time managing care of this patient today ____ minutes. <Jody Crocker PA-C - Last Filed: 09/29/22 09:05> Quality Stroke Does the patient have a stroke diagnosis?: No <CAROL Parekh Last Filed: 09/29/22 09:05> VTE Prior VTE?: No <CAROL Parekh Last Filed: 09/29/22 09:05> VTE Risk Level:: Medical - moderate - high <CAROL Parekh Last Filed: 09/29/22 09:05> VTE Device Contraindication: N/A - Device Ordered <CAROL Paerkh Last Filed: 09/29/22 09:05> VTE Drug Contraindication: N/A - Med Ordered <CAROL Parekh Last Filed: 09/29/22 09:05>
[2022-09-29] MEDS: Thiamine HCL 100 MG TABLET PO (09:03)
[2022-09-29] MEDS: cloNIDine HCL 0.1 MG TABLET 0.05 MG PO ×2 (09:03→16:42)
[2022-09-29] MEDS: buPROPion HCl XL 300 MG TAB.ER.24H PO (09:04)
[2022-09-29] MEDS: metroNIDAZOLE 250 MG TABLET PO ×3 (09:04→20:52)
[2022-09-29] MEDS: Gabapentin 100 MG CAPSULE PO ×3 (09:04→20:51)
[2022-09-29] MEDS: predniSONE 10 MG TABLET PO (09:11)
[2022-09-29] MEDS: oxyCODONE HCl Immed Release 5 MG TABLET 10 MG PO ×3 (09:11→21:41)
--- NOTE | 2022-09-29 10:44 | P.PNGI_ITS ---
Subjective Subjective Date of Service: 09/29/22 Interval History: Pt with new dx of possible crohns disease. Adm to hospital after S.I however course complicated by sigmoid stricture which was not been steroid responsive, leading to progressive LBO s/p hand assisted lap sigmoidectomy with colostomy formation and JAYLYN ( - Dr Winslow). Seen at bedside today. Reports pain under the staple line duglas postprandially. SIgmoid path pending. Critical Care Time (minutes): 0 Physical Exam Vital Signs: Vital Signs: Last Vital Signs Temp 97.8 F 09/29/22 07:37 Pulse 81 09/29/22 07:37 Resp 20 09/29/22 07:37 BP 119/64 09/29/22 07:37 Pulse Ox 96 09/29/22 07:37 O2 Del Method Room Air 09/29/22 07:37 O2 Flow Rate 1 09/25/22 11:26 BMI result Body Mass Index 20.5 Objective Data Labs 09/25/22 06:18 09/27/22 08:24 Procedures Date of Service Date of Service: 09/29/22 Progress Note: A&P Assessment and plan (1) Colitis: Status: Acute (2) Sigmoid stricture: Status: Acute (3) Abdominal pain: Status: Deleted Plan #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 Pt continues to progress clinically. Again, explained to the pt that while cl inically have a suspicion for crohns disease, unable to initiate biologic at that this time without a definite histology. We also reviewed his unstable housing situation and will look into resources to overcome that barrier to treatment as outpatient. He may need to be in rehab for a short while due to significant undernutrition and deconditioning, however will await PT input. Recommendations: - Consider PT eval - Cont pred taper as scheduled. - Cont Flagyl 250mg TID - TPMT sent out and pending - Will likely need anti-TNF tx, path awaited for definite diagnosis (HBV, HIV and TSPOT neg) Time Spent With Patient Time: Total time managing care of this patient today ____ minutes. Quality Stroke Does the patient have a stroke diagnosis?: No VTE Prior VTE?: No VTE Risk Level:: Medical - moderate - high VTE Device Contraindication: N/A - Device Ordered VTE Drug Contraindication: N/A - Med Ordered
--- NOTE | 2022-09-29 12:33 | P.PNIM_ITS ---
Subjective Subjective Date of Service: 09/28/22 Interval History: Seen and evaluated this morning complaining of pain in abdomen but overall better tolerating PO Colostomy with small amount of stool in bag No fever, chills, hypoxia overnight Review of Systems less anxious and depressed Denies fever or chills Physical Exam Vital Signs: Vital Signs: Last Vital Signs Temp 97.8 F 09/29/22 07:37 Pulse 81 09/29/22 07:37 Resp 20 09/29/22 07:37 BP 119/64 09/29/22 07:37 Pulse Ox 96 09/29/22 07:37 O2 Del Method Room Air 09/29/22 07:37 O2 Flow Rate 1 09/25/22 11:26 BMI result Body Mass Index 20.5 Const: Other: Constitutional : Awake, interactive, not in distress Neck : Normal inspection, Supple Cardiovascular : RRR, no JVP, no lower extremity edema Respiratory : good bilateral air entry, no crackles, wheezes or rhonchi Gastrointestinal: soft, lax, decreased bowel sounds, generalized tenderness, surgical wound covered with dressing, Colostomy in place with small amount of stool in bag Skin : Warm, Dry Neurological : Alert & oriented x3, No focal deficit Objective Data Active Medications Bupropion HCl (Bupropion Hcl Xl 300 Mg Tab.Er.24h) 300 mg PO DAILY [facility] Last Admin: 09/29/22 09:04 Dose: 300 mg Documented By: WILLIAMS Clonidine HCl (Clonidine Hcl 0.1 Mg Tablet) 0.05 mg PO BID@0900,1500 [facility]; Protocol Last Admin: 09/29/22 09:03 Dose: 0.05 mg Documented By: WILLIAMS Clonidine HCl (Clonidine Hcl 0.2 Mg Tablet) 0.2 mg PO BEDTIME [facility]; Protocol Last Admin: 09/28/22 19:53 Dose: 0.2 mg Documented By: CHRISTOPHER Comments: 117/77 Famotidine (Famotidine 20 Mg Tablet) 20 mg PO BEDTIME [facility] Last Admin: 09/28/22 19:53 Dose: 20 mg Documented By: CHRISTOPHER Gabapentin (Gabapentin 100 Mg Capsule) 100 mg PO TID [facility] Last Admin: 09/29/22 09:04 Dose: 100 mg Documented By: WILLIAMS Heparin Sodium (Porcine) (Heparin Sodium,Porcine 5,000 Unit/Ml Vial) 5,000 unit SUBCUT Q8H [facility] Last Admin: 09/29/22 06:45 Dose: Not Given Documented By: CHRISTOPHER Non-Admin Reason: Patient Refused Hydromorphone HCl (Hydromorphone Hcl 0.5 Mg/0.5 Ml Syringe) 0.5 mg IVPUSH Q3H PRN; Protocol PRN Reason: Pain, Severe (Pain Scale 7-10) Last Admin: 09/29/22 06:13 Dose: 0.5 mg Documented By: CHRISTOPHER Methadone HCl (Methadone Hcl 20 Mg/2 Ml Oral.Conc) 65 mg PO DAILY [facility] Last Admin: 09/29/22 09:01 Dose: 65 mg Documented By: WILLIAMS Metronidazole (Metronidazole 250 Mg Tablet) 250 mg PO TID [facility] Last Admin: 09/29/22 09:04 Dose: 250 mg Documented By: WILLIAMS Nicotine (Nicotine 14 Mg Patch.Td24) 14 mg TRANSDERMA DAILY [facility] Last Admin: 09/29/22 09:05 Dose: Not Given Documented By: WILLIAMS Non-Admin Reason: Patient Refused Nicotine Polacrilex (Nicotine Polacrilex 2 Mg Gum) 4 mg BUCCAL Q2H PRN PRN Reason: Nicotine Cravings Omeprazole (Omeprazole 40 Mg Capsule.Dr) 40 mg PO DAILY@0630 [facility] Last Admin: 09/29/22 06:10 Dose: 40 mg Documented By: CHRISTOPHER Ondansetron HCl (Ondansetron Odt 4 Mg Tab.Rapdis) 4 mg TRANSLINGU Q6H PRN PRN Reason: Nausea Last Admin: 09/28/22 10:15 Dose: 4 mg Documented By: ARGENTINA Oxycodone HCl (Oxycodone Hcl Immed Release 5 Mg Tablet) 10 mg PO Q6H PRN PRN Reason: Pain, Severe (Pain Scale 7-10) Last Admin: 09/29/22 09:11 Dose: 10 mg Documented By: WILLIAMS Prednisone (Prednisone 10 Mg Tablet) 10 mg PO DAILY [facility]; Taper Stop: 10/02/22 08:59 Last Admin: 09/29/22 09:11 Dose: 10 mg Documented By: WILLIAMS Quetiapine Fumarate (Quetiapine Fumarate 50 Mg Tablet) 50 mg PO Q4H PRN PRN Reason: AH/agitation Last Admin: 09/24/22 06:24 Dose: 50 mg Documented By: WESTLEY Quetiapine Fumarate (Quetiapine Fumarate 100 Mg Tablet) 100 mg PO BID@0900,1500 [facility] Last Admin: 09/25/22 08:46 Dose: Not Given Documented By: ONEIDA Non-Admin Reason: Patient Refused Quetiapine Fumarate (Quetiapine Fumarate 100 Mg Tablet) 100 mg PO BEDTIME [facility] Last Admin: 09/28/22 19:52 Dose: 100 mg Documented By: CHRISTOPHER Sodium Chloride (0.9 % Sodium Chloride Flush 3 Ml Syringe) 3 ml IVFLUSH QSNHFT [facility] Last Admin: 09/29/22 07:09 Dose: Not Given Documented By: WILLIAMS Non-Admin Reason: Duplicate Order Sodium Chloride (0.9 % Sodium Chloride Flush 3 Ml Syringe) 3 ml IVFLUSH [facility] Last Admin: 09/29/22 07:18 Dose: Not Given Documented By: WILLIAMS Non-Admin Reason: IV Running Thiamine HCl (Thiamine Hcl 100 Mg Tablet) 100 mg PO DAILY [facility] Last Admin: 09/29/22 09:03 Dose: 100 mg Documented By: WILLIAMS Trazodone HCl (Trazodone Hcl 50 Mg Tablet) 50 mg PO BEDTIME MRX1 PRN PRN Reason: Insomnia Last Admin: 09/24/22 23:51 Dose: 50 mg Documented By: MICHELLE Trazodone HCl (Trazodone Hcl 100 Mg Tablet) 200 mg PO BEDTIME [facility] Last Admin: 09/28/22 19:52 Dose: 200 mg Documented By: CHRISTOPHER Labs 09/25/22 06:18 09/27/22 08:24 Assessment and Plan (1) Status post Maya procedure: Status: Acute (2) Colitis: Status: Acute (3) Intractable abdominal pain: Status: Acute Plan 47-year-old patient with PMH of hypertension, IV drug abuse, cocaine abuser, hepatitis-C, depression, PTSD, depression with SI and suicidal attempt, anxiety and Crohns disease on steroids admitted to surgery team from adult psychiatry for management of intractable abdominal pain, poor PO intake as CT scan showing worsening stricture of colon. # Colon stricture status post Maya procedure PRN IV dilaudid surgical team following on TPN advance diet as tolerated # Crohns disease w exacerbation Continue tappering dose of steroids 20 mg between 09/25-9 Continue [facility] following #Polysubstance abuse with opiate dependence continue methadone # MDD resume psych meds as prescribed No SI thoughts to get Care team eval prior to DC # HTN Clonidine # SI sitter in room Care team to evaluate Continue rest of home meds Thank you for the consult will continue to monitor the patient with you as needed Time Spent With Patient Time: Total time managing care of this patient today ____ minutes. Quality Stroke Does the patient have a stroke diagnosis?: No VTE Prior VTE?: No VTE Risk Level:: Medical - moderate - high VTE Device Contraindication: N/A - Device Ordered VTE Drug Contraindication: N/A - Med Ordered
--- NOTE | 2022-09-29 14:50 | PM.EVENT ---
Event Note Date of Service: 09/29/22 Event Note: Central line removed at bedside with patient in supine position. Pressure held and sterile dressing applied after hemostasis ensured. Patient tolerated the procedure well. No immediate complications. Time Spent With Patient Time: Total time managing care of this patient today ____ minutes.
--- NOTE | 2022-09-29 15:03 | PC.NURSE ---
Jody LEBLANC removed pts triple lumen at bedside. DEANA made aware that pt has no access. DEANA alcantara.
[2022-09-29 16:00] VITALS: BP 127/70; PULSE 84; RESP 20; TEMP 36.6; O2SAT 84
--- NOTE | 2022-09-29 16:44 | PC.NURSE ---
Patient refused sequential,risk of blood clots were explained to patient ,encouraged activity
[2022-09-29 19:10] VITALS: BP 118/74; PULSE 90; RESP 16; TEMP 36.2; O2SAT 93
[2022-09-29] MEDS: QUEtiapine Fumarate 100 MG TABLET PO (20:51)
[2022-09-29] MEDS: traZODone HCL 100 MG TABLET 200 MG PO (20:52)
[2022-09-29] MEDS: cloNIDine HCL 0.2 MG TABLET PO (20:52)
[2022-09-29] MEDS: Famotidine 20 MG TABLET PO (20:55)
[2022-09-30 03:11] VITALS: BP 128/77; PULSE 88; RESP 16; TEMP 36; O2SAT 97
[2022-09-30] MEDS: oxyCODONE HCl Immed Release 5 MG TABLET 10 MG PO ×5 (03:16→21:52)
--- NOTE | 2022-09-30 06:24 | PC.NURSE ---
Patient is refusing Heparin SC and compression stockings. Dr Diggs made aware.
[2022-09-30 07:31] VITALS: BP 102/64; PULSE 82; RESP 14; TEMP 36.2; O2SAT 94
[2022-09-30] MEDS: cloNIDine HCL 0.1 MG TABLET 0.05 MG PO ×2 (08:06→15:24)
[2022-09-30] MEDS: buPROPion HCl XL 300 MG TAB.ER.24H PO (08:06)
[2022-09-30] MEDS: Gabapentin 100 MG CAPSULE PO ×3 (08:06→21:07)
[2022-09-30] MEDS: predniSONE 10 MG TABLET PO (08:06)
[2022-09-30] MEDS: Thiamine HCL 100 MG TABLET PO (08:06)
[2022-09-30] MEDS: metroNIDAZOLE 250 MG TABLET PO ×3 (08:07→21:07)
[2022-09-30] MEDS: methADONE HCl 20 MG/2 ML ORAL.CONC 65 MG PO (08:08)
--- NOTE | 2022-09-30 11:12 | P.PNIM_ITS ---
Subjective Subjective Date of Service: 09/30/22 Interval History: having stool in bag, passing gas Physical Exam Vital Signs: Vital Signs: Last Vital Signs Temp 97.2 F 09/30/22 07:31 Pulse 82 09/30/22 07:31 Resp 14 09/30/22 07:31 BP 102/64 09/30/22 07:31 Pulse Ox 94 09/30/22 07:31 O2 Del Method Room Air 09/30/22 07:31 O2 Flow Rate 1 09/25/22 11:26 BMI result Body Mass Index 20.5 Const: Other: Constitutional : Awake, interactive, not in distress Neck : Normal inspection, Supple Cardiovascular : RRR, no JVP, no lower extremity edema Respiratory : good bilateral air entry, no crackles, wheezes or rhonchi Gastrointestinal: soft, lax, decreased bowel sounds, generalized tenderness, surgical wound covered with dressing, Colostomy in place with small amount of stool in bag Skin : Warm, Dry Neurological : Alert & oriented x3, No focal deficit Objective Data Active Medications Bupropion HCl (Bupropion Hcl Xl 300 Mg Tab.Er.24h) 300 mg PO DAILY [facility] [place] Last Admin: 09/30/22 08:06 Dose: 300 mg Documented By: GRUPO Clonidine HCl (Clonidine Hcl 0.1 Mg Tablet) 0.05 mg PO BID@0900,1500 [facility] [place]; Protocol Last Admin: 09/30/22 08:06 Dose: 0.05 mg Documented By: GRUPO Clonidine HCl (Clonidine Hcl 0.2 Mg Tablet) 0.2 mg PO BEDTIME [facility] [place]; Protocol Last Admin: 09/29/22 20:52 Dose: 0.2 mg Documented By: HANSA Famotidine (Famotidine 20 Mg Tablet) 20 mg PO BEDTIME [facility] [place] Last Admin: 09/29/22 20:55 Dose: 20 mg Documented By: HANSA Gabapentin (Gabapentin 100 Mg Capsule) 100 mg PO TID [facility] [place] Last Admin: 09/30/22 08:06 Dose: 100 mg Documented By: GRUPO Heparin Sodium (Porcine) (Heparin Sodium,Porcine 5,000 Unit/Ml Vial) 5,000 unit SUBCUT Q8H [facility] [place] Last Admin: 09/30/22 06:20 Dose: Not Given Documented By: PRINCE Non-Admin Reason: Patient Refused Hydromorphone HCl (Hydromorphone Hcl 0.5 Mg/0.5 Ml Syringe) 0.5 mg IVPUSH Q3H PRN; Protocol PRN Reason: Pain, Severe (Pain Scale 7-10) Last Admin: 09/29/22 06:13 Dose: 0.5 mg Documented By: CHRISTOPHER Methadone HCl (Methadone Hcl 20 Mg/2 Ml Oral.Conc) 65 mg PO DAILY [facility] [place] Last Admin: 09/30/22 08:08 Dose: 65 mg Documented By: GRUPO Metronidazole (Metronidazole 250 Mg Tablet) 250 mg PO TID [facility] [place] Last Admin: 09/30/22 08:07 Dose: 250 mg Documented By: GRUPO Nicotine (Nicotine 14 Mg Patch.Td24) 14 mg TRANSDERMA DAILY [facility] [place] Last Admin: 09/30/22 08:12 Dose: Not Given Documented By: GRUPO Non-Admin Reason: Patient Refused Nicotine Polacrilex (Nicotine Polacrilex 2 Mg Gum) 4 mg BUCCAL Q2H PRN PRN Reason: Nicotine Cravings Omeprazole (Omeprazole 40 Mg Capsule.Dr) 40 mg PO DAILY@0630 [facility] [place] Last Admin: 09/30/22 06:19 Dose: Not Given Documented By: PRINCE Non-Admin Reason: Patient Refused Ondansetron HCl (Ondansetron Odt 4 Mg Tab.Rapdis) 4 mg TRANSLINGU Q6H PRN PRN Reason: Nausea Last Admin: 09/28/22 10:15 Dose: 4 mg Documented By: ARGENTINA Oxycodone HCl (Oxycodone Hcl Immed Release 5 Mg Tablet) 10 mg PO Q4H PRN PRN Reason: Pain, Severe (Pain Scale 7-10) Last Admin: 09/30/22 10:15 Dose: 10 mg Documented By: GRUPO Prednisone (Prednisone 10 Mg Tablet) 10 mg PO DAILY [facility] [place]; Taper Stop: 10/02/22 08:59 Last Admin: 09/30/22 08:06 Dose: 10 mg Documented By: GRUPO Quetiapine Fumarate (Quetiapine Fumarate 50 Mg Tablet) 50 mg PO Q4H PRN PRN Reason: AH/agitation Last Admin: 09/24/22 06:24 Dose: 50 mg Documented By: WESTLEY Quetiapine Fumarate (Quetiapine Fumarate 100 Mg Tablet) 100 mg PO BID@0900,1500 [facility] [place] Last Admin: 09/25/22 08:46 Dose: Not Given Documented By: ONEIDA Non-Admin Reason: Patient Refused Quetiapine Fumarate (Quetiapine Fumarate 100 Mg Tablet) 100 mg PO BEDTIME [facility] [place] Last Admin: 09/29/22 20:51 Dose: 100 mg Documented By: HANSA Sodium Chloride (0.9 % Sodium Chloride Flush 3 Ml Syringe) 3 ml IVFLUSH QSHIFT [facility] [place] Last Admin: 09/30/22 07:24 Dose: Not Given Documented By: GRUPO Non-Admin Reason: No Access Sodium Chloride (0.9 % Sodium Chloride Flush 3 Ml Syringe) 3 ml IVFLUSH QSHIFT [facility] [place] Last Admin: 09/30/22 07:24 Dose: Not Given Documented By: GRUPO Non-Admin Reason: No Access Thiamine HCl (Thiamine Hcl 100 Mg Tablet) 100 mg PO DAILY [facility] [place] Last Admin: 09/30/22 08:06 Dose: 100 mg Documented By: GRUPO Trazodone HCl (Trazodone Hcl 50 Mg Tablet) 50 mg PO BEDTIME MRX1 PRN PRN Reason: Insomnia Last Admin: 09/24/22 23:51 Dose: 50 mg Documented By: MICHELLE Trazodone HCl (Trazodone Hcl 100 Mg Tablet) 200 mg PO BEDTIME [facility] [place] Last Admin: 09/29/22 20:52 Dose: 200 mg Documented By: HANSA Labs 09/25/22 06:18 09/27/22 08:24 Assessment and Plan (1) Status post Maya procedure: Status: Acute (2) Colitis: Status: Acute (3) Intractable abdominal pain: Status: Acute Plan 47M PMH of hypertension, IV drug abuse, cocaine acuse, hepatitis-C, depression, PTSD, depression with SI and suicidal attempt, anxiety and Crohns disease admitted to surgery team from adult psychiatry for management of intractable abdominal pain, poor PO intake, CT scan showing worsening stricture of colon. crohns with acute xacerbation complicated by Colon stricture status post Maya procedure tolerating solids mesalamine, steroid taper, gi following Polysubstance abuse with opiate dependence continue methadone MDD resume psych meds as prescribed No SI thoughts to get Care team eval prior to DC basal inferior akinesis on recent echo outpatient stress test with cardio Anorexia, moderate protein calorie malnutrition related to IBD and depression 50 pound weight loss since passing of in May ensure Time Spent With Patient Time: Total time managing care of this patient today ____ minutes. Quality Stroke Does the patient have a stroke diagnosis?: No VTE Prior VTE?: No VTE Risk Level:: Medical - moderate - high VTE Device Contraindication: N/A - Device Ordered VTE Drug Contraindication: N/A - Med Ordered
--- NOTE | 2022-09-30 11:56 | P.PNGS_ITS ---
Subjective Subjective Date of Service: 09/30/22 Interval history: Says he has good oral intake Ambulating Has pain but is just on oral pain meds now Stoma functioning Physical Exam Vital Signs: Vital Signs: Last Vital Signs Temp 97.2 F 09/30/22 07:31 Pulse 82 09/30/22 07:31 Resp 14 09/30/22 07:31 BP 102/64 09/30/22 07:31 Pulse Ox 94 09/30/22 07:31 O2 Del Method Room Air 09/30/22 07:31 O2 Flow Rate 1 09/25/22 11:26 BMI result Body Mass Index 20.5 Const: General: comfortable and no acute distress Resp: Effort & Inspection: normal respiratory effort Cardio: Rate: regular rate GI: Other: Stoma functioning Palpation (GI): Soft to palpation, not firm and no guarding Objective Data Active Medications Bupropion HCl (Bupropion Hcl Xl 300 Mg Tab.Er.24h) 300 mg PO DAILY [facility] Last Admin: 09/30/22 08:06 Dose: 300 mg Documented By: GRUPO Clonidine HCl (Clonidine Hcl 0.1 Mg Tablet) 0.05 mg PO BID@0900,1500 [facility]; Protocol Last Admin: 09/30/22 08:06 Dose: 0.05 mg Documented By: GRUPO Clonidine HCl (Clonidine Hcl 0.2 Mg Tablet) 0.2 mg PO BEDTIME [facility]; Protocol Last Admin: 09/29/22 20:52 Dose: 0.2 mg Documented By: HANSA Famotidine (Famotidine 20 Mg Tablet) 20 mg PO BEDTIME [facility] Last Admin: 09/29/22 20:55 Dose: 20 mg Documented By: HANSA Gabapentin (Gabapentin 100 Mg Capsule) 100 mg PO TID [facility] Last Admin: 09/30/22 08:06 Dose: 100 mg Documented By: GRUPO Heparin Sodium (Porcine) (Heparin Sodium,Porcine 5,000 Unit/Ml Vial) 5,000 unit SUBCUT Q8H [facility] Last Admin: 09/30/22 06:20 Dose: Not Given Documented By: PRINCE Non-Admin Reason: Patient Refused Hydromorphone HCl (Hydromorphone Hcl 0.5 Mg/0.5 Ml Syringe) 0.5 mg IVPUSH Q3H PRN; Protocol PRN Reason: Pain, Severe (Pain Scale 7-10) Last Admin: 09/29/22 06:13 Dose: 0.5 mg Documented By: CASTILJack Methadone HCl (Methadone Hcl 20 Mg/2 Ml Oral.Conc) 65 mg PO DAILY [facility] Last Admin: 09/30/22 08:08 Dose: 65 mg Documented By: GRUPO Metronidazole (Metronidazole 250 Mg Tablet) 250 mg PO TID [facility] Last Admin: 09/30/22 08:07 Dose: 250 mg Documented By: GRUPO Nicotine (Nicotine 14 Mg Patch.Td24) 14 mg TRANSDERMA DAILY [facility] Last Admin: 09/30/22 08:12 Dose: Not Given Documented By: GRUPO Non-Admin Reason: Patient Refused Nicotine Polacrilex (Nicotine Polacrilex 2 Mg Gum) 4 mg BUCCAL Q2H PRN PRN Reason: Nicotine Cravings Omeprazole (Omeprazole 40 Mg Capsule.Dr) 40 mg PO DAILY@0630 [facility] Last Admin: 09/30/22 06:19 Dose: Not Given Documented By: PRINCE Non-Admin Reason: Patient Refused Ondansetron HCl (Ondansetron Odt 4 Mg Tab.Rapdis) 4 mg TRANSLINGU Q6H PRN PRN Reason: Nausea Last Admin: 09/28/22 10:15 Dose: 4 mg Documented By: ARGENTINA Oxycodone HCl (Oxycodone Hcl Immed Release 5 Mg Tablet) 10 mg PO Q4H PRN PRN Reason: Pain, Severe (Pain Scale 7-10) Last Admin: 09/30/22 10:15 Dose: 10 mg Documented By: GRUPO Prednisone (Prednisone 10 Mg Tablet) 10 mg PO DAILY [facility]; Taper Stop: 10/02/22 08:59 Last Admin: 09/30/22 08:06 Dose: 10 mg Documented By: GRUPO Quetiapine Fumarate (Quetiapine Fumarate 50 Mg Tablet) 50 mg PO Q4H PRN PRN Reason: AH/agitation Last Admin: 09/24/22 06:24 Dose: 50 mg Documented By: WESTLEY Quetiapine Fumarate (Quetiapine Fumarate 100 Mg Tablet) 100 mg PO BID@0900,1500 [facility] Last Admin: 09/25/22 08:46 Dose: Not Given Documented By: ONEIDA Non-Admin Reason: Patient Refused Quetiapine Fumarate (Quetiapine Fumarate 100 Mg Tablet) 100 mg PO BEDTIME [facility] Last Admin: 09/29/22 20:51 Dose: 100 mg Documented By: HANSA Sodium Chloride (0.9 % Sodium Chloride Flush 3 Ml Syringe) 3 ml IVFLUSH QSPRFT [facility] Last Admin: 09/30/22 07:24 Dose: Not Given Documented By: GRUPO Non-Admin Reason: No Access Sodium Chloride (0.9 % Sodium Chloride Flush 3 Ml Syringe) [facility] Last Admin: 09/30/22 07:24 Dose: Not Given Documented By: GRUPO Non-Admin Reason: No Access Thiamine HCl (Thiamine Hcl 100 Mg Tablet) 100 mg PO DAILY [facility] Last Admin: 09/30/22 08:06 Dose: 100 mg Documented By: GRUPO Trazodone HCl (Trazodone Hcl 50 Mg Tablet) 50 mg PO BEDTIME MRX1 PRN PRN Reason: Insomnia Last Admin: 09/24/22 23:51 Dose: 50 mg Documented By: MICHELLE Trazodone HCl (Trazodone Hcl 100 Mg Tablet) 200 mg PO BEDTIME [facility] Last Admin: 09/29/22 20:52 Dose: 200 mg Documented By: HANSA Labs 09/25/22 06:18 09/27/22 08:24 Procedures Date of Service Date of Service: 09/30/22 Progress Note: A&P Assessment and plan (1) Status post Maya procedure: Status: Acute Assessment and Plan: Doing very well Now on oral pain meds Abdomen soft Stoma functioning well Await path report Discussed with GI Case management for placement - he is homeless Time Spent With Patient Time: Total time managing care of this patient today ____ minutes. Quality Stroke Does the patient have a stroke diagnosis?: No VTE Prior VTE?: No VTE Risk Level:: Medical - moderate - high VTE Device Contraindication: N/A - Device Ordered VTE Drug Contraindication: N/A - Med Ordered
--- NOTE | 2022-09-30 13:06 | MHC.CLN ---
F/U DIET=REGULAR WITH ENSURE MAX TID (450 KCALS, 90 G PROTEIN). INTAKE APPEARS IMPROVED WITH MOST RECENT 3 MEALS 100%. CONTINUE CURRENT DIET AND SUPPLEMENT. MONITOR FOR PO TOLERANCE AND INTAKE.
--- NOTE | 2022-09-30 15:02 | MHC.CARE ---
Pt seen by CARE team on 09/29/22, disposition was referral to case management. Psych consult pending and Dr. Pablo Abdul was notified of disposition.
[2022-09-30 15:12] VITALS: BP 138/81; PULSE 86; RESP 16; TEMP 36.1; O2SAT 95
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
[2022-09-30 19:11] VITALS: BP 104/71; PULSE 77; RESP 14; TEMP 36.1; O2SAT 95
[2022-09-30] MEDS: traZODone HCL 100 MG TABLET 200 MG PO (21:07)
[2022-09-30] MEDS: cloNIDine HCL 0.1 MG TABLET 0.3 MG PO (21:08)
[2022-09-30] MEDS: QUEtiapine Fumarate 200 MG TABLET PO (21:09)
[2022-09-30] MEDS: Famotidine 20 MG TABLET PO (21:11)
[2022-10-01 03:35] VITALS: BP 121/65; PULSE 74; RESP 18; TEMP 36.7; O2SAT 96
[2022-10-01] MEDS: oxyCODONE HCl Immed Release 5 MG TABLET 10 MG PO ×4 (03:40→19:34)
[2022-10-01 08:00] VITALS: BP 103/67; PULSE 78; RESP 18; O2SAT 95
[2022-10-01] MEDS: Thiamine HCL 100 MG TABLET PO (08:07)
[2022-10-01] MEDS: metroNIDAZOLE 250 MG TABLET PO ×3 (08:07→20:55)
[2022-10-01] MEDS: buPROPion HCl XL 300 MG TAB.ER.24H PO (08:07)
[2022-10-01] MEDS: Sertraline HCL 50 MG TABLET PO (08:08)
[2022-10-01] MEDS: Gabapentin 100 MG CAPSULE PO ×3 (08:08→20:55)
[2022-10-01] MEDS: predniSONE 10 MG TABLET PO (08:08)
[2022-10-01] MEDS: cloNIDine HCL 0.1 MG TABLET 0.05 MG PO ×2 (08:08→14:48)
[2022-10-01] MEDS: methADONE HCl 20 MG/2 ML ORAL.CONC 65 MG PO (08:09)
--- NOTE | 2022-10-01 08:16 | P.PNGS_ITS ---
Subjective Subjective Date of Service: 10/01/22 Interval history: Denies new complaints at this time Says he has been ambulating Tolerating diet Stoma functioning No new events reported Physical Exam Vital Signs: Vital Signs: Last Vital Signs Temp 98.0 F 10/01/22 03:35 Pulse 74 10/01/22 03:35 Resp 18 10/01/22 03:35 BP 121/65 10/01/22 03:35 Pulse Ox 96 10/01/22 03:35 O2 Del Method Room Air 10/01/22 03:35 O2 Flow Rate 1 09/25/22 11:26 BMI result Body Mass Index 20.5 Const: General: comfortable and no acute distress Resp: Effort & Inspection: normal respiratory effort Cardio: Rate: regular rate GI: Other: Stoma functioning well, midline incision dry, clean Palpation (GI): Soft to palpation, not firm and no guarding Objective Data Active Medications Bupropion HCl (Bupropion Hcl Xl 300 Mg Tab.Er.24h) 300 mg PO DAILY [facility] Last Admin: 10/01/22 08:07 Dose: 300 mg Documented By: GRPUO Clonidine HCl (Clonidine Hcl 0.1 Mg Tablet) 0.05 mg PO BID@0900,1500 [facility]; Protocol Last Admin: 10/01/22 08:08 Dose: 0.05 mg Documented By: GRUOP Clonidine HCl (Clonidine Hcl 0.1 Mg Tablet) 0.3 mg PO BEDTIME [facility]; Protocol Last Admin: 09/30/22 21:08 Dose: 0.3 mg Documented By: ARISTEO Famotidine (Famotidine 20 Mg Tablet) 20 mg PO BEDTIME [facility] Last Admin: 09/30/22 21:11 Dose: 20 mg Documented By: ARISTEO Gabapentin (Gabapentin 100 Mg Capsule) 100 mg PO TID [facility] Last Admin: 10/01/22 08:08 Dose: 100 mg Documented By: GRUPO Heparin Sodium (Porcine) (Heparin Sodium,Porcine 5,000 Unit/Ml Vial) 5,000 unit SUBCUT Q8H [facility] Last Admin: 10/01/22 05:04 Dose: Not Given Documented By: ARISTEO Non-Admin Reason: Patient Refused Hydromorphone HCl (Hydromorphone Hcl 0.5 Mg/0.5 Ml Syringe) 0.5 mg IVPUSH Q3H PRN; Protocol PRN Reason: Pain, Severe (Pain Scale 7-10) Last Admin: 09/29/22 06:13 Dose: 0.5 mg Documented By: CASTILJack Methadone HCl (Methadone Hcl 20 Mg/2 Ml Oral.Conc) 65 mg PO DAILY [facility] Last Admin: 10/01/22 08:09 Dose: 65 mg Documented By: GRUPO Metronidazole (Metronidazole 250 Mg Tablet) 250 mg PO TID [facility] Last Admin: 10/01/22 08:07 Dose: 250 mg Documented By: GRUPO Nicotine (Nicotine 14 Mg Patch.Td24) 14 mg TRANSDERMA DAILY [facility] Last Admin: 09/30/22 08:12 Dose: Not Given Documented By: GRUPO Non-Admin Reason: Patient Refused Nicotine Polacrilex (Nicotine Polacrilex 2 Mg Gum) 4 mg BUCCAL Q2H PRN PRN Reason: Nicotine Cravings Omeprazole (Omeprazole 40 Mg Capsule.Dr) 40 mg PO DAILY@0630 [facility] Last Admin: 10/01/22 05:04 Dose: Not Given Documented By: ARISTEO Non-Admin Reason: Patient Refused Ondansetron HCl (Ondansetron Odt 4 Mg Tab.Rapdis) 4 mg TRANSLINGU Q6H PRN PRN Reason: Nausea Last Admin: 09/28/22 10:15 Dose: 4 mg Documented By: ARGENTINA Oxycodone HCl (Oxycodone Hcl Immed Release 5 Mg Tablet) 10 mg PO Q4H PRN PRN Reason: Pain, Severe (Pain Scale 7-10) Last Admin: 10/01/22 03:40 Dose: 10 mg Documented By: ARISTEO Prednisone (Prednisone 10 Mg Tablet) 10 mg PO DAILY [facility]; Taper Stop: 10/02/22 08:59 Last Admin: 10/01/22 08:08 Dose: 10 mg Documented By: GRUPO Quetiapine Fumarate (Quetiapine Fumarate 50 Mg Tablet) 50 mg PO Q4H PRN PRN Reason: AH/agitation Last Admin: 09/24/22 06:24 Dose: 50 mg Documented By: WESTLEY Quetiapine Fumarate (Quetiapine Fumarate 100 Mg Tablet) 100 mg PO BID@0900,1500 [facility] Last Admin: 09/25/22 08:46 Dose: Not Given Documented By: ONEIDA Non-Admin Reason: Patient Refused Quetiapine Fumarate (Quetiapine Fumarate 200 Mg Tablet) 200 mg PO BEDTIME [facility] Last Admin: 09/30/22 21:09 Dose: 200 mg Documented By: ARISTEO Sertraline HCl (Sertraline Hcl 50 Mg Tablet) 50 mg PO DAILY [facility] Last Admin: 10/01/22 08:08 Dose: 50 mg Documented By: GRUPO Sodium Chloride (0.9 % Sodium Chloride Flush 3 Ml Syringe) [facility] Last Admin: 10/01/22 08:12 Dose: Not Given Documented By: GRUPO Non-Admin Reason: No Access Sodium Chloride (0.9 % Sodium Chloride Flush 3 Ml Syringe) [facility] Last Admin: 10/01/22 08:12 Dose: Not Given Documented By: GRUPO Non-Admin Reason: No Access Thiamine HCl (Thiamine Hcl 100 Mg Tablet) 100 mg PO DAILY [facility] Last Admin: 10/01/22 08:07 Dose: 100 mg Documented By: GRUPO Trazodone HCl (Trazodone Hcl 50 Mg Tablet) 50 mg PO BEDTIME MRX1 PRN PRN Reason: Insomnia Last Admin: 09/24/22 23:51 Dose: 50 mg Documented By: MICHELLE Trazodone HCl (Trazodone Hcl 100 Mg Tablet) 200 mg PO BEDTIME [facility] Last Admin: 09/30/22 21:07 Dose: 200 mg Documented By: ARISTEO Labs 09/25/22 06:18 09/27/22 08:24 Procedures Date of Service Date of Service: 10/01/22 Progress Note: A&P Assessment and plan (1) Status post Maya procedure: Status: Acute Assessment and Plan: Continues to do well Good GI functions Stoma working well Not on any IV pain meds anymore Now for discharge planning As per psychiatrist, patient not need to return to the psych unit - psych meds adjusted Explained to patient Looks well Time Spent With Patient Time: Total time managing care of this patient today ____ minutes. Quality Stroke Does the patient have a stroke diagnosis?: No VTE Prior VTE?: No VTE Risk Level:: Medical - moderate - high VTE Device Contraindication: N/A - Device Ordered VTE Drug Contraindication: N/A - Med Ordered
--- NOTE | 2022-10-01 10:53 | P.PNIM_ITS ---
Subjective Subjective Date of Service: 10/01/22 Interval History: having stool in bag, passing gas Physical Exam Vital Signs: Vital Signs: Last Vital Signs Temp 98.0 F 10/01/22 03:35 Pulse 78 10/01/22 08:00 Resp 18 10/01/22 08:00 BP 103/67 10/01/22 08:00 Pulse Ox 95 10/01/22 08:00 O2 Del Method Room Air 10/01/22 08:00 O2 Flow Rate 1 09/25/22 11:26 BMI result Body Mass Index 20.5 Const: General: comfortable and no acute distress Resp: Effort & Inspection: normal respiratory effort Cardio: Rate: regular rate GI: Other: Stoma functioning well, midline incision dry, clean Palpation (GI): Soft to palpation, not firm and no guarding Objective Data Active Medications Bupropion HCl (Bupropion Hcl Xl 300 Mg Tab.Er.24h) 300 mg PO DAILY [facility] Last Admin: 10/01/22 08:07 Dose: 300 mg Documented By: GRUPO Clonidine HCl (Clonidine Hcl 0.1 Mg Tablet) 0.05 mg PO BID@0900,1500 [facility]; Protocol Last Admin: 10/01/22 08:08 Dose: 0.05 mg Documented By: GRUPO Clonidine HCl (Clonidine Hcl 0.1 Mg Tablet) 0.3 mg PO BEDTIME [facility]; Protocol Last Admin: 09/30/22 21:08 Dose: 0.3 mg Documented By: ARISTEO Famotidine (Famotidine 20 Mg Tablet) 20 mg PO BEDTIME [facility] Last Admin: 09/30/22 21:11 Dose: 20 mg Documented By: ARISTEO Gabapentin (Gabapentin 100 Mg Capsule) 100 mg PO TID [facility] Last Admin: 10/01/22 08:08 Dose: 100 mg Documented By: GRUPO Heparin Sodium (Porcine) (Heparin Sodium,Porcine 5,000 Unit/Ml Vial) 5,000 unit SUBCUT Q8H [facility] Last Admin: 10/01/22 05:04 Dose: Not Given Documented By: ARISTEO Non-Admin Reason: Patient Refused Hydromorphone HCl (Hydromorphone Hcl 0.5 Mg/0.5 Ml Syringe) 0.5 mg IVPUSH Q3H PRN; Protocol PRN Reason: Pain, Severe (Pain Scale 7-10) Last Admin: 09/29/22 06:13 Dose: 0.5 mg Documented By: CHRISTOPHER Methadone HCl (Methadone Hcl 20 Mg/2 Ml Oral.Conc) 65 mg PO DAILY [facility] Last Admin: 10/01/22 08:09 Dose: 65 mg Documented By: GRUPO Metronidazole (Metronidazole 250 Mg Tablet) 250 mg PO TID [facility] Last Admin: 10/01/22 08:07 Dose: 250 mg Documented By: GRUPO Nicotine (Nicotine 14 Mg Patch.Td24) 14 mg TRANSDERMA DAILY [facility] Last Admin: 10/01/22 09:23 Dose: Not Given Documented By: GRUPO Non-Admin Reason: Patient Refused Nicotine Polacrilex (Nicotine Polacrilex 2 Mg Gum) 4 mg BUCCAL Q2H PRN PRN Reason: Nicotine Cravings Omeprazole (Omeprazole 40 Mg Capsule.Dr) 40 mg PO DAILY@0630 [facility] Last Admin: 10/01/22 05:04 Dose: Not Given Documented By: ARISTEO Non-Admin Reason: Patient Refused Ondansetron HCl (Ondansetron Odt 4 Mg Tab.Rapdis) 4 mg TRANSLINGU Q6H PRN PRN Reason: Nausea Last Admin: 09/28/22 10:15 Dose: 4 mg Documented By: ARGENTINA Oxycodone HCl (Oxycodone Hcl Immed Release 5 Mg Tablet) 10 mg PO Q4H PRN PRN Reason: Pain, Severe (Pain Scale 7-10) Last Admin: 10/01/22 08:17 Dose: 10 mg Documented By: GRUPO Prednisone (Prednisone 10 Mg Tablet) 10 mg PO DAILY [facility]; Taper Stop: 10/02/22 08:59 Last Admin: 10/01/22 08:08 Dose: 10 mg Documented By: GRUPO Quetiapine Fumarate (Quetiapine Fumarate 50 Mg Tablet) 50 mg PO Q4H PRN PRN Reason: AH/agitation Last Admin: 09/24/22 06:24 Dose: 50 mg Documented By: WESTLEY Quetiapine Fumarate (Quetiapine Fumarate 100 Mg Tablet) 100 mg PO BID@0900,1500 [facility] Last Admin: 09/25/22 08:46 Dose: Not Given Documented By: ONEIDA Non-Admin Reason: Patient Refused Quetiapine Fumarate (Quetiapine Fumarate 200 Mg Tablet) 200 mg PO BEDTIME [facility] Last Admin: 09/30/22 21:09 Dose: 200 mg Documented By: ARISTEO Sertraline HCl (Sertraline Hcl 50 Mg Tablet) 50 mg PO DAILY [facility] Last Admin: 10/01/22 08:08 Dose: 50 mg Documented By: GRUPO Sodium Chloride (0.9 % Sodium Chloride Flush 3 Ml Syringe) 3 ml IVFLUSH QSHIFT [facility] Last Admin: 10/01/22 08:12 Dose: Not Given Documented By: GRUPO Non-Admin Reason: No Access Sodium Chloride (0.9 % Sodium Chloride Flush 3 Ml Syringe) 3 ml IVFLUSH QSHIFT [facility] Last Admin: 10/01/22 08:12 Dose: Not Given Documented By: GRUPO Non-Admin Reason: No Access Thiamine HCl (Thiamine Hcl 100 Mg Tablet) 100 mg PO DAILY [facility] Last Admin: 10/01/22 08:07 Dose: 100 mg Documented By: GRUPO Trazodone HCl (Trazodone Hcl 50 Mg Tablet) 50 mg PO BEDTIME MRX1 PRN PRN Reason: Insomnia Last Admin: 09/24/22 23:51 Dose: 50 mg Documented By: MICHELLE Trazodone HCl (Trazodone Hcl 100 Mg Tablet) 200 mg PO BEDTIME [facility] Last Admin: 09/30/22 21:07 Dose: 200 mg Documented By: ARISTEO Labs 09/25/22 06:18 09/27/22 08:24 Assessment and Plan (1) Status post Maya procedure: Status: Acute (2) Colitis: Status: Acute (3) Intractable abdominal pain: Status: Acute Plan 47M PMH of hypertension, IV drug abuse, cocaine acuse, hepatitis-C, depression, PTSD, depression with SI and suicidal attempt, anxiety and Crohns disease admitted to surgery team from adult psychiatry for management of intractable abdominal pain, poor PO intake, CT scan showing worsening stricture of colon. crohns with acute xacerbation complicated by Colon stricture status post Maya procedure tolerating solids mesalamine, steroid taper, gi following Polysubstance abuse with opiate dependence continue methadone MDD resume psych meds as prescribed No SI thoughts to get Care team eval prior to DC basal inferior akinesis on recent echo outpatient stress test with cardio Anorexia, moderate protein calorie malnutrition related to IBD and depression 50 pound weight loss since passing of in May ensure appears medically stable, awaiting placement, will sign off for now, please recall if needed Time Spent With Patient Time: Total time managing care of this patient today ____ minutes. Quality Stroke Does the patient have a stroke diagnosis?: No VTE Prior VTE?: No VTE Risk Level:: Medical - moderate - high VTE Device Contraindication: N/A - Device Ordered VTE Drug Contraindication: N/A - Med Ordered
[2022-10-01 11:00] LABS: Hematocrit 29.4 % (42.0-52.0); Mean Corpuscular HGB Conc 30.6 g/dl (31.0-36.0); Mean Corpuscular Hemoglobin 29.5 pg (27.0-33.0); Mean Corpuscular Volume 96.4 fL (80.0-98.0); Mean Platelet Volume 8.7 fL (9.4-12.4); Platelet Count 444 X10*3/uL (160-400); Red Blood Count 3.05 X10*6/uL (4.60-5.80); White Blood Count 11.2 X10*3/uL (4.8-10.8)
[2022-10-01 11:19] LABS: Anion Gap 12 (12-20); Blood Urea Nitrogen 17 mg/dL (9-16); Calcium 9.1 mg/dL (8.4-10.2); Carbon Dioxide 33 mmol/L (22-29); Chloride 101 mmol/L (96-108); Creatinine Clr Calc Pharmacy 102.6; Estimated Glomerular Filt Rate > 60; Glucose Fasting 112 mg/dL (60-99); Potassium 4.7 mmol/L (3.3-5.1); Sodium 141 mmol/L (135-145)
[2022-10-01 14:52] VITALS: BP 105/65; PULSE 73; RESP 18; TEMP 36.2; O2SAT 95
[2022-10-01 19:32] VITALS: BP 104/69; PULSE 80; RESP 16; TEMP 36; O2SAT 98
[2022-10-01] MEDS: Famotidine 20 MG TABLET PO (20:55)
[2022-10-01] MEDS: traZODone HCL 100 MG TABLET 200 MG PO (20:55)
[2022-10-01] MEDS: QUEtiapine Fumarate 200 MG TABLET PO (20:55)
[2022-10-01] MEDS: cloNIDine HCL 0.1 MG TABLET 0.3 MG PO (20:56)
[2022-10-01] MEDS: Morphine Sulfate Immed Release 15 MG TABLET PO (20:56)
[2022-10-01] MEDS: Heparin Sodium,Porcine 5,000 UNIT/ML VIAL 5000 UNIT SUBCUT (20:58)
[2022-10-02] MEDS: oxyCODONE HCl Immed Release 5 MG TABLET 10 MG PO ×4 (01:09→20:47)
[2022-10-02] MEDS: Omeprazole 40 MG CAPSULE.DR PO (05:52)
[2022-10-02 07:26] VITALS: BP 101/62; PULSE 74; RESP 18; TEMP 36.3; O2SAT 93
--- NOTE | 2022-10-02 08:06 | P.PNGS_ITS ---
Subjective Subjective Date of Service: 10/02/22 Interval history: has incisional pain on p.o. pain meds not taking any IV pain meds good oral intake has been ambulating Physical Exam Vital Signs: Vital Signs: Last Vital Signs Temp 97.4 F 10/02/22 07:26 Pulse 74 10/02/22 07:26 Resp 18 10/02/22 07:26 BP 101/62 10/02/22 07:26 Pulse Ox 93 10/02/22 07:26 O2 Del Method Room Air 10/02/22 07:26 O2 Flow Rate 1 09/25/22 11:26 BMI result Body Mass Index 20.5 Const: General: comfortable and no acute distress Resp: Effort & Inspection: normal respiratory effort Cardio: Rate: regular rate GI: Other: stoma with good output,, incision clean and dry Inspection: No distended Palpation (GI): Soft to palpation, not firm and no guarding Objective Data Active Medications Bupropion HCl (Bupropion Hcl Xl 300 Mg Tab.Er.24h) 300 mg PO DAILY [facility] Last Admin: 10/01/22 08:07 Dose: 300 mg Documented By: GRUPO Clonidine HCl (Clonidine Hcl 0.1 Mg Tablet) 0.05 mg PO BID@0900,1500 [facility]; Protocol Last Admin: 10/01/22 14:48 Dose: 0.05 mg Documented By: GRUPO Clonidine HCl (Clonidine Hcl 0.1 Mg Tablet) 0.3 mg PO BEDTIME [facility]; Protocol Last Admin: 10/01/22 20:56 Dose: 0.3 mg Documented By: WESTLEY Famotidine (Famotidine 20 Mg Tablet) 20 mg PO BEDTIME [facility] Last Admin: 10/01/22 20:55 Dose: 20 mg Documented By: WESTLEY Gabapentin (Gabapentin 100 Mg Capsule) 100 mg PO TID [facility] Last Admin: 10/01/22 20:55 Dose: 100 mg Documented By: WESTLEY Heparin Sodium (Porcine) (Heparin Sodium,Porcine 5,000 Unit/Ml Vial) 5,000 unit SUBCUT Q8H [facility] Last Admin: 10/02/22 05:53 Dose: Not Given Documented By: MADELINE Non-Admin Reason: Patient Refused Hydromorphone HCl (Hydromorphone Hcl 0.5 Mg/0.5 Ml Syringe) 0.5 mg IVPUSH Q3H PRN; Protocol PRN Reason: Pain, Severe (Pain Scale 7-10) Last Admin: 09/29/22 06:13 Dose: 0.5 mg Documented By: ALEKSANDERILJack Methadone HCl (Methadone Hcl 20 Mg/2 Ml Oral.Conc) 65 mg PO DAILY [facility] Last Admin: 10/01/22 08:09 Dose: 65 mg Documented By: GRUPO Metronidazole (Metronidazole 250 Mg Tablet) 250 mg PO TID [facility] Last Admin: 10/01/22 20:55 Dose: 250 mg Documented By: WESTLEY Nicotine (Nicotine 14 Mg Patch.Td24) 14 mg TRANSDERMA DAILY [facility] Last Admin: 10/01/22 09:23 Dose: Not Given Documented By: GRUPO Non-Admin Reason: Patient Refused Nicotine Polacrilex (Nicotine Polacrilex 2 Mg Gum) 4 mg BUCCAL Q2H PRN PRN Reason: Nicotine Cravings Omeprazole (Omeprazole 40 Mg Capsule.Dr) 40 mg PO DAILY@0630 [facility] Last Admin: 10/02/22 05:52 Dose: 40 mg Documented By: MADELINE Ondansetron HCl (Ondansetron Odt 4 Mg Tab.Rapdis) 4 mg TRANSLINGU Q6H PRN PRN Reason: Nausea Last Admin: 09/28/22 10:15 Dose: 4 mg Documented By: ARGENTINA Oxycodone HCl (Oxycodone Hcl Immed Release 5 Mg Tablet) 10 mg PO Q4H PRN PRN Reason: Pain, Severe (Pain Scale 7-10) Last Admin: 10/02/22 05:52 Dose: 10 mg Documented By: MADELINE Prednisone (Prednisone 10 Mg Tablet) 10 mg PO DAILY [facility]; Taper Stop: 10/02/22 08:59 Last Admin: 10/01/22 08:08 Dose: 10 mg Documented By: GRUPO Quetiapine Fumarate (Quetiapine Fumarate 50 Mg Tablet) 50 mg PO Q4H PRN PRN Reason: AH/agitation Last Admin: 09/24/22 06:24 Dose: 50 mg Documented By: WESTLEY Quetiapine Fumarate (Quetiapine Fumarate 100 Mg Tablet) 100 mg PO BID@0900,1500 [facility] Last Admin: 09/25/22 08:46 Dose: Not Given Documented By: ONEIDA Non-Admin Reason: Patient Refused Quetiapine Fumarate (Quetiapine Fumarate 200 Mg Tablet) 200 mg PO BEDTIME [facility] Last Admin: 10/01/22 20:55 Dose: 200 mg Documented By: WESTLEY Sertraline HCl (Sertraline Hcl 50 Mg Tablet) 50 mg PO DAILY [facility] Last Admin: 10/01/22 08:08 Dose: 50 mg Documented By: GRUPO Sodium Chloride (0.9 % Sodium Chloride Flush 3 Ml Syringe) 3 ml IVFLUSH QSDCFT [facility] Last Admin: 10/02/22 07:22 Dose: Not Given Documented By: RUBY Non-Admin Reason: No Access Sodium Chloride (0.9 % Sodium Chloride Flush 3 Ml Syringe) 3 ml IVFLUSH QSDCFT [facility] Last Admin: 10/02/22 07:22 Dose: Not Given Documented By: RUBY Non-Admin Reason: No Access Thiamine HCl (Thiamine Hcl 100 Mg Tablet) 100 mg PO DAILY [facility] Last Admin: 10/01/22 08:07 Dose: 100 mg Documented By: GRUPO Trazodone HCl (Trazodone Hcl 50 Mg Tablet) 50 mg PO BEDTIME MRX1 PRN PRN Reason: Insomnia Last Admin: 09/24/22 23:51 Dose: 50 mg Documented By: MICHELLE Trazodone HCl (Trazodone Hcl 100 Mg Tablet) 200 mg PO BEDTIME [facility] Last Admin: 10/01/22 20:55 Dose: 200 mg Documented By: WESTLEY Labs 10/01/22 10:54 10/01/22 10:54 Labs: Laboratory Results - last 24 hr 10/01/22 10/01/22 10:54 10:54 MCV 96.4 MCH 29.5 MCHC 30.6 L RDW 18.0 H Plt Count 444 H MPV 8.7 L Absolute Nucleated RBC 0.000 Nucleated RBC % (auto) 0.0 Anion Gap 12 Estim Creat Clear Calc 102.6 Estimated GFR > 60 Fasting Glucose 112 H Calcium 9.1 D Procedures Date of Service Date of Service: 10/02/22 Progress Note: A&P Assessment and plan (1) Status post Maya procedure: Status: Acute Assessment and Plan: doing well clinically as per psychiatrist, okay to discharge to rehab or nursing, does not need to go back to psych unit psych meds adjusted good GI function looks well path report shows transmural inflammation, acute on chronic GI follow-up for possible Crohn's awaiting placement - patient is homeless, does not have family discussed with porter sample case as Time Spent With Patient Time: Total time managing care of this patient today ____ minutes. Quality Stroke Does the patient have a stroke diagnosis?: No VTE Prior VTE?: No VTE Risk Level:: Medical - moderate - high VTE Device Contraindication: N/A - Device Ordered VTE Drug Contraindication: N/A - Med Ordered
[2022-10-02] MEDS: cloNIDine HCL 0.1 MG TABLET 0.05 MG PO ×2 (08:09→14:19)
[2022-10-02] MEDS: buPROPion HCl XL 300 MG TAB.ER.24H PO (08:10)
[2022-10-02] MEDS: Sertraline HCL 50 MG TABLET PO (08:10)
[2022-10-02] MEDS: methADONE HCl 20 MG/2 ML ORAL.CONC 65 MG PO (08:10)
[2022-10-02] MEDS: Gabapentin 100 MG CAPSULE PO ×3 (08:12→20:47)
[2022-10-02] MEDS: Thiamine HCL 100 MG TABLET PO (08:14)
[2022-10-02] MEDS: metroNIDAZOLE 250 MG TABLET PO ×3 (08:14→20:47)
--- NOTE | 2022-10-02 11:49 | MHC.CM.PN ---
Addendum entered by Courtney Ochoa 10/02/22 14:55: If DP changes notify Rajinder Crawford. She will coordinate with the facility. Addendum entered by Courtney Ochoa 10/02/22 14:26: RAJINDER Rubio sent a tiger text notifying of the infusion. The frequency/duration is week 0,2 and 6 Addendum entered by Courtney Ochoa 10/02/22 14:24: The patient will receive Infliximab infusions @ [facility]. He will need to transport from the SNF via PT1. Original Note: [facility] is following for discharge. Per surgeon discharge is anticipated over the weekend/Wednesday.The patient was started on Methadone @ [facility]. The Recovery team has been notified of discharge. They will set up the guest dosing for [facility]. DP [facility] via BLS.
--- NOTE | 2022-10-02 12:03 | MHC.CLN ---
F/U DIET=REGULAR WITH ENSURE MAX TID (450 KCALS, 90 G PROTEIN). TOLERATING DIET WITH VARIABLE INTAKE, 25-100%. CONTINUE CURRENT DIET AND SUPPLEMENT. MONITOR FOR PO TOLERANCE AND INTAKE.
[2022-10-02 15:37] VITALS: BP 102/66; PULSE 77; RESP 20; TEMP 36; O2SAT 93
[2022-10-02] MEDS: Ondansetron ODT 4 MG TAB.RAPDIS TRANSLINGU (15:41)
[2022-10-02 19:36] VITALS: BP 116/62; PULSE 78; RESP 18; TEMP 36.2; O2SAT 100
[2022-10-02] MEDS: Famotidine 20 MG TABLET PO (20:47)
[2022-10-02] MEDS: traZODone HCL 100 MG TABLET 200 MG PO (20:47)
[2022-10-02] MEDS: QUEtiapine Fumarate 200 MG TABLET PO (20:47)
[2022-10-02] MEDS: cloNIDine HCL 0.1 MG TABLET 0.3 MG PO (20:48)
[2022-10-03] MEDS: oxyCODONE HCl Immed Release 5 MG TABLET 10 MG PO ×4 (01:23→19:44)
[2022-10-03] MEDS: Omeprazole 40 MG CAPSULE.DR PO (06:01)
[2022-10-03 08:00] VITALS: BP 100/60; PULSE 73; RESP 17; TEMP 36.3; O2SAT 95
[2022-10-03] MEDS: methADONE HCl 20 MG/2 ML ORAL.CONC 65 MG PO (08:41)
[2022-10-03] MEDS: Thiamine HCL 100 MG TABLET PO (08:44)
[2022-10-03] MEDS: buPROPion HCl XL 300 MG TAB.ER.24H PO (08:44)
[2022-10-03] MEDS: cloNIDine HCL 0.1 MG TABLET 0.05 MG PO ×2 (08:44→15:16)
[2022-10-03] MEDS: Gabapentin 100 MG CAPSULE PO ×3 (08:45→20:56)
[2022-10-03] MEDS: Sertraline HCL 50 MG TABLET PO (08:46)
[2022-10-03] MEDS: metroNIDAZOLE 250 MG TABLET PO ×3 (08:46→20:56)
--- NOTE | 2022-10-03 10:01 | PC.NURSE ---
Bharathi nichole d/c ashley from psych, Kathy Casillas NP. Patient contract with staff that he will notify us if he has any feelings of SI.
--- NOTE | 2022-10-03 10:28 | P.PNGS_ITS ---
Subjective Subjective Date of Service: 10/03/22 Interval history: describes some pain with eating otherwise appears to have good GI function says he ambulates regularly Physical Exam Vital Signs: Vital Signs: Last Vital Signs Temp 97.4 F 10/03/22 08:00 Pulse 73 10/03/22 08:00 Resp 17 10/03/22 08:00 BP 100/60 10/03/22 08:00 Pulse Ox 95 10/03/22 08:00 O2 Del Method Room Air 10/03/22 08:00 O2 Flow Rate 1 09/25/22 11:26 BMI result Body Mass Index 20.5 Const: General: comfortable and no acute distress Resp: Effort & Inspection: normal respiratory effort Cardio: Rate: regular rate GI: Other: some tenderness along incision, sstoma functioning well Palpation (GI): Soft to palpation, not firm and no guarding Objective Data Active Medications Bupropion HCl (Bupropion Hcl Xl 300 Mg Tab.Er.24h) 300 mg PO DAILY [facility] Last Admin: 10/03/22 08:44 Dose: 300 mg Documented By: GRUPO Clonidine HCl (Clonidine Hcl 0.1 Mg Tablet) 0.05 mg PO BID@0900,1500 [facility]; Protocol Last Admin: 10/03/22 08:44 Dose: 0.05 mg Documented By: GRUPO Clonidine HCl (Clonidine Hcl 0.1 Mg Tablet) 0.3 mg PO BEDTIME [facility]; Protocol Last Admin: 10/02/22 20:48 Dose: 0.3 mg Documented By: WESTLEY Famotidine (Famotidine 20 Mg Tablet) 20 mg PO BEDTIME [facility] Last Admin: 10/02/22 20:47 Dose: 20 mg Documented By: WESTLEY Gabapentin (Gabapentin 100 Mg Capsule) 100 mg PO TID [facility] Last Admin: 10/03/22 08:45 Dose: 100 mg Documented By: GRUPO Heparin Sodium (Porcine) (Heparin Sodium,Porcine 5,000 Unit/Ml Vial) 5,000 unit SUBCUT Q8H [facility] Last Admin: 10/03/22 06:25 Dose: Not Given Documented By: WESTLEY Non-Admin Reason: Patient Refused Hydromorphone HCl (Hydromorphone Hcl 0.5 Mg/0.5 Ml Syringe) 0.5 mg IVPUSH Q3H PRN; Protocol PRN Reason: Pain, Severe (Pain Scale 7-10) Last Admin: 09/29/22 06:13 Dose: 0.5 mg Documented By: CASTILM Methadone HCl (Methadone Hcl 20 Mg/2 Ml Oral.Conc) 65 mg PO DAILY [facility] Last Admin: 10/03/22 08:41 Dose: 65 mg Documented By: GRUPO Metronidazole (Metronidazole 250 Mg Tablet) 250 mg PO TID [facility] Last Admin: 10/03/22 08:46 Dose: 250 mg Documented By: GRUPO Nicotine (Nicotine 14 Mg Patch.Td24) 14 mg TRANSDERMA DAILY [facility] Last Admin: 10/03/22 08:48 Dose: Not Given Documented By: GRUPO Non-Admin Reason: Patient Refused Nicotine Polacrilex (Nicotine Polacrilex 2 Mg Gum) 4 mg BUCCAL Q2H PRN PRN Reason: Nicotine Cravings Omeprazole (Omeprazole 40 Mg Capsule.Dr) 40 mg PO DAILY@0630 [facility] Last Admin: 10/03/22 06:01 Dose: 40 mg Documented By: WESTLEY Ondansetron HCl (Ondansetron Odt 4 Mg Tab.Rapdis) 4 mg TRANSLINGU Q6H PRN PRN Reason: Nausea Last Admin: 10/02/22 15:41 Dose: 4 mg Documented By: RUBY Oxycodone HCl (Oxycodone Hcl Immed Release 5 Mg Tablet) 10 mg PO Q4H PRN PRN Reason: Pain, Severe (Pain Scale 7-10) Last Admin: 10/03/22 06:01 Dose: 10 mg Documented By: WESTLEY Quetiapine Fumarate (Quetiapine Fumarate 50 Mg Tablet) 50 mg PO Q4H PRN PRN Reason: AH/agitation Last Admin: 09/24/22 06:24 Dose: 50 mg Documented By: WESTLEY Quetiapine Fumarate (Quetiapine Fumarate 100 Mg Tablet) 100 mg PO BID@0900,1500 [facility] Last Admin: 09/25/22 08:46 Dose: Not Given Documented By: ONEIDA Non-Admin Reason: Patient Refused Quetiapine Fumarate (Quetiapine Fumarate 200 Mg Tablet) 200 mg PO BEDTIME [facility] Last Admin: 10/02/22 20:47 Dose: 200 mg Documented By: WESTLEY Sertraline HCl (Sertraline Hcl 50 Mg Tablet) 50 mg PO DAILY [facility] Last Admin: 10/03/22 08:46 Dose: 50 mg Documented By: GRUPO Sodium Chloride (0.9 % Sodium Chloride Flush 3 Ml Syringe) [facility] Last Admin: 10/03/22 08:48 Dose: Not Given Documented By: GRUPO Non-Admin Reason: No Access Sodium Chloride (0.9 % Sodium Chloride Flush 3 Ml Syringe) [facility] Last Admin: 10/03/22 08:48 Dose: Not Given Documented By: GRUPO Non-Admin Reason: No Access Thiamine HCl (Thiamine Hcl 100 Mg Tablet) 100 mg PO DAILY [facility] Last Admin: 10/03/22 08:44 Dose: 100 mg Documented By: GRUPO Trazodone HCl (Trazodone Hcl 50 Mg Tablet) 50 mg PO BEDTIME MRX1 PRN PRN Reason: Insomnia Last Admin: 09/24/22 23:51 Dose: 50 mg Documented By: MICHELLE Trazodone HCl (Trazodone Hcl 100 Mg Tablet) 200 mg PO BEDTIME [facility] Last Admin: 10/02/22 20:47 Dose: 200 mg Documented By: DANNIP Labs 10/01/22 10:54 10/01/22 10:54 Procedures Date of Service Date of Service: 10/03/22 Progress Note: A&P Assessment and plan (1) Status post Maya procedure: Status: Acute Assessment and Plan: looks well admits to being a little depressed but denies suicidal ideations as per Psych - does not need to go bck to Psych unit awaiting placement - dw [employer] followed by GI - they will coordinate infusions for treatment of IBD with Rehab on PO pain meds Time Spent With Patient Time: Total time managing care of this patient today ____ minutes. Quality Stroke Does the patient have a stroke diagnosis?: No VTE Prior VTE?: No VTE Risk Level:: Medical - moderate - high VTE Device Contraindication: N/A - Device Ordered VTE Drug Contraindication: N/A - Med Ordered
--- NOTE | 2022-10-03 11:51 | MHC.RECOVRN ---
Pts referral has been sent to [facility] to present to [facility] with last dose letter.
[2022-10-03 15:20] VITALS: BP 103/67; PULSE 82; RESP 18; TEMP 36.6; O2SAT 94
[2022-10-03 19:34] VITALS: BP 101/60; PULSE 82; RESP 18; TEMP 36.3; O2SAT 96
[2022-10-03] MEDS: Famotidine 20 MG TABLET PO (20:55)
[2022-10-03] MEDS: traZODone HCL 100 MG TABLET 200 MG PO (20:55)
[2022-10-03] MEDS: QUEtiapine Fumarate 200 MG TABLET PO (20:56)
[2022-10-03] MEDS: cloNIDine HCL 0.1 MG TABLET 0.3 MG PO (20:56)
[2022-10-04] MEDS: oxyCODONE HCl Immed Release 5 MG TABLET 10 MG PO ×3 (05:40→20:34)
[2022-10-04] MEDS: Omeprazole 40 MG CAPSULE.DR PO (05:40)
[2022-10-04 07:59] VITALS: BP 95/60; PULSE 72; RESP 16; TEMP 36.6; O2SAT 95
[2022-10-04] MEDS: Gabapentin 100 MG CAPSULE PO ×3 (08:52→20:35)
[2022-10-04] MEDS: metroNIDAZOLE 250 MG TABLET PO ×3 (08:52→20:35)
[2022-10-04] MEDS: cloNIDine HCL 0.1 MG TABLET 0.05 MG PO ×2 (08:52→15:55)
[2022-10-04] MEDS: Thiamine HCL 100 MG TABLET PO (08:52)
[2022-10-04] MEDS: buPROPion HCl XL 300 MG TAB.ER.24H PO (08:52)
[2022-10-04] MEDS: Sertraline HCL 50 MG TABLET PO (08:52)
[2022-10-04] MEDS: methADONE HCl 20 MG/2 ML ORAL.CONC 65 MG PO (08:53)
--- NOTE | 2022-10-04 10:54 | P.PNGS_ITS ---
Subjective Subjective Date of Service: 10/04/22 Interval history: no events reported pt does state he still has pain with meals on PO pain meds stoma has been functioning well Physical Exam Vital Signs: Vital Signs: Last Vital Signs Temp 97.8 F 10/04/22 07:59 Pulse 72 10/04/22 07:59 Resp 16 10/04/22 07:59 BP 95/60 10/04/22 07:59 Pulse Ox 95 10/04/22 07:59 O2 Del Method Room Air 10/04/22 07:59 O2 Flow Rate 1 09/25/22 11:26 BMI result Body Mass Index 20.5 Const: General: comfortable and no acute distress Resp: Effort & Inspection: normal respiratory effort Cardio: Rate: regular rate GI: Other: incisions clean, catrina intact, stoma functioning well Palpation (GI): Soft to palpation, not firm and no guarding Objective Data Active Medications Bupropion HCl (Bupropion Hcl Xl 300 Mg Tab.Er.24h) 300 mg PO DAILY [facility] Last Admin: 10/04/22 08:52 Dose: 300 mg Documented By: GRUPO Clonidine HCl (Clonidine Hcl 0.1 Mg Tablet) 0.05 mg PO BID@0900,1500 [facility]; Protocol Last Admin: 10/04/22 08:52 Dose: 0.05 mg Documented By: GRUPO Clonidine HCl (Clonidine Hcl 0.1 Mg Tablet) 0.3 mg PO BEDTIME [facility]; Protocol Last Admin: 10/03/22 20:56 Dose: 0.3 mg Documented By: WESTLEY Famotidine (Famotidine 20 Mg Tablet) 20 mg PO BEDTIME [facility] Last Admin: 10/03/22 20:55 Dose: 20 mg Documented By: WESTLEY Gabapentin (Gabapentin 100 Mg Capsule) 100 mg PO TID [facility] Last Admin: 10/04/22 08:52 Dose: 100 mg Documented By: GRUPO Heparin Sodium (Porcine) (Heparin Sodium,Porcine 5,000 Unit/Ml Vial) 5,000 unit SUBCUT Q8H [facility] Last Admin: 10/04/22 05:38 Dose: Not Given Documented By: WESTLEY Non-Admin Reason: Patient Refused Hydromorphone HCl (Hydromorphone Hcl 0.5 Mg/0.5 Ml Syringe) 0.5 mg IVPUSH Q3H PRN; Protocol PRN Reason: Pain, Severe (Pain Scale 7-10) Last Admin: 09/29/22 06:13 Dose: 0.5 mg Documented By: CASTILM Methadone HCl (Methadone Hcl 20 Mg/2 Ml Oral.Conc) 65 mg PO DAILY [facility] Last Admin: 10/04/22 08:53 Dose: 65 mg Documented By: GRUPO Metronidazole (Metronidazole 250 Mg Tablet) 250 mg PO TID [facility] Last Admin: 10/04/22 08:52 Dose: 250 mg Documented By: GRUPO Nicotine (Nicotine 14 Mg Patch.Td24) 14 mg TRANSDERMA DAILY [facility] Last Admin: 10/04/22 08:39 Dose: Not Given Documented By: GRUPO Non-Admin Reason: Patient Refused Nicotine Polacrilex (Nicotine Polacrilex 2 Mg Gum) 4 mg BUCCAL Q2H PRN PRN Reason: Nicotine Cravings Omeprazole (Omeprazole 40 Mg Capsule.Dr) 40 mg PO DAILY@0630 [facility] Last Admin: 10/04/22 05:40 Dose: 40 mg Documented By: WESTLEY Ondansetron HCl (Ondansetron Odt 4 Mg Tab.Rapdis) 4 mg TRANSLINGU Q6H PRN PRN Reason: Nausea Last Admin: 10/02/22 15:41 Dose: 4 mg Documented By: RUBY Oxycodone HCl (Oxycodone Hcl Immed Release 5 Mg Tablet) 10 mg PO Q4H PRN PRN Reason: Pain, Severe (Pain Scale 7-10) Last Admin: 10/04/22 05:40 Dose: 10 mg Documented By: WESTLEY Quetiapine Fumarate (Quetiapine Fumarate 50 Mg Tablet) 50 mg PO Q4H PRN PRN Reason: AH/agitation Last Admin: 09/24/22 06:24 Dose: 50 mg Documented By: WESTLEY Quetiapine Fumarate (Quetiapine Fumarate 100 Mg Tablet) 100 mg PO BID@0900,1500 [facility] Last Admin: 09/25/22 08:46 Dose: Not Given Documented By: ONEIDA Non-Admin Reason: Patient Refused Quetiapine Fumarate (Quetiapine Fumarate 200 Mg Tablet) 200 mg PO BEDTIME [facility] Last Admin: 10/03/22 20:56 Dose: 200 mg Documented By: WESTLEY Sertraline HCl (Sertraline Hcl 50 Mg Tablet) 50 mg PO DAILY [facility] Last Admin: 10/04/22 08:52 Dose: 50 mg Documented By: GRUPO Sodium Chloride (0.9 % Sodium Chloride Flush 3 Ml Syringe) [facility] Last Admin: 10/04/22 08:38 Dose: Not Given Documented By: GRUPO Non-Admin Reason: No Access Sodium Chloride (0.9 % Sodium Chloride Flush 3 Ml Syringe) [facility] Last Admin: 10/04/22 08:39 Dose: Not Given Documented By: GRUPO Non-Admin Reason: No Access Thiamine HCl (Thiamine Hcl 100 Mg Tablet) 100 mg PO DAILY [facility] Last Admin: 10/04/22 08:52 Dose: 100 mg Documented By: GRUPO Trazodone HCl (Trazodone Hcl 50 Mg Tablet) 50 mg PO BEDTIME MRX1 PRN PRN Reason: Insomnia Last Admin: 09/24/22 23:51 Dose: 50 mg Documented By: MICHELLE Trazodone HCl (Trazodone Hcl 100 Mg Tablet) 200 mg PO BEDTIME [facility] Last Admin: 10/03/22 20:55 Dose: 200 mg Documented By: WESTLEY Labs 10/01/22 10:54 10/01/22 10:54 Procedures Date of Service Date of Service: 10/04/22 Progress Note: A&P Assessment and plan (1) Status post Maya procedure: Status: Acute Assessment and Plan: continues to do well stoma functioning well abd soft and benign still has pain with meals - likely from active IBD GI following pt awaiting placement - 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 Quality Stroke Does the patient have a stroke diagnosis?: No VTE Prior VTE?: No VTE Risk Level:: Medical - moderate - high VTE Device Contraindication: N/A - Device Ordered VTE Drug Contraindication: N/A - Med Ordered
[2022-10-04] MEDS: Ondansetron ODT 4 MG TAB.RAPDIS TRANSLINGU (12:10)
[2022-10-04 15:36] LABS: Hematocrit 33.5 % (42.0-52.0); Hemoglobin 10.7 g/dl (14.0-18.0); Mean Corpuscular HGB Conc 31.9 g/dl (31.0-36.0); Mean Corpuscular Volume 93.8 fL (80.0-98.0); PLT CLUMP 1; Red Blood Count 3.57 X10*6/uL (4.60-5.80); Red Cell Distribution Width 17.5 % (11.0-16.0)
[2022-10-04 15:49] LABS: Anion Gap 16 (12-20); Blood Urea Nitrogen 28 mg/dL (9-16); Carbon Dioxide 24 mmol/L (22-29); Chloride 101 mmol/L (96-108); Creatinine Clr Calc Pharmacy 79.4; Estimated Glomerular Filt Rate > 60; Glucose Random 105 mg/dL (60-115); Magnesium 1.8 mg/dL (1.6-2.6); Potassium 5.3 mmol/L (3.3-5.1); Sodium 136 mmol/L (135-145)
[2022-10-04 15:58] LABS: Platelet Count 425 X10*3/uL (160-400); White Blood Count 10.2 X10*3/uL (4.8-10.8)
[2022-10-04 16:26] VITALS: BP 98/61; PULSE 80; RESP 18; TEMP 36.3; O2SAT 95
[2022-10-04 19:37] VITALS: BP 104/69; PULSE 77; RESP 18; TEMP 36.2; O2SAT 97
[2022-10-04] MEDS: traZODone HCL 100 MG TABLET 200 MG PO (20:34)
[2022-10-04] MEDS: QUEtiapine Fumarate 200 MG TABLET PO (20:35)
[2022-10-04] MEDS: Famotidine 20 MG TABLET PO (20:35)
[2022-10-04] MEDS: cloNIDine HCL 0.1 MG TABLET 0.3 MG PO (20:35)
[2022-10-05] MEDS: Acetaminophen 325 MG TABLET 650 MG PO ×2 (00:04→15:12)
[2022-10-05 04:00] VITALS: RESP 16
[2022-10-05] MEDS: oxyCODONE HCl Immed Release 5 MG TABLET 10 MG PO ×4 (05:59→20:46)
[2022-10-05] MEDS: Omeprazole 40 MG CAPSULE.DR PO (05:59)
[2022-10-05 07:14] VITALS: BP 104/64; PULSE 67; RESP 18; TEMP 36.5; O2SAT 95
[2022-10-05] MEDS: cloNIDine HCL 0.1 MG TABLET 0.05 MG PO ×2 (09:57→14:34)
[2022-10-05] MEDS: Gabapentin 100 MG CAPSULE PO ×3 (09:57→20:36)
[2022-10-05] MEDS: Sertraline HCL 50 MG TABLET PO (09:57)
[2022-10-05] MEDS: methADONE HCl 20 MG/2 ML ORAL.CONC 65 MG PO (09:57)
[2022-10-05] MEDS: buPROPion HCl XL 300 MG TAB.ER.24H PO (09:57)
[2022-10-05] MEDS: metroNIDAZOLE 250 MG TABLET PO ×3 (09:58→20:46)
[2022-10-05] MEDS: Thiamine HCL 100 MG TABLET PO (09:58)
--- NOTE | 2022-10-05 10:37 | MHC.CLN ---
F/U DIET=REGULAR WITH ENSURE MAX TID (450 KCALS, 90 G PROTEIN). TOLERATING DIET WITH VARIABLE INTAKE. MOST MEALS GREATER THAN 50%. CONTINUE CURRENT DIET AND SUPPLEMENT. MONITOR FOR PO TOLERANCE AND INTAKE. RD TO FOLLOW WEEKLY.
--- NOTE | 2022-10-05 10:51 | PM.PNGS ---
Subjective Subjective Date of Service: 10/05/22 Interval history: Denies new complaints Good GI functions Says he feels well today and does not feel depressed Physical Exam Vital Signs: Vital Signs: Last Vital Signs Temp 97.7 F 10/05/22 07:14 Pulse 67 10/05/22 07:14 Resp 18 10/05/22 07:14 BP 104/64 10/05/22 07:14 Pulse Ox 95 10/05/22 07:14 O2 Del Method Room Air 10/05/22 07:14 O2 Flow Rate 1 09/25/22 11:26 BMI result Body Mass Index 20.5 Const: General: comfortable and no acute distress Resp: Effort & Inspection: normal respiratory effort Cardio: Rate: regular rate GI: Other: Stoma functioning well, midline incision well healed, clean and dry Palpation (GI): Soft to palpation, not firm and no guarding Objective Data Active Medications Acetaminophen (Acetaminophen 325 Mg Tablet) 650 mg PO Q6H PRN PRN Reason: Pain, Mild (Pain Scale 1-3) Last Admin: 10/05/22 00:04 Dose: 650 mg Documented By: PRINCE Bupropion HCl (Bupropion Hcl Xl 300 Mg Tab.Er.24h) 300 mg PO DAILY [facility] Last Admin: 10/05/22 09:57 Dose: 300 mg Documented By: ALLISON Clonidine HCl (Clonidine Hcl 0.1 Mg Tablet) 0.05 mg PO BID@0900,1500 [facility]; Protocol Last Admin: 10/05/22 09:57 Dose: 0.05 mg Documented By: ALLISON Comments: Clonidine HCl (Clonidine Hcl 0.1 Mg Tablet) 0.3 mg PO BEDTIME [facility]; Protocol Last Admin: 10/04/22 20:35 Dose: 0.3 mg Documented By: PRINCE Famotidine (Famotidine 20 Mg Tablet) 20 mg PO BEDTIME [facility] Last Admin: 10/04/22 20:35 Dose: 20 mg Documented By: PRINCE Gabapentin (Gabapentin 100 Mg Capsule) 100 mg PO TID [facility] Last Admin: 10/05/22 09:57 Dose: 100 mg Documented By: ALLISON Heparin Sodium (Porcine) (Heparin Sodium,Porcine 5,000 Unit/Ml Vial) 5,000 unit SUBCUT Q8H [facility] Last Admin: 10/05/22 08:47 Dose: Not Given Documented By: ALLISON Non-Admin Reason: Patient Refused Hydromorphone HCl (Hydromorphone Hcl 0.5 Mg/0.5 Ml Syringe) 0.5 mg IVPUSH Q3H PRN; Protocol PRN Reason: Pain, Severe (Pain Scale 7-10) Last Admin: 09/29/22 06:13 Dose: 0.5 mg Documented By: CASTILJack Methadone HCl (Methadone Hcl 20 Mg/2 Ml Oral.Conc) 65 mg PO DAILY [facility] Last Admin: 10/05/22 09:57 Dose: 65 mg Documented By: ALLISON Metronidazole (Metronidazole 250 Mg Tablet) 250 mg PO TID [facility] Last Admin: 10/05/22 09:58 Dose: 250 mg Documented By: ALLISON Nicotine (Nicotine 14 Mg Patch.Td24) 14 mg TRANSDERMA DAILY [facility] Last Admin: 10/05/22 10:01 Dose: Not Given Documented By: ALLISON Non-Admin Reason: Patient Refused Nicotine Polacrilex (Nicotine Polacrilex 2 Mg Gum) 4 mg BUCCAL Q2H PRN PRN Reason: Nicotine Cravings Omeprazole (Omeprazole 40 Mg Capsule.Dr) 40 mg PO DAILY@0630 [facility] Last Admin: 10/05/22 05:59 Dose: 40 mg Documented By: PRINCE Ondansetron HCl (Ondansetron Odt 4 Mg Tab.Rapdis) 4 mg TRANSLINGU Q6H PRN PRN Reason: Nausea Last Admin: 10/04/22 12:10 Dose: 4 mg Documented By: GRUPO Quetiapine Fumarate (Quetiapine Fumarate 50 Mg Tablet) 50 mg PO Q4H PRN PRN Reason: AH/agitation Last Admin: 09/24/22 06:24 Dose: 50 mg Documented By: WESTLEY Quetiapine Fumarate (Quetiapine Fumarate 100 Mg Tablet) 100 mg PO BID@0900,1500 [facility] Last Admin: 09/25/22 08:46 Dose: Not Given Documented By: ONEIDA Non-Admin Reason: Patient Refused Quetiapine Fumarate (Quetiapine Fumarate 200 Mg Tablet) 200 mg PO BEDTIME [facility] Last Admin: 10/04/22 20:35 Dose: 200 mg Documented By: PRINCE Sertraline HCl (Sertraline Hcl 50 Mg Tablet) 50 mg PO DAILY [facility] Last Admin: 10/05/22 09:57 Dose: 50 mg Documented By: ALLISON Sodium Chloride (0.9 % Sodium Chloride Flush 3 Ml Syringe) 3 ml IVFLUSH [facility] Last Admin: 10/05/22 10:01 Dose: Not Given Documented By: ALLISON Non-Admin Reason: No Access Sodium Chloride (0.9 % Sodium Chloride Flush 3 Ml Syringe) 3 ml IVFLUSH [facility] Last Admin: 10/05/22 10:01 Dose: Not Given Documented By: ALLISON Non-Admin Reason: No Access Thiamine HCl (Thiamine Hcl 100 Mg Tablet) 100 mg PO DAILY [facility] Last Admin: 10/05/22 09:58 Dose: 100 mg Documented By: ALLISON Trazodone HCl (Trazodone Hcl 50 Mg Tablet) 50 mg PO BEDTIME MRX1 PRN PRN Reason: Insomnia Last Admin: 09/24/22 23:51 Dose: 50 mg Documented By: MICHELLE Trazodone HCl (Trazodone Hcl 100 Mg Tablet) 200 mg PO BEDTIME [facility] Last Admin: 10/04/22 20:34 Dose: 200 mg Documented By: LYSZ Labs 10/04/22 15:24 10/04/22 15:24 Labs: Laboratory Results - last 24 hr 10/04/22 10/04/22 15:24 15:24 MCV 93.8 MCH 30.0 MCHC 31.9 RDW 17.5 H Plt Count 425 H MPV Not Reportable Absolute Nucleated RBC 0.000 Nucleated RBC % (auto) 0.0 Anion Gap 16 Estim Creat Clear Calc 79.4 Estimated GFR > 60 Random Glucose 105 Calcium 9.0 Magnesium 1.8 Procedures Date of Service Date of Service: 10/05/22 Progress Note: A&P Assessment and plan (1) Status post Maya procedure: Status: Acute Assessment and Plan: Continues to do well Stoma functioning well Good oral intake Has been ambulating Awaiting placement Discussed with onsite case manager GI follow-up Time Spent With Patient Time: Total time managing care of this patient today ____ minutes. Quality Stroke Does the patient have a stroke diagnosis?: No VTE Prior VTE?: No VTE Risk Level:: Medical - moderate - high VTE Device Contraindication: N/A - Device Ordered VTE Drug Contraindication: N/A - Med Ordered
--- NOTE | 2022-10-05 12:11 | MHC.CM.PN ---
Addendum entered by Courtney Ochoa 10/05/22 14:01: PASRR level 1 started and sent to SNF for their part. Patient does not need a Level 2 PASRR; because <30 day stay. Original Note: [facility] via BLS. [facility] does not have a bed available today. They anticipate discharged in the next 2 days. The MDS was completed and sent to [facility] as well as to [facility]. The facility has received a clinical update too. CM will follow for placement.
[2022-10-05] MEDS: oxyCODONE HCl Immed Release 5 MG TABLET PO (14:34)
--- NOTE | 2022-10-05 15:10 | P.PNGI_ITS ---
Subjective Subjective Date of Service: 10/05/22 Interval History: Pt with new dx of possible crohns disease. Adm to hospital after S.I however course complicated by sigmoid stricture which was not been steroid responsive, leading to progressive LBO s/p hand assisted lap sigmoidectomy with colostomy formation and JAYLYN ( - Dr Winslow). Seen at bedside today. Reports decreased appetite due to significant abd pain postprandially. Has not been able to hydrate well either. Dx and road map discussed in detail. Also advised that tx will likely be indefinite and that will need to be consistent for it to work. Currently does not have any reliable means of contacting (lost his wallet and phone when he jumped from the bridge for S.A) or transport. Sigmoid colon path: Colon, sigmoid, segmental resection: - Marked mucosal acute and chronic inflammation with extensive ulceration and reactive changes; extending to proximal margin. - Patchy transmural and subserosal chronic inflammation. - 11 reactive appearing lymph nodes. - Negative for malignancy. COMMENT:? The findings are consistent with a chronic colitis with superimposed active inflammation and ulceration; some degree of ischemic injury is also evident. Critical Care Time (minutes): 0 Physical Exam 2 Vital Signs: Vital Signs: Last Vital Signs Temp 97.7 F 10/05/22 07:14 Pulse 67 10/05/22 07:14 Resp 18 10/05/22 07:14 BP 104/64 10/05/22 07:14 Pulse Ox 95 10/05/22 07:14 O2 Del Method Room Air 10/05/22 07:14 O2 Flow Rate 1 09/25/22 11:26 BMI result Body Mass Index 20.5 Gen appear: fatigued, pale Abd: soft, tender around staple line and stoma Objective Data Labs 10/04/22 15:24 10/04/22 15:24 Labs: Laboratory Results - last 24 hr 10/04/22 10/04/22 15:24 15:24 WBC 10.2 RBC 3.57 L Hgb 10.7 L Hct 33.5 L MCV 93.8 MCH 30.0 MCHC 31.9 RDW 17.5 H Plt Count 425 H MPV Not Reportable Absolute Nucleated RBC 0.000 Nucleated RBC % (auto) 0.0 Sodium 136 Potassium 5.3 H Chloride 101 Carbon Dioxide 24 Anion Gap 16 BUN 28 H Creatinine 1.06 Estim Creat Clear Calc 79.4 Estimated GFR > 60 Random Glucose 105 Calcium 9.0 Magnesium 1.8 Procedures Date of Service Date of Service: 10/05/22 Progress Note: A&P Assessment and plan (1) Colitis: Status: Acute (2) Sigmoid stricture: Status: Acute (3) Abdominal pain: Status: Deleted Plan #CD of small and large bowel - transmural inflamm on sigmoid colon path s/p sigmoid resection 09/24. Plan for infliximab induction. Have discussed with CM as well who will communicate this with the rehab facility to arrange for transport to [facility] infusion [facility]. Anticipate homelessness and lack of financial support as main barriers to care. He would benefit from seeing manager social responsibility while he is here to at least start the process of finding stable housing as well as to get a reliable way to c ontCerephex/new cell phone so that his treatments and appointments can be communicated to him as outpatient. Labs reviewed, BERNARD with doubling of Cr from last week. Likely prerenal from decreased PO but may need further eval. Recommendations: - IV Methylpred 60mg once daily x 3 days followed by PO - Cont flagyl 250 TID, to be cont'd for at least 8-12 w (start date 09/25/22) - Hosp med notified of BERNARD and 1L of LR ordered - Communicated with case mgmt to update of bed availability so infliximab inf usions can be started - Also requested them to have manager social responsibility see him for issues above Time Spent With Patient Time: Total time managing care of this patient today ____ minutes. Quality Stroke Does the patient have a stroke diagnosis?: No VTE Prior VTE?: No VTE Risk Level:: Medical - moderate - high VTE Device Contraindication: N/A - Device Ordered VTE Drug Contraindication: N/A - Med Ordered
--- NOTE | 2022-10-05 18:37 | PC.NURSE ---
MD Mack and MD Rayo Made aware via tiger text, unable to get IV access on patient, multiple attempts tried including see supervisor. No new orders at this time.
[2022-10-05 19:35] VITALS: BP 118/75; PULSE 85; RESP 18; TEMP 36.8; O2SAT 95
[2022-10-05 19:48] LABS: TPMT Activity 13
[2022-10-05] MEDS: methylPREDNISolone Sod Succ 125 MG/2 ML VIAL 60 MG IVPUSH (20:35)
[2022-10-05] MEDS: Lactated Ringers 1,000 ML 150 ML IVCONT (20:35)
[2022-10-05] MEDS: Famotidine 20 MG TABLET PO (20:36)
[2022-10-05] MEDS: cloNIDine HCL 0.1 MG TABLET 0.3 MG PO (20:36)
[2022-10-05] MEDS: QUEtiapine Fumarate 200 MG TABLET PO (20:36)
[2022-10-05] MEDS: traZODone HCL 100 MG TABLET 200 MG PO (20:36)
[2022-10-06 03:38] VITALS: BP 97/59; PULSE 73; RESP 16; TEMP 36.6; O2SAT 98
[2022-10-06] MEDS: Acetaminophen 325 MG TABLET 650 MG PO (04:00)
[2022-10-06] MEDS: oxyCODONE HCl Immed Release 5 MG TABLET 10 MG PO ×5 (04:00→23:29)
[2022-10-06 07:57] VITALS: BP 107/68; PULSE 64; RESP 20; TEMP 36; O2SAT 95
[2022-10-06] MEDS: Thiamine HCL 100 MG TABLET PO (08:53)
[2022-10-06] MEDS: Sertraline HCL 50 MG TABLET PO (08:53)
[2022-10-06] MEDS: buPROPion HCl XL 300 MG TAB.ER.24H PO (08:53)
[2022-10-06] MEDS: Gabapentin 100 MG CAPSULE PO ×3 (08:53→20:41)
[2022-10-06] MEDS: metroNIDAZOLE 250 MG TABLET PO ×3 (08:53→20:41)
[2022-10-06] MEDS: methADONE HCl 20 MG/2 ML ORAL.CONC 65 MG PO (08:54)
[2022-10-06] MEDS: methylPREDNISolone Sod Succ 125 MG/2 ML VIAL 60 MG IVPUSH (08:54)
[2022-10-06] MEDS: cloNIDine HCL 0.1 MG TABLET 0.05 MG PO ×2 (08:54→13:43)
[2022-10-06] MEDS: 0.9 % Sodium Chloride Flush 3 ML SYRINGE IVFLUSH ×3 (08:55→20:13)
--- NOTE | 2022-10-06 11:28 | MHC.CM.PN ---
A clinical update was sent to [facility] this am. [facility] via BLS pending an open male bed.
[2022-10-06 11:53] LABS: Hematocrit 35.5 % (42.0-52.0); Hemoglobin 10.9 g/dl (14.0-18.0); Mean Corpuscular HGB Conc 30.7 g/dl (31.0-36.0); Mean Corpuscular Hemoglobin 29.6 pg (27.0-33.0); Mean Corpuscular Volume 96.5 fL (80.0-98.0); Mean Platelet Volume 8.5 fL (9.4-12.4); Platelet Count 667 X10*3/uL (160-400); Red Blood Count 3.68 X10*6/uL (4.60-5.80); Red Cell Distribution Width 17.7 % (11.0-16.0); White Blood Count 5.5 X10*3/uL (4.8-10.8)
[2022-10-06 12:07] LABS: Anion Gap 14 (12-20); Blood Urea Nitrogen 19 mg/dL (9-16); Carbon Dioxide 28 mmol/L (22-29); Chloride 102 mmol/L (96-108); Creatinine Clr Calc Pharmacy 107.9; Estimated Glomerular Filt Rate > 60; Glucose Fasting 142 mg/dL (60-99); Potassium 5.5 mmol/L (3.3-5.1); Sodium 138 mmol/L (135-145)
--- NOTE | 2022-10-06 12:09 | PM.PNGS ---
Subjective Subjective Date of Service: 10/06/22 Interval history: no new complaints he says he is ambulating well tolerating diet still has pain on abd periodically with oral intake Physical Exam Vital Signs: Vital Signs: Last Vital Signs Temp 96.8 F 10/06/22 07:57 Pulse 64 10/06/22 07:57 Resp 20 10/06/22 07:57 BP 107/68 10/06/22 07:57 Pulse Ox 95 10/06/22 07:57 O2 Del Method Room Air 10/06/22 07:57 O2 Flow Rate 1 09/25/22 11:26 BMI result Body Mass Index 20.5 Const: General: comfortable and no acute distress Resp: Effort & Inspection: normal respiratory effort GI: Other: stoma functioning well Palpation (GI): Soft to palpation, not firm and no guarding Objective Data Active Medications Acetaminophen (Acetaminophen 325 Mg Tablet) 650 mg PO Q6H PRN PRN Reason: Pain, Mild (Pain Scale 1-3) Last Admin: 10/06/22 04:00 Dose: 650 mg Documented By: PRINCE Bupropion HCl (Bupropion Hcl Xl 300 Mg Tab.Er.24h) 300 mg PO DAILY [facility] Last Admin: 10/06/22 08:53 Dose: 300 mg Documented By: ALLISON Clonidine HCl (Clonidine Hcl 0.1 Mg Tablet) 0.05 mg PO BID@0900,1500 [facility]; Protocol Last Admin: 10/06/22 08:54 Dose: 0.05 mg Documented By: ALLISON Clonidine HCl (Clonidine Hcl 0.1 Mg Tablet) 0.3 mg PO BEDTIME [facility]; Protocol Last Admin: 10/05/22 20:36 Dose: 0.3 mg Documented By: PRINCE Famotidine (Famotidine 20 Mg Tablet) 20 mg PO BEDTIME [facility] Last Admin: 10/05/22 20:36 Dose: 20 mg Documented By: PRINCE Gabapentin (Gabapentin 100 Mg Capsule) 100 mg PO TID [facility] Last Admin: 10/06/22 08:53 Dose: 100 mg Documented By: ALLISON Heparin Sodium (Porcine) (Heparin Sodium,Porcine 5,000 Unit/Ml Vial) 5,000 unit SUBCUT Q8H [facility] Last Admin: 10/06/22 06:44 Dose: Not Given Documented By: PRINCE Non-Admin Reason: Patient Refused Hydromorphone HCl (Hydromorphone Hcl 0.5 Mg/0.5 Ml Syringe) 0.5 mg IVPUSH Q3H PRN; Protocol PRN Reason: Pain, Severe (Pain Scale 7-10) Last Admin: 09/29/22 06:13 Dose: 0.5 mg Documented By: CHRISTOPHER Methadone HCl (Methadone Hcl 20 Mg/2 Ml Oral.Conc) 65 mg PO DAILY [facility] Last Admin: 10/06/22 08:54 Dose: 65 mg Documented By: ALLISON Methylprednisolone Sodium Succinate (Methylprednisolone Sod Succ 125 Mg/2 Ml Vial) 60 mg IVPUSH DAILY [facility] Stop: 10/07/22 09:01 Last Admin: 10/06/22 08:54 Dose: 60 mg Documented By: ALLISON Metronidazole (Metronidazole 250 Mg Tablet) 250 mg PO TID [facility] Last Admin: 10/06/22 08:53 Dose: 250 mg Documented By: ALLISON Nicotine (Nicotine 14 Mg Patch.Td24) 14 mg TRANSDERMA DAILY [facility] Last Admin: 10/06/22 08:55 Dose: Not Given Documented By: ALLISON Non-Admin Reason: Patient Refused Nicotine Polacrilex (Nicotine Polacrilex 2 Mg Gum) 4 mg BUCCAL Q2H PRN PRN Reason: Nicotine Cravings Omeprazole (Omeprazole 40 Mg Capsule.Dr) 40 mg PO DAILY@0630 [facility] Last Admin: 10/06/22 06:17 Dose: Not Given Documented By: PRINCE Non-Admin Reason: Patient Refused Ondansetron HCl (Ondansetron Odt 4 Mg Tab.Rapdis) 4 mg TRANSLINGU Q6H PRN PRN Reason: Nausea Last Admin: 10/04/22 12:10 Dose: 4 mg Documented By: GRUPO Oxycodone HCl (Oxycodone Hcl Immed Release 5 Mg Tablet) 10 mg PO Q4H PRN PRN Reason: Pain, Moderate(Pain Scale 4-6) Last Admin: 10/06/22 08:53 Dose: 10 mg Documented By: ALLISON Quetiapine Fumarate (Quetiapine Fumarate 50 Mg Tablet) 50 mg PO Q4H PRN PRN Reason: AH/agitation Last Admin: 09/24/22 06:24 Dose: 50 mg Documented By: WESTLEY Quetiapine Fumarate (Quetiapine Fumarate 100 Mg Tablet) 100 mg PO BID@0900,1500 [facility] Last Admin: 09/25/22 08:46 Dose: Not Given Documented By: ONEIDA Non-Admin Reason: Patient Refused Quetiapine Fumarate (Quetiapine Fumarate 200 Mg Tablet) 200 mg PO BEDTIME [facility] Last Admin: 10/05/22 20:36 Dose: 200 mg Documented By: PRINCE Sertraline HCl (Sertraline Hcl 50 Mg Tablet) 50 mg PO DAILY [facility] Last Admin: 10/06/22 08:53 Dose: 50 mg Documented By: ALLISON Sodium Chloride (0.9 % Sodium Chloride Flush 3 Ml Syringe) 3 ml IVFLUSH [facility] Last Admin: 10/06/22 08:55 Dose: 3 ml Documented By: ALLISON Sodium Chloride (0.9 % Sodium Chloride Flush 3 Ml Syringe) [address] [facility] Last Admin: 10/06/22 08:55 Dose: Not Given Documented By: ALLISON Non-Admin Reason: No Access Thiamine HCl (Thiamine Hcl 100 Mg Tablet) 100 mg PO DAILY [facility] Last Admin: 10/06/22 08:53 Dose: 100 mg Documented By: ALLISON Trazodone HCl (Trazodone Hcl 50 Mg Tablet) 50 mg PO BEDTIME MRX1 PRN PRN Reason: Insomnia Last Admin: 09/24/22 23:51 Dose: 50 mg Documented By: MICHELLE Trazodone HCl (Trazodone Hcl 100 Mg Tablet) 200 mg PO BEDTIME [facility] Last Admin: 10/05/22 20:36 Dose: 200 mg Documented By: PRINCE Labs 10/06/22 11:40 10/06/22 11:40 Labs: Laboratory Results - last 24 hr 09/26/22 10/06/22 10/06/22 09:32 11:40 11:40 MCV 96.5 MCH 29.6 MCHC 30.7 L RDW 17.7 H Plt Count 667 H D MPV 8.5 L Absolute Nucleated RBC 0.000 Nucleated RBC % (auto) 0.0 Anion Gap 14 Estim Creat Clear Calc 107.9 Estimated GFR > 60 Fasting Glucose 142 H Calcium 10.0 D TPMT Activity, Quant 13 Procedures Date of Service Date of Service: 10/06/22 Progress Note: A&P Assessment and plan (1) Status post Maya procedure: Status: Acute Assessment and Plan: good stoma function has pain with oral intake, likely from active colitis started on IV steroids by GI looks well abd soft and benign repeat K tomorrow Time Spent With Patient Time: Total time managing care of this patient today ____ minutes. Quality Stroke Does the patient have a stroke diagnosis?: No VTE Prior VTE?: No VTE Risk Level:: Medical - moderate - high VTE Device Contraindication: N/A - Device Ordered VTE Drug Contraindication: N/A - Med Ordered
[2022-10-06 15:34] VITALS: BP 134/82; PULSE 84; RESP 18; TEMP 36.7; O2SAT 97
[2022-10-06] MEDS: QUEtiapine Fumarate 50 MG TABLET PO (16:08)
[2022-10-06] MEDS: cloNIDine HCL 0.1 MG TABLET 0.3 MG PO (20:40)
[2022-10-06] MEDS: traZODone HCL 100 MG TABLET 200 MG PO (20:41)
[2022-10-06] MEDS: Famotidine 20 MG TABLET PO (20:41)
[2022-10-06] MEDS: QUEtiapine Fumarate 200 MG TABLET PO (20:41)
[2022-10-06 23:35] VITALS: BP 139/86; PULSE 61; RESP 16; TEMP 36.1; O2SAT 98
[2022-10-07] MEDS: Gabapentin 100 MG CAPSULE PO ×3 (09:17→21:12)
[2022-10-07] MEDS: methylPREDNISolone Sod Succ 125 MG/2 ML VIAL 60 MG IVPUSH (09:17)
[2022-10-07] MEDS: metroNIDAZOLE 250 MG TABLET PO ×3 (09:17→21:12)
[2022-10-07] MEDS: Sertraline HCL 50 MG TABLET PO (09:17)
[2022-10-07] MEDS: Thiamine HCL 100 MG TABLET PO (09:17)
[2022-10-07] MEDS: buPROPion HCl XL 300 MG TAB.ER.24H PO (09:17)
[2022-10-07] MEDS: 0.9 % Sodium Chloride Flush 3 ML SYRINGE IVFLUSH ×2 (09:18→21:13)
[2022-10-07] MEDS: cloNIDine HCL 0.1 MG TABLET 0.05 MG PO ×2 (09:18→14:20)
[2022-10-07] MEDS: methADONE HCl 20 MG/2 ML ORAL.CONC 65 MG PO (09:18)
--- NOTE | 2022-10-07 09:28 | PM.PNGS ---
Subjective Subjective Date of Service: 10/07/22 Interval history: Seems depressed today Good stoma function Tolerating diet well Physical Exam Vital Signs: Vital Signs: Last Vital Signs Temp 96.9 F 10/06/22 23:35 Pulse 61 10/06/22 23:35 Resp 16 10/06/22 23:35 BP 139/86 10/06/22 23:35 Pulse Ox 98 10/06/22 23:35 O2 Del Method Room Air 10/06/22 23:35 O2 Flow Rate 1 09/25/22 11:26 BMI result Body Mass Index 20.5 Const: Other: Seems depressed General: comfortable and no acute distress Resp: Effort & Inspection: normal respiratory effort GI: Other: Incision clean and dry, stoma functioning Palpation (GI): Soft to palpation, not firm and no guarding Objective Data Active Medications Acetaminophen (Acetaminophen 325 Mg Tablet) 650 mg PO Q6H PRN PRN Reason: Pain, Mild (Pain Scale 1-3) Last Admin: 10/06/22 04:00 Dose: 650 mg Documented By: PRINCE Bupropion HCl (Bupropion Hcl Xl 300 Mg Tab.Er.24h) 300 mg PO DAILY [facility] Last Admin: 10/06/22 08:53 Dose: 300 mg Documented By: ALLISON Clonidine HCl (Clonidine Hcl 0.1 Mg Tablet) 0.05 mg PO BID@0900,1500 [facility]; Protocol Last Admin: 10/06/22 13:43 Dose: 0.05 mg Documented By: ALLISON Clonidine HCl (Clonidine Hcl 0.1 Mg Tablet) 0.3 mg PO BEDTIME [facility]; Protocol Last Admin: 10/06/22 20:40 Dose: 0.3 mg Documented By: CHELE Famotidine (Famotidine 20 Mg Tablet) 20 mg PO BEDTIME [facility] Last Admin: 10/06/22 20:41 Dose: 20 mg Documented By: CHELE Gabapentin (Gabapentin 100 Mg Capsule) 100 mg PO TID [facility] Last Admin: 10/06/22 20:41 Dose: 100 mg Documented By: CHELE Heparin Sodium (Porcine) (Heparin Sodium,Porcine 5,000 Unit/Ml Vial) 5,000 unit SUBCUT Q8H [facility] Last Admin: 10/07/22 05:33 Dose: Not Given Documented By: CHELE Non-Admin Reason: Patient Refused Hydromorphone HCl (Hydromorphone Hcl 0.5 Mg/0.5 Ml Syringe) 0.5 mg IVPUSH Q3H PRN; Protocol PRN Reason: Pain, Severe (Pain Scale 7-10) Last Admin: 09/29/22 06:13 Dose: 0.5 mg Documented By: CHRISTOPHER Methadone HCl (Methadone Hcl 20 Mg/2 Ml Oral.Conc) 65 mg PO DAILY [facility] Last Admin: 10/06/22 08:54 Dose: 65 mg Documented By: ALLISON Metronidazole (Metronidazole 250 Mg Tablet) 250 mg PO TID [facility] Last Admin: 10/06/22 20:41 Dose: 250 mg Documented By: CHELE Nicotine (Nicotine 14 Mg Patch.Td24) 14 mg TRANSDERMA DAILY [facility] Last Admin: 10/07/22 07:14 Dose: Not Given Documented By: ARGENT[place] Non-Admin Reason: Patient Refused Nicotine Polacrilex (Nicotine Polacrilex 2 Mg Gum) 4 mg BUCCAL Q2H PRN PRN Reason: Nicotine Cravings Omeprazole (Omeprazole 40 Mg Capsule.Dr) 40 mg PO DAILY@0630 [facility] Last Admin: 10/07/22 05:33 Dose: Not Given Documented By: CHELE Non-Admin Reason: Patient Refused Ondansetron HCl (Ondansetron Odt 4 Mg Tab.Rapdis) 4 mg TRANSLINGU Q6H PRN PRN Reason: Nausea Last Admin: 10/04/22 12:10 Dose: 4 mg Documented By: GRUPO Oxycodone HCl (Oxycodone Hcl Immed Release 5 Mg Tablet) 10 mg PO Q4H PRN PRN Reason: Pain, Moderate(Pain Scale 4-6) Last Admin: 10/06/22 23:29 Dose: 10 mg Documented By: CHELE Quetiapine Fumarate (Quetiapine Fumarate 50 Mg Tablet) 50 mg PO Q4H PRN PRN Reason: AH/agitation Last Admin: 10/06/22 16:08 Dose: 50 mg Documented By: HANSA Quetiapine Fumarate (Quetiapine Fumarate 100 Mg Tablet) 100 mg PO BID@0900,1500 [facility] Last Admin: 09/25/22 08:46 Dose: Not Given Documented By: MARCO ANTONIOEMA Non-Admin Reason: Patient Refused Quetiapine Fumarate (Quetiapine Fumarate 200 Mg Tablet) 200 mg PO BEDTIME [facility] Last Admin: 10/06/22 20:41 Dose: 200 mg Documented By: CHELE Sertraline HCl (Sertraline Hcl 50 Mg Tablet) 50 mg PO DAILY [facility] Last Admin: 10/06/22 08:53 Dose: 50 mg Documented By: ALLISON Sodium Chloride (0.9 % Sodium Chloride Flush 3 Ml Syringe) 3 ml IVFLUSH [facility] Last Admin: 10/07/22 00:02 Dose: Not Given Documented By: CHELE Non-Admin Reason: Patient Asleep Sodium Chloride (0.9 % Sodium Chloride Flush 3 Ml Syringe) [facility] Last Admin: 10/07/22 07:14 Dose: Not Given Documented By: ARGENT[place] Non-Admin Reason: Duplicate Order Thiamine HCl (Thiamine Hcl 100 Mg Tablet) 100 mg PO DAILY [facility] Last Admin: 10/06/22 08:53 Dose: 100 mg Documented By: ALLISON Trazodone HCl (Trazodone Hcl 50 Mg Tablet) 50 mg PO BEDTIME MRX1 PRN PRN Reason: Insomnia Last Admin: 09/24/22 23:51 Dose: 50 mg Documented By: MICHELLE Trazodone HCl (Trazodone Hcl 100 Mg Tablet) 200 mg PO BEDTIME [facility] Last Admin: 10/06/22 20:41 Dose: 200 mg Documented By: CHELE Labs 10/06/22 11:40 10/06/22 11:40 Labs: Laboratory Results - last 24 hr 10/06/22 10/06/22 11:40 11:40 MCV 96.5 MCH 29.6 MCHC 30.7 L RDW 17.7 H Plt Count 667 H D MPV 8.5 L Absolute Nucleated RBC 0.000 Nucleated RBC % (auto) 0.0 Anion Gap 14 Estim Creat Clear Calc 107.9 Estimated GFR > 60 Fasting Glucose 142 H Calcium 10.0 D Procedures Date of Service Date of Service: 10/07/22 Progress Note: A&P Assessment and plan (1) Status post Maya procedure: Status: Acute Assessment and Plan: I removed his skin staple Doing well GI has started him on steroids He has refused blood draws today -he says he will do it later on; explained to him we need to follow his potassium level Possible DC to rehab tomorrow as per welfare case worker Time Spent With Patient Time: Total time managing care of this patient today ____ minutes. Quality Stroke Does the patient have a stroke diagnosis?: No VTE Prior VTE?: No VTE Risk Level:: Medical - moderate - high VTE Device Contraindication: N/A - Device Ordered VTE Drug Contraindication: N/A - Med Ordered
[2022-10-07] MEDS: Acetaminophen 325 MG TABLET 650 MG PO (09:42)
[2022-10-07] MEDS: oxyCODONE HCl Immed Release 5 MG TABLET 10 MG PO ×4 (09:42→22:27)
[2022-10-07 14:57] LABS: Anion Gap 15 (12-20); Blood Urea Nitrogen 18 mg/dL (9-16); Calcium 9.3 mg/dL (8.4-10.2); Carbon Dioxide 23 mmol/L (22-29); Chloride 104 mmol/L (96-108); Creatinine Clr Calc Pharmacy 103.9; Estimated Glomerular Filt Rate > 60; Glucose Random 167 mg/dL (60-115); Potassium 5.1 mmol/L (3.3-5.1); Sodium 137 mmol/L (135-145)
[2022-10-07 15:47] VITALS: BP 124/69; PULSE 85; RESP 20; TEMP 36.4; O2SAT 95
[2022-10-07 19:40] VITALS: BP 130/62; PULSE 70; RESP 18; TEMP 36.6; O2SAT 98
[2022-10-07] MEDS: traZODone HCL 100 MG TABLET 200 MG PO (21:11)
[2022-10-07] MEDS: cloNIDine HCL 0.1 MG TABLET 0.3 MG PO (21:12)
[2022-10-07] MEDS: QUEtiapine Fumarate 200 MG TABLET PO (21:12)
[2022-10-07] MEDS: Famotidine 20 MG TABLET PO (21:12)
[2022-10-08 04:00] VITALS: RESP 16
[2022-10-08 07:52] VITALS: BP 112/72; PULSE 66; RESP 16; TEMP 36.2; O2SAT 95
--- NOTE | 2022-10-08 07:58 | PM.PNGS ---
Subjective Subjective Date of Service: 10/08/22 Interval history: no new complaints tolerating diet stoma functioning well a little depressed mood this morning Physical Exam Vital Signs: Vital Signs: Last Vital Signs Temp 97.1 F 10/08/22 07:52 Pulse 66 10/08/22 07:52 Resp 16 10/08/22 07:52 BP 112/72 10/08/22 07:52 Pulse Ox 95 10/08/22 07:52 O2 Del Method Room Air 10/08/22 07:52 O2 Flow Rate 1 09/25/22 11:26 BMI result Body Mass Index 20.5 Const: General: comfortable and no acute distress Resp: Effort & Inspection: normal respiratory effort GI: Other: stoma with good output, incision well healed Palpation (GI): Soft to palpation, not firm and nontender Objective Data Active Medications Acetaminophen (Acetaminophen 325 Mg Tablet) 650 mg PO Q6H PRN PRN Reason: Pain, Mild (Pain Scale 1-3) Last Admin: 10/07/22 09:42 Dose: 650 mg Documented By: ARGENTINA Bupropion HCl (Bupropion Hcl Xl 300 Mg Tab.Er.24h) 300 mg PO DAILY [facility] Last Admin: 10/07/22 09:17 Dose: 300 mg Documented By: ARGENTINA Clonidine HCl (Clonidine Hcl 0.1 Mg Tablet) 0.05 mg PO BID@0900,1500 [facility]; Protocol Last Admin: 10/07/22 14:20 Dose: 0.05 mg Documented By: MADELINE Clonidine HCl (Clonidine Hcl 0.1 Mg Tablet) 0.3 mg PO BEDTIME [facility]; Protocol Last Admin: 10/07/22 21:12 Dose: 0.3 mg Documented By: ADITHYA Famotidine (Famotidine 20 Mg Tablet) 20 mg PO BEDTIME [facility] Last Admin: 10/07/22 21:12 Dose: 20 mg Documented By: ADITHYA Gabapentin (Gabapentin 100 Mg Capsule) 100 mg PO TID [facility] Last Admin: 10/07/22 21:12 Dose: 100 mg Documented By: ADITHYA Heparin Sodium (Porcine) (Heparin Sodium,Porcine 5,000 Unit/Ml Vial) 5,000 unit SUBCUT Q8H [facility] Last Admin: 10/08/22 06:11 Dose: Not Given Documented By: ADITHYA Non-Admin Reason: Patient Refused Hydromorphone HCl (Hydromorphone Hcl 0.5 Mg/0.5 Ml Syringe) 0.5 mg IVPUSH Q3H PRN; Protocol PRN Reason: Pain, Severe (Pain Scale 7-10) Last Admin: 09/29/22 06:13 Dose: 0.5 mg Documented By: ALEKSANDERILJack Methadone HCl (Methadone Hcl 20 Mg/2 Ml Oral.Conc) 65 mg PO DAILY [facility] Last Admin: 10/07/22 09:18 Dose: 65 mg Documented By: ARGENTINA Metronidazole (Metronidazole 250 Mg Tablet) 250 mg PO TID [facility] Last Admin: 10/07/22 21:12 Dose: 250 mg Documented By: ADITHYA Nicotine (Nicotine 14 Mg Patch.Td24) 14 mg TRANSDERMA DAILY [facility] Last Admin: 10/07/22 07:14 Dose: Not Given Documented By: ARGENTINA Non-Admin Reason: Patient Refused Nicotine Polacrilex (Nicotine Polacrilex 2 Mg Gum) 4 mg BUCCAL Q2H PRN PRN Reason: Nicotine Cravings Omeprazole (Omeprazole 40 Mg Capsule.Dr) 40 mg PO DAILY@0630 [facility] Last Admin: 10/08/22 06:10 Dose: Not Given Documented By: ADITHYA Non-Admin Reason: Patient Refused Ondansetron HCl (Ondansetron Odt 4 Mg Tab.Rapdis) 4 mg TRANSLINGU Q6H PRN PRN Reason: Nausea Last Admin: 10/04/22 12:10 Dose: 4 mg Documented By: GRUPO Oxycodone HCl (Oxycodone Hcl Immed Release 5 Mg Tablet) 10 mg PO Q4H PRN PRN Reason: Pain, Moderate(Pain Scale 4-6) Last Admin: 10/07/22 22:27 Dose: 10 mg Documented By: ADITHYA Quetiapine Fumarate (Quetiapine Fumarate 50 Mg Tablet) 50 mg PO Q4H PRN PRN Reason: AH/agitation Last Admin: 10/06/22 16:08 Dose: 50 mg Documented By: HANSA Quetiapine Fumarate (Quetiapine Fumarate 100 Mg Tablet) 100 mg PO BID@0900,1500 [facility] Last Admin: 09/25/22 08:46 Dose: Not Given Documented By: COTEMA Non-Admin Reason: Patient Refused Quetiapine Fumarate (Quetiapine Fumarate 200 Mg Tablet) 200 mg PO BEDTIME [facility] Last Admin: 10/07/22 21:12 Dose: 200 mg Documented By: ADITHYA Sertraline HCl (Sertraline Hcl 50 Mg Tablet) 50 mg PO DAILY [facility] Last Admin: 10/07/22 09:17 Dose: 50 mg Documented By: ARGENTINA Sodium Chloride (0.9 % Sodium Chloride Flush 3 Ml Syringe) 3 ml IVFLUSH [facility] Last Admin: 10/08/22 00:01 Dose: Not Given Documented By: ADITHYA Non-Admin Reason: Duplicate Order Sodium Chloride (0.9 % Sodium Chloride Flush 3 Ml Syringe) 3 ml IVFLUSH [facility] Last Admin: 10/07/22 21:13 Dose: 3 ml Documented By: ADITHYA Thiamine HCl (Thiamine Hcl 100 Mg Tablet) 100 mg PO DAILY [facility] Last Admin: 10/07/22 09:17 Dose: 100 mg Documented By: ARGENTINA Trazodone HCl (Trazodone Hcl 50 Mg Tablet) 50 mg PO BEDTIME MRX1 PRN PRN Reason: Insomnia Last Admin: 09/24/22 23:51 Dose: 50 mg Documented By: LYQC Trazodone HCl (Trazodone Hcl 100 Mg Tablet) 200 mg PO BEDTIME [facility] Last Admin: 10/07/22 21:11 Dose: 200 mg Documented By: ADITHYA Labs 10/06/22 11:40 10/07/22 14:08 Labs: Laboratory Results - last 24 hr 10/07/22 14:08 Anion Gap 15 Estim Creat Clear Calc 103.9 Estimated GFR > 60 Random Glucose 167 H Calcium 9.3 D Procedures Date of Service Date of Service: 10/08/22 Progress Note: A&P Assessment and plan (1) Status post Maya procedure: Status: Acute Assessment and Plan: doing well bed in rehab available okay to discharge today discharge instructions reviewed with patient important to with GI Time Spent With Patient Time: Total time managing care of this patient today ____ minutes. Quality Stroke Does the patient have a stroke diagnosis?: No VTE Prior VTE?: No VTE Risk Level:: Medical - moderate - high VTE Device Contraindication: N/A - Device Ordered VTE Drug Contraindication: N/A - Med Ordered
--- NOTE | 2022-10-08 08:10 | PM.DS ---
DS: Providers Provider Date of Service: 10/08/22 Date of admission: 09/23/22 14:34 Date of discharge: 10/08/22 Primary care physician: Clotilde Nguyen MD Consults: gastroenterology with Dr. Rayo 09/23/22 14:37 Consult to Hospitalist Routine Comment: Consulting Provider: Hospitalist Reason For Exam: Depression, history of polysubstance abuse 09/29/22 09:44 Consult to Care Team Routine Comment: Reason for consultation: medically cleared for M3 DS: Diagnosis Discharge Diagnosis (1) Status post Maya procedure: Status: Acute (2) Colitis: Status: Acute (3) Sigmoid stricture: Status: Acute (4) Post traumatic stress disorder (PTSD): Status: Acute (5) Acute hyperkalemia: Status: Acute (6) Opioid use disorder, moderate, in sustained remission: Status: Acute DS: Summary Hospital Course Hospital Course: The patient is a 47-year-old male who was in the psych unit, and had worsening abdominal pain and distension of the proximal colon with what appeared to be a stricture in the sigmoid. He was therefore transferred to the inpatient side and he underwent hand assisted avoid resection with an end-colostomy on 09/24/2022. He tolerated procedure well. He had been managed [facility] unit since that time. His stoma has been functioning since postop day 2. He continues to oxycodone for pain. He does have a long history of polysubstance abuse. He is being followed by Dr. Sunshine of Gastroenterology because of active colitis likely from IBD. His path report showed inflammatory stricture. He had been on steroids and currently on a prednisone taper. He currently is on regular diet. He stoma has been functioning well. This psychiatrist has stated that he does not need to return to the psych unit and may be discharged on the same medications. Anticipated length of stay in [facility] is less than 30 days. Time Spent with Patient Time attestation: Total time managing care of this patient today ____ minutes. Discharge coordination time: Greater than 30 minutes Quality: Safe Use of Opioids Does Pt have an Active Cancer Diagnosis on the Problem List?: No Quality: Stroke Does the patient have a stroke diagnosis?: No Physical Exam Vital Signs: Vital Signs: Last Vital Signs Temp 97.1 F 10/08/22 07:52 Pulse 66 10/08/22 07:52 Resp 16 06/15/23 07:52 BP 112/72 10/08/22 07:52 Pulse Ox 95 10/08/22 07:52 O2 Del Method Room Air 10/08/22 07:52 O2 Flow Rate 1 09/25/22 11:26 BMI result Body Mass Index 20.5 Const: General: comfortable and no acute distress Orientation/consciousness: patient oriented x3 Neck: Neck: Yes no lymphadenopathy Resp: Effort & Inspection: normal respiratory effort Auscultation: clear to auscultation bilaterally Cardio: Rate: regular rate Rhythm: regular rhythm GI: Other: stoma functioning well, midline incision well healed Palpation (GI): Soft to palpation, not firm and no guarding Neuro: General: patient oriented x3 Extrem: General: No edema DS: Data Data Completed and Pending Completed studies during hospitalization [Text1]: Pending at discharge 09/24/22 13:47 Surgical [PTH] Stat Procedures Excision of Descending Colon, Via Natural or Artificial Opening Endoscopic, Diagnostic (01/02/21) Excision of Sigmoid Colon, Via Natural or Artificial Opening Endoscopic, Diagnostic (01/02/21) Insertion of Infusion Device into Right Brachial Vein, Percutaneous Approach (05/16/22) Insertion of Infusion Device into Superior Vena Cava, Percutaneous Approach (08/10/22) Other Electroconvulsive Therapy (05/16/22) Ultrasonography of Superior Vena Cava, Guidance (08/10/22) Labs on day of discharge: Laboratory Results - last 24 hr 10/07/22 14:08 Sodium 137 Potassium 5.1 Chloride 104 Carbon Dioxide 23 Anion Gap 15 BUN 18 H Creatinine 0.81 Estim Creat Clear Calc 103.9 Estimated GFR > 60 Random Glucose 167 H Calcium 9.3 D Discharge Plan Discharge Anticipated Discharge Date/Time: 10/08/22 08:03 Patient Disposition: Xfer Inpatient Rehab Fac Discharge Diagnosis: sigmoid obstruction secondary to inflammatory stricture Referrals: [facility] [Other] - 1 Week (Methadone clinic) [facility] [Outside] - 1 Week Clotilde Baca MD [Primary Care Provider] - 1 Week Tay Winslow MD [Physician] - 3 Weeks Joanne Rayo MD [Physician] - 1 Week Discharge Medications: New oxycodone-acetaminophen [Percocet] 5-325 mg tablet 1 tab PO Q4-6H PRN (Reason: pain) Qty: 20 0RF Rx Instructions: Partial Fill upon patient request. Continued clonazepam 0.5 mg Tablet 0.25 mg PO TID PRN (Reason: anxiety) Qty: 0 0RF Pentasa 250 mg Capsule, Extended Release 1,000 mg PO QID Qty: 0 0RF clonidine HCl 0.1 mg Tablet 0.05 mg PO BID@0900,1500 Qty: 0 0RF Protocol: Hold for SBP< HOLD for SBP < : 90 acetaminophen 325 mg Tablet 650 mg PO Q6H PRN (Reason: Pain, Mild (Pain Scale 1-3)) Qty: 0 0RF nicotine 14 mg/24 hr Patch 24 Hour 14 mg transdermal DAILY Qty: 0 0RF quetiapine 300 mg Tablet 300 mg PO BEDTIME Qty: 0 0RF trazodone 50 mg Tablet 50 mg PO BEDTIME MRX1 PRN (Reason: Insomnia) Qty: 0 0RF nicotine (polacrilex) 2 mg Gum 4 mg buccal Q2H PRN (Reason: Nicotine Cravings) Qty: 0 0RF prednisone 20 mg Tablet 30 mg PO DAILY Qty: 0 0RF Taper: Prednisone 30 mg daily for 7 Days and 0 Hour 20 mg daily for 7 Days and 0 Hour 10 mg daily for 7 Days and 0 Hour omeprazole 40 mg Capsule,Delayed Release(Dr/Ec) 40 mg PO DAILY@0630 Qty: 0 0RF quetiapine 100 mg Tablet 100 mg PO BID@0900,1500 Qty: 0 0RF clonidine HCl 0.2 mg Tablet 0.2 mg PO BEDTIME Qty: 0 0RF Protocol: Hold for SBP< HOLD for SBP < : 90 magnesium hydroxide [Milk of Magnesia] 400 mg/5 mL Suspension 30 ml PO DAILY PRN (Reason: Constipation) Qty: 0 0RF calcium carbonate [Oyster Shell Calcium 500] 500 mg calcium (1,250 mg) Tablet 500 mg PO BID Qty: 0 0RF trazodone 100 mg Tablet 200 mg PO BEDTIME Qty: 0 0RF docusate sodium 100 mg Capsule 100 mg PO BID Qty: 0 0RF methadone [Methadose] 10 mg/mL Concentrate 65 mg PO DAILY Qty: 0 0RF Rx Instructions: Partial Fill upon patient request. ondansetron 4 mg Tablet,Disintegrating 4 mg translingual Q6H PRN (Reason: Nausea) Qty: 0 0RF dicyclomine 10 mg Capsule 20 mg PO TIDAC Qty: 0 0RF simethicone [Gas Relief (simethicone)] 80 mg Tablet,Chewable 80 mg PO QIDWMHS Qty: 0 0RF oxycodone 5 mg Tablet 10 mg PO Q4H PRN (Reason: severe pain) Qty: 0 0RF Rx Instructions: Partial Fill upon patient request. sodium chloride 0.9 % (flush) [BD PosiFlush Normal Saline 0.9] Syringe 3 ml IVFLUSH QSHIFT Qty: 0 0RF cyclobenzaprine 5 mg Tablet 5 mg PO TID PRN (Reason: spasm) Qty: 0 0RF bupropion HCl 300 mg Tablet Extended Release 24 Hr 300 mg PO DAILY Qty: 0 0RF MAG-AL 200-200 mg/5 mL Suspension 30 ml PO Q6H PRN (Reason: Heartburn/Nausea) Qty: 0 0RF quetiapine 50 mg Tablet 50 mg PO Q4H PRN (Reason: AH/agitation) Qty: 0 0RF thiamine mononitrate (vit B1) 100 mg Tablet 100 mg PO DAILY Qty: 0 0RF famotidine 20 mg Tablet 20 mg PO BEDTIME Qty: 0 0RF gabapentin 300 mg Capsule 300 mg PO TID Qty: 0 0RF Diet: Advance to usual diet Activity on Discharge: No heavy lifting Stand Alone Forms: Patient Portal Discharge page Activity Restrictions/Additional Instructions: no lifting more than [address] Rayo of Gastroenterology for ffup for colitis If the incision area is tender, you may apply an ice pack for short intervals (No more than 20 minutes on, followed by at least 20 minutes off). Do not apply heat. Do not use creams, lotions, or topical antibiotics unless instructed to do so by your surgeon. These can cause infection or allergic reaction. No lifting more than 20 lbs Okay to shower after 24 hours No strenuous activities Call the office for follow-up in 2 weeks - with Dr. Winslow Call Your Doctor If: -Your temperature exceeds 101.5? F -You experience excessive pain or swelling -You have an unexpected reaction to medication -You have excessive bleeding -You experience continued vomiting/nausea -Your incision begins to separate -Your incision shows signs of infection such as increased redness, swelling, excessive pain, drainage (light blood or clear fluid is normal) or heat Care Plan Goals: control colitis stoma care Health Concerns: colitis hx of polysubstance abuse depression Plan of Treatment: Rehab facility Assessment: doing well postop
[2022-10-08] MEDS: cloNIDine HCL 0.1 MG TABLET 0.05 MG PO (08:59)
[2022-10-08] MEDS: 0.9 % Sodium Chloride Flush 3 ML SYRINGE IVFLUSH (08:59)
[2022-10-08] MEDS: Thiamine HCL 100 MG TABLET PO (09:00)
[2022-10-08] MEDS: metroNIDAZOLE 250 MG TABLET PO (09:00)
[2022-10-08] MEDS: predniSONE 20 MG TABLET 60 MG PO (09:00)
[2022-10-08] MEDS: Gabapentin 100 MG CAPSULE PO (09:00)
[2022-10-08] MEDS: buPROPion HCl XL 300 MG TAB.ER.24H PO (09:01)
[2022-10-08] MEDS: methADONE HCl 20 MG/2 ML ORAL.CONC 65 MG PO (09:01)
[2022-10-08] MEDS: Sertraline HCL 50 MG TABLET PO (09:01)
[2022-10-08] MEDS: oxyCODONE HCl Immed Release 5 MG TABLET 10 MG PO (09:09)
--- NOTE | 2022-10-08 09:45 | MHC.CM.PN ---
Addendum entered by Courtney Ochoa 10/08/22 12:39: Per Dr Rubio's office staff, They have not received approval from for infusion therapy. The office contact info was sent to the facility. The office was instructed to contact the [place] worker at [facility] to set up transport once the infusions are approved and the start date and schedule are known. Original Note: Patient is discharged to [facility] today. All dc info has been sent to the facility. The last dose letter was faxed to [facility] and [facility]. Transportation has been booked. service center supervisor time is 12:30pm. Dr Girma Crawford's office is in the process of getting out patient infusions approved. [facility] has been notified that information re [facility] infusions will be provided once received.
--- NOTE | 2022-10-08 13:17 | PC.NURSE ---
This Nurse called [facility] [place] for report with no answer.
== END 2022-10-08 12:34 | DRG 231 ==
PROVIDERS: Internal Medicine; Physician Assistant Surgical; Student in an Organized Health Care Education/Training Program; Admitting Provider Surgery; PCP Internal Medicine; Visit Provider Surgery
PROC: 0DBN0ZZ Excision of Sigmoid Colon, Open Approach (ICD-10-PCS; principal; 2022-09-24 11:30)
DX: K50.812 Crohn's disease of both small and large intestine with intestinal obstruction (principal); E44.0 Moderate protein-calorie malnutrition; F33.2 Major depressive disorder, recurrent severe without psychotic features; N17.9 Acute kidney failure, unspecified; R45.851 Suicidal ideations; I11.9 Hypertensive heart disease without heart failure; F11.20 Opioid dependence, uncomplicated; K66.0 Peritoneal adhesions (postprocedural) (postinfection); F43.10 Post-traumatic stress disorder, unspecified; F19.10 Other psychoactive substance abuse, uncomplicated; Z87.891 Personal history of nicotine dependence; Z68.20 Body mass index [BMI] 20.0-20.9, adult; Z79.52 Long term (current) use of systemic steroids; Z79.899 Other long term (current) drug therapy
CPT/HCPCS: 36415; 71045; 80048; 82040; 82657; 83735; 84100; 84155; 84478; 85027; 86850; 86900; 86901; 88307; 88329; C1758; J0131; J1100; J1170; J1643; J2250; J2270; J2370; J2405; J2930; J3010; S9485

== ENCOUNTER → 2022-10-28 14:01 | Outpatient (BNVA) | payer OTHER, SELFPAY | PROVIDERS: PCP Internal Medicine; Referring Provider Internal Medicine; Visit Provider Surgery ==

== ENCOUNTER 2022-11-13 13:28 | Outpatient (AMB) | payer MEDICAID, SELFPAY ==
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
[2022-11-13 13:39] VITALS: BP 111/77; PULSE 95; BMI 19.5
== END 2022-11-13 14:20 | disposition home or self-care (01) ==
PROVIDERS: PCP Internal Medicine; Visit Provider Internal Medicine
DX: K52.9 Noninfective gastroenteritis and colitis, unspecified (principal); K50.90 Crohn's disease, unspecified, without complications; Z93.3 Colostomy status
CPT/HCPCS: 99214

== ENCOUNTER → 2022-11-13 13:28 | Outpatient (BNVA) | payer MEDICAID, SELFPAY | PROVIDERS: PCP Internal Medicine; Visit Provider Internal Medicine | DX: K52.9 Noninfective gastroenteritis and colitis, unspecified (principal); K50.90 Crohn's disease, unspecified, without complications; Z93.3 Colostomy status | CPT/HCPCS: 99212 ==

== ENCOUNTER 2022-12-11 12:32 | Outpatient (AMB) | payer MEDICAID, SELFPAY ==
[2022-12-11 12:45] VITALS: BP 142/103; PULSE 89; BMI 20.6
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
[2022-12-11 12:54] VITALS: BP 144/107
== END 2022-12-11 13:25 | disposition home or self-care (01) ==
PROVIDERS: PCP Internal Medicine; Visit Provider Internal Medicine
DX: K50.90 Crohn's disease, unspecified, without complications (principal); Z93.3 Colostomy status
CPT/HCPCS: 99214

== ENCOUNTER → 2022-12-11 12:32 | Outpatient (BNVA) | payer MEDICAID, SELFPAY | PROVIDERS: PCP Internal Medicine; Visit Provider Internal Medicine | DX: K52.9 Noninfective gastroenteritis and colitis, unspecified (principal); K50.90 Crohn's disease, unspecified, without complications; Z93.3 Colostomy status | CPT/HCPCS: 99212 ==

== ENCOUNTER 2022-12-25 10:04 | Outpatient (REF) | payer MEDICAID, SELFPAY | END 2022-12-25 10:05 | disposition home or self-care (01) | LOC: HO.MDS 10:04 | PROVIDERS: Visit Provider Internal Medicine | DX: K50.90 Crohn's disease, unspecified, without complications (principal) | CPT/HCPCS: 96365; 96366; J1745 ==

== ENCOUNTER 2023-01-06 13:59 | Outpatient (AMB) | payer MEDICAID, SELFPAY ==
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
[2023-01-06 14:16] VITALS: BP 121/82; PULSE 94; BMI 23.3
== END 2023-01-06 14:22 | disposition home or self-care (01) ==
PROVIDERS: PCP Internal Medicine; Visit Provider Surgery
DX: Z93.3 Colostomy status (principal)
CPT/HCPCS: 99213

== ENCOUNTER → 2023-01-06 13:59 | Outpatient (BNVA) | payer MEDICAID, SELFPAY | PROVIDERS: PCP Internal Medicine; Visit Provider Surgery | DX: R10.9 Unspecified abdominal pain (principal); Z93.3 Colostomy status; Z93.2 Ileostomy status | CPT/HCPCS: 99212 ==

== ENCOUNTER 2023-01-08 10:19 | Outpatient (REF) | payer MEDICAID, SELFPAY | END 2023-01-08 10:20 | disposition home or self-care (01) | LOC: HO.MDS 10:19 | PROVIDERS: Visit Provider Internal Medicine | DX: K50.90 Crohn's disease, unspecified, without complications (principal) | CPT/HCPCS: 96365; 96366; J1745 ==

== ENCOUNTER 2023-01-22 11:00 | Outpatient (AMB) | payer MEDICAID, SELFPAY ==
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
[2023-01-22 12:25] VITALS: BP 142/97; PULSE 90; BMI 24.1
== END 2023-01-22 13:22 | disposition home or self-care (01) ==
PROVIDERS: PCP Internal Medicine; Visit Provider Internal Medicine
DX: K52.9 Noninfective gastroenteritis and colitis, unspecified (principal); K50.90 Crohn's disease, unspecified, without complications; Z93.3 Colostomy status
CPT/HCPCS: 99214

== ENCOUNTER → 2023-01-22 11:00 | Outpatient (BNVA) | payer MEDICAID, SELFPAY | PROVIDERS: PCP Internal Medicine; Visit Provider Internal Medicine | DX: K52.9 Noninfective gastroenteritis and colitis, unspecified (principal); K50.90 Crohn's disease, unspecified, without complications; Z93.3 Colostomy status | CPT/HCPCS: 99212 ==

== ENCOUNTER 2023-10-07 13:30 | Emergency (ER) | payer MEDICAID, SELFPAY ==
[2023-10-07 13:37] VITALS: BP 125/81; PULSE 110; O2SAT 98
--- NOTE | 2023-10-07 13:40 | ECG_ITS ---
Test Reason : CHEST PAIN Blood Pressure : / mmHG Vent. Rate : 107 BPM Atrial Rate : 107 BPM P-R Int : 142 ms QRS Dur : 094 ms QT Int : 336 ms P-R-T Axes : 059 054 031 degrees QTc Int : 448 ms Sinus tachycardia Otherwise normal ECG When compared with ECG of 18-SEP-2022 13:51, Vent. rate has increased BY 41 BPM Referred By: Maria Esther Stubbs Electronically Signed By:FERMÍN SANTACRUZ
[2023-10-07 13:41] VITALS: BP 146/94; PULSE 108; RESP 18; TEMP 36.5; O2SAT 95; BMI 25.7
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
--- OUTSIDE RECORDS SUMMARY | 2023-10-07 14:09 | XMS_ITS | Continuity of Care Document ---
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 once he goes out and will overdose on heroin.??Patient is medically cleared.?psychiatrist decided about??admitting the patient voluntarily??for psych management.??Patient is feeling safe while in the hospital??on the??if he goes out??as he is homeless is planning on overdosing on heroin.??Patient can leave AMA??as this is a??voluntary admission to psychiatry.??No need for constant Co. while in the hospital. ?09/20 ?? Psychiatry reevaluated revised recommendation as follows: ?? Disposition Recommendations: ?? 1. The patient would like to pursue medical respite. I agree with this choice. ?? 2. If the patient cannot obtain a medical respite bed, we would be happy to pursue voluntary psych admission for depression and anxiety. ?? 3. No need for sitter for SI given patient reports feeling safe in the hospital and denies any thoughts or plans to harm himself while in hospital. has not tried to harm himself while here. ? 4. pt is able to sign out AMA if he chooses to do so.? 5. Continue all medications as ordered.? SW were not able to arrange Medical Respite ?? Patient initially wanted to be discharged (he is homeless) ?? Then changed mind and now telling that if he goes to the park, he may get Suicidal again and wants to go for Voluntary inpatient psyche unit ?? Psychiatry arranged to transfer him to [facility] ?? He is being discharged and transferred to [facility] ?? Plan: ?? Will inform psychiatry??regarding voluntary psyche admission ? Plan: Cont mirtazapine, clonazepam, chlorpromazine ?? Rhabdomyolysis (M62.82):??Rseolved ? Acute kidney injury (N17.9):??Resolved ? Recently diagnosed DVT: ?? Rivaroxaban changed to heparin gtt due to BERNARD but patient refusing PTT draws ?? Switched to Lovenox therapeutic dose. ?? Switched back to??rivaroxaban? Will continue rivaroxaban ? Crohn's disease:??Stable Has ileostomy pouch. Continue mesalamine. PRN loperamide for loose stools, recently changed to liquid formulation for better absorption with good results ? Wound care: Location: left lower abdomen Etiology: non-healing surgical wound (previous colostomy site) Consulted wound care and recommendation as follows: ?? For ileostomy: ?? 1.) Remove ostomy pouch gently. Cleanse the peristoma (skin around the stoma) area with WATER only.Dry skin or allow to dry. 2.) Use the pouch template left at the nurses station to cut to fit pouch. 3.) Apply Stomahesive powder and No-sting skin prep spray. Allow to dry completely (you will see crusting when it is dry) 4.) Snuggly wrap the Maria Fernanda ring around the stoma. (see photo above: Maria Fernanda Ring and Brava strip paste) 5.) Apply Brava strip paste at 9 and 3'clock (see photo above: Maria Fernanda Ring and Brava strip paste) 5.) Take the backing of the pouch off and apply the pouch over the stoma. 6.) Apply two Brava Strips on both sides of the pouch wafer (half on the wafer and the skin; pleasesee photo above) ? For LLQ abd wound ?? Recommendations: ?? 1. LLQ wound- Apply Vashe moistened gauze to wound bed. Leave in place x 10 minutes. Remove gauze and pat wound bed dry. Apply nickel thick layer of Iodosorb gel to wound bed. Cover with dry gauze and secure with tape. Change every 3 days and as needed for saturation. 2.Continue to provide optimal nutritional support ? VTE Prophylaxis:??xarelto ? Tobacco Use Treatment:??He says he does not smoke and does not need anything ? Code status: presumed full code ? 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 ? Diagnoses Acute kidney injury??(N17.9) Depression??(F32.A) Rhabdomyolysis??(M62.82) Suicidal ideation??(R45.851) 1.??Major depressive disorder, recurrent episode, severe, with psychotic behavior??(F33.3) 2.??Polysubstance abuse??(F19.10) 3.??Hypertension??(I10) 4.??BPH without obstruction/lower urinary tract symptoms??(N40.0) ? Suicidal ideation (R45.851) ?Grouped with??Depression (F32.A),??Major depressive disorder, recurrent episode, severe,with psychotic behavior (F33.3),??Polysubstance abuse (F19.10) ?Admitted for suicidal ideation and major depressive disorder with psychotic features recently, discharged yesterday.??[place] suicidal after discharge and snorted a large amount of cocaine, had a plan to inject heroin to end his life Cont mirtazapine, clonazepam, chlorpromazine Seen by psych and cleared him, no 1:1 or inpatient admission recommendation.? 09/17:??Patient yesterday was cleared by psych??and 1 is to 1 and SI precautions were lifted.??In the afternoon??he disclosed to nursing that he is feeling suicidal again, psych was reconsulted and??precautions were placed back.??Will possibly need voluntary psych admission once cleared medically. Not cleared yet Generally and examined??and Medically cleared today, Rhabdomyolysis/CPK improved significantly, no more BERNARD.??still telling me that he will end his lift once he goes out and will overdose on heroin.??Patient is medically cleared.?psychiatrist decided about??admitting the patient voluntarily??for psych management.??Patient is feeling safe while in the hospital??on the??if he goes out??as he is homeless is planning on overdosing on heroin.??Patient can leave AMA??as this is a??voluntary admission to psychiatry.??No need for constant Co. while in the hospital. ?09/20 Psychiatry reevaluated revised recommendation as follows: Disposition Recommendations: 1. The patient would like to pursue medical respite. I agree with this choice. 2. If the patient cannot obtain a medical respite bed, we would be happy to pursue voluntary psych admission for depression and anxiety. 3. No need for sitter for SI given patient reports feeling safe in the hospital and denies any thoughts or plans to harm himself while in hospital. has not tried to harm himself while here. ?? 4. pt is able to sign out AMA if he chooses to do so.?? 5. Continue all medications as ordered.? SW were not able to arrange Medical Respite ?? Patiet initially wanted to be discharged (he is homeless) Then changed mind and now telling that if he goes to the park, he may get SO again and wants to go for Voluntary inpatient psyche unit ?? Plan: Will inform psychaitry??regarding voluntary psyche admission ? Rhabdomyolysis (M62.82):??normalized ?? Acute kidney injury (N17.9):??Resolved ? Recently diagnosed DVT: Rivaroxaban changed to heparin gtt due to BERNARD but patient refusing PTT draws Switched to Lovenox therapeutic dose. Switched back to??rivaroxaban? Crohn's disease:??Cont mesalamine. Has ileostomy pouch. PRN loperamide for loose stools, recently changed to liquid formulation for better absorption with good results ?? VTE Prophylaxis:??xarelto ?? Tobacco Use Treatment:??Cessation Medication Ordered ?? Code status: presumed full code ? Discharge Planning: wants??voluntary psyche admission ? Discharge Planning:? Vital Signs?? Temperature: 97.9 DegF (09/23/23 21:04:00) Temperature Route: Oral (09/23/23 21:04:00) Pulse Rate: 85 bpm (09/23/23 21:04:00) Respiratory Rate: 18 br/min (09/24/23 09:03:00) Systolic Blood Pressure: 115 mm Hg (09/23/23 21:04:00) Diastolic Blood Pressure:??85 mm Hg??High (09/23/23 21:04:00) Blood pressure sites: Arm, left (09/23/23 21:04:00) Mean Arterial Pressure: 95 mm Hg (09/23/23 21:04:00) Pulse Pressure: 30 mm Hg (09/23/23 21:04:00) Oxygen Saturation: 96 % (09/23/23 21:04:00) Mode of Delivery (Oxygen): Room air (09/23/23 21:04:00) Early Warning Score: 2 (09/24/23 09:06:16) ? . Physical Exam Pending Results Add On Lab Order ordered on 09/15/2023 Add On Lab Order ordered on 09/16/2023 Basic Metabolic Panel ordered on 09/17/2023 CBC ordered on 09/15/2023 CPK Total Only ordered on 09/17/2023 CPK Total Only ordered on 09/18/2023 Magnesium Level ordered on 09/17/2023 Phosphorus Level ordered on 09/17/2023 Follow-Up Appointments Added Follow Up ?Time Frame ?Comments Not on Staff, PCP?pl find a PCP after d/c from [facility] Home Health Face to Face ^HomeHealth[facility]F Results Discharge Labs BLOOD COUNT & DIFF WBC 5.5 k/mm3 ()?? 09/22/2023 09:20 RBC 5.56 m/mm3 ()?? 09/22/2023 09:20 Hgb 14.6 Gm/dL ()?? 09/22/2023 09:20 Hct 45.6 % ()?? 09/22/2023 09:20 MCV 82.0 femtoliters ()?? 09/22/2023 09:20 MCH 26.3 pg (Low)?? 09/22/2023 09:20 MCHC 32.0 g/dL (Low)?? 09/22/2023 09:20 Platelet Count 274 k/mm3 ()?? 09/22/2023 09:20 RDW-SD 46.5 femtoliters ()?? 09/22/2023 09:20 MPV 9.3 femtoliters (Low)?? 09/22/2023 09:20 Nucleated RBC (Automated) 0.0 #/100 WBC'S ()?? 09/22/2023 09:20 Abs. NRBC 0.0 k/mm3 ()?? 09/22/2023 09:20 Abs. Neut 6.4 k/mm3 ()?? 09/15/2023 09:44 Abs. Lymph 1.4 k/mm3 ()?? 09/15/2023 09:44 Abs. [place] 1.2 k/mm3 ()?? 09/15/2023 09:44 Abs. Eo 0.0 k/mm3 ()?? 09/15/2023 09:44 Abs. Baso 0.0 k/mm3 ()?? 09/15/2023 09:44 Neut % 70.4 % ()?? 09/15/2023 09:44 Lymph % 15.1 % ()?? 09/15/2023 09:44 [place] % 13.3 % (High)?? 09/15/2023 09:44 Eos % 0.4 % ()?? 09/15/2023 09:44 Baso % 0.4 % ()?? 09/15/2023 09:44 Imm Gran 0.4 % ()?? 09/15/2023 09:44 Abs. Imm Gran 0.0 k/mm3 ()?? 09/15/2023 09:44 ?? CARDIAC CK, Total 120 units/L ()?? 09/22/2023 09:20 ? CHEM GENERAL Sodium 143 mmol/L ()?? 09/16/2023 09:11 Potassium 4.1 mmol/L ()?? 09/16/2023 09:11 Chloride 112 mmol/L (High)?? 09/16/2023 09:11 Bicarbonate Level 19 mmol/L (Low)?? 09/16/2023 09:11 Anion Gap 12 ()?? 09/16/2023 09:11 Glucose Level 102 mg/dL (High)?? 09/15/2023 09:44 BUN 18 mg/dL ()?? 09/16/2023 09:11 Creatinine-Blood 1.04 mg/dL ()?? 09/16/2023 09:11 Estimated GFR Creatinine 87 ML/MIN/1.73 M2 ()?? 09/16/2023 09:11 Calcium 9.5 mg/dL ()?? 09/15/2023 09:44 ?? COAG APTT 29.1 seconds ()?? 09/19/2023 11:21 ? ENDOCRINE/TUMOR MARKER TSH 0.55 uIU/mL ()?? 09/15/2023 09:44 ? HEME OTHER Hold Lavender Top SPECIMEN DISCARDED AFTER 24 HOURS. ()?? 09/15/2023 18:41 ? TOXICOLOGY/TDM Ethanol, Serum or Plasma NONE DETECTED mg/dL ()?? 09/15/2023 09:44 Barbiturate Screen, Urine NONE DETECTED ()?? 09/15/2023 11:49 Cannabinoid Screen, Urine NONE DETECTED ()?? 09/15/2023 11:49 Cocaine Metabolite Screen, Urine POSITIVE (Abnormal)?? 09/15/2023 11:49 Benzodiazepine Screen, Urine POSITIVE (Abnormal)?? 09/15/2023 11:49 Amphetamine Screen, Urine NONE DETECTED ()?? 09/15/2023 11:49 Opiate Screen, Urine NONE DETECTED ()?? 09/15/2023 11:49 ? UA/URINALYSIS Appear/Color, Urine YELLOW ()?? 09/15/2023 11:49 Specific [place], Urine 1.023 ()?? 09/15/2023 11:49 pH, Urine 5.5 ()?? 09/15/2023 11:49 Albumin, Urine 1+ (Abnormal)?? 09/15/2023 11:49 Glucose, Urine NEGATIVE ()?? 09/15/2023 11:49 Ketones, Urine TRACE (Abnormal)?? 09/15/2023 11:49 Bilirubin, Urine NEGATIVE ()?? 09/15/2023 11:49 Hemoglobin, Urine 2+ (Abnormal)?? 09/15/2023 11:49 Nitrite, Urine NEGATIVE ()?? 09/15/2023 11:49 Leukocyte, Urine NEGATIVE ()?? 09/15/2023 11:49 Urobilinogen NORMAL mg/dL ()?? 09/15/2023 11:49 WBC's, Urine 6 /HPF (High)?? 09/15/2023 11:49 RBC's, Urine 2 /HPF ()?? 09/15/2023 11:49 Bacteria MODERATE HPF (Abnormal)?? 09/15/2023 11:49 Squamous Epith 1 /HPF ()?? 09/15/2023 11:49 Hyaline Cast 8 LPF (High)?? 09/15/2023 11:49 Mucus MODERATE /LPF ()?? 09/15/2023 11:49 Hold Urine Culture Testing available 48 hours from time of collection. ()?? 09/15/2023 11:49 ?? URINE OTHER Est Creatinine Clearance 90.13 mL/min ()?? 09/16/2023 10:22 ? 35 minutes spent on discharge Patient Care team information Care Team Personnel Name: Marques Mullen RN Position: [facility] RN Member Role: Primary Care Nurse Name: Sylvia Culver RN Position: [facility] RN Supv Member Role: Primary Care Nurse Name: Elie Garner Position: [facility] RN Member Role: Primary Care Nurse Name: Maria Esther Fair RN Position: [facility] SN RN Member Role: Primary Care Nurse Name: Denia Browne RN Position: [facility] RN Member Role: Primary Care Nurse Name: Carline Quintana RN Position: [facility] RN Member Role: Primary Care Nurse Name: Marilyn Manuel RN Position: S RN Member Role: Primary Care Nurse Name: Jyoti Doss RN Position: [facility] RN Member Role: Primary Care Nurse Name: Farhat Toledo RN Position: [facility] RN Member Role: Primary Care Nurse Name: Nadege Boykin RN Position: [facility] RN Member Role: Primary Care Nurse Name: Myra Sorensen RN Position: S RN Member Role: Primary Care Nurse Name: Edgardo Nolasco RN Position: S RN Member Role: Primary Care Nurse Name: Marilyn Mcclain RN Position: [facility] RN Member Role: Primary Care Nurse Name: Katina Francisco RN Position: [facility] ED RN W/OE and Tasks Member Role: Primary Care Nurse Name: Ana Traore RN Position: [facility] RN Member Role: Primary Care Nurse Name: Guille Gar RN Position: [facility] RN Member Role: Primary Care Nurse Name: Brandy Bronson RN Position: [facility] RN Member Role: Primary Care Nurse Name: Cornelia Marquez RN Position: [facility] RN Member Role: Primary Care Nurse Name: Raleigh Jackson RN Position: [facility] RN Member Role: Primary Care Nurse Name: Suzie Mullins RN Position: [facility] RN Member Role: Primary Care Nurse Name: Som Haji RN Position: [facility] RN Member Role: Primary Care Nurse Name: Melva Aguirre Position: [facility] RN Member Role: Primary Care Nurse Name: Not on Staff, PCP Position: [facility] Physician (General Medicine) Member Role: PCP Name: Jesusita Tatum RN Position: [facility] RN Member Role: Primary Care Nurse Name: Kathie Bennett RN Position: [facility] RN Member Role: Primary Care Nurse Name: Ani Malhotra RN Position: [facility] RN Member Role: Primary Care Nurse Name: Мария Pascual RN Position: [facility] [employer] Member Role: Primary Care Nurse Name: Yandel Beatty RN Position: [facility] RN Member Role: Primary Care Nurse Name: Falguni Allen RN Position: [facility] RN Member Role: Primary Care Nurse Name: Kusum Villa RN Position: [facility] [employer] Office Staff Member Role: Primary Care Nurse Name: Cecil Cho RN Position: [facility] RN Member Role: Primary Care Nurse Name: Kamron Arguello RN Position: [facility] RN Member Role: Primary Care Nurse Name: Sharif Umana RN Position: [facility] RN Member Role: Primary Care Nurse Name: Tien Oleary RN Position: [facility] RN Member Role: Primary Care Nurse Name: Chi Moses RN Position: [facility] RN Member Role: Primary Care Nurse Name: Elvira Mendoza RN Position: [facility] RN Member Role: Primary Care Nurse Name: Vicente Fowler RN Position: [facility] RN Member Role: Primary Care Nurse Care Team Related Persons Name: PARISH ALEMAN Address: [place] [address]
[2023-10-07 14:13] LABS: Basophils Absolute Auto 0.1 X10*3/uL (0.0-0.2); Basophils Percent Auto 0.4 % (0-2); Hematocrit 41.3 % (42.0-52.0); Hemoglobin 13.9 g/dl (14.0-18.0); Imm Gran Abs Auto 0.07 X10*3/uL (0.00-0.03); Imm Gran Pct Auto 0.6 % (0.0-0.4); Lymphocytes Absolute Auto 0.4 X10*3/uL (1.2-4.9); Lymphocytes Percent Auto 3.7 % (20-40); MANUAL DIFF FLAG SCAN; Mean Corpuscular HGB Conc 33.7 g/dl (31.0-36.0); Mean Corpuscular Hemoglobin 27.1 pg (27.0-33.0); Mean Corpuscular Volume 80.7 fL (80.0-98.0); Mean Platelet Volume 9.6 fL (9.4-12.4); Monocytes Absolute Auto 0.3 X10*3/uL (0.1-1.2); Neutrophils Absolute Auto 10.3 x10*3/uL (2.0-8.3); Neutrophils Percent Auto 92.3 % (45-73); Platelet Count 280 X10*3/uL (160-400); Red Blood Count 5.12 X10*6/uL (4.60-5.80); Red Cell Distribution Width 16.5 % (11.0-16.0); SCAN SMEAR FLAG 1; White Blood Count 11.2 X10*3/uL (4.8-10.8)
[2023-10-07 14:29] LABS: Ethanol < 10 mg/dL
[2023-10-07 14:33] LABS: Alanine Aminotransferase 127 U/L (0-40); Albumin Level 4.9 g/dL (3.5-5.0); Alkaline Phosphatase 105 U/L (39-117); Anion Gap 16 (12-20); Aspartate Amino Transferase 337 U/L (5-37); Bilirubin Direct 0.3 mg/dL (0.0-0.5); Bilirubin Total 0.7 mg/dL (0.0-1.0); Blood Urea Nitrogen 63 mg/dL (9-16); Calcium 9.9 mg/dL (8.4-10.2); Carbon Dioxide 21 mmol/L (22-29); Chloride 105 mmol/L (96-108); Creatinine Clr Calc Pharmacy 34.8; Estimated Glomerular Filt Rate 25; Glucose Random 108 mg/dL (60-115); Lipase 42 U/L (8-78); Magnesium 2.5 mg/dL (1.6-2.6); Potassium 4.6 mmol/L (3.3-5.1); Sodium 137 mmol/L (135-145); Total Protein 9.3 g/dL (6.5-8.0)
[2023-10-07 14:37] LABS: Troponin-I High Sensitivity 6.2 ng/L (<3.5-35.0)
[2023-10-07 15:12] LABS: SLIDE REVIEW VERIFIED
[2023-10-07 15:14] LABS: Influenza A PCR NEGATIVE (Negative); Influenza B PCR NEGATIVE (Negative); Resp Syncy Virus RNA Qual PCR NEGATIVE (Negative); SARS COV2 PCR INHOUSE NEGATIVE (Negative)
[2023-10-07 20:22] VITALS: BP 144/88; PULSE 94; RESP 17; TEMP 36.7; O2SAT 97
[2023-10-07] MEDS: 0.9 % Sodium Chloride 1,000 ML 999 ML IV ×2 (21:19→21:40)
[2023-10-07 22:24] VITALS: BP 110/69; PULSE 76; RESP 17; TEMP 37.2; O2SAT 97
[2023-10-08 00:08] VITALS: BP 113/73; PULSE 67; RESP 15; TEMP 36.6; O2SAT 94
[2023-10-08 00:33] LABS: Anion Gap 12 (12-20); Blood Urea Nitrogen 48 mg/dL (9-16); Calcium 8.3 mg/dL (8.4-10.2); Carbon Dioxide 23 mmol/L (22-29); Chloride 109 mmol/L (96-108); Creatinine Clr Calc Pharmacy 60.7; Estimated Glomerular Filt Rate 48; Glucose Random 108 mg/dL (60-115); Potassium 3.5 mmol/L (3.3-5.1); Sodium 140 mmol/L (135-145)
[2023-10-08 06:20] VITALS: BP 113/73; PULSE 67; RESP 15; TEMP 36.6; O2SAT 94
== END 2023-10-08 06:21 | disposition home or self-care (01) ==
PROVIDERS: Physician Assistant Medical; Emergency Provider Internal Medicine; PCP Internal Medicine
DX: N17.9 Acute kidney failure, unspecified (principal); F14.10 Cocaine abuse, uncomplicated; I10 Essential (primary) hypertension; Z43.3 Encounter for attention to colostomy; Z87.19 Personal history of other diseases of the digestive system
CPT/HCPCS: 0241U; 36415; 80048; 80076; 80307; 83690; 83735; 84484; 85025; 93005; 96360; 99284; 99285

== ENCOUNTER → 2023-10-07 13:40 | Outpatient (BNV) | payer MEDICAID, SELFPAY | PROVIDERS: Emergency Provider Internal Medicine; PCP Internal Medicine; Visit Provider Internal Medicine | DX: R07.9 Chest pain, unspecified (principal); R00.0 Tachycardia, unspecified | CPT/HCPCS: 93010 ==

== ENCOUNTER 2023-10-09 09:57 | Inpatient (IN) | payer MEDICAID, SELFPAY ==
--- NOTE | 2023-10-09 | ECG_ITS ---
Test Reason : OD Blood Pressure : / mmHG Vent. Rate : 085 BPM Atrial Rate : 085 BPM P-R Int : 164 ms QRS Dur : 100 ms QT Int : 404 ms P-R-T Axes : 034 003 022 degrees QTc Int : 480 ms Normal sinus rhythm Minimal voltage criteria for LVH, may be normal variant ( R in aVL ) Prolonged QT Abnormal ECG When compared with ECG of 07-OCT-2023 13:49, T wave inversion now evident in Anterior leads Referred By: Generic ED Physician Electronically Signed By:FERMÍN SANTACRUZ
[2023-10-09 10:12] VITALS: BP 133/86; BP 136/88; PULSE 89; PULSE 99; RESP 18; TEMP 37.2; O2SAT 96; BMI 30.3
[2023-10-09 11:03] LABS: MANUAL DIFF FLAG NO
[2023-10-09 11:05] LABS: Basophils Percent Auto 0.4 % (0-2); Eosinophils Percent Auto 0.3 % (0-4); Hematocrit 34.9 % (42.0-52.0); Hemoglobin 11.8 g/dl (14.0-18.0); Imm Gran Abs Auto 0.03 X10*3/uL (0.00-0.03); Imm Gran Pct Auto 0.4 % (0.0-0.4); Lymphocytes Absolute Auto 0.8 X10*3/uL (1.2-4.9); Lymphocytes Percent Auto 10.4 % (20-40); Mean Corpuscular HGB Conc 33.8 g/dl (31.0-36.0); Mean Corpuscular Hemoglobin 27.1 pg (27.0-33.0); Mean Platelet Volume 9.4 fL (9.4-12.4); Monocytes Absolute Auto 0.9 X10*3/uL (0.1-1.2); Monocytes Percent Auto 10.9 % (2-11); Neutrophils Absolute Auto 6.2 x10*3/uL (2.0-8.3); Neutrophils Percent Auto 77.6 % (45-73); Platelet Count 227 X10*3/uL (160-400); Red Blood Count 4.36 X10*6/uL (4.60-5.80); Red Cell Distribution Width 16.7 % (11.0-16.0); White Blood Count 7.9 X10*3/uL (4.8-10.8)
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
[2023-10-09 11:22] LABS: Acetaminophen LAB < 3 mcg/mL (<30); Salicylate < 5.0 mg/dL (15-30)
[2023-10-09 11:26] LABS: Alanine Aminotransferase 104 U/L (0-40); Albumin Level 4.3 g/dL (3.5-5.0); Alkaline Phosphatase 83 U/L (39-117); Anion Gap 17 (12-20); Aspartate Amino Transferase 170 U/L (5-37); Blood Urea Nitrogen 40 mg/dL (9-16); Carbon Dioxide 20 mmol/L (22-29); Chloride 109 mmol/L (96-108); Creatinine Clr Calc Pharmacy 66.4; Estimated Glomerular Filt Rate 55; Glucose Random 138 mg/dL (60-115); Potassium 3.7 mmol/L (3.3-5.1); Sodium 142 mmol/L (135-145); Total Protein 7.8 g/dL (6.5-8.0)
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
[2023-10-09] MEDS: 0.9 % Sodium Chloride 1,000 ML 999 ML IV ×2 (12:32)
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
[2023-10-09 13:05] VITALS: PULSE 69
[2023-10-09 13:26] VITALS: BP 113/71; PULSE 61; RESP 15; TEMP 36.7; O2SAT 97
--- NOTE | 2023-10-09 13:55 | PHA.MEDREC ---
Addendum entered by Stephie Campos RPh 10/09/23 14:03: PT IS ON CLONAZEPAM BID NEIDA AND LORAZEPAM PRN CONFIRMED WITH [facility] Original Note: Pharmacy Consult ? Medication Reconciliation Pharmacy has completed the medication reconciliation. Patient recently discharged from [facility] on 10/04/23. Called [facility] over there to confirm discharge meds.
--- NOTE | 2023-10-09 15:13 | PC.NURSE ---
This RN changed ostomy appliance, d/t it leaking from the bottom of the appliance. Stoma looks red, intact, green stool noted from stoma, bubbles coming from sides of stoma, provider aware, wound care consult placed. Phleb at bedside currently drawing labs/cultures
[2023-10-09 16:14] LABS: Appearance Urine Cloudy; Color Urine Yellow; Glucose Urine UA Negative (Negative); Leukocyte Esterase Urine Negative (Negative); Nitrite Urine Negative (Negative); PH 5.5 (5.0-9.0); UMIC TRIGGER UACC YES; Urine Blood Small (1+) (Negative); Urine Ketones Trace mg/dL (Negative); Urine Protein 30 (1+) mg/dL (Neg-Trace)
[2023-10-09 16:24] LABS: Amphetamine Screen Urine Not Detected (Not Detect); Barbiturates, Urine Not Detected (Not Detect); Benzodiazepines Screen Urine Not Detected (Not Detect); Buprenorphine Scr Not Detected (Not Detect); Cannabinoid Screen Urine POSITIVE (Not Detect); Cocaine Screen Urine POSITIVE (Not Detect); Fentanyl, urine POSITIVE (Not Detect); Methadone Screen, Urine Not Detected (Not Detect); Opiate Screen Urine POSITIVE (Not Detect); Oxycodone Screen Urine Not Detected (Not Detect); Phencyclidine Screen Urine Not Detected (Not Detect)
[2023-10-09] MEDS: 0.9 % Sodium Chloride Flush 3 ML SYRINGE IVFLUSH ×2 (16:27→19:49)
[2023-10-09] MEDS: 0.9 % Sodium Chloride 1,000 ML 125 ML IVCONT (16:27)
[2023-10-09 16:29] LABS: Bacteria Urine None Seen (None Seen); Hyaline Casts Urine 0-2 /LPF (0-2); Other Crystals Urine Present; RBC Urine 0-2 /HPF (0-2); Squamous Epithelial Cell Urine 0-2 /HPF (0-2); WBC Urine 0-5 /HPF (0-5)
[2023-10-09] MEDS: Doxycycline Monohydrate 100 MG CAPSULE PO (17:28)
[2023-10-09 17:55] VITALS: BMI 30.6
[2023-10-09 18:03] VITALS: BP 109/69; PULSE 69; RESP 18; TEMP 36.3; O2SAT 98
[2023-10-09 19:35] VITALS: BP 109/62; PULSE 60; RESP 18; TEMP 36.7; O2SAT 97
[2023-10-09] MEDS: methADONE HCl 20 MG/2 ML ORAL.CONC 10 MG PO (19:49)
[2023-10-10 01:35] VITALS: BP 111/59; PULSE 66; RESP 18; TEMP 36.2; O2SAT 95
[2023-10-10] MEDS: traMADoL HCL 50 MG TABLET PO (01:40)
[2023-10-10] MEDS: Melatonin 3 MG TABLET 6 MG PO (01:41)
[2023-10-10] MEDS: Doxycycline Monohydrate 100 MG CAPSULE PO ×2 (05:22→16:15)
[2023-10-10 07:34] VITALS: BP 111/67; PULSE 50; RESP 16; TEMP 36; O2SAT 99
[2023-10-10 07:40] VITALS: BP 111/67; PULSE 50; RESP 16; TEMP 36; O2SAT 99
[2023-10-10 07:42] VITALS: BP 111/67; PULSE 50; RESP 16; TEMP 36; O2SAT 99
[2023-10-10] MEDS: clonazePAM 1 MG TABLET 2 MG PO ×2 (08:57→21:05)
[2023-10-10] MEDS: buPROPion HCl XL 150 MG TAB.ER.24H PO (08:57)
[2023-10-10] MEDS: buPROPion HCl XL 300 MG TAB.ER.24H PO (08:57)
[2023-10-10] MEDS: Loperamide HCl 2 MG CAPSULE PO ×3 (08:57→21:05)
[2023-10-10] MEDS: 0.9 % Sodium Chloride Flush 3 ML SYRINGE IVFLUSH (08:57)
--- NOTE | 2023-10-10 09:52 | HO.PM.IMPN ---
Subjective Subjective Date of Service: 10/10/23 Interval History: Extremely irritable C/o generalized pain Refusing lab draws Review of Systems Review of Systems: Yes all other systems are reviewed and are negative Physical Exam Vital Signs: Vital Signs: Last Vital Signs Temp 96.8 F 10/10/23 07:42 Pulse 50 10/10/23 07:42 Resp 16 10/10/23 07:42 BP 111/67 10/10/23 07:42 Pulse Ox 99 10/10/23 07:42 O2 Del Method Room Air 10/10/23 07:42 BMI result Body Mass Index 30.6 Gen: in no acute distress HEENT: sclera anicteric, moist mucus membranes Neck: supple Lungs: clear to auscultation bilaterally Heart: regular rate and rhythm, no murmurs Abd: soft, non-tender, non-distended, colostomy pink Ext: no edema Skin: warm/well-perfused Neuro: alert and oriented x3, no focal findings Psych: restricted affect Objective Data Active Medications Acetaminophen (Acetaminophen 325 Mg Tablet) 650 mg PO Q6H PRN PRN Reason: Pain, Mild (Pain Scale 1-3) Benzonatate (Benzonatate 100 Mg Capsule) 100 mg PO TID PRN PRN Reason: Cough Bupropion HCl (Bupropion Hcl Xl 300 Mg Tab.Er.24h) 300 mg PO DAILY [facility] Last Admin: 10/10/23 08:57 Dose: 300 mg Documented By: ALLISON Bupropion HCl (Bupropion Hcl Xl 150 Mg Tab.Er.24h) 150 mg PO DAILY [facility] Last Admin: 10/10/23 08:57 Dose: 150 mg Documented By: ALLISON Chlorpromazine HCl (Chlorpromazine Hcl 100 Mg Tablet) 100 mg PO TID [facility] Clonazepam (Clonazepam 1 Mg Tablet) 2 mg PO BID [facility] Last Admin: 10/10/23 08:57 Dose: 2 mg Documented By: ALLISON Docusate Sodium (Docusate Sodium 100 Mg Capsule) 100 mg PO DAILY PRN PRN Reason: Constipation Doxycycline Monohydrate (Doxycycline Monohydrate 100 Mg Capsule) 100 mg PO Q12H [facility] Stop: 10/16/23 16:59 Last Admin: 10/10/23 05:22 Dose: 100 mg Documented By: NAOMY Hydroxyzine HCl (Hydroxyzine Hcl 25 Mg Tablet) 25 mg PO BID PRN PRN Reason: itch Sodium Chloride (Ns) 1,000 mls @ 125 mls/hr IVCONT .Q8H [facility] Last Admin: 10/10/23 01:46 Dose: Not Given Documented By: NAOMY Non-Admin Reason: Patient Refused Loperamide HCl (Loperamide Hcl 2 Mg Capsule) 2 mg PO TID [facility] Last Admin: 10/10/23 08:57 Dose: 2 mg Documented By: ALLISON Melatonin (Melatonin 3 Mg Tablet) 6 mg PO BEDTIME PRN PRN Reason: Insomnia Last Admin: 10/10/23 01:41 Dose: 6 mg Documented By: NAOMY Methadone HCl (Methadone Hcl 10 Mg Tablet) 10 mg PO ONCE ONE Stop: 10/10/23 09:41 Mirtazapine (Mirtazapine 7.5 Mg Tablet) 7.5 mg PO BEDTIME [facility] Nicotine Polacrilex (Nicotine Polacrilex 2 Mg Gum) 2 mg BUCCAL Q1H PRN PRN Reason: nicotine cravings Omeprazole (Omeprazole 20 Mg Capsule.Dr) 20 mg PO DAILY@0630 [facility] Ondansetron HCl (Ondansetron Hcl 4 Mg/2 Ml Vial) 4 mg IVPUSH Q8H PRN PRN Reason: Nausea and Vomiting Rivaroxaban (Rivaroxaban 20 Mg Tablet) 20 mg PO DAILY@1800 [facility] Sodium Chloride (0.9 % Sodium Chloride Flush 3 Ml Syringe) 3 ml IVFLUSH QSHIFT [facility] Last Admin: 10/10/23 08:57 Dose: 3 ml Documented By: ALLISON Labs 10/09/23 11:00 10/09/23 11:00 Labs: Laboratory Results - last 24 hr 10/09/23 10/09/23 11:00 15:52 MCV 80.0 MCH 27.1 MCHC 33.8 RDW 16.7 H Plt Count 227 MPV 9.4 Immature Gran % (Auto) 0.4 Neut % (Auto) 77.6 H Lymph % (Auto) 10.4 L Luce % (Auto) 10.9 Eos % (Auto) 0.3 Baso % (Auto) 0.4 Lymph # (Auto) 0.8 L Luce # (Auto) 0.9 Eos # (Auto) 0.0 Baso # (Auto) 0.0 Abs Immat Gran (auto) 0.03 Absolute Neuts (auto) 6.2 Absolute Nucleated RBC 0.000 Nucleated RBC % (auto) 0.0 Anion Gap 17 Estim Creat Clear Calc 66.4 Estimated GFR 55 Random Glucose 138 H Calcium 9.0 D Total Bilirubin 1.0 AST 170 H ALT 104 H Alkaline Phosphatase 83 Total Creatine Kinase 5921 H Total Protein 7.8 Albumin 4.3 Urine Color Yellow Urine Appearance Cloudy Urine pH 5.5 Ur Specific [place] 1.020 Urine Protein 30 (1+) H Urine Glucose (UA) Negative Urine Ketones Trace Urine Blood Small (1+) H Urine Nitrite Negative Ur Leukocyte Esterase Negative Urine RBC 0-2 Urine WBC 0-5 Ur Squamous Epith Cells 0-2 Other Crystals Present Urine Bacteria None Seen Hyaline Casts 0-2 Salicylates < 5.0 L Urine Opiates Screen POSITIVE H Ur Buprenorphine Scrn Not Detected Ur Oxycodone Screen Not Detected Urine Methadone Screen Not Detected Urine Fentanyl Screen POSITIVE H Acetaminophen < 3 Ur Barbiturates Screen Not Detected Ur Phencyclidine Scrn Not Detected Ur Amphetamines Screen Not Detected U Benzodiazepines Scrn Not Detected Urine Cocaine Screen POSITIVE H U Marijuana (THC) Screen POSITIVE H Assessment and Plan (1) Intentional overdose: Status: Acute Plan d2 48yo homeless M with Crohn's disease s/p bowel resection/colostomy, polysubstance injection drug use, depression with SI, and hx DVT on Xarelto brought in after being found unresponsive after intentionally overdosiong on heroin and cocaine admitted for rhabdomyolysis + L hand cellulitis rhabdomyolysis - continue IV NS, recheck CPK pending though pt refusing blood draws; will try again tomorrow L hand cellulitis - vanco stopped due to pt refusal of blood draws. 10/08- doxy + pip/kevin. also refused blood cultures. polysubstance abuse - will give methadone 10 mg once this AM [got 10 mg yesterday evening] and reassess in 2hr; Addiction Medicine consult pending; HCV + HIV screen pending mood disorder - continue bupropion, chlorpromazine, clonazepam, mirtazapine, hydroxyzine tobacco abuse - NRT hx DVT VTE ppx - Xarelto dispo - will need CARE Team evaluation for inpt psychiatry In my clinical judgment, the patient requires continued inpatient hospitalization for the following reasons: SI, IV ABX, IV fluids Total time managing care of this patient today: 40 minutes. Quality Stroke Does the patient have a stroke diagnosis?: No VTE Prior VTE?: No VTE Risk Level:: Medical - moderate - high VTE Device Contraindication: Treatment Not Indicated VTE Drug Contraindication: N/A - Med Ordered
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
[2023-10-10] MEDS: 0.9 % Sodium Chloride 1,000 ML 125 ML IVCONT ×2 (11:33→23:07)
[2023-10-10] MEDS: methADONE HCl 20 MG/2 ML ORAL.CONC 10 MG PO (11:33)
--- NOTE | 2023-10-10 11:44 | MHC.CM.PN ---
PT WILL BE FOLLOWED BY CARE TEAM HE WILL NEED ASSITANCE WITH TRANSPORTAION WHEN DCD
[2023-10-10 13:35] VITALS: PULSE 69
[2023-10-10] MEDS: chlorproMAZINE HCl 100 MG TABLET PO ×2 (14:17→21:05)
[2023-10-10] MEDS: methADONE HCl 20 MG/2 ML ORAL.CONC PO (16:15)
[2023-10-10] MEDS: Rivaroxaban 20 MG TABLET PO (18:30)
[2023-10-10 18:55] VITALS: BP 107/59; PULSE 64; RESP 20; TEMP 36.2; O2SAT 95
[2023-10-10] MEDS: Mirtazapine 7.5 MG TABLET PO (21:05)
[2023-10-11 02:57] VITALS: BP 97/50; PULSE 82; RESP 18; TEMP 36.5; O2SAT 94
[2023-10-11] MEDS: Doxycycline Monohydrate 100 MG CAPSULE PO (05:53)
[2023-10-11] MEDS: Omeprazole 20 MG CAPSULE.DR PO (05:53)
[2023-10-11 05:58] LABS: Anion Gap 11 (12-20); Blood Urea Nitrogen 13 mg/dL (9-16); Calcium 8.3 mg/dL (8.4-10.2); Carbon Dioxide 22 mmol/L (22-29); Chloride 113 mmol/L (96-108); Creatinine Clr Calc Pharmacy 113.6; Estimated Glomerular Filt Rate > 60; Glucose Random 111 mg/dL (60-115); Potassium 3.2 mmol/L (3.3-5.1); Sodium 143 mmol/L (135-145)
[2023-10-11] MEDS: 0.9 % Sodium Chloride 1,000 ML 125 ML IVCONT (07:40)
[2023-10-11 07:48] VITALS: BP 97/52; PULSE 61; RESP 16; TEMP 36.2; O2SAT 95
[2023-10-11] MEDS: buPROPion HCl XL 300 MG TAB.ER.24H PO (08:59)
[2023-10-11] MEDS: buPROPion HCl XL 150 MG TAB.ER.24H PO (08:59)
[2023-10-11] MEDS: chlorproMAZINE HCl 100 MG TABLET PO ×2 (08:59→15:18)
[2023-10-11] MEDS: Loperamide HCl 2 MG CAPSULE PO ×2 (08:59→15:18)
[2023-10-11] MEDS: Potassium Chloride ER 20 MEQ TAB.ER.PRT 40 MEQ PO (08:59)
[2023-10-11] MEDS: clonazePAM 1 MG TABLET 2 MG PO (08:59)
--- NOTE | 2023-10-11 09:49 | HO.PM.IMPN ---
Subjective Subjective Date of Service: 10/11/23 Interval History: no complaints Physical Exam Vital Signs: Vital Signs: Last Vital Signs Temp 97.1 F 10/11/23 07:48 Pulse 61 10/11/23 07:48 Resp 16 10/11/23 07:48 BP 97/52 L 10/11/23 07:48 Pulse Ox 95 10/11/23 07:48 O2 Del Method Room Air 10/11/23 07:48 BMI result Body Mass Index 30.6 Gen: in no acute distress HEENT: sclera anicteric, moist mucus membranes Neck: supple Lungs: clear to auscultation bilaterally Heart: regular rate and rhythm, no murmurs Abd: soft, non-tender, non-distended, colostomy pink Ext: no edema Skin: warm/well-perfused Neuro: alert and oriented x3, no focal findings Psych: restricted affect Objective Data Active Medications Acetaminophen (Acetaminophen 325 Mg Tablet) 650 mg PO Q6H PRN PRN Reason: Pain, Mild (Pain Scale 1-3) Benzonatate (Benzonatate 100 Mg Capsule) 100 mg PO TID PRN PRN Reason: Cough Bupropion HCl (Bupropion Hcl Xl 300 Mg Tab.Er.24h) 300 mg PO DAILY [facility] Last Admin: 10/11/23 08:59 Dose: 300 mg Documented By: BELLA Bupropion HCl (Bupropion Hcl Xl 150 Mg Tab.Er.24h) 150 mg PO DAILY [facility] Last Admin: 10/11/23 08:59 Dose: 150 mg Documented By: BELLA Chlorpromazine HCl (Chlorpromazine Hcl 100 Mg Tablet) 100 mg PO TID [facility] Last Admin: 10/11/23 08:59 Dose: 100 mg Documented By: BELLA Clonazepam (Clonazepam 1 Mg Tablet) 2 mg PO BID [facility] Last Admin: 10/11/23 08:59 Dose: 2 mg Documented By: BELLA Docusate Sodium (Docusate Sodium 100 Mg Capsule) 100 mg PO DAILY PRN PRN Reason: Constipation Doxycycline Monohydrate (Doxycycline Monohydrate 100 Mg Capsule) 100 mg PO Q12H [facility] Stop: 10/16/23 16:59 Last Admin: 10/11/23 05:53 Dose: 100 mg Documented By: ADITHYA Hydroxyzine HCl (Hydroxyzine Hcl 25 Mg Tablet) 25 mg PO BID PRN PRN Reason: itch Loperamide HCl (Loperamide Hcl 2 Mg Capsule) 2 mg PO TID [facility] Last Admin: 10/11/23 08:59 Dose: 2 mg Documented By: BELLA Melatonin (Melatonin 3 Mg Tablet) 6 mg PO BEDTIME PRN PRN Reason: Insomnia Last Admin: 10/10/23 01:41 Dose: 6 mg Documented By: NAOMY Mirtazapine (Mirtazapine 7.5 Mg Tablet) 7.5 mg PO BEDTIME [facility] Last Admin: 10/10/23 21:05 Dose: 7.5 mg Documented By: ADITHYA Nicotine Polacrilex (Nicotine Polacrilex 2 Mg Gum) 2 mg BUCCAL Q1H PRN PRN Reason: nicotine cravings Omeprazole (Omeprazole 20 Mg Capsule.Dr) 20 mg PO DAILY@0630 [facility] Last Admin: 10/11/23 05:53 Dose: 20 mg Documented By: ADITHYA Ondansetron HCl (Ondansetron Hcl 4 Mg/2 Ml Vial) 4 mg IVPUSH Q8H PRN PRN Reason: Nausea and Vomiting Rivaroxaban (Rivaroxaban 20 Mg Tablet) 20 mg PO DAILY@1800 [facility] Last Admin: 10/10/23 18:30 Dose: 20 mg Documented By: VICENTE Sodium Chloride (0.9 % Sodium Chloride Flush 3 Ml Syringe) 3 ml IVFLUSH QSHIFT [facility] Last Admin: 10/11/23 07:40 Dose: Not Given Documented By: BELLA Non-Admin Reason: IV Running Labs 10/09/23 11:00 10/11/23 05:15 Labs: Laboratory Results - last 24 hr 10/11/23 05:15 Hold Purple Top SEE NOTE Anion Gap 11 L Estim Creat Clear Calc 113.6 Estimated GFR > 60 Random Glucose 111 Calcium 8.3 L D Total Creatine Kinase 858 H Assessment and Plan (1) Intentional overdose: Status: Acute Plan d3 48yo homeless M with Crohn's disease s/p bowel resection/colostomy, polysubstance injection drug use, depression with SI, and hx DVT on Xarelto brought in after being found unresponsive after intentionally overdosiong on heroin and cocaine admitted for rhabdomyolysis + L hand cellulitis acute toxic enceophalopathy due to intentional opiate overdose resolved, medically clear, care team eval acute rhabdomyolysis wtih chaka resolved L hand cellulitis cotninue po doxy end october 15 polysubstance abuse follow up addiction team mood disorder continue bupropion, chlorpromazine, clonazepam, mirtazapine, hydroxyzine tobacco abuse NRT hx DVT VTE ppx Xarelto reason for continued hospitalization:care team eval Total time managing care of this patient today: 40 minutes. Quality Stroke Does the patient have a stroke diagnosis?: No VTE Prior VTE?: No VTE Risk Level:: Medical - moderate - high VTE Device Contraindication: Treatment Not Indicated VTE Drug Contraindication: N/A - Med Ordered
--- NOTE | 2023-10-11 10:29 | P.PNADD_ITS ---
Subjective Subjective Date of Service: 10/11/23 Reason For Visit: Rhabdomyolysis intentional overdose Interim History: Patient seen in follow up with project administrative assistant Laying in bed eyes closed, asleep, but woke to voice Kept eyes open on briefly, but was responding to questions (at times with prompting) Chart review shows that he received methadone yesterday afternoon-total of 30mg This morning he is reporting mainly body aches, specifically his legs and feeling hot and cold He reported that he was using 20 bags of heroin daily since discharge from [facility] last week. He reports that he had also been taking medications prescribed at discharged--some of which include Klonopin, morphine, lorazepam, and thorazine. Review of Systems Constitutional: Reports as per [facility] Mental Status Exam Mental Status Exam Mood Description: Withdrawn Affect Description: Withdrawn and Flat Diagnostics Vital Signs (24Hr): Vital Signs - 24 hr 10/10/23 18:55 10/11/23 02:57 10/11/23 07:48 Temperature 97.1 F 97.7 F 97.1 F Pulse Rate 64 82 61 Respiratory Rate 20 18 16 Blood Pressure 107/59 L 97/50 L 97/52 L Pulse Oximetry 95 94 95 Oxygen Delivery Method Room Air Room Air Room Air BMI result Body Mass Index 30.6 Labs 10/09/23 11:00 10/11/23 05:15 Labs: Laboratory Results - last 48 hr 10/09/23 10/09/23 10/11/23 11:00 15:52 05:15 WBC 7.9 RBC 4.36 L Hgb 11.8 L Hct 34.9 L MCV 80.0 MCH 27.1 MCHC 33.8 RDW 16.7 H Plt Count 227 MPV 9.4 Immature Gran % (Auto) 0.4 Neut % (Auto) 77.6 H Lymph % (Auto) 10.4 L [place] % (Auto) 10.9 Eos % (Auto) 0.3 Baso % (Auto) 0.4 Lymph # (Auto) 0.8 L [place] # (Auto) 0.9 Eos # (Auto) 0.0 Baso # (Auto) 0.0 Abs Immat Gran (auto) 0.03 Absolute Neuts (auto) 6.2 Absolute Nucleated RBC 0.000 Nucleated RBC % (auto) 0.0 Hold Purple Top SEE NOTE Sodium 142 143 Potassium 3.7 3.2 L Chloride 109 H 113 H Carbon Dioxide 20 L 22 Anion Gap 17 11 L BUN 40 H 13 Creatinine 1.36 0.80 Estim Creat Clear Calc 66.4 113.6 Estimated GFR 55 > 60 Random Glucose 138 H 111 Calcium 9.0 D 8.3 L D Total Bilirubin 1.0 AST 170 H ALT 104 H Alkaline Phosphatase 83 Total Creatine Kinase 5921 H 858 H Total Protein 7.8 Albumin 4.3 Urine Color Yellow Urine Appearance Cloudy Urine pH 5.5 Ur Specific [place] 1.020 Urine Protein 30 (1+) H Urine Glucose (UA) Negative Urine Ketones Trace Urine Blood Small (1+) H Urine Nitrite Negative Ur Leukocyte Esterase Negative Urine RBC 0-2 Urine WBC 0-5 Ur Squamous Epith Cells 0-2 Other Crystals Present Urine Bacteria None Seen Hyaline Casts 0-2 Salicylates < 5.0 L Urine Opiates Screen POSITIVE H Ur Buprenorphine Scrn Not Detected Ur Oxycodone Screen Not Detected Urine Methadone Screen Not Detected Urine Fentanyl Screen POSITIVE H Acetaminophen < 3 Ur Barbiturates Screen Not Detected Ur Phencyclidine Scrn Not Detected Ur Amphetamines Screen Not Detected U Benzodiazepines Scrn Not Detected Urine Cocaine Screen POSITIVE H U Marijuana (THC) Screen POSITIVE H Medications Medications Current Medications Acetaminophen (Acetaminophen 325 Mg Tablet) 650 mg PO Q6H PRN PRN Reason: Pain, Mild (Pain Scale 1-3) Benzonatate (Benzonatate 100 Mg Capsule) 100 mg PO TID PRN PRN Reason: Cough Bupropion HCl (Bupropion Hcl Xl 300 Mg Tab.Er.24h) 300 mg PO DAILY [facility] Last Admin: 10/11/23 08:59 Dose: 300 mg Bupropion HCl (Bupropion Hcl Xl 150 Mg Tab.Er.24h) 150 mg PO DAILY [facility] Last Admin: 10/11/23 08:59 Dose: 150 mg Chlorpromazine HCl (Chlorpromazine Hcl 100 Mg Tablet) 100 mg PO TID [facility] Last Admin: 10/11/23 08:59 Dose: 100 mg Clonazepam (Clonazepam 1 Mg Tablet) 2 mg PO BID [facility] Last Admin: 10/11/23 08:59 Dose: 2 mg Docusate Sodium (Docusate Sodium 100 Mg Capsule) 100 mg PO DAILY PRN PRN Reason: Constipation Doxycycline Monohydrate (Doxycycline Monohydrate 100 Mg Capsule) 100 mg PO Q12H [facility] Stop: 10/16/23 16:59 Last Admin: 10/11/23 05:53 Dose: 100 mg Hydroxyzine HCl (Hydroxyzine Hcl 25 Mg Tablet) 25 mg PO BID PRN PRN Reason: itch Loperamide HCl (Loperamide Hcl 2 Mg Capsule) 2 mg PO TID [facility] Last Admin: 10/11/23 08:59 Dose: 2 mg Melatonin (Melatonin 3 Mg Tablet) 6 mg PO BEDTIME PRN PRN Reason: Insomnia Last Admin: 10/10/23 01:41 Dose: 6 mg Mirtazapine (Mirtazapine 7.5 Mg Tablet) 7.5 mg PO BEDTIME [facility] Last Admin: 10/10/23 21:05 Dose: 7.5 mg Nicotine Polacrilex (Nicotine Polacrilex 2 Mg Gum) 2 mg BUCCAL Q1H PRN PRN Reason: nicotine cravings Omeprazole (Omeprazole 20 Mg Capsule.Dr) 20 mg PO DAILY@0630 [facility] Last Admin: 10/11/23 05:53 Dose: 20 mg Ondansetron HCl (Ondansetron Hcl 4 Mg/2 Ml Vial) 4 mg IVPUSH Q8H PRN PRN Reason: Nausea and Vomiting Rivaroxaban (Rivaroxaban 20 Mg Tablet) 20 mg PO DAILY@1800 [facility] Last Admin: 10/10/23 18:30 Dose: 20 mg Sodium Chloride (0.9 % Sodium Chloride Flush 3 Ml Syringe) 3 ml IVFLUSH QSHIFT [facility] Last Admin: 10/11/23 07:40 Dose: Not Given Allergies Allergies Allergy/AdvReac Type Severity Reaction Status Date / Time haloperidol [From Haldol] AdvReac see note Verified 10/09/23 10:18 Assessment & Plan Assessment & Plan (1) Opioid withdrawal: Status: Acute Code(s): F11.93 - Opioid use, unspecified with withdrawal Assessment and Plan: * methadone 20mg X1 and reassess this afternoon * concern regarding numerous sedating medications and addition of methadone. Total time managing care of this patient today __25__ minutes.
[2023-10-11] MEDS: methADONE HCl 20 MG/2 ML ORAL.CONC PO (10:43)
--- NOTE | 2023-10-11 12:44 | MHC.CM.PN ---
Addendum entered by Courtney Ochoa 10/11/23 14:41: Patient accepted on M-5. DP transfer to INPT [facility] today via wheelchair. Nurse 2 Nurse report has been given. Original Note: 48 yrs MALE DX SI + Intentional OD + Rhabdo. Careteam eval rec Duel DX INPT. Careteam bed search in progress.
--- NOTE | 2023-10-11 14:22 | P.DS_ITS ---
DS: Providers Provider Date of Service: 10/11/23 Date of admission: 10/09/23 13:48 Primary care physician: Clotilde Nguyen MD Consults: 10/09/23 13:43 Consult for Sitter Routine Reason for consultation: SI with intentional overdose 10/09/23 15:13 Consult to Wound Care Routine Reason for consultation: Ostomy 10/09/23 18:16 Addiction Medicine Routine Consulting Provider: Addiction Covering Reason for consultation: polysubstance abuse Has provider been notified: Yes 10/11/23 09:01 Consult to Care Team Routine Comment: Reason for consultation: medically cleared, intentional od DS: Diagnosis Discharge Diagnosis (1) Opioid withdrawal: Status: Acute DS: Summary Hospital Course Hospital Course: from initial hpi: 41-year-old female with a PMH significant for?GERD/esophageal spasms who presents to the ED for evaluation of left-sided deficits noted since waking this morning. Patient states she was in her normal state of health last night at 23:00, but when she awoke this morning felt numbness and tingling on the left side of her face, upper right back, and left upper thigh. Numbness in her back soon resolved, but other deficits remained. Patient initially thought she had slept on her side wrong and attempted to wait out her symptoms for the next 3 hours. However, numbness in left upper thigh worsened and extended all the way down to her knee which then prompted her to come to the ED for further evaluation. Denies any headache or acute vision changes. No upper right extremity numbness or weakness. Denies ataxia, aphasia, or difficulty speaking. Has had bilateral calf pain for the past few days. Also notes he has had an upper respiratory illness for the past 2 weeks, primarily noting postnasal drip, nonproductive cough, sore throat, and rhinorrhea. 5-6 days ago patient also developed intense nausea and vomiting for 3-4 days. Has had reduced p.o. intake and reduced activity during this time. Nausea and vomiting resolved 2 days ago. Currently no chest pain/pressure, palpitations. Denies fever, chills, nausea, vomiting, abdominal pain. Of note, patient currently smokes marijuana and half a pack of cigarettes daily. Reports her mother had a stroke at age 26. In the ED pt was tachycardic up to 105, vitals otherwise stable. Labs were significant for leukocytosis of 12.1, potassium 3.0, and magnesium 1.4. CT of head found no evidence of intracranial hemorrhage edematous territorial infarction. CTA of head and neck found no acute intracranial findings and no acute arterial occlusion or hemodynamically significant stenosis within the head or neck. However, did find a shelf-like intramural filling defect emanating from posterior wall of right carotid bifurcation compatible with an intramural web, which may serve as thrombogenic source. EKG demonstrated normal sinus rhythm with T-wave inversions in V1 and V2, but no evidence of significant ST elevations or depressions. Pt was treated with IVF, potassium chloride 20 mEq eye V, and Mag sulfate 2 g IV. Pt will be admitted to the hospital for treatment and further evaluation of persistent left-sided deficits concerning for possible CVA. hospital course: Patient was admitted for acute toxic metabolic encephalopathy due to intentional opiate overdose. Encephalopathy resolved he returned to baseline mental status. Course was complicated by acute rhabdomyolysis with acute kidney injury, he received aggressive IV hydration and CPK improved and renal function returned to baseline. Course also complicated by left hand cellulitis was initially treated with IV vancomycin and has been transitioned to p.o. doxycycline to be completed 10/16/2023. For polysubstance dependence with opiate withdrawal was treated with methadone and seen by Addiction team. For mood disorder was continued on bupropion, chloride promethazine, clonazepam, mirtazapine, hydroxyzine, for active suicide ideation was seen by care team who recommended transfer to inpatient psychiatry. For tobacco abuse was continued on nicotine replacement therapy. For history of DVT was continued on Xarelto. Patient will be discharged to inpatient psychiatry. Time Attestation Discharge Coordination Time (in mins): 34 Quality: Safe Use of Opioids Does Pt have an Active Cancer Diagnosis on the Problem List?: No Quality: Stroke Does the patient have a stroke diagnosis?: No Physical Exam Vital Signs: Vital Signs: Last Vital Signs Temp 97.1 F 10/11/23 07:48 Pulse 61 10/11/23 07:48 Resp 16 10/11/23 07:48 BP 97/52 L 10/11/23 07:48 Pulse Ox 95 10/11/23 07:48 O2 Del Method Room Air 10/11/23 07:48 BMI result Body Mass Index 30.6 Gen: in no acute distress HEENT: sclera anicteric, moist mucus membranes Neck: supple Lungs: clear to auscultation bilaterally Heart: regular rate and rhythm, no murmurs Abd: soft, non-tender, non-distended, colostomy pink Ext: no edema Skin: warm/well-perfused Neuro: alert and oriented x3, no focal findings Psych: restricted affect DS: Data Data Completed and Pending Completed studies during hospitalization [Text1]: Procedures Bypass Sigmoid Colon to Cutaneous, Open Approach (09/23/22) Excision of Descending Colon, Via Natural or Artificial Opening Endoscopic, Saadia gnostic (01/02/21) Excision of Sigmoid Colon, Open Approach (09/23/22) Excision of Sigmoid Colon, Via Natural or Artificial Opening Endoscopic, Diagnostic (01/02/21) Insertion of Infusion Device into Right Brachial Vein, Percutaneous Approach (05/16/22) Insertion of Infusion Device into Superior Vena Cava, Percutaneous Approach (08/10/22) Other Electroconvulsive Therapy (05/16/22) Release Peritoneum, Open Approach (09/23/22) Ultrasonography of Superior Vena Cava, Guidance (08/10/22) Labs on day of discharge: Laboratory Results - last 24 hr 10/11/23 05:15 Hold Purple Top SEE NOTE Sodium 143 Potassium 3.2 L Chloride 113 H Carbon Dioxide 22 Anion Gap 11 L BUN 13 Creatinine 0.80 Estim Creat Clear Calc 113.6 Estimated GFR > 60 Random Glucose 111 Calcium 8.3 L D Total Creatine Kinase 858 H Discharge Plan Discharge Anticipated Discharge Date/Time: 10/11/23 14:18 Patient Disposition: er SNF Discharge Diagnosis: od Referrals: Clotilde Baca MD [Primary Care Provider] - 1 Week Discharge Medications: Continued loperamide 2 mg capsule 2 mg PO TID nicotine (polacrilex) 2 mg gum 2 mg PO Q1H PRN (Reason: nicotine cravings) Rx Instructions: DNE 24 PIECES A DAY chlorpromazine 100 mg tablet 100 mg PO TID melatonin 3 mg tablet 3 mg PO BEDTIME PRN (Reason: insomnia) clonazepam 2 mg tablet 2 mg PO BID hydroxyzine HCl 25 mg tablet 25 mg PO BID PRN (Reason: itch) mirtazapine 15 mg tablet 7.5 mg PO BEDTIME lorazepam 1 mg tablet 1 mg PO TID PRN (Reason: anxiety) morphine 15 mg tablet 15 mg PO Q6H PRN (Reason: pain) bupropion HCl 300 mg tablet extended release 24 hr 300 mg PO DAILY Rx Instructions: with 150 mg bupropion HCl 150 mg tablet extended release 24 hr 150 mg PO DAILY Rx Instructions: with 300 mg Xarelto 20 mg tablet 20 mg PO DAILY@1800 acetaminophen 325 mg tablet 975 mg PO Q6H PRN (Reason: Pain, Mild (Pain Scale 1-3)) lansoprazole 30 mg Capsule,Delayed Release(Dr/Ec) 30 mg PO DAILY@0630 methenamine mandelate 1 gram Tablet 1 g PO QID Rx Instructions: administer after meals and at bedtime Discharge Orders: Discharge Order (Routine); Ordered 10/11/23 Ordered By: Lucas Marcos Diet: Advance to usual diet Activity on Discharge: As tolerated Stand Alone Forms: Patient Portal Discharge page Print Language: Luxembourger Care Plan Goals: recovery Health Concerns: SI Plan of Treatment: transfer to [facility], complete antibiotic course with doxy 10/16/23 Assessment: see above
[2023-10-11] MEDS: 0.9 % Sodium Chloride Flush 3 ML SYRINGE IVFLUSH (15:18)
[2023-10-11 16:00] VITALS: BP 112/61; PULSE 76; RESP 13; TEMP 36.3; O2SAT 97
--- NOTE | 2023-10-11 16:02 | MHC.RECOVRN ---
Met with pt to follow up after receiving 20 mg methadone. Pt laying in bed, awake, alert, difficult to engage in conversation, appears comfortable. Pt reports feeling a little withdrawal, reports leg pain. Pt denies other symptoms, states I feel good. Pt denies questions or concerns for t/w. Discussed with Clotilde Pan APRN.
== END 2023-10-11 16:01 | disposition skilled nursing facility (03) | DRG 754 ==
LOC: HO.ED 12:25 → HO.EDOVER 13:49 → HO.S3 16:56
PROVIDERS: Family Medicine; Admitting Provider Student in an Organized Health Care Education/Training Program; Emergency Provider Emergency Medicine Emergency Medical Services; PCP Internal Medicine; Visit Provider Internal Medicine
DX: F32.A Depression, unspecified (principal); G92.8 Other toxic encephalopathy; M62.82 Rhabdomyolysis; T40.1X2A Poisoning by heroin, intentional self-harm, initial encounter; L03.114 Cellulitis of left upper limb; K50.90 Crohn's disease, unspecified, without complications; T40.5X2A Poisoning by cocaine, intentional self-harm, initial encounter; F11.23 Opioid dependence with withdrawal; F19.20 Other psychoactive substance dependence, uncomplicated; F17.210 Nicotine dependence, cigarettes, uncomplicated; Z79.01 Long term (current) use of anticoagulants; Z59.02 Unsheltered homelessness; Z71.6 Tobacco abuse counseling; Z79.899 Other long term (current) drug therapy
CPT/HCPCS: 36415; 80048; 80053; 80143; 80179; 80307; 81001; 82550; 85025; 93005; 99285; S9485

== ENCOUNTER → 2023-10-09 10:31 | Outpatient (BNV) | payer MEDICAID, SELFPAY | PROVIDERS: Admitting Provider Student in an Organized Health Care Education/Training Program; Emergency Provider Emergency Medicine Emergency Medical Services; PCP Internal Medicine; Visit Provider Internal Medicine | DX: I45.81 Long QT syndrome (principal) | CPT/HCPCS: 93010 ==

== ENCOUNTER → 2023-10-09 13:48 | Outpatient (BNV) | payer OTHER, SELFPAY | PROVIDERS: Admitting Provider Student in an Organized Health Care Education/Training Program; Emergency Provider Emergency Medicine Emergency Medical Services; PCP Internal Medicine; Visit Provider Nurse Practitioner Psychiatric/Mental Health | DX: F11.93 Opioid use, unspecified with withdrawal (principal) | CPT/HCPCS: 99232 ==

== ENCOUNTER → 2023-10-09 13:48 | Outpatient (BNV) | payer MEDICAID, SELFPAY | PROVIDERS: Admitting Provider Student in an Organized Health Care Education/Training Program; Emergency Provider Emergency Medicine Emergency Medical Services; PCP Internal Medicine; Visit Provider Family Medicine | DX: T50.902A Poisoning by unspecified drugs, medicaments and biological substances, intentional self-harm, initial encounter (principal); F11.93 Opioid use, unspecified with withdrawal | CPT/HCPCS: 99223; 99232; 99239; 99499 ==

== ENCOUNTER 2023-10-11 16:12 | Inpatient (IN) | payer OTHER, SELFPAY ==
[2023-10-11 14:15] VITALS: BP 126/71; PULSE 84; RESP 16; TEMP 36.9; O2SAT 95
--- NOTE | 2023-10-11 16:49 | PM.EVENT ---
Documented by User: Liz Sidhu APRN 10/11/23 16:54 Event Note Date of Service: 10/11/23 Event Note: Physician review of pts' care prior to transfer with Dr. Marcos who reports pt s/p opiate overdose which was intentional. Pt was obtunded, experienced BERNARD, rhabdomyolysis, cellulitis on L hand treated with vancomycin until pt refused labs-this was changed to doxycillin and will be in effect until 10/16/23. Pt is in bed, resting when seen on the unit. He agreed to sign a conditional voluntary and had not questions about this when asked. Time Spent With Patient Time: Total time managing care of this patient today ____ minutes. Documented by User: Jefferson Vasquez MD 10/14/23 09:32 Event Note Date of Service: 10/14/23
[2023-10-11 17:15] VITALS: BMI 26.5
--- NOTE | 2023-10-11 18:08 | PC.NURSE ---
pt arrived on the unit at 14:15 via wheel chair from the medical floor. Skin check performed & Cv signed w/ provider. Pt declined to participate further with admission process. Per crisis evaluation: Pt was found in community to have overdosed on street drugs. Pt was brought to the emergency department and medically admitted. Pt initially reported the OD was accidental but later retracted this statement and said it was intentional. Precipitant to SI is unclear Pt has extensive hx if IPLOC and Sec 35s as well as non-medication compliance and previous suicide attempts. Pt has PMH of MDD, PTSD, and opioid use disorder and is currently homeless. Pt has a colostomy bag on the left lower abdomen which is in place and intact. Unable to fully assess as bad is full of feces. Provider notified to enter wound care consult and nursing supervisor winding department notified to obtain supplies. Also of note a multiple leg wounds which are healed and scabbed as well as a scab to the right lower abdomen pt reported is due to previous ostomy placement. Tox screen positive for opiates, fentanyl, cocaine and marijuana. Pt was seen by addiction medicine during medical admission. Pt was approached shortly after arriving and reports anxiety, depression, AH, and SI and states he can seek help if needed.
[2023-10-11 20:00] VITALS: BP 121/68; PULSE 84; RESP 18; TEMP 37.1; O2SAT 97
[2023-10-11] MEDS: Doxycycline Monohydrate 100 MG CAPSULE PO (22:02)
[2023-10-11] MEDS: Rivaroxaban 20 MG TABLET PO (22:02)
[2023-10-11] MEDS: clonazePAM 1 MG TABLET 2 MG PO (22:02)
[2023-10-11] MEDS: Mirtazapine 7.5 MG TABLET PO (22:02)
[2023-10-11] MEDS: Loperamide HCl 2 MG CAPSULE PO (22:02)
[2023-10-11] MEDS: chlorproMAZINE HCl 100 MG TABLET PO (22:02)
[2023-10-12 08:00] VITALS: BP 132/74; PULSE 72; RESP 18; TEMP 36.7; O2SAT 94
[2023-10-12] MEDS: clonazePAM 1 MG TABLET 2 MG PO ×2 (09:12→20:41)
[2023-10-12] MEDS: buPROPion HCl XL 300 MG TAB.ER.24H PO (09:12)
[2023-10-12] MEDS: Doxycycline Monohydrate 100 MG CAPSULE PO ×2 (09:12→20:40)
[2023-10-12] MEDS: chlorproMAZINE HCl 100 MG TABLET PO ×3 (09:12→20:40)
[2023-10-12] MEDS: Loperamide HCl 2 MG CAPSULE PO ×3 (09:12→20:40)
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
[2023-10-12] MEDS: methADONE HCl 20 MG/2 ML ORAL.CONC PO (13:33)
[2023-10-12 20:00] VITALS: BP 125/62; PULSE 70; RESP 16; TEMP 36.9; O2SAT 97
[2023-10-12] MEDS: Mirtazapine 7.5 MG TABLET PO (20:40)
[2023-10-13 08:00] VITALS: BP 122/65; PULSE 81; RESP 18; TEMP 36.8; O2SAT 95
[2023-10-13] MEDS: Doxycycline Monohydrate 100 MG CAPSULE PO ×2 (09:21→21:10)
[2023-10-13] MEDS: chlorproMAZINE HCl 100 MG TABLET PO ×3 (09:21→21:09)
[2023-10-13] MEDS: clonazePAM 1 MG TABLET 2 MG PO ×2 (09:21→21:09)
[2023-10-13] MEDS: Loperamide HCl 2 MG CAPSULE PO ×3 (09:21→21:09)
[2023-10-13] MEDS: buPROPion HCl XL 300 MG TAB.ER.24H PO (09:21)
[2023-10-13] MEDS: buPROPion HCl XL 150 MG TAB.ER.24H PO (09:22)
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
[2023-10-13] MEDS: methADONE HCl 20 MG/2 ML ORAL.CONC PO (13:52)
--- NOTE | 2023-10-13 14:57 | HO.PSYCHPN ---
Subjective Subjective Date of Service: 10/13/23 Reason For Visit: opiate overdose with suicidal intent Interim History: Met with patient; discussed with team Patient more open today. Shares more history. Says his girlfriend from cancer May 06; at that time he was hospitalized. He was doing better for while but got depressed again and was psychiatrically hospitalized at [facility] early this September. When he was discharged she went back to his female friend's house where he had been living in [place] but when he got there she told him he had a move out with little explanation. He said that is when he relapsed once on the street. Patient said because of the [facility] hospitalization he missed his surgical appointment to have his colostomy reversed. His worry is that if he is discharged back to the street, he will again relapse and again miss this important surgery. Patient says suicidality comes and goes but increases when he thinks of being homeless. Mental Status Exam Mental Status Exam Narrative: Pt is alert and oriented; behavior is cooperative, calm; patient is not in distress; dressed in hospital attire, overall adequately groomed;; mood is described as depressed and affect congruent, downcast; eye contact appropriate; Speech is soft and slow; psychomotor retardation present; thought process is organized and goal directed; Thought content is on psychosocial stressors, tx; otherwise pertinent to relevant topics and without any delusional content, paranoid ideations or grandiosity; positive for SI; no HI. Denies AVH and There is no evidence of perceptual disturbance. Patients insight and judgment impaired Diagnostics Vital Signs (24Hr): Vital Signs - 24 hr 10/12/23 20:00 10/13/23 08:00 Temperature 98.4 F 98.2 F Pulse Rate 70 81 Respiratory Rate 16 18 Blood Pressure 125/62 122/65 Pulse Oximetry 97 95 Oxygen Delivery Method Room Air Room Air BMI result Body Mass Index 26.5 Medications Medications Current Medications Acetaminophen (Acetaminophen 325 Mg Tablet) 650 mg PO Q6H PRN PRN Reason: Headache/Pain Mild Scale (1-3) Al Hydroxide/Mg Hydroxide (Magnesium Hydrox/Alum Hydrox 30 Ml Oral.Susp) 30 ml PO Q6H PRN PRN Reason: Heartburn/Nausea Benzonatate (Benzonatate 100 Mg Capsule) 100 mg PO TID PRN PRN Reason: Cough Bupropion HCl (Bupropion Hcl Xl 300 Mg Tab.Er.24h) 300 mg PO DAILY [facility] Last Admin: 10/13/23 09:21 Dose: 300 mg Bupropion HCl (Bupropion Hcl Xl 150 Mg Tab.Er.24h) 150 mg PO DAILY [facility] Last Admin: 10/13/23 09:22 Dose: 150 mg Chlorpromazine HCl (Chlorpromazine Hcl 100 Mg Tablet) 100 mg PO TID [facility] Last Admin: 10/13/23 09:21 Dose: 100 mg Clonazepam (Clonazepam 1 Mg Tablet) 2 mg PO BID [facility] Last Admin: 10/13/23 09:21 Dose: 2 mg Docusate Sodium (Docusate Sodium 100 Mg Capsule) 100 mg PO DAILY PRN PRN Reason: Constipation Doxycycline Monohydrate (Doxycycline Monohydrate 100 Mg Capsule) 100 mg PO BID [facility] Last Admin: 10/13/23 09:21 Dose: 100 mg Hydroxyzine HCl (Hydroxyzine Hcl 25 Mg Tablet) 25 mg PO BID PRN PRN Reason: itch Loperamide HCl (Loperamide Hcl 2 Mg Capsule) 2 mg PO TID [facility] Last Admin: 10/13/23 09:21 Dose: 2 mg Magnesium Hydroxide (Milk Of Magnesia 30 Ml Oral.Susp) 30 ml PO DAILY PRN PRN Reason: Constipation Melatonin (Melatonin 3 Mg Tablet) 6 mg PO BEDTIME PRN PRN Reason: Insomnia Mirtazapine (Mirtazapine 7.5 Mg Tablet) 7.5 mg PO BEDTIME [facility] Last Admin: 10/12/23 20:40 Dose: 7.5 mg Nicotine (Nicotine 21 Mg Patch.Td24) 21 mg TRANSDERMA DAILY PRN PRN Reason: nicotine craving Nicotine Polacrilex (Nicotine Polacrilex 2 Mg Gum) 4 mg BUCCAL Q2H PRN PRN Reason: Nicotine Cravings Omeprazole (Omeprazole 20 Mg Capsule.Dr) 20 mg PO DAILY@0630 [facility] Last Admin: 10/13/23 06:04 Dose: Not Given Rivaroxaban (Rivaroxaban 20 Mg Tablet) 20 mg PO DAILY@1800 [facility] Last Admin: 10/12/23 17:50 Dose: Not Given Trazodone HCl (Trazodone Hcl 50 Mg Tablet) 50 mg PO BEDTIME MRX1 PRN PRN Reason: Insomnia Allergies Allergies Allergy/AdvReac Type Severity Reaction Status Date / Time haloperidol [From Haldol] AdvReac see note Verified 10/09/23 10:18 Assessment & Plan Assessment & Plan (1) Colostomy in place: Status: Acute Code(s): Z93.3 - Colostomy status (2) Ileostomy in place: Status: Acute Code(s): Z93.2 - Ileostomy status Plan Patient is a 48-year-old male with history of depression, opioid/cocaine abuse, Crohn's disease large bowel obstruction due to sigmoid stricture s/p colostomy, multiple psychiatric hospitalizations who presented to the ED for intentional drug overdose. Patient was found unresponsive on the back porch of a stranger's house after having injected cocaine/heroin into his neck. Patient was given Narcan and brought to the hospital. Patient reports that he intentionally overdosed in a suicide attempt following relational strife with his and being kicked out of the house. He was medically admitted and treated for rhabdomyolysis. Patient medically cleared and presents to for psychiatric admission. Patient reports that up until about 5 days ago he was doing well, good mood, taking his medications regularly and remain sober. Patient got into an argument with his , the details of which he did not disclose, and got kicked out of the house. Patient said that this triggered strong emotional response and he relapsed for the past 5 days; with continued depression and falling into despair patient got suicidal and intentionally overdosed on heroin cocaine. Patient remains depressed with intermittent suicidality present; he asks to get on methadone which he was on years ago, saying he needs this initially to help him stay sober and will get off it later on. He is amenable to medication adjustments, increasing antidepressants. Formulation/clinical reasoning: Will continue home medication; patient asking to be started on methadone which he has been on in the past to help him remain sober Continues to have SI though seems mostly related to being discharged to homelessness Will hold off increasing antidepressants for now since patient was on these doses for quite awhile, doing well hospital course: 10/12 Patient more open today. Shares more history. Says his girlfriend from cancer May 06; at that time he was hospitalized. He was doing better for while but got depressed again and was psychiatrically hospitalized at [facility] early this September. When he was discharged she went back to his female friend's house where he had been living in [place] but when he got there she told him he had a move out with little explanation. He said that is when he relapsed once on the street. Patient said because of the [facility] hospitalization he missed his surgical appointment to have his colostomy reversed. His worry is that if he is discharged back to the street, he will again relapse and again miss this important surgery. Patient says suicidality comes and goes but increases when he thinks of being homeless. -patient complained of some discomfort an anal region; will shower and wash and let nursing know if discomfort continues Plan: CV Q 15 minute checks Start methadone 20 mg daily; will titrate to 30 mg which patient thinks will be sufficient Continue chlorpromazine 100 mg PO TID Continue clonazepam 2 mg PO BID Continue mirtazapine 7.5 mg PO BEDTIME Continue bupropion HCl XL 300 mg daily Continue bupropion HCl XL 150 mg daily melatonin 3 mg PO BEDTIME PRN Continue loperamide 2 mg PO TID Continue Xarelto 20 mg PO DAILY@1800 Continue lansoprazole 30 mg Capsule,Delayed Release(Dr/Ec) daily Continue methenamine mandelate 1 g PO QID Patient educated on: diagnosis, medication risk/benefits, substance abuse and medical condition regarding ostomy: both ileostomy and colostomy in place. Both are viable appearing. Can change ileostomy appliance every 3-4 days and as needed. Empty appliance Q shift and as needed. Can keep the colostomy covered with dry dressing such as allevyn pads or nonwoven sponge, as it is being proximally diverted. He has a very large parastomal hernia at the ileostomy site which is soft and reducible, no current intervention needed. consulted the supervisor green end departmentFalguni to assist with education and appliance changes. Patient educated on: diagnosis, medication risk/benefits, substance abuse, therapeutic strategies and medical condition Informed Consent: understands Reason for continued inpatient stay Substantial Risk for: rapid decompensation Time Spent With Patient Time: Total time managing care of this patient today ____ minutes.
[2023-10-13] MEDS: Rivaroxaban 20 MG TABLET PO (18:06)
[2023-10-13 20:00] VITALS: BP 134/67; PULSE 73; RESP 18; TEMP 36.3; O2SAT 98
[2023-10-13] MEDS: Mirtazapine 15 MG TABLET PO (21:10)
[2023-10-14] MEDS: Omeprazole 20 MG CAPSULE.DR PO (06:18)
[2023-10-14 07:50] VITALS: BP 110/58; PULSE 62; RESP 16; TEMP 36.9; O2SAT 95
[2023-10-14] MEDS: buPROPion HCl XL 150 MG TAB.ER.24H PO (09:32)
[2023-10-14] MEDS: Doxycycline Monohydrate 100 MG CAPSULE PO ×2 (09:32→21:02)
[2023-10-14] MEDS: buPROPion HCl XL 300 MG TAB.ER.24H PO (09:32)
[2023-10-14] MEDS: chlorproMAZINE HCl 100 MG TABLET PO ×3 (09:32→21:02)
[2023-10-14] MEDS: Loperamide HCl 2 MG CAPSULE PO ×3 (09:32→21:03)
[2023-10-14] MEDS: clonazePAM 1 MG TABLET 2 MG PO ×2 (09:33→21:02)
--- NOTE | 2023-10-14 13:07 | HO.PSYCHPN ---
Subjective Subjective Date of Service: 10/14/23 Reason For Visit: opiate overdose with suicidal intent Interim History: Met with patient; discussed with team Patient still quite depressed but overall feeling better than on admission. Discomfort and anal region fully resolved on its own. Patient agreed to increase in Remeron which was increased. He asks if methadone can be bumped up to 30 mg which he feels will be enough to help him remain sober. Patient very eager to contact [facility] surgical staff to get new appointment for surgical procedure; fiction and nonfiction prose writer will see if can contact providers. Patient has been keeping to himself but says he knows this is not helping him and agrees with behavioral activation, saying he will push himself to attend groups, knowing that once he does it will be helpful. Mental Status Exam Mental Status Exam Narrative: Pt is alert and oriented; behavior is cooperative, calm; patient is not in distress; dressed in hospital attire, overall adequately groomed;; mood is described as depressed and affect congruent, downcast; eye contact appropriate; Speech is soft and slow; psychomotor retardation present; thought process is organized and goal directed; Thought content is on psychosocial stressors, tx; otherwise pertinent to relevant topics and without any delusional content, paranoid ideations or grandiosity; no SI; no HI. Denies AVH and There is no evidence of perceptual disturbance. Patients insight and judgment fair Diagnostics Vital Signs (24Hr): Vital Signs - 24 hr 10/13/23 20:00 10/14/23 07:50 Temperature 97.3 F 98.4 F Pulse Rate 73 62 Respiratory Rate 18 16 Blood Pressure 134/67 110/58 L Pulse Oximetry 98 95 Oxygen Delivery Method Room Air Room Air BMI result Body Mass Index 26.5 Medications Medications Current Medications Acetaminophen (Acetaminophen 325 Mg Tablet) 650 mg PO Q6H PRN PRN Reason: Headache/Pain Mild Scale (1-3) Al Hydroxide/Mg Hydroxide (Magnesium Hydrox/Alum Hydrox 30 Ml Oral.Susp) 30 ml PO Q6H PRN PRN Reason: Heartburn/Nausea Benzonatate (Benzonatate 100 Mg Capsule) 100 mg PO TID PRN PRN Reason: Cough Bupropion HCl (Bupropion Hcl Xl 300 Mg Tab.Er.24h) 300 mg PO DAILY [facility] Last Admin: 10/14/23 09:32 Dose: 300 mg Bupropion HCl (Bupropion Hcl Xl 150 Mg Tab.Er.24h) 150 mg PO DAILY [facility] Last Admin: 10/14/23 09:32 Dose: 150 mg Chlorpromazine HCl (Chlorpromazine Hcl 100 Mg Tablet) 100 mg PO TID [facility] Last Admin: 10/14/23 09:32 Dose: 100 mg Clonazepam (Clonazepam 1 Mg Tablet) 2 mg PO BID [facility] Last Admin: 10/14/23 09:33 Dose: 2 mg Docusate Sodium (Docusate Sodium 100 Mg Capsule) 100 mg PO DAILY PRN PRN Reason: Constipation Doxycycline Monohydrate (Doxycycline Monohydrate 100 Mg Capsule) 100 mg PO BID [facility] Last Admin: 10/14/23 09:32 Dose: 100 mg Hydroxyzine HCl (Hydroxyzine Hcl 25 Mg Tablet) 25 mg PO BID PRN PRN Reason: itch Loperamide HCl (Loperamide Hcl 2 Mg Capsule) 2 mg PO TID [facility] Last Admin: 10/14/23 09:32 Dose: 2 mg Magnesium Hydroxide (Milk Of Magnesia 30 Ml Oral.Susp) 30 ml PO DAILY PRN PRN Reason: Constipation Melatonin (Melatonin 3 Mg Tablet) 6 mg PO BEDTIME PRN PRN Reason: Insomnia Mirtazapine (Mirtazapine 15 Mg Tablet) 15 mg PO BEDTIME [facility] Last Admin: 10/13/23 21:10 Dose: 15 mg Nicotine (Nicotine 21 Mg Patch.Td24) 21 mg TRANSDERMA DAILY PRN PRN Reason: nicotine craving Nicotine Polacrilex (Nicotine Polacrilex 2 Mg Gum) 4 mg BUCCAL Q2H PRN PRN Reason: Nicotine Cravings Omeprazole (Omeprazole 20 Mg Capsule.) 20 mg PO DAILY@0630 [facility] Last Admin: 10/14/23 06:18 Dose: 20 mg Rivaroxaban (Rivaroxaban 20 Mg Tablet) 20 mg PO DAILY@1800 [facility] Last Admin: 10/13/23 18:06 Dose: 20 mg Trazodone HCl (Trazodone Hcl 50 Mg Tablet) 50 mg PO BEDTIME MRX1 PRN PRN Reason: Insomnia Allergies Allergies Allergy/AdvReac Type Severity Reaction Status Date / Time haloperidol [From Haldol] AdvReac see note Verified 10/09/23 10:18 Assessment & Plan Assessment & Plan (1) Colostomy in place: Status: Acute Code(s): Z93.3 - Colostomy status (2) Ileostomy in place: Status: Acute Code(s): Z93.2 - Ileostomy status Plan Patient is a 48-year-old male with history of depression, opioid/cocaine abuse, Crohn's disease large bowel obstruction due to sigmoid stricture s/p colostomy, multiple psychiatric hospitalizations who presented to the ED for intentional drug overdose. Patient was found unresponsive on the back porch of a stranger's house after having injected cocaine/heroin into his neck. Patient was given Narcan and brought to the hospital. Patient reports that he intentionally overdosed in a suicide attempt following relational strife with his and being kicked out of the house. He was medically admitted and treated for rhabdomyolysis. Patient medically cleared and presents to for psychiatric admission. Patient reports that up until about 5 days ago he was doing well, good mood, taking his medications regularly and remain sober. Patient got into an argument with his , the details of which he did not disclose, and got kicked out of the house. Patient said that this triggered strong emotional response and he relapsed for the past 5 days; with continued depression and falling into despair patient got suicidal and intentionally overdosed on heroin cocaine. Patient remains depressed with intermittent suicidality present; he asks to get on methadone which he was on years ago, saying he needs this initially to help him stay sober and will get off it later on. He is amenable to medication adjustments, increasing antidepressants. Formulation/clinical reasoning: Will continue home medication; patient asking to be started on methadone which he has been on in the past to help him remain sober Continues to have SI though seems mostly related to being discharged to homelessness Will hold off increasing antidepressants for now since patient was on these doses for quite awhile, doing well hospital course: 10/12 Patient more open today. Shares more history. Says his girlfriend from cancer May 06; at that time he was hospitalized. He was doing better for while but got depressed again and was psychiatrically hospitalized at [facility] early this September. When he was discharged she went back to his female friend's house where he had been living in [place] but when he got there she told him he had a move out with little explanation. He said that is when he relapsed once on the street. Patient said because of the [facility] hospitalization he missed his surgical appointment to have his colostomy reversed. His worry is that if he is discharged back to the street, he will again relapse and again miss this important surgery. Patient says suicidality comes and goes but increases when he thinks of being homeless. -patient complained of some discomfort an anal region which resolved on its own after a shower 10/13 still depressed but slowly improving. Agrees to behavioral activation and push himself to attend groups. Increased mirtazapine to 15 mg which he agrees can be increased further if needed. Increasing methadone to 30 mg which he feels should be sufficient for staying sober. Plan: CV Q 15 minute checks Increase to methadone 30 mg daily; will titrate to 30 mg which patient thinks will be sufficient Continue chlorpromazine 100 mg PO TID Continue clonazepam 2 mg PO BID INCREASED to mirtazapine 15 mg PO BEDTIME; may titrate further for continued depression Added clonidine p.r.n. for anxiety Continue bupropion HCl XL 300 mg daily Continue bupropion HCl XL 150 mg daily melatonin 3 mg PO BEDTIME PRN Continue loperamide 2 mg PO TID Continue Xarelto 20 mg PO DAILY@1800 Continue lansoprazole 30 mg Capsule,Delayed Release(Dr/Ec) daily Continue methenamine mandelate 1 g PO QID Patient educated on: diagnosis, medication risk/benefits, substance abuse and medical condition [facility] surgeon Dr. Myla Shi regarding ostomy: both ileostomy and colostomy in place. Both are viable appearing. Can change ileostomy appliance every 3-4 days and as needed. Empty appliance Q shift and as needed. Can keep the colostomy covered with dry dressing such as allevyn pads or nonwoven sponge, as it is being proximally diverted. He has a very large parastomal hernia at the ileostomy site which is soft and reducible, no current intervention needed. consulted the lead pressman, Falguni to assist with education and appliance changes. Patient educated on: diagnosis, medication risk/benefits, substance abuse, therapeutic strategies and medical condition Informed Consent: understands Reason for continued inpatient stay Substantial Risk for: rapid decompensation Time Spent With Patient Time: Total time managing care of this patient today ____ minutes.
[2023-10-14] MEDS: methADONE HCl 20 MG/2 ML ORAL.CONC PO (13:19)
[2023-10-14] MEDS: Rivaroxaban 20 MG TABLET PO (17:34)
[2023-10-14 20:00] VITALS: BP 116/64; PULSE 80; RESP 16; TEMP 36.8; O2SAT 97
[2023-10-14] MEDS: Mirtazapine 15 MG TABLET PO (21:02)
[2023-10-15 07:47] VITALS: BP 106/51; PULSE 67; RESP 16; TEMP 36.5; O2SAT 95
[2023-10-15] MEDS: clonazePAM 1 MG TABLET 2 MG PO ×2 (08:26→22:05)
[2023-10-15] MEDS: methADONE HCl 20 MG/2 ML ORAL.CONC 30 MG PO (08:26)
[2023-10-15] MEDS: chlorproMAZINE HCl 100 MG TABLET PO ×3 (08:26→22:05)
[2023-10-15] MEDS: buPROPion HCl XL 150 MG TAB.ER.24H PO (08:26)
[2023-10-15] MEDS: buPROPion HCl XL 300 MG TAB.ER.24H PO (08:26)
[2023-10-15] MEDS: Loperamide HCl 2 MG CAPSULE PO ×3 (08:26→22:05)
[2023-10-15] MEDS: Doxycycline Monohydrate 100 MG CAPSULE PO ×2 (08:26→22:05)
--- NOTE | 2023-10-15 12:25 | HO.PSYCHPN ---
Subjective Subjective Date of Service: 10/15/23 Reason For Visit: opiate overdose with suicidal intent Subjective Notes: Conditional Voluntary Interim History: Pt slept through the night. Pt continues to report feeling depressed. He denies plan or intent to harm himself but reports he feels very depressed. He thinks maybe a bit better. His affect is very flat, somewhat irritable. He is taking medications as prescribed. No behavioral concerns. He is visible on the unit, social with peers. Review of Systems Constitutional: Denies chills and Denies fever(s) Gastrointestinal: Denies abdominal pain, Denies nausea and Denies vomiting Skin/Breast: Denies rash Mental Status Exam Mental Status Exam Narrative: Pt is alert and oriented; behavior is cooperative, calm; patient is not in distress; dressed in hospital attire, overall adequately groomed;; mood is described as depressed and affect congruent, downcast; eye contact appropriate; Speech is soft and slow; psychomotor retardation present; thought process is organized and goal directed; Thought content is on psychosocial stressors, tx; otherwise pertinent to relevant topics and without any delusional content, paranoid ideations or grandiosity; no SI; no HI. Denies AVH and There is no evidence of perceptual disturbance. Patients insight and judgment fair Diagnostics Vital Signs (24Hr): Vital Signs - 24 hr 10/14/23 20:00 10/15/23 07:47 Temperature 98.2 F 97.7 F Pulse Rate 80 67 Respiratory Rate 16 16 Blood Pressure 116/64 106/51 L Pulse Oximetry 97 95 Oxygen Delivery Method Room Air BMI result Body Mass Index 26.5 Medications Medications Current Medications Acetaminophen (Acetaminophen 325 Mg Tablet) 650 mg PO Q6H PRN PRN Reason: Headache/Pain Mild Scale (1-3) Al Hydroxide/Mg Hydroxide (Magnesium Hydrox/Alum Hydrox 30 Ml Oral.Susp) 30 ml PO Q6H PRN PRN Reason: Heartburn/Nausea Benzonatate (Benzonatate 100 Mg Capsule) 100 mg PO TID PRN PRN Reason: Cough Bupropion HCl (Bupropion Hcl Xl 300 Mg Tab.Er.24h) 300 mg PO DAILY [facility] Last Admin: 10/15/23 08:26 Dose: 300 mg Bupropion HCl (Bupropion Hcl Xl 150 Mg Tab.Er.24h) 150 mg PO DAILY [facility] Last Admin: 10/15/23 08:26 Dose: 150 mg Chlorpromazine HCl (Chlorpromazine Hcl 100 Mg Tablet) 100 mg PO TID [facility] Last Admin: 10/15/23 08:26 Dose: 100 mg Clonazepam (Clonazepam 1 Mg Tablet) 2 mg PO BID [facility] Last Admin: 10/15/23 08:26 Dose: 2 mg Clonidine HCl (Clonidine Hcl 0.1 Mg Tablet) 0.1 mg PO Q4H PRN; Protocol PRN Reason: moderate anxiety Docusate Sodium (Docusate Sodium 100 Mg Capsule) 100 mg PO DAILY PRN PRN Reason: Constipation Doxycycline Monohydrate (Doxycycline Monohydrate 100 Mg Capsule) 100 mg PO BID [facility] Last Admin: 10/15/23 08:26 Dose: 100 mg Hydroxyzine HCl (Hydroxyzine Hcl 25 Mg Tablet) 25 mg PO BID PRN PRN Reason: itch Loperamide HCl (Loperamide Hcl 2 Mg Capsule) 2 mg PO TID [facility] Last Admin: 10/15/23 08:26 Dose: 2 mg Magnesium Hydroxide (Milk Of Magnesia 30 Ml Oral.Susp) 30 ml PO DAILY PRN PRN Reason: Constipation Melatonin (Melatonin 3 Mg Tablet) 6 mg PO BEDTIME PRN PRN Reason: Insomnia Methadone HCl (Methadone Hcl 20 Mg/2 Ml Oral.Conc) 30 mg PO DAILY [facility] Last Admin: 10/15/23 08:26 Dose: 30 mg Mirtazapine (Mirtazapine 15 Mg Tablet) 15 mg PO BEDTIME [facility] Last Admin: 10/14/23 21:02 Dose: 15 mg Nicotine (Nicotine 21 Mg Patch.Td24) 21 mg TRANSDERMA DAILY PRN PRN Reason: nicotine craving Nicotine Polacrilex (Nicotine Polacrilex 2 Mg Gum) 4 mg BUCCAL Q2H PRN PRN Reason: Nicotine Cravings Omeprazole (Omeprazole 20 Mg Capsule.Dr) 20 mg PO DAILY@0630 [facility] Last Admin: 10/15/23 06:21 Dose: Not Given Rivaroxaban (Rivaroxaban 20 Mg Tablet) 20 mg PO DAILY@1800 [facility] Last Admin: 10/14/23 17:34 Dose: 20 mg Trazodone HCl (Trazodone Hcl 50 Mg Tablet) 50 mg PO BEDTIME MRX1 PRN PRN Reason: Insomnia Allergies Allergies Allergy/AdvReac Type Severity Reaction Status Date / Time haloperidol [From Haldol] AdvReac see note Verified 10/09/23 10:18 Assessment & Plan Assessment & Plan (1) Colostomy in place: Status: Acute Code(s): Z93.3 - Colostomy status (2) Ileostomy in place: Status: Acute Code(s): Z93.2 - Ileostomy status Plan Patient is a 48-year-old male with history of depression, opioid/cocaine abuse, Crohn's disease large bowel obstruction due to sigmoid stricture s/p colostomy, multiple psychiatric hospitalizations who presented to the ED for intentional drug overdose. Patient was found unresponsive on the back porch of a stranger's house after having injected cocaine/heroin into his neck. Patient was given Narcan and brought to the hospital. Patient reports that he intentionally overdosed in a suicide attempt following relational strife with his and being kicked out of the house. He was medically admitted and treated for rhabdomyolysis. Patient medically cleared and presents to for psychiatric admission. Patient reports that up until about 5 days ago he was doing well, good mood, taking his medications regularly and remain sober. Patient got into an argument with his , the details of which he did not disclose, and got kicked out of the house. Patient said that this triggered strong emotional response and he relapsed for the past 5 days; with continued depression and falling into despair patient got suicidal and intentionally overdosed on heroin cocaine. Patient remains depressed with intermittent suicidality present; he asks to get on methadone which he was on years ago, saying he needs this initially to help him stay sober and will get off it later on. He is amenable to medication adjustments, increasing antidepressants. Formulation/clinical reasoning: Will continue home medication; patient asking to be started on methadone which he has been on in the past to help him remain sober Continues to have SI though seems mostly related to being discharged to homelessness Will hold off increasing antidepressants for now since patient was on these doses for quite awhile, doing well hospital course: 10/12 Patient more open today. Shares more history. Says his girlfriend from cancer May 06; at that time he was hospitalized. He was doing better for while but got depressed again and was psychiatrically hospitalized at [facility] early this September. When he was discharged she went back to his female friend's house where he had been living in [place] but when he got there she told him he had a move out with little explanation. He said that is when he relapsed once on the street. Patient said because of the [facility] hospitalization he missed his surgical appointment to have his colostomy reversed. His worry is that if he is discharged back to the street, he will again relapse and again miss this important surgery. Patient says suicidality comes and goes but increases when he thinks of being homeless. -patient complained of some discomfort an anal region which resolved on its own after a shower 10/13 still depressed but slowly improving. Agrees to behavioral activation and push himself to attend groups. Increased mirtazapine to 15 mg which he agrees can be increased further if needed. Increasing methadone to 30 mg which he feels should be sufficient for staying sober. 10/14 continue tx. Plan: CV Q 15 minute checks Increase to methadone 30 mg daily; will titrate to 30 mg which patient thinks will be sufficient Continue chlorpromazine 100 mg PO TID Continue clonazepam 2 mg PO BID INCREASED to mirtazapine 15 mg PO BEDTIME; may titrate further for continued depression Added clonidine p.r.n. for anxiety Continue bupropion HCl XL 300 mg daily Continue bupropion HCl XL 150 mg daily melatonin 3 mg PO BEDTIME PRN Continue loperamide 2 mg PO TID Continue Xarelto 20 mg PO DAILY@1800 Continue lansoprazole 30 mg Capsule,Delayed Release(Dr/Ec) daily Continue methenamine mandelate 1 g PO QID Patient educated on: diagnosis, medication risk/benefits, substance abuse and medical condition [facility] surgeon Dr. Myla Shi regarding ostomy: both ileostomy and colostomy in place. Both are viable appearing. Can change ileostomy appliance every 3-4 days and as needed. Empty appliance Q shift and as needed. Can keep the colostomy covered with dry dressing such as allevyn pads or nonwoven sponge, as it is being proximally diverted. He has a very large parastomal hernia at the ileostomy site which is soft and reducible, no current intervention needed. consulted the customer marketing managerFalguni to assist with education and appliance changes. Reason for continued inpatient stay Substantial Risk for: inability to function Time Spent With Patient Time: Total time managing care of this patient today ____ minutes.
[2023-10-15 12:32] VITALS: BP 112/61
[2023-10-15] MEDS: cloNIDine HCL 0.1 MG TABLET PO (12:32)
--- NOTE | 2023-10-15 14:08 | HO.OSTOMY ---
Ostomy Consult: Initial Received consult for difficult to pouch ostomy on - Behavioral Health Unit. ?He had diverting loop Ileostomy unclear on exact creation but chart review reveals reversal was scheduled but patient missed this scheduled surgery due to prior hospitalization at outside facility. ? Patient agreeable to consultation - meet in treatment room patient reports he is not leaking. We began by discussing general knowledge about the Ileostomy and questions he had. ?We discussed opening and closing the ostomy pouch. He reports he is independent with emptying his pouch but not with pouch changes. Given his body habitus after assessment this is likely difficult since he is not able to see his stoma given the location. It is seated within an abdominal fold and he has what appears to be a large hernia in the peristomal field. ?We discussed the importance of emptying pouch when 1/3 to 1/2 full, with an empty Coloplast pouch he performed a demonstration of open and close and report this is the same opening he has prior to hospitalization. He reports he is unsure of the type of brand of pouch but when showed a convex pouch vs a flat wafer he reports he has had to use a convex pouch in the past along with a belt. When asked where he obtained these supplies he reports his last hospital admission - he reports he is unaware of how to obtain supplies while outpt. Will continue to discuss with patient at next assessment / teaching. Home delivery of supplies is not an option at this tushar as the patient reports he is homeless. ? The pouch was noted to have a silent leak was noted ?at the 3 and 9 o'clock area - he observed this sign for future independent observation for s/s of leaking. ?He was agreeable to a pouch change. ? He was educated t change pouch once he observed the leaking to minimize tissue damage. Pouch removed to reveal peristomal MASD (Moisture Associated Skin Damage). This is not surprising given the location of his stoma with in the crease. He will require a convex pouch to minimize risk of leaking and will likely need more frequent pouch changes. He was educated and stressed to empty his pouch regularly as the less the pouch weighs the better change it has of not leaking. ?Peristomal MASD was treated with stoma powder and skin prep. He was changed into a Coloplast [id number], 1 Piece cut to fit (28 oval), Moldable Ring was used, stoma red / pink and miost. ?He observed the pouch change but again was very difficult to see as he required to be flat in order to be able to pouch the stoma given the crease. ?He had questions that led to further discussion. The pouch was completed with a belt application to aid in keeping stoma in place and adherence. ?After the pouch was changed he was able to open close on the pouch attached to his abdomen without coaching. ?He reported having no questions at this time. ?Patient was made aware that myself will return to bedside wednesday for ongoing education. ?All questions and concerns addressed at this time. See below for step by step instruction also left copy of step by step with staff. TT to provider to special order Coloplast Deep Convex pouches #[id number]. Ostomy Pouching Recommendations for Brian Lu ? 1)Remove pouch every 3-4 days. Change sooner if you notice any leaking.? Do not reinforce with tape.? Stoma when lying flat ? Stoma when sitting Patient must lay flat for proper pouch application and adherence. 2)Clean skin around stoma with warm water and soft cloth.? Avoid using soaps or lotions.? Discontinue Adhesive remover. *Soaps can contain aloes/lanolins/extracts which leave film on skin that will interfere with pouch adherence. Pat skin dry. 4) For the red and irritated skin dust with Stomahesive powder, dust off all excess powder, then seal with no sting prep, allow to dry. Powder Skin Prep 5) Prepare products; Cut ostomy pouch we use to approximately 28mm Oval- Use Templates left in patient bin, Coloplast Sen[employer]ura [employer] Deep Convexity #[id number]. ??Provider must special order. 6) Fill the area around the stoma with Moldable Barrier Ring at this time. 7) Remove adhesive paper backing from back of pouch wafer apply Gentle Warm pressure to seal the wafer to his skin.? 8) Complete pouch change with application of Cypress Elastic C strips to allow for added adherence.? Complete with belt application - pt instructed to wear the belt to for added pressure to correct the way the stoma faces.? Patient educated on the belt being to tight and to monitor his skin.?
[2023-10-15] MEDS: Rivaroxaban 20 MG TABLET PO (19:19)
[2023-10-15 20:00] VITALS: BP 124/74; PULSE 81; RESP 16; TEMP 36.4; O2SAT 97
--- NOTE | 2023-10-15 21:27 | PC.NURSE ---
Affect blunted, some passive SI but states can be safe on the unit. Continues to have anxiety around how to arrange logistics for rescheduling his ostomy resection at [facility]. Wound care nurse LM provided ostomy care and replaced the bag, ring, etc. She left written step by step directions in his supply box in the med room. Med compliant, appetite good.
[2023-10-15] MEDS: Mirtazapine 15 MG TABLET PO (22:05)
[2023-10-16 08:00] VITALS: BP 130/63; PULSE 81; RESP 18; TEMP 36.4; O2SAT 95
[2023-10-16] MEDS: chlorproMAZINE HCl 100 MG TABLET PO ×3 (09:24→23:05)
[2023-10-16] MEDS: Doxycycline Monohydrate 100 MG CAPSULE PO ×2 (09:24→23:04)
[2023-10-16] MEDS: buPROPion HCl XL 300 MG TAB.ER.24H PO (09:25)
[2023-10-16] MEDS: methADONE HCl 20 MG/2 ML ORAL.CONC 30 MG PO (09:25)
[2023-10-16] MEDS: Loperamide HCl 2 MG CAPSULE PO ×3 (09:25→23:04)
[2023-10-16] MEDS: clonazePAM 1 MG TABLET 2 MG PO ×2 (09:25→23:04)
[2023-10-16] MEDS: Omeprazole 20 MG CAPSULE.DR PO (09:25)
[2023-10-16] MEDS: buPROPion HCl XL 150 MG TAB.ER.24H PO (09:25)
[2023-10-16] MEDS: hydrOXYzine HCL 25 MG TABLET PO (14:05)
[2023-10-16] MEDS: Rivaroxaban 20 MG TABLET PO (18:14)
--- NOTE | 2023-10-16 18:27 | P.PNPSI_ITS ---
Subjective Subjective Date of Service: 10/16/23 Reason For Visit: opiate overdose with suicidal intent Interim History: Pt slept through the night. Pt continues to report depression aand anxiety. He denies plan or intent to harm himself but reports he feels very depressed. He thinks maybe a bit better. His affect is very flat, somewhat irritable. He is taking medications as prescribed. No behavioral concerns. He is visible on the unit, social with peers. Review of Systems Constitutional: Denies chills and Denies fever(s) Gastrointestinal: Denies abdominal pain, Denies nausea and Denies vomiting Skin/Breast: Denies rash Mental Status Exam Mental Status Exam Narrative: Pt is alert and oriented; behavior is cooperative, calm; patient is not in distress; dressed in hospital attire, overall adequately groomed;; mood is described as depressed and affect congruent, downcast; eye contact appropriate; Speech is soft and slow; psychomotor retardation present; thought process is organized and goal directed; Thought content is on psychosocial stressors, tx; otherwise pertinent to relevant topics and without any delusional content, paranoid ideations or grandiosity; no SI; no HI. Denies AVH and There is no evidence of perceptual disturbance. Patients insight and judgment fair Diagnostics Vital Signs (24Hr): Vital Signs - 24 hr 10/15/23 20:00 10/16/23 08:00 Temperature 97.6 F 97.5 F Pulse Rate 81 81 Respiratory Rate 16 18 Blood Pressure 124/74 130/63 Pulse Oximetry 97 95 Oxygen Delivery Method Room Air Room Air BMI result Body Mass Index 26.5 Medications Medications Current Medications Acetaminophen (Acetaminophen 325 Mg Tablet) 650 mg PO Q6H PRN PRN Reason: Headache/Pain Mild Scale (1-3) Al Hydroxide/Mg Hydroxide (Magnesium Hydrox/Alum Hydrox 30 Ml Oral.Susp) 30 ml PO Q6H PRN PRN Reason: Heartburn/Nausea Benzonatate (Benzonatate 100 Mg Capsule) 100 mg PO TID PRN PRN Reason: Cough Bupropion HCl (Bupropion Hcl Xl 300 Mg Tab.Er.24h) 300 mg PO DAILY [facility] Last Admin: 10/16/23 09:25 Dose: 300 mg Bupropion HCl (Bupropion Hcl Xl 150 Mg Tab.Er.24h) 150 mg PO DAILY [facility] Last Admin: 10/16/23 09:25 Dose: 150 mg Chlorpromazine HCl (Chlorpromazine Hcl 100 Mg Tablet) 100 mg PO TID [facility] Last Admin: 10/16/23 14:06 Dose: 100 mg Clonazepam (Clonazepam 1 Mg Tablet) 2 mg PO BID [facility] Last Admin: 10/16/23 09:25 Dose: 2 mg Clonidine HCl (Clonidine Hcl 0.1 Mg Tablet) 0.1 mg PO Q4H PRN; Protocol PRN Reason: moderate anxiety Last Admin: 10/15/23 12:32 Dose: 0.1 mg Docusate Sodium (Docusate Sodium 100 Mg Capsule) 100 mg PO DAILY PRN PRN Reason: Constipation Doxycycline Monohydrate (Doxycycline Monohydrate 100 Mg Capsule) 100 mg PO BID [facility] Last Admin: 10/16/23 09:24 Dose: 100 mg Hydroxyzine HCl (Hydroxyzine Hcl 25 Mg Tablet) 25 mg PO BID PRN PRN Reason: itch Last Admin: 10/16/23 14:05 Dose: 25 mg Loperamide HCl (Loperamide Hcl 2 Mg Capsule) 2 mg PO TID [facility] Last Admin: 10/16/23 14:06 Dose: 2 mg Magnesium Hydroxide (Milk Of Magnesia 30 Ml Oral.Susp) 30 ml PO DAILY PRN PRN Reason: Constipation Melatonin (Melatonin 3 Mg Tablet) 6 mg PO BEDTIME PRN PRN Reason: Insomnia Methadone HCl (Methadone Hcl 20 Mg/2 Ml Oral.Conc) 30 mg PO DAILY [facility] Last Admin: 10/16/23 09:25 Dose: 30 mg Mirtazapine (Mirtazapine 15 Mg Tablet) 15 mg PO BEDTIME [facility] Last Admin: 10/15/23 22:05 Dose: 15 mg Nicotine (Nicotine 21 Mg Patch.Td24) 21 mg TRANSDERMA DAILY PRN PRN Reason: nicotine craving Nicotine Polacrilex (Nicotine Polacrilex 2 Mg Gum) 4 mg BUCCAL Q2H PRN PRN Reason: Nicotine Cravings Omeprazole (Omeprazole 20 Mg Capsule.Dr) 20 mg PO DAILY@0630 [facility] Last Admin: 10/16/23 09:25 Dose: 20 mg Rivaroxaban (Rivaroxaban 20 Mg Tablet) 20 mg PO DAILY@1800 [facility] Last Admin: 10/16/23 18:14 Dose: 20 mg Trazodone HCl (Trazodone Hcl 50 Mg Tablet) 50 mg PO BEDTIME MRX1 PRN PRN Reason: Insomnia Allergies Allergies Allergy/AdvReac Type Severity Reaction Status Date / Time haloperidol [From Haldol] AdvReac see note Verified 10/09/23 10:18 Assessment & Plan Assessment & Plan (1) Colostomy in place: Status: Acute Code(s): Z93.3 - Colostomy status (2) Ileostomy in place: Status: Acute Code(s): Z93.2 - Ileostomy status Plan Patient is a 48-year-old male with history of depression, opioid/cocaine abuse, Crohn's disease large bowel obstruction due to sigmoid stricture s/p colostomy, multiple psychiatric hospitalizations who presented to the ED for intentional drug overdose. Patient was found unresponsive on the back porch of a stranger's house after having injected cocaine/heroin into his neck. Patient was given Narcan and brought to the hospital. Patient reports that he intentionally overdosed in a suicide attempt following relational strife with his and being kicked out of the house. He was medically admitted and treated for rhabdomyolysis. Patient medically cleared and presents to for psychiatric admission. Patient reports that up until about 5 days ago he was doing well, good mood, taking his medications regularly and remain sober. Patient got into an argument with his , the details of which he did not disclose, and got kicked out of the house. Patient said that this triggered strong emotional response and he relapsed for the past 5 days; with continued depression and falling into despair patient got suicidal and intentionally overdosed on heroin cocaine. Patient remains depressed with intermittent suicidality present; he asks to get on methadone which he was on years ago, saying he needs this initially to help him stay sober and will get off it later on. He is amenable to medication adjustments, increasing antidepressants. Formulation/clinical reasoning: Will continue home medication; patient asking to be started on methadone which he has been on in the past to help him remain sober Continues to have SI though seems mostly related to being discharged to homelessness Will hold off increasing antidepressants for now since patient was on these doses for quite awhile, doing well hospital course: 10/12 Patient more open today. Shares more history. Says his girlfriend from cancer May 06; at that time he was hospitalized. He was doing better for while but got depressed again and was psychiatrically hospitalized at [facility] early this September. When he was discharged she went back to his female friend's house where he had been living in [place] but when he got there she told him he had a move out with little explanation. He said that is when he relapsed once on the street. Patient said because of the [facility] hospitalization he missed his surgical appointment to have his colostomy reversed. His worry is that if he is discharged back to the street, he will again relapse and again miss this important surgery. Patient says suicidality comes and goes but increases when he thinks of being homeless. -patient complained of some discomfort an anal region which resolved on its own after a shower 10/13 still depressed but slowly improving. Agrees to behavioral activation and push himself to attend groups. Increased mirtazapine to 15 mg which he agrees can be increased further if needed. Increasing methadone to 30 mg which he feels should be sufficient for staying sober. 10/14 continue tx. 10/15 continue tx Plan: CV Q 15 minute checks Increase to methadone 30 mg daily; will titrate to 30 mg which patient thinks will be sufficient Continue chlorpromazine 100 mg PO TID Continue clonazepam 2 mg PO BID INCREASED to mirtazapine 15 mg PO BEDTIME; may titrate further for continued depression Added clonidine p.r.n. for anxiety Continue bupropion HCl XL 300 mg daily Continue bupropion HCl XL 150 mg daily melatonin 3 mg PO BEDTIME PRN Continue loperamide 2 mg PO TID Continue Xarelto 20 mg PO DAILY@1800 Continue lansoprazole 30 mg Capsule,Delayed Release(Dr/Ec) daily Continue methenamine mandelate 1 g PO QID Patient educated on: diagnosis, medication risk/benefits, substance abuse and medical condition [facility] surgeon Dr. Myla Shi regarding ostomy: both ileostomy and colostomy in place. Both are viable appearing. Can change ileostomy appliance every 3-4 days and as needed. Empty appliance Q shift and as needed. Can keep the colostomy covered with dry dressing such as allevyn pads or nonwoven sponge, as it is being proximally diverted. He has a very large parastomal hernia at the ileostomy site which is soft and reducible, no current intervention needed. consulted the storage consultantFalguni to assist with education and appliance changes. Reason for continued inpatient stay Substantial Risk for: harm to self and inability to function Time Spent With Patient Time: Total time managing care of this patient today ____ minutes.
[2023-10-16 20:00] VITALS: BP 126/59; PULSE 70; RESP 18; TEMP 36.5; O2SAT 97
[2023-10-16] MEDS: Mirtazapine 15 MG TABLET PO (23:04)
[2023-10-17 08:00] VITALS: BP 113/62; PULSE 76; RESP 16; TEMP 36.9; O2SAT 94
[2023-10-17] MEDS: Omeprazole 20 MG CAPSULE.DR PO (09:21)
[2023-10-17] MEDS: clonazePAM 1 MG TABLET 2 MG PO ×2 (09:22→20:52)
[2023-10-17] MEDS: buPROPion HCl XL 150 MG TAB.ER.24H PO (09:22)
[2023-10-17] MEDS: chlorproMAZINE HCl 100 MG TABLET PO ×3 (09:22→20:52)
[2023-10-17] MEDS: Loperamide HCl 2 MG CAPSULE PO ×3 (09:23→20:52)
[2023-10-17] MEDS: buPROPion HCl XL 300 MG TAB.ER.24H PO (09:23)
[2023-10-17] MEDS: Doxycycline Monohydrate 100 MG CAPSULE PO ×2 (09:23→20:52)
[2023-10-17] MEDS: methADONE HCl 20 MG/2 ML ORAL.CONC 30 MG PO (09:23)
--- NOTE | 2023-10-17 17:04 | HO.PSYCHPN ---
Subjective Subjective Date of Service: 10/17/23 Reason For Visit: opiate overdose with suicidal intent Interim History: Pt slept through the night. Pt continues to report depression aand anxiety. He denies plan or intent to harm himself but reports he feels very depressed. Reports auditory hallucinations specifically saying bad things about him. very critical of him;He is taking medications as prescribed. No behavioral concerns. He is visible on the unit, social with peers. nursing reports he slept through the night Medication Compliance: Yes Side effects from medications: No Attending Groups: Intermittent Review of Systems Acute medical concerns: No Medical Review of Systems: unchanged Review of Systems Constitutional: Denies chills and Denies fever(s) Gastrointestinal: Denies abdominal pain, Denies nausea and Denies vomiting Skin/Breast: Denies rash Mental Status Exam Mental Status Exam Narrative: Pt is alert and oriented; behavior is cooperative, calm; patient is not in distress; dressed casually, overall adequately groomed;; mood is described as depressed and affect congruent, downcast; eye contact appropriate; Speech is soft and slow; psychomotor retardation present; thought process is organized and goal directed; Thought content is on psychosocial stressors, tx; otherwise pertinent to relevant topics and without any delusional content, paranoid ideations or grandiosity; no SI; no HI. Denies AVH and There is no evidence of perceptual disturbance. Patients insight and judgment fair Diagnostics Vital Signs (24Hr): Vital Signs - 24 hr 10/16/23 20:00 10/17/23 08:00 Temperature 97.7 F 98.4 F Pulse Rate 70 76 Respiratory Rate 18 16 Blood Pressure 126/59 L 113/62 Pulse Oximetry 97 94 Oxygen Delivery Method Room Air Room Air BMI result Body Mass Index 26.5 Medications Medications Current Medications Acetaminophen (Acetaminophen 325 Mg Tablet) 650 mg PO Q6H PRN PRN Reason: Headache/Pain Mild Scale (1-3) Al Hydroxide/Mg Hydroxide (Magnesium Hydrox/Alum Hydrox 30 Ml Oral.Susp) 30 ml PO Q6H PRN PRN Reason: Heartburn/Nausea Benzonatate (Benzonatate 100 Mg Capsule) 100 mg PO TID PRN PRN Reason: Cough Bupropion HCl (Bupropion Hcl Xl 300 Mg Tab.Er.24h) 300 mg PO DAILY [facility] Last Admin: 10/17/23 09:23 Dose: 300 mg Bupropion HCl (Bupropion Hcl Xl 150 Mg Tab.Er.24h) 150 mg PO DAILY [facility] Last Admin: 10/17/23 09:22 Dose: 150 mg Chlorpromazine HCl (Chlorpromazine Hcl 100 Mg Tablet) 100 mg PO TID [facility] Last Admin: 10/17/23 15:30 Dose: 100 mg Clonazepam (Clonazepam 1 Mg Tablet) 2 mg PO BID [facility] Last Admin: 10/17/23 09:22 Dose: 2 mg Clonidine HCl (Clonidine Hcl 0.1 Mg Tablet) 0.1 mg PO Q4H PRN; Protocol PRN Reason: moderate anxiety Last Admin: 10/15/23 12:32 Dose: 0.1 mg Docusate Sodium (Docusate Sodium 100 Mg Capsule) 100 mg PO DAILY PRN PRN Reason: Constipation Doxycycline Monohydrate (Doxycycline Monohydrate 100 Mg Capsule) 100 mg PO BID [facility] Last Admin: 10/17/23 09:23 Dose: 100 mg Hydroxyzine HCl (Hydroxyzine Hcl 25 Mg Tablet) 25 mg PO BID PRN PRN Reason: itch Last Admin: 10/16/23 14:05 Dose: 25 mg Loperamide HCl (Loperamide Hcl 2 Mg Capsule) 2 mg PO TID [facility] Last Admin: 10/17/23 15:30 Dose: 2 mg Magnesium Hydroxide (Milk Of Magnesia 30 Ml Oral.Susp) 30 ml PO DAILY PRN PRN Reason: Constipation Melatonin (Melatonin 3 Mg Tablet) 6 mg PO BEDTIME PRN PRN Reason: Insomnia Methadone HCl (Methadone Hcl 20 Mg/2 Ml Oral.Conc) 30 mg PO DAILY [facility] Last Admin: 10/17/23 09:23 Dose: 30 mg Mirtazapine (Mirtazapine 15 Mg Tablet) 15 mg PO BEDTIME [facility] Last Admin: 10/16/23 23:04 Dose: 15 mg Nicotine (Nicotine 21 Mg Patch.Td24) 21 mg TRANSDERMA DAILY PRN PRN Reason: nicotine craving Nicotine Polacrilex (Nicotine Polacrilex 2 Mg Gum) 4 mg BUCCAL Q2H PRN PRN Reason: Nicotine Cravings Omeprazole (Omeprazole 20 Mg Capsule.Dr) 20 mg PO DAILY@0630 [facility] Last Admin: 10/17/23 09:21 Dose: 20 mg Rivaroxaban (Rivaroxaban 20 Mg Tablet) 20 mg PO DAILY@1800 [facility] Last Admin: 10/16/23 18:14 Dose: 20 mg Trazodone HCl (Trazodone Hcl 50 Mg Tablet) 50 mg PO BEDTIME MRX1 PRN PRN Reason: Insomnia Allergies Allergies Allergy/AdvReac Type Severity Reaction Status Date / Time haloperidol [From Haldol] AdvReac see note Verified 10/09/23 10:18 Assessment & Plan Assessment & Plan (1) Colostomy in place: Status: Acute Code(s): Z93.3 - Colostomy status (2) Ileostomy in place: Status: Acute Code(s): Z93.2 - Ileostomy status (3) MDD (major depressive disorder), recurrent, severe, with psychosis: Status: Acute Code(s): F33.3 - Major depressive disorder, recurrent, severe with psychotic symptoms Plan Patient is a 48-year-old male with history of depression, opioid/cocaine abuse, Crohn's disease large bowel obstruction due to sigmoid stricture s/p colostomy, multiple psychiatric hospitalizations who presented to the ED for intentional drug overdose. Patient was found unresponsive on the back porch of a stranger's house after having injected cocaine/heroin into his neck. Patient was given Narcan and brought to the hospital. Patient reports that he intentionally overdosed in a suicide attempt following relational strife with his and being kicked out of the house. He was medically admitted and treated for rhabdomyolysis. Patient medically cleared and presents to for psychiatric admission. Patient reports that up until about 5 days ago he was doing well, good mood, taking his medications regularly and remain sober. Patient got into an argument with his , the details of which he did not disclose, and got kicked out of the house. Patient said that this triggered strong emotional response and he relapsed for the past 5 days; with continued depression and falling into despair patient got suicidal and intentionally overdosed on heroin cocaine. Patient remains depressed with intermittent suicidality present; he asks to get on methadone which he was on years ago, saying he needs this initially to help him stay sober and will get off it later on. He is amenable to medication adjustments, increasing antidepressants. Formulation/clinical reasoning: Will continue home medication; patient asking to be started on methadone which he has been on in the past to help him remain sober Continues to have SI though seems mostly related to being discharged to homelessness Will hold off increasing antidepressants for now since patient was on these doses for quite awhile, doing well hospital course: 10/12 Patient more open today. Shares more history. Says his girlfriend from cancer May 06; at that time he was hospitalized. He was doing better for while but got depressed again and was psychiatrically hospitalized at [facility] early this September. When he was discharged she went back to his female friend's house where he had been living in [place] but when he got there she told him he had a move out with little explanation. He said that is when he relapsed once on the street. Patient said because of the [facility] hospitalization he missed his surgical appointment to have his colostomy reversed. His worry is that if he is discharged back to the street, he will again relapse and again miss this important surgery. Patient says suicidality comes and goes but increases when he thinks of being homeless. -patient complained of some discomfort an anal region which resolved on its own after a shower 10/13 still depressed but slowly improving. Agrees to behavioral activation and push himself to attend groups. Increased mirtazapine to 15 mg which he agrees can be increased further if needed. Increasing methadone to 30 mg which he feels should be sufficient for staying sober. 10/14 continue tx. 10/15 continue tx 10/16 continue tx plan Plan: CV Q 15 minute checks Increase to methadone 30 mg daily; will titrate to 30 mg which patient thinks will be sufficient Continue chlorpromazine 100 mg PO TID Continue clonazepam 2 mg PO BID INCREASED to mirtazapine 15 mg PO BEDTIME; may titrate further for continued depression Added clonidine p.r.n. for anxiety Continue bupropion HCl XL 300 mg daily Continue bupropion HCl XL 150 mg daily melatonin 3 mg PO BEDTIME PRN Continue loperamide 2 mg PO TID Continue Xarelto 20 mg PO DAILY@1800 Continue lansoprazole 30 mg Capsule,Delayed Release(Dr/Ec) daily Continue methenamine mandelate 1 g PO QID Patient educated on: diagnosis, medication risk/benefits, substance abuse and medical condition [facility] surgeon Dr. Myla Shi regarding ostomy: both ileostomy and colostomy in place. Both are viable appearing. Can change ileostomy appliance every 3-4 days and as needed. Empty appliance Q shift and as needed. Can keep the colostomy covered with dry dressing such as allevyn pads or nonwoven sponge, as it is being proximally diverted. He has a very large parastomal hernia at the ileostomy site which is soft and reducible, no current intervention needed. consulted the manager starFalguni to assist with education and appliance changes. Reason for continued inpatient stay Substantial Risk for: harm to self and inability to function Time Spent With Patient Time: Total time managing care of this patient today ____ minutes.
[2023-10-17] MEDS: Rivaroxaban 20 MG TABLET PO (17:49)
[2023-10-17 20:00] VITALS: BP 119/62; PULSE 79; RESP 18; TEMP 36.8; O2SAT 95
[2023-10-17] MEDS: hydrOXYzine HCL 25 MG TABLET PO (20:52)
[2023-10-17] MEDS: Mirtazapine 15 MG TABLET PO (20:52)
[2023-10-18 08:00] VITALS: BP 102/57; PULSE 72; RESP 18; TEMP 36.8; O2SAT 95
[2023-10-18] MEDS: methADONE HCl 20 MG/2 ML ORAL.CONC 30 MG PO (08:16)
[2023-10-18] MEDS: clonazePAM 1 MG TABLET 2 MG PO (08:17)
[2023-10-18] MEDS: Doxycycline Monohydrate 100 MG CAPSULE PO ×2 (08:17→20:42)
[2023-10-18] MEDS: chlorproMAZINE HCl 100 MG TABLET PO ×3 (08:18→20:43)
[2023-10-18] MEDS: buPROPion HCl XL 300 MG TAB.ER.24H PO (08:18)
[2023-10-18] MEDS: buPROPion HCl XL 150 MG TAB.ER.24H PO (08:18)
[2023-10-18] MEDS: Omeprazole 20 MG CAPSULE.DR PO (08:18)
[2023-10-18] MEDS: Loperamide HCl 2 MG CAPSULE PO ×3 (08:18→20:43)
--- NOTE | 2023-10-18 09:31 | HO.PSYCHPN ---
Subjective Subjective Date of Service: 10/18/23 Reason For Visit: opiate overdose with suicidal intent Interim History: met with patient; discussed with team; reviewed chart Patient reports that he is overall fine though agrees to increase mirtazapine further since depression lingers. He was much encouraged however to know that he has a new appointment with his outpatient surgeon which he very much wants to attend this Wednesday. He remains worried about relapse and asked for methadone to be increased further to 40 mg as he still has some cravings. Patient has some anxiety about discharging before being in a program but does not want to miss this opportunity for surgical appointment. Mental Status Exam Mental Status Exam Narrative: Pt is alert and oriented; behavior is cooperative, calm; patient is not in distress; dressed casually, overall adequately groomed;; mood is described as fine and affect congruent, downcast; eye contact appropriate; Speech is soft and slow; some psychomotor retardation present; thought process is organized and goal directed; Thought content is on psychosocial stressors, tx; otherwise pertinent to relevant topics and without any delusional content, paranoid ideations or grandiosity; no SI; no HI. Denies AVH and There is no evidence of perceptual disturbance. Patients insight and judgment fair Diagnostics Vital Signs (24Hr): Vital Signs - 24 hr 10/17/23 20:00 10/18/23 08:00 Temperature 98.2 F 98.3 F Pulse Rate 79 72 Respiratory Rate 18 18 Blood Pressure 119/62 102/57 L Pulse Oximetry 95 95 Oxygen Delivery Method Room Air Room Air BMI result Body Mass Index 26.5 Medications Medications Current Medications Acetaminophen (Acetaminophen 325 Mg Tablet) 650 mg PO Q6H PRN PRN Reason: Headache/Pain Mild Scale (1-3) Al Hydroxide/Mg Hydroxide (Magnesium Hydrox/Alum Hydrox 30 Ml Oral.Susp) 30 ml PO Q6H PRN PRN Reason: Heartburn/Nausea Benzonatate (Benzonatate 100 Mg Capsule) 100 mg PO TID PRN PRN Reason: Cough Bupropion HCl (Bupropion Hcl Xl 300 Mg Tab.Er.24h) 300 mg PO DAILY [facility] Last Admin: 10/18/23 08:18 Dose: 300 mg Bupropion HCl (Bupropion Hcl Xl 150 Mg Tab.Er.24h) 150 mg PO DAILY [facility] Last Admin: 10/18/23 08:18 Dose: 150 mg Chlorpromazine HCl (Chlorpromazine Hcl 100 Mg Tablet) 100 mg PO TID [facility] Last Admin: 10/18/23 08:18 Dose: 100 mg Clonazepam (Clonazepam 1 Mg Tablet) 2 mg PO BID [facility] Last Admin: 10/18/23 08:17 Dose: 2 mg Clonidine HCl (Clonidine Hcl 0.1 Mg Tablet) 0.1 mg PO Q4H PRN; Protocol PRN Reason: moderate anxiety Last Admin: 10/15/23 12:32 Dose: 0.1 mg Docusate Sodium (Docusate Sodium 100 Mg Capsule) 100 mg PO DAILY PRN PRN Reason: Constipation Doxycycline Monohydrate (Doxycycline Monohydrate 100 Mg Capsule) 100 mg PO BID [facility] Last Admin: 10/18/23 08:17 Dose: 100 mg Hydroxyzine HCl (Hydroxyzine Hcl 25 Mg Tablet) 25 mg PO BID PRN PRN Reason: itch Last Admin: 10/17/23 20:52 Dose: 25 mg Loperamide HCl (Loperamide Hcl 2 Mg Capsule) 2 mg PO TID [facility] Last Admin: 10/18/23 08:18 Dose: 2 mg Magnesium Hydroxide (Milk Of Magnesia 30 Ml Oral.Susp) 30 ml PO DAILY PRN PRN Reason: Constipation Melatonin (Melatonin 3 Mg Tablet) 6 mg PO BEDTIME PRN PRN Reason: Insomnia Methadone HCl (Methadone Hcl 20 Mg/2 Ml Oral.Conc) 30 mg PO DAILY [facility] Last Admin: 10/18/23 08:16 Dose: 30 mg Mirtazapine (Mirtazapine 15 Mg Tablet) 15 mg PO BEDTIME [facility] Last Admin: 10/17/23 20:52 Dose: 15 mg Nicotine (Nicotine 21 Mg Patch.Td24) 21 mg TRANSDERMA DAILY PRN PRN Reason: nicotine craving Nicotine Polacrilex (Nicotine Polacrilex 2 Mg Gum) 4 mg BUCCAL Q2H PRN PRN Reason: Nicotine Cravings Omeprazole (Omeprazole 20 Mg Capsule.Dr) 20 mg PO DAILY@0630 [facility] Last Admin: 10/18/23 08:18 Dose: 20 mg Rivaroxaban (Rivaroxaban 20 Mg Tablet) 20 mg PO DAILY@1800 [facility] Last Admin: 10/17/23 17:49 Dose: 20 mg Trazodone HCl (Trazodone Hcl 50 Mg Tablet) 50 mg PO BEDTIME MRX1 PRN PRN Reason: Insomnia Allergies Allergies Allergy/AdvReac Type Severity Reaction Status Date / Time haloperidol [From Haldol] AdvReac see note Verified 10/09/23 10:18 Assessment & Plan Assessment & Plan (1) Colostomy in place: Status: Acute Code(s): Z93.3 - Colostomy status (2) Ileostomy in place: Status: Acute Code(s): Z93.2 - Ileostomy status Plan Patient is a 48-year-old male with history of depression, opioid/cocaine abuse, Crohn's disease large bowel obstruction due to sigmoid stricture s/p colostomy, multiple psychiatric hospitalizations who presented to the ED for intentional drug overdose. Patient was found unresponsive on the back porch of a stranger's house after having injected cocaine/heroin into his neck. Patient was given Narcan and brought to the hospital. Patient reports that he intentionally overdosed in a suicide attempt following relational strife with his and being kicked out of the house. He was medically admitted and treated for rhabdomyolysis. Patient medically cleared and presents to for psychiatric admission. Patient reports that up until about 5 days ago he was doing well, good mood, taking his medications regularly and remain sober. Patient got into an argument with his , the details of which he did not disclose, and got kicked out of the house. Patient said that this triggered strong emotional response and he relapsed for the past 5 days; with continued depression and falling into despair patient got suicidal and intentionally overdosed on heroin cocaine. Patient remains depressed with intermittent suicidality present; he asks to get on methadone which he was on years ago, saying he needs this initially to help him stay sober and will get off it later on. He is amenable to medication adjustments, increasing antidepressants. Formulation/clinical reasoning: Will continue home medication; patient asking to be started on methadone which he has been on in the past to help him remain sober Continues to have SI though seems mostly related to being discharged to homelessness Will hold off increasing antidepressants for now since patient was on these doses for quite awhile, doing well hospital course: 10/12 Patient more open today. Shares more history. Says his girlfriend from cancer May 06; at that time he was hospitalized. He was doing better for while but got depressed again and was psychiatrically hospitalized at [facility] early this September. When he was discharged she went back to his female friend's house where he had been living in [place] but when he got there she told him he had a move out with little explanation. He said that is when he relapsed once on the street. Patient said because of the [facility] hospitalization he missed his surgical appointment to have his colostomy reversed. His worry is that if he is discharged back to the street, he will again relapse and again miss this important surgery. Patient says suicidality comes and goes but increases when he thinks of being homeless. -patient complained of some discomfort an anal region which resolved on its own after a shower 10/13 still depressed but slowly improving. Agrees to behavioral activation and push himself to attend groups. Increased mirtazapine to 15 mg which he agrees can be increased further if needed. Increasing methadone to 30 mg which he feels should be sufficient for staying sober. 10/14 continue tx. 10/15 continue tx 10/17 increase Remeron to 30 mg; has outpatient appointment with surgical team WednesdayOctober 21 which he wants to attend. Plan: CV Q 15 minute checks Increase to methadone 30 mg daily; will titrate to 30 mg which patient thinks will be sufficient Continue chlorpromazine 100 mg PO TID Continue clonazepam 2 mg PO BID INCREASED to mirtazapine 30mg PO BEDTIME; may titrate further for continued depression Added clonidine p.r.n. for anxiety Continue bupropion HCl XL 300 mg daily Continue bupropion HCl XL 150 mg daily melatonin 3 mg PO BEDTIME PRN Continue loperamide 2 mg PO TID Continue Xarelto 20 mg PO DAILY@1800 Continue lansoprazole 30 mg Capsule,Delayed Release(Dr/Ec) daily Continue methenamine mandelate 1 g PO QID Patient educated on: diagnosis, medication risk/benefits, substance abuse and medical condition [facility] surgeon Dr. Myla Shi regarding ostomy: both ileostomy and colostomy in place. Both are viable appearing. Can change ileostomy appliance every 3-4 days and as needed. Empty appliance Q shift and as needed. Can keep the colostomy covered with dry dressing such as allevyn pads or nonwoven sponge, as it is being proximally diverted. He has a very large parastomal hernia at the ileostomy site which is soft and reducible, no current intervention needed. consulted the web pressmanFalguni to assist with education and appliance changes. Patient educated on: diagnosis, medication risk/benefits and medical condition Informed Consent: understands Reason for continued inpatient stay Substantial Risk for: stable for discharge Time Spent With Patient Time: Total time managing care of this patient today ____ minutes.
[2023-10-18] MEDS: Mineral Oil/Petrolatum,White 106 GM Tube 1 APPL TOPICAL ×2 (10:58→16:06)
--- NOTE | 2023-10-18 13:43 | HO.OSTOMY ---
Ostomy Consult: Follow up Follow up consult for difficult to pouch ostomy on M5 - Behavioral Health Unit. ?He had diverting loop Ileostomy unclear on exact creation but chart review reveals reversal was scheduled but patient missed this scheduled surgery due to prior hospitalization at outside facility. ? Patient agreeable to consultation - meet in treatment room patient is chong affect today with minimal interaction throughout the pouch change - opportunities taken to reinforce teaching unclear if patient was listening at times. The pouch was changed last at my visit on Wednesday - there was lifting noted at 3 oclock location but not leaking noted. The peristomal skin is much improved visibly and comfort per pt report. No new topical recommendations needed continue listed below pouching directions, starting with powder and skin prep. He was changed into a Coloplast [id number], 1 Piece cut to fit (28 oval), Moldable Ring was used, stoma red / pink and moist. ?He had difficulty observeing the pouch change due to its location. The pouch was completed with a belt application to aid in keeping stoma in place and adherence - note belt was in palce when patient arrived and he reports he wore since application on Wednesday. ?After the pouch was changed he was able to open close on the pouch attached to his abdomen without coaching. ?He reported having no questions at this time. ?Patient was made aware that myself will return to bedside later in the week for ongoing education. ?All questions and concerns addressed at this time. See below for step by step instruction also left copy of step by step with staff. Of note last visit the patients abdomen was shaved for long hair removal that was likely impacting his pouch adherence. Improved Peristomal MASD Confirmed via email with unit Mgr that appropriate convex pouches were ordered, should arrive tomorrow per purchasing. Todays assessment Ostomy Pouching Recommendations for Brian Lu ? 1)Remove pouch every 3-4 days. Change sooner if you notice any leaking.? Do not reinforce with tape.? Stoma when lying flat ? Stoma when sitting Patient must lay flat for proper pouch application and adherence. 2)Clean skin around stoma with warm water and soft cloth.? Avoid using soaps or lotions.? Discontinue Adhesive remover. *Soaps can contain aloes/lanolins/extracts which leave film on skin that will interfere with pouch adherence. Pat skin dry. 4) For the red and irritated skin dust with Stomahesive powder, dust off all excess powder, then seal with no sting prep, allow to dry. Powder Skin Prep 5) Prepare products; Cut ostomy pouch we use to approximately 28mm Oval- Use Templates left in patient bin, Coloplast SenSura Oneill Deep Convexity #[id number]. ??Provider must special order. 6) Fill the area around the stoma with Moldable Barrier Ring at this time. 7) Remove adhesive paper backing from back of pouch wafer apply Gentle Warm pressure to seal the wafer to his skin.? 8) Complete pouch change with application of Adolphus Elastic C strips to allow for added adherence.? Complete with belt application - pt instructed to wear the belt to for added pressure to correct the way the stoma faces.? Patient educated on the belt being to tight and to monitor his skin.?
--- NOTE | 2023-10-18 13:52 | HO.WOUND ---
Wound Consult: Initial 48yr old?[place] [facility] [place] to [place] health unit - See progress notes and H&P for detailed history.? While working with patient for ostomy care - direct care nurse requested left Old Colostomy site assessment. Foam dressing in palce - removed and tissue assessed for loose slough easily removed with cleansing. Recommend cover with Durafiber AG followed by foam dressing and continue outpt follow up with GI surgeon for continued assessment. Direct care team should monitor for s/s of infection and report to provider. ? Recommendations: 1. Left Old Colostomy Site / Abdomen - Cleanse with NS, pat dry. Apply cut to size Durafiber AG followed by Foam dressing. Change every 3 days and PRN. Monitor for s/s or infection and report to provider. Re-consult wound care Nurse for wound deterioration or wound changes.
[2023-10-18] MEDS: Acetaminophen 325 MG TABLET 650 MG PO (16:05)
[2023-10-18] MEDS: Rivaroxaban 20 MG TABLET PO (17:12)
[2023-10-18 20:00] VITALS: BP 114/56; PULSE 77; RESP 16; TEMP 36.4; O2SAT 95
[2023-10-18] MEDS: Mirtazapine 30 MG TABLET PO (20:42)
[2023-10-18] MEDS: clonazePAM 0.5 MG TABLET 1.5 MG PO (20:43)
[2023-10-18] MEDS: traZODone HCL 50 MG TABLET PO (20:43)
[2023-10-19 08:00] VITALS: BP 111/65; PULSE 83; RESP 18; TEMP 36.4; O2SAT 95
[2023-10-19] MEDS: Mineral Oil/Petrolatum,White 106 GM Tube 1 APPL TOPICAL ×2 (08:42→14:50)
[2023-10-19] MEDS: methADONE HCl 20 MG/2 ML ORAL.CONC 40 MG PO (08:42)
[2023-10-19] MEDS: buPROPion HCl XL 150 MG TAB.ER.24H PO (08:43)
[2023-10-19] MEDS: clonazePAM 0.5 MG TABLET 1.5 MG PO (08:43)
[2023-10-19] MEDS: chlorproMAZINE HCl 100 MG TABLET PO ×3 (08:43→20:53)
[2023-10-19] MEDS: buPROPion HCl XL 300 MG TAB.ER.24H PO (08:43)
[2023-10-19] MEDS: Doxycycline Monohydrate 100 MG CAPSULE PO ×2 (08:43→20:54)
[2023-10-19] MEDS: Omeprazole 20 MG CAPSULE.DR PO (08:43)
[2023-10-19] MEDS: Loperamide HCl 2 MG CAPSULE PO ×3 (08:44→20:54)
[2023-10-19] MEDS: buPROPion HCL 75 MG TABLET PO (14:50)
--- NOTE | 2023-10-19 17:53 | HO.PSYCHPN ---
Subjective Subjective Date of Service: 10/19/23 Reason For Visit: opiate overdose with suicidal intent Interim History: Met with patient; discussed with team pt found with intact pills an ostomy bag; review of literature reveals that long-acting medications and enteric-coated ones are absorbed in the colon. Discussed this with patient who agrees to switch to immediate release Wellbutrin. Patient says there is little change in mood. He reiterates that he wants to go to his surgical appointment on Wednesday morning. Patient thankful for social work help trying to see if a medical respite bed is available; he also agrees to call [facility] to see if bed available. Mental Status Exam Mental Status Exam Narrative: Pt is alert and oriented; behavior is cooperative, calm; patient is not in distress; dressed casually, overall adequately groomed;; mood is described as ok and affect congruent, downcast; eye contact appropriate; Speech is normal volume, rate;; some psychomotor retardation present; thought process is organized and goal directed; Thought content is on medical treatment, psychosocial stressors; otherwise pertinent to relevant topics and without any delusional content, paranoid ideations or grandiosity; no SI; no HI. Denies AVH and There is no evidence of perceptual disturbance. Patients insight and judgment fair Diagnostics Vital Signs (24Hr): Vital Signs - 24 hr 10/18/23 20:00 10/19/23 08:00 Temperature 97.6 F 97.6 F Pulse Rate 77 83 Respiratory Rate 16 18 Blood Pressure 114/56 L 111/65 Pulse Oximetry 95 95 Oxygen Delivery Method Room Air Room Air BMI result Body Mass Index 26.5 Medications Medications Current Medications Acetaminophen (Acetaminophen 325 Mg Tablet) 650 mg PO Q6H PRN PRN Reason: Headache/Pain Mild Scale (1-3) Last Admin: 10/18/23 16:05 Dose: 650 mg Al Hydroxide/Mg Hydroxide (Magnesium Hydrox/Alum Hydrox 30 Ml Oral.Susp) 30 ml PO Q6H PRN PRN Reason: Heartburn/Nausea Benzonatate (Benzonatate 100 Mg Capsule) 100 mg PO TID PRN PRN Reason: Cough Bupropion HCl (Bupropion Hcl 100 Mg Tablet) 100 mg PO BID@0900,1300 [facility] Chlorpromazine HCl (Chlorpromazine Hcl 100 Mg Tablet) 100 mg PO TID [facility] Last Admin: 10/19/23 14:50 Dose: 100 mg Clonazepam (Clonazepam 1 Mg Tablet) 1 mg PO BID [facility] Clonidine HCl (Clonidine Hcl 0.1 Mg Tablet) 0.1 mg PO Q4H PRN; Protocol PRN Reason: moderate anxiety Last Admin: 10/15/23 12:32 Dose: 0.1 mg Docusate Sodium (Docusate Sodium 100 Mg Capsule) 100 mg PO DAILY PRN PRN Reason: Constipation Doxycycline Monohydrate (Doxycycline Monohydrate 100 Mg Capsule) 100 mg PO BID [facility] Last Admin: 10/19/23 08:43 Dose: 100 mg Hydroxyzine HCl (Hydroxyzine Hcl 25 Mg Tablet) 25 mg PO BID PRN PRN Reason: itch Last Admin: 10/17/23 20:52 Dose: 25 mg Loperamide HCl (Loperamide Hcl 2 Mg Capsule) 2 mg PO TID [facility] Last Admin: 10/19/23 14:50 Dose: 2 mg Magnesium Hydroxide (Milk Of Magnesia 30 Ml Oral.Susp) 30 ml PO DAILY PRN PRN Reason: Constipation Melatonin (Melatonin 3 Mg Tablet) 6 mg PO BEDTIME PRN PRN Reason: Insomnia Methadone HCl (Methadone Hcl 20 Mg/2 Ml Oral.Conc) 40 mg PO DAILY [facility] Last Admin: 10/19/23 08:42 Dose: 40 mg Mirtazapine (Mirtazapine 30 Mg Tablet) 30 mg PO BEDTIME [facility] Last Admin: 10/18/23 20:42 Dose: 30 mg Multi-Ingred Cream/Lotion/Oil/Oint (Mineral Oil/Petrolatum,White 106 Gm Tube) 1 appl TOPICAL TID [facility]; Protocol Last Admin: 10/19/23 14:50 Dose: 1 appl Nicotine (Nicotine 21 Mg Patch.Td24) 21 mg TRANSDERMA DAILY PRN PRN Reason: nicotine craving Nicotine Polacrilex (Nicotine Polacrilex 2 Mg Gum) 4 mg BUCCAL Q2H PRN PRN Reason: Nicotine Cravings Omeprazole (Omeprazole 20 Mg Capsule.Dr) 20 mg PO DAILY@0630 [facility] Last Admin: 10/19/23 08:43 Dose: 20 mg Rivaroxaban (Rivaroxaban 20 Mg Tablet) 20 mg PO DAILY@1800 [facility] Last Admin: 10/18/23 17:12 Dose: 20 mg Trazodone HCl (Trazodone Hcl 50 Mg Tablet) 50 mg PO BEDTIME MRX1 PRN PRN Reason: Insomnia Last Admin: 10/18/23 20:43 Dose: 50 mg Allergies Allergies Allergy/AdvReac Type Severity Reaction Status Date / Time haloperidol [From Haldol] AdvReac see note Verified 10/09/23 10:18 Assessment & Plan Assessment & Plan (1) Colostomy in place: Status: Acute Code(s): Z93.3 - Colostomy status (2) Ileostomy in place: Status: Acute Code(s): Z93.2 - Ileostomy status Plan Patient is a 48-year-old male with history of depression, opioid/cocaine abuse, Crohn's disease large bowel obstruction due to sigmoid stricture s/p colostomy, multiple psychiatric hospitalizations who presented to the ED for intentional drug overdose. Patient was found unresponsive on the back porch of a stranger's house after having injected cocaine/heroin into his neck. Patient was given Narcan and brought to the hospital. Patient reports that he intentionally overdosed in a suicide attempt following relational strife with his and being kicked out of the house. He was medically admitted and treated for rhabdomyolysis. Patient medically cleared and presents to for psychiatric admission. Patient reports that up until about 5 days ago he was doing well, good mood, taking his medications regularly and remain sober. Patient got into an argument with his , the details of which he did not disclose, and got kicked out of the house. Patient said that this triggered strong emotional response and he relapsed for the past 5 days; with continued depression and falling into despair patient got suicidal and intentionally overdosed on heroin cocaine. Patient remains depressed with intermittent suicidality present; he asks to get on methadone which he was on years ago, saying he needs this initially to help him stay sober and will get off it later on. He is amenable to medication adjustments, increasing antidepressants. Formulation/clinical reasoning: Will continue home medication; patient asking to be started on methadone which he has been on in the past to help him remain sober Continues to have SI though seems mostly related to being discharged to homelessness Will hold off increasing antidepressants for now since patient was on these doses for quite awhile, doing well hospital course: 10/12 Patient more open today. Shares more history. Says his girlfriend from cancer May 06; at that time he was hospitalized. He was doing better for while but got depressed again and was psychiatrically hospitalized at [facility] early this September. When he was discharged she went back to his female friend's house where he had been living in [place] but when he got there she told him he had a move out with little explanation. He said that is when he relapsed once on the street. Patient said because of the [facility] hospitalization he missed his surgical appointment to have his colostomy reversed. His worry is that if he is discharged back to the street, he will again relapse and again miss this important surgery. Patient says suicidality comes and goes but increases when he thinks of being homeless. -patient complained of some discomfort an anal region which resolved on its own after a shower 10/13 still depressed but slowly improving. Agrees to behavioral activation and push himself to attend groups. Increased mirtazapine to 15 mg which he agrees can be increased further if needed. Increasing methadone to 30 mg which he feels should be sufficient for staying sober. 10/17 increase Remeron to 30 mg; has outpatient appointment with surgical team WednesdayOctober 21 which he wants to attend. 10/18 patient remains depressed but says he stable; no SI and future oriented. He continues to want to discharge Wednesday to go to pre surgery appointment. Agrees to switching Wellbutrin to immediate release given poor absorption in the colon -team working on discharge planning in finding some housing until patient can get surgery. Plan: CV Q 15 minute checks START bupropion immediate release 100 mg b.i.d. DC bupropion HCl XL 300 mg daily plus bupropion HCl XL 150 mg daily Increased to methadone 40 mg daily; patient asked for increase due to cravings Continue chlorpromazine 100 mg PO TID Continue clonazepam 2 mg PO BID Continue mirtazapine 30mg PO BEDTIME; may titrate further for continued depression Added clonidine p.r.n. for anxiety melatonin 3 mg PO BEDTIME PRN Continue loperamide 2 mg PO TID Continue Xarelto 20 mg PO DAILY@1800 Continue lansoprazole 30 mg Capsule,Delayed Release(Dr/Ec) daily Continue methenamine mandelate 1 g PO QID Patient educated on: diagnosis, medication risk/benefits, substance abuse and medical condition [facility] surgeon Dr. Myla Shi an appointment set for October 21 10:45 regarding ostomy: both ileostomy and colostomy in place. Both are viable appearing. Can change ileostomy appliance every 3-4 days and as needed. Empty appliance Q shift and as needed. Can keep the colostomy covered with dry dressing such as allevyn pads or nonwoven sponge, as it is being proximally diverted. He has a very large parastomal hernia at the ileostomy site which is soft and reducible, no current intervention needed. consulted the sales operations managerFalguni to assist with education and appliance changes. Patient educated on: diagnosis, medication risk/benefits, substance abuse and medical condition Informed Consent: understands Reason for continued inpatient stay Substantial Risk for: rapid decompensation Time Spent With Patient Time: Total time managing care of this patient today ____ minutes.
[2023-10-19] MEDS: Rivaroxaban 20 MG TABLET PO (18:49)
[2023-10-19 20:00] VITALS: BP 116/71; PULSE 89; RESP 17; TEMP 37.1; O2SAT 95
[2023-10-19] MEDS: clonazePAM 1 MG TABLET PO (20:54)
[2023-10-19] MEDS: Mirtazapine 30 MG TABLET PO (20:54)
[2023-10-19] MEDS: traZODone HCL 50 MG TABLET PO (20:54)
[2023-10-20 07:45] VITALS: BP 103/58; PULSE 69; RESP 16; TEMP 36.9; O2SAT 96
[2023-10-20] MEDS: Doxycycline Monohydrate 100 MG CAPSULE PO ×2 (08:40→21:21)
[2023-10-20] MEDS: methADONE HCl 20 MG/2 ML ORAL.CONC 40 MG PO (08:40)
[2023-10-20] MEDS: clonazePAM 1 MG TABLET PO ×2 (08:41→21:21)
[2023-10-20] MEDS: chlorproMAZINE HCl 100 MG TABLET PO ×3 (08:41→21:21)
[2023-10-20] MEDS: Omeprazole 20 MG CAPSULE.DR PO (08:41)
[2023-10-20] MEDS: buPROPion HCL 100 MG TABLET PO (08:41)
[2023-10-20] MEDS: Loperamide HCl 2 MG CAPSULE PO ×3 (08:52→21:21)
[2023-10-20] MEDS: Rivaroxaban 20 MG TABLET PO (18:03)
[2023-10-20 20:00] VITALS: BP 114/56; PULSE 69; RESP 12; TEMP 36.9; O2SAT 98
[2023-10-20] MEDS: traZODone HCL 50 MG TABLET PO (21:21)
[2023-10-20] MEDS: Mirtazapine 30 MG TABLET PO (21:21)
--- NOTE | 2023-10-20 22:35 | HO.PSYCHPN ---
Subjective Subjective Date of Service: 10/20/23 Reason For Visit: opiate overdose with suicidal intent Interim History: Met with patient; discussed with team Patient agrees to increasing Wellbutrin immediate release. Still focused on getting to pre-surgical appointment. Patient had not yet called [facility] but did so with encouragement. Mental Status Exam Mental Status Exam Narrative: Pt is alert and oriented; behavior is cooperative, calm; patient is not in distress; dressed casually, overall adequately groomed;; mood is described as ok and affect congruent, downcast; eye contact appropriate; Speech is normal volume, rate;; some psychomotor retardation present; thought process is organized and goal directed; Thought content is on medical treatment, psychosocial stressors; otherwise pertinent to relevant topics and without any delusional content, paranoid ideations or grandiosity; no SI; no HI. Denies AVH and There is no evidence of perceptual disturbance. Patients insight and judgment fair Diagnostics Vital Signs (24Hr): Vital Signs - 24 hr 10/20/23 07:45 Temperature 98.5 F Pulse Rate 69 Respiratory Rate 16 Blood Pressure 103/58 L Pulse Oximetry 96 Oxygen Delivery Method Room Air BMI result Body Mass Index 26.5 Medications Medications Current Medications Acetaminophen (Acetaminophen 325 Mg Tablet) 650 mg PO Q6H PRN PRN Reason: Headache/Pain Mild Scale (1-3) Last Admin: 10/18/23 16:05 Dose: 650 mg Al Hydroxide/Mg Hydroxide (Magnesium Hydrox/Alum Hydrox 30 Ml Oral.Susp) 30 ml PO Q6H PRN PRN Reason: Heartburn/Nausea Benzonatate (Benzonatate 100 Mg Capsule) 100 mg PO TID PRN PRN Reason: Cough Bupropion HCl (Bupropion Hcl 100 Mg Tablet) 100 mg PO BID@0900,1300 [facility] Last Admin: 10/20/23 14:12 Dose: Not Given Chlorpromazine HCl (Chlorpromazine Hcl 100 Mg Tablet) 100 mg PO TID [facility] Last Admin: 10/20/23 21:21 Dose: 100 mg Clonazepam (Clonazepam 1 Mg Tablet) 1 mg PO BID [facility] Last Admin: 10/20/23 21:21 Dose: 1 mg Clonidine HCl (Clonidine Hcl 0.1 Mg Tablet) 0.1 mg PO Q4H PRN; Protocol PRN Reason: moderate anxiety Last Admin: 10/15/23 12:32 Dose: 0.1 mg Docusate Sodium (Docusate Sodium 100 Mg Capsule) 100 mg PO DAILY PRN PRN Reason: Constipation Doxycycline Monohydrate (Doxycycline Monohydrate 100 Mg Capsule) 100 mg PO BID [facility] Last Admin: 10/20/23 21:21 Dose: 100 mg Hydroxyzine HCl (Hydroxyzine Hcl 25 Mg Tablet) 25 mg PO BID PRN PRN Reason: itch Last Admin: 10/17/23 20:52 Dose: 25 mg Loperamide HCl (Loperamide Hcl 2 Mg Capsule) 2 mg PO TID [facility] Last Admin: 10/20/23 21:21 Dose: 2 mg Magnesium Hydroxide (Milk Of Magnesia 30 Ml Oral.Susp) 30 ml PO DAILY PRN PRN Reason: Constipation Melatonin (Melatonin 3 Mg Tablet) 6 mg PO BEDTIME PRN PRN Reason: Insomnia Methadone HCl (Methadone Hcl 20 Mg/2 Ml Oral.Conc) 40 mg PO DAILY [facility] Last Admin: 10/20/23 08:40 Dose: 40 mg Mirtazapine (Mirtazapine 30 Mg Tablet) 30 mg PO BEDTIME [facility] Last Admin: 10/20/23 21:21 Dose: 30 mg Multi-Ingred Cream/Lotion/Oil/Oint (Mineral Oil/Petrolatum,White 106 Gm Tube) 1 appl TOPICAL TID [facility]; Protocol Last Admin: 10/20/23 15:13 Dose: Not Given Nicotine (Nicotine 21 Mg Patch.Td24) 21 mg TRANSDERMA DAILY PRN PRN Reason: nicotine craving Nicotine Polacrilex (Nicotine Polacrilex 2 Mg Gum) 4 mg BUCCAL Q2H PRN PRN Reason: Nicotine Cravings Omeprazole (Omeprazole 20 Mg Capsule.) 20 mg PO DAILY@0630 [facility] Last Admin: 10/20/23 08:41 Dose: 20 mg Rivaroxaban (Rivaroxaban 20 Mg Tablet) 20 mg PO DAILY@1800 [facility] Last Admin: 10/20/23 18:03 Dose: 20 mg Trazodone HCl (Trazodone Hcl 50 Mg Tablet) 50 mg PO BEDTIME MRX1 PRN PRN Reason: Insomnia Last Admin: 10/20/23 21:21 Dose: 50 mg Allergies Allergies Allergy/AdvReac Type Severity Reaction Status Date / Time haloperidol [From Haldol] AdvReac see note Verified 10/09/23 10:18 Assessment & Plan Assessment & Plan (1) MDD (major depressive disorder), recurrent, severe, with psychosis: Status: Acute Code(s): F33.3 - Major depressive disorder, recurrent, severe with psychotic symptoms (2) Post traumatic stress disorder (PTSD): Status: Acute Code(s): F43.10 - Post-traumatic stress disorder, unspecified (3) Opioid use disorder: Status: Acute Code(s): F11.90 - Opioid use, unspecified, uncomplicated (4) Cocaine use disorder: Status: Acute Code(s): F14.10 - Cocaine abuse, uncomplicated (5) Crohn's disease: Status: Acute Code(s): K50.90 - Crohn's disease, unspecified, without complications (6) Colostomy in place: Status: Acute Code(s): Z93.3 - Colostomy status (7) Ileostomy in place: Status: Acute Code(s): Z93.2 - Ileostomy status Plan Patient is a 48-year-old male with history of depression, opioid/cocaine abuse, Crohn's disease large bowel obstruction due to sigmoid stricture s/p colostomy, multiple psychiatric hospitalizations who presented to the ED for intentional drug overdose. Patient was found unresponsive on the back porch of a stranger's house after having injected cocaine/heroin into his neck. Patient was given Narcan and brought to the hospital. Patient reports that he intentionally overdosed in a suicide attempt following relational strife with his and being kicked out of the house. He was medically admitted and treated for rhabdomyolysis. Patient medically cleared and presents to for psychiatric admission. Patient reports that up until about 5 days ago he was doing well, good mood, taking his medications regularly and remain sober. Patient got into an argument with his , the details of which he did not disclose, and got kicked out of the house. Patient said that this triggered strong emotional response and he relapsed for the past 5 days; with continued depression and falling into despair patient got suicidal and intentionally overdosed on heroin cocaine. Patient remains depressed with intermittent suicidality present; he asks to get on methadone which he was on years ago, saying he needs this initially to help him stay sober and will get off it later on. He is amenable to medication adjustments, increasing antidepressants. Formulation/clinical reasoning: Will continue home medication; patient asking to be started on methadone which he has been on in the past to help him remain sober Continues to have SI though seems mostly related to being discharged to homelessness Will hold off increasing antidepressants for now since patient was on these doses for quite awhile, doing well hospital course: 10/12 Patient more open today. Shares more history. Says his girlfriend from cancer May 06; at that time he was hospitalized. He was doing better for while but got depressed again and was psychiatrically hospitalized at [facility] early this September. When he was discharged she went back to his female friend's house where he had been living in [place] but when he got there she told him he had a move out with little explanation. He said that is when he relapsed once on the street. Patient said because of the [facility] hospitalization he missed his surgical appointment to have his colostomy reversed. His worry is that if he is discharged back to the street, he will again relapse and again miss this important surgery. Patient says suicidality comes and goes but increases when he thinks of being homeless. -patient complained of some discomfort an anal region which resolved on its own after a shower 10/13 still depressed but slowly improving. Agrees to behavioral activation and push himself to attend groups. Increased mirtazapine to 15 mg which he agrees can be increased further if needed. Increasing methadone to 30 mg which he feels should be sufficient for staying sober. 10/17 increase Remeron to 30 mg; has outpatient appointment with surgical team WednesdayOctober 21 which he wants to attend. 10/18 patient remains depressed but says he stable; no SI and future oriented. He continues to want to discharge Wednesday to go to pre surgery appointment. Agrees to switching Wellbutrin to immediate release given poor absorption in the colon -team working on discharge planning in finding some housing until patient can get surgery. 10/19 patient depressed, but still feels stable, safe and wants to go to appointment on Wednesday, hopeful of getting some type of housing but saying he will take his chances if not. Hoping that immediate release Wellbutrin can make a difference; consider increasing it to t.i.d. Plan: CV Q 15 minute checks Continue bupropion immediate release 100 mg b.i.d.; will consider making a t.i.d. DC bupropion HCl XL 300 mg daily plus bupropion HCl XL 150 mg daily Increased to methadone 40 mg daily; patient asked for increase due to cravings Continue chlorpromazine 100 mg PO TID Continue clonazepam 2 mg PO BID Continue mirtazapine 30mg PO BEDTIME; may titrate further for continued depression Added clonidine p.r.n. for anxiety melatonin 3 mg PO BEDTIME PRN Continue loperamide 2 mg PO TID Continue Xarelto 20 mg PO DAILY@1800 Continue lansoprazole 30 mg Capsule,Delayed Release(Dr/Ec) daily Continue methenamine mandelate 1 g PO QID Patient educated on: diagnosis, medication risk/benefits, substance abuse and medical condition [facility] surgeon Dr. Myla Shi appointment set for October 21 10:45 regarding ostomy: both ileostomy and colostomy in place. Both are viable appearing. Can change ileostomy appliance every 3-4 days and as needed. Empty appliance Q shift and as needed. Can keep the colostomy covered with dry dressing such as allevyn pads or nonwoven sponge, as it is being proximally diverted. He has a very large parastomal hernia at the ileostomy site which is soft and reducible, no current intervention needed. consulted the actuarial traineeFalguni to assist with education and appliance changes. Patient educated on: diagnosis, medication risk/benefits and medical condition Informed Consent: understands Reason for continued inpatient stay Substantial Risk for: stable for discharge Time Spent With Patient Time: Total time managing care of this patient today ____ minutes.
[2023-10-21 07:00] VITALS: BMI 27.2
[2023-10-21 08:00] VITALS: RESP 16
[2023-10-21] MEDS: Loperamide HCl 2 MG CAPSULE PO ×3 (08:59→21:58)
[2023-10-21] MEDS: clonazePAM 1 MG TABLET PO ×2 (08:59→21:59)
[2023-10-21] MEDS: methADONE HCl 20 MG/2 ML ORAL.CONC 40 MG PO (08:59)
[2023-10-21] MEDS: chlorproMAZINE HCl 100 MG TABLET PO ×3 (08:59→21:58)
[2023-10-21] MEDS: Doxycycline Monohydrate 100 MG CAPSULE PO ×2 (08:59→21:59)
[2023-10-21] MEDS: buPROPion HCL 100 MG TABLET PO ×3 (08:59→21:59)
[2023-10-21] MEDS: Mineral Oil/Petrolatum,White 106 GM Tube 1 APPL TOPICAL ×2 (09:03→14:16)
--- NOTE | 2023-10-21 16:13 | HO.PSYCHPN ---
Subjective Subjective Date of Service: 10/21/23 Reason For Visit: opiate overdose with suicidal intent Interim History: Met with patient; discussed with team Patient tells narrative writer he wants to discharge tomorrow to his appointment. However also in the morning, he told a nurse that he plans to overdose after his appointment. Waxing Machine Operator Helper returned later in the day to discuss this with patient who said that he was feeling upset and angry this morning and did say that however those feelings are gone now and he just wants to go to his pre-surgical appointment; he says that if they are not able to admit him for surgery at this appointment, he will just go and get a hotel until surgery is ready, saying he has enough money. Waxing Machine Operator Helper came back again to discuss this further and patient said something to the effect of okay let me be open... There is a fight in my head whether to do something stupid or not... He goes on to say that he is worried that once discharged, he will cave in, use, get very angry at himself and intentionally overdose. He says I know depression will always be there... Sometimes I can control it... Patient says he does not want to , and very much wants surgery but he is currently worried about his ability to remain safe. He agrees that if he were able to get into a medical respite that would make a tremendous difference as he would be in a structured environment. Mental Status Exam Mental Status Exam Narrative: Pt is alert and oriented; behavior is cooperative, calm; patient is not in distress; dressed casually, overall adequately groomed;; mood is described as there is a fight in my mind and affect congruent, downcast; eye contact appropriate; Speech is normal volume, rate; some psychomotor retardation present; thought process is organized and goal directed; Thought content is on medical treatment, psychosocial stressors; otherwise pertinent to relevant topics and without any delusional content, paranoid ideations or grandiosity; no SI; no HI. Denies AVH and There is no evidence of perceptual disturbance. Patients insight and judgment impaired. Diagnostics Vital Signs (24Hr): Vital Signs - 24 hr 10/20/23 20:00 10/21/23 08:00 Temperature 98.5 F Pulse Rate 69 Respiratory Rate 12 16 Blood Pressure 114/56 L Pulse Oximetry 98 Oxygen Delivery Method Room Air BMI result Body Mass Index 27.2 Medications Medications Current Medications Acetaminophen (Acetaminophen 325 Mg Tablet) 650 mg PO Q6H PRN PRN Reason: Headache/Pain Mild Scale (1-3) Last Admin: 10/18/23 16:05 Dose: 650 mg Al Hydroxide/Mg Hydroxide (Magnesium Hydrox/Alum Hydrox 30 Ml Oral.Susp) 30 ml PO Q6H PRN PRN Reason: Heartburn/Nausea Benzonatate (Benzonatate 100 Mg Capsule) 100 mg PO TID PRN PRN Reason: Cough Bupropion HCl (Bupropion Hcl 100 Mg Tablet) 100 mg PO TID [facility] Last Admin: 10/21/23 14:16 Dose: 100 mg Chlorpromazine HCl (Chlorpromazine Hcl 100 Mg Tablet) 100 mg PO TID [facility] Last Admin: 10/21/23 14:16 Dose: 100 mg Clonazepam (Clonazepam 1 Mg Tablet) 1 mg PO BID [facility] Last Admin: 10/21/23 08:59 Dose: 1 mg Clonidine HCl (Clonidine Hcl 0.1 Mg Tablet) 0.1 mg PO Q4H PRN; Protocol PRN Reason: moderate anxiety Last Admin: 10/15/23 12:32 Dose: 0.1 mg Docusate Sodium (Docusate Sodium 100 Mg Capsule) 100 mg PO DAILY PRN PRN Reason: Constipation Doxycycline Monohydrate (Doxycycline Monohydrate 100 Mg Capsule) 100 mg PO BID [facility] Last Admin: 10/21/23 08:59 Dose: 100 mg Hydroxyzine HCl (Hydroxyzine Hcl 25 Mg Tablet) 25 mg PO BID PRN PRN Reason: itch Last Admin: 10/17/23 20:52 Dose: 25 mg Loperamide HCl (Loperamide Hcl 2 Mg Capsule) 2 mg PO TID [facility] Last Admin: 10/21/23 14:16 Dose: 2 mg Magnesium Hydroxide (Milk Of Magnesia 30 Ml Oral.Susp) 30 ml PO DAILY PRN PRN Reason: Constipation Melatonin (Melatonin 3 Mg Tablet) 6 mg PO BEDTIME PRN PRN Reason: Insomnia Methadone HCl (Methadone Hcl 20 Mg/2 Ml Oral.Conc) 40 mg PO DAILY [facility] Last Admin: 10/21/23 08:59 Dose: 40 mg Mirtazapine (Mirtazapine 30 Mg Tablet) 30 mg PO BEDTIME [facility] Last Admin: 10/20/23 21:21 Dose: 30 mg Multi-Ingred Cream/Lotion/Oil/Oint (Mineral Oil/Petrolatum,White 106 Gm Tube) 1 appl TOPICAL TID [facility]; Protocol Last Admin: 10/21/23 14:16 Dose: 1 appl Nicotine (Nicotine 21 Mg Patch.Td24) 21 mg TRANSDERMA DAILY PRN PRN Reason: nicotine craving Nicotine Polacrilex (Nicotine Polacrilex 2 Mg Gum) 4 mg BUCCAL Q2H PRN PRN Reason: Nicotine Cravings Omeprazole (Omeprazole 20 Mg Capsule.Dr) 20 mg PO DAILY@0630 [facility] Last Admin: 10/21/23 06:18 Dose: Not Given Rivaroxaban (Rivaroxaban 20 Mg Tablet) 20 mg PO DAILY@1800 [facility] Last Admin: 10/20/23 18:03 Dose: 20 mg Trazodone HCl (Trazodone Hcl 50 Mg Tablet) 50 mg PO BEDTIME MRX1 PRN PRN Reason: Insomnia Last Admin: 10/20/23 21:21 Dose: 50 mg Allergies Allergies Allergy/AdvReac Type Severity Reaction Status Date / Time haloperidol [From Haldol] AdvReac see note Verified 10/09/23 10:18 Assessment & Plan Assessment & Plan (1) MDD (major depressive disorder), recurrent, severe, with psychosis: Status: Acute Code(s): F33.3 - Major depressive disorder, recurrent, severe with psychotic symptoms (2) Post traumatic stress disorder (PTSD): Status: Acute Code(s): F43.10 - Post-traumatic stress disorder, unspecified (3) Opioid use disorder: Status: Acute Code(s): F11.90 - Opioid use, unspecified, uncomplicated (4) Cocaine use disorder: Status: Acute Code(s): F14.10 - Cocaine abuse, uncomplicated (5) Crohn's disease: Status: Acute Code(s): K50.90 - Crohn's disease, unspecified, without complications (6) Colostomy in place: Status: Acute Code(s): Z93.3 - Colostomy status (7) Ileostomy in place: Status: Acute Code(s): Z93.2 - Ileostomy status Plan Patient is a 48-year-old male with history of depression, opioid/cocaine abuse, Crohn's disease large bowel obstruction due to sigmoid stricture s/p colostomy, multiple psychiatric hospitalizations who presented to the ED for intentional drug overdose. Patient was found unresponsive on the back porch of a stranger's house after having injected cocaine/heroin into his neck. Patient was given Narcan and brought to the hospital. Patient reports that he intentionally overdosed in a suicide attempt following relational strife with his and being kicked out of the house. He was medically admitted and treated for rhabdomyolysis. Patient medically cleared and presents to for psychiatric admission. Patient reports that up until about 5 days ago he was doing well, good mood, taking his medications regularly and remain sober. Patient got into an argument with his , the details of which he did not disclose, and got kicked out of the house. Patient said that this triggered strong emotional response and he relapsed for the past 5 days; with continued depression and falling into despair patient got suicidal and intentionally overdosed on heroin cocaine. Patient remains depressed with intermittent suicidality present; he asks to get on methadone which he was on years ago, saying he needs this initially to help him stay sober and will get off it later on. He is amenable to medication adjustments, increasing antidepressants. Formulation/clinical reasoning: Will continue home medication; patient asking to be started on methadone which he has been on in the past to help him remain sober Continues to have SI though seems mostly related to being discharged to homelessness Will hold off increasing antidepressants for now since patient was on these doses for quite awhile, doing well hospital course: 10/12 Patient more open today. Shares more history. Says his girlfriend from cancer May 06; at that time he was hospitalized. He was doing better for while but got depressed again and was psychiatrically hospitalized at [facility] early this September. When he was discharged she went back to his female friend's house where he had been living in [place] but when he got there she told him he had a move out with little explanation. He said that is when he relapsed once on the street. Patient said because of the [facility] hospitalization he missed his surgical appointment to have his colostomy reversed. His worry is that if he is discharged back to the street, he will again relapse and again miss this important surgery. Patient says suicidality comes and goes but increases when he thinks of being homeless. -patient complained of some discomfort an anal region which resolved on its own after a shower 10/13 still depressed but slowly improving. Agrees to behavioral activation and push himself to attend groups. Increased mirtazapine to 15 mg which he agrees can be increased further if needed. Increasing methadone to 30 mg which he feels should be sufficient for staying sober. 10/17 increase Remeron to 30 mg; has outpatient appointment with surgical team WednesdayOctober 21 which he wants to attend. 10/18 patient remains depressed but says he stable; no SI and future oriented. He continues to want to discharge Wednesday to go to pre surgery appointment. Agrees to switching Wellbutrin to immediate release given poor absorption in the colon -team working on discharge planning in finding some housing until patient can get surgery. 10/19 patient depressed, but still feels stable, safe and wants to go to appointment on Wednesday, hopeful of getting some type of housing but saying he will take his chances if not. Hoping that immediate release Wellbutrin can make a difference; consider increasing it to t.i.d. 10/20 Patient tells narrative writer he wants to discharge tomorrow to his appointment. However also in the morning, he told a nurse that he plans to overdose after his appointment. Waxing Machine Operator Helper returned later in the day to discuss this with patient who said that he was feeling upset and angry this morning and did say that however those feelings are gone now and he just wants to go to his pre-surgical appointment; he says that if they are not able to admit him for surgery at this appointment, he will just go and get a hotel until surgery is ready, saying he has enough money. Waxing Machine Operator Helper came back again to discuss this further and patient said something to the effect of okay let me be open... There is a fight in my head whether to do something stupid or not... He goes on to say that he is worried that once discharged, he will cave in, use, get very angry at himself and intentionally overdose. He says I know depression will always be there... Sometimes I can control it... Patient says he does not want to , and very much wants surgery but he is currently worried about his ability to remain safe. He agrees that if he were able to get into a medical respite that would make a tremendous difference as he would be in a structured environment. -narrative writer agrees that patient wants to be safe and wants to get surgery; however given his ostomy, he has not been digesting antidepressant medication, leaving his depression poorly treated; his medication was recently switched to immediate release to help with absorption and hopefully to help with depression. It is narrative writer's opinion that for now, it is in patient's best interest to remain on the unit to help establish a more supportive disposition. Although patient very much does not want to miss his appointment this Wednesday, he is amenable to staying longer and getting the appointment rescheduled for the same reason. Plan: CV Q 15 minute checks Continue bupropion immediate release 100 mg b.i.d.; will consider making a t.i.d. DC bupropion HCl XL 300 mg daily plus bupropion HCl XL 150 mg daily Increased to methadone 40 mg daily; patient asked for increase due to cravings Continue chlorpromazine 100 mg PO TID Continue clonazepam 2 mg PO BID Continue mirtazapine 30mg PO BEDTIME; may titrate further for continued depression Added clonidine p.r.n. for anxiety melatonin 3 mg PO BEDTIME PRN Continue loperamide 2 mg PO TID Continue Xarelto 20 mg PO DAILY@1800 Continue lansoprazole 30 mg Capsule,Delayed Release(Dr/Ec) daily Continue methenamine mandelate 1 g PO QID Patient educated on: diagnosis, medication risk/benefits, substance abuse and medical condition [facility] surgeon Dr. Myla Shi appointment set for October 21 10:45 regarding ostomy: both ileostomy and colostomy in place. Both are viable appearing. Can change ileostomy appliance every 3-4 days and as needed. Empty appliance Q shift and as needed. Can keep the colostomy covered with dry dressing such as allevyn pads or nonwoven sponge, as it is being proximally diverted. He has a very large parastomal hernia at the ileostomy site which is soft and reducible, no current intervention needed. consulted the block out machine operatorFalguni to assist with education and appliance changes. Patient educated on: diagnosis, medication risk/benefits, substance abuse and medical condition Informed Consent: understands Reason for continued inpatient stay Substantial Risk for: rapid decompensation Time Spent With Patient Time: Total time managing care of this patient today ____ minutes.
[2023-10-21] MEDS: Rivaroxaban 20 MG TABLET PO (18:31)
[2023-10-21 21:00] VITALS: BP 117/69; PULSE 101; TEMP 36.4; O2SAT 94
[2023-10-21] MEDS: Mirtazapine 30 MG TABLET PO (21:59)
[2023-10-22 08:00] VITALS: BP 114/76; PULSE 108; RESP 16; TEMP 36.8; O2SAT 96
[2023-10-22] MEDS: Doxycycline Monohydrate 100 MG CAPSULE PO ×2 (10:47→20:28)
[2023-10-22] MEDS: clonazePAM 1 MG TABLET PO ×2 (10:47→20:28)
[2023-10-22] MEDS: Loperamide HCl 2 MG CAPSULE PO ×3 (10:47→20:29)
[2023-10-22] MEDS: buPROPion HCL 100 MG TABLET PO ×3 (10:47→20:28)
[2023-10-22] MEDS: methADONE HCl 20 MG/2 ML ORAL.CONC 40 MG PO (10:48)
[2023-10-22] MEDS: chlorproMAZINE HCl 100 MG TABLET PO ×3 (10:48→20:28)
--- NOTE | 2023-10-22 14:41 | HO.OSTOMY ---
Ostomy Consult: Follow up for difficult to pouch loop ileostomy Chart review revealed pouch was changed by direct care team yesterday - no issues or concerns with pouch application reported. Per direct care nurse today pouch remains intact no leaking or lifting noted - will follow up early next week for assessment and continued care.
[2023-10-22] MEDS: Mineral Oil/Petrolatum,White 106 GM Tube 1 APPL TOPICAL (15:26)
--- NOTE | 2023-10-22 18:56 | HO.PSYCHPN ---
Subjective Subjective Date of Service: 10/22/23 Reason For Visit: opiate overdose with suicidal intent Interim History: Met with patient; discussed with team Patient expresses much appreciation for helping with his surgical appointment, rescheduling it. Patient says his mood is all right though he remains depressed. Says he has not felt any benefit from immediate release Wellbutrin. Mental Status Exam Mental Status Exam Narrative: Pt is alert and oriented; behavior is cooperative, calm; patient is not in distress; dressed casually, overall adequately groomed;; mood is described as allright and affect congruent, downcast; eye contact appropriate; Speech is normal volume, rate; some psychomotor retardation present; thought process is organized and goal directed; Thought content is on medical treatment, psychosocial stressors; otherwise pertinent to relevant topics and without any delusional content, paranoid ideations or grandiosity; no SI; no HI. Denies AVH and There is no evidence of perceptual disturbance. Patients insight and judgment impaired. Diagnostics Vital Signs (24Hr): Vital Signs - 24 hr 10/21/23 21:00 10/22/23 08:00 Temperature 97.6 F 98.2 F Pulse Rate 101 H 108 H Respiratory Rate 16 Blood Pressure 117/69 114/76 Pulse Oximetry 94 96 Oxygen Delivery Method Room Air Room Air BMI result Body Mass Index 27.2 Medications Medications Current Medications Acetaminophen (Acetaminophen 325 Mg Tablet) 650 mg PO Q6H PRN PRN Reason: Headache/Pain Mild Scale (1-3) Last Admin: 10/18/23 16:05 Dose: 650 mg Al Hydroxide/Mg Hydroxide (Magnesium Hydrox/Alum Hydrox 30 Ml Oral.Susp) 30 ml PO Q6H PRN PRN Reason: Heartburn/Nausea Benzonatate (Benzonatate 100 Mg Capsule) 100 mg PO TID PRN PRN Reason: Cough Bupropion HCl (Bupropion Hcl 100 Mg Tablet) 100 mg PO TID [facility] Last Admin: 10/22/23 15:26 Dose: 100 mg Chlorpromazine HCl (Chlorpromazine Hcl 100 Mg Tablet) 100 mg PO TID [facility] Last Admin: 10/22/23 15:26 Dose: 100 mg Clonazepam (Clonazepam 1 Mg Tablet) 1 mg PO BID [facility] Last Admin: 10/22/23 10:47 Dose: 1 mg Clonidine HCl (Clonidine Hcl 0.1 Mg Tablet) 0.1 mg PO Q4H PRN; Protocol PRN Reason: moderate anxiety Last Admin: 10/15/23 12:32 Dose: 0.1 mg Docusate Sodium (Docusate Sodium 100 Mg Capsule) 100 mg PO DAILY PRN PRN Reason: Constipation Doxycycline Monohydrate (Doxycycline Monohydrate 100 Mg Capsule) 100 mg PO BID [facility] Last Admin: 10/22/23 10:47 Dose: 100 mg Hydroxyzine HCl (Hydroxyzine Hcl 25 Mg Tablet) 25 mg PO BID PRN PRN Reason: itch Last Admin: 10/17/23 20:52 Dose: 25 mg Loperamide HCl (Loperamide Hcl 2 Mg Capsule) 2 mg PO TID [facility] Last Admin: 10/22/23 15:26 Dose: 2 mg Magnesium Hydroxide (Milk Of Magnesia 30 Ml Oral.Susp) 30 ml PO DAILY PRN PRN Reason: Constipation Melatonin (Melatonin 3 Mg Tablet) 6 mg PO BEDTIME PRN PRN Reason: Insomnia Methadone HCl (Methadone Hcl 20 Mg/2 Ml Oral.Conc) 40 mg PO DAILY [facility] Last Admin: 10/22/23 10:48 Dose: 40 mg Mirtazapine (Mirtazapine 30 Mg Tablet) 30 mg PO BEDTIME [facility] Last Admin: 10/21/23 21:59 Dose: 30 mg Multi-Ingred Cream/Lotion/Oil/Oint (Mineral Oil/Petrolatum,White 106 Gm Tube) 1 appl TOPICAL TID [facility]; Protocol Last Admin: 10/22/23 15:26 Dose: 1 appl Nicotine (Nicotine 21 Mg Patch.Td24) 21 mg TRANSDERMA DAILY PRN PRN Reason: nicotine craving Nicotine Polacrilex (Nicotine Polacrilex 2 Mg Gum) 4 mg BUCCAL Q2H PRN PRN Reason: Nicotine Cravings Omeprazole (Omeprazole 20 Mg Capsule.Dr) 20 mg PO DAILY@0630 [facility] Last Admin: 10/22/23 07:19 Dose: Not Given Rivaroxaban (Rivaroxaban 20 Mg Tablet) 20 mg PO DAILY@1800 [facility] Last Admin: 10/21/23 18:31 Dose: 20 mg Trazodone HCl (Trazodone Hcl 50 Mg Tablet) 50 mg PO BEDTIME MRX1 PRN PRN Reason: Insomnia Last Admin: 10/20/23 21:21 Dose: 50 mg Allergies Allergies Allergy/AdvReac Type Severity Reaction Status Date / Time haloperidol [From Haldol] AdvReac see note Verified 10/09/23 10:18 Assessment & Plan Assessment & Plan (1) MDD (major depressive disorder), recurrent, severe, with psychosis: Status: Acute Code(s): F33.3 - Major depressive disorder, recurrent, severe with psychotic symptoms (2) Post traumatic stress disorder (PTSD): Status: Acute Code(s): F43.10 - Post-traumatic stress disorder, unspecified (3) Opioid use disorder: Status: Acute Code(s): F11.90 - Opioid use, unspecified, uncomplicated (4) Cocaine use disorder: Status: Acute Code(s): F14.10 - Cocaine abuse, uncomplicated (5) Crohn's disease: Status: Acute Code(s): K50.90 - Crohn's disease, unspecified, without complications (6) Colostomy in place: Status: Acute Code(s): Z93.3 - Colostomy status (7) Ileostomy in place: Status: Acute Code(s): Z93.2 - Ileostomy status Plan Patient is a 48-year-old male with history of depression, opioid/cocaine abuse, Crohn's disease large bowel obstruction due to sigmoid stricture s/p colostomy, multiple psychiatric hospitalizations who presented to the ED for intentional drug overdose. Patient was found unresponsive on the back porch of a stranger's house after having injected cocaine/heroin into his neck. Patient was given Narcan and brought to the hospital. Patient reports that he intentionally overdosed in a suicide attempt following relational strife with his and being kicked out of the house. He was medically admitted and treated for rhabdomyolysis. Patient medically cleared and presents to for psychiatric admission. Patient reports that up until about 5 days ago he was doing well, good mood, taking his medications regularly and remain sober. Patient got into an argument with his , the details of which he did not disclose, and got kicked out of the house. Patient said that this triggered strong emotional response and he relapsed for the past 5 days; with continued depression and falling into despair patient got suicidal and intentionally overdosed on heroin cocaine. Patient remains depressed with intermittent suicidality present; he asks to get on methadone which he was on years ago, saying he needs this initially to help him stay sober and will get off it later on. He is amenable to medication adjustments, increasing antidepressants. Formulation/clinical reasoning: Will continue home medication; patient asking to be started on methadone which he has been on in the past to help him remain sober Continues to have SI though seems mostly related to being discharged to homelessness Will hold off increasing antidepressants for now since patient was on these doses for quite awhile, doing well hospital course: 10/12 Patient more open today. Shares more history. Says his girlfriend from cancer May 06; at that time he was hospitalized. He was doing better for while but got depressed again and was psychiatrically hospitalized at [facility] early this September. When he was discharged she went back to his female friend's house where he had been living in [place] but when he got there she told him he had a move out with little explanation. He said that is when he relapsed once on the street. Patient said because of the [facility] hospitalization he missed his surgical appointment to have his colostomy reversed. His worry is that if he is discharged back to the street, he will again relapse and again miss this important surgery. Patient says suicidality comes and goes but increases when he thinks of being homeless. -patient complained of some discomfort an anal region which resolved on its own after a shower 10/13 still depressed but slowly improving. Agrees to behavioral activation and push himself to attend groups. Increased mirtazapine to 15 mg which he agrees can be increased further if needed. Increasing methadone to 30 mg which he feels should be sufficient for staying sober. 10/17 increase Remeron to 30 mg; has outpatient appointment with surgical team WednesdayOctober 21 which he wants to attend. 10/18 patient remains depressed but says he stable; no SI and future oriented. He continues to want to discharge Wednesday to go to pre surgery appointment. Agrees to switching Wellbutrin to immediate release given poor absorption in the colon -team working on discharge planning in finding some housing until patient can get surgery. 10/19 patient depressed, but still feels stable, safe and wants to go to appointment on Wednesday, hopeful of getting some type of housing but saying he will take his chances if not. Hoping that immediate release Wellbutrin can make a difference; consider increasing it to t.i.d. 10/20 Patient tells commercial insurance underwriter he wants to discharge tomorrow to his appointment. However also in the morning, he told a nurse that he plans to overdose after his appointment. Venue Coordinator returned later in the day to discuss this with patient who said that he was feeling upset and angry this morning and did say that however those feelings are gone now and he just wants to go to his pre-surgical appointment; he says that if they are not able to admit him for surgery at this appointment, he will just go and get a hotel until surgery is ready, saying he has enough money. Venue Coordinator came back again to discuss this further and patient said something to the effect of okay let me be open... There is a fight in my head whether to do something stupid or not... He goes on to say that he is worried that once discharged, he will cave in, use, get very angry at himself and intentionally overdose. He says I know depression will always be there... Sometimes I can control it... Patient says he does not want to , and very much wants surgery but he is currently worried about his ability to remain safe. He agrees that if he were able to get into a medical respite that would make a tremendous difference as he would be in a structured environment. 10/21 same presentation; continue current treatment plan Venue Coordinator and social media community manager communicating with [facility] regarding dispo; rescheduled pre-surgical appointment -commercial insurance underwriter agrees that patient wants to be safe and wants to get surgery; however given his ostomy, he has not been digesting antidepressant medication, leaving his depression poorly treated; his medication was recently switched to immediate release to help with absorption and hopefully to help with depression. It is commercial insurance underwriter's opinion that for now, it is in patient's best interest to remain on the unit to help establish a more supportive disposition. Although patient very much does not want to miss his appointment this Wednesday, he is amenable to staying longer and getting the appointment rescheduled for the same reason. Plan: CV Q 15 minute checks Continue Bupropion Immediate Release 100 mg T.i.d.; due to ostomy, long-acting not absorbed DC bupropion HCl XL 300 mg daily plus bupropion HCl XL 150 mg daily Increased to methadone 40 mg daily; patient asked for increase due to cravings Continue chlorpromazine 100 mg PO TID Continue clonazepam 2 mg PO BID Continue mirtazapine 30mg PO BEDTIME; may titrate further for continued depression Added clonidine p.r.n. for anxiety melatonin 3 mg PO BEDTIME PRN Continue loperamide 2 mg PO TID Continue Xarelto 20 mg PO DAILY@1800 Continue lansoprazole 30 mg Capsule,Delayed Release(Dr/Ec) daily Continue methenamine mandelate 1 g PO QID Patient educated on: diagnosis, medication risk/benefits, substance abuse and medical condition [facility] surgeon Dr. Myla Shi appointment set for October 21 10:45 regarding ostomy: both ileostomy and colostomy in place. Both are viable appearing. Can change ileostomy appliance every 3-4 days and as needed. Empty appliance Q shift and as needed. Can keep the colostomy covered with dry dressing such as allevyn pads or nonwoven sponge, as it is being proximally diverted. He has a very large parastomal hernia at the ileostomy site which is soft and reducible, no current intervention needed. consulted the drying oven tenderFalguni to assist with education and appliance changes. Patient educated on: diagnosis, medication risk/benefits, therapeutic strategies and medical condition Informed Consent: understands Reason for continued inpatient stay Substantial Risk for: rapid decompensation Time Spent With Patient Time: Total time managing care of this patient today ____ minutes.
[2023-10-22] MEDS: Rivaroxaban 20 MG TABLET PO (19:56)
[2023-10-22] MEDS: Mirtazapine 30 MG TABLET PO (20:28)
[2023-10-23 08:28] VITALS: BP 115/59; PULSE 72; RESP 16; TEMP 36.4; O2SAT 92
[2023-10-23] MEDS: Loperamide HCl 2 MG CAPSULE PO ×3 (08:32→22:06)
[2023-10-23] MEDS: Doxycycline Monohydrate 100 MG CAPSULE PO ×2 (08:32→22:06)
[2023-10-23] MEDS: chlorproMAZINE HCl 100 MG TABLET PO ×3 (08:32→22:06)
[2023-10-23] MEDS: methADONE HCl 20 MG/2 ML ORAL.CONC 40 MG PO (08:32)
[2023-10-23] MEDS: clonazePAM 1 MG TABLET PO ×2 (08:32→22:06)
[2023-10-23] MEDS: Omeprazole 20 MG CAPSULE.DR PO (08:33)
[2023-10-23] MEDS: buPROPion HCL 100 MG TABLET PO ×3 (08:33→22:06)
--- NOTE | 2023-10-23 10:05 | P.PNPSI_ITS ---
Subjective Subjective Date of Service: 10/23/23 Reason For Visit: opiate overdose with suicidal intent Interim History: Met with patient; discussed with team Patient is mostly isolative in his room and withdrawn. Reports his mood is alright . Denies SI/HI/AVH. Tolerating current medication regimen. No side effects. Review of Systems Constitutional: Denies chills and Denies fever(s) Gastrointestinal: Denies abdominal pain, Denies nausea and Denies vomiting Skin/Breast: Denies rash Mental Status Exam Mental Status Exam Narrative: Pt is alert and oriented; behavior is cooperative, calm; patient is not in distress; dressed casually, overall adequately groomed;; mood is described as allright and affect congruent, downcast; eye contact appropriate; Speech is normal volume, rate; some psychomotor retardation present; thought process is organized and goal directed; Thought content is on medical treatment, psychosocial stressors; otherwise pertinent to relevant topics and without any delusional content, paranoid ideations or grandiosity; no SI; no HI. Denies AVH and There is no evidence of perceptual disturbance. Patients insight and judgment impaired. Diagnostics Vital Signs (24Hr): Vital Signs - 24 hr 10/23/23 08:28 Temperature 97.6 F Pulse Rate 72 Respiratory Rate 16 Blood Pressure 115/59 L Pulse Oximetry 92 Oxygen Delivery Method Room Air BMI result Body Mass Index 27.2 Medications Medications Current Medications Acetaminophen (Acetaminophen 325 Mg Tablet) 650 mg PO Q6H PRN PRN Reason: Headache/Pain Mild Scale (1-3) Last Admin: 10/18/23 16:05 Dose: 650 mg Al Hydroxide/Mg Hydroxide (Magnesium Hydrox/Alum Hydrox 30 Ml Oral.Susp) 30 ml PO Q6H PRN PRN Reason: Heartburn/Nausea Benzonatate (Benzonatate 100 Mg Capsule) 100 mg PO TID PRN PRN Reason: Cough Bupropion HCl (Bupropion Hcl 100 Mg Tablet) 100 mg PO TID [facility] Last Admin: 10/23/23 08:33 Dose: 100 mg Chlorpromazine HCl (Chlorpromazine Hcl 100 Mg Tablet) 100 mg PO TID [facility] Last Admin: 10/23/23 08:32 Dose: 100 mg Clonazepam (Clonazepam 1 Mg Tablet) 1 mg PO BID [facility] Last Admin: 10/23/23 08:32 Dose: 1 mg Clonidine HCl (Clonidine Hcl 0.1 Mg Tablet) 0.1 mg PO Q4H PRN; Protocol PRN Reason: moderate anxiety Last Admin: 10/15/23 12:32 Dose: 0.1 mg Docusate Sodium (Docusate Sodium 100 Mg Capsule) 100 mg PO DAILY PRN PRN Reason: Constipation Doxycycline Monohydrate (Doxycycline Monohydrate 100 Mg Capsule) 100 mg PO BID [facility] Last Admin: 10/23/23 08:32 Dose: 100 mg Hydroxyzine HCl (Hydroxyzine Hcl 25 Mg Tablet) 25 mg PO BID PRN PRN Reason: itch Last Admin: 10/17/23 20:52 Dose: 25 mg Loperamide HCl (Loperamide Hcl 2 Mg Capsule) 2 mg PO TID [facility] Last Admin: 10/23/23 08:32 Dose: 2 mg Magnesium Hydroxide (Milk Of Magnesia 30 Ml Oral.Susp) 30 ml PO DAILY PRN PRN Reason: Constipation Melatonin (Melatonin 3 Mg Tablet) 6 mg PO BEDTIME PRN PRN Reason: Insomnia Methadone HCl (Methadone Hcl 20 Mg/2 Ml Oral.Conc) 40 mg PO DAILY [facility] Last Admin: 10/23/23 08:32 Dose: 40 mg Mirtazapine (Mirtazapine 30 Mg Tablet) 30 mg PO BEDTIME [facility] Last Admin: 10/22/23 20:28 Dose: 30 mg Multi-Ingred Cream/Lotion/Oil/Oint (Mineral Oil/Petrolatum,White 106 Gm Tube) 1 appl TOPICAL TID [facility]; Protocol Last Admin: 10/23/23 08:34 Dose: Not Given Nicotine (Nicotine 21 Mg Patch.Td24) 21 mg TRANSDERMA DAILY PRN PRN Reason: nicotine craving Nicotine Polacrilex (Nicotine Polacrilex 2 Mg Gum) 4 mg BUCCAL Q2H PRN PRN Reason: Nicotine Cravings Omeprazole (Omeprazole 20 Mg Capsule.Dr) 20 mg PO DAILY@0630 [facility] Last Admin: 10/23/23 08:33 Dose: 20 mg Rivaroxaban (Rivaroxaban 20 Mg Tablet) 20 mg PO DAILY@1800 [facility] Last Admin: 10/22/23 19:56 Dose: 20 mg Trazodone HCl (Trazodone Hcl 50 Mg Tablet) 50 mg PO BEDTIME MRX1 PRN PRN Reason: Insomnia Last Admin: 10/20/23 21:21 Dose: 50 mg Allergies Allergies Allergy/AdvReac Type Severity Reaction Status Date / Time haloperidol [From Haldol] AdvReac see note Verified 10/09/23 10:18 Assessment & Plan Assessment & Plan (1) MDD (major depressive disorder), recurrent, severe, with psychosis: Status: Acute Code(s): F33.3 - Major depressive disorder, recurrent, severe with psychotic symptoms (2) Post traumatic stress disorder (PTSD): Status: Acute Code(s): F43.10 - Post-traumatic stress disorder, unspecified (3) Opioid use disorder: Status: Acute Code(s): F11.90 - Opioid use, unspecified, uncomplicated (4) Cocaine use disorder: Status: Acute Code(s): F14.10 - Cocaine abuse, uncomplicated (5) Crohn's disease: Status: Acute Code(s): K50.90 - Crohn's disease, unspecified, without complications (6) Colostomy in place: Status: Acute Code(s): Z93.3 - Colostomy status (7) Ileostomy in place: Status: Acute Code(s): Z93.2 - Ileostomy status Plan Patient is a 48-year-old male with history of depression, opioid/cocaine abuse, Crohn's disease large bowel obstruction due to sigmoid stricture s/p colostomy, multiple psychiatric hospitalizations who presented to the ED for intentional drug overdose. Patient was found unresponsive on the back porch of a stranger's house after having injected cocaine/heroin into his neck. Patient was given Narcan and brought to the hospital. Patient reports that he intentionally overdosed in a suicide attempt following relational strife with his and being kicked out of the house. He was medically admitted and treated for rhabdomyolysis. Patient medically cleared and presents to for psychiatric admission. Patient reports that up until about 5 days ago he was doing well, good mood, taking his medications regularly and remain sober. Patient got into an argument with his , the details of which he did not disclose, and got kicked out of the house. Patient said that this triggered strong emotional response and he relapsed for the past 5 days; with continued depression and falling into despair patient got suicidal and intentionally overdosed on heroin cocaine. Patient remains depressed with intermittent suicidality present; he asks to get on methadone which he was on years ago, saying he needs this initially to help him stay sober and will get off it later on. He is amenable to medication adjustments, increasing antidepressants. Formulation/clinical reasoning: Will continue home medication; patient asking to be started on methadone which he has been on in the past to help him remain sober Continues to have SI though seems mostly related to being discharged to homelessness Will hold off increasing antidepressants for now since patient was on these doses for quite awhile, doing well hospital course: 10/12 Patient more open today. Shares more history. Says his girlfriend from cancer May 06; at that time he was hospitalized. He was doing better for while but got depressed again and was psychiatrically hospitalized at [facility] early this September. When he was discharged she went back to his female friend's house where he had been living in [place] but when he got there she told him he had a move out with little explanation. He said that is when he relapsed once on the street. Patient said because of the [facility] hospitalization he missed his surgical appointment to have his colostomy reversed. His worry is that if he is discharged back to the street, he will again relapse and again miss this important surgery. Patient says suicidality comes and goes but increases when he thinks of being homeless. -patient complained of some discomfort an anal region which resolved on its own after a shower 10/13 still depressed but slowly improving. Agrees to behavioral activation and push himself to attend groups. Increased mirtazapine to 15 mg which he agrees can be increased further if needed. Increasing methadone to 30 mg which he feels should be sufficient for staying sober. 10/17 increase Remeron to 30 mg; has outpatient appointment with surgical team WednesdayOctober 21 which he wants to attend. 10/18 patient remains depressed but says he stable; no SI and future oriented. He continues to want to discharge Wednesday to go to pre surgery appointment. Agrees to switching Wellbutrin to immediate release given poor absorption in the colon -team working on discharge planning in finding some housing until patient can get surgery. 10/19 patient depressed, but still feels stable, safe and [facility], hopeful of getting some type of housing but saying he will take his chances if not. Hoping that immediate release Wellbutrin can make a difference; consider increasing it to t.i.d. 10/20 Patient tells blog writer he wants to discharge tomorrow to his appointment. However also in the morning, he told a nurse that he plans to overdose after his appointment. Demo Event Specialist returned later in the day to discuss this with patient who said that he was feeling upset and angry this morning and did say that however those feelings are gone now and he just wants to go to his pre-surgical appointment; he says that if they are not able to admit him for surgery at this appointment, he will just go and get a hotel until surgery is ready, saying he has enough money. Demo Event Specialist came back again to discuss this further and patient said something to the effect of okay let me be open... There is a fight in my head whether to do something stupid or not... He goes on to say that he is worried that once discharged, he will cave in, use, get very angry at himself and intentionally overdose. He says I know depression will always be there... Sometimes I can control it... Patient says he does not want to , and very much wants surgery but he is currently worried about his ability to remain safe. He agrees that if he were able to get into a medical respite that would make a tremendous difference as he would be in a structured environment. 10/21 same presentation; continue current treatment plan Demo Event Specialist and vp digital marketing social media and crm communicating with [facility] regarding dispo; rescheduled pre-surgical appointment -blog writer agrees that patient wants to be safe and wants to get surgery; however given his ostomy, he has not been digesting antidepressant medication, leaving his depression poorly treated; his medication was recently switched to immediate release to help with absorption and hopefully to help with depression. It is blog writer's opinion that for now, it is in patient's best interest to remain on the unit to help establish a more supportive disposition. Although patient very much does not want to miss his appointment this Wednesday, he is amenable to staying longer and getting the appointment rescheduled for the same reason. Plan: CV Q 15 minute checks Continue Bupropion Immediate Release 100 mg T.i.d.; due to ostomy, long-acting not absorbed DC bupropion HCl XL 300 mg daily plus bupropion HCl XL 150 mg daily Increased to methadone 40 mg daily; patient asked for increase due to cravings Continue chlorpromazine 100 mg PO TID Continue clonazepam 2 mg PO BID Continue mirtazapine 30mg PO BEDTIME; may titrate further for continued depression Added clonidine p.r.n. for anxiety melatonin 3 mg PO BEDTIME PRN Continue loperamide 2 mg PO TID Continue Xarelto 20 mg PO DAILY@1800 Continue lansoprazole 30 mg Capsule,Delayed Release(Dr/Ec) daily Continue methenamine mandelate 1 g PO QID Patient educated on: diagnosis, medication risk/benefits, substance abuse and medical condition [facility] surgeon Dr. Myla Shi appointment set for October 21 10:45 regarding ostomy: both ileostomy and colostomy in place. Both are viable appearing. Can change ileostomy appliance every 3-4 days and as needed. Empty appliance Q shift and as needed. Can keep the colostomy covered with dry dressing such as allevyn pads or nonwoven sponge, as it is being proximally diverted. He has a very large parastomal hernia at the ileostomy site which is soft and reducible, no current intervention needed. consulted the strategic planning managerFalguni to assist with education and appliance changes. 10/22: continue current management and treatment plan. Reason for continued inpatient stay Substantial Risk for: harm to self, rapid decompensation and med/psych decompensation Time Spent With Patient Time: Total time managing care of this patient today ____ minutes.
[2023-10-23] MEDS: Mineral Oil/Petrolatum,White 106 GM Tube 1 APPL TOPICAL (14:37)
[2023-10-23] MEDS: Rivaroxaban 20 MG TABLET PO (19:08)
[2023-10-23 20:00] VITALS: BP 100/56; PULSE 78; RESP 18; TEMP 37.2; O2SAT 96
[2023-10-23] MEDS: Mirtazapine 30 MG TABLET PO (22:06)
[2023-10-23] MEDS: traZODone HCL 50 MG TABLET PO (22:06)
[2023-10-24 07:57] VITALS: BP 122/66; PULSE 71; RESP 16; TEMP 36.9; O2SAT 95
[2023-10-24] MEDS: methADONE HCl 20 MG/2 ML ORAL.CONC 40 MG PO (09:12)
[2023-10-24] MEDS: Loperamide HCl 2 MG CAPSULE PO ×3 (09:13→21:40)
[2023-10-24] MEDS: chlorproMAZINE HCl 100 MG TABLET PO ×3 (09:13→21:41)
[2023-10-24] MEDS: clonazePAM 1 MG TABLET PO ×2 (09:14→21:41)
[2023-10-24] MEDS: buPROPion HCL 100 MG TABLET PO ×3 (09:14→21:40)
[2023-10-24] MEDS: Doxycycline Monohydrate 100 MG CAPSULE PO ×2 (09:14→21:41)
[2023-10-24] MEDS: Magnesium Hydrox/Alum Hydrox 30 ML ORAL.SUSP PO (09:54)
[2023-10-24] MEDS: Mineral Oil/Petrolatum,White 106 GM Tube 1 APPL TOPICAL (14:51)
--- NOTE | 2023-10-24 17:14 | HO.PSYCHPN ---
Subjective Subjective Date of Service: 10/24/23 Reason For Visit: opiate overdose with suicidal intent Interim History: Met with patient; discussed with team Patient is mostly isolative in his room and withdrawn. Reports his mood is alright . Denies SI/HI/AVH. Tolerating current medication regimen. No side effects. Review of Systems Constitutional: Denies chills and Denies fever(s) Gastrointestinal: Denies abdominal pain, Denies nausea and Denies vomiting Skin/Breast: Denies rash Mental Status Exam Mental Status Exam Narrative: Pt is alert and oriented; behavior is cooperative, calm; patient is not in distress; dressed casually, overall adequately groomed;; mood is described as allright and affect congruent, downcast; eye contact appropriate; Speech is normal volume, rate; some psychomotor retardation present; thought process is organized and goal directed; Thought content is on medical treatment, psychosocial stressors; otherwise pertinent to relevant topics and without any delusional content, paranoid ideations or grandiosity; no SI; no HI. Denies AVH and There is no evidence of perceptual disturbance. Patients insight and judgment impaired. Diagnostics Vital Signs (24Hr): Vital Signs - 24 hr 10/23/23 20:00 10/24/23 07:57 Temperature 98.9 F 98.4 F Pulse Rate 78 71 Respiratory Rate 18 16 Blood Pressure 100/56 L 122/66 Pulse Oximetry 96 95 Oxygen Delivery Method Room Air Room Air BMI result Body Mass Index 27.2 Medications Medications Current Medications Acetaminophen (Acetaminophen 325 Mg Tablet) 650 mg PO Q6H PRN PRN Reason: Headache/Pain Mild Scale (1-3) Last Admin: 10/18/23 16:05 Dose: 650 mg Al Hydroxide/Mg Hydroxide (Magnesium Hydrox/Alum Hydrox 30 Ml Oral.Susp) 30 ml PO Q6H PRN PRN Reason: Heartburn/Nausea Last Admin: 10/24/23 09:54 Dose: 30 ml Benzonatate (Benzonatate 100 Mg Capsule) 100 mg PO TID PRN PRN Reason: Cough Bupropion HCl (Bupropion Hcl 100 Mg Tablet) 100 mg PO TID [facility] Last Admin: 10/24/23 14:50 Dose: 100 mg Chlorpromazine HCl (Chlorpromazine Hcl 100 Mg Tablet) 100 mg PO TID [facility] Last Admin: 10/24/23 14:50 Dose: 100 mg Clonazepam (Clonazepam 1 Mg Tablet) 1 mg PO BID [facility] Last Admin: 10/24/23 09:14 Dose: 1 mg Clonidine HCl (Clonidine Hcl 0.1 Mg Tablet) 0.1 mg PO Q4H PRN; Protocol PRN Reason: moderate anxiety Last Admin: 10/15/23 12:32 Dose: 0.1 mg Docusate Sodium (Docusate Sodium 100 Mg Capsule) 100 mg PO DAILY PRN PRN Reason: Constipation Doxycycline Monohydrate (Doxycycline Monohydrate 100 Mg Capsule) 100 mg PO BID [facility] Last Admin: 10/24/23 09:14 Dose: 100 mg Hydroxyzine HCl (Hydroxyzine Hcl 25 Mg Tablet) 25 mg PO BID PRN PRN Reason: itch Last Admin: 10/17/23 20:52 Dose: 25 mg Loperamide HCl (Loperamide Hcl 2 Mg Capsule) 2 mg PO TID [facility] Last Admin: 10/24/23 14:50 Dose: 2 mg Magnesium Hydroxide (Milk Of Magnesia 30 Ml Oral.Susp) 30 ml PO DAILY PRN PRN Reason: Constipation Melatonin (Melatonin 3 Mg Tablet) 6 mg PO BEDTIME PRN PRN Reason: Insomnia Methadone HCl (Methadone Hcl 20 Mg/2 Ml Oral.Conc) 40 mg PO DAILY [facility] Last Admin: 10/24/23 09:12 Dose: 40 mg Mirtazapine (Mirtazapine 30 Mg Tablet) 30 mg PO BEDTIME [facility] Last Admin: 10/23/23 22:06 Dose: 30 mg Multi-Ingred Cream/Lotion/Oil/Oint (Mineral Oil/Petrolatum,White 106 Gm Tube) 1 appl TOPICAL TID [facility]; Protocol Last Admin: 10/24/23 14:51 Dose: 1 appl Nicotine (Nicotine 21 Mg Patch.Td24) 21 mg TRANSDERMA DAILY PRN PRN Reason: nicotine craving Nicotine Polacrilex (Nicotine Polacrilex 2 Mg Gum) 4 mg BUCCAL Q2H PRN PRN Reason: Nicotine Cravings Omeprazole (Omeprazole 20 Mg Capsule.Dr) 20 mg PO DAILY@0630 [facility] Last Admin: 10/24/23 05:53 Dose: Not Given Rivaroxaban (Rivaroxaban 20 Mg Tablet) 20 mg PO DAILY@1800 [facility] Last Admin: 10/23/23 19:08 Dose: 20 mg Trazodone HCl (Trazodone Hcl 50 Mg Tablet) 50 mg PO BEDTIME MRX1 PRN PRN Reason: Insomnia Last Admin: 10/23/23 22:06 Dose: 50 mg Allergies Allergies Allergy/AdvReac Type Severity Reaction Status Date / Time haloperidol [From Haldol] AdvReac see note Verified 10/09/23 10:18 Assessment & Plan Assessment & Plan (1) MDD (major depressive disorder), recurrent, severe, with psychosis: Status: Acute Code(s): F33.3 - Major depressive disorder, recurrent, severe with psychotic symptoms (2) Post traumatic stress disorder (PTSD): Status: Acute Code(s): F43.10 - Post-traumatic stress disorder, unspecified (3) Opioid use disorder: Status: Acute Code(s): F11.90 - Opioid use, unspecified, uncomplicated (4) Cocaine use disorder: Status: Acute Code(s): F14.10 - Cocaine abuse, uncomplicated (5) Crohn's disease: Status: Acute Code(s): K50.90 - Crohn's disease, unspecified, without complications (6) Colostomy in place: Status: Acute Code(s): Z93.3 - Colostomy status (7) Ileostomy in place: Status: Acute Code(s): Z93.2 - Ileostomy status Plan Patient is a 48-year-old male with history of depression, opioid/cocaine abuse, Crohn's disease large bowel obstruction due to sigmoid stricture s/p colostomy, multiple psychiatric hospitalizations who presented to the ED for intentional drug overdose. Patient was found unresponsive on the back porch of a stranger's house after having injected cocaine/heroin into his neck. Patient was given Narcan and brought to the hospital. Patient reports that he intentionally overdosed in a suicide attempt following relational strife with his and being kicked out of the house. He was medically admitted and treated for rhabdomyolysis. Patient medically cleared and presents to for psychiatric admission. Patient reports that up until about 5 days ago he was doing well, good mood, taking his medications regularly and remain sober. Patient got into an argument with his , the details of which he did not disclose, and got kicked out of the house. Patient said that this triggered strong emotional response and he relapsed for the past 5 days; with continued depression and falling into despair patient got suicidal and intentionally overdosed on heroin cocaine. Patient remains depressed with intermittent suicidality present; he asks to get on methadone which he was on years ago, saying he needs this initially to help him stay sober and will get off it later on. He is amenable to medication adjustments, increasing antidepressants. Formulation/clinical reasoning: Will continue home medication; patient asking to be started on methadone which he has been on in the past to help him remain sober Continues to have SI though seems mostly related to being discharged to homelessness Will hold off increasing antidepressants for now since patient was on these doses for quite awhile, doing well hospital course: 10/12 Patient more open today. Shares more history. Says his girlfriend from cancer May 06; at that time he was hospitalized. He was doing better for while but got depressed again and was psychiatrically hospitalized at [facility] early this September. When he was discharged she went back to his female friend's house where he had been living in [place] but when he got there she told him he had a move out with little explanation. He said that is when he relapsed once on the street. Patient said because of the [facility] hospitalization he missed his surgical appointment to have his colostomy reversed. His worry is that if he is discharged back to the street, he will again relapse and again miss this important surgery. Patient says suicidality comes and goes but increases when he thinks of being homeless. -patient complained of some discomfort an anal region which resolved on its own after a shower 10/13 still depressed but slowly improving. Agrees to behavioral activation and push himself to attend groups. Increased mirtazapine to 15 mg which he agrees can be increased further if needed. Increasing methadone to 30 mg which he feels should be sufficient for staying sober. 10/17 increase Remeron to 30 mg; has outpatient appointment with surgical team WednesdayOctober 21 which he wants to attend. 10/18 patient remains depressed but says he stable; no SI and future oriented. He continues to want to discharge Wednesday to go to pre surgery appointment. Agrees to switching Wellbutrin to immediate release given poor absorption in the colon -team working on discharge planning in finding some housing until patient can get surgery. 10/19 patient depressed, but still feels stable, safe and wants to go to appointment on Wednesday, hopeful of getting some type of housing but saying he will take his chances if not. Hoping that immediate release Wellbutrin can make a difference; consider increasing it to t.i.d. 10/20 Patient tells sign writer hand he wants to discharge tomorrow to his appointment. However also in the morning, he told a nurse that he plans to overdose after his appointment. [employer] returned later in the day to discuss this with patient who said that he was feeling upset and angry this morning and did say that however those feelings are gone now and he just wants to go to his pre-surgical appointment; he says that if they are not able to admit him for surgery at this appointment, he will just go and get a hotel until surgery is ready, saying he has enough money. [employer] came back again to discuss this further and patient said something to the effect of okay let me be open... There is a fight in my head whether to do something stupid or not... He goes on to say that he is worried that once discharged, he will cave in, use, get very angry at himself and intentionally overdose. He says I know depression will always be there... Sometimes I can control it... Patient says he does not want to , and very much wants surgery but he is currently worried about his ability to remain safe. He agrees that if he were able to get into a medical respite that would make a tremendous difference as he would be in a structured environment. 10/21 same presentation; continue current treatment plan [employer] and social media sr strategy manager communicating with [facility] regarding dispo; rescheduled pre-surgical appointment -sign writer hand agrees that patient wants to be safe and wants to get surgery; however given his ostomy, he has not been digesting antidepressant medication, leaving his depression poorly treated; his medication was recently switched to immediate release to help with absorption and hopefully to help with depression. It is sign writer hand's opinion that for now, it is in patient's best interest to remain on the unit to help establish a more supportive disposition. Although patient very much does not want to miss his appointment this Wednesday, he is amenable to staying longer and getting the appointment rescheduled for the same reason. Plan: CV Q 15 minute checks Continue Bupropion Immediate Release 100 mg T.i.d.; due to ostomy, long-acting not absorbed DC bupropion HCl XL 300 mg daily plus bupropion HCl XL 150 mg daily Increased to methadone 40 mg daily; patient asked for increase due to cravings Continue chlorpromazine 100 mg PO TID Continue clonazepam 2 mg PO BID Continue mirtazapine 30mg PO BEDTIME; may titrate further for continued depression Added clonidine p.r.n. for anxiety melatonin 3 mg PO BEDTIME PRN Continue loperamide 2 mg PO TID Continue Xarelto 20 mg PO DAILY@1800 Continue lansoprazole 30 mg Capsule,Delayed Release(Dr/Ec) daily Continue methenamine mandelate 1 g PO QID Patient educated on: diagnosis, medication risk/benefits, substance abuse and medical condition [facility] surgeon Dr. Myla Shi appointment set for October 21 10:45 regarding ostomy: both ileostomy and colostomy in place. Both are viable appearing. Can change ileostomy appliance every 3-4 days and as needed. Empty appliance Q shift and as needed. Can keep the colostomy covered with dry dressing such as allevyn pads or nonwoven sponge, as it is being proximally diverted. He has a very large parastomal hernia at the ileostomy site which is soft and reducible, no current intervention needed. consulted the building construction ironworkerFalguni to assist with education and appliance changes. 10/22: continue current management and treatment plan. 10/23: continue current management and treatment plan. Reason for continued inpatient stay Substantial Risk for: harm to self, inability to function, rapid decompensation and med/psych decompensation Time Spent With Patient Time: Total time managing care of this patient today ____ minutes.
[2023-10-24] MEDS: Rivaroxaban 20 MG TABLET PO (17:54)
[2023-10-24] MEDS: Mirtazapine 30 MG TABLET PO (21:40)
[2023-10-25] MEDS: chlorproMAZINE HCl 100 MG TABLET PO ×3 (09:44→21:33)
[2023-10-25] MEDS: Doxycycline Monohydrate 100 MG CAPSULE PO ×2 (09:45→21:32)
[2023-10-25] MEDS: clonazePAM 1 MG TABLET PO ×2 (09:45→21:32)
[2023-10-25] MEDS: buPROPion HCL 100 MG TABLET PO ×3 (09:45→21:33)
[2023-10-25] MEDS: Loperamide HCl 2 MG CAPSULE PO ×3 (09:45→21:32)
[2023-10-25] MEDS: methADONE HCl 20 MG/2 ML ORAL.CONC 40 MG PO (09:47)
[2023-10-25 10:00] VITALS: BP 000/00; PULSE 77; RESP 16; TEMP 36.8; O2SAT 96
--- NOTE | 2023-10-25 10:05 | HO.PSYCHPN ---
Subjective Subjective Date of Service: 10/25/23 Reason For Visit: opiate overdose with suicidal intent Interim History: Met with patient; discussed with team Patient remains depressed however he is not suicidal and is future oriented. He is focused on keeping himself stable and safe so he can go to his pre surgery appointment and then get surgery for reversal of colostomy. He does not think that the Wellbutrin immediate release has made any difference in his mood but patient remains pushing himself to be engaged in his grateful for help received. Discussed disposition options and patient amenable to respite; he will also continue to follow up with [facility]. Patient does have a friend in the community who might have a place that he can stay and is looking into that as well. Mental Status Exam Mental Status Exam Narrative: Pt is alert and oriented; behavior is cooperative, calm; patient is not in distress; dressed casually, overall adequately groomed;; mood is described as ok and affect congruent, downcast; eye contact appropriate; Speech is normal volume, rate; some psychomotor retardation present; thought process is organized and goal directed; Thought content is on medical treatment, psychosocial stressors; otherwise pertinent to relevant topics and without any delusional content, paranoid ideations or grandiosity; no SI; no HI. Denies AVH. There is no evidence of perceptual disturbance. Patients insight and judgment fair. Diagnostics Vital Signs (24Hr): BMI result Body Mass Index 27.2 Medications Medications Current Medications Acetaminophen (Acetaminophen 325 Mg Tablet) 650 mg PO Q6H PRN PRN Reason: Headache/Pain Mild Scale (1-3) Last Admin: 10/18/23 16:05 Dose: 650 mg Al Hydroxide/Mg Hydroxide (Magnesium Hydrox/Alum Hydrox 30 Ml Oral.Susp) 30 ml PO Q6H PRN PRN Reason: Heartburn/Nausea Last Admin: 10/24/23 09:54 Dose: 30 ml Benzonatate (Benzonatate 100 Mg Capsule) 100 mg PO TID PRN PRN Reason: Cough Bupropion HCl (Bupropion Hcl 100 Mg Tablet) 100 mg PO TID [facility] Last Admin: 10/25/23 09:45 Dose: 100 mg Chlorpromazine HCl (Chlorpromazine Hcl 100 Mg Tablet) 100 mg PO TID [facility] Last Admin: 10/25/23 09:44 Dose: 100 mg Clonazepam (Clonazepam 1 Mg Tablet) 1 mg PO BID [facility] Last Admin: 10/25/23 09:45 Dose: 1 mg Clonidine HCl (Clonidine Hcl 0.1 Mg Tablet) 0.1 mg PO Q4H PRN; Protocol PRN Reason: moderate anxiety Last Admin: 10/15/23 12:32 Dose: 0.1 mg Docusate Sodium (Docusate Sodium 100 Mg Capsule) 100 mg PO DAILY PRN PRN Reason: Constipation Doxycycline Monohydrate (Doxycycline Monohydrate 100 Mg Capsule) 100 mg PO BID [facility] Last Admin: 10/25/23 09:45 Dose: 100 mg Hydroxyzine HCl (Hydroxyzine Hcl 25 Mg Tablet) 25 mg PO BID PRN PRN Reason: itch Last Admin: 10/17/23 20:52 Dose: 25 mg Loperamide HCl (Loperamide Hcl 2 Mg Capsule) 2 mg PO TID [facility] Last Admin: 10/25/23 09:45 Dose: 2 mg Magnesium Hydroxide (Milk Of Magnesia 30 Ml Oral.Susp) 30 ml PO DAILY PRN PRN Reason: Constipation Melatonin (Melatonin 3 Mg Tablet) 6 mg PO BEDTIME PRN PRN Reason: Insomnia Methadone HCl (Methadone Hcl 20 Mg/2 Ml Oral.Conc) 40 mg PO DAILY [facility] Last Admin: 10/25/23 09:47 Dose: 40 mg Mirtazapine (Mirtazapine 30 Mg Tablet) 30 mg PO BEDTIME [facility] Last Admin: 10/24/23 21:40 Dose: 30 mg Multi-Ingred Cream/Lotion/Oil/Oint (Mineral Oil/Petrolatum,White 106 Gm Tube) 1 appl TOPICAL TID [facility]; Protocol Last Admin: 10/24/23 21:45 Dose: Not Given Nicotine (Nicotine 21 Mg Patch.Td24) 21 mg TRANSDERMA DAILY PRN PRN Reason: nicotine craving Nicotine Polacrilex (Nicotine Polacrilex 2 Mg Gum) 4 mg BUCCAL Q2H PRN PRN Reason: Nicotine Cravings Omeprazole (Omeprazole 20 Mg Capsule.Dr) 20 mg PO DAILY@0630 [facility] Last Admin: 10/25/23 07:19 Dose: Not Given Rivaroxaban (Rivaroxaban 20 Mg Tablet) 20 mg PO DAILY@1800 [facility] Last Admin: 10/24/23 17:54 Dose: 20 mg Trazodone HCl (Trazodone Hcl 50 Mg Tablet) 50 mg PO BEDTIME MRX1 PRN PRN Reason: Insomnia Last Admin: 10/23/23 22:06 Dose: 50 mg Allergies Allergies Allergy/AdvReac Type Severity Reaction Status Date / Time haloperidol [From Haldol] AdvReac see note Verified 10/09/23 10:18 Assessment & Plan Assessment & Plan (1) MDD (major depressive disorder), recurrent, severe, with psychosis: Status: Acute Code(s): F33.3 - Major depressive disorder, recurrent, severe with psychotic symptoms (2) Post traumatic stress disorder (PTSD): Status: Acute Code(s): F43.10 - Post-traumatic stress disorder, unspecified (3) Opioid use disorder: Status: Acute Code(s): F11.90 - Opioid use, unspecified, uncomplicated (4) Cocaine use disorder: Status: Acute Code(s): F14.10 - Cocaine abuse, uncomplicated (5) Crohn's disease: Status: Acute Code(s): K50.90 - Crohn's disease, unspecified, without complications (6) Colostomy in place: Status: Acute Code(s): Z93.3 - Colostomy status (7) Ileostomy in place: Status: Acute Code(s): Z93.2 - Ileostomy status Plan Patient is a 48-year-old male with history of depression, opioid/cocaine abuse, Crohn's disease large bowel obstruction due to sigmoid stricture s/p colostomy, multiple psychiatric hospitalizations who presented to the ED for intentional drug overdose. Patient was found unresponsive on the back porch of a stranger's house after having injected cocaine/heroin into his neck. Patient was given Narcan and brought to the hospital. Patient reports that he intentionally overdosed in a suicide attempt following relational strife with his and being kicked out of the house. He was medically admitted and treated for rhabdomyolysis. Patient medically cleared and presents to for psychiatric admission. Patient reports that up until about 5 days ago he was doing well, good mood, taking his medications regularly and remain sober. Patient got into an argument with his , the details of which he did not disclose, and got kicked out of the house. Patient said that this triggered strong emotional response and he relapsed for the past 5 days; with continued depression and falling into despair patient got suicidal and intentionally overdosed on heroin cocaine. Patient remains depressed with intermittent suicidality present; he asks to get on methadone which he was on years ago, saying he needs this initially to help him stay sober and will get off it later on. He is amenable to medication adjustments, increasing antidepressants. Formulation/clinical reasoning: Will continue home medication; patient asking to be started on methadone which he has been on in the past to help him remain sober Continues to have SI though seems mostly related to being discharged to homelessness Will hold off increasing antidepressants for now since patient was on these doses for quite awhile, doing well hospital course: 10/12 Patient more open today. Shares more history. Says his girlfriend from cancer May 06; at that time he was hospitalized. He was doing better for while but got depressed again and was psychiatrically hospitalized at [facility] early this September. When he was discharged she went back to his female friend's house where he had been living in [place] but when he got there she told him he had a move out with little explanation. He said that is when he relapsed once on the street. Patient said because of the [facility] hospitalization he missed his surgical appointment to have his colostomy reversed. His worry is that if he is discharged back to the street, he will again relapse and again miss this important surgery. Patient says suicidality comes and goes but increases when he thinks of being homeless. -patient complained of some discomfort an anal region which resolved on its own after a shower 10/13 still depressed but slowly improving. Agrees to behavioral activation and push himself to attend groups. Increased mirtazapine to 15 mg which he agrees can be increased further if needed. Increasing methadone to 30 mg which he feels should be sufficient for staying sober. 10/17 increase Remeron to 30 mg; has outpatient appointment with surgical team WednesdayOctober 21 which he wants to attend. 10/18 patient remains depressed but says he stable; no SI and future oriented. He continues to want to discharge Wednesday to go to pre surgery appointment. Agrees to switching Wellbutrin to immediate release given poor absorption in the colon -team working on discharge planning in finding some housing until patient can get surgery. 10/19 patient depressed, but still feels stable, safe and wants to go to appointment on Wednesday, hopeful of getting some type of housing but saying he will take his chances if not. Hoping that immediate release Wellbutrin can make a difference; consider increasing it to t.i.d. 10/20 Patient tells blurb writer he wants to discharge tomorrow to his appointment. However also in the morning, he told a nurse that he plans to overdose after his appointment. Quality Systems Engineer returned later in the day to discuss this with patient who said that he was feeling upset and angry this morning and did say that however those feelings are gone now and he just wants to go to his pre-surgical appointment; he says that if they are not able to admit him for surgery at this appointment, he will just go and get a hotel until surgery is ready, saying he has enough money. Quality Systems Engineer came back again to discuss this further and patient said something to the effect of okay let me be open... There is a fight in my head whether to do something stupid or not... He goes on to say that he is worried that once discharged, he will cave in, use, get very angry at himself and intentionally overdose. He says I know depression will always be there... Sometimes I can control it... Patient says he does not want to , and very much wants surgery but he is currently worried about his ability to remain safe. He agrees that if he were able to get into a medical respite that would make a tremendous difference as he would be in a structured environment. 10/21 same presentation; continue current treatment plan Quality Systems Engineer and social problems specialist communicating with [facility] regarding dispo; rescheduled pre-surgical appointment -blurb writer agrees that patient wants to be safe and wants to get surgery; however given his ostomy, he has not been digesting antidepressant medication, leaving his depression poorly treated; his medication was recently switched to immediate release to help with absorption and hopefully to help with depression. It is blurb writer's opinion that for now, it is in patient's best interest to remain on the unit to help establish a more supportive disposition. Although patient very much does not want to miss his appointment this Wednesday, he is amenable to staying longer and getting the appointment rescheduled for the same reason. 10/24 Patient remains depressed but overall doing better in the sense that suicidality has resolved he is future oriented. He is focused on keeping himself stable and safe so he can go to his pre surgery appointment and then get surgery for reversal of colostomy. He does not think that the Wellbutrin immediate release has made any difference in his mood but patient remains pushing himself to be engaged in his grateful for help received. Discussed disposition options and patient amenable to respite; he will also continue to follow up with [facility]. Patient does have a friend in the community who might have a place that he can stay and is looking into that as well. Quality Systems Engineer discussed case with nurse who knows him from past admissions at other hospital where he got ECT; this is a consideration given that his depression remains untreated due to poor absorption of antidepressants. Plan: CV Q 15 minute checks Continue Bupropion Immediate Release 100 mg T.i.d.; due to ostomy, long-acting not absorbed DC bupropion HCl XL 300 mg daily plus bupropion HCl XL 150 mg daily Increased to methadone 40 mg daily; patient asked for increase due to cravings Continue chlorpromazine 100 mg PO TID Continue clonazepam 2 mg PO BID Continue mirtazapine 30mg PO BEDTIME; may titrate further for continued depression Added clonidine p.r.n. for anxiety melatonin 3 mg PO BEDTIME PRN Continue loperamide 2 mg PO TID Continue Xarelto 20 mg PO DAILY@1800 Continue lansoprazole 30 mg Capsule,Delayed Release(Dr/Ec) daily Continue methenamine mandelate 1 g PO QID Patient educated on: diagnosis, medication risk/benefits, substance abuse and medical condition [facility] surgeon Dr. Myla Shi appointment set for October 21 10:45 regarding ostomy: both ileostomy and colostomy in place. Both are viable appearing. Can change ileostomy appliance every 3-4 days and as needed. Empty appliance Q shift and as needed. Can keep the colostomy covered with dry dressing such as allevyn pads or nonwoven sponge, as it is being proximally diverted. He has a very large parastomal hernia at the ileostomy site which is soft and reducible, no current intervention needed. consulted the loom changeover operatorFalguni to assist with education and appliance changes. Patient educated on: diagnosis, medication risk/benefits, substance abuse and medical condition Informed Consent: understands Reason for continued inpatient stay Substantial Risk for: stable for discharge and med/psych decompensation Time Spent With Patient Time: Total time managing care of this patient today ____ minutes.
[2023-10-25] MEDS: Mineral Oil/Petrolatum,White 106 GM Tube 1 APPL TOPICAL ×2 (10:18→14:34)
[2023-10-25 11:50] VITALS: BP 117/75; PULSE 97; RESP 16; TEMP 36.8; O2SAT 95
--- NOTE | 2023-10-25 12:23 | HO.OSTOMY ---
Ostomy Consult: Follow up Follow up consult for difficult to pouch ostomy on M5 - Behavioral Health Unit. ?He had diverting loop Ileostomy unclear on exact creation but chart review reveals reversal was scheduled but patient missed this scheduled surgery due to prior hospitalization at outside facility. ? Patient agreeable to consultation - met in treatment room patient is more interactive today offering to verbally walk me through the steps to a proper pouch change. He was pleasant and appeared in good spirits overall. The pouch was changed multiple times over the weekend today revealed lifting from the medial side and when removed silent leaking noted at 3 and 9 o'clock. The peristomal skin continues to improve visibly and comfort per pt report. Patient does reports itching witch can signify leaking - he was educated on this and demonstrates understanding. Today I added stoma paste to the 3 and 9 o'clock locations for added seal, continue listed below pouching directions, starting with powder and skin prep. He was changed into a Coloplast 15211, 1 Piece cut to fit (28 oval), Moldable Ring was used, stoma red / pink and moist. ?He had difficulty observing the pouch change due to its location. He will likely need peristomal shaving at next pouch change. The pouch was completed without a belt application as this was thrown away due to soiling. New belt ordered and should arrive tomorrow 10/26/23. The patient was educated to wash the pouch if soiling occurs since when he is discharged he will only receive3 2 a month from his insurance carrier. He continues to be independent with emptying - pt advised to empty more often until the belt is applied since the less weight on the pouch the better it will stay in place. ?He reported having no questions at this time. ?Patient was made aware that myself will return to bedside later in the week for ongoing education. ?All questions and concerns addressed at this time. See below for step by step instruction also left copy of step by step with staff. 10/25/23 - Improved from initial assessment - continued with MASD in the immediate peristomal area. No s/s of fungal dermatitis noted. Ostomy Pouching Recommendations for Biranzaynab [place]ce[place] ? 1)Remove pouch every 3-4 days. Change sooner if you notice any leaking.? Do not reinforce with tape.? Stoma when lying flat ? Stoma when sitting Patient must lay flat for proper pouch application and adherence. 2)Clean skin around stoma with warm water and soft cloth.? Avoid using soaps or lotions.? Discontinue Adhesive remover. *Soaps can contain aloes/lanolins/extracts which leave film on skin that will interfere with pouch adherence. Pat skin dry. 4) For the red and irritated skin dust with Stomahesive powder, dust off all excess powder, then seal with no sting prep, allow to dry. Powder Skin Prep 5) Prepare products; Cut ostomy pouch we use to approximately 28mm Oval- Use Templates left in patient bin, Coloplast [employer] [place] Deep Convexity #[id number]. ??Provider must special order. 6) Fill the area around the stoma with Moldable Barrier Ring at this time. At 3 and 9 o'clock apply a small amount of stoma paste to create a seal. 7) Remove adhesive paper backing from back of pouch wafer apply Gentle Warm pressure to seal the wafer to his skin.? 8) Complete pouch change with application of [place] [employer] C strips to allow for added adherence.? Complete with belt application - pt instructed to wear the belt to for added pressure to correct the way the stoma faces.? Patient educated on the belt being to tight and to monitor his skin.?
[2023-10-25] MEDS: Rivaroxaban 20 MG TABLET PO (17:53)
[2023-10-25 20:00] VITALS: BP 108/62; PULSE 81; TEMP 36.4; O2SAT 93
[2023-10-25] MEDS: Mirtazapine 30 MG TABLET PO (21:32)
[2023-10-26 08:00] VITALS: BP 114/67; PULSE 82; RESP 16; TEMP 37.1; O2SAT 95
[2023-10-26] MEDS: methADONE HCl 20 MG/2 ML ORAL.CONC 40 MG PO (08:57)
[2023-10-26] MEDS: Loperamide HCl 2 MG CAPSULE PO ×3 (08:58→21:48)
[2023-10-26] MEDS: chlorproMAZINE HCl 100 MG TABLET PO ×3 (08:58→21:48)
[2023-10-26] MEDS: Omeprazole 20 MG CAPSULE.DR PO (08:58)
[2023-10-26] MEDS: buPROPion HCL 100 MG TABLET PO ×2 (08:58→14:42)
[2023-10-26] MEDS: Doxycycline Monohydrate 100 MG CAPSULE PO ×2 (08:58→21:48)
[2023-10-26] MEDS: clonazePAM 1 MG TABLET PO ×2 (08:58→21:48)
--- NOTE | 2023-10-26 11:18 | HO.PSYCHPN ---
Subjective Subjective Date of Service: 10/26/23 Reason For Visit: opiate overdose with suicidal intent Interim History: Met with patient; discussed with team Reviewed history of ECT. Patient said that in the past he did have a treatments which helped him for 2 months however numerous psychosocial stressors coalesced to produce a return of depression. Patient said that he does not want ECT now since he had a very bad experience with it 1 time, where he was given the muscle relaxant however remained conscious. Discussed approach to this however patient did not want. Said he would benefited from ketamine getting injections 2 times a week for about 3 weeks. Patient remains depressed and agrees to increased Wellbutrin. Mental Status Exam Mental Status Exam Narrative: Pt is alert and oriented; behavior is cooperative, calm; patient is not in distress; dressed casually, overall adequately groomed;; mood is described as ok and affect congruent, downcast; eye contact appropriate; Speech is normal volume, rate; psychomotor retardation present; thought process is organized and goal directed; Thought content is on medical treatment, psychosocial stressors; otherwise pertinent to relevant topics and without any delusional content, paranoid ideations or grandiosity; no SI; no HI. Denies AVH. There is no evidence of perceptual disturbance. Patients insight and judgment fair. Diagnostics Vital Signs (24Hr): Vital Signs - 24 hr 10/25/23 11:50 10/25/23 20:00 10/26/23 08:00 Temperature 98.2 F 97.5 F 98.7 F Pulse Rate 97 81 82 Respiratory Rate 16 16 Blood Pressure 117/75 108/62 114/67 Pulse Oximetry 95 93 95 Oxygen Delivery Method Room Air Room Air Room Air BMI result Body Mass Index 27.2 Medications Medications Current Medications Acetaminophen (Acetaminophen 325 Mg Tablet) 650 mg PO Q6H PRN PRN Reason: Headache/Pain Mild Scale (1-3) Last Admin: 10/18/23 16:05 Dose: 650 mg Al Hydroxide/Mg Hydroxide (Magnesium Hydrox/Alum Hydrox 30 Ml Oral.Susp) 30 ml PO Q6H PRN PRN Reason: Heartburn/Nausea Last Admin: 10/24/23 09:54 Dose: 30 ml Benzonatate (Benzonatate 100 Mg Capsule) 100 mg PO TID PRN PRN Reason: Cough Bupropion HCl (Bupropion Hcl 100 Mg Tablet) 100 mg PO TID [facility] Last Admin: 10/26/23 08:58 Dose: 100 mg Chlorpromazine HCl (Chlorpromazine Hcl 100 Mg Tablet) 100 mg PO TID [facility] Last Admin: 10/26/23 08:58 Dose: 100 mg Clonazepam (Clonazepam 1 Mg Tablet) 1 mg PO BID [facility] Last Admin: 10/26/23 08:58 Dose: 1 mg Clonidine HCl (Clonidine Hcl 0.1 Mg Tablet) 0.1 mg PO Q4H PRN; Protocol PRN Reason: moderate anxiety Last Admin: 10/15/23 12:32 Dose: 0.1 mg Docusate Sodium (Docusate Sodium 100 Mg Capsule) 100 mg PO DAILY PRN PRN Reason: Constipation Doxycycline Monohydrate (Doxycycline Monohydrate 100 Mg Capsule) 100 mg PO BID [facility] Last Admin: 10/26/23 08:58 Dose: 100 mg Hydroxyzine HCl (Hydroxyzine Hcl 25 Mg Tablet) 25 mg PO BID PRN PRN Reason: itch Last Admin: 10/17/23 20:52 Dose: 25 mg Loperamide HCl (Loperamide Hcl 2 Mg Capsule) 2 mg PO TID [facility] Last Admin: 10/26/23 08:58 Dose: 2 mg Magnesium Hydroxide (Milk Of Magnesia 30 Ml Oral.Susp) 30 ml PO DAILY PRN PRN Reason: Constipation Melatonin (Melatonin 3 Mg Tablet) 6 mg PO BEDTIME PRN PRN Reason: Insomnia Methadone HCl (Methadone Hcl 20 Mg/2 Ml Oral.Conc) 40 mg PO DAILY [facility] Last Admin: 10/26/23 08:57 Dose: 40 mg Mirtazapine (Mirtazapine 30 Mg Tablet) 30 mg PO BEDTIME [facility] Last Admin: 10/25/23 21:32 Dose: 30 mg Multi-Ingred Cream/Lotion/Oil/Oint (Mineral Oil/Petrolatum,White 106 Gm Tube) 1 appl TOPICAL TID [facility]; Protocol Last Admin: 10/26/23 09:00 Dose: Not Given Nicotine (Nicotine 21 Mg Patch.Td24) 21 mg TRANSDERMA DAILY PRN PRN Reason: nicotine craving Nicotine Polacrilex (Nicotine Polacrilex 2 Mg Gum) 4 mg BUCCAL Q2H PRN PRN Reason: Nicotine Cravings Omeprazole (Omeprazole 20 Mg Capsule.Dr) 20 mg PO DAILY@0630 [facility] Last Admin: 10/26/23 08:58 Dose: 20 mg Rivaroxaban (Rivaroxaban 20 Mg Tablet) 20 mg PO DAILY@1800 [facility] Last Admin: 10/25/23 17:53 Dose: 20 mg Trazodone HCl (Trazodone Hcl 50 Mg Tablet) 50 mg PO BEDTIME MRX1 PRN PRN Reason: Insomnia Last Admin: 10/23/23 22:06 Dose: 50 mg Allergies Allergies Allergy/AdvReac Type Severity Reaction Status Date / Time haloperidol [From Haldol] AdvReac see note Verified 10/09/23 10:18 Assessment & Plan Assessment & Plan (1) MDD (major depressive disorder), recurrent, severe, with psychosis: Status: Acute Code(s): F33.3 - Major depressive disorder, recurrent, severe with psychotic symptoms (2) Post traumatic stress disorder (PTSD): Status: Acute Code(s): F43.10 - Post-traumatic stress disorder, unspecified (3) Opioid use disorder: Status: Acute Code(s): F11.90 - Opioid use, unspecified, uncomplicated (4) Cocaine use disorder: Status: Acute Code(s): F14.10 - Cocaine abuse, uncomplicated (5) Crohn's disease: Status: Acute Code(s): K50.90 - Crohn's disease, unspecified, without complications (6) Colostomy in place: Status: Acute Code(s): Z93.3 - Colostomy status (7) Ileostomy in place: Status: Acute Code(s): Z93.2 - Ileostomy status Plan Patient is a 48-year-old male with history of depression, opioid/cocaine abuse, Crohn's disease large bowel obstruction due to sigmoid stricture s/p colostomy, multiple psychiatric hospitalizations who presented to the ED for intentional drug overdose. Patient was found unresponsive on the back porch of a stranger's house after having injected cocaine/heroin into his neck. Patient was given Narcan and brought to the hospital. Patient reports that he intentionally overdosed in a suicide attempt following relational strife with his and being kicked out of the house. He was medically admitted and treated for rhabdomyolysis. Patient medically cleared and presents to for psychiatric admission. Patient reports that up until about 5 days ago he was doing well, good mood, taking his medications regularly and remain sober. Patient got into an argument with his , the details of which he did not disclose, and got kicked out of the house. Patient said that this triggered strong emotional response and he relapsed for the past 5 days; with continued depression and falling into despair patient got suicidal and intentionally overdosed on heroin cocaine. Patient remains depressed with intermittent suicidality present; he asks to get on methadone which he was on years ago, saying he needs this initially to help him stay sober and will get off it later on. He is amenable to medication adjustments, increasing antidepressants. Formulation/clinical reasoning: Will continue home medication; patient asking to be started on methadone which he has been on in the past to help him remain sober Continues to have SI though seems mostly related to being discharged to homelessness Will hold off increasing antidepressants for now since patient was on these doses for quite awhile, doing well hospital course: 10/12 Patient more open today. Shares more history. Says his girlfriend from cancer May 06; at that time he was hospitalized. He was doing better for while but got depressed again and was psychiatrically hospitalized at [facility] early this September. When he was discharged she went back to his female friend's house where he had been living in [place] but when he got there she told him he had a move out with little explanation. He said that is when he relapsed once on the street. Patient said because of the [facility] hospitalization he missed his surgical appointment to have his colostomy reversed. His worry is that if he is discharged back to the street, he will again relapse and again miss this important surgery. Patient says suicidality comes and goes but increases when he thinks of being homeless. -patient complained of some discomfort an anal region which resolved on its own after a shower 10/13 still depressed but slowly improving. Agrees to behavioral activation and push himself to attend groups. Increased mirtazapine to 15 mg which he agrees can be increased further if needed. Increasing methadone to 30 mg which he feels should be sufficient for staying sober. 10/17 increase Remeron to 30 mg; has outpatient appointment with surgical team WednesdayOctober 21 which he wants to attend. 10/18 patient remains depressed but says he stable; no SI and future oriented. He continues to want to discharge Wednesday to go to pre surgery appointment. Agrees to switching Wellbutrin to immediate release given poor absorption in the colon -team working on discharge planning in finding some housing until patient can get surgery. 10/19 patient depressed, but still feels stable, safe and wants to go to appointment on Wednesday, hopeful of getting some type of housing but saying he will take his chances if not. Hoping that immediate release Wellbutrin can make a difference; consider increasing it to t.i.d. 10/20 Patient tells ad copy writer he wants to discharge tomorrow to his appointment. However also in the morning, he told a nurse that he plans to overdose after his appointment. Ent Nurse returned later in the day to discuss this with patient who said that he was feeling upset and angry this morning and did say that however those feelings are gone now and he just wants to go to his pre-surgical appointment; he says that if they are not able to admit him for surgery at this appointment, he will just go and get a hotel until surgery is ready, saying he has enough money. Ent Nurse came back again to discuss this further and patient said something to the effect of okay let me be open... There is a fight in my head whether to do something stupid or not... He goes on to say that he is worried that once discharged, he will cave in, use, get very angry at himself and intentionally overdose. He says I know depression will always be there... Sometimes I can control it... Patient says he does not want to , and very much wants surgery but he is currently worried about his ability to remain safe. He agrees that if he were able to get into a medical respite that would make a tremendous difference as he would be in a structured environment. 10/21 same presentation; continue current treatment plan Ent Nurse and social sciences chair communicating with [facility] regarding dispo; rescheduled pre-surgical appointment -ad copy writer agrees that patient wants to be safe and wants to get surgery; however given his ostomy, he has not been digesting antidepressant medication, leaving his depression poorly treated; his medication was recently switched to immediate release to help with absorption and hopefully to help with depression. It is ad copy writer's opinion that for now, it is in patient's best interest to remain on the unit to help establish a more supportive disposition. Although patient very much does not want to miss his appointment this Wednesday, he is amenable to staying longer and getting the appointment rescheduled for the same reason. 10/24 Patient remains depressed but overall doing better in the sense that suicidality has resolved he is future oriented. He is focused on keeping himself stable and safe so he can go to his pre surgery appointment and then get surgery for reversal of colostomy. He does not think that the Wellbutrin immediate release has made any difference in his mood but patient remains pushing himself to be engaged in his grateful for help received. Discussed disposition options and patient amenable to respite; he will also continue to follow up with [facility]. Patient does have a friend in the community who might have a place that he can stay and is looking into that as well. Ent Nurse discussed case with nurse who knows him from past admissions at other hospital where he got ECT; this is a consideration given that his depression remains untreated due to poor absorption of antidepressants. 10/25 remains depressed but no SI; discussed history of ECT and although it was helpful, patient had bad experience with 1 of the trials and does not want ECT. Agrees to increase in Wellbutrin Plan: CV Q 15 minute checks increase to Bupropion Immediate Release 150 mg T.i.d.; due to ostomy, long-acting not absorbed DC bupropion HCl XL 300 mg daily plus bupropion HCl XL 150 mg daily Increased to methadone 40 mg daily; patient asked for increase due to cravings Continue chlorpromazine 100 mg PO TID Continue clonazepam 2 mg PO BID Continue mirtazapine 30mg PO BEDTIME; may titrate further for continued depression Added clonidine p.r.n. for anxiety melatonin 3 mg PO BEDTIME PRN Continue loperamide 2 mg PO TID Continue Xarelto 20 mg PO DAILY@1800 Continue lansoprazole 30 mg Capsule,Delayed Release(Dr/Ec) daily Continue methenamine mandelate 1 g PO QID Patient educated on: diagnosis, medication risk/benefits, substance abuse and medical condition [facility] surgeon Dr. Myla Shi appointment set for October 21 10:45 regarding ostomy: both ileostomy and colostomy in place. Both are viable appearing. Can change ileostomy appliance every 3-4 days and as needed. Empty appliance Q shift and as needed. Can keep the colostomy covered with dry dressing such as allevyn pads or nonwoven sponge, as it is being proximally diverted. He has a very large parastomal hernia at the ileostomy site which is soft and reducible, no current intervention needed. consulted the desk operatorFalguni to assist with education and appliance changes. Patient educated on: diagnosis, medication risk/benefits, ECT and therapeutic strategies Informed Consent: understands Reason for continued inpatient stay Substantial Risk for: stable for discharge Time Spent With Patient Time: Total time managing care of this patient today ____ minutes.
[2023-10-26] MEDS: Rivaroxaban 20 MG TABLET PO (18:43)
[2023-10-26] MEDS: buPROPion HCL 75 MG TABLET 150 MG PO (18:43)
[2023-10-26] MEDS: Mirtazapine 30 MG TABLET PO (21:48)
[2023-10-26] MEDS: Mineral Oil/Petrolatum,White 106 GM Tube 1 APPL TOPICAL (21:50)
[2023-10-27 08:00] VITALS: BP 112/67; PULSE 85; RESP 18; TEMP 36.5; O2SAT 95
[2023-10-27] MEDS: Omeprazole 20 MG CAPSULE.DR PO (09:44)
[2023-10-27] MEDS: Loperamide HCl 2 MG CAPSULE PO ×3 (09:44→22:09)
[2023-10-27] MEDS: clonazePAM 1 MG TABLET PO ×2 (09:44→22:20)
[2023-10-27] MEDS: Doxycycline Monohydrate 100 MG CAPSULE PO (09:44)
[2023-10-27] MEDS: methADONE HCl 20 MG/2 ML ORAL.CONC 40 MG PO (09:44)
[2023-10-27] MEDS: buPROPion HCL 75 MG TABLET 150 MG PO ×3 (09:44→18:16)
[2023-10-27] MEDS: chlorproMAZINE HCl 100 MG TABLET PO ×3 (09:44→22:08)
--- NOTE | 2023-10-27 10:22 | HO.PSYCHPN ---
Subjective Subjective Date of Service: 10/27/23 Reason For Visit: opiate overdose with suicidal intent Interim History: Met with patient; discussed with team For the 1st time this admission patient said he did feel a little less depressed. He says he continues to be depressed however it has not like that depression he has been having thus far. Geothermal Production Manager discussed that this may be perhaps because immediate release Wellbutrin was increased they. Patient agrees to continue taking. Met with patient's [facility] team and discussed options for housing post discharge. Mental Status Exam Mental Status Exam Narrative: Pt is alert and oriented; behavior is cooperative, calm; patient is not in distress; dressed casually, overall adequately groomed;; mood is described as a little better and affect congruent, a little brighter; eye contact appropriate; Speech is normal volume, rate; psychomotor retardation present; thought process is organized and goal directed; Thought content is on medical treatment, psychosocial stressors; otherwise pertinent to relevant topics and without any delusional content, paranoid ideations or grandiosity; no SI; no HI. Denies AVH. There is no evidence of perceptual disturbance. Patients insight and judgment fair. Diagnostics Vital Signs (24Hr): BMI result Body Mass Index 27.2 Medications Medications Current Medications Acetaminophen (Acetaminophen 325 Mg Tablet) 650 mg PO Q6H PRN PRN Reason: Headache/Pain Mild Scale (1-3) Last Admin: 10/18/23 16:05 Dose: 650 mg Al Hydroxide/Mg Hydroxide (Magnesium Hydrox/Alum Hydrox 30 Ml Oral.Susp) 30 ml PO Q6H PRN PRN Reason: Heartburn/Nausea Last Admin: 10/24/23 09:54 Dose: 30 ml Benzonatate (Benzonatate 100 Mg Capsule) 100 mg PO TID PRN PRN Reason: Cough Bupropion HCl (Bupropion Hcl 75 Mg Tablet) 150 mg PO TID@0900,1300,1700 [facility] Last Admin: 10/27/23 09:44 Dose: 150 mg Chlorpromazine HCl (Chlorpromazine Hcl 100 Mg Tablet) 100 mg PO TID [facility] Last Admin: 10/27/23 09:44 Dose: 100 mg Clonazepam (Clonazepam 1 Mg Tablet) 1 mg PO BID [facility] Last Admin: 10/27/23 09:44 Dose: 1 mg Clonidine HCl (Clonidine Hcl 0.1 Mg Tablet) 0.1 mg PO Q4H PRN; Protocol PRN Reason: moderate anxiety Last Admin: 10/15/23 12:32 Dose: 0.1 mg Docusate Sodium (Docusate Sodium 100 Mg Capsule) 100 mg PO DAILY PRN PRN Reason: Constipation Doxycycline Monohydrate (Doxycycline Monohydrate 100 Mg Capsule) 100 mg PO BID [facility] Last Admin: 10/27/23 09:44 Dose: 100 mg Hydroxyzine HCl (Hydroxyzine Hcl 25 Mg Tablet) 25 mg PO BID PRN PRN Reason: itch Last Admin: 10/17/23 20:52 Dose: 25 mg Loperamide HCl (Loperamide Hcl 2 Mg Capsule) 2 mg PO TID [facility] Last Admin: 10/27/23 09:44 Dose: 2 mg Magnesium Hydroxide (Milk Of Magnesia 30 Ml Oral.Susp) 30 ml PO DAILY PRN PRN Reason: Constipation Melatonin (Melatonin 3 Mg Tablet) 6 mg PO BEDTIME PRN PRN Reason: Insomnia Methadone HCl (Methadone Hcl 20 Mg/2 Ml Oral.Conc) 40 mg PO DAILY [facility] Last Admin: 10/27/23 09:44 Dose: 40 mg Mirtazapine (Mirtazapine 30 Mg Tablet) 30 mg PO BEDTIME [facility] Last Admin: 10/26/23 21:48 Dose: 30 mg Multi-Ingred Cream/Lotion/Oil/Oint (Mineral Oil/Petrolatum,White 106 Gm Tube) 1 appl TOPICAL TID [facility]; Protocol Last Admin: 10/26/23 21:50 Dose: 1 appl Nicotine (Nicotine 21 Mg Patch.Td24) 21 mg TRANSDERMA DAILY PRN PRN Reason: nicotine craving Nicotine Polacrilex (Nicotine Polacrilex 2 Mg Gum) 4 mg BUCCAL Q2H PRN PRN Reason: Nicotine Cravings Omeprazole (Omeprazole 20 Mg Capsule.Dr) 20 mg PO DAILY@0630 [facility] Last Admin: 10/27/23 09:44 Dose: 20 mg Rivaroxaban (Rivaroxaban 20 Mg Tablet) 20 mg PO DAILY@1800 [facility] Last Admin: 10/26/23 18:43 Dose: 20 mg Trazodone HCl (Trazodone Hcl 50 Mg Tablet) 50 mg PO BEDTIME MRX1 PRN PRN Reason: Insomnia Last Admin: 10/23/23 22:06 Dose: 50 mg Allergies Allergies Allergy/AdvReac Type Severity Reaction Status Date / Time haloperidol [From Haldol] AdvReac see note Verified 10/09/23 10:18 Assessment & Plan Assessment & Plan (1) MDD (major depressive disorder), recurrent, severe, with psychosis: Status: Acute Code(s): F33.3 - Major depressive disorder, recurrent, severe with psychotic symptoms (2) Post traumatic stress disorder (PTSD): Status: Acute Code(s): F43.10 - Post-traumatic stress disorder, unspecified (3) Opioid use disorder: Status: Acute Code(s): F11.90 - Opioid use, unspecified, uncomplicated (4) Cocaine use disorder: Status: Acute Code(s): F14.10 - Cocaine abuse, uncomplicated (5) Crohn's disease: Status: Acute Code(s): K50.90 - Crohn's disease, unspecified, without complications (6) Colostomy in place: Status: Acute Code(s): Z93.3 - Colostomy status (7) Ileostomy in place: Status: Acute Code(s): Z93.2 - Ileostomy status Plan Patient is a 48-year-old male with history of depression, opioid/cocaine abuse, Crohn's disease large bowel obstruction due to sigmoid stricture s/p colostomy, multiple psychiatric hospitalizations who presented to the ED for intentional drug overdose. Patient was found unresponsive on the back porch of a stranger's house after having injected cocaine/heroin into his neck. Patient was given Narcan and brought to the hospital. Patient reports that he intentionally overdosed in a suicide attempt following relational strife with his and being kicked out of the house. He was medically admitted and treated for rhabdomyolysis. Patient medically cleared and presents to for psychiatric admission. Patient reports that up until about 5 days ago he was doing well, good mood, taking his medications regularly and remain sober. Patient got into an argument with his , the details of which he did not disclose, and got kicked out of the house. Patient said that this triggered strong emotional response and he relapsed for the past 5 days; with continued depression and falling into despair patient got suicidal and intentionally overdosed on heroin cocaine. Patient remains depressed with intermittent suicidality present; he asks to get on methadone which he was on years ago, saying he needs this initially to help him stay sober and will get off it later on. He is amenable to medication adjustments, increasing antidepressants. Formulation/clinical reasoning: Will continue home medication; patient asking to be started on methadone which he has been on in the past to help him remain sober Continues to have SI though seems mostly related to being discharged to homelessness Will hold off increasing antidepressants for now since patient was on these doses for quite awhile, doing well hospital course: 10/12 Patient more open today. Shares more history. Says his girlfriend from cancer May 06; at that time he was hospitalized. He was doing better for while but got depressed again and was psychiatrically hospitalized at [facility] early this September. When he was discharged she went back to his female friend's house where he had been living in [place] but when he got there she told him he had a move out with little explanation. He said that is when he relapsed once on the street. Patient said because of the [facility] hospitalization he missed his surgical appointment to have his colostomy reversed. His worry is that if he is discharged back to the street, he will again relapse and again miss this important surgery. Patient says suicidality comes and goes but increases when he thinks of being homeless. -patient complained of some discomfort an anal region which resolved on its own after a shower 10/13 still depressed but slowly improving. Agrees to behavioral activation and push himself to attend groups. Increased mirtazapine to 15 mg which he agrees can be increased further if needed. Increasing methadone to 30 mg which he feels should be sufficient for staying sober. 10/17 increase Remeron to 30 mg; has outpatient appointment with surgical team WednesdayOctober 21 which he wants to attend. 10/18 patient remains depressed but says he stable; no SI and future oriented. He continues to want to discharge Wednesday to go to pre surgery appointment. Agrees to switching Wellbutrin to immediate release given poor absorption in the colon -team working on discharge planning in finding some housing until patient can get surgery. 10/19 patient depressed, but still feels stable, safe and wants to go to appointment on Wednesday, hopeful of getting some type of housing but saying he will take his chances if not. Hoping that immediate release Wellbutrin can make a difference; consider increasing it to t.i.d. 10/20 Patient tells specification writer he wants to discharge tomorrow to his appointment. However also in the morning, he told a nurse that he plans to overdose after his appointment. Geothermal Production Manager returned later in the day to discuss this with patient who said that he was feeling upset and angry this morning and did say that however those feelings are gone now and he just wants to go to his pre-surgical appointment; he says that if they are not able to admit him for surgery at this appointment, he will just go and get a hotel until surgery is ready, saying he has enough money. Geothermal Production Manager came back again to discuss this further and patient said something to the effect of okay let me be open... There is a fight in my head whether to do something stupid or not... He goes on to say that he is worried that once discharged, he will cave in, use, get very angry at himself and intentionally overdose. He says I know depression will always be there... Sometimes I can control it... Patient says he does not want to , and very much wants surgery but he is currently worried about his ability to remain safe. He agrees that if he were able to get into a medical respite that would make a tremendous difference as he would be in a structured environment. 10/21 same presentation; continue current treatment plan Geothermal Production Manager and clinical social work therapist communicating with [facility] regarding dispo; rescheduled pre-surgical appointment -specification writer agrees that patient wants to be safe and wants to get surgery; however given his ostomy, he has not been digesting antidepressant medication, leaving his depression poorly treated; his medication was recently switched to immediate release to help with absorption and hopefully to help with depression. It is specification writer's opinion that for now, it is in patient's best interest to remain on the unit to help establish a more supportive disposition. Although patient very much does not want to miss his appointment this Wednesday, he is amenable to staying longer and getting the appointment rescheduled for the same reason. 10/24 Patient remains depressed but overall doing better in the sense that suicidality has resolved he is future oriented. He is focused on keeping himself stable and safe so he can go to his pre surgery appointment and then get surgery for reversal of colostomy. He does not think that the Wellbutrin immediate release has made any difference in his mood but patient remains pushing himself to be engaged in his grateful for help received. Discussed disposition options and patient amenable to respite; he will also continue to follow up with [facility]. Patient does have a friend in the community who might have a place that he can stay and is looking into that as well. Geothermal Production Manager discussed case with nurse who knows him from past admissions at other hospital where he got ECT; this is a consideration given that his depression remains untreated due to poor absorption of antidepressants. 10/25 remains depressed but no SI; discussed history of ECT and although it was helpful, patient had bad experience with 1 of the trials and does not want ECT. Agrees to increase in Wellbutrin 10/26 hopefully increased Wellbutrin to 150 mg t.i.d. may be having some effect Plan: CV Q 15 minute checks increase to Bupropion Immediate Release 150 mg T.i.d.; due to ostomy, long-acting not absorbed DC bupropion HCl XL 300 mg daily plus bupropion HCl XL 150 mg daily Increased to methadone 40 mg daily; patient asked for increase due to cravings Continue chlorpromazine 100 mg PO TID Continue clonazepam 2 mg PO BID Continue mirtazapine 30mg PO BEDTIME; may titrate further for continued depression Added clonidine p.r.n. for anxiety melatonin 3 mg PO BEDTIME PRN Continue loperamide 2 mg PO TID Continue Xarelto 20 mg PO DAILY@1800 Continue lansoprazole 30 mg Capsule,Delayed Release(Dr/Ec) daily Continue methenamine mandelate 1 g PO QID Patient educated on: diagnosis, medication risk/benefits, substance abuse and medical condition [facility] surgeon Dr. Myla Shi appointment set for October 21 10:45 regarding ostomy: both ileostomy and colostomy in place. Both are viable appearing. Can change ileostomy appliance every 3-4 days and as needed. Empty appliance Q shift and as needed. Can keep the colostomy covered with dry dressing such as allevyn pads or nonwoven sponge, as it is being proximally diverted. He has a very large parastomal hernia at the ileostomy site which is soft and reducible, no current intervention needed. consulted the channel [email or web address] to assist with education and appliance changes. Patient educated on: diagnosis, medication risk/benefits and therapeutic strategies Informed Consent: understands Reason for continued inpatient stay Substantial Risk for: rapid decompensation Time Spent With Patient Time: Total time managing care of this patient today ____ minutes.
[2023-10-27] MEDS: Rivaroxaban 20 MG TABLET PO (18:16)
[2023-10-27 20:00] VITALS: BP 106/60; PULSE 112; RESP 18; TEMP 36.9; O2SAT 93
[2023-10-27] MEDS: Mirtazapine 30 MG TABLET PO (22:09)
[2023-10-28 07:00] VITALS: BMI 26.9
[2023-10-28 08:11] VITALS: BP 126/75; PULSE 82; RESP 18; TEMP 36.7; O2SAT 95
[2023-10-28] MEDS: clonazePAM 1 MG TABLET PO ×2 (09:23→21:51)
[2023-10-28] MEDS: methADONE HCl 20 MG/2 ML ORAL.CONC 40 MG PO (09:23)
[2023-10-28] MEDS: chlorproMAZINE HCl 100 MG TABLET PO ×3 (09:23→21:51)
[2023-10-28] MEDS: Loperamide HCl 2 MG CAPSULE PO ×3 (09:23→21:51)
[2023-10-28] MEDS: Omeprazole 20 MG CAPSULE.DR PO (09:23)
--- NOTE | 2023-10-28 10:33 | HO.PSYCHPN ---
Subjective Subjective Date of Service: 10/28/23 Reason For Visit: opiate overdose with suicidal intent Interim History: Met with patient; discussed with team; reviewed chart pt reports he's the same; still depressed but not as much as when he came in and with a less intense quality. he remains focused on after care options.. Mental Status Exam Mental Status Exam Narrative: Pt is alert and oriented; behavior is cooperative, calm; patient is not in distress; dressed casually, overall adequately groomed; mood is described as same...a little better and affect congruent, a little brighter; eye contact appropriate; Speech is normal volume, rate; psychomotor retardation present; thought process is organized and goal directed; Thought content is on medical treatment, psychosocial stressors; otherwise pertinent to relevant topics and without any delusional content, paranoid ideations or grandiosity; no SI; no HI. Denies AVH. There is no evidence of perceptual disturbance. Patients insight and judgment fair. Diagnostics Vital Signs (24Hr): Vital Signs - 24 hr 10/27/23 20:00 10/28/23 08:11 Temperature 98.4 F 98.1 F Pulse Rate 112 H 82 Respiratory Rate 18 18 Blood Pressure 106/60 126/75 Pulse Oximetry 93 95 Oxygen Delivery Method Room Air Room Air BMI result Body Mass Index 27.2 Medications Medications Current Medications Acetaminophen (Acetaminophen 325 Mg Tablet) 650 mg PO Q6H PRN PRN Reason: Headache/Pain Mild Scale (1-3) Last Admin: 10/18/23 16:05 Dose: 650 mg Al Hydroxide/Mg Hydroxide (Magnesium Hydrox/Alum Hydrox 30 Ml Oral.Susp) 30 ml PO Q6H PRN PRN Reason: Heartburn/Nausea Last Admin: 10/24/23 09:54 Dose: 30 ml Benzonatate (Benzonatate 100 Mg Capsule) 100 mg PO TID PRN PRN Reason: Cough Bupropion HCl (Bupropion Hcl 75 Mg Tablet) 150 mg PO TID@0900,1300,1700 [facility] Last Admin: 10/27/23 18:16 Dose: 150 mg Chlorpromazine HCl (Chlorpromazine Hcl 100 Mg Tablet) 100 mg PO TID [facility] Last Admin: 10/28/23 09:23 Dose: 100 mg Clonazepam (Clonazepam 1 Mg Tablet) 1 mg PO BID [facility] Last Admin: 10/28/23 09:23 Dose: 1 mg Clonidine HCl (Clonidine Hcl 0.1 Mg Tablet) 0.1 mg PO Q4H PRN; Protocol PRN Reason: moderate anxiety Last Admin: 10/15/23 12:32 Dose: 0.1 mg Docusate Sodium (Docusate Sodium 100 Mg Capsule) 100 mg PO DAILY PRN PRN Reason: Constipation Hydroxyzine HCl (Hydroxyzine Hcl 25 Mg Tablet) 25 mg PO BID PRN PRN Reason: itch Last Admin: 10/17/23 20:52 Dose: 25 mg Loperamide HCl (Loperamide Hcl 2 Mg Capsule) 2 mg PO TID [facility] Last Admin: 10/28/23 09:23 Dose: 2 mg Magnesium Hydroxide (Milk Of Magnesia 30 Ml Oral.Susp) 30 ml PO DAILY PRN PRN Reason: Constipation Melatonin (Melatonin 3 Mg Tablet) 6 mg PO BEDTIME PRN PRN Reason: Insomnia Methadone HCl (Methadone Hcl 20 Mg/2 Ml Oral.Conc) 40 mg PO DAILY [facility] Last Admin: 10/28/23 09:23 Dose: 40 mg Mirtazapine (Mirtazapine 30 Mg Tablet) 30 mg PO BEDTIME [facility] Last Admin: 10/27/23 22:09 Dose: 30 mg Multi-Ingred Cream/Lotion/Oil/Oint (Mineral Oil/Petrolatum,White 106 Gm Tube) 1 appl TOPICAL TID [facility]; Protocol Last Admin: 10/28/23 09:23 Dose: Not Given Nicotine (Nicotine 21 Mg Patch.Td24) 21 mg TRANSDERMA DAILY PRN PRN Reason: nicotine craving Nicotine Polacrilex (Nicotine Polacrilex 2 Mg Gum) 4 mg BUCCAL Q2H PRN PRN Reason: Nicotine Cravings Omeprazole (Omeprazole 20 Mg Capsule.Dr) 20 mg PO DAILY@0630 [facility] Last Admin: 10/28/23 09:23 Dose: 20 mg Rivaroxaban (Rivaroxaban 20 Mg Tablet) 20 mg PO DAILY@1800 [facility] Last Admin: 10/27/23 18:16 Dose: 20 mg Trazodone HCl (Trazodone Hcl 50 Mg Tablet) 50 mg PO BEDTIME MRX1 PRN PRN Reason: Insomnia Last Admin: 10/23/23 22:06 Dose: 50 mg Allergies Allergies Allergy/AdvReac Type Severity Reaction Status Date / Time haloperidol [From Haldol] AdvReac see note Verified 10/09/23 10:18 Assessment & Plan Assessment & Plan (1) MDD (major depressive disorder), recurrent, severe, with psychosis: Status: Acute Code(s): F33.3 - Major depressive disorder, recurrent, severe with psychotic symptoms (2) Post traumatic stress disorder (PTSD): Status: Acute Code(s): F43.10 - Post-traumatic stress disorder, unspecified (3) Opioid use disorder: Status: Acute Code(s): F11.90 - Opioid use, unspecified, uncomplicated (4) Cocaine use disorder: Status: Acute Code(s): F14.10 - Cocaine abuse, uncomplicated (5) Crohn's disease: Status: Acute Code(s): K50.90 - Crohn's disease, unspecified, without complications (6) Colostomy in place: Status: Acute Code(s): Z93.3 - Colostomy status (7) Ileostomy in place: Status: Acute Code(s): Z93.2 - Ileostomy status Plan Patient is a 48-year-old male with history of depression, opioid/cocaine abuse, Crohn's disease large bowel obstruction due to sigmoid stricture s/p colostomy, multiple psychiatric hospitalizations who presented to the ED for intentional drug overdose. Patient was found unresponsive on the back porch of a stranger's house after having injected cocaine/heroin into his neck. Patient was given Narcan and brought to the hospital. Patient reports that he intentionally overdosed in a suicide attempt following relational strife with his and being kicked out of the house. He was medically admitted and treated for rhabdomyolysis. Patient medically cleared and presents to for psychiatric admission. Patient reports that up until about 5 days ago he was doing well, good mood, taking his medications regularly and remain sober. Patient got into an argument with his , the details of which he did not disclose, and got kicked out of the house. Patient said that this triggered strong emotional response and he relapsed for the past 5 days; with continued depression and falling into despair patient got suicidal and intentionally overdosed on heroin cocaine. Patient remains depressed with intermittent suicidality present; he asks to get on methadone which he was on years ago, saying he needs this initially to help him stay sober and will get off it later on. He is amenable to medication adjustments, increasing antidepressants. Formulation/clinical reasoning: Will continue home medication; patient asking to be started on methadone which he has been on in the past to help him remain sober Continues to have SI though seems mostly related to being discharged to homelessness Will hold off increasing antidepressants for now since patient was on these doses for quite awhile, doing well hospital course: 10/12 Patient more open today. Shares more history. Says his girlfriend from cancer May 06; at that time he was hospitalized. He was doing better for while but got depressed again and was psychiatrically hospitalized at [facility] early this September. When he was discharged she went back to his female friend's house where he had been living in [place] but when he got there she told him he had a move out with little explanation. He said that is when he relapsed once on the street. Patient said because of the [facility] hospitalization he missed his surgical appointment to have his colostomy reversed. His worry is that if he is discharged back to the street, he will again relapse and again miss this important surgery. Patient says suicidality comes and goes but increases when he thinks of being homeless. -patient complained of some discomfort an anal region which resolved on its own after a shower 10/13 still depressed but slowly improving. Agrees to behavioral activation and push himself to attend groups. Increased mirtazapine to 15 mg which he agrees can be increased further if needed. Increasing methadone to 30 mg which he feels should be sufficient for staying sober. 10/17 increase Remeron to 30 mg; has outpatient appointment with surgical team WednesdayOctober 21 which he wants to attend. 10/18 patient remains depressed but says he stable; no SI and future oriented. He continues to want to discharge Wednesday to go to pre surgery appointment. Agrees to switching Wellbutrin to immediate release given poor absorption in the colon -team working on discharge planning in finding some housing until patient can get surgery. 10/19 patient depressed, but still feels stable, safe and wants to go to appointment on Wednesday, hopeful of getting some type of housing but saying he will take his chances if not. Hoping that immediate release Wellbutrin can make a difference; consider increasing it to t.i.d. 10/20 Patient tells headline writer he wants to discharge tomorrow to his appointment. However also in the morning, he told a nurse that he plans to overdose after his appointment. Technical Services Specialist returned later in the day to discuss this with patient who said that he was feeling upset and angry this morning and did say that however those feelings are gone now and he just wants to go to his pre-surgical appointment; he says that if they are not able to admit him for surgery at this appointment, he will just go and get a hotel until surgery is ready, saying he has enough money. Technical Services Specialist came back again to discuss this further and patient said something to the effect of okay let me be open... There is a fight in my head whether to do something stupid or not... He goes on to say that he is worried that once discharged, he will cave in, use, get very angry at himself and intentionally overdose. He says I know depression will always be there... Sometimes I can control it... Patient says he does not want to , and very much wants surgery but he is currently worried about his ability to remain safe. He agrees that if he were able to get into a medical respite that would make a tremendous difference as he would be in a structured environment. 10/21 same presentation; continue current treatment plan Technical Services Specialist and social service assistant communicating with [facility] regarding dispo; rescheduled pre-surgical appointment -headline writer agrees that patient wants to be safe and wants to get surgery; however given his ostomy, he has not been digesting antidepressant medication, leaving his depression poorly treated; his medication was recently switched to immediate release to help with absorption and hopefully to help with depression. It is headline writer's opinion that for now, it is in patient's best interest to remain on the unit to help establish a more supportive disposition. Although patient very much does not want to miss his appointment this Wednesday, he is amenable to staying longer and getting the appointment rescheduled for the same reason. 10/24 Patient remains depressed but overall doing better in the sense that suicidality has resolved he is future oriented. He is focused on keeping himself stable and safe so he can go to his pre surgery appointment and then get surgery for reversal of colostomy. He does not think that the Wellbutrin immediate release has made any difference in his mood but patient remains pushing himself to be engaged in his grateful for help received. Discussed disposition options and patient amenable to respite; he will also continue to follow up with [facility]. Patient does have a friend in the community who might have a place that he can stay and is looking into that as well. Technical Services Specialist discussed case with nurse who knows him from past admissions at other hospital where he got ECT; this is a consideration given that his depression remains untreated due to poor absorption of antidepressants. 10/25 remains depressed but no SI; discussed history of ECT and although it was helpful, patient had bad experience with 1 of the trials and does not want ECT. Agrees to increase in Wellbutrin 10/26 hopefully increased Wellbutrin to 150 mg t.i.d. may be having some effect 10/27 continues to feel depression is lessened and of a different quality; no SI and has been without for some time now. Future focused on getting surgery. -of note, it's come to writers intention that headline writer misunderstood patients medical needs. Pt is unable to attach ostomy by himself due to anatomical location and he has been getting help with this since it's placement. Initially, headline writer was unaware of need for medical respite; will now reapply. Plan: CV Q 15 minute checks increased to Bupropion Immediate Release 150 mg T.i.d.; due to ostomy, long-acting not absorbed DC bupropion HCl XL 300 mg daily plus bupropion HCl XL 150 mg daily Increased to methadone 40 mg daily; patient asked for increase due to cravings Continue chlorpromazine 100 mg PO TID Continue clonazepam 2 mg PO BID Continue mirtazapine 30mg PO BEDTIME; may titrate further for continued depression Added clonidine p.r.n. for anxiety melatonin 3 mg PO BEDTIME PRN Continue loperamide 2 mg PO TID Continue Xarelto 20 mg PO DAILY@1800 Continue lansoprazole 30 mg Capsule,Delayed Release(Dr/Ec) daily Continue methenamine mandelate 1 g PO QID Patient educated on: diagnosis, medication risk/benefits, substance abuse and medical condition [facility] surgeon Dr. Myla Shi appointment set for October 21 10:45 regarding ostomy: both ileostomy and colostomy in place. Both are viable appearing. Can change ileostomy appliance every 3-4 days and as needed. Empty appliance Q shift and as needed. Can keep the colostomy covered with dry dressing such as allevyn pads or nonwoven sponge, as it is being proximally diverted. He has a very large parastomal hernia at the ileostomy site which is soft and reducible, no current intervention needed. consulted the coach cleanerFalguni to assist with education and appliance changes. Patient educated on: diagnosis, medication risk/benefits and medical condition Informed Consent: understands Reason for continued inpatient stay Substantial Risk for: stable for discharge Time Spent With Patient Time: Total time managing care of this patient today ____ minutes.
[2023-10-28] MEDS: buPROPion HCL 75 MG TABLET 150 MG PO ×3 (11:01→17:36)
[2023-10-28] MEDS: Mineral Oil/Petrolatum,White 106 GM Tube 1 APPL TOPICAL (14:03)
[2023-10-28] MEDS: Magnesium Hydrox/Alum Hydrox 30 ML ORAL.SUSP PO (14:04)
[2023-10-28] MEDS: Rivaroxaban 20 MG TABLET PO (17:36)
[2023-10-28 20:00] VITALS: RESP 16
[2023-10-28] MEDS: Mirtazapine 30 MG TABLET PO (21:52)
[2023-10-29 07:52] VITALS: BP 114/67; PULSE 77; RESP 16; TEMP 36.8; O2SAT 96
[2023-10-29] MEDS: methADONE HCl 20 MG/2 ML ORAL.CONC 40 MG PO (08:40)
[2023-10-29] MEDS: buPROPion HCL 75 MG TABLET 150 MG PO ×3 (08:40→17:27)
[2023-10-29] MEDS: chlorproMAZINE HCl 100 MG TABLET PO ×3 (08:41→21:03)
[2023-10-29] MEDS: Loperamide HCl 2 MG CAPSULE PO ×3 (08:41→21:03)
[2023-10-29] MEDS: clonazePAM 1 MG TABLET PO ×2 (08:41→21:04)
[2023-10-29] MEDS: Omeprazole 20 MG CAPSULE.DR PO (08:41)
[2023-10-29] MEDS: Mineral Oil/Petrolatum,White 106 GM Tube 1 APPL TOPICAL (14:27)
[2023-10-29] MEDS: Rivaroxaban 20 MG TABLET PO (17:27)
[2023-10-29 20:00] VITALS: BP 107/70; PULSE 95; TEMP 36.5; O2SAT 94
[2023-10-29] MEDS: Mirtazapine 30 MG TABLET PO (21:04)
--- NOTE | 2023-10-29 23:01 | P.PNPSI_ITS ---
Subjective Subjective Date of Service: 10/29/23 Reason For Visit: opiate overdose with suicidal intent Interim History: met with patient; discussed with team same presentation; discussed progress in getting dispo; discusssed ostomy care Mental Status Exam Mental Status Exam Narrative: Pt is alert and oriented; behavior is cooperative, calm; patient is not in distress; dressed casually, overall adequately groomed; mood is described as same and affect congruent, brighter; eye contact appropriate; Speech is normal volume, rate; psychomotor retardation present; thought process is organized and goal directed; Thought content is on medical treatment, psychosocial stressors; otherwise pertinent to relevant topics and without any delusional content, paranoid ideations or grandiosity; no SI; no HI. Denies AVH. There is no evidence of perceptual disturbance. Patients insight and judgment fair. Diagnostics Vital Signs (24Hr): Vital Signs - 24 hr 10/29/23 07:52 10/29/23 20:00 Temperature 98.2 F 97.7 F Pulse Rate 77 95 Respiratory Rate 16 Blood Pressure 114/67 107/70 Pulse Oximetry 96 94 Oxygen Delivery Method Room Air Room Air BMI result Body Mass Index 26.9 Medications Medications Current Medications Acetaminophen (Acetaminophen 325 Mg Tablet) 650 mg PO Q6H PRN PRN Reason: Headache/Pain Mild Scale (1-3) Last Admin: 10/18/23 16:05 Dose: 650 mg Al Hydroxide/Mg Hydroxide (Magnesium Hydrox/Alum Hydrox 30 Ml Oral.Susp) 30 ml PO Q6H PRN PRN Reason: Heartburn/Nausea Last Admin: 10/28/23 14:04 Dose: 30 ml Benzonatate (Benzonatate 100 Mg Capsule) 100 mg PO TID PRN PRN Reason: Cough Bupropion HCl (Bupropion Hcl 75 Mg Tablet) 150 mg PO TID@0900,1300,1700 [facility] Last Admin: 10/29/23 17:27 Dose: 150 mg Chlorpromazine HCl (Chlorpromazine Hcl 100 Mg Tablet) 100 mg PO TID [facility] Last Admin: 10/29/23 21:03 Dose: 100 mg Clonazepam (Clonazepam 1 Mg Tablet) 1 mg PO BID [facility] Last Admin: 10/29/23 21:04 Dose: 1 mg Clonidine HCl (Clonidine Hcl 0.1 Mg Tablet) 0.1 mg PO Q4H PRN; Protocol PRN Reason: moderate anxiety Last Admin: 10/15/23 12:32 Dose: 0.1 mg Docusate Sodium (Docusate Sodium 100 Mg Capsule) 100 mg PO DAILY PRN PRN Reason: Constipation Hydroxyzine HCl (Hydroxyzine Hcl 25 Mg Tablet) 25 mg PO BID PRN PRN Reason: itch Last Admin: 10/17/23 20:52 Dose: 25 mg Loperamide HCl (Loperamide Hcl 2 Mg Capsule) 2 mg PO TID [facility] Last Admin: 10/29/23 21:03 Dose: 2 mg Magnesium Hydroxide (Milk Of Magnesia 30 Ml Oral.Susp) 30 ml PO DAILY PRN PRN Reason: Constipation Melatonin (Melatonin 3 Mg Tablet) 6 mg PO BEDTIME PRN PRN Reason: Insomnia Methadone HCl (Methadone Hcl 20 Mg/2 Ml Oral.Conc) 40 mg PO DAILY [facility] Last Admin: 10/29/23 08:40 Dose: 40 mg Mirtazapine (Mirtazapine 30 Mg Tablet) 30 mg PO BEDTIME [facility] Last Admin: 10/29/23 21:04 Dose: 30 mg Multi-Ingred Cream/Lotion/Oil/Oint (Mineral Oil/Petrolatum,White 106 Gm Tube) 1 appl TOPICAL TID [facility]; Protocol Last Admin: 10/29/23 21:07 Dose: Not Given Nicotine (Nicotine 21 Mg Patch.Td24) 21 mg TRANSDERMA DAILY PRN PRN Reason: nicotine craving Nicotine Polacrilex (Nicotine Polacrilex 2 Mg Gum) 4 mg BUCCAL Q2H PRN PRN Reason: Nicotine Cravings Omeprazole (Omeprazole 20 Mg Capsule.Dr) 20 mg PO DAILY@0630 [facility] Last Admin: 10/29/23 08:41 Dose: 20 mg Rivaroxaban (Rivaroxaban 20 Mg Tablet) 20 mg PO DAILY@1800 [facility] Last Admin: 10/29/23 17:27 Dose: 20 mg Trazodone HCl (Trazodone Hcl 50 Mg Tablet) 50 mg PO BEDTIME MRX1 PRN PRN Reason: Insomnia Last Admin: 10/23/23 22:06 Dose: 50 mg Allergies Allergies Allergy/AdvReac Type Severity Reaction Status Date / Time haloperidol [From Haldol] AdvReac see note Verified 10/09/23 10:18 Assessment & Plan Assessment & Plan (1) MDD (major depressive disorder), recurrent, severe, with psychosis: Status: Acute Code(s): F33.3 - Major depressive disorder, recurrent, severe with psychotic symptoms (2) Post traumatic stress disorder (PTSD): Status: Acute Code(s): F43.10 - Post-traumatic stress disorder, unspecified (3) Opioid use disorder: Status: Acute Code(s): F11.90 - Opioid use, unspecified, uncomplicated (4) Cocaine use disorder: Status: Acute Code(s): F14.10 - Cocaine abuse, uncomplicated (5) Crohn's disease: Status: Acute Code(s): K50.90 - Crohn's disease, unspecified, without complications (6) Colostomy in place: Status: Acute Code(s): Z93.3 - Colostomy status (7) Ileostomy in place: Status: Acute Code(s): Z93.2 - Ileostomy status Plan Patient is a 48-year-old male with history of depression, opioid/cocaine abuse, Crohn's disease large bowel obstruction due to sigmoid stricture s/p colostomy, multiple psychiatric hospitalizations who presented to the ED for intentional drug overdose. Patient was found unresponsive on the back porch of a stranger's house after having injected cocaine/heroin into his neck. Patient was given Narcan and brought to the hospital. Patient reports that he intentionally overdosed in a suicide attempt following relational strife with his and being kicked out of the house. He was medically admitted and treated for rhabdomyolysis. Patient medically cleared and presents to for psychiatric admission. Patient reports that up until about 5 days ago he was doing well, good mood, taking his medications regularly and remain sober. Patient got into an argument with his , the details of which he did not disclose, and got kicked out of the house. Patient said that this triggered strong emotional response and he relapsed for the past 5 days; with continued depression and falling into despair patient got suicidal and intentionally overdosed on heroin cocaine. Patient remains depressed with intermittent suicidality present; he asks to get on methadone which he was on years ago, saying he needs this initially to help him stay sober and will get off it later on. He is amenable to medication adjustments, increasing antidepressants. Formulation/clinical reasoning: Will continue home medication; patient asking to be started on methadone which he has been on in the past to help him remain sober Continues to have SI though seems mostly related to being discharged to homelessness Will hold off increasing antidepressants for now since patient was on these doses for quite awhile, doing well hospital course: 10/12 Patient more open today. Shares more history. Says his girlfriend from cancer May 06; at that time he was hospitalized. He was doing better for while but got depressed again and was psychiatrically hospitalized at [facility] early this September. When he was discharged she went back to his female friend's house where he had been living in [place] but when he got there she told him he had a move out with little explanation. He said that is when he relapsed once on the street. Patient said because of the [facility] hosp alization he missed his surgical appointment to have his colostomy reversed. His worry is that if he is discharged back to the street, he will again relapse and again miss this important surgery. Patient says suicidality comes and goes but increases when he thinks of being homeless. -patient complained of some discomfort an anal region which resolved on its own after a shower 10/13 still depressed but slowly improving. Agrees to behavioral activation and push himself to attend groups. Increased mirtazapine to 15 mg which he agrees can be increased further if needed. Increasing methadone to 30 mg which he feels should be sufficient for staying sober. 10/17 increase Remeron to 30 mg; has outpatient appointment with surgical team WednesdayOctober 21 which he wants to attend. 10/18 patient remains depressed but says he stable; no SI and future oriented. He continues to want to discharge Wednesday to go to pre surgery appointment. Agrees to switching Wellbutrin to immediate release given poor absorption in the colon -team working on discharge planning in finding some housing until patient can get surgery. 10/19 patient depressed, but still feels stable, safe and wants to go to appointment on Wednesday, hopeful of getting some type of housing but saying he will take his chances if not. Hoping that immediate release Wellbutrin can make a difference; consider increasing it to t.i.d. 10/20 Patient tells check writer he wants to discharge tomorrow to his appointment. However also in the morning, he told a nurse that he plans to overdose after his appointment. Cab Worker returned later in the day to discuss this with patient who said that he was feeling upset and angry this morning and did say that however those feelings are gone now and he just wants to go to his pre-surgical appointment; he says that if they are not able to admit him for surgery at this appointment, he will just go and get a hotel until surgery is ready, saying he has enough money. Cab Worker came back again to discuss this further and patient said something to the effect of okay let me be open... There is a fight in my head whether to do something stupid or not... He goes on to say that he is worried that once discharged, he will cave in, use, get very angry at himself and intentionally overdose. He says I know depression will always be there... Sometimes I can control it... Patient says he does not want to , and very much wants surgery but he is currently worried about his ability to remain safe. He agrees that if he were able to get into a medical respite that would make a tremendous difference as he would be in a structured environment. 10/21 same presentation; continue current treatment plan Cab Worker and social media designer communicating with [facility] regarding dispo; rescheduled pre-surgical appointment -check writer agrees that patient wants to be safe and wants to get surgery; however given his ostomy, he has not been digesting antidepressant medication, leaving his depression poorly treated; his medication was recently switched to immediate release to help with absorption and hopefully to help with depression. It is check writer's opinion that for now, it is in patient's best interest to remain on the unit to help establish a more supportive disposition. Although patient very much does not want to miss his appointment this Wednesday, he is amenable to staying longer and getting the appointment rescheduled for the same reason. 10/24 Patient remains depressed but overall doing better in the sense that suicidality has resolved he is future oriented. He is focused on keeping himself stable and safe so he can go to his pre surgery appointment and then get surgery for reversal of colostomy. He does not think that the Wellbutrin immediate release has made any difference in his mood but patient remains pushing himself to be engaged in his grateful for help received. Discussed disposition options and patient amenable to respite; he will also continue to follow up with [facility]. Patient does have a friend in the community who might have a place that he can stay and is looking into that as well. Cab Worker discussed case with nurse who knows him from past admissions at other hospital where he got ECT; this is a consideration given that his depression remains untreated due to poor absorption of antidepressants. 10/25 remains depressed but no SI; discussed history of ECT and although it was helpful, patient had bad experience with 1 of the trials and does not want ECT. Agrees to increase in Wellbutrin 10/26 hopefully increased Wellbutrin to 150 mg t.i.d. may be having some effect 10/27 continues to feel depression is lessened and of a different quality; no SI and has been without for some time now. Future focused on getting surgery. -of note, it's come to writers intention that check writer misunderstood patients medical needs. Pt is unable to attach ostomy by himself due to anatomical location and he has been getting help with this since it's placement. Initially, check writer was unaware of need for medical respite; will now reapply. 10/28 continue tx plan; apply to medical respite Plan: CV Q 15 minute checks increased to Bupropion Immediate Release 150 mg T.i.d.; due to ostomy, long- acting not absorbed DC bupropion HCl XL 300 mg daily plus bupropion HCl XL 150 mg daily Increased to methadone 40 mg daily; patient asked for increase due to cravings Continue chlorpromazine 100 mg PO TID Continue clonazepam 2 mg PO BID Continue mirtazapine 30mg PO BEDTIME; may titrate further for continued depression Added clonidine p.r.n. for anxiety melatonin 3 mg PO BEDTIME PRN Continue loperamide 2 mg PO TID Continue Xarelto 20 mg PO DAILY@1800 Continue lansoprazole 30 mg Capsule,Delayed Release(Dr/Ec) daily Continue methenamine mandelate 1 g PO QID Patient educated on: diagnosis, medication risk/benefits, substance abuse and medical condition [facility] surgeon Dr. Myla Shi appointment set for October 21 10:45 regarding ostomy: both ileostomy and colostomy in place. Both are viable appearing. Can change ileostomy appliance every 3-4 days and as needed. Empty appliance Q shift and as needed. Can keep the colostomy covered with dry dressing such as allevyn pads or nonwoven sponge, as it is being proximally diverted. He has a very large parastomal hernia at the ileostomy site which is soft and reducible, no current intervention needed. consulted the it service delivery managerFalguni to assist with education and appliance changes. Patient educated on: diagnosis, medication risk/benefits and medical condition Informed Consent: understands Reason for continued inpatient stay Substantial Risk for: stable for discharge Time Spent With Patient Time: Total time managing care of this patient today ____ minutes.
--- NOTE | 2023-10-30 08:08 | HO.PSYCHPN ---
Subjective Subjective Date of Service: 10/30/23 Reason For Visit: opiate overdose with suicidal intent Interim History: met with patient. Discussed with nursing. Remains depressed. Slept for 9 hours. [facility] support. May have medical respite as part of disposition planning. Today with typewriter ribbon winder, minimal engagement, stated he had nothing to talk about and there was nothing he wanted to address with typewriter ribbon winder. He is known to typewriter ribbon winder from [facility] in the past and this level of engagement is consistent with other experiences. Medication Compliance: Yes Side effects from medications: No Attending Groups: No Review of Systems Acute medical concerns: No Mental Status Exam Mental Status Exam Narrative: In room. Fair self-care. Isolative. Minimal engagement. Appears depressed. Hopeless. No active SI evident. No HI evident. No psychosis evident. Diagnostics Vital Signs (24Hr): Vital Signs - 24 hr 10/29/23 20:00 Temperature 97.7 F Pulse Rate 95 Blood Pressure 107/70 Pulse Oximetry 94 Oxygen Delivery Method Room Air BMI result Body Mass Index 26.9 Medications Medications Current Medications Acetaminophen (Acetaminophen 325 Mg Tablet) 650 mg PO Q6H PRN PRN Reason: Headache/Pain Mild Scale (1-3) Last Admin: 10/18/23 16:05 Dose: 650 mg Al Hydroxide/Mg Hydroxide (Magnesium Hydrox/Alum Hydrox 30 Ml Oral.Susp) 30 ml PO Q6H PRN PRN Reason: Heartburn/Nausea Last Admin: 10/28/23 14:04 Dose: 30 ml Benzonatate (Benzonatate 100 Mg Capsule) 100 mg PO TID PRN PRN Reason: Cough Bupropion HCl (Bupropion Hcl 75 Mg Tablet) 150 mg PO TID@0900,1300,1700 [facility] Last Admin: 10/29/23 17:27 Dose: 150 mg Chlorpromazine HCl (Chlorpromazine Hcl 100 Mg Tablet) 100 mg PO TID [facility] Last Admin: 10/29/23 21:03 Dose: 100 mg Clonazepam (Clonazepam 1 Mg Tablet) 1 mg PO BID [facility] Last Admin: 10/29/23 21:04 Dose: 1 mg Clonidine HCl (Clonidine Hcl 0.1 Mg Tablet) 0.1 mg PO Q4H PRN; Protocol PRN Reason: moderate anxiety Last Admin: 10/15/23 12:32 Dose: 0.1 mg Docusate Sodium (Docusate Sodium 100 Mg Capsule) 100 mg PO DAILY PRN PRN Reason: Constipation Hydroxyzine HCl (Hydroxyzine Hcl 25 Mg Tablet) 25 mg PO BID PRN PRN Reason: itch Last Admin: 10/17/23 20:52 Dose: 25 mg Loperamide HCl (Loperamide Hcl 2 Mg Capsule) 2 mg PO TID [facility] Last Admin: 10/29/23 21:03 Dose: 2 mg Magnesium Hydroxide (Milk Of Magnesia 30 Ml Oral.Susp) 30 ml PO DAILY PRN PRN Reason: Constipation Melatonin (Melatonin 3 Mg Tablet) 6 mg PO BEDTIME PRN PRN Reason: Insomnia Methadone HCl (Methadone Hcl 20 Mg/2 Ml Oral.Conc) 40 mg PO DAILY [facility] Last Admin: 10/29/23 08:40 Dose: 40 mg Mirtazapine (Mirtazapine 30 Mg Tablet) 30 mg PO BEDTIME [facility] Last Admin: 10/29/23 21:04 Dose: 30 mg Multi-Ingred Cream/Lotion/Oil/Oint (Mineral Oil/Petrolatum,White 106 Gm Tube) 1 appl TOPICAL TID [facility]; Protocol Last Admin: 10/29/23 21:07 Dose: Not Given Nicotine (Nicotine 21 Mg Patch.Td24) 21 mg TRANSDERMA DAILY PRN PRN Reason: nicotine craving Nicotine Polacrilex (Nicotine Polacrilex 2 Mg Gum) 4 mg BUCCAL Q2H PRN PRN Reason: Nicotine Cravings Omeprazole (Omeprazole 20 Mg Capsule.Dr) 20 mg PO DAILY@0630 [facility] Last Admin: 10/30/23 07:16 Dose: Not Given Rivaroxaban (Rivaroxaban 20 Mg Tablet) 20 mg PO DAILY@1800 [facility] Last Admin: 10/29/23 17:27 Dose: 20 mg Trazodone HCl (Trazodone Hcl 50 Mg Tablet) 50 mg PO BEDTIME MRX1 PRN PRN Reason: Insomnia Last Admin: 10/23/23 22:06 Dose: 50 mg Allergies Allergies Allergy/AdvReac Type Severity Reaction Status Date / Time haloperidol [From Haldol] AdvReac see note Verified 10/09/23 10:18 Assessment & Plan Assessment & Plan (1) MDD (major depressive disorder), recurrent, severe, with psychosis: Status: Acute Code(s): F33.3 - Major depressive disorder, recurrent, severe with psychotic symptoms (2) Post traumatic stress disorder (PTSD): Status: Acute Code(s): F43.10 - Post-traumatic stress disorder, unspecified (3) Opioid use disorder: Status: Acute Code(s): F11.90 - Opioid use, unspecified, uncomplicated (4) Cocaine use disorder: Status: Acute Code(s): F14.10 - Cocaine abuse, uncomplicated (5) Crohn's disease: Status: Acute Code(s): K50.90 - Crohn's disease, unspecified, without complications (6) Colostomy in place: Status: Acute Code(s): Z93.3 - Colostomy status (7) Ileostomy in place: Status: Acute Code(s): Z93.2 - Ileostomy status Plan Patient is a 48-year-old male with history of depression, opioid/cocaine abuse, Crohn's disease large bowel obstruction due to sigmoid stricture s/p colostomy, multiple psychiatric hospitalizations who presented to the ED for intentional drug overdose. Patient was found unresponsive on the back porch of a stranger's house after having injected cocaine/heroin into his neck. Patient was given Narcan and brought to the hospital. Patient reports that he intentionally overdosed in a suicide attempt following relational strife with his and being kicked out of the house. He was medically admitted and treated for rhabdomyolysis. Patient medically cleared and presents to for psychiatric admission. Patient reports that up until about 5 days ago he was doing well, good mood, taking his medications regularly and remain sober. Patient got into an argument with his , the details of which he did not disclose, and got kicked out of the house. Patient said that this triggered strong emotional response and he relapsed for the past 5 days; with continued depression and falling into despair patient got suicidal and intentionally overdosed on heroin cocaine. Patient remains depressed with intermittent suicidality present; he asks to get on methadone which he was on years ago, saying he needs this initially to help him stay sober and will get off it later on. He is amenable to medication adjustments, increasing antidepressants. Formulation/clinical reasoning: Will continue home medication; patient asking to be started on methadone which he has been on in the past to help him remain sober Continues to have SI though seems mostly related to being discharged to homelessness Will hold off increasing antidepressants for now since patient was on these doses for quite awhile, doing well hospital course: 10/12 Patient more open today. Shares more history. Says his girlfriend from cancer May 06; at that time he was hospitalized. He was doing better for while but got depressed again and was psychiatrically hospitalized at [facility] early this September. When he was discharged she went back to his female friend's house where he had been living in [place] but when he got there she told him he had a move out with little explanation. He said that is when he relapsed once on the street. Patient said because of the [facility] hospitalization he missed his surgical appointment to have his colostomy reversed. His worry is that if he is discharged back to the street, he will again relapse and again miss this important surgery. Patient says suicidality comes and goes but increases when he thinks of being homeless. -patient complained of some discomfort an anal region which resolved on its own after a shower 10/13 still depressed but slowly improving. Agrees to behavioral activation and push himself to attend groups. Increased mirtazapine to 15 mg which he agrees can be increased further if needed. Increasing methadone to 30 mg which he feels should be sufficient for staying sober. 10/17 increase Remeron to 30 mg; has outpatient appointment with surgical team WednesdayOctober 21 which he wants to attend. 10/18 patient remains depressed but says he stable; no SI and future oriented. He continues to want to discharge Wednesday to go to pre surgery appointment. Agrees to switching Wellbutrin to immediate release given poor absorption in the colon -team working on discharge planning in finding some housing until patient can get surgery. 10/19 patient depressed, but still feels stable, safe and wants to go to appointment on Wednesday, hopeful of getting some type of housing but saying he will take his chances if not. Hoping that immediate release Wellbutrin can make a difference; consider increasing it to t.i.d. 10/20 Patient tells typewriter ribbon winder he wants to discharge tomorrow to his appointment. However also in the morning, he told a nurse that he plans to overdose after his appointment. Computer Discovery Teacher returned later in the day to discuss this with patient who said that he was feeling upset and angry this morning and did say that however those feelings are gone now and he just wants to go to his pre-surgical appointment; he says that if they are not able to admit him for surgery at this appointment, he will just go and get a hotel until surgery is ready, saying he has enough money. Computer Discovery Teacher came back again to discuss this further and patient said something to the effect of okay let me be open... There is a fight in my head whether to do something stupid or not... He goes on to say that he is worried that once discharged, he will cave in, use, get very angry at himself and intentionally overdose. He says I know depression will always be there... Sometimes I can control it... Patient says he does not want to , and very much wants surgery but he is currently worried about his ability to remain safe. He agrees that if he were able to get into a medical respite that would make a tremendous difference as he would be in a structured environment. 10/21 same presentation; continue current treatment plan Computer Discovery Teacher and group social worker communicating with [facility] regarding dispo; rescheduled pre-surgical appointment -typewriter ribbon winder agrees that patient wants to be safe and wants to get surgery; however given his ostomy, he has not been digesting antidepressant medication, leaving his depression poorly treated; his medication was recently switched to immediate release to help with absorption and hopefully to help with depression. It is typewriter ribbon winder's opinion that for now, it is in patient's best interest to remain on the unit to help establish a more supportive disposition. Although patient very much does not want to miss his appointment this Wednesday, he is amenable to staying longer and getting the appointment rescheduled for the same reason. 10/24 Patient remains depressed but overall doing better in the sense that suicidality has resolved he is future oriented. He is focused on keeping himself stable and safe so he can go to his pre surgery appointment and then get surgery for reversal of colostomy. He does not think that the Wellbutrin immediate release has made any difference in his mood but patient remains pushing himself to be engaged in his grateful for help received. Discussed disposition options and patient amenable to respite; he will also continue to follow up with [facility]. Patient does have a friend in the community who might have a place that he can stay and is looking into that as well. Computer Discovery Teacher discussed case with nurse who knows him from past admissions at other hospital where he got ECT; this is a consideration given that his depression remains untreated due to poor absorption of antidepressants. 10/25 remains depressed but no SI; discussed history of ECT and although it was helpful, patient had bad experience with 1 of the trials and does not want ECT. Agrees to increase in Wellbutrin 10/26 hopefully increased Wellbutrin to 150 mg t.i.d. may be having some effect 10/30/2023: No changes to current plan Plan: CV Q 15 minute checks increase to Bupropion Immediate Release 150 mg T.i.d.; due to ostomy, long-acting not absorbed DC bupropion HCl XL 300 mg daily plus bupropion HCl XL 150 mg daily Increased to methadone 40 mg daily; patient asked for increase due to cravings Continue chlorpromazine 100 mg PO TID Continue clonazepam 2 mg PO BID Continue mirtazapine 30mg PO BEDTIME; may titrate further for continued depression Added clonidine p.r.n. for anxiety melatonin 3 mg PO BEDTIME PRN Continue loperamide 2 mg PO TID Continue Xarelto 20 mg PO DAILY@1800 Continue lansoprazole 30 mg Capsule,Delayed Release(Dr/Ec) daily Continue methenamine mandelate 1 g PO QID Patient educated on: diagnosis, medication risk/benefits, substance abuse and medical condition [facility] surgeon Dr. Myla Shi appointment set for October 21 10:45 regarding ostomy: both ileostomy and colostomy in place. Both are viable appearing. Can change ileostomy appliance every 3-4 days and as needed. Empty appliance Q shift and as needed. Can keep the colostomy covered with dry dressing such as allevyn pads or nonwoven sponge, as it is being proximally diverted. He has a very large parastomal hernia at the ileostomy site which is soft and reducible, no current intervention needed. consulted the eye physicianFalguni to assist with education and appliance changes. Reason for continued inpatient stay Substantial Risk for: harm to self Time Spent With Patient Time: Total time managing care of this patient today ____ minutes.
[2023-10-30] MEDS: buPROPion HCL 75 MG TABLET 150 MG PO ×3 (08:43→17:18)
[2023-10-30] MEDS: chlorproMAZINE HCl 100 MG TABLET PO ×3 (08:43→21:42)
[2023-10-30] MEDS: methADONE HCl 20 MG/2 ML ORAL.CONC 40 MG PO (08:44)
[2023-10-30] MEDS: clonazePAM 1 MG TABLET PO ×2 (08:44→21:42)
[2023-10-30] MEDS: Loperamide HCl 2 MG CAPSULE PO ×3 (08:44→21:43)
[2023-10-30 13:08] VITALS: BP 133/79; PULSE 92; RESP 20; TEMP 36.9; O2SAT 94
[2023-10-30] MEDS: Mineral Oil/Petrolatum,White 106 GM Tube 1 APPL TOPICAL (14:11)
[2023-10-30] MEDS: Acetaminophen 325 MG TABLET 650 MG PO ×2 (15:49→21:48)
[2023-10-30] MEDS: Rivaroxaban 20 MG TABLET PO (17:18)
[2023-10-30] MEDS: Mirtazapine 30 MG TABLET PO (21:42)
[2023-10-31 08:51] VITALS: BP 156/94; PULSE 110; RESP 19; TEMP 36.8; O2SAT 93
[2023-10-31] MEDS: methADONE HCl 20 MG/2 ML ORAL.CONC 40 MG PO (08:54)
[2023-10-31] MEDS: clonazePAM 1 MG TABLET PO ×2 (08:54→23:45)
[2023-10-31] MEDS: chlorproMAZINE HCl 100 MG TABLET PO ×3 (08:54→23:44)
[2023-10-31] MEDS: Omeprazole 20 MG CAPSULE.DR PO (08:55)
[2023-10-31] MEDS: Loperamide HCl 2 MG CAPSULE PO ×3 (08:55→23:44)
[2023-10-31] MEDS: buPROPion HCL 75 MG TABLET 150 MG PO ×3 (08:55→17:19)
--- NOTE | 2023-10-31 10:55 | P.PNPSI_ITS ---
Subjective Subjective Date of Service: 10/31/23 Reason For Visit: opiate overdose with suicidal intent Interim History: met with patient. Discussed with nursing. Remains depressed. complaining of tooth pain. [facility] support. May have medical respite as part of disposition planning. Today with check writer salesperson, minimal engagement, Although did allow check writer salesperson to examine mouth for tooth pain. Left lower molars do show some inflammation in the gum area with swelling. Medication Compliance: Yes Side effects from medications: No Attending Groups: No Review of Systems Acute medical concerns: No Review of Systems Review of Systems Left lower gum/tooth erythema and swelling Mental Status Exam Mental Status Exam Narrative: In room. Fair self-care. Isolative. Minimal engagement. Appears depressed. Hopeless. No active SI evident. No HI evident. No psychosis evident. Diagnostics Vital Signs (24Hr): Vital Signs - 24 hr 10/30/23 13:08 10/31/23 08:51 Temperature 98.4 F 98.2 F Pulse Rate 92 110 H Respiratory Rate 20 19 Blood Pressure 133/79 156/94 H Pulse Oximetry 94 93 Oxygen Delivery Method Room Air Room Air BMI result Body Mass Index 26.9 Medications Medications Current Medications Acetaminophen (Acetaminophen 325 Mg Tablet) 650 mg PO Q6H PRN PRN Reason: Headache/Pain Mild Scale (1-3) Last Admin: 10/30/23 21:48 Dose: 650 mg Al Hydroxide/Mg Hydroxide (Magnesium Hydrox/Alum Hydrox 30 Ml Oral.Susp) 30 ml PO Q6H PRN PRN Reason: Heartburn/Nausea Last Admin: 10/28/23 14:04 Dose: 30 ml Benzocaine (Benzocaine 20 % Oral Gel 9 Gm Tube) 1 appl MUCOUS MEM QID PRN; Protocol PRN Reason: toothache Benzonatate (Benzonatate 100 Mg Capsule) 100 mg PO TID PRN PRN Reason: Cough Bupropion HCl (Bupropion Hcl 75 Mg Tablet) 150 mg PO TID@0900,1300,1700 [facility] Last Admin: 10/31/23 08:55 Dose: 150 mg Chlorpromazine HCl (Chlorpromazine Hcl 100 Mg Tablet) 100 mg PO TID [facility] Last Admin: 10/31/23 08:54 Dose: 100 mg Clonazepam (Clonazepam 1 Mg Tablet) 1 mg PO BID [facility] Last Admin: 10/31/23 08:54 Dose: 1 mg Clonidine HCl (Clonidine Hcl 0.1 Mg Tablet) 0.1 mg PO Q4H PRN; Protocol PRN Reason: moderate anxiety Last Admin: 10/15/23 12:32 Dose: 0.1 mg Docusate Sodium (Docusate Sodium 100 Mg Capsule) 100 mg PO DAILY PRN PRN Reason: Constipation Hydroxyzine HCl (Hydroxyzine Hcl 25 Mg Tablet) 25 mg PO BID PRN PRN Reason: itch Last Admin: 10/17/23 20:52 Dose: 25 mg Ibuprofen (Ibuprofen 800 Mg Tablet) 800 mg PO Q8H PRN PRN Reason: toothache Loperamide HCl (Loperamide Hcl 2 Mg Capsule) 2 mg PO TID [facility] Last Admin: 10/31/23 08:55 Dose: 2 mg Magnesium Hydroxide (Milk Of Magnesia 30 Ml Oral.Susp) 30 ml PO DAILY PRN PRN Reason: Constipation Melatonin (Melatonin 3 Mg Tablet) 6 mg PO BEDTIME PRN PRN Reason: Insomnia Methadone HCl (Methadone Hcl 20 Mg/2 Ml Oral.Conc) 40 mg PO DAILY [facility] Last Admin: 10/31/23 08:54 Dose: 40 mg Mirtazapine (Mirtazapine 30 Mg Tablet) 30 mg PO BEDTIME [facility] Last Admin: 10/30/23 21:42 Dose: 30 mg Multi-Ingred Cream/Lotion/Oil/Oint (Mineral Oil/Petrolatum,White 106 Gm Tube) 1 appl TOPICAL TID [facility]; Protocol Last Admin: 10/31/23 08:59 Dose: Not Given Nicotine (Nicotine 21 Mg Patch.Td24) 21 mg TRANSDERMA DAILY PRN PRN Reason: nicotine craving Nicotine Polacrilex (Nicotine Polacrilex 2 Mg Gum) 4 mg BUCCAL Q2H PRN PRN Reason: Nicotine Cravings Omeprazole (Omeprazole 20 Mg Capsule.Dr) 20 mg PO DAILY@0630 [facility] Last Admin: 10/31/23 08:55 Dose: 20 mg Rivaroxaban (Rivaroxaban 20 Mg Tablet) 20 mg PO DAILY@1800 [facility] Last Admin: 10/30/23 17:18 Dose: 20 mg Trazodone HCl (Trazodone Hcl 50 Mg Tablet) 50 mg PO BEDTIME MRX1 PRN PRN Reason: Insomnia Last Admin: 10/23/23 22:06 Dose: 50 mg Allergies Allergies Allergy/AdvReac Type Severity Reaction Status Date / Time haloperidol [From Haldol] AdvReac see note Verified 10/09/23 10:18 Assessment & Plan Assessment & Plan (1) MDD (major depressive disorder), recurrent, severe, with psychosis: Status: Acute Code(s): F33.3 - Major depressive disorder, recurrent, severe with psychotic symptoms (2) Post traumatic stress disorder (PTSD): Status: Acute Code(s): F43.10 - Post-traumatic stress disorder, unspecified (3) Opioid use disorder: Status: Acute Code(s): F11.90 - Opioid use, unspecified, uncomplicated (4) Cocaine use disorder: Status: Acute Code(s): F14.10 - Cocaine abuse, uncomplicated (5) Crohn's disease: Status: Acute Code(s): K50.90 - Crohn's disease, unspecified, without complications (6) Colostomy in place: Status: Acute Code(s): Z93.3 - Colostomy status (7) Ileostomy in place: Status: Acute Code(s): Z93.2 - Ileostomy status Plan Patient is a 48-year-old male with history of depression, opioid/cocaine abuse, Crohn's disease large bowel obstruction due to sigmoid stricture s/p colostomy, multiple psychiatric hospitalizations who presented to the ED for intentional drug overdose. Patient was found unresponsive on the back porch of a stranger's house after having injected cocaine/heroin into his neck. Patient was given Narcan and brought to the hospital. Patient reports that he intentionally overdosed in a suicide attempt following relational strife with his and being kicked out of the house. He was medically admitted and treated for rhabdomyolysis. Patient medically cleared and presents to for psychiatric admission. Patient reports that up until about 5 days ago he was doing well, good mood, taking his medications regularly and remain sober. Patient got into an argument with his , the details of which he did not disclose, and got kicked out of the house. Patient said that this triggered strong emotional response and he relapsed for the past 5 days; with continued depression and falling into despair patient got suicidal and intentionally overdosed on heroin cocaine. Patient remains depressed with intermittent suicidality present; he asks to get on methadone which he was on years ago, saying he needs this initially to help him stay sober and will get off it later on. He is amenable to medication adjustments, increasing antidepressants. Formulation/clinical reasoning: Will continue home medication; patient asking to be started on methadone which he has been on in the past to help him remain sober Continues to have SI though seems mostly related to being discharged to homelessness Will hold off increasing antidepressants for now since patient was on these doses for quite awhile, doing well hospital course: 10/12 Patient more open today. Shares more history. Says his girlfriend from cancer May 06; at that time he was hospitalized. He was doing better for while but got depressed again and was psychiatrically hospitalized at [facility] early this September. When he was discharged she went back to his female friend's house where he had been living in [place] but when he got there she told him he had a move out with little explanation. He said that is when he relapsed once on the street. Patient said because of the [facility] hospitalization he missed his surgical appointment to have his colostomy reversed. His worry is that if he is discharged back to the street, he will again relapse and again miss this important surgery. Patient says suicidality comes and goes but increases when he thinks of being homeless. -patient complained of some discomfort an anal region which resolved on its own after a shower 10/13 still depressed but slowly improving. Agrees to behavioral activation and push himself to attend groups. Increased mirtazapine to 15 mg which he agrees can be increased further if needed. Increasing methadone to 30 mg which he feels should be sufficient for staying sober. 10/17 increase Remeron to 30 mg; has outpatient appointment with surgical team WednesdayOctober 21 which he wants to attend. 10/18 patient remains depressed but says he stable; no SI and future oriented. He continues to want to discharge Wednesday to go to pre surgery appointment. Agrees to switching Wellbutrin to immediate release given poor absorption in the colon -team working on discharge planning in finding some housing until patient can get surgery. 10/19 patient depressed, but still feels stable, safe and wants to go to appointment on Wednesday, hopeful of getting some type of housing but saying he will take his chances if not. Hoping that immediate release Wellbutrin can make a difference; consider increasing it to t.i.d. 10/20 Patient tells check writer salesperson he wants to discharge tomorrow to his appointment. However also in the morning, he told a nurse that he plans to overdose after his appointment. Nurse [facility] returned later in the day to discuss this with patient who said that he was feeling upset and angry this morning and did say that however those feelings are gone now and he just wants to go to his pre-surgical appointment; he says that if they are not able to admit him for surgery at this appointment, he will just go and get a hotel until surgery is ready, saying he has enough money. Nurse [facility] came back again to discuss this further and patient said something to the effect of okay let me be open... There is a fight in my head whether to do something stupid or not... He goes on to say that he is worried that once discharged, he will cave in, use, get very angry at himself and intentionally overdose. He says I know depression will always be there... Sometimes I can control it... Patient says he does not want to , and very much wants surgery but he is currently worried about his ability to remain safe. He agrees that if he were able to get into a medical respite that would make a tremendous difference as he would be in a structured environment. 10/21 same presentation; continue current treatment plan Nurse [facility] and dialysis social worker communicating with [facility] regarding dispo; rescheduled pre-surgical appointment -check writer salesperson agrees that patient wants to be safe and wants to get surgery; however given his ostomy, he has not been digesting antidepressant medication, leaving his depression poorly treated; his medication was recently switched to immediate release to help with absorption and hopefully to help with depression. It is check writer salesperson's opinion that for now, it is in patient's best interest to remain on the unit to help establish a more supportive disposition. Although patient very much does not want to miss his appointment this Wednesday, he is amenable to staying longer and getting the appointment rescheduled for the same reason. 10/24 Patient remains depressed but overall doing better in the sense that suicidality has resolved he is future oriented. He is focused on keeping himself stable and safe so he can go to his pre surgery appointment and then get surgery for reversal of colostomy. He does not think that the Wellbutrin immediate release has made any difference in his mood but patient remains pushing himself to be engaged in his grateful for help received. Discussed disposition options and patient amenable to respite; he will also continue to follow up with [facility]. Patient does have a friend in the community who might have a place that he can stay and is looking into that as well. [facility] discussed case with nurse who knows him from past admissions at other hospital where he got ECT; this is a consideration given that his depression remains untreated due to poor absorption of antidepressants. 10/25 remains depressed but no SI; discussed history of ECT and although it was helpful, patient had bad experience with 1 of the trials and does not want ECT. Agrees to increase in Wellbutrin 10/26 hopefully increased Wellbutrin to 150 mg t.i.d. may be having some effect 10/30/2023: No changes to current plan 10/31/2023: Anbesol and amoxicillin for tooth/gum infection Plan: CV Q 15 minute checks increase to Bupropion Immediate Release 150 mg T.i.d.; due to ostomy, long- acting not absorbed DC bupropion HCl XL 300 mg daily plus bupropion HCl XL 150 mg daily Increased to methadone 40 mg daily; patient asked for increase due to cravings Continue chlorpromazine 100 mg PO TID Continue clonazepam 2 mg PO BID Continue mirtazapine 30mg PO BEDTIME; may titrate further for continued depression Added clonidine p.r.n. for anxiety melatonin 3 mg PO BEDTIME PRN Continue loperamide 2 mg PO TID Continue Xarelto 20 mg PO DAILY@1800 Continue lansoprazole 30 mg Capsule,Delayed Release(Dr/Ec) daily Continue methenamine mandelate 1 g PO QID Patient educated on: diagnosis, medication risk/benefits, substance abuse and medical condition [facility] surgeon Dr. Myla Shi appointment set for October 21 10:45 regarding ostomy: both ileostomy and colostomy in place. Both are viable appearing. Can change ileostomy appliance every 3-4 days and as needed. Empty appliance Q shift and as needed. Can keep the colostomy covered with dry dressing such as allevyn pads or nonwov en sponge, as it is being proximally diverted. He has a very large parastomal hernia at the ileostomy site which is soft and reducible, no current intervention needed. consulted the transportation sales consultantFalguni to assist with education and appliance changes. Reason for continued inpatient stay Substantial Risk for: harm to self Time Spent With Patient Time: Total time managing care of this patient today ____ minutes.
[2023-10-31] MEDS: Benzocaine 20 % Oral Gel 9 GM TUBE 1 APPL MUCOUS MEM (12:28)
[2023-10-31] MEDS: Amoxicillin/Potassium Clav 875 MG TABLET PO ×2 (12:45→23:44)
[2023-10-31] MEDS: Ibuprofen 800 MG TABLET PO (13:17)
[2023-10-31] MEDS: Mineral Oil/Petrolatum,White 106 GM Tube 1 APPL TOPICAL (14:28)
[2023-10-31] MEDS: Rivaroxaban 20 MG TABLET PO (17:19)
[2023-10-31] MEDS: traZODone HCL 50 MG TABLET PO (23:44)
[2023-10-31] MEDS: Acetaminophen 325 MG TABLET 650 MG PO (23:44)
[2023-10-31] MEDS: Mirtazapine 30 MG TABLET PO (23:44)
[2023-11-01 08:00] VITALS: BP 115/62; PULSE 101; RESP 18; TEMP 36.4; O2SAT 94
--- NOTE | 2023-11-01 09:42 | HO.PSYCHPN ---
Subjective Subjective Date of Service: 11/01/23 Reason For Visit: opiate overdose with suicidal intent Interim History: Met with patient; discussed with team Patient remains doing overall little better and depression remains lessened. Discussed ostomy bag and how Ostomy bag is anatomically located in a difficult place for patient to apply himself. Knot Picker Cloth discussed with wound care nurse felt it might be possible and attempted to teach patient; she felt that he was able to get much of a done however it was still anatomically located too far for him to fully do by himself and he remains needing assistance. She said she will continue working with him, practicing with him. Social work setting up application to [facility] respite; process description writer calling medical respite Over the weekend patient had dental tooth pain; was started on antibiotic by covering provider Mental Status Exam Mental Status Exam Narrative: Pt is alert and oriented; behavior is cooperative, calm; patient is not in distress; dressed in hospital gown, overall adequately groomed; mood is described as ok and affect congruent, brighter; eye contact appropriate; Speech is normal volume, rate; psychomotor retardation present; thought process is organized and goal directed; Thought content is on medical treatment, psychosocial stressors; otherwise pertinent to relevant topics and without any delusional content, paranoid ideations or grandiosity; no SI; no HI. Denies AVH. There is no evidence of perceptual disturbance. Patients insight and judgment fair. Diagnostics Vital Signs (24Hr): BMI result Body Mass Index 26.9 Medications Medications Current Medications Acetaminophen (Acetaminophen 325 Mg Tablet) 650 mg PO Q6H PRN PRN Reason: Headache/Pain Mild Scale (1-3) Last Admin: 10/31/23 23:44 Dose: 650 mg Al Hydroxide/Mg Hydroxide (Magnesium Hydrox/Alum Hydrox 30 Ml Oral.Susp) 30 ml PO Q6H PRN PRN Reason: Heartburn/Nausea Last Admin: 10/28/23 14:04 Dose: 30 ml Amoxicillin/Clavulanate Potassium (Amoxicillin/Potassium Clav 875 Mg Tablet) 875 mg PO BID NEIDA Stop: 11/07/23 12:29 Last Admin: 10/31/23 23:44 Dose: 875 mg Benzocaine (Benzocaine 20 % Oral Gel 9 Gm Tube) 1 appl MUCOUS MEM QID PRN; Protocol PRN Reason: toothache Last Admin: 10/31/23 12:28 Dose: 1 appl Benzonatate (Benzonatate 100 Mg Capsule) 100 mg PO TID PRN PRN Reason: Cough Bupropion HCl (Bupropion Hcl 75 Mg Tablet) 150 mg PO TID@0900,1300,1700 [facility] Last Admin: 10/31/23 17:19 Dose: 150 mg Chlorpromazine HCl (Chlorpromazine Hcl 100 Mg Tablet) 100 mg PO TID [facility] Last Admin: 10/31/23 23:44 Dose: 100 mg Clonazepam (Clonazepam 1 Mg Tablet) 1 mg PO BID [facility] Last Admin: 10/31/23 23:45 Dose: 1 mg Clonidine HCl (Clonidine Hcl 0.1 Mg Tablet) 0.1 mg PO Q4H PRN; Protocol PRN Reason: moderate anxiety Last Admin: 10/15/23 12:32 Dose: 0.1 mg Docusate Sodium (Docusate Sodium 100 Mg Capsule) 100 mg PO DAILY PRN PRN Reason: Constipation Hydroxyzine HCl (Hydroxyzine Hcl 25 Mg Tablet) 25 mg PO BID PRN PRN Reason: itch Last Admin: 10/17/23 20:52 Dose: 25 mg Ibuprofen (Ibuprofen 800 Mg Tablet) 800 mg PO Q8H PRN PRN Reason: toothache Last Admin: 10/31/23 13:17 Dose: 800 mg Loperamide HCl (Loperamide Hcl 2 Mg Capsule) 2 mg PO TID [facility] Last Admin: 10/31/23 23:44 Dose: 2 mg Magnesium Hydroxide (Milk Of Magnesia 30 Ml Oral.Susp) 30 ml PO DAILY PRN PRN Reason: Constipation Melatonin (Melatonin 3 Mg Tablet) 6 mg PO BEDTIME PRN PRN Reason: Insomnia Methadone HCl (Methadone Hcl 20 Mg/2 Ml Oral.Conc) 40 mg PO DAILY [facility] Last Admin: 10/31/23 08:54 Dose: 40 mg Mirtazapine (Mirtazapine 30 Mg Tablet) 30 mg PO BEDTIME [facility] Last Admin: 10/31/23 23:44 Dose: 30 mg Multi-Ingred Cream/Lotion/Oil/Oint (Mineral Oil/Petrolatum,White 106 Gm Tube) 1 appl TOPICAL TID [facility]; Protocol Last Admin: 11/01/23 00:48 Dose: Not Given Nicotine (Nicotine 21 Mg Patch.Td24) 21 mg TRANSDERMA DAILY PRN PRN Reason: nicotine craving Nicotine Polacrilex (Nicotine Polacrilex 2 Mg Gum) 4 mg BUCCAL Q2H PRN PRN Reason: Nicotine Cravings Omeprazole (Omeprazole 20 Mg Capsule.) 20 mg PO DAILY@0630 [facility] Last Admin: 11/01/23 04:54 Dose: Not Given Rivaroxaban (Rivaroxaban 20 Mg Tablet) 20 mg PO DAILY@1800 [facility] Last Admin: 10/31/23 17:19 Dose: 20 mg Trazodone HCl (Trazodone Hcl 50 Mg Tablet) 50 mg PO BEDTIME MRX1 PRN PRN Reason: Insomnia Last Admin: 10/31/23 23:44 Dose: 50 mg Allergies Allergies Allergy/AdvReac Type Severity Reaction Status Date / Time haloperidol [From Haldol] AdvReac see note Verified 10/09/23 10:18 Assessment & Plan Assessment & Plan (1) MDD (major depressive disorder), recurrent, severe, with psychosis: Status: Acute Code(s): F33.3 - Major depressive disorder, recurrent, severe with psychotic symptoms (2) Post traumatic stress disorder (PTSD): Status: Acute Code(s): F43.10 - Post-traumatic stress disorder, unspecified (3) Opioid use disorder: Status: Acute Code(s): F11.90 - Opioid use, unspecified, uncomplicated (4) Cocaine use disorder: Status: Acute Code(s): F14.10 - Cocaine abuse, uncomplicated (5) Crohn's disease: Status: Acute Code(s): K50.90 - Crohn's disease, unspecified, without complications (6) Colostomy in place: Status: Acute Code(s): Z93.3 - Colostomy status (7) Ileostomy in place: Status: Acute Code(s): Z93.2 - Ileostomy status Plan Patient is a 48-year-old male with history of depression, opioid/cocaine abuse, Crohn's disease large bowel obstruction due to sigmoid stricture s/p colostomy, multiple psychiatric hospitalizations who presented to the ED for intentional drug overdose. Patient was found unresponsive on the back porch of a stranger's house after having injected cocaine/heroin into his neck. Patient was given Narcan and brought to the hospital. Patient reports that he intentionally overdosed in a suicide attempt following relational strife with his and being kicked out of the house. He was medically admitted and treated for rhabdomyolysis. Patient medically cleared and presents to for psychiatric admission. Patient reports that up until about 5 days ago he was doing well, good mood, taking his medications regularly and remain sober. Patient got into an argument with his , the details of which he did not disclose, and got kicked out of the house. Patient said that this triggered strong emotional response and he relapsed for the past 5 days; with continued depression and falling into despair patient got suicidal and intentionally overdosed on heroin cocaine. Patient remains depressed with intermittent suicidality present; he asks to get on methadone which he was on years ago, saying he needs this initially to help him stay sober and will get off it later on. He is amenable to medication adjustments, increasing antidepressants. Formulation/clinical reasoning: Will continue home medication; patient asking to be started on methadone which he has been on in the past to help him remain sober Continues to have SI though seems mostly related to being discharged to homelessness Will hold off increasing antidepressants for now since patient was on these doses for quite awhile, doing well hospital course: 10/12 Patient more open today. Shares more history. Says his girlfriend from cancer May 06; at that time he was hospitalized. He was doing better for while but got depressed again and was psychiatrically hospitalized at [facility] early this September. When he was discharged she went back to his female friend's house where he had been living in [place] but when he got there she told him he had a move out with little explanation. He said that is when he relapsed once on the street. Patient said because of the [facility] hospitalization he missed his surgical appointment to have his colostomy reversed. His worry is that if he is discharged back to the street, he will again relapse and again miss this important surgery. Patient says suicidality comes and goes but increases when he thinks of being homeless. -patient complained of some discomfort an anal region which resolved on its own after a shower 10/13 still depressed but slowly improving. Agrees to behavioral activation and push himself to attend groups. Increased mirtazapine to 15 mg which he agrees can be increased further if needed. Increasing methadone to 30 mg which he feels should be sufficient for staying sober. 10/17 increase Remeron to 30 mg; has outpatient appointment with surgical team WednesdayOctober 21 which he wants to attend. 10/18 patient remains depressed but says he stable; no SI and future oriented. He continues to want to discharge Wednesday to go to pre surgery appointment. Agrees to switching Wellbutrin to immediate release given poor absorption in the colon -team working on discharge planning in finding some housing until patient can get surgery. 10/19 patient depressed, but still feels stable, safe and wants to go to appointment on Wednesday, hopeful of getting some type of housing but saying he will take his chances if not. Hoping that immediate release Wellbutrin can make a difference; consider increasing it to t.i.d. 10/20 Patient tells process description writer he wants to discharge tomorrow to his appointment. However also in the morning, he told a nurse that he plans to overdose after his appointment. Knot Picker Cloth returned later in the day to discuss this with patient who said that he was feeling upset and angry this morning and did say that however those feelings are gone now and he just wants to go to his pre-surgical appointment; he says that if they are not able to admit him for surgery at this appointment, he will just go and get a hotel until surgery is ready, saying he has enough money. Knot Picker Cloth came back again to discuss this further and patient said something to the effect of okay let me be open... There is a fight in my head whether to do something stupid or not... He goes on to say that he is worried that once discharged, he will cave in, use, get very angry at himself and intentionally overdose. He says I know depression will always be there... Sometimes I can control it... Patient says he does not want to , and very much wants surgery but he is currently worried about his ability to remain safe. He agrees that if he were able to get into a medical respite that would make a tremendous difference as he would be in a structured environment. 10/21 same presentation; continue current treatment plan Knot Picker Cloth and hospice social worker communicating with [facility] regarding dispo; rescheduled pre-surgical appointment -process description writer agrees that patient wants to be safe and wants to get surgery; however given his ostomy, he has not been digesting antidepressant medication, leaving his depression poorly treated; his medication was recently switched to immediate release to help with absorption and hopefully to help with depression. It is process description writer's opinion that for now, it is in patient's best interest to remain on the unit to help establish a more supportive disposition. Although patient very much does not want to miss his appointment this Wednesday, he is amenable to staying longer and getting the appointment rescheduled for the same reason. 10/24 Patient remains depressed but overall doing better in the sense that suicidality has resolved he is future oriented. He is focused on keeping himself stable and safe so he can go to his pre surgery appointment and then get surgery for reversal of colostomy. He does not think that the Wellbutrin immediate release has made any difference in his mood but patient remains pushing himself to be engaged in his grateful for help received. Discussed disposition options and patient amenable to respite; he will also continue to follow up with [facility]. Patient does have a friend in the community who might have a place that he can stay and is looking into that as well. Knot Picker Cloth discussed case with nurse who knows him from past admissions at other hospital where he got ECT; this is a consideration given that his depression remains untreated due to poor absorption of antidepressants. 10/25 remains depressed but no SI; discussed history of ECT and although it was helpful, patient had bad experience with 1 of the trials and does not want ECT. Agrees to increase in Wellbutrin 10/26 hopefully increased Wellbutrin to 150 mg t.i.d. may be having some effect 10/30/2023: No changes to current plan 10/31/2023: Anbesol and amoxicillin for tooth/gum infection 10/31 Patient remains doing overall little better and depression remains lessened. Discussed ostomy bag and how Ostomy bag is anatomically located in a difficult place for patient to apply himself. Knot Picker Cloth discussed with wound care nurse felt it might be possible and attempted to teach patient; she felt that he was able to get much of a done however it was still anatomically located too far for him to fully do by himself and he remains needing assistance. She said she will continue working with him, practicing with him. -Social work setting up application to [facility] respite; process description writer calling medical respite -Over the weekend patient had dental tooth pain; was started on antibiotic by [facility] provider Plan: CV Q 15 minute checks continue Bupropion Immediate Release 150 mg T.i.d.; due to ostomy, long-acting not absorbed DC bupropion HCl XL 300 mg daily plus bupropion HCl XL 150 mg daily Increased to methadone 40 mg daily; patient asked for increase due to cravings Continue chlorpromazine 100 mg PO TID Continue clonazepam 2 mg PO BID Continue mirtazapine 30mg PO BEDTIME; may titrate further for continued depression Added clonidine p.r.n. for anxiety melatonin 3 mg PO BEDTIME PRN Continue loperamide 2 mg PO TID Continue Xarelto 20 mg PO DAILY@1800 Continue lansoprazole 30 mg Capsule,Delayed Release(Dr/Ec) daily Continue methenamine mandelate 1 g PO QID Patient educated on: diagnosis, medication risk/benefits, substance abuse and medical condition [facility] surgeon Dr. Myla Shi appointment set for October 21 10:45 regarding ostomy: both ileostomy and colostomy in place. Both are viable appearing. Can change ileostomy appliance every 3-4 days and as needed. Empty appliance Q shift and as needed. Can keep the colostomy covered with dry dressing such as allevyn pads or nonwoven sponge, as it is being proximally diverted. He has a very large parastomal hernia at the ileostomy site which is soft and reducible, no current intervention needed. consulted the knot tying operator, Falguni to assist with education and appliance changes. Patient educated on: diagnosis, medication risk/benefits and medical condition Informed Consent: understands Reason for continued inpatient stay Substantial Risk for: stable for discharge Time Spent With Patient Time: Total time managing care of this patient today ____ minutes.
[2023-11-01] MEDS: Amoxicillin/Potassium Clav 875 MG TABLET PO ×2 (10:12→21:54)
[2023-11-01] MEDS: buPROPion HCL 75 MG TABLET 150 MG PO ×3 (10:12→18:01)
[2023-11-01] MEDS: clonazePAM 1 MG TABLET PO ×2 (10:12→21:54)
[2023-11-01] MEDS: Omeprazole 20 MG CAPSULE.DR PO (10:12)
[2023-11-01] MEDS: chlorproMAZINE HCl 100 MG TABLET PO ×3 (10:13→21:54)
[2023-11-01] MEDS: Loperamide HCl 2 MG CAPSULE PO ×3 (10:13→21:54)
[2023-11-01] MEDS: methADONE HCl 20 MG/2 ML ORAL.CONC 40 MG PO (10:13)
[2023-11-01] MEDS: Ibuprofen 800 MG TABLET PO ×2 (11:31→21:57)
[2023-11-01] MEDS: Benzocaine 20 % Oral Gel 9 GM TUBE 1 APPL MUCOUS MEM ×2 (12:07→18:06)
[2023-11-01] MEDS: Rivaroxaban 20 MG TABLET PO (18:01)
[2023-11-01] MEDS: Acetaminophen 325 MG TABLET 650 MG PO (18:05)
[2023-11-01 20:00] VITALS: BP 109/77; PULSE 92; RESP 16; TEMP 36.8; O2SAT 94
[2023-11-01] MEDS: Mirtazapine 30 MG TABLET PO (21:54)
--- NOTE | 2023-11-01 22:33 | HO.OSTOMY ---
Ostomy Consult: Follow up Follow up consult for difficult to pouch ostomy on M5 - [facility]. ?He had diverting loop Ileostomy unclear on exact creation but chart review reveals reversal was scheduled but patient missed this scheduled surgery due to prior hospitalization at outside facility. ? Patient agreeable to consultation - met in treatment room patient is less interactive at my initial consultation reports he has tooth pain. Direct care nurse to medicate pt and i will return to bedside for pouch change. Approximately one hour later - return to unit and patient was more agreeable to attempting to preform a pouch change independently in his room in front of the mirror. Given he is unable to visualize his stoma in the sitting or lying position. He was willing to try. We started in the treatment room with him verbally walking me through a pouch change. He was able to use the template to cut the pouch he reports this is the first time he has ever done this step. He will benefit from practice of this task. Today revealed lifting from the medial side and when removed silent leaking noted at 3 and 9 o'clock. The peristomal skin continues to improve visibly and comfort per pt report. In front on the mirror the patient was able to perform much of his pouch change he did need reinforcement and assistance at various points. Overall he did fantastic for such a difficult to pouch stoma and given he has never done this independently before. For discharge planning the patient does not have enough experience or ability to be able to independently change the pouch at this time, he will likely fail if discharged with out services. He was changed into a Coloplast 58127, 1 Piece cut to fit (28 oval), Moldable Ring was used, stoma red / pink and moist. ? He will likely need peristomal shaving at next pouch change. The pouch was completed with a belt application as I provided one at todays visit. He continues to be independent with emptying - pt advised to empty more often since the less weight on the pouch the better it will stay in place. ?He reported having no questions at this time. ?Patient was made aware that myself will return to bedside later in the week for ongoing education. ?All questions and concerns addressed at this time. See previous notes for step by step instruction also left copy of step by step with staff.
[2023-11-02 08:00] VITALS: BP 103/67; PULSE 78; RESP 14; TEMP 36.8; O2SAT 97
[2023-11-02] MEDS: Omeprazole 20 MG CAPSULE.DR PO (08:53)
[2023-11-02] MEDS: buPROPion HCL 75 MG TABLET 150 MG PO ×3 (08:54→17:39)
[2023-11-02] MEDS: Loperamide HCl 2 MG CAPSULE PO ×3 (08:54→20:31)
[2023-11-02] MEDS: clonazePAM 1 MG TABLET PO ×2 (08:54→20:31)
[2023-11-02] MEDS: Amoxicillin/Potassium Clav 875 MG TABLET PO ×2 (08:54→20:31)
[2023-11-02] MEDS: chlorproMAZINE HCl 100 MG TABLET PO ×3 (08:55→20:31)
[2023-11-02] MEDS: methADONE HCl 20 MG/2 ML ORAL.CONC 40 MG PO (08:57)
--- NOTE | 2023-11-02 14:29 | HO.OSTOMY ---
Ostomy Consult: Follow up Follow up consult for difficult to pouch ostomy on M5 - [facility]. ?He had diverting loop Ileostomy unclear on exact creation but chart review reveals reversal was scheduled but patient missed this scheduled surgery due to prior hospitalization at outside facility. ? Patient not agreeable to teaching today per direct care nurse. She reports pouch is intact and not leaking, encouraged to congratulate patient on his work since he is not leaking 24 hrs after his first application. The patient will need continued teaching and support given the complexity of this abdomen. Will attempt teaching tomorrow.
[2023-11-02] MEDS: Ibuprofen 800 MG TABLET PO (15:32)
[2023-11-02] MEDS: Mineral Oil/Petrolatum,White 106 GM Tube 1 APPL TOPICAL (15:33)
[2023-11-02] MEDS: Benzocaine 20 % Oral Gel 9 GM TUBE 1 APPL MUCOUS MEM (15:34)
[2023-11-02] MEDS: Rivaroxaban 20 MG TABLET PO (17:34)
--- NOTE | 2023-11-02 18:52 | P.PNPSI_ITS ---
Subjective Subjective Date of Service: 11/02/23 Reason For Visit: opiate overdose with suicidal intent Interim History: Met with patient; discussed with team Today patient decided he was not going to go to [facility] respite and refused phone appointment with them. Patient said it was only for 6 days anyway so he did not want to bother. Patient also refused to go to [place], medical rehab establishment. He said he had been there before and it is a dump... Bi Application Developer discussed that while that may be true, it is temporary and can not be worse than a usp since they do actually have medical staff assisting with medical issues. Patient declined and said he will just continue to look for his own place. Continues to call his friend asking if he can stay there. Patient continues to practice working on his ostomy with wound nurse. Mental Status Exam Mental Status Exam Narrative: Pt is alert and oriented; behavior is cooperative, calm; patient is not in distress; dressed in hospital gown, overall adequately groomed; mood is described as ok and affect congruent, brighter; eye contact appropriate; Speech is normal volume, rate; psychomotor retardation present; thought process is organized and goal directed; Thought content is on medical treatment, psychosocial stressors; otherwise pertinent to relevant topics and without any delusional content, paranoid ideations or grandiosity; no SI; no HI. Denies AVH. There is no evidence of perceptual disturbance. Patients insight and judgment fair. Diagnostics Vital Signs (24Hr): Vital Signs - 24 hr 11/01/23 20:00 11/02/23 08:00 Temperature 98.2 F 98.2 F Pulse Rate 92 78 Respiratory Rate 16 14 Blood Pressure 109/77 103/67 Pulse Oximetry 94 97 Oxygen Delivery Method Room Air Room Air BMI result Body Mass Index 26.9 Medications Medications Current Medications Acetaminophen (Acetaminophen 325 Mg Tablet) 650 mg PO Q6H PRN PRN Reason: Headache/Pain Mild Scale (1-3) Last Admin: 11/01/23 18:05 Dose: 650 mg Al Hydroxide/Mg Hydroxide (Magnesium Hydrox/Alum Hydrox 30 Ml Oral.Susp) 30 ml PO Q6H PRN PRN Reason: Heartburn/Nausea Last Admin: 10/28/23 14:04 Dose: 30 ml Amoxicillin/Clavulanate Potassium (Amoxicillin/Potassium Clav 875 Mg Tablet) 875 mg PO BID NEIDA Stop: 11/07/23 12:29 Last Admin: 11/02/23 08:54 Dose: 875 mg Benzocaine (Benzocaine 20 % Oral Gel 9 Gm Tube) 1 appl MUCOUS MEM QID PRN; Protocol PRN Reason: toothache Last Admin: 11/02/23 15:34 Dose: 1 appl Benzonatate (Benzonatate 100 Mg Capsule) 100 mg PO TID PRN PRN Reason: Cough Bupropion HCl (Bupropion Hcl 75 Mg Tablet) 150 mg PO TID@0900,1300,1700 [facility] Last Admin: 11/02/23 17:39 Dose: 150 mg Chlorpromazine HCl (Chlorpromazine Hcl 100 Mg Tablet) 100 mg PO TID [facility] Last Admin: 11/02/23 15:32 Dose: 100 mg Clonazepam (Clonazepam 1 Mg Tablet) 1 mg PO BID [facility] Last Admin: 11/02/23 08:54 Dose: 1 mg Clonidine HCl (Clonidine Hcl 0.1 Mg Tablet) 0.1 mg PO Q4H PRN; Protocol PRN Reason: moderate anxiety Last Admin: 10/15/23 12:32 Dose: 0.1 mg Docusate Sodium (Docusate Sodium 100 Mg Capsule) 100 mg PO DAILY PRN PRN Reason: Constipation Hydroxyzine HCl (Hydroxyzine Hcl 25 Mg Tablet) 25 mg PO BID PRN PRN Reason: itch Last Admin: 10/17/23 20:52 Dose: 25 mg Ibuprofen (Ibuprofen 800 Mg Tablet) 800 mg PO Q8H PRN PRN Reason: toothache Last Admin: 11/02/23 15:32 Dose: 800 mg Loperamide HCl (Loperamide Hcl 2 Mg Capsule) 2 mg PO TID [facility] Last Admin: 11/02/23 15:32 Dose: 2 mg Magnesium Hydroxide (Milk Of Magnesia 30 Ml Oral.Susp) 30 ml PO DAILY PRN PRN Reason: Constipation Melatonin (Melatonin 3 Mg Tablet) 6 mg PO BEDTIME PRN PRN Reason: Insomnia Methadone HCl (Methadone Hcl 20 Mg/2 Ml Oral.Conc) 40 mg PO DAILY [facility] Last Admin: 11/02/23 08:57 Dose: 40 mg Mirtazapine (Mirtazapine 30 Mg Tablet) 30 mg PO BEDTIME [facility] Last Admin: 11/01/23 21:54 Dose: 30 mg Multi-Ingred Cream/Lotion/Oil/Oint (Mineral Oil/Petrolatum,White 106 Gm Tube) 1 appl TOPICAL TID [facility]; Protocol Last Admin: 11/02/23 15:33 Dose: 1 appl Nicotine (Nicotine 21 Mg Patch.Td24) 21 mg TRANSDERMA DAILY PRN PRN Reason: nicotine craving Nicotine Polacrilex (Nicotine Polacrilex 2 Mg Gum) 4 mg BUCCAL Q2H PRN PRN Reason: Nicotine Cravings Omeprazole (Omeprazole 20 Mg Capsule.Dr) 20 mg PO DAILY@0630 [facility] Last Admin: 11/02/23 08:53 Dose: 20 mg Rivaroxaban (Rivaroxaban 20 Mg Tablet) 20 mg PO DAILY@1800 [facility] Last Admin: 11/02/23 17:34 Dose: 20 mg Trazodone HCl (Trazodone Hcl 50 Mg Tablet) 50 mg PO BEDTIME MRX1 PRN PRN Reason: Insomnia Last Admin: 10/31/23 23:44 Dose: 50 mg Allergies Allergies Allergy/AdvReac Type Severity Reaction Status Date / Time haloperidol [From Haldol] AdvReac see note Verified 10/09/23 10:18 Assessment & Plan Assessment & Plan (1) MDD (major depressive disorder), recurrent, severe, with psychosis: Status: Acute Code(s): F33.3 - Major depressive disorder, recurrent, severe with psychotic symptoms (2) Post traumatic stress disorder (PTSD): Status: Acute Code(s): F43.10 - Post-traumatic stress disorder, unspecified (3) Opioid use disorder: Status: Acute Code(s): F11.90 - Opioid use, unspecified, uncomplicated (4) Cocaine use disorder: Status: Acute Code(s): F14.10 - Cocaine abuse, uncomplicated (5) Crohn's disease: Status: Acute Code(s): K50.90 - Crohn's disease, unspecified, without complications (6) Colostomy in place: Status: Acute Code(s): Z93.3 - Colostomy status (7) Ileostomy in place: Status: Acute Code(s): Z93.2 - Ileostomy status Plan Patient is a 48-year-old male with history of depression, opioid/cocaine abuse, Crohn's disease large bowel obstruction due to sigmoid stricture s/p colostomy, multiple psychiatric hospitalizations who presented to the ED for intentional drug overdose. Patient was found unresponsive on the back porch of a stranger's house after having injected cocaine/heroin into his neck. Patient was given Narcan and brought to the hospital. Patient reports that he intentionally overdosed in a suicide attempt following relational strife with his and being kicked out of the house. He was medically admitted and treated for rhabdomyolysis. Patient medically cleared and presents to for psychiatric admission. Patient reports that up until about 5 days ago he was doing well, good mood, taking his medications regularly and remain sober. Patient got into an argument with his , the details of which he did not disclose, and got kicked out of the house. Patient said that this triggered strong emotional response and he relapsed for the past 5 days; with continued depression and falling into despair patient got suicidal and intentionally overdosed on heroin cocaine. Patient remains depressed with intermittent suicidality present; he asks to get on methadone which he was on years ago, saying he needs this initially to help him stay sober and will get off it later on. He is amenable to medication adjustments, increasing antidepressants. Formulation/clinical reasoning: Will continue home medication; patient asking to be started on methadone which he has been on in the past to help him remain sober Continues to have SI though seems mostly related to being discharged to homelessness Will hold off increasing antidepressants for now since patient was on these doses for quite awhile, doing well hospital course: 10/12 Patient more open today. Shares more history. Says his girlfriend from cancer May 06; at that time he was hospitalized. He was doing better for while but got depressed again and was psychiatrically hospitalized at [facility] early this September. When he was discharged she went back to his female friend's house where he had been living in [place] but when he got there she told him he had a move out with little explanation. He said that is when he relapsed once on the street. Patient said because of the [facility] hospitalization he missed his surgical appointment to have his colostomy reversed. His worry is that if he is discharged back to the street, he will again relapse and again miss this important surgery. Patient says suicidality comes and goes but increases when he thinks of being homeless. -patient complained of some discomfort an anal region which resolved on its own after a shower 10/13 still depressed but slowly improving. Agrees to behavioral activation and push himself to attend groups. Increased mirtazapine to 15 mg which he agrees can be increased further if needed. Increasing methadone to 30 mg which he feels should be sufficient for staying sober. 10/17 increase Remeron to 30 mg; has outpatient appointment with surgical team WednesdayOctober 21 which he wants to attend. 10/18 patient remains depressed but says he stable; no SI and future oriented. He continues to want to discharge Wednesday to go to pre surgery appointment. Agrees to switching Wellbutrin to immediate release given poor absorption in the colon -team working on discharge planning in finding some housing until patient can get surgery. 10/19 patient depressed, but still feels stable, safe and wants to go to appointment on Wednesday, hopeful of getting some type of housing but saying he will take his chances if not. Hoping that immediate release Wellbutrin can make a difference; consider increasing it to t.i.d. 10/20 Patient tells play writer he wants to discharge tomorrow to his appointment. However also in the morning, he told a nurse that he plans to overdose after his appointment. Bi Application Developer returned later in the day to discuss this with patient who said that he was feeling upset and angry this morning and did say that however those feelings are gone now and he just wants to go to his pre-surgical appointment; he says that if they are not able to admit him for surgery at this appointment, he will just go and get a hotel until surgery is ready, saying he has enough money. Bi Application Developer came back again to discuss this further and patient said something to the effect of okay let me be open... There is a fight in my head whether to do something stupid or not... He goes on to say that he is worried that once discharged, he will cave in, use, get very angry at himself and intentionally overdose. He says I know depression will always be there... Sometimes I can control it... Patient says he does not want to , and very much wants surgery but he is currently worried about his ability to remain safe. He agrees that if he were able to get into a medical respite that would make a tremendous difference as he would be in a structured environment. 10/21 same presentation; continue current treatment plan Bi Application Developer and social service assistant communicating with [facility] regarding dispo; rescheduled pre-surgical appointment -play writer agrees that patient wants to be safe and wants to get surgery; however given his ostomy, he has not been digesting antidepressant medication, leaving his depression poorly treated; his medication was recently switched to immediate release to help with absorption and hopefully to help with depression. It is play writer's opinion that for now, it is in patient's best interest to remain on the unit to help establish a more supportive disposition. Although patient very much does not want to miss his appointment this Wednesday, he is amenable to staying longer and getting the appointment rescheduled for the same reason. 10/24 Patient remains depressed but overall doing better in the sense that suicidality has resolved he is future oriented. He is focused on keeping himself stable and safe so he can go to his pre surgery appointment and then get surgery for reversal of colostomy. He does not think that the Wellbutrin i mmediate release has made any difference in his mood but patient remains pushing himself to be engaged in his grateful for help received. Discussed disposition options and patient amenable to respite; he will also continue to follow up with [facility]. Patient does have a friend in the community who might have a place that he can stay and is looking into that as well. Bi Application Developer discussed case with nurse who knows him from past admissions at other hospital where he got ECT; this is a consideration given that his depression remains untreated due to poor absorption of antidepressants. 10/25 remains depressed but no SI; discussed history of ECT and although it was helpful, patient had bad experience with 1 of the trials and does not want ECT. Agrees to increase in Wellbutrin 10/26 hopefully increased Wellbutrin to 150 mg t.i.d. may be having some effect 10/30/2023: No changes to current plan 10/31/2023: Anbesol and amoxicillin for tooth/gum infection 10/31 Patient remains doing overall little better and depression remains lessened. Discussed ostomy bag and how Ostomy bag is anatomically located in a difficult place for patient to apply himself. Bi Application Developer discussed with wound care nurse felt it might be possible and attempted to teach patient; she felt that he was able to get much of a done however it was still anatomically located too far for him to fully do by himself and he remains needing assistance. She said she will continue working with him, practicing with him. -Social work setting up application to [facility] respite; play writer calling medical respite -Over the weekend patient had dental tooth pain; was started on antibiotic by covering provider 11/01 patient remained psychiatrically stable with improved mood; safe, no SI and future oriented. Patient continues to practice working on his ostomy with wound nurse. -play writer discussed case with medical respite who agrees to look again at his application; however they informed that there are currently no beds available, nor will there be any time soon. Today patient decided he was not going to go to [facility] respite and refused phone appointment with them. Patient said it was only for 6 days anyway so he did not want to bother (even though play writer explains the 6 days be enough time for him to get to his appointment). Patient also refused to go to [place], medical rehab establishment. He said he had been there before and it is a dump... Bi Application Developer discussed that while that may be true, it is temporary and can not be worse than a usp since they do actually have medical staff assisting with medical issues. Patient declined. Instead he said he will just continue to look for his own place, even if that has a usp and that he will manage on his own; while he expresses gratitude for help received, he said he does not need play writer/social work's help further and this area. He continues to call his friend asking if he can stay there. Patient has full capacity to make medical decisions for himself; although he has chronic depression and passive SI, he denies any actual SI and is not imminent risk for harm to self or others. He remains future oriented and very much wants to get surgery. Bi Application Developer and team will continue to explore options with the few days remaining of this admission. However, as patient has refused both respite and medical rehab facility and other offers for dispo help, play writer understands that patient is able to make his own decisions in this area. Plan: CV Q 15 minute checks Continue Bupropion Immediate Release 150 mg T.i.d.; due to ostomy, long-acting not absorbed DC bupropion HCl XL 300 mg daily plus bupropion HCl XL 150 mg daily Increased to methadone 40 mg daily; patient asked for increase due to cravings Continue chlorpromazine 100 mg PO TID Continue clonazepam 2 mg PO BID Continue mirtazapine 30mg PO BEDTIME; may titrate further for continued depression Added clonidine p.r.n. for anxiety melatonin 3 mg PO BEDTIME PRN Continue loperamide 2 mg PO TID Continue Xarelto 20 mg PO DAILY@1800 Continue lansoprazole 30 mg Capsule,Delayed Release(Dr/Ec) daily Continue methenamine mandelate 1 g PO QID Patient educated on: diagnosis, medication risk/benefits, substance abuse and medical condition [facility] surgeon Dr. Myla Shi appointment set for October 21 10:45 regarding ostomy: both ileostomy and colostomy in place. Both are viable appearing. Can change ileostomy appliance every 3-4 days and as needed. Empty appliance Q shift and as needed. Can keep the colostomy covered with dry dressing such as allevyn pads or nonwove n sponge, as it is being proximally diverted. He has a very large parastomal hernia at the ileostomy site which is soft and reducible, no current intervention needed. consulted the rougher merchant [employer] to assist with education and appliance changes. Patient educated on: diagnosis, medication risk/benefits, therapeutic strategies and medical condition Informed Consent: understands Reason for continued inpatient stay Substantial Risk for: stable for discharge Time Spent With Patient Time: Total time managing care of this patient today ____ minutes.
[2023-11-02 20:00] VITALS: BP 105/60; PULSE 89; RESP 18; TEMP 36.9; O2SAT 98
[2023-11-02] MEDS: Mirtazapine 30 MG TABLET PO (20:31)
[2023-11-02] MEDS: traZODone HCL 50 MG TABLET PO (20:31)
[2023-11-03 08:00] VITALS: BP 110/69; PULSE 78; RESP 18; TEMP 36.8; O2SAT 96
[2023-11-03] MEDS: Amoxicillin/Potassium Clav 875 MG TABLET PO ×2 (08:46→21:22)
[2023-11-03] MEDS: buPROPion HCL 75 MG TABLET 150 MG PO ×3 (08:46→16:08)
[2023-11-03] MEDS: clonazePAM 1 MG TABLET PO ×2 (08:47→21:22)
[2023-11-03] MEDS: Omeprazole 20 MG CAPSULE.DR PO (08:47)
[2023-11-03] MEDS: Loperamide HCl 2 MG CAPSULE PO ×3 (08:47→21:22)
[2023-11-03] MEDS: chlorproMAZINE HCl 100 MG TABLET PO ×3 (08:47→21:22)
[2023-11-03] MEDS: methADONE HCl 20 MG/2 ML ORAL.CONC 40 MG PO (08:49)
--- NOTE | 2023-11-03 13:22 | HO.OSTOMY ---
Ostomy Consult: Follow up Follow up consult for difficult to pouch ostomy on M5 - [facility]. ?He had diverting loop Ileostomy unclear on exact date of creation but chart review reveals reversal was scheduled but patient missed this scheduled surgery due to prior hospitalization at outside facility. ? Patient agreeable to consultation - met in patient room - patient was bright and agreeable to teaching. Prior to my arrival patient received news he may be able to be placed in a medical facility to aid in his continued recovery. This will be ideal as the patient can continue to make improvements and gain independence but to have the support of staff. The patient and staff report the patients pouch was changed at 6pm yesterday and again at 3am without following the below steps since items were out of supply - stock has since been supplied. Although his pouch was not leaking he was agreeable to changing his pouch. He was hesitant to perform the pouch change independently but he ultimately agreed since I would be with him and available to assist. We agreed to start with a stoma model pouch change. The patient performed the entire stoma model pouch change with very little assistance. This is obviously easy as he is not competing with the large hernia and deep mote that is created in his abdomen when he is standing or sitting. This task appeared to be extremely challenging mentally and focus zavala, he took his time and was able to think through each step but it appeared to take a significant amount of effort for him. At the end he reported being so tired he did not want to perform the pouch himself and he requested I do the actual pouch change. He was encouraged to perform the task himself and he would ultimately benefit from the completion. He was agreeable - this was performed in front of the mirror. He did a great job and was able to follow each step without guidance there was minor assistance at times such as I shaved his abdomen again to increase pouch adherence. Other times I held his skin fold so he could see the stoma. He became increasing tired and then frustrated at the time to apply the barrier ring - he reported being a his limit for attention span - I agreed to take over and complete the pouch change but the patient observed in the mirror. He will need continued support and assistance but the patient should be encouraged to continue to participate in his own changing of his pouch because he will get more comfortable and faster with each change. Overall he did fantastic for such a difficult to pouch stoma and given he has only performed this one other time on Wednesday. . For discharge planning the patient does not have enough experience or ability to be able to independently change the pouch at this time, he will likely fail if discharged with out services. He was changed into a Coloplast 93208, 1 Piece CONVEX cut to fit (28 oval), Moldable Ring was used, stoma red / pink and moist. ?Stoma paste applied at 3 and 9 o'clock. Convex pouch applied along with elastic curved barrier strips to the pouch 2 placed on the medial side. The pouch was completed with a belt application. Patient reports the pouch makes a significant difference for him and his pouch adherence. The peristomal skin continues to improve visibly and comfort per pt report. He continues to be independent with emptying - pt advised to empty more often since the less weight on the pouch the better it will stay in place. ?He reported having no questions at this time. ?Patient was made aware that myself will return to bedside later in the week for ongoing education if he remains inpatient. ?All questions and concerns addressed at this time. See below for step by step instruction. Supplies needed at time of discharge: Coloplast Convex Pouches # [id number] Coloplast Ostomy Belt # [id number] Coloplast Barrier Ring # [id number] Coloplast Powder # [id number] [employer] Skin barrier wipes [facility] # [id number]? Coloplast Curved Elastic Strips # [id number] Coloplast Paste (2 tubes at bedside should not need more at this time) Ostomy Pouching Recommendations for Brian Lu ? 1)Remove pouch every 3-4 days. Change sooner if you notice any leaking.? Do not reinforce with tape.?Patient histroically leaks at the 3 o'clock area with in the valley created from his hernia. Stoma when lying flat ? Stoma when sitting Patient standing with mirror for viewing while he provides his care is imperative to success as he is not able to see his stoma in any other position. Ideally patient will lay flat for proper pouch application and adherence, but if independent may working supervisor front of wait high mirror. 2)Clean skin around stoma with warm water and soft cloth.? Avoid using soaps or lotions.? Discontinue Adhesive remover. *Soaps can contain aloes/lanolins/extracts which leave film on skin that will interfere with pouch adherence. Pat skin dry. 4) For the red and irritated skin dust with Stomahesive powder, dust off all excess powder, then seal with no sting prep, allow to dry. Powder Skin Prep 5) Prepare products; Cut ostomy pouch we use to approximately 28mm Oval- Use Templates left in patient bin, Coloplast [employer] [place] Deep Convexity #[id number]. ??Provider must special order. 6) Fill the area around the stoma with Moldable Barrier Ring at this time. Apply small amount of paste to the 3 and 9 o'clock creases this is wear he leaks the most. 7) Remove adhesive paper backing from back of pouch wafer apply Gentle Warm pressure to seal the wafer to his skin.? 8) Complete pouch change with application of [place] Elastic C strips to allow for added adherence.? Complete with belt application - pt instructed to wear the belt to for added pressure to correct the way the stoma faces.? Patient educated on the belt being to tight and to monitor his skin.?
[2023-11-03] MEDS: Ibuprofen 800 MG TABLET PO (16:08)
[2023-11-03] MEDS: Rivaroxaban 20 MG TABLET PO (17:36)
[2023-11-03 20:00] VITALS: BP 104/59; PULSE 80; RESP 16; TEMP 36.7; O2SAT 95
[2023-11-03] MEDS: traZODone HCL 50 MG TABLET PO (21:22)
[2023-11-03] MEDS: Mirtazapine 30 MG TABLET PO (21:22)
--- NOTE | 2023-11-03 23:50 | HO.PSYCHPN ---
Subjective Subjective Date of Service: 11/03/23 Reason For Visit: opiate overdose with suicidal intent Interim History: Met with patient; discussed with team Patient again expressed gratitude for help received; he says he is continuing to apply his friend Maday to get her to let him stay with her. Says they used to be romantically involved but his substance abuse room in the relationship. She remains good friends with him in supportive but she is hesitant to let him stay with her because she does not want to risk him using in her apartment. He says he will continue to hope she will given; she said she would think about it. Director Of Food And Nutrition and team pursued another option however that to proved unavailable. Patient remains optimistic that he will stay sober while waiting for surgery. Left molar continues to hurt; marketing underwriter will place consult Mental Status Exam Mental Status Exam Narrative: Pt is alert and oriented; behavior is cooperative, calm; patient is not in distress; dressed in hospital gown, overall adequately groomed; mood is described as ok and affect congruent, brighter; eye contact appropriate; Speech is normal volume, rate; psychomotor retardation present; thought process is organized and goal directed; Thought content is on medical treatment, psychosocial stressors; otherwise pertinent to relevant topics and without any delusional content, paranoid ideations or grandiosity; no SI; no HI. Denies AVH. There is no evidence of perceptual disturbance. Patients insight and judgment fair. Diagnostics Vital Signs (24Hr): Vital Signs - 24 hr 11/03/23 08:00 Temperature 98.2 F Pulse Rate 78 Respiratory Rate 18 Blood Pressure 110/69 Pulse Oximetry 96 Oxygen Delivery Method Room Air BMI result Body Mass Index 26.9 Medications Medications Current Medications Acetaminophen (Acetaminophen 325 Mg Tablet) 650 mg PO Q6H PRN PRN Reason: Headache/Pain Mild Scale (1-3) Last Admin: 11/01/23 18:05 Dose: 650 mg Al Hydroxide/Mg Hydroxide (Magnesium Hydrox/Alum Hydrox 30 Ml Oral.Susp) 30 ml PO Q6H PRN PRN Reason: Heartburn/Nausea Last Admin: 10/28/23 14:04 Dose: 30 ml Amoxicillin/Clavulanate Potassium (Amoxicillin/Potassium Clav 875 Mg Tablet) 875 mg PO BID NEIDA Stop: 11/07/23 12:29 Last Admin: 11/03/23 21:22 Dose: 875 mg Benzocaine (Benzocaine 20 % Oral Gel 9 Gm Tube) 1 appl MUCOUS MEM QID PRN; Protocol PRN Reason: toothache Last Admin: 11/02/23 15:34 Dose: 1 appl Benzonatate (Benzonatate 100 Mg Capsule) 100 mg PO TID PRN PRN Reason: Cough Bupropion HCl (Bupropion Hcl 75 Mg Tablet) 150 mg PO TID@0900,1300,1700 [facility] Last Admin: 11/03/23 16:08 Dose: 150 mg Chlorpromazine HCl (Chlorpromazine Hcl 100 Mg Tablet) 100 mg PO TID [facility] Last Admin: 11/03/23 21:22 Dose: 100 mg Clonazepam (Clonazepam 1 Mg Tablet) 1 mg PO BID [facility] Last Admin: 11/03/23 21:22 Dose: 1 mg Clonidine HCl (Clonidine Hcl 0.1 Mg Tablet) 0.1 mg PO Q4H PRN; Protocol PRN Reason: moderate anxiety Last Admin: 10/15/23 12:32 Dose: 0.1 mg Docusate Sodium (Docusate Sodium 100 Mg Capsule) 100 mg PO DAILY PRN PRN Reason: Constipation Hydroxyzine HCl (Hydroxyzine Hcl 25 Mg Tablet) 25 mg PO BID PRN PRN Reason: itch Last Admin: 10/17/23 20:52 Dose: 25 mg Ibuprofen (Ibuprofen 800 Mg Tablet) 800 mg PO Q8H PRN PRN Reason: toothache Last Admin: 11/03/23 16:08 Dose: 800 mg Loperamide HCl (Loperamide Hcl 2 Mg Capsule) 2 mg PO TID [facility] Last Admin: 11/03/23 21:22 Dose: 2 mg Magnesium Hydroxide (Milk Of Magnesia 30 Ml Oral.Susp) 30 ml PO DAILY PRN PRN Reason: Constipation Melatonin (Melatonin 3 Mg Tablet) 6 mg PO BEDTIME PRN PRN Reason: Insomnia Methadone HCl (Methadone Hcl 20 Mg/2 Ml Oral.Conc) 40 mg PO DAILY [facility] Last Admin: 11/03/23 08:49 Dose: 40 mg Mirtazapine (Mirtazapine 30 Mg Tablet) 30 mg PO BEDTIME [facility] Last Admin: 11/03/23 21:22 Dose: 30 mg Multi-Ingred Cream/Lotion/Oil/Oint (Mineral Oil/Petrolatum,White 106 Gm Tube) 1 appl TOPICAL TID [facility]; Protocol Last Admin: 11/03/23 21:22 Dose: Not Given Nicotine (Nicotine 21 Mg Patch.Td24) 21 mg TRANSDERMA DAILY PRN PRN Reason: nicotine craving Nicotine Polacrilex (Nicotine Polacrilex 2 Mg Gum) 4 mg BUCCAL Q2H PRN PRN Reason: Nicotine Cravings Omeprazole (Omeprazole 20 Mg Capsule.Dr) 20 mg PO DAILY@0630 [facility] Last Admin: 11/03/23 08:47 Dose: 20 mg Rivaroxaban (Rivaroxaban 20 Mg Tablet) 20 mg PO DAILY@1800 [facility] Last Admin: 11/03/23 17:36 Dose: 20 mg Trazodone HCl (Trazodone Hcl 50 Mg Tablet) 50 mg PO BEDTIME MRX1 PRN PRN Reason: Insomnia Last Admin: 11/03/23 21:22 Dose: 50 mg Allergies Allergies Allergy/AdvReac Type Severity Reaction Status Date / Time haloperidol [From Haldol] AdvReac see note Verified 10/09/23 10:18 Assessment & Plan Assessment & Plan (1) MDD (major depressive disorder), recurrent, severe, with psychosis: Status: Acute Code(s): F33.3 - Major depressive disorder, recurrent, severe with psychotic symptoms (2) Post traumatic stress disorder (PTSD): Status: Acute Code(s): F43.10 - Post-traumatic stress disorder, unspecified (3) Opioid use disorder: Status: Acute Code(s): F11.90 - Opioid use, unspecified, uncomplicated (4) Cocaine use disorder: Status: Acute Code(s): F14.10 - Cocaine abuse, uncomplicated (5) Crohn's disease: Status: Acute Code(s): K50.90 - Crohn's disease, unspecified, without complications (6) Colostomy in place: Status: Acute Code(s): Z93.3 - Colostomy status (7) Ileostomy in place: Status: Acute Code(s): Z93.2 - Ileostomy status Plan Patient is a 48-year-old male with history of depression, opioid/cocaine abuse, Crohn's disease large bowel obstruction due to sigmoid stricture s/p colostomy, multiple psychiatric hospitalizations who presented to the ED for intentional drug overdose. Patient was found unresponsive on the back porch of a stranger's house after having injected cocaine/heroin into his neck. Patient was given Narcan and brought to the hospital. Patient reports that he intentionally overdosed in a suicide attempt following relational strife with his and being kicked out of the house. He was medically admitted and treated for rhabdomyolysis. Patient medically cleared and presents to for psychiatric admission. Patient reports that up until about 5 days ago he was doing well, good mood, taking his medications regularly and remain sober. Patient got into an argument with his , the details of which he did not disclose, and got kicked out of the house. Patient said that this triggered strong emotional response and he relapsed for the past 5 days; with continued depression and falling into despair patient got suicidal and intentionally overdosed on heroin cocaine. Patient remains depressed with intermittent suicidality present; he asks to get on methadone which he was on years ago, saying he needs this initially to help him stay sober and will get off it later on. He is amenable to medication adjustments, increasing antidepressants. Formulation/clinical reasoning: Will continue home medication; patient asking to be started on methadone which he has been on in the past to help him remain sober Continues to have SI though seems mostly related to being discharged to homelessness Will hold off increasing antidepressants for now since patient was on these doses for quite awhile, doing well hospital course: 10/12 Patient more open today. Shares more history. Says his girlfriend from cancer May 06; at that time he was hospitalized. He was doing better for while but got depressed again and was psychiatrically hospitalized at [facility] early this September. When he was discharged she went back to his female friend's house where he had been living in [place] but when he got there she told him he had a move out with little explanation. He said that is when he relapsed once on the street. Patient said because of the [facility] hospitalization he missed his surgical appointment to have his colostomy reversed. His worry is that if he is discharged back to the street, he will again relapse and again miss this important surgery. Patient says suicidality comes and goes but increases when he thinks of being homeless. -patient complained of some discomfort an anal region which resolved on its own after a shower 10/13 still depressed but slowly improving. Agrees to behavioral activation and push himself to attend groups. Increased mirtazapine to 15 mg which he agrees can be increased further if needed. Increasing methadone to 30 mg which he feels should be sufficient for staying sober. 10/17 increase Remeron to 30 mg; has outpatient appointment with surgical team WednesdayOctober 21 which he wants to attend. 10/18 patient remains depressed but says he stable; no SI and future oriented. He continues to want to discharge Wednesday to go to pre surgery appointment. Agrees to switching Wellbutrin to immediate release given poor absorption in the colon -team working on discharge planning in finding some housing until patient can get surgery. 10/19 patient depressed, but still feels stable, safe and wants to go to appointment on Wednesday, hopeful of getting some type of housing but saying he will take his chances if not. Hoping that immediate release Wellbutrin can make a difference; consider increasing it to t.i.d. 10/20 Patient tells marketing underwriter he wants to discharge tomorrow to his appointment. However also in the morning, he told a nurse that he plans to overdose after his appointment. Director Of Food And Nutrition returned later in the day to discuss this with patient who said that he was feeling upset and angry this morning and did say that however those feelings are gone now and he just wants to go to his pre-surgical appointment; he says that if they are not able to admit him for surgery at this appointment, he will just go and get a hotel until surgery is ready, saying he has enough money. Director Of Food And Nutrition came back again to discuss this further and patient said something to the effect of okay let me be open... There is a fight in my head whether to do something stupid or not... He goes on to say that he is worried that once discharged, he will cave in, use, get very angry at himself and intentionally overdose. He says I know depression will always be there... Sometimes I can control it... Patient says he does not want to , and very much wants surgery but he is currently worried about his ability to remain safe. He agrees that if he were able to get into a medical respite that would make a tremendous difference as he would be in a structured environment. 10/21 same presentation; continue current treatment plan Director Of Food And Nutrition and social media editor communicating with [facility] regarding dispo; rescheduled pre-surgical appointment -marketing underwriter agrees that patient wants to be safe and wants to get surgery; however given his ostomy, he has not been digesting antidepressant medication, leaving his depression poorly treated; his medication was recently switched to immediate release to help with absorption and hopefully to help with depression. It is marketing underwriter's opinion that for now, it is in patient's best interest to remain on the unit to help establish a more supportive disposition. Although patient very much does not want to miss his appointment this Wednesday, he is amenable to staying longer and getting the appointment rescheduled for the same reason. 10/24 Patient remains depressed but overall doing better in the sense that suicidality has resolved he is future oriented. He is focused on keeping himself stable and safe so he can go to his pre surgery appointment and then get surgery for reversal of colostomy. He does not think that the Wellbutrin immediate release has made any difference in his mood but patient remains pushing himself to be engaged in his grateful for help received. Discussed disposition options and patient amenable to respite; he will also continue to follow up with [facility]. Patient does have a friend in the community who might have a place that he can stay and is looking into that as well. Director Of Food And Nutrition discussed case with nurse who knows him from past admissions at other hospital where he got ECT; this is a consideration given that his depression remains untreated due to poor absorption of antidepressants. 10/25 remains depressed but no SI; discussed history of ECT and although it was helpful, patient had bad experience with 1 of the trials and does not want ECT. Agrees to increase in Wellbutrin 10/26 hopefully increased Wellbutrin to 150 mg t.i.d. may be having some effect 10/30/2023: No changes to current plan 10/31/2023: Anbesol and amoxicillin for tooth/gum infection 10/31 Patient remains doing overall little better and depression remains lessened. Discussed ostomy bag and how Ostomy bag is anatomically located in a difficult place for patient to apply himself. Director Of Food And Nutrition discussed with wound care nurse felt it might be possible and attempted to teach patient; she felt that he was able to get much of a done however it was still anatomically located too far for him to fully do by himself and he remains needing assistance. She said she will continue working with him, practicing with him. -Social work setting up application to [facility] respite; marketing underwriter calling medical respite -Over the weekend patient had dental tooth pain; was started on antibiotic by covering provider 11/01 patient remained psychiatrically stable with improved mood; safe, no SI and future oriented. Patient continues to practice working on his ostomy with wound nurse. -marketing underwriter discussed case with medical respite who agrees to look again at his application; however they informed that there are currently no beds available, nor will there be any time soon. Today patient decided he was not going to go to [facility] respite and refused phone appointment with them. Patient said it was only for 6 days anyway so he did not want to bother (even though marketing underwriter explains the 6 days be enough time for him to get to his appointment). Patient also refused to go to [facility], medical rehab establishment. He said he had been there before and it is a dump... Director Of Food And Nutrition discussed that while that may be true, it is temporary and can not be worse than a senior living since they do actually have medical staff assisting with medical issues. Patient declined. Instead he said he will just continue to look for his own place, even if that has a senior living and that he will manage on his own; while he expresses gratitude for help received, he said he does not need marketing underwriter/social work's help further and this area. He continues to call his friend asking if he can stay there. Patient has full capacity to make medical decisions for himself; although he has chronic depression and passive SI, he denies any actual SI and is not imminent risk for harm to self or others. He remains future oriented and very much wants to get surgery. Director Of Food And Nutrition and team will continue to explore options with the few days remaining of this admission. However, as patient has refused both respite and medical rehab facility and other offers for dispo help, marketing underwriter understands that patient is able to make his own decisions in this area. 11/02 Patient again expressed gratitude for help received; he says he is continuing to apply his friend Maday to get her to let him stay with her. Says they used to be romantically involved but his substance abuse room in the relationship. She remains good friends with him in supportive but she is hesitant to let him stay with her because she does not want to risk him using in her apartment. He says he will continue to hope she will given; she said she would think about it. Director Of Food And Nutrition and team pursued another option however that to proved unavailable. Patient remains optimistic that he will stay sober while waiting for surgery. -Left molar continues to hurt; marketing underwriter will place consult Plan: CV Q 15 minute checks Continue Bupropion Immediate Release 150 mg T.i.d.; due to ostomy, long-acting not absorbed DC bupropion HCl XL 300 mg daily plus bupropion HCl XL 150 mg daily Increased to methadone 40 mg daily; patient asked for increase due to cravings Continue chlorpromazine 100 mg PO TID Continue clonazepam 2 mg PO BID Continue mirtazapine 30mg PO BEDTIME; may titrate further for continued depression Added clonidine p.r.n. for anxiety melatonin 3 mg PO BEDTIME PRN Continue loperamide 2 mg PO TID Continue Xarelto 20 mg PO DAILY@1800 Continue lansoprazole 30 mg Capsule,Delayed Release(Dr/Ec) daily Continue methenamine mandelate 1 g PO QID Patient educated on: diagnosis, medication risk/benefits, substance abuse and medical condition [facility] surgeon Dr. Myla Shi appointment set for October 21 10:45 regarding ostomy: both ileostomy and colostomy in place. Both are viable appearing. Can change ileostomy appliance every 3-4 days and as needed. Empty appliance Q shift and as needed. Can keep the colostomy covered with dry dressing such as allevyn pads or nonwoven sponge, as it is being proximally diverted. He has a very large parastomal hernia at the ileostomy site which is soft and reducible, no current intervention needed. consulted the varnish melter helperFalguni to assist with education and appliance changes. Patient educated on: diagnosis and medical condition Informed Consent: understands Reason for continued inpatient stay Substantial Risk for: stable for discharge Time Spent With Patient Time: Total time managing care of this patient today ____ minutes.
[2023-11-04 08:00] VITALS: BP 107/70; PULSE 89; RESP 16; TEMP 36.5; O2SAT 95
[2023-11-04] MEDS: methADONE HCl 20 MG/2 ML ORAL.CONC 40 MG PO (12:00)
[2023-11-04] MEDS: chlorproMAZINE HCl 100 MG TABLET PO ×3 (12:01→20:06)
[2023-11-04] MEDS: Loperamide HCl 2 MG CAPSULE PO ×3 (12:01→20:06)
[2023-11-04] MEDS: Amoxicillin/Potassium Clav 875 MG TABLET PO ×2 (12:01→20:06)
[2023-11-04] MEDS: Ibuprofen 800 MG TABLET PO (12:02)
[2023-11-04] MEDS: clonazePAM 1 MG TABLET PO ×2 (12:02→20:06)
[2023-11-04] MEDS: buPROPion HCL 75 MG TABLET 150 MG PO ×3 (12:02→17:48)
--- NOTE | 2023-11-04 12:56 | PM.EVENT ---
Event Note Date of Service: 11/04/23 Event Note: Hospital medicine team consulted to evaluate for left lower molar pain. Patient is on Augmentin. Advised saline gargles after every meal. Tramadol prn. Will need follow up with dentist. Consider imaging im case of worsening. Will sign off. Time Spent With Patient Time: Total time managing care of this patient today ____ minutes.
[2023-11-04] MEDS: Acetaminophen 325 MG TABLET 650 MG PO (15:14)
[2023-11-04] MEDS: Rivaroxaban 20 MG TABLET PO (17:49)
[2023-11-04 20:00] VITALS: BP 98/54; PULSE 76; RESP 16; TEMP 36.6; O2SAT 92
[2023-11-04] MEDS: Mirtazapine 30 MG TABLET PO (20:06)
[2023-11-04] MEDS: traMADoL HCL 50 MG TABLET 25 MG PO (20:29)
--- NOTE | 2023-11-05 00:02 | HO.PSYCHPN ---
Subjective Subjective Date of Service: 11/04/23 Reason For Visit: opiate overdose with suicidal intent Interim History: Late entry note for pt seen on 11/03; discussed with team Remains calm, overall better mood, trying to stay optimistic. Again discussed dispo planning. Mental Status Exam Mental Status Exam Narrative: Pt is alert and oriented; behavior is cooperative, calm; patient is not in distress; dressed in hospital gown, overall adequately groomed; mood is described as ok and affect congruent, brighter; eye contact appropriate; Speech is normal volume, rate; psychomotor retardation present; thought process is organized and goal directed; Thought content is on medical treatment, psychosocial stressors; otherwise pertinent to relevant topics and without any delusional content, paranoid ideations or grandiosity; no SI; no HI. Denies AVH. There is no evidence of perceptual disturbance. Patients insight and judgment fair. Diagnostics Vital Signs (24Hr): Vital Signs - 24 hr 11/04/23 08:00 11/04/23 20:00 Temperature 97.7 F 97.9 F Pulse Rate 89 76 Respiratory Rate 16 16 Blood Pressure 107/70 98/54 L Pulse Oximetry 95 92 Oxygen Delivery Method Room Air Room Air BMI result Body Mass Index 26.9 Medications Medications Current Medications Acetaminophen (Acetaminophen 325 Mg Tablet) 650 mg PO Q6H PRN PRN Reason: Headache/Pain Mild Scale (1-3) Last Admin: 11/04/23 15:14 Dose: 650 mg Al Hydroxide/Mg Hydroxide (Magnesium Hydrox/Alum Hydrox 30 Ml Oral.Susp) 30 ml PO Q6H PRN PRN Reason: Heartburn/Nausea Last Admin: 10/28/23 14:04 Dose: 30 ml Amoxicillin/Clavulanate Potassium (Amoxicillin/Potassium Clav 875 Mg Tablet) 875 mg PO BID [facility] Stop: 11/07/23 12:29 Last Admin: 11/04/23 20:06 Dose: 875 mg Benzocaine (Benzocaine 20 % Oral Gel 9 Gm Tube) 1 appl MUCOUS MEM QID PRN; Protocol PRN Reason: toothache Last Admin: 11/02/23 15:34 Dose: 1 appl Benzonatate (Benzonatate 100 Mg Capsule) 100 mg PO TID PRN PRN Reason: Cough Bupropion HCl (Bupropion Hcl 75 Mg Tablet) 150 mg PO TID@0900,1300,1700 [facility] Last Admin: 11/04/23 17:48 Dose: 150 mg Chlorpromazine HCl (Chlorpromazine Hcl 100 Mg Tablet) 100 mg PO TID [facility] Last Admin: 11/04/23 20:06 Dose: 100 mg Clonazepam (Clonazepam 1 Mg Tablet) 1 mg PO BID [facility] Last Admin: 11/04/23 20:06 Dose: 1 mg Clonidine HCl (Clonidine Hcl 0.1 Mg Tablet) 0.1 mg PO Q4H PRN; Protocol PRN Reason: moderate anxiety Last Admin: 10/15/23 12:32 Dose: 0.1 mg Docusate Sodium (Docusate Sodium 100 Mg Capsule) 100 mg PO DAILY PRN PRN Reason: Constipation Hydroxyzine HCl (Hydroxyzine Hcl 25 Mg Tablet) 25 mg PO BID PRN PRN Reason: itch Last Admin: 10/17/23 20:52 Dose: 25 mg Ibuprofen (Ibuprofen 800 Mg Tablet) 800 mg PO Q8H PRN PRN Reason: toothache Last Admin: 11/04/23 12:02 Dose: 800 mg Loperamide HCl (Loperamide Hcl 2 Mg Capsule) 2 mg PO TID [facility] Last Admin: 11/04/23 20:06 Dose: 2 mg Magnesium Hydroxide (Milk Of Magnesia 30 Ml Oral.Susp) 30 ml PO DAILY PRN PRN Reason: Constipation Melatonin (Melatonin 3 Mg Tablet) 6 mg PO BEDTIME PRN PRN Reason: Insomnia Methadone HCl (Methadone Hcl 20 Mg/2 Ml Oral.Conc) 40 mg PO DAILY [facility] Last Admin: 11/04/23 12:00 Dose: 40 mg Mirtazapine (Mirtazapine 30 Mg Tablet) 30 mg PO BEDTIME [facility] Last Admin: 11/04/23 20:06 Dose: 30 mg Multi-Ingred Cream/Lotion/Oil/Oint (Mineral Oil/Petrolatum,White 106 Gm Tube) 1 appl TOPICAL TID [facility]; Protocol Last Admin: 11/04/23 21:41 Dose: Not Given Nicotine (Nicotine 21 Mg Patch.Td24) 21 mg TRANSDERMA DAILY PRN PRN Reason: nicotine craving Nicotine Polacrilex (Nicotine Polacrilex 2 Mg Gum) 4 mg BUCCAL Q2H PRN PRN Reason: Nicotine Cravings Omeprazole (Omeprazole 20 Mg Capsule.Dr) 20 mg PO DAILY@0630 [facility] Last Admin: 11/04/23 07:10 Dose: Not Given Rivaroxaban (Rivaroxaban 20 Mg Tablet) 20 mg PO DAILY@1800 [facility] Last Admin: 11/04/23 17:49 Dose: 20 mg Tramadol HCl (Tramadol Hcl 50 Mg Tablet) 25 mg PO Q6H PRN PRN Reason: Pain, Moderate(Pain Scale 4-6) Last Admin: 11/04/23 20:29 Dose: 25 mg Trazodone HCl (Trazodone Hcl 50 Mg Tablet) 50 mg PO BEDTIME MRX1 PRN PRN Reason: Insomnia Last Admin: 11/03/23 21:22 Dose: 50 mg Allergies Allergies Allergy/AdvReac Type Severity Reaction Status Date / Time haloperidol [From Haldol] AdvReac see note Verified 10/09/23 10:18 Assessment & Plan Assessment & Plan (1) MDD (major depressive disorder), recurrent, severe, with psychosis: Status: Acute Code(s): F33.3 - Major depressive disorder, recurrent, severe with psychotic symptoms (2) Post traumatic stress disorder (PTSD): Status: Acute Code(s): F43.10 - Post-traumatic stress disorder, unspecified (3) Opioid use disorder: Status: Acute Code(s): F11.90 - Opioid use, unspecified, uncomplicated (4) Cocaine use disorder: Status: Acute Code(s): F14.10 - Cocaine abuse, uncomplicated (5) Crohn's disease: Status: Acute Code(s): K50.90 - Crohn's disease, unspecified, without complications (6) Colostomy in place: Status: Acute Code(s): Z93.3 - Colostomy status (7) Ileostomy in place: Status: Acute Code(s): Z93.2 - Ileostomy status Plan Patient is a 48-year-old male with history of depression, opioid/cocaine abuse, Crohn's disease large bowel obstruction due to sigmoid stricture s/p colostomy, multiple psychiatric hospitalizations who presented to the ED for intentional drug overdose. Patient was found unresponsive on the back porch of a stranger's house after having injected cocaine/heroin into his neck. Patient was given Narcan and brought to the hospital. Patient reports that he intentionally overdosed in a suicide attempt following relational strife with his and being kicked out of the house. He was medically admitted and treated for rhabdomyolysis. Patient medically cleared and presents to for psychiatric admission. Patient reports that up until about 5 days ago he was doing well, good mood, taking his medications regularly and remain sober. Patient got into an argument with his , the details of which he did not disclose, and got kicked out of the house. Patient said that this triggered strong emotional response and he relapsed for the past 5 days; with continued depression and falling into despair patient got suicidal and intentionally overdosed on heroin cocaine. Patient remains depressed with intermittent suicidality present; he asks to get on methadone which he was on years ago, saying he needs this initially to help him stay sober and will get off it later on. He is amenable to medication adjustments, increasing antidepressants. Formulation/clinical reasoning: Will continue home medication; patient asking to be started on methadone which he has been on in the past to help him remain sober Continues to have SI though seems mostly related to being discharged to homelessness Will hold off increasing antidepressants for now since patient was on these doses for quite awhile, doing well hospital course: 10/12 Patient more open today. Shares more history. Says his girlfriend from cancer May 06; at that time he was hospitalized. He was doing better for while but got depressed again and was psychiatrically hospitalized at [facility] early this September. When he was discharged she went back to his female friend's house where he had been living in [place] but when he got there she told him he had a move out with little explanation. He said that is when he relapsed once on the street. Patient said because of the [facility] hospitalization he missed his surgical appointment to have his colostomy reversed. His worry is that if he is discharged back to the street, he will again relapse and again miss this important surgery. Patient says suicidality comes and goes but increases when he thinks of being homeless. -patient complained of some discomfort an anal region which resolved on its own after a shower 10/13 still depressed but slowly improving. Agrees to behavioral activation and push himself to attend groups. Increased mirtazapine to 15 mg which he agrees can be increased further if needed. Increasing methadone to 30 mg which he feels should be sufficient for staying sober. 10/17 increase Remeron to 30 mg; has outpatient appointment with surgical team WednesdayOctober 21 which he wants to attend. 10/18 patient remains depressed but says he stable; no SI and future oriented. He continues to want to discharge Wednesday to go to pre surgery appointment. Agrees to switching Wellbutrin to immediate release given poor absorption in the colon -team working on discharge planning in finding some housing until patient can get surgery. 10/19 patient depressed, but still feels stable, safe and wants to go to appointment on Wednesday, hopeful of getting some type of housing but saying he will take his chances if not. Hoping that immediate release Wellbutrin can make a difference; consider increasing it to t.i.d. 10/20 Patient tells news writer he wants to discharge tomorrow to his appointment. However also in the morning, he told a nurse that he plans to overdose after his appointment. [employer] Supervisor returned later in the day to discuss this with patient who said that he was feeling upset and angry this morning and did say that however those feelings are gone now and he just wants to go to his pre-surgical appointment; he says that if they are not able to admit him for surgery at this appointment, he will just go and get a hotel until surgery is ready, saying he has enough money. [employer] Supervisor came back again to discuss this further and patient said something to the effect of okay let me be open... There is a fight in my head whether to do something stupid or not... He goes on to say that he is worried that once discharged, he will cave in, use, get very angry at himself and intentionally overdose. He says I know depression will always be there... Sometimes I can control it... Patient says he does not want to , and very much wants surgery but he is currently worried about his ability to remain safe. He agrees that if he were able to get into a medical respite that would make a tremendous difference as he would be in a structured environment. 10/21 same presentation; continue current treatment plan [employer] Supervisor and psychiatric social worker supervisor communicating with [facility] regarding dispo; rescheduled pre-surgical appointment -news writer agrees that patient wants to be safe and wants to get surgery; however given his ostomy, he has not been digesting antidepressant medication, leaving his depression poorly treated; his medication was recently switched to immediate release to help with absorption and hopefully to help with depression. It is news writer's opinion that for now, it is in patient's best interest to remain on the unit to help establish a more supportive disposition. Although patient very much does not want to miss his appointment this Wednesday, he is amenable to staying longer and getting the appointment rescheduled for the same reason. 10/24 Patient remains depressed but overall doing better in the sense that suicidality has resolved he is future oriented. He is focused on keeping himself stable and safe so he can go to his pre surgery appointment and then get surgery for reversal of colostomy. He does not think that the Wellbutrin immediate release has made any difference in his mood but patient remains pushing himself to be engaged in his grateful for help received. Discussed disposition options and patient amenable to respite; he will also continue to follow up with [facility]. Patient does have a friend in the community who might have a place that he can stay and is looking into that as well. [employer] discussed case with nurse who knows him from past admissions at other hospital where he got ECT; this is a consideration given that his depression remains untreated due to poor absorption of antidepressants. 10/25 remains depressed but no SI; discussed history of ECT and although it was helpful, patient had bad experience with 1 of the trials and does not want ECT. Agrees to increase in Wellbutrin 10/26 hopefully increased Wellbutrin to 150 mg t.i.d. may be having some effect 10/30/2023: No changes to current plan 10/31/2023: Anbesol and amoxicillin for tooth/gum infection 10/31 Patient remains doing overall little better and depression remains lessened. Discussed ostomy bag and how Ostomy bag is anatomically located in a difficult place for patient to apply himself. [employer] Supervisor discussed with wound care nurse felt it might be possible and attempted to teach patient; she felt that he was able to get much of a done however it was still anatomically located too far for him to fully do by himself and he remains needing assistance. She said she will continue working with him, practicing with him. -Social work setting up application to [facility] respite; news writer calling medical respite -Over the weekend patient had dental tooth pain; was started on antibiotic by covering provider 11/01 patient remained psychiatrically stable with improved mood; safe, no SI and future oriented. Patient continues to practice working on his ostomy with wound nurse. -news writer discussed case with medical respite who agrees to look again at his application; however they informed that there are currently no beds available, nor will there be any time soon. Today patient decided he was not going to go to [facility] respite and refused phone appointment with them. Patient said it was only for 6 days anyway so he did not want to bother (even though news writer explains the 6 days be enough time for him to get to his appointment). Patient also refused to go to [facility], medical rehab establishment. He said he had been there before and it is a dump... [employer] Super[employer] discussed that while that may be true, it is temporary and can not be worse than a jail since they do actually have medical staff assisting with medical issues. Patient declined. Instead he said he will just continue to look for his own place, even if that has a jail and that he will manage on his own; while he expresses gratitude for help received, he said he does not need news writer/social work's help further and this area. He continues to call his friend asking if he can stay there. Patient has full capacity to make medical decisions for himself; although he has chronic depression and passive SI, he denies any actual SI and is not imminent risk for harm to self or others. He remains future oriented and very much wants to get surgery. [employer] Supervisor and team will continue to explore options with the few days remaining of this admission. However, as patient has refused both respite and medical rehab facility and other offers for dispo help, news writer understands that patient is able to make his own decisions in this area. 11/02 Patient again expressed gratitude for help received; he says he is continuing to apply his friend Maday to get her to let him stay with her. Says they used to be romantically involved but his substance abuse room in the relationship. She remains good friends with him in supportive but she is hesitant to let him stay with her because she does not want to risk him using in her apartment. He says he will continue to hope she will given; she said she would think about it. [employer] Supervisor and team pursued another option however that to proved unavailable. Patient remains optimistic that he will stay sober while waiting for surgery. -Left molar continues to hurt; news writer will place consult 11/03 continue current treatment plan; says tooth pain is a little better that hospitalist came to see him; reviewed findings; says tramadol helps Plan: CV Q 15 minute checks Continue Bupropion Immediate Release 150 mg T.i.d.; due to ostomy, long-acting not absorbed Plan: CV Q 15 minute checks Continue Bupropion Immediate Release 150 mg T.i.d.; due to ostomy, long-acting not absorbed DC bupropion HCl XL 300 mg daily plus bupropion HCl XL 150 mg daily Increased to methadone 40 mg daily; patient asked for increase due to cravings Continue chlorpromazine 100 mg PO TID Continue clonazepam 2 mg PO BID Continue mirtazapine 30mg PO BEDTIME; may titrate further for continued depression Added clonidine p.r.n. for anxiety melatonin 3 mg PO BEDTIME PRN Continue loperamide 2 mg PO TID Continue Xarelto 20 mg PO DAILY@1800 Continue lansoprazole 30 mg Capsule,Delayed Release(Dr/Ec) daily Continue methenamine mandelate 1 g PO QID Patient educated on: diagnosis, medication risk/benefits, substance abuse and medical condition [facility] surgeon Dr. Myla Shi appointment set for October 21 10:45 regarding ostomy: both ileostomy and colostomy in place. Both are viable appearing. Can change ileostomy appliance every 3-4 days and as needed. Empty appliance Q shift and as needed. Can keep the colostomy covered with dry dressing such as allevyn pads or nonwoven sponge, as it is being proximally diverted. He has a very large parastomal hernia at the ileostomy site which is soft and reducible, no current intervention needed. consulted the database specialistFalguni to assist with education and appliance changes. Patient educated on: diagnosis, medication risk/benefits and medical condition Informed Consent: understands Reason for continued inpatient stay Substantial Risk for: stable for discharge Time Spent With Patient Time: Total time managing care of this patient today ____ minutes.
[2023-11-05 08:00] VITALS: BP 103/65; PULSE 73; RESP 20; TEMP 36.8; O2SAT 95
[2023-11-05] MEDS: Omeprazole 20 MG CAPSULE.DR PO (09:22)
[2023-11-05] MEDS: chlorproMAZINE HCl 100 MG TABLET PO ×3 (09:22→21:03)
[2023-11-05] MEDS: Amoxicillin/Potassium Clav 875 MG TABLET PO ×2 (09:22→21:03)
[2023-11-05] MEDS: Loperamide HCl 2 MG CAPSULE PO ×3 (09:22→21:03)
[2023-11-05] MEDS: clonazePAM 1 MG TABLET PO (09:22)
[2023-11-05] MEDS: methADONE HCl 20 MG/2 ML ORAL.CONC 40 MG PO (09:23)
[2023-11-05] MEDS: buPROPion HCL 75 MG TABLET 150 MG PO ×2 (12:16→16:43)
[2023-11-05] MEDS: traMADoL HCL 50 MG TABLET 25 MG PO ×2 (12:25→21:04)
--- NOTE | 2023-11-05 14:29 | HO.PSYCHPN ---
Subjective Subjective Date of Service: 11/05/23 Reason For Visit: opiate overdose with suicidal intent Mental Status Exam Mental Status Exam Narrative: Pt is alert and oriented; behavior is cooperative, calm, very anxious; patient is not in distress; dressed in hospital gown, overall adequately groomed; mood is described as anxious and affect congruent; eye contact appropriate; Speech is normal volume, rate; psychomotor retardation present; thought process is organized and goal directed; Thought content is on his safety, worries about relapse, thoughts of SI; otherwise pertinent to relevant topics and without any delusional content, paranoid ideations or grandiosity; no HI. Denies AVH. There is no evidence of perceptual disturbance. Patients insight and judgment impaired. Diagnostics Vital Signs (24Hr): Vital Signs - 24 hr 11/04/23 20:00 11/05/23 08:00 Temperature 97.9 F 98.2 F Pulse Rate 76 73 Respiratory Rate 16 20 Blood Pressure 98/54 L 103/65 Pulse Oximetry 92 95 Oxygen Delivery Method Room Air Room Air BMI result Body Mass Index 26.9 Medications Medications Current Medications Acetaminophen (Acetaminophen 325 Mg Tablet) 650 mg PO Q6H PRN PRN Reason: Headache/Pain Mild Scale (1-3) Last Admin: 11/04/23 15:14 Dose: 650 mg Al Hydroxide/Mg Hydroxide (Magnesium Hydrox/Alum Hydrox 30 Ml Oral.Susp) 30 ml PO Q6H PRN PRN Reason: Heartburn/Nausea Last Admin: 10/28/23 14:04 Dose: 30 ml Amoxicillin/Clavulanate Potassium (Amoxicillin/Potassium Clav 875 Mg Tablet) 875 mg PO BID [facility] Stop: 11/07/23 12:29 Last Admin: 11/05/23 09:22 Dose: 875 mg Benzocaine (Benzocaine 20 % Oral Gel 9 Gm Tube) 1 appl MUCOUS MEM QID PRN; Protocol PRN Reason: toothache Last Admin: 11/02/23 15:34 Dose: 1 appl Benzonatate (Benzonatate 100 Mg Capsule) 100 mg PO TID PRN PRN Reason: Cough Bupropion HCl (Bupropion Hcl 75 Mg Tablet) 150 mg PO TID@0900,1300,1700 [facility] Last Admin: 11/05/23 12:16 Dose: 150 mg Chlorpromazine HCl (Chlorpromazine Hcl 100 Mg Tablet) 100 mg PO TID [facility] Last Admin: 11/05/23 14:07 Dose: 100 mg Clonazepam (Clonazepam 0.5 Mg Tablet) 0.5 mg PO BID [facility] Clonidine HCl (Clonidine Hcl 0.1 Mg Tablet) 0.1 mg PO Q4H PRN; Protocol PRN Reason: moderate anxiety Last Admin: 10/15/23 12:32 Dose: 0.1 mg Docusate Sodium (Docusate Sodium 100 Mg Capsule) 100 mg PO DAILY PRN PRN Reason: Constipation Hydroxyzine HCl (Hydroxyzine Hcl 25 Mg Tablet) 25 mg PO BID PRN PRN Reason: itch Last Admin: 10/17/23 20:52 Dose: 25 mg Ibuprofen (Ibuprofen 800 Mg Tablet) 800 mg PO Q8H PRN PRN Reason: toothache Last Admin: 11/04/23 12:02 Dose: 800 mg Loperamide HCl (Loperamide Hcl 2 Mg Capsule) 2 mg PO TID [facility] Last Admin: 11/05/23 14:07 Dose: 2 mg Magnesium Hydroxide (Milk Of Magnesia 30 Ml Oral.Susp) 30 ml PO DAILY PRN PRN Reason: Constipation Melatonin (Melatonin 3 Mg Tablet) 6 mg PO BEDTIME PRN PRN Reason: Insomnia Methadone HCl (Methadone Hcl 20 Mg/2 Ml Oral.Conc) 40 mg PO DAILY [facility] Last Admin: 11/05/23 09:23 Dose: 40 mg Mirtazapine (Mirtazapine 30 Mg Tablet) 30 mg PO BEDTIME [facility] Last Admin: 11/04/23 20:06 Dose: 30 mg Multi-Ingred Cream/Lotion/Oil/Oint (Mineral Oil/Petrolatum,White 106 Gm Tube) 1 appl TOPICAL TID [facility]; Protocol Last Admin: 11/05/23 14:08 Dose: Not Given Nicotine (Nicotine 21 Mg Patch.Td24) 21 mg TRANSDERMA DAILY PRN PRN Reason: nicotine craving Nicotine Polacrilex (Nicotine Polacrilex 2 Mg Gum) 4 mg BUCCAL Q2H PRN PRN Reason: Nicotine Cravings Omeprazole (Omeprazole 20 Mg Capsule.Dr) 20 mg PO DAILY@0630 [facility] Last Admin: 11/05/23 09:22 Dose: 20 mg Rivaroxaban (Rivaroxaban 20 Mg Tablet) 20 mg PO DAILY@1800 [facility] Last Admin: 11/04/23 17:49 Dose: 20 mg Tramadol HCl (Tramadol Hcl 50 Mg Tablet) 25 mg PO Q6H PRN PRN Reason: Pain, Moderate(Pain Scale 4-6) Last Admin: 11/05/23 12:25 Dose: 25 mg Trazodone HCl (Trazodone Hcl 50 Mg Tablet) 50 mg PO BEDTIME MRX1 PRN PRN Reason: Insomnia Last Admin: 11/03/23 21:22 Dose: 50 mg Allergies Allergies Allergy/AdvReac Type Severity Reaction Status Date / Time haloperidol [From Haldol] AdvReac see note Verified 10/09/23 10:18 Assessment & Plan Assessment & Plan (1) MDD (major depressive disorder), recurrent, severe, with psychosis: Status: Acute Code(s): F33.3 - Major depressive disorder, recurrent, severe with psychotic symptoms (2) Post traumatic stress disorder (PTSD): Status: Acute Code(s): F43.10 - Post-traumatic stress disorder, unspecified (3) Opioid use disorder: Status: Acute Code(s): F11.90 - Opioid use, unspecified, uncomplicated (4) Cocaine use disorder: Status: Acute Code(s): F14.10 - Cocaine abuse, uncomplicated (5) Crohn's disease: Status: Acute Code(s): K50.90 - Crohn's disease, unspecified, without complications (6) Colostomy in place: Status: Acute Code(s): Z93.3 - Colostomy status (7) Ileostomy in place: Status: Acute Code(s): Z93.2 - Ileostomy status Plan Patient is a 48-year-old male with history of depression, opioid/cocaine abuse, Crohn's disease large bowel obstruction due to sigmoid stricture s/p colostomy, multiple psychiatric hospitalizations who presented to the ED for intentional drug overdose. Patient was found unresponsive on the back porch of a stranger's house after having injected cocaine/heroin into his neck. Patient was given Narcan and brought to the hospital. Patient reports that he intentionally overdosed in a suicide attempt following relational strife with his and being kicked out of the house. He was medically admitted and treated for rhabdomyolysis. Patient medically cleared and presents to for psychiatric admission. Patient reports that up until about 5 days ago he was doing well, good mood, taking his medications regularly and remain sober. Patient got into an argument with his , the details of which he did not disclose, and got kicked out of the house. Patient said that this triggered strong emotional response and he relapsed for the past 5 days; with continued depression and falling into despair patient got suicidal and intentionally overdosed on heroin cocaine. Patient remains depressed with intermittent suicidality present; he asks to get on methadone which he was on years ago, saying he needs this initially to help him stay sober and will get off it later on. He is amenable to medication adjustments, increasing antidepressants. Formulation/clinical reasoning: Will continue home medication; patient asking to be started on methadone which he has been on in the past to help him remain sober Continues to have SI though seems mostly related to being discharged to homelessness Will hold off increasing antidepressants for now since patient was on these doses for quite awhile, doing well hospital course: 10/12 Patient more open today. Shares more history. Says his girlfriend from cancer May 06; at that time he was hospitalized. He was doing better for while but got depressed again and was psychiatrically hospitalized at [facility] early this September. When he was discharged she went back to his female friend's house where he had been living in [place] but when he got there she told him he had a move out with little explanation. He said that is when he relapsed once on the street. Patient said because of the [facility] hospitalization he missed his surgical appointment to have his colostomy reversed. His worry is that if he is discharged back to the street, he will again relapse and again miss this important surgery. Patient says suicidality comes and goes but increases when he thinks of being homeless. -patient complained of some discomfort an anal region which resolved on its own after a shower 10/13 still depressed but slowly improving. Agrees to behavioral activation and push himself to attend groups. Increased mirtazapine to 15 mg which he agrees can be increased further if needed. Increasing methadone to 30 mg which he feels should be sufficient for staying sober. 10/17 increase Remeron to 30 mg; has outpatient appointment with surgical team WednesdayOctober 21 which he wants to attend. 10/18 patient remains depressed but says he stable; no SI and future oriented. He continues to want to discharge Wednesday to go to pre surgery appointment. Agrees to switching Wellbutrin to immediate release given poor absorption in the colon -team working on discharge planning in finding some housing until patient can get surgery. 10/19 patient depressed, but still feels stable, safe and wants to go to appointment on Wednesday, hopeful of getting some type of housing but saying he will take his chances if not. Hoping that immediate release Wellbutrin can make a difference; consider increasing it to t.i.d. 10/20 Patient tells show card writer he wants to discharge tomorrow to his appointment. However also in the morning, he told a nurse that he plans to overdose after his appointment. Environmental Studies Faculty Member returned later in the day to discuss this with patient who said that he was feeling upset and angry this morning and did say that however those feelings are gone now and he just wants to go to his pre-surgical appointment; he says that if they are not able to admit him for surgery at this appointment, he will just go and get a hotel until surgery is ready, saying he has enough money. Environmental Studies Faculty Member came back again to discuss this further and patient said something to the effect of okay let me be open... There is a fight in my head whether to do something stupid or not... He goes on to say that he is worried that once discharged, he will cave in, use, get very angry at himself and intentionally overdose. He says I know depression will always be there... Sometimes I can control it... Patient says he does not want to , and very much wants surgery but he is currently worried about his ability to remain safe. He agrees that if he were able to get into a medical respite that would make a tremendous difference as he would be in a structured environment. 10/21 same presentation; continue current treatment plan Environmental Studies Faculty Member and social worker clinical communicating with [facility] regarding dispo; rescheduled pre-surgical appointment -show card writer agrees that patient wants to be safe and wants to get surgery; however given his ostomy, he has not been digesting antidepressant medication, leaving his depression poorly treated; his medication was recently switched to immediate release to help with absorption and hopefully to help with depression. It is show card writer's opinion that for now, it is in patient's best interest to remain on the unit to help establish a more supportive disposition. Although patient very much does not want to miss his appointment this Wednesday, he is amenable to staying longer and getting the appointment rescheduled for the same reason. 10/24 Patient remains depressed but overall doing better in the sense that suicidality has resolved he is future oriented. He is focused on keeping himself stable and safe so he can go to his pre surgery appointment and then get surgery for reversal of colostomy. He does not think that the Wellbutrin immediate release has made any difference in his mood but patient remains pushing himself to be engaged in his grateful for help received. Discussed disposition options and patient amenable to respite; he will also continue to follow up with [facility]. Patient does have a friend in the community who might have a place that he can stay and is looking into that as well. Environmental Studies Faculty Member discussed case with nurse who knows him from past admissions at other hospital where he got ECT; this is a consideration given that his depression remains untreated due to poor absorption of antidepressants. 10/25 remains depressed but no SI; discussed history of ECT and although it was helpful, patient had bad experience with 1 of the trials and does not want ECT. Agrees to increase in Wellbutrin 10/26 hopefully increased Wellbutrin to 150 mg t.i.d. may be having some effect 10/30/2023: No changes to current plan 10/31/2023: Anbesol and amoxicillin for tooth/gum infection 10/31 Patient remains doing overall little better and depression remains lessened. Discussed ostomy bag and how Ostomy bag is anatomically located in a difficult place for patient to apply himself. Environmental Studies Faculty Member discussed with wound care nurse felt it might be possible and attempted to teach patient; she felt that he was able to get much of a done however it was still anatomically located too far for him to fully do by himself and he remains needing assistance. She said she will continue working with him, practicing with him. -Social work setting up application to [facility] respite; show card writer calling medical respite -Over the weekend patient had dental tooth pain; was started on antibiotic by covering provider 11/01 patient remained psychiatrically stable with improved mood; safe, no SI and future oriented. Patient continues to practice working on his ostomy with wound nurse. -show card writer discussed case with medical respite who agrees to look again at his application; however they informed that there are currently no beds available, nor will there be any time soon. Today patient decided he was not going to go to [facility] respite and refused phone appointment with them. Patient said it was only for 6 days anyway so he did not want to bother (even though show card writer explains the 6 days be enough time for him to get to his appointment). Patient also refused to go to [facility], medical rehab establishment. He said he had been there before and it is a dump... Environmental Studies Faculty Member discussed that while that may be true, it is temporary and can not be worse than a residential since they do actually have medical staff assisting with medical issues. Patient declined. Instead he said he will just continue to look for his own place, even if that has a residential and that he will manage on his own; while he expresses gratitude for help received, he said he does not need show card writer/social work's help further and this area. He continues to call his friend asking if he can stay there. Patient has full capacity to make medical decisions for himself; although he has chronic depression and passive SI, he denies any actual SI and is not imminent risk for harm to self or others. He remains future oriented and very much wants to get surgery. Environmental Studies Faculty Member and team will continue to explore options with the few days remaining of this admission. However, as patient has refused both respite and medical rehab facility and other offers for dispo help, show card writer understands that patient is able to make his own decisions in this area. 11/02 Patient again expressed gratitude for help received; he says he is continuing to apply his friend Maday to get her to let him stay with her. Says they used to be romantically involved but his substance abuse room in the relationship. She remains good friends with him in supportive but she is hesitant to let him stay with her because she does not want to risk him using in her apartment. He says he will continue to hope she will given; she said she would think about it. Environmental Studies Faculty Member and team pursued another option however that to proved unavailable. Patient remains optimistic that he will stay sober while waiting for surgery. -Left molar continues to hurt; show card writer will place consult 11/03 continue current treatment plan; says tooth pain is a little better that hospitalist came to see him; reviewed findings; says tramadol helps 11/07 pt very anxious, very worried about relapse if homeless which he is sure to lead to SI. Environmental Studies Faculty Member discussing with Surgical team who is trying to expedite date of Surgery to November 15, aware of situation SW reaching out to [facility] to see if any other options pt asks for Methadone to be increased. Plan: CV Q 15 minute checks Continue Bupropion Immediate Release 150 mg T.i.d.; due to ostomy, long-acting not absorbed Continue Bupropion Immediate Release 150 mg T.i.d.; due to ostomy, long-acting not absorbed DC bupropion HCl XL 300 mg daily plus bupropion HCl XL 150 mg daily Increased to methadone 50 mg daily; patient asked for increase due to cravings Continue chlorpromazine 100 mg PO TID Continue clonazepam 2 mg PO BID Continue mirtazapine 30mg PO BEDTIME; may titrate further for continued depression Added clonidine p.r.n. for anxiety melatonin 3 mg PO BEDTIME PRN Continue loperamide 2 mg PO TID Continue Xarelto 20 mg PO DAILY@1800 Continue lansoprazole 30 mg Capsule,Delayed Release(Dr/Ec) daily Continue methenamine mandelate 1 g PO QID Patient educated on: diagnosis, medication risk/benefits, substance abuse and medical condition [facility] surgeon Dr. Myla Shi appointment set for October 21 10:45 regarding ostomy: both ileostomy and colostomy in place. Both are viable appearing. Can change ileostomy appliance every 3-4 days and as needed. Empty appliance Q shift and as needed. Can keep the colostomy covered with dry dressing such as allevyn pads or nonwoven sponge, as it is being proximally diverted. He has a very large parastomal hernia at the ileostomy site which is soft and reducible, no current intervention needed. consulted the clinical appeals auditorFalguni to assist with education and appliance changes. Patient educated on: diagnosis, medication risk/benefits, substance abuse and medical condition Informed Consent: understands Reason for continued inpatient stay Substantial Risk for: rapid decompensation Time Spent With Patient Time: Total time managing care of this patient today ____ minutes.
--- NOTE | 2023-11-05 14:49 | HO.OSTOMY ---
Ostomy Consult: Follow up Follow up consult for difficult to pouch ostomy on M[facility] - Behavioral Health Unit. ?He had diverting loop Ileostomy unclear on exact creation but chart review reveals reversal was scheduled but patient missed this scheduled surgery due to prior hospitalization at outside facility. ? Patient not agreeable to teaching today per direct care nurse. She reports pouch is intact and not leaking, encouraged patient to proactively participate in this ostomy care to gain valuable experience with changing his pouch while he has assistance of staff as it appears patient will unfortunately be discharged to a skilled nursing. TT with Dr. Iyer regarding patient obtaining supplies - Provided supply list at previous discussion and advised local DME of [employer] store in [facility] to obtain correct pouch and accessories. The patient will need continued teaching and support given the complexity of this abdomen. Will attempt teaching in future if patient remains inpatient.
[2023-11-05] MEDS: Rivaroxaban 20 MG TABLET PO (17:06)
[2023-11-05] MEDS: Ibuprofen 800 MG TABLET PO (17:08)
[2023-11-05 20:00] VITALS: BP 127/66; PULSE 87; RESP 18; TEMP 36.8; O2SAT 98
[2023-11-05] MEDS: clonazePAM 0.5 MG TABLET PO (21:03)
[2023-11-05] MEDS: Mirtazapine 30 MG TABLET PO (21:03)
[2023-11-06 09:35] VITALS: BP 127/74; PULSE 78; RESP 14; TEMP 36.8; O2SAT 96
[2023-11-06] MEDS: buPROPion HCL 75 MG TABLET 150 MG PO ×3 (09:37→17:57)
[2023-11-06] MEDS: chlorproMAZINE HCl 100 MG TABLET PO ×3 (09:37→21:15)
[2023-11-06] MEDS: Amoxicillin/Potassium Clav 875 MG TABLET PO ×2 (09:38→21:15)
[2023-11-06] MEDS: Loperamide HCl 2 MG CAPSULE PO ×3 (09:38→21:14)
[2023-11-06] MEDS: clonazePAM 0.5 MG TABLET PO ×2 (09:38→21:14)
[2023-11-06] MEDS: methADONE HCl 20 MG/2 ML ORAL.CONC 40 MG PO (09:39)
--- NOTE | 2023-11-06 09:39 | P.PNPSI_ITS ---
Subjective Subjective Date of Service: 11/06/23 Reason For Visit: opiate overdose with suicidal intent Interim History: Patient seen and discussed with team Remains calm, overall better mood, trying to stay optimistic. Isolates in his room majority of time. Appetite is good. Ostomy changed regularly and is intact. Denies SI. Review of Systems Review of Systems Left lower gum/tooth erythema and swelling Constitutional: Denies chills and Denies fever(s) Gastrointestinal: Denies abdominal pain, Denies nausea and Denies vomiting Skin/Breast: Denies rash Mental Status Exam Mental Status Exam Narrative: Pt is alert and oriented; behavior is cooperative, calm; patient is not in distress; dressed in hospital gown, overall adequately groomed; mood is described as ok and affect congruent, brighter; eye contact appropriate; Speech is normal volume, rate; psychomotor retardation present; thought process is organized and goal directed; Thought content is on medical treatment, psychosocial stressors; otherwise pertinent to relevant topics and without any delusional content, paranoid ideations or grandiosity; no SI; no HI. Denies AVH. There is no evidence of perceptual disturbance. Patients insight and judgment fair. Diagnostics Vital Signs (24Hr): Vital Signs - 24 hr 11/05/23 20:00 11/06/23 09:35 Temperature 98.3 F 98.3 F Pulse Rate 87 78 Respiratory Rate 18 14 Blood Pressure 127/66 127/74 Pulse Oximetry 98 96 Oxygen Delivery Method Room Air Room Air BMI result Body Mass Index 26.9 Medications Medications Current Medications Acetaminophen (Acetaminophen 325 Mg Tablet) 650 mg PO Q6H PRN PRN Reason: Headache/Pain Mild Scale (1-3) Last Admin: 11/04/23 15:14 Dose: 650 mg Al Hydroxide/Mg Hydroxide (Magnesium Hydrox/Alum Hydrox 30 Ml Oral.Susp) 30 ml PO Q6H PRN PRN Reason: Heartburn/Nausea Last Admin: 10/28/23 14:04 Dose: 30 ml Amoxicillin/Clavulanate Potassium (Amoxicillin/Potassium Clav 875 Mg Tablet) 875 mg PO BID [facility] Stop: 11/07/23 12:29 Last Admin: 11/05/23 21:03 Dose: 875 mg Benzocaine (Benzocaine 20 % Oral Gel 9 Gm Tube) 1 appl MUCOUS MEM QID PRN; Protocol PRN Reason: toothache Last Admin: 11/02/23 15:34 Dose: 1 appl Benzonatate (Benzonatate 100 Mg Capsule) 100 mg PO TID PRN PRN Reason: Cough Bupropion HCl (Bupropion Hcl 75 Mg Tablet) 150 mg PO TID@0900,1300,1700 [facility] Last Admin: 11/05/23 16:43 Dose: 150 mg Chlorpromazine HCl (Chlorpromazine Hcl 100 Mg Tablet) 100 mg PO TID [facility] Last Admin: 11/05/23 21:03 Dose: 100 mg Clonazepam (Clonazepam 0.5 Mg Tablet) 0.5 mg PO BID [facility] Last Admin: 11/05/23 21:03 Dose: 0.5 mg Clonidine HCl (Clonidine Hcl 0.1 Mg Tablet) 0.1 mg PO Q4H PRN; Protocol PRN Reason: moderate anxiety Last Admin: 10/15/23 12:32 Dose: 0.1 mg Docusate Sodium (Docusate Sodium 100 Mg Capsule) 100 mg PO DAILY PRN PRN Reason: Constipation Hydroxyzine HCl (Hydroxyzine Hcl 25 Mg Tablet) 25 mg PO BID PRN PRN Reason: itch Last Admin: 10/17/23 20:52 Dose: 25 mg Ibuprofen (Ibuprofen 800 Mg Tablet) 800 mg PO Q8H PRN PRN Reason: toothache Last Admin: 11/05/23 17:08 Dose: 800 mg Loperamide HCl (Loperamide Hcl 2 Mg Capsule) 2 mg PO TID [facility] Last Admin: 11/05/23 21:03 Dose: 2 mg Magnesium Hydroxide (Milk Of Magnesia 30 Ml Oral.Susp) 30 ml PO DAILY PRN PRN Reason: Constipation Melatonin (Melatonin 3 Mg Tablet) 6 mg PO BEDTIME PRN PRN Reason: Insomnia Methadone HCl (Methadone Hcl 20 Mg/2 Ml Oral.Conc) 40 mg PO DAILY [facility] Last Admin: 11/05/23 09:23 Dose: 40 mg Mirtazapine (Mirtazapine 30 Mg Tablet) 30 mg PO BEDTIME [facility] Last Admin: 11/05/23 21:03 Dose: 30 mg Multi-Ingred Cream/Lotion/Oil/Oint (Mineral Oil/Petrolatum,White 106 Gm Tube) 1 appl TOPICAL TID [facility]; Protocol Last Admin: 11/05/23 23:52 Dose: Not Given Nicotine (Nicotine 21 Mg Patch.Td24) 21 mg TRANSDERMA DAILY PRN PRN Reason: nicotine craving Nicotine Polacrilex (Nicotine Polacrilex 2 Mg Gum) 4 mg BUCCAL Q2H PRN PRN Reason: Nicotine Cravings Omeprazole (Omeprazole 20 Mg Capsule.Dr) 20 mg PO DAILY@0630 [facility] Last Admin: 11/06/23 06:07 Dose: Not Given Rivaroxaban (Rivaroxaban 20 Mg Tablet) 20 mg PO DAILY@1800 [facility] Last Admin: 11/05/23 17:06 Dose: 20 mg Tramadol HCl (Tramadol Hcl 50 Mg Tablet) 25 mg PO Q6H PRN PRN Reason: Pain, Moderate(Pain Scale 4-6) Last Admin: 11/05/23 21:04 Dose: 25 mg Trazodone HCl (Trazodone Hcl 50 Mg Tablet) 50 mg PO BEDTIME MRX1 PRN PRN Reason: Insomnia Last Admin: 11/03/23 21:22 Dose: 50 mg Allergies Allergies Allergy/AdvReac Type Severity Reaction Status Date / Time haloperidol [From Haldol] AdvReac see note Verified 10/09/23 10:18 Assessment & Plan Assessment & Plan (1) MDD (major depressive disorder), recurrent, severe, with psychosis: Status: Acute Code(s): F33.3 - Major depressive disorder, recurrent, severe with psychotic symptoms (2) Post traumatic stress disorder (PTSD): Status: Acute Code(s): F43.10 - Post-traumatic stress disorder, unspecified (3) Opioid use disorder: Status: Acute Code(s): F11.90 - Opioid use, unspecified, uncomplicated (4) Cocaine use disorder: Status: Acute Code(s): F14.10 - Cocaine abuse, uncomplicated (5) Crohn's disease: Status: Acute Code(s): K50.90 - Crohn's disease, unspecified, without complications (6) Colostomy in place: Status: Acute Code(s): Z93.3 - Colostomy status (7) Ileostomy in place: Status: Acute Code(s): Z93.2 - Ileostomy status Plan Patient is a 48-year-old male with history of depression, opioid/cocaine abuse, Crohn's disease large bowel obstruction due to sigmoid stricture s/p colostomy, multiple psychiatric hospitalizations who presented to the ED for intentional drug overdose. Patient was found unresponsive on the back porch of a stranger's house after having injected cocaine/heroin into his neck. Patient was given Narcan and brought to the hospital. Patient reports that he intentionally overdosed in a suicide attempt following relational strife with his and being kicked out of the house. He was medically admitted and treated for rhabdomyolysis. Patient medically cleared and presents to for psychiatric admission. Patient reports that up until about 5 days ago he was doing well, good mood, taking his medications regularly and remain sober. Patient got into an argument with his , the details of which he did not disclose, and got kicked out of the house. Patient said that this triggered strong emotional response and he relapsed for the past 5 days; with continued depression and falling into despair patient got suicidal and intentionally overdosed on heroin cocaine. Patient remains depressed with intermittent suicidality present; he asks to get on methadone which he was on years ago, saying he needs this initially to help him stay sober and will get off it later on. He is amenable to medication adjustments, increasing antidepressants. Formulation/clinical reasoning: Will continue home medication; patient asking to be started on methadone which he has been on in the past to help him remain sober Continues to have SI though seems mostly related to being discharged to homelessness Will hold off increasing antidepressants for now since patient was on these doses for quite awhile, doing well hospital course: 10/12 Patient more open today. Shares more history. Says his girlfriend from cancer May 06; at that time he was hospitalized. He was doing better for while but got depressed again and was psychiatrically hospitalized at [facility] early this September. When he was discharged she went back to his female friend's house where he had been living in [place] but when he got there she told him he had a move out with little explanation. He said that is when he relapsed once on the street. Patient said because of the [facility] hospitalization he missed his surgical appointment to have his colostomy reversed. His worry is that if he is discharged back to the street, he will again relapse and again miss this important surgery. Patient says suicidality comes and goes but increases when he thinks of being homeless. -patient complained of some discomfort an anal region which resolved on its own after a shower 10/13 still depressed but slowly improving. Agrees to behavioral activation and push himself to attend groups. Increased mirtazapine to 15 mg which he agrees can be increased further if needed. Increasing methadone to 30 mg which he feels should be sufficient for staying sober. 10/17 increase Remeron to 30 mg; has outpatient appointment with surgical team WednesdayOctober 21 which he wants to attend. 10/18 patient remains depressed but says he stable; no SI and future oriented. He continues to want to discharge Wednesday to go to pre surgery appointment. Agrees to switching Wellbutrin to immediate release given poor absorption in the colon -team working on discharge planning in finding some housing until patient can get surgery. 10/19 patient depressed, but still feels stable, safe and wants to go to appointment on Wednesday, hopeful of getting some type of housing but saying he will take his chances if not. Hoping that immediate release Wellbutrin can make a difference; consider increasing it to t.i.d. 10/20 Patient tells video game script writer he wants to discharge tomorrow to his appointment. However also in the morning, he told a nurse that he plans to overdose after his appointment. Chemical Processing Technician returned later in the day to discuss this with patient who said that he was feeling upset and angry this morning and did say that however those feelings are gone now and he just wants to go to his pre-surgical appointment; he says that if they are not able to admit him for surgery at this appointment, he will just go and get a hotel until surgery is ready, saying he has enough money. Chemical Processing Technician came back again to discuss this further and patient said something to the effect of okay let me be open... There is a fight in my head whether to do something stupid or not... He goes on to say that he is worried that once discharged, he will cave in, use, get very angry at himself and intentionally overdose. He says I know depression will always be there... Sometimes I can control it... Patient says he does not want to , and very much wants surgery but he is currently worried about his ability to remain safe. He agrees that if he were able to get into a medical respite that would make a tremendous difference as he would be in a structured environment. 10/21 same presentation; continue current treatment plan Chemical Processing Technician and social insurance specialist communicating with [facility] regarding dispo; rescheduled pre-surgical appointment -video game script writer agrees that patient wants to be safe and wants to get surgery; however given his ostomy, he has not been digesting antidepressant medication, leaving his depression poorly treated; his medication was recently switched to immediate release to help with absorption and hopefully to help with depression. It is video game script writer's opinion that for now, it is in patient's best interest to remain on the unit to help establish a more supportive disposition. Although patient very much does not want to miss his appointment this Wednesday, he is amenable to staying longer and getting the appointment rescheduled for the same reason. 10/24 Patient remains depressed but overall doing better in the sense that suicidality has resolved he is future oriented. He is focused on keeping himself stable and safe so he can go to his pre surgery appointment and then get surgery for reversal of colostomy. He does not think that the Wellbutrin immediate release has made any difference in his mood but patient remains pushing himself to be engaged in his grateful for help received. Discussed disposition options and patient amenable to respite; he will also continue to follow up with [facility]. Patient does have a friend in the community who might have a place that he can stay and is looking into that as well. Chemical Processing Technician discussed case with nurse who knows him from past admissions at other hospital where he got ECT; this is a consideration given that his depression remains untreated due to poor absorption of antidepressants. 10/25 remains depressed but no SI; discussed history of ECT and although it was helpful, patient had bad experience with 1 of the trials and does not want ECT. Agrees to increase in Wellbutrin 10/26 hopefully increased Wellbutrin to 150 mg t.i.d. may be having some effect 10/30/2023: No changes to current plan 10/31/2023: Anbesol and amoxicillin for tooth/gum infection 10/31 Patient remains doing overall little better and depression remains lessened. Discussed ostomy bag and how Ostomy bag is anatomically located in a difficult place for patient to apply himself. Chemical Processing Technician discussed with wound care nurse felt it might be possible and attempted to teach patient; she felt that he was able to get much of a done however it was still anatomically located too far for him to fully do by himself and he remains needing assistance. She said she will continue working with him, practicing with him. -Social work setting up application to [facility] respite; video game script writer calling medical respite -Over the weekend patient had dental tooth pain; was started on antibiotic by covering provider 11/01 patient remained psychiatrically stable with improved mood; safe, no SI and future oriented. Patient continues to practice working on his ostomy with wound nurse. -video game script writer discussed case with medical respite who agrees to look again at his application; however they informed that there are currently no beds available, nor will there be any time soon. Today patient decided he was not going to go to [facility] respite and refused phone appointment with them. Patient said it was only for 6 days anyway so he did not want to bother (even though video game script writer explains the 6 days be enough time for him to get to his appointment). Patient also refused to go to [place], medical rehab establishment. He said he had been there before and it is a dump... Chemical Processing Technician discussed that while that may be true, it is temporary and can not be worse than a [facility]cc since they do actually have medical staff assisting with medical issues. Patient declined. Instead he said he will just continue to look for his own place, even if that has a mcc and that he will manage on his own; while he expresses gratitude for help received, he said he does not need video game script writer/social work's help further and this area. He continues to call his friend asking if he can stay there. Patient has full capacity to make medical decisions for himself; although he has chronic depression and passive SI, he denies any actual SI and is not imminent risk for harm to self or others. He remains future oriented and very much wants to get surgery. Chemical Processing Technician and team will continue to explore options with the few days remaining of this admission. However, as patient has refused both respite and medical rehab facility and other offers for dispo help, video game script writer understands that patient is able to make his own decisions in this area. 11/02 Patient again expressed gratitude for help received; he says he is continuing to apply his friend Maday to get her to let him stay with her. Says they used to be romantically involved but his substance abuse room in the relationship. She remains good friends with him in supportive but she is hesitant to let him stay with her because she does not want to risk him using in her apartment. He says he will continue to hope she will given; she said she would think about it. Chemical Processing Technician and team pursued another option however that to proved unavailable. Patient remains optimistic that he will stay sober while waiting for surgery. -Left molar continues to hurt; video game script writer will place consult 11/03 continue current treatment plan; says tooth pain is a little better that hospitalist came to see him; reviewed findings; says tramadol helps 11/05: continue current management and treatment plan. Plan: CV Q 15 minute checks Continue Bupropion Immediate Release 150 mg T.i.d.; due to ostomy, long-acting not absorbed Plan: CV Q 15 minute checks Continue Bupropion Immediate Release 150 mg T.i.d.; due to ostomy, long-acting not absorbed DC bupropion HCl XL 300 mg daily plus bupropion HCl XL 150 mg daily Increased to methadone 40 mg daily; patient asked for increase due to cravings Continue chlorpromazine 100 mg PO TID Continue clonazepam 2 mg PO BID Continue mirtazapine 30mg PO BEDTIME; may titrate further for continued depression Added clonidine p.r.n. for anxiety melatonin 3 mg PO BEDTIME PRN Continue loperamide 2 mg PO TID Continue Xarelto 20 mg PO DAILY@1800 Continue lansoprazole 30 mg Capsule,Delayed Release(Dr/Ec) daily Continue methenamine mandelate 1 g PO QID Patient educated on: diagnosis, medication risk/benefits, substance abuse and medical condition [facility] surgeon Dr. Myla Shi appointment set for October 21 10:45 regarding ostomy: both ileostomy and colostomy in place. Both are viable appearing. Can change ileostomy appliance every 3-4 days and as needed. Empty appliance Q shift and as needed. Can keep the colostomy covered with dry dressing such as allevyn pads or nonwoven sponge, as it is being proximally diverted. He has a very large parastomal hernia at the ileostomy site which is soft and reducible, no current intervention needed. consulted the health sciences department chairFalguni to assist with education and appliance changes. Reason for continued inpatient stay Substantial Risk for: harm to self, inability to function, rapid decompensation and med/psych decompensation Time Spent With Patient Time: Total time managing care of this patient today ____ minutes.
[2023-11-06] MEDS: Mineral Oil/Petrolatum,White 106 GM Tube 1 APPL TOPICAL (15:13)
[2023-11-06] MEDS: Rivaroxaban 20 MG TABLET PO (17:57)
[2023-11-06] MEDS: Ibuprofen 800 MG TABLET PO (18:18)
[2023-11-06 20:00] VITALS: BP 109/72; PULSE 116; RESP 18; TEMP 36.5; O2SAT 95
[2023-11-06] MEDS: Mirtazapine 30 MG TABLET PO (21:14)
[2023-11-06] MEDS: Melatonin 3 MG TABLET 6 MG PO (21:14)
[2023-11-07 07:59] VITALS: BP 102/71; PULSE 75; RESP 18; TEMP 36.8; O2SAT 93
--- NOTE | 2023-11-07 09:06 | HO.PSYCHPN ---
Subjective Subjective Date of Service: 11/07/23 Reason For Visit: opiate overdose with suicidal intent Interim History: Patient seen and discussed with team He is worried about discharge. He is saying he doesn't want to be in a park and where would I change this? (pointing to his ostomy bag). He says he is having SI when he thinks about DC and that he plans to OD. He told RN he has money he plans to use. He also has ambivalent feelings saying he wants to have the reversal procedure done on Wednesday. He is pessimistic that team will be able to secure a medical respite. Appetite is good. Isolates in his room majority of time. Ostomy changed regularly and is intact. Review of Systems Review of Systems Left lower gum/tooth erythema and swelling Constitutional: Denies chills and Denies fever(s) Gastrointestinal: Denies abdominal pain, Denies nausea and Denies vomiting Skin/Breast: Denies rash Mental Status Exam Mental Status Exam Narrative: Pt is alert and oriented; behavior is cooperative, calm; patient is not in distress; dressed in hospital gown, overall adequately groomed; mood is described as ok and affect congruent, brighter; eye contact appropriate; Speech is normal volume, rate; psychomotor retardation present; thought process is organized and goal directed; Thought content is on medical treatment, psychosocial stressors; otherwise pertinent to relevant topics and without any delusional content, paranoid ideations or grandiosity; no SI; no HI. Denies AVH. There is no evidence of perceptual disturbance. Patients insight and judgment fair. Diagnostics Vital Signs (24Hr): Vital Signs - 24 hr 11/06/23 09:35 11/06/23 20:00 11/07/23 07:59 Temperature 98.3 F 97.7 F 98.2 F Pulse Rate 78 116 H 75 Respiratory Rate 14 18 18 Blood Pressure 127/74 109/72 102/71 Pulse Oximetry 96 95 93 Oxygen Delivery Method Room Air Room Air Room Air BMI result Body Mass Index 26.9 Medications Medications Current Medications Acetaminophen (Acetaminophen 325 Mg Tablet) 650 mg PO Q6H PRN PRN Reason: Headache/Pain Mild Scale (1-3) Last Admin: 11/04/23 15:14 Dose: 650 mg Al Hydroxide/Mg Hydroxide (Magnesium Hydrox/Alum Hydrox 30 Ml Oral.Susp) 30 ml PO Q6H PRN PRN Reason: Heartburn/Nausea Last Admin: 10/28/23 14:04 Dose: 30 ml Amoxicillin/Clavulanate Potassium (Amoxicillin/Potassium Clav 875 Mg Tablet) 875 mg PO BID [facility] Stop: 11/07/23 12:29 Last Admin: 11/06/23 21:15 Dose: 875 mg Benzocaine (Benzocaine 20 % Oral Gel 9 Gm Tube) 1 appl MUCOUS MEM QID PRN; Protocol PRN Reason: toothache Last Admin: 11/02/23 15:34 Dose: 1 appl Benzonatate (Benzonatate 100 Mg Capsule) 100 mg PO TID PRN PRN Reason: Cough Bupropion HCl (Bupropion Hcl 75 Mg Tablet) 150 mg PO TID@0900,1300,1700 [facility] Last Admin: 11/06/23 17:57 Dose: 150 mg Chlorpromazine HCl (Chlorpromazine Hcl 100 Mg Tablet) 100 mg PO TID [facility] Last Admin: 11/06/23 21:15 Dose: 100 mg Clonazepam (Clonazepam 0.5 Mg Tablet) 0.5 mg PO BID [facility] Last Admin: 11/06/23 21:14 Dose: 0.5 mg Clonidine HCl (Clonidine Hcl 0.1 Mg Tablet) 0.1 mg PO Q4H PRN; Protocol PRN Reason: moderate anxiety Last Admin: 10/15/23 12:32 Dose: 0.1 mg Docusate Sodium (Docusate Sodium 100 Mg Capsule) 100 mg PO DAILY PRN PRN Reason: Constipation Hydroxyzine HCl (Hydroxyzine Hcl 25 Mg Tablet) 25 mg PO BID PRN PRN Reason: itch Last Admin: 10/17/23 20:52 Dose: 25 mg Ibuprofen (Ibuprofen 800 Mg Tablet) 800 mg PO Q8H PRN PRN Reason: toothache Last Admin: 11/06/23 18:18 Dose: 800 mg Loperamide HCl (Loperamide Hcl 2 Mg Capsule) 2 mg PO TID [facility] Last Admin: 11/06/23 21:14 Dose: 2 mg Magnesium Hydroxide (Milk Of Magnesia 30 Ml Oral.Susp) 30 ml PO DAILY PRN PRN Reason: Constipation Melatonin (Melatonin 3 Mg Tablet) 6 mg PO BEDTIME PRN PRN Reason: Insomnia Last Admin: 11/06/23 21:14 Dose: 6 mg Methadone HCl (Methadone Hcl 20 Mg/2 Ml Oral.Conc) 40 mg PO DAILY [facility] Last Admin: 11/06/23 09:39 Dose: 40 mg Mirtazapine (Mirtazapine 30 Mg Tablet) 30 mg PO BEDTIME [facility] Last Admin: 11/06/23 21:14 Dose: 30 mg Multi-Ingred Cream/Lotion/Oil/Oint (Mineral Oil/Petrolatum,White 106 Gm Tube) 1 appl TOPICAL TID [facility]; Protocol Last Admin: 11/06/23 23:38 Dose: Not Given Nicotine (Nicotine 21 Mg Patch.Td24) 21 mg TRANSDERMA DAILY PRN PRN Reason: nicotine craving Nicotine Polacrilex (Nicotine Polacrilex 2 Mg Gum) 4 mg BUCCAL Q2H PRN PRN Reason: Nicotine Cravings Omeprazole (Omeprazole 20 Mg Capsule.Dr) 20 mg PO DAILY@0630 [facility] Last Admin: 11/07/23 05:32 Dose: Not Given Rivaroxaban (Rivaroxaban 20 Mg Tablet) 20 mg PO DAILY@1800 [facility] Last Admin: 11/06/23 17:57 Dose: 20 mg Tramadol HCl (Tramadol Hcl 50 Mg Tablet) 25 mg PO Q6H PRN PRN Reason: Pain, Moderate(Pain Scale 4-6) Last Admin: 11/05/23 21:04 Dose: 25 mg Trazodone HCl (Trazodone Hcl 50 Mg Tablet) 50 mg PO BEDTIME MRX1 PRN PRN Reason: Insomnia Last Admin: 11/03/23 21:22 Dose: 50 mg Allergies Allergies Allergy/AdvReac Type Severity Reaction Status Date / Time haloperidol [From Haldol] AdvReac see note Verified 10/09/23 10:18 Assessment & Plan Assessment & Plan (1) MDD (major depressive disorder), recurrent, severe, with psychosis: Status: Acute Code(s): F33.3 - Major depressive disorder, recurrent, severe with psychotic symptoms (2) Post traumatic stress disorder (PTSD): Status: Acute Code(s): F43.10 - Post-traumatic stress disorder, unspecified (3) Opioid use disorder: Status: Acute Code(s): F11.90 - Opioid use, unspecified, uncomplicated (4) Cocaine use disorder: Status: Acute Code(s): F14.10 - Cocaine abuse, uncomplicated (5) Crohn's disease: Status: Acute Code(s): K50.90 - Crohn's disease, unspecified, without complications (6) Colostomy in place: Status: Acute Code(s): Z93.3 - Colostomy status (7) Ileostomy in place: Status: Acute Code(s): Z93.2 - Ileostomy status Plan Patient is a 48-year-old male with history of depression, opioid/cocaine abuse, Crohn's disease large bowel obstruction due to sigmoid stricture s/p colostomy, multiple psychiatric hospitalizations who presented to the ED for intentional drug overdose. Patient was found unresponsive on the back porch of a stranger's house after having injected cocaine/heroin into his neck. Patient was given Narcan and brought to the hospital. Patient reports that he intentionally overdosed in a suicide attempt following relational strife with his and being kicked out of the house. He was medically admitted and treated for rhabdomyolysis. Patient medically cleared and presents to for psychiatric admission. Patient reports that up until about 5 days ago he was doing well, good mood, taking his medications regularly and remain sober. Patient got into an argument with his , the details of which he did not disclose, and got kicked out of the house. Patient said that this triggered strong emotional response and he relapsed for the past 5 days; with continued depression and falling into despair patient got suicidal and intentionally overdosed on heroin cocaine. Patient remains depressed with intermittent suicidality present; he asks to get on methadone which he was on years ago, saying he needs this initially to help him stay sober and will get off it later on. He is amenable to medication adjustments, increasing antidepressants. Formulation/clinical reasoning: Will continue home medication; patient asking to be started on methadone which he has been on in the past to help him remain sober Continues to have SI though seems mostly related to being discharged to homelessness Will hold off increasing antidepressants for now since patient was on these doses for quite awhile, doing well hospital course: 10/12 Patient more open today. Shares more history. Says his girlfriend from cancer May 06; at that time he was hospitalized. He was doing better for while but got depressed again and was psychiatrically hospitalized at [facility] early this September. When he was discharged she went back to his female friend's house where he had been living in [place] but when he got there she told him he had a move out with little explanation. He said that is when he relapsed once on the street. Patient said because of the [facility] hospitalization he missed his surgical appointment to have his colostomy reversed. His worry is that if he is discharged back to the street, he will again relapse and again miss this important surgery. Patient says suicidality comes and goes but increases when he thinks of being homeless. -patient complained of some discomfort an anal region which resolved on its own after a shower 10/13 still depressed but slowly improving. Agrees to behavioral activation and push himself to attend groups. Increased mirtazapine to 15 mg which he agrees can be increased further if needed. Increasing methadone to 30 mg which he feels should be sufficient for staying sober. 10/17 increase Remeron to 30 mg; has outpatient appointment with surgical team WednesdayOctober 21 which he wants to attend. 10/18 patient remains depressed but says he stable; no SI and future oriented. He continues to want to discharge Wednesday to go to pre surgery appointment. Agrees to switching Wellbutrin to immediate release given poor absorption in the colon -team working on discharge planning in finding some housing until patient can get surgery. 10/19 patient depressed, but still feels stable, safe and wants to go to appointment on Wednesday, hopeful of getting some type of housing but saying he will take his chances if not. Hoping that immediate release Wellbutrin can make a difference; consider increasing it to t.i.d. 10/20 Patient tells senior technical writer he wants to discharge tomorrow to his appointment. However also in the morning, he told a nurse that he plans to overdose after his appointment. Commercial Energy Auditor returned later in the day to discuss this with patient who said that he was feeling upset and angry this morning and did say that however those feelings are gone now and he just wants to go to his pre-surgical appointment; he says that if they are not able to admit him for surgery at this appointment, he will just go and get a hotel until surgery is ready, saying he has enough money. Commercial Energy Auditor came back again to discuss this further and patient said something to the effect of okay let me be open... There is a fight in my head whether to do something stupid or not... He goes on to say that he is worried that once discharged, he will cave in, use, get very angry at himself and intentionally overdose. He says I know depression will always be there... Sometimes I can control it... Patient says he does not want to , and very much wants surgery but he is currently worried about his ability to remain safe. He agrees that if he were able to get into a medical respite that would make a tremendous difference as he would be in a structured environment. 10/21 same presentation; continue current treatment plan Commercial Energy Auditor and professor of social work communicating with [facility] regarding dispo; rescheduled pre-surgical appointment -senior technical writer agrees that patient wants to be safe and wants to get surgery; however given his ostomy, he has not been digesting antidepressant medication, leaving his depression poorly treated; his medication was recently switched to immediate release to help with absorption and hopefully to help with depression. It is senior technical writer's opinion that for now, it is in patient's best interest to remain on the unit to help establish a more supportive disposition. Although patient very much does not want to miss his appointment this Wednesday, he is amenable to staying longer and getting the appointment rescheduled for the same reason. 10/24 Patient remains depressed but overall doing better in the sense that suicidality has resolved he is future oriented. He is focused on keeping himself stable and safe so he can go to his pre surgery appointment and then get surgery for reversal of colostomy. He does not think that the Wellbutrin immediate release has made any difference in his mood but patient remains pushing himself to be engaged in his grateful for help received. Discussed disposition options and patient amenable to respite; he will also continue to follow up with [facility]. Patient does have a friend in the community who might have a place that he can stay and is looking into that as well. Commercial Energy Auditor discussed case with nurse who knows him from past admissions at other hospital where he got ECT; this is a consideration given that his depression remains untreated due to poor absorption of antidepressants. 10/25 remains depressed but no SI; discussed history of ECT and although it was helpful, patient had bad experience with 1 of the trials and does not want ECT. Agrees to increase in Wellbutrin 10/26 hopefully increased Wellbutrin to 150 mg t.i.d. may be having some effect 10/30/2023: No changes to current plan 10/31/2023: Anbesol and amoxicillin for tooth/gum infection 10/31 Patient remains doing overall little better and depression remains lessened. Discussed ostomy bag and how Ostomy bag is anatomically located in a difficult place for patient to apply himself. Commercial Energy Auditor discussed with wound care nurse felt it might be possible and attempted to teach patient; she felt that he was able to get much of a done however it was still anatomically located too far for him to fully do by himself and he remains needing assistance. She said she will continue working with him, practicing with him. -Social work setting up application [facility]; senior technical writer calling medical respite -Over the weekend patient had dental tooth pain; was started on antibiotic by covering provider 11/01 patient remained psychiatrically stable with improved mood; safe, no SI and future oriented. Patient continues to practice working on his ostomy with wound nurse. -senior technical writer discussed case with medical respite who agrees to look again at his application; however they informed that there are currently no beds available, nor will there be any time soon. Today patient decided he was not going to go to [facility] and refused phone appointment with them. Patient said it was only for 6 days anyway so he did not want to bother (even though senior technical writer explains the 6 days be enough time for him to get to his appointment). Patient also refused to go to [facility], medical rehab establishment. He said he had been there before and it is a dump... Commercial Energy Auditor discussed that while that may be true, it is temporary and can not be worse than a alf since they do actually have medical staff assisting with medical issues. Patient declined. Instead he said he will just continue to look for his own place, even if that has a alf and that he will manage on his own; while he expresses gratitude for help received, he said he does not need senior technical writer/social work's help further and this area. He continues to call his friend asking if he can stay there. Patient has full capacity to make medical decisions for himself; although he has chronic depression and passive SI, he denies any actual SI and is not imminent risk for harm to self or others. He remains future oriented and very much wants to get surgery. Commercial Energy Auditor and team will continue to explore options with the few days remaining of this admission. However, as patient has refused both respite and medical rehab facility and other offers for dispo help, senior technical writer understands that patient is able to make his own decisions in this area. 11/02 Patient again expressed gratitude for help received; he says he is continuing to apply his friend Maday to get her to let him stay with her. Says they used to be romantically involved but his substance abuse room in the relationship. She remains good friends with him in supportive but she is hesitant to let him stay with her because she does not want to risk him using in her apartment. He says he will continue to hope she will given; she said she would think about it. Commercial Energy Auditor and team pursued another option however that to proved unavailable. Patient remains optimistic that he will stay sober while waiting for surgery. -Left molar continues to hurt; senior technical writer will place consult 11/03 continue current treatment plan; says tooth pain is a little better that hospitalist came to see him; reviewed findings; says tramadol helps 11/05: continue current management and treatment plan. 11/06: continue current management and treatment plan. Team to work on safe DC plan. Plan: CV Q 15 minute checks Continue Bupropion Immediate Release 150 mg T.i.d.; due to ostomy, long-acting not absorbed Plan: CV Q 15 minute checks Continue Bupropion Immediate Release 150 mg T.i.d.; due to ostomy, long-acting not absorbed DC bupropion HCl XL 300 mg daily plus bupropion HCl XL 150 mg daily Increased to methadone 40 mg daily; patient asked for increase due to cravings Continue chlorpromazine 100 mg PO TID Continue clonazepam 2 mg PO BID Continue mirtazapine 30mg PO BEDTIME; may titrate further for continued depression Added clonidine p.r.n. for anxiety melatonin 3 mg PO BEDTIME PRN Continue loperamide 2 mg PO TID Continue Xarelto 20 mg PO DAILY@1800 Continue lansoprazole 30 mg Capsule,Delayed Release(Dr/Ec) daily Continue methenamine mandelate 1 g PO QID Patient educated on: diagnosis, medication risk/benefits, substance abuse and medical condition [facility] surgeon Dr. Myla Shi appointment set for October 21 10:45 regarding ostomy: both ileostomy and colostomy in place. Both are viable appearing. Can change ileostomy appliance every 3-4 days and as needed. Empty appliance Q shift and as needed. Can keep the colostomy covered with dry dressing such as allevyn pads or nonwoven sponge, as it is being proximally diverted. He has a very large parastomal hernia at the ileostomy site which is soft and reducible, no current intervention needed. consulted the pattern molderFalguni to assist with education and appliance changes. Reason for continued inpatient stay Substantial Risk for: harm to self, rapid decompensation and med/psych decompensation Time Spent With Patient Time: Total time managing care of this patient today ____ minutes.
[2023-11-07] MEDS: Loperamide HCl 2 MG CAPSULE PO ×3 (09:24→20:24)
[2023-11-07] MEDS: Omeprazole 20 MG CAPSULE.DR PO (09:24)
[2023-11-07] MEDS: clonazePAM 0.5 MG TABLET PO ×2 (09:25→20:25)
[2023-11-07] MEDS: methADONE HCl 20 MG/2 ML ORAL.CONC 40 MG PO (09:25)
[2023-11-07] MEDS: Amoxicillin/Potassium Clav 875 MG TABLET PO (09:25)
[2023-11-07] MEDS: buPROPion HCL 75 MG TABLET 150 MG PO ×3 (09:25→17:45)
[2023-11-07] MEDS: chlorproMAZINE HCl 100 MG TABLET PO ×3 (09:25→20:24)
[2023-11-07] MEDS: Rivaroxaban 20 MG TABLET PO (17:46)
[2023-11-07 20:00] VITALS: BP 110/73; PULSE 106; TEMP 36.7; O2SAT 96
[2023-11-07] MEDS: traMADoL HCL 50 MG TABLET 25 MG PO (20:23)
[2023-11-07] MEDS: Ibuprofen 800 MG TABLET PO (20:23)
[2023-11-07] MEDS: Mirtazapine 30 MG TABLET PO (20:24)
[2023-11-07] MEDS: Melatonin 3 MG TABLET 6 MG PO (20:25)
[2023-11-08 08:00] VITALS: BP 122/64; PULSE 119; RESP 18; TEMP 36.4; O2SAT 98
[2023-11-08] MEDS: methADONE HCl 20 MG/2 ML ORAL.CONC 40 MG PO (08:00)
[2023-11-08] MEDS: buPROPion HCL 75 MG TABLET 150 MG PO ×3 (08:03→17:08)
[2023-11-08] MEDS: clonazePAM 0.5 MG TABLET PO ×2 (08:03→20:56)
[2023-11-08] MEDS: Omeprazole 20 MG CAPSULE.DR PO (08:03)
[2023-11-08] MEDS: chlorproMAZINE HCl 100 MG TABLET PO ×3 (08:03→20:56)
[2023-11-08] MEDS: Loperamide HCl 2 MG CAPSULE PO ×3 (09:10→20:56)
[2023-11-08] MEDS: Mineral Oil/Petrolatum,White 106 GM Tube 1 APPL TOPICAL (14:38)
[2023-11-08] MEDS: Rivaroxaban 20 MG TABLET PO (17:08)
[2023-11-08 19:30] VITALS: BP 112/69; PULSE 87; TEMP 36.4; O2SAT 95
[2023-11-08] MEDS: Mirtazapine 30 MG TABLET PO (20:57)
[2023-11-09] MEDS: methADONE HCl 20 MG/2 ML ORAL.CONC 50 MG PO (07:55)
[2023-11-09 08:00] VITALS: BP 128/84; PULSE 97; RESP 18; TEMP 36.7; O2SAT 98
[2023-11-09] MEDS: chlorproMAZINE HCl 100 MG TABLET PO ×3 (08:37→20:17)
[2023-11-09] MEDS: Loperamide HCl 2 MG CAPSULE PO ×3 (08:37→20:17)
[2023-11-09] MEDS: buPROPion HCL 75 MG TABLET 150 MG PO ×3 (08:37→18:30)
[2023-11-09] MEDS: Omeprazole 20 MG CAPSULE.DR PO (08:37)
[2023-11-09] MEDS: clonazePAM 0.5 MG TABLET PO ×2 (08:37→20:17)
[2023-11-09] MEDS: hydrOXYzine HCL 25 MG TABLET PO (10:46)
[2023-11-09] MEDS: Rivaroxaban 20 MG TABLET PO (18:30)
--- NOTE | 2023-11-09 19:16 | P.PNPSI_ITS ---
Subjective Subjective Date of Service: 11/09/23 Reason For Visit: opiate overdose with suicidal intent Interim History: Met with patient; discussed with team No change in presentation; mood improved, no SI, focused on discharge plans and surgery. Mental Status Exam Mental Status Exam Narrative: Pt is alert and oriented; behavior is cooperative, calm; patient is not in dist ress; dressed in hospital gown, overall adequately groomed; mood is described as ok and affect congruent, brighter; eye contact appropriate; Speech is normal volume, rate; psychomotor retardation present; thought process is organized and goal directed; Thought content is on medical treatment, psychosocial stressors; otherwise pertinent to relevant topics and without any delusional content, paran oid ideations or grandiosity; no SI; no HI. Denies AVH. There is no evidence of perceptual disturbance. Patients insight and judgment fair. Diagnostics Vital Signs (24Hr): Vital Signs - 24 hr 11/08/23 19:30 11/09/23 08:00 Temperature 97.5 F 98.1 F Pulse Rate 87 97 Respiratory Rate 18 Blood Pressure 112/69 128/84 Pulse Oximetry 95 98 Oxygen Delivery Method Room Air Room Air BMI result Body Mass Index 26.9 Medications Medications Current Medications Acetaminophen (Acetaminophen 325 Mg Tablet) 650 mg PO Q6H PRN PRN Reason: Headache/Pain Mild Scale (1-3) Last Admin: 11/04/23 15:14 Dose: 650 mg Al Hydroxide/Mg Hydroxide (Magnesium Hydrox/Alum Hydrox 30 Ml Oral.Susp) 30 ml PO Q6H PRN PRN Reason: Heartburn/Nausea Last Admin: 10/28/23 14:04 Dose: 30 ml Benzocaine (Benzocaine 20 % Oral Gel 9 Gm Tube) 1 appl MUCOUS MEM QID PRN; Protocol PRN Reason: toothache Last Admin: 11/02/23 15:34 Dose: 1 appl Benzonatate (Benzonatate 100 Mg Capsule) 100 mg PO TID PRN PRN Reason: Cough Bupropion HCl (Bupropion Hcl 75 Mg Tablet) 150 mg PO TID@0900,1300,1700 [facility] Last Admin: 11/09/23 18:30 Dose: 150 mg Chlorpromazine HCl (Chlorpromazine Hcl 100 Mg Tablet) 100 mg PO TID [facility] Last Admin: 11/09/23 15:40 Dose: 100 mg Clonazepam (Clonazepam 0.5 Mg Tablet) 0.5 mg PO BID [facility] Last Admin: 11/09/23 08:37 Dose: 0.5 mg Clonidine HCl (Clonidine Hcl 0.1 Mg Tablet) 0.1 mg PO Q4H PRN; Protocol PRN Reason: moderate anxiety Last Admin: 10/15/23 12:32 Dose: 0.1 mg Docusate Sodium (Docusate Sodium 100 Mg Capsule) 100 mg PO DAILY PRN PRN Reason: Constipation Hydroxyzine HCl (Hydroxyzine Hcl 25 Mg Tablet) 25 mg PO BID PRN PRN Reason: itch Last Admin: 11/09/23 10:46 Dose: 25 mg Ibuprofen (Ibuprofen 800 Mg Tablet) 800 mg PO Q8H PRN PRN Reason: toothache Last Admin: 11/07/23 20:23 Dose: 800 mg Loperamide HCl (Loperamide Hcl 2 Mg Capsule) 2 mg PO TID [facility] Last Admin: 11/09/23 15:40 Dose: 2 mg Magnesium Hydroxide (Milk Of Magnesia 30 Ml Oral.Susp) 30 ml PO DAILY PRN PRN Reason: Constipation Melatonin (Melatonin 3 Mg Tablet) 6 mg PO BEDTIME PRN PRN Reason: Insomnia Last Admin: 11/07/23 20:25 Dose: 6 mg Methadone HCl (Methadone Hcl 20 Mg/2 Ml Oral.Conc) 50 mg PO DAILY@0800 [facility] Last Admin: 11/09/23 07:55 Dose: 50 mg Mirtazapine (Mirtazapine 30 Mg Tablet) 30 mg PO BEDTIME [facility] Last Admin: 11/08/23 20:57 Dose: 30 mg Multi-Ingred Cream/Lotion/Oil/Oint (Mineral Oil/Petrolatum,White 106 Gm Tube) 1 appl TOPICAL TID [facility]; Protocol Last Admin: 11/09/23 15:43 Dose: Not Given Nicotine (Nicotine 21 Mg Patch.Td24) 21 mg TRANSDERMA DAILY PRN PRN Reason: nicotine craving Nicotine Polacrilex (Nicotine Polacrilex 2 Mg Gum) 4 mg BUCCAL Q2H PRN PRN Reason: Nicotine Cravings Omeprazole (Omeprazole 20 Mg Capsule.Dr) 20 mg PO DAILY@0630 [facility] Last Admin: 11/09/23 08:37 Dose: 20 mg Rivaroxaban (Rivaroxaban 20 Mg Tablet) 20 mg PO DAILY@1800 [facility] Last Admin: 11/09/23 18:30 Dose: 20 mg Tramadol HCl (Tramadol Hcl 50 Mg Tablet) 25 mg PO Q6H PRN PRN Reason: Pain, Moderate(Pain Scale 4-6) Last Admin: 11/07/23 20:23 Dose: 25 mg Trazodone HCl (Trazodone Hcl 50 Mg Tablet) 50 mg PO BEDTIME MRX1 PRN PRN Reason: Insomnia Last Admin: 11/03/23 21:22 Dose: 50 mg Allergies Allergies Allergy/AdvReac Type Severity Reaction Status Date / Time haloperidol [From Haldol] AdvReac see note Verified 10/09/23 10:18 Assessment & Plan Assessment & Plan (1) MDD (major depressive disorder), recurrent, severe, with psychosis: Status: Acute Code(s): F33.3 - Major depressive disorder, recurrent, severe with psychotic symptoms (2) Post traumatic stress disorder (PTSD): Status: Acute Code(s): F43.10 - Post-traumatic stress disorder, unspecified (3) Opioid use disorder: Status: Acute Code(s): F11.90 - Opioid use, unspecified, uncomplicated (4) Cocaine use disorder: Status: Acute Code(s): F14.10 - Cocaine abuse, uncomplicated (5) Crohn's disease: Status: Acute Code(s): K50.90 - Crohn's disease, unspecified, without complications (6) Colostomy in place: Status: Acute Code(s): Z93.3 - Colostomy status (7) Ileostomy in place: Status: Acute Code(s): Z93.2 - Ileostomy status Plan Patient is a 48-year-old male with history of depression, opioid/cocaine abuse, Crohn's disease large bowel obstruction due to sigmoid stricture s/p colostomy, multiple psychiatric hospitalizations who presented to the ED for intentional drug overdose. Patient was found unresponsive on the back porch of a stranger's house after having injected cocaine/heroin into his neck. Patient was given Narcan and brought to the hospital. Patient reports that he intentionally overdosed in a suicide attempt following relational strife with his and being kicked out of the house. He was medically admitted and treated for rhabdomyolysis. Patient medically cleared and presents to for psychiatric admission. Patient reports that up until about 5 days ago he was doing well, good mood, taking his medications regularly and remain sober. Patient got into an argument with his , the details of which he did not disclose, and got kicked out of the house. Patient said that this triggered strong emotional response and he relapsed for the past 5 days; with continued depression and falling into despair patient got suicidal and intentionally overdosed on heroin cocaine. Patient remains depressed with intermittent suicidality present; he asks to get on methadone which he was on years ago, saying he needs this initially to help him stay sober and will get off it later on. He is amenable to medication adjustments, increasing antidepressants. Formulation/clinical reasoning: Will continue home medication; patient asking to be started on methadone which he has been on in the past to help him remain sober Continues to have SI though seems mostly related to being discharged to homelessness Will hold off increasing antidepressants for now since patient was on these doses for quite awhile, doing well hospital course: 10/12 Patient more open today. Shares more history. Says his girlfriend from cancer May 06; at that time he was hospitalized. He was doing better for while but got depressed again and was psychiatrically hospitalized at [facility] early this September. When he was discharged she went back to his female friend's house where he had been living in [place] but when he got there she told him he had a move out with little explanation. He said that is when he relapsed once on the street. Patient said because of the [facility] hospitalization he missed his surgical appointment to have his colostomy reversed. His worry is that if he is discharged back to the street, he will again relapse and again miss this important surgery. Patient says suicidality comes and goes but increases when he thinks of being homeless. -patient complained of some discomfort an anal region which resolved on its own after a shower 10/13 still depressed but slowly improving. Agrees to behavioral activation and push himself to attend groups. Increased mirtazapine to 15 mg which he agrees can be increased further if needed. Increasing methadone to 30 mg which he feels should be sufficient for staying sober. 10/17 increase Remeron to 30 mg; has outpatient appointment with surgical team WednesdayOctober 21 which he wants to attend. 10/18 patient remains depressed but says he stable; no SI and future oriented. He continues to want to discharge Wednesday to go to pre surgery appointment. Agrees to switching Wellbutrin to immediate release given poor absorption in the colon -team working on discharge planning in finding some housing until patient can get surgery. 10/19 patient depressed, but still feels stable, safe and wants to go to appointment on Wednesday, hopeful of getting some type of housing but saying he will take his chances if not. Hoping that immediate release Wellbutrin can make a difference; consider increasing it to t.i.d. 10/20 Patient tells global technical writer he wants to discharge tomorrow to his appointment. However also in the morning, he told a nurse that he plans to overdose after his appointment. Restaurant Assistant Manager returned later in the day to discuss this with patient who said that he was feeling upset and angry this morning and did say that however those feelings are gone now and he just wants to go to his pre-surgical appointment; he says that if they are not able to admit him for surgery at this appointment, he will just go and get a hotel until surgery is ready, saying he has enough money. Restaurant Assistant Manager came back again to discuss this further and patient said something to the effect of okay let me be open... There is a fight in my head whether to do something stupid or not... He goes on to say that he is worried that once discharged, he will cave in, use, get very angry at himself and intentionally overdose. He says I know depression will always be there... Sometimes I can control it... Patient says he does not want to , and very much wants surgery but he is currently worried about his ability to remain safe. He agrees that if he were able to get into a medical respite that would make a tremendous difference as he would be in a structured environment. 10/21 same presentation; continue current treatment plan Restaurant Assistant Manager and social services coordinator communicating with [facility] regarding dispo; rescheduled pre-surgical appointment -global technical writer agrees that patient wants to be safe and wants to get surgery; however g iven his ostomy, he has not been digesting antidepressant medication, leaving his depression poorly treated; his medication was recently switched to immediate release to help with absorption and hopefully to help with depression. It is global technical writer's opinion that for now, it is in patient's best interest to remain on the unit to help establish a more supportive disposition. Although patient very much does not want to miss his appointment this Wednesday, he is amenable to staying longer and getting the appointment rescheduled for the same reason. 10/24 Patient remains depressed but overall doing better in the sense that suicidality has resolved he is future oriented. He is focused on keeping himself stable and safe so he can go to his pre surgery appointment and then get surgery for reversal of colostomy. He does not think that the Wellbutrin immediate release has made any difference in his mood but patient remains pushing himself to be engaged in his grateful for help received. Discussed di sposition options and patient amenable to respite; he will also continue to follow up with [facility]. Patient does have a friend in the community who might have a place that he can stay and is looking into that as well. Restaurant Assistant Manager discussed case with nurse who knows him from past admissions at other hospital where he got ECT; this is a consideration given that his depression remains untreated due to poor absorption of antidepressants. 10/25 remains depressed but no SI; discussed history of ECT and although it was helpful, patient had bad experience with 1 of the trials and does not want ECT. Agrees to increase in Wellbutrin 10/26 hopefully increased Wellbutrin to 150 mg t.i.d. may be having some effect 10/30/2023: No changes to current plan 10/31/2023: Anbesol and amoxicillin for tooth/gum infection 10/31 Patient remains doing overall little better and depression remains lessened. Discussed ostomy bag and how Ostomy bag is anatomically located in a difficult place for patient to apply himself. Restaurant Assistant Manager discussed with wound care nurse felt it might be possible and attempted to teach patient; she felt that he was able to get much of a done however it was still anatomically located too far for him to fully do by himself and he remains needing assistance. She said she will continue working with him, practicing with him. -Social work setting up application to [facility] respite; global technical writer calling medical respite -Over the weekend patient had dental tooth pain; was started on antibiotic by covering provider 11/01 patient remained psychiatrically stable with improved mood; safe, no SI and future oriented. Patient continues to practice working on his ostomy with wound nurse. -global technical writer discussed case with medical respite who agrees to look again at his application; however they informed that there are currently no beds available, nor will there be any time soon. Today patient decided he was not going to go to [facility] respite and refused phone appointment with them. Patient said it was only for 6 days anyway so he did not want to bother (even though global technical writer explains the 6 days be enough time for him to get to his appointment). Patient also refused to go to [facility], medical rehab establishment. He said he had been there before and it is a dump... Restaurant Assistant Manager discussed that while that may be true, it is temporary and can not be worse than a half-way since they do actually have medical staff assisting with medical issues. Patient declined. Instead he said he will just continue to look for his own place, even if that has a half-way and that he will manage on his own; while he expresses gratitude for help received, he said he does not need global technical writer/social work's help further and this area. He continues to call his friend asking if he can stay there. Patient has full capacity to make medical decisions for himself; although he has chronic depression and passive SI, he denies any actual SI and is not imminent risk for harm to self or others. He remains future oriented and very much wants to get surgery. Restaurant Assistant Manager and team will continue to explore options with the few days remaining of this admission. However, as patient has refused both respite and medical rehab facility and other offers for dispo help, global technical writer understands that patient is able to make his own decisions in this area. 11/02 Patient again expressed gratitude for help received; he says he is continuing to apply his friend Maday to get her to let him stay with her. Says they used to be romantically involved but his substance abuse room in the relationship. She remains good friends with him in supportive but she is hesitant to let him stay with her because she does not want to risk him using in her apartment. He says he will continue to hope she will given; she said she would think about it. Restaurant Assistant Manager and team pursued another option however that to proved unavailable. Patient remains optimistic that he will stay sober while waiting for surgery. -Left molar continues to hurt; global technical writer will place consult 11/03 continue current treatment plan; says tooth pain is a little better that hospitalist came to see him; reviewed findings; says tramadol helps 11/07 pt very anxious, very worried about relapse if homeless which he is sure to lead to SI. Restaurant Assistant Manager discussing with Surgical team who is trying to expedite date of Surgery to November 15, aware of situation SW reaching out to [facility] to see if any other options pt asks for Methadone to be increased. 11/08 patient remained stable, mood improved and no SI; anxious about homelessness/surgery Plan: CV Q 15 minute checks Continue Bupropion Immediate Release 150 mg T.i.d.; due to ostomy, long-acting not absorbed Continue Bupropion Immediate Release 150 mg T.i.d.; due to ostomy, long-acting not absorbed DC bupropion HCl XL 300 mg daily plus bupropion HCl XL 150 mg daily Increased to methadone 50 mg daily; patient asked for increase due to cravings Continue chlorpromazine 100 mg PO TID Continue clonazepam 2 mg PO BID Continue mirtazapine 30mg PO BEDTIME; may titrate further for continued depression Added clonidine p.r.n. for anxiety melatonin 3 mg PO BEDTIME PRN Continue loperamide 2 mg PO TID Continue Xarelto 20 mg PO DAILY@1800 Continue lansoprazole 30 mg Capsule,Delayed Release(Dr/Ec) daily Continue methenamine mandelate 1 g PO QID Patient educated on: diagnosis, medication risk/benefits, substance abuse and medical condition [facility] surgeon Dr. Myla Shi appointment set for October 21 10:45 regarding ostomy: both ileostomy and colostomy in place. Both are viable appearing. Can change ileostomy appliance every 3-4 days and as needed. Empty appliance Q shift and as needed. Can keep the colostomy covered with dry dressing such as allevyn pads or nonwoven sponge, as it is being proximally diverted. He has a very large parastomal hernia at the ileostomy site which is soft and reducible, no current intervention needed. consulted the x ray technicianFalguni to assist with education and appliance changes. Patient educated on: diagnosis, medication risk/benefits and medical condition Informed Consent: understands Reason for continued inpatient stay Substantial Risk for: stable for discharge Time Spent With Patient Time: Total time managing care of this patient today ____ minutes.
[2023-11-09 20:00] VITALS: BP 149/91; PULSE 80; RESP 18; TEMP 36.6; O2SAT 98
[2023-11-09] MEDS: Mirtazapine 30 MG TABLET PO (20:17)
[2023-11-10] MEDS: methADONE HCl 20 MG/2 ML ORAL.CONC 50 MG PO (07:44)
[2023-11-10 08:00] VITALS: BP 120/68; PULSE 81; TEMP 36.9; O2SAT 93
[2023-11-10] MEDS: buPROPion HCL 75 MG TABLET 150 MG PO ×3 (08:39→17:12)
[2023-11-10] MEDS: chlorproMAZINE HCl 100 MG TABLET PO ×3 (08:39→20:35)
[2023-11-10] MEDS: clonazePAM 0.5 MG TABLET PO ×2 (08:39→20:34)
[2023-11-10] MEDS: Omeprazole 20 MG CAPSULE.DR PO (08:39)
[2023-11-10] MEDS: Loperamide HCl 2 MG CAPSULE PO ×3 (08:39→20:34)
--- NOTE | 2023-11-10 16:56 | HO.OSTOMY ---
Ostomy Consult: Follow up Follow up consult for difficult to pouch ostomy on - Behavioral Health Unit. ?He had diverting loop Ileostomy unclear on exact date of creation but chart review reveals reversal was scheduled but patient missed this scheduled surgery due to prior hospitalization at outside facility. ? Patient agreeable to consultation - met intreatment room - patient was bright and agreeable to teaching. Kathyurent plan for d/c is to a fdc with ostomy supplies being sent to a friends home for when it is needed. The patient whould have some supply on him at time of d/c since he will never know when a pouch change will need to happen. It remains true the patient is able to verbally walk someone through the general [facility] change but still has great difficulty seeing the stoma and is not able to perform independently. He was changed into a Coloplast 95985, 1 Piece CONVEX cut to fit (28 oval), Moldable Ring was used, stoma red / pink and moist. ?Peristomal skin is intact and resurfaced. Stoma paste applied at 3 and 9 o'clock. Convex pouch applied along with elastic curved barrier strips to the pouch 2 placed on the medial side. The pouch was completed with a belt application. Patient reports the pouch and belt makes a significant difference for him and his pouch adherence. The peristomal skin continues to improve visibly and comfort per pt report. He continues to be independent with emptying - pt advised to empty more often since the less weight on the pouch the better it will stay in place. ?He reported having no questions at this time. ?Patient was made aware that he should leave with supplies for use after discharge. ?All questions and concerns addressed at this time. See below for step by step instruction. Supplies needed at time of discharge: Coloplast Convex Pouches # [id number] Coloplast Ostomy Belt # [id number] Coloplast Barrier Ring # [id number] Coloplast Powder # [id number] [employer] Skin barrier wipes [facility] # [id number]? Coloplast Curved Elastic Strips # [id number] Coloplast Paste (2 tubes at bedside should not need more at this time) Ostomy Pouching Recommendations for Brianzaynab Silvera ? 1)Remove pouch every 3-4 days. Change sooner if you notice any leaking.? Do not reinforce with tape.?Patient histroically leaks at the 3 o'clock area with in the valley created from his hernia. Stoma when lying flat ? Stoma when sitting Patient standing with mirror for viewing while he provides his care is imperative to success as he is not able to see his stoma in any other position. Ideally patient will lay flat for proper pouch application and adherence, but if independent may principal statistical programmer front of wait high mirror. 2)Clean skin around stoma with warm water and soft cloth.? Avoid using soaps or lotions.? Discontinue Adhesive remover. *Soaps can contain aloes/lanolins/extracts which leave film on skin that will interfere with pouch adherence. Pat skin dry. 4) For the red and irritated skin dust with Stomahesive powder, dust off all excess powder, then seal with no sting prep, allow to dry. Powder Skin Prep 5) Prepare products; Cut ostomy pouch we use to approximately 28mm Oval- Use Templates left in patient bin, Coloplast SenSura [employer] Deep Convexity #[id number]. ??Provider must special order. 6) Fill the area around the stoma with Moldable Barrier Ring at this time. Apply small amount of paste to the 3 and 9 o'clock creases this is wear he leaks the most. 7) Remove adhesive paper backing from back of pouch wafer apply Gentle Warm pressure to seal the wafer to his skin.? 8) Complete pouch change with application of [place] Elastic C strips to allow for added adherence.? Complete with belt application - pt instructed to wear the belt to for added pressure to correct the way the stoma faces.? Patient educated on the belt being to tight and to monitor his skin.?
[2023-11-10] MEDS: Rivaroxaban 20 MG TABLET PO (17:12)
[2023-11-10 20:00] VITALS: BP 103/57; PULSE 82; RESP 17; TEMP 36.4; O2SAT 97
[2023-11-10] MEDS: Mirtazapine 30 MG TABLET PO (20:34)
[2023-11-10] MEDS: traZODone HCL 50 MG TABLET PO (20:34)
--- NOTE | 2023-11-10 22:35 | HO.PSYCHPN ---
Subjective Subjective Date of Service: 11/10/23 Reason For Visit: opiate overdose with suicidal intent Interim History: Met with patient; discussed with team Patient continued to deny any SI and has not had any for a while. He is depressed and anxious but feels safe; he is worried about relapsing before surgery but is trying to be hopeful about staying sober until then. He is not sure where he is going to go, likely to hotel. He says his friend is willing to help him get from place to place including to surgery but will not let him stay there. [employer] Consultant reaching out to outpatient, community provider Dr. Pimentel to review resources Mental Status Exam Mental Status Exam Narrative: Pt is alert and oriented; behavior is cooperative, calm; patient is not in distress; dressed in hospital gown, overall adequately groomed; mood is described as ok and affect congruent, brighter; eye contact appropriate; Speech is normal volume, rate; psychomotor retardation present; thought process is organized and goal directed; Thought content is on medical treatment, psychosocial stressors; otherwise pertinent to relevant topics and without any delusional content, paranoid ideations or grandiosity; no SI; no HI. Denies AVH. There is no evidence of perceptual disturbance. Patients insight and judgment fair. Diagnostics Vital Signs (24Hr): Vital Signs - 24 hr 11/10/23 08:00 Temperature 98.4 F Pulse Rate 81 Blood Pressure 120/68 Pulse Oximetry 93 Oxygen Delivery Method Room Air BMI result Body Mass Index 26.9 Medications Medications Current Medications Acetaminophen (Acetaminophen 325 Mg Tablet) 650 mg PO Q6H PRN PRN Reason: Headache/Pain Mild Scale (1-3) Last Admin: 11/04/23 15:14 Dose: 650 mg Al Hydroxide/Mg Hydroxide (Magnesium Hydrox/Alum Hydrox 30 Ml Oral.Susp) 30 ml PO Q6H PRN PRN Reason: Heartburn/Nausea Last Admin: 10/28/23 14:04 Dose: 30 ml Benzocaine (Benzocaine 20 % Oral Gel 9 Gm Tube) 1 appl MUCOUS MEM QID PRN; Protocol PRN Reason: toothache Last Admin: 11/02/23 15:34 Dose: 1 appl Benzonatate (Benzonatate 100 Mg Capsule) 100 mg PO TID PRN PRN Reason: Cough Bupropion HCl (Bupropion Hcl 75 Mg Tablet) 150 mg PO TID@0900,1300,1700 [facility] Last Admin: 11/10/23 17:12 Dose: 150 mg Chlorpromazine HCl (Chlorpromazine Hcl 100 Mg Tablet) 100 mg PO TID [facility] Last Admin: 11/10/23 20:35 Dose: 100 mg Clonazepam (Clonazepam 0.5 Mg Tablet) 0.5 mg PO BID [facility] Last Admin: 11/10/23 20:34 Dose: 0.5 mg Clonidine HCl (Clonidine Hcl 0.1 Mg Tablet) 0.1 mg PO Q4H PRN; Protocol PRN Reason: moderate anxiety Last Admin: 10/15/23 12:32 Dose: 0.1 mg Docusate Sodium (Docusate Sodium 100 Mg Capsule) 100 mg PO DAILY PRN PRN Reason: Constipation Hydroxyzine HCl (Hydroxyzine Hcl 25 Mg Tablet) 25 mg PO BID PRN PRN Reason: itch Last Admin: 11/09/23 10:46 Dose: 25 mg Ibuprofen (Ibuprofen 800 Mg Tablet) 800 mg PO Q8H PRN PRN Reason: toothache Last Admin: 11/07/23 20:23 Dose: 800 mg Loperamide HCl (Loperamide Hcl 2 Mg Capsule) 2 mg PO TID [facility] Last Admin: 11/10/23 20:34 Dose: 2 mg Magnesium Hydroxide (Milk Of Magnesia 30 Ml Oral.Susp) 30 ml PO DAILY PRN PRN Reason: Constipation Melatonin (Melatonin 3 Mg Tablet) 6 mg PO BEDTIME PRN PRN Reason: Insomnia Last Admin: 11/07/23 20:25 Dose: 6 mg Methadone HCl (Methadone Hcl 20 Mg/2 Ml Oral.Conc) 50 mg PO DAILY@0800 [facility] Last Admin: 11/10/23 07:44 Dose: 50 mg Mirtazapine (Mirtazapine 30 Mg Tablet) 30 mg PO BEDTIME [facility] Last Admin: 11/10/23 20:34 Dose: 30 mg Multi-Ingred Cream/Lotion/Oil/Oint (Mineral Oil/Petrolatum,White 106 Gm Tube) 1 appl TOPICAL TID [facility]; Protocol Last Admin: 11/10/23 14:29 Dose: Not Given Nicotine (Nicotine 21 Mg Patch.Td24) 21 mg TRANSDERMA DAILY PRN PRN Reason: nicotine craving Nicotine Polacrilex (Nicotine Polacrilex 2 Mg Gum) 4 mg BUCCAL Q2H PRN PRN Reason: Nicotine Cravings Omeprazole (Omeprazole 20 Mg Capsule.Dr) 20 mg PO DAILY@0630 [facility] Last Admin: 11/10/23 08:39 Dose: 20 mg Rivaroxaban (Rivaroxaban 20 Mg Tablet) 20 mg PO DAILY@1800 [facility] Last Admin: 11/10/23 17:12 Dose: 20 mg Tramadol HCl (Tramadol Hcl 50 Mg Tablet) 25 mg PO Q6H PRN PRN Reason: Pain, Moderate(Pain Scale 4-6) Last Admin: 11/07/23 20:23 Dose: 25 mg Trazodone HCl (Trazodone Hcl 50 Mg Tablet) 50 mg PO BEDTIME MRX1 PRN PRN Reason: Insomnia Last Admin: 11/10/23 20:34 Dose: 50 mg Allergies Allergies Allergy/AdvReac Type Severity Reaction Status Date / Time haloperidol [From Haldol] AdvReac see note Verified 10/09/23 10:18 Assessment & Plan Assessment & Plan (1) MDD (major depressive disorder), recurrent, severe, with psychosis: Status: Acute Code(s): F33.3 - Major depressive disorder, recurrent, severe with psychotic symptoms (2) Post traumatic stress disorder (PTSD): Status: Acute Code(s): F43.10 - Post-traumatic stress disorder, unspecified (3) Opioid use disorder: Status: Acute Code(s): F11.90 - Opioid use, unspecified, uncomplicated (4) Cocaine use disorder: Status: Acute Code(s): F14.10 - Cocaine abuse, uncomplicated (5) Crohn's disease: Status: Acute Code(s): K50.90 - Crohn's disease, unspecified, without complications (6) Colostomy in place: Status: Acute Code(s): Z93.3 - Colostomy status (7) Ileostomy in place: Status: Acute Code(s): Z93.2 - Ileostomy status Plan Patient is a 48-year-old male with history of depression, opioid/cocaine abuse, Crohn's disease large bowel obstruction due to sigmoid stricture s/p colostomy, multiple psychiatric hospitalizations who presented to the ED for intentional drug overdose. Patient was found unresponsive on the back porch of a stranger's house after having injected cocaine/heroin into his neck. Patient was given Narcan and brought to the hospital. Patient reports that he intentionally overdosed in a suicide attempt following relational strife with his and being kicked out of the house. He was medically admitted and treated for rhabdomyolysis. Patient medically cleared and presents to for psychiatric admission. Patient reports that up until about 5 days ago he was doing well, good mood, taking his medications regularly and remain sober. Patient got into an argument with his , the details of which he did not disclose, and got kicked out of the house. Patient said that this triggered strong emotional response and he relapsed for the past 5 days; with continued depression and falling into despair patient got suicidal and intentionally overdosed on heroin cocaine. Patient remains depressed with intermittent suicidality present; he asks to get on methadone which he was on years ago, saying he needs this initially to help him stay sober and will get off it later on. He is amenable to medication adjustments, increasing antidepressants. Formulation/clinical reasoning: Will continue home medication; patient asking to be started on methadone which he has been on in the past to help him remain sober Continues to have SI though seems mostly related to being discharged to homelessness Will hold off increasing antidepressants for now since patient was on these doses for quite awhile, doing well hospital course: 10/12 Patient more open today. Shares more history. Says his girlfriend from cancer May 06; at that time he was hospitalized. He was doing better for while but got depressed again and was psychiatrically hospitalized at [facility] early this September. When he was discharged she went back to his female friend's house where he had been living in [place] but when he got there she told him he had a move out with little explanation. He said that is when he relapsed once on the street. Patient said because of the [facility] hospitalization he missed his surgical appointment to have his colostomy reversed. His worry is that if he is discharged back to the street, he will again relapse and again miss this important surgery. Patient says suicidality comes and goes but increases when he thinks of being homeless. -patient complained of some discomfort an anal region which resolved on its own after a shower 10/13 still depressed but slowly improving. Agrees to behavioral activation and push himself to attend groups. Increased mirtazapine to 15 mg which he agrees can be increased further if needed. Increasing methadone to 30 mg which he feels should be sufficient for staying sober. 10/17 increase Remeron to 30 mg; has outpatient appointment with surgical team WednesdayOctober 21 which he wants to attend. 10/18 patient remains depressed but says he stable; no SI and future oriented. He continues to want to discharge Wednesday to go to pre surgery appointment. Agrees to switching Wellbutrin to immediate release given poor absorption in the colon -team working on discharge planning in finding some housing until patient can get surgery. 10/19 patient depressed, but still feels stable, safe and wants to go to appointment on Wednesday, hopeful of getting some type of housing but saying he will take his chances if not. Hoping that immediate release Wellbutrin can make a difference; consider increasing it to t.i.d. 10/20 Patient tells casualty underwriter he wants to discharge tomorrow to his appointment. However also in the morning, he told a nurse that he plans to overdose after his appointment. [employer] Consultant returned later in the day to discuss this with patient who said that he was feeling upset and angry this morning and did say that however those feelings are gone now and he just wants to go to his pre-surgical appointment; he says that if they are not able to admit him for surgery at this appointment, he will just go and get a hotel until surgery is ready, saying he has enough money. Universal [employer] Consultant came back again to discuss this further and patient said something to the effect of okay let me be open... There is a fight in my head whether to do something stupid or not... He goes on to say that he is worried that once discharged, he will cave in, use, get very angry at himself and intentionally overdose. He says I know depression will always be there... Sometimes I can control it... Patient says he does not want to , and very much wants surgery but he is currently worried about his ability to remain safe. He agrees that if he were able to get into a medical respite that would make a tremendous difference as he would be in a structured environment. 10/21 same presentation; continue current treatment plan [employer] Consultant and mental health social worker communicating with [facility] regarding dispo; rescheduled pre-surgical appointment -casualty underwriter agrees that patient wants to be safe and wants to get surgery; however given his ostomy, he has not been digesting antidepressant medication, leaving his depression poorly treated; his medication was recently switched to immediate release to help with absorption and hopefully to help with depression. It is casualty underwriter's opinion that for now, it is in patient's best interest to remain on the unit to help establish a more supportive disposition. Although patient very much does not want to miss his appointment this Wednesday, he is amenable to staying longer and getting the appointment rescheduled for the same reason. 10/24 Patient remains depressed but overall doing better in the sense that suicidality has resolved he is future oriented. He is focused on keeping himself stable and safe so he can go to his pre surgery appointment and then get surgery for reversal of colostomy. He does not think that the Wellbutrin immediate release has made any difference in his mood but patient remains pushing himself to be engaged in his grateful for help received. Discussed disposition options and patient amenable to respite; he will also continue to follow up with [facility]. Patient does have a friend in the community who might have a place that he can stay and is looking into that as well. Universal Branch Consultant discussed case with nurse who knows him from past admissions at other hospital where he got ECT; this is a consideration given that his depression remains untreated due to poor absorption of antidepressants. 10/25 remains depressed but no SI; discussed history of ECT and although it was helpful, patient had bad experience with 1 of the trials and does not want ECT. Agrees to increase in Wellbutrin 10/26 hopefully increased Wellbutrin to 150 mg t.i.d. may be having some effect 10/30/2023: No changes to current plan 10/31/2023: Anbesol and amoxicillin for tooth/gum infection 10/31 Patient remains doing overall little better and depression remains lessened. Discussed ostomy bag and how Ostomy bag is anatomically located in a difficult place for patient to apply himself. Universal Branch Consultant discussed with wound care nurse felt it might be possible and attempted to teach patient; she felt that he was able to get much of a done however it was still anatomically located too far for him to fully do by himself and he remains needing assistance. She said she will continue working with him, practicing with him. -Social work setting up application to [facility] respite; casualty underwriter calling medical respite -Over the weekend patient had dental tooth pain; was started on antibiotic by covering provider 11/01 patient remained psychiatrically stable with improved mood; safe, no SI and future oriented. Patient continues to practice working on his ostomy with wound nurse. -casualty underwriter discussed case with medical respite who agrees to look again at his application; however they informed that there are currently no beds available, nor will there be any time soon. Today patient decided he was not going to go to [facility] respite and refused phone appointment with them. Patient said it was only for 6 days anyway so he did not want to bother (even though casualty underwriter explains the 6 days be enough time for him to get to his appointment). Patient also refused to go to [facility], medical rehab establishment. He said he had been there before and it is a dump... Universal Branch Consultant discussed that while that may be true, it is temporary and can not be worse than a residential since they do actually have medical staff assisting with medical issues. Patient declined. Instead he said he will just continue to look for his own place, even if that has a residential and that he will manage on his own; while he expresses gratitude for help received, he said he does not need casualty underwriter/social work's help further and this area. He continues to call his friend asking if he can stay there. Patient has full capacity to make medical decisions for himself; although he has chronic depression and passive SI, he denies any actual SI and is not imminent risk for harm to self or others. He remains future oriented and very much wants to get surgery. Universal Branch Consultant and team will continue to explore options with the few days remaining of this admission. However, as patient has refused both respite and medical rehab facility and other offers for dispo help, casualty underwriter understands that patient is able to make his own decisions in this area. 11/02 Patient again expressed gratitude for help received; he says he is continuing to apply his friend Maday to get her to let him stay with her. Says they used to be romantically involved but his substance abuse room in the relationship. She remains good friends with him in supportive but she is hesitant to let him stay with her because she does not want to risk him using in her apartment. He says he will continue to hope she will given; she said she would think about it. Universal Branch Consultant and team pursued another option however that to proved unavailable. Patient remains optimistic that he will stay sober while waiting for surgery. -Left molar continues to hurt; casualty underwriter will place consult 11/03 continue current treatment plan; says tooth pain is a little better that hospitalist came to see him; reviewed findings; says tramadol helps 11/07 pt very anxious, very worried about relapse if homeless which he is sure to lead to SI. Universal Branch Consultant discussing with Surgical team who is trying to expedite date of Surgery to November 15, aware of situation SW reaching out to [facility] to see if any other options pt asks for Methadone to be increased. 11/08 patient remained stable, mood improved and no SI; anxious about homelessness/surgery 11/09 Patient continued to deny any SI and has not had any for a while. He is depressed and anxious but feels safe; he is worried about relapsing before surgery but is trying to be hopeful about staying sober until then. He is not sure where he is going to go, likely to hotel. He says his friend is willing to help him get from place to place including to surgery but will not let him stay there. Universal Branch Consultant reaching out to outpatient, community provider Dr. Pimentel to review resources -while patient will likely continue to struggle depression and is vulnerable to both relapse and decompensation, he is currently stable, with improved mood and no SI. Patient has refused multiple treatment options including programs for substance abuse while waiting for surgery, refusing respite, refusing [facility] respite... And instead patient prefers to make it on his own until surgery. He now has a new ACCS team which improves his outpatient resources. Working with wound nurse and patient will have plenty of supplies for wound care. Still concern about him attending to his ostomy. Universal Branch Consultant trying find accommodations. Plan: CV Q 15 minute checks Continue Bupropion Immediate Release 150 mg T.i.d.; due to ostomy, long-acting not absorbed Continue Bupropion Immediate Release 150 mg T.i.d.; due to ostomy, long-acting not absorbed DC bupropion HCl XL 300 mg daily plus bupropion HCl XL 150 mg daily Increased to methadone 50 mg daily; patient asked for increase due to cravings Continue chlorpromazine 100 mg PO TID Continue clonazepam 2 mg PO BID Continue mirtazapine 30mg PO BEDTIME; may titrate further for continued depression Added clonidine p.r.n. for anxiety melatonin 3 mg PO BEDTIME PRN Continue loperamide 2 mg PO TID Continue Xarelto 20 mg PO DAILY@1800 Continue lansoprazole 30 mg Capsule,Delayed Release(Dr/Ec) daily Continue methenamine mandelate 1 g PO QID Patient educated on: diagnosis, medication risk/benefits, substance abuse and medical condition [facility] surgeon Dr. Myla Shi appointment set for October 21 10:45 regarding ostomy: both ileostomy and colostomy in place. Both are viable appearing. Can change ileostomy appliance every 3-4 days and as needed. Empty appliance Q shift and as needed. Can keep the colostomy covered with dry dressing such as allevyn pads or nonwoven sponge, as it is being proximally diverted. He has a very large parastomal hernia at the ileostomy site which is soft and reducible, no current intervention needed. consulted the welder operatorFalguni to assist with education and appliance changes. Patient educated on: diagnosis, medication risk/benefits, substance abuse and medical condition Informed Consent: understands Reason for continued inpatient stay Substantial Risk for: stable for discharge Time Spent With Patient Time: Total time managing care of this patient today ____ minutes.
[2023-11-11] MEDS: methADONE HCl 20 MG/2 ML ORAL.CONC 50 MG PO (07:51)
[2023-11-11 08:00] VITALS: BP 133/81; PULSE 96; RESP 17; TEMP 36.6; O2SAT 96
[2023-11-11] MEDS: Omeprazole 20 MG CAPSULE.DR PO (08:03)
[2023-11-11] MEDS: Loperamide HCl 2 MG CAPSULE PO ×3 (08:03→20:44)
[2023-11-11] MEDS: buPROPion HCL 75 MG TABLET 150 MG PO ×3 (08:03→16:54)
[2023-11-11] MEDS: chlorproMAZINE HCl 100 MG TABLET PO ×3 (08:04→20:44)
[2023-11-11] MEDS: clonazePAM 0.5 MG TABLET PO ×2 (08:04→20:44)
[2023-11-11 11:55] VITALS: BP 130/85
[2023-11-11] MEDS: cloNIDine HCL 0.1 MG TABLET PO (11:55)
[2023-11-11] MEDS: hydrOXYzine HCL 25 MG TABLET PO (11:56)
[2023-11-11 15:11] VITALS: BMI 26.4
[2023-11-11] MEDS: Rivaroxaban 20 MG TABLET PO (17:00)
--- NOTE | 2023-11-11 17:49 | HO.PSYCHPN ---
Subjective Subjective Date of Service: 11/11/23 Reason For Visit: opiate overdose with suicidal intent Interim History: Met with patient; discussed with team Patient's surgery will not be able to take place for another few weeks. System Safety Engineer discussed case with Dr. Pimentel who has been able to secure resources for patient including having him go to [facility] Wednesday where she will personally meet him, help him get his ostomy bag changed and will continue to help him medically until surgery occurs. Discussed with patient who is very grateful and optimistic. Says his friend will be picking him up, taking him to get medications and then taking him to the prison. Thoroughly reviewed plan with patient who says he will go and meet Dr. Pimentel on Wednesday as planned. Mental Status Exam Mental Status Exam Narrative: Pt is alert and oriented; behavior is cooperative, calm; patient is not in distress; dressed in casual attire, adequately groomed; mood is described as ok and affect congruent, brighter; eye contact appropriate; Speech is normal volume, rate; some psychomotor retardation present but less; thought process is organized and goal directed; Thought content is on medical treatment, psychosocial stressors; otherwise pertinent to relevant topics and without any delusional content, paranoid ideations or grandiosity; no SI; no HI. Denies AVH. There is no evidence of perceptual disturbance. Patients insight and judgment fair. Diagnostics Vital Signs (24Hr): Vital Signs - 24 hr 11/10/23 20:00 11/11/23 08:00 11/11/23 11:55 Temperature 97.6 F 97.8 F Pulse Rate 82 96 Respiratory Rate 17 17 Blood Pressure 103/57 L 133/81 130/85 Pulse Oximetry 97 96 Oxygen Delivery Method Room Air [place] Nasal Cannula Room Air BMI result Body Mass Index 26.4 Medications Medications Current Medications Acetaminophen (Acetaminophen 325 Mg Tablet) 650 mg PO Q6H PRN PRN Reason: Headache/Pain Mild Scale (1-3) Last Admin: 11/04/23 15:14 Dose: 650 mg Al Hydroxide/Mg Hydroxide (Magnesium Hydrox/Alum Hydrox 30 Ml Oral.Susp) 30 ml PO Q6H PRN PRN Reason: Heartburn/Nausea Last Admin: 10/28/23 14:04 Dose: 30 ml Benzocaine (Benzocaine 20 % Oral Gel 9 Gm Tube) 1 appl MUCOUS MEM QID PRN; Protocol PRN Reason: toothache Last Admin: 11/02/23 15:34 Dose: 1 appl Benzonatate (Benzonatate 100 Mg Capsule) 100 mg PO TID PRN PRN Reason: Cough Bupropion HCl (Bupropion Hcl 75 Mg Tablet) 150 mg PO TID@0900,1300,1700 [facility] Last Admin: 11/11/23 16:54 Dose: 150 mg Chlorpromazine HCl (Chlorpromazine Hcl 100 Mg Tablet) 100 mg PO TID [facility] Last Admin: 11/11/23 14:17 Dose: 100 mg Clonazepam (Clonazepam 0.5 Mg Tablet) 0.5 mg PO BID [facility] Last Admin: 11/11/23 08:04 Dose: 0.5 mg Clonidine HCl (Clonidine Hcl 0.1 Mg Tablet) 0.1 mg PO Q4H PRN; Protocol PRN Reason: moderate anxiety Last Admin: 11/11/23 11:55 Dose: 0.1 mg Docusate Sodium (Docusate Sodium 100 Mg Capsule) 100 mg PO DAILY PRN PRN Reason: Constipation Hydroxyzine HCl (Hydroxyzine Hcl 25 Mg Tablet) 25 mg PO BID PRN PRN Reason: itch Last Admin: 11/11/23 11:56 Dose: 25 mg Ibuprofen (Ibuprofen 800 Mg Tablet) 800 mg PO Q8H PRN PRN Reason: toothache Last Admin: 11/07/23 20:23 Dose: 800 mg Loperamide HCl (Loperamide Hcl 2 Mg Capsule) 2 mg PO TID [facility] Last Admin: 11/11/23 14:17 Dose: 2 mg Magnesium Hydroxide (Milk Of Magnesia 30 Ml Oral.Susp) 30 ml PO DAILY PRN PRN Reason: Constipation Melatonin (Melatonin 3 Mg Tablet) 6 mg PO BEDTIME PRN PRN Reason: Insomnia Last Admin: 11/07/23 20:25 Dose: 6 mg Methadone HCl (Methadone Hcl 20 Mg/2 Ml Oral.Conc) 50 mg PO DAILY@0800 [facility] Last Admin: 11/11/23 07:51 Dose: 50 mg Mirtazapine (Mirtazapine 30 Mg Tablet) 30 mg PO BEDTIME [facility] Last Admin: 11/10/23 20:34 Dose: 30 mg Multi-Ingred Cream/Lotion/Oil/Oint (Mineral Oil/Petrolatum,White 106 Gm Tube) 1 appl TOPICAL TID [facility]; Protocol Last Admin: 11/11/23 14:19 Dose: Not Given Nicotine (Nicotine 21 Mg Patch.Td24) 21 mg TRANSDERMA DAILY PRN PRN Reason: nicotine craving Nicotine Polacrilex (Nicotine Polacrilex 2 Mg Gum) 4 mg BUCCAL Q2H PRN PRN Reason: Nicotine Cravings Omeprazole (Omeprazole 20 Mg Capsule.Dr) 20 mg PO DAILY@0630 [facility] Last Admin: 11/11/23 08:03 Dose: 20 mg Rivaroxaban (Rivaroxaban 20 Mg Tablet) 20 mg PO DAILY@1800 [facility] Last Admin: 11/11/23 17:00 Dose: 20 mg Tramadol HCl (Tramadol Hcl 50 Mg Tablet) 25 mg PO Q6H PRN PRN Reason: Pain, Moderate(Pain Scale 4-6) Last Admin: 11/07/23 20:23 Dose: 25 mg Trazodone HCl (Trazodone Hcl 50 Mg Tablet) 50 mg PO BEDTIME MRX1 PRN PRN Reason: Insomnia Last Admin: 11/10/23 20:34 Dose: 50 mg Allergies Allergies Allergy/AdvReac Type Severity Reaction Status Date / Time haloperidol [From Haldol] AdvReac see note Verified 10/09/23 10:18 Assessment & Plan Assessment & Plan (1) MDD (major depressive disorder), recurrent, severe, with psychosis: Status: Acute Code(s): F33.3 - Major depressive disorder, recurrent, severe with psychotic symptoms (2) Post traumatic stress disorder (PTSD): Status: Acute Code(s): F43.10 - Post-traumatic stress disorder, unspecified (3) Opioid use disorder: Status: Acute Code(s): F11.90 - Opioid use, unspecified, uncomplicated (4) Cocaine use disorder: Status: Acute Code(s): F14.10 - Cocaine abuse, uncomplicated (5) Crohn's disease: Status: Acute Code(s): K50.90 - Crohn's disease, unspecified, without complications (6) Colostomy in place: Status: Acute Code(s): Z93.3 - Colostomy status (7) Ileostomy in place: Status: Acute Code(s): Z93.2 - Ileostomy status Plan Patient is a 48-year-old male with history of depression, opioid/cocaine abuse, Crohn's disease large bowel obstruction due to sigmoid stricture s/p colostomy, multiple psychiatric hospitalizations who presented to the ED for intentional drug overdose. Patient was found unresponsive on the back porch of a stranger's house after having injected cocaine/heroin into his neck. Patient was given Narcan and brought to the hospital. Patient reports that he intentionally overdosed in a suicide attempt following relational strife with his and being kicked out of the house. He was medically admitted and treated for rhabdomyolysis. Patient medically cleared and presents to for psychiatric admission. Patient reports that up until about 5 days ago he was doing well, good mood, taking his medications regularly and remain sober. Patient got into an argument with his , the details of which he did not disclose, and got kicked out of the house. Patient said that this triggered strong emotional response and he relapsed for the past 5 days; with continued depression and falling into despair patient got suicidal and intentionally overdosed on heroin cocaine. Patient remains depressed with intermittent suicidality present; he asks to get on methadone which he was on years ago, saying he needs this initially to help him stay sober and will get off it later on. He is amenable to medication adjustments, increasing antidepressants. Formulation/clinical reasoning: Will continue home medication; patient asking to be started on methadone which he has been on in the past to help him remain sober Continues to have SI though seems mostly related to being discharged to homelessness Will hold off increasing antidepressants for now since patient was on these doses for quite awhile, doing well hospital course: 10/12 Patient more open today. Shares more history. Says his girlfriend from cancer May 06; at that time he was hospitalized. He was doing better for while but got depressed again and was psychiatrically hospitalized at [facility] early this September. When he was discharged she went back to his female friend's house where he had been living in [place] but when he got there she told him he had a move out with little explanation. He said that is when he relapsed once on the street. Patient said because of the [facility] hospitalization he missed his surgical appointment to have his colostomy reversed. His worry is that if he is discharged back to the street, he will again relapse and again miss this important surgery. Patient says suicidality comes and goes but increases when he thinks of being homeless. -patient complained of some discomfort an anal region which resolved on its own after a shower 10/13 still depressed but slowly improving. Agrees to behavioral activation and push himself to attend groups. Increased mirtazapine to 15 mg which he agrees can be increased further if needed. Increasing methadone to 30 mg which he feels should be sufficient for staying sober. 10/17 increase Remeron to 30 mg; has outpatient appointment with surgical team WednesdayOctober 21 which he wants to attend. 10/18 patient remains depressed but says he stable; no SI and future oriented. He continues to want to discharge Wednesday to go to pre surgery appointment. Agrees to switching Wellbutrin to immediate release given poor absorption in the colon -team working on discharge planning in finding some housing until patient can get surgery. 10/19 patient depressed, but still feels stable, safe and wants to go to appointment on Wednesday, hopeful of getting some type of housing but saying he will take his chances if not. Hoping that immediate release Wellbutrin can make a difference; consider increasing it to t.i.d. 10/20 Patient tells comic book writer he wants to discharge tomorrow to his appointment. However also in the morning, he told a nurse that he plans to overdose after his appointment. System Safety Engineer returned later in the day to discuss this with patient who said that he was feeling upset and angry this morning and did say that however those feelings are gone now and he just wants to go to his pre-surgical appointment; he says that if they are not able to admit him for surgery at this appointment, he will just go and get a hotel until surgery is ready, saying he has enough money. System Safety Engineer came back again to discuss this further and patient said something to the effect of okay let me be open... There is a fight in my head whether to do something stupid or not... He goes on to say that he is worried that once discharged, he will cave in, use, get very angry at himself and intentionally overdose. He says I know depression will always be there... Sometimes I can control it... Patient says he does not want to , and very much wants surgery but he is currently worried about his ability to remain safe. He agrees that if he were able to get into a medical respite that would make a tremendous difference as he would be in a structured environment. 10/21 same presentation; continue current treatment plan System Safety Engineer and rn social services communicating with [facility] regarding dispo; rescheduled pre-surgical appointment -comic book writer agrees that patient wants to be safe and wants to get surgery; however given his ostomy, he has not been digesting antidepressant medication, leaving his depression poorly treated; his medication was recently switched to immediate release to help with absorption and hopefully to help with depression. It is comic book writer's opinion that for now, it is in patient's best interest to remain on the unit to help establish a more supportive disposition. Although patient very much does not want to miss his appointment this Wednesday, he is amenable to staying longer and getting the appointment rescheduled for the same reason. 10/24 Patient remains depressed but overall doing better in the sense that suicidality has resolved he is future oriented. He is focused on keeping himself stable and safe so he can go to his pre surgery appointment and then get surgery for reversal of colostomy. He does not think that the Wellbutrin immediate release has made any difference in his mood but patient remains pushing himself to be engaged in his grateful for help received. Discussed disposition options and patient amenable to respite; he will also continue to follow up with [facility]. Patient does have a friend in the community who might have a place that he can stay and is looking into that as well. System Safety Engineer discussed case with nurse who knows him from past admissions at other hospital where he got ECT; this is a consideration given that his depression remains untreated due to poor absorption of antidepressants. 10/25 remains depressed but no SI; discussed history of ECT and although it was helpful, patient had bad experience with 1 of the trials and does not want ECT. Agrees to increase in Wellbutrin 10/26 hopefully increased Wellbutrin to 150 mg t.i.d. may be having some effect 10/30/2023: No changes to current plan 10/31/2023: Anbesol and amoxicillin for tooth/gum infection 10/31 Patient remains doing overall little better and depression remains lessened. Discussed ostomy bag and how Ostomy bag is anatomically located in a difficult place for patient to apply himself. System Safety Engineer discussed with wound care nurse felt it might be possible and attempted to teach patient; she felt that he was able to get much of a done however it was still anatomically located too far for him to fully do by himself and he remains needing assistance. She said she will continue working with him, practicing with him. -Social work setting up application to [facility] respite; comic book writer calling medical respite -Over the weekend patient had dental tooth pain; was started on antibiotic by covering provider 11/01 patient remained psychiatrically stable with improved mood; safe, no SI and future oriented. Patient continues to practice working on his ostomy with wound nurse. -comic book writer discussed case with medical respite who agrees to look again at his application; however they informed that there are currently no beds available, nor will there be any time soon. Today patient decided he was not going to go to [facility] respite and refused phone appointment with them. Patient said it was only for 6 days anyway so he did not want to bother (even though comic book writer explains the 6 days be enough time for him to get to his appointment). Patient also refused to go to [facility], medical rehab establishment. He said he had been there before and it is a dump... System Safety Engineer discussed that while that may be true, it is temporary and can not be worse than a prison since they do actually have medical staff assisting with medical issues. Patient declined. Instead he said he will just continue to look for his own place, even if that has a prison and that he will manage on his own; while he expresses gratitude for help received, he said he does not need comic book writer/social work's help further and this area. He continues to call his friend asking if he can stay there. Patient has full capacity to make medical decisions for himself; although he has chronic depression and passive SI, he denies any actual SI and is not imminent risk for harm to self or others. He remains future oriented and very much wants to get surgery. System Safety Engineer and team will continue to explore options with the few days remaining of this admission. However, as patient has refused both respite and medical rehab facility and other offers for dispo help, comic book writer understands that patient is able to make his own decisions in this area. 11/02 Patient again expressed gratitude for help received; he says he is continuing to apply his friend Maday to get her to let him stay with her. Says they used to be romantically involved but his substance abuse room in the relationship. She remains good friends with him in supportive but she is hesitant to let him stay with her because she does not want to risk him using in her apartment. He says he will continue to hope she will given; she said she would think about it. System Safety Engineer and team pursued another option however that to proved unavailable. Patient remains optimistic that he will stay sober while waiting for surgery. -Left molar continues to hurt; comic book writer will place consult 11/03 continue current treatment plan; says tooth pain is a little better that hospitalist came to see him; reviewed findings; says tramadol helps 11/07 pt very anxious, very worried about relapse if homeless which he is sure to lead to SI. System Safety Engineer discussing with Surgical team who is trying to expedite date of Surgery to November 15, aware of situation SW reaching out to [facility] to see if any other options pt asks for Methadone to be increased. 11/08 patient remained stable, mood improved and no SI; anxious about homelessness/surgery 11/09 Patient continued to deny any SI and has not had any for a while. He is depressed and anxious but feels safe; he is worried about relapsing before surgery but is trying to be hopeful about staying sober until then. He is not sure where he is going to go, likely to hotel. He says his friend is willing to help him get from place to place including to surgery but will not let him stay there. System Safety Engineer reaching out to outpatient, community provider Dr. Pimentel to review resources -while patient will likely continue to struggle depression and is vulnerable to both relapse and decompensation, he is currently stable, with improved mood and no SI. Patient has refused multiple treatment options including programs for substance abuse while waiting for surgery, refusing respite, refusing [facility] respite... And instead patient prefers to make it on his own until surgery. He now has a new ACCS team which improves his outpatient resources. Working with wound nurse and patient will have plenty of supplies for wound care. Still concern about him attending to his ostomy. System Safety Engineer trying find accommodations. 11/10 Patient's surgery will not be able to take place for another few weeks. System Safety Engineer discussed case with Dr. Pimentel who has been able to secure resources for patient including having him go to [facility] Wednesday morning where she will personally meet him, help him get his ostomy bag changed and will continue to help him medically until surgery occurs. Discussed with patient who is very grateful and optimistic. Says his friend will be picking him up, taking him to get medications and then taking him to the prison. Thoroughly reviewed plan with patient who says he will go and meet Dr. Pimentel on Wednesday as planned. Discussed safety plan and patient feels confident he would present if feeling unsafe. Patient has long history of depression, chronically intermittent SI and substance abuse and these issues will not quickly resolve and certainly not with longer stay on inpatient unit. Patient is currently much improved, with improved mood and is overall doing much better than on admission. While patient has several ongoing psychosocial stressors and remains vulnerable to both relapse and decompensation, he is currently optimistic and grateful for resources set up for him. Patient reports that he is safe and without any SI plans to make outpatient appointments and presents for surgery as scheduled. Patient is not in imminent risk for harm to self or others and appropriate to return to the community for treatment. Plan: CV Q 15 minute checks Continue Bupropion Immediate Release 150 mg T.i.d.; due to ostomy, long-acting not absorbed Continue Bupropion Immediate Release 150 mg T.i.d.; due to ostomy, long-acting not absorbed DC bupropion HCl XL 300 mg daily plus bupropion HCl XL 150 mg daily Increased to methadone 50 mg daily; patient asked for increase due to cravings Continue chlorpromazine 100 mg PO TID Continue clonazepam 2 mg PO BID Continue mirtazapine 30mg PO BEDTIME; may titrate further for continued depression Added clonidine p.r.n. for anxiety melatonin 3 mg PO BEDTIME PRN Continue loperamide 2 mg PO TID Continue Xarelto 20 mg PO DAILY@1800 Continue lansoprazole 30 mg Capsule,Delayed Release(Dr/Ec) daily Continue methenamine mandelate 1 g PO QID Patient educated on: diagnosis, medication risk/benefits, substance abuse and medical condition [facility] surgeon Dr. Myla Shi appointment set for October 21 10:45 regarding ostomy: both ileostomy and colostomy in place. Both are viable appearing. Can change ileostomy appliance every 3-4 days and as needed. Empty appliance Q shift and as needed. Can keep the colostomy covered with dry dressing such as allevyn pads or nonwoven sponge, as it is being proximally diverted. He has a very large parastomal hernia at the ileostomy site which is soft and reducible, no current intervention needed. consulted the rating specialistFalguni to assist with education and appliance changes. Patient educated on: diagnosis, medication risk/benefits, substance abuse, therapeutic strategies and medical condition Informed Consent: understands Reason for continued inpatient stay Substantial Risk for: stable for discharge Time Spent With Patient Time: Total time managing care of this patient today ____ minutes.
[2023-11-11 20:00] VITALS: BP 117/70; PULSE 75; RESP 18; TEMP 36.4; O2SAT 98
[2023-11-11] MEDS: Mineral Oil/Petrolatum,White 106 GM Tube 1 APPL TOPICAL (20:44)
[2023-11-11] MEDS: Mirtazapine 30 MG TABLET PO (20:44)
[2023-11-11] MEDS: Acetaminophen 325 MG TABLET 650 MG PO (20:45)
--- NOTE | 2023-11-11 23:52 | PM.PSYDC ---
DS: Providers Provider Date of Service: 11/12/23 Date of admission: 10/11/23 16:12 Date of discharge: 11/12/23 Primary care physician: [facility] Attending physician on admission: Khadar Iyer Consults: 10/13/23 11:34 Consult to General Surgery Routine Consulting Provider: [facility] Reason for consultation: pt has ostomy; need recs on how to clean, manage; hosptialist defered 10/13/23 12:49 Consult to Ostomy Care Routine 11/04/23 09:59 Consult to Hospitalist Routine Comment: Consulting Provider: Hospitalist Reason For Exam: Left lower molar pain Attending physician on discharge: Khadar Iyer DS: Diagnosis Discharge Diagnosis (1) MDD (major depressive disorder), recurrent, severe, with psychosis: Status: Acute (2) Post traumatic stress disorder (PTSD): Status: Acute (3) Opioid use disorder: Status: Acute (4) Cocaine use disorder: Status: Acute (5) Crohn's disease: Status: Acute (6) Colostomy in place: Status: Acute (7) Ileostomy in place: Status: Acute DS: Medications Discharge Medications Home Medications: Previous Rx's ?Medication ?Instructions ?Recorded acetaminophen 325 mg tablet 650 mg (2 x 325 mg) PO Q6H PRN 10/20/23 Headache/Pain Mild Scale (1-3) #0 tabs mirtazapine 30 mg tablet 30 mg PO BEDTIME 30 days #30 tabs 10/20/23 bupropion HCl 75 mg tablet 150 mg (2 x 75 mg) PO 11/11/23 TID@0900,1300,1700 30 days #180 tabs chlorpromazine 100 mg tablet 100 mg PO TID 30 days #90 tabs 11/11/23 clonazepam 0.5 mg tablet 0.5 mg PO BID 15 days #30 tabs 11/11/23 hydroxyzine HCl 25 mg tablet 25 mg PO BID PRN itch 30 days #60 11/11/23 tabs lansoprazole 30 mg capsule,delayed 30 mg PO DAILY@0630 30 days #30 11/11/23 release caps loperamide 2 mg capsule 2 mg PO TID 30 days #90 caps 11/11/23 melatonin 3 mg tablet 3 mg PO BEDTIME PRN insomnia 30 11/11/23 days #30 tabs methadone 10 mg/mL oral 50 mg (5 mL) PO DAILY@0800 #0 mL 11/11/23 concentrate (Methadose) ostomy supplies #1 ea 11/11/23 rivaroxaban 20 mg tablet (Xarelto) 20 mg PO DAILY@1800 30 days #30 11/11/23 tabs trazodone 50 mg tablet 50 mg PO BEDTIME PRN Insomnia 30 11/11/23 days #30 tabs Mental Status Exam Mental Status Exam Narrative: Pt is alert and oriented; behavior is cooperative, calm; patient is not in distress; dressed in casual attire, adequately groomed; mood is described as ok and affect congruent, brighter; eye contact appropriate; Speech is normal volume, rate; some psychomotor retardation present but less; thought process is organized and goal directed; Thought content is on medical treatment, psychosocial stressors; otherwise pertinent to relevant topics and without any delusional content, paranoid ideations or grandiosity; no SI; no HI. Denies AVH. There is no evidence of perceptual disturbance. Patients insight and judgment fair. DS: Summary Hospital Course Hospital Course: Patient is a 48-year-old male with history of depression, opioid/cocaine abuse, Crohn's disease large bowel obstruction due to sigmoid stricture s/p colostomy, multiple psychiatric hospitalizations who presented to the ED for intentional drug overdose. Patient was found unresponsive on the back porch of a stranger's house after having injected cocaine/heroin into his neck. Patient was given Narcan and brought to the hospital. Patient reports that he intentionally overdosed in a suicide attempt following relational strife with his and being kicked out of the house. He was medically admitted and treated for rhabdomyolysis. Patient medically cleared and presents to for psychiatric admission. Patient reports that up until about 5 days ago he was doing well, good mood, taking his medications regularly and remain sober. Patient got into an argument with his , the details of which he did not disclose, and got kicked out of the house. Patient said that this triggered strong emotional response and he relapsed for the past 5 days; with continued depression and falling into despair patient got suicidal and intentionally overdosed on heroin cocaine. Patient remains depressed with intermittent suicidality present; he asks to get on methadone which he was on years ago, saying he needs this initially to help him stay sober and will get off it later on. He is amenable to medication adjustments, increasing antidepressants. Formulation/clinical reasoning: Will continue home medication; patient asking to be started on methadone which he has been on in the past to help him remain sober Continues to have SI though seems mostly related to being discharged to homelessness Will hold off increasing antidepressants for now since patient was on these doses for quite awhile, doing well hospital course: 10/12 Patient more open today. Shares more history. Says his girlfriend from cancer May 06; at that time he was hospitalized. He was doing better for while but got depressed again and was psychiatrically hospitalized at [facility] early this September. When he was discharged she went back to his female friend's house where he had been living in [place] but when he got there she told him he had a move out with little explanation. He said that is when he relapsed once on the street. Patient said because of the [facility] hospitalization he missed his surgical appointment to have his colostomy reversed. His worry is that if he is discharged back to the street, he will again relapse and again miss this important surgery. Patient says suicidality comes and goes but increases when he thinks of being homeless. -patient complained of some discomfort an anal region which resolved on its own after a shower 10/13 still depressed but slowly improving. Agrees to behavioral activation and push himself to attend groups. Increased mirtazapine to 15 mg which he agrees can be increased further if needed. Increasing methadone to 30 mg which he feels should be sufficient for staying sober. 10/17 increase Remeron to 30 mg; has outpatient appointment with surgical team WednesdayOctober 21 which he wants to attend. 10/18 patient remains depressed but says he stable; no SI and future oriented. He continues to want to discharge Wednesday to go to pre surgery appointment. Agrees to switching Wellbutrin to immediate release given poor absorption in the colon -team working on discharge planning in finding some housing until patient can get surgery. 10/19 patient depressed, but still feels stable, safe and wants to go to appointment on Wednesday, hopeful of getting some type of housing but saying he will take his chances if not. Hoping that immediate release Wellbutrin can make a difference; consider increasing it to t.i.d. 10/20 Patient tells promotion writer he wants to discharge tomorrow to his appointment. However also in the morning, he told a nurse that he plans to overdose after his appointment. [employer] Driver returned later in the day to discuss this with patient who said that he was feeling upset and angry this morning and did say that however those feelings are gone now and he just wants to go to his pre-surgical appointment; he says that if they are not able to admit him for surgery at this appointment, he will just go and get a hotel until surgery is ready, saying he has enough money. Class B Truck Driver came back again to discuss this further and patient said something to the effect of okay let me be open... There is a fight in my head whether to do something stupid or not... He goes on to say that he is worried that once discharged, he will cave in, use, get very angry at himself and intentionally overdose. He says I know depression will always be there... Sometimes I can control it... Patient says he does not want to , and very much wants surgery but he is currently worried about his ability to remain safe. He agrees that if he were able to get into a medical respite that would make a tremendous difference as he would be in a structured environment. 10/21 same presentation; continue current treatment plan Class [employer] Truck Driver and social media campaign manager communicating with [facility] regarding dispo; rescheduled pre-surgical appointment -promotion writer agrees that patient wants to be safe and wants to get surgery; however given his ostomy, he has not been digesting antidepressant medication, leaving his depression poorly treated; his medication was recently switched to immediate release to help with absorption and hopefully to help with depression. It is promotion writer's opinion that for now, it is in patient's best interest to remain on the unit to help establish a more supportive disposition. Although patient very much does not want to miss his appointment this Wednesday, he is amenable to staying longer and getting the appointment rescheduled for the same reason. 10/24 Patient remains depressed but overall doing better in the sense that suicidality has resolved he is future oriented. He is focused on keeping himself stable and safe so he can go to his pre surgery appointment and then get surgery for reversal of colostomy. He does not think that the Wellbutrin immediate release has made any difference in his mood but patient remains pushing himself to be engaged in his grateful for help received. Discussed disposition options and patient amenable to respite; he will also continue to follow up with [facility]. Patient does have a friend in the community who might have a place that he can stay and is looking into that as well. Class B Truck Driver discussed case with nurse who knows him from past admissions at other hospital where he got ECT; this is a consideration given that his depression remains untreated due to poor absorption of antidepressants. 10/25 remains depressed but no SI; discussed history of ECT and although it was helpful, patient had bad experience with 1 of the trials and does not want ECT. Agrees to increase in Wellbutrin 10/26 hopefully increased Wellbutrin to 150 mg t.i.d. may be having some effect 10/30/2023: No changes to current plan 10/31/2023: Anbesol and amoxicillin for tooth/gum infection 10/31 Patient remains doing overall little better and depression remains lessened. Discussed ostomy bag and how Ostomy bag is anatomically located in a difficult place for patient to apply himself. Class [employer] Truck Driver discussed with wound care nurse felt it might be possible and attempted to teach patient; she felt that he was able to get much of a done however it was still anatomically located too far for him to fully do by himself and he remains needing assistance. She said she will continue working with him, practicing with him. -Social work setting up application to [facility]; promotion writer calling medical respite -Over the weekend patient had dental tooth pain; was started on antibiotic by covering provider 11/01 patient remained psychiatrically stable with improved mood; safe, no SI and future oriented. Patient continues to practice working on his ostomy with wound nurse. -promotion writer discussed case with medical respite who agrees to look again at his application; however they informed that there are currently no beds available, nor will there be any time soon. Today patient decided he was not going to go to [facility] respite and refused phone appointment with them. Patient said it was only for 6 days anyway so he did not want to bother (even though promotion writer explains the 6 days be enough time for him to get to his appointment). Patient also refused to go to [facility], medical rehab establishment. He said he had been there before and it is a dump... Class B Truck Driver discussed that while that may be true, it is temporary and can not be worse than a intermediate since they do actually have medical staff assisting with medical issues. Patient declined. Instead he said he will just continue to look for his own place, even if that has a intermediate and that he will manage on his own; while he expresses gratitude for help received, he said he does not need promotion writer/social work's help further and this area. He continues to call his friend asking if he can stay there. Patient has full capacity to make medical decisions for himself; although he has chronic depression and passive SI, he denies any actual SI and is not imminent risk for harm to self or others. He remains future oriented and very much wants to get surgery. Class B Truck Driver and team will continue to explore options with the few days remaining of this admission. However, as patient has refused both respite and medical rehab facility and other offers for dispo help, promotion writer understands that patient is able to make his own decisions in this area. 11/02 Patient again expressed gratitude for help received; he says he is continuing to apply his friend Maday to get her to let him stay with her. Says they used to be romantically involved but his substance abuse room in the relationship. She remains good friends with him in supportive but she is hesitant to let him stay with her because she does not want to risk him using in her apartment. He says he will continue to hope she will given; she said she would think about it. Class B Truck Driver and team pursued another option however that to proved unavailable. Patient remains optimistic that he will stay sober while waiting for surgery. -Left molar continues to hurt; promotion writer will place consult 11/03 continue current treatment plan; says tooth pain is a little better that hospitalist came to see him; reviewed findings; says tramadol helps 11/07 pt very anxious, very worried about relapse if homeless which he is sure to lead to SI. Class B Truck Driver discussing with Surgical team who is trying to expedite date of Surgery to November 15, aware of situation SW reaching out to [facility] to see if any other options pt asks for Methadone to be increased. 11/08 patient remained stable, mood improved and no SI; anxious about homelessness/surgery 11/09 Patient continued to deny any SI and has not had any for a while. He is depressed and anxious but feels safe; he is worried about relapsing before surgery but is trying to be hopeful about staying sober until then. He is not sure where he is going to go, likely to hotel. He says his friend is willing to help him get from place to place including to surgery but will not let him stay there. Class B Truck Driver reaching out to outpatient, community provider Dr. Pimentel to review resources -while patient will likely continue to struggle depression and is vulnerable to both relapse and decompensation, he is currently stable, with improved mood and no SI. Patient has refused multiple treatment options including programs for substance abuse while waiting for surgery, refusing respite, refusing [facility]... And instead patient prefers to make it on his own until surgery. He now has a new ACCS team which improves his outpatient resources. Working with wound nurse and patient will have plenty of supplies for wound care. Still concern about him attending to his ostomy. Class B Truck Driver trying find accommodations. 11/10 Patient's surgery will not be able to take place for another few weeks. Class B Truck Driver discussed case with Dr. Pimentel who has been able to secure resources for patient including having him go to [facility] Wednesday morning where she will personally meet him, help him get his ostomy bag changed and will continue to help him medically until surgery occurs. Patient ostomy recently changed and would nurse agrees it she remained stable until he can make appointment Wednesday. Discussed with patient who is very grateful and optimistic. Says his friend will be picking him up, taking him to get medications and then taking him to the intermediate. Thoroughly reviewed plan with patient who says he will go and meet Dr. Pimentel on Wednesday as planned. Discussed safety plan and patient feels confident he would present if feeling unsafe. Patient has long history of depression, chronically intermittent SI and substance abuse and these issues will not quickly resolve and certainly not with longer stay on inpatient unit. Patient is currently much improved, with improved mood and is overall doing much better than on admission. While patient has several ongoing psychosocial stressors and remains vulnerable to both relapse and decompensation, he is currently optimistic and grateful for resources set up for him. Patient reports that he is safe and without any SI plans to make outpatient appointments and presents for surgery as scheduled. Patient is not in imminent risk for harm to self or others and appropriate to return to the community for treatment. Status at Discharge Functional status at discharge: independent ambulation Overall status at discharge: patient is progressing back to baseline Time Spent with Patient Time attestation: Total time managing care of this patient today _50___ minutes. Time spent: Greater than 30 minutes Discharge Plan Discharge Anticipated Discharge Date/Time: 11/12/23 09:49 Patient Disposition: [facility] Discharge Diagnosis: MDD, recurrent, in partial remission Referrals: [facility] [Other] - 1 Week (Referral to [facility] for substance use treatment Patient declines referral) Dr. Albina Pimentel [Other] - 11/15/23 9:00 am (Patient should go to see Dr. Pimentel at [address] [place] [address] in [place], [place] on on Wednesday11/15/23 at 9:[address] Pimentel is expecting to see you at her office.) clinical and support options (FINANCIAL ACCOUNTING ANALYST) [facility] [Other] - 1 Week (Patient referred for step-down from hospital level of care to medical respite. ) [facility]: Methadone Clinic [Other] - 11/12/23 9:30 am (medication assisted treatment clinic Patient be at [facility] clinic for evaluation in person at 12:00 pm. ) [facility] [Other] - 1 Week ([facility] for [facility] ([facility]) [place], [place] Patient must present at 3:30 for intermediate placement ) [facility]: [facility] [Other] - 1 Week (Patient referred for [facility] step down. Patient informed staff at [facility] on not being willing to go to program ) [facility] (homelessness resource) [Other] - 1 Week (Homelessness resource Patient may self present for support in receiving meal, laundry, showering while at the [facility]. ) Clinical and Support Options (FINANCIAL ACCOUNTING ANALYST): Jyoti Burton [Other] - 11/16/23 4:00 pm (Initial diagnostic evaluation for therapy and medication management services. Appointment is in person at FINANCIAL ACCOUNTING ANALYST [facility] You must show up to this appointment to receive medication management services) [facility] [Other] - 11/12/23 1:50 pm (Patient must show up and line up between 1:50 pm and 2:00 pm to see if there is availability for placement at [facility]. bed availability is first come, first serve ) Clotilde Baca MD [Physician] - 11/25/23 9:30 am (in office) Myla Shi MD [Physician] - 11/12/23 11:00 am (in office Appointment has been cancelled and will be rescheduled per. Dr. Shi ) [facility] [Primary Care Provider] - 1 Week Discharge Medications: New acetaminophen 325 mg Tablet 650 mg PO Q6H PRN (Reason: Headache/Pain Mild Scale (1-3)) Qty: 0 0RF mirtazapine 30 mg Tablet 30 mg PO BEDTIME 30 Days Qty: 30 0RF (DME) ostomy supplies Misc See Rx Instructions .Route Qty: 1 1RF Rx Instructions: Coloplast Convex Pouches # [id number] quantity: 1 box (1 month) Coloplast Ostomy Belt # [id number] quantity: 3 (1 month) Coloplast Barrier Ring # [id number] quantity: 20 (1 month) Coloplast Powder # [id number] quantity: 2 (1 month) Coloplast Skin barrier wipes # [id number] quantity: 2 box (1 month) Coloplast Curved Elastic Strips # [id number] quantity: 1 box (1 month) bupropion HCl 75 mg Tablet 150 mg PO TID@0900,1300,1700 30 Days Qty: 180 0RF clonazepam 0.5 mg Tablet 0.5 mg PO BID 15 Days Qty: 30 1RF methadone [Methadose] 10 mg/mL Concentrate 50 mg PO DAILY@0800 Qty: 0 0RF Rx Instructions: Partial Fill upon patient request. trazodone 50 mg Tablet 50 mg PO BEDTIME PRN (Reason: Insomnia) 30 Days Qty: 30 0RF Continued chlorpromazine 100 mg tablet 100 mg PO TID 30 Days Qty: 90 0RF hydroxyzine HCl 25 mg tablet 25 mg PO BID PRN (Reason: itch) 30 Days Qty: 60 0RF loperamide 2 mg capsule 2 mg PO TID 30 Days Qty: 90 0RF melatonin 3 mg tablet 3 mg PO BEDTIME PRN (Reason: insomnia) 30 Days Qty: 30 0RF lansoprazole 30 mg Capsule,Delayed Release(Dr/Ec) 30 mg PO DAILY@0630 30 Days Qty: 30 0RF Xarelto 20 mg tablet 20 mg PO DAILY@1800 30 Days Qty: 30 0RF Discontinued nicotine (polacrilex) 2 mg gum 2 mg PO Q1H PRN (Reason: nicotine cravings) Rx Instructions: DNE 24 PIECES A DAY clonazepam 2 mg tablet 2 mg PO BID mirtazapine 15 mg tablet 7.5 mg PO BEDTIME lorazepam 1 mg tablet 1 mg PO TID PRN (Reason: anxiety) morphine 15 mg tablet 15 mg PO Q6H PRN (Reason: pain) bupropion HCl 300 mg tablet extended release 24 hr 300 mg PO DAILY Rx Instructions: with 150 mg bupropion HCl 150 mg tablet extended release 24 hr 150 mg PO DAILY Rx Instructions: with 300 mg acetaminophen 325 mg tablet 975 mg PO Q6H PRN (Reason: Pain, Mild (Pain Scale 1-3)) methenamine mandelate 1 gram Tablet 1 g PO QID Rx Instructions: administer after meals and at bedtime Discharge Orders: Discharge Order (Routine); Ordered 11/12/23 Ordered By: Khadar Iyer Diet: Regular diet Activity on Discharge: As tolerated Stand Alone Forms: Patient Portal Discharge page, Community Support Print Language: Bulgarian Care Plan Goals: Maintain mood and safe behaviors Take medications as prescribed Continue to pursue sobriety Practice coping skills Continue with outpatient providers and reach out to them as needed Health Concerns: Mood stability and behaviors Sobriety Hypertension Chron's disease Regarding both ileostomy and colostomy in place. Change ileostomy appliance every 3-4 days and as needed. Empty appliance BID and as needed. Keep the colostomy covered with dry dressing such as allevyn pads or nonwoven sponge, as it is being proximally diverted. Plan of Treatment: Follow up with your PCP, Surgical team, psychiatric provider and other outpatient providers regarding above concerns Take medications as prescribed Assessment: Risk assessment at time of discharge:? Patient was interviewed prior to discharge and found to be fully oriented and without any SI or HI. Patient has improved insight and judgment and wants to continue treatment. Patient is not in imminent risk of harm to self or others and has a safety plan that includes presenting to the closest ER or calling 911 if feeling unsafe.? Patient has been observed closely by nursing and unit staff throughout admission; patient has not engaged in any behaviors that suggest dangerousness to self or others and has demonstrated appropriate behaviors and impulse control Discharge Date/Time: 11/12/23 09:15
[2023-11-12] MEDS: Omeprazole 20 MG CAPSULE.DR PO (06:56)
[2023-11-12 08:00] VITALS: BP 118/79; PULSE 98; RESP 18; TEMP 37.1; O2SAT 99
[2023-11-12] MEDS: methADONE HCl 20 MG/2 ML ORAL.CONC 50 MG PO (08:16)
[2023-11-12] MEDS: clonazePAM 0.5 MG TABLET PO (08:18)
[2023-11-12] MEDS: buPROPion HCL 75 MG TABLET 150 MG PO (08:18)
[2023-11-12] MEDS: Loperamide HCl 2 MG CAPSULE PO (08:18)
[2023-11-12] MEDS: chlorproMAZINE HCl 100 MG TABLET PO (08:18)
[2023-11-12] MEDS: Naloxone HCl Nasal TAKE HOME 4 MG SPRAY 8 MG NOSTRILALT (08:19)
== END 2023-11-12 09:15 | disposition home or self-care (01) | DRG 751 ==
PROVIDERS: Admitting Provider Psychiatry & Neurology Psychiatry; Visit Provider Psychiatry & Neurology Psychiatry
DX: F33.3 Major depressive disorder, recurrent, severe with psychotic symptoms (principal); F11.20 Opioid dependence, uncomplicated; K21.9 Gastro-esophageal reflux disease without esophagitis; K43.5 Parastomal hernia without obstruction or gangrene; K50.90 Crohn's disease, unspecified, without complications; K08.89 Other specified disorders of teeth and supporting structures; F14.10 Cocaine abuse, uncomplicated; F17.210 Nicotine dependence, cigarettes, uncomplicated; Z93.3 Colostomy status; Z93.2 Ileostomy status; Z63.4 Disappearance and death of family member; Z59.2 Discord with neighbors, lodgers and landlord; Z71.6 Tobacco abuse counseling; Z91.51 Personal history of suicidal behavior; Z59.02 Unsheltered homelessness; Z79.01 Long term (current) use of anticoagulants; Z79.899 Other long term (current) drug therapy
CPT/HCPCS: 92950

== ENCOUNTER → 2023-10-11 16:12 | Outpatient (BNV) | payer OTHER, SELFPAY | PROVIDERS: Admitting Provider Psychiatry & Neurology Psychiatry; Visit Provider Psychiatry & Neurology Psychiatry | DX: F33.3 Major depressive disorder, recurrent, severe with psychotic symptoms (principal); F14.10 Cocaine abuse, uncomplicated; F11.90 Opioid use, unspecified, uncomplicated; F43.11 Post-traumatic stress disorder, acute | CPT/HCPCS: 99231; 99232; 99233; 99499 ==

== ENCOUNTER → 2023-10-11 16:12 | Outpatient (BNV) | payer MEDICAID, SELFPAY | PROVIDERS: Admitting Provider Psychiatry & Neurology Psychiatry; Visit Provider Physician Assistant Surgical | DX: Z93.3 Colostomy status (principal); Z93.2 Ileostomy status | CPT/HCPCS: 99222 ==

== ENCOUNTER 2024-02-04 08:35 | Inpatient (IN) | payer MEDICAID, OTHER, SELFPAY ==
--- NOTE | 2024-02-04 | ECG_ITS ---
Test Reason : chest pain Blood Pressure : / mmHG Vent. Rate : 078 BPM Atrial Rate : 078 BPM P-R Int : 138 ms QRS Dur : 102 ms QT Int : 424 ms P-R-T Axes : 061 057 055 degrees QTc Int : 483 ms Normal sinus rhythm Prolonged QT Abnormal ECG When compared with ECG of 09-OCT-2023 10:31, No significant change was found Referred By: Generic ED Physician Electronically Signed By:FERNANDA JUSTICE MD
--- NOTE | ~2024-02-04 | XR_ITS ---
EXAMINATION: XR CHEST CLINICAL INFORMATION: Chest pain COMPARISON: Chest radiograph 09/24/2022 TECHNIQUE: Frontal view of the chest was obtained. FINDINGS: The lungs are adequately expanded. No focal consolidation. Few streaky linear opacities in the right lung base. No pleural effusions. No pneumothorax.The cardiomediastinal silhouette is within normal limits. No acute osseous abnormality. XR/XR chest 1V IMPRESSION: No acute pulmonary disease. Few streaky linear right lung base opacities are favored to represent atelectasis. Electronically signed by: Kory Jernigan MD 02/04/2024 11:26 AM EDT
--- NOTE | ~2024-02-04 | CT_ITS ---
EXAMINATION: CT HEAD WITHOUT CONTRAST CLINICAL INFORMATION: New onset confusion COMPARISON: Head CT on 09/08/2022 TECHNIQUE: Contiguous axial imaging was performed from the skull base to vertex without intravenous administration of contrast. This CT examination was performed using dose optimization techniques as appropriate, variously including the following: *Automated exposure control *Adjustment of mA and/or kV according to patient size (this includes techniques or standardized protocols for targeted exams where dose is matched to indication/reason for exam; i.e. extremities or head) *Use of iterative reconstruction technique DLP: 885 mGy-cm RESULTS: There is no evidence of acute intracranial hemorrhage, acute large vessel infarct, midline shift or mass effect. The stoner-white differentiation is preserved. There are patchy periventricular and subcortical white matter changes, which are nonspecific, but likely represent chronic microangiopathic change in a patient of this age. The ventricles and sulci are within normal limits in size and configuration. There is no evidence of hydrocephalus. There are no extraaxial collections. Osseous structures are intact. Paranasal sinuses and mastoid air cells are well aerated. CT/CT head/brain wo IV con IMPRESSION: No acute intracranial pathology. Electronically signed by: Pascale Robb MD 02/14/2024 08:02 PM EDT
--- NOTE | ~2024-02-04 | CT_ITS ---
EXAMINATION: CT ABDOMEN AND PELVIS WITHOUT CONTRAST CLINICAL INFORMATION: Crohn's. COMPARISON: Multiple prior CT examinations most recent 09/22/2022. TECHNIQUE: Multidetector volumetric imaging was performed from the superior aspect of the liver through the pubic symphysis. Sagittal and coronal reformatted images were obtained on the technologist's workstation. This CT examination was performed using dose optimization techniques as appropriate, variously including the following: *Automated exposure control *Adjustment of mA and/or kV according to patient size (this includes techniques or standardized protocols for targeted exams where dose is matched to indication/reason for exam; i.e. extremities or head) *Use of iterative reconstruction technique DLP: 452 mGy-cm FINDINGS: LUNG BASES: The visualized lung bases are unremarkable. LIVER, GALLBLADDER, AND BILIARY TREE: The liver is normal in size, shape, and attenuation. No focal hepatic lesion or biliary ductal dilatation is present. The gallbladder is unremarkable with no evidence of radiopaque gallstones, gallbladder wall thickening, or obvious pericholecystic inflammatory changes. PANCREAS: Unremarkable. SPLEEN: Unremarkable. ADRENAL GLANDS: Unremarkable. KIDNEYS AND URETERS: The kidneys are normal in size, shape, and attenuation. No hydronephrosis, hydroureter, or calculi seen. No perinephric stranding. BLADDER: Unremarkable. GASTROINTESTINAL TRACT: There are postoperative changes in the distal/sigmoid colon which is new compared to prior. I suspect the previously noted abnormal sigmoid colon has likely been resected along with additional portions of the colon. There are postsurgical changes along the distal lateral abdominal wall likely related to the suspected surgery. The previously noted thickened and narrowed sigmoid colon loops are no longer demonstrated. However, there is a question of slight stranding in the small bowel loops abutting the area of colonic surgery in the midline upper pelvis seen on axial image 66 series 3. There is borderline mildly dilated small bowel loops containing air and fluid in the central abdomen. ABDOMINAL WALL: Postsurgical changes along the midline and left lateral abdominal wall noted. LYMPH NODES: Normal. VASCULAR: IVC filter in place with the proximal end at the level of the right renal vein. Minimal arterial calcification noted. PELVIC VISCERA: Unremarkable. OSSEOUS STRUCTURES: Degenerative disc changes at L5-S1 unchanged. CT/CT abdomen pelvis wo IV con IMPRESSION: 1. Postoperative changes in the colon. Question of mild inflammatory change in the small bowel loops in the midline upper pelvis abutting the area of surgery in the region of the remaining sigmoid colon. 2. Borderline mildly dilated small bowel loops in the central abdomen. This may reflect normal variation, mild ileus but cannot exclude partial small bowel obstruction. 3. IVC filter in place. 4. Degenerative disc disease at L5-S1 unchanged. Fleischner guidelines were followed. Electronically signed by: Som Romero MD 02/27/2024 12:31 PM JOVANA ARZATE
[2024-02-04 08:49] VITALS: BP 139/79; BP 146/84; PULSE 102; PULSE 78; RESP 20; TEMP 36.7; O2SAT 100; O2SAT 99; BMI 24.2
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
[2024-02-04 09:55] LABS: MANUAL DIFF FLAG NO
[2024-02-04 09:59] LABS: Basophils Percent Auto 0.3 % (0-2); Hematocrit 35.3 % (42.0-52.0); Hemoglobin 11.6 g/dl (14.0-18.0); Imm Gran Abs Auto 0.04 X10*3/uL (0.00-0.03); Imm Gran Pct Auto 0.5 % (0.0-0.4); Lymphocytes Absolute Auto 0.6 X10*3/uL (1.2-4.9); Lymphocytes Percent Auto 7.7 % (20-40); Mean Corpuscular HGB Conc 32.9 g/dl (31.0-36.0); Mean Corpuscular Hemoglobin 28.2 pg (27.0-33.0); Mean Corpuscular Volume 85.7 fL (80.0-98.0); Monocytes Absolute Auto 0.4 X10*3/uL (0.1-1.2); Monocytes Percent Auto 5.3 % (2-11); Neutrophils Absolute Auto 6.3 x10*3/uL (2.0-8.3); Neutrophils Percent Auto 86.2 % (45-73); Platelet Count 296 X10*3/uL (160-400); Red Blood Count 4.12 X10*6/uL (4.60-5.80); Red Cell Distribution Width 15.9 % (11.0-16.0); White Blood Count 7.3 X10*3/uL (4.8-10.8)
[2024-02-04 10:06] LABS: INTERNATIONAL NORM RATIO 1.2 (0.9-1.1); Prothrombin Time 14.3 SEC (10.9-12.4)
[2024-02-04 10:19] LABS: Alanine Aminotransferase 25 U/L (0-40); Albumin Level 4.6 g/dL (3.5-5.0); Alkaline Phosphatase 92 U/L (39-117); Anion Gap 18 (12-20); Aspartate Amino Transferase 63 U/L (5-37); Bilirubin Total 0.6 mg/dL (0.0-1.0); Blood Urea Nitrogen 34 mg/dL (9-16); Calcium 9.5 mg/dL (8.4-10.2); Carbon Dioxide 22 mmol/L (22-29); Chloride 104 mmol/L (96-108); Creatinine Clr Calc Pharmacy 68.4; Estimated Glomerular Filt Rate 55; Ethanol < 10 mg/dL; Glucose Random 86 mg/dL (60-115); Magnesium 2.1 mg/dL (1.6-2.6); Potassium 4.6 mmol/L (3.3-5.1); Sodium 139 mmol/L (135-145); Total Protein 7.9 g/dL (6.5-8.0)
[2024-02-04 10:21] LABS: COVID-19 Test Negative (Negative); IDNOW Serial# 152EDE1D
[2024-02-04 10:22] LABS: B Type Natriuretic Peptide 68 pg/mL (<100)
[2024-02-04 10:24] LABS: Troponin-I High Sensitivity 36.9 ng/L (<3.5-35.0)
--- NOTE | 2024-02-04 12:22 | PC.NURSE ---
patient very anxious and tremors. Patient becoming increasingly agitated. Rn escorted to BR for 2nd attempt at urine sample and pt unable to provide. Patient had epsiode of diarrhea. Patient keeps stating I just want to leave and kill myself, please let me go made aware
[2024-02-04 12:40] LABS: Troponin-I High Sensitivity 45.6 ng/L (<3.5-35.0)
[2024-02-04] MEDS: LORazepam 2 MG/ML VIAL IVPUSH (12:50)
[2024-02-04] MEDS: Morphine Sulfate 4 MG/ML CARTRIDGE IVPUSH (13:03)
[2024-02-04] MEDS: Aspirin 81 MG TAB.CHEW 324 MG PO (13:03)
[2024-02-04 13:05] VITALS: BP 132/84; PULSE 64; RESP 12; TEMP 36.7; O2SAT 99
[2024-02-04 18:10] VITALS: BP 118/69; PULSE 85; RESP 18; TEMP 37.1; O2SAT 96
--- NOTE | 2024-02-04 19:33 | PC.NURSE ---
Pt has been calm and cooperative since arrival to Pod. No tremor. No agression. Steady on feet. Denies SI at this time.
[2024-02-04] MEDS: QUEtiapine Fumarate 200 MG TABLET PO (22:09)
--- NOTE | 2024-02-04 23:18 | PC.NURSE ---
late entry-pt periodically asking for snacks, appears irritable, relayed recent med compliance/adherence to t/w and took hs seroquel easily. periodically heard self dialoguing in rear common area/
[2024-02-05] MEDS: traZODone HCL 50 MG TABLET PO (03:24)
--- NOTE | 2024-02-05 06:47 | HE.PHANOTE ---
Pharmacy received patients methadone verification form. Patient is confirmed to be receiving methadone from [facility] [phone]. Patient dosed last on 02/02/24 with 50 mg
[2024-02-05] MEDS: QUEtiapine Fumarate 200 MG TABLET PO ×2 (08:40→20:15)
[2024-02-05] MEDS: Benztropine Mesylate 1 MG TABLET PO (08:40)
[2024-02-05] MEDS: methADONE HCl 20 MG/2 ML ORAL.CONC 50 MG PO (10:07)
[2024-02-05] MEDS: buPROPion HCl XL 300 MG TAB.ER.24H PO (11:35)
[2024-02-05] MEDS: PARoxetine HCL 20 MG TABLET PO (11:35)
[2024-02-05 11:40] VITALS: BP 106/71; PULSE 61; RESP 14; TEMP 36.7; O2SAT 99
--- NOTE | 2024-02-05 14:51 | PC.NURSE ---
patient has been resting in bed throughout shift w/ no obvious signs/symptoms of distress. even and unlabored respirations.
--- NOTE | 2024-02-05 16:57 | PC.NURSE ---
Pt has been resting quietly since this RN arrival at 3p/ Endorses SI at this time and reports increased anxiety. States he's unable to urinate and last void was yesterday. Given PO fluids and encouraged to drink.
[2024-02-06 06:43] VITALS: RESP 16
[2024-02-06] MEDS: Benztropine Mesylate 1 MG TABLET PO (08:52)
[2024-02-06] MEDS: QUEtiapine Fumarate 200 MG TABLET PO ×2 (08:52→21:23)
[2024-02-06] MEDS: PARoxetine HCL 20 MG TABLET PO (09:12)
[2024-02-06] MEDS: buPROPion HCl XL 300 MG TAB.ER.24H PO (09:12)
[2024-02-06 09:22] VITALS: BP 105/54; PULSE 61; RESP 16; TEMP 36.9; O2SAT 98
[2024-02-06] MEDS: methADONE HCl 20 MG/2 ML ORAL.CONC 50 MG PO (09:39)
--- NOTE | 2024-02-06 13:46 | PHA.MEDREC ---
Addendum entered by Herman Chappell RPh 02/06/24 13:58: Reviewed by [facility] Original Note: Pharmacy Consult ? Medication Reconciliation Pharmacy has completed the medication reconciliation. Reviewed med rec done by nursing. Only medication missing is an extra bupropion 150 mg prescribed to take with the 300 mg. Nurse Jae asked the patient but he replied saying he did not know. Consistent fills of the 150 and 300 mg together so will add to home med list.
[2024-02-06 23:56] VITALS: PULSE 68
[2024-02-07 06:00] VITALS: BP 125/84; PULSE 88; RESP 14; TEMP 37.1; O2SAT 97
--- NOTE | 2024-02-07 07:50 | PC.NURSE ---
pt seemingly manic as she continues to walk around the pod at full speed from room to bathroom and then to nurses station. since assuming care of pt at 0645 - pt has presented to the nurses station approximately 30 times. pt continuously requesting for food, soap, wipes to clean table in her room, toilet paper, etc. pt verbalizing that bathroom is extremely filthy (even though it is not) and requesting cleaning supplies to clean the bathroom herself. pt notified that environmental will be called to clean the restroom. pt otherwise calm/cooperative aside from multiple requests and walking around in a manic manner.
[2024-02-07] MEDS: QUEtiapine Fumarate 200 MG TABLET PO ×2 (09:21→21:25)
[2024-02-07] MEDS: Benztropine Mesylate 1 MG TABLET PO (09:21)
[2024-02-07] MEDS: buPROPion HCl XL 300 MG TAB.ER.24H PO (10:09)
[2024-02-07] MEDS: PARoxetine HCL 20 MG TABLET PO (10:09)
--- NOTE | 2024-02-07 10:31 | PC.NURSE ---
Addendum entered by Tosha Victor 02/07/24 10:33: pt verbalizing he has not been able to urinate in days. this RN stated that bladder scan would be obtained to display mLs in bladder. pt became increasingly agitated stating that we are not allowed to do that and that he will be refusing all care. pt also recently seen by care team/refusing to speak/conversate. Original Note: urine amended but pt verbalizes he was unable to urinate at this time. will reattempt to obtain specimen at this time.
[2024-02-07 14:54] LABS: Appearance Urine Cloudy; Color Urine Dark Yellow; Glucose Urine UA Negative (Negative); Leukocyte Esterase Urine Negative (Negative); Nitrite Urine Negative (Negative); PH 5.5 (5.0-9.0); Specific Gravity - Urine >= 1.030 (1.005-1.025); UMIC TRIGGER UACC YES; Urine Blood Negative (Negative); Urine Ketones Trace mg/dL (Negative); Urine Protein 30 (1+) mg/dL (Neg-Trace)
[2024-02-07 15:03] LABS: Bacteria Urine None Seen (None Seen); RBC Urine 0-2 /HPF (0-2); Squamous Epithelial Cell Urine 0-2 /HPF (0-2); WBC Urine 0-5 /HPF (0-5)
[2024-02-07 15:08] LABS: Amphetamine Screen Urine Not Detected (Not Detect); Barbiturates, Urine Not Detected (Not Detect); Benzodiazepines Screen Urine Not Detected (Not Detect); Buprenorphine Scr Not Detected (Not Detect); Cannabinoid Screen Urine Not Detected (Not Detect); Cocaine Screen Urine POSITIVE (Not Detect); Fentanyl, urine POSITIVE (Not Detect); Methadone Screen, Urine Positive (Not Detect); Opiate Screen Urine POSITIVE (Not Detect); Oxycodone Screen Urine Not Detected (Not Detect); Phencyclidine Screen Urine Not Detected (Not Detect)
[2024-02-07 15:11] VITALS: BP 113/77; PULSE 64; RESP 16; TEMP 37.2; O2SAT 99
[2024-02-07 21:27] VITALS: RESP 16
--- NOTE | 2024-02-07 21:28 | PC.NURSE ---
patient sleeping, respirations even and non labored. patient awoken for evening medications. when asked if patient needed anything he said yea not to wake me up. patient refused vitals
[2024-02-07 22:00] VITALS: RESP 16
[2024-02-08 06:00] VITALS: RESP 16
--- NOTE | 2024-02-08 07:40 | PC.NURSE ---
Assumed care of patient at 0645, patient appears to be in no apparent distress this am, sleeping, respirations even and unlabored. Continue plan of care for inpatient bedsearch
[2024-02-08] MEDS: PARoxetine HCL 20 MG TABLET PO (08:28)
[2024-02-08] MEDS: buPROPion HCl XL 300 MG TAB.ER.24H PO (08:28)
[2024-02-08] MEDS: QUEtiapine Fumarate 200 MG TABLET PO (08:30)
[2024-02-08] MEDS: Benztropine Mesylate 1 MG TABLET PO (08:30)
--- NOTE | 2024-02-08 09:08 | HE.PHANOTE ---
METHADONE Dose: 50mg, last dosed on 02/02/2024 @0800 per ISABELLE Roach at [facility]. [phone].
--- NOTE | 2024-02-08 15:05 | PC.ADMIT ---
Brian was admitted to M3 at 1349 from [facility]? on CV for treatment of unspecified depressive d/o with an attempted OD. The pt is homeless and became hopeless with SI. Pt says he? took everything? in an attempt at suicide.Tox screen positive for heroin, cocaine and THC. Pt is A&O x3, mood is depressed with a flat affect. Pt was tired and focused on going to bed. Pt is known to the unit with multiple Inpatient admissions to [facility]. Pt has an extensive mental health? and substance history. Pt did not endorse AH/VH and showed no evidence of responding to internal stimuli. Thought process is disorganized . Eye contact is intermittent, speech is soft. Pt denies ideation, plan or intent to harm self or others while on the unit. Appetite is poor, denied wt loss/gain. Sleep has been disrupted since living on the streets. Pt had difficulty focusing on admission since being focused on going to bed. Pt has had an extensive medical hx including GERD, Metabolic Encephalopathy, Hep C, Colitis, HTN, and Ileostomy.with reversal in September 2023 per pt. Pt reports that he hasn?t been taking medications for an unknown time. Pt is hoping to get depression treated and resume medications.Pt placed on 15 minute safety checks.
[2024-02-08 16:00] VITALS: PULSE 72
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
[2024-02-09 07:57] VITALS: BP 133/92; PULSE 105; RESP 16; TEMP 36.9; O2SAT 98
[2024-02-09 08:00] VITALS: PULSE 105
[2024-02-09] MEDS: methADONE HCl 20 MG/2 ML ORAL.CONC 50 MG PO (08:34)
[2024-02-09] MEDS: Nicotine 21 MG PATCH.TD24 TRANSDERMA (08:50)
[2024-02-09] MEDS: QUEtiapine Fumarate 200 MG TABLET PO ×2 (08:51→20:40)
[2024-02-09] MEDS: buPROPion HCl XL 300 MG TAB.ER.24H PO (08:51)
[2024-02-09] MEDS: PARoxetine HCL 20 MG TABLET PO (08:51)
[2024-02-09] MEDS: Benztropine Mesylate 1 MG TABLET PO (08:51)
--- NOTE | 2024-02-09 11:18 | HO.PSYCHPN ---
Subjective Subjective Date of Service: 02/09/24 Reason For Visit: crisis Subjective Notes: Conditional Voluntary Interim History: Reviewed with Dr. Vasquez. Laying in bed most of shift. Irritable. Guarded. Pt reports feeling anxious and depressed ; pt stated, I'm hearing voices telling me to kill myself. They told me to sniff all the bags of drugs. I felt like I had a devil and tony on my shoulders . Pt continues to report auditory hallucinations. He reports suicidal ideation with no plan. denies HI/VH. Pt reports he would like to go to respite after discharge. pt c/o of withdrawal symptoms; seen by addiction medicine. Medication Compliance: Yes Side effects from medications: No Attending Groups: No Review of Systems Constitutional: Reports as per HPI Eyes: Reports as per HPI Reports as per HPI Cardiovascular: Reports as per HPI Respiratory: Reports as per HPI Gastrointestinal: Reports as per HPI Genitourinary: Reports as per HPI Musculoskeletal: Reports as per HPI Skin/Breast: Reports as per HPI Reports as per HPI Psychiatric: Reports as per HPI Endocrine: Reports as per HPI Hematologic/Lymphatic: Reports as per HPI Allergic/Immunologic: Reports as per HPI Mental Status Exam Mental Status Exam Narrative: Pt is alert and oriented; behavior is guarded, irritable; dressed in casual attire; mood is described as anxious and depressed ; eye contact appropriate; Speech is normal rate, volume and not pressured; thought process is organized and goal directed; Thought content is on tx; denies HI/VH. Pt reports auditory hallucinations telling him to harm himself. Pt reports suicidal ideation with no plan. Diagnostics Vital Signs (24Hr): Vital Signs - 24 hr 02/09/24 07:57 Temperature 98.4 F Pulse Rate 105 H Respiratory Rate 16 Blood Pressure 133/92 H Pulse Oximetry 98 Oxygen Delivery Method Room Air BMI result Body Mass Index 24.2 Labs 02/04/24 09:50 02/04/24 09:50 Labs: Laboratory Results - last 48 hr 02/07/24 14:45 Urine Color Dark Yellow Urine Appearance Cloudy Urine pH 5.5 Ur Specific [place] >= 1.030 H Urine Protein 30 (1+) H Urine Glucose (UA) Negative Urine Ketones Trace Urine Blood Negative Urine Nitrite Negative Ur Leukocyte Esterase Negative Urine RBC 0-2 Urine WBC 0-5 Ur Squamous Epith Cells 0-2 Urine Bacteria None Seen Hyaline Casts 3-5 Urine Opiates Screen POSITIVE H Ur Buprenorphine Scrn Not Detected Ur Oxycodone Screen Not Detected Urine Methadone Screen Positive H Urine Fentanyl Screen POSITIVE H Ur Barbiturates Screen Not Detected Ur Phencyclidine Scrn Not Detected Ur Amphetamines Screen Not Detected U Benzodiazepines Scrn Not Detected Urine Cocaine Screen POSITIVE H U Marijuana (THC) Screen Not Detected Imaging Radiology Impressions: ITS Impressions Chest X-Ray 02/04/24 08:52 IMPRESSION: No acute pulmonary disease. Few streaky linear right lung base opacities are favored to represent atelectasis. Electronically signed by: Kory Jernigan MD 02/04/2024 11:26 AM EDT RP Medications Medications Current Medications Acetaminophen (Acetaminophen 325 Mg Tablet) 650 mg PO Q6H PRN PRN Reason: Headache/Pain Mild Scale (1-3) Al Hydroxide/Mg Hydroxide (Magnesium Hydrox/Alum Hydrox 30 Ml Oral.Susp) 30 ml PO Q6H PRN PRN Reason: Heartburn/Nausea Benztropine Mesylate (Benztropine Mesylate 1 Mg Tablet) 1 mg PO DAILY [facility] Last Admin: 02/09/24 08:51 Dose: 1 mg Bupropion HCl (Bupropion Hcl Xl 300 Mg Tab.Er.24h) 300 mg PO DAILY [facility] Last Admin: 02/09/24 08:51 Dose: 300 mg Hydroxyzine HCl (Hydroxyzine Hcl 25 Mg Tablet) 25 mg PO Q6H PRN PRN Reason: Anxiety Magnesium Hydroxide (Milk Of Magnesia 30 Ml Oral.Susp) 30 ml PO DAILY PRN PRN Reason: Constipation Methadone HCl (Methadone Hcl 20 Mg/2 Ml Oral.Conc) 50 mg PO DAILY@0800 [facility] Last Admin: 02/09/24 08:34 Dose: 50 mg Nicotine (Nicotine 21 Mg Patch.Td24) 21 mg TRANSDERMA DAILY [facility] Last Admin: 02/09/24 08:50 Dose: 21 mg Nicotine Polacrilex (Nicotine Polacrilex 2 Mg Gum) 4 mg BUCCAL Q2H PRN PRN Reason: Nicotine Cravings Paroxetine HCl (Paroxetine Hcl 20 Mg Tablet) 20 mg PO DAILY [facility] Last Admin: 02/09/24 08:51 Dose: 20 mg Quetiapine Fumarate (Quetiapine Fumarate 200 Mg Tablet) 200 mg PO BID [facility] Last Admin: 02/09/24 08:51 Dose: 200 mg Trazodone HCl (Trazodone Hcl 50 Mg Tablet) 50 mg PO BEDTIME MRX1 PRN PRN Reason: Insomnia Allergies Allergies Allergy/AdvReac Type Severity Reaction Status Date / Time haloperidol [From Haldol] AdvReac see note Verified 02/04/24 08:51 Assessment & Plan Assessment & Plan (1) MDD (major depressive disorder), recurrent episode, moderate: Status: Acute Code(s): F33.1 - Major depressive disorder, recurrent, moderate (2) Post traumatic stress disorder (PTSD): Status: Acute Code(s): F43.10 - Post-traumatic stress disorder, unspecified (3) Opioid use disorder: Status: Acute Code(s): F11.90 - Opioid use, unspecified, uncomplicated (4) Cocaine use disorder: Status: Acute Code(s): F14.10 - Cocaine abuse, uncomplicated Plan Patient is a 49-year-old male with history of MDD, PTSD, opiate use disorder and cocaine use disorder who was brought in by ambulance from a hotel after a suicide attempt by overdose on multiple substances. Plan: CV 15 minute safety checks Review past medications Continue home medications Addiction medicine consult Build rapport Encourage groups Discharge planning 02/08: Laying in bed most of shift. Irritable. Guarded. Pt reports feeling anxious and depressed ; pt stated, I'm hearing voices telling me to kill myself. They told me to sniff all the bags of drugs. I felt like I had a devil and tony on my shoulders . Pt continues to report auditory hallucinations. He reports suicidal ideation with no plan. denies HI/VH. Pt reports he would like to go to respite after discharge. pt c/o of withdrawal symptoms; seen by addiction medicine. Patient educated on: diagnosis and medication risk/benefits Reason for continued inpatient stay Substantial Risk for: harm to self and med/psych decompensation Time Spent With Patient Time: Total time managing care of this patient today _20___ minutes.
[2024-02-09] MEDS: Ibuprofen 600 MG TABLET PO ×2 (12:22→20:41)
[2024-02-09] MEDS: Loperamide HCl 2 MG CAPSULE 4 MG PO (12:22)
[2024-02-09 12:23] VITALS: BP 121/80
[2024-02-09] MEDS: cloNIDine HCL 0.1 MG TABLET PO ×2 (12:23→20:40)
[2024-02-09] MEDS: OLANZapine 5 MG TABLET PO ×2 (12:23→20:41)
[2024-02-09] MEDS: methADONE HCl 20 MG/2 ML ORAL.CONC 10 MG PO (14:29)
--- NOTE | 2024-02-09 16:03 | MHC.RECOVRN ---
Met with pt on M3 after Addiction Medicine consult received for ?methadone. Pt sitting in bed, awake, alert, easily engages in conversation, appears slightly diaphoretic. Pt reports prior to admission he was using 2 bundles heroin/fentanyl daily, IN, as well as cocaine, INH, occcaisonally. Pt is currently receiving 50 mg methadone daily. Pt reports current withdrawal symptoms including nausea, abdominal cramps, and feeling hot/cold. Pt requesting methadone dose increase. Pt denies other questions or concerns for t/w. Discussed with Clotilde Pan APRN. Order was placed for additional 10 mg methadone.
[2024-02-09 17:23] VITALS: PULSE 107
[2024-02-09 19:53] VITALS: BP 113/70; PULSE 62; RESP 16; O2SAT 98
[2024-02-09] MEDS: hydrOXYzine HCL 25 MG TABLET PO (20:40)
[2024-02-09] MEDS: traZODone HCL 50 MG TABLET PO (20:40)
[2024-02-10] VITALS (7 sets, daily range): BP systolic 98–118; BP diastolic 56–74; PULSE 66–88; RESP 14–16; TEMP 37.1; O2SAT 96–97
[2024-02-10] MEDS: methADONE HCl 20 MG/2 ML ORAL.CONC 60 MG PO (08:19)
[2024-02-10] MEDS: cloNIDine HCL 0.1 MG TABLET PO ×2 (08:42→20:59)
[2024-02-10] MEDS: buPROPion HCl XL 300 MG TAB.ER.24H PO (08:42)
[2024-02-10] MEDS: QUEtiapine Fumarate 200 MG TABLET PO ×2 (08:42→21:01)
[2024-02-10] MEDS: Benztropine Mesylate 1 MG TABLET PO (08:42)
[2024-02-10] MEDS: PARoxetine HCL 20 MG TABLET PO (08:42)
--- NOTE | 2024-02-10 09:30 | P.PNPSI_ITS ---
Subjective Subjective Date of Service: 02/10/24 Reason For Visit: crisis Subjective Notes: Conditional Voluntary Interim History: Reviewed with Dr. Vasquez. Irritable. Guarded. Pt reports feeling depressed ; pt continues to report auditory hallucinations. He reports suicidal ideation with no plan. Pt stated, I always feel suicidal . denies HI/VH. Pt reports he would prefer to be referred to a respite or usp in [facility]. Medication Compliance: Yes Side effects from medications: No Attending Groups: No Review of Systems Constitutional: Reports as per HPI Eyes: Reports as per HPI Reports as per HPI Cardiovascular: Reports as per HPI Respiratory: Reports as per HPI Gastrointestinal: Reports as per HPI Genitourinary: Reports as per HPI Musculoskeletal: Reports as per HPI Skin/Breast: Reports as per HPI Reports as per HPI Psychiatric: Reports as per HPI Endocrine: Reports as per HPI Hematologic/Lymphatic: Reports as per HPI Allergic/Immunologic: Reports as per HPI Mental Status Exam Mental Status Exam Narrative: Pt is alert and oriented; behavior is guarded, irritable; dressed in casual attire; mood is described as depressed ; eye contact appropriate; Speech is normal rate, volume and not pressured; thought process is organized and goal directed; Thought content is on tx; denies HI/VH. Pt reports auditory hallucinations. Pt reports chronic suicidal ideation with no plan. Diagnostics Vital Signs (24Hr): Vital Signs - 24 hr 02/09/24 12:23 02/09/24 19:53 02/10/24 08:17 Pulse Rate 62 86 Respiratory Rate 16 14 Blood Pressure 121/80 113/70 118/74 Pulse Oximetry 98 97 Oxygen Delivery Method Room Air Room Air 02/10/24 08:42 Pulse Rate Respiratory Rate Blood Pressure 118/74 Pulse Oximetry Oxygen Delivery Method BMI result Body Mass Index 24.2 Labs 02/04/24 09:50 02/04/24 09:50 Imaging Radiology Impressions: ITS Impressions Chest X-Ray 02/04/24 08:52 IMPRESSION: No acute pulmonary disease. Few streaky linear right lung base opacities are favored to represent atelectasis. Electronically signed by: Kory Jernigan MD 02/04/2024 11:26 AM EDT Medications Medications Current Medications Acetaminophen (Acetaminophen 325 Mg Tablet) 650 mg PO Q6H PRN PRN Reason: Headache/Pain Mild Scale (1-3) Al Hydroxide/Mg Hydroxide (Magnesium Hydrox/Alum Hydrox 30 Ml Oral.Susp) 30 ml PO Q6H PRN PRN Reason: Heartburn/Nausea Benztropine Mesylate (Benztropine Mesylate 1 Mg Tablet) 1 mg PO DAILY [facility] Last Admin: 02/10/24 08:42 Dose: 1 mg Bupropion HCl (Bupropion Hcl Xl 300 Mg Tab.Er.24h) 300 mg PO DAILY [facility] Last Admin: 02/10/24 08:42 Dose: 300 mg Clonidine HCl (Clonidine Hcl 0.1 Mg Tablet) 0.1 mg PO BID [facility]; Protocol Last Admin: 02/10/24 08:42 Dose: 0.1 mg Hydroxyzine HCl (Hydroxyzine Hcl 25 Mg Tablet) 25 mg PO Q6H PRN PRN Reason: Anxiety Last Admin: 02/09/24 20:40 Dose: 25 mg Ibuprofen (Ibuprofen 600 Mg Tablet) 600 mg PO Q8H PRN PRN Reason: Pain, Moderate(Pain Scale 4-6) Last Admin: 02/09/24 20:41 Dose: 600 mg Loperamide HCl (Loperamide Hcl 2 Mg Capsule) 4 mg PO Q6H PRN PRN Reason: Loose Stool Last Admin: 02/09/24 12:22 Dose: 4 mg Magnesium Hydroxide (Milk Of Magnesia 30 Ml Oral.Susp) 30 ml PO DAILY PRN PRN Reason: Constipation Methadone HCl (Methadone Hcl 20 Mg/2 Ml Oral.Conc) 60 mg PO DAILY@0800 [facility] Last Admin: 02/10/24 08:19 Dose: 60 mg Nicotine (Nicotine 21 Mg Patch.Td24) 21 mg TRANSDERMA DAILY [facility] Last Admin: 02/10/24 08:48 Dose: Not Given Nicotine Polacrilex (Nicotine Polacrilex 2 Mg Gum) 4 mg BUCCAL Q2H PRN PRN Reason: Nicotine Cravings Olanzapine (Olanzapine 5 Mg Tablet) 5 mg PO Q4H PRN PRN Reason: agitation Last Admin: 02/09/24 20:41 Dose: 5 mg Ondansetron HCl (Ondansetron Odt 8 Mg Tab.Rapdis) 8 mg TRANSLINGU Q12H PRN PRN Reason: Nausea and Vomiting Paroxetine HCl (Paroxetine Hcl 20 Mg Tablet) 20 mg PO DAILY [facility] Last Admin: 02/10/24 08:42 Dose: 20 mg Quetiapine Fumarate (Quetiapine Fumarate 200 Mg Tablet) 200 mg PO BID [facility] Last Admin: 02/10/24 08:42 Dose: 200 mg Trazodone HCl (Trazodone Hcl 50 Mg Tablet) 50 mg PO BEDTIME MRX1 PRN PRN Reason: Insomnia Last Admin: 02/09/24 20:40 Dose: 50 mg Allergies Allergies Allergy/AdvReac Type Severity Reaction Status Date / Time haloperidol [From Haldol] AdvReac see note Verified 02/04/24 08:51 Assessment & Plan Assessment & Plan (1) MDD (major depressive disorder), recurrent episode, moderate: Status: Acute Code(s): F33.1 - Major depressive disorder, recurrent, moderate (2) Post traumatic stress disorder (PTSD): Status: Acute Code(s): F43.10 - Post-traumatic stress disorder, unspecified (3) Opioid use disorder: Status: Acute Code(s): F11.90 - Opioid use, unspecified, uncomplicated (4) Cocaine use disorder: Status: Acute Code(s): F14.10 - Cocaine abuse, uncomplicated Plan Patient is a 49-year-old male with history of MDD, PTSD, opiate use disorder and cocaine use disorder who was brought in by ambulance from a hotel after a suicide attempt by overdose on multiple substances. Plan: CV 15 minute safety checks Review past medications Continue home medications Addiction medicine consult Build rapport Encourage groups Discharge planning 02/08: Laying in bed most of shift. Irritable. Guarded. Pt reports feeling anxious and depressed ; pt stated, I'm hearing voices telling me to kill myself. They told me to sniff all the bags of drugs. I felt like I had a devil and tony on my shoulders . Pt continues to report auditory hallucinations. He reports suicidal ideation with no plan. denies HI/VH. Pt reports he would like to go to respite after discharge. pt c/o of withdrawal symptoms; seen by addiction medicine. 02/09:Irritable. Guarded. Pt reports feeling depressed ; pt continues to report auditory hallucinations. He reports suicidal ideation with no plan. Pt stated, I always feel suicidal . denies HI/VH. Pt reports he would prefer to be referred to a respite or usp in [place] or [place]. Continue current tx plan. Patient educated on: diagnosis and medication risk/benefits Reason for continued inpatient stay Substantial Risk for: med/psych decompensation Time Spent With Patient Time: Total time managing care of this patient today _20___ minutes.
[2024-02-11] VITALS: PULSE 81
[2024-02-11] MEDS: methADONE HCl 20 MG/2 ML ORAL.CONC 60 MG PO (07:59)
[2024-02-11] MEDS: Nicotine 21 MG PATCH.TD24 TRANSDERMA (08:22)
[2024-02-11] MEDS: buPROPion HCl XL 300 MG TAB.ER.24H PO (08:23)
[2024-02-11] MEDS: Loperamide HCl 2 MG CAPSULE 4 MG PO (08:23)
[2024-02-11] MEDS: cloNIDine HCL 0.1 MG TABLET PO ×2 (08:23→21:47)
[2024-02-11] MEDS: PARoxetine HCL 20 MG TABLET PO (08:23)
[2024-02-11] MEDS: Benztropine Mesylate 1 MG TABLET PO (08:24)
[2024-02-11] MEDS: QUEtiapine Fumarate 200 MG TABLET PO ×2 (08:24→21:45)
[2024-02-11 08:40] VITALS: BP 114/68; PULSE 61; RESP 16; TEMP 36.8; O2SAT 100
--- NOTE | 2024-02-11 09:26 | HO.PSYCHPN ---
Documented by User: Gloria Lott NP 02/11/24 13:59 Subjective Subjective Date of Service: 02/11/24 Reason For Visit: crisis Subjective Notes: Conditional Voluntary Interim History: Reviewed with Dr. Vasquez. Irritable. Guarded. Refusing to meet with T/W at first, despite multiple attempts. Pt stated, Oh my God. I don't want to talk. Just stay quiet . Observed going into room mates belongings; pt was redirected. Later in the morning, pt agreed to speak to T/W while pacing unit hallway. Pt reports feeling okay ; he reports auditory hallucinations off and on throughout the day. Denies HI/VH. Passive SI with no plan. Pt reports he wants to be discharged to a [facility] in [place]; social work aware. Labs ordered. Medication Compliance: Yes Side effects from medications: No Attending Groups: No Review of Systems Constitutional: Reports as per HPI Eyes: Reports as per HPI Reports as per HPI Cardiovascular: Reports as per HPI Respiratory: Reports as per HPI Gastrointestinal: Reports as per HPI Genitourinary: Reports as per HPI Musculoskeletal: Reports as per HPI Skin/Breast: Reports as per HPI Reports as per HPI Psychiatric: Reports as per HPI Endocrine: Reports as per HPI Hematologic/Lymphatic: Reports as per HPI Allergic/Immunologic: Reports as per HPI Mental Status Exam Mental Status Exam Narrative: Pt is alert and oriented; behavior is guarded, irritable; dressed in casual attire; mood is described as fine ; eye contact appropriate; Speech is normal rate, volume and not pressured; thought process is organized; Thought content is on discharge; denies HI/VH. Pt reports auditory hallucinations on and off throughout the day. Pt reports chronic suicidal ideation with no plan. Diagnostics Vital Signs (24Hr): Vital Signs - 24 hr 02/10/24 16:09 02/10/24 20:00 02/10/24 20:59 Temperature 98.7 F 98.7 F Pulse Rate 66 77 Respiratory Rate 16 16 Blood Pressure 98/56 L 104/58 L 104/58 L Pulse Oximetry 96 Oxygen Delivery Method Room Air 02/11/24 08:40 Temperature 98.2 F Pulse Rate 61 Respiratory Rate 16 Blood Pressure 114/68 Pulse Oximetry 100 Oxygen Delivery Method Room Air BMI result Body Mass Index 24.2 Labs 02/04/24 09:50 02/04/24 09:50 Imaging Radiology Impressions: ITS Impressions Chest X-Ray 02/04/24 08:52 IMPRESSION: No acute pulmonary disease. Few streaky linear right lung base opacities are favored to represent atelectasis. Electronically signed by: Kory Jernigan MD 02/04/2024 11:26 AM EDT RP Medications Medications Current Medications Acetaminophen (Acetaminophen 325 Mg Tablet) 650 mg PO Q6H PRN PRN Reason: Headache/Pain Mild Scale (1-3) Al Hydroxide/Mg Hydroxide (Magnesium Hydrox/Alum Hydrox 30 Ml Oral.Susp) 30 ml PO Q6H PRN PRN Reason: Heartburn/Nausea Benztropine Mesylate (Benztropine Mesylate 1 Mg Tablet) 1 mg PO DAILY [facility] Last Admin: 02/11/24 08:24 Dose: 1 mg Bupropion HCl (Bupropion Hcl Xl 300 Mg Tab.Er.24h) 300 mg PO DAILY [facility] Last Admin: 02/11/24 08:23 Dose: 300 mg Clonidine HCl (Clonidine Hcl 0.1 Mg Tablet) 0.1 mg PO BID [facility]; Protocol Last Admin: 02/11/24 08:23 Dose: 0.1 mg Hydroxyzine HCl (Hydroxyzine Hcl 25 Mg Tablet) 25 mg PO Q6H PRN PRN Reason: Anxiety Last Admin: 02/09/24 20:40 Dose: 25 mg Ibuprofen (Ibuprofen 600 Mg Tablet) 600 mg PO Q8H PRN PRN Reason: Pain, Moderate(Pain Scale 4-6) Last Admin: 02/09/24 20:41 Dose: 600 mg Loperamide HCl (Loperamide Hcl 2 Mg Capsule) 4 mg PO Q6H PRN PRN Reason: Loose Stool Last Admin: 02/11/24 08:23 Dose: 4 mg Magnesium Hydroxide (Milk Of Magnesia 30 Ml Oral.Susp) 30 ml PO DAILY PRN PRN Reason: Constipation Methadone HCl (Methadone Hcl 20 Mg/2 Ml Oral.Conc) 60 mg PO DAILY@0800 [facility] Last Admin: 02/11/24 07:59 Dose: 60 mg Nicotine (Nicotine 21 Mg Patch.Td24) 21 mg TRANSDERMA DAILY [facility] Last Admin: 02/11/24 08:22 Dose: 21 mg Nicotine Polacrilex (Nicotine Polacrilex 2 Mg Gum) 4 mg BUCCAL Q2H PRN PRN Reason: Nicotine Cravings Olanzapine (Olanzapine 5 Mg Tablet) 5 mg PO Q4H PRN PRN Reason: agitation Last Admin: 02/09/24 20:41 Dose: 5 mg Ondansetron HCl (Ondansetron Odt 8 Mg Tab.Rapdis) 8 mg TRANSLINGU Q12H PRN PRN Reason: Nausea and Vomiting Paroxetine HCl (Paroxetine Hcl 20 Mg Tablet) 20 mg PO DAILY [facility] Last Admin: 02/11/24 08:23 Dose: 20 mg Quetiapine Fumarate (Quetiapine Fumarate 200 Mg Tablet) 200 mg PO BID [facility] Last Admin: 02/11/24 08:24 Dose: 200 mg Trazodone HCl (Trazodone Hcl 50 Mg Tablet) 50 mg PO BEDTIME MRX1 PRN PRN Reason: Insomnia Last Admin: 02/09/24 20:40 Dose: 50 mg Allergies Allergies Allergy/AdvReac Type Severity Reaction Status Date / Time haloperidol [From Haldol] AdvReac see note Verified 02/04/24 08:51 Assessment & Plan Assessment & Plan (1) MDD (major depressive disorder), recurrent episode, moderate: Status: Acute Code(s): F33.1 - Major depressive disorder, recurrent, moderate (2) Post traumatic stress disorder (PTSD): Status: Acute Code(s): F43.10 - Post-traumatic stress disorder, unspecified (3) Opioid use disorder: Status: Acute Code(s): F11.90 - Opioid use, unspecified, uncomplicated (4) Cocaine use disorder: Status: Acute Code(s): F14.10 - Cocaine abuse, uncomplicated (5) Homeless single person: Status: Acute Code(s): Z59.00 - Homelessness unspecified Plan Patient is a 49-year-old male with history of MDD, PTSD, opiate use disorder and cocaine use disorder who was brought in by ambulance from a hotel after a suicide attempt by overdose on multiple substances. Plan: CV 15 minute safety checks Review past medications Continue home medications Addiction medicine consult Build rapport Encourage groups Discharge planning 02/08: Laying in bed most of shift. Irritable. Guarded. Pt reports feeling anxious and depressed ; pt stated, I'm hearing voices telling me to kill myself. They told me to sniff all the bags of drugs. I felt like I had a devil and tony on my shoulders . Pt continues to report auditory hallucinations. He reports suicidal ideation with no plan. denies HI/VH. Pt reports he would like to go to respite after discharge. pt c/o of withdrawal symptoms; seen by addiction medicine. 02/09:Irritable. Guarded. Pt reports feeling depressed ; pt continues to report auditory hallucinations. He reports suicidal ideation with no plan. Pt stated, I always feel suicidal . denies HI/VH. Pt reports he would prefer to be referred to a respite or [facility]cfp in [place] or [place]. Continue current tx plan. 02/10: Irritable. Guarded. Refusing to meet with T/W at first, despite multiple attempts. Pt stated, Oh my God. I don't want to talk. Just stay quiet . Observed going into room mates belongings; pt was redirected. Later in the morning, pt agreed to speak to T/W while pacing unit hallway. Pt reports feeling okay ; he reports auditory hallucinations off and on throughout the day. Denies HI/VH. Passive SI with no plan. Pt reports he wants to be discharged to a [facility] in [place]; social work aware. Labs ordered. Patient educated on: medication risk/benefits Reason for continued inpatient stay Substantial Risk for: med/psych decompensation Time Spent With Patient Time: Total time managing care of this patient today _20___ minutes. Documented by User: Jefferson Vasquez MD 02/11/24 21:39 Subjective Subjective Reason For Visit: crisis Diagnostics Labs 02/04/24 09:50 02/04/24 09:50 Assessment & Plan Assessment & Plan (1) MDD (major depressive disorder), recurrent episode, moderate: Status: Acute Code(s): F33.1 - Major depressive disorder, recurrent, moderate (2) Post traumatic stress disorder (PTSD): Status: Acute Code(s): F43.10 - Post-traumatic stress disorder, unspecified (3) Opioid use disorder: Status: Acute Code(s): F11.90 - Opioid use, unspecified, uncomplicated (4) Cocaine use disorder: Status: Acute Code(s): F14.10 - Cocaine abuse, uncomplicated (5) Homeless single person: Status: Acute Code(s): Z59.00 - Homelessness unspecified Reason for continued inpatient stay Substantial Risk for: inability to function and rapid decompensation
--- NOTE | 2024-02-11 11:14 | MHC.RECOVRN ---
Briefly met with pt to follow up after methadone increase to 60 mg. Pt denies withdrawal symptoms, states everything is good, everything is fine. Difficult to engage in further discussion. Denies questions or concerns for t/w. Discussed with Clotilde Pan APRN.
[2024-02-11] MEDS: OLANZapine 5 MG TABLET PO ×2 (12:14→21:46)
[2024-02-11 20:00] VITALS: BP 100/61; PULSE 69; RESP 18; TEMP 36.2; O2SAT 96
[2024-02-11] MEDS: hydrOXYzine HCL 25 MG TABLET PO (21:46)
[2024-02-11] MEDS: traZODone HCL 50 MG TABLET PO (21:46)
[2024-02-11] MEDS: Ibuprofen 600 MG TABLET PO (21:52)
[2024-02-12 08:00] VITALS: BP 108/57; PULSE 65; RESP 16; TEMP 36.9; O2SAT 97
[2024-02-12 08:10] VITALS: BP 108/57; PULSE 65; RESP 16; TEMP 36.9; O2SAT 94
[2024-02-12] MEDS: methADONE HCl 20 MG/2 ML ORAL.CONC 60 MG PO (08:34)
[2024-02-12] MEDS: buPROPion HCl XL 150 MG TAB.ER.24H PO (08:36)
[2024-02-12] MEDS: PARoxetine HCL 20 MG TABLET PO (08:36)
[2024-02-12] MEDS: QUEtiapine Fumarate 200 MG TABLET PO ×2 (08:36→21:05)
--- NOTE | 2024-02-12 09:33 | HO.PSYCHPN ---
Subjective Subjective Date of Service: 02/12/24 Reason For Visit: crisis Interim History: The nursing staff reported the patient looks more confused he has refused labs yesterday. He needs constant redirection but no overt violence. On interview the patient denies new symptoms yesterday he complained of headaches Mental Status Exam Mental Status Exam Patient Appearance: Well Grooomed and Appropriate Patient Orientation: Person and Situation Level of Consciousness: Awake and Appropriate Patient Behavior: Guarded and Passive Mood Description: Withdrawn Affect Description: Constricted Patient Cognition Impaired: Yes Ability to Follow Directions: Good Speech Pattern: Clear Hallucinations: None Delusions: Ideas of Reference Thought Process: Distracted and Slowed Thinking Thought Content: positive for [place] and positive for Poverty of Content Judgement: Fair Diagnostics Vital Signs (24Hr): Vital Signs - 24 hr 02/11/24 20:00 02/12/24 08:00 02/12/24 08:10 Temperature 97.1 F 98.4 F 98.4 F Pulse Rate 69 65 65 Respiratory Rate 18 16 16 Blood Pressure 100/61 108/57 L 108/57 L Pulse Oximetry 96 97 94 Oxygen Delivery Method Room Air Room Air Room Air BMI result Body Mass Index 24.2 Labs 02/04/24 09:50 02/04/24 09:50 Imaging Radiology Impressions: ITS Impressions Chest X-Ray 02/04/24 08:52 IMPRESSION: No acute pulmonary disease. Few streaky linear right lung base opacities are favored to represent atelectasis. Electronically signed by: Kory Jernigan MD 02/04/2024 11:26 AM EDT Medications Medications Current Medications Acetaminophen (Acetaminophen 325 Mg Tablet) 650 mg PO Q6H PRN PRN Reason: Headache/Pain Mild Scale (1-3) Al Hydroxide/Mg Hydroxide (Magnesium Hydrox/Alum Hydrox 30 Ml Oral.Susp) 30 ml PO Q6H PRN PRN Reason: Heartburn/Nausea Bupropion HCl (Bupropion Hcl Xl 150 Mg Tab.Er.24h) 150 mg PO DAILY [facility] Last Admin: 02/12/24 08:36 Dose: 150 mg Clonidine HCl (Clonidine Hcl 0.1 Mg Tablet) 0.1 mg PO BID [facility]; Protocol Last Admin: 02/12/24 08:38 Dose: Not Given Hydroxyzine HCl (Hydroxyzine Hcl 25 Mg Tablet) 25 mg PO Q6H PRN PRN Reason: Anxiety Last Admin: 02/11/24 21:46 Dose: 25 mg Ibuprofen (Ibuprofen 600 Mg Tablet) 600 mg PO Q8H PRN PRN Reason: Pain, Moderate(Pain Scale 4-6) Last Admin: 02/11/24 21:52 Dose: 600 mg Loperamide HCl (Loperamide Hcl 2 Mg Capsule) 4 mg PO Q6H PRN PRN Reason: Loose Stool Last Admin: 02/11/24 08:23 Dose: 4 mg Magnesium Hydroxide (Milk Of Magnesia 30 Ml Oral.Susp) 30 ml PO DAILY PRN PRN Reason: Constipation Methadone HCl (Methadone Hcl 20 Mg/2 Ml Oral.Conc) 60 mg PO DAILY@0800 [facility] Last Admin: 02/12/24 08:34 Dose: 60 mg Nicotine (Nicotine 21 Mg Patch.Td24) 21 mg TRANSDERMA DAILY [facility] Last Admin: 02/12/24 08:38 Dose: Not Given Nicotine Polacrilex (Nicotine Polacrilex 2 Mg Gum) 4 mg BUCCAL Q2H PRN PRN Reason: Nicotine Cravings Olanzapine (Olanzapine 5 Mg Tablet) 5 mg PO Q4H PRN PRN Reason: agitation Last Admin: 02/11/24 21:46 Dose: 5 mg Ondansetron HCl (Ondansetron Odt 8 Mg Tab.Rapdis) 8 mg TRANSLINGU Q12H PRN PRN Reason: Nausea and Vomiting Paroxetine HCl (Paroxetine Hcl 20 Mg Tablet) 20 mg PO DAILY [facility] Last Admin: 02/12/24 08:36 Dose: 20 mg Quetiapine Fumarate (Quetiapine Fumarate 200 Mg Tablet) 200 mg PO BID [facility] Last Admin: 02/12/24 08:36 Dose: 200 mg Trazodone HCl (Trazodone Hcl 50 Mg Tablet) 50 mg PO BEDTIME MRX1 PRN PRN Reason: Insomnia Last Admin: 02/11/24 21:46 Dose: 50 mg Allergies Allergies Allergy/AdvReac Type Severity Reaction Status Date / Time haloperidol [From Haldol] AdvReac see note Verified 02/04/24 08:51 Assessment & Plan Assessment & Plan (1) MDD (major depressive disorder), recurrent episode, moderate: Status: Acute Code(s): F33.1 - Major depressive disorder, recurrent, moderate (2) Post traumatic stress disorder (PTSD): Status: Acute Code(s): F43.10 - Post-traumatic stress disorder, unspecified (3) Opioid use disorder: Status: Acute Code(s): F11.90 - Opioid use, unspecified, uncomplicated (4) Cocaine use disorder: Status: Acute Code(s): F14.10 - Cocaine abuse, uncomplicated (5) Homeless single person: Status: Acute Code(s): Z59.00 - Homelessness unspecified Plan Patient is a 49-year-old male with history of MDD, PTSD, opiate use disorder and cocaine use disorder who was brought in by ambulance from a hotel after a suicide attempt by overdose on multiple substances. Plan: CV 15 minute safety checks Review past medications Continue home medications Addiction medicine consult Build rapport Encourage groups Discharge planning 02/08: Laying in bed most of shift. Irritable. Guarded. Pt reports feeling anxious and depressed ; pt stated, I'm hearing voices telling me to kill myself. They told me to sniff all the bags of drugs. I felt like I had a devil and tony on my shoulders . Pt continues to report auditory hallucinations. He reports suicidal ideation with no plan. denies HI/VH. Pt reports he would like to go to respite after discharge. pt c/o of withdrawal symptoms; seen by addiction medicine. 02/09:Irritable. Guarded. Pt reports feeling depressed ; pt continues to report auditory hallucinations. He reports suicidal ideation with no plan. Pt stated, I always feel suicidal . denies HI/VH. Pt reports he would prefer to be referred to a respite or long-term in [place] or [place]. Continue current tx plan. 02/10: Irritable. Guarded. Refusing to meet with T/W at first, despite multiple attempts. Pt stated, Oh my God. I don't want to talk. Just stay quiet . Observed going into room mates belongings; pt was redirected. Later in the morning, pt agreed to speak to T/W while pacing unit hallway. Pt reports feeling okay ; he reports auditory hallucinations off and on throughout the day. Denies HI/VH. Passive SI with no plan. Pt reports he wants to be discharged to a long-term in [place]; social work aware. Labs ordered. 02/11 keep same treatment. Reason for continued inpatient stay Substantial Risk for: inability to function, rapid decompensation and med/psych decompensation Time Spent With Patient Time: Total time managing care of this patient today _20___ minutes.
[2024-02-12 16:00] VITALS: PULSE 81
[2024-02-12 17:02] VITALS: BP 108/69; PULSE 81; RESP 16; TEMP 36.4; O2SAT 97
[2024-02-12] MEDS: OLANZapine 5 MG TABLET PO (21:05)
[2024-02-12] MEDS: traZODone HCL 50 MG TABLET PO (21:05)
[2024-02-12] MEDS: hydrOXYzine HCL 25 MG TABLET PO (21:06)
--- NOTE | 2024-02-13 08:08 | P.PNPSI_ITS ---
Subjective Subjective Date of Service: 02/13/24 Reason For Visit: crisis Subjective Notes: Conditional Voluntary Interim History: The nursing staff reported the patient had been very confused needed redirection. He was going to others people's room. He verbalized to the staff yesterday that he is feeling very confused and he does not know why. On interview the patient denies new symptoms. I order new blood work for tomorrow morning with ammonia level, comprehensive metabolic panel and CBC. He was in agreement of the blood work for tomorrow morning. Mental Status Exam Mental Status Exam Patient Appearance: Appropriate Patient Orientation: Person and Situation Level of Consciousness: Awake Patient Behavior: Guarded and Passive Mood Description: Withdrawn Affect Description: Constricted Ability to Follow Directions: Good Speech Pattern: Clear Hallucinations: None Delusions: Ideas of Reference Thought Process: Distracted and Slowed Thinking Thought Content: positive for [place] Judgement: Fair Diagnostics Vital Signs (24Hr): Vital Signs - 24 hr 02/12/24 08:10 02/12/24 17:02 Temperature 98.4 F 97.5 F Pulse Rate 65 81 Respiratory Rate 16 16 Blood Pressure 108/57 L 108/69 Pulse Oximetry 94 97 Oxygen Delivery Method Room Air Room Air BMI result Body Mass Index 24.2 Labs 02/04/24 09:50 02/04/24 09:50 Imaging Radiology Impressions: ITS Impressions Chest X-Ray 02/04/24 08:52 IMPRESSION: No acute pulmonary disease. Few streaky linear right lung base opacities are favored to represent atelectasis. Electronically signed by: Kory Jernigan MD 02/04/2024 11:26 AM EDT Medications Medications Current Medications Acetaminophen (Acetaminophen 325 Mg Tablet) 650 mg PO Q6H PRN PRN Reason: Headache/Pain Mild Scale (1-3) Al Hydroxide/Mg Hydroxide (Magnesium Hydrox/Alum Hydrox 30 Ml Oral.Susp) 30 ml PO Q6H PRN PRN Reason: Heartburn/Nausea Bupropion HCl (Bupropion Hcl Xl 150 Mg Tab.Er.24h) 150 mg PO DAILY [facility] Last Admin: 02/12/24 08:36 Dose: 150 mg Clonidine HCl (Clonidine Hcl 0.1 Mg Tablet) 0.1 mg PO BID [facility]; Protocol Last Admin: 02/12/24 20:41 Dose: Not Given Hydroxyzine HCl (Hydroxyzine Hcl 25 Mg Tablet) 25 mg PO Q6H PRN PRN Reason: Anxiety Last Admin: 02/12/24 21:06 Dose: 25 mg Ibuprofen (Ibuprofen 600 Mg Tablet) 600 mg PO Q8H PRN PRN Reason: Pain, Moderate(Pain Scale 4-6) Last Admin: 02/11/24 21:52 Dose: 600 mg Loperamide HCl (Loperamide Hcl 2 Mg Capsule) 4 mg PO Q6H PRN PRN Reason: Loose Stool Last Admin: 02/11/24 08:23 Dose: 4 mg Magnesium Hydroxide (Milk Of Magnesia 30 Ml Oral.Susp) 30 ml PO DAILY PRN PRN Reason: Constipation Methadone HCl (Methadone Hcl 20 Mg/2 Ml Oral.Conc) 60 mg PO DAILY@0800 [facility] Last Admin: 02/12/24 08:34 Dose: 60 mg Nicotine (Nicotine 21 Mg Patch.Td24) 21 mg TRANSDERMA DAILY [facility] Last Admin: 02/12/24 08:38 Dose: Not Given Nicotine Polacrilex (Nicotine Polacrilex 2 Mg Gum) 4 mg BUCCAL Q2H PRN PRN Reason: Nicotine Cravings Olanzapine (Olanzapine 5 Mg Tablet) 5 mg PO Q4H PRN PRN Reason: agitation Last Admin: 02/12/24 21:05 Dose: 5 mg Ondansetron HCl (Ondansetron Odt 8 Mg Tab.Rapdis) 8 mg TRANSLINGU Q12H PRN PRN Reason: Nausea and Vomiting Paroxetine HCl (Paroxetine Hcl 20 Mg Tablet) 20 mg PO DAILY [facility] Last Admin: 02/12/24 08:36 Dose: 20 mg Quetiapine Fumarate (Quetiapine Fumarate 200 Mg Tablet) 200 mg PO BID [facility] Last Admin: 02/12/24 21:05 Dose: 200 mg Trazodone HCl (Trazodone Hcl 50 Mg Tablet) 50 mg PO BEDTIME MRX1 PRN PRN Reason: Insomnia Last Admin: 02/12/24 21:05 Dose: 50 mg Allergies Allergies Allergy/AdvReac Type Severity Reaction Status Date / Time haloperidol [From Haldol] AdvReac see note Verified 02/04/24 08:51 Assessment & Plan Assessment & Plan (1) MDD (major depressive disorder), recurrent episode, moderate: Status: Acute Code(s): F33.1 - Major depressive disorder, recurrent, moderate (2) Post traumatic stress disorder (PTSD): Status: Acute Code(s): F43.10 - Post-traumatic stress disorder, unspecified (3) Opioid use disorder: Status: Acute Code(s): F11.90 - Opioid use, unspecified, uncomplicated (4) Cocaine use disorder: Status: Acute Code(s): F14.10 - Cocaine abuse, uncomplicated (5) Homeless single person: Status: Acute Code(s): Z59.00 - Homelessness unspecified Plan Patient is a 49-year-old male with history of MDD, PTSD, opiate use disorder and cocaine use disorder who was brought in by ambulance from a hotel after a suicide attempt by overdose on multiple substances. Plan: CV 15 minute safety checks Review past medications Continue home medications Addiction medicine consult Build rapport Encourage groups Discharge planning 02/08: Laying in bed most of shift. Irritable. Guarded. Pt reports feeling anxious and depressed ; pt stated, I'm hearing voices telling me to kill myself. They told me to sniff all the bags of drugs. I felt like I had a devil and tony on my shoulders . Pt continues to report auditory hallucinations. He reports suicidal ideation with no plan. denies HI/VH. Pt reports he would like to go to respite after discharge. pt c/o of withdrawal symptoms; seen by addiction medicine. 02/09:Irritable. Guarded. Pt reports feeling depressed ; pt continues to report auditory hallucinations. He reports suicidal ideation with no plan. Pt stated, I always feel suicidal . denies HI/VH. Pt reports he would prefer to be referred to a respite or correction in [place] or [place]. Continue current tx plan. 02/10: Irritable. Guarded. Refusing to meet with T/W at first, despite multiple attempts. Pt stated, Oh my God. I don't want to talk. Just stay quiet . Observed going into room mates belongings; pt was redirected. Later in the morning, pt agreed to speak to T/W while pacing unit hallway. Pt reports feeling okay ; he reports auditory hallucinations off and on throughout the day. Denies HI/VH. Passive SI with no plan. Pt reports he wants to be discharged to a correction in [place]; social work aware. Labs ordered. 02/11 keep same treatment. 02/12 the patient looks more confused than usual, I am ordering new blood work for tomorrow morning. Ammonia level, comprehensive metabolic panel and CBC with differential Reason for continued inpatient stay Substantial Risk for: inability to function, rapid decompensation and med/psych decompensation Time Spent With Patient Time: Total time managing care of this patient today _20___ minutes.
[2024-02-13 08:15] VITALS: BP 126/79; PULSE 73; RESP 16; TEMP 36.7; O2SAT 98
[2024-02-13] MEDS: methADONE HCl 20 MG/2 ML ORAL.CONC 60 MG PO (08:40)
[2024-02-13] MEDS: buPROPion HCl XL 150 MG TAB.ER.24H PO (09:04)
[2024-02-13] MEDS: cloNIDine HCL 0.1 MG TABLET PO (09:04)
[2024-02-13] MEDS: QUEtiapine Fumarate 200 MG TABLET PO (09:04)
[2024-02-13] MEDS: PARoxetine HCL 20 MG TABLET PO (09:05)
[2024-02-13] MEDS: OLANZapine 5 MG TABLET PO (11:01)
[2024-02-13 14:08] VITALS: BP 114/76; PULSE 76; RESP 16; TEMP 36.8; O2SAT 98
[2024-02-13 20:00] VITALS: RESP 20
[2024-02-13 22:00] VITALS: RESP 20
[2024-02-14 07:20] VITALS: BP 122/77; PULSE 68; RESP 14; TEMP 36.9; O2SAT 97
[2024-02-14 08:00] VITALS: PULSE 68
[2024-02-14] MEDS: methADONE HCl 20 MG/2 ML ORAL.CONC 60 MG PO (08:21)
[2024-02-14 08:24] VITALS: BP 122/77
[2024-02-14] MEDS: cloNIDine HCL 0.1 MG TABLET PO ×2 (08:24→20:34)
[2024-02-14] MEDS: PARoxetine HCL 20 MG TABLET PO (08:24)
[2024-02-14] MEDS: QUEtiapine Fumarate 200 MG TABLET PO ×2 (08:24→20:34)
[2024-02-14] MEDS: buPROPion HCl XL 150 MG TAB.ER.24H PO (08:24)
[2024-02-14 14:00] VITALS: RESP 18
--- NOTE | 2024-02-14 14:05 | MHC.RECOVRN ---
Met with pt to follow up regarding methadone. Pt awake, alert, difficult to engage in conversation, pacing his room. Denies withdrawal symptoms, reports 60 mg dose is good. Pt denies questions or concerns for t/w. Clotilde Pan APRN, aware.
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
--- NOTE | 2024-02-14 15:23 | P.PNPSI_ITS ---
Subjective Subjective Date of Service: 02/14/24 Reason For Visit: crisis Interim History: stumbling about a bit. fecal incontinence in the [place]avez, per staff. c/o feeling confused, poor memory. agrees to decrease seroquel and paxil dosing. agreeable to medical consult. per staff, disorganized, confused, wandering, spreading cream cheese around unit. irritable, refused labs this morning. Mental Status Exam Mental Status Exam Narrative: Pt is somewhat groggy, oriented; behavior is guarded; dressed in casual attire; mood is not assessed; eye contact appropriate; Speech is normal rate, volume and not pressured; thought process is organized; Thought content is on confusion; no SI/SIBI/HI/AVH expressed. Diagnostics Vital Signs (24Hr): Vital Signs - 24 hr 02/13/24 20:00 02/13/24 22:00 02/14/24 07:20 Temperature 98.5 F Pulse Rate 68 Respiratory Rate 20 20 14 Blood Pressure 122/77 Pulse Oximetry 97 Oxygen Delivery Method Room Air 02/14/24 08:24 02/14/24 14:00 Temperature Pulse Rate Respiratory Rate 18 Blood Pressure 122/77 Pulse Oximetry Oxygen Delivery Method BMI result Body Mass Index 24.2 Labs 02/04/24 09:50 02/04/24 09:50 Imaging Radiology Impressions: ITS Impressions Chest X-Ray 02/04/24 08:52 IMPRESSION: No acute pulmonary disease. Few streaky linear right lung base opacities are favored to represent atelectasis. Electronically signed by: Kory Jernigan MD 02/04/2024 11:26 AM EDT Medications Medications Current Medications Acetaminophen (Acetaminophen 325 Mg Tablet) 650 mg PO Q6H PRN PRN Reason: Headache/Pain Mild Scale (1-3) Al Hydroxide/Mg Hydroxide (Magnesium Hydrox/Alum Hydrox 30 Ml Oral.Susp) 30 ml PO Q6H PRN PRN Reason: Heartburn/Nausea Bupropion HCl (Bupropion Hcl Xl 150 Mg Tab.Er.24h) 150 mg PO DAILY [facility] Last Admin: 02/14/24 08:24 Dose: 150 mg Clonidine HCl (Clonidine Hcl 0.1 Mg Tablet) 0.1 mg PO BID [facility]; Protocol Last Admin: 02/14/24 08:24 Dose: 0.1 mg Hydroxyzine HCl (Hydroxyzine Hcl 25 Mg Tablet) 25 mg PO Q6H PRN PRN Reason: Anxiety Last Admin: 02/12/24 21:06 Dose: 25 mg Ibuprofen (Ibuprofen 600 Mg Tablet) 600 mg PO Q8H PRN PRN Reason: Pain, Moderate(Pain Scale 4-6) Last Admin: 02/11/24 21:52 Dose: 600 mg Loperamide HCl (Loperamide Hcl 2 Mg Capsule) 4 mg PO Q6H PRN PRN Reason: Loose Stool Last Admin: 02/11/24 08:23 Dose: 4 mg Magnesium Hydroxide (Milk Of Magnesia 30 Ml Oral.Susp) 30 ml PO DAILY PRN PRN Reason: Constipation Methadone HCl (Methadone Hcl 20 Mg/2 Ml Oral.Conc) 60 mg PO DAILY@0800 [facility] Last Admin: 02/14/24 08:21 Dose: 60 mg Nicotine (Nicotine 21 Mg Patch.Td24) 21 mg TRANSDERMA DAILY [facility] Last Admin: 02/14/24 08:25 Dose: Not Given Nicotine Polacrilex (Nicotine Polacrilex 2 Mg Gum) 4 mg BUCCAL Q2H PRN PRN Reason: Nicotine Cravings Olanzapine (Olanzapine 5 Mg Tablet) 5 mg PO Q4H PRN PRN Reason: agitation Last Admin: 02/13/24 11:01 Dose: 5 mg Ondansetron HCl (Ondansetron Odt 8 Mg Tab.Rapdis) 8 mg TRANSLINGU Q12H PRN PRN Reason: Nausea and Vomiting Paroxetine HCl (Paroxetine Hcl 10 Mg Tablet) 10 mg PO DAILY [facility] Quetiapine Fumarate (Quetiapine Fumarate 200 Mg Tablet) 200 mg PO BEDTIME [facility] Trazodone HCl (Trazodone Hcl 50 Mg Tablet) 50 mg PO BEDTIME MRX1 PRN PRN Reason: Insomnia Last Admin: 02/12/24 21:05 Dose: 50 mg Allergies Allergies Allergy/AdvReac Type Severity Reaction Status Date / Time haloperidol [From Haldol] AdvReac see note Verified 02/04/24 08:51 Assessment & Plan Assessment & Plan (1) Acute encephalopathy: Status: Acute Code(s): G93.40 - Encephalopathy, unspecified Assessment and Plan: Patient is a 49-year-old male on adult Psychiatry for SI who we were contacted to consult regarding delirium to rule out acute medical etiology of change in mental status. There have been reports of him stumbling around and fecal incontinence. Likely metabolic encephalopathy due to recent drug use and psychiatric medication. Patient was agreeable to go for blood work. Head CT pending. Labs including CBC, CMP, ammonia, CPK, urine tox and urinalysis were ordered. Patient did not appear to have altered mental status when evaluated by me today. Discussed the importance of further workup and the reasoning why. He was cooperative and agreed to the above testing. Plan Patient is a 49-year-old male with history of MDD, PTSD, opiate use disorder and cocaine use disorder who was brought in by ambulance from a hotel after a suicide attempt by overdose on multiple substances. Plan: CV 15 minute safety checks Review past medications Continue home medications Addiction medicine consult Build rapport Encourage groups Discharge planning 02/08: Laying in bed most of shift. Irritable. Guarded. Pt reports feeling anxious and depressed ; pt stated, I'm hearing voices telling me to kill myself. They told me to sniff all the bags of drugs. I felt like I had a devil and tony on my shoulders . Pt continues to report auditory hallucinations. He reports suicidal ideation with no plan. denies HI/VH. Pt reports he would like to go to respite after discharge. pt c/o of withdrawal symptoms; seen by addiction medicine. 02/09:Irritable. Guarded. Pt reports feeling depressed ; pt continues to report auditory hallucinations. He reports suicidal ideation with no plan. Pt stated, I always feel suicidal . denies HI/VH. Pt reports he would prefer to be referred to a respite or retirement in [place] or [place]. Continue current tx plan. 02/10: Irritable. Guarded. Refusing to meet with T/W at first, despite multiple attempts. Pt stated, Oh my God. I don't want to talk. Just stay quiet . Observed going into room mates belongings; pt was redirected. Later in the morning, pt agreed to speak to T/W while pacing unit hallway. Pt reports feeling okay ; he reports auditory hallucinations off and on throughout the day. Denies HI/VH. Passive SI with no plan. Pt reports he wants to be discharged to a retirement in [place]; social work aware. Labs ordered. 02/11 keep same treatment. 02/12 the patient looks more confused than usual, I am ordering new blood work for tomorrow morning. Ammonia level, comprehensive metabolic panel and CBC with differential 02/13: refused bloodwork. looking delirious this morning, a bit unsteady on the feet and fecal incontinence. hospitalist consult done, pt amenable to labs now. will check head CT, UA, UDS, and various serum labs. decrease paxil and seroquel by half to minimize anti-histaminergic and cholinergic medications. Reason for continued inpatient stay Substantial Risk for: inability to function and rapid decompensation Time Spent With Patient Time: Total time managing care of this patient today _35___ minutes.
[2024-02-14 15:59] LABS: MANUAL DIFF FLAG NO
[2024-02-14 16:02] LABS: Basophils Percent Auto 0.6 % (0-2); Eosinophils Absolute Auto 0.1 X10*3/uL (0.0-0.4); Eosinophils Percent Auto 2.1 % (0-4); Hematocrit 36.5 % (42.0-52.0); Hemoglobin 11.6 g/dl (14.0-18.0); Imm Gran Abs Auto 0.01 X10*3/uL (0.00-0.03); Imm Gran Pct Auto 0.2 % (0.0-0.4); Lymphocytes Absolute Auto 1.8 X10*3/uL (1.2-4.9); Lymphocytes Percent Auto 33.4 % (20-40); Mean Corpuscular HGB Conc 31.8 g/dl (31.0-36.0); Mean Corpuscular Hemoglobin 27.4 pg (27.0-33.0); Mean Corpuscular Volume 86.1 fL (80.0-98.0); Mean Platelet Volume 9.6 fL (9.4-12.4); Monocytes Absolute Auto 0.6 X10*3/uL (0.1-1.2); Monocytes Percent Auto 11.8 % (2-11); Neutrophils Absolute Auto 2.8 x10*3/uL (2.0-8.3); Neutrophils Percent Auto 51.9 % (45-73); Platelet Count 284 X10*3/uL (160-400); Red Blood Count 4.24 X10*6/uL (4.60-5.80); Red Cell Distribution Width 15.5 % (11.0-16.0); White Blood Count 5.4 X10*3/uL (4.8-10.8)
[2024-02-14 16:16] LABS: Ammonia 34 umol/L (13-55)
[2024-02-14 16:23] LABS: Alanine Aminotransferase 29 U/L (0-40); Albumin Level 4.6 g/dL (3.5-5.0); Alkaline Phosphatase 123 U/L (39-117); Anion Gap 13 (12-20); Aspartate Amino Transferase 26 U/L (5-37); Bilirubin Total 0.6 mg/dL (0.0-1.0); Blood Urea Nitrogen 29 mg/dL (9-16); Calcium 9.8 mg/dL (8.4-10.2); Carbon Dioxide 26 mmol/L (22-29); Chloride 107 mmol/L (96-108); Creatinine Clr Calc Pharmacy 54.4; Estimated Glomerular Filt Rate 42; Glucose Random 110 mg/dL (60-115); Potassium 4.5 mmol/L (3.3-5.1); Sodium 141 mmol/L (135-145); Total Protein 8.2 g/dL (6.5-8.0)
[2024-02-14 20:15] VITALS: BP 120/74; PULSE 98; RESP 18; TEMP 36.4; O2SAT 97
[2024-02-14] MEDS: 0.9 % Sodium Chloride 1,000 ML 999 ML IVCONT ×2 (20:34→21:30)
[2024-02-15 08:00] VITALS: PULSE 59
[2024-02-15] MEDS: methADONE HCl 20 MG/2 ML ORAL.CONC 60 MG PO (08:29)
[2024-02-15 08:30] VITALS: BP 121/62; PULSE 59; RESP 16; TEMP 37.1; O2SAT 99
[2024-02-15] MEDS: PARoxetine HCL 10 MG TABLET PO (08:34)
[2024-02-15 08:35] VITALS: BP 121/62
[2024-02-15] MEDS: buPROPion HCl XL 150 MG TAB.ER.24H PO (08:35)
[2024-02-15] MEDS: Loperamide HCl 2 MG CAPSULE 4 MG PO (08:35)
[2024-02-15] MEDS: cloNIDine HCL 0.1 MG TABLET PO (08:35)
[2024-02-15] MEDS: 0.9 % Sodium Chloride Flush 10 ML SYRINGE 5 ML IVFLUSH ×2 (08:36→15:37)
--- NOTE | 2024-02-15 09:05 | PC.NURSE ---
Attempted to educate pt on the need for a bladder scan, pt became agitated and stated I already peed, I'm going to sleep, don't bother me. Provider Kaylie zelaya.
--- NOTE | 2024-02-15 09:22 | HO.PSYCHPN ---
Subjective Subjective Date of Service: 02/15/24 Reason For Visit: crisis Subjective Notes: Conditional Voluntary Interim History: Reviewed with Dr. Vasquez. Active on unit. Guarded. Pt reports feeling fine ; presents more organized today. Pt stated, I don't know why I was confused. I feel okay right now . Pt was seen by hospitalist; please see note. BMP to be drawn tomorrow. Pt reported difficulty urinating; bladder scan showed 198mL; waiting for UA results. Pt continues to report loose stools despite being given Imodium; GI consult placed d/t loose stool for 4 days/hx of colostomy. Medication Compliance: Yes Side effects from medications: No Attending Groups: Intermittent Review of Systems Constitutional: Reports as per HPI Eyes: Reports as per HPI Reports as per HPI Cardiovascular: Reports as per HPI Respiratory: Reports as per HPI Musculoskeletal: Reports as per HPI Skin/Breast: Reports as per HPI Reports as per HPI Psychiatric: Reports as per HPI Endocrine: Reports as per HPI Hematologic/Lymphatic: Reports as per HPI Allergic/Immunologic: Reports as per HPI Mental Status Exam Mental Status Exam Narrative: Pt is alert and oriented; behavior is guarded, calm; dressed in casual attire; mood is described as fine ; poor eye contact; Speech is normal rate, volume and not pressured; focused on tx; irritable and difficult to engage in conversation. Diagnostics Vital Signs (24Hr): Vital Signs - 24 hr 02/14/24 14:00 02/14/24 20:15 02/15/24 08:30 Temperature 97.6 F 98.7 F Pulse Rate 98 59 Respiratory Rate 18 18 16 Blood Pressure 120/74 121/62 Pulse Oximetry 97 99 Oxygen Delivery Method Room Air Room Air 02/15/24 08:35 Temperature Pulse Rate Respiratory Rate Blood Pressure 121/62 Pulse Oximetry Oxygen Delivery Method BMI result Body Mass Index 24.2 Labs 02/14/24 15:53 02/14/24 15:53 Labs: Laboratory Results - last 48 hr 02/14/24 15:53 WBC 5.4 RBC 4.24 L Hgb 11.6 L Hct 36.5 L MCV 86.1 MCH 27.4 MCHC 31.8 RDW 15.5 Plt Count 284 MPV 9.6 Immature Gran % (Auto) 0.2 Neut % (Auto) 51.9 Lymph % (Auto) 33.4 [place] % (Auto) 11.8 H Eos % (Auto) 2.1 Baso % (Auto) 0.6 Lymph # (Auto) 1.8 [place] # (Auto) 0.6 Eos # (Auto) 0.1 Baso # (Auto) 0.0 Abs Immat Gran (auto) 0.01 Absolute Neuts (auto) 2.8 Absolute Nucleated RBC 0.000 Nucleated RBC % (auto) 0.0 Sodium 141 Potassium 4.5 Chloride 107 Carbon Dioxide 26 Anion Gap 13 BUN 29 H Creatinine 1.71 H Estim Creat Clear Calc 54.4 Estimated GFR 42 Random Glucose 110 Calcium 9.8 Total Bilirubin 0.6 AST 26 ALT 29 Alkaline Phosphatase 123 H Ammonia 34 Total Creatine Kinase 144 Total Protein 8.2 H Albumin 4.6 Imaging Radiology Impressions: ITS Impressions Chest X-Ray 02/04/24 08:52 IMPRESSION: No acute pulmonary disease. Few streaky linear right lung base opacities are favored to represent atelectasis. Electronically signed by: Kory Jernigan MD 02/04/2024 11:26 AM EDT RP Head CT 02/14/24 13:49 IMPRESSION: No acute intracranial pathology. Electronically signed by: Pascale Robb MD 02/14/2024 08:02 PM EDT RP Medications Medications Current Medications Acetaminophen (Acetaminophen 325 Mg Tablet) 650 mg PO Q6H PRN PRN Reason: Headache/Pain Mild Scale (1-3) Al Hydroxide/Mg Hydroxide (Magnesium Hydrox/Alum Hydrox 30 Ml Oral.Susp) 30 ml PO Q6H PRN PRN Reason: Heartburn/Nausea Bupropion HCl (Bupropion Hcl Xl 150 Mg Tab.Er.24h) 150 mg PO DAILY [facility] Last Admin: 02/15/24 08:35 Dose: 150 mg Clonidine HCl (Clonidine Hcl 0.1 Mg Tablet) 0.1 mg PO BID [facility]; Protocol Last Admin: 02/15/24 08:35 Dose: 0.1 mg Hydroxyzine HCl (Hydroxyzine Hcl 25 Mg Tablet) 25 mg PO Q6H PRN PRN Reason: Anxiety Last Admin: 02/12/24 21:06 Dose: 25 mg Loperamide HCl (Loperamide Hcl 2 Mg Capsule) 4 mg PO Q6H PRN PRN Reason: Loose Stool Last Admin: 02/15/24 08:35 Dose: 4 mg Magnesium Hydroxide (Milk Of Magnesia 30 Ml Oral.Susp) 30 ml PO DAILY PRN PRN Reason: Constipation Methadone HCl (Methadone Hcl 20 Mg/2 Ml Oral.Conc) 60 mg PO DAILY@0800 [facility] Last Admin: 02/15/24 08:29 Dose: 60 mg Nicotine (Nicotine 21 Mg Patch.Td24) 21 mg TRANSDERMA DAILY [facility] Last Admin: 02/15/24 08:54 Dose: Not Given Nicotine Polacrilex (Nicotine Polacrilex 2 Mg Gum) 4 mg BUCCAL Q2H PRN PRN Reason: Nicotine Cravings Olanzapine (Olanzapine 5 Mg Tablet) 5 mg PO Q4H PRN PRN Reason: agitation Last Admin: 02/13/24 11:01 Dose: 5 mg Ondansetron HCl (Ondansetron Odt 8 Mg Tab.Rapdis) 8 mg TRANSLINGU Q12H PRN PRN Reason: Nausea and Vomiting Paroxetine HCl (Paroxetine Hcl 10 Mg Tablet) 10 mg PO DAILY [facility] Last Admin: 02/15/24 08:34 Dose: 10 mg Quetiapine Fumarate (Quetiapine Fumarate 200 Mg Tablet) 200 mg PO BEDTIME [facility] Last Admin: 02/14/24 20:34 Dose: 200 mg Sodium Chloride (0.9 % Sodium Chloride Flush 10 Ml Syringe) 5 ml IVFLUSH QSHIFT [facility] Last Admin: 02/15/24 08:36 Dose: 5 ml Trazodone HCl (Trazodone Hcl 50 Mg Tablet) 50 mg PO BEDTIME MRX1 PRN PRN Reason: Insomnia Last Admin: 02/12/24 21:05 Dose: 50 mg Allergies Allergies Allergy/AdvReac Type Severity Reaction Status Date / Time haloperidol [From Haldol] AdvReac see note Verified 02/04/24 08:51 Assessment & Plan Assessment & Plan (1) MDD (major depressive disorder), recurrent, severe, with psychosis: Status: Acute Code(s): F33.3 - Major depressive disorder, recurrent, severe with psychotic symptoms (2) Acute encephalopathy: Status: Acute Code(s): G93.40 - Encephalopathy, unspecified Assessment and Plan: Patient is a 49-year-old male on adult Psychiatry for SI who we were contacted to consult regarding delirium to rule out acute medical etiology of change in mental status. There have been reports of him stumbling around and fecal incontinence. Likely metabolic encephalopathy due to recent drug use and psychiatric medication. Patient was agreeable to go for blood work. Head CT pending. Labs including CBC, CMP, ammonia, CPK, urine tox and urinalysis were ordered. Patient did not appear to have altered mental status when evaluated by me today. Discussed the importance of further workup and the reasoning why. He was cooperative and agreed to the above testing. (3) Opioid use disorder: Status: Acute Code(s): F11.90 - Opioid use, unspecified, uncomplicated (4) Cocaine use disorder: Status: Acute Code(s): F14.10 - Cocaine abuse, uncomplicated (5) Homeless single person: Status: Acute Code(s): Z59.00 - Homelessness unspecified Plan Patient is a 49-year-old male with history of MDD, PTSD, opiate use disorder and cocaine use disorder who was brought in by ambulance from a hotel after a suicide attempt by overdose on multiple substances. Plan: CV 15 minute safety checks Review past medications Continue home medications Addiction medicine consult Build rapport Encourage groups Discharge planning 02/08: Laying in bed most of shift. Irritable. Guarded. Pt reports feeling anxious and depressed ; pt stated, I'm hearing voices telling me to kill myself. They told me to sniff all the bags of drugs. I felt like I had a devil and tony on my shoulders . Pt continues to report auditory hallucinations. He reports suicidal ideation with no plan. denies HI/VH. Pt reports he would like to go to respite after discharge. pt c/o of withdrawal symptoms; seen by addiction medicine. 02/09:Irritable. Guarded. Pt reports feeling depressed ; pt continues to report auditory hallucinations. He reports suicidal ideation with no plan. Pt stated, I always feel suicidal . denies HI/VH. Pt reports he would prefer to be referred to a respite or residential in [place] or [place]. Continue current tx plan. 02/10: Irritable. Guarded. Refusing to meet with T/W at first, despite multiple attempts. Pt stated, Oh my God. I don't want to talk. Just stay quiet . Observed going into room mates belongings; pt was redirected. Later in the morning, pt agreed to speak to T/W while pacing unit hallway. Pt reports feeling okay ; he reports auditory hallucinations off and on throughout the day. Denies HI/VH. Passive SI with no plan. Pt reports he wants to be discharged to a residential in [place]; social work aware. Labs ordered. 02/11 keep same treatment. 02/12 the patient looks more confused than usual, I am ordering new blood work for tomorrow morning. Ammonia level, comprehensive metabolic panel and CBC with differential 02/13: refused bloodwork. looking delirious this morning, a bit unsteady on the feet and fecal incontinence. hospitalist consult done, pt amenable to labs now. will check head CT, UA, UDS, and various serum labs. decrease paxil and seroquel by half to minimize anti-histaminergic and cholinergic medications. 02/14: Active on unit. Guarded. Pt reports feeling fine ; presents more organized today. Pt stated, I don't know why I was confused. I feel okay right now . Pt was seen by hospitalist; please see note. BMP to be drawn tomorrow. Pt reported difficulty urinating; bladder scan showed 198mL; waiting for UA results. Pt continues to report loose stools despite being given Imodium; GI consult placed d/t loose stool for 4 days/hx of colostomy. Patient educated on: diagnosis and medication risk/benefits Reason for continued inpatient stay Substantial Risk for: med/psych decompensation Time Spent With Patient Time: Total time managing care of this patient today _30___ minutes.
--- NOTE | 2024-02-15 11:57 | PC.NURSE ---
Pt was unable to void, bladder scan showed 198 mL, provider aware.
--- NOTE | 2024-02-15 13:11 | PM.EVENT ---
Event Note Date of Service: 02/15/24 Event Note: saw pt yesterday for delirium to assess for acute medical cause. when examining pt he did not appear to have altered mental status. he agreed to labs yesterday, which showed increased creatinine, BERNARD. BPs have been low. encourage pt to push fluids and recheck BMP tomorrow. Time Spent With Patient Time: Total time managing care of this patient today ____ minutes.
--- NOTE | 2024-02-15 13:34 | PC.NURSE ---
RN provided pt with urine cup for UA, pt reported difficulty urinating and would try again later. Provider aware.
[2024-02-15 14:56] LABS: Appearance Urine Clear; Color Urine Yellow; Glucose Urine UA Negative (Negative); Leukocyte Esterase Urine Negative (Negative); Nitrite Urine Negative (Negative); PH 5.5 (5.0-9.0); Urine Blood Negative (Negative); Urine Ketones Negative (Negative); Urine Protein Negative (Neg-Trace)
--- NOTE | 2024-02-15 15:47 | PC.NURSE ---
Pt was able to void and provided a urine sample for a clean catch but pt refused to allow for a bladder scan post-void.
[2024-02-15 20:00] VITALS: BP 128/74; PULSE 68; RESP 16; TEMP 36.5; O2SAT 98
--- NOTE | 2024-02-15 23:56 | PC.NURSE ---
Patient resistive to treatment. Refused to have IV in right forearm flushed.
[2024-02-16] MEDS: methADONE HCl 20 MG/2 ML ORAL.CONC 60 MG PO (08:04)
[2024-02-16 09:16] VITALS: BP 117/60; PULSE 65; RESP 16; TEMP 36.9; O2SAT 98
[2024-02-16] MEDS: PARoxetine HCL 10 MG TABLET PO (09:28)
[2024-02-16] MEDS: buPROPion HCl XL 150 MG TAB.ER.24H PO (09:29)
[2024-02-16] MEDS: cloNIDine HCL 0.1 MG TABLET PO (09:29)
[2024-02-16] MEDS: 0.9 % Sodium Chloride Flush 10 ML SYRINGE 5 ML IVFLUSH ×2 (09:38→15:09)
[2024-02-16 09:43] VITALS: PULSE 94
--- NOTE | 2024-02-16 10:01 | P.PNPSI_ITS ---
Subjective Subjective Date of Service: 02/16/24 Reason For Visit: crisis Subjective Notes: Conditional Voluntary Interim History: Reviewed with Dr. Vasquez. Active on unit. Guarded. Attending some groups. Pt reports feeling okay ; Confused at times. incontinent of urine x1 today. denies SI/HI/VH/AH. Neurology consult placed. Waiting on GI consult and BMP results. Medication Compliance: Yes Side effects from medications: No Attending Groups: Intermittent Review of Systems Constitutional: Reports as per HPI Eyes: Reports as per HPI Reports as per HPI Cardiovascular: Reports as per HPI Respiratory: Reports as per HPI Musculoskeletal: Reports as per HPI Skin/Breast: Reports as per HPI Reports as per HPI Psychiatric: Reports as per HPI Endocrine: Reports as per HPI Hematologic/Lymphatic: Reports as per HPI Allergic/Immunologic: Reports as per HPI Mental Status Exam Mental Status Exam Narrative: Pt is alert and oriented; behavior is guarded, calm; dressed in casual attire; mood is described as okay ; poor eye contact; Speech is normal rate, volume and not pressured; focused on tx; irritable and difficult to engage in conversation. Diagnostics Vital Signs (24Hr): Vital Signs - 24 hr 02/15/24 20:00 02/16/24 09:16 Temperature 97.7 F 98.4 F Pulse Rate 68 65 Respiratory Rate 16 16 Blood Pressure 128/74 117/60 Pulse Oximetry 98 98 Oxygen Delivery Method Room Air Room Air BMI result Body Mass Index 24.2 Labs 02/14/24 15:53 02/14/24 15:53 Labs: Laboratory Results - last 48 hr 02/14/24 02/15/24 15:53 14:44 WBC 5.4 RBC 4.24 L Hgb 11.6 L Hct 36.5 L MCV 86.1 MCH 27.4 MCHC 31.8 RDW 15.5 Plt Count 284 MPV 9.6 Immature Gran % (Auto) 0.2 Neut % (Auto) 51.9 Lymph % (Auto) 33.4 [place] % (Auto) 11.8 H Eos % (Auto) 2.1 Baso % (Auto) 0.6 Lymph # (Auto) 1.8 [place] # (Auto) 0.6 Eos # (Auto) 0.1 Baso # (Auto) 0.0 Abs Immat Gran (auto) 0.01 Absolute Neuts (auto) 2.8 Absolute Nucleated RBC 0.000 Nucleated RBC % (auto) 0.0 Sodium 141 Potassium 4.5 Chloride 107 Carbon Dioxide 26 Anion Gap 13 BUN 29 H Creatinine 1.71 H Estim Creat Clear Calc 54.4 Estimated GFR 42 Random Glucose 110 Calcium 9.8 Total Bilirubin 0.6 AST 26 ALT 29 Alkaline Phosphatase 123 H Ammonia 34 Total Creatine Kinase 144 Total Protein 8.2 H Albumin 4.6 Urine Color Yellow Urine Appearance Clear Urine pH 5.5 Ur Specific [place] 1.020 Urine Protein Negative Urine Glucose (UA) Negative Urine Ketones Negative Urine Blood Negative Urine Nitrite Negative Ur Leukocyte Esterase Negative Imaging Radiology Impressions: ITS Impressions Chest X-Ray 02/04/24 08:52 IMPRESSION: No acute pulmonary disease. Few streaky linear right lung base opacities are favored to represent atelectasis. Electronically signed by: Kory Jernigan MD 02/04/2024 11:26 AM EDT RP Head CT 02/14/24 13:49 IMPRESSION: No acute intracranial pathology. Electronically signed by: Pascale Robb MD 02/14/2024 08:02 PM EDT RP Medications Medications Current Medications Acetaminophen (Acetaminophen 325 Mg Tablet) 650 mg PO Q6H PRN PRN Reason: Headache/Pain Mild Scale (1-3) Al Hydroxide/Mg Hydroxide (Magnesium Hydrox/Alum Hydrox 30 Ml Oral.Susp) 30 ml PO Q6H PRN PRN Reason: Heartburn/Nausea Bupropion HCl (Bupropion Hcl Xl 150 Mg Tab.Er.24h) 150 mg PO DAILY [facility] Last Admin: 02/16/24 09:29 Dose: 150 mg Clonidine HCl (Clonidine Hcl 0.1 Mg Tablet) 0.1 mg PO BID [facility]; Protocol Last Admin: 02/16/24 09:29 Dose: 0.1 mg Hydroxyzine HCl (Hydroxyzine Hcl 25 Mg Tablet) 25 mg PO Q6H PRN PRN Reason: Anxiety Last Admin: 02/12/24 21:06 Dose: 25 mg Loperamide HCl (Loperamide Hcl 2 Mg Capsule) 4 mg PO Q6H PRN PRN Reason: Loose Stool Last Admin: 02/15/24 08:35 Dose: 4 mg Magnesium Hydroxide (Milk Of Magnesia 30 Ml Oral.Susp) 30 ml PO DAILY PRN PRN Reason: Constipation Methadone HCl (Methadone Hcl 20 Mg/2 Ml Oral.Conc) 60 mg PO DAILY@0800 [facility] Last Admin: 02/16/24 08:04 Dose: 60 mg Nicotine Polacrilex (Nicotine Polacrilex 2 Mg Gum) 4 mg BUCCAL Q2H PRN PRN Reason: Nicotine Cravings Olanzapine (Olanzapine 5 Mg Tablet) 5 mg PO Q4H PRN PRN Reason: agitation Last Admin: 02/13/24 11:01 Dose: 5 mg Ondansetron HCl (Ondansetron Odt 8 Mg Tab.Rapdis) 8 mg TRANSLINGU Q12H PRN PRN Reason: Nausea and Vomiting Paroxetine HCl (Paroxetine Hcl 10 Mg Tablet) 10 mg PO DAILY [facility] Last Admin: 02/16/24 09:28 Dose: 10 mg Quetiapine Fumarate (Quetiapine Fumarate 200 Mg Tablet) 200 mg PO BEDTIME [facility] Last Admin: 02/15/24 21:41 Dose: Not Given Sodium Chloride (0.9 % Sodium Chloride Flush 10 Ml Syringe) 5 ml IVFLUSH QSHIFT [facility] Last Admin: 02/16/24 09:38 Dose: 5 ml Trazodone HCl (Trazodone Hcl 50 Mg Tablet) 50 mg PO BEDTIME MRX1 PRN PRN Reason: Insomnia Last Admin: 02/12/24 21:05 Dose: 50 mg Allergies Allergies Allergy/AdvReac Type Severity Reaction Status Date / Time haloperidol [From Haldol] AdvReac see note Verified 02/04/24 08:51 Assessment & Plan Assessment & Plan (1) MDD (major depressive disorder), recurrent, severe, with psychosis: Status: Acute Code(s): F33.3 - Major depressive disorder, recurrent, severe with psychotic symptoms (2) Acute encephalopathy: Status: Acute Code(s): G93.40 - Encephalopathy, unspecified Assessment and Plan: Patient is a 49-year-old male on adult Psychiatry for SI who we were contacted to consult regarding delirium to rule out acute medical etiology of change in mental status. There have been reports of him stumbling around and fecal incontinence. Likely metabolic encephalopathy due to recent drug use and psychiatric medication. Patient was agreeable to go for blood work. Head CT pending. Labs including CBC, CMP, ammonia, CPK, urine tox and urinalysis were ordered. Patient did not appear to have altered mental status when evaluated by me today. Discussed the importance of further workup and the reasoning why. He was cooperative and agreed to the above testing. (3) Opioid use disorder: Status: Acute Code(s): F11.90 - Opioid use, unspecified, uncomplicated (4) Cocaine use disorder: Status: Acute Code(s): F14.10 - Cocaine abuse, uncomplicated (5) Homeless single person: Status: Acute Code(s): Z59.00 - Homelessness unspecified Plan Patient is a 49-year-old male with history of MDD, PTSD, opiate use disorder and cocaine use disorder who was brought in by ambulance from a hotel after a suicide attempt by overdose on multiple substances. Plan: CV 15 minute safety checks Review past medications Continue home medications Addiction medicine consult Build rapport Encourage groups Discharge planning 02/08: Laying in bed most of shift. Irritable. Guarded. Pt reports feeling anxious and depressed ; pt stated, I'm hearing voices telling me to kill myself. They told me to sniff all the bags of drugs. I felt like I had a devil and tony on my shoulders . Pt continues to report auditory hallucinations. He reports suicidal ideation with no plan. denies HI/VH. Pt reports he would like to go to respite after discharge. pt c/o of withdrawal symptoms; seen by addiction medicine. 02/09:Irritable. Guarded. Pt reports feeling depressed ; pt continues to report auditory hallucinations. He reports suicidal ideation with no plan. Pt stated, I always feel suicidal . denies HI/VH. Pt reports he would prefer to be referred to a respite or penitentiary in [place] or [place]. Continue current tx plan. 02/10: Irritable. Guarded. Refusing to meet with T/W at first, despite multiple attempts. Pt stated, Oh my God. I don't want to talk. Just stay quiet . Observed going into room mates belongings; pt was redirected. Later in the morning, pt agreed to speak to T/W while pacing unit hallway. Pt reports feeling okay ; he reports auditory hallucinations off and on throughout the day. Denies HI/VH. Passive SI with no plan. Pt reports he wants to be discharged to a penitentiary in [place]; social work aware. Labs ordered. 02/11 keep same treatment. 02/12 the patient looks more confused than usual, I am ordering new blood work for tomorrow morning. Ammonia level, comprehensive metabolic panel and CBC with differential 02/13: refused bloodwork. looking delirious this morning, a bit unsteady on the feet and fecal incontinence. hospitalist consult done, pt amenable to labs now. will check head CT, UA, UDS, and various serum labs. decrease paxil and seroquel by half to minimize anti-histaminergic and cholinergic medications. 02/14: Active on unit. Guarded. Pt reports feeling fine ; presents more organized today. Pt stated, I don't know why I was confused. I feel okay right now . Pt was seen by hospitalist; please see note. BMP to be drawn tomorrow. Pt reported difficulty urinating; bladder scan showed 198mL; waiting for UA results. Pt continues to report loose stools despite being given Imodium; GI consult placed d/t loose stool for 4 days/hx of colostomy. 02/15: Guarded. Attending some groups. Pt reports feeling okay ; Confused at times. incontinent of urine x1 today. denies SI/HI/VH/AH. Neurology consult placed. Waiting on GI consult and BMP results. Patient educated on: diagnosis and medication risk/benefits Reason for continued inpatient stay Substantial Risk for: med/psych decompensation Time Spent With Patient Time: Total time managing care of this patient today _20___ minutes.
[2024-02-16 14:35] LABS: Anion Gap 12 (12-20); Blood Urea Nitrogen 14 mg/dL (9-16); Calcium 9.2 mg/dL (8.4-10.2); Carbon Dioxide 26 mmol/L (22-29); Chloride 109 mmol/L (96-108); Creatinine Clr Calc Pharmacy 95.9; Estimated Glomerular Filt Rate > 60; Glucose Random 89 mg/dL (60-115); Potassium 4.5 mmol/L (3.3-5.1); Sodium 142 mmol/L (135-145)
[2024-02-16 14:48] VITALS: BP 121/75; PULSE 52; RESP 16; TEMP 36.6; O2SAT 97
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
[2024-02-16 20:12] VITALS: BP 110/73; PULSE 75; RESP 15; TEMP 36.4; O2SAT 95
[2024-02-17 07:45] VITALS: BP 137/65; PULSE 54; RESP 16; TEMP 37.2; O2SAT 98
[2024-02-17 08:00] VITALS: PULSE 54
[2024-02-17] MEDS: buPROPion HCl XL 150 MG TAB.ER.24H PO (08:32)
[2024-02-17] MEDS: PARoxetine HCL 10 MG TABLET PO (08:32)
[2024-02-17] MEDS: cloNIDine HCL 0.1 MG TABLET PO (08:32)
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
[2024-02-17] MEDS: methADONE HCl 20 MG/2 ML ORAL.CONC 60 MG PO (08:55)
--- NOTE | 2024-02-17 13:52 | P.PNPSI_ITS ---
Subjective Subjective Date of Service: 02/17/24 Reason For Visit: crisis Interim History: pt noted to be sleeping on attempted interview x 2. due to his apparent fragile medical state and delirium, it was felt to be more therapeutic to allow him to sleep than to awaken him. per staff, calm. resistant to care. allowed labs yesterday. no SI/HI. irritable, dismissive, guarded eves. to bed by 9 pm. Mental Status Exam Mental Status Exam Narrative: supine in bed sleeping under blanket, hand folded on chest, gently respiring. Diagnostics Vital Signs (24Hr): Vital Signs - 24 hr 02/16/24 14:48 02/16/24 20:12 02/17/24 07:45 Temperature 98 F 97.6 F 99.0 F Pulse Rate 52 75 54 Respiratory Rate 16 15 16 Blood Pressure 121/75 110/73 137/65 Pulse Oximetry 97 95 98 Oxygen Delivery Method Room Air Room Air Room Air BMI result Body Mass Index 24.2 Labs 02/14/24 15:53 02/16/24 14:13 Labs: Laboratory Results - last 48 hr 02/15/24 02/16/24 14:44 14:13 Sodium 142 Potassium 4.5 Chloride 109 H Carbon Dioxide 26 Anion Gap 12 BUN 14 Creatinine 0.97 Estim Creat Clear Calc 95.9 Estimated GFR > 60 Random Glucose 89 Calcium 9.2 D Urine Color Yellow Urine Appearance Clear Urine pH 5.5 Ur Specific [place] 1.020 Urine Protein Negative Urine Glucose (UA) Negative Urine Ketones Negative Urine Blood Negative Urine Nitrite Negative Ur Leukocyte Esterase Negative Imaging Radiology Impressions: ITS Impressions Chest X-Ray 02/04/24 08:52 IMPRESSION: No acute pulmonary disease. Few streaky linear right lung base opacities are favored to represent atelectasis. Electronically signed by: Kory Jernigan MD 02/04/2024 11:26 AM EDT RP Head CT 02/14/24 13:49 IMPRESSION: No acute intracranial pathology. Electronically signed by: Pascale Robb MD 02/14/2024 08:02 PM EDT RP Medications Medications Current Medications Acetaminophen (Acetaminophen 325 Mg Tablet) 650 mg PO Q6H PRN PRN Reason: Headache/Pain Mild Scale (1-3) Al Hydroxide/Mg Hydroxide (Magnesium Hydrox/Alum Hydrox 30 Ml Oral.Susp) 30 ml PO Q6H PRN PRN Reason: Heartburn/Nausea Bupropion HCl (Bupropion Hcl Xl 150 Mg Tab.Er.24h) 150 mg PO DAILY [facility] Last Admin: 02/17/24 08:32 Dose: 150 mg Clonidine HCl (Clonidine Hcl 0.1 Mg Tablet) 0.1 mg PO BID [facility]; Protocol Last Admin: 02/17/24 08:32 Dose: 0.1 mg Hydroxyzine HCl (Hydroxyzine Hcl 25 Mg Tablet) 25 mg PO Q6H PRN PRN Reason: Anxiety Last Admin: 02/12/24 21:06 Dose: 25 mg Loperamide HCl (Loperamide Hcl 2 Mg Capsule) 4 mg PO Q6H PRN PRN Reason: Loose Stool Last Admin: 02/15/24 08:35 Dose: 4 mg Magnesium Hydroxide (Milk Of Magnesia 30 Ml Oral.Susp) 30 ml PO DAILY PRN PRN Reason: Constipation Methadone HCl (Methadone Hcl 20 Mg/2 Ml Oral.Conc) 60 mg PO DAILY@0800 [facility] Last Admin: 02/17/24 08:55 Dose: 60 mg Nicotine Polacrilex (Nicotine Polacrilex 2 Mg Gum) 4 mg BUCCAL Q2H PRN PRN Reason: Nicotine Cravings Olanzapine (Olanzapine 5 Mg Tablet) 5 mg PO Q4H PRN PRN Reason: agitation Last Admin: 02/13/24 11:01 Dose: 5 mg Ondansetron HCl (Ondansetron Odt 8 Mg Tab.Rapdis) 8 mg TRANSLINGU Q12H PRN PRN Reason: Nausea and Vomiting Paroxetine HCl (Paroxetine Hcl 10 Mg Tablet) 10 mg PO DAILY [facility] Last Admin: 02/17/24 08:32 Dose: 10 mg Quetiapine Fumarate (Quetiapine Fumarate 200 Mg Tablet) 200 mg PO BEDTIME [facility] Last Admin: 02/16/24 21:17 Dose: Not Given Sodium Chloride (0.9 % Sodium Chloride Flush 10 Ml Syringe) 5 ml IVFLUSH QSHIFT [facility] Last Admin: 02/17/24 08:34 Dose: Not Given Trazodone HCl (Trazodone Hcl 50 Mg Tablet) 50 mg PO BEDTIME MRX1 PRN PRN Reason: Insomnia Last Admin: 02/12/24 21:05 Dose: 50 mg Allergies Allergies Allergy/AdvReac Type Severity Reaction Status Date / Time haloperidol [From Haldol] AdvReac see note Verified 02/04/24 08:51 Assessment & Plan Assessment & Plan (1) Encephalopathy: Qualifiers: Encephalopathy type: toxic metabolic Qualified Code(s): G92.8 - Other toxic encephalopathy Status: Acute Code(s): G93.40 - Encephalopathy, unspecified Assessment and Plan: 49 years old man who had taken multiple drugs apparently for a suicidal attempt. At this time his examination including mental status examination, other than depressed affect, did not reveal any significant abnormality. Sometimes, clinical improvement legs behind metabolic clearance of chemicals or drugs in the body. (2) Homeless single person: Status: Acute Code(s): Z59.00 - Homelessness unspecified (3) Opioid use disorder: Status: Acute Code(s): F11.90 - Opioid use, unspecified, uncomplicated (4) Cocaine use disorder: Status: Acute Code(s): F14.10 - Cocaine abuse, uncomplicated (5) MDD (major depressive disorder), recurrent, severe, with psychosis: Status: Acute Code(s): F33.3 - Major depressive disorder, recurrent, severe with psychotic symptoms Plan Patient is a 49-year-old male with history of MDD, PTSD, opiate use disorder and cocaine use disorder who was brought in by ambulance from a hotel after a suicide attempt by overdose on multiple substances. Plan: CV 15 minute safety checks Review past medications Continue home medications Addiction medicine consult Build rapport Encourage groups Discharge planning 02/08: Laying in bed most of shift. Irritable. Guarded. Pt reports feeling anxious and depressed ; pt stated, I'm hearing voices telling me to kill myself. They told me to sniff all the bags of drugs. I felt like I had a devil and tony on my shoulders . Pt continues to report auditory hallucinations. He reports suicidal ideation with no plan. denies HI/VH. Pt reports he would like to go to respite after discharge. pt c/o of withdrawal symptoms; seen by addiction medicine. 02/09:Irritable. Guarded. Pt reports feeling depressed ; pt continues to report auditory hallucinations. He reports suicidal ideation with no plan. Pt stated, I always feel suicidal . denies HI/VH. Pt reports he would prefer to be [place] [facility] [place]. Continue current tx plan. 02/10: Irritable. Guarded. Refusing to meet with T/W at first, despite multiple attempts. Pt stated, Oh my God. I don't want to talk. Just stay quiet . Observed going into room mates belongings; pt was redirected. Later in the morning, pt agreed to speak to T/W while pacing unit hallway. Pt reports feeling okay ; he reports auditory hallucinations off and on throughout the day. Denies HI/VH. Passive SI with no plan. Pt reports he wants to be discharged [place] a [place] [facility] [place] in [place]; social work aware. Labs ordered. 02/11 keep same treatment. 02/12 the patient looks more confused than usual, I am ordering new blood work for tomorrow morning. Ammonia level, comprehensive metabolic panel and CBC with differential 02/13: refused bloodwork. looking delirious this morning, a bit unsteady on the feet and fecal incontinence. hospitalist consult done, pt amenable to labs now. will check head CT, UA, UDS, and various serum labs. decrease paxil and seroquel by half to minimize anti-histaminergic and cholinergic medications. 02/14: Active on unit. Guarded. Pt reports feeling fine ; presents more organized today. Pt stated, I don't know why I was confused. I feel okay right now . Pt was seen by hospitalist; please see note. BMP to be drawn tomorrow. Pt reported difficulty urinating; bladder scan showed 198mL; waiting for UA results. Pt continues to report loose stools despite being given Imodium; GI consult placed d/t loose stool for 4 days/hx of colostomy. 02/15: Guarded. Attending some groups. Pt reports feeling okay ; Confused at times. incontinent of urine x1 today. denies SI/HI/VH/AH. Neurology consult placed. Waiting on GI consult and BMP results. Patient educated on: diagnosis and medication risk/benefits. 02/16: sleeping, not disturbed. neuro consult without recommendations. per GI consult: Check CBC, CMP, CRP, fecal calpro, GI panel, CDIff; Ideally would also get cross sectional imaging with contrast, but due to recent BERNARD will await renal function first. otherwise continue current mgmt. Reason for continued inpatient stay Substantial Risk for: inability to function and med/psych decompensation Time Spent With Patient Time: Total time managing care of this patient today __25__ minutes.
[2024-02-17 14:00] VITALS: BP 125/86; PULSE 70; RESP 16; TEMP 37.1; O2SAT 100
--- NOTE | 2024-02-17 14:26 | PM.EVENT ---
Event Note Date of Service: 02/17/24 Event Note: Labs including stool studies not collected yet. Time Spent With Patient Time: Total time managing care of this patient today ____ minutes.
[2024-02-17] MEDS: 0.9 % Sodium Chloride Flush 10 ML SYRINGE 5 ML IVFLUSH (15:21)
[2024-02-17] MEDS: hydrOXYzine HCL 25 MG TABLET PO (15:41)
[2024-02-17] MEDS: OLANZapine 5 MG TABLET PO (15:41)
[2024-02-17] MEDS: Loperamide HCl 2 MG CAPSULE 4 MG PO (15:58)
[2024-02-17] MEDS: Ondansetron ODT 8 MG TAB.RAPDIS TRANSLINGU (16:00)
[2024-02-17] MEDS: Acetaminophen 325 MG TABLET 650 MG PO (16:30)
[2024-02-18] MEDS: methADONE HCl 20 MG/2 ML ORAL.CONC 60 MG PO (07:46)
[2024-02-18 09:10] VITALS: BP 106/56; PULSE 59; RESP 16; TEMP 36.6; O2SAT 97
[2024-02-18] MEDS: buPROPion HCl XL 150 MG TAB.ER.24H PO (09:15)
[2024-02-18] MEDS: cloNIDine HCL 0.1 MG TABLET PO (09:15)
[2024-02-18] MEDS: PARoxetine HCL 10 MG TABLET PO (09:15)
--- NOTE | 2024-02-18 09:19 | HO.PSYCHPN ---
Subjective Subjective Date of Service: 02/18/24 Reason For Visit: crisis Subjective Notes: Conditional Voluntary Interim History: Reviewed with Dr. Vasquez. Active on unit, social with select peers. More talkative today with T/W. Patient reports he spoke to his girlfriend who wants him to stay sober and get help. Pt stated, I want to stay clean. I plan to not use anymore . Pt more organized today. Reports some voices which decrease with Zyprexa. Pt was seen by hospitalist and given IV fluids; please see note. Medication Compliance: Yes Side effects from medications: No Mental Status Exam Mental Status Exam Patient Appearance: Appropriate Patient Orientation: Person, Place, Time and Situation Level of Consciousness: Awake and Alert Patient Behavior: Guarded Mood Description: Constricted Affect Description: Constricted Ability to Follow Directions: Good Speech Pattern: Clear Hallucinations: Auditory Thought Process: Goal Oriented Thought Content: positive for Goal Oriented Diagnostics Vital Signs (24Hr): Vital Signs - 24 hr 02/17/24 14:00 02/18/24 09:10 Temperature 98.8 F 97.8 F Pulse Rate 70 59 Respiratory Rate 16 16 Blood Pressure 125/86 106/56 L Pulse Oximetry 100 97 Oxygen Delivery Method Room Air Room Air BMI result Body Mass Index 24.2 Labs 02/18/24 12:01 02/18/24 12:01 Labs: Laboratory Results - last 48 hr 02/16/24 14:13 Sodium 142 Potassium 4.5 Chloride 109 H Carbon Dioxide 26 Anion Gap 12 BUN 14 Creatinine 0.97 Estim Creat Clear Calc 95.9 Estimated GFR > 60 Random Glucose 89 Calcium 9.2 D Imaging Radiology Impressions: ITS Impressions Chest X-Ray 02/04/24 08:52 IMPRESSION: No acute pulmonary disease. Few streaky linear right lung base opacities are favored to represent atelectasis. Electronically signed by: Kory Jernigan MD 02/04/2024 11:26 AM EDT RP Head CT 02/14/24 13:49 IMPRESSION: No acute intracranial pathology. Electronically signed by: Pascale Robb MD 02/14/2024 08:02 PM EDT RP Medications Medications Current Medications Acetaminophen (Acetaminophen 325 Mg Tablet) 650 mg PO Q6H PRN PRN Reason: Headache/Pain Mild Scale (1-3) Last Admin: 02/17/24 16:30 Dose: 650 mg Al Hydroxide/Mg Hydroxide (Magnesium Hydrox/Alum Hydrox 30 Ml Oral.Susp) 30 ml PO Q6H PRN PRN Reason: Heartburn/Nausea Bupropion HCl (Bupropion Hcl Xl 150 Mg Tab.Er.24h) 150 mg PO DAILY [facility] Last Admin: 02/18/24 09:15 Dose: 150 mg Clonidine HCl (Clonidine Hcl 0.1 Mg Tablet) 0.1 mg PO BID [facility]; Protocol Last Admin: 02/18/24 09:15 Dose: 0.1 mg Hydroxyzine HCl (Hydroxyzine Hcl 25 Mg Tablet) 25 mg PO Q6H PRN PRN Reason: Anxiety Last Admin: 02/17/24 15:41 Dose: 25 mg Loperamide HCl (Loperamide Hcl 2 Mg Capsule) 4 mg PO Q6H PRN PRN Reason: Loose Stool Last Admin: 02/17/24 15:58 Dose: 4 mg Magnesium Hydroxide (Milk Of Magnesia 30 Ml Oral.Susp) 30 ml PO DAILY PRN PRN Reason: Constipation Methadone HCl (Methadone Hcl 20 Mg/2 Ml Oral.Conc) 60 mg PO DAILY@0800 [facility] Last Admin: 02/18/24 07:46 Dose: 60 mg Nicotine Polacrilex (Nicotine Polacrilex 2 Mg Gum) 4 mg BUCCAL Q2H PRN PRN Reason: Nicotine Cravings Olanzapine (Olanzapine 5 Mg Tablet) 5 mg PO Q4H PRN PRN Reason: agitation Last Admin: 02/17/24 15:41 Dose: 5 mg Ondansetron HCl (Ondansetron Odt 8 Mg Tab.Rapdis) 8 mg TRANSLINGU Q12H PRN PRN Reason: Nausea and Vomiting Last Admin: 02/17/24 16:00 Dose: 8 mg Paroxetine HCl (Paroxetine Hcl 10 Mg Tablet) 10 mg PO DAILY [facility] Last Admin: 02/18/24 09:15 Dose: 10 mg Quetiapine Fumarate (Quetiapine Fumarate 200 Mg Tablet) 200 mg PO BEDTIME [facility] Last Admin: 02/17/24 23:52 Dose: Not Given Sodium Chloride (0.9 % Sodium Chloride Flush 10 Ml Syringe) 5 ml IVFLUSH QSHIFT [facility] Last Admin: 02/18/24 01:50 Dose: Not Given Trazodone HCl (Trazodone Hcl 50 Mg Tablet) 50 mg PO BEDTIME MRX1 PRN PRN Reason: Insomnia Last Admin: 02/12/24 21:05 Dose: 50 mg Allergies Allergies Allergy/AdvReac Type Severity Reaction Status Date / Time haloperidol [From Haldol] AdvReac see note Verified 02/04/24 08:51 Assessment & Plan Assessment & Plan (1) MDD (major depressive disorder), recurrent, severe, with psychosis: Status: Acute Code(s): F33.3 - Major depressive disorder, recurrent, severe with psychotic symptoms (2) Opioid use disorder: Status: Acute Code(s): F11.90 - Opioid use, unspecified, uncomplicated (3) Cocaine use disorder: Status: Acute Code(s): F14.10 - Cocaine abuse, uncomplicated (4) Encephalopathy: Qualifiers: Encephalopathy type: toxic metabolic Qualified Code(s): G92.8 - Other toxic encephalopathy Status: Acute Code(s): G93.40 - Encephalopathy, unspecified Assessment and Plan: 49 years old man who had taken multiple drugs apparently for a suicidal attempt. At this time his examination including mental status examination, other than depressed affect, did not reveal any significant abnormality. Sometimes, clinical improvement legs behind metabolic clearance of chemicals or drugs in the body. (5) Homeless single person: Status: Acute Code(s): Z59.00 - Homelessness unspecified Plan Patient is a 49-year-old male with history of MDD, PTSD, opiate use disorder and cocaine use disorder who was brought in by ambulance from a hotel after a suicide attempt by overdose on multiple substances. Plan: CV 15 minute safety checks Review past medications Continue home medications Addiction medicine consult Build rapport Encourage groups Discharge planning 02/08: Laying in bed most of shift. Irritable. Guarded. Pt reports feeling anxious and depressed ; pt stated, I'm hearing voices telling me to kill myself. They told me to sniff all the bags of drugs. I felt like I had a devil and tony on my shoulders . Pt continues to report auditory hallucinations. He reports suicidal ideation with no plan. denies HI/VH. Pt reports he would like to go to respite after discharge. pt c/o of withdrawal symptoms; seen by addiction medicine. 02/09:Irritable. Guarded. Pt reports feeling depressed ; pt continues to report auditory hallucinations. He reports suicidal ideation with no plan. Pt stated, I always feel suicidal . denies HI/VH. Pt reports he would prefer to be referred to a respite or half-way in [place] or [place]. Continue current tx plan. 02/10: Irritable. Guarded. Refusing to meet with T/W at first, despite multiple attempts. Pt stated, Oh my God. I don't want to talk. Just stay quiet . Observed going into room mates belongings; pt was redirected. Later in the morning, pt agreed to speak to T/W while pacing unit hallway. Pt reports feeling okay ; he reports auditory hallucinations off and on throughout the day. Denies HI/VH. Passive SI with no plan. Pt reports he wants to be discharged to a half-way in [place]; social work aware. Labs ordered. 02/11 keep same treatment. 02/12 the patient looks more confused than usual, I am ordering new blood work for tomorrow morning. Ammonia level, comprehensive metabolic panel and CBC with differential 02/13: refused bloodwork. looking delirious this morning, a bit unsteady on the feet and fecal incontinence. hospitalist consult done, pt amenable to labs now. will check head CT, UA, UDS, and various serum labs. decrease paxil and seroquel by half to minimize anti-histaminergic and cholinergic medications. 02/14: Active on unit. Guarded. Pt reports feeling fine ; presents more organized today. Pt stated, I don't know why I was confused. I feel okay right now . Pt was seen by hospitalist; please see note. BMP to be drawn tomorrow. Pt reported difficulty urinating; bladder scan showed 198mL; waiting for UA results. Pt continues to report loose stools despite being given Imodium; GI consult placed d/t loose stool for 4 days/hx of colostomy. 02/15: Guarded. Attending some groups. Pt reports feeling okay ; Confused at times. incontinent of urine x1 today. denies SI/HI/VH/AH. Neurology consult placed. Waiting on GI consult and BMP results. Patient educated on: diagnosis and medication risk/benefits. 02/16: sleeping, not disturbed. neuro consult without recommendations. per GI consult: Check CBC, CMP, CRP, fecal calpro, GI panel, CDIff; Ideally would also get cross sectional imaging with contrast, but due to recent BERNARD will await renal function first. otherwise continue current mgmt. 02/17: Active on unit, social with select peers. More talkative today with T/W. Patient reports he spoke to his girlfriend who wants him to stay sober and get help. Pt stated, I want to stay clean. I plan to not use anymore . Pt more organized today. Reports some voices which decrease with Zyprexa. Pt was seen by hospitalist and given IV fluids; please see note. Patient educated on: diagnosis, medication risk/benefits, substance abuse and therapeutic strategies Reason for continued inpatient stay Substantial Risk for: med/psych decompensation Time Spent With Patient Time: Total time managing care of this patient today _20___ minutes.
[2024-02-18] MEDS: 0.9 % Sodium Chloride Flush 10 ML SYRINGE 5 ML IVFLUSH ×2 (09:43→16:07)
[2024-02-18] MEDS: OLANZapine 5 MG TABLET PO (11:37)
[2024-02-18 12:18] LABS: Hematocrit 39.7 % (42.0-52.0); Hemoglobin 12.8 g/dl (14.0-18.0); Mean Corpuscular HGB Conc 32.2 g/dl (31.0-36.0); Mean Corpuscular Hemoglobin 27.8 pg (27.0-33.0); Mean Corpuscular Volume 86.3 fL (80.0-98.0); Mean Platelet Volume 10.3 fL (9.4-12.4); Platelet Count 317 X10*3/uL (160-400); Red Cell Distribution Width 15.2 % (11.0-16.0); White Blood Count 5.2 X10*3/uL (4.8-10.8)
[2024-02-18 12:36] LABS: Anion Gap 14 (12-20); Blood Urea Nitrogen 12 mg/dL (9-16); Carbon Dioxide 25 mmol/L (22-29); Chloride 107 mmol/L (96-108); Creatinine Clr Calc Pharmacy 63.3; Estimated Glomerular Filt Rate 51; Glucose Random 121 mg/dL (60-115); Sodium 142 mmol/L (135-145)
[2024-02-18 13:02] LABS: Alanine Aminotransferase 24 U/L (0-40); Albumin Level 4.6 g/dL (3.5-5.0); Alkaline Phosphatase 129 U/L (39-117); Aspartate Amino Transferase 29 U/L (5-37); Bilirubin Total 0.3 mg/dL (0.0-1.0); C Reactive Protein 1.61 mg/dL (< or = 0.50); Total Protein 8.5 g/dL (6.5-8.0)
--- NOTE | 2024-02-18 13:58 | PM.EVENT ---
Event Note Date of Service: 02/18/24 Event Note: pt with elevated creatinine, had improvement with 2L NS on 02/13, cr rising again. he is taking PO fluids on the floor but not pushing as recommended as he does not like water . will given 1 more liter of fluids and can remove IV. continue to encourage PO fluids. consider nephrology consult if creatinine continues to rise. Time Spent With Patient Time: Total time managing care of this patient today 10 minutes.
[2024-02-18] MEDS: Lactated Ringers 1,000 ML 999 ML IV (14:59)
--- NOTE | 2024-02-18 16:54 | PC.NURSE ---
Dr Marcos notified of completion of IV Lactated Ringers 1 bag 999ml and questioned if IV site still needed. IV adapter removed from right forearm per Dr Marcos; tolerated well.
[2024-02-18 19:59] VITALS: RESP 18
[2024-02-19] MEDS: methADONE HCl 20 MG/2 ML ORAL.CONC 60 MG PO (08:01)
[2024-02-19 08:55] VITALS: BP 130/76; PULSE 72; RESP 16; TEMP 36.9; O2SAT 95
[2024-02-19] MEDS: buPROPion HCl XL 150 MG TAB.ER.24H PO (08:59)
[2024-02-19] MEDS: cloNIDine HCL 0.1 MG TABLET PO (08:59)
[2024-02-19] MEDS: PARoxetine HCL 10 MG TABLET PO (08:59)
[2024-02-19] MEDS: Loperamide HCl 2 MG CAPSULE 4 MG PO (10:48)
[2024-02-19 12:08] LABS: Adenovirus F 40/41 Not Detected (Not Detect.); Astrovirus Not Detected (Not Detect.); Campylobacter Not Detected (Not Detect.); Cryptosporidium Not Detected (Not Detect.); Cyclospora cayetanensis Not Detected (Not Detect.); E. coli EAEC Not Detected (Not Detect.); E. coli EPEC Not Detected (Not Detect.); E. coli ETEC Not Detected (Not Detect.); E. coli STEC Not Detected (Not Detect.); Entamoeba histolytica Not Detected (Not Detect.); Giardia lamblia Not Detected (Not Detect.); Norovirus GI/GII Not Detected (Not Detect.); Plesiomonas shigelloides Not Detected (Not Detect.); Rotavirus A Not Detected (Not Detect.); Salmonella Not Detected (Not Detect.); Sapovirus Not Detected (Not Detect.); Shigella sp./EIEC Not Detected (Not Detect.); Vibrio Not Detected (Not Detect.); Vibrio Cholerae Not Detected (Not Detect.); Yersinia enterocolitica Not Detected (Not Detect.)
[2024-02-19] MEDS: OLANZapine 5 MG TABLET PO (13:15)
--- NOTE | 2024-02-19 16:21 | HO.PSYCHPN ---
Subjective Subjective Date of Service: 02/19/24 Reason For Visit: crisis Subjective Notes: Conditional Voluntary Interim History: Pt slept. Today, pt reports he is fine declines to engage any further, denies SI/HI. pt has bladder scan scheduled which he declines. Medication Compliance: Yes Review of Systems Review of Systems No headache and when I saw him he did not complain of any symptom. Yes all other systems are reviewed and are negative Constitutional: Reports as per HPI, Denies chills, Denies fatigue, Denies fever(s) and Denies headache(s) Eyes: Reports as per HPI and Denies change in vision Reports as per HPI, Denies headache(s), Denies nasal congestion, Denies nasal discharge and Denies neck pain Cardiovascular: Reports as per HPI, Denies pedal edema and Denies dyspnea Respiratory: Reports as per HPI, Denies cough and Denies dyspnea Gastrointestinal: Reports as per HPI, Denies constipation, Denies diarrhea, Denies nausea and Denies vomiting Genitourinary: Reports as per HPI, Denies dysuria, Denies urinary frequency and Denies urinary urgency Musculoskeletal: Reports as per HPI, Denies arthralgias and Denies neck pain Skin/Breast: Reports as per HPI and Denies rash Reports as per HPI, Denies confusion and Denies headache(s) Psychiatric: Reports as per HPI and Denies confusion Endocrine: Reports as per HPI and Denies fatigue Hematologic/Lymphatic: Reports as per HPI Allergic/Immunologic: Reports as per HPI Mental Status Exam Mental Status Exam Patient Appearance: Appropriate Patient Orientation: Person, Place, Time and Situation Level of Consciousness: Awake and Alert Patient Behavior: Guarded Mood Description: Constricted Affect Description: Constricted Patient Cognition Impaired: Yes Ability to Follow Directions: Good Speech Pattern: Clear Diagnostics Vital Signs (24Hr): Vital Signs - 24 hr 02/18/24 19:59 02/19/24 08:55 Temperature 98.5 F Pulse Rate 72 Respiratory Rate 18 16 Blood Pressure 130/76 Pulse Oximetry 95 Oxygen Delivery Method Room Air BMI result Body Mass Index 24.2 Labs 02/18/24 12:01 02/18/24 12:01 Labs: Laboratory Results - last 48 hr 02/18/24 02/18/24 12:01 17:45 WBC 5.2 RBC 4.60 Hgb 12.8 L Hct 39.7 L MCV 86.3 MCH 27.8 MCHC 32.2 RDW 15.2 Plt Count 317 MPV 10.3 Absolute Nucleated RBC 0.000 Nucleated RBC % (auto) 0.0 Sodium 142 Potassium 4.0 Chloride 107 Carbon Dioxide 25 Anion Gap 14 BUN 12 Creatinine 1.47 H Estim Creat Clear Calc 63.3 Estimated GFR 51 Random Glucose 121 H Calcium 10.0 D Total Bilirubin 0.3 AST 29 ALT 24 Alkaline Phosphatase 129 H C-Reactive Protein 1.61 H Total Protein 8.5 H Albumin 4.6 Stl C. cayetanensis PCR Not Detected Stool Rotavirus A PCR Not Detected Stl Adenov F 40/41 PCR Not Detected Stool Astrovirus (PCR) Not Detected Stool Campylobacter PCR Not Detected Stool Cryptosporidium PCR Not Detected Stl Sh Tox Pr E STEC PCR Not Detected Stool E coli O157 PCR Not applicable Stl Enterotoxigenic E PCR Not Detected Stool EPEC (PCR) Not Detected Stool EAEC (PCR) Not Detected Stl E. histolytica PCR Not Detected Stool Giardia Lamblia PCR Not Detected Stl P. shigelloides PCR Not Detected Stool Salmonella PCR Not Detected Stool Sapovirus (PCR) Not Detected Stl Shigella/EIEC PCR Not Detected St Y.enterocolitica PCR Not Detected Stool Vibrio (PCR) Not Detected Stl Vibrio cholerae PCR Not Detected Stl Norovirus GI/GII PCR Not Detected C. difficile Tox B Gene Cancelled Imaging Radiology Impressions: ITS Impressions Chest X-Ray 02/04/24 08:52 IMPRESSION: No acute pulmonary disease. Few streaky linear right lung base opacities are favored to represent atelectasis. Electronically signed by: Kory Jernigan MD 02/04/2024 11:26 AM EDT RP Head CT 02/14/24 13:49 IMPRESSION: No acute intracranial pathology. Electronically signed by: Pascale Robb MD 02/14/2024 08:02 PM EDT RP Medications Medications Current Medications Acetaminophen (Acetaminophen 325 Mg Tablet) 650 mg PO Q6H PRN PRN Reason: Headache/Pain Mild Scale (1-3) Last Admin: 02/17/24 16:30 Dose: 650 mg Al Hydroxide/Mg Hydroxide (Magnesium Hydrox/Alum Hydrox 30 Ml Oral.Susp) 30 ml PO Q6H PRN PRN Reason: Heartburn/Nausea Bupropion HCl (Bupropion Hcl Xl 150 Mg Tab.Er.24h) 150 mg PO DAILY [facility] Last Admin: 02/19/24 08:59 Dose: 150 mg Clonidine HCl (Clonidine Hcl 0.1 Mg Tablet) 0.1 mg PO BID [facility]; Protocol Last Admin: 02/19/24 08:59 Dose: 0.1 mg Hydroxyzine HCl (Hydroxyzine Hcl 25 Mg Tablet) 25 mg PO Q6H PRN PRN Reason: Anxiety Last Admin: 02/17/24 15:41 Dose: 25 mg Loperamide HCl (Loperamide Hcl 2 Mg Capsule) 4 mg PO Q6H PRN PRN Reason: Loose Stool Last Admin: 02/19/24 10:48 Dose: 4 mg Magnesium Hydroxide (Milk Of Magnesia 30 Ml Oral.Susp) 30 ml PO DAILY PRN PRN Reason: Constipation Methadone HCl (Methadone Hcl 20 Mg/2 Ml Oral.Conc) 60 mg PO DAILY@0800 [facility] Last Admin: 02/19/24 08:01 Dose: 60 mg Nicotine Polacrilex (Nicotine Polacrilex 2 Mg Gum) 4 mg BUCCAL Q2H PRN PRN Reason: Nicotine Cravings Olanzapine (Olanzapine 5 Mg Tablet) 5 mg PO Q4H PRN PRN Reason: agitation Last Admin: 02/19/24 13:15 Dose: 5 mg Ondansetron HCl (Ondansetron Odt 8 Mg Tab.Rapdis) 8 mg TRANSLINGU Q12H PRN PRN Reason: Nausea and Vomiting Last Admin: 02/17/24 16:00 Dose: 8 mg Paroxetine HCl (Paroxetine Hcl 10 Mg Tablet) 10 mg PO DAILY [facility] Last Admin: 02/19/24 08:59 Dose: 10 mg Quetiapine Fumarate (Quetiapine Fumarate 200 Mg Tablet) 200 mg PO BEDTIME [facility] Last Admin: 02/18/24 20:01 Dose: Not Given Trazodone HCl (Trazodone Hcl 50 Mg Tablet) 50 mg PO BEDTIME MRX1 PRN PRN Reason: Insomnia Last Admin: 02/12/24 21:05 Dose: 50 mg Allergies Allergies Allergy/AdvReac Type Severity Reaction Status Date / Time haloperidol [From Haldol] AdvReac see note Verified 02/04/24 08:51 Assessment & Plan Assessment & Plan (1) MDD (major depressive disorder), recurrent, severe, with psychosis: Status: Acute Code(s): F33.3 - Major depressive disorder, recurrent, severe with psychotic symptoms (2) Opioid use disorder: Status: Acute Code(s): F11.90 - Opioid use, unspecified, uncomplicated (3) Cocaine use disorder: Status: Acute Code(s): F14.10 - Cocaine abuse, uncomplicated (4) Encephalopathy: Qualifiers: Encephalopathy type: toxic metabolic Qualified Code(s): G92.8 - Other toxic encephalopathy Status: Acute Code(s): G93.40 - Encephalopathy, unspecified Assessment and Plan: 49 years old man who had taken multiple drugs apparently for a suicidal attempt. At this time his examination including mental status examination, other than depressed affect, did not reveal any significant abnormality. Sometimes, clinical improvement legs behind metabolic clearance of chemicals or drugs in the body. (5) Homeless single person: Status: Acute Code(s): Z59.00 - Homelessness unspecified Plan Patient is a 49-year-old male with history of MDD, PTSD, opiate use disorder and cocaine use disorder who was brought in by ambulance from a hotel after a suicide attempt by overdose on multiple substances. Plan: CV 15 minute safety checks Review past medications Continue home medications Addiction medicine consult Build rapport Encourage groups Discharge planning 02/08: Laying in bed most of shift. Irritable. Guarded. Pt reports feeling anxious and depressed ; pt stated, I'm hearing voices telling me to kill myself. They told me to sniff all the bags of drugs. I felt like I had a devil and tony on my shoulders . Pt continues to report auditory hallucinations. He reports suicidal ideation with no plan. denies HI/VH. Pt reports he would like to go to respite after discharge. pt c/o of withdrawal symptoms; seen by addiction medicine. 02/09:Irritable. Guarded. Pt reports feeling depressed ; pt continues to report auditory hallucinations. He reports suicidal ideation with no plan. Pt stated, I always feel suicidal . denies HI/VH. Pt reports he would prefer to be referred to a respite or fpc in [place] or [place]. Continue current tx plan. 02/10: Irritable. Guarded. Refusing to meet with T/W at first, despite multiple attempts. Pt stated, Oh my God. I don't want to talk. Just stay quiet . Observed going into room mates belongings; pt was redirected. Later in the morning, pt agreed to speak to T/W while pacing unit hallway. Pt reports feeling okay ; he reports auditory hallucinations off and on throughout the day. Denies HI/VH. Passive SI with no plan. Pt reports he wants to be discharged to a fpc in [place]; social work aware. Labs ordered. 02/11 keep same treatment. 02/12 the patient looks more confused than usual, I am ordering new blood work for tomorrow morning. Ammonia level, comprehensive metabolic panel and CBC with differential 02/13: refused bloodwork. looking delirious this morning, a bit unsteady on the feet and fecal incontinence. hospitalist consult done, pt amenable to labs now. will check head CT, UA, UDS, and various serum labs. decrease paxil and seroquel by half to minimize anti-histaminergic and cholinergic medications. 02/14: Active on unit. Guarded. Pt reports feeling fine ; presents more organized today. Pt stated, I don't know why I was confused. I feel okay right now . Pt was seen by hospitalist; please see note. BMP to be drawn tomorrow. Pt reported difficulty urinating; bladder scan showed 198mL; waiting for UA results. Pt continues to report loose stools despite being given Imodium; GI consult placed d/t loose stool for 4 days/hx of colostomy. 02/15: Guarded. Attending some groups. Pt reports feeling okay ; Confused at times. incontinent of urine x1 today. denies SI/HI/VH/AH. Neurology consult placed. Waiting on GI consult and BMP results. Patient educated on: diagnosis and medication risk/benefits. 02/16: sleeping, not disturbed. neuro consult without recommendations. per GI consult: Check CBC, CMP, CRP, fecal calpro, GI panel, CDIff; Ideally would also get cross sectional imaging with contrast, but due to recent BERNARD will await renal function first. otherwise continue current mgmt. 02/17: Active on unit, social with select peers. More talkative today with T/W. Patient reports he spoke to his girlfriend who wants him to stay sober and get help. Pt stated, I want to stay clean. I plan to not use anymore . Pt more organized today. Reports some voices which decrease with Zyprexa. Pt was seen by hospitalist and given IV fluids; please see note. 02/18 continue tx Reason for continued inpatient stay Substantial Risk for: inability to function Time Spent With Patient Time: Total time managing care of this patient today ____ minutes.
[2024-02-19 20:00] VITALS: RESP 18
[2024-02-20] MEDS: methADONE HCl 20 MG/2 ML ORAL.CONC 60 MG PO (07:37)
[2024-02-20 08:23] VITALS: BP 139/84; PULSE 75; TEMP 37.2; O2SAT 96
[2024-02-20] MEDS: cloNIDine HCL 0.1 MG TABLET PO (08:26)
[2024-02-20] MEDS: buPROPion HCl XL 150 MG TAB.ER.24H PO (08:27)
[2024-02-20] MEDS: PARoxetine HCL 10 MG TABLET PO (08:27)
[2024-02-20] MEDS: Loperamide HCl 2 MG CAPSULE 4 MG PO (08:27)
[2024-02-20] MEDS: OLANZapine 5 MG TABLET PO (09:11)
[2024-02-20] MEDS: Acetaminophen 325 MG TABLET 650 MG PO (09:49)
--- NOTE | 2024-02-20 16:05 | HO.PSYCHPN ---
Subjective Subjective Date of Service: 02/20/24 Reason For Visit: crisis Subjective Notes: Conditional Voluntary Interim History: Pt slept. Today, pt reports he is tired declines to engage any further, denies SI/HI. pt has bladder scan scheduled which he declines. Review of Systems Review of Systems No headache and when I saw him he did not complain of any symptom. Yes all other systems are reviewed and are negative Constitutional: Reports as per HPI, Denies chills, Denies fatigue, Denies fever(s) and Denies headache(s) Eyes: Reports as per HPI and Denies change in vision Reports as per HPI, Denies headache(s), Denies nasal congestion, Denies nasal discharge and Denies neck pain Cardiovascular: Reports as per HPI, Denies pedal edema and Denies dyspnea Respiratory: Reports as per HPI, Denies cough and Denies dyspnea Gastrointestinal: Reports as per HPI, Denies constipation, Denies diarrhea, Denies nausea and Denies vomiting Genitourinary: Reports as per HPI, Denies dysuria, Denies urinary frequency and Denies urinary urgency Musculoskeletal: Reports as per HPI, Denies arthralgias and Denies neck pain Skin/Breast: Reports as per HPI and Denies rash Reports as per HPI, Denies confusion and Denies headache(s) Psychiatric: Reports as per HPI and Denies confusion Endocrine: Reports as per HPI and Denies fatigue Hematologic/Lymphatic: Reports as per HPI Allergic/Immunologic: Reports as per HPI Mental Status Exam Mental Status Exam Patient Appearance: Appropriate Patient Orientation: Person, Place, Time and Situation Level of Consciousness: Awake and Alert Patient Behavior: Guarded Mood Description: Constricted Affect Description: Constricted Patient Cognition Impaired: Yes Ability to Follow Directions: Good Speech Pattern: Clear Diagnostics Vital Signs (24Hr): Vital Signs - 24 hr 02/19/24 20:00 02/20/24 08:23 Temperature 99.0 F Pulse Rate 75 Respiratory Rate 18 Blood Pressure 139/84 Pulse Oximetry 96 Oxygen Delivery Method Room Air BMI result Body Mass Index 24.2 Labs 02/18/24 12:01 02/18/24 12:01 Labs: Laboratory Results - last 48 hr 02/18/24 17:45 Stl C. cayetanensis PCR Not Detected Stool Rotavirus A PCR Not Detected Stl Adenov F 40/41 PCR Not Detected Stool Astrovirus (PCR) Not Detected Stool Campylobacter PCR Not Detected Stool Cryptosporidium PCR Not Detected Stl Sh Tox Pr E STEC PCR Not Detected Stool E coli O157 PCR Not applicable Stl Enterotoxigenic E PCR Not Detected Stool EPEC (PCR) Not Detected Stool EAEC (PCR) Not Detected Stl E. histolytica PCR Not Detected Stool Giardia Lamblia PCR Not Detected Stl P. shigelloides PCR Not Detected Stool Salmonella PCR Not Detected Stool Sapovirus (PCR) Not Detected Stl Shigella/EIEC PCR Not Detected St Y.enterocolitica PCR Not Detected Stool Vibrio (PCR) Not Detected Stl Vibrio cholerae PCR Not Detected Stl Norovirus GI/GII PCR Not Detected C. difficile Tox B Gene Cancelled Imaging Radiology Impressions: ITS Impressions Chest X-Ray 02/04/24 08:52 IMPRESSION: No acute pulmonary disease. Few streaky linear right lung base opacities are favored to represent atelectasis. Electronically signed by: Kory Jernigan MD 02/04/2024 11:26 AM EDT RP Head CT 02/14/24 13:49 IMPRESSION: No acute intracranial pathology. Electronically signed by: Pascale Robb MD 02/14/2024 08:02 PM EDT RP Medications Medications Current Medications Acetaminophen (Acetaminophen 325 Mg Tablet) 650 mg PO Q6H PRN PRN Reason: Headache/Pain Mild Scale (1-3) Last Admin: 02/20/24 09:49 Dose: 650 mg Al Hydroxide/Mg Hydroxide (Magnesium Hydrox/Alum Hydrox 30 Ml Oral.Susp) 30 ml PO Q6H PRN PRN Reason: Heartburn/Nausea Bupropion HCl (Bupropion Hcl Xl 150 Mg Tab.Er.24h) 150 mg PO DAILY [facility] Last Admin: 02/20/24 08:27 Dose: 150 mg Clonidine HCl (Clonidine Hcl 0.1 Mg Tablet) 0.1 mg PO BID [facility]; Protocol Last Admin: 02/20/24 08:26 Dose: 0.1 mg Hydroxyzine HCl (Hydroxyzine Hcl 25 Mg Tablet) 25 mg PO Q6H PRN PRN Reason: Anxiety Last Admin: 02/17/24 15:41 Dose: 25 mg Loperamide HCl (Loperamide Hcl 2 Mg Capsule) 4 mg PO Q6H PRN PRN Reason: Loose Stool Last Admin: 02/20/24 08:27 Dose: 4 mg Magnesium Hydroxide (Milk Of Magnesia 30 Ml Oral.Susp) 30 ml PO DAILY PRN PRN Reason: Constipation Methadone HCl (Methadone Hcl 20 Mg/2 Ml Oral.Conc) 60 mg PO DAILY@0800 REPLACED BY [facility] Last Admin: 02/20/24 07:37 Dose: 60 mg Nicotine Polacrilex (Nicotine Polacrilex 2 Mg Gum) 4 mg BUCCAL Q2H PRN PRN Reason: Nicotine Cravings Olanzapine (Olanzapine 5 Mg Tablet) 5 mg PO Q4H PRN PRN Reason: agitation Last Admin: 02/20/24 09:11 Dose: 5 mg Ondansetron HCl (Ondansetron Odt 8 Mg Tab.Rapdis) 8 mg TRANSLINGU Q12H PRN PRN Reason: Nausea and Vomiting Last Admin: 02/17/24 16:00 Dose: 8 mg Paroxetine HCl (Paroxetine Hcl 10 Mg Tablet) 10 mg PO DAILY REPLACED BY [facility] Last Admin: 02/20/24 08:27 Dose: 10 mg Quetiapine Fumarate (Quetiapine Fumarate 200 Mg Tablet) 200 mg PO BEDTIME REPLACED BY [facility] Last Admin: 02/19/24 21:02 Dose: Not Given Trazodone HCl (Trazodone Hcl 50 Mg Tablet) 50 mg PO BEDTIME MRX1 PRN PRN Reason: Insomnia Last Admin: 02/12/24 21:05 Dose: 50 mg Allergies Allergies Allergy/AdvReac Type Severity Reaction Status Date / Time haloperidol [From Haldol] AdvReac see note Verified 02/04/24 08:51 Assessment & Plan Assessment & Plan (1) MDD (major depressive disorder), recurrent, severe, with psychosis: Status: Acute Code(s): F33.3 - Major depressive disorder, recurrent, severe with psychotic symptoms (2) Opioid use disorder: Status: Acute Code(s): F11.90 - Opioid use, unspecified, uncomplicated (3) Cocaine use disorder: Status: Acute Code(s): F14.10 - Cocaine abuse, uncomplicated (4) Encephalopathy: Qualifiers: Encephalopathy type: toxic metabolic Qualified Code(s): G92.8 - Other toxic encephalopathy Status: Acute Code(s): G93.40 - Encephalopathy, unspecified Assessment and Plan: 49 years old man who had taken multiple drugs apparently for a suicidal attempt. At this time his examination including mental status examination, other than depressed affect, did not reveal any significant abnormality. Sometimes, clinical improvement legs behind metabolic clearance of chemicals or drugs in the body. (5) Homeless single person: Status: Acute Code(s): Z59.00 - Homelessness unspecified Plan Patient is a 49-year-old male with history of MDD, PTSD, opiate use disorder and cocaine use disorder who was brought in by ambulance from a hotel after a suicide attempt by overdose on multiple substances. Plan: CV 15 minute safety checks Review past medications Continue home medications Addiction medicine consult Build rapport Encourage groups Discharge planning 02/08: Laying in bed most of shift. Irritable. Guarded. Pt reports feeling anxious and depressed ; pt stated, I'm hearing voices telling me to kill myself. They told me to sniff all the bags of drugs. I felt like I had a devil and tony on my shoulders . Pt continues to report auditory hallucinations. He reports suicidal ideation with no plan. denies HI/VH. Pt reports he would like to go to respite after discharge. pt c/o of withdrawal symptoms; seen by addiction medicine. 02/09:Irritable. Guarded. Pt reports feeling depressed ; pt continues to report auditory hallucinations. He reports suicidal ideation with no plan. Pt stated, I always feel suicidal . denies HI/VH. Pt reports he would prefer to be referred to a respite or mcc in [place] or [place]. Continue current tx plan. 02/10: Irritable. Guarded. Refusing to meet with T/W at first, despite multiple attempts. Pt stated, Oh my God. I don't want to talk. Just stay quiet . Observed going into room mates belongings; pt was redirected. Later in the morning, pt agreed to speak to T/W while pacing unit hallway. Pt reports feeling okay ; he reports auditory hallucinations off and on throughout the day. Denies HI/VH. Passive SI with no plan. Pt reports he wants to be discharged to a mcc in [place]; social work aware. Labs ordered. 02/11 keep same treatment. 02/12 the patient looks more confused than usual, I am ordering new blood work for tomorrow morning. Ammonia level, comprehensive metabolic panel and CBC with differential 02/13: refused bloodwork. looking delirious this morning, a bit unsteady on the feet and fecal incontinence. hospitalist consult done, pt amenable to labs now. will check head CT, UA, UDS, and various serum labs. decrease paxil and seroquel by half to minimize anti-histaminergic and cholinergic medications. 02/14: Active on unit. Guarded. Pt reports feeling fine ; presents more organized today. Pt stated, I don't know why I was confused. I feel okay right now . Pt was seen by hospitalist; please see note. BMP to be drawn tomorrow. Pt reported difficulty urinating; bladder scan showed 198mL; waiting for UA results. Pt continues to report loose stools despite being given Imodium; GI consult placed d/t loose stool for 4 days/hx of colostomy. 02/15: Guarded. Attending some groups. Pt reports feeling okay ; Confused at times. incontinent of urine x1 today. denies SI/HI/VH/AH. Neurology consult placed. Waiting on GI consult and BMP results. Patient educated on: diagnosis and medication risk/benefits. 02/16: sleeping, not disturbed. neuro consult without recommendations. per GI consult: Check CBC, CMP, CRP, fecal calpro, GI panel, CDIff; Ideally would also get cross sectional imaging with contrast, but due to recent BERNARD will await renal function first. otherwise continue current mgmt. 02/17: Active on unit, social with select peers. More talkative today with T/W. Patient reports he spoke to his girlfriend who wants him to stay sober and get help. Pt stated, I want to stay clean. I plan to not use anymore . Pt more organized today. Reports some voices which decrease with Zyprexa. Pt was seen by hospitalist and given IV fluids; please see note. 02/18 continue tx. 02/19 continue tx. Reason for continued inpatient stay Substantial Risk for: inability to function Time Spent With Patient Time: Total time managing care of this patient today ____ minutes.
--- NOTE | 2024-02-20 22:25 | PC.NURSE ---
Patient refusing all care currently including vitals, medications, pvr's.
[2024-02-21] MEDS: methADONE HCl 20 MG/2 ML ORAL.CONC 60 MG PO (07:50)
[2024-02-21 08:41] VITALS: BP 146/80; PULSE 58; TEMP 36.9; O2SAT 97
[2024-02-21] MEDS: PARoxetine HCL 10 MG TABLET PO (08:42)
[2024-02-21] MEDS: Acetaminophen 325 MG TABLET 650 MG PO (08:42)
[2024-02-21 08:43] VITALS: BP 146/80
[2024-02-21] MEDS: buPROPion HCl XL 150 MG TAB.ER.24H PO (08:43)
[2024-02-21] MEDS: cloNIDine HCL 0.1 MG TABLET PO (08:43)
[2024-02-21] MEDS: Loperamide HCl 2 MG CAPSULE 4 MG PO ×2 (08:43→13:06)
[2024-02-21] MEDS: OLANZapine 5 MG TABLET PO ×2 (10:51→14:12)
--- NOTE | 2024-02-21 12:54 | HO.PSYCHPN ---
Subjective Subjective Date of Service: 02/21/24 Reason For Visit: crisis Subjective Notes: Conditional Voluntary Interim History: Reviewed with Dr. Vasquez. Keeping to self. Pt reports feeling anxious ; he reports auditory hallucinations have decreased. denies SI/HI/VH. Continues to report loose stool; GI consult placed, awaiting follow up. Medication Compliance: Yes Side effects from medications: No Attending Groups: No Review of Systems Constitutional: Reports as per HPI Eyes: Reports as per HPI Reports as per HPI Cardiovascular: Reports as per HPI Respiratory: Reports as per HPI Gastrointestinal: Reports as per HPI Genitourinary: Reports as per HPI Musculoskeletal: Reports as per HPI Skin/Breast: Reports as per HPI Reports as per HPI Psychiatric: Reports as per HPI Endocrine: Reports as per HPI Hematologic/Lymphatic: Reports as per HPI Allergic/Immunologic: Reports as per HPI Mental Status Exam Mental Status Exam Narrative: Pt is alert and oriented; behavior is cooperative and calm; dressed in casual attire; mood is described as depressed and anxious ; eye contact appropriate; Speech is normal rate, volume and not pressured; thought process is organized; Thought content is on tx; denies SI/HI/VH. Pt reports auditory hallucinations that are decreasing. Diagnostics Vital Signs (24Hr): Vital Signs - 24 hr 02/21/24 08:41 02/21/24 08:43 Temperature 98.5 F Pulse Rate 58 Blood Pressure 146/80 H 146/80 H Pulse Oximetry 97 Oxygen Delivery Method Room Air BMI result Body Mass Index 24.2 Labs 02/18/24 12:01 02/18/24 12:01 Imaging Radiology Impressions: ITS Impressions Chest X-Ray 02/04/24 08:52 IMPRESSION: No acute pulmonary disease. Few streaky linear right lung base opacities are favored to represent atelectasis. Electronically signed by: Kory Jernigan MD 02/04/2024 11:26 AM EDT RP Head CT 02/14/24 13:49 IMPRESSION: No acute intracranial pathology. Electronically signed by: Pascale Robb MD 02/14/2024 08:02 PM EDT RP Medications Medications Current Medications Acetaminophen (Acetaminophen 325 Mg Tablet) 650 mg PO Q6H PRN PRN Reason: Headache/Pain Mild Scale (1-3) Last Admin: 02/21/24 08:42 Dose: 650 mg Al Hydroxide/Mg Hydroxide (Magnesium Hydrox/Alum Hydrox 30 Ml Oral.Susp) 30 ml PO Q6H PRN PRN Reason: Heartburn/Nausea Bupropion HCl (Bupropion Hcl Xl 150 Mg Tab.Er.24h) 150 mg PO DAILY [facility] Last Admin: 02/21/24 08:43 Dose: 150 mg Clonidine HCl (Clonidine Hcl 0.1 Mg Tablet) 0.1 mg PO BID [facility]; Protocol Last Admin: 02/21/24 08:43 Dose: 0.1 mg Hydroxyzine HCl (Hydroxyzine Hcl 25 Mg Tablet) 25 mg PO Q6H PRN PRN Reason: Anxiety Last Admin: 02/17/24 15:41 Dose: 25 mg Loperamide HCl (Loperamide Hcl 2 Mg Capsule) 4 mg PO Q6H PRN PRN Reason: Loose Stool Last Admin: 02/21/24 08:43 Dose: 4 mg Magnesium Hydroxide (Milk Of Magnesia 30 Ml Oral.Susp) 30 ml PO DAILY PRN PRN Reason: Constipation Methadone HCl (Methadone Hcl 20 Mg/2 Ml Oral.Conc) 60 mg PO DAILY@0800 [facility] Last Admin: 02/21/24 07:50 Dose: 60 mg Nicotine Polacrilex (Nicotine Polacrilex 2 Mg Gum) 4 mg BUCCAL Q2H PRN PRN Reason: Nicotine Cravings Olanzapine (Olanzapine 5 Mg Tablet) 5 mg PO Q4H PRN PRN Reason: agitation Last Admin: 02/21/24 10:51 Dose: 5 mg Ondansetron HCl (Ondansetron Odt 8 Mg Tab.Rapdis) 8 mg TRANSLINGU Q12H PRN PRN Reason: Nausea and Vomiting Last Admin: 02/17/24 16:00 Dose: 8 mg Paroxetine HCl (Paroxetine Hcl 10 Mg Tablet) 10 mg PO DAILY [facility] Last Admin: 02/21/24 08:42 Dose: 10 mg Quetiapine Fumarate (Quetiapine Fumarate 200 Mg Tablet) 200 mg PO BEDTIME [facility] Last Admin: 02/20/24 22:10 Dose: Not Given Trazodone HCl (Trazodone Hcl 50 Mg Tablet) 50 mg PO BEDTIME MRX1 PRN PRN Reason: Insomnia Last Admin: 02/12/24 21:05 Dose: 50 mg Allergies Allergies Allergy/AdvReac Type Severity Reaction Status Date / Time haloperidol [From Haldol] AdvReac see note Verified 02/04/24 08:51 Assessment & Plan Assessment & Plan (1) MDD (major depressive disorder), recurrent, severe, with psychosis: Status: Acute Code(s): F33.3 - Major depressive disorder, recurrent, severe with psychotic symptoms (2) Opioid use disorder: Status: Acute Code(s): F11.90 - Opioid use, unspecified, uncomplicated (3) Cocaine use disorder: Status: Acute Code(s): F14.10 - Cocaine abuse, uncomplicated (4) Encephalopathy: Qualifiers: Encephalopathy type: toxic metabolic Qualified Code(s): G92.8 - Other toxic encephalopathy Status: Acute Code(s): G93.40 - Encephalopathy, unspecified Assessment and Plan: 49 years old man who had taken multiple drugs apparently for a suicidal attempt. At this time his examination including mental status examination, other than depressed affect, did not reveal any significant abnormality. Sometimes, clinical improvement legs behind metabolic clearance of chemicals or drugs in the body. (5) Homeless single person: Status: Acute Code(s): Z59.00 - Homelessness unspecified Plan Patient is a 49-year-old male with history of MDD, PTSD, opiate use disorder and cocaine use disorder who was brought in by ambulance from a hotel after a suicide attempt by overdose on multiple substances. Plan: CV 15 minute safety checks Review past medications Continue home medications Addiction medicine consult Build rapport Encourage groups Discharge planning 02/08: Laying in bed most of shift. Irritable. Guarded. Pt reports feeling anxious and depressed ; pt stated, I'm hearing voices telling me to kill myself. They told me to sniff all the bags of drugs. I felt like I had a devil and tony on my shoulders . Pt continues to report auditory hallucinations. He reports suicidal ideation with no plan. denies HI/VH. Pt reports he would like to go to respite after discharge. pt c/o of withdrawal symptoms; seen by addiction medicine. 02/09:Irritable. Guarded. Pt reports feeling depressed ; pt continues to report auditory hallucinations. He reports suicidal ideation with no plan. Pt stated, I always feel suicidal . denies HI/VH. Pt reports he would prefer to be referred to a respite or longterm in [place] or [place]. Continue current tx plan. 02/10: Irritable. Guarded. Refusing to meet with T/W at first, despite multiple attempts. Pt stated, Oh my God. I don't want to talk. Just stay quiet . Observed going into room mates belongings; pt was redirected. Later in the morning, pt agreed to speak to T/W while pacing unit hallway. Pt reports feeling okay ; he reports auditory hallucinations off and on throughout the day. Denies HI/VH. Passive SI with no plan. Pt reports he wants to be discharged to a longterm in [place]; social work aware. Labs ordered. 02/11 keep same treatment. 02/12 the patient looks more confused than usual, I am ordering new blood work for tomorrow morning. Ammonia level, comprehensive metabolic panel and CBC with differential 02/13: refused bloodwork. looking delirious this morning, a bit unsteady on the feet and fecal incontinence. hospitalist consult done, pt amenable to labs now. will check head CT, UA, UDS, and various serum labs. decrease paxil and seroquel by half to minimize anti-histaminergic and cholinergic medications. 02/14: Active on unit. Guarded. Pt reports feeling fine ; presents more organized today. Pt stated, I don't know why I was confused. I feel okay right now . Pt was seen by hospitalist; please see note. BMP to be drawn tomorrow. Pt reported difficulty urinating; bladder scan showed 198mL; waiting for UA results. Pt continues to report loose stools despite being given Imodium; GI consult placed d/t loose stool for 4 days/hx of colostomy. 02/15: Guarded. Attending some groups. Pt reports feeling okay ; Confused at times. incontinent of urine x1 today. denies SI/HI/VH/AH. Neurology consult placed. Waiting on GI consult and BMP results. Patient educated on: diagnosis and medication risk/benefits. 02/16: sleeping, not disturbed. neuro consult without recommendations. per GI consult: Check CBC, CMP, CRP, fecal calpro, GI panel, CDIff; Ideally would also get cross sectional imaging with contrast, but due to recent BERNARD will await renal function first. otherwise continue current mgmt. 02/17: Active on unit, social with select peers. More talkative today with T/W. Patient reports he spoke to his girlfriend who wants him to stay sober and get help. Pt stated, I want to stay clean. I plan to not use anymore . Pt more organized today. Reports some voices which decrease with Zyprexa. Pt was seen by hospitalist and given IV fluids; please see note. 02/18 continue tx. 02/19 continue tx. 02/20: Keeping to self. Pt reports feeling anxious ; he reports auditory hallucinations have decreased. denies SI/HI/VH. Continues to report loose stool; GI consult placed, awaiting follow up. Patient educated on: diagnosis, medication risk/benefits and therapeutic strategies Reason for continued inpatient stay Substantial Risk for: med/psych decompensation Time Spent With Patient Time: Total time managing care of this patient today _20___ minutes.
[2024-02-21 13:02] LABS: COVID-19 Test Negative (Negative); IDNOW Serial# 6674DD1D
--- NOTE | 2024-02-21 13:12 | PC.NURSE ---
Per provider MONUMENT LETTERER Gloria Lott patient may receive Imodium dose early.
--- NOTE | 2024-02-21 15:41 | P.PNGI_ITS ---
Subjective Subjective Date of Service: 02/21/24 Interval History: 49-year-old with high risk crohns phenotype -> penetrating Crohn's disease status post sigmoid resection for LBO 10/2022, ileocecectomy after small bowel perforation 01/2023 with non healing primary anastomosis, s/p diverting ileostomy which was reversed 12/2023 per pt's report. Pt complains of diarrhea - had 5 BMs last night and 3 BMs today Bowel movements are loose to watery - denies presence of blood in the stool. Patient complains of lower abdominal pain and denies any change in pain after a bowel movement. Appetite is so-so and patient admits to weight loss of 10 lb over the past 1 month Critical Care Time (minutes): 20 Comment: requested by Gloria Lott NP to FU on pt due to persistent diarrhea Physical Exam 2 Vital Signs: Vital Signs: Last Vital Signs Temp 98.5 F 02/21/24 08:41 Pulse 58 02/21/24 08:41 Resp 18 02/19/24 20:00 BP 146/80 H 02/21/24 08:43 Pulse Ox 97 02/21/24 08:41 O2 Del Method Room Air 02/21/24 08:41 BMI result Body Mass Index 24.2 Const: General: no acute distress Nutritional Appearance: average body habitus GI: Inspection: Yes scar (Midline and RLQ scar of recent abd surgery) A uscultation: normal bowel sounds Extrem: General: No pedal edema Objective Data Labs 02/18/24 12:01 02/18/24 12:01 Labs: Laboratory Results - last 24 hr 02/21/24 12:00 COVID-19 ([place]) Negative COVID-19 Clin Com See Note Procedures Date of Service Date of Service: 02/21/24 Progress Note: A&P Assessment and plan (1) Crohn's disease: Status: Acute (2) Chronic diarrhea: Status: Acute Plan 49-year-old with high risk crohns phenotype -> penetrating Crohn's disease status post sigmoid resection for LBO 10/2022, ileocecectomy after small bowel perforation 01/2023 with non healing primary anastomosis, s/p diverting ileostomy which was reversed 12/2023 per pt's report. Ddx for ongoing diarrhea include malabsorption due to bowel resection vs infectious colitis vs crohns flare. Labs showed elevated CRP of 1.61 GI panel was negative C Diff was cancelled due to formed stools Fecal calprotectin is pending RECOMMENDATIONS: 1. Repeat renal function in the am and if creatinine is normal, proceed with Abd CT scan to rule out active Crohn's disease. 2. Stool fat to check for malabsorption 2. [place] of a fibre supplement at bedtime for diarrhea - order placed. 3. If no improvement with a fibre supplement, can use low dose immodium for symptomatic control of diarrhea Time Spent With Patient Time: Total time managing care of this patient today ____ minutes.
[2024-02-21 20:00] VITALS: BP 116/72; PULSE 61; RESP 16; TEMP 36.6; O2SAT 97
[2024-02-21] MEDS: traZODone HCL 50 MG TABLET PO (22:58)
--- NOTE | 2024-02-22 00:01 | PC.NURSE ---
Pt refused HS meds at bed time. He is easily irritable and isolative to room, sleeping all evening.
[2024-02-22] MEDS: methADONE HCl 20 MG/2 ML ORAL.CONC 60 MG PO (07:54)
[2024-02-22 08:45] VITALS: BP 129/78; PULSE 70; RESP 20; TEMP 36.8; O2SAT 99
[2024-02-22 08:49] VITALS: BP 129/78
[2024-02-22] MEDS: OLANZapine 5 MG TABLET PO ×2 (08:49→15:31)
[2024-02-22] MEDS: PARoxetine HCL 10 MG TABLET PO (08:49)
[2024-02-22] MEDS: cloNIDine HCL 0.1 MG TABLET PO (08:49)
[2024-02-22] MEDS: buPROPion HCl XL 150 MG TAB.ER.24H PO (08:50)
[2024-02-22 09:00] VITALS: BP 127/73; PULSE 63; RESP 20
[2024-02-22] MEDS: hydrOXYzine HCL 25 MG TABLET PO (09:04)
[2024-02-22] MEDS: Loperamide HCl 2 MG CAPSULE 4 MG PO (09:04)
--- NOTE | 2024-02-22 09:45 | P.PNPSI_ITS ---
Subjective Subjective Date of Service: 02/22/24 Reason For Visit: crisis Subjective Notes: Conditional Voluntary Interim History: Reviewed with Dr. Vasquez. Calm, guarded.Keeping to self. Organized. Pt reports feeling anxious and depressed ; pt stated, I feel like I want to throw myself out the window . +SI. denies HI/VH. Continues to report auditory hallucinations which have decreased. DC Zyprexa; consider increasing Seroquel dose. Start: Abilify 5mg PO daily Creatinine 0.98 on 02/21. GI to order CT scan of abdomen. Medication Compliance: Yes Side effects from medications: No Review of Systems Constitutional: Reports as per HPI Eyes: Reports as per HPI Reports as per HPI Cardiovascular: Reports as per HPI Respiratory: Reports as per HPI Gastrointestinal: Reports as per HPI Genitourinary: Reports as per HPI Musculoskeletal: Reports as per HPI Skin/Breast: Reports as per HPI Reports as per HPI Psychiatric: Reports as per HPI Endocrine: Reports as per HPI Hematologic/Lymphatic: Reports as per HPI Allergic/Immunologic: Reports as per HPI Mental Status Exam Mental Status Exam Narrative: Pt is alert and oriented; behavior is cooperative and calm; dressed in casual attire; mood is described as depressed and anxious ; eye contact appropriate; Speech is normal rate, volume and not pressured; thought process is organized; Thought content is on tx; denies HI/VH. Pt reports auditory hallucinations that are decreasing. Pt reports suicidal ideation with thoughts to throw himself out the window . Diagnostics Vital Signs (24Hr): Vital Signs - 24 hr 02/21/24 20:00 02/22/24 08:45 02/22/24 08:49 Temperature 97.9 F 98.2 F Pulse Rate 61 70 Respiratory Rate 16 20 Blood Pressure 116/72 129/78 129/78 Pulse Oximetry 97 99 Oxygen Delivery Method Room Air Room Air BMI result Body Mass Index 24.2 Labs 02/18/24 12:01 02/22/24 12:10 Labs: Laboratory Results - last 48 hr 02/21/24 12:00 COVID-19 ([facility]) Negative COVID-19 Clin Com See Note Imaging Radiology Impressions: ITS Impressions Chest X-Ray 02/04/24 08:52 IMPRESSION: No acute pulmonary disease. Few streaky linear right lung base opacities are favored to represent atelectasis. Electronically signed by: Kory Jernigan MD 02/04/2024 11:26 AM EDT RP Head CT 02/14/24 13:49 IMPRESSION: No acute intracranial pathology. Electronically signed by: Pascale Robb MD 02/14/2024 08:02 PM EDT RP Medications Medications Current Medications Acetaminophen (Acetaminophen 325 Mg Tablet) 650 mg PO Q6H PRN PRN Reason: Headache/Pain Mild Scale (1-3) Last Admin: 02/21/24 08:42 Dose: 650 mg Al Hydroxide/Mg Hydroxide (Magnesium Hydrox/Alum Hydrox 30 Ml Oral.Susp) 30 ml PO Q6H PRN PRN Reason: Heartburn/Nausea Bupropion HCl (Bupropion Hcl Xl 150 Mg Tab.Er.24h) 150 mg PO DAILY [facility] Last Admin: 02/22/24 08:50 Dose: 150 mg Clonidine HCl (Clonidine Hcl 0.1 Mg Tablet) 0.1 mg PO BID [facility]; Protocol Last Admin: 02/22/24 08:49 Dose: 0.1 mg Hydroxyzine HCl (Hydroxyzine Hcl 25 Mg Tablet) 25 mg PO Q6H PRN PRN Reason: Anxiety Last Admin: 02/22/24 09:04 Dose: 25 mg Loperamide HCl (Loperamide Hcl 2 Mg Capsule) 4 mg PO Q6H PRN PRN Reason: Loose Stool Last Admin: 02/22/24 09:04 Dose: 4 mg Magnesium Hydroxide (Milk Of Magnesia 30 Ml Oral.Susp) 30 ml PO DAILY PRN PRN Reason: Constipation Methadone HCl (Methadone Hcl 20 Mg/2 Ml Oral.Conc) 60 mg PO DAILY@0800 [facility] Last Admin: 02/22/24 07:54 Dose: 60 mg Nicotine Polacrilex (Nicotine Polacrilex 2 Mg Gum) 4 mg BUCCAL Q2H PRN PRN Reason: Nicotine Cravings Olanzapine (Olanzapine 5 Mg Tablet) 5 mg PO TID [facility] Last Admin: 02/22/24 08:49 Dose: 5 mg Ondansetron HCl (Ondansetron Odt 8 Mg Tab.Rapdis) 8 mg TRANSLINGU Q12H PRN PRN Reason: Nausea and Vomiting Last Admin: 02/17/24 16:00 Dose: 8 mg Paroxetine HCl (Paroxetine Hcl 10 Mg Tablet) 10 mg PO DAILY [facility] Last Admin: 02/22/24 08:49 Dose: 10 mg Psyllium Hydrophilic Mucilloid (Psyllium Seed 3.7 Gm Packet) 3.7 gm PO BEDTIME [facility] Last Admin: 02/21/24 23:17 Dose: Not Given Quetiapine Fumarate (Quetiapine Fumarate 200 Mg Tablet) 200 mg PO BEDTIME [facility] Last Admin: 02/21/24 23:18 Dose: Not Given Trazodone HCl (Trazodone Hcl 50 Mg Tablet) 50 mg PO BEDTIME MRX1 PRN PRN Reason: Insomnia Last Admin: 02/21/24 22:58 Dose: 50 mg Allergies Allergies Allergy/AdvReac Type Severity Reaction Status Date / Time haloperidol [From Haldol] AdvReac see note Verified 02/21/24 15:28 Assessment & Plan Assessment & Plan (1) MDD (major depressive disorder), recurrent, severe, with psychosis: Status: Acute Code(s): F33.3 - Major depressive disorder, recurrent, severe with psychotic symptoms (2) Cocaine use disorder: Status: Acute Code(s): F14.10 - Cocaine abuse, uncomplicated (3) Opioid use disorder: Status: Acute Code(s): F11.90 - Opioid use, unspecified, uncomplicated (4) Homeless single person: Status: Acute Code(s): Z59.00 - Homelessness unspecified Plan Patient is a 49-year-old male with history of MDD, PTSD, opiate use disorder and cocaine use disorder who was brought in by ambulance from a hotel after a suicide attempt by overdose on multiple substances. Plan: CV 15 minute safety checks Review past medications Continue home medications Addiction medicine consult Build rapport Encourage groups Discharge planning 02/08: Laying in bed most of shift. Irritable. Guarded. Pt reports feeling anxious and depressed ; pt stated, I'm hearing voices telling me to kill myself. They told me to sniff all the bags of drugs. I felt like I had a devil and tony on my shoulders . Pt continues to report auditory hallucinations. He reports suicidal ideation with no plan. denies HI/VH. Pt reports he would like to go to respite after discharge. pt c/o of withdrawal symptoms; seen by addiction medicine. 02/09:Irritable. Guarded. Pt reports feeling depressed ; pt continues to report auditory hallucinations. He reports suicidal ideation with no plan. Pt stated, I always feel suicidal . denies HI/VH. Pt reports he would prefer to be referred to a respite or fci in [place] or [place]. Continue current tx plan. 02/10: Irritable. Guarded. Refusing to meet with T/W at first, despite multiple attempts. Pt stated, Oh my God. I don't want to talk. Just stay quiet . Observed going into room mates belongings; pt was redirected. Later in the morning, pt agreed to speak to T/W while pacing unit hallway. Pt reports feeling okay ; he reports auditory hallucinations off and on throughout the day. Denies HI/VH. Passive SI with no plan. Pt reports he wants to be discharged to a fci in [place]; social work aware. Labs ordered. 02/11 keep same treatment. 02/12 the patient looks more confused than usual, I am ordering new blood work for tomorrow morning. Ammonia level, comprehensive metabolic panel and CBC with differential 02/13: refused bloodwork. looking delirious this morning, a bit unsteady on the feet and fecal incontinence. hospitalist consult done, pt amenable to labs now. will check head CT, UA, UDS, and various serum labs. decrease paxil and seroquel by half to minimize anti-histaminergic and cholinergic medications. 02/14: Active on unit. Guarded. Pt reports feeling fine ; presents more organized today. Pt stated, I don't know why I was confused. I feel okay right now . Pt was seen by hospitalist; please see note. BMP to be drawn tomorrow. Pt reported difficulty urinating; bladder scan showed 198mL; waiting for UA results. Pt continues to report loose stools despite being given Imodium; GI consult placed d/t loose stool for 4 days/hx of colostomy. 02/15: Guarded. Attending some groups. Pt reports feeling okay ; Confused at times. incontinent of urine x1 today. denies SI/HI/VH/AH. Neurology consult placed. Waiting on GI consult and BMP results. Patient educated on: diagnosis and medication risk/benefits. 02/16: sleeping, not disturbed. neuro consult without recommendations. per GI consult: Check CBC, CMP, CRP, fecal calpro, GI panel, CDIff; Ideally would also get cross sectional imaging with contrast, but due to recent BERNARD will await renal function first. otherwise continue current mgmt. 02/17: Active on unit, social with select peers. More talkative today with T/W. Patient reports he spoke to his girlfriend who wants him to stay sober and get help. Pt stated, I want to stay clean. I plan to not use anymore . Pt more organized today. Reports some voices which decrease with Zyprexa. Pt was seen by hospitalist and given IV fluids; please see note. 02/18 continue tx. 02/19 continue tx. 02/20: Keeping to self. Pt reports feeling anxious ; he reports auditory hallucinations have decreased. denies SI/HI/VH. Continues to report loose stool; GI consult placed, awaiting follow up. 02/21: Calm, guarded.Keeping to self. Organized. Pt reports feeling anxious and depressed ; pt stated, I feel like I want to throw myself out the window . +SI. denies HI/VH. Continues to report auditory hallucinations which have decreased. DC Zyprexa; consider increasing Seroquel dose. Start: Abilify 5mg PO daily Creatinine 0.98 on 02/21. GI to order CT scan of abdomen. Patient educated on: diagnosis, medication risk/benefits, therapeutic strategies and medical condition Reason for continued inpatient stay Substantial Risk for: harm to self and med/psych decompensation Time Spent With Patient Time: Total time managing care of this patient today _20___ minutes.
[2024-02-22 12:39] LABS: Anion Gap 14 (12-20); Blood Urea Nitrogen 14 mg/dL (9-16); Calcium 9.8 mg/dL (8.4-10.2); Carbon Dioxide 23 mmol/L (22-29); Chloride 107 mmol/L (96-108); Creatinine Clr Calc Pharmacy 94.9; Estimated Glomerular Filt Rate > 60; Glucose Random 100 mg/dL (60-115); Potassium 4.4 mmol/L (3.3-5.1); Sodium 140 mmol/L (135-145)
[2024-02-22 13:12] LABS: Folate 5.9 ng/mL (> or = 4.0); Vitamin B12 505 pg/mL (200-900)
[2024-02-22 21:02] VITALS: BP 99/59; PULSE 60; RESP 16; TEMP 36.9; O2SAT 96
[2024-02-22] MEDS: QUEtiapine Fumarate 200 MG TABLET PO (21:05)
[2024-02-22] MEDS: traZODone HCL 50 MG TABLET PO (21:05)
[2024-02-23] MEDS: methADONE HCl 20 MG/2 ML ORAL.CONC 60 MG PO (07:56)
[2024-02-23 08:47] VITALS: BP 115/65; PULSE 66; TEMP 36.9; O2SAT 96
[2024-02-23 08:48] VITALS: BP 115/65
[2024-02-23] MEDS: PARoxetine HCL 10 MG TABLET PO (08:48)
[2024-02-23] MEDS: ARIPiprazole 5 MG TABLET PO (08:48)
[2024-02-23] MEDS: buPROPion HCl XL 150 MG TAB.ER.24H PO (08:48)
[2024-02-23] MEDS: cloNIDine HCL 0.1 MG TABLET PO ×2 (08:48→21:19)
--- NOTE | 2024-02-23 09:34 | HO.PSYCHPN ---
Subjective Subjective Date of Service: 02/23/24 Reason For Visit: crisis Subjective Notes: Conditional Voluntary Interim History: Keeping to self. Pt continues to reports feeling anxious and depressed ; pt reports suicidal ideation with no plan. denies HI/VH. Continues to report auditory hallucinations. denies any side effects from Abilify. Will discuss RODRIGUES with patient. GI ordered CT scan of abdomen; pt agreed to scan initially then declined. Pt stated, my stomach feels fine. I don't have diarrhea anymore. I just want treatment for my anxiety and depression . Medication Compliance: Yes Side effects from medications: No Attending Groups: No Review of Systems Constitutional: Reports as per HPI Eyes: Reports as per HPI Reports as per HPI Cardiovascular: Reports as per HPI Respiratory: Reports as per HPI Gastrointestinal: Reports as per HPI Genitourinary: Reports as per HPI Musculoskeletal: Reports as per HPI Skin/Breast: Reports as per HPI Reports as per HPI Psychiatric: Reports as per HPI Endocrine: Reports as per HPI Hematologic/Lymphatic: Reports as per HPI Allergic/Immunologic: Reports as per HPI Mental Status Exam Mental Status Exam Narrative: Pt is alert and oriented; behavior is cooperative and calm; dressed in casual attire; mood is described as depressed and anxious ; eye contact appropriate; Speech is normal rate, volume and not pressured; thought process is organized; Thought content is on tx; denies HI/VH. Pt reports auditory hallucinations that are decreasing. Pt reports suicidal ideation with no plan. Diagnostics Vital Signs (24Hr): Vital Signs - 24 hr 02/22/24 21:02 02/23/24 08:47 02/23/24 08:48 Temperature 98.4 F 98.5 F Pulse Rate 60 66 Respiratory Rate 16 Blood Pressure 99/59 L 115/65 115/65 Pulse Oximetry 96 96 Oxygen Delivery Method Room Air Room Air BMI result Body Mass Index 24.2 Labs 02/18/24 12:01 02/22/24 12:10 Labs: Laboratory Results - last 48 hr 02/21/24 02/22/24 12:00 12:10 Sodium 140 Potassium 4.4 Chloride 107 Carbon Dioxide 23 Anion Gap 14 BUN 14 Creatinine 0.98 Estim Creat Clear Calc 94.9 Estimated GFR > 60 Random Glucose 100 Calcium 9.8 Vitamin B12 505 Folate 5.9 COVID-19 ([facility]) Negative COVID-19 Clin Com See Note Imaging Radiology Impressions: ITS Impressions Chest X-Ray 02/04/24 08:52 IMPRESSION: No acute pulmonary disease. Few streaky linear right lung base opacities are favored to represent atelectasis. Electronically signed by: Kory Jernigan MD 02/04/2024 11:26 AM EDT RP Head CT 02/14/24 13:49 IMPRESSION: No acute intracranial pathology. Electronically signed by: Pascale Robb MD 02/14/2024 08:02 PM EDT RP Medications Medications Current Medications Acetaminophen (Acetaminophen 325 Mg Tablet) 650 mg PO Q6H PRN PRN Reason: Headache/Pain Mild Scale (1-3) Last Admin: 02/21/24 08:42 Dose: 650 mg Al Hydroxide/Mg Hydroxide (Magnesium Hydrox/Alum Hydrox 30 Ml Oral.Susp) 30 ml PO Q6H PRN PRN Reason: Heartburn/Nausea Aripiprazole (Aripiprazole 5 Mg Tablet) 5 mg PO DAILY [facility] Last Admin: 02/23/24 08:48 Dose: 5 mg Bupropion HCl (Bupropion Hcl Xl 150 Mg Tab.Er.24h) 150 mg PO DAILY [facility] Last Admin: 02/23/24 08:48 Dose: 150 mg Clonidine HCl (Clonidine Hcl 0.1 Mg Tablet) 0.1 mg PO BID [facility]; Protocol Last Admin: 02/23/24 08:48 Dose: 0.1 mg Hydroxyzine HCl (Hydroxyzine Hcl 25 Mg Tablet) 25 mg PO Q6H PRN PRN Reason: Anxiety Last Admin: 02/22/24 09:04 Dose: 25 mg Loperamide HCl (Loperamide Hcl 2 Mg Capsule) 4 mg PO Q6H PRN PRN Reason: Loose Stool Last Admin: 02/22/24 09:04 Dose: 4 mg Magnesium Hydroxide (Milk Of Magnesia 30 Ml Oral.Susp) 30 ml PO DAILY PRN PRN Reason: Constipation Methadone HCl (Methadone Hcl 20 Mg/2 Ml Oral.Conc) 60 mg PO DAILY@0800 [facility] Last Admin: 02/23/24 07:56 Dose: 60 mg Nicotine Polacrilex (Nicotine Polacrilex 2 Mg Gum) 4 mg BUCCAL Q2H PRN PRN Reason: Nicotine Cravings Ondansetron HCl (Ondansetron Odt 8 Mg Tab.Rapdis) 8 mg TRANSLINGU Q12H PRN PRN Reason: Nausea and Vomiting Last Admin: 02/17/24 16:00 Dose: 8 mg Paroxetine HCl (Paroxetine Hcl 10 Mg Tablet) 10 mg PO DAILY [facility] Last Admin: 02/23/24 08:48 Dose: 10 mg Psyllium Hydrophilic Mucilloid (Psyllium Seed 3.7 Gm Packet) 3.7 gm PO BEDTIME [facility] Last Admin: 02/22/24 21:06 Dose: Not Given Quetiapine Fumarate (Quetiapine Fumarate 200 Mg Tablet) 200 mg PO BEDTIME [facility] Last Admin: 02/22/24 21:05 Dose: 200 mg Trazodone HCl (Trazodone Hcl 50 Mg Tablet) 50 mg PO BEDTIME MRX1 PRN PRN Reason: Insomnia Last Admin: 02/22/24 21:05 Dose: 50 mg Allergies Allergies Allergy/AdvReac Type Severity Reaction Status Date / Time haloperidol [From Haldol] AdvReac see note Verified 02/21/24 15:28 Assessment & Plan Assessment & Plan (1) MDD (major depressive disorder), recurrent, severe, with psychosis: Status: Acute Code(s): F33.3 - Major depressive disorder, recurrent, severe with psychotic symptoms (2) Cocaine use disorder: Status: Acute Code(s): F14.10 - Cocaine abuse, uncomplicated (3) Opioid use disorder: Status: Acute Code(s): F11.90 - Opioid use, unspecified, uncomplicated (4) Homeless single person: Status: Acute Code(s): Z59.00 - Homelessness unspecified Plan Patient is a 49-year-old male with history of MDD, PTSD, opiate use disorder and cocaine use disorder who was brought in by ambulance from a hotel after a suicide attempt by overdose on multiple substances. Plan: CV 15 minute safety checks Review past medications Continue home medications Addiction medicine consult Build rapport Encourage groups Discharge planning 02/08: Laying in bed most of shift. Irritable. Guarded. Pt reports feeling anxious and depressed ; pt stated, I'm hearing voices telling me to kill myself. They told me to sniff all the bags of drugs. I felt like I had a devil and tony on my shoulders . Pt continues to report auditory hallucinations. He reports suicidal ideation with no plan. denies HI/VH. Pt reports he would like to go to respite after discharge. pt c/o of withdrawal symptoms; seen by addiction medicine. 02/09:Irritable. Guarded. Pt reports feeling depressed ; pt continues to report auditory hallucinations. He reports suicidal ideation with no plan. Pt stated, I always feel suicidal . denies HI/VH. Pt reports he would prefer to be referred to a respite or prison in [place] or [place]. Continue current tx plan. 02/10: Irritable. Guarded. Refusing to meet with T/W at first, despite multiple attempts. Pt stated, Oh my God. I don't want to talk. Just stay quiet . Observed going into room mates belongings; pt was redirected. Later in the morning, pt agreed to speak to T/W while pacing unit hallway. Pt reports feeling okay ; he reports auditory hallucinations off and on throughout the day. Denies HI/VH. Passive SI with no plan. Pt reports he wants to be discharged to a prison in [place]; social work aware. Labs ordered. 02/11 keep same treatment. 02/12 the patient looks more confused than usual, I am ordering new blood work for tomorrow morning. Ammonia level, comprehensive metabolic panel and CBC with differential 02/13: refused bloodwork. looking delirious this morning, a bit unsteady on the feet and fecal incontinence. hospitalist consult done, pt amenable to labs now. will check head CT, UA, UDS, and various serum labs. decrease paxil and seroquel by half to minimize anti-histaminergic and cholinergic medications. 02/14: Active on unit. Guarded. Pt reports feeling fine ; presents more organized today. Pt stated, I don't know why I was confused. I feel okay right now . Pt was seen by hospitalist; please see note. BMP to be drawn tomorrow. Pt reported difficulty urinating; bladder scan showed 198mL; waiting for UA results. Pt continues to report loose stools despite being given Imodium; GI consult placed d/t loose stool for 4 days/hx of colostomy. 02/15: Guarded. Attending some groups. Pt reports feeling okay ; Confused at times. incontinent of urine x1 today. denies SI/HI/VH/AH. Neurology consult placed. Waiting on GI consult and BMP results. Patient educated on: diagnosis and medication risk/benefits. 02/16: sleeping, not disturbed. neuro consult without recommendations. per GI consult: Check CBC, CMP, CRP, fecal calpro, GI panel, CDIff; Ideally would also get cross sectional imaging with contrast, but due to recent BERNARD will await renal function first. otherwise continue current mgmt. 02/17: Active on unit, social with select peers. More talkative today with T/W. Patient reports he spoke to his girlfriend who wants him to stay sober and get help. Pt stated, I want to stay clean. I plan to not use anymore . Pt more organized today. Reports some voices which decrease with Zyprexa. Pt was seen by hospitalist and given IV fluids; please see note. 02/18 continue tx. 02/19 continue tx. 02/20: Keeping to self. Pt reports feeling anxious ; he reports auditory hallucinations have decreased. denies SI/HI/VH. Continues to report loose stool; GI consult placed, awaiting follow up. 02/21: Calm, guarded.Keeping to self. Organized. Pt reports feeling anxious and depressed ; pt stated, I feel like I want to throw myself out the window . +SI. denies HI/VH. Continues to report auditory hallucinations which have decreased. DC Zyprexa; consider increasing Seroquel dose. Start: Abilify 5mg PO daily Creatinine 0.98 on 02/21. GI to order CT scan of abdomen. 02/22: Keeping to self. Pt continues to reports feeling anxious and depressed ; pt reports suicidal ideation with no plan. denies HI/VH. Continues to report auditory hallucinations. denies any side effects from Abilify. Will discuss RODRIGUES with patient. GI ordered CT scan of abdomen; pt agreed to scan initially then declined. Pt stated, my stomach feels fine. I don't have diarrhea anymore. I just want treatment for my anxiety and depression . Patient educated on: diagnosis, medication risk/benefits and therapeutic strategies Reason for continued inpatient stay Substantial Risk for: harm to self and med/psych decompensation Time Spent With Patient Time: Total time managing care of this patient today _30___ minutes.
[2024-02-23] MEDS: Acetaminophen 325 MG TABLET 650 MG PO (15:49)
[2024-02-23] MEDS: Loperamide HCl 2 MG CAPSULE 4 MG PO (15:49)
[2024-02-23 20:00] VITALS: RESP 18
[2024-02-23] MEDS: Psyllium seed 3.7 GM PACKET PO (21:19)
[2024-02-23] MEDS: QUEtiapine Fumarate 200 MG TABLET PO (21:19)
[2024-02-24] MEDS: methADONE HCl 20 MG/2 ML ORAL.CONC 60 MG PO (07:54)
[2024-02-24 08:00] VITALS: RESP 18
[2024-02-24] MEDS: buPROPion HCl XL 150 MG TAB.ER.24H PO (08:17)
[2024-02-24] MEDS: ARIPiprazole 5 MG TABLET PO (08:17)
[2024-02-24] MEDS: PARoxetine HCL 10 MG TABLET PO (08:17)
--- NOTE | 2024-02-24 10:47 | P.PNPSI_ITS ---
Subjective Subjective Date of Service: 02/24/24 Reason For Visit: crisis Subjective Notes: Conditional Voluntary Interim History: Keeping to self. Pt continues to report feeling depressed ; pt reports suicidal ideation with no plan. denies HI/VH. Continues to report auditory hallucinations. Abilify increased to 10mg PO daily; discussed RODRIGUES, pt reports he will think about it . per nursing, pt slept 8 hours last night. Medication Compliance: Yes Side effects from medications: No Attending Groups: No Review of Systems Constitutional: Reports as per HPI Eyes: Reports as per HPI Reports as per HPI Cardiovascular: Reports as per HPI Respiratory: Reports as per HPI Gastrointestinal: Reports as per HPI Genitourinary: Reports as per HPI Musculoskeletal: Reports as per HPI Skin/Breast: Reports as per HPI Reports as per HPI Psychiatric: Reports as per HPI Endocrine: Reports as per HPI Hematologic/Lymphatic: Reports as per HPI Allergic/Immunologic: Reports as per HPI Mental Status Exam Mental Status Exam Narrative: Pt is alert and oriented; behavior is cooperative and calm; dressed in casual attire; mood is described as depressed ; eye contact appropriate; Speech is normal rate, volume and not pressured; thought process is organized; Thought content is on tx; denies HI/VH. Pt reports auditory hallucinations that are decreasing. Pt reports suicidal ideation with no plan. Diagnostics Vital Signs (24Hr): Vital Signs - 24 hr 02/23/24 20:00 02/24/24 08:00 Respiratory Rate 18 18 BMI result Body Mass Index 24.2 Labs 02/18/24 12:01 02/22/24 12:10 Labs: Laboratory Results - last 48 hr 02/22/24 12:10 Sodium 140 Potassium 4.4 Chloride 107 Carbon Dioxide 23 Anion Gap 14 BUN 14 Creatinine 0.98 Estim Creat Clear Calc 94.9 Estimated GFR > 60 Random Glucose 100 Calcium 9.8 Vitamin B12 505 Folate 5.9 Imaging Radiology Impressions: ITS Impressions Chest X-Ray 02/04/24 08:52 IMPRESSION: No acute pulmonary disease. Few streaky linear right lung base opacities are favored to represent atelectasis. Electronically signed by: Kory Jerniagn MD 02/04/2024 11:[address] 02/14/24 13:49 IMPRESSION: No acute intracranial pathology. Electronically signed by: Pascale Robb MD 02/14/2024 08:02 PM EDT RP Medications Medications Current Medications Acetaminophen (Acetaminophen 325 Mg Tablet) 650 mg PO Q6H PRN PRN Reason: Headache/Pain Mild Scale (1-3) Last Admin: 02/23/24 15:49 Dose: 650 mg Al Hydroxide/Mg Hydroxide (Magnesium Hydrox/Alum Hydrox 30 Ml Oral.Susp) 30 ml PO Q6H PRN PRN Reason: Heartburn/Nausea Aripiprazole (Aripiprazole 5 Mg Tablet) 5 mg PO DAILY [facility] Last Admin: 02/24/24 08:17 Dose: 5 mg Bupropion HCl (Bupropion Hcl Xl 150 Mg Tab.Er.24h) 150 mg PO DAILY [facility] Last Admin: 02/24/24 08:17 Dose: 150 mg Clonidine HCl (Clonidine Hcl 0.1 Mg Tablet) 0.1 mg PO BID [facility]; Protocol Last Admin: 02/24/24 08:18 Dose: Not Given Hydroxyzine HCl (Hydroxyzine Hcl 25 Mg Tablet) 25 mg PO Q6H PRN PRN Reason: Anxiety Last Admin: 02/22/24 09:04 Dose: 25 mg Loperamide HCl (Loperamide Hcl 2 Mg Capsule) 4 mg PO Q6H PRN PRN Reason: Loose Stool Last Admin: 02/23/24 15:49 Dose: 4 mg Magnesium Hydroxide (Milk Of Magnesia 30 Ml Oral.Susp) 30 ml PO DAILY PRN PRN Reason: Constipation Methadone HCl (Methadone Hcl 20 Mg/2 Ml Oral.Conc) 60 mg PO DAILY@0800 [facility] Last Admin: 02/24/24 07:54 Dose: 60 mg Nicotine Polacrilex (Nicotine Polacrilex 2 Mg Gum) 4 mg BUCCAL Q2H PRN PRN Reason: Nicotine Cravings Ondansetron HCl (Ondansetron Odt 8 Mg Tab.Rapdis) 8 mg TRANSLINGU Q12H PRN PRN Reason: Nausea and Vomiting Last Admin: 02/17/24 16:00 Dose: 8 mg Paroxetine HCl (Paroxetine Hcl 10 Mg Tablet) 10 mg PO DAILY [facility] Last Admin: 02/24/24 08:17 Dose: 10 mg Psyllium Hydrophilic Mucilloid (Psyllium Seed 3.7 Gm Packet) 3.7 gm PO BEDTIME [facility] Last Admin: 10/30/24 21:19 Dose: 3.7 gm Quetiapine Fumarate (Quetiapine Fumarate 200 Mg Tablet) 200 mg PO BEDTIME [facility] Last Admin: 02/23/24 21:19 Dose: 200 mg Trazodone HCl (Trazodone Hcl 50 Mg Tablet) 50 mg PO BEDTIME MRX1 PRN PRN Reason: Insomnia Last Admin: 02/22/24 21:05 Dose: 50 mg Allergies Allergies Allergy/AdvReac Type Severity Reaction Status Date / Time haloperidol [From Haldol] AdvReac see note Verified 02/21/24 15:28 Assessment & Plan Assessment & Plan (1) MDD (major depressive disorder), recurrent, severe, with psychosis: Status: Acute Code(s): F33.3 - Major depressive disorder, recurrent, severe with psychotic symptoms (2) Cocaine use disorder: Status: Acute Code(s): F14.10 - Cocaine abuse, uncomplicated (3) Opioid use disorder: Status: Acute Code(s): F11.90 - Opioid use, unspecified, uncomplicated (4) Homeless single person: Status: Acute Code(s): Z59.00 - Homelessness unspecified Plan Patient is a 49-year-old male with history of MDD, PTSD, opiate use disorder and cocaine use disorder who was brought in by ambulance from a hotel after a suicide attempt by overdose on multiple substances. Plan: CV 15 minute safety checks Review past medications Continue home medications Addiction medicine consult Build rapport Encourage groups Discharge planning 02/08: Laying in bed most of shift. Irritable. Guarded. Pt reports feeling anxious and depressed ; pt stated, I'm hearing voices telling me to kill myself. They told me to sniff all the bags of drugs. I felt like I had a devil and tony on my shoulders . Pt continues to report auditory hallucinations. He reports suicidal ideation with no plan. denies HI/VH. Pt reports he would like to go to respite after discharge. pt c/o of withdrawal symptoms; seen by addiction medicine. 02/09:Irritable. Guarded. Pt reports feeling depressed ; pt continues to report auditory hallucinations. He reports suicidal ideation with no plan. Pt stated, I always feel suicidal . denies HI/VH. Pt reports he would prefer to be referred to a respite or assisted in [place] or [place]. Continue current tx plan. 02/10: Irritable. Guarded. Refusing to meet with T/W at first, despite multiple attempts. Pt stated, Oh my God. I don't want to talk. Just stay quiet . Observed going into room mates belongings; pt was redirected. Later in the morning, pt agreed to speak to T/W while pacing unit hallway. Pt reports feeling okay ; he reports auditory hallucinations off and on throughout the day. Denies HI/VH. Passive SI with no plan. Pt reports he wants to be discharged to a assisted in [place]; social work aware. Labs ordered. 02/11 keep same treatment. 02/12 the patient looks more confused than usual, I am ordering new blood work for tomorrow morning. Ammonia level, comprehensive metabolic panel and CBC with differential 02/13: refused bloodwork. looking delirious this morning, a bit unsteady on the feet and fecal incontinence. hospitalist consult done, pt amenable to labs now. will check head CT, UA, UDS, and various serum labs. decrease paxil and seroquel by half to minimize anti-histaminergic and cholinergic medications. 02/14: Active on unit. Guarded. Pt reports feeling fine ; presents more organized today. Pt stated, I don't know why I was confused. I feel okay right now . Pt was seen by hospitalist; please see note. BMP to be drawn tomorrow. Pt reported difficulty urinating; bladder scan showed 198mL; waiting for UA results. Pt continues to report loose stools despite being given Imodium; GI consult placed d/t loose stool for 4 days/hx of colostomy. 02/15: Guarded. Attending some groups. Pt reports feeling okay ; Confused at times. incontinent of urine x1 today. denies SI/HI/VH/AH. Neurology consult placed. Waiting on GI consult and BMP results. Patient educated on: diagnosis and medication risk/benefits. 02/16: sleeping, not disturbed. neuro consult without recommendations. per GI consult: Check CBC, CMP, CRP, fecal calpro, GI panel, CDIff; Ideally would also get cross sectional imaging with contrast, but due to recent BERNARD will await renal function first. otherwise continue current mgmt. 02/17: Active on unit, social with select peers. More talkative today with T/W. Patient reports he spoke to his girlfriend who wants him to stay sober and get help. Pt stated, I want to stay clean. I plan to not use anymore . Pt more organized today. Reports some voices which decrease with Zyprexa. Pt was seen by hospitalist and given IV fluids; please see note. 02/18 continue tx. 02/19 continue tx. 02/20: Keeping to self. Pt reports feeling anxious ; he reports auditory hallucinations have decreased. denies SI/HI/VH. Continues to report loose stool; GI consult placed, awaiting follow up. 02/21: Calm, guarded.Keeping to self. Organized. Pt reports feeling anxious and depressed ; pt stated, I feel like I want to throw myself out the window . +SI. denies HI/VH. Continues to report auditory hallucinations which have decreased. DC Zyprexa; consider increasing Seroquel dose. Start: Abilify 5mg PO daily Creatinine 0.98 on 02/21. GI to order CT scan of abdomen. 02/22: Keeping to self. Pt continues to reports feeling anxious and depressed ; pt reports suicidal ideation with no plan. denies HI/VH. Continues to report auditory hallucinations. denies any side effects from Abilify. Will discuss RODRIGUES with patient. GI ordered CT scan of abdomen; pt agreed to scan initially then declined. Pt stated, my stomach feels fine. I don't have diarrhea anymore. I just want treatment for my anxiety and depression . 02/23: Pt continues to report feeling depressed ; pt reports suicidal ideation with no plan. denies HI/VH. Continues to report auditory hallucinations. Abilify increased to 10mg PO daily; discussed RODRIGUES, pt reports he will think about it . per nursing, pt slept 8 hours last night. Patient educated on: diagnosis, medication risk/benefits and therapeutic strategies Reason for continued inpatient stay Substantial Risk for: harm to self and med/psych decompensation Time Spent With Patient Time: Total time managing care of this patient today _20___ minutes.
[2024-02-24 20:35] VITALS: RESP 16
[2024-02-24 21:25] VITALS: BP 125/77; PULSE 61; RESP 18; TEMP 36.9; O2SAT 98
[2024-02-24] MEDS: QUEtiapine Fumarate 200 MG TABLET PO (21:31)
[2024-02-24] MEDS: Psyllium seed 3.7 GM PACKET PO (21:31)
[2024-02-24] MEDS: cloNIDine HCL 0.1 MG TABLET PO (21:31)
[2024-02-25 08:36] VITALS: BP 129/76; PULSE 57; RESP 16; TEMP 36.6; O2SAT 97
[2024-02-25] MEDS: methADONE HCl 20 MG/2 ML ORAL.CONC 60 MG PO (08:44)
[2024-02-25] MEDS: cloNIDine HCL 0.1 MG TABLET PO ×2 (08:56→19:37)
[2024-02-25] MEDS: buPROPion HCl XL 150 MG TAB.ER.24H PO (08:56)
[2024-02-25] MEDS: ARIPiprazole 10 MG TABLET PO (08:57)
[2024-02-25] MEDS: PARoxetine HCL 10 MG TABLET PO (08:57)
[2024-02-25] MEDS: Acetaminophen 325 MG TABLET 650 MG PO (08:57)
--- NOTE | 2024-02-25 09:20 | HO.PSYCHPN ---
Subjective Subjective Date of Service: 02/25/24 Reason For Visit: crisis Subjective Notes: Conditional Voluntary Interim History: Pt continues to report feeling depressed ; pt reports suicidal ideation with no plan. denies HI/VH. Continues to report auditory hallucinations. Patient reports he is trying to find something to live for ; pt reports he is going to try to attend groups. GI (Dr. Rayo) ordered CT scan of abdomen; pt declined again despite multiple attempts. Medication Compliance: Yes Side effects from medications: No Mental Status Exam Mental Status Exam Narrative: Pt is alert and oriented; behavior is cooperative and calm; dressed in casual attire; mood is described as depressed ; eye contact appropriate; Speech is normal rate, volume and not pressured; thought process is organized; Thought content is on tx; denies HI/VH. Pt reports auditory hallucinations that are decreasing. Pt reports suicidal ideation with no plan. Diagnostics Vital Signs (24Hr): Vital Signs - 24 hr 02/24/24 20:35 02/24/24 21:25 02/25/24 08:36 Temperature 98.5 F 97.9 F Pulse Rate 61 57 Respiratory Rate 16 18 16 Blood Pressure 125/77 129/76 Pulse Oximetry 98 97 Oxygen Delivery Method Room Air Room Air BMI result Body Mass Index 24.2 Labs 02/18/24 12:01 02/22/24 12:10 Imaging Radiology Impressions: ITS Impressions Chest X-Ray 02/04/24 08:52 IMPRESSION: No acute pulmonary disease. Few streaky linear right lung base opacities are favored to represent atelectasis. Electronically signed by: Kory Jernigan MD 02/04/2024 11:26 AM EDT RP Head CT 02/14/24 13:49 IMPRESSION: No acute intracranial pathology. Electronically signed by: Pascale Robb MD 02/14/2024 08:02 PM EDT RP Medications Medications Current Medications Acetaminophen (Acetaminophen 325 Mg Tablet) 650 mg PO Q6H PRN PRN Reason: Headache/Pain Mild Scale (1-3) Last Admin: 02/25/24 08:57 Dose: 650 mg Al Hydroxide/Mg Hydroxide (Magnesium Hydrox/Alum Hydrox 30 Ml Oral.Susp) 30 ml PO Q6H PRN PRN Reason: Heartburn/Nausea Aripiprazole (Aripiprazole 10 Mg Tablet) 10 mg PO DAILY [facility] Last Admin: 02/25/24 08:57 Dose: 10 mg Bupropion HCl (Bupropion Hcl Xl 150 Mg Tab.Er.24h) 150 mg PO DAILY [facility] Last Admin: 02/25/24 08:56 Dose: 150 mg Clonidine HCl (Clonidine Hcl 0.1 Mg Tablet) 0.1 mg PO BID [facility]; Protocol Last Admin: 02/25/24 08:56 Dose: 0.1 mg Hydroxyzine HCl (Hydroxyzine Hcl 25 Mg Tablet) 25 mg PO Q6H PRN PRN Reason: Anxiety Last Admin: 02/22/24 09:04 Dose: 25 mg Loperamide HCl (Loperamide Hcl 2 Mg Capsule) 4 mg PO Q6H PRN PRN Reason: Loose Stool Last Admin: 02/23/24 15:49 Dose: 4 mg Magnesium Hydroxide (Milk Of Magnesia 30 Ml Oral.Susp) 30 ml PO DAILY PRN PRN Reason: Constipation Methadone HCl (Methadone Hcl 20 Mg/2 Ml Oral.Conc) 60 mg PO DAILY@0800 [facility] Last Admin: 02/25/24 08:44 Dose: 60 mg Nicotine Polacrilex (Nicotine Polacrilex 2 Mg Gum) 4 mg BUCCAL Q2H PRN PRN Reason: Nicotine Cravings Ondansetron HCl (Ondansetron Odt 8 Mg Tab.Rapdis) 8 mg TRANSLINGU Q12H PRN PRN Reason: Nausea and Vomiting Last Admin: 02/17/24 16:00 Dose: 8 mg Paroxetine HCl (Paroxetine Hcl 10 Mg Tablet) 10 mg PO DAILY [facility] Last Admin: 02/25/24 08:57 Dose: 10 mg Psyllium Hydrophilic Mucilloid (Psyllium Seed 3.7 Gm Packet) 3.7 gm PO BEDTIME [facility] Last Admin: 02/24/24 21:31 Dose: 3.7 gm Quetiapine Fumarate (Quetiapine Fumarate 200 Mg Tablet) 200 mg PO BEDTIME [facility] Last Admin: 02/24/24 21:31 Dose: 200 mg Trazodone HCl (Trazodone Hcl 50 Mg Tablet) 50 mg PO BEDTIME MRX1 PRN PRN Reason: Insomnia Last Admin: 02/22/24 21:05 Dose: 50 mg Allergies Allergies Allergy/AdvReac Type Severity Reaction Status Date / Time haloperidol [From Haldol] AdvReac see note Verified 02/21/24 15:28 Assessment & Plan Assessment & Plan (1) MDD (major depressive disorder), recurrent, severe, with psychosis: Status: Acute Code(s): F33.3 - Major depressive disorder, recurrent, severe with psychotic symptoms (2) Cocaine use disorder: Status: Acute Code(s): F14.10 - Cocaine abuse, uncomplicated (3) Opioid use disorder: Status: Acute Code(s): F11.90 - Opioid use, unspecified, uncomplicated (4) Homeless single person: Status: Acute Code(s): Z59.00 - Homelessness unspecified Plan Patient is a 49-year-old male with history of MDD, PTSD, opiate use disorder and cocaine use disorder who was brought in by ambulance from a hotel after a suicide attempt by overdose on multiple substances. Plan: CV 15 minute safety checks Review past medications Continue home medications Addiction medicine consult Build rapport Encourage groups Discharge planning 02/08: Laying in bed most of shift. Irritable. Guarded. Pt reports feeling anxious and depressed ; pt stated, I'm hearing voices telling me to kill myself. They told me to sniff all the bags of drugs. I felt like I had a devil and tony on my shoulders . Pt continues to report auditory hallucinations. He reports suicidal ideation with no plan. denies HI/VH. Pt reports he would like to go to respite after discharge. pt c/o of withdrawal symptoms; seen by addiction medicine. 02/09:Irritable. Guarded. Pt reports feeling depressed ; pt continues to report auditory hallucinations. He reports suicidal ideation with no plan. Pt stated, I always feel suicidal . denies HI/VH. Pt reports he would prefer to be referred to a respite or skilled nursing in [place] or [place]. Continue current tx plan. 02/10: Irritable. Guarded. Refusing to meet with T/W at first, despite multiple attempts. Pt stated, Oh my God. I don't want to talk. Just stay quiet . Observed going into room mates belongings; pt was redirected. Later in the morning, pt agreed to speak to T/W while pacing unit hallway. Pt reports feeling okay ; he reports auditory hallucinations off and on throughout the day. Denies HI/VH. Passive SI with no plan. Pt reports he wants to be discharged to a skilled nursing in [place]; social work aware. Labs ordered. 02/11 keep same treatment. 02/12 the patient looks more confused than usual, I am ordering new blood work for tomorrow morning. Ammonia level, comprehensive metabolic panel and CBC with differential 02/13: refused bloodwork. looking delirious this morning, a bit unsteady on the feet and fecal incontinence. hospitalist consult done, pt amenable to labs now. will check head CT, UA, UDS, and various serum labs. decrease paxil and seroquel by half to minimize anti-histaminergic and cholinergic medications. 02/14: Active on unit. Guarded. Pt reports feeling fine ; presents more organized today. Pt stated, I don't know why I was confused. I feel okay right now . Pt was seen by hospitalist; please see note. BMP to be drawn tomorrow. Pt reported difficulty urinating; bladder scan showed 198mL; waiting for UA results. Pt continues to report loose stools despite being given Imodium; GI consult placed d/t loose stool for 4 days/hx of colostomy. 02/15: Guarded. Attending some groups. Pt reports feeling okay ; Confused at times. incontinent of urine x1 today. denies SI/HI/VH/AH. Neurology consult placed. Waiting on GI consult and BMP results. Patient educated on: diagnosis and medication risk/benefits. 02/16: sleeping, not disturbed. neuro consult without recommendations. per GI consult: Check CBC, CMP, CRP, fecal calpro, GI panel, CDIff; Ideally would also get cross sectional imaging with contrast, but due to recent BERNARD will await renal function first. otherwise continue current mgmt. 02/17: Active on unit, social with select peers. More talkative today with T/W. Patient reports he spoke to his girlfriend who wants him to stay sober and get help. Pt stated, I want to stay clean. I plan to not use anymore . Pt more organized today. Reports some voices which decrease with Zyprexa. Pt was seen by hospitalist and given IV fluids; please see note. 02/18 continue tx. 02/19 continue tx. 02/20: Keeping to self. Pt reports feeling anxious ; he reports auditory hallucinations have decreased. denies SI/HI/VH. Continues to report loose stool; GI consult placed, awaiting follow up. 02/21: Calm, guarded.Keeping to self. Organized. Pt reports feeling anxious and depressed ; pt stated, I feel like I want to throw myself out the window . +SI. denies HI/VH. Continues to report auditory hallucinations which have decreased. DC Zyprexa; consider increasing Seroquel dose. Start: Abilify 5mg PO daily Creatinine 0.98 on 02/21. GI to order CT scan of abdomen. 02/22: Keeping to self. Pt continues to reports feeling anxious and depressed ; pt reports suicidal ideation with no plan. denies HI/VH. Continues to report auditory hallucinations. denies any side effects from Abilify. Will discuss RODRIGUES with patient. GI ordered CT scan of abdomen; pt agreed to scan initially then declined. Pt stated, my stomach feels fine. I don't have diarrhea anymore. I just want treatment for my anxiety and depression . 02/23: Pt continues to report feeling depressed ; pt reports suicidal ideation with no plan. denies HI/VH. Continues to report auditory hallucinations. Abilify increased to 10mg PO daily; discussed RODRIGUES, pt reports he will think about it . per nursing, pt slept 8 hours last night. 02/24: Pt continues to report feeling depressed ; pt reports suicidal ideation with no plan. denies HI/VH. Continues to report auditory hallucinations. Patient reports he is trying to find something to live for ; pt reports he is going to try to attend groups. Continue current tx plan. GI (Dr. Rayo) ordered CT scan of abdomen; pt declined again despite multiple attempts. Patient educated on: diagnosis, medication risk/benefits and therapeutic strategies Reason for continued inpatient stay Substantial Risk for: harm to self and med/psych decompensation Time Spent With Patient Time: Total time managing care of this patient today _20___ minutes.
--- NOTE | 2024-02-25 15:11 | PM.EVENT ---
Event Note Date of Service: 02/25/24 Event Note: Pt had declined CT abd/pel previously ordered. Now agreeable. Order re-entered. Time Spent With Patient Time: Total time managing care of this patient today ____ minutes.
--- NOTE | 2024-02-25 15:43 | PC.NURSE ---
02/25/24 Pt in the AM agreed to doing a CT scan of abdomen, later on the shift when asked if he would go down to do the procedure pt reported I don't want to do any testing. I will not get any IVs put in. Gloria aware at 1530.
[2024-02-25] MEDS: hydrOXYzine HCL 25 MG TABLET PO (16:15)
[2024-02-25] MEDS: QUEtiapine Fumarate 100 MG TABLET PO (19:02)
[2024-02-25 19:20] VITALS: BP 125/87
[2024-02-25] MEDS: QUEtiapine Fumarate 200 MG TABLET PO (19:36)
[2024-02-25 19:37] VITALS: BP 125/87
[2024-02-26 08:00] VITALS: BP 128/78; PULSE 67; RESP 67; TEMP 36.8; O2SAT 98
--- NOTE | 2024-02-26 08:02 | HO.PSYCHPN ---
Subjective Subjective Date of Service: 02/26/24 Reason For Visit: crisis Subjective Notes: Conditional Voluntary Interim History: Ongoing depresion and SI and AH. Encouraged ref CT scan. Sleep ok. Isolative. Medication Compliance: Yes Side effects from medications: No Attending Groups: Intermittent Review of Systems Acute medical concerns: No Review of Systems Review of Systems nothing acute Mental Status Exam Mental Status Exam Narrative: Pt is alert and oriented; behavior is cooperative and calm; dressed in casual attire; mood is described as depressed ; eye contact appropriate; Speech is normal rate, volume and not pressured; thought process is organized; Thought content is on tx; denies HI/VH. Pt reports auditory hallucinations (less frequent). Pt reports suicidal ideation with no plan. Diagnostics Vital Signs (24Hr): Vital Signs - 24 hr 02/25/24 08:36 02/25/24 19:20 02/25/24 19:37 Temperature 97.9 F Pulse Rate 57 Respiratory Rate 16 Blood Pressure 129/76 125/87 125/87 Pulse Oximetry 97 Oxygen Delivery Method Room Air BMI result Body Mass Index 24.2 Labs 02/18/24 12:01 02/22/24 12:10 Imaging Radiology Impressions: ITS Impressions Chest X-Ray 02/04/24 08:52 IMPRESSION: No acute pulmonary disease. Few streaky linear right lung base opacities are favored to represent atelectasis. Electronically signed by: Kory Jernigan MD 02/04/2024 11:26 AM EDT RP Head CT 02/14/24 13:49 IMPRESSION: No acute intracranial pathology. Electronically signed by: Pascale Robb MD 02/14/2024 08:02 PM EDT RP Medications Medications Current Medications Acetaminophen (Acetaminophen 325 Mg Tablet) 650 mg PO Q6H PRN PRN Reason: Headache/Pain Mild Scale (1-3) Last Admin: 02/25/24 08:57 Dose: 650 mg Al Hydroxide/Mg Hydroxide (Magnesium Hydrox/Alum Hydrox 30 Ml Oral.Susp) 30 ml PO Q6H PRN PRN Reason: Heartburn/Nausea Aripiprazole (Aripiprazole 10 Mg Tablet) 10 mg PO DAILY [facility] Last Admin: 02/25/24 08:57 Dose: 10 mg Bupropion HCl (Bupropion Hcl Xl 150 Mg Tab.Er.24h) 150 mg PO DAILY [facility] Last Admin: 02/25/24 08:56 Dose: 150 mg Clonidine HCl (Clonidine Hcl 0.1 Mg Tablet) 0.1 mg PO BID [facility]; Protocol Last Admin: 02/25/24 19:37 Dose: 0.1 mg Hydroxyzine HCl (Hydroxyzine Hcl 25 Mg Tablet) 25 mg PO Q6H PRN PRN Reason: Anxiety Last Admin: 02/25/24 16:15 Dose: 25 mg Loperamide HCl (Loperamide Hcl 2 Mg Capsule) 4 mg PO Q6H PRN PRN Reason: Loose Stool Last Admin: 02/23/24 15:49 Dose: 4 mg Magnesium Hydroxide (Milk Of Magnesia 30 Ml Oral.Susp) 30 ml PO DAILY PRN PRN Reason: Constipation Methadone HCl (Methadone Hcl 20 Mg/2 Ml Oral.Conc) 60 mg PO DAILY@0800 [facility] Last Admin: 02/25/24 08:44 Dose: 60 mg Nicotine Polacrilex (Nicotine Polacrilex 2 Mg Gum) 4 mg BUCCAL Q2H PRN PRN Reason: Nicotine Cravings Ondansetron HCl (Ondansetron Odt 8 Mg Tab.Rapdis) 8 mg TRANSLINGU Q12H PRN PRN Reason: Nausea and Vomiting Last Admin: 02/17/24 16:00 Dose: 8 mg Paroxetine HCl (Paroxetine Hcl 10 Mg Tablet) 10 mg PO DAILY [facility] Last Admin: 02/25/24 08:57 Dose: 10 mg Psyllium Hydrophilic Mucilloid (Psyllium Seed 3.7 Gm Packet) 3.7 gm PO BEDTIME [facility] Last Admin: 02/25/24 19:37 Dose: Not Given Quetiapine Fumarate (Quetiapine Fumarate 200 Mg Tablet) 200 mg PO BEDTIME [facility] Last Admin: 02/25/24 19:36 Dose: 200 mg Quetiapine Fumarate (Quetiapine Fumarate 100 Mg Tablet) 100 mg PO BID PRN PRN Reason: anxiety/agitation Last Admin: 02/25/24 19:02 Dose: 100 mg Trazodone HCl (Trazodone Hcl 50 Mg Tablet) 50 mg PO BEDTIME MRX1 PRN PRN Reason: Insomnia Last Admin: 02/22/24 21:05 Dose: 50 mg Allergies Allergies Allergy/AdvReac Type Severity Reaction Status Date / Time haloperidol [From Haldol] AdvReac see note Verified 10/28/24 15:28 Assessment & Plan Assessment & Plan (1) MDD (major depressive disorder), recurrent, severe, with psychosis: Status: Acute Code(s): F33.3 - Major depressive disorder, recurrent, severe with psychotic symptoms (2) Cocaine use disorder: Status: Acute Code(s): F14.10 - Cocaine abuse, uncomplicated (3) Opioid use disorder: Status: Acute Code(s): F11.90 - Opioid use, unspecified, uncomplicated (4) Homeless single person: Status: Acute Code(s): Z59.00 - Homelessness unspecified Plan Patient is a 49-year-old male with history of MDD, PTSD, opiate use disorder and cocaine use disorder who was brought in by ambulance from a hotel after a suicide attempt by overdose on multiple substances. Plan: CV 15 minute safety checks Review past medications Continue home medications Addiction medicine consult Build rapport Encourage groups Discharge planning 02/08: Laying in bed most of shift. Irritable. Guarded. Pt reports feeling anxious and depressed ; pt stated, I'm hearing voices telling me to kill myself. They told me to sniff all the bags of drugs. I felt like I had a devil and tony on my shoulders . Pt continues to report auditory hallucinations. He reports suicidal ideation with no plan. denies HI/VH. Pt reports he would like to go to respite after discharge. pt c/o of withdrawal symptoms; seen by addiction medicine. 02/09:Irritable. Guarded. Pt reports feeling depressed ; pt continues to report auditory hallucinations. He reports suicidal ideation with no plan. Pt stated, I always feel suicidal . denies HI/VH. Pt reports he would prefer to be referred to a respite or halfway in [facility]. Continue current tx plan. 02/10: Irritable. Guarded. Refusing to meet with T/W at first, despite multiple attempts. Pt stated, Oh my God. I don't want to talk. Just stay quiet . Observed going into room mates belongings; pt was redirected. Later in the morning, pt agreed to speak to T/W while pacing unit hallway. Pt reports feeling okay ; he reports auditory hallucinations off and on throughout the day. Denies HI/VH. Passive SI with no plan. Pt reports he wants to be discharged to a halfway in [place]; social work aware. Labs ordered. 02/11 keep same treatment. 02/12 the patient looks more confused than usual, I am ordering new blood work for tomorrow morning. Ammonia level, comprehensive metabolic panel and CBC with differential 02/13: refused bloodwork. looking delirious this morning, a bit unsteady on the feet and fecal incontinence. hospitalist consult done, pt amenable to labs now. will check head CT, UA, UDS, and various serum labs. decrease paxil and seroquel by half to minimize anti-histaminergic and cholinergic medications. 02/14: Active on unit. Guarded. Pt reports feeling fine ; presents more organized today. Pt stated, I don't know why I was confused. I feel okay right now . Pt was seen by hospitalist; please see note. BMP to be drawn tomorrow. Pt reported difficulty urinating; bladder scan showed 198mL; waiting for UA results. Pt continues to report loose stools despite being given Imodium; GI consult placed d/t loose stool for 4 days/hx of colostomy. 02/15: Guarded. Attending some groups. Pt reports feeling okay ; Confused at times. incontinent of urine x1 today. denies SI/HI/VH/AH. Neurology consult placed. Waiting on GI consult and BMP results. Patient educated on: diagnosis and medication risk/benefits. 02/16: sleeping, not disturbed. neuro consult without recommendations. per GI consult: Check CBC, CMP, CRP, fecal calpro, GI panel, CDIff; Ideally would also get cross sectional imaging with contrast, but due to recent BERNARD will await renal function first. otherwise continue current mgmt. 02/17: Active on unit, social with select peers. More talkative today with T/W. Patient reports he spoke to his girlfriend who wants him to stay sober and get help. Pt stated, I want to stay clean. I plan to not use anymore . Pt more organized today. Reports some voices which decrease with Zyprexa. Pt was seen by hospitalist and given IV fluids; please see note. 02/18 continue tx. 02/19 continue tx. 02/20: Keeping to self. Pt reports feeling anxious ; he reports auditory hallucinations have decreased. denies SI/HI/VH. Continues to report loose stool; GI consult placed, awaiting follow up. 02/21: Calm, guarded.Keeping to self. Organized. Pt reports feeling anxious and depressed ; pt stated, I feel like I want to throw myself out the window . +SI. denies HI/VH. Continues to report auditory hallucinations which have decreased. DC Zyprexa; consider increasing Seroquel dose. Start: Abilify 5mg PO daily Creatinine 0.98 on 02/21. GI to order CT scan of abdomen. 02/22: Keeping to self. Pt continues to reports feeling anxious and depressed ; pt reports suicidal ideation with no plan. denies HI/VH. Continues to report auditory hallucinations. denies any side effects from Abilify. Will discuss RODRIGUES with patient. GI ordered CT scan of abdomen; pt agreed to scan initially then declined. Pt stated, my stomach feels fine. I don't have diarrhea anymore. I just want treatment for my anxiety and depression . 02/23: Pt continues to report feeling depressed ; pt reports suicidal ideation with no plan. denies HI/VH. Continues to report auditory hallucinations. Abilify increased to 10mg PO daily; discussed RODRIGUES, pt reports he will think about it . per nursing, pt slept 8 hours last night. 02/24: Pt continues to report feeling depressed ; pt reports suicidal ideation with no plan. denies HI/VH. Continues to report auditory hallucinations. Patient reports he is trying to find something to live for ; pt reports he is going to try to attend groups. Continue current tx plan. GI (Dr. Rayo) ordered CT scan of abdomen; pt declined again despite multiple attempts. 02/25: no changes. Encourage CT Reason for continued inpatient stay Substantial Risk for: harm to self and rapid decompensation Time Spent With Patient Time: Total time managing care of this patient today ____ minutes.
[2024-02-26] MEDS: methADONE HCl 20 MG/2 ML ORAL.CONC 60 MG PO (08:10)
[2024-02-26 08:12] VITALS: BP 128/78
[2024-02-26] MEDS: cloNIDine HCL 0.1 MG TABLET PO ×2 (08:12→20:26)
[2024-02-26] MEDS: buPROPion HCl XL 150 MG TAB.ER.24H PO (08:12)
[2024-02-26] MEDS: PARoxetine HCL 10 MG TABLET PO (08:12)
[2024-02-26] MEDS: ARIPiprazole 10 MG TABLET PO (08:13)
[2024-02-26] MEDS: hydrOXYzine HCL 25 MG TABLET PO (15:00)
[2024-02-26] MEDS: Acetaminophen 325 MG TABLET 650 MG PO (15:01)
[2024-02-26 20:25] VITALS: BP 98/55; PULSE 67; RESP 16; TEMP 36.6; O2SAT 98
[2024-02-26 20:26] VITALS: BP 98/55
[2024-02-26] MEDS: QUEtiapine Fumarate 200 MG TABLET PO (20:27)
[2024-02-27] MEDS: QUEtiapine Fumarate 100 MG TABLET PO (05:44)
[2024-02-27 08:00] VITALS: BP 139/89; PULSE 72; RESP 16; TEMP 36.9; O2SAT 99
[2024-02-27] MEDS: methADONE HCl 20 MG/2 ML ORAL.CONC 60 MG PO (08:02)
[2024-02-27] MEDS: PARoxetine HCL 10 MG TABLET PO (08:10)
[2024-02-27] MEDS: buPROPion HCl XL 150 MG TAB.ER.24H PO (08:11)
[2024-02-27] MEDS: cloNIDine HCL 0.1 MG TABLET PO ×2 (08:11→20:52)
[2024-02-27] MEDS: ARIPiprazole 10 MG TABLET PO (08:11)
--- NOTE | 2024-02-27 10:24 | HO.PSYCHPN ---
Subjective Subjective Date of Service: 02/27/24 Reason For Visit: crisis Interim History: Ongoing depresion and SI and AH.Sleep broken. Eating ok today. Much more engaged today. Wanted med changes. Agreed to stop seroquel. Start olanzapine 10mg bedtime and 2.5mg prn for AH and mood and anxiety. Got CT today. Medication Compliance: Yes Side effects from medications: No Review of Systems Acute medical concerns: No Review of Systems Review of Systems nothing acute Mental Status Exam Mental Status Exam Narrative: Pt is alert and oriented; behavior is cooperative and calm; dressed in casual attire; mood is described as depressed ; eye contact appropriate; Speech is normal rate, volume and not pressured; thought process is organized; Thought content is on tx; denies HI/VH. Pt reports auditory hallucinations. Pt reports suicidal ideation with no plan or intent Diagnostics Vital Signs (24Hr): Vital Signs - 24 hr 02/26/24 20:25 02/26/24 20:26 02/27/24 08:00 Temperature 97.8 F 98.4 F Pulse Rate 67 72 Respiratory Rate 16 16 Blood Pressure 98/55 L 98/55 L 139/89 Pulse Oximetry 98 99 Oxygen Delivery Method Room Air Room Air BMI result Body Mass Index 24.2 Labs 02/18/24 12:01 02/22/24 12:10 Imaging Radiology Impressions: ITS Impressions Chest X-Ray 02/04/24 08:52 IMPRESSION: No acute pulmonary disease. Few streaky linear right lung base opacities are favored to represent atelectasis. Electronically signed by: Kory Jernigan MD 02/04/2024 11:26 AM EDT RP Head CT 02/14/24 13:49 IMPRESSION: No acute intracranial pathology. Electronically signed by: Pascale Robb MD 02/14/2024 08:02 PM EDT RP Medications Medications Current Medications Acetaminophen (Acetaminophen 325 Mg Tablet) 650 mg PO Q6H PRN PRN Reason: Headache/Pain Mild Scale (1-3) Last Admin: 02/26/24 15:01 Dose: 650 mg Al Hydroxide/Mg Hydroxide (Magnesium Hydrox/Alum Hydrox 30 Ml Oral.Susp) 30 ml PO Q6H PRN PRN Reason: Heartburn/Nausea Aripiprazole (Aripiprazole 10 Mg Tablet) 10 mg PO DAILY [facility] Last Admin: 02/27/24 08:11 Dose: 10 mg Bupropion HCl (Bupropion Hcl Xl 150 Mg Tab.Er.24h) 150 mg PO DAILY [facility] Last Admin: 02/27/24 08:11 Dose: 150 mg Clonidine HCl (Clonidine Hcl 0.1 Mg Tablet) 0.1 mg PO BID [facility]; Protocol Last Admin: 02/27/24 08:11 Dose: 0.1 mg Hydroxyzine HCl (Hydroxyzine Hcl 25 Mg Tablet) 25 mg PO Q6H PRN PRN Reason: Anxiety Last Admin: 02/26/24 15:00 Dose: 25 mg Loperamide HCl (Loperamide Hcl 2 Mg Capsule) 4 mg PO Q6H PRN PRN Reason: Loose Stool Last Admin: 02/23/24 15:49 Dose: 4 mg Magnesium Hydroxide (Milk Of Magnesia 30 Ml Oral.Susp) 30 ml PO DAILY PRN PRN Reason: Constipation Methadone HCl (Methadone Hcl 20 Mg/2 Ml Oral.Conc) 60 mg PO DAILY@0800 [facility] Last Admin: 02/27/24 08:02 Dose: 60 mg Nicotine Polacrilex (Nicotine Polacrilex 2 Mg Gum) 4 mg BUCCAL Q2H PRN PRN Reason: Nicotine Cravings Ondansetron HCl (Ondansetron Odt 8 Mg Tab.Rapdis) 8 mg TRANSLINGU Q12H PRN PRN Reason: Nausea and Vomiting Last Admin: 02/17/24 16:00 Dose: 8 mg Paroxetine HCl (Paroxetine Hcl 10 Mg Tablet) 10 mg PO DAILY [facility] Last Admin: 02/27/24 08:10 Dose: 10 mg Psyllium Hydrophilic Mucilloid (Psyllium Seed 3.7 Gm Packet) 3.7 gm PO BEDTIME [facility] Last Admin: 02/26/24 20:28 Dose: Not Given Quetiapine Fumarate (Quetiapine Fumarate 200 Mg Tablet) 200 mg PO BEDTIME [facility] Last Admin: 02/26/24 20:27 Dose: 200 mg Quetiapine Fumarate (Quetiapine Fumarate 100 Mg Tablet) 100 mg PO BID PRN PRN Reason: anxiety/agitation Last Admin: 02/27/24 05:44 Dose: 100 mg Trazodone HCl (Trazodone Hcl 50 Mg Tablet) 50 mg PO BEDTIME MRX1 PRN PRN Reason: Insomnia Last Admin: 02/22/24 21:05 Dose: 50 mg Allergies Allergies Allergy/AdvReac Type Severity Reaction Status Date / Time haloperidol [From Haldol] AdvReac see note Verified 02/21/24 15:28 Assessment & Plan Assessment & Plan (1) MDD (major depressive disorder), recurrent, severe, with psychosis: Status: Acute Code(s): F33.3 - Major depressive disorder, recurrent, severe with psychotic symptoms (2) Cocaine use disorder: Status: Acute Code(s): F14.10 - Cocaine abuse, uncomplicated (3) Opioid use disorder: Status: Acute Code(s): F11.90 - Opioid use, unspecified, uncomplicated (4) Homeless single person: Status: Acute Code(s): Z59.00 - Homelessness unspecified Plan Patient is a 49-year-old male with history of MDD, PTSD, opiate use disorder and cocaine use disorder who was brought in by ambulance from a hotel after a suicide attempt by overdose on multiple substances. Plan: CV 15 minute safety checks Review past medications Continue home medications Addiction medicine consult Build rapport Encourage groups Discharge planning 02/08: Laying in bed most of shift. Irritable. Guarded. Pt reports feeling anxious and depressed ; pt stated, I'm hearing voices telling me to kill myself. They told me to sniff all the bags of drugs. I felt like I had a devil and tony on my shoulders . Pt continues to report auditory hallucinations. He reports suicidal ideation with no plan. denies HI/VH. Pt reports he would like to go to respite after discharge. pt c/o of withdrawal symptoms; seen by addiction medicine. 02/09:Irritable. Guarded. Pt reports feeling depressed ; pt continues to report auditory hallucinations. He reports suicidal ideation with no plan. Pt stated, I always feel suicidal . denies HI/VH. Pt reports he would prefer to be referred to a respite or chcf in [place] or [place]. Continue current tx plan. 02/10: Irritable. Guarded. Refusing to meet with T/W at first, despite multiple attempts. Pt stated, Oh my God. I don't want to talk. Just stay quiet . Observed going into room mates belongings; pt was redirected. Later in the morning, pt agreed to speak to T/W while pacing unit hallway. Pt reports feeling okay ; he reports auditory hallucinations off and on throughout the day. Denies HI/VH. Passive SI with no plan. Pt reports he wants to be discharged to a chcf in [place]; social work aware. Labs ordered. 02/11 keep same treatment. 02/12 the patient looks more confused than usual, I am ordering new blood work for tomorrow morning. Ammonia level, comprehensive metabolic panel and CBC with differential 02/13: refused bloodwork. looking delirious this morning, a bit unsteady on the feet and fecal incontinence. hospitalist consult done, pt amenable to labs now. will check head CT, UA, UDS, and various serum labs. decrease paxil and seroquel by half to minimize anti-histaminergic and cholinergic medications. 02/14: Active on unit. Guarded. Pt reports feeling fine ; presents more organized today. Pt stated, I don't know why I was confused. I feel okay right now . Pt was seen by hospitalist; please see note. BMP to be drawn tomorrow. Pt reported difficulty urinating; bladder scan showed 198mL; waiting for UA results. Pt continues to report loose stools despite being given Imodium; GI consult placed d/t loose stool for 4 days/hx of colostomy. 02/15: Guarded. Attending some groups. Pt reports feeling okay ; Confused at times. incontinent of urine x1 today. denies SI/HI/VH/AH. Neurology consult placed. Waiting on GI consult and BMP results. Patient educated on: diagnosis and medication risk/benefits. 02/16: sleeping, not disturbed. neuro consult without recommendations. per GI consult: Check CBC, CMP, CRP, fecal calpro, GI panel, CDIff; Ideally would also get cross sectional imaging with contrast, but due to recent BERNARD will await renal function first. otherwise continue current mgmt. 02/17: Active on unit, social with select peers. More talkative today with T/W. Patient reports he spoke to his girlfriend who wants him to stay sober and get help. Pt stated, I want to stay clean. I plan to not use anymore . Pt more organized today. Reports some voices which decrease with Zyprexa. Pt was seen by hospitalist and given IV fluids; please see note. 02/18 continue tx. 10/27 continue tx. 02/20: Keeping to self. Pt reports feeling anxious ; he reports auditory hallucinations have decreased. denies SI/HI/VH. Continues to report loose stool; GI consult placed, awaiting follow up. 02/21: Calm, guarded.Keeping to self. Organized. Pt reports feeling anxious and depressed ; pt stated, I feel like I want to throw myself out the window . +SI. denies HI/VH. Continues to report auditory hallucinations which have decreased. DC Zyprexa; consider increasing Seroquel dose. Start: Abilify 5mg PO daily Creatinine 0.98 on 02/21. GI to order CT scan of abdomen. 02/22: Keeping to self. Pt continues to reports feeling anxious and depressed ; pt reports suicidal ideation with no plan. denies HI/VH. Continues to report auditory hallucinations. denies any side effects from Abilify. Will discuss RODRIGUES with patient. GI ordered CT scan of abdomen; pt agreed to scan initially then declined. Pt stated, my stomach feels fine. I don't have diarrhea anymore. I just want treatment for my anxiety and depression . 02/23: Pt continues to report feeling depressed ; pt reports suicidal ideation with no plan. denies HI/VH. Continues to report auditory hallucinations. Abilify increased to 10mg PO daily; discussed RODRIGUES, pt reports he will think about it . per nursing, pt slept 8 hours last night. 02/24: Pt continues to report feeling depressed ; pt reports suicidal ideation with no plan. denies HI/VH. Continues to report auditory hallucinations. Patient reports he is trying to find something to live for ; pt reports he is going to try to attend groups. Continue current tx plan. GI (Dr. Rayo) ordered CT scan of abdomen; pt declined again despite multiple attempts. 02/25: no changes. Encourage CT 02/26: Stop seroquel. Start olanzapine 10mg bedtime and 2.5mg prn for AH and mood and anxiety Reason for continued inpatient stay Substantial Risk for: harm to self Time Spent With Patient Time: Total time managing care of this patient today ____ minutes.
[2024-02-27] MEDS: Acetaminophen 325 MG TABLET 650 MG PO ×2 (10:56→17:20)
[2024-02-27] MEDS: OLANZapine 2.5 MG TABLET PO (15:32)
[2024-02-27] MEDS: Ondansetron ODT 8 MG TAB.RAPDIS TRANSLINGU (15:35)
[2024-02-27 15:37] VITALS: BP 120/81
[2024-02-27] MEDS: Loperamide HCl 2 MG CAPSULE 4 MG PO (18:51)
[2024-02-27 20:50] VITALS: BP 100/61; PULSE 57; RESP 18; TEMP 36.5; O2SAT 95
[2024-02-27] MEDS: OLANZapine 10 MG TABLET PO (20:52)
[2024-02-27] MEDS: Psyllium seed 3.7 GM PACKET PO (20:52)
--- NOTE | 2024-02-27 21:12 | P.EN_ITS ---
Event Note Date of Service: 02/27/24 Event Note: Patient is a 49-year-old male admitted to [facility] psych unit with a complicated abdominal PMH significant for penetrating Crohn's disease s/p sigmoid resection for large bowel obstruction on 11/15, ileocecectomy after small-bowel perforation on 02/15 with nonhealing primary anastomosis, s/p diverting ileostomy with reversal in 12/2023. Hospitalist consult for abnormal CT scan. Patient was seen and evaluated by GI for abdominal pain and chronic diarrhea on 02/21/2024. CT of abdomen and pelvis ordered at that time to rule out active Crohn's disease, but patient had refused imaging until earlier today. CT of abd/pelvis came back with question of mild inflammatory change in the small bowel loops. Also found borderline mildly dilated small bowel loops in central abdomen that may reflect normal variation, mild ileus, but can not exclude partial small bowel obstruction. Attempted to see patient in his room this evening where he was seen sleeping comfortably in bed. Did not respond to initial attempts at waking him. Spoke to nursing who report patient continues to complain of chronic right-sided abdominal pain at site of previous ostomy. The patient with chronic nausea but no reported vomiting. Patient continues to experience episodes of diarrhea, reportedly telling the nurse he has only had 3 formed stools since ostomy reversal. Was given Imodium today for continued diarrhea. Nursing report indicates patient did not eat either breakfast or laura nch, but did eat 85% of dinner. Given patient's reported continued diarrhea, lack of vomiting, ability to tolerate p.o. intake this dinner, as well as not convincing CT scan evidence, there seems to be little indication patient is experiencing either an ileus or a partial SBO. Imaging, as well as mildly elevated CRP levels, does not point to an acute Crohn's flare. Currently there is no indication to bring patient to the medical floor for further management. Would suggest reaching out to GI to follow-up on imaging. Time Spent With Patient Time: Total time managing care of this patient today ____ minutes.
[2024-02-28 02:53] LABS: Calprotectin, Fecal 181 mcg/g
[2024-02-28] MEDS: methADONE HCl 20 MG/2 ML ORAL.CONC 60 MG PO (07:46)
[2024-02-28 08:09] VITALS: BP 128/73; PULSE 62; RESP 16; TEMP 36.9; O2SAT 94
[2024-02-28] MEDS: ARIPiprazole 10 MG TABLET PO (08:15)
[2024-02-28] MEDS: PARoxetine HCL 10 MG TABLET PO (08:15)
[2024-02-28] MEDS: cloNIDine HCL 0.1 MG TABLET PO (08:16)
[2024-02-28] MEDS: buPROPion HCl XL 150 MG TAB.ER.24H PO (08:16)
[2024-02-28] MEDS: Acetaminophen 325 MG TABLET 650 MG PO ×2 (10:02→19:11)
--- NOTE | 2024-02-28 10:18 | P.PNPSI_ITS ---
Subjective Subjective Date of Service: 02/28/24 Reason For Visit: crisis Subjective Notes: Conditional Voluntary Interim History: Patient continues to report depression and anxiety. pt stated, I'm having thoughts of wanting to jump out the window. I'm still hearing the voices. I want my medication increased . +SI with no plan. denies HI. Patient reports he is trying to think of things that would make me happy . Increase Abilify to 15mg PO daily and Wellbutrin to 300mg PO daily; Decrease Zyprexa to 5mg PO TID PRN Medication Compliance: Yes Side effects from medications: No Attending Groups: No Review of Systems Constitutional: Reports as per HPI Eyes: Reports as per HPI Reports as per HPI Cardiovascular: Reports as per HPI Respiratory: Reports as per HPI Genitourinary: Reports as per HPI Musculoskeletal: Reports as per HPI Skin/Breast: Reports as per HPI Reports as per HPI Psychiatric: Reports as per HPI Endocrine: Reports as per HPI Hematologic/Lymphatic: Reports as per HPI Allergic/Immunologic: Reports as per HPI Mental Status Exam Mental Status Exam Narrative: Pt is alert and oriented; behavior is cooperative and calm; dressed in casual attire; mood is described as depressed ; eye contact appropriate; Speech is normal rate, volume and not pressured; thought process is organized; Thought content is on tx; denies HI/VH. Pt reports auditory hallucinations. Pt reports suicidal ideation with no plan. Diagnostics Vital Signs (24Hr): Vital Signs - 24 hr 02/27/24 15:37 02/27/24 20:50 02/28/24 08:09 Temperature 97.7 F 98.4 F Pulse Rate 57 62 Respiratory Rate 18 16 Blood Pressure 120/81 100/61 128/73 Pulse Oximetry 95 94 Oxygen Delivery Method Room Air Room Air BMI result Body Mass Index 24.2 Labs 02/18/24 12:01 02/22/24 12:10 Labs: Laboratory Results - last 48 hr 02/18/24 17:45 Stool Calprotectin 181 H Imaging Radiology Impressions: ITS Impressions Chest X-Ray 02/04/24 08:52 IMPRESSION: No acute pulmonary disease. Few streaky linear right lung base opacities are favored to represent atelectasis. Electronically signed by: Kory Jernigan MD 02/04/2024 11:[address] 02/14/24 13:49 IMPRESSION: No acute intracranial pathology. Electronically signed by: Pascale Robb MD 02/14/2024 08:02 PM EDT RP Abdomen/Pelvis CT 02/27/24 10:26 IMPRESSION: 1. Postoperative changes in the colon. Question of mild inflammatory change in the small bowel loops in the midline upper pelvis abutting the area of surgery in the region of the remaining sigmoid colon. 2. Borderline mildly dilated small bowel loops in the central abdomen. This may reflect normal variation, mild ileus but cannot exclude partial small bowel obstruction. 3. IVC filter in place. 4. Degenerative disc disease at L5-S1 unchanged. Fleischner guidelines were followed. Electronically signed by: Som Romero MD 02/27/2024 12:31 PM EST RP Medications Medications Current Medications Acetaminophen (Acetaminophen 325 Mg Tablet) 650 mg PO Q6H PRN PRN Reason: Headache/Pain Mild Scale (1-3) Last Admin: 02/28/24 10:02 Dose: 650 mg Al Hydroxide/Mg Hydroxide (Magnesium Hydrox/Alum Hydrox 30 Ml Oral.Susp) 30 ml PO Q6H PRN PRN Reason: Heartburn/Nausea Aripiprazole (Aripiprazole 10 Mg Tablet) 10 mg PO DAILY [facility] Last Admin: 02/28/24 08:15 Dose: 10 mg Bupropion HCl (Bupropion Hcl Xl 150 Mg Tab.Er.24h) 150 mg PO DAILY [facility] Last Admin: 02/28/24 08:16 Dose: 150 mg Clonidine HCl (Clonidine Hcl 0.1 Mg Tablet) 0.1 mg PO BID [facility]; Protocol Last Admin: 02/28/24 08:16 Dose: 0.1 mg Hydroxyzine HCl (Hydroxyzine Hcl 25 Mg Tablet) 25 mg PO Q6H PRN PRN Reason: Anxiety Last Admin: 02/26/24 15:00 Dose: 25 mg Loperamide HCl (Loperamide Hcl 2 Mg Capsule) 4 mg PO Q6H PRN PRN Reason: Loose Stool Last Admin: 02/27/24 18:51 Dose: 4 mg Magnesium Hydroxide (Milk Of Magnesia 30 Ml Oral.Susp) 30 ml PO DAILY PRN PRN Reason: Constipation Methadone HCl (Methadone Hcl 20 Mg/2 Ml Oral.Conc) 60 mg PO DAILY@0800 [facility] Last Admin: 02/28/24 07:46 Dose: 60 mg Nicotine Polacrilex (Nicotine Polacrilex 2 Mg Gum) 4 mg BUCCAL Q2H PRN PRN Reason: Nicotine Cravings Olanzapine (Olanzapine 10 Mg Tablet) 10 mg PO BEDTIME [facility] Last Admin: 02/27/24 20:52 Dose: 10 mg Olanzapine (Olanzapine 2.5 Mg Tablet) 2.5 mg PO Q4H PRN PRN Reason: agitation or psychosis Last Admin: 02/27/24 15:32 Dose: 2.5 mg Ondansetron HCl (Ondansetron Odt 8 Mg Tab.Rapdis) 8 mg TRANSLINGU Q12H PRN PRN Reason: Nausea and Vomiting Last Admin: 02/27/24 15:35 Dose: 8 mg Paroxetine HCl (Paroxetine Hcl 10 Mg Tablet) 10 mg PO DAILY [facility] Last Admin: 02/28/24 08:15 Dose: 10 mg Psyllium Hydrophilic Mucilloid (Psyllium Seed 3.7 Gm Packet) 3.7 gm PO BEDTIME [facility] Last Admin: 02/27/24 20:52 Dose: 3.7 gm Trazodone HCl (Trazodone Hcl 50 Mg Tablet) 50 mg PO BEDTIME MRX1 PRN PRN Reason: Insomnia Last Admin: 02/22/24 21:05 Dose: 50 mg Allergies Allergies Allergy/AdvReac Type Severity Reaction Status Date / Time haloperidol [From Haldol] AdvReac see note Verified 02/21/24 15:28 Assessment & Plan Assessment & Plan (1) MDD (major depressive disorder), recurrent, severe, with psychosis: Status: Acute Code(s): F33.3 - Major depressive disorder, recurrent, severe with psychotic symptoms (2) Cocaine use disorder: Status: Acute Code(s): F14.10 - Cocaine abuse, uncomplicated (3) Opioid use disorder: Status: Acute Code(s): F11.90 - Opioid use, unspecified, uncomplicated (4) Homeless single person: Status: Acute Code(s): Z59.00 - Homelessness unspecified Plan Patient is a 49-year-old male with history of MDD, PTSD, opiate use disorder and cocaine use disorder who was brought in by ambulance from a hotel after a suicide attempt by overdose on multiple substances. Plan: CV 15 minute safety checks Review past medications Continue home medications Addiction medicine consult Build rapport Encourage groups Discharge planning 02/08: Laying in bed most of shift. Irritable. Guarded. Pt reports feeling anxious and depressed ; pt stated, I'm hearing voices telling me to kill myself. They told me to sniff all the bags of drugs. I felt like I had a devil and tony on my shoulders . Pt continues to report auditory hallucinations. He reports suicidal ideation with no plan. denies HI/VH. Pt reports he would like to go to respite after discharge. pt c/o of withdrawal symptoms; seen by addiction medicine. 02/09:Irritable. Guarded. Pt reports feeling depressed ; pt continues to report auditory hallucinations. He reports suicidal ideation with no plan. Pt stated, I always feel suicidal . denies HI/VH. Pt reports he would prefer to be referred to a respite or intermediate in [place] or [place]. Continue current tx plan. 02/10: Irritable. Guarded. Refusing to meet with T/W at first, despite multiple attempts. Pt stated, Oh my God. I don't want to talk. Just stay quiet . Observed going into room mates belongings; pt was redirected. Later in the morning, pt agreed to speak to T/W while pacing unit hallway. Pt reports feeling okay ; he reports auditory hallucinations off and on throughout the day. Denies HI/VH. Passive SI with no plan. Pt reports he wants to be discharged to a intermediate in [place]; social work aware. Labs ordered. 02/11 keep same treatment. 02/12 the patient looks more confused than usual, I am ordering new blood work for tomorrow morning. Ammonia level, comprehensive metabolic panel and CBC with differential 02/13: refused bloodwork. looking delirious this morning, a bit unsteady on the feet and fecal incontinence. hospitalist consult done, pt amenable to labs now. will check head CT, UA, UDS, and various serum labs. decrease paxil and seroquel by half to minimize anti-histaminergic and cholinergic medications. 02/14: Active on unit. Guarded. Pt reports feeling fine ; presents more organized today. Pt stated, I don't know why I was confused. I feel okay right now . Pt was seen by hospitalist; please see note. BMP to be drawn tomorrow. Pt reported difficulty urinating; bladder scan showed 198mL; waiting for UA results. Pt continues to report loose stools despite being given Imodium; GI consult placed d/t loose stool for 4 days/hx of colostomy. 02/15: Guarded. Attending some groups. Pt reports feeling okay ; Confused at times. incontinent of urine x1 today. denies SI/HI/VH/AH. Neurology consult placed. Waiting on GI consult and BMP results. Patient educated on: diagnosis and medication risk/benefits. 02/16: sleeping, not disturbed. neuro consult without recommendations. per GI consult: Check CBC, CMP, CRP, fecal calpro, GI panel, CDIff; Ideally would also get cross sectional imaging with contrast, but due to recent BERNARD will await renal function first. otherwise continue current mgmt. 02/17: Active on unit, social with select peers. More talkative today with T/W. Patient reports he spoke to his girlfriend who wants him to stay sober and get help. Pt stated, I want to stay clean. I plan to not use anymore . Pt more organized today. Reports some voices which decrease with Zyprexa. Pt was seen by hospitalist and given IV fluids; please see note. 02/18 continue tx. 02/19 continue tx. 02/20: Keeping to self. Pt reports feeling anxious ; he reports auditory hallucinations have decreased. denies SI/HI/VH. Continues to report loose stool; GI consult placed, awaiting follow up. 02/21: Calm, guarded.Keeping to self. Organized. Pt reports feeling anxious and depressed ; pt stated, I feel like I want to throw myself out the window . +SI. denies HI/VH. Continues to report auditory hallucinations which have decreased. DC Zyprexa; consider increasing Seroquel dose. Start: Abilify 5mg PO daily Creatinine 0.98 on 02/21. GI to order CT scan of abdomen. 02/22: Keeping to self. Pt continues to reports feeling anxious and depressed ; pt reports suicidal ideation with no plan. denies HI/VH. Continues to report auditory hallucinations. denies any side effects from Abilify. Will discuss RODRIGUES with patient. GI ordered CT scan of abdomen; pt agreed to scan initially then declined. Pt stated, my stomach feels fine. I don't have diarrhea anymore. I just want treatment for my anxiety and depression . 02/23: Pt continues to report feeling depressed ; pt reports suicidal ideation with no plan. denies HI/VH. Continues to report auditory hallucinations. Abilify increased to 10mg PO daily; discussed RODRIGUES, pt reports he will think about it . per nursing, pt slept 8 hours last night. 02/24: Pt continues to report feeling depressed ; pt reports suicidal ideation with no plan. denies HI/VH. Continues to report auditory hallucinations. Patient reports he is trying to find something to live for ; pt reports he is going to try to attend groups. Continue current tx plan. GI (Dr. Rayo) ordered CT scan of abdomen; pt declined again despite multiple attempts. 02/25: no changes. Encourage CT 02/26: Stop seroquel. Start olanzapine 10mg bedtime and 2.5mg prn for AH and mood and anxiety 02/27: Patient continues to report depression and anxiety. pt stated, I'm having thoughts of wanting to jump out the window. I'm still hearing the voices. I want my medication increased . +SI with no plan. denies HI. Patient reports he is trying to think of things that would make me happy . Increase Abilify to 15mg PO daily and Wellbutrin to 300mg PO daily; Decrease Zyprexa to 5mg PO TID PRN Patient educated on: diagnosis, medication risk/benefits and therapeutic strategies Reason for continued inpatient stay Substantial Risk for: harm to self and med/psych decompensation Time Spent With Patient Time: Total time managing care of this patient today _20___ minutes.
--- NOTE | 2024-02-28 11:00 | P.PNGI_ITS ---
Subjective Subjective Date of Service: 02/28/24 Interval History: Pt seen and evaluated at bedside. Reports bilateral lower quadrant pain and 3-4 loose BMs per day. Appetite is good. No N/V. No fevers. No blood in BM. Labs and CT reviewed. Critical Care Time (minutes): 0 Physical Exam 2 Vital Signs: Vital Signs: Last Vital Signs Temp 98.4 F 02/28/24 08:09 Pulse 62 02/28/24 08:09 Resp 16 02/28/24 08:09 BP 128/73 02/28/24 08:09 Pulse Ox 94 02/28/24 08:09 O2 Del Method Room Air 02/28/24 08:09 BMI result Body Mass Index 24.2 No apparent distress Nonicteric Abdomen with multiple surgical scars Mild tenderness to palpation in LLQ Objective Data Labs 02/18/24 12:01 02/22/24 12:10 Labs: Laboratory Results - last 24 hr 02/18/24 17:45 Stool Calprotectin [address] scan - abdomen: Radiologist's impression: There are postoperative changes in the distal/sigmoid colon which is new compared to prior. I suspect the previously noted abnormal sigmoid colon has likely been resected along with additional portions of the colon. There are postsurgical changes along the distal lateral abdominal wall likely related to the suspected surgery. The previously noted thickened and narrowed sigmoid colon loops are no longer demonstrated. However, there is a question of slight stranding in the small bowel loops abutting the area of colonic surgery in the midline upper pelvis seen on axial image 66 series 3. There is borderline mildly dilated small bowel loops containing air and fluid in the central abdomen. Procedures Date of Service Date of Service: 02/28/24 Progress Note: A&P Assessment and plan (1) Chronic diarrhea: Status: Acute (2) Crohn's disease: Status: Acute Assessment and Plan: Overall assessment consistent with mild flare primarily in small bowel + sigmoid based on CT findings. Fecal calpro >100. Plan: - Start entocort 9mg once daily - Anticipate clinical response over the next few days - If no significant clinical improvement, may need further eval with CTE + flex sig Time Spent With Patient Time: Total time managing care of this patient today ____ minutes. Quality Stroke Does the patient have a stroke diagnosis?: No VTE Prior VTE?: No VTE Risk Level:: Medical - low VTE Device Contraindication: Treatment Not Indicated VTE Drug Contraindication: Treatment Not Indicated
[2024-02-28] MEDS: hydrOXYzine HCL 25 MG TABLET PO (15:47)
[2024-02-28] MEDS: OLANZapine 2.5 MG TABLET PO (15:47)
[2024-02-28] MEDS: Loperamide HCl 2 MG CAPSULE 4 MG PO (19:11)
[2024-02-28 20:00] VITALS: BP 92/51; PULSE 58; RESP 16; TEMP 36.9; O2SAT 95
[2024-02-29] MEDS: Acetaminophen 325 MG TABLET 650 MG PO (05:51)
[2024-02-29 08:00] VITALS: BP 124/76; PULSE 54; RESP 18; TEMP 36.9; O2SAT 96
[2024-02-29] MEDS: methADONE HCl 20 MG/2 ML ORAL.CONC 60 MG PO (08:13)
[2024-02-29] MEDS: cloNIDine HCL 0.1 MG TABLET PO ×2 (08:28→21:13)
[2024-02-29] MEDS: PARoxetine HCL 10 MG TABLET PO (08:28)
[2024-02-29] MEDS: ARIPiprazole 15 MG TABLET PO (08:28)
[2024-02-29] MEDS: buPROPion HCl XL 300 MG TAB.ER.24H PO (08:28)
--- NOTE | 2024-02-29 08:42 | P.PNPSI_ITS ---
Subjective Subjective Date of Service: 02/29/24 Reason For Visit: crisis Subjective Notes: Conditional Voluntary Interim History: Patient reports feeling similar to yesterday; he is hopeful of medications being beneficial. Pt stated, I'm waiting to see if the medication will help me . Less suicidal thoughts. +AH. denies HI/VH. Medication Compliance: Yes Side effects from medications: No Attending Groups: No Review of Systems Constitutional: Reports as per HPI Eyes: Reports as per HPI Reports as per HPI Cardiovascular: Reports as per HPI Respiratory: Reports as per HPI Genitourinary: Reports as per HPI Musculoskeletal: Reports as per HPI Skin/Breast: Reports as per HPI Reports as per HPI Psychiatric: Reports as per HPI Endocrine: Reports as per HPI Hematologic/Lymphatic: Reports as per HPI Allergic/Immunologic: Reports as per HPI Mental Status Exam Mental Status Exam Narrative: Pt is alert and oriented; behavior is cooperative and calm; dressed in casual attire; mood is described as depressed ; eye contact appropriate; Speech is normal rate, volume and not pressured; thought process is organized; Thought content is on tx; denies HI/VH. Pt reports auditory hallucinations. Pt reports suicidal ideation with no plan. Diagnostics Vital Signs (24Hr): Vital Signs - 24 hr 02/28/24 20:00 Temperature 98.5 F Pulse Rate 58 Respiratory Rate 16 Blood Pressure 92/51 L Pulse Oximetry 95 Oxygen Delivery Method Room Air BMI result Body Mass Index 24.2 Labs 02/18/24 12:01 02/22/24 12:10 Labs: Laboratory Results - last 48 hr 02/18/24 17:45 Stool Calprotectin 181 H Imaging Radiology Impressions: ITS Impressions Chest X-Ray 02/04/24 08:52 IMPRESSION: No acute pulmonary disease. Few streaky linear right lung base opacities are favored to represent atelectasis. Electronically signed by: Kory Jernigan MD 02/04/2024 11:26 AM EDT RP Head CT 02/14/24 13:49 IMPRESSION: No acute intracranial pathology. Electronically signed by: Pascale Robb MD 02/14/2024 08:02 PM EDT RP Abdomen/Pelvis CT 02/27/24 10:26 IMPRESSION: 1. Postoperative changes in the colon. Question of mild inflammatory change in the small bowel loops in the midline upper pelvis abutting the area of surgery in the region of the remaining sigmoid colon. 2. Borderline mildly dilated small bowel loops in the central abdomen. This may reflect normal variation, mild ileus but cannot exclude partial small bowel obstruction. 3. IVC filter in place. 4. Degenerative disc disease at L5-S1 unchanged. Fleischner guidelines were followed. Electronically signed by: Som Romero MD 02/27/2024 12:31 PM [facility] Medications Medications Current Medications Acetaminophen (Acetaminophen 325 Mg Tablet) 650 mg PO Q6H PRN PRN Reason: Headache/Pain Mild Scale (1-3) Last Admin: 02/29/24 05:51 Dose: 650 mg Al Hydroxide/Mg Hydroxide (Magnesium Hydrox/Alum Hydrox 30 Ml Oral.Susp) 30 ml PO Q6H PRN PRN Reason: Heartburn/Nausea Aripiprazole (Aripiprazole 15 Mg Tablet) 15 mg PO DAILY [facility] Last Admin: 02/29/24 08:28 Dose: 15 mg Bupropion HCl (Bupropion Hcl Xl 300 Mg Tab.Er.24h) 300 mg PO DAILY [facility] Last Admin: 02/29/24 08:28 Dose: 300 mg Clonidine HCl (Clonidine Hcl 0.1 Mg Tablet) 0.1 mg PO BID [facility]; Protocol Last Admin: 02/29/24 08:28 Dose: 0.1 mg Hydroxyzine HCl (Hydroxyzine Hcl 25 Mg Tablet) 25 mg PO Q6H PRN PRN Reason: Anxiety Last Admin: 02/28/24 15:47 Dose: 25 mg Loperamide HCl (Loperamide Hcl 2 Mg Capsule) 4 mg PO Q6H PRN PRN Reason: Loose Stool Last Admin: 02/28/24 19:11 Dose: 4 mg Magnesium Hydroxide (Milk Of Magnesia 30 Ml Oral.Susp) 30 ml PO DAILY PRN PRN Reason: Constipation Methadone HCl (Methadone Hcl 20 Mg/2 Ml Oral.Conc) 60 mg PO DAILY@0800 [facility] Last Admin: 02/29/24 08:13 Dose: 60 mg Nicotine Polacrilex (Nicotine Polacrilex 2 Mg Gum) 4 mg BUCCAL Q2H PRN PRN Reason: Nicotine Cravings Non-Formulary Medication (Budesonide) 9 mg PO DAILY [facility] Olanzapine (Olanzapine 5 Mg Tablet) 5 mg PO TID PRN PRN Reason: agitation or psychosis Ondansetron HCl (Ondansetron Odt 8 Mg Tab.Rapdis) 8 mg TRANSLINGU Q12H PRN PRN Reason: Nausea and Vomiting Last Admin: 02/27/24 15:35 Dose: 8 mg Paroxetine HCl (Paroxetine Hcl 10 Mg Tablet) 10 mg PO DAILY NEIDA Last Admin: 02/29/24 08:28 Dose: 10 mg Psyllium Hydrophilic Mucilloid (Psyllium Seed 3.7 Gm Packet) 3.7 gm PO BEDTIME NEIDA Last Admin: 02/28/24 22:17 Dose: Not Given Trazodone HCl (Trazodone Hcl 50 Mg Tablet) 50 mg PO BEDTIME MRX1 PRN PRN Reason: Insomnia Last Admin: 02/22/24 21:05 Dose: 50 mg Allergies Allergies Allergy/AdvReac Type Severity Reaction Status Date / Time haloperidol [From Haldol] AdvReac see note Verified 02/21/24 15:28 Assessment & Plan Assessment & Plan (1) MDD (major depressive disorder), recurrent, severe, with psychosis: Status: Acute Code(s): F33.3 - Major depressive disorder, recurrent, severe with psychotic symptoms (2) Cocaine use disorder: Status: Acute Code(s): F14.10 - Cocaine abuse, uncomplicated (3) Opioid use disorder: Status: Acute Code(s): F11.90 - Opioid use, unspecified, uncomplicated (4) Homeless single person: Status: Acute Code(s): Z59.00 - Homelessness unspecified Plan Patient is a 49-year-old male with history of MDD, PTSD, opiate use disorder and cocaine use disorder who was brought in by ambulance from a hotel after a suicide attempt by overdose on multiple substances. Plan: CV 15 minute safety checks Review past medications Continue home medications Addiction medicine consult Build rapport Encourage groups Discharge planning 02/08: Laying in bed most of shift. Irritable. Guarded. Pt reports feeling anxious and depressed ; pt stated, I'm hearing voices telling me to kill myself. They told me to sniff all the bags of drugs. I felt like I had a devil and tony on my shoulders . Pt continues to report auditory hallucinations. He reports suicidal ideation with no plan. denies HI/VH. Pt reports he would like to go to respite after discharge. pt c/o of withdrawal symptoms; seen by addiction medicine. 02/09:Irritable. Guarded. Pt reports feeling depressed ; pt continues to report auditory hallucinations. He reports suicidal ideation with no plan. Pt stated, I always feel suicidal . denies HI/VH. Pt reports he would prefer to be referred to a respite or usp in [place] or [place]. Continue current tx plan. 02/10: Irritable. Guarded. Refusing to meet with T/W at first, despite multiple attempts. Pt stated, Oh my God. I don't want to talk. Just stay quiet . Observed going into room mates belongings; pt was redirected. Later in the morning, pt agreed to speak to T/W while pacing unit hallway. Pt reports feeling okay ; he reports auditory hallucinations off and on throughout the day. Denies HI/VH. Passive SI with no plan. Pt reports he wants to be discharged to a usp in [place]; social work aware. Labs ordered. 02/11 keep same treatment. 02/12 the patient looks more confused than usual, I am ordering new blood work for tomorrow morning. Ammonia level, comprehensive metabolic panel and CBC with differential 02/13: refused bloodwork. looking delirious this morning, a bit unsteady on the feet and fecal incontinence. hospitalist consult done, pt amenable to labs now. will check head CT, UA, UDS, and various serum labs. decrease paxil and seroquel by half to minimize anti-histaminergic and cholinergic medications. 02/14: Active on unit. Guarded. Pt reports feeling fine ; presents more organized today. Pt stated, I don't know why I was confused. I feel okay right now . Pt was seen by hospitalist; please see note. BMP to be drawn tomorrow. Pt reported difficulty urinating; bladder scan showed 198mL; waiting for UA results. Pt continues to report loose stools despite being given Imodium; GI consult placed d/t loose stool for 4 days/hx of colostomy. 02/15: Guarded. Attending some groups. Pt reports feeling okay ; Confused at times. incontinent of urine x1 today. denies SI/HI/VH/AH. Neurology consult placed. Waiting on GI consult and BMP results. Patient educated on: diagnosis and medication risk/benefits. 02/16: sleeping, not disturbed. neuro consult without recommendations. per GI consult: Check CBC, CMP, CRP, fecal calpro, GI panel, CDIff; Ideally would also get cross sectional imaging with contrast, but due to recent BERNARD will await renal function first. otherwise continue current mgmt. 02/17: Active on unit, social with select peers. More talkative today with T/W. Patient reports he spoke to his girlfriend who wants him to stay sober and get help. Pt stated, I want to stay clean. I plan to not use anymore . Pt more organized today. Reports some voices which decrease with Zyprexa. Pt was seen by hospitalist and given IV fluids; please see note. 02/18 continue tx. 02/19 continue tx. 02/20: Keeping to self. Pt reports feeling anxious ; he reports auditory hallucinations have decreased. denies SI/HI/VH. Continues to report loose stool; GI consult placed, awaiting follow up. 02/21: Calm, guarded.Keeping to self. Organized. Pt reports feeling anxious and depressed ; pt stated, I feel like I want to throw myself out the window . +SI. denies HI/VH. Continues to report auditory hallucinations which have decreased. DC Zyprexa; consider increasing Seroquel dose. Start: Abilify 5mg PO daily Creatinine 0.98 on 02/21. GI to order CT scan of abdomen. 02/22: Keeping to self. Pt continues to reports feeling anxious and depressed ; pt reports suicidal ideation with no plan. denies HI/VH. Continues to report auditory hallucinations. denies any side effects from Abilify. Will discuss RODRIGUES with patient. GI ordered CT scan of abdomen; pt agreed to scan initially then declined. Pt stated, my stomach feels fine. I don't have diarrhea anymore. I just want treatment for my anxiety and depression . 02/23: Pt continues to report feeling depressed ; pt reports suicidal ideation with no plan. denies HI/VH. Continues to report auditory hallucinations. Abilify increased to 10mg PO daily; discussed RODRIGUES, pt reports he will think about it . per nursing, pt slept 8 hours last night. 02/24: Pt continues to report feeling depressed ; pt reports suicidal ideation with no plan. denies HI/VH. Continues to report auditory hallucinations. Patient reports he is trying to find something to live for ; pt reports he is going to try to attend groups. Continue current tx plan. GI (Dr. Rayo) ordered CT scan of abdomen; pt declined again despite multiple attempts. 02/25: no changes. Encourage CT 02/26: Stop seroquel. Start olanzapine 10mg bedtime and 2.5mg prn for AH and mood and anxiety 02/27: Patient continues to report depression and anxiety. pt stated, I'm having thoughts of wanting to jump out the window. I'm still hearing the voices. I want my medication increased . +SI with no plan. denies HI. Patient reports he is trying to think of things that would make me happy . Increase Abilify to 15mg PO daily and Wellbutrin to 300mg PO daily; Decrease Zyprexa to 5mg PO TID PRN 02/28: Patient reports feeling similar to yesterday; he is hopeful of medications being beneficial. Pt stated, I'm waiting to see if the medication will help me . Less suicidal thoughts. +AH. denies HI/VH. Continue current tx plan. Patient educated on: diagnosis and medication risk/benefits Reason for continued inpatient stay Substantial Risk for: harm to self and med/psych decompensation Time Spent With Patient Time: Total time managing care of this patient today _20___ minutes.
[2024-02-29] MEDS: BUDESONIDE 3 MG 9 EACH PO (10:09)
[2024-02-29] MEDS: traMADoL HCL 50 MG TABLET 25 MG PO ×2 (17:00→23:22)
[2024-02-29] MEDS: traZODone HCL 50 MG TABLET PO ×2 (21:13→23:22)
[2024-03-01] MEDS: traMADoL HCL 50 MG TABLET 25 MG PO ×3 (07:49→21:06)
[2024-03-01] MEDS: methADONE HCl 20 MG/2 ML ORAL.CONC 60 MG PO (07:49)
[2024-03-01 08:00] VITALS: BP 119/70; PULSE 64; RESP 15; TEMP 36.6; O2SAT 98
[2024-03-01] MEDS: BUDESONIDE 3 MG 9 EACH PO (08:33)
[2024-03-01] MEDS: buPROPion HCl XL 300 MG TAB.ER.24H PO (08:34)
[2024-03-01] MEDS: cloNIDine HCL 0.1 MG TABLET PO ×2 (08:34→21:07)
[2024-03-01] MEDS: ARIPiprazole 15 MG TABLET PO (08:34)
[2024-03-01] MEDS: PARoxetine HCL 10 MG TABLET PO (08:34)
--- NOTE | 2024-03-01 09:13 | P.PNPSI_ITS ---
Subjective Subjective Date of Service: 03/01/24 Reason For Visit: crisis Subjective Notes: Conditional Voluntary Interim History: Active on unit. future oriented today. Patient reports anxiety regarding his stomach issues ; pt stated, I'm having a lot of anxiety about my stomach. I'm just praying . Pt reports he plans on staying at a residential and his girlfriends home to save money for housing. Pt reports he plans on staying sober by going to meetings and praying to God . Pt would like to be set up with [place] methadone clinic since his girlfriend lives in [place]; social work aware. Medication Compliance: Yes Side effects from medications: No Review of Systems Constitutional: Reports as per HPI Eyes: Reports as per HPI Reports as per HPI Cardiovascular: Reports as per HPI Respiratory: Reports as per HPI Gastrointestinal: Reports as per HPI Genitourinary: Reports as per HPI Musculoskeletal: Reports as per HPI Skin/Breast: Reports as per HPI Reports as per HPI Psychiatric: Reports as per HPI Endocrine: Reports as per HPI Hematologic/Lymphatic: Reports as per HPI Allergic/Immunologic: Reports as per HPI Mental Status Exam Mental Status Exam Narrative: Pt is alert and oriented; behavior is cooperative and calm; dressed in casual attire; mood is described as a lot of anxiety ; eye contact appropriate; Speech is normal rate, volume and not pressured; thought process is organized; Thought content is on tx; future oriented today; denies HI/VH/AH. Pt reports passive suicidal ideation with no plan. Diagnostics Vital Signs (24Hr): Vital Signs - 24 hr 03/01/24 08:00 Temperature 97.8 F Pulse Rate 64 Respiratory Rate 15 Blood Pressure 119/70 Pulse Oximetry 98 Oxygen Delivery Method Room Air BMI result Body Mass Index 24.2 Labs 02/18/24 12:01 02/22/24 12:10 Imaging Radiology Impressions: ITS Impressions Chest X-Ray 02/04/24 08:52 IMPRESSION: No acute pulmonary disease. Few streaky linear right lung base opacities are favored to represent atelectasis. Electronically signed by: Kory Jernigan MD 02/04/2024 11:[address] 02/14/24 13:49 IMPRESSION: No acute intracranial pathology. Electronically signed by: Pascale Robb MD 02/14/2024 08:02 PM EDT RP Abdomen/Pelvis CT 02/27/24 10:26 IMPRESSION: 1. Postoperative changes in the colon. Question of mild inflammatory change in the small bowel loops in the midline upper pelvis abutting the area of surgery in the region of the remaining sigmoid colon. 2. Borderline mildly dilated small bowel loops in the central abdomen. This may reflect normal variation, mild ileus but cannot exclude partial small bowel obstruction. 3. IVC filter in place. 4. Degenerative disc disease at L5-S1 unchanged. Fleischner guidelines were followed. Electronically signed by: Som Romero MD 02/27/2024 12:31 PM EST RP Medications Medications Current Medications Acetaminophen (Acetaminophen 325 Mg Tablet) 650 mg PO Q6H PRN PRN Reason: Headache/Pain Mild Scale (1-3) Last Admin: 02/29/24 05:51 Dose: 650 mg Al Hydroxide/Mg Hydroxide (Magnesium Hydrox/Alum Hydrox 30 Ml Oral.Susp) 30 ml PO Q6H PRN PRN Reason: Heartburn/Nausea Aripiprazole (Aripiprazole 15 Mg Tablet) 15 mg PO DAILY [facility] Last Admin: 03/01/24 08:34 Dose: 15 mg Bupropion HCl (Bupropion Hcl Xl 300 Mg Tab.Er.24h) 300 mg PO DAILY [facility] Last Admin: 03/01/24 08:34 Dose: 300 mg Clonidine HCl (Clonidine Hcl 0.1 Mg Tablet) 0.1 mg PO BID [facility]; Protocol Last Admin: 03/01/24 08:34 Dose: 0.1 mg Hydroxyzine HCl (Hydroxyzine Hcl 25 Mg Tablet) 25 mg PO Q6H PRN PRN Reason: Anxiety Last Admin: 02/28/24 15:47 Dose: 25 mg Loperamide HCl (Loperamide Hcl 2 Mg Capsule) 4 mg PO Q6H PRN PRN Reason: Loose Stool Last Admin: 02/28/24 19:11 Dose: 4 mg Magnesium Hydroxide (Milk Of Magnesia 30 Ml Oral.Susp) 30 ml PO DAILY PRN PRN Reason: Constipation Methadone HCl (Methadone Hcl 20 Mg/2 Ml Oral.Conc) 60 mg PO DAILY@0800 [facility] Last Admin: 03/01/24 07:49 Dose: 60 mg Nicotine Polacrilex (Nicotine Polacrilex 2 Mg Gum) 4 mg BUCCAL Q2H PRN PRN Reason: Nicotine Cravings [facility] ( Budesonide 3mg Er Cap Dr) 9 mg PO DAILY [facility] Last Admin: 03/01/24 08:33 Dose: 9 mg Olanzapine (Olanzapine 5 Mg Tablet) 5 mg PO TID PRN PRN Reason: agitation or psychosis Ondansetron HCl (Ondansetron Odt 8 Mg Tab.Rapdis) 8 mg TRANSLINGU Q12H PRN PRN Reason: Nausea and Vomiting Last Admin: 02/27/24 15:35 Dose: 8 mg Paroxetine HCl (Paroxetine Hcl 10 Mg Tablet) 10 mg PO DAILY [facility] Last Admin: 03/01/24 08:34 Dose: 10 mg Psyllium Hydrophilic Mucilloid (Psyllium Seed 3.7 Gm Packet) 3.7 gm PO BEDTIME [facility] Last Admin: 02/29/24 21:14 Dose: Not Given Tramadol HCl (Tramadol Hcl 50 Mg Tablet) 25 mg PO Q6H PRN PRN Reason: Pain, Severe (Pain Scale 7-10) Last Admin: 03/01/24 07:49 Dose: 25 mg Trazodone HCl (Trazodone Hcl 50 Mg Tablet) 50 mg PO BEDTIME MRX1 PRN PRN Reason: Insomnia Last Admin: 02/29/24 23:22 Dose: 50 mg Allergies Allergies Allergy/AdvReac Type Severity Reaction Status Date / Time haloperidol [From Haldol] AdvReac see note Verified 02/21/24 15:28 Assessment & Plan Assessment & Plan (1) MDD (major depressive disorder), recurrent, severe, with psychosis: Status: Acute Code(s): F33.3 - Major depressive disorder, recurrent, severe with psychotic symptoms (2) Cocaine use disorder: Status: Acute Code(s): F14.10 - Cocaine abuse, uncomplicated (3) Opioid use disorder: Status: Acute Code(s): F11.90 - Opioid use, unspecified, uncomplicated (4) Homeless single person: Status: Acute Code(s): Z59.00 - Homelessness unspecified Plan Patient is a 49-year-old male with history of MDD, PTSD, opiate use disorder and cocaine use disorder who was brought in by ambulance from a hotel after a suicide attempt by overdose on multiple substances. Plan: CV 15 minute safety checks Review past medications Continue home medications Addiction medicine consult Build rapport Encourage groups Discharge planning 02/08: Laying in bed most of shift. Irritable. Guarded. Pt reports feeling anxious and depressed ; pt stated, I'm hearing voices telling me to kill myself. They told me to sniff all the bags of drugs. I felt like I had a devil and tony on my shoulders . Pt continues to report auditory hallucinations. He reports suicidal ideation with no plan. denies HI/VH. Pt reports he would like to go to respite after discharge. pt c/o of withdrawal symptoms; seen by addiction medicine. 02/09:Irritable. Guarded. Pt reports feeling depressed ; pt continues to report auditory hallucinations. He reports suicidal ideation with no plan. Pt stated, I always feel suicidal . denies HI/VH. Pt reports he would prefer to be referred to a respite or residential in [place] or [place]. Continue current tx plan. 02/10: Irritable. Guarded. Refusing to meet with T/W at first, despite multiple attempts. Pt stated, Oh my God. I don't want to talk. Just stay quiet . Observed going into room mates belongings; pt was redirected. Later in the morning, pt agreed to speak to T/W while pacing unit hallway. Pt reports feeling okay ; he reports auditory hallucinations off and on throughout the day. Denies HI/VH. Passive SI with no plan. Pt reports he wants to be discharged to a residential in [place]; social work aware. Labs ordered. 02/11 keep same treatment. 02/12 the patient looks more confused than usual, I am ordering new blood work for tomorrow morning. Ammonia level, comprehensive metabolic panel and CBC with differential 02/13: refused bloodwork. looking delirious this morning, a bit unsteady on the feet and fecal incontinence. hospitalist consult done, pt amenable to labs now. will check head CT, UA, UDS, and various serum labs. decrease paxil and seroquel by half to minimize anti-histaminergic and cholinergic medications. 02/14: Active on unit. Guarded. Pt reports feeling fine ; presents more organized today. Pt stated, I don't know why I was confused. I feel okay right now . Pt was seen by hospitalist; please see note. BMP to be drawn tomorrow. Pt reported difficulty urinating; bladder scan showed 198mL; waiting for UA results. Pt continues to report loose stools despite being given Imodium; GI consult placed d/t loose stool for 4 days/hx of colostomy. 02/15: Guarded. Attending some groups. Pt reports feeling okay ; Confused at times. incontinent of urine x1 today. denies SI/HI/VH/AH. Neurology consult placed. Waiting on GI consult and BMP results. Patient educated on: diagnosis and medication risk/benefits. 02/16: sleeping, not disturbed. neuro consult without recommendations. per GI consult: Check CBC, CMP, CRP, fecal calpro, GI panel, CDIff; Ideally would also get cross sectional imaging with contrast, but due to recent BERNARD will await renal function first. otherwise continue current mgmt. 02/17: Active on unit, social with select peers. More talkative today with T/W. Patient reports he spoke to his girlfriend who wants him to stay sober and get help. Pt stated, I want to stay clean. I plan to not use anymore . Pt more organized today. Reports some voices which decrease with Zyprexa. Pt was seen by hospitalist and given IV fluids; please see note. 02/18 continue tx. 02/19 continue tx. 02/20: Keeping to self. Pt reports feeling anxious ; he reports auditory hallucinations have decreased. denies SI/HI/VH. Continues to report loose stool; GI consult placed, awaiting follow up. 02/21: Calm, guarded.Keeping to self. Organized. Pt reports feeling anxious and depressed ; pt stated, I feel like I want to throw myself out the window . +SI. denies HI/VH. Continues to report auditory hallucinations which have decreased. DC Zyprexa; consider increasing Seroquel dose. Start: Abilify 5mg PO daily Creatinine 0.98 on 02/21. GI to order CT scan of abdomen. 02/22: Keeping to self. Pt continues to reports feeling anxious and depressed ; pt reports suicidal ideation with no plan. denies HI/VH. Continues to report auditory hallucinations. denies any side effects from Abilify. Will discuss RODRIGUES with patient. GI ordered CT scan of abdomen; pt agreed to scan initially then declined. Pt stated, my stomach feels fine. I don't have diarrhea anymore. I just want treatment for my anxiety and depression . 02/23: Pt continues to report feeling depressed ; pt reports suicidal ideation with no plan. denies HI/VH. Continues to report auditory hallucinations. Abilify increased to 10mg PO daily; discussed RODRIGUES, pt reports he will think about it . per nursing, pt slept 8 hours last night. 02/24: Pt continues to report feeling depressed ; pt reports suicidal ideation with no plan. denies HI/VH. Continues to report auditory hallucinations. Patient reports he is trying to find something to live for ; pt reports he is going to try to attend groups. Continue current tx plan. GI (Dr. Rayo) ordered CT scan of abdomen; pt declined again despite multiple attempts. 02/25: no changes. Encourage CT 02/26: Stop seroquel. Start olanzapine 10mg bedtime and 2.5mg prn for AH and mood and anxiety 02/27: Patient continues to report depression and anxiety. pt stated, I'm having thoughts of wanting to jump out the window. I'm still hearing the voices. I want my medication increased . +SI with no plan. denies HI. Patient reports he is trying to think of things that would make me happy . Increase Abilify to 15mg PO daily and Wellbutrin to 300mg PO daily; Decrease Zyprexa to 5mg PO TID PRN 02/28: Patient reports feeling similar to yesterday; he is hopeful of medications being beneficial. Pt stated, I'm waiting to see if the medication will help me . Less suicidal thoughts. +AH. denies HI/VH. Continue current tx plan. 03/01: Pt is alert and oriented; behavior is cooperative and calm; dressed in casual attire; mood is described as a lot of anxiety ; eye contact appropriate; Speech is normal rate, volume and not pressured; thought process is organized; Thought content is on tx; future oriented today; denies HI/VH/AH. Pt reports passive suicidal ideation with no plan. Patient educated on: diagnosis, medication risk/benefits, substance abuse and therapeutic strategies Reason for continued inpatient stay Substantial Risk for: harm to self and med/psych decompensation Time Spent With Patient Time: Total time managing care of this patient today _20___ minutes.
[2024-03-01] MEDS: Loperamide HCl 2 MG CAPSULE 4 MG PO (10:04)
[2024-03-01] MEDS: hydrOXYzine HCL 25 MG TABLET PO ×2 (13:46→21:08)
--- NOTE | 2024-03-01 15:54 | PC.NURSE ---
Addendum entered by Isaura Locke RN 03/01/24 19:13: Pt successfully has urinated at this point, he feels as though he has emptied his bladder. Dr. Poole aware. Addendum entered by Isaura Locke RN 03/01/24 18:44: Pt given Pyridium by Dr. Poole. Upon assessment two hours later, pt had still not voided. This radio script writer texted Dr. Poole via [employer]. He stated that if the pt isn't feeling like his bladder is full, he doesn't need an updated PVR. Original Note: Pt c/o bladder retention. Upon bladder scan, 199ml was found. This radio script writer texted Anay Brar NP, to let her know this information, as well as the fact that pt is asking for additional help with this concern. Answer pending.
[2024-03-01] MEDS: Phenazopyridine HCL 100 MG TABLET PO (16:45)
--- NOTE | 2024-03-01 17:01 | PC.NURSE ---
[id number] [id number] is c/o dysuria/ urinary hesitancy - feels like he has to push to get his urine out and then feels his bladder is not emptying. His PVR this afternoon is [address] [facility] for pvr> 350. I informed Gloria Lott NP (his provider) who asked that I pass on to hospitalist service. Dr Marcos responded stating he would order pyridium for this patient
[2024-03-01 20:45] VITALS: BP 116/74; PULSE 64; RESP 16; TEMP 36.8; O2SAT 99
[2024-03-01] MEDS: traZODone HCL 50 MG TABLET PO (21:08)
[2024-03-01 23:28] LABS: Lactoferrin, Fecal, Quant. <6.25 mcg/mL (<7.25)
[2024-03-02] MEDS: traZODone HCL 50 MG TABLET PO ×2 (00:02→20:44)
[2024-03-02 07:00] VITALS: BMI 22.5
[2024-03-02 08:00] VITALS: BP 140/87; PULSE 62; RESP 16; TEMP 36.6; O2SAT 93
[2024-03-02] MEDS: BUDESONIDE 3 MG 9 EACH PO (08:13)
[2024-03-02] MEDS: ARIPiprazole 15 MG TABLET PO (08:14)
[2024-03-02] MEDS: buPROPion HCl XL 300 MG TAB.ER.24H PO (08:14)
[2024-03-02] MEDS: PARoxetine HCL 10 MG TABLET PO (08:14)
[2024-03-02] MEDS: methADONE HCl 20 MG/2 ML ORAL.CONC 60 MG PO (08:16)
[2024-03-02 08:18] VITALS: BP 140/87
[2024-03-02] MEDS: cloNIDine HCL 0.1 MG TABLET PO ×2 (08:18→20:44)
[2024-03-02] MEDS: traMADoL HCL 50 MG TABLET 25 MG PO ×3 (08:37→20:44)
[2024-03-02] MEDS: Loperamide HCl 2 MG CAPSULE 4 MG PO ×3 (08:38→20:48)
[2024-03-02] MEDS: Acetaminophen 325 MG TABLET 650 MG PO (10:17)
[2024-03-02 10:26] LABS: Fecal Fat Qualitative ABNORMAL
--- NOTE | 2024-03-02 10:45 | HO.PSYCHPN ---
Subjective Subjective Date of Service: 03/02/24 Reason For Visit: crisis Subjective Notes: Conditional Voluntary Interim History: Active on unit. Patient reports feeling better emotionally. Pt stated, I'm trying to be positive . Pt reports auditory hallucinations are not as bad ; continues to report passive suicidal ideation with no plan. Patient plans on staying sober and attending meetings. Plans to follow up with outpatient providers. Medication Compliance: Yes Side effects from medications: No Attending Groups: No Review of Systems Constitutional: Reports as per HPI Eyes: Reports as per HPI Reports as per HPI Cardiovascular: Reports as per HPI Respiratory: Reports as per HPI Gastrointestinal: Reports as per HPI Genitourinary: Reports as per HPI Musculoskeletal: Reports as per HPI Skin/Breast: Reports as per HPI Reports as per HPI Psychiatric: Reports as per HPI Endocrine: Reports as per HPI Hematologic/Lymphatic: Reports as per HPI Allergic/Immunologic: Reports as per HPI Mental Status Exam Mental Status Exam Narrative: Pt is alert and oriented; behavior is cooperative and calm; dressed in casual attire; mood is described as anxiety ; eye contact appropriate; Speech is normal rate, volume and not pressured; thought process is organized; Thought content is on tx; future oriented; denies HI/VH.He reports auditory hallucinations that are not bad . Pt reports passive suicidal ideation with no plan. Diagnostics Vital Signs (24Hr): Vital Signs - 24 hr 03/01/24 20:45 03/02/24 08:00 03/02/24 08:18 Temperature 98.2 F 97.8 F Pulse Rate 64 62 Respiratory Rate 16 16 Blood Pressure 116/74 140/87 H 140/87 H Pulse Oximetry 99 93 Oxygen Delivery Method Room Air Room Air BMI result Body Mass Index 24.2 Labs 02/18/24 12:01 02/22/24 12:10 Labs: Laboratory Results - last 48 hr 02/22/24 12:55 Stool Fat, Qual ABNORMAL Stool Lactoferrin <6.25 Imaging Radiology Impressions: ITS Impressions Chest X-Ray 02/04/24 08:52 IMPRESSION: No acute pulmonary disease. Few streaky linear right lung base opacities are favored to represent atelectasis. Electronically signed by: Kory Jernigan MD 02/04/2024 11:[address] 02/14/24 13:49 IMPRESSION: No acute intracranial pathology. Electronically signed by: Pascale Robb MD 02/14/2024 08:02 PM EDT RP Abdomen/Pelvis CT 02/27/24 10:26 IMPRESSION: 1. Postoperative changes in the colon. Question of mild inflammatory change in the small bowel loops in the midline upper pelvis abutting the area of surgery in the region of the remaining sigmoid colon. 2. Borderline mildly dilated small bowel loops in the central abdomen. This may reflect normal variation, mild ileus but cannot exclude partial small bowel obstruction. 3. IVC filter in place. 4. Degenerative disc disease at L5-S1 unchanged. Fleischner guidelines were followed. Electronically signed by: Som Romero MD 02/27/2024 12:31 PM EST RP Medications Medications Current Medications Acetaminophen (Acetaminophen 325 Mg Tablet) 650 mg PO Q6H PRN PRN Reason: Headache/Pain Mild Scale (1-3) Last Admin: 03/02/24 10:17 Dose: 650 mg Al Hydroxide/Mg Hydroxide (Magnesium Hydrox/Alum Hydrox 30 Ml Oral.Susp) 30 ml PO Q6H PRN PRN Reason: Heartburn/Nausea Aripiprazole (Aripiprazole 15 Mg Tablet) 15 mg PO DAILY [facility] Last Admin: 03/02/24 08:14 Dose: 15 mg Bupropion HCl (Bupropion Hcl Xl 300 Mg Tab.Er.24h) 300 mg PO DAILY [facility] Last Admin: 03/02/24 08:14 Dose: 300 mg Clonidine HCl (Clonidine Hcl 0.1 Mg Tablet) 0.1 mg PO BID [facility]; Protocol Last Admin: 03/02/24 08:18 Dose: 0.1 mg Hydroxyzine HCl (Hydroxyzine Hcl 25 Mg Tablet) 25 mg PO Q6H PRN PRN Reason: Anxiety Last Admin: 03/01/24 21:08 Dose: 25 mg Loperamide HCl (Loperamide Hcl 2 Mg Capsule) 4 mg PO Q6H PRN PRN Reason: Loose Stool Last Admin: 03/02/24 08:38 Dose: 4 mg Magnesium Hydroxide (Milk Of Magnesia 30 Ml Oral.Susp) 30 ml PO DAILY PRN PRN Reason: Constipation Methadone HCl (Methadone Hcl 20 Mg/2 Ml Oral.Conc) 60 mg PO DAILY@0800 [facility] Last Admin: 03/02/24 08:16 Dose: 60 mg Nicotine Polacrilex (Nicotine Polacrilex 2 Mg Gum) 4 mg BUCCAL Q2H PRN PRN Reason: Nicotine Cravings Pat Own Med ( Budesonide 3mg Er Cap Dr) 9 mg PO DAILY [facility] Last Admin: 03/02/24 08:13 Dose: 9 mg Olanzapine (Olanzapine 5 Mg Tablet) 5 mg PO TID PRN PRN Reason: agitation or psychosis Ondansetron HCl (Ondansetron Odt 8 Mg Tab.Rapdis) 8 mg TRANSLINGU Q12H PRN PRN Reason: Nausea and Vomiting Last Admin: 02/27/24 15:35 Dose: 8 mg Paroxetine HCl (Paroxetine Hcl 10 Mg Tablet) 10 mg PO DAILY [facility] Last Admin: 03/02/24 08:14 Dose: 10 mg Psyllium Hydrophilic Mucilloid (Psyllium Seed 3.7 Gm Packet) 3.7 gm PO BEDTIME NEIDA Last Admin: 03/01/24 21:09 Dose: Not Given Tramadol HCl (Tramadol Hcl 50 Mg Tablet) 25 mg PO Q6H PRN PRN Reason: Pain, Severe (Pain Scale 7-10) Last Admin: 03/02/24 08:37 Dose: 25 mg Trazodone HCl (Trazodone Hcl 50 Mg Tablet) 50 mg PO BEDTIME MRX1 PRN PRN Reason: Insomnia Last Admin: 03/02/24 00:02 Dose: 50 mg Allergies Allergies Allergy/AdvReac Type Severity Reaction Status Date / Time haloperidol [From Haldol] AdvReac see note Verified 02/21/24 15:28 Assessment & Plan Assessment & Plan (1) MDD (major depressive disorder), recurrent, severe, with psychosis: Status: Acute Code(s): F33.3 - Major depressive disorder, recurrent, severe with psychotic symptoms (2) Cocaine use disorder: Status: Acute Code(s): F14.10 - Cocaine abuse, uncomplicated (3) Opioid use disorder: Status: Acute Code(s): F11.90 - Opioid use, unspecified, uncomplicated (4) Homeless single person: Status: Acute Code(s): Z59.00 - Homelessness unspecified Plan Patient is a 49-year-old male with history of MDD, PTSD, opiate use disorder and cocaine use disorder who was brought in by ambulance from a hotel after a suicide attempt by overdose on multiple substances. Plan: CV 15 minute safety checks Review past medications Continue home medications Addiction medicine consult Build rapport Encourage groups Discharge planning 02/08: Laying in bed most of shift. Irritable. Guarded. Pt reports feeling anxious and depressed ; pt stated, I'm hearing voices telling me to kill myself. They told me to sniff all the bags of drugs. I felt like I had a devil and tony on my shoulders . Pt continues to report auditory hallucinations. He reports suicidal ideation with no plan. denies HI/VH. Pt reports he would like to go to respite after discharge. pt c/o of withdrawal symptoms; seen by addiction medicine. 02/09:Irritable. Guarded. Pt reports feeling depressed ; pt continues to report auditory hallucinations. He reports suicidal ideation with no plan. Pt stated, I always feel suicidal . denies HI/VH. Pt reports he would prefer to be referred to a respite or jail in [place] or [place]. Continue current tx plan. 02/10: Irritable. Guarded. Refusing to meet with T/W at first, despite multiple attempts. Pt stated, Oh my God. I don't want to talk. Just stay quiet . Observed going into room mates belongings; pt was redirected. Later in the morning, pt agreed to speak to T/W while pacing unit hallway. Pt reports feeling okay ; he reports auditory hallucinations off and on throughout the day. Denies HI/VH. Passive SI with no plan. Pt reports he wants to be discharged to a jail in [place]; social work aware. Labs ordered. 02/11 keep same treatment. 02/12 the patient looks more confused than usual, I am ordering new blood work for tomorrow morning. Ammonia level, comprehensive metabolic panel and CBC with differential 02/13: refused bloodwork. looking delirious this morning, a bit unsteady on the feet and fecal incontinence. hospitalist consult done, pt amenable to labs now. will check head CT, UA, UDS, and various serum labs. decrease paxil and seroquel by half to minimize anti-histaminergic and cholinergic medications. 02/14: Active on unit. Guarded. Pt reports feeling fine ; presents more organized today. Pt stated, I don't know why I was confused. I feel okay right now . Pt was seen by hospitalist; please see note. BMP to be drawn tomorrow. Pt reported difficulty urinating; bladder scan showed 198mL; waiting for UA results. Pt continues to report loose stools despite being given Imodium; GI consult placed d/t loose stool for 4 days/hx of colostomy. 02/15: Guarded. Attending some groups. Pt reports feeling okay ; Confused at times. incontinent of urine x1 today. denies SI/HI/VH/AH. Neurology consult placed. Waiting on GI consult and BMP results. Patient educated on: diagnosis and medication risk/benefits. 02/16: sleeping, not disturbed. neuro consult without recommendations. per GI consult: Check CBC, CMP, CRP, fecal calpro, GI panel, CDIff; Ideally would also get cross sectional imaging with contrast, but due to recent BERNARD will await renal function first. otherwise continue current mgmt. 02/17: Active on unit, social with select peers. More talkative today with T/W. Patient reports he spoke to his girlfriend who wants him to stay sober and get help. Pt stated, I want to stay clean. I plan to not use anymore . Pt more organized today. Reports some voices which decrease with Zyprexa. Pt was seen by hospitalist and given IV fluids; please see note. 02/18 continue tx. 02/19 continue tx. 02/20: Keeping to self. Pt reports feeling anxious ; he reports auditory hallucinations have decreased. denies SI/HI/VH. Continues to report loose stool; GI consult placed, awaiting follow up. 02/21: Calm, guarded.Keeping to self. Organized. Pt reports feeling anxious and depressed ; pt stated, I feel like I want to throw myself out the window . +SI. denies HI/VH. Continues to report auditory hallucinations which have decreased. DC Zyprexa; consider increasing Seroquel dose. Start: Abilify 5mg PO daily Creatinine 0.98 on 02/21. GI to order CT scan of abdomen. 02/22: Keeping to self. Pt continues to reports feeling anxious and depressed ; pt reports suicidal ideation with no plan. denies HI/VH. Continues to report auditory hallucinations. denies any side effects from Abilify. Will discuss RODRIGUES with patient. GI ordered CT scan of abdomen; pt agreed to scan initially then declined. Pt stated, my stomach feels fine. I don't have diarrhea anymore. I just want treatment for my anxiety and depression . 02/23: Pt continues to report feeling depressed ; pt reports suicidal ideation with no plan. denies HI/VH. Continues to report auditory hallucinations. Abilify increased to 10mg PO daily; discussed RODRIGUES, pt reports he will think about it . per nursing, pt slept 8 hours last night. 02/24: Pt continues to report feeling depressed ; pt reports suicidal ideation with no plan. denies HI/VH. Continues to report auditory hallucinations. Patient reports he is trying to find something to live for ; pt reports he is going to try to attend groups. Continue current tx plan. GI (Dr. Rayo) ordered CT scan of abdomen; pt declined again despite multiple attempts. 02/25: no changes. Encourage CT 02/26: Stop seroquel. Start olanzapine 10mg bedtime and 2.5mg prn for AH and mood and anxiety 02/27: Patient continues to report depression and anxiety. pt stated, I'm having thoughts of wanting to jump out the window. I'm still hearing the voices. I want my medication increased . +SI with no plan. denies HI. Patient reports he is trying to think of things that would make me happy . Increase Abilify to 15mg PO daily and Wellbutrin to 300mg PO daily; Decrease Zyprexa to 5mg PO TID PRN 02/28: Patient reports feeling similar to yesterday; he is hopeful of medications being beneficial. Pt stated, I'm waiting to see if the medication will help me . Less suicidal thoughts. +AH. denies HI/VH. Continue current tx plan. 03/01: Pt is alert and oriented; behavior is cooperative and calm; dressed in casual attire; mood is described as a lot of anxiety ; eye contact appropriate; Speech is normal rate, volume and not pressured; thought process is organized; Thought content is on tx; future oriented today; denies HI/VH/AH. Pt reports passive suicidal ideation with no plan. 03/02: Active on unit. Patient reports feeling better emotionally. Pt stated, I'm trying to be positive . Pt reports auditory hallucinations are not as bad ; continues to report passive suicidal ideation with no plan. Patient plans on staying sober and attending meetings. Plans to follow up with outpatient providers. Patient educated on: diagnosis, medication risk/benefits, substance abuse and therapeutic strategies Reason for continued inpatient stay Substantial Risk for: stable for discharge Time Spent With Patient Time: Total time managing care of this patient today _20___ minutes.
[2024-03-02] MEDS: hydrOXYzine HCL 25 MG TABLET PO (16:13)
[2024-03-02] MEDS: OLANZapine 5 MG TABLET PO (16:14)
[2024-03-02] MEDS: Magnesium Hydrox/Alum Hydrox 30 ML ORAL.SUSP PO (18:18)
[2024-03-02 20:00] VITALS: BP 108/63; PULSE 60; RESP 16; TEMP 36.8; O2SAT 97
[2024-03-02] MEDS: Phenazopyridine HCL 100 MG TABLET PO (20:43)
--- NOTE | 2024-03-02 22:25 | PM.EVENT ---
Event Note Date of Service: 03/02/24 Event Note: Patient is a 49-year-old male admitted to [facility] psych unit with consult placed for RLQ pain radiating to the back with concern for nephrolithiasis. Patient seen and examined in his room where he complains of chronic lower abdominal pain around baseline. Reports previously had right lower back pain that has since resolved a few hours ago. Patient denies any difficulty urinating, pain with urination, or changes to bowel or bladder habits. Review of most recent CT of abdomen and pelvis on 02/27/2024 negative for renal calculi, hydronephrosis, or hydroureter, though we number of patient's previous CTs of abdomen/pelvis are positive for bilateral renal calculi. Given patient's relatively benign exam, recent negative CT findings, and apparent resolution of symptoms, no indication for further workup or treatment indicated at this time for nephrolithiasis. If patient's symptoms return can treat with IVF, tamsulosin, and get an ultrasound. Time Spent With Patient Time: Total time managing care of this patient today ____ minutes.
[2024-03-03 08:00] VITALS: BP 103/61; PULSE 76; RESP 16; TEMP 36.8; O2SAT 97
[2024-03-03] MEDS: methADONE HCl 20 MG/2 ML ORAL.CONC 60 MG PO (08:10)
[2024-03-03] MEDS: buPROPion HCl XL 300 MG TAB.ER.24H PO (08:13)
[2024-03-03] MEDS: OLANZapine 5 MG TABLET PO (08:13)
[2024-03-03] MEDS: Acetaminophen 325 MG TABLET 650 MG PO (08:13)
[2024-03-03] MEDS: Ondansetron ODT 8 MG TAB.RAPDIS TRANSLINGU (08:13)
[2024-03-03] MEDS: ARIPiprazole 15 MG TABLET PO (08:13)
[2024-03-03] MEDS: Loperamide HCl 2 MG CAPSULE 4 MG PO (08:14)
[2024-03-03] MEDS: Naloxone HCl Nasal TAKE HOME 4 MG SPRAY 8 MG NOSTRILALT (09:40)
--- NOTE | 2024-03-03 10:32 | PM.PSYDC ---
DS: Providers Provider Date of Service: 03/03/24 Date of admission: 02/08/24 12:22 Date of discharge: 03/03/24 Primary care physician: Unknown Physician Admitting clinician: Gloria Lott Attending physician on admission: Jefferson Vasquez Consults: 02/08/24 16:27 Addiction Medicine Stat Consulting Provider: Addiction Covering Reason for consultation: methadone, last dose on 03/04 50mg. ?restart? 02/14/24 12:44 Consult to Hospitalist Routine Comment: Consulting Provider: Hospitalist Reason For Exam: delirium 02/15/24 09:44 Consult to Gastroenterology Routine Consulting Provider: Rod Rabago Reason for consultation: 4 days loose stools despite imodium;hx of colostomy 02/16/24 09:33 Consult to Neurology Stat Consulting Provider: [facility] Reason for consultation: ?delirium Attending physician on discharge: Jefferson Vasquez Discharging clinician: Gloria Lott DS: Diagnosis Discharge Diagnosis (1) MDD (major depressive disorder), recurrent, severe, with psychosis: Status: Acute (2) Cocaine use disorder: Status: Acute (3) Opioid use disorder: Status: Acute (4) Homeless single person: Status: Acute DS: Medications Discharge Medications Home Medications: Previous Rx's ?Medication ?Instructions ?Recorded budesonide 9 mg tablet,delayed and 9 mg PO DAILY 8 weeks #56 ea 02/28/24 extended release aripiprazole 15 mg tablet 15 mg PO DAILY 30 days #30 tabs 03/02/24 bupropion HCl 300 mg 24 hr tablet, 300 mg PO DAILY 30 days #30 tabs 03/02/24 extended release clonidine HCl 0.1 mg tablet 0.1 mg PO BID 30 days #60 tabs 03/02/24 loperamide 2 mg capsule 4 mg (2 x 2 mg) PO Q12H PRN Loose 03/02/24 Stool 14 days #56 caps methadone 10 mg/mL oral 60 mg (6 mL) PO DAILY@0800 #0 mL 03/02/24 concentrate (Methadose) paroxetine HCl 10 mg tablet 10 mg PO DAILY 30 days #30 tabs 03/02/24 psyllium (Hydrocil Instant oral 1 packet PO BEDTIME 30 days #30 ea 03/02/24 packet) Mental Status Exam Mental Status Exam Narrative: Pt is alert and oriented; behavior is cooperative and calm; dressed in casual attire; mood is described as anxiety ; eye contact appropriate; Speech is normal rate, volume and not pressured; thought process is organized; Thought content is on tx; future oriented; denies SI/HI/VH.He reports auditory hallucinations that are not bad . Data Data Completed and Pending Completed studies during hospitalization [Text1]: 02/18/24 02/22/24 17:45 12:55 Stool Fat, Qual ABNORMAL Stool Calprotectin 181 H Stool Lactoferrin <6.25 Imaging Diagnostic Imaging Impressions Chest X-Ray 02/04/24 08:52 IMPRESSION: No acute pulmonary disease. Few streaky linear right lung base opacities are favored to represent atelectasis. Electronically signed by: Kory Jernigan MD 02/04/2024 11:26 AM EDT RP Head CT 02/14/24 13:49 IMPRESSION: No acute intracranial pathology. Electronically signed by: Pascale Robb MD 02/14/2024 08:02 PM EDT RP Abdomen/Pelvis CT 02/27/24 10:26 IMPRESSION: 1. Postoperative changes in the colon. Question of mild inflammatory change in the small bowel loops in the midline upper pelvis abutting the area of surgery in the region of the remaining sigmoid colon. 2. Borderline mildly dilated small bowel loops in the central abdomen. This may reflect normal variation, mild ileus but cannot exclude partial small bowel obstruction. 3. IVC filter in place. 4. Degenerative disc disease at L5-S1 unchanged. Fleischner guidelines were followed. Electronically signed by: Som Romero MD 02/27/2024 12:31 PM [facility] RP DS: Summary Hospital Course Hospital Course: Patient is a 49-year-old male with history of MDD, PTSD, opiate use disorder and cocaine use disorder who was brought in by ambulance from a hotel after a suicide attempt by overdose on multiple substances. Per crisis report, patient reports using everything ; patient was not willing to provide urine sample when arrived to ER. He states the polysubstance use was an intentional attempt to end his life. Per report, Patient has longstanding chronic substance use due to unresolved grief and trauma and history of homelessness. During admission assessment, T/W reviewed conditional voluntary and bowles warning was given. Patient was watching TV in the common area and declined to meet with this parts data writer. Patient presents agitated and stated he will meet with me tomorrow. Plan: CV 15 minute safety checks Review past medications Continue home medications Addiction medicine consult Build rapport Encourage groups Discharge planning Laying in bed most of shift. Irritable. Guarded. Pt reports feeling anxious and depressed ; pt stated, I'm hearing voices telling me to kill myself. They told me to sniff all the bags of drugs. I felt like I had a devil and tony on my shoulders . Pt continues to report auditory hallucinations. He reports suicidal ideation with no plan. denies HI/VH. Pt reports he would like to go to respite after discharge. pt c/o of withdrawal symptoms; seen by addiction medicine. Irritable. Guarded. Pt reports feeling depressed ; pt continues to report auditory hallucinations. He reports suicidal ideation with no plan. Pt stated, I always feel suicidal . denies HI/VH. Pt reports he would prefer to be referred to a respite or nursing home in [place] or [place]. Continue current tx plan. Irritable. Guarded. Refusing to meet with T/W at first, despite multiple attempts. Pt stated, Oh my God. I don't want to talk. Just stay quiet . Observed going into room mates belongings; pt was redirected. Later in the morning, pt agreed to speak to T/W while pacing unit hallway. Pt reports feeling okay ; he reports auditory hallucinations off and on throughout the day. Denies HI/VH. Passive SI with no plan. Pt reports he wants to be discharged to a nursing home in [place]; social work aware. Labs ordered. the patient looks more confused than usual, I am ordering new blood work for tomorrow morning. Ammonia level, comprehensive metabolic panel and CBC with differential refused bloodwork. looking delirious this morning, a bit unsteady on the feet and fecal incontinence. hospitalist consult done, pt amenable to labs now. will check head CT, UA, UDS, and various serum labs. decrease paxil and seroquel by half to minimize anti-histaminergic and cholinergic medications. Active on unit. Guarded. Pt reports feeling fine ; presents more organized today. Pt stated, I don't know why I was confused. I feel okay right now . Pt was seen by hospitalist; please see note. BMP to be drawn tomorrow. Pt reported difficulty urinating; bladder scan showed 198mL; waiting for UA results. Pt continues to report loose stools despite being given Imodium; GI consult placed d/t loose stool for 4 days/hx of colostomy. Guarded. Attending some groups. Pt reports feeling okay ; Confused at times. incontinent of urine x1 today. denies SI/HI/VH/AH. Neurology consult placed. Waiting on GI consult and BMP results. Patient educated on: diagnosis and medication risk/benefits. sleeping, not disturbed. neuro consult without recommendations. per GI consult: Check CBC, CMP, CRP, fecal calpro, GI panel, CDIff; Ideally would also get cross sectional imaging with contrast, but due to recent BERNARD will await renal function first. otherwise continue current mgmt. Active on unit, social with select peers. More talkative today with T/W. Patient reports he spoke to his girlfriend who wants him to stay sober and get help. Pt stated, I want to stay clean. I plan to not use anymore . Pt more organized today. Reports some voices which decrease with Zyprexa. Pt was seen by hospitalist and given IV fluids; please see note. Keeping to self. Pt reports feeling anxious ; he reports auditory hallucinations have decreased. denies SI/HI/VH. Continues to report loose stool; GI consult placed, awaiting follow up. Calm, guarded.Keeping to self. Organized. Pt reports feeling anxious and depressed ; pt stated, I feel like I want to throw myself out the window . +SI. denies HI/VH. Continues to report auditory hallucinations which have decreased. DC Zyprexa; consider increasing Seroquel dose. Start: Abilify 5mg PO daily Creatinine 0.98 on 02/21. GI to order CT scan of abdomen. Keeping to self. Pt continues to reports feeling anxious and depressed ; pt reports suicidal ideation with no plan. denies HI/VH. Continues to report auditory hallucinations. denies any side effects from Abilify. Will discuss RODRIGUES with patient. GI ordered CT scan of abdomen; pt agreed to scan initially then declined. Pt stated, my stomach feels fine. I don't have diarrhea anymore. I just want treatment for my anxiety and depression . Pt continues to report feeling depressed ; pt reports suicidal ideation with no plan. denies HI/VH. Continues to report auditory hallucinations. Abilify increased to 10mg PO daily; discussed RODRIGUES, pt reports he will think about it . per nursing, pt slept 8 hours last night. Pt continues to report feeling depressed ; pt reports suicidal ideation with no plan. denies HI/VH. Continues to report auditory hallucinations. Patient reports he is trying to find something to live for ; pt reports he is going to try to attend groups. Continue current tx plan. GI (Dr. Rayo) ordered CT scan of abdomen; pt declined again despite multiple attempts. Stop seroquel. Start olanzapine 10mg bedtime and 2.5mg prn for AH and mood and anxiety Patient continues to report depression and anxiety. pt stated, I'm having thoughts of wanting to jump out the window. I'm still hearing the voices. I want my medication increased . +SI with no plan. denies HI. Patient reports he is trying to think of things that would make me happy . Increase Abilify to 15mg PO daily and Wellbutrin to 300mg PO daily; Decrease Zyprexa to 5mg PO TID PRN Patient reports feeling similar to yesterday; he is hopeful of medications being beneficial. Pt stated, I'm waiting to see if the medication will help me . Less suicidal thoughts. +AH. denies HI/VH. Continue current tx plan. Active on unit. future oriented today. Patient reports anxiety regarding his stomach issues ; pt stated, I'm having a lot of anxiety about my stomach. I'm just praying . Pt reports he plans on staying at a nursing home and his girlfriends home to save money for housing. Pt reports he plans on staying sober by going to meetings and praying to God . Pt would like to be set up with [place] [facility] since his girlfriend lives in [place]; social work aware. Active on unit. Patient reports feeling better emotionally. Pt stated, I'm trying to be positive . Pt reports auditory hallucinations are not as bad ; continues to report passive suicidal ideation with no plan. Patient plans on staying sober and attending meetings. Plans to follow up with outpatient providers. Patient discharged to [place] [facility]; he reports his girlfriend plans on meeting him there since she lives across the street. pt denies SI/HI/VH. He reports AH that is not bad . Pt plans on following up with outpatient providers. Time spent discussing smoking cessation with patient: 3 to 10 minutes Status at Discharge Cognitive/behavioral status at discharge: Patient has insight and demonstrates good judgment in terms of wanting to pursue treatment. Patient has a safety plan that includes presenting to the closest ER or calling 911 if feeling unsafe. Functional status at discharge: independent ambulation Overall status at discharge: patient is back to baseline Time Spent with Patient Time attestation: Total time managing care of this patient today _20___ minutes. Time spent: Less than 30 minutes Discharge Plan Discharge Anticipated Discharge Date/Time: 03/03/24 10:00 Patient Disposition: Snf Discharge Diagnosis: MDD, PTSD, opioid use d/o, cocaine use d/o Referrals: [facility] Walk-In Hours [Other] - 1 Week (Walk in hours Wednesday-Wednesday 8am-8pm Wednesday and Wednesday 9am-5pm Bring your discharge paperwork with you.) [facility] ([facility]) [Other] - 1 Week (Bring your last dose letter from the hospital and they will set you up that day with their clinic. ) Clotilde Baca MD [Physician] - 03/22/24 9:30 am (Your follow up appt has been scheduled for 03-22-24 @ 9:30am with Dr Clotilde Tracey at [facility] (fax tn [phone]) ) Discharge Medications: New aripiprazole 15 mg Tablet 15 mg PO DAILY 30 Days Qty: 30 0RF Hydrocil Instant Packet 1 packet PO BEDTIME 30 Days Qty: 30 0RF methadone [Methadose] 10 mg/mL Concentrate 60 mg PO DAILY@0800 Qty: 0 0RF Rx Instructions: Partial Fill upon patient request. loperamide 2 mg Capsule 4 mg PO Q12H PRN (Reason: Loose Stool) 14 Days Qty: 56 0RF paroxetine HCl 10 mg Tablet 10 mg PO DAILY 30 Days Qty: 30 0RF clonidine HCl 0.1 mg Tablet 0.1 mg PO BID 30 Days Qty: 60 0RF Protocol: Hold for SBP< HOLD for SBP < : 90 Continued budesonide 9 mg tablet,delayed and ext.release 9 mg PO DAILY 56 Days Qty: 56 0RF bupropion HCl 300 mg tablet extended release 24 hr 300 mg PO DAILY 30 Days Qty: 30 0RF Discontinued quetiapine 200 mg tablet 200 mg PO BID paroxetine HCl 20 mg tablet 20 mg PO DAILY benztropine 1 mg tablet 1 mg PO DAILY methadone 50 mg PO DAILY bupropion HCl 150 mg tablet extended release 24 hr 150 mg PO DAILY Discharge Orders: Discharge Order (Routine); Ordered 03/03/24 Ordered By: Gloria Lott Diet: Regular diet Activity on Discharge: As tolerated Stand Alone Forms: Patient Portal Discharge page, Community Support Print Language: Vietnamese Care Plan Goals: Maintain mood and safe behaviors Take medications as prescribed Continue to pursue sobriety Practice coping skills Continue with outpatient providers and reach out to them as needed Health Concerns: Mood stability and behaviors Sobriety Follow up with outpatient providers regarding GI/loose stool Plan of Treatment: Follow up with your PCP, psychiatric provider and other outpatient providers regarding above concerns Take medications as prescribed Assessment: Patient has insight and demonstrates good judgment in terms of wanting to pursue treatment. Patient has a safety plan that includes presenting to the closest ER or calling 911 if feeling unsafe. Discharge Date/Time: 03/03/24 10:17
== END 2024-03-03 10:17 | disposition home or self-care (01) | DRG 751 ==
LOC: HO.ED 02-08 07:06 → HO.PADLT16 02-08 12:48
PROVIDERS: Internal Medicine; Internal Medicine Gastroenterology; Physician Assistant; Psychiatry & Neurology Psychiatry; Admitting Provider Registered Nurse; Emergency Provider Emergency Medicine Emergency Medical Services; Responsible Provider Registered Nurse; Visit Provider Psychiatry & Neurology Psychiatry
DX: F33.1 Major depressive disorder, recurrent, moderate (principal); G92.8 Other toxic encephalopathy; N17.9 Acute kidney failure, unspecified; F05 Delirium due to known physiological condition; F11.20 Opioid dependence, uncomplicated; K50.90 Crohn's disease, unspecified, without complications; F43.10 Post-traumatic stress disorder, unspecified; F19.10 Other psychoactive substance abuse, uncomplicated; F17.210 Nicotine dependence, cigarettes, uncomplicated; Z71.6 Tobacco abuse counseling; F14.10 Cocaine abuse, uncomplicated; T50.912A Poisoning by multiple unspecified drugs, medicaments and biological substances, intentional self-harm, initial encounter; Z86.19 Personal history of other infectious and parasitic diseases; Z91.51 Personal history of suicidal behavior; Z59.02 Unsheltered homelessness; Z20.822 Contact with and (suspected) exposure to COVID-19; Z79.899 Other long term (current) drug therapy
CPT/HCPCS: 36415; 70450; 71045; 74176; 80048; 80053; 80307; 81001; 81003; 82140; 82550; 82607; 82705; 82746; 83631; 83735; 83880; 83993; 84484; 85025; 85027; 85610; 86140; 87507; 87635; 93005; 99285; J2060; J2270; J7120; S9485

== ENCOUNTER → 2024-02-04 08:43 | Outpatient (BNV) | payer MEDICAID, SELFPAY | PROVIDERS: Emergency Provider Emergency Medicine; Visit Provider Internal Medicine Cardiovascular Disease | DX: R07.9 Chest pain, unspecified (principal); R94.31 Abnormal electrocardiogram [ECG] [EKG] | CPT/HCPCS: 93010 ==

== ENCOUNTER → 2024-02-08 12:22 | Outpatient (BNV) | payer MEDICAID, SELFPAY | PROVIDERS: Admitting Provider Registered Nurse; Emergency Provider Emergency Medicine Emergency Medical Services; Responsible Provider Registered Nurse; Visit Provider Psychiatry & Neurology Neurology | DX: G92.8 Other toxic encephalopathy (principal) | CPT/HCPCS: 99222 ==

== ENCOUNTER → 2024-02-08 12:22 | Outpatient (BNV) | payer OTHER, SELFPAY | PROVIDERS: Admitting Provider Registered Nurse; Emergency Provider Emergency Medicine Emergency Medical Services; Responsible Provider Registered Nurse; Visit Provider Registered Nurse | DX: F33.3 Major depressive disorder, recurrent, severe with psychotic symptoms (principal); F14.10 Cocaine abuse, uncomplicated; F11.90 Opioid use, unspecified, uncomplicated; Z59.00 Homelessness unspecified | CPT/HCPCS: 99231; 99232; 99233 ==

== ENCOUNTER → 2024-02-08 12:22 | Outpatient (BNV) | payer OTHER, SELFPAY | PROVIDERS: Admitting Provider Registered Nurse; Emergency Provider Emergency Medicine Emergency Medical Services; Responsible Provider Registered Nurse; Visit Provider Internal Medicine Gastroenterology | DX: K50.90 Crohn's disease, unspecified, without complications (principal); K52.9 Noninfective gastroenteritis and colitis, unspecified | CPT/HCPCS: 99499 ==

== ENCOUNTER → 2024-02-08 12:22 | Outpatient (BNV) | payer MEDICAID, SELFPAY | PROVIDERS: Admitting Provider Registered Nurse; Emergency Provider Emergency Medicine Emergency Medical Services; Responsible Provider Registered Nurse; Visit Provider Physician Assistant | DX: G93.40 Encephalopathy, unspecified (principal) | CPT/HCPCS: 99222; 99499 ==

== ENCOUNTER → 2024-02-08 12:22 | Outpatient (BNV) | payer MEDICAID, SELFPAY | PROVIDERS: Admitting Provider Registered Nurse; Emergency Provider Emergency Medicine Emergency Medical Services; Responsible Provider Registered Nurse; Visit Provider Internal Medicine | DX: K52.9 Noninfective gastroenteritis and colitis, unspecified (principal); K50.90 Crohn's disease, unspecified, without complications | CPT/HCPCS: 99223; 99233; 99499 ==

== ENCOUNTER 2024-03-04 20:20 | Inpatient (IN) | payer MEDICAID, SELFPAY ==
--- NOTE | 2024-03-04 | ECG_ITS ---
Test Reason : OD Blood Pressure : / mmHG Vent. Rate : 094 BPM Atrial Rate : 094 BPM P-R Int : 154 ms QRS Dur : 090 ms QT Int : 378 ms P-R-T Axes : 050 037 047 degrees QTc Int : 472 ms Normal sinus rhythm Possible Left atrial enlargement Borderline ECG When compared with ECG of 04-FEB-2024 08:43, No significant change was found Referred By: Generic ED Physician Electronically Signed By:FERNANDA JUSTICE MD
--- NOTE | ~2024-03-04 | CT_ITS ---
EXAMINATION: CT ABDOMEN AND PELVIS WITHOUT CONTRAST CLINICAL INFORMATION: left lower abdominal pain COMPARISON: CT abdomen/pelvis 02/27/2024 and 09/22/2022 TECHNIQUE: Multidetector volumetric imaging was performed from the superior aspect of the liver through the pubic symphysis. Sagittal and coronal reformatted images were obtained on the technologist's workstation. This CT examination was performed using dose optimization techniques as appropriate, variously including the following: *Automated exposure control *Adjustment of mA and/or kV according to patient size (this includes techniques or standardized protocols for targeted exams where dose is matched to indication/reason for exam; i.e. extremities or head) *Use of iterative reconstruction technique DLP: 445 mGy-cm FINDINGS: LUNG BASES: Bibasilar atelectasis. No pleural effusions. The visualized mediastinum is normal. LIVER, GALLBLADDER, AND BILIARY TREE: The liver is normal in size, shape, and attenuation. No focal hepatic lesion or biliary ductal dilatation is present. The gallbladder is unremarkable with no evidence of radiopaque gallstones, gallbladder wall thickening, or obvious pericholecystic inflammatory changes. PANCREAS: Unremarkable. SPLEEN: Unremarkable. ADRENAL GLANDS: Unremarkable. KIDNEYS AND URETERS: The kidneys are normal in size, shape, and attenuation. No hydronephrosis, hydroureter, or calculi seen. No perinephric stranding. BLADDER: Unremarkable. GASTROINTESTINAL TRACT: The stomach is markedly dilated. Status post subtotal colectomy with ileosigmoid anastomosis. Intact anastomotic sutures in the left lower quadrant. There are dilated small bowel loops up to the anastomosis measuring up to 3.2 cm (coronal image 31). The mildly dilated small bowel loops are distal to the previously seen mildly dilated loops on 02/27/2024. ABDOMINAL WALL: Postsurgical changes along the midline and left lateral abdominal wall. LYMPH NODES: Normal. VASCULAR: Normal aorta. IVC filter in place. PELVIC VISCERA: Normal CT appearance of the prostate seminal vesicles. OSSEOUS STRUCTURES: No acute or suspicious osseous abnormality. Mild L5-S1 degenerative disc disease. CT/CT abdomen pelvis wo IV con IMPRESSION: Status post subtotal colectomy with ileosigmoid anastomosis. There are dilated distal small bowel loops up to the anastomosis measuring up to 3.2 cm. The stomach is markedly dilated. Findings can be seen with small bowel obstruction/ileus. Fleischner guidelines were followed. These results were discussed with Elmer LEBLANC by telephone on 03/04/2024 at 12:48 AM and it was ascertained that the content of the report was understood at the time of direct communication. Electronically signed by: Elidia Krishnamurthy DO 03/05/2024 12:[address] [facility]
[2024-03-04 20:28] VITALS: BP 153/80; BP 158/100; PULSE 106; PULSE 107; RESP 20; TEMP 36.8; O2SAT 96; O2SAT 99; BMI 19.5
--- NOTE | 2024-03-04 21:12 | PC.NURSE ---
Patient out of bed, ambulating with steady gait. Using bathroom, providing urine specimen at this time. Alert & oriented, calm & cooperative. Changed over into crisis/[facility] attire upon arrival to ED with security present. Belongings secured in decom by security staff member.
[2024-03-04 21:33] LABS: Appearance Urine Cloudy; Color Urine Dark Yellow; Glucose Urine UA Negative (Negative); Leukocyte Esterase Urine Trace (Negative); Nitrite Urine Positive (Negative); Specific Gravity - Urine 1.025 (1.005-1.025); UMIC TRIGGER UA YES; Urine Blood Moderate (2+) (Negative); Urine Ketones Trace mg/dL (Negative); Urine Protein 30 (1+) mg/dL (Neg-Trace)
[2024-03-04 21:43] LABS: Amphetamine Screen Urine Not Detected (Not Detect); Barbiturates, Urine Not Detected (Not Detect); Benzodiazepines Screen Urine Not Detected (Not Detect); Buprenorphine Scr Not Detected (Not Detect); Cannabinoid Screen Urine POSITIVE (Not Detect); Cocaine Screen Urine POSITIVE (Not Detect); Fentanyl, urine POSITIVE (Not Detect); Methadone Screen, Urine Positive (Not Detect); Opiate Screen Urine POSITIVE (Not Detect); Oxycodone Screen Urine Not Detected (Not Detect); Phencyclidine Screen Urine Not Detected (Not Detect)
--- NOTE | 2024-03-04 21:47 | MHC.EDTECH ---
patient refusing to stay on oxygen probe, educated patient on why his oxygen needed to be monitored, patient responded with I don't care and told me to go away
[2024-03-04 21:51] LABS: Basophils Absolute Auto 0.1 X10*3/uL (0.0-0.2); Eosinophils Percent Auto 0.1 % (0-4); Imm Gran Abs Auto 0.04 X10*3/uL (0.00-0.03); Imm Gran Pct Auto 0.4 % (0.0-0.4); MANUAL DIFF FLAG SCAN; PLT CLUMP 1; SCAN SMEAR FLAG 1
[2024-03-04 21:53] LABS: Basophils Percent Auto 0.5 % (0-2); Hematocrit 38.7 % (42.0-52.0); Hemoglobin 12.8 g/dl (14.0-18.0); Lymphocytes Absolute Auto 1.1 X10*3/uL (1.2-4.9); Lymphocytes Percent Auto 9.6 % (20-40); Mean Corpuscular HGB Conc 33.1 g/dl (31.0-36.0); Mean Corpuscular Hemoglobin 27.5 pg (27.0-33.0); Mean Platelet Volume 10.3 fL (9.4-12.4); Monocytes Absolute Auto 0.5 X10*3/uL (0.1-1.2); Monocytes Percent Auto 4.6 % (2-11); Neutrophils Absolute Auto 9.3 x10*3/uL (2.0-8.3); Neutrophils Percent Auto 84.8 % (45-73); Red Blood Count 4.66 X10*6/uL (4.60-5.80); Red Cell Distribution Width 15.6 % (11.0-16.0)
[2024-03-04 22:06] LABS: Acetaminophen LAB < 3 mcg/mL (<30); Salicylate < 5.0 mg/dL (15-30)
[2024-03-04 22:06] LABS: Bacteria Urine 1+ (None Seen); Calcium Oxalate Crystals Urine Present; Hyaline Casts Urine >20 /LPF (0-2); WBC Urine 0-5 /HPF (0-5)
[2024-03-04 22:07] LABS: Alanine Aminotransferase 30 U/L (0-40); Alkaline Phosphatase 138 U/L (39-117); Anion Gap 21 (12-20); Aspartate Amino Transferase 112 U/L (5-37); Bilirubin Total 0.6 mg/dL (0.0-1.0); Blood Urea Nitrogen 44 mg/dL (9-16); Calcium 10.2 mg/dL (8.4-10.2); Carbon Dioxide 20 mmol/L (22-29); Chloride 109 mmol/L (96-108); Creatinine Clr Calc Pharmacy 38.6; Estimated Glomerular Filt Rate 35; Ethanol < 10 mg/dL; Glucose Random 106 mg/dL (60-115); Potassium 5.3 mmol/L (3.3-5.1); Sodium 145 mmol/L (135-145); Total Protein 9.6 g/dL (6.5-8.0)
[2024-03-04 22:10] LABS: Platelet Count 324 X10*3/uL (160-400)
[2024-03-04 22:11] LABS: SLIDE REVIEW VERIFIED
[2024-03-04 22:26] LABS: COVID-19 Test Negative (Negative); IDNOW Serial# 08D9AD1C
[2024-03-04 23:15] VITALS: BP 107/72; PULSE 83; RESP 18; TEMP 36.6; O2SAT 97
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
[2024-03-04 23:42] LABS: Magnesium 2.5 mg/dL (1.6-2.6)
[2024-03-04] MEDS: 0.9 % Sodium Chloride 1,000 ML 999 ML IV (23:54)
[2024-03-05] MEDS: 0.9 % Sodium Chloride 1,000 ML 999 ML IV (00:34)
[2024-03-05] MEDS: Lactated Ringers 1,000 ML 150 ML IVCONT ×3 (01:35→18:17)
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
[2024-03-05 04:18] VITALS: BP 117/82; PULSE 89; RESP 16; TEMP 36.7; O2SAT 98
[2024-03-05 05:12] VITALS: BP 114/63; PULSE 56; RESP 16; TEMP 36.2; O2SAT 96
[2024-03-05 05:14] VITALS: BMI 23.5
--- NOTE | 2024-03-05 07:23 | PM.EVENT ---
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 -Ivf, consider bicab replacement Polysubstance abuse. -continue methadone -addiction med consult Depression/Suicidal ideation. -1:1 observation -care team consult when medically stable -Continue his home medications: bupropion, aripiprazole, and paroxetine. Abnormal abdominal/pelvic CT scan with findings possibly suggestive of small bowel obstruction or ileus. However, the patient has not reported vomiting or constipation. He does experience chronic abdominal pain and has had small amounts of diarrhea. His diet will be advanced as tolerated. History of Crohn's disease, status post subtotal colectomy with ileosigmoid anastomosis. There is no evidence of acute exacerbation at this time. lovenox for dvt prophylaxis Time Spent With Patient Time: Total time managing care of this patient today ____ minutes.
[2024-03-05 08:00] VITALS: BP 117/75; PULSE 63; RESP 16; TEMP 36.5; O2SAT 97
[2024-03-05] MEDS: buPROPion HCl XL 300 MG TAB.ER.24H PO (09:29)
[2024-03-05] MEDS: methADONE HCl 20 MG/2 ML ORAL.CONC 60 MG PO (09:29)
[2024-03-05] MEDS: ARIPiprazole 15 MG TABLET PO (09:29)
[2024-03-05] MEDS: cloNIDine HCL 0.1 MG TABLET PO ×2 (09:29→20:08)
[2024-03-05] MEDS: PARoxetine HCL 10 MG TABLET PO (09:30)
[2024-03-05] MEDS: 0.9 % Sodium Chloride Flush 3 ML SYRINGE IVFLUSH (09:41)
--- NOTE | 2024-03-05 10:13 | MHC.CM.PN ---
From chart review, DC Plan appears to be [facility] R/T Suicide Attempt; Patient will benefit from a Care Team Eval. Patient is homeless, on Methadone and has had multiple [facility] admissions. PCP is from [facility]. CM will follow.
[2024-03-05 12:00] VITALS: BP 118/73; PULSE 62; RESP 16; TEMP 36.6; O2SAT 95
--- NOTE | 2024-03-05 12:55 | PHA.MEDREC ---
Addendum entered by Herman Chappell RPh 03/05/24 13:33: Reviewed by [facility] Original Note: Pharmacy Consult ? Medication Reconciliation Pharmacy has completed the medication reconciliation. Spoke with patient to confirm medications. He reports he picked up his new medications he was last discharged with from [facility] pharmacy, I cannot see the claims so unable to confirm. Used discharge packet to confirm medications. He said he did not take them yesterday, only the methadone. He reports his dose is 60 mg daily and [facility] in [place]. He did get a dose here in the hospital this morning.
[2024-03-05 15:53] VITALS: BP 107/63; PULSE 50; RESP 14; TEMP 36.8; O2SAT 97
--- NOTE | 2024-03-05 17:33 | HE.PHANOTE ---
METHAD[place] [facility] [place], [place] 60[place]. Pt last received at clinic 02/01 dose of 50mg, then was admitted [place] [facility] [place] until discharged 03/03.
[2024-03-05 19:58] VITALS: BP 119/70; PULSE 56; RESP 20; TEMP 36.7; O2SAT 100
[2024-03-05] MEDS: Psyllium seed 3.7 GM PACKET PO (20:08)
[2024-03-06] VITALS: BP 123/63; PULSE 62; RESP 12; TEMP 36.4; O2SAT 97
[2024-03-06] MEDS: Lactated Ringers 1,000 ML 150 ML IVCONT ×4 (01:12→22:34)
[2024-03-06 07:53] VITALS: BP 128/74; PULSE 72; RESP 16; TEMP 36.7; O2SAT 96
[2024-03-06 09:30] VITALS: BP 128/74
[2024-03-06] MEDS: ARIPiprazole 15 MG TABLET PO (09:30)
[2024-03-06] MEDS: buPROPion HCl XL 300 MG TAB.ER.24H PO (09:30)
[2024-03-06] MEDS: PARoxetine HCL 10 MG TABLET PO (09:30)
[2024-03-06] MEDS: cloNIDine HCL 0.1 MG TABLET PO (09:30)
[2024-03-06] MEDS: 0.9 % Sodium Chloride Flush 3 ML SYRINGE IVFLUSH (09:31)
[2024-03-06] MEDS: methADONE HCl 20 MG/2 ML ORAL.CONC 60 MG PO (09:35)
[2024-03-06 10:32] LABS: Anion Gap 14 (12-20); Blood Urea Nitrogen 12 mg/dL (9-16); Carbon Dioxide 23 mmol/L (22-29); Chloride 108 mmol/L (96-108); Creatinine Clr Calc Pharmacy 120.8; Estimated Glomerular Filt Rate > 60; Glucose Random 86 mg/dL (60-115); Potassium 3.9 mmol/L (3.3-5.1); Sodium 141 mmol/L (135-145)
--- NOTE | 2024-03-06 11:50 | MHC.RECOVRN ---
Met with pt in 478 after consult placed to Addiction Medicine for ongoing substance use. Pt had presented to the ED reporting SI with plan to overdose as well as not eating x 4 days. Upon evaluation, pt admitted for treatment of BERNARD secondary to rhabdomyolysis. Of note, pt had been admitted to from 02/07-03/03 and presented to the ED on the evening of 03/04. Pt laying in bed, awake, alert, engages in conversation. Pt currently receiving 60 mg methadone daily. Pt reports heroin/fentanyl use, 1 bundle daily, IV, as well as $40-$60 cocaine daily, IV. Pt reports crack cocaine use (INH) occasionally, reports he does not like to use it regularly because he can never get enough. Pt reports prior to presenting to the ED he attempted to inject 6 bags in an overdose attempt, however, was unable to due to being shaky. Pt states That's the only thing that stopped me. Pt reports he had been on methadone, 75/80 mg, in the past and would like to return to that dose due to continuing to have cravings. Pt denies withdrawal symptoms. Denies other questions or concerns for t/w. Discussed with Clotilde Pan APRN.
--- NOTE | 2024-03-06 14:59 | HO.PM.IMPN ---
Subjective Subjective Date of Service: 03/06/24 Interval History: Still suidical CPK down significantly Physical Exam Vital Signs: Vital Signs: Last Vital Signs Temp 98.1 F 03/06/24 07:53 Pulse 72 03/06/24 07:53 Resp 16 03/06/24 07:53 BP 128/74 03/06/24 09:30 Pulse Ox 96 03/06/24 07:53 O2 Del Method Room Air 03/06/24 07:53 BMI result Body Mass Index 23.5 Gen: in no acute distress HEENT: sclera anicteric, moist mucus membranes Neck: supple Lungs: clear to auscultation bilaterally Heart: regular rate and rhythm, no murmurs Abd: soft, non-tender, non-distended, colostomy pink Ext: no edema Skin: warm/well-perfused Neuro: alert and oriented x3, no focal findings Psych: restricted affect Objective Data Active Medications Acetaminophen (Acetaminophen 325 Mg Tablet) 975 mg PO Q6H PRN PRN Reason: Pain, Mild (Pain Scale 1-3), fever or headache Aripiprazole (Aripiprazole 15 Mg Tablet) 15 mg PO DAILY [facility] Last Admin: 03/06/24 09:30 Dose: 15 mg Documented By: CRISTINA Bupropion HCl (Bupropion Hcl Xl 300 Mg Tab.Er.24h) 300 mg PO DAILY [facility] Last Admin: 03/06/24 09:30 Dose: 300 mg Documented By: CRISTINA Calcium Carbonate (Calcium Carbonate 750 Mg Tab.Chew) 750 mg PO Q4H PRN PRN Reason: Heartburn Clonidine HCl (Clonidine Hcl 0.1 Mg Tablet) 0.1 mg PO BID [facility]; Protocol Last Admin: 03/06/24 09:30 Dose: 0.1 mg Documented By: CRISTINA Enoxaparin Sodium (Enoxaparin Sodium 40 Mg/0.4 Ml Syringe) 40 mg SUBCUT Q24H [facility] Last Admin: 03/06/24 10:25 Dose: Not Given Documented By: CRISTINA Non-Admin Reason: Patient Refused Lactated Ringer's (Lr) 1,000 mls @ 150 mls/hr IVCONT .Q6H40M [facility] Last Admin: 03/06/24 09:34 Dose: 150 mls/hr Documented By: CRISTINA Loperamide HCl (Loperamide Hcl 2 Mg Capsule) 4 mg PO Q12H PRN PRN Reason: Loose Stool Methadone HCl (Methadone Hcl 20 Mg/2 Ml Oral.Conc) 60 mg PO DAILY@0800 [facility] Last Admin: 03/06/24 09:35 Dose: 60 mg Documented By: CRISTINA Co-signed By: MARVA Paroxetine HCl (Paroxetine Hcl 10 Mg Tablet) 10 mg PO DAILY [facility] Last Admin: 03/06/24 09:30 Dose: 10 mg Documented By: CRISTINA Psyllium Hydrophilic Mucilloid (Psyllium Seed 3.7 Gm Packet) 3.7 gm PO BEDTIME [facility] Last Admin: 03/05/24 20:08 Dose: 3.7 gm Documented By: KING Sodium Chloride (0.9 % Sodium Chloride Flush 3 Ml Syringe) 3 ml IVFLUSH QSHIFT [facility] Last Admin: 03/06/24 09:31 Dose: 3 ml Documented By: CRISTINA Labs 03/04/24 21:43 03/06/24 08:06 Labs: Laboratory Results - last 24 hr 03/06/24 08:06 Anion Gap 14 Estim Creat Clear Calc 120.8 Estimated GFR > 60 Random Glucose 86 Calcium 9.0 D Total Creatine Kinase 1617 H Assessment and Plan (1) Suicidal ideation: Status: Acute Plan 49/m with polysubstance abuse with habitual drug use, frequent Psych admission, 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 resolved Polysubstance abuse. -continue methadone -addiction med consult Depression/Suicidal ideation. -1:1 observation -care team consult medically cleared -Continue his home medications: bupropion, aripiprazole, and paroxetine. Abnormal abdominal/pelvic CT scan with findings possibly suggestive of small bowel obstruction or ileus. However, the patient has not reported vomiting or constipation. He does experience chronic abdominal pain and has had small amounts of diarrhea. His diet will be advanced as tolerated. History of Crohn's disease, status post subtotal colectomy with ileosigmoid anastomosis. There is no evidence of acute exacerbation at this time. lovenox for dvt prophylaxis Quality Stroke Does the patient have a stroke diagnosis?: No VTE Prior VTE?: No VTE Risk Level:: Medical - moderate - high VTE Device Contraindication: Treatment Not Indicated VTE Drug Contraindication: N/A - Med Ordered
[2024-03-06 15:19] VITALS: BP 108/65; PULSE 65; RESP 16; TEMP 36.8; O2SAT 97
[2024-03-06] MEDS: Loperamide HCl 2 MG CAPSULE 4 MG PO (16:09)
[2024-03-06] MEDS: Acetaminophen 325 MG TABLET 975 MG PO (16:09)
[2024-03-07 03:25] VITALS: RESP 19
[2024-03-07] MEDS: Lactated Ringers 1,000 ML 150 ML IVCONT ×2 (05:13→11:40)
[2024-03-07] MEDS: Loperamide HCl 2 MG CAPSULE 4 MG PO ×2 (05:16→15:47)
[2024-03-07 07:44] VITALS: BP 151/76; PULSE 56; RESP 18; TEMP 37; O2SAT 95
[2024-03-07 08:37] VITALS: BP 151/76
[2024-03-07] MEDS: PARoxetine HCL 10 MG TABLET PO (08:37)
[2024-03-07] MEDS: ARIPiprazole 15 MG TABLET PO (08:37)
[2024-03-07] MEDS: cloNIDine HCL 0.1 MG TABLET PO ×2 (08:37→21:32)
[2024-03-07] MEDS: buPROPion HCl XL 300 MG TAB.ER.24H PO (08:37)
[2024-03-07] MEDS: methADONE HCl 20 MG/2 ML ORAL.CONC 60 MG PO (08:37)
--- NOTE | 2024-03-07 12:47 | P.PNADD_ITS ---
Subjective Subjective Date of Service: 03/07/24 Reason For Visit: acute kidney injury, hyperk Interim History: Patient is a Italian speaking male medically admitted with rhabdo following brief recurrence with fentanyl and cocaine Patient was discharged from unit on 03/03 and presented to ED on 03/04. He is currently prescribed methadone 60mg daily and reports he was connected to [facility] in [place] He was seen by line painting machine operator on 03/06 and he was requesting increase in methadone dose Today patient is seen in room 478. Patient awake, alert, soft spoken, but engaged in interview. He reports ongoing cravings for opiates and would like to titrate dose. He denies any withdrawal sx He does report abdominal discomfort, which is chronic in nature and related to his Chrons. Review of Systems Constitutional: Reports as per HPI and Reports no additional constitutional complaints Mental Status Exam Mental Status Exam Patient Appearance: Appropriate Level of Consciousness: Awake, Appropriate and Alert Patient Behavior: Appropriate and Guarded Mood Description: Blunted Affect Description: Blunted Speech Pattern: Clear Diagnostics Vital Signs (24Hr): Vital Signs - 24 hr 03/06/24 15:19 03/07/24 03:25 03/07/24 07:44 Temperature 98.3 F 98.6 F Pulse Rate 65 56 Respiratory Rate 16 19 18 Blood Pressure 108/65 151/76 H Pulse Oximetry 97 95 Oxygen Delivery Method Room Air Room Air 03/07/24 08:37 Temperature Pulse Rate Respiratory Rate Blood Pressure 151/76 H Pulse Oximetry Oxygen Delivery Method BMI result Body Mass Index 23.5 Labs 03/04/24 21:43 03/06/24 08:06 Labs: Laboratory Results - last 48 hr 03/06/24 08:06 Sodium 141 Potassium 3.9 D Chloride 108 Carbon Dioxide 23 Anion Gap 14 BUN 12 Creatinine 0.77 Estim Creat Clear Calc 120.8 Estimated GFR > 60 Random Glucose 86 Calcium 9.0 D Total Creatine Kinase 1617 H Imaging Radiology Impressions: ITS Impressions Abdomen/Pelvis CT 03/04/24 23:25 IMPRESSION: Status post subtotal colectomy with ileosigmoid anastomosis. There are dilated distal small bowel loops up to the anastomosis measuring up to 3.2 cm. The stomach is markedly dilated. Findings can be seen with small bowel obstruction/ileus. Fleischner guidelines were followed. These results were discussed with Elmer LEBLANC by telephone on 03/04/2024 at 12:48 AM and it was ascertained that the content of the report was understood at the time of direct communication. Electronically signed by: Elidia Krishnamurthy DO 03/05/2024 12:52 AM [facility] Medications Medications Current Medications Acetaminophen (Acetaminophen 325 Mg Tablet) 975 mg PO Q6H PRN PRN Reason: Pain, Mild (Pain Scale 1-3), fever or headache Last Admin: 03/06/24 16:09 Dose: 975 mg Aripiprazole (Aripiprazole 15 Mg Tablet) 15 mg PO DAILY [facility] Last Admin: 03/07/24 08:37 Dose: 15 mg Bupropion HCl (Bupropion Hcl Xl 300 Mg Tab.Er.24h) 300 mg PO DAILY [facility] Last Admin: 03/07/24 08:37 Dose: 300 mg Calcium Carbonate (Calcium Carbonate 750 Mg Tab.Chew) 750 mg PO Q4H PRN PRN Reason: Heartburn Clonidine HCl (Clonidine Hcl 0.1 Mg Tablet) 0.1 mg PO BID [facility]; Protocol Last Admin: 03/07/24 08:37 Dose: 0.1 mg Enoxaparin Sodium (Enoxaparin Sodium 40 Mg/0.4 Ml Syringe) 40 mg SUBCUT Q24H [facility] Last Admin: 03/07/24 08:38 Dose: Not Given Loperamide HCl (Loperamide Hcl 2 Mg Capsule) 4 mg PO Q12H PRN PRN Reason: Loose Stool Last Admin: 03/07/24 05:16 Dose: 4 mg Methadone HCl (Methadone Hcl 20 Mg/2 Ml Oral.Conc) 60 mg PO DAILY@0800 [facility] Last Admin: 03/07/24 08:37 Dose: 60 mg Paroxetine HCl (Paroxetine Hcl 10 Mg Tablet) 10 mg PO DAILY [facility] Last Admin: 03/07/24 08:37 Dose: 10 mg Psyllium Hydrophilic Mucilloid (Psyllium Seed 3.7 Gm Packet) 3.7 gm PO BEDTIME [facility] Last Admin: 03/06/24 20:03 Dose: Not Given Sodium Chloride (0.9 % Sodium Chloride Flush 3 Ml Syringe) 3 ml IVFLUSH QSHIFT [facility] Last Admin: 03/07/24 08:38 Dose: Not Given Allergies Allergies Allergy/AdvReac Type Severity Reaction Status Date / Time haloperidol [From Haldol] AdvReac see note Verified 03/04/24 20:35 Assessment & Plan Assessment & Plan (1) Opioid use disorder, severe, dependence: Status: Acute Code(s): F11.20 - Opioid dependence, uncomplicated Assessment and Plan: * methadone increase from 60mg to 65mg * per patient, he is connected to [facility] and would like to return there following discharge * pending crisis evaluation Total time managing care of this patient today __20__ minutes.
[2024-03-07] MEDS: 0.9 % Sodium Chloride Flush 3 ML SYRINGE IVFLUSH (15:43)
[2024-03-07 16:00] VITALS: BP 147/78; PULSE 52; RESP 20; TEMP 36.7; O2SAT 96
--- NOTE | 2024-03-07 17:01 | P.PNIM_ITS ---
Subjective Subjective Date of Service: 03/07/24 Interval History: rhabdomylysis Review of Systems seems improving has still soraness Physical Exam 2 Vital Signs: Vital Signs: Last Vital Signs Temp 98.6 F 03/07/24 07:44 Pulse 56 03/07/24 07:44 Resp 18 03/07/24 07:44 BP 151/76 H 03/07/24 08:37 Pulse Ox 95 03/07/24 07:44 O2 Del Method Room Air 03/07/24 07:44 BMI result Body Mass Index 23.5 Gen: in no acute distress Lungs: clear to auscultation bilaterally Heart: regular rate and rhythm. Abd: soft, non-tender, non-distended, colostomy pink Ext: no edema Skin: warm/well-perfused Neuro: alert and oriented x3, no focal findings Psych: restricted affect Objective Data Active Medications Acetaminophen (Acetaminophen 325 Mg Tablet) 975 mg PO Q6H PRN PRN Reason: Pain, Mild (Pain Scale 1-3), fever or headache Last Admin: 03/06/24 16:09 Dose: 975 mg Documented By: CRISTINA Aripiprazole (Aripiprazole 15 Mg Tablet) 15 mg PO DAILY [facility] Last Admin: 03/07/24 08:37 Dose: 15 mg Documented By: CRISTINA Bupropion HCl (Bupropion Hcl Xl 300 Mg Tab.Er.24h) 300 mg PO DAILY [facility] Last Admin: 03/07/24 08:37 Dose: 300 mg Documented By: CRISTINA Calcium Carbonate (Calcium Carbonate 750 Mg Tab.Chew) 750 mg PO Q4H PRN PRN Reason: Heartburn Clonidine HCl (Clonidine Hcl 0.1 Mg Tablet) 0.1 mg PO BID [facility]; Protocol Last Admin: 03/07/24 08:37 Dose: 0.1 mg Documented By: CRISTINA Enoxaparin Sodium (Enoxaparin Sodium 40 Mg/0.4 Ml Syringe) 40 mg SUBCUT Q24H [facility] Last Admin: 03/07/24 08:38 Dose: Not Given Documented By: CRISTINA Non-Admin Reason: Patient Refused Loperamide HCl (Loperamide Hcl 2 Mg Capsule) 4 mg PO Q12H PRN PRN Reason: Loose Stool Last Admin: 03/07/24 15:47 Dose: 4 mg Documented By: CRISTINA Methadone HCl (Methadone Hcl 20 Mg/2 Ml Oral.Conc) 65 mg PO DAILY@0800 [facility] Paroxetine HCl (Paroxetine Hcl 10 Mg Tablet) 10 mg PO DAILY [facility] Last Admin: 03/07/24 08:37 Dose: 10 mg Documented By: CRISTINA Psyllium Hydrophilic Mucilloid (Psyllium Seed 3.7 Gm Packet) 3.7 gm PO BEDTIME [facility] Last Admin: 03/06/24 20:03 Dose: Not Given Documented By: BINU Non-Admin Reason: Patient Refused Sodium Chloride (0.9 % Sodium Chloride Flush 3 Ml Syringe) 3 ml IVFLUSH QSHIFT [facility] Last Admin: 03/07/24 15:43 Dose: 3 ml Documented By: CRISTINA Labs 03/04/24 21:43 03/06/24 08:06 Assessment and Plan (1) Suicidal ideation: Status: Acute Plan 49/m with polysubstance abuse with habitual drug use, frequent Psych admission, 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 -continue methadone -addiction med consult Depression/Suicidal ideation. -1:1 observation -care team consult when medically cleared -Continue his home medications: bupropion, aripiprazole, and paroxetine. Abnormal abdominal/pelvic CT scan with findings possibly suggestive of small bowel obstruction or ileus. However, the patient has not reported vomiting or constipation. He does experience chronic abdominal pain and has had small amounts of diarrhea. His diet will be advanced as tolerated. History of Crohn's disease, status post subtotal colectomy with ileosigmoid anastomosis. There is no evidence of acute exacerbation at this time. lovenox for dvt prophylaxis Quality Stroke Does the patient have a stroke diagnosis?: No VTE Prior VTE?: No VTE Risk Level:: Medical - moderate - high VTE Device Contraindication: Treatment Not Indicated VTE Drug Contraindication: N/A - Med Ordered
[2024-03-07 18:04] LABS: Anion Gap 17 (12-20); Blood Urea Nitrogen 7 mg/dL (9-16); Calcium 9.9 mg/dL (8.4-10.2); Carbon Dioxide 23 mmol/L (22-29); Chloride 105 mmol/L (96-108); Creatinine Clr Calc Pharmacy 116.3; Estimated Glomerular Filt Rate > 60; Glucose Random 70 mg/dL (60-115); Potassium 4.6 mmol/L (3.3-5.1); Sodium 140 mmol/L (135-145)
[2024-03-07 20:00] VITALS: BP 162/89; PULSE 50; RESP 18; TEMP 36.3; O2SAT 97
[2024-03-08 06:31] VITALS: BP 160/84; RESP 57; TEMP 36.7; O2SAT 98
[2024-03-08] MEDS: cloNIDine HCL 0.1 MG TABLET PO ×2 (06:33→22:28)
--- NOTE | 2024-03-08 06:36 | PC.NURSE ---
pt informed staff that his thoughts of SI are worse this am. Reports he is hearing voices at this time and he wants to leave. Requesting medication for anxiety. MD notified and authorization given to administer clonidine scheduled for 0900 at this time. 1:[address] Explained to patient he is unable to leave at this time due to safety concerns. Pt agreeable and resting in bed at this time.
[2024-03-08 08:00] VITALS: BP 138/84; PULSE 46; RESP 20; TEMP 36.7; O2SAT 98
[2024-03-08] MEDS: methADONE HCl 20 MG/2 ML ORAL.CONC 65 MG PO (08:32)
[2024-03-08] MEDS: ARIPiprazole 15 MG TABLET PO (09:34)
[2024-03-08] MEDS: PARoxetine HCL 10 MG TABLET PO (09:34)
[2024-03-08] MEDS: buPROPion HCl XL 300 MG TAB.ER.24H PO (09:34)
[2024-03-08] MEDS: 0.9 % Sodium Chloride Flush 3 ML SYRINGE IVFLUSH (09:34)
--- NOTE | 2024-03-08 14:33 | MHC.CM.PN ---
Pt was medically cleared for DC, CM spoke with him about where he was going from here, he said I am going to buy a lot of drugs and kill myself . CM informed MD, Care team to re-eval.
--- NOTE | 2024-03-08 15:46 | P.PNIM_ITS ---
Subjective Subjective Date of Service: 03/08/24 Interval History: rhabdomylysis Review of Systems imrpoved still says si Physical Exam 2 Vital Signs: Vital Signs: Last Vital Signs Temp 98.0 F 03/08/24 08:00 Pulse 46 L 03/08/24 08:00 Resp 20 03/08/24 08:00 BP 138/84 03/08/24 08:00 Pulse Ox 98 03/08/24 08:00 O2 Del Method Room Air 03/08/24 08:00 BMI result Body Mass Index 23.5 Gen: in no acute distress Lungs: clear to auscultation bilaterally Heart: regular rate and rhythm. Abd: soft, non-tender, non-distended, colostomy pink Ext: no edema Skin: warm/well-perfused Neuro: alert and oriented x3, no focal findings Psych: restricted affect Objective Data Active Medications Acetaminophen (Acetaminophen 325 Mg Tablet) 975 mg PO Q6H PRN PRN Reason: Pain, Mild (Pain Scale 1-3), fever or headache Last Admin: 03/06/24 16:09 Dose: 975 mg Documented By: CRISTINA Aripiprazole (Aripiprazole 15 Mg Tablet) 15 mg PO DAILY [facility] Last Admin: 03/08/24 09:34 Dose: 15 mg Documented By: DANILO Bupropion HCl (Bupropion Hcl Xl 300 Mg Tab.Er.24h) 300 mg PO DAILY [facility] Last Admin: 03/08/24 09:34 Dose: 300 mg Documented By: DANILO Calcium Carbonate (Calcium Carbonate 750 Mg Tab.Chew) 750 mg PO Q4H PRN PRN Reason: Heartburn Clonidine HCl (Clonidine Hcl 0.1 Mg Tablet) 0.1 mg PO BID [facility]; Protocol Last Admin: 03/08/24 06:33 Dose: 0.1 mg Documented By: LIDYA Enoxaparin Sodium (Enoxaparin Sodium 40 Mg/0.4 Ml Syringe) 40 mg SUBCUT Q24H [facility] Last Admin: 03/08/24 09:33 Dose: Not Given Documented By: DANILO Non-Admin Reason: Patient Refused Loperamide HCl (Loperamide Hcl 2 Mg Capsule) 4 mg PO Q12H PRN PRN Reason: Loose Stool Last Admin: 03/07/24 15:47 Dose: 4 mg Documented By: CRISTINA Methadone HCl (Methadone Hcl 20 Mg/2 Ml Oral.Conc) 65 mg PO DAILY@0800 [facility] Last Admin: 03/08/24 08:32 Dose: 65 mg Documented By: DANILO Co-signed By: STACEY Paroxetine HCl (Paroxetine Hcl 10 Mg Tablet) 10 mg PO DAILY [facility] Last Admin: 03/08/24 09:34 Dose: 10 mg Documented By: DANILO Psyllium Hydrophilic Mucilloid (Psyllium Seed 3.7 Gm Packet) 3.7 gm PO BEDTIME [facility] Last Admin: 03/07/24 21:34 Dose: Not Given Documented By: LIDYA Non-Admin Reason: Patient Refused Sodium Chloride (0.9 % Sodium Chloride Flush 3 Ml Syringe) 3 ml IVFLUSH QSHIFT [facility] Last Admin: 03/08/24 09:34 Dose: 3 ml Documented By: DANILO Labs 03/04/24 21:43 03/07/24 17:36 Labs: Laboratory Results - last 24 hr 03/07/24 03/07/24 17:36 17:36 Anion Gap 17 Estim Creat Clear Calc 116.3 Estimated GFR > 60 Random Glucose 70 Calcium 9.9 D Total Creatine Kinase 632 H Cancelled Assessment and Plan (1) Suicidal ideation: Status: Acute Plan 49/m with polysubstance abuse with habitual drug use, frequent Psych admission, 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 Polysubstance abuse. -continue methadone -addiction med consult Depression/Suicidal ideation. -1:1 observation -care team consult when medically cleared -Continue his home medications: bupropion, aripiprazole, and paroxetine. seen by care team -recomended psych eval for dispo. Abnormal abdominal/pelvic CT scan with findings possibly suggestive of small bowel obstruction or ileus. However, the patient has not reported vomiting or constipation. He does experience chronic abdominal pain and has had small amounts of diarrhea. His diet will be advanced as tolerated. History of Crohn's disease, status post subtotal colectomy with ileosigmoid anastomosis. There is no evidence of acute exacerbation at this time. lovenox for dvt prophylaxis dispo -need psych eval Quality Stroke Does the patient have a stroke diagnosis?: No VTE Prior VTE?: No VTE Risk Level:: Medical - moderate - high VTE Device Contraindication: Treatment Not Indicated VTE Drug Contraindication: N/A - Med Ordered
[2024-03-08 16:00] VITALS: BP 162/87; PULSE 52; RESP 18; TEMP 37; O2SAT 99
[2024-03-08 20:00] VITALS: BP 144/94; PULSE 62; RESP 18; TEMP 36.6; O2SAT 97
[2024-03-08 22:28] VITALS: BP 150/97
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
[2024-03-09 09:15] VITALS: BP 136/84; PULSE 81; RESP 16; TEMP 36.7; O2SAT 96
[2024-03-09] MEDS: methADONE HCl 20 MG/2 ML ORAL.CONC 65 MG PO (09:16)
[2024-03-09] MEDS: PARoxetine HCL 10 MG TABLET PO (09:17)
[2024-03-09] MEDS: buPROPion HCl XL 300 MG TAB.ER.24H PO (09:17)
[2024-03-09] MEDS: ARIPiprazole 15 MG TABLET PO (09:17)
[2024-03-09] MEDS: cloNIDine HCL 0.1 MG TABLET PO (09:17)
[2024-03-09] MEDS: 0.9 % Sodium Chloride Flush 3 ML SYRINGE IVFLUSH (09:17)
--- NOTE | 2024-03-09 11:01 | P.DS_ITS ---
DS: Providers Provider Date of Service: 03/09/24 Date of admission: 03/05/24 01:01 Date of discharge: 03/09/24 Primary care physician: Clotilde Nguyen MD Consults: 03/05/24 02:39 Addiction Medicine Routine Consulting Provider: Addiction Covering Reason for consultation: Ongoing polysubstance abuse Has provider been notified: No 03/06/24 12:35 Consult to Care Team Routine Comment: Reason for consultation: SI, medically ready for dishcarge 03/08/24 10:33 Consult to Care Team Stat Comment: Reason for consultation: Si 03/08/24 12:24 Consult to Psychiatry Routine Consulting Provider: Psych Covering Reason for consultation: psych input for dispo-depression/si Has provider been notified: No Attending physician on discharge: Ray Dawn Discharging clinician: Ray Dawn DS: Diagnosis Discharge Diagnosis (1) Personality disorder: Status: Acute (2) Mood disorder: Status: Acute (3) Homeless: Status: Acute (4) Opioid use disorder, severe, dependence: Status: Acute DS: Summary Hospital Course Hospital Course: hpi:49 years old man with past medical history significant for multiple psychiatric hospitalization due to SI, rhabdomyolysis, ongoing depression, PTSD, polysubstance abuse (IVDU), recent hospitalization under psychiatric service (discharged March 03) and Crohn's disease (s/p status post subtotal colectomy with ileosigmoid anastomosis) who was brought to the emergency department via EMS for suicide ideation with plan to overdose with heroin, crack/cocaine. On evaluation, the patient did not want to provide his HPI and was annoyed by my questions. He was informed that he will be hospitalized under hospitalist service due to acute kidney failure secondary to drug abuse. He understood and I removed myself from the room. According to ED provider, the patient told him that he has not been eating or drinking for the last 4 days and was complaining of left lower quadrant pain. No symptoms other symptoms such as nausea or vomiting. He did report some mild diarrhea. No fevers chills reported. In the ED, he was found to have normal vital signs. Blood workup is remarkable for mild leukocytosis of 11.0, hemoglobin of 12.8 and normal platelets. INR is 1.2. There is hyperkalemia of 5.3, hyperchloremia 109 CO2 of 20 anion gap of 21 BUN of 44 and creatinine 2.03 (it was 0.98). AST is 112, ALT 30, alk-phos 138 and total CK 5850. UA showed protein 1+, ketones trace, blood 2+, nitrate positive, electrolyte esterase trace and RBC 6-10. Toxicology is positive for opiates, methadone, fentanyl, cocaine and marijuana. ETOH < 10. COVID [address] pelvic [address] scan showed status post subtotal colectomy with ileosigmoid anastomosis, dilated distal small bowel loops up to the anastomosis measuring up to 3.2 cm, markedly dilated stomach findings can be seen with small bowel obstruction/ileus. Hospital course: Patient was admitted to the hospital because of rhabdomyolysis and BERNARD secondary to cocaine use-patient is rhabdomyolysis and BERNARD improved with hydration. Tolerating diet. Strongly advised to abstain from substance use . Strongly advised to hydrate. Mild hyperkalemia (5.3) and high anion gap metabolic acidosis, both thought to be secondary to rhabdomyolysis resolved. Polysubstance abuse. -continue methadone Strongly advised to abstain from substance use ,narcan given for home. Depression/Suicidal ideation. Continue his home medications: bupropion, aripiprazole, and paroxetine. Seen by psych and care team multiple times: Discussed with the patient and patient agreed for voluntary section 35,patient was told to get to court self section 35 ,patient given crisis information. As per psych'' do not recommend inpatient psych admissionas it will not have any significant therapeutic benefit. Pt presents as rather future oriented, advocating for himself to secure warm and safe prison as weather gets colder, which is in opposition with a hopeless and suicidal presentation''. Abnormal abdominal/pelvic CT scan with findings possibly suggestive of small bowel obstruction or ileus. However, the patient has not reported vomiting or constipation. He does experience chronic abdominal pain , tolerating diet ,producing bm's. patient was told to get to court self section 35 ,patient given crisis information. plan: rhabdomyolysis and BERNARD secondary to cocaine use-patient is rhabdomyolysis and BERNARD improved with hydration. Tolerating diet. Strongly advised to abstain from substance use . Strongly advised to hydrate. patient was told to get to court self section 35 ,patient given crisis information. Assessment plan coordination time spent 40 minute. Time Attestation Total time managing care of this patient today: 40 mintues. Discharge Coordination Time (in mins): 40 min Quality: Safe Use of Opioids Does Pt have an Active Cancer Diagnosis on the Problem List?: No Quality: Stroke Does the patient have a stroke diagnosis?: No Physical Exam Vital Signs: Vital Signs: Last Vital Signs Temp 98.1 F 03/09/24 09:15 Pulse 81 03/09/24 09:15 Resp 16 03/09/24 09:15 BP 136/84 03/09/24 09:15 Pulse Ox 96 03/09/24 09:15 O2 Del Method Room Air 03/09/24 09:15 BMI result Body Mass Index 23.5 Gen: in no acute distress Lungs: clear to auscultation bilaterally Heart: regular rate and rhythm. Abd: soft, non-tender, non-distended, colostomy pink Ext: no edema Skin: warm/well-perfused Neuro: alert and oriented x3, no focal findings Psych: restricted affect DS: Data Data Completed and Pending Completed studies during hospitalization [Text1]: Procedures Bypass Sigmoid Colon to Cutaneous, Open Approach (09/23/22) Excision of Descending Colon, Via Natural or Artificial Opening Endoscopic, Diagnostic (01/02/21) Excision of Sigmoid Colon, Open Approach (09/23/22) Excision of Sigmoid Colon, Via Natural or Artificial Opening Endoscopic, Diagnostic (01/02/21) Insertion of Infusion Device into Right Brachial Vein, Percutaneous Approach ( 05/16/22) Insertion of Infusion Device into Superior Vena Cava, Percutaneous Approach (08/10/22) Other Electroconvulsive Therapy (05/16/22) Release Peritoneum, Open Approach (09/23/22) Ultrasonography of Superior Vena Cava, Guidance (08/10/22) Imaging Chest x-ray: Radiologist's impression: ITS Impressions Abdomen/Pelvis CT 03/04/24 23:25 IMPRESSION: Status post subtotal colectomy with ileosigmoid anastomosis. There are dilated distal small bowel loops up to the anastomosis measuring up to 3.2 cm. The stomach is markedly dilated. Findings can be seen with small bowel obstruction/ileus. Fleischner guidelines were followed. These results were discussed with Elmer LEBLANC by telephone on 03/04/2024 at 12:48 AM and it was ascertained that the content of the report was understood at the time of direct communication. Electronically signed by: Elidia Krishnamurthy DO 03/05/2024 12:52 AM [facility] Discharge Plan Discharge Anticipated Discharge Date/Time: 03/09/24 10:52 Patient Disposition: Home, Self-Care Discharge Diagnosis: rhabdomylysis ,bernard Referrals: Clotilde Baca MD [Primary Care Provider] - 1 Week Discharge Medications: Continued aripiprazole 15 mg Tablet 15 mg PO DAILY 30 Days Qty: 30 0RF Hydrocil Instant Packet 1 packet PO BEDTIME 30 Days Qty: 30 0RF loperamide 2 mg Capsule 4 mg PO Q12H PRN (Reason: Loose Stool) 14 Days Qty: 56 0RF paroxetine HCl 10 mg Tablet 10 mg PO DAILY 30 Days Qty: 30 0RF clonidine HCl 0.1 mg Tablet 0.1 mg PO BID 30 Days Qty: 60 0RF Protocol: Hold for SBP< HOLD for SBP < : 90 bupropion HCl 300 mg tablet extended release 24 hr 300 mg PO DAILY 30 Days Qty: 30 0RF methadone 10 mg/mL Concentrate 50 mg PO DAILY Discharge Orders: Discharge Order (Routine); Ordered 03/09/24 Ordered By: Ray Dawn Diet: Advance to usual diet Activity on Discharge: As tolerated Stand Alone Forms: Patient Portal Discharge page Print Language: Tajik Care Plan Goals: Patient was admitted to the hospital because of rhabdomyolysis and BERNARD secondary to cocaine use-patient is rhabdomyolysis and BERNARD improved with hydration. Tolerating diet. Strongly advised to abstain from substance use . Strongly advised to hydrate. patient was told to get to court self section 35 ,patient given crisis information. Health Concerns: as above. Plan of Treatment: as above. Assessment: as above.
[2024-03-09] MEDS: Naloxone HCl Nasal TAKE HOME 4 MG SPRAY 8 MG NOSTRILALT (11:08)
--- NOTE | 2024-03-09 11:08 | MHC.CM.PN ---
Pt has been medically cleared for DC, his DCP is self care, psychiatry rec that he go to the court and pursue getting a section 35.
[2024-03-09] MEDS: Acetaminophen 325 MG TABLET 975 MG PO (11:09)
--- NOTE | 2024-03-09 12:26 | PC.NURSE ---
patient given naloxone to take home with him upon discharge along with last dose of methadone letter. Patient escorted with security to be discharged.
== END 2024-03-09 11:28 | disposition home or self-care (01) | DRG 816 ==
LOC: HO.ED 23:27 → HO.EDOVER 03-05 01:53 → HO.IMC 03-05 03:27
PROVIDERS: Internal Medicine; Physician Assistant; Admitting Provider Internal Medicine; Emergency Provider Internal Medicine; PCP Internal Medicine; Visit Provider Internal Medicine
DX: T40.5X1A Poisoning by cocaine, accidental (unintentional), initial encounter (principal); N17.9 Acute kidney failure, unspecified; R45.851 Suicidal ideations; K56.7 Ileus, unspecified; M62.82 Rhabdomyolysis; F43.10 Post-traumatic stress disorder, unspecified; F11.20 Opioid dependence, uncomplicated; F60.9 Personality disorder, unspecified; E87.5 Hyperkalemia; F19.10 Other psychoactive substance abuse, uncomplicated; F17.210 Nicotine dependence, cigarettes, uncomplicated; F32.A Depression, unspecified; K50.90 Crohn's disease, unspecified, without complications; Z98.0 Intestinal bypass and anastomosis status; Z59.02 Unsheltered homelessness; Z71.6 Tobacco abuse counseling; Z20.822 Contact with and (suspected) exposure to COVID-19; Z79.899 Other long term (current) drug therapy
CPT/HCPCS: 36415; 74176; 80048; 80053; 80143; 80179; 80307; 81001; 82550; 83735; 85025; 87635; 93005; 99285; J1650; J7120; S9485

== ENCOUNTER → 2024-03-04 20:49 | Outpatient (BNV) | payer MEDICAID, SELFPAY | PROVIDERS: Admitting Provider Internal Medicine; Emergency Provider Internal Medicine; Visit Provider Internal Medicine Cardiovascular Disease | DX: R41.82 Altered mental status, unspecified (principal); R94.31 Abnormal electrocardiogram [ECG] [EKG] | CPT/HCPCS: 93010 ==

== ENCOUNTER → 2024-03-05 01:01 | Outpatient (BNV) | payer MEDICAID, SELFPAY | PROVIDERS: Admitting Provider Internal Medicine; Emergency Provider Internal Medicine; PCP Internal Medicine; Visit Provider Nurse Practitioner Psychiatric/Mental Health | DX: F11.20 Opioid dependence, uncomplicated (principal) | CPT/HCPCS: 99232 ==

== ENCOUNTER → 2024-03-05 01:01 | Outpatient (BNV) | payer OTHER, SELFPAY | PROVIDERS: Admitting Provider Internal Medicine; Emergency Provider Internal Medicine; PCP Internal Medicine; Visit Provider Social Worker | DX: F60.9 Personality disorder, unspecified (principal); F39 Unspecified mood [affective] disorder; F11.20 Opioid dependence, uncomplicated; Z59.00 Homelessness unspecified | CPT/HCPCS: 99232 ==

== ENCOUNTER → 2024-03-05 01:01 | Outpatient (BNV) | payer MEDICAID, SELFPAY | PROVIDERS: Admitting Provider Internal Medicine; Emergency Provider Internal Medicine; Visit Provider Internal Medicine | DX: F60.9 Personality disorder, unspecified (principal); F39 Unspecified mood [affective] disorder; Z59.00 Homelessness unspecified; F11.20 Opioid dependence, uncomplicated | CPT/HCPCS: 99223; 99231; 99232; 99239; 99499 ==

== ENCOUNTER 2024-04-17 11:48 | Outpatient (AMB) | payer MEDICAID, SELFPAY ==
[2024-04-17 12:08] VITALS: BP 125/73; PULSE 56; BMI 24.2
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
== END 2024-04-17 13:03 | disposition home or self-care (01) ==
PROVIDERS: PCP Internal Medicine; Visit Provider Internal Medicine
DX: K52.9 Noninfective gastroenteritis and colitis, unspecified (principal); K50.90 Crohn's disease, unspecified, without complications; Z59.00 Homelessness unspecified; F11.20 Opioid dependence, uncomplicated; F33.3 Major depressive disorder, recurrent, severe with psychotic symptoms
CPT/HCPCS: 99214

== ENCOUNTER → 2024-04-17 11:48 | Outpatient (BNVA) | payer MEDICAID, SELFPAY | PROVIDERS: PCP Internal Medicine; Visit Provider Internal Medicine | DX: K50.90 Crohn's disease, unspecified, without complications (principal); K52.9 Noninfective gastroenteritis and colitis, unspecified; R10.32 Left lower quadrant pain; F11.20 Opioid dependence, uncomplicated; Z59.00 Homelessness unspecified | CPT/HCPCS: 99212 ==

== ENCOUNTER 2024-05-27 07:50 | Inpatient (IN) | payer OTHER, SELFPAY ==
--- NOTE | ~2024-05-27 | CT_ITS ---
CLINICAL HISTORY: abd pain CT abdomen and pelvis with contrast Comparison: CT - CT ABDOMEN PELVIS W IV CON - 05/27/24 09:38 EST Findings: No consolidation or effusion. The gallbladder and solid organs are within normal limits. No renal stones. The patient is status post Subtotal colectomy with primary anastomosis at the sigmoid colon. The rectosigmoid colon is distended without evidence of mechanical obstruction. There is colonic wall thickening involving the distal sigmoid and rectum suggestive of colitis. The rest of the bowel is unremarkable. An IVC filter is present. Pelvic contents unremarkable. Normal appendix. The bones are intact. IMPRESSION: Status post colectomy with primary anastomosis at the sigmoid. Findings compatible with rectosigmoid colitis. This document has been electronically signed by: Ashvin Hurtado MD on 05/27/2024 10:49:04
[2024-05-27 07:52] VITALS: BP 136/83; BP 143/92; PULSE 78; PULSE 82; RESP 18; TEMP 37.1; O2SAT 97; O2SAT 98; BMI 25.1
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
--- OUTSIDE RECORDS SUMMARY | 2024-05-27 08:21 | XMS_ITS | Clinical Summary ---
Author Organization [facility] it Address [address] [place] [address] Care Team Providers Care Framing Inspector Name Role Phone Unavailable Primary Care Provider Unavailabl e Social History Tobacco Use Types Packs/Day Years Used Date Smoking Tobacco: Never Assessed Sex and Gender Information Value Date Recorded Sex Assigned at Not on file Gender Identity Not on file Sexual Orientation Not on file Plan of Treatment Health Maintenance Due Date Last Done Comments DTaP,Tdap,and Td Vaccines (1 - Tdap) 01/13/1992 Hepatitis B Vaccines (1 of 3 - 19+ 3-dose series) 01/13/1992 Cholesterol Screening (Lipid Panel) 03/24/2022 Colorectal Cancer Screening: Colonoscopy 03/24/2022 Depression Screening 03/24/2022 HIV Screening 03/24/2022 Hepatitis C Screening 03/24/2022 Social Influencers of Health Screening 03/24/2022 Zoster Vaccines (1 of 2) 2023 COVID-19 Vaccine (2023-2 5 season) 2023 Influenza Vaccine (#1) 2023 HIB Vaccines Aged Out No longer eligi ble based on patient's age to complete this topic HPV Vaccines Aged Out No longer eligi ble based on patient's age to complete this topic Hepatitis A Vaccines Aged Out No long er eligible based on patient's age to complete this topic IPV Vaccines Aged Out No longer eligi ble based on patient's age to complete this topic MMR Vaccines Aged Out No longer eligi ble based on patient's age to complete this topic Meningococcal ACWY Vaccine Aged Out N o longer eligible based on patient's age to complete this topic Pneumococcal Vaccine: Pediat rics (0 to 5 Years) and At-Risk Patients (6 to 64 Years) Aged Out No longer eligible b ased on patient's age to complete this topic RSV Immunization Patients Un kunal 20 months Aged Out No longer eligible b ased on patient's age to complete this topic Varicella Vaccines Aged Out No longer eligible based on patient's age to complete this topic Advance Directives Documents on File Type Date Recorded Patient Locker Room Manager Expl anation Health Care Decision (hx) 02/03/2013 AD BENAVIDEZ DIRECTIVE Health Care Decision (hx) 02/03/2013 AD BENAVIDEZ DIRECTIVE Health Care Decision (hx) 02/03/2013 AD BENAVIDEZ DIRECTIVE Health Care Decision (hx) 02/03/2013 AD BENAVIDEZ DIRECTIVE Health Care Decision (hx) 02/03/2013 AD BENAVIDEZ DIRECTIVE Health Care Decision (hx) 02/03/2013 AD BENAVIDEZ DIRECTIVE Health Care Decision (hx) 01/27/2013 AD BENAVIDEZ DIRECTIVE Health Care Decision (hx) 01/27/2013 AD BENAVIDEZ DIRECTIVE Health Care Decision (hx) 01/27/2013 AD BENAVIDEZ DIRECTIVE Health Care Decision (hx) 01/27/2013 AD BENAVIDEZ DIRECTIVE Health Care Decision (hx) 01/27/2013 AD BENAVIDEZ DIRECTIVE Health Care Decision (hx) 01/27/2013 AD BENAVIDEZ DIRECTIVE
--- NOTE | 2024-05-27 08:51 | PC.NURSE ---
pt bib[place] from motel c/o SI w/o a plan. denies HI/AV/VH/ETOH. hx substance use - last used $20 worth of coke intranasally. denies recent IVDU. pt also reporting generalized abd pain w/o associated n/v/d/fevers/chills. unable to have a BM x 1 week. was told he had a bowel obstruction at [facility] last wednesday. scheduled for surgery last wednesday but did not go d/t them not having his identity management developer at the facility. upon ED arrival - a&ox4. vss and up to date. pt c/o 02/02 generalized abd pain. pt seen by ED provider/aware of plan of care moving forward. 20gIV placed in the wrist - labs obtained/sent to lab. pt waiting to go to CT at this time. pt changed over - belongings placed in [facility] closet shelf #2. on RA w/o difficulty. no sob/wob noted. respirations even/unlabored. 1:1 sitter present. plan of care ongoing. call [facility] placed within reach.
[2024-05-27 08:52] LABS: MANUAL DIFF FLAG NO
[2024-05-27 08:54] LABS: Basophils Percent Auto 0.5 % (0-2); Hematocrit 41.5 % (42.0-52.0); Hemoglobin 13.6 g/dl (14.0-18.0); Imm Gran Abs Auto 0.03 X10*3/uL (0.00-0.03); Imm Gran Pct Auto 0.3 % (0.0-0.4); Lymphocytes Absolute Auto 1.2 X10*3/uL (1.2-4.9); Mean Corpuscular HGB Conc 32.8 g/dl (31.0-36.0); Mean Corpuscular Hemoglobin 27.8 pg (27.0-33.0); Mean Corpuscular Volume 84.9 fL (80.0-98.0); Mean Platelet Volume 9.2 fL (9.4-12.4); Monocytes Absolute Auto 0.5 X10*3/uL (0.1-1.2); Monocytes Percent Auto 6.1 % (2-11); Neutrophils Absolute Auto 6.9 x10*3/uL (2.0-8.3); Neutrophils Percent Auto 79.1 % (45-73); Platelet Count 309 X10*3/uL (160-400); Red Blood Count 4.89 X10*6/uL (4.60-5.80); Red Cell Distribution Width 16.3 % (11.0-16.0); White Blood Count 8.7 X10*3/uL (4.8-10.8)
[2024-05-27 09:09] LABS: Ethanol < 10 mg/dL
[2024-05-27 09:12] LABS: Acetaminophen LAB < 3 mcg/mL (<30); Alanine Aminotransferase 24 U/L (0-40); Albumin Level 4.4 g/dL (3.5-5.0); Alkaline Phosphatase 126 U/L (39-117); Anion Gap 14 (12-20); Aspartate Amino Transferase 32 U/L (5-37); Bilirubin Direct 0.2 mg/dL (0.0-0.5); Bilirubin Total 0.6 mg/dL (0.0-1.0); Blood Urea Nitrogen 24 mg/dL (9-16); Calcium 9.6 mg/dL (8.4-10.2); Carbon Dioxide 21 mmol/L (22-29); Chloride 115 mmol/L (96-108); Creatinine Clr Calc Pharmacy 122.4; Estimated Glomerular Filt Rate > 60; Glucose Random 92 mg/dL (60-115); Lipase 26 U/L (8-78); Magnesium 2.2 mg/dL (1.6-2.6); Salicylate < 5.0 mg/dL (15-30); Sodium 146 mmol/L (135-145); Total Protein 8.5 g/dL (6.5-8.0)
[2024-05-27] MEDS: iohexoL 350 MG/ML 100 ML INFUS..BTL IV (09:46)
[2024-05-27 10:05] VITALS: BP 137/85; PULSE 55; RESP 16; TEMP 36.4; O2SAT 99
--- NOTE | 2024-05-27 10:06 | PC.NURSE ---
pt requesting IVF d/t the fact that he is NPO so he is able to obtain urine a sample. pt then able to provide urine specimen. urine sent to lab. pt then refused IVF administration.
[2024-05-27 10:13] LABS: Appearance Urine Clear; Color Urine Yellow; Glucose Urine UA Negative (Negative); Leukocyte Esterase Urine Negative (Negative); Nitrite Urine Negative (Negative); PH 5.5 (5.0-9.0); Specific Gravity - Urine >= 1.030 (1.005-1.025); UMIC TRIGGER UACC YES; Urine Blood Small (1+) (Negative); Urine Ketones Negative (Negative); Urine Protein 30 (1+) mg/dL (Neg-Trace)
[2024-05-27 10:21] LABS: Amphetamine Screen Urine Not Detected (Not Detect); Barbiturates, Urine Not Detected (Not Detect); Benzodiazepines Screen Urine Not Detected (Not Detect); Buprenorphine Scr Not Detected (Not Detect); Cannabinoid Screen Urine POSITIVE (Not Detect); Cocaine Screen Urine POSITIVE (Not Detect); Fentanyl, urine Not Detected (Not Detect); Methadone Screen, Urine Not Detected (Not Detect); Opiate Screen Urine Not Detected (Not Detect); Oxycodone Screen Urine Not Detected (Not Detect); Phencyclidine Screen Urine Not Detected (Not Detect)
[2024-05-27 10:26] LABS: Bacteria Urine None Seen (None Seen); Hyaline Casts Urine 0-2 /LPF (0-2); RBC Urine 0-2 /HPF (0-2); Squamous Epithelial Cell Urine 0-2 /HPF (0-2); WBC Urine 0-5 /HPF (0-5)
[2024-05-27] MEDS: Morphine Sulfate 4 MG/ML CARTRIDGE IVPUSH (11:43)
[2024-05-27 12:34] VITALS: BP 132/82
[2024-05-27] MEDS: predniSONE 20 MG TABLET 40 MG PO (12:34)
[2024-05-27] MEDS: cloNIDine HCL 0.1 MG TABLET PO (12:34)
[2024-05-27 18:33] VITALS: BP 122/70; PULSE 70; RESP 14; TEMP 36.8; O2SAT 96
--- NOTE | 2024-05-27 19:45 | PC.NURSE ---
patient appears to remain at rest presently respirations are even and unlabored patient appesrs in no distress.
[2024-05-28 06:11] VITALS: RESP 16
[2024-05-28] MEDS: predniSONE 20 MG TABLET 40 MG PO (09:08)
[2024-05-28] MEDS: Cholestyramine (With Sugar) 4 GM POWD.PACK PO (11:46)
[2024-05-28] MEDS: hydrOXYzine HCL 25 MG TABLET PO (12:10)
[2024-05-28] MEDS: LORazepam 1 MG TABLET PO (12:10)
--- NOTE | 2024-05-28 13:50 | PHA.MEDREC ---
Addendum entered by Aleja Cabral RPh 05/28/24 14:01: [facility] reviewed Original Note: Pharmacy Consult ? Medication Reconciliation Pharmacy has completed the medication reconciliation. Spoke with patient to confirm. He has not taken his medication for about 4 months and has not taken methadone for about a month.
[2024-05-28 18:14] VITALS: BP 139/82; PULSE 67; RESP 14; TEMP 36.8; O2SAT 98
--- NOTE | 2024-05-28 18:40 | PC.NURSE ---
ate dinner, states that his diarrhea has improved after taking the prn med,
--- NOTE | 2024-05-29 | ECG_ITS ---
Test Reason : rule out prolonged QTC Blood Pressure : */* mmHG Vent. Rate : 63 BPM Atrial Rate : 63 BPM P-R Int : 150 ms QRS Dur : 92 ms QT Int : 398 ms P-R-T Axes : 59 8 42 degrees QTcB Int : 407 ms Normal sinus rhythm Normal ECG When compared with ECG of 04-Mar-2024 20:49, Vent. rate has decreased by 31 bpm QT has shortened Referred By: Melissa Kraus Electronically Signed By: Alvaro Schulte
--- NOTE | 2024-05-29 06:08 | PC.NURSE ---
pt slept well throughout the night, symmetrical rise and fall of chest and unlabored respirations noted. pt refused vital signs stated i just want to sleep . pt did not display any behavioral concerns or symptoms of concern. plan of care ongoing
--- NOTE | 2024-05-29 07:07 | PC.NURSE ---
Assumed care of patient at 0645, patient appears to be in no apparent distress this am, ambulating with steady gait around pod, ate breakfast. Patient aware of plan of care for IPLOC
[2024-05-29] MEDS: predniSONE 20 MG TABLET 40 MG PO (08:04)
[2024-05-29] MEDS: hydrOXYzine HCL 25 MG TABLET PO (09:13)
[2024-05-29] MEDS: Ibuprofen 600 MG TABLET PO (10:39)
[2024-05-29] MEDS: Cholestyramine (With Sugar) 4 GM POWD.PACK PO (10:39)
--- NOTE | 2024-05-29 10:41 | PC.NURSE ---
patient reporting 9/10 headache and abdominal pain as well as some diarrhea this am. Requesting Cholestyramine and pain medication. Pt medicated per MAR
[2024-05-29 13:38] VITALS: BP 159/92; PULSE 75; RESP 20; TEMP 36.8; O2SAT 98
[2024-05-29 13:40] VITALS: BMI 23.6
--- NOTE | 2024-05-29 14:53 | PC.ADMIT ---
This is one of multiple admissions for this 49 y.o. male to Behavioral Health at [facility]. Referred by [facility] Care Team with Dx: Unspecified Depressive D/O, Opioid Use D/O Severe, Cocaine Use D/O, Severe. Nurse to nurse done with [facility] ED Pod prior to admission to unit; meds verified while in ED. Arrived on unit at 1330 on [address] and placed on 15 min safety checks. Skin check/climate change risk assessor done upon admission with 2 staff present. Admission orders received from Dr Abdul. Precipitating events to admission: Arrived at [facility] ED via ambulance 05/27/24 due to increased depression, anxiety, SI, command AH telling him to kill himself x2-3 weeks. Upon arrival to ED pt endorsed SI with plan and intent to OD on substances. Currently rates depression and anxiety #10 on scale 1-10( worse). Reports continued command AH telling him to harm self. Denies VH. Reports passive SI with no plan or intent. States he is safe in hospital. Reported in ED that April was tough for him due to it being the anniversary of an ex-girlfriend's . Tox screen positive for marijuana and cocaine, which pt acknowledges us of. Denies current opiate use and states he no longer attends Methadone clinic; no longer prescribed Methadone. Non compliant with meds x 4 months and did not follow-up with prescribers after last discharge. Crisis eval indicates homelessness as stressor, pt shrugged re: this and minimized this as stressor. Medical issues: experienced diarrhea while in ED due to colitis per pt; ED nurse reported good effect from Cholestyramine precribed. Pt questions whether he may have the flu as he is having runny nose/nasal congestion. Dr Abdul notified. Afebrile, no cough noted by staff or reported by pt, denies N/V, no diarrhea reported upon admission to unit, no c/o body aches. Resp panel to be ordered.
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
[2024-05-29 16:19] VITALS: BP 131/83; PULSE 66; TEMP 36.8
[2024-05-29] MEDS: chlorproMAZINE HCl 25 MG TABLET 50 MG PO (16:21)
[2024-05-29] MEDS: cloNIDine HCL 0.1 MG TABLET PO (16:22)
[2024-05-29 20:00] VITALS: BP 100/56; PULSE 70; RESP 16; TEMP 36.9; O2SAT 95
[2024-05-29] MEDS: chlorproMAZINE HCl 100 MG TABLET PO (20:51)
[2024-05-29] MEDS: cloNIDine HCL 0.2 MG TABLET PO (20:52)
[2024-05-30 07:46] VITALS: BP 101/62; PULSE 65; RESP 14; TEMP 36.9; O2SAT 95
[2024-05-30 08:28] VITALS: BP 122/78; PULSE 81
[2024-05-30] MEDS: predniSONE 20 MG TABLET 40 MG PO (08:31)
[2024-05-30] MEDS: buPROPion HCl XL 150 MG TAB.ER.24H PO (08:32)
[2024-05-30] MEDS: cloNIDine HCL 0.1 MG TABLET PO ×2 (08:32→15:28)
[2024-05-30] MEDS: chlorproMAZINE HCl 25 MG TABLET 50 MG PO ×3 (08:32→15:03)
[2024-05-30] MEDS: Acetaminophen 325 MG TABLET 650 MG PO ×2 (08:57→21:02)
[2024-05-30] MEDS: Nicotine Polacrilex 2 MG GUM 4 MG BUCCAL (08:58)
[2024-05-30] MEDS: Nicotine 21 MG PATCH.TD24 TRANSDERMA (10:36)
--- NOTE | 2024-05-30 10:41 | HO.PSYCHPN ---
Subjective Subjective Date of Service: 05/30/24 Reason For Visit: SI/AH Subjective Notes: Conditional Voluntary Interim History: Active on unit. Pt reports feeling anxious, depressed and having voices ; pt stated, the voices are talking badly about me and telling me to kill myself. I'm waiting for the medications to start working . denies HI/VH. He reports suicidal ideation with no plan. Pt states he feels safe here . Continue current tx plan. Medication Compliance: Yes Side effects from medications: No Mental Status Exam Mental Status Exam Patient Appearance: Well Grooomed Patient Orientation: Person, Place, Time and Situation Level of Consciousness: Awake and Alert Patient Behavior: Appropriate and Cooperative Mood Description: Depressed Affect Description: Blunted Ability to Follow Directions: Good Speech Pattern: Clear Memory Description: Intact Hallucinations: Auditory Delusions: Not Present Thought Process: Intact and Goal Oriented Thought Content: positive for Intact Judgement: Poor Diagnostics Vital Signs (24Hr): Vital Signs - 24 hr 05/29/24 13:38 05/29/24 16:19 05/29/24 20:00 Temperature 98.2 F 98.2 F 98.5 F Pulse Rate 75 66 70 Respiratory Rate 20 16 Blood Pressure 159/92 H 131/83 100/56 L Pulse Oximetry 98 95 Oxygen Delivery Method Room Air Room Air 05/30/24 07:46 05/30/24 08:28 Temperature 98.5 F Pulse Rate 65 81 Respiratory Rate 14 Blood Pressure 101/62 122/78 Pulse Oximetry 95 Oxygen Delivery Method Room Air BMI result Body Mass Index 23.6 Labs 05/27/24 08:48 05/27/24 08:48 Medications Medications Current Medications Acetaminophen (Acetaminophen 325 Mg Tablet) 650 mg PO Q6H PRN PRN Reason: Headache/Pain Mild Scale (1-3) Last Admin: 05/30/24 08:57 Dose: 650 mg Al Hydroxide/Mg Hydroxide (Magnesium Hydrox/Alum Hydrox 30 Ml Oral.Susp) 30 ml PO Q6H PRN PRN Reason: Heartburn/Nausea Bupropion HCl (Bupropion Hcl Xl 300 Mg Tab.Er.24h) 300 mg PO DAILY [facility] Bupropion HCl (Bupropion Hcl Xl 150 Mg Tab.Er.24h) 150 mg PO DAILY [facility] Stop: 06/01/24 09:01 Last Admin: 05/30/24 08:32 Dose: 150 mg Chlorpromazine HCl (Chlorpromazine Hcl 25 Mg Tablet) 50 mg PO BID@0900,1500 [facility] Last Admin: 05/30/24 08:32 Dose: 50 mg Chlorpromazine HCl (Chlorpromazine Hcl 100 Mg Tablet) 100 mg PO BEDTIME [facility] Last Admin: 05/29/24 20:51 Dose: 100 mg Chlorpromazine HCl (Chlorpromazine Hcl 25 Mg Tablet) 50 mg PO Q4H PRN PRN Reason: severe anxiety Clonidine HCl (Clonidine Hcl 0.1 Mg Tablet) 0.1 mg PO BID@0900,1500 [facility]; Protocol Last Admin: 05/30/24 08:32 Dose: 0.1 mg Clonidine HCl (Clonidine Hcl 0.2 Mg Tablet) 0.2 mg PO BEDTIME [facility]; Protocol Last Admin: 05/29/24 20:52 Dose: 0.2 mg Hydroxyzine HCl (Hydroxyzine Hcl 25 Mg Tablet) 25 mg PO Q6H PRN PRN Reason: Anxiety Magnesium Hydroxide (Milk Of Magnesia 30 Ml Oral.Susp) 30 ml PO DAILY PRN PRN Reason: Constipation Nicotine (Nicotine 21 Mg Patch.Td24) 21 mg TRANSDERMA DAILY [facility] Last Admin: 05/30/24 10:36 Dose: 21 mg Nicotine Polacrilex (Nicotine Polacrilex 2 Mg Gum) 4 mg BUCCAL Q2H PRN PRN Reason: Nicotine Cravings Last Admin: 05/30/24 08:58 Dose: 4 mg Prednisone (Prednisone 20 Mg Tablet) 40 mg PO DAILY [facility] Stop: 05/31/24 09:00 Last Admin: 05/30/24 08:31 Dose: 40 mg Trazodone HCl (Trazodone Hcl 50 Mg Tablet) 50 mg PO BEDTIME MRX1 PRN PRN Reason: Insomnia Allergies Allergies Allergy/AdvReac Type Severity Reaction Status Date / Time haloperidol [From Haldol] AdvReac see note Verified 05/27/24 07:54 Assessment & Plan Assessment & Plan (1) Colitis: Status: Acute Code(s): K52.9 - Noninfective gastroenteritis and colitis, unspecified (2) Suicide ideation: Status: Acute Code(s): R45.851 - Suicidal ideations (3) Mood disorder: Status: Acute Code(s): F39 - Unspecified mood [affective] disorder (4) Opioid use disorder, severe, dependence: Status: Acute Code(s): F11.20 - Opioid dependence, uncomplicated (5) Homeless single person: Status: Acute Code(s): Z59.00 - Homelessness unspecified (6) Cocaine use disorder: Status: Acute Code(s): F14.10 - Cocaine abuse, uncomplicated Plan recheck labs tomorrow morning. continue prednisone for colitis; Dr. Rayo aware of pt's admission and working up for LLQ pain s/p bowel resection. restart psych meds: clonidine 0.1/0.1/0.2; wellbutrin XL 150 x 3 days, then 300; thorazine 50/50/100 and 50 Q4H PRN. 2/4: continue current tx plan. Patient educated on: medication risk/benefits Reason for continued inpatient stay Substantial Risk for: harm to self and med/psych decompensation Time Spent With Patient Time: Total time managing care of this patient today _20___ minutes.
[2024-05-30] MEDS: hydrOXYzine HCL 25 MG TABLET PO (12:29)
[2024-05-30 12:48] LABS: Adenovirus PCR Not Detected (Not Detect.); Bordetella parapertussis PCR Not Detected (Not Detect.); Bordetella pertussis PCR Not Detected (Not Detect.); Chlamydia pneumoniae PCR Not Detected (Not Detect.); Coronavirus 229E PCR Not Detected (Not Detect.); Coronavirus HKU1 PCR Not Detected (Not Detect.); Coronavirus NL63 PCR Not Detected (Not Detect.); Coronavirus OC43 PCR Not Detected (Not Detect.); Human metapneumovirus PCR Not Detected (Not Detect.); Influenza A PCR Not Detected (Not Detect.); Influenza B PCR Not Detected (Not Detect.); Mycoplasma pneumoniae PCR Not Detected (Not Detect.); Parainfluenza 1 PCR Not Detected (Not Detect.); Parainfluenza 2 PCR Not Detected (Not Detect.); Parainfluenza 3 PCR Not Detected (Not Detect.); Parainfluenza 4 PCR Not Detected (Not Detect.); RSV PCR Not Detected (Not Detect.); Rhino/Enterovirus PCR Not Detected (Not Detect.)
[2024-05-30 12:49] LABS: SARS-CoV-2 PCR Not Detected (Not Detect.)
[2024-05-30 15:27] VITALS: BP 120/66; PULSE 77
[2024-05-30 19:15] VITALS: BP 117/61; PULSE 75; TEMP 37.3; O2SAT 98
[2024-05-30 20:58] VITALS: BP 99/57
[2024-05-30] MEDS: chlorproMAZINE HCl 100 MG TABLET PO (20:58)
[2024-05-30] MEDS: cloNIDine HCL 0.2 MG TABLET PO (20:58)
[2024-05-31] MEDS: chlorproMAZINE HCl 25 MG TABLET 50 MG PO ×3 (01:48→11:32)
[2024-05-31] MEDS: hydrOXYzine HCL 25 MG TABLET PO ×2 (01:48→11:32)
[2024-05-31 07:37] VITALS: BP 119/71; PULSE 80; RESP 16; TEMP 36.4; O2SAT 96
[2024-05-31] MEDS: predniSONE 20 MG TABLET 40 MG PO (08:23)
[2024-05-31] MEDS: cloNIDine HCL 0.1 MG TABLET PO ×2 (08:23→15:41)
[2024-05-31] MEDS: buPROPion HCl XL 150 MG TAB.ER.24H PO (08:23)
[2024-05-31] MEDS: Acetaminophen 325 MG TABLET 650 MG PO (08:23)
[2024-05-31] MEDS: Nicotine 21 MG PATCH.TD24 TRANSDERMA (08:24)
[2024-05-31 15:41] VITALS: BP 118/66
[2024-05-31] MEDS: chlorproMAZINE HCl 100 MG TABLET PO (15:41)
--- NOTE | 2024-05-31 16:08 | P.PNPSI_ITS ---
Subjective Subjective Date of Service: 05/31/24 Reason For Visit: SI/AH Interim History: poor sleep, anxiety. agreeable to increase thorazine to address both. per staff, dep/anx 10. c/o AH. +meds. refused small bowel w/u ordered by Girma. resp panel NEG. passive SI. slept 5 hours. Mental Status Exam Mental Status Exam Narrative: Pt is alert, oriented; no PMA/PMR; dressed in casual attire; mood is anxious and depressed; eye contact appropriate; Speech is normal rate, volume and not pressured; thought process is organized; Thought content is on Tx; +AH. Diagnostics Vital Signs (24Hr): Vital Signs - 24 hr 05/30/24 19:15 05/30/24 20:58 05/31/24 07:37 Temperature 99.1 F 97.6 F Pulse Rate 75 80 Respiratory Rate 16 Blood Pressure 117/61 99/57 L 119/71 Pulse Oximetry 98 96 Oxygen Delivery Method Room Air Room Air 05/31/24 15:41 Temperature Pulse Rate Respiratory Rate Blood Pressure 118/66 Pulse Oximetry Oxygen Delivery Method BMI result Body Mass Index 23.6 Labs 05/27/24 08:48 05/27/24 08:48 Labs: Laboratory Results - last 48 hr 05/29/24 16:57 Respiratory Panel [place] See Note Adenovirus (Rapid PCR) Not Detected B.pert (TEM-PCR) Not Detected B.parapertussis DNA PCR Not Detected C. pneumoniae DNA (PCR) Not Detected Coronavirus OC43 (PCR) Not Detected Coronavirus HKU1 (PCR) Not Detected Coronavirus 229E (PCR) Not Detected Coronavirus NL63 (PCR) Not Detected Human Metapneumovir PCR Not Detected Influenza A (RT-PCR) Not Detected Influenza B (RT-PCR) Not Detected M. pneumoniae (PCR) Not Detected Parainfluenza 1 (PCR) Not Detected Parainfluenza 2 (PCR) Not Detected Parainfluenza 3 (PCR) Not Detected Parainfluenza 4 (PCR) Not Detected RSV (PCR) Not Detected Entero/Rhino (PCR) Not Detected SARS-CoV-2 RNA (RT-PCR) Not Detected Medications Medications Current Medications Acetaminophen (Acetaminophen 325 Mg Tablet) 650 mg PO Q6H PRN PRN Reason: Headache/Pain Mild Scale (1-3) Last Admin: 05/31/24 08:23 Dose: 650 mg Al Hydroxide/Mg Hydroxide (Magnesium Hydrox/Alum Hydrox 30 Ml Oral.Susp) 30 ml PO Q6H PRN PRN Reason: Heartburn/Nausea Bupropion HCl (Bupropion Hcl Xl 300 Mg Tab.Er.24h) 300 mg PO DAILY [facility] Bupropion HCl (Bupropion Hcl Xl 150 Mg Tab.Er.24h) 150 mg PO DAILY [facility] Stop: 06/01/24 09:01 Last Admin: 05/31/24 08:23 Dose: 150 mg Chlorpromazine HCl (Chlorpromazine Hcl 25 Mg Tablet) 50 mg PO Q4H PRN PRN Reason: severe anxiety Last Admin: 05/31/24 11:32 Dose: 50 mg Chlorpromazine HCl (Chlorpromazine Hcl 100 Mg Tablet) 100 mg PO BID@0900,1500 [facility] Last Admin: 05/31/24 15:41 Dose: 100 mg Chlorpromazine HCl (Chlorpromazine Hcl 100 Mg Tablet) 200 mg PO BEDTIME [facility] Clonidine HCl (Clonidine Hcl 0.1 Mg Tablet) 0.1 mg PO BID@0900,1500 [facility]; Protocol Last Admin: 05/31/24 15:41 Dose: 0.1 mg Clonidine HCl (Clonidine Hcl 0.2 Mg Tablet) 0.2 mg PO BEDTIME [facility]; Protocol Last Admin: 05/30/24 20:58 Dose: 0.2 mg Hydroxyzine HCl (Hydroxyzine Hcl 25 Mg Tablet) 25 mg PO Q6H PRN PRN Reason: Anxiety Last Admin: 05/31/24 11:32 Dose: 25 mg Magnesium Hydroxide (Milk Of Magnesia 30 Ml Oral.Susp) 30 ml PO DAILY PRN PRN Reason: Constipation Nicotine (Nicotine 21 Mg Patch.Td24) 21 mg TRANSDERMA DAILY [facility] Last Admin: 05/31/24 08:24 Dose: 21 mg Nicotine Polacrilex (Nicotine Polacrilex 2 Mg Gum) 4 mg BUCCAL Q2H PRN PRN Reason: Nicotine Cravings Last Admin: 05/30/24 08:58 Dose: 4 mg Trazodone HCl (Trazodone Hcl 50 Mg Tablet) 50 mg PO BEDTIME MRX1 PRN PRN Reason: Insomnia Allergies Allergies Allergy/AdvReac Type Severity Reaction Status Date / Time haloperidol [From Haldol] AdvReac see note Verified 05/27/24 07:54 Assessment & Plan Assessment & Plan (1) Colitis: Status: Acute Code(s): K52.9 - Noninfective gastroenteritis and colitis, unspecified (2) Suicide ideation: Status: Acute Code(s): R45.851 - Suicidal ideations (3) Mood disorder: Status: Acute Code(s): F39 - Unspecified mood [affective] disorder (4) Opioid use disorder, severe, dependence: Status: Acute Code(s): F11.20 - Opioid dependence, uncomplicated (5) Homeless single person: Status: Acute Code(s): Z59.00 - Homelessness unspecified (6) Cocaine use disorder: Status: Acute Code(s): F14.10 - Cocaine abuse, uncomplicated Plan 2/3: recheck labs tomorrow morning. continue prednisone for colitis; Dr. Rayo aware of pt's admission and working up for LLQ pain s/p bowel resection. restart psych meds: clonidine 0.1/0.1/0.2; wellbutrin XL 150 x 3 days, then 300; thorazine 50/50/100 and 50 Q4H PRN. 2/4: continue current tx plan. 05/31: c/o insomnia, anxiety, AH. check labs. increase thorazine from 50/50/100 to 100/100/200. otherwise continue current mgmt. Reason for continued inpatient stay Substantial Risk for: harm to self and inability to function Time Spent With Patient Time: Total time managing care of this patient today __25__ minutes.
[2024-05-31 17:57] LABS: Anion Gap 14 (12-20); Blood Urea Nitrogen 23 mg/dL (9-16); Calcium 8.8 mg/dL (8.4-10.2); Carbon Dioxide 17 mmol/L (22-29); Chloride 113 mmol/L (96-108); Creatinine Clr Calc Pharmacy 103.4; Estimated Glomerular Filt Rate > 60; Glucose Random 194 mg/dL (60-115); Potassium 5.6 mmol/L (3.3-5.1); Sodium 138 mmol/L (135-145)
[2024-05-31 19:45] VITALS: BP 119/68; PULSE 110; RESP 16; TEMP 37.3; O2SAT 94
[2024-05-31] MEDS: cloNIDine HCL 0.2 MG TABLET PO (20:09)
[2024-05-31] MEDS: chlorproMAZINE HCl 100 MG TABLET 200 MG PO (20:09)
[2024-06-01] MEDS: chlorproMAZINE HCl 25 MG TABLET 50 MG PO (03:15)
[2024-06-01] MEDS: hydrOXYzine HCL 25 MG TABLET PO ×2 (03:15→21:52)
[2024-06-01 07:00] VITALS: BMI 24.9
[2024-06-01 08:51] VITALS: BP 126/76; PULSE 87; RESP 16; TEMP 37.3; O2SAT 95
[2024-06-01] MEDS: buPROPion HCl XL 150 MG TAB.ER.24H PO (08:52)
[2024-06-01] MEDS: cloNIDine HCL 0.1 MG TABLET PO ×2 (08:52→14:48)
[2024-06-01] MEDS: chlorproMAZINE HCl 100 MG TABLET PO ×2 (08:52→14:48)
[2024-06-01] MEDS: Nicotine 21 MG PATCH.TD24 TRANSDERMA (08:54)
[2024-06-01] MEDS: Acetaminophen 325 MG TABLET 650 MG PO (11:25)
--- NOTE | 2024-06-01 14:24 | P.PNPSI_ITS ---
Subjective Subjective Date of Service: 06/01/24 Reason For Visit: SI/AH Interim History: c/o insomnia, racing thoughts at night. feeling someone is after him, which he recognizes is not reasonable. was awake for 4 hours after taking meds, slept only 2 hours, then was up again for several hours. informed to be in bed by an hour after taking HS meds. agreeable to increase HS thorazine to 300 mg. CAH to suicide and SI with plan for outside hospital continue. would like to hold off on GI W/U until feeling better psychiatrically. per staff, CAH to harm self, no plan. thorazine and atarax at 0315. restless, broken sleep of 5 hours or so. Mental Status Exam Mental Status Exam Narrative: Pt is alert, oriented; no PMA/PMR; dressed in casual attire; mood is anxious and depressed; eye contact appropriate; Speech is normal rate, volume and not pressured; thought process is organized; Thought content is on Tx; +CAH to suicide, +SI with plan for outside hospital. Diagnostics Vital Signs (24Hr): Vital Signs - 24 hr 05/31/24 15:41 05/31/24 19:45 06/01/24 08:51 Temperature 99.1 F 99.1 F Pulse Rate 110 H 87 Respiratory Rate 16 16 Blood Pressure 118/66 119/68 126/76 Pulse Oximetry 94 95 Oxygen Delivery Method Room Air Room Air BMI result Body Mass Index 24.9 Labs 05/27/24 08:48 05/31/24 17:30 Labs: Laboratory Results - last 48 hr 05/31/24 17:30 Sodium 138 Potassium 5.6 H D Chloride 113 H Carbon Dioxide 17 L Anion Gap 14 BUN 23 H Creatinine 0.90 Estim Creat Clear Calc 103.4 Estimated GFR > 60 Random Glucose 194 H Calcium 8.8 D Medications Medications Current Medications Acetaminophen (Acetaminophen 325 Mg Tablet) 650 mg PO Q6H PRN PRN Reason: Headache/Pain Mild Scale (1-3) Last Admin: 06/01/24 11:25 Dose: 650 mg Al Hydroxide/Mg Hydroxide (Magnesium Hydrox/Alum Hydrox 30 Ml Oral.Susp) 30 ml PO Q6H PRN PRN Reason: Heartburn/Nausea Bupropion HCl (Bupropion Hcl Xl 300 Mg Tab.Er.24h) 300 mg PO DAILY [facility] Chlorpromazine HCl (Chlorpromazine Hcl 25 Mg Tablet) 50 mg PO Q4H PRN PRN Reason: severe anxiety Last Admin: 06/01/24 03:15 Dose: 50 mg Chlorpromazine HCl (Chlorpromazine Hcl 100 Mg Tablet) 100 mg PO BID@0900,1500 [facility] Last Admin: 06/01/24 08:52 Dose: 100 mg Chlorpromazine HCl (Chlorpromazine Hcl 100 Mg Tablet) 300 mg PO BEDTIME [facility] Clonidine HCl (Clonidine Hcl 0.1 Mg Tablet) 0.1 mg PO BID@0900,1500 [facility]; Protocol Last Admin: 06/01/24 08:52 Dose: 0.1 mg Clonidine HCl (Clonidine Hcl 0.2 Mg Tablet) 0.2 mg PO BEDTIME [facility]; Protocol Last Admin: 05/31/24 20:09 Dose: 0.2 mg Hydroxyzine HCl (Hydroxyzine Hcl 25 Mg Tablet) 25 mg PO Q6H PRN PRN Reason: Anxiety Last Admin: 06/01/24 03:15 Dose: 25 mg Magnesium Hydroxide (Milk Of Magnesia 30 Ml Oral.Susp) 30 ml PO DAILY PRN PRN Reason: Constipation Nicotine (Nicotine 21 Mg Patch.Td24) 21 mg TRANSDERMA DAILY [facility] Last Admin: 06/01/24 08:54 Dose: 21 mg Nicotine Polacrilex (Nicotine Polacrilex 2 Mg Gum) 4 mg BUCCAL Q2H PRN PRN Reason: Nicotine Cravings Last Admin: 05/30/24 08:58 Dose: 4 mg Trazodone HCl (Trazodone Hcl 50 Mg Tablet) 50 mg PO BEDTIME MRX1 PRN PRN Reason: Insomnia Allergies Allergies Allergy/AdvReac Type Severity Reaction Status Date / Time haloperidol [From Haldol] AdvReac see note Verified 05/27/24 07:54 Assessment & Plan Assessment & Plan (1) Colitis: Status: Acute Code(s): K52.9 - Noninfective gastroenteritis and colitis, unspecified (2) Suicide ideation: Status: Acute Code(s): R45.851 - Suicidal ideations (3) Mood disorder: Status: Acute Code(s): F39 - Unspecified mood [affective] disorder (4) Opioid use disorder, severe, dependence: Status: Acute Code(s): F11.20 - Opioid dependence, uncomplicated (5) Homeless single person: Status: Acute Code(s): Z59.00 - Homelessness unspecified (6) Cocaine use disorder: Status: Acute Code(s): F14.10 - Cocaine abuse, uncomplicated Plan 2: recheck labs tomorrow morning. continue prednisone for colitis; Dr. Rayo aware of pt's admission and working up for LLQ pain s/p bowel resection. restart psych meds: clonidine 0.1/0.1/0.2; wellbutrin XL 150 x 3 days, then 300; thorazine 50/50/100 and 50 Q4H PRN. 05/30: continue current tx plan. 05/31: c/o insomnia, anxiety, AH. check labs. increase thorazine from 50/50/100 to 100/100/200. otherwise continue current mgmt. 06/01: increase HS thorazine to 300 mg for insomnia. would like to hold off on GI W/U until mental health is improved. continue current mgmt otherwise. Reason for continued inpatient stay Substantial Risk for: harm to self and inability to function Time Spent With Patient Time: Total time managing care of this patient today __25__ minutes.
[2024-06-01 14:45] VITALS: BP 135/80; PULSE 92
[2024-06-01 20:00] VITALS: RESP 20
[2024-06-01 21:51] VITALS: BP 122/76
[2024-06-01] MEDS: cloNIDine HCL 0.2 MG TABLET PO (21:51)
[2024-06-01] MEDS: chlorproMAZINE HCl 100 MG TABLET 300 MG PO (21:51)
[2024-06-02 07:54] VITALS: BP 111/68; PULSE 112; RESP 16; TEMP 36.8; O2SAT 98
[2024-06-02] MEDS: Nicotine 21 MG PATCH.TD24 TRANSDERMA (08:18)
[2024-06-02] MEDS: buPROPion HCl XL 300 MG TAB.ER.24H PO (08:20)
[2024-06-02] MEDS: cloNIDine HCL 0.1 MG TABLET PO ×2 (08:20→14:56)
[2024-06-02] MEDS: chlorproMAZINE HCl 100 MG TABLET PO ×2 (08:21→14:59)
[2024-06-02] MEDS: Acetaminophen 325 MG TABLET 650 MG PO ×2 (08:48→15:36)
[2024-06-02] MEDS: Cholestyramine (With Sugar) 4 GM POWD.PACK 2 GM PO ×2 (14:53→17:42)
[2024-06-02 14:56] VITALS: BP 113/72
--- NOTE | 2024-06-02 15:00 | P.PNPSI_ITS ---
Subjective Subjective Date of Service: 06/02/24 Reason For Visit: SI/AH Interim History: reports he slept better but feels tired all the time. AH continue. agreeable to continue with present regimen for the and reassess on wednesday. per staff, increased dep/anx. taking meds. +CAH to self-harm. irritable. Mental Status Exam Mental Status Exam Narrative: Pt is alert, oriented; no PMA/PMR; dressed in casual attire; mood is anxious and depressed; eye contact appropriate; Speech is normal rate, volume and not pressured; thought process is organized; Thought content is on Tx; +CAH to suicide, +SI with plan for outside hospital. Diagnostics Vital Signs (24Hr): Vital Signs - 24 hr 06/01/24 20:00 06/01/24 21:51 06/02/24 07:54 Temperature 98.2 F Pulse Rate 112 H Respiratory Rate 20 16 Blood Pressure 122/76 111/68 Pulse Oximetry 98 Oxygen Delivery Method Room Air 06/02/24 14:56 Temperature Pulse Rate Respiratory Rate Blood Pressure 113/72 Pulse Oximetry Oxygen Delivery Method BMI result Body Mass Index 24.9 Labs 05/27/24 08:48 05/31/24 17:30 Labs: Laboratory Results - last 48 hr 05/31/24 17:30 Sodium 138 Potassium 5.6 H D Chloride 113 H Carbon Dioxide 17 L Anion Gap 14 BUN 23 H Creatinine 0.90 Estim Creat Clear Calc 103.4 Estimated GFR > 60 Random Glucose 194 H Calcium 8.8 D Medications Medications Current Medications Acetaminophen (Acetaminophen 325 Mg Tablet) 650 mg PO Q6H PRN PRN Reason: Headache/Pain Mild Scale (1-3) Last Admin: 06/02/24 08:48 Dose: 650 mg Al Hydroxide/Mg Hydroxide (Magnesium Hydrox/Alum Hydrox 30 Ml Oral.Susp) 30 ml PO Q6H PRN PRN Reason: Heartburn/Nausea Bupropion HCl (Bupropion Hcl Xl 300 Mg Tab.Er.24h) 300 mg PO DAILY [facility] Last Admin: 06/02/24 08:20 Dose: 300 mg Chlorpromazine HCl (Chlorpromazine Hcl 25 Mg Tablet) 50 mg PO Q4H PRN PRN Reason: severe anxiety Last Admin: 06/01/24 03:15 Dose: 50 mg Chlorpromazine HCl (Chlorpromazine Hcl 100 Mg Tablet) 100 mg PO BID@0900,1500 [facility] Last Admin: 06/02/24 14:59 Dose: 100 mg Chlorpromazine HCl (Chlorpromazine Hcl 100 Mg Tablet) 300 mg PO BEDTIME [facility] Last Admin: 06/01/24 21:51 Dose: 300 mg Cholestyramine Resin (Cholestyramine (With Sugar) 4 Gm Powd.Pack) 2 gm PO BIDWM [facility] Last Admin: 06/02/24 14:53 Dose: 2 gm Clonidine HCl (Clonidine Hcl 0.1 Mg Tablet) 0.1 mg PO BID@0900,1500 [facility]; Protocol Last Admin: 06/02/24 14:56 Dose: 0.1 mg Clonidine HCl (Clonidine Hcl 0.2 Mg Tablet) 0.2 mg PO BEDTIME [facility]; Protocol Last Admin: 06/01/24 21:51 Dose: 0.2 mg Hydroxyzine HCl (Hydroxyzine Hcl 25 Mg Tablet) 25 mg PO Q6H PRN PRN Reason: Anxiety Last Admin: 06/01/24 21:52 Dose: 25 mg Magnesium Hydroxide (Milk Of Magnesia 30 Ml Oral.Susp) 30 ml PO DAILY PRN PRN Reason: Constipation Nicotine (Nicotine 21 Mg Patch.Td24) 21 mg TRANSDERMA DAILY [facility] Last Admin: 06/02/24 08:18 Dose: 21 mg Nicotine Polacrilex (Nicotine Polacrilex 2 Mg Gum) 4 mg BUCCAL Q2H PRN PRN Reason: Nicotine Cravings Last Admin: 05/30/24 08:58 Dose: 4 mg Trazodone HCl (Trazodone Hcl 50 Mg Tablet) 50 mg PO BEDTIME MRX1 PRN PRN Reason: Insomnia Allergies Allergies Allergy/AdvReac Type Severity Reaction Status Date / Time haloperidol [From Haldol] AdvReac see note Verified 05/27/24 07:54 Assessment & Plan Assessment & Plan (1) Colitis: Status: Acute Code(s): K52.9 - Noninfective gastroenteritis and colitis, unspecified (2) Suicide ideation: Status: Acute Code(s): R45.851 - Suicidal ideations (3) Mood disorder: Status: Acute Code(s): F39 - Unspecified mood [affective] disorder (4) Opioid use disorder, severe, dependence: Status: Acute Code(s): F11.20 - Opioid dependence, uncomplicated (5) Homeless single person: Status: Acute Code(s): Z59.00 - Homelessness unspecified (6) Cocaine use disorder: Status: Acute Code(s): F14.10 - Cocaine abuse, uncomplicated Plan 2: recheck labs tomorrow morning. continue prednisone for colitis; Dr. Rayo aware of pt's admission and working up for LLQ pain s/p bowel resection. restart psych meds: clonidine 0.1/0.1/0.2; wellbutrin XL 150 x 3 days, then 300; thorazine 50/50/100 and 50 Q4H PRN. 05/30: continue current tx plan. 05/31: c/o insomnia, anxiety, AH. check labs. increase thorazine from 50/50/100 to 100/100/200. otherwise continue current mgmt. 06/01: increase HS thorazine to 300 mg for insomnia. would like to hold off on GI W/U until mental health is improved. continue current mgmt otherwise. 06/02: slept better but tired all the time. CAH and SI continue. continue current mgmt through w/e and reassess on wednesday. Reason for continued inpatient stay Substantial Risk for: harm to self and inability to function Time Spent With Patient Time: Total time managing care of this patient today __25__ minutes.
[2024-06-02] MEDS: chlorproMAZINE HCl 100 MG TABLET 300 MG PO (21:13)
[2024-06-02] MEDS: cloNIDine HCL 0.2 MG TABLET PO (21:14)
--- NOTE | 2024-06-03 08:38 | P.PNPSI_ITS ---
Subjective Subjective Date of Service: 06/03/24 Reason For Visit: SI/AH Subjective Notes: Conditional Voluntary Healthcare Proxy: No Guardianship: No Medical Problems Affecting Mental Status: No Interim History: 49 yo with episode of diarrhea- denies other gi sys no n/v no fever- reports ongoing depression/anxiety- but hoping meds will take effect over weekend as recently changed and doctor told him no med changes further over weekend- pt mostly isolating and withdrawn in room- slept 7 hrs, denies s/e of medication, some thoughts of si but no plan/intent- Medication Compliance: Yes Side effects from medications: No Attending Groups: No Review of Systems Acute medical concerns: No Medical Review of Systems: changed Review of Systems: episode of diarrhea Mental Status Exam Mental Status Exam Narrative: lying in bed, limited engagement in care/mileu Patient Appearance: Unkempt Patient Orientation: Person, Place and Situation Level of Consciousness: Awake Patient Behavior: Guarded, Passive and Isolative Mood Description: Sad Affect Description: Blunted and Flat Patient Cognition Impaired: No Ability to Follow Directions: Fair Speech Pattern: Clear Hallucinations: Auditory (reported to provider yesterday- ) Thought Process: Intact and Goal Oriented Thought Content: positive for Poverty of Content Depressive Symptoms: Thoughts of /Suicide Judgement: Fair Diagnostics Vital Signs (24Hr): Vital Signs - 24 hr 06/02/24 14:56 Blood Pressure 113/72 BMI result Body Mass Index 24.9 Labs 05/27/24 08:48 05/31/24 17:30 Medications Medications Current Medications Acetaminophen (Acetaminophen 325 Mg Tablet) 650 mg PO Q6H PRN PRN Reason: Headache/Pain Mild Scale (1-3) Last Admin: 06/02/24 15:36 Dose: 650 mg Al Hydroxide/Mg Hydroxide (Magnesium Hydrox/Alum Hydrox 30 Ml Oral.Susp) 30 ml PO Q6H PRN PRN Reason: Heartburn/Nausea Bupropion HCl (Bupropion Hcl Xl 300 Mg Tab.Er.24h) 300 mg PO DAILY [facility] Last Admin: 06/02/24 08:20 Dose: 300 mg Chlorpromazine HCl (Chlorpromazine Hcl 25 Mg Tablet) 50 mg PO Q4H PRN PRN Reason: severe anxiety Last Admin: 06/01/24 03:15 Dose: 50 mg Chlorpromazine HCl (Chlorpromazine Hcl 100 Mg Tablet) 100 mg PO BID@0900,1500 [facility] Last Admin: 06/02/24 14:59 Dose: 100 mg Chlorpromazine HCl (Chlorpromazine Hcl 100 Mg Tablet) 300 mg PO BEDTIME [facility] Last Admin: 06/02/24 21:13 Dose: 300 mg Cholestyramine Resin (Cholestyramine (With Sugar) 4 Gm Powd.Pack) 2 gm PO BIDWM [facility] Last Admin: 06/02/24 17:42 Dose: 2 gm Clonidine HCl (Clonidine Hcl 0.1 Mg Tablet) 0.1 mg PO BID@0900,1500 [facility]; Protocol Last Admin: 06/02/24 14:56 Dose: 0.1 mg Clonidine HCl (Clonidine Hcl 0.2 Mg Tablet) 0.2 mg PO BEDTIME [facility]; Protocol Last Admin: 06/02/24 21:14 Dose: 0.2 mg Hydroxyzine HCl (Hydroxyzine Hcl 25 Mg Tablet) 25 mg PO Q6H PRN PRN Reason: Anxiety Last Admin: 06/01/24 21:52 Dose: 25 mg Magnesium Hydroxide (Milk Of Magnesia 30 Ml Oral.Susp) 30 ml PO DAILY PRN PRN Reason: Constipation Nicotine (Nicotine 21 Mg Patch.Td24) 21 mg TRANSDERMA DAILY [facility] Last Admin: 06/02/24 08:18 Dose: 21 mg Nicotine Polacrilex (Nicotine Polacrilex 2 Mg Gum) 4 mg BUCCAL Q2H PRN PRN Reason: Nicotine Cravings Last Admin: 05/30/24 08:58 Dose: 4 mg Trazodone HCl (Trazodone Hcl 50 Mg Tablet) 50 mg PO BEDTIME MRX1 PRN PRN Reason: Insomnia Allergies Allergies Allergy/AdvReac Type Severity Reaction Status Date / Time haloperidol [From Haldol] AdvReac see note Verified 05/27/24 07:54 Assessment & Plan Assessment & Plan (1) Colitis: Status: Acute Code(s): K52.9 - Noninfective gastroenteritis and colitis, unspecified (2) Suicide ideation: Status: Acute Code(s): R45.851 - Suicidal ideations (3) Mood disorder: Status: Acute Code(s): F39 - Unspecified mood [affective] disorder (4) Opioid use disorder, severe, dependence: Status: Acute Code(s): F11.20 - Opioid dependence, uncomplicated (5) Homeless single person: Status: Acute Code(s): Z59.00 - Homelessness unspecified (6) Cocaine use disorder: Status: Acute Code(s): F14.10 - Cocaine abuse, uncomplicated Plan 05/29: recheck labs tomorrow morning. continue prednisone for colitis; Dr. Rayo aware of pt's admission and working up for LLQ pain s/p bowel resection. restart psych meds: clonidine 0.1/0.1/0.2; wellbutrin XL 150 x 3 days, then 300; thorazine 50/50/100 and 50 Q4H PRN. 05/30: continue current tx plan. 05/31: c/o insomnia, anxiety, AH. check labs. increase thorazine from 50/50/100 to 100/100/200. otherwise continue current mgmt. 06/01: increase HS thorazine to 300 mg for insomnia. would like to hold off on GI W/U until mental health is improved. continue current mgmt otherwise. 06/02: slept better but tired all the time. CAH and SI continue. continue current mgmt through w/e and reassess on wednesday. 06/03 continue current meds for weekend-= si - no plan Reason for continued inpatient stay Substantial Risk for: harm to self and rapid decompensation Time Spent With Patient Time: Total time managing care of this patient today ____ minutes.
[2024-06-03 09:09] VITALS: BP 121/75; PULSE 107; RESP 16; TEMP 36.3; O2SAT 97
[2024-06-03] MEDS: Cholestyramine (With Sugar) 4 GM POWD.PACK 2 GM PO (09:11)
[2024-06-03] MEDS: buPROPion HCl XL 300 MG TAB.ER.24H PO (09:12)
[2024-06-03] MEDS: chlorproMAZINE HCl 100 MG TABLET PO ×2 (09:12→15:26)
[2024-06-03] MEDS: Acetaminophen 325 MG TABLET 650 MG PO ×2 (09:12→15:27)
[2024-06-03] MEDS: Nicotine 21 MG PATCH.TD24 TRANSDERMA (09:13)
[2024-06-03] MEDS: cloNIDine HCL 0.1 MG TABLET PO ×2 (09:14→15:27)
[2024-06-03 15:23] VITALS: BP 127/78; PULSE 103
[2024-06-03] MEDS: hydrOXYzine HCL 25 MG TABLET PO (15:26)
[2024-06-03] MEDS: chlorproMAZINE HCl 25 MG TABLET 50 MG PO (17:45)
[2024-06-03] MEDS: cloNIDine HCL 0.2 MG TABLET PO (20:33)
[2024-06-03] MEDS: chlorproMAZINE HCl 100 MG TABLET 300 MG PO (20:34)
[2024-06-04 07:50] VITALS: BP 133/84; PULSE 92; RESP 16; TEMP 36.3; O2SAT 96
[2024-06-04] MEDS: cloNIDine HCL 0.1 MG TABLET PO ×2 (08:21→14:39)
[2024-06-04] MEDS: buPROPion HCl XL 300 MG TAB.ER.24H PO (08:21)
[2024-06-04] MEDS: Nicotine 21 MG PATCH.TD24 TRANSDERMA (08:22)
[2024-06-04] MEDS: chlorproMAZINE HCl 100 MG TABLET PO ×2 (08:22→14:40)
[2024-06-04] MEDS: Acetaminophen 325 MG TABLET 650 MG PO (08:22)
--- NOTE | 2024-06-04 11:52 | P.PNPSI_ITS ---
Subjective Subjective Date of Service: 06/04/24 Reason For Visit: SI/AH Subjective Notes: Conditional Voluntary Healthcare Proxy: No Guardianship: No Medical Problems Affecting Mental Status: No Interim History: 49 yo continues to mostly isolate to his room- reported to nursing that he wanted to talk to doctor about sexual s/e of olanzapine- but not this provider- wants to talk to Wednesday dr- Reports he is fine- ongoing depression, vague si no plan here Medication Compliance: Yes Side effects from medications: No (?) Attending Groups: No Review of Systems Acute medical concerns: No Medical Review of Systems: unchanged (?sexual s/e) Mental Status Exam Mental Status Exam Patient Appearance: Appropriate Patient Orientation: Person, Place, Time and Situation Level of Consciousness: Awake Patient Behavior: Passive and Resistive to Care (resistive to engagement-) Mood Description: Sad Affect Description: Flat Patient Cognition Impaired: No Ability to Follow Directions: Fair Speech Pattern: Clear Thought Process: Intact and Goal Oriented Thought Content: positive for Suicidal Ideation (no plan) Depressive Symptoms: Unhappiness and Thoughts of /Suicide Judgement: Fair Diagnostics Vital Signs (24Hr): Vital Signs - 24 hr 06/03/24 15:23 06/04/24 07:50 Temperature 97.3 F Pulse Rate 103 H 92 Respiratory Rate 16 Blood Pressure 127/78 133/84 Pulse Oximetry 96 Oxygen Delivery Method Room Air BMI result Body Mass Index 24.9 Labs 05/27/24 08:48 05/31/24 17:30 Medications Medications Current Medications Acetaminophen (Acetaminophen 325 Mg Tablet) 650 mg PO Q6H PRN PRN Reason: Headache/Pain Mild Scale (1-3) Last Admin: 06/04/24 08:22 Dose: 650 mg Al Hydroxide/Mg Hydroxide (Magnesium Hydrox/Alum Hydrox 30 Ml Oral.Susp) 30 ml PO Q6H PRN PRN Reason: Heartburn/Nausea Bupropion HCl (Bupropion Hcl Xl 300 Mg Tab.Er.24h) 300 mg PO DAILY [facility] Last Admin: 06/04/24 08:21 Dose: 300 mg Chlorpromazine HCl (Chlorpromazine Hcl 25 Mg Tablet) 50 mg PO Q4H PRN PRN Reason: severe anxiety Last Admin: 06/03/24 17:45 Dose: 50 mg Chlorpromazine HCl (Chlorpromazine Hcl 100 Mg Tablet) 100 mg PO BID@0900,1500 [facility] Last Admin: 06/04/24 08:22 Dose: 100 mg Chlorpromazine HCl (Chlorpromazine Hcl 100 Mg Tablet) 300 mg PO BEDTIME [facility] Last Admin: 06/03/24 20:34 Dose: 300 mg Cholestyramine Resin (Cholestyramine (With Sugar) 4 Gm Powd.Pack) 2 gm PO BIDWM [facility] Last Admin: 06/04/24 08:32 Dose: Not Given Clonidine HCl (Clonidine Hcl 0.1 Mg Tablet) 0.1 mg PO BID@0900,1500 [facility]; Protocol Last Admin: 06/04/24 08:21 Dose: 0.1 mg Clonidine HCl (Clonidine Hcl 0.2 Mg Tablet) 0.2 mg PO BEDTIME [facility]; Protocol Last Admin: 06/03/24 20:33 Dose: 0.2 mg Hydroxyzine HCl (Hydroxyzine Hcl 25 Mg Tablet) 25 mg PO Q6H PRN PRN Reason: Anxiety Last Admin: 06/03/24 15:26 Dose: 25 mg Magnesium Hydroxide (Milk Of Magnesia 30 Ml Oral.Susp) 30 ml PO DAILY PRN PRN Reason: Constipation Nicotine (Nicotine 21 Mg Patch.Td24) 21 mg TRANSDERMA DAILY [facility] Last Admin: 06/04/24 08:22 Dose: 21 mg Nicotine Polacrilex (Nicotine Polacrilex 2 Mg Gum) 4 mg BUCCAL Q2H PRN PRN Reason: Nicotine Cravings Last Admin: 05/30/24 08:58 Dose: 4 mg Trazodone HCl (Trazodone Hcl 50 Mg Tablet) 50 mg PO BEDTIME MRX1 PRN PRN Reason: Insomnia Allergies Allergies Allergy/AdvReac Type Severity Reaction Status Date / Time haloperidol [From Haldol] AdvReac see note Verified 05/27/24 07:54 Assessment & Plan Assessment & Plan (1) Colitis: Status: Acute Code(s): K52.9 - Noninfective gastroenteritis and colitis, unspecified (2) Suicide ideation: Status: Acute Code(s): R45.851 - Suicidal ideations (3) Mood disorder: Status: Acute Code(s): F39 - Unspecified mood [affective] disorder (4) Opioid use disorder, severe, dependence: Status: Acute Code(s): F11.20 - Opioid dependence, uncomplicated (5) Homeless single person: Status: Acute Code(s): Z59.00 - Homelessness unspecified (6) Cocaine use disorder: Status: Acute Code(s): F14.10 - Cocaine abuse, uncomplicated Plan 05/29: recheck labs tomorrow morning. continue prednisone for colitis; Dr. Rayo aware of pt's admission and working up for LLQ pain s/p bowel resection. restart psych meds: clonidine 0.1/0.1/0.2; wellbutrin XL 150 x 3 days, then 300; thorazine 50/50/100 and 50 Q4H PRN. 05/30: continue current tx plan. 05/31: c/o insomnia, anxiety, AH. check labs. increase thorazine from 50/50/100 to 100/100/200. otherwise continue current mgmt. 06/01: increase HS thorazine to 300 mg for insomnia. would like to hold off on GI W/U until mental health is improved. continue current mgmt otherwise. 06/02: slept better but tired all the time. CAH and SI continue. continue current mgmt through w/e and reassess on wednesday. 06/03 continue current meds for weekend-= si - no plan 06/04 CTP talk to wednesday doctor who he had weekend plan re ? se Patient educated on: medication risk/benefits Informed Consent: further education needed Reason for continued inpatient stay Substantial Risk for: harm to self and rapid decompensation Time Spent With Patient Time: Total time managing care of this patient today ____ minutes.
[2024-06-04 14:37] VITALS: BP 132/74; PULSE 106
[2024-06-04 20:00] VITALS: RESP 18
[2024-06-04] MEDS: chlorproMAZINE HCl 100 MG TABLET 300 MG PO (20:25)
[2024-06-05 08:40] VITALS: BP 118/72; PULSE 113; RESP 16; TEMP 36.4; O2SAT 97
[2024-06-05 08:52] VITALS: BP 118/72
[2024-06-05] MEDS: chlorproMAZINE HCl 100 MG TABLET PO (08:52)
[2024-06-05] MEDS: cloNIDine HCL 0.1 MG TABLET PO (08:52)
[2024-06-05] MEDS: buPROPion HCl XL 300 MG TAB.ER.24H PO (08:52)
[2024-06-05] MEDS: Nicotine 21 MG PATCH.TD24 TRANSDERMA (08:53)
[2024-06-05] MEDS: Acetaminophen 325 MG TABLET 650 MG PO (08:57)
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
--- NOTE | 2024-06-05 12:54 | PC.NURSE ---
Patient easily engaged. Reports mood is stable, denies depression, denies feeling anxious. Denies SI/HI plan or intent. Denies A/V hallucinations, no overt psychosis or expressed delusions. GF to pick patient up. Discharge paperwork reviewed with patient reports understanding. Appointments reviewed with patient, reports understanding. Medications reviewed with patient, reports understanding. Crisis numbers provided to patient. All belongings taken with patient.
== END 2024-06-05 12:32 | disposition home or self-care (01) | DRG 753 ==
LOC: HO.ED 20:30 → HO.PADLT16 05-29 12:02
PROVIDERS: Physician Assistant Medical; Admitting Provider Psychiatry & Neurology Psychiatry; Emergency Provider Emergency Medicine; PCP Internal Medicine; Visit Provider Psychiatry & Neurology Psychiatry
DX: F39 Unspecified mood [affective] disorder (principal); R45.851 Suicidal ideations; F32.A Depression, unspecified; I10 Essential (primary) hypertension; K21.9 Gastro-esophageal reflux disease without esophagitis; K52.9 Noninfective gastroenteritis and colitis, unspecified; F14.10 Cocaine abuse, uncomplicated; G47.00 Insomnia, unspecified; F11.20 Opioid dependence, uncomplicated; F41.9 Anxiety disorder, unspecified; K50.90 Crohn's disease, unspecified, without complications; Z98.0 Intestinal bypass and anastomosis status; Z59.00 Homelessness unspecified
CPT/HCPCS: 36415; 74177; 80048; 80053; 80143; 80179; 80307; 81001; 82248; 83690; 83735; 85025; 87633; 93005; 99285; J2270; Q9967; S9485

== ENCOUNTER → 2024-05-27 08:15 | Outpatient (BNV) | payer MEDICAID, SELFPAY | PROVIDERS: Emergency Provider Emergency Medicine; PCP Internal Medicine; Visit Provider Radiology Diagnostic Radiology | DX: K52.9 Noninfective gastroenteritis and colitis, unspecified (principal); Z93.3 Colostomy status | CPT/HCPCS: 74177 ==

== ENCOUNTER → 2024-05-29 09:41 | Outpatient (BNV) | payer MEDICAID, SELFPAY | PROVIDERS: Admitting Provider Psychiatry & Neurology Psychiatry; Emergency Provider Emergency Medicine; PCP Internal Medicine; Visit Provider Internal Medicine Cardiovascular Disease | DX: R00.1 Bradycardia, unspecified (principal) | CPT/HCPCS: 93010 ==

== ENCOUNTER → 2024-05-29 12:01 | Outpatient (BNV) | payer OTHER, SELFPAY | PROVIDERS: Admitting Provider Psychiatry & Neurology Psychiatry; Emergency Provider Emergency Medicine; PCP Internal Medicine; Visit Provider Psychiatry & Neurology Psychiatry | DX: F39 Unspecified mood [affective] disorder (principal); R45.851 Suicidal ideations; F11.20 Opioid dependence, uncomplicated; K52.9 Noninfective gastroenteritis and colitis, unspecified; Z59.00 Homelessness unspecified; F14.10 Cocaine abuse, uncomplicated | CPT/HCPCS: 99231; 99232; 99233 ==

== ENCOUNTER 2024-07-13 13:07 | Emergency (ER) | payer MEDICAID, SELFPAY ==
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
[2024-07-13 13:11] VITALS: BP 112/72; PULSE 61; O2SAT 98
[2024-07-13 13:13] VITALS: BP 111/61; PULSE 61; RESP 16; TEMP 36.8; O2SAT 97; BMI 24.4
[2024-07-13 13:47] LABS: Appearance Urine Cloudy; Color Urine Dark Yellow; Glucose Urine UA Negative (Negative); Leukocyte Esterase Urine Negative (Negative); Nitrite Urine Negative (Negative); PH 5.5 (5.0-9.0); Specific Gravity - Urine >= 1.030 (1.005-1.025); UMIC TRIGGER UACC YES; Urine Blood Negative (Negative); Urine Ketones Trace mg/dL (Negative); Urine Protein 100 (2+) mg/dL (Neg-Trace)
[2024-07-13 13:52] LABS: Bacteria Urine None Seen (None Seen); RBC Urine 0-2 /HPF (0-2); WBC Urine 0-5 /HPF (0-5)
[2024-07-13 13:56] LABS: Amphetamine Screen Urine Not Detected (Not Detect); Barbiturates, Urine Not Detected (Not Detect); Benzodiazepines Screen Urine Not Detected (Not Detect); Buprenorphine Scr Positive (Not Detect); Cannabinoid Screen Urine POSITIVE (Not Detect); Cocaine Screen Urine Not Detected (Not Detect); Fentanyl, urine POSITIVE (Not Detect); Methadone Screen, Urine Not Detected (Not Detect); Opiate Screen Urine Not Detected (Not Detect); Oxycodone Screen Urine Not Detected (Not Detect); Phencyclidine Screen Urine Not Detected (Not Detect)
[2024-07-13] MEDS: Nicotine 21 MG PATCH.TD24 TRANSDERMA (14:14)
[2024-07-13 14:17] LABS: MANUAL DIFF FLAG NO
[2024-07-13 14:39] LABS: Basophils Absolute Auto 0.1 X10*3/uL (0.0-0.2); Basophils Percent Auto 0.9 % (0-2); Eosinophils Percent Auto 0.6 % (0-4); Hematocrit 41.5 % (42.0-52.0); Hemoglobin 13.4 g/dl (14.0-18.0); Imm Gran Abs Auto 0.06 X10*3/uL (0.00-0.03); Imm Gran Pct Auto 0.9 % (0.0-0.4); Lymphocytes Percent Auto 14.7 % (20-40); Mean Corpuscular HGB Conc 32.3 g/dl (31.0-36.0); Mean Corpuscular Hemoglobin 27.9 pg (27.0-33.0); Mean Corpuscular Volume 86.5 fL (80.0-98.0); Mean Platelet Volume 10.5 fL (9.4-12.4); Monocytes Absolute Auto 0.3 X10*3/uL (0.1-1.2); Monocytes Percent Auto 4.8 % (2-11); Neutrophils Absolute Auto 5.3 x10*3/uL (2.0-8.3); Neutrophils Percent Auto 78.1 % (45-73); Platelet Count 202 X10*3/uL (160-400); Red Cell Distribution Width 15.1 % (11.0-16.0); White Blood Count 6.7 X10*3/uL (4.8-10.8)
--- NOTE | 2024-07-13 15:39 | PC.NURSE ---
pt told this nurse he takes suboxone 8mg bid, this nurse spoke with toan cueto about the patient- she came and spoke with him and she spoke with cecy as well. Toan will be putting in a note about the suboxone as they are wanting to hold off until he shows some symptoms of withdrawal given he was positive for fentanyl in his drug tox. The patient also stating he has a list of medications he takes, this nurse put in the pharmacy pt claims to use and did the med request from the pharmacy. It showed pt had used 2 other pharmacies and there was no med refills in 2024. [facility] was contacted by this nurse and they stated they will work on this med req but wouldnt likely get to it until pt has been here for 24 hours. Will notify the nurse who will be working overnights lawrence as well.
--- NOTE | 2024-07-13 15:48 | MHC.RECOVRN ---
Met with pt in 2 after pt requested Suboxone. Pt presented to ED with SI, CARE Team consult pending. Pt laying in bed, awake, alert, difficult to engage in conversation, minimal responses, appears comfortable. Pt reports he has been taking Suboxone 8 mg BID from [facility], however, per [facility] no Suboxone prescription has been filled within the past year. Pt reports he last took Suboxone at 0800, however, told RN he last took it 3 days ago. Pts UDS positive for buprenorphine, fentanyl, and THC. Educated pt regarding precipitated withdrawal. Pt denies recent opioid use, pt unsure how UDS is positive for fentanyl stating I only smoke weed. Pt denies current withdrawal symptoms. Pt denies other questions or concerns at this time. Discussed with Clotilde Pan APRN. Plan to wait until withdrawal symptoms emerge prior to administering Suboxone due to concern for precipitated withdrawal. RN aware.
--- NOTE | 2024-07-13 16:22 | MHC.CARE ---
Patient evaluated by the CARE Team, recommended disposition is dual diagnosis inpatient treatment. ED provider Dr. Gamble updated with plan.
--- NOTE | 2024-07-13 19:25 | MHC.EDTECH ---
Called to Pod for tought stick. This tech spoke to patient and patient refused blood draw and also refused finer stick to obtain blood. staff will contact if patient will do blood work
--- NOTE | 2024-07-13 20:13 | MHC.EDTECH ---
pt continues to refuse all lab work. RN AWARE.
--- NOTE | 2024-07-13 22:31 | MHC.EDTECH ---
PT CONTINUES TO REFUSE LAB WORK. T/W APPROACHED PT. PT SAID NIK. RN AWARE.
--- NOTE | 2024-07-14 05:44 | PC.NURSE ---
Patient slept through the night, no distress observed/reported, med rec completed/pending provider's approval, disposition per care team is section 12 dual diagnosis bed search, no behavior and safety concerns, will continue to monitor
[2024-07-14 06:58] VITALS: BP 150/90; PULSE 69; RESP 17; TEMP 36.4; O2SAT 98
--- NOTE | 2024-07-14 07:54 | PC.NURSE ---
Pt has been up to RN requesting suboxone. States he's been recieving med at [facility]. Will call when they open.
--- NOTE | 2024-07-14 08:36 | ECG_ITS ---
Test Reason : medical clearance Blood Pressure : */* mmHG Vent. Rate : 63 BPM Atrial Rate : 63 BPM P-R Int : 170 ms QRS Dur : 92 ms QT Int : 400 ms P-R-T Axes : 37 -2 24 degrees QTcB Int : 409 ms Normal sinus rhythm Minimal voltage criteria for LVH, may be normal variant ( R in aVL ) Borderline ECG When compared with ECG of 29-May-2024 09:41, No significant change was found Referred By: Odalys Gamble Electronically Signed By: Alvaro Schulte
--- NOTE | 2024-07-14 09:47 | MHC.CARE ---
Patient has been [facility] [place] [address]. The Accepting provider is Dr. Fern US 2pm. Transport is being booked now.
--- NOTE | 2024-07-14 10:03 | PC.NURSE ---
Clotilde Matthews present to speak with patient regarding suboxone.
[2024-07-14 10:05] LABS: Alanine Aminotransferase 10 U/L (0-40); Albumin Level 3.6 g/dL (3.5-5.0); Anion Gap 12 (12-20); Aspartate Amino Transferase 28 U/L (5-37); Bilirubin Direct 0.1 mg/dL (0.0-0.5); Bilirubin Total 0.3 mg/dL (0.0-1.0); Blood Urea Nitrogen 19 mg/dL (9-16); Calcium 8.7 mg/dL (8.4-10.2); Carbon Dioxide 21 mmol/L (22-29); Chloride 112 mmol/L (96-108); Creatinine Clr Calc Pharmacy 116.3; Estimated Glomerular Filt Rate > 60; Ethanol < 10 mg/dL; Glucose Random 95 mg/dL (60-115); Lipase 18 U/L (8-78); Magnesium 1.7 mg/dL (1.6-2.6); Potassium 4.4 mmol/L (3.3-5.1); Sodium 141 mmol/L (135-145)
[2024-07-14 10:13] LABS: Alkaline Phosphatase 88 U/L (39-117)
[2024-07-14] MEDS: Buprenorphine/Naloxone 8/2 mg FILM 2 FILM SUBLINGUAL (11:07)
--- NOTE | 2024-07-14 12:23 | PC.NURSE ---
bedside report to EMS. pt is cooperative, steady on feet. Aware of plan for transfer to [facility]
== END 2024-07-14 16:32 | disposition still patient (30) ==
PROVIDERS: Emergency Provider Emergency Medicine
DX: R45.851 Suicidal ideations (principal); R45.850 Homicidal ideations; F33.3 Major depressive disorder, recurrent, severe with psychotic symptoms; F41.9 Anxiety disorder, unspecified; R44.0 Auditory hallucinations; R44.1 Visual hallucinations; F19.10 Other psychoactive substance abuse, uncomplicated; I10 Essential (primary) hypertension; F17.210 Nicotine dependence, cigarettes, uncomplicated; Z79.899 Other long term (current) drug therapy
CPT/HCPCS: 36415; 80048; 80076; 80307; 81001; 83690; 83735; 85025; 93005; 99285; S9485

== ENCOUNTER → 2024-07-14 08:36 | Outpatient (BNV) | payer MEDICAID, SELFPAY | PROVIDERS: Emergency Provider Emergency Medicine; Visit Provider Internal Medicine Cardiovascular Disease | DX: R94.31 Abnormal electrocardiogram [ECG] [EKG] (principal); R45.851 Suicidal ideations | CPT/HCPCS: 93010 ==

== ENCOUNTER 2024-08-29 11:57 | Inpatient (IN) | payer MEDICAID, OTHER, SELFPAY ==
--- NOTE | ~2024-08-29 | CT_ITS ---
CLINICAL HISTORY: severe ongoing right facial pain CT maxillofacial without contrast Comparison: CT/REG/SR - CT FACIAL BONES WO IV CON - 08/09/22 23:17 EDT Findings: No acute fractures. There is mild osteoarthritis of the left temporomandibular joint. Multifocal dental caries and periodontal abscess formation. Very mild mucosal thickening within the maxillary sinuses. No air-fluid levels. The mastoid air cells are clear. Unremarkable orbital contents. Visualized intracranial contents are within normal limits. There is no soft tissue abscess. IMPRESSION: Multifocal dental caries and periodontal abscess formation. This document has been electronically signed by: Leatha Arzola MD on 09/04/2024 17:34:53
[2024-08-29 12:04] VITALS: BP 164/92; PULSE 86; O2SAT 98
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
[2024-08-29 12:16] VITALS: RESP 16
[2024-08-29 12:32] VITALS: BP 124/58; PULSE 71; RESP 16; TEMP 37; O2SAT 99; BMI 20.2
--- NOTE | 2024-08-29 12:39 | MHC.EDTECH ---
pt refused bloodwork. pt states he hasn't eaten or drank anything in 4 days and is dehydrated.
[2024-08-29 13:37] LABS: Appearance Urine Cloudy; Color Urine Dark Yellow; Glucose Urine UA Negative (Negative); Leukocyte Esterase Urine Negative (Negative); Nitrite Urine Negative (Negative); PH 5.5 (5.0-9.0); Specific Gravity - Urine >= 1.030 (1.005-1.025); UMIC TRIGGER UACC YES; Urine Blood Trace (Negative); Urine Ketones 40 mg/dL (Negative); Urine Protein 30 (1+) mg/dL (Neg-Trace)
[2024-08-29 13:40] LABS: Bacteria Urine None Seen (None Seen); RBC Urine 0-2 /HPF (0-2); Squamous Epithelial Cell Urine 0-2 /HPF (0-2); WBC Urine 0-5 /HPF (0-5)
[2024-08-29 13:51] LABS: Amphetamine Screen Urine Not Detected (Not Detect); Barbiturates, Urine Not Detected (Not Detect); Benzodiazepines Screen Urine Not Detected (Not Detect); Buprenorphine Scr Positive (Not Detect); Cannabinoid Screen Urine POSITIVE (Not Detect); Cocaine Screen Urine POSITIVE (Not Detect); Fentanyl, urine Not Detected (Not Detect); Methadone Screen, Urine Not Detected (Not Detect); Opiate Screen Urine Not Detected (Not Detect); Oxycodone Screen Urine Not Detected (Not Detect); Phencyclidine Screen Urine Not Detected (Not Detect)
--- NOTE | 2024-08-29 16:47 | PC.NURSE ---
pt again refusing blood work. Upon chart review, patient has a hx of refusing blood work
--- NOTE | 2024-08-29 18:22 | PC.NURSE ---
Pt reports that he has not taken his home medications in about 1 month but did take his suboxone yesterday. All other medications verified with patient verbally
[2024-08-29 19:51] LABS: Basophils Absolute Auto 0.1 X10*3/uL (0.0-0.2); Basophils Percent Auto 1.1 % (0-2); Eosinophils Absolute Auto 0.2 X10*3/uL (0.0-0.4); Eosinophils Percent Auto 3.6 % (0-4); Hematocrit 39.1 % (42.0-52.0); Hemoglobin 13.2 g/dl (14.0-18.0); Imm Gran Abs Auto 0.02 X10*3/uL (0.00-0.03); Imm Gran Pct Auto 0.3 % (0.0-0.4); Lymphocytes Absolute Auto 2.6 X10*3/uL (1.2-4.9); Lymphocytes Percent Auto 39.7 % (20-40); Mean Corpuscular HGB Conc 33.8 g/dl (31.0-36.0); Monocytes Absolute Auto 0.5 X10*3/uL (0.1-1.2); Monocytes Percent Auto 6.8 % (2-11); Neutrophils Absolute Auto 3.2 x10*3/uL (2.0-8.3); Neutrophils Percent Auto 48.5 % (45-73); Platelet Count 288 X10*3/uL (160-400); Red Blood Count 4.71 X10*6/uL (4.60-5.80); White Blood Count 6.6 X10*3/uL (4.8-10.8)
[2024-08-29 19:52] LABS: MANUAL DIFF FLAG NO
[2024-08-29 20:15] LABS: Alanine Aminotransferase 8 U/L (0-40); Albumin Level 4.2 g/dL (3.5-5.0); Alkaline Phosphatase 82 U/L (39-117); Anion Gap 11 (12-20); Aspartate Amino Transferase 23 U/L (5-37); Bilirubin Total 0.5 mg/dL (0.0-1.0); Blood Urea Nitrogen 22 mg/dL (9-16); Calcium 9.2 mg/dL (8.4-10.2); Carbon Dioxide 26 mmol/L (22-29); Chloride 108 mmol/L (96-108); Creatinine Clr Calc Pharmacy 78.1; Estimated Glomerular Filt Rate > 60; Ethanol < 10 mg/dL; Glucose Random 96 mg/dL (60-115); Potassium 4.3 mmol/L (3.3-5.1); Sodium 141 mmol/L (135-145); Total Protein 7.2 g/dL (6.5-8.0)
[2024-08-29 22:32] VITALS: BP 140/85; PULSE 55; RESP 17; TEMP 36.8; O2SAT 99
[2024-08-29] MEDS: QUEtiapine Fumarate 50 MG TABLET 150 MG PO (22:34)
[2024-08-29 22:35] VITALS: BP 140/85
[2024-08-29] MEDS: Prazosin HCL 5 MG CAPSULE PO (22:35)
[2024-08-29] MEDS: traZODone HCL 50 MG TABLET 150 MG PO (22:35)
[2024-08-29 22:36] VITALS: BP 140/85
[2024-08-29] MEDS: cloNIDine HCL 0.2 MG TABLET PO (22:36)
[2024-08-29] MEDS: hydrOXYzine HCL 50 MG TABLET PO (22:36)
[2024-08-29] MEDS: Mirtazapine 7.5 MG TABLET PO (22:36)
[2024-08-29] MEDS: Ibuprofen 400 MG TABLET PO (22:45)
[2024-08-30] VITALS (8 sets, daily range): BP systolic 75–126; BP diastolic 54–78; PULSE 51–78; RESP 13–16; TEMP 36.5–36.6; O2SAT 97–100; BMI 22.9
--- NOTE | 2024-08-30 | ECG_ITS ---
Test Reason : RULE OUT PROLONGED QTC Blood Pressure : */* mmHG Vent. Rate : 57 BPM Atrial Rate : 57 BPM P-R Int : 136 ms QRS Dur : 92 ms QT Int : 438 ms P-R-T Axes : 61 17 51 degrees QTcB Int : [address] elevation inferior and anterolateral leads, possible early repolarization Abnormal ECG When compared with ECG of 14-Jul-2024 08:52, No significant change was found Referred By: Fredo Curtis Electronically Signed By: FERMÍN SANTACRUZ
--- NOTE | 2024-08-30 05:58 | PC.NURSE ---
Patient slept through the night, no distress observed/reported, med and meals compliant, 15 minutes safety check, no behavior and safety concerns, disposition per care team is section 12 inpatient bed search, will continue to monitor
--- NOTE | 2024-08-30 07:23 | PC.NURSE ---
Assumed care of patient at 0645, patient appears to be in no apparent distress this am, sleeping, respirations even and unlabored. Continue plan of care for IPLOC
[2024-08-30] MEDS: QUEtiapine Fumarate 50 MG TABLET 150 MG PO ×2 (08:09→20:47)
[2024-08-30] MEDS: Multivitamin TABLET 1 TAB PO (08:09)
[2024-08-30] MEDS: Buprenorphine/Naloxone 8/2 mg FILM 1 FILM SUBLINGUAL ×2 (08:09→17:59)
[2024-08-30] MEDS: cloNIDine HCL 0.2 MG TABLET PO ×2 (08:09→20:46)
[2024-08-30] MEDS: hydrOXYzine HCL 50 MG TABLET PO ×2 (08:09→20:47)
--- NOTE | 2024-08-30 08:17 | MHC.EDTECH ---
EKG machine is not available at the moment.
--- NOTE | 2024-08-30 09:44 | PC.NURSE ---
Pts EKG showing acute STEMI, reviewed by provider, ruled no STEMI
--- NOTE | 2024-08-30 09:44 | PC.NURSE ---
Addendum entered by Ashly Celis 08/30/24 09:46: plan to recheck blood pressure in 30 minutes (1015), if patient's blood pressure is still low, plan will be to pull patient to main ER Original Note: Blood pressure acutely low, made aware via tiger at 0940, read at 0943, pending new orders at this time
--- NOTE | 2024-08-30 10:03 | PC.NURSE ---
pt agitated about blood work, yelled at this RN and tech Isa. Pt did become agreeable and allowed blood work
[2024-08-30 10:08] LABS: MANUAL DIFF FLAG NO
[2024-08-30 10:10] LABS: Basophils Absolute Auto 0.1 X10*3/uL (0.0-0.2); Basophils Percent Auto 1.4 % (0-2); Eosinophils Absolute Auto 0.2 X10*3/uL (0.0-0.4); Eosinophils Percent Auto 4.8 % (0-4); Hematocrit 38.7 % (42.0-52.0); Hemoglobin 13.1 g/dl (14.0-18.0); Imm Gran Abs Auto 0.01 X10*3/uL (0.00-0.03); Imm Gran Pct Auto 0.2 % (0.0-0.4); Lymphocytes Absolute Auto 1.8 X10*3/uL (1.2-4.9); Lymphocytes Percent Auto 41.6 % (20-40); Mean Corpuscular HGB Conc 33.9 g/dl (31.0-36.0); Mean Corpuscular Hemoglobin 27.8 pg (27.0-33.0); Mean Corpuscular Volume 82.2 fL (80.0-98.0); Mean Platelet Volume 9.5 fL (9.4-12.4); Monocytes Absolute Auto 0.4 X10*3/uL (0.1-1.2); Neutrophils Absolute Auto 1.9 x10*3/uL (2.0-8.3); Platelet Count 260 X10*3/uL (160-400); Red Blood Count 4.71 X10*6/uL (4.60-5.80); Red Cell Distribution Width 15.9 % (11.0-16.0); White Blood Count 4.4 X10*3/uL (4.8-10.8)
--- NOTE | 2024-08-30 10:28 | PC.NURSE ---
repeat vitals improved, blood pressure 90/62 HR 74, Cardona aware
[2024-08-30 10:30] LABS: Lactic Acid 0.9 mmol/L (0.5-2.0)
[2024-08-30 10:31] LABS: Alanine Aminotransferase 6 U/L (0-40); Albumin Level 4.1 g/dL (3.5-5.0); Alkaline Phosphatase 78 U/L (39-117); Anion Gap 12 (12-20); Aspartate Amino Transferase 21 U/L (5-37); Bilirubin Direct 0.3 mg/dL (0.0-0.5); Bilirubin Total 0.7 mg/dL (0.0-1.0); Blood Urea Nitrogen 21 mg/dL (9-16); Calcium 9.1 mg/dL (8.4-10.2); Carbon Dioxide 23 mmol/L (22-29); Chloride 107 mmol/L (96-108); Creatinine Clr Calc Pharmacy 86.4; Estimated Glomerular Filt Rate > 60; Glucose Random 111 mg/dL (60-115); Potassium 4.2 mmol/L (3.3-5.1); Sodium 138 mmol/L (135-145); Total Protein 7.1 g/dL (6.5-8.0)
--- NOTE | 2024-08-30 12:10 | PHA.MEDREC ---
Pharmacy Consult ? Medication Reconciliation Pharmacy has reviewed the medication reconciliation completed by nursing. Confirmed medications match claims.
[2024-08-30] MEDS: Nicotine 21 MG PATCH.TD24 TRANSDERMA (14:57)
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
[2024-08-30] MEDS: traZODone HCL 50 MG TABLET 150 MG PO (20:46)
[2024-08-30] MEDS: Prazosin HCL 5 MG CAPSULE PO (20:46)
[2024-08-30] MEDS: Mirtazapine 7.5 MG TABLET PO (20:47)
[2024-08-30] MEDS: Acetaminophen 325 MG TABLET 650 MG PO (20:53)
[2024-08-31] MEDS: Acetaminophen 325 MG TABLET 650 MG PO (05:45)
[2024-08-31 07:00] VITALS: BMI 23.0
[2024-08-31 10:00] VITALS: BMI 23.1
[2024-08-31 11:15] VITALS: BP 114/72; PULSE 59; RESP 16; TEMP 36.4; O2SAT 98
[2024-08-31] MEDS: QUEtiapine Fumarate 50 MG TABLET 150 MG PO ×2 (11:26→21:01)
[2024-08-31] MEDS: hydrOXYzine HCL 50 MG TABLET PO ×2 (11:27→21:00)
[2024-08-31] MEDS: Buprenorphine/Naloxone 8/2 mg FILM 1 FILM SUBLINGUAL ×2 (11:27→18:19)
[2024-08-31] MEDS: Multivitamin TABLET 1 TAB PO (11:27)
--- NOTE | 2024-08-31 11:32 | PC.NURSE ---
Dr. Abdul authorized late administration of AM medications.
[2024-08-31] MEDS: Ibuprofen 800 MG TABLET PO ×2 (11:48→21:05)
[2024-08-31] MEDS: cloNIDine HCL 0.2 MG TABLET PO ×2 (11:48→21:00)
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
[2024-08-31] MEDS: Carbamide Peroxide 6.5% Otic 15 ML DRPBTL 5 DROP EAR-RIGHT (19:57)
[2024-08-31 20:50] VITALS: BP 105/59; PULSE 62; RESP 16; TEMP 36.4; O2SAT 100
[2024-08-31] MEDS: Prazosin HCL 5 MG CAPSULE PO (21:00)
[2024-08-31] MEDS: Mirtazapine 7.5 MG TABLET PO (21:01)
[2024-08-31] MEDS: traZODone HCL 50 MG TABLET 150 MG PO (21:01)
[2024-09-01 08:00] VITALS: BP 125/67; PULSE 56; RESP 18; TEMP 36.4; O2SAT 98
[2024-09-01] MEDS: Nicotine 21 MG PATCH.TD24 TRANSDERMA (09:02)
[2024-09-01] MEDS: QUEtiapine Fumarate 50 MG TABLET 150 MG PO ×2 (09:03→20:31)
[2024-09-01] MEDS: hydrOXYzine HCL 50 MG TABLET PO ×2 (09:03→20:31)
[2024-09-01] MEDS: cloNIDine HCL 0.2 MG TABLET PO ×2 (09:03→20:31)
[2024-09-01] MEDS: Multivitamin TABLET 1 TAB PO (09:03)
[2024-09-01] MEDS: Buprenorphine/Naloxone 8/2 mg FILM 1 FILM SUBLINGUAL ×2 (09:05→16:48)
[2024-09-01] MEDS: Carbamide Peroxide 6.5% Otic 15 ML DRPBTL 5 DROP EAR-RIGHT ×2 (09:05→20:31)
[2024-09-01] MEDS: Ibuprofen 800 MG TABLET PO ×2 (09:07→20:30)
[2024-09-01] MEDS: Acetaminophen 325 MG TABLET 650 MG PO (12:22)
--- NOTE | 2024-09-01 12:49 | PC.NURSE ---
Brian asked to speak with TW reporting that he just got off the phone with the mother of his son, and that he found out that his son is in a hospital in [place] an is not doing well, he was tearful reporting that his anxiety over this is very high and the voices are very loud. He denies intent to harm himself but is reporting SI, he requested medication for the voices, Provider notified.
[2024-09-01] MEDS: chlorproMAZINE HCl 25 MG TABLET 50 MG PO (14:01)
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
[2024-09-01 19:30] VITALS: BP 114/62; PULSE 56; RESP 16; TEMP 36.8; O2SAT 97
[2024-09-01] MEDS: Mirtazapine 7.5 MG TABLET PO (20:30)
[2024-09-01] MEDS: traZODone HCL 50 MG TABLET 150 MG PO (20:30)
[2024-09-01] MEDS: Prazosin HCL 5 MG CAPSULE PO (20:31)
[2024-09-02] MEDS: Nicotine 21 MG PATCH.TD24 TRANSDERMA (09:08)
[2024-09-02] MEDS: QUEtiapine Fumarate 50 MG TABLET 150 MG PO ×2 (09:09→21:52)
[2024-09-02] MEDS: Multivitamin TABLET 1 TAB PO (09:09)
[2024-09-02 09:10] VITALS: BP 121/59; PULSE 55; RESP 16; TEMP 37.2; O2SAT 99
[2024-09-02] MEDS: hydrOXYzine HCL 50 MG TABLET PO ×2 (09:10→21:54)
[2024-09-02] MEDS: cloNIDine HCL 0.2 MG TABLET PO ×2 (09:10→21:53)
[2024-09-02] MEDS: Buprenorphine/Naloxone 8/2 mg FILM 1 FILM SUBLINGUAL ×2 (11:21→18:02)
[2024-09-02] MEDS: Ibuprofen 800 MG TABLET PO ×2 (12:18→19:46)
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
[2024-09-02 20:00] VITALS: BP 122/64; PULSE 64; RESP 16; TEMP 36.4; O2SAT 100
[2024-09-02] MEDS: traZODone HCL 50 MG TABLET 150 MG PO (21:52)
[2024-09-02 21:53] VITALS: BP 125/75
[2024-09-02] MEDS: Mirtazapine 7.5 MG TABLET PO (21:53)
[2024-09-02] MEDS: Prazosin HCL 5 MG CAPSULE PO (21:53)
[2024-09-02] MEDS: Carbamide Peroxide 6.5% Otic 15 ML DRPBTL 5 DROP EAR-RIGHT (21:54)
[2024-09-03] MEDS: Ibuprofen 800 MG TABLET PO ×3 (02:20→21:10)
[2024-09-03] MEDS: Acetaminophen 325 MG TABLET 650 MG PO ×2 (02:21→15:48)
[2024-09-03] MEDS: chlorproMAZINE HCl 25 MG TABLET 50 MG PO (02:34)
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
[2024-09-03 10:14] VITALS: BP 109/56; PULSE 69; RESP 18; TEMP 36.9; O2SAT 97
[2024-09-03] MEDS: Nicotine 21 MG PATCH.TD24 TRANSDERMA (10:15)
[2024-09-03] MEDS: cloNIDine HCL 0.2 MG TABLET PO ×2 (10:16→21:10)
[2024-09-03] MEDS: QUEtiapine Fumarate 50 MG TABLET 150 MG PO ×2 (10:16→21:11)
[2024-09-03] MEDS: Multivitamin TABLET 1 TAB PO (10:16)
[2024-09-03] MEDS: hydrOXYzine HCL 50 MG TABLET PO ×2 (10:16→21:11)
[2024-09-03 20:00] VITALS: RESP 16
[2024-09-03 21:10] VITALS: BP 128/66
[2024-09-03] MEDS: traZODone HCL 50 MG TABLET 150 MG PO (21:10)
[2024-09-03] MEDS: Mirtazapine 7.5 MG TABLET PO (21:11)
[2024-09-04] MEDS: hydrOXYzine HCL 25 MG TABLET PO (03:22)
[2024-09-04] MEDS: Acetaminophen 325 MG TABLET 650 MG PO ×2 (03:22→09:56)
[2024-09-04 09:56] VITALS: BP 156/98
[2024-09-04] MEDS: cloNIDine HCL 0.2 MG TABLET PO ×2 (09:56→22:25)
[2024-09-04] MEDS: hydrOXYzine HCL 50 MG TABLET PO ×2 (09:56→22:24)
[2024-09-04] MEDS: Multivitamin TABLET 1 TAB PO (09:56)
[2024-09-04] MEDS: QUEtiapine Fumarate 50 MG TABLET 150 MG PO ×2 (09:57→22:25)
[2024-09-04] MEDS: Ibuprofen 800 MG TABLET PO ×2 (09:57→17:37)
--- NOTE | 2024-09-04 14:32 | PM.EVENT ---
Event Note Date of Service: 09/04/24 Event Note: Patient is a 49 year old male with complaints of right ear pain. He was initially treated with Debrox ear drops for five days, although he refused the last 2 days citing increased ear pain with the drops. On assessment the patient endorsed the right ear pain with palpation, with copious amount of ear wax noted bilaterally R>L in inspection. An attempt was made to remove the wax using a curette with some success, patient reported improved hearing but complained of increasing pain so we attempted to flush the right ear with warm water which resulted in the removal of all the wax from the right ear. Upon reinspection the ear was noted to be slightly inflamed/?infected with no signs of tympanic involvement. The plan is to start patient on Augmentin 875 mg BID for 5days, add Ibuprofen 800 mg Q8H for pain management and Prilosec 20 mg daily X5 days Time Spent With Patient Time: Total time managing care of this patient today ____ minutes.
[2024-09-04] MEDS: Amoxicillin/Potassium Clav 875 MG TABLET PO (16:04)
--- NOTE | 2024-09-04 16:10 | HO.PSYCHPN ---
Subjective Subjective Date of Service: 09/04/24 Reason For Visit: Depression/SI Interim History: states he is happy. 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 also got a ticket to [place] for this wednesday. will see his son and brother. reports it's been 20 years since he's been to [place]. per staff, had an episode of severe ear pain in which he was writhing on the bed. debrox made ear pain worse. head CT ordered. threatening to bang head to get an MD to come evaluate him. Mental Status Exam Mental Status Exam Narrative: Pt is alert, oriented; no PMA/PMR; dressed in casual attire; mood is i'm happy! eye contact appropriate; Speech is normal rate, volume and not pressured; thought process is organized; Thought content is on Tx; no SI/HI/AVH expressed. Diagnostics Vital Signs (24Hr): Vital Signs - 24 hr 09/03/24 20:00 09/03/24 21:10 09/04/24 09:56 Respiratory Rate 16 Blood Pressure 128/66 156/98 H BMI result Body Mass Index 23.1 Labs 08/30/24 10:03 08/30/24 10:03 Medications Medications Current Medications Acetaminophen (Acetaminophen 325 Mg Tablet) 650 mg PO Q6H PRN PRN Reason: Headache/Pain, Scale 1-10 Last Admin: 09/04/24 09:56 Dose: 650 mg Al Hydroxide/Mg Hydroxide (Magnesium Hydrox/Alum Hydrox 30 Ml Oral.Susp) 30 ml PO Q6H PRN PRN Reason: Heartburn/Nausea Amoxicillin/Clavulanate Potassium (Amoxicillin/Potassium Clav 875 Mg Tablet) 875 mg PO Q12H [facility] Stop: 09/09/24 15:59 Last Admin: 09/04/24 16:04 Dose: 875 mg Buprenorphine/Naloxone (Buprenorphine/Naloxone 8/2 Mg Film) 1 film SUBLINGUAL BID@0900,1700 [facility] Last Admin: 09/04/24 09:11 Dose: Not Given Chlorpromazine HCl (Chlorpromazine Hcl 25 Mg Tablet) 50 mg PO QID PRN PRN Reason: mod-severe anxiety/AH Last Admin: 09/03/24 02:34 Dose: 50 mg Clonidine HCl (Clonidine Hcl 0.2 Mg Tablet) 0.2 mg PO BID NEIDA; Protocol Last Admin: 09/04/24 09:56 Dose: 0.2 mg Hydroxyzine HCl (Hydroxyzine Hcl 50 Mg Tablet) 50 mg PO BID [facility] Last Admin: 09/04/24 09:56 Dose: 50 mg Hydroxyzine HCl (Hydroxyzine Hcl 25 Mg Tablet) 25 mg PO Q6H PRN PRN Reason: mild anxiety Last Admin: 09/04/24 03:22 Dose: 25 mg Ibuprofen (Ibuprofen 800 Mg Tablet) 800 mg PO TIDWM [facility] Stop: 09/07/24 16:59 Magnesium Hydroxide (Milk Of Magnesia 30 Ml Oral.Susp) 30 ml PO DAILY PRN PRN Reason: Constipation Mirtazapine (Mirtazapine 7.5 Mg Tablet) 7.5 mg PO BEDTIME [facility] Last Admin: 09/03/24 21:11 Dose: 7.5 mg Multivitamins/Vitamin C (Multivitamin Tablet) 1 tab PO DAILY [facility] Last Admin: 09/04/24 09:56 Dose: 1 tab Nicotine (Nicotine 21 Mg Patch.Td24) 21 mg TRANSDERMA DAILY [facility] Last Admin: 09/04/24 09:12 Dose: Not Given Nicotine Polacrilex (Nicotine Polacrilex 2 Mg Gum) 4 mg BUCCAL Q2H PRN PRN Reason: Nicotine Cravings Omeprazole (Omeprazole 20 Mg Capsule.Dr) 20 mg PO DAILY@0630 [facility] Stop: 09/08/24 06:29 Prazosin HCl (Prazosin Hcl 5 Mg Capsule) 5 mg PO BEDTIME [facility]; Protocol Last Admin: 09/03/24 21:14 Dose: Not Given Quetiapine Fumarate (Quetiapine Fumarate 50 Mg Tablet) 150 mg PO BID [facility] Last Admin: 09/04/24 09:57 Dose: 150 mg Trazodone HCl (Trazodone Hcl 50 Mg Tablet) 150 mg PO BEDTIME [facility] Last Admin: 09/03/24 21:10 Dose: 150 mg Allergies Allergies Allergy/AdvReac Type Severity Reaction Status Date / Time haloperidol [From Haldol] AdvReac see note Verified 08/29/24 12:33 Assessment & Plan Assessment & Plan (1) Post traumatic stress disorder (PTSD): Status: Acute Code(s): F43.10 - Post-traumatic stress disorder, unspecified (2) Suicidal ideation: Status: Acute Code(s): R45.851 - Suicidal ideations (3) Opioid use disorder, severe, dependence: Status: Acute Code(s): F11.20 - Opioid dependence, uncomplicated (4) Cocaine use disorder: Status: Acute Code(s): F14.10 - Cocaine abuse, uncomplicated (5) Opioid withdrawal: Status: Acute Code(s): F11.93 - Opioid use, unspecified with withdrawal Plan restart prior regimen. allow detox from cocaine. reassess once feeling better. 09/01 Patient in distress today thinking about his son was hospitalized in [place] following motor vehicle accident; patient says he started having auditory hallucinations about 5 days ago when he 1st learned this; is having them today which is distressing him. Chris ordered Thorazine which had helped patient in the past which patient said was helpful. Patient said he thought of putting a 3 day notice but because of his distress, he had increased suicidal thoughts so decided to remain on the unit 09/03: Continue current regimen and plans. Put in a hospitalist consult for severe ear pain 09/04: continue current mgmt. hospitalist removed ear wax via irrigation. erythematous eardrum, antibx to be prescribed. otherwise likes his regimen, says he is happy today, bought a ticket to [place] for this wednesday. 3-day notice in place, maturing weds. discharge weds. Reason for continued inpatient stay Substantial Risk for: inability to function and rapid decompensation Time Spent With Patient Time: Total time managing care of this patient today __25__ minutes.
[2024-09-04 22:20] VITALS: BP 116/66; PULSE 60; RESP 14; TEMP 36.6; O2SAT 95
[2024-09-04] MEDS: traZODone HCL 50 MG TABLET 150 MG PO (22:24)
[2024-09-04] MEDS: Mirtazapine 7.5 MG TABLET PO (22:24)
[2024-09-04] MEDS: Prazosin HCL 5 MG CAPSULE PO (22:25)
[2024-09-05] MEDS: Omeprazole 20 MG CAPSULE.DR PO (05:59)
[2024-09-05] MEDS: Amoxicillin/Potassium Clav 875 MG TABLET PO ×2 (06:00→18:08)
[2024-09-05 10:35] VITALS: BP 138/97; PULSE 87; RESP 18; TEMP 36.6; O2SAT 97
[2024-09-05] MEDS: Ibuprofen 800 MG TABLET PO ×3 (10:45→18:08)
[2024-09-05] MEDS: QUEtiapine Fumarate 50 MG TABLET 150 MG PO ×2 (10:45→21:12)
[2024-09-05] MEDS: hydrOXYzine HCL 50 MG TABLET PO ×2 (10:45→21:12)
[2024-09-05 10:46] VITALS: BP 138/97
[2024-09-05] MEDS: Multivitamin TABLET 1 TAB PO (10:46)
[2024-09-05] MEDS: cloNIDine HCL 0.2 MG TABLET PO ×2 (10:46→21:11)
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
[2024-09-05] MEDS: Buprenorphine/Naloxone 8/2 mg FILM 1 FILM SUBLINGUAL (16:58)
[2024-09-05 21:00] VITALS: BP 121/55; PULSE 57; RESP 16; TEMP 36.9; O2SAT 98
[2024-09-05] MEDS: traZODone HCL 50 MG TABLET 150 MG PO (21:12)
[2024-09-05] MEDS: Mirtazapine 7.5 MG TABLET PO (21:12)
[2024-09-05] MEDS: Prazosin HCL 5 MG CAPSULE PO (21:12)
[2024-09-06] MEDS: Omeprazole 20 MG CAPSULE.DR PO (06:08)
[2024-09-06] MEDS: Amoxicillin/Potassium Clav 875 MG TABLET PO (06:08)
[2024-09-06 09:00] VITALS: BP 147/82; PULSE 85; RESP 16; TEMP 36.4; O2SAT 98
[2024-09-06] MEDS: Buprenorphine/Naloxone 8/2 mg FILM 1 FILM SUBLINGUAL (09:01)
[2024-09-06] MEDS: cloNIDine HCL 0.2 MG TABLET PO (09:02)
[2024-09-06] MEDS: QUEtiapine Fumarate 50 MG TABLET 150 MG PO (09:02)
[2024-09-06] MEDS: hydrOXYzine HCL 50 MG TABLET PO (09:02)
[2024-09-06] MEDS: Ibuprofen 800 MG TABLET PO (09:02)
[2024-09-06] MEDS: Multivitamin TABLET 1 TAB PO (09:02)
== END 2024-09-06 10:35 | disposition home or self-care (01) | DRG 754 ==
LOC: HO.ED 13:44 → HO.PADLT16 08-30 12:28
PROVIDERS: Emergency Medicine; Admitting Provider Psychiatry & Neurology Psychiatry; Emergency Provider Emergency Medicine; PCP Internal Medicine; Visit Provider Psychiatry & Neurology Psychiatry
DX: F32.A Depression, unspecified (principal); R45.851 Suicidal ideations; F43.12 Post-traumatic stress disorder, chronic; F11.20 Opioid dependence, uncomplicated; H92.01 Otalgia, right ear; F17.210 Nicotine dependence, cigarettes, uncomplicated; F14.10 Cocaine abuse, uncomplicated; K50.90 Crohn's disease, unspecified, without complications; K02.9 Dental caries, unspecified; Z71.6 Tobacco abuse counseling; Z79.899 Other long term (current) drug therapy
CPT/HCPCS: 36415; 70486; 80048; 80053; 80076; 80307; 81001; 83605; 85025; 93005; 99285; S9485

== ENCOUNTER → 2024-08-30 08:47 | Outpatient (BNV) | payer MEDICAID, SELFPAY | PROVIDERS: Admitting Provider Psychiatry & Neurology Psychiatry; Emergency Provider Emergency Medicine; PCP Internal Medicine; Visit Provider Internal Medicine | DX: I21.29 ST elevation (STEMI) myocardial infarction involving other sites (principal); R00.1 Bradycardia, unspecified | CPT/HCPCS: 93010 ==

== ENCOUNTER 2024-08-30 12:28 | Outpatient (BNV) | payer MEDICAID, SELFPAY | END 2024-09-03 11:28 | PROVIDERS: Admitting Provider Psychiatry & Neurology Psychiatry; Emergency Provider Emergency Medicine; PCP Internal Medicine; Visit Provider Radiology Diagnostic Radiology | DX: K02.9 Dental caries, unspecified (principal); K05.20 Aggressive periodontitis, unspecified | CPT/HCPCS: 70486 ==

== ENCOUNTER → 2024-08-30 12:28 | Outpatient (BNV) | payer MEDICAID, SELFPAY | PROVIDERS: Admitting Provider Psychiatry & Neurology Psychiatry; Emergency Provider Emergency Medicine; PCP Internal Medicine; Visit Provider Student in an Organized Health Care Education/Training Program | DX: H92.01 Otalgia, right ear (principal); K08.89 Other specified disorders of teeth and supporting structures | CPT/HCPCS: 99222; 99499 ==

== ENCOUNTER → 2024-08-30 12:28 | Outpatient (BNV) | payer OTHER, SELFPAY | PROVIDERS: Admitting Provider Psychiatry & Neurology Psychiatry; Emergency Provider Emergency Medicine; PCP Internal Medicine; Visit Provider Psychiatry & Neurology Psychiatry | DX: F14.10 Cocaine abuse, uncomplicated (principal); F11.20 Opioid dependence, uncomplicated; F43.11 Post-traumatic stress disorder, acute; R45.851 Suicidal ideations | CPT/HCPCS: 99231; 99232; 99233 ==

== ENCOUNTER 2024-09-09 18:17 | Inpatient (IN) | payer MEDICAID, OTHER, SELFPAY ==
[2024-09-09 18:31] VITALS: BP 119/76; BP 128/78; PULSE 51; PULSE 57; RESP 16; TEMP 37.1; O2SAT 98; O2SAT 99; BMI 21.4
[2024-09-09 18:33] VITALS: RESP 16
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
[2024-09-09] MEDS: LORazepam 1 MG TABLET 2 MG PO (19:11)
--- NOTE | 2024-09-09 19:15 | PC.NURSE ---
Patient appears to be in no apparent distress at this time, calm and cooperative, offering no complaints. Pt aware of plan of care for medical clearance and CARE team radha
--- NOTE | 2024-09-09 19:36 | PC.NURSE ---
RE; med rec This RN completed med rec with the discharge paperwork from this facility on 09/06. patient verified the last time he took his meds was two days ago right before his son , since then he has not taken his medications
[2024-09-09] MEDS: hydrOXYzine HCL 50 MG TABLET PO (20:04)
[2024-09-09] MEDS: cloNIDine HCL 0.2 MG TABLET PO (20:04)
[2024-09-09] MEDS: traZODone HCL 50 MG TABLET 150 MG PO (20:04)
[2024-09-09] MEDS: QUEtiapine Fumarate 50 MG TABLET 150 MG PO (20:04)
[2024-09-09] MEDS: Mirtazapine 7.5 MG TABLET PO (20:05)
[2024-09-09] MEDS: Buprenorphine/Naloxone 8/2 mg FILM 1 FILM SUBLINGUAL (20:05)
[2024-09-09] MEDS: Prazosin HCL 5 MG CAPSULE PO (20:46)
[2024-09-09 20:49] LABS: Imm Gran Abs Auto 0.03 X10*3/uL (0.00-0.03); Imm Gran Pct Auto 0.5 % (0.0-0.4); MANUAL DIFF FLAG SCAN; Mean Corpuscular HGB Conc 33.2 g/dl (31.0-36.0); PLT CLUMP 1; SCAN SMEAR FLAG 1
[2024-09-09 20:50] LABS: Alanine Aminotransferase 13 U/L (0-40); Albumin Level 4.8 g/dL (3.5-5.0); Alkaline Phosphatase 90 U/L (39-117); Anion Gap 18 (12-20); Aspartate Amino Transferase 25 U/L (5-37); Bilirubin Direct 0.2 mg/dL (0.0-0.5); Bilirubin Total 0.6 mg/dL (0.0-1.0); Blood Urea Nitrogen 36 mg/dL (9-16); Calcium 9.9 mg/dL (8.4-10.2); Carbon Dioxide 20 mmol/L (22-29); Chloride 104 mmol/L (96-108); Creatinine Clr Calc Pharmacy 57.2; Estimated Glomerular Filt Rate 53; Glucose Random 78 mg/dL (60-115); Potassium 4.8 mmol/L (3.3-5.1); Sodium 137 mmol/L (135-145); Total Protein 8.5 g/dL (6.5-8.0)
[2024-09-09 20:51] LABS: Basophils Absolute Auto 0.1 X10*3/uL (0.0-0.2); Basophils Percent Auto 0.9 % (0-2); Eosinophils Percent Auto 0.6 % (0-4); Ethanol < 10 mg/dL; Hematocrit 39.8 % (42.0-52.0); Hemoglobin 13.2 g/dl (14.0-18.0); Lymphocytes Absolute Auto 1.5 X10*3/uL (1.2-4.9); Lymphocytes Percent Auto 23.9 % (20-40); Mean Corpuscular Hemoglobin 27.8 pg (27.0-33.0); Mean Corpuscular Volume 83.8 fL (80.0-98.0); Mean Platelet Volume 10.2 fL (9.4-12.4); Monocytes Absolute Auto 0.5 X10*3/uL (0.1-1.2); NRBC Pct Auto 0.3 /100WBC (0.0-0.2); Neutrophils Absolute Auto 4.2 x10*3/uL (2.0-8.3); Neutrophils Percent Auto 66.1 % (45-73); Red Blood Count 4.75 X10*6/uL (4.60-5.80); Red Cell Distribution Width 15.4 % (11.0-16.0)
[2024-09-09 20:53] LABS: Amphetamine Screen Urine Not Detected (Not Detect); Barbiturates, Urine Not Detected (Not Detect); Benzodiazepines Screen Urine Not Detected (Not Detect); Buprenorphine Scr Positive (Not Detect); Cannabinoid Screen Urine POSITIVE (Not Detect); Cocaine Screen Urine POSITIVE (Not Detect); Fentanyl, urine Not Detected (Not Detect); Methadone Screen, Urine Not Detected (Not Detect); Opiate Screen Urine Not Detected (Not Detect); Oxycodone Screen Urine Not Detected (Not Detect); Phencyclidine Screen Urine Not Detected (Not Detect)
[2024-09-09 21:00] LABS: Platelet Count 240 X10*3/uL (160-400); White Blood Count 6.4 X10*3/uL (4.8-10.8)
[2024-09-09] MEDS: Loperamide HCl 2 MG CAPSULE PO (21:36)
--- NOTE | 2024-09-09 21:36 | PC.NURSE ---
pt had two episodes of diarrhea, provided with Imodium per MAR
[2024-09-09 22:22] LABS: SLIDE REVIEW VERIFIED
--- NOTE | 2024-09-10 05:39 | PC.NURSE ---
Patient slept through the night, no distress observed/reported, care consult ordered/pending evaluation, 15 minutes safety check, no behavior and safety check, will continue to monitor
[2024-09-10] MEDS: Omeprazole 20 MG CAPSULE.DR PO (06:03)
[2024-09-10 06:04] VITALS: RESP 16
--- NOTE | 2024-09-10 08:25 | PHA.MEDREC ---
Pharmacy Consult ? Medication Reconciliation Pharmacy has completed the medication reconciliation. Reviewed med rec done by nursing (Alesia).
[2024-09-10] MEDS: QUEtiapine Fumarate 50 MG TABLET 150 MG PO ×2 (08:50→22:48)
[2024-09-10] MEDS: Multivitamin TABLET 1 TAB PO (08:50)
[2024-09-10] MEDS: hydrOXYzine HCL 50 MG TABLET PO ×2 (08:51→22:48)
[2024-09-10 08:54] VITALS: BP 93/56
[2024-09-10] MEDS: cloNIDine HCL 0.2 MG TABLET PO (08:54)
[2024-09-10 08:56] VITALS: BP 93/66; PULSE 66; RESP 18; TEMP 36.6; O2SAT 98
--- NOTE | 2024-09-10 09:13 | PC.NURSE ---
Assumed care of patient at 0845, patient appears to be in no apparent distress this am, continuing to have epsiodes of diarrhea intermittently. continue plan of care for CARE team evaluation today
--- NOTE | 2024-09-10 09:55 | PC.NURSE ---
Pt refused suboxone dose this am, asking to hold it until a bit later
[2024-09-10 09:59] LABS: Anion Gap 16 (12-20); Blood Urea Nitrogen 37 mg/dL (9-16); Calcium 9.3 mg/dL (8.4-10.2); Carbon Dioxide 20 mmol/L (22-29); Chloride 102 mmol/L (96-108); Creatinine Clr Calc Pharmacy 64.5; Estimated Glomerular Filt Rate > 60; Glucose Random 138 mg/dL (60-115); Potassium 4.3 mmol/L (3.3-5.1); Sodium 134 mmol/L (135-145)
[2024-09-10 18:16] VITALS: BP 92/59; PULSE 48; RESP 18; O2SAT 99
[2024-09-10] MEDS: Buprenorphine/Naloxone 8/2 mg FILM 1 FILM SUBLINGUAL (18:17)
--- NOTE | 2024-09-10 18:17 | PC.NURSE ---
Pt requesting 9pm Suboxone dose early due to refusing his am dose. MD Cote okayed dose to be given early
--- NOTE | 2024-09-10 18:19 | PC.NURSE ---
MD Cote aware of low HR and low BP, no interventions at this time
[2024-09-10] MEDS: Prazosin HCL 5 MG CAPSULE PO (22:47)
[2024-09-10] MEDS: traZODone HCL 50 MG TABLET 150 MG PO (22:48)
[2024-09-10] MEDS: Mirtazapine 7.5 MG TABLET PO (22:48)
--- NOTE | 2024-09-10 22:57 | PC.NURSE ---
BPs soft during day. MD Cote aware and agreed to hold clonidine this evening. pt calm, cooperative, willingly accepted meds with juice. states needs are met at this time.
[2024-09-11 06:08] VITALS: RESP 16
--- NOTE | 2024-09-11 08:29 | ECG_ITS ---
Test Reason : CHECK CARDIAC STATUS Blood Pressure : */* mmHG Vent. Rate : 61 BPM Atrial Rate : 61 BPM P-R Int : 148 ms QRS Dur : 92 ms QT Int : 414 ms P-R-T Axes : 59 5 29 degrees QTcB Int : 416 ms Normal sinus rhythm Possible Left atrial enlargement Left ventricular hypertrophy ( R in aVL , Sotero product ) ST elevation, consider early repolarization Abnormal ECG When compared with ECG of 30-Aug-2024 08:47, No significant change was found Referred By: Generic ED Physician Electronically Signed By: Alvaro Schulte
[2024-09-11] MEDS: QUEtiapine Fumarate 50 MG TABLET 150 MG PO ×2 (11:30→21:11)
[2024-09-11] MEDS: Buprenorphine/Naloxone 8/2 mg FILM 1 FILM SUBLINGUAL (11:30)
[2024-09-11] MEDS: hydrOXYzine HCL 50 MG TABLET PO ×2 (11:30→21:12)
[2024-09-11 11:34] VITALS: BP 135/85
[2024-09-11] MEDS: cloNIDine HCL 0.2 MG TABLET PO ×2 (11:34→21:11)
[2024-09-11] MEDS: Omeprazole 20 MG CAPSULE.DR PO (11:34)
[2024-09-11 15:01] LABS: Appearance Urine Clear; Color Urine Yellow; Glucose Urine UA Negative (Negative); Leukocyte Esterase Urine Negative (Negative); Nitrite Urine Negative (Negative); PH 5.5 (5.0-9.0); Specific Gravity - Urine 1.025 (1.005-1.025); Urine Blood Negative (Negative); Urine Ketones Negative (Negative); Urine Protein Trace mg/dL (Neg-Trace)
[2024-09-11 15:05] LABS: Bacteria Urine None Seen (None Seen); Hyaline Casts Urine 0-2 /LPF (0-2); RBC Urine 0-2 /HPF (0-2); Squamous Epithelial Cell Urine 0-2 /HPF (0-2); WBC Urine 0-5 /HPF (0-5)
[2024-09-11 15:16] VITALS: BP 107/51; PULSE 56; RESP 13; TEMP 36.4; O2SAT 99
[2024-09-11 20:00] VITALS: BP 108/74; PULSE 68; RESP 16; TEMP 36.8; O2SAT 98
[2024-09-11 21:00] VITALS: BMI 22.1
[2024-09-11 21:11] VITALS: BP 108/74
[2024-09-11] MEDS: Prazosin HCL 5 MG CAPSULE PO (21:11)
[2024-09-11] MEDS: Mirtazapine 7.5 MG TABLET PO (21:11)
[2024-09-11] MEDS: traZODone HCL 50 MG TABLET 150 MG PO (21:12)
--- NOTE | 2024-09-12 | PC.ADMIT ---
Brian Lu is a 49 YOM with past medical hx depression and PTSD, presented to the ED pod with complaints of SI with plan to jump off the bridge or OD on heroin. pt arrived on M3 at 1950 with admitting diagnosis for SI. pt is alert and oriented x3, very pleasant, calm and quiet, complaint with the admission process. VSS unremarkable. pt signed a CV. No visible skin issues noted. pt reports anxiety and depression stating its high there. pt attributes his anxiety and depression to the passing of his son last week, stating I am hurting, people say when someone dies you don't feel it in the heart but am feeling it right in here; pointing at his chest . pt continued to state, he's not my biological son but i love him so much as though he was mine own . pt endorses SI with no plan while here in the hospital but stated, I will do something when I get out there when asked to elaborate, he couldn't specify. pt continues to report that I took a lot of pills on and couldn't remember anything, all I know is, on Wednesday, my girlfriend took me to shower me and then called EMS to bring me here . pt also endorses AH stating the voices are telling me bad things about myself and also telling me to hurt myself pt reports he will come to nurse when having thoughts to harm self. pt contracted for safety, ambulates with steady gait, denies pain.
[2024-09-12 08:39] VITALS: BP 142/93; PULSE 83; RESP 18; TEMP 36.4; O2SAT 99
[2024-09-12] MEDS: QUEtiapine Fumarate 50 MG TABLET 150 MG PO ×2 (08:40→20:38)
[2024-09-12] MEDS: Multivitamin TABLET 1 TAB PO (08:41)
[2024-09-12] MEDS: cloNIDine HCL 0.2 MG TABLET PO ×2 (08:41→20:38)
[2024-09-12] MEDS: hydrOXYzine HCL 50 MG TABLET PO ×2 (08:41→20:38)
[2024-09-12] MEDS: Buprenorphine/Naloxone 8/2 mg FILM 1 FILM SUBLINGUAL (08:42)
[2024-09-12] MEDS: Omeprazole 20 MG CAPSULE.DR PO (08:42)
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
[2024-09-12] MEDS: hydrOXYzine HCL 25 MG TABLET PO (16:57)
[2024-09-12] MEDS: QUEtiapine Fumarate 50 MG TABLET PO (16:58)
[2024-09-12 20:30] VITALS: BP 117/72; PULSE 70; RESP 16; TEMP 36.9; O2SAT 99
[2024-09-12] MEDS: Prazosin HCL 5 MG CAPSULE PO (20:37)
[2024-09-12] MEDS: Mirtazapine 7.5 MG TABLET PO (20:37)
[2024-09-12] MEDS: traZODone HCL 50 MG TABLET 150 MG PO (20:40)
[2024-09-13 08:54] VITALS: BP 119/71; PULSE 70; RESP 16; TEMP 36.6; O2SAT 99
[2024-09-13] MEDS: Multivitamin TABLET 1 TAB PO (08:55)
[2024-09-13] MEDS: cloNIDine HCL 0.2 MG TABLET PO ×2 (08:55→21:32)
[2024-09-13] MEDS: QUEtiapine Fumarate 50 MG TABLET 150 MG PO ×2 (08:56→21:32)
[2024-09-13] MEDS: hydrOXYzine HCL 50 MG TABLET PO ×2 (08:56→21:32)
[2024-09-13] MEDS: Omeprazole 20 MG CAPSULE.DR PO (08:56)
[2024-09-13] MEDS: QUEtiapine Fumarate 50 MG TABLET PO (11:05)
[2024-09-13] MEDS: hydrOXYzine HCL 25 MG TABLET PO (11:05)
--- NOTE | 2024-09-13 15:23 | MHC.RECOVRN ---
Addiction consult received for pt. Attempted to meet with pt however he declined conversing with this senior technical writer. Encouraged pt to ask to speak with Recovery team if questions/concerns arise.
--- NOTE | 2024-09-13 15:30 | HO.PSYCHPN ---
Subjective Subjective Date of Service: 09/13/24 Reason For Visit: SI Interim History: reiterates plan to go to [place]. says family suggested he see if MD would allow him to stay through weekend. notes if pt allows [facility] to coordinate care with brother and aunt in [place], then yes. otherwise, discharge wednesday. MD informs pt that if he returns in the near future to [facility] a section 35 would be pursued. pt has withdrawn his 3-day notice. per staff, c/o [facility]. crying. not feeling safe with discharge. Mental Status Exam Mental Status Exam Narrative: Pt is alert, oriented; no PMA/PMR; dressed in casual attire; mood is depressed; eye contact appropriate; Speech is normal rate, volume and not pressured, nml amount; thought process is organized, negativistic; Thought content is on Tx and future plans; no SI/HI/AVH expressed. Diagnostics Vital Signs (24Hr): Vital Signs - 24 hr 09/12/24 20:30 09/13/24 08:54 Temperature 98.4 F 97.8 F Pulse Rate 70 70 Respiratory Rate 16 16 Blood Pressure 117/72 119/71 Pulse Oximetry 99 99 Oxygen Delivery Method Room Air Room Air BMI result Body Mass Index 22.1 Labs 09/09/24 20:26 09/10/24 09:35 Medications Medications Current Medications Acetaminophen (Acetaminophen 325 Mg Tablet) 650 mg PO Q6H PRN PRN Reason: Headache/Pain, Scale 1-10 Buprenorphine/Naloxone (Buprenorphine/Naloxone 8/2 Mg Film) 1 film SUBLINGUAL BID@0900,1500 [facility] Clonidine HCl (Clonidine Hcl 0.2 Mg Tablet) 0.2 mg PO BID NEIDA; Protocol Last Admin: 09/13/24 08:55 Dose: 0.2 mg Hydroxyzine HCl (Hydroxyzine Hcl 50 Mg Tablet) 50 mg PO BID [facility] Last Admin: 09/13/24 08:56 Dose: 50 mg Hydroxyzine HCl (Hydroxyzine Hcl 25 Mg Tablet) 25 mg PO Q6H PRN PRN Reason: mild anxiety Last Admin: 09/13/24 11:05 Dose: 25 mg Mirtazapine (Mirtazapine 7.5 Mg Tablet) 7.5 mg PO BEDTIME [facility] Last Admin: 09/12/24 20:37 Dose: 7.5 mg Multivitamins/Vitamin C (Multivitamin Tablet) 1 tab PO DAILY [facility] Last Admin: 09/13/24 08:55 Dose: 1 tab Nicotine Polacrilex (Nicotine Polacrilex 2 Mg Gum) 4 mg BUCCAL Q2H PRN PRN Reason: Nicotine Cravings Omeprazole (Omeprazole 20 Mg Capsule.Dr) 20 mg PO DAILY@0630 [facility] Last Admin: 09/13/24 08:56 Dose: 20 mg Prazosin HCl (Prazosin Hcl 5 Mg Capsule) 5 mg PO BEDTIME NEIDA; Protocol Last Admin: 09/12/24 20:37 Dose: 5 mg Quetiapine Fumarate (Quetiapine Fumarate 50 Mg Tablet) 150 mg PO BID [facility] Last Admin: 09/13/24 08:56 Dose: 150 mg Quetiapine Fumarate (Quetiapine Fumarate 50 Mg Tablet) 50 mg PO Q4H PRN PRN Reason: AH Last Admin: 09/13/24 11:05 Dose: 50 mg Trazodone HCl (Trazodone Hcl 50 Mg Tablet) 150 mg PO BEDTIME [facility] Last Admin: 09/12/24 20:40 Dose: 150 mg Allergies Allergies Allergy/AdvReac Type Severity Reaction Status Date / Time haloperidol [From Haldol] AdvReac see note Verified 09/09/24 18:33 Assessment & Plan Assessment & Plan (1) Opioid use disorder, severe, dependence: Status: Acute Code(s): F11.20 - Opioid dependence, uncomplicated (2) Post traumatic stress disorder (PTSD): Status: Acute Code(s): F43.10 - Post-traumatic stress disorder, unspecified (3) Depression: Status: Acute Code(s): F32.A - Depression, unspecified Plan 09/12: supportive care for cocaine withdrawal. suboxone for opioid use disorder. restart home meds for depression and PTSD. encourage recovery work/engagement. support mental health services outpt - research grief group options. 09/13: pt to get aunt and brother's contact info to MARILU Gee for coordination of move to [place]. planning for wednesday discharge if no such information is forthcoming. informed pt that if he discharges and returns in short order to [facility] with cocaine POS utox, section 35 would be pursued. Reason for continued inpatient stay Substantial Risk for: inability to function Time Spent With Patient Time: Total time managing care of this patient today __25__ minutes.
[2024-09-13] MEDS: Buprenorphine/Naloxone 2/0.5mg FILM 1 FILM SUBLINGUAL (16:11)
[2024-09-13 21:20] VITALS: BP 137/88; PULSE 70; RESP 16; TEMP 36.3; O2SAT 99
[2024-09-13] MEDS: traZODone HCL 50 MG TABLET 150 MG PO (21:31)
[2024-09-13] MEDS: Mirtazapine 7.5 MG TABLET PO (21:33)
[2024-09-13] MEDS: Prazosin HCL 5 MG CAPSULE PO (21:33)
[2024-09-14 08:40] VITALS: BP 133/76; PULSE 59; RESP 16; TEMP 37.1; O2SAT 97
[2024-09-14 08:43] VITALS: BP 133/76
[2024-09-14] MEDS: cloNIDine HCL 0.2 MG TABLET PO ×2 (08:43→20:32)
[2024-09-14] MEDS: Multivitamin TABLET 1 TAB PO (08:43)
[2024-09-14] MEDS: QUEtiapine Fumarate 50 MG TABLET 150 MG PO ×2 (08:43→20:31)
[2024-09-14] MEDS: hydrOXYzine HCL 50 MG TABLET PO ×2 (08:43→20:32)
[2024-09-14] MEDS: Omeprazole 20 MG CAPSULE.DR PO (08:43)
[2024-09-14] MEDS: Buprenorphine/Naloxone 8/2 mg FILM 1 FILM SUBLINGUAL ×2 (08:44→14:49)
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
[2024-09-14] MEDS: hydrOXYzine HCL 25 MG TABLET PO (12:46)
[2024-09-14] MEDS: QUEtiapine Fumarate 50 MG TABLET PO (12:46)
[2024-09-14] MEDS: Acetaminophen 325 MG TABLET 650 MG PO ×2 (14:48→20:32)
[2024-09-14 20:00] VITALS: BP 119/76; PULSE 60; RESP 18; TEMP 36.4; O2SAT 98
[2024-09-14 20:31] VITALS: BP 119/76
[2024-09-14] MEDS: Prazosin HCL 5 MG CAPSULE PO (20:31)
[2024-09-14 20:32] VITALS: BP 119/76
[2024-09-14] MEDS: traZODone HCL 50 MG TABLET 150 MG PO (20:32)
[2024-09-14] MEDS: Mirtazapine 7.5 MG TABLET PO (20:32)
--- NOTE | 2024-09-15 06:44 | PC.NURSE ---
Brian stated he did not want to be woken for 0630 medication. Will take with 0900 scheduled AM meds
[2024-09-15 08:00] VITALS: BP 133/80; PULSE 54; PULSE 80; RESP 14; RESP 18; TEMP 37.2; O2SAT 97
[2024-09-15] MEDS: Omeprazole 20 MG CAPSULE.DR PO (08:35)
[2024-09-15] MEDS: cloNIDine HCL 0.2 MG TABLET PO (08:35)
[2024-09-15] MEDS: Buprenorphine/Naloxone 8/2 mg FILM 1 FILM SUBLINGUAL (08:35)
[2024-09-15] MEDS: Multivitamin TABLET 1 TAB PO (08:36)
[2024-09-15] MEDS: hydrOXYzine HCL 50 MG TABLET PO (08:36)
[2024-09-15] MEDS: QUEtiapine Fumarate 50 MG TABLET 150 MG PO (08:36)
== END 2024-09-15 11:16 | disposition home or self-care (01) | DRG 754 ==
LOC: HO.ED 19:07 → HO.PADLT16 09-11 18:19
PROVIDERS: Nurse Practitioner Family; Admitting Provider Social Worker; Emergency Provider Emergency Medicine; PCP Internal Medicine; Visit Provider Psychiatry & Neurology Psychiatry
DX: F32.A Depression, unspecified (principal); R45.851 Suicidal ideations; F17.210 Nicotine dependence, cigarettes, uncomplicated; F11.20 Opioid dependence, uncomplicated; Z71.6 Tobacco abuse counseling; F43.12 Post-traumatic stress disorder, chronic; F14.90 Cocaine use, unspecified, uncomplicated; Z63.4 Disappearance and death of family member; Z79.899 Other long term (current) drug therapy
CPT/HCPCS: 36415; 80048; 80076; 80307; 81001; 81003; 85025; 93005; 99285; S9485

== ENCOUNTER → 2024-09-11 08:29 | Outpatient (BNV) | payer MEDICAID, SELFPAY | PROVIDERS: Admitting Provider Social Worker; Emergency Provider Emergency Medicine; PCP Internal Medicine; Visit Provider Internal Medicine Cardiovascular Disease | DX: I51.7 Cardiomegaly (principal) | CPT/HCPCS: 93010 ==

== ENCOUNTER → 2024-09-11 18:05 | Outpatient (BNV) | payer OTHER, SELFPAY | PROVIDERS: Admitting Provider Social Worker; Emergency Provider Emergency Medicine; PCP Internal Medicine; Visit Provider Psychiatry & Neurology Psychiatry | DX: F33.2 Major depressive disorder, recurrent severe without psychotic features (principal); F11.20 Opioid dependence, uncomplicated; F43.11 Post-traumatic stress disorder, acute | CPT/HCPCS: 99231; 99232; 99233 ==

== ENCOUNTER 2024-09-26 21:10 | Inpatient (IN) | payer OTHER, SELFPAY ==
--- NOTE | ~2024-09-26 | US_ITS ---
EXAMINATION: US LOWER EXTREMITY VEINS LIMITED FOLLOW UP RIGHT HISTORY: Right calf pain COMPARISON: Comparison is made with the prior examination dated 11/21/2018. TECHNIQUE: Duplex and color Doppler sonographic examination of the deep venous system of the right lower extremity was performed. FINDINGS: The common femoral, superficial femoral, and popliteal veins are patent demonstrating normal compressibility, spontaneous flow, and augmentation. There is a normal color and spectral Doppler waveform appearance of the visualized deep venous system above the knee. The posterior tibial and peroneal veins are patent. US/US venous duplex LE RT IMPRESSION: No evidence of acute DVT in the right lower extremity. Electronically signed by: Richard Alvarado MD 09/27/2024 03:48 PM EDT
--- OUTSIDE RECORDS SUMMARY | 2024-09-26 21:12 | XMS_ITS | Clinical Summary ---
Author Organization [facility] Address [address] [place] [address] Care Team Providers Care [employer] Consultant Name Role Phone Clotilde Baca MD Primary Care Provider Allergies No known active allergies Medications * This document contains information received from the source organization and may not represent a complete record from that organization. gabapentin (NEURONTIN) 300 mg capsule Take 1 capsule (300 mg total) by mouth every 8 hours. 45 capsule 1 08/17/2024 Active hydrOXYzine HCL (ATARAX) 50 mg tablet Take 1 tablet (50 mg total) by mouth 2 (two) times a day. 30 tablet 08/17/2024 Active cloNIDine (CATAPRES) 0.2 mg tablet Take 1 tablet (0.2 mg total) by mouth 2 times a day. 30 tablet 08/17/2024 Active melatonin 3 mg tablet Take 2 tablets (6 mg total) by mouth nightly. 15 tablet 08/17/2024 Active mirtazapine (REMERON) 7.5 mg tablet Take 1 tablet (7.5 mg total) by mouth nightly. 15 tablet 08/17/2024 Active QUEtiapine XR (SEROquel XR) 300 mg tablet Take 1 tablet (300 mg total) by mouth nightly. 15 tablet 08/17/2024 Active traZODone (DESYREL) 150 mg tablet Take 1 tablet (150 mg total) by mouth nightly. 15 tablet 08/17/2024 Active multivitamin tablet Take 1 tablet by mouth once a day. 30 tablet 08/17/2024 Active lactobacillus acidophilus-L. bulgaricus (FLORANEX) 1 million cell tablet Take 1 tablet by mouth once a day. 30 tablet 08/17/2024 Active loperamide (IMODIUM) 2 mg capsule Take 1 capsule (2 mg total) by mouth daily as needed for diarrhea. 7 capsule 08/17/2024 Active prazosin (MINIPRESS) 5 mg capsule Take 1 capsule (5 mg total) by mouth nightly. 15 capsule 1 08/17/2024 Active Active Problems Problem Noted Date Diagnosed Date Depression 08/17/2024 PTSD (post-traumatic stress disorder) 2019 Opioid use disorder, severe, on maintenance therapy, dependence 2019 Major depressive disorder, recurrent episode, se jennie 12/28/2018 Resolved Problems Problem Noted Date Diagnosed Date Resolved Date Bacterial endocarditis 01/12/201901/12 Social History Tobacco Use Types Packs/Day Years Used Date Smoking Tobacco: Every Day Cigarettes 1 35.7 Started: 12/28/1988 Smokeless Tobacco: Never Tobacco Cessation:Counseling Given: Yes Alcohol Use Standard Drinks/Week Comments Not Currently 0 (1 standard drink = 0.6 oz pur e alcohol) Sex and Gender Information Value Date Recorded Sex Assigned at Male 08/11/2024 12:23 PM EDT Legal Sex Male 1:57 PM EDT Gender Identity Not on file Sexual Orientation Not on file Last Filed Vital Signs Vital Sign Reading Time Taken Comments Blood Pressure 108/66 08/17/2024 8:09 AM EDT Pulse 60 08/17/2024 8:09 AM EDT Temperature 36.7 ??C (98 ??F) 08/17/2024 8:09 AM EDT Respiratory Rate 18 08/16/2024 6:25 PM EDT Oxygen Saturation 97% 08/17/2024 8:09 AM EDT Inhaled Oxygen Concentration - - Weight 79.4 kg (175 lb) 08/11/2024 5:49 PM EDT Height 180.3 cm (5' 10.98 ) 08/11/2024 5:49 PM E DT Body Mass Index 24.42 08/11/2024 5:49 PM EDT Plan of Treatment Health Maintenance Due Date Last Done Comments Cologuard 1973 Colon Cancer Screening 1973 Colonoscopy 1973 FOBT / Fit Test 1973 HIV Screening 1973 Hepatitis C Screening 1973 Sigmoidoscopy 1973 Hepatitis B Vaccines (1 of 3 - 19+ 3-dose series) 01/13/1992 Pneumococcal Vaccine: 50+ Ye ars (1 of 2 - PCV) 01/13/1992 DTaP,Tdap,and Td Vaccines (1 - Tdap) 01/19/201912/26, 09/28/2016 CT Lung Cancer Screening (Baseline) 2023 Zoster Vaccines (1 of 2) 2023 COVID-19 Vaccine (3 - season) 12/26/202306/2020, 05/29/2020 Alcohol/Substance Use Screening 04/26/2024 Depression Screening and Follow-Up 04/26/2024 Social Drivers of Health Annual Screening 04/26/2024 Influenza Vaccine (Season Ended) 2024 RSV Vaccine (60+ years old a nd patients) (1 - 1-dose 75+ series) 01/13/2048 Abdominal Aortic Aneurysm (AAA) Screening Completed 05/27/2024 Procedures * Due to [facility] law, this organization might not be sharing negative HIV tests. Procedure Name Priority Date/Time Associated Diagnosis Comments RAPID COVID-19 RNA FOR SURVEILLANCE (ED ONLY) STAT 08/11/2024 11:39 AM EDT from Last 3 Months Results * Due to [place] [employer] law, this organization might not be sharing negative HIV tests. * Rapid COVID-19 RNA for Surveillance (08/11/2024 11:39 AM EDT) [facility] PCR, SARS CoV-2 RNA Not Detected Not Detected CEPHEID GENEXPERT 08/11/2024 12:35 PM EDT [facility] Comment:A Not Detected (Nega tive) test result is indicative of the absence of SARS-CoV-2 RNA at the level of LoD (Limit of Detection). A negative result does not rule out the possibility of COVID-19 and should not be used as the sole basis for treatment or patient management decisions. If COVID-19 is still suspected, based on exposure history together with other clinical findings, re-testing should be considered. Swab (Nares) Non-Blood Collection / Unknown 08/11/2024 11:39 AM EDT 08/11/2024 11:45 AM EDT Narrative [facility] - 08/11/2024 12:35 PM EDT This test was developed, validated and its performance characteristics determined by [facility]. This test has not been cleared or approved by the U.S. Food and Drug Administration (FDA). FDA Policy for Diagnostic Tests for Coronavirus Disease-2019 during the Public Health Emergency issued July 10, 2019, is followed. us Manuel Blanchard MD LAB BODY FLUIDS AND STOOLS ORDER DU Final Result [facility] [address] [place] [address], [place] from Last 3 Months Insurance [facility] Advance Directives Documents on File Type Date Recorded Patient Manager Sales Support Expl anation MOLST 01/13/2019 2:43 PM 12/01/18 Health Care Proxy 01/13/2019 2:43 PM 9 Health Care Proxy 01/13/2019 2:43 PM Check list 12/28/18 * Full Code (Latest Code Status on File) Date Activated Date Inactivated Comments 08/15/2024 10:41 AM 08/17/2024 1:32 PM * Full Code Date Activated Date Inactivated Comments 08/11/2024 7:22 PM 08/15/2024 9:37 AM * Full Code Date Activated Date Inactivated Comments 12/28/2018 3:55 PM 01/13/2019 3:32 PM Care Teams [employer] Consultant Relationship Specialty Start Date End Date Clotilde Baca MD [address] [place] [address] PCP - General Internal Medicine 08/11/24
[2024-09-26 21:30] VITALS: BP 143/90; PULSE 109; RESP 18; TEMP 36.4; O2SAT 96
[2024-09-26] MEDS: QUEtiapine Fumarate 50 MG TABLET 150 MG PO (22:23)
[2024-09-26] MEDS: traZODone HCL 50 MG TABLET 150 MG PO (22:23)
[2024-09-26] MEDS: Prazosin HCL 5 MG CAPSULE PO (22:23)
[2024-09-26] MEDS: hydrOXYzine HCL 50 MG TABLET PO (22:24)
[2024-09-26] MEDS: cloNIDine HCL 0.2 MG TABLET PO (22:24)
[2024-09-26] MEDS: Mirtazapine 7.5 MG TABLET PO (22:24)
[2024-09-26 22:25] VITALS: BP 147/84; PULSE 75; RESP 16
[2024-09-26] MEDS: Acetaminophen 325 MG TABLET 650 MG PO (23:43)
--- NOTE | 2024-09-27 01:12 | PC.ADMIT ---
Brian is a 49 year old Bilingual (Greek/Croatian) male that was admitted to [facility] from [facility] on a 12B.Patient admitted to [facility] on an attempted SI by overdose utilizing heroin/cocaine/and Trazodone. Patient did not wish to come to [facility] and became agitated was given IM Zyprexa 20mg and IM Versed 5mg prior to being brought to [facility] in the ambulance. On arrival patient reported anxiety 10/10 and depression 10/10. Patient also continues to report suicidal ideation with no plan while inpatient. Patient also reports command auditory hallucinations of voices telling him to kill himself. Skin check done and was unremarkable and was placed on 15 minute safety checks. Utox positive for fentanyl, cocaine, and marijuana.
--- NOTE | 2024-09-27 01:51 | PM.EVENT ---
Event Note Date of Service: 09/27/24 Event Note: pt is a 49 yo male admitted to adult psych M3 for SI. hospitalist consult placed for medical clearance for the psych floor. attempted to see pt but was told by nursing staff the the pt will not be cooperative for consult and he is medicated and sleeping. Time Spent With Patient Time: Total time managing care of this patient today ____ minutes.
[2024-09-27 02:46] VITALS: BMI 22.1
[2024-09-27] MEDS: Omeprazole 20 MG CAPSULE.DR PO (07:00)
[2024-09-27 08:54] VITALS: BP 139/89; PULSE 92; RESP 16; TEMP 36.6; O2SAT 99
[2024-09-27] MEDS: QUEtiapine Fumarate 50 MG TABLET 150 MG PO ×2 (08:58→21:40)
[2024-09-27] MEDS: Multivitamin TABLET 1 TAB PO (08:59)
[2024-09-27] MEDS: cloNIDine HCL 0.2 MG TABLET PO ×2 (08:59→21:42)
[2024-09-27] MEDS: Buprenorphine/Naloxone 8/2 mg FILM 1 FILM SUBLINGUAL ×2 (09:00→15:33)
[2024-09-27] MEDS: hydrOXYzine HCL 50 MG TABLET PO ×2 (09:00→15:50)
[2024-09-27] MEDS: Nicotine 21 MG PATCH.TD24 TRANSDERMA (09:01)
[2024-09-27] MEDS: Acetaminophen 325 MG TABLET 650 MG PO (09:22)
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
[2024-09-27] MEDS: Loperamide HCl 2 MG CAPSULE PO (10:46)
[2024-09-27] MEDS: Ibuprofen 600 MG TABLET PO (15:32)
[2024-09-27 20:00] VITALS: BP 138/83; PULSE 70; RESP 16; TEMP 36.4; O2SAT 100
[2024-09-27] MEDS: traZODone HCL 50 MG TABLET 150 MG PO (21:39)
[2024-09-27 21:41] VITALS: BP 135/88
[2024-09-27] MEDS: Mirtazapine 7.5 MG TABLET PO (21:41)
[2024-09-27] MEDS: Prazosin HCL 5 MG CAPSULE PO (21:41)
[2024-09-27 21:42] VITALS: BP 135/88
[2024-09-28] MEDS: Omeprazole 20 MG CAPSULE.DR PO (06:56)
[2024-09-28 07:00] VITALS: BMI 22.6
[2024-09-28 09:52] VITALS: BP 133/85; PULSE 99; RESP 16; TEMP 36.8; O2SAT 97
[2024-09-28] MEDS: QUEtiapine Fumarate 50 MG TABLET 150 MG PO ×2 (09:53→20:25)
[2024-09-28] MEDS: Nicotine 21 MG PATCH.TD24 TRANSDERMA (09:53)
[2024-09-28] MEDS: Multivitamin TABLET 1 TAB PO (09:54)
[2024-09-28] MEDS: cloNIDine HCL 0.2 MG TABLET PO ×2 (09:54→20:26)
[2024-09-28] MEDS: Buprenorphine/Naloxone 8/2 mg FILM 1 FILM SUBLINGUAL ×2 (09:54→14:57)
--- NOTE | 2024-09-28 10:33 | HO.PSYCHPN ---
Subjective Subjective Date of Service: 09/28/24 Reason For Visit: SI Subjective Notes: Section 12B Interim History: I am going to be Sectioned tomorrow. I know I need it, I can't live on the streets and stay alive. Discussed plan of care. Reports an increase in depressive sx, anxiety, auditory perceptual alterations. Discussed medicine options to address these issues prior to discharge, scheduled for 09/29. Medication Compliance: Yes Side effects from medications: No Attending Groups: No Review of Systems Acute medical concerns: No Medical Review of Systems: unchanged Review of Systems Review of Systems No Mental Status Exam Mental Status Exam Patient Appearance: Fatigued Patient Orientation: Person, Place, Time and Situation Level of Consciousness: Alert Patient Behavior: Talkative and Good Eye Contact Mood Description: Withdrawn and Depressed Affect Description: Flat Patient Cognition Impaired: No Ability to Follow Directions: Good Speech Pattern: Spontaneous Speech Memory Description: Episodic Impaired Hallucinations: Auditory Thought Process: Rumination Thought Content: positive for Circumstantial and positive for Perseveration Depressive Symptoms: Increased Anxiety, Hopelessness, Low Self Esteem and Difficulty Concentrating Judgement: Poor Diagnostics Vital Signs (24Hr): Vital Signs - 24 hr 09/27/24 20:00 09/27/24 21:41 09/27/24 21:42 Temperature 97.6 F Pulse Rate 70 Respiratory Rate 16 Blood Pressure 138/83 135/88 135/88 Pulse Oximetry 100 Oxygen Delivery Method Room Air 09/28/24 09:52 Temperature 98.3 F Pulse Rate 99 Respiratory Rate 16 Blood Pressure 133/85 Pulse Oximetry 97 Oxygen Delivery Method Room Air BMI result Body Mass Index 22.1 Imaging Radiology Impressions: ITS Impressions Venous Duplex 09/27/24 14:40 IMPRESSION: No evidence of acute DVT in the right lower extremity. Electronically signed by: Richard Alvarado MD 09/27/2024 03:48 PM EDT RP Medications Medications Current Medications Acetaminophen (Acetaminophen 325 Mg Tablet) 650 mg PO Q6H PRN PRN Reason: Headache/Pain, Scale 1-10 Last Admin: 09/27/24 09:22 Dose: 650 mg Al Hydroxide/Mg Hydroxide (Magnesium Hydrox/Alum Hydrox 30 Ml Oral.Susp) 30 ml PO Q6H PRN PRN Reason: Heartburn/Nausea Buprenorphine/Naloxone (Buprenorphine/Naloxone 8/2 Mg Film) 1 film SUBLINGUAL BID@0900,1500 [facility] Last Admin: 09/28/24 09:54 Dose: 1 film Capsaicin (Capsaicin 0.025% Cream 60 Gm Tube) 1 appl TOPICAL QID PRN; Protocol PRN Reason: leg pain Clonidine HCl (Clonidine Hcl 0.2 Mg Tablet) 0.2 mg PO BID [facility]; Protocol Last Admin: 09/28/24 09:54 Dose: 0.2 mg Dicyclomine HCl (Dicyclomine Hcl 10 Mg Capsule) 10 mg PO QIDACHS PRN PRN Reason: GI spasm Hydroxyzine HCl (Hydroxyzine Hcl 50 Mg Tablet) 50 mg PO Q4H PRN PRN Reason: anxiety Last Admin: 09/27/24 15:50 Dose: 50 mg Ibuprofen (Ibuprofen 600 Mg Tablet) 600 mg PO Q6H PRN PRN Reason: aches Last Admin: 09/27/24 15:32 Dose: 600 mg Loperamide HCl (Loperamide Hcl 2 Mg Capsule) 2 mg PO Q6H PRN PRN Reason: Diarrhea Last Admin: 09/27/24 10:46 Dose: 2 mg Magnesium Hydroxide (Milk Of Magnesia 30 Ml Oral.Susp) 30 ml PO DAILY PRN PRN Reason: Constipation Mirtazapine (Mirtazapine 7.5 Mg Tablet) 7.5 mg PO BEDTIME [facility] Last Admin: 09/27/24 21:41 Dose: 7.5 mg Multivitamins/Vitamin C (Multivitamin Tablet) 1 tab PO DAILY [facility] Last Admin: 09/28/24 09:54 Dose: 1 tab Nicotine (Nicotine 21 Mg Patch.Td24) 21 mg TRANSDERMA DAILY [facility] Last Admin: 09/28/24 09:53 Dose: 21 mg Nicotine Polacrilex (Nicotine Polacrilex 2 Mg Gum) 4 mg BUCCAL Q2H PRN PRN Reason: Nicotine Cravings Omeprazole (Omeprazole 20 Mg Capsule.Dr) 20 mg PO DAILY@0630 [facility] Last Admin: 09/28/24 06:56 Dose: 20 mg Prazosin HCl (Prazosin Hcl 5 Mg Capsule) 5 mg PO BEDTIME [facility]; Protocol Last Admin: 09/27/24 21:41 Dose: 5 mg Quetiapine Fumarate (Quetiapine Fumarate 50 Mg Tablet) 150 mg PO BID [facility] Last Admin: 09/28/24 09:53 Dose: 150 mg Trazodone HCl (Trazodone Hcl 50 Mg Tablet) 150 mg PO BEDTIME [facility] Last Admin: 09/27/24 21:39 Dose: 150 mg Allergies Allergies Allergy/AdvReac Type Severity Reaction Status Date / Time haloperidol [From Haldol] AdvReac see note Verified 09/09/24 18:33 Assessment & Plan Assessment & Plan (1) Depression: Status: Acute Code(s): F32.A - Depression, unspecified (2) Personality disorder: Status: Acute Code(s): F60.9 - Personality disorder, unspecified (3) Opioid use disorder, severe, dependence: Status: Acute Code(s): F11.20 - Opioid dependence, uncomplicated (4) Cocaine use disorder: Status: Acute Code(s): F14.10 - Cocaine abuse, uncomplicated Plan restart prior meds. comfort meds for opioid and cocaine withdrawal. section 35. patient has been informed this is the plan. 09/29/23: Increase Remeron from 7.5 mg hs to 15 mg [id number], anxiety Olanzapine 5 mg po [id number], depression, anxiety Section 35 scheduled for 09/29/24. Continue tx Reason for continued inpatient stay Substantial Risk for: rapid decompensation Time Spent With Patient Time: Total time managing care of this patient today ____ minutes.
[2024-09-28] MEDS: hydrOXYzine HCL 50 MG TABLET PO (12:32)
[2024-09-28] MEDS: Dicyclomine HCl 10 MG CAPSULE PO ×2 (12:33→20:25)
[2024-09-28 19:45] VITALS: BP 155/76; PULSE 82; RESP 16; TEMP 36.4; O2SAT 99
[2024-09-28] MEDS: OLANZapine 5 MG TABLET PO (20:25)
[2024-09-28] MEDS: Mirtazapine 15 MG TABLET PO (20:26)
[2024-09-28] MEDS: Prazosin HCL 5 MG CAPSULE PO (20:26)
[2024-09-28] MEDS: traZODone HCL 50 MG TABLET 150 MG PO (20:26)
[2024-09-29] MEDS: Omeprazole 20 MG CAPSULE.DR PO (07:03)
[2024-09-29 08:00] VITALS: RESP 18
[2024-09-29 08:45] VITALS: BP 142/83; PULSE 97; RESP 18; TEMP 36.4; O2SAT 98
[2024-09-29] MEDS: OLANZapine 5 MG TABLET PO (08:47)
[2024-09-29] MEDS: cloNIDine HCL 0.2 MG TABLET PO (08:47)
[2024-09-29] MEDS: hydrOXYzine HCL 50 MG TABLET PO (08:47)
[2024-09-29] MEDS: Multivitamin TABLET 1 TAB PO (08:48)
[2024-09-29] MEDS: QUEtiapine Fumarate 50 MG TABLET 150 MG PO (08:48)
[2024-09-29] MEDS: Loperamide HCl 2 MG CAPSULE PO (10:18)
[2024-09-29] MEDS: Magnesium Hydrox/Alum Hydrox 30 ML ORAL.SUSP PO (10:19)
--- NOTE | 2024-09-29 10:27 | P.DS_ITS ---
DS: Providers Provider Date of Service: 09/29/24 Date of admission: 09/26/24 21:10 Date of discharge: 09/29/24 Primary care physician: Clotilde Nguyen MD Attending physician on admission: Pablo Abdul Consults: 09/26/24 21:17 Consult to Hospitalist Routine Comment: Consulting Provider[place] [facility] Reason For Exam: new admit, H&P Attending physician on discharge: Jefferson Vasquez Discharging clinician: Gloria Lott DS: Diagnosis Discharge Diagnosis (1) Depression: Status: Acute (2) Personality disorder: Status: Acute (3) Opioid use disorder, severe, dependence: Status: Acute (4) Cocaine use disorder: Status: Acute DS: Medications Discharge Medications Home Medications: Home Medications ?Medication ?Instructions ?Recorded ?Confirmed buprenorphine 8 mg-naloxone 2 mg 1 film sublingual BID 08/29/24 09/26/24 sublingual film (Suboxone) Previous Rx's ?Medication ?Instructions ?Recorded clonidine HCl 0.2 mg tablet 0.2 mg PO BID 30 days #60 tabs 09/05/24 hydroxyzine HCl 50 mg tablet 50 mg PO BID 30 days #60 tabs 09/05/24 multivitamin (One Daily 1 tab PO DAILY 30 days #30 tabs 09/05/24 Multivitamin tablet) omeprazole 20 mg capsule,delayed 20 mg PO DAILY@0630 30 days #30 09/05/24 release caps prazosin 5 mg capsule 5 mg PO BEDTIME 30 days #30 caps 09/05/24 trazodone 150 mg tablet 150 mg PO BEDTIME 30 days #30 tabs 09/05/24 naloxone 4 mg/actuation nasal 4 mg intranasal Q2M PRN opioid 09/14/24 spray (Narcan) overdose 1 day #2 ea dicyclomine 10 mg capsule 10 mg PO QIDACHS PRN GI spasm #0 09/29/24 caps loperamide 2 mg capsule 2 mg PO Q6H PRN Diarrhea #0 caps 09/29/24 mirtazapine 15 mg tablet 15 mg PO BEDTIME #0 tabs 09/29/24 olanzapine 5 mg tablet 5 mg PO BID #0 tabs 09/29/24 quetiapine 50 mg tablet 150 mg (3 x 50 mg) PO BID #0 tabs 09/29/24 Mental Status Exam Mental Status Exam Narrative: Pt is alert and oriented; behavior is cooperative and calm; dressed in casual attire; eye contact appropriate; Speech is normal rate, volume and not pressured; thought process is organized; Thought content is on tx; denies SI/HI/VH. Data Imaging Diagnostic Imaging Impressions Venous Duplex 09/27/24 14:40 IMPRESSION: No evidence of acute DVT in the right lower extremity. Electronically signed by: Richard Alvarado MD 09/27/2024 03:48 PM EDT RP DS: Summary Hospital Course Hospital Course: [place] [facility] [place], 12 days prior to readmission. he did not go to [place] to be with his aunt as he had planned but rather relapsed to opioid and cocaine use, this time engaging in IVDU, which he reports he had not done before. he stopped his meds and became demoralized and depressed. he self- presented to [facility] ED c/o SI as well as CAH to kill himself. utox was cannabis, cocaine, and fentanyl POS. he reported he had attempted SA via overdose the night prior to presentation. on admission to [facility], pt was calm and cooperative. he endorsed depression and anxiety with SI, SIBI, and AH. comfort meds for opioid and cocaine withdrawal were discussed and prescribed. pt reported since last being on M3 he had moved on to IVDU, which is not something he had been doing previously. informed pt that due to recent serial admissions with drug use and SI, the hospital would move for a section 35 commitment for pt's own safety. this was not pt's preference, but no strong reaction was elicited. pt agreed to restart/continue prior medications regimen. restart prior meds. comfort meds for opioid and cocaine withdrawal. section 35. patient has been informed this is the plan. 09/29/23: Increase Remeron from 7.5 mg hs to 15 mg [id number], anxiety Olanzapine 5 mg po [id number], depression, anxiety Section 35 scheduled for 09/29/24. Continue tx I am going to be Sectioned tomorrow. I know I need it, I can't live on the streets and stay alive. Discussed plan of care. Reports an increase in depressive sx, anxiety, auditory perceptual alterations. Discussed medicine options to address these issues prior to discharge, scheduled for 09/29. Section 35 warrant issued. Pt reports feeling okay and ready to go get treatment ; continues to report feeling anxious and depressed. Pt was picked up by [place] [employer]. Status at Discharge Cognitive/behavioral status at discharge: Patient has insight and demonstrates good judgment in terms of wanting to pursue treatment. Patient has a safety plan that includes presenting to the closest ER or calling 911 if feeling unsafe. Functional status at discharge: independent ambulation Overall status at discharge: patient is progressing back to baseline Time Spent with Patient Time attestation: Total time managing care of this patient today _20___ minutes. Time spent: Less than 30 minutes Discharge Plan Discharge Anticipated Discharge Date/Time: 09/29/24 10:22 Patient Disposition: Home, Self-Care Discharge Diagnosis: MDD, PTSD, opioid use d/o, cocaine use d/o Referrals: Clotilde Baca MD [Primary Care Provider] - 1 Week (Please follow up with your primary care provider after discharge from your program. ) Discharge Medications: New loperamide 2 mg Capsule 2 mg PO Q6H PRN (Reason: Diarrhea) Qty: 0 0RF olanzapine 5 mg Tablet 5 mg PO BID Qty: 0 0RF mirtazapine 15 mg Tablet 15 mg PO BEDTIME Qty: 0 0RF dicyclomine 10 mg Capsule 10 mg PO QIDACHS PRN (Reason: GI spasm) Qty: 0 0RF quetiapine 50 mg Tablet 150 mg PO BID Qty: 0 0RF Continued buprenorphine-naloxone [Suboxone] 8-2 mg film 1 film sublingual BID Rx Instructions: I film in Am, I film in the afternoon omeprazole 20 mg Capsule,Delayed Release(Dr/Ec) 20 mg PO DAILY@0630 30 Days Qty: 30 0RF multivitamin [One Daily Multivitamin] Tablet 1 tab PO DAILY 30 Days Qty: 30 0RF hydroxyzine HCl 50 mg tablet 50 mg PO BID 30 Days Qty: 60 0RF prazosin 5 mg capsule 5 mg PO BEDTIME 30 Days Qty: 30 0RF clonidine HCl 0.2 mg tablet 0.2 mg PO BID 30 Days Qty: 60 0RF trazodone 150 mg tablet 150 mg PO BEDTIME 30 Days Qty: 30 0RF naloxone [Narcan] 4 mg/actuation spray,non-aerosol 4 mg intranasal Q2M PRN (Reason: opioid overdose) 1 Days Qty: 2 0RF Rx Instructions: spray 1 dose into ONE nostril; alternate nostrils w each dose until help arrives Discontinued mirtazapine 7.5 mg tablet 7.5 mg PO BEDTIME 30 Days Qty: 30 0RF quetiapine 300 mg tablet extended release 24 hr 300 mg PO BEDTIME Discharge Orders: Discharge Order (Routine); Ordered 09/29/24 Ordered By: Gloria Lott Diet: Regular diet Activity on Discharge: As tolerated Stand Alone Forms: Patient Portal Discharge page, Community Support Print Language: Ukrainian Care Plan Goals: Maintain mood and safe behaviors Take medications as prescribed Continue to pursue sobriety Practice coping skills Continue with outpatient providers and reach out to them as needed Health Concerns: Mood stability and behaviors Sobriety Plan of Treatment: Follow up with your PCP, psychiatric provider and other outpatient providers regarding above concerns Take medications as prescribed Assessment: Patient has insight and demonstrates good judgment in terms of wanting to pursue treatment. Patient has a safety plan that includes presenting to the closest ER or calling 911 if feeling unsafe. Discharge Date/Time: 09/29/24 11:58
[2024-09-29] MEDS: Naloxone HCl Nasal TAKE HOME 4 MG SPRAY 8 MG NOSTRILALT (10:40)
== END 2024-09-29 11:58 | disposition home or self-care (01) | DRG 754 ==
PROVIDERS: Admitting Provider Psychiatry & Neurology Psychiatry; PCP Internal Medicine; Visit Provider Psychiatry & Neurology Psychiatry
DX: F32.9 Major depressive disorder, single episode, unspecified (principal); E87.1 Hypo-osmolality and hyponatremia; R45.851 Suicidal ideations; F11.20 Opioid dependence, uncomplicated; I10 Essential (primary) hypertension; F60.3 Borderline personality disorder; F14.10 Cocaine abuse, uncomplicated; F43.10 Post-traumatic stress disorder, unspecified; F19.10 Other psychoactive substance abuse, uncomplicated; K21.9 Gastro-esophageal reflux disease without esophagitis; K52.9 Noninfective gastroenteritis and colitis, unspecified; G89.4 Chronic pain syndrome; F17.210 Nicotine dependence, cigarettes, uncomplicated; Z71.6 Tobacco abuse counseling; Z79.899 Other long term (current) drug therapy
CPT/HCPCS: 93971

== ENCOUNTER 2024-09-26 21:10 | Outpatient (BNV) | payer MEDICAID, SELFPAY | END 2024-09-27 14:40 | PROVIDERS: Admitting Provider Psychiatry & Neurology Psychiatry; PCP Internal Medicine; Visit Provider Radiology Diagnostic Radiology | DX: M79.661 Pain in right lower leg (principal) | CPT/HCPCS: 93971 ==

== ENCOUNTER → 2024-09-26 21:10 | Outpatient (BNV) | payer OTHER, SELFPAY | PROVIDERS: Admitting Provider Psychiatry & Neurology Psychiatry; PCP Internal Medicine; Visit Provider Psychiatry & Neurology Psychiatry | DX: F33.2 Major depressive disorder, recurrent severe without psychotic features (principal); F60.9 Personality disorder, unspecified; F14.10 Cocaine abuse, uncomplicated; F11.20 Opioid dependence, uncomplicated | CPT/HCPCS: 99231; 99232; 99233 ==

== ENCOUNTER → 2024-09-26 21:10 | Outpatient (BNV) | payer MEDICAID, SELFPAY | PROVIDERS: Admitting Provider Psychiatry & Neurology Psychiatry; PCP Internal Medicine; Visit Provider Physician Assistant | DX: E87.1 Hypo-osmolality and hyponatremia (principal) | CPT/HCPCS: 99221; 99499 ==

== ENCOUNTER 2024-11-19 06:03 | Emergency (ER) | payer MEDICAID, SELFPAY ==
[2024-11-19 06:11] VITALS: BP 126/69; BP 130/72; PULSE 80; PULSE 90; RESP 16; TEMP 36.5; O2SAT 96; O2SAT 99; BMI 21.0
--- NOTE | 2024-11-19 06:16 | MHC.EDTECH ---
Pt belongings is in the [facility] shelf 3
--- NOTE | 2024-11-19 06:26 | ECG_ITS ---
Test Reason : etoh Blood Pressure : */* mmHG Vent. Rate : 61 BPM Atrial Rate : 61 BPM P-R Int : 142 ms QRS Dur : 96 ms QT Int : 428 ms P-R-T Axes : 52 12 38 degrees QTcB Int : 430 ms Normal sinus rhythm Normal ECG When compared with ECG of 11-Sep-2024 08:49, No significant change was found Referred By: Odalys Gamble Electronically Signed By: Alvaro Schulte
--- OUTSIDE RECORDS SUMMARY | 2024-11-19 06:42 | XMS_ITS | Clinical Summary ---
Author Organization [facility] ity Address [address] [place] [address] Care Team Providers Care Supervisor Bindery Name Role Phone Unavailable Primary Care Provider Unavailabl e Social History Tobacco Use Types Packs/Day Years Used Date Smoking Tobacco: Never Assessed Sex and Gender Information Value Date Recorded Sex Assigned at Not on file Legal Sex Male 9:43 AM EST Gender Identity Not on file Sexual Orientation Not on file Plan of Treatment Health Maintenance Due Date Last Done Comments DTaP,Tdap,and Td Vaccines (1 - Tdap) 01/13/1992 Hepatitis B Vaccines (1 of 3 - 19+ 3-dose series) 01/13/1992 Cholesterol Screening (Lipid Panel) 03/24/2022 Colorectal Cancer Screening: Colonoscopy 03/24/2022 HIV Screening 03/24/2022 Hepatitis C Screening 03/24/2022 Social Influencers of Health Screening 03/24/2022 Pneumococcal Vaccine: 50+ Ye ars (1 of 1 - PCV) 2023 Zoster Vaccines (1 of 2) 2023 COVID-19 Vaccine (1 - 2023-2 5 season) 2023 Depression Screening 04/26/2024 Influenza Vaccine (#1) 2024 HIB Vaccines Aged Out No longer eligi [...] patient's age to complete this topic Meningococcal B Vaccine Aged Out No l onger eligible based on patient's age to complete this topic RSV Immunization Patients Un kunal 20 months Aged Out No longer eligible b ased on patient's age to complete this topic Varicella Vaccines Aged Out No longer eligible based on patient's age to complete this topic Advance Directives Documents on File Type Date Recorded 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
--- OUTSIDE RECORDS SUMMARY | 2024-11-19 06:43 | XMS_ITS | Clinical Summary ---
Author Organization [facility], Address [address] [place] [address] [place] [address] Phone Care Team Providers Care Mechanical Technical Service Specialist Name Role Phone Clotilde Baca MD Primary Care Provide r Medications Acetaminophen Extra Strength 500 MG tablet 12/17/2020 Active amLODIPine (NORVASC) 5 MG tablet 02/21/2021 Active buPROPion XL (WELLBUTRIN XL) 150 MG 24 hr tablet 02/12/2021 Active buPROPion XL (WELLBUTRIN XL) 300 MG 24 hr tablet 02/08/2021 Active chlorthalidone (HYGROTON) 50 MG tablet 01/22/2021 Active docusate sodium (COLACE) 100 MG capsule 02/05/2021 Active doxycycline (VIBRA-TABS) 100 MG tablet 12/03/2020 Active famotidine (PEPCID) 20 MG tablet 01/15/2021 Active ibuprofen (ADVIL,MOTRIN) 600 MG tablet 12/17/2020 Active ibuprofen (ADVIL,MOTRIN) 800 MG tablet 12/03/2020 Active lisinopril 40 MG tablet 01/22/2021 Active Amitiza 24 MCG capsule 12/19/2020 Active mirtazapine (REMERON) 7.5 MG tablet 02/05/2021 Active naltrexone (DEPADE) 50 MG tablet 02/20/2021 Active oxyCODONE (ROXICODONE) 5 MG immediate release tablet 12/03/2020 Active QUEtiapine (SEROquel) 100 MG tablet 12/05/2020 Active QUEtiapine (SEROquel) 200 MG tablet 02/14/2021 Active QUEtiapine (SEROquel) 50 MG tablet 02/14/2021 Active Senexon-S 8.6-50 MG per tablet 02/11/2021 Activ e tamsulosin (FLOMAX) 0.4 MG 24 hr capsule 02/10/2021 Active traZODone (DESYREL) 50 MG tablet 02/05/2021 Active Active Problems Problem Noted Date Diagnosed Date Acute kidney injury due to trauma 03/11/2021 Hypertension 03/11/2021 Personal history of kidney stones 03/11/2021 Social History Tobacco Use Types Packs/Day Years Used Date Smoking Tobacco: Never Assessed Sex and Gender Information Value Date Recorded Sex Assigned at Not on file Legal Sex Male 9:14 PM EDT Gender Identity Not on file Sexual Orientation Not on file Plan of Treatment Health Maintenance Due Date Last Done Comments Hepatitis B Vaccine (1 of 3 - 19+ 3-dose series) 01/12 Pneumococcal Vaccine: 50+ Years (1 of 2 - PCV) 992 Colorectal Cancer Screening: Annual FOBT 2022 Colorectal Cancer Screening: Colonoscopy 2022 Colorectal Cancer Screening: Sigmoidoscopy 2022 Influenza Vaccine (#1) 2024 Insurance Medicaid [place] Care Teams Mechanical Technical Service Specialist Relationship Specialty Start Date End Date Clotilde Baca MD PCP - General Internal Medicine 02/12/21
--- NOTE | 2024-11-19 07:04 | PC.NURSE ---
Poison Prevention contacted, spoke to Suellen who advised us to perform initial EKG with repeat EKG in 4 hrs, if \QTC prolongation noted on initial EKG, erapt EKG in 2 hrs. Draw labs for CBC with diff, chem, Mg, Ethanol, Salicylates, Acetaminophen, collect urine for toxicology, repeat Tylenol, Salycylates, chem, Mg in 4 hr. If Mag level <2, replete, K <4, supplement with oral K. Monitor patient for bradycardia, hypotension, seizure activity.
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
[2024-11-19 07:18] LABS: Cannabinoid Screen Urine POSITIVE (Not Detect)
[2024-11-19] MEDS: methADONE HCl 20 MG/2 ML ORAL.CONC 10 MG PO ×2 (07:51→15:58)
--- NOTE | 2024-11-19 08:43 | PC.NURSE ---
Call received from Myla with Poison Control inquiring about an update. Review of EKG and toxicology results completed. No additional orders/recommendations received from Myla at this time. Myla reports she will be in touch again this AM for further update on Pts progress.
--- NOTE | 2024-11-19 09:07 | MHC.EDTECH ---
Attempted to obtain labs for pt that were due at 0630 today. Unable to obtain all of the labs. Per Provider Tye, the rest can be obtained at 1100.
[2024-11-19 10:14] LABS: Alanine Aminotransferase 21 U/L (0-40); Albumin Level 5.5 g/dL (3.5-5.0); Alkaline Phosphatase 109 U/L (39-117); Anion Gap 15 (12-20); Aspartate Amino Transferase 63 U/L (5-37); Blood Urea Nitrogen 41 mg/dL (9-16); Calcium 10.0 mg/dL (8.4-10.2); Carbon Dioxide 24 mmol/L (22-29); Chloride 102 mmol/L (96-108); Creatinine Clr Calc Pharmacy 54.1; Estimated Glomerular Filt Rate 47; Magnesium 2.5 mg/dL (1.6-2.6); Potassium 3.5 mmol/L (3.3-5.1); Sodium 137 mmol/L (135-145); Total Protein 9.8 g/dL (6.5-8.0)
[2024-11-19 10:18] LABS: Acetaminophen LAB < 3 mcg/mL (<30); Salicylate < 5.0 mg/dL (15-30)
[2024-11-19 10:22] LABS: Troponin-I High Sensitivity 5.0 ng/L (<3.5-35.0)
--- NOTE | 2024-11-19 10:51 | PC.NURSE ---
Call received from Pao with Poison Control inquiring about an update. Review of Chemistry results completed and advised Pt is due for additional/follow up lab work as Pt is a difficult stick. Pao offers no additional recommendations at his time and states will follow up later this afternoon.
--- NOTE | 2024-11-19 11:00 | ECG_ITS ---
Test Reason : etoh Blood Pressure : */* mmHG Vent. Rate : 60 BPM Atrial Rate : 60 BPM P-R Int : 156 ms QRS Dur : 94 ms QT Int : 428 ms P-R-T Axes : 39 5 29 degrees QTcB Int : 428 ms Normal sinus rhythm Minimal voltage criteria for LVH, may be normal variant ( R in aVL ) Borderline ECG When compared with ECG of 19-Nov-2024 07:43, No significant change was found Referred By: Odalys Gamble Electronically Signed By: FERNANDA JUSTICE MD
--- NOTE | 2024-11-19 11:21 | PC.NURSE ---
Addendum entered by Vivienne Knox RN 11/19/24 11:25: RN to RN completed with Hannah for Pts relocation to pod. Pt will be going to bed 4. Original Note: computer forensic examiner reports blood draw attempted x2 d/t difficult stick with no success and Pt is now refusing further blood draw attempts. Dr. Gamble made aware. Repeat EKG completed. Verbal orders received from Dr. Gamble that Pt is now medically cleared at this time. Pt will be moved to pod pending Care Team evaluation.
--- NOTE | 2024-11-19 11:22 | MHC.EDTECH ---
tried taking blood work on pt was not able to asked another tech (Toranni) was unable to collect very hard stick, pt refused any more pokes for blood work. SAROJ zelaya.
[2024-11-19 11:30] VITALS: BP 131/82; PULSE 67; RESP 26; O2SAT 99
--- NOTE | 2024-11-19 11:42 | PC.NURSE ---
RE: med rec This RN completed med rec with patient. Patient able to verbally verify all meds but does report that it has been approximately 1 week since he took his meds. He also reports that he stopped taking his suboxone completely. Pt able to verbally verify medications, dosages, and timing
[2024-11-19 13:11] LABS: Appearance Urine Clear; Glucose Urine UA Negative (Negative); PH 6.0 (5.0-9.0); Specific Gravity - Urine 1.025 (1.005-1.025); UMIC TRIGGER UA YES
[2024-11-19 17:30] VITALS: BP 154/86; PULSE 63; RESP 18; TEMP 37.1; O2SAT 100
--- NOTE | 2024-11-19 18:28 | MHC.CARE ---
Pt accepted to [facility] for 11/[address] Al[address]so [address] [place] [address] [phone]
[2024-11-19 21:10] VITALS: RESP 14
--- NOTE | 2024-11-20 03:35 | PC.NURSE ---
Assumed care of pt from Ana KYLE at 0300. Pt resting in bed, no apparent distress at this time. Safety checks in place.
--- NOTE | 2024-11-20 06:58 | MHC.EDTECH ---
patient refused morning labs, rn aware
[2024-11-20] MEDS: methADONE HCl 20 MG/2 ML ORAL.CONC 10 MG PO (07:02)
--- NOTE | 2024-11-20 09:46 | MHC.EDTECH ---
Patient refusing to allow vital signs to be checked at this time. RN aware
--- NOTE | 2024-11-20 10:21 | PC.NURSE ---
assumed care of patient at 0645, patient medicated per JUN, stated he was having diarrhea, medicated with prn. patient is calm, cooperative and polite.
--- NOTE | 2024-11-20 11:24 | PHA.MEDREC ---
Addendum entered by Herman Chappell RP 11/20/24 11:47: Reviewed by [facility] Original Note: Pharmacy Consult ? Medication Reconciliation Pharmacy has reviewed the medication reconciliation done by nursing. Patient has a history of being non compliant with his medication. last fill date for medications is 09/05/24 for 30 days. patient has multiple admissions.
[2024-11-20] MEDS: Nicotine 21 MG PATCH.TD24 TRANSDERMA (12:13)
== END 2024-11-20 14:38 ==
PROVIDERS: Emergency Provider Emergency Medicine; PCP Internal Medicine
DX: F33.1 Major depressive disorder, recurrent, moderate (principal); R45.851 Suicidal ideations; F11.24 Opioid dependence with opioid-induced mood disorder; E86.0 Dehydration; I10 Essential (primary) hypertension; Z51.81 Encounter for therapeutic drug level monitoring; F17.210 Nicotine dependence, cigarettes, uncomplicated; Z79.899 Other long term (current) drug therapy
CPT/HCPCS: 36415; 80053; 80143; 80179; 80307; 81001; 81003; 82248; 83735; 84484; 93005; 99285; S9485

== ENCOUNTER → 2024-11-19 06:26 | Outpatient (BNV) | payer MEDICAID, SELFPAY | PROVIDERS: Emergency Provider Emergency Medicine; PCP Internal Medicine; Visit Provider Internal Medicine Cardiovascular Disease | DX: F10.90 Alcohol use, unspecified, uncomplicated (principal) | CPT/HCPCS: 93010 ==

== ENCOUNTER 2025-03-28 07:05 | Emergency (ER) | payer MEDICAID, SELFPAY ==
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
[2025-03-28 07:30] VITALS: BP 200/100; PULSE 70; O2SAT 100
--- NOTE | 2025-03-28 07:33 | ECG_ITS ---
Test Reason : ETOH Blood Pressure : */* mmHG Vent. Rate : 51 BPM Atrial Rate : 51 BPM P-R Int : 128 ms QRS Dur : 96 ms QT Int : 464 ms P-R-T Axes : 79 77 79 degrees QTcB Int : 427 ms Sinus bradycardia Possible Left atrial enlargement Borderline ECG When compared with ECG of 19-Nov-2024 11:13, Questionable change in QRS axis Nonspecific T wave abnormality no longer evident in Inferior leads T wave amplitude has increased in Anterior leads Referred By: Ara Flores Electronically Signed By: FERMÍN SANTACRUZ
[2025-03-28 07:38] VITALS: BP 154/73; PULSE 56; RESP 16; TEMP 36.6; O2SAT 100; BMI 18.0
--- NOTE | 2025-03-28 08:09 | HE.PHANOTE ---
METHADONE CONFIRMATION SHEET PATIENT TAKES 120MG FROM [facility]. LAST DOSE 120MG 03/26 WITH 03/27 DOSE GIVEN TAKE HOME. LAST TAKEN 03/27 AT HOME
[2025-03-28 09:49] LABS: Appearance Urine Clear; Glucose Urine UA Negative (Negative); PH 5.0 (5.0-9.0); Specific Gravity - Urine 1.010 (1.005-1.025); UMIC TRIGGER UACC YES
[2025-03-28 09:57] LABS: Hematocrit 38.9 % (42.0-52.0); Hemoglobin 12.8 g/dl (14.0-18.0); Imm Gran Abs Auto 0.02 X10*3/uL (0.00-0.03); Imm Gran Pct Auto 0.3 % (0.0-0.4); Lymphocytes Absolute Auto 1.0 X10*3/uL (1.2-4.9); MANUAL DIFF FLAG SCAN; Mean Corpuscular HGB Conc 32.9 g/dl (31.0-36.0); Mean Corpuscular Hemoglobin 28.3 pg (27.0-33.0); Mean Corpuscular Volume 86.1 fL (80.0-98.0); NRBC Abs Auto 0.000 X10*3/uL (0.0-0.012); NRBC Pct Auto 0.0 /100WBC (0.0-0.2); PLT CLUMP 1; Red Blood Count 4.52 X10*6/uL (4.60-5.80); SCAN SMEAR FLAG 1
[2025-03-28 09:59] LABS: Cannabinoid Screen Urine Not Detected (Not Detect)
--- NOTE | 2025-03-28 10:01 | PC.NURSE ---
Since arrival to ED, pt resting comfortably on stretcher with respirations equal/unlabored. Pt has been calm/cooperative with care. Pt has not been responding to any internal stimuli.
[2025-03-28 10:02] LABS: UACC Culture Trigger YES
[2025-03-28 10:04] LABS: Alanine Aminotransferase 48 U/L (0-40); Albumin Level 4.6 g/dL (3.5-5.0); Alkaline Phosphatase 83 U/L (39-117); Anion Gap 17 (12-20); Aspartate Amino Transferase 74 U/L (5-37); Blood Urea Nitrogen 27 mg/dL (9-16); Calcium 9.8 mg/dL (8.4-10.2); Carbon Dioxide 20 mmol/L (22-29); Chloride 105 mmol/L (96-108); Creatinine Clr Calc Pharmacy 83.9; Estimated Glomerular Filt Rate > 60; Magnesium 1.8 mg/dL (1.6-2.6); Potassium 4.5 mmol/L (3.3-5.1); Sodium 137 mmol/L (135-145); Total Protein 8.0 g/dL (6.5-8.0)
[2025-03-28 10:09] LABS: Troponin-I High Sensitivity 9.2 ng/L (<3.5-35.0)
--- OUTSIDE RECORDS SUMMARY | 2025-03-28 10:17 | XMS_ITS | Clinical Summary ---
Author Organization [facility] Address [address] [place] [address] Care Team Providers Care Regional Ehs Manager Name Role Phone Clotilde Baca MD Primary [...] Date Smoking Tobacco: Every Day Cigarettes 1 36.2 Started: 12/28/1988 Smokeless Tobacco: Never Tobacco Cessation:Ready to Q uit: Not Asked; Counseling Given: Not Answered Alcohol Use Standard Drinks/Week Comments Not Currently 0 (1 standard drink = 0.6 oz pur e alcohol) Sex and Gender Information Value Date Recorded Sex Assigned at Male 08/11/2024 12:23 PM EDT Legal Sex Male 1:57 PM EDT Gender Identity Male 12/13/2024 10:39 AM EDT Sexual Orientation Not on file Last Filed Vital Signs Vital Sign Reading Time Taken Comments Blood Pressure 116/76 12/13/2024 10:20 AM EDT Pulse 84 12/13/2024 10:20 AM EDT Temperature 36.8 C (98.2 F) 12/13/2024 10:20 AM EDT Respiratory Rate 16 12/13/2024 10:20 AM EDT Oxygen Saturation 99% 12/13/2024 10:20 AM EDT Inhaled Oxygen Concentration - - Weight 79.4 kg (175 lb) 12/13/2024 10:20 AM EDT Height 180.3 cm (5' 11 ) 12/13/2024 10:20 AM EDT Body Mass Index 24.41 12/13/2024 10:20 AM EDT Plan of Treatment Health Maintenance Due Date Last Done Comments Cologuard 1975 Colon Cancer Screening 1975 Colonoscopy 1973 FOBT / Fit Test 1975 HIV Screening 1975 Sigmoidoscopy 1973 Hepatitis B Vaccines (1 of 3 - 19+ 3-dose series) 01/13/1992 DTaP,Tdap,and Td Vaccines (1 - Tdap) 01/19/201912/26, 09/28/2016 Pneumococcal Vaccine: 50+ Ye ars (1 of 1 - PCV) 2023 Zoster Vaccines (1 of 2) 2023 Alcohol/Substance Use Screening 04/26/2024 Influenza Vaccine (#1) 2024 07/06/2021 COVID-19 Vaccine (3 - 2024- season) 12/25/202406/2020, 05/29/2020 [place] [facility] Advance Directives Documents on File Type Date Recorded Patient Anesthesiology Technologist Expl anation MOLST/POLST 01/13/2019 2:43 PM 12/01/18 Health Care Proxy [...] 3:55 PM 01/13/2019 3:32 PM Care Teams Regional Ehs Manager Relationship Specialty Start Date End Date Clotilde Baca MD [address] [place] [address] PCP - General Internal Medicine 08/11/24
--- OUTSIDE RECORDS SUMMARY | 2025-03-28 10:17 | XMS_ITS | Clinical Summary ---
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
--- OUTSIDE RECORDS SUMMARY | 2025-03-28 10:17 | XMS_ITS ---
Author Organization [facility] Care Team Providers Care Blueprint Processor Name Role Phone FRANKY OAKLEY Unavailable Unavailable Allergies and adverse reactions No Known Allergies Care Team Name Role Address Phone Organization Dates FRANKY OAKLEY PCP [address], [facility], [facility] (Office): : [facility] 12/01/2018 - 01/15/2019 Mental Status Section Date Assessment Total Score Description 12/27/2018 CAM 0 No delirium ind icated 12/08/2018 BIMS 15 cognitively int act CAM 0 No delirium ind icated PHQ-9 02 minimal depress ion Insurance Providers Coverage Status Coverage Type Relationship to Subscriber Member Identifier Subscriber Identifier Group Identifier Payer Identifier and Other information 2018 Code: 2 Code System OID:[id number] [id number]. 3.221.5 Code System Name: Source of Payment Typology (PHDSC) Display: Medicaid Translation : Code: 48 Code System: OID:[id number] 0.1.153577. 6.255.1336 Code System Name: Insurance Type Code ([id number]) Display Name: Medicaid Code: SELF Code System Name: HL7 RoleCode Code System OID:[id number] .[id number] Display Name: Self [id number] Root: [id number] Payer Name: [place] Address: [address] [place] [address] City: [place] State: [place] Country: [place] Code: 81 Code System OID:[id number] [id number]. 3.221.5 Code System Name: Source of Payment Typology (PHDSC) Display: Self Pay Translation : Code: 09 Code System: OID:2.16.84 0.1.454657. 6.255.1336 Code System Name: Insurance Type Code ([id number]) Display Name: Self-pay Problems Problem # Description Date of onset Resolved Date Code CodeSystem Concern Status 1 MAJOR DEPRESSIVE DISORDER, RECURRENT, SEVERE WITH PSYCHOTIC SYMPTOMS 12/19/[address] active 2 ABSCESS OF TENDON SHEATH, RIGHT LOWER LEG 12/01/[address] active 3 BACTEREMIA 12/01/[address] active 4 CHRONIC VIRAL HEPATITIS C 12/01/[address] active 5 CUTANEOUS ABSCESS OF RIGHT LOWER LIMB 12/01/[address] active 6 OPIOID ABUSE, UNCOMPLICATED 12/01/[address] active 7 OPIOID DEPENDENCE WITH WITHDRAWAL 12/01/[address] active 8 OTHER PSYCHOACTIVE SUBSTANCE ABUSE, UNCOMPLICATED 12/01/[address] active 9 SUICIDAL IDEATIONS 12/01/[address] active 10 UNSPECIFIED VIRAL HEPATITIS B WITHOUT HEPATIC COMA 12/01/[address] active 11 VIRAL ENDOCARDITIS 12/01/2018 790422533 SNOMED C T active Reason for Referral No Reasons for Referral Entered Social History Social History Observation Description Start Date End Date Code Code System Current Smoking Status Tobacco smoking consumption unknown 221920877 SNOMED CT Sex Assigned At Male 1975 02863-1 LOINC Gender Identity Sexual Orientation Vital Signs Code Code System Vitals Name Values and Units Timing Information 9279-1 LOINC Respiratory Rate Value=18.0 Units=/m in 12/27/2018 8462-4 LOINC Blood Pressure-Diastolic Value=68 Un its=mmHg 12/27/2018 8480-6 LOINC Blood Pressure-Systolic Wocgy=201 Un its=mmHg 12/27/2018 8310-5 LOINC Body Temperature Value=98.6 Units= F 12/27/2018 8867-4 LOINC Heart rate Value=90.0 Units=/min 06/2018 86795-8 [facility] O2 % BldC Oximetry Value=97.0 Units= % 12/27/2018 48152-3 [facility] Pain Level Value=0.0 12/27/2018 52689-7 [facility] Weight Rexup=410.0 Units=Lbs 8302-2 [facility] Height Value=71.0 Units=Inches 12/01/2018
[2025-03-28 10:30] LABS: Platelet Count 248 X10*3/uL (160-400); White Blood Count 6.4 X10*3/uL (4.8-10.8)
[2025-03-28 10:36] LABS: Resp Syncy Virus RNA Qual PCR NEGATIVE (Negative); SARS COV2 PCR INHOUSE NEGATIVE (Negative)
--- NOTE | 2025-03-28 11:11 | MHC.EDTECH ---
Personal belongings removed from [facility] port and moved to locker 8. 5 bags total, 2 backpacks and 3 hospital bel bags.
[2025-03-28] MEDS: methADONE HCl 20 MG/2 ML ORAL.CONC 120 MG PO (12:43)
--- NOTE | 2025-03-28 13:26 | MHC.CARE ---
He has been accepted to [facility] for today, located @ [address] [facility], [address]. ETA is 4pm and the accepting provider is Dr. Tellez. N2N is not needed. RN & Care Team notified .
[2025-03-28 14:00] VITALS: BP 146/92; PULSE 99; RESP 18; TEMP 37.3; O2SAT 99
[2025-03-28 14:11] VITALS: BP 146/92; PULSE 99; RESP 18; TEMP 37.3; O2SAT 99
== END 2025-03-28 14:13 ==
PROVIDERS: Registered Nurse Emergency; Emergency Provider Emergency Medicine
DX: F14.10 Cocaine abuse, uncomplicated (principal); R45.851 Suicidal ideations; F11.10 Opioid abuse, uncomplicated; I10 Essential (primary) hypertension; B19.20 Unspecified viral hepatitis C without hepatic coma; Z72.0 Tobacco use; Z59.00 Homelessness unspecified
CPT/HCPCS: 80053; 80307; 81001; 82550; 83735; 84484; 85025; 87086; 87637; 93005; 99285; S9485

== ENCOUNTER → 2025-03-28 07:33 | Outpatient (BNV) | payer MEDICAID, SELFPAY | PROVIDERS: Emergency Provider Emergency Medicine; Visit Provider Internal Medicine | DX: R00.1 Bradycardia, unspecified (principal) | CPT/HCPCS: 93010 ==